=== PATIENT | female | born 1955 | race Caucasian/White ===

== ENCOUNTER 2024-03-07 19:23 | Inpatient (IN) | payer MEDICARE, MEDICAID, SELFPAY ==
[2024-03-07] VITALS (7 sets, daily range): BP systolic 155–200; BP diastolic 87–102; PULSE 74–85; RESP 15–18; TEMP 36.4–36.8; O2SAT 95–98; BMI 22.8
--- NOTE | 2024-03-07 19:53 | EDS_ITS ---
HPI History of Present Illness Chief Complaint: Fall Detail of Chief Complaint: Fall with left leg injury Informant: patient Narrative Narrative: Patient presents to the emergency department via EMS from home after falling off of about a 3 foot ladder while she was trying to hang up some curtain anders holders. Patient states that she pushed off a dresser so she would not hit her head and fell with her weight on her left leg injuring it. Denies striking her head or loss of consciousness. Denies neck pain. Nuys chest pain or shortness of breath. Denies any other complaints. Patient had surgery on her left hip after a fracture in [place] 4 years ago. She does not have a primary care physician. [facility] Medical History (Updated 03/07/24 @ 21:[address] Isela Isaac, ) Hip fracture, left Varicose vein of leg Carotid arterial disease Hypertension Home Medications ?Medication ?Instructions ?Recorded ?Last Taken ?Type amlodipine 10 mg tablet 10 mg PO DAILY 03/07/24 Unknown History aspirin 81 mg capsule 81 mg PO DAILY 03/07/24 Unknown History atorvastatin 80 mg tablet 80 mg PO DAILY 03/07/24 Unknown History levothyroxine 100 mcg tablet 100 mcg PO DAILY 03/07/24 Unknown History Allergy/AdvReac Type Severity Reaction Status Date / Time No Known Allergies Allergy Verified 03/07/24 19:25 Social History Smoking Status: Current every day smoker tobacco type: cigarettes ROS ROS ED Review of Systems ROS Unobtainable: other Constitutional Constitutional ED: Reports lethargy; Denies chills, fever(s), sweats or weight loss Eyes Eyes: Denies blurry vision, change in vision or diplopia ENT ENT ED: Denies rhinorrhea or sore throat Cardiovascular Cardiovascular: Denies chest pain, orthopnea or racing heartbeat Respiratory/Chest Respiratory/Chest: Denies cough, dyspnea, dyspnea on exertion, orthopnea or sputum Gastrointestinal Gastrointestinal: Denies abdominal pain, diarrhea, nausea or vomiting Genitourinary Genitourinary ED: Denies dysuria, hematuria or urinary frequency Musculoskeletal Musculoskeletal: Reports other Details: Left leg pain/injury ; Denies arthralgias, back pain, myalgias or neck pain Integumentary Denies abscess, Abrasions or rash Neurologic Neurologic: Denies headache(s) or weakness Psychiatric Psychiatric: Denies anxiety, depression or suicidal thoughts Endocrine Endocrinology: Denies polydipsia, polyphagia or polyuria Hematologic/Lymphatic Hematologic/Lymphatic: Denies easy bleeding, easy bruising or lymphadenopathy Allergic/Immunologic Allergic/Immunologic ED: Denies mouth swelling, tongue swelling or urticaria EXAM Physical Exam Const Vital Signs: 03/07/24 19:24 03/07/24 19:24 03/07/24 20:24 Temperature 98.3 F Temperature Source Temporal Pulse Rate 81 75 Respiratory Rate 16 18 Respiratory Effort Normal Non-Labored Respiratory Depth Normal Respiratory Pattern Normal Blood Pressure 172/100 H 200/102 H Blood Pressure Mean 124 134 Pulse Ox 98 98 Oxygen Delivery Method Room Air Room Air Room Air 03/07/24 21:00 03/07/24 21:07 Temperature 97.8 F Temperature Source Pulse Rate 85 85 Respiratory Rate 16 16 Respiratory Effort Respiratory Depth Respiratory Pattern Blood Pressure 176/97 H 176/97 H Blood Pressure Mean 123 123 Pulse Ox 97 95 Oxygen Delivery Method Room Air Positive well nourished and well developed General Appearance ED: well developed and NAD HEENT Reports TM's clear and moist mucous membranes normocephalic and atraumatic; Negative for trauma or tenderness Tympanic Membrane ED: Yes TM's clear Eyes PERRL and EOMs intact bilaterally General Eye ED: Negative for pale conjunctiva or scleral icterus Neck no lymphadenopathy, supple and no JVD General: Negative for tenderness Chest Wall inspection of chest normal and palpation of chest normal Chest: Negative for tenderness Resp normal respiratory effort and clear to auscultation bilaterally Effort and Inspection: Negative for respiratory distress or pain with movement Auscultation: Negative for rhonchi, wheezes or diminished lung sounds Cardio regular rate, regular rhythm, S1 normal heart sound, S2 normal heart sound and no murmurs Peripheral Pulses: pulses 2+ throughout GI normal to inspection, nondistended, normoactive bowel sounds, soft to palpation, non-tender, non-distended and no masses Back/Spine no CVA tenderness and no thoracic nor lumbar tenderness Extremity Extremity Narrative: Left lower extremity-patient presents with a air splint on the left lower extremity. I removed the splint. She describes the pain is below the left knee. I do not appreciate any obvious deformity. There is no broken skin. She is able to flex and extend the knee. She has some mild tenderness over the proximal tibia. Neurovascularly intact distally. No pain at the hip. General Extremety ED: Negative for edema General Extremity: Negative for edema Neuro oriented x3, CN's II-XII intact bilaterally, no sensory deficits noted and gait normal Sensorium / Orientation: awake, alert, oriented to person, oriented to place and oriented to time Motor Exam: strength 5/5 throughout and strength abnormal Psych mental status grossly normal Skin no rashes or lesions noted and no wounds MDM MDM MDM Narrative Medical decision making narrative: Patient with a low level fall about 3 feet from a ladder with injury to left leg. No head injury. No loss of consciousness. Not anticoagulated. Patient had x-rays initially of the left knee and left tib-fib which showed a tibial plateau fracture and proximal fibula fracture. Discussed results with patient. Discussed with orthopedics Dr. Lin. Discussed with hospitalist will evaluate patient for admission as patient does not feel she can manage at home with crutches. Dr. Lin will consult. Will place patient in knee immobilizer and manage pain. Will obtain basic labs and EKG. Lab Data Attestation: I reviewed the patient's lab results. Labs: Laboratory Results - last 24 hr 03/07/24 21:35 WBC 9.2 RBC 5.46 H Hgb 17.1 H Hct 51.2 H MCV 93.8 MCH 31.3 MCHC 33.4 RDW Std Deviation 45.8 H RDW Coeff of Luis 13.3 Plt Count 311 MPV 8.9 Immature Gran % (Auto) 0.300 Neut % (Auto) 73.5 H Lymph % (Auto) 15.7 L Glascock % (Auto) 8.1 Eos % (Auto) 1.3 Baso % (Auto) 1.1 H Absolute Neuts (auto) 6.8 Absolute Lymphs (auto) 1.44 Nucleated RBC % 0 Radiography Diagnostic Testing: Clinical Impression(s) from Imaging Studies Knee X-Ray 03/07/24 20:09 IMPRESSION: 1. Comminuted intra-articular fracture of the lateral tibial plateau with moderate articular surface incongruity. Fracture appears view extending to the median aspect of the medial tibial plateau as well. 2. Lateral hemarthrosis. 3. Apparently comminuted fracture of the proximal fibula. Electronically Signed: Oral Dennison DO at 20:33 EDT , Tibia/Fibula X-Ray 03/07/24 20:09 IMPRESSION: 1. Comminuted intra-articular fracture of the lateral tibial plateau with moderate articular surface incongruity. Fracture appears view extending to the median aspect of the medial tibial plateau as well. 2. Lateral hemarthrosis. 3. Apparently comminuted fracture of the proximal fibula. Electronically Signed: Oral Dennison DO at 20:32 EDT , 4 view x-rays of the left knee obtained shows lateral tibial plateau fracture and proximal fibula fracture on my interpretation. Radiology in agreement. 2 view x-rays of the left tib-fib obtained interpreted by myself as tibial plateau fracture and proximal fibula fracture. EKG Initial EKG: Attestation: I personally reviewed and interpreted this EKG as follows: Comments: Sinus rhythm with rate of [address] changes Discharge Plan Dx/Rx/DC Orders Clinical Impression: Fall, Fracture of left tibial plateau, Fracture of fibula, proximal Disposition Disposition: Acute Care Hospital [facility]
--- NOTE | 2024-03-07 20:09 | RAD_ITS ---
EXAM: XR LEFT TIBIA AND FIBULA, 2 VIEWS CLINICAL INDICATION: injury pain. TECHNIQUE: Frontal and lateral views of the left tibia and fibula. COMPARISON: Knee radiograph on the same date. FINDINGS: BONES/JOINTS: Comminuted intra-articular fracture of the lateral tibial plateau with moderate articular surface incongruity. Fracture appears view extending to the median aspect of the medial tibial plateau as well. Lateral hemarthrosis. Apparently comminuted fracture of the proximal fibula. No sclerotic or destructive changes observed. SOFT TISSUES: Diffuse periarticular soft tissue swelling. No radiopaque foreign body. RAD/Tibia & Fibula 2 Views IMPRESSION: 1. Comminuted intra-articular fracture of the lateral tibial plateau with moderate articular surface incongruity. Fracture appears view extending to the median aspect of the medial tibial plateau as well. 2. Lateral hemarthrosis. 3. Apparently comminuted fracture of the proximal fibula. Electronically Signed: Oral Dennison DO at 20:32 EDT ,
--- NOTE | 2024-03-07 20:09 | RAD_ITS ---
EXAM: XR LEFT KNEE, 1 OR 2 VIEWS CLINICAL INDICATION: injury pain. TECHNIQUE: Frontal and/or lateral views of the left knee. COMPARISON: Leg on the same date. FINDINGS: BONES/JOINTS: Comminuted intra-articular fracture of the lateral tibial plateau with moderate articular surface incongruity. Fracture appears view extending to the median aspect of the medial tibial plateau as well. Lateral hemarthrosis. Apparently comminuted fracture of the proximal fibula. No sclerotic or destructive changes observed. SOFT TISSUES: Diffuse periarticular soft tissue swelling. No radiopaque foreign body. RAD/Knee 1 or 2 Views IMPRESSION: 1. Comminuted intra-articular fracture of the lateral tibial plateau with moderate articular surface incongruity. Fracture appears view extending to the median aspect of the medial tibial plateau as well. 2. Lateral hemarthrosis. 3. Apparently comminuted fracture of the proximal fibula. Electronically Signed: Oral Dennison DO at 20:33 EDT ,
--- NOTE | 2024-03-07 21:22 | HP.PCM.HOS_ITS ---
HPI - General General Date of Admission: 03/07/24 Date of Service: 03/07/24 Chief Complaint: Fall, left leg pain. HPI Narrative The patient is a 68 y/o F w/ PMHx: Tobacco use, HTN, HLD, Hypothyroidism, Carotid disease status post right CEA who presents to the [facility] ED on 03/07/24 with history of unfortunately falling off approximately 3 foot ladder while trying to hang a curtain rods reportedly pushing off of the dresser so that she would not hit her head with her weight unfortunately landing primarily on her left leg with no head trauma or loss of consciousness however given ongoing persistent pain prompted ED evaluation. She does report previous history of surgery on her left hip after a fracture remotely 4 years ago in [place]. She denies having any primary care physician and does not take any medications. Patient reports discomfort currently at rest following morphine 4-5 out of 10 in severity of a previous 10 out of 10 especially with any movement, aching throbbing and sharp at the same time. Workup in the ED included T97.8, heart rate 85, BP 176/97, respiratory rate 16, 95% room air, plain film of the left knee with a comminuted intra-articular fracture of the lateral tibial plateau with moderate articular surface incongruity with the fracture extending to the medial aspect of the medial tibial plateau as well, lateral hemarthroses, apparently comminuted fracture of the proximal fibula, plain film of the left tibia and fibula confirming this as well. ED discussed case with Dr. Lin. Discussed presentation with ED physician and EKG as well as baseline labs were obtained with noted potassium 3.0, BUN/creatinine 21/1.61, GFR 34 with no clear comparisons unfortunately. [facility] Medical History CKD (chronic kidney disease) Cannabis use disorder HLD (hyperlipidemia) Tobacco use Carotid arterial disease Hypertension Home Medications ?Medication ?Instructions ?Recorded ?Last Taken ?Type amlodipine 10 mg tablet 10 mg PO DAILY htn 03/07/24 Unknown History aspirin 81 mg capsule 81 mg PO DAILY blood thinner 03/07/24 Unknown History atorvastatin 80 mg tablet 80 mg PO DAILY hld 03/07/24 Unknown History levothyroxine 100 mcg tablet 100 mcg PO DAILY thyroid 03/07/24 Unknown History Allergy/AdvReac Type Severity Reaction Status Date / Time No Known Allergies Allergy Verified 03/07/24 19:25 Family History (Updated 03/08/24 @ 00:[address] Tere Brown MD) Mother Hypertension Pulmonary fibrosis Father Hypertension Heart disease Diabetes Surgical History (Updated 03/08/24 @ 00:[address] Tere Brown MD) History of CEA (carotid endarterectomy) History of hip surgery Social History (Updated 03/08/24 @ 00:[address] Tere Brown MD) household members: family Smoking Status: Current every day smoker tobacco type: cigarettes alcohol intake: never substance use type: marijuana ROS ROS Narrative Admission Review of Systems: CONSTITUTIONAL: No weight loss, fever, chills, + weakness or fatigue. HEENT: Eyes: No visual loss, blurred vision, double vision or yellow sclerae. Ears, Nose, Throat: No hearing loss, sneezing, congestion, runny nose or sore throat. SKIN: No rash or itching, lesions, wounds except + occasional abrasion, ecchymoses. CARDIOVASCULAR: No chest pain, chest pressure or chest discomfort, palpitations, edema, orthopnea, syncopal events. RESPIRATORY: No shortness of breath, cough or sputum, wheezing, hemoptysis. GASTROINTESTINAL: + anorexia, nausea. No vomiting or diarrhea, abdominal pain, melena, BRBPR. GENITOURINARY: No dysuria, frequency, urgency or retention. NEUROLOGICAL: No headache, dizziness, syncope, paralysis, ataxia, numbness or tingling in the extremities, focal weakness, change in bowel or bladder control, seizure. MUSCULOSKELETAL: + muscle, back pain, joint pain or stiffness. HEMATOLOGIC: No anemia, bleeding or bruising. LYMPHATICS: No enlarged nodes. No history of splenectomy. PSYCHIATRIC: No history of depression or anxiety. ENDOCRINOLOGIC: No reports of sweating, cold or heat intolerance. No polyuria or polydipsia. ALLERGIES: No history of asthma, hives, eczema or rhinitis. Vital Signs Vital Signs Vital Signs: 03/07/24 19:24 03/07/24 19:24 03/07/24 20:24 Temperature 98.3 F Temperature Source Temporal Pulse Rate 81 75 Respiratory Rate 16 18 Respiratory Effort Normal Non-Labored Respiratory Depth Normal Respiratory Pattern Normal Blood Pressure 172/100 H 200/102 H Blood Pressure Mean 124 134 Pulse Ox 98 98 Oxygen Delivery Method Room Air Room Air Room Air 03/07/24 21:00 03/07/24 21:07 Temperature 97.8 F Temperature Source Pulse Rate 85 85 Respiratory Rate 16 16 Respiratory Effort Respiratory Depth Respiratory Pattern Blood Pressure 176/97 H 176/97 H Blood Pressure Mean 123 123 Pulse Ox 97 95 Oxygen Delivery Method Room Air Weight Weight: 117 lb 4.575 oz Body Mass Index (BMI) 22.8 Physical Exam Narrative Physical Examination: General: Awake, alert, oriented x 3 and cooperative, seated upright in the ED bed, fatigued, ongoing pain to the left knee, worse with any movement attempts. Skin: Normal color, normal turgor, no icterus, no cyanosis except occasional staged ecchymoses, abrasion. HEENT: AT/NC, EOMI, PERRLA, dry MM, no carotid bruits or JVD noted. Lungs: Diminished, greater bases, appropriate effort, no rales, ronchi or wheezing. Heart: Regular rate and rhythm; no gallop, rub audible. Abdomen: Soft, NTTP, ND, mildly hyperactive BS, no HSM. Extremities: No cyanosis, no clubbing, no marked peripheral edema, status post fall with left tibial plateau fracture with mild swelling to the left knee, peripheral pulses intact Neurological: Patient awake, alert, oriented as noted, cognitive function intact; pupils equally reactive to light and accommodation, cranial nerves gross normal, moving all 4 extremities except extremely limited movement left lower extremity given fall with fractures as noted, strength accordingly moderately to severely global decreased Psychiatric: Affect appears fatigued, uncomfortable, no acute evidence of depressive or anxiety feelings. Results Lab / Micro Data 03/07/24 21:35 03/07/24 21:35 Imaging Radiology Impression Knee X-Ray 03/07/24 20:09 IMPRESSION: 1. Comminuted intra-articular fracture of the lateral tibial plateau with moderate articular surface incongruity. Fracture appears view extending to the median aspect of the medial tibial plateau as well. 2. Lateral hemarthrosis. 3. Apparently comminuted fracture of the proximal fibula. Electronically Signed: Oral Dennison DO at 20:33 EDT , Tibia/Fibula X-Ray 03/07/24 20:09 IMPRESSION: 1. Comminuted intra-articular fracture of the lateral tibial plateau with moderate articular surface incongruity. Fracture appears view extending to the median aspect of the medial tibial plateau as well. 2. Lateral hemarthrosis. 3. Apparently comminuted fracture of the proximal fibula. Electronically Signed: Oral Dennison, DO at 20:32 EDT , Assessment & Plan Assessment/Plan (1) Fall: (2) Fracture of left tibial plateau: (3) Fracture of fibula, proximal: PLAN: Plan The patient is a 68 y/o F w/ PMHx: Tobacco use, HTN, HLD, Hypothyroidism, Carotid disease status post right CEA who presents to the [facility] ED on 03/07/24 with history of unfortunately falling off approximately 3 foot ladder while trying to hang a curtain rods reportedly pushing off of the dresser so that she would not hit her head with her weight unfortunately landing primarily on her left leg with no head trauma or loss of consciousness however given ongoing persistent pain prompted ED evaluation. #1. Mechanical fall with an acute comminuted intra-articular fracture of the lateral tibial plateau with extension to the medial aspect of the medial tibial plateau with lateral hemarthroses as well as a commuted fracture of the proximal fibula: Will admit to medical surgical floor, maintain on fall precautions, maintain nonweightbearing to the left lower extremity, continue immobilizer initiated in the ED, initiate crutch training with crutches to be administered, n.p.o. status after midnight pending surgery evaluation although suspect that likely this may be followed outpatient but to be cautious will maintain in case operative intervention is necessary, judiciously hydrate, as needed pain regimen, antiemetic regimen. EKG pending. #2. Hypokalemia: Admission K+ 3.0, magnesium level requested, supplementation given, repeat level in AM. #3. Suspected underlying CKD stage III but no comparison labs thus uncertain, potentially acute kidney injury versus renal insufficiency: Admission BUN/creatinine 21/1.61, GFR of 34, no comparison, given no recent reason for REJI or renal insufficiency higher assumption that this is chronic but will trend CMP to further elucidate. #4. Hypertension: Continue home regimen including amlodipine, PRN hydralazine. #5. Hyperlipidemia: We will continue patient on statin therapy #6. Hypothyroidism: Will 20 patient on levothyroxine regimen. #7. Carotid disease: Status post right CEA, will continue aspirin, statin, hypertensive regimen as noted. #8. DVT prophylaxis: SCDs, defer chemoprophylaxis pending surgery evaluation to be cautious. #9. CODE status: Patient does not have healthcare power of prenatal nurse or living will in place but notes her sister who is present would be her decision-maker if necessary. Discussed CODE status at length including difference between FULL code, DNR-CCA and DNR-CC status. Following discussions about the differences in these status, requested Full Code status. Advanced Care Planning Face to Face Time: 16 minutes. Charges/Coding Visit Charges Inpatient E&M: 55019 Init Hosp L3 Procedures Hospitalists Procedures: 27680 Advncd Care Plan 30 Min
--- NOTE | 2024-03-07 21:26 | EKG12_ITS ---
Test Reason : Blood Pressure : / mmHG Vent. Rate : 072 BPM Atrial Rate : 072 BPM P-R Int : 118 ms QRS Dur : 094 ms QT Int : 444 ms P-R-T Axes : 063 -40 031 degrees QTc Int : 486 ms Normal sinus rhythm Left axis deviation Minimal voltage criteria for LVH, may be normal variant ( Jagjit product ) ST & T wave abnormality, consider anterolateral ischemia Abnormal ECG Confirmed by NICK BRICENO, JOSLYN ([id number]), copy editor MARIBEL DE SANTIAGO ([id number]) on 03/08/2024 1:51:51 PM Referred By: Confirmed By:JOSLYN ROMERO MD
[2024-03-07 21:41] LABS: Absolute Lymphocyte Count 1.44 X10^3/uL (0.83-4.51); Absolute Neutrophil Count 6.8 X10^3/uL (2.0-7.7); Basophil% 1.1 % (0-1); Eosinophil# 0.12 X10^3/uL; Eosinophils% 1.3 % (0-5); Hematocrit 51.2 % (37-47); Hemoglobin 17.1 g/dL (12.0-15.0); Lymphocyte # 1.44 X10^3/ul (0.83-4.51); Lymphocyte % 15.7 % (19-41); Mean Corp Hgb Conc 33.4 g/dL (32-36); Mean Corpuscular Hgb 31.3 pg (27.0-32.0); Mean Corpuscular Volume 93.8 fL (81-99); Mean Platelet Vol. 8.9 fl (6.2-12.0); Monocyte# 0.74 X10^3/uL; Monocyte% 8.1 % (0-10); NRBC Flagged by Analyzer 0 % (0-5); Neutrophil # 6.75 X10^3/uL (2.7-7.7); Neutrophil % 73.5 % (47-70); Platelet Count 311 K/mm3 (150-450); RBC Distribution Width CV 13.3 % (11.6-14.6); RBC Distribution Width SD 45.8 fl (35.1-43.9); Red Blood Count 5.46 M/mm3 (4.2-5.4); White Blood Count 9.2 K/mm3 (4.4-11.0)
[2024-03-07] MEDS: Ondansetron 4 MG/2 ML Vial IV (21:46)
[2024-03-07] MEDS: Morphine 4 MG/ML Syringe IV ×2 (21:46→23:18)
[2024-03-07 22:06] LABS: Anion Gap 7 (5-15); BUN 21 mg/dL (7-18); Calcium,Total 9.2 mg/dL (8.5-10.1); Chloride 104 mmol/L (98-107); Creatinine, Serum 1.61 mg/dL (0.55-1.02); EST Glomerular Filtration Rate 34 mL/min (>60); Est Glom Filt Rate - Afr Amer 41 mL/min (>60); Estimated Creatinine Clearance 24.36 ml/min; Glucose 110 mg/dL (74-106); Sodium Level 138 mmol/L (136-145)
[2024-03-07] MEDS: 0.9% Normal Saline (1000mL) 1,000 ML 100 ML IV (23:19)
[2024-03-08] MEDS: MELATONIN 3 MG TABLET PO (00:10)
[2024-03-08] MEDS: Senna/Docusate Sodium 1 Tablet 2 TABLET PO ×3 (00:11→20:12)
[2024-03-08 01:05] LABS: Magnesium 2.1 mg/dL (1.6-2.6)
[2024-03-08 02:26] VITALS: BP 150/92; PULSE 75; RESP 15; TEMP 36.8; O2SAT 95
[2024-03-08] MEDS: Potassium Chloride Oral Tablet 20 MEQ 40 MEQ PO (02:28)
[2024-03-08] MEDS: Morphine 4 MG/ML Syringe IV ×6 (02:31→23:22)
[2024-03-08 06:00] VITALS: BMI 25.7
[2024-03-08] MEDS: Levothyroxine 100 MCG Tablet PO (06:41)
[2024-03-08 06:56] VITALS: BMI 25.7
[2024-03-08 07:09] LABS: Absolute Lymphocyte Count 1.69 X10^3/uL (0.83-4.51); Absolute Neutrophil Count 8.1 X10^3/uL (2.0-7.7); Basophil# 0.07 X10^3/uL; Basophil% 0.6 % (0-1); Eosinophil# 0.12 X10^3/uL; Eosinophils% 1.1 % (0-5); Hematocrit 49.2 % (37-47); Hemoglobin 16.5 g/dL (12.0-15.0); Lymphocyte # 1.69 X10^3/ul (0.83-4.51); Lymphocyte % 15.3 % (19-41); Mean Corp Hgb Conc 33.5 g/dL (32-36); Mean Corpuscular Hgb 31.7 pg (27.0-32.0); Mean Corpuscular Volume 94.4 fL (81-99); Mean Platelet Vol. 9.4 fl (6.2-12.0); Monocyte# 1.03 X10^3/uL; Monocyte% 9.3 % (0-10); NRBC Flagged by Analyzer 0 % (0-5); Neutrophil # 8.08 X10^3/uL (2.7-7.7); Neutrophil % 73.2 % (47-70); Platelet Count 292 K/mm3 (150-450); RBC Distribution Width CV 13.3 % (11.6-14.6); RBC Distribution Width SD 46.5 fl (35.1-43.9); Red Blood Count 5.21 M/mm3 (4.2-5.4)
--- NOTE | 2024-03-08 07:38 | PN.HOSP_ITS ---
Reason for Visit Reason for Visit: Diagnoses Displaced bicondylar fracture of left tibia, initial encounter for closed fracture (03/07/24) Other fracture of upper and lower end of unspecified fibula, initial encounter for closed fracture (03/07/24) Unspecified fall, initial encounter (03/07/24) Objective Data Objective Data Vital Signs: Vital Signs Temp Pulse Resp BP Pulse Ox O2 Del Method 98.3 F 75 15 150/92 H 95 Room Air 03/08/24 02:03/08/24 02:03/08/24 02:03/08/24 02:03/08/24 02:03/08/24 05:03 Oxygen Delivery Method Room Air Weight: 130 lb 15.273 oz Body Mass Index (BMI) 25.7 Intake & Output: Intake and Output for Last 24 Hours 03/06/24 03/07/24 03/08/24 23:59 23:59 23:59 Intake Total 0 / 100 100 / 100 Output Total 300 / 300 Balance 0 / 100 -200 / -200 Lab / Micro Data 03/08/24 06:32 03/08/24 06:32 Labs: Laboratory Results - last 24 hr 03/07/24 21:35: WBC 9.2, RBC 5.46 H, Hgb 17.1 H, Hct 51.2 H, MCV 93.8, MCH 31.3, MCHC 33.4, RDW Std Deviation 45.8 H, RDW Coeff of Luis 13.3, Plt Count 311, MPV 8.9, Immature Gran % (Auto) 0.300, Neut % (Auto) 73.5 H, Lymph % (Auto) 15.7 L, [place] % (Auto) 8.1, Eos % (Auto) 1.3, Baso % (Auto) 1.1 H, Absolute Neuts (auto) 6.8, Absolute Lymphs (auto) 1.44, Nucleated RBC % 0, Sodium 138, Potassium 3.0 L , Chloride 104, Carbon Dioxide 27.0, Anion Gap 7, BUN 21 H, Creatinine 1.61 H, Estim Creat Clear Calc 24.36, Est GFR (MDRD) Af Amer 41 L, Est GFR (MDRD) Non-Af 34 L, BUN/Creatinine Ratio 13.0, Glucose 110 H, Calcium 9.2, Magnesium 2.1 03/08/24 06:32: WBC 11.0, RBC 5.21, Hgb 16.5 H, Hct 49.2 H, MCV 94.4, MCH 31.7, MCHC 33.5, RDW Std Deviation 46.5 H, RDW Coeff of Luis 13.3, Plt Count 292, MPV 9.4, Immature Gran % (Auto) 0.500, Neut % (Auto) 73.2 H, Lymph % (Auto) 15.3 L, [place] % (Auto) 9.3, Eos % (Auto) 1.1, Baso % (Auto) 0.6, Absolute Neuts (auto) 8.1 H, Absolute Lymphs (auto) 1.69, Nucleated RBC % 0 Radiography Diagnostic Testing: Radiology Impression Knee X-Ray 03/07/24 20:09 IMPRESSION: 1. Comminuted intra-articular fracture of the lateral tibial plateau with moderate articular surface incongruity. Fracture appears view extending to the median aspect of the medial tibial plateau as well. 2. Lateral hemarthrosis. 3. Apparently comminuted fracture of the proximal fibula. Electronically Signed: Oral AlanizDrew Dennison DO at 20:33 EDT , Tibia/Fibula X-Ray 03/07/24 20:09 IMPRESSION: 1. Comminuted intra-articular fracture of the lateral tibial plateau with moderate articular surface incongruity. Fracture appears view extending to the median aspect of the medial tibial plateau as well. 2. Lateral hemarthrosis. 3. Apparently comminuted fracture of the proximal fibula. Electronically Signed: Oral Villalbadiane at 20:32 EDT , Physical Exam Narrative Seen and examined. Patient fell off the step and has fracture of left tibial plateau, fracture line extending to intra-articular region. On knee immobilizer. No LOC Physical exam General: Alert, Oriented x3, Cooperative HEENT: Atraumatic, PERRLA, EOMI, Normocephalic Oral: No Gingival or Mucosal Lesions/ Ulcerations Neck: Supple, No JVD, Negative Carotid Bruits Chest wall/Lungs: Air entry diminished in bilateral lung bases. No crepitation/rhonchi Cardiovascular: Regular rate, Regular Rhythm, Normal S1, Normal S2, No M/G/R Abdomen: Bowel Sounds Present, Soft, Non Tender, Non-Distended : No dysuria. No renal angle tenderness. No suprapubic tenderness. Extremities: No edema, Capillary Refill Less than 3 Seconds Skin: No rashes, No breakdown Musculoskeletal: Left knee is swollen and very tender. On the immobilizer. No Tenderness to Palpation of other joints or Extremities Neurological: Cranial nerves II-XII grossly intact, DTR 2+/4. No acute focal neurological deficit. Psych/Mental Status: Flat affect. Assessment & Plan Assessment/Plan (1) Fall: (2) Fracture of left tibial plateau: (3) Fracture of fibula, proximal: PLAN: Plan The patient is a 68 y/o F admitted with fall off a 3 foot ladder on left leg injuring it. She denies hitting her head or LOC denies neck pain. No chest pain or shortness of breath. She had surgery on her left hip after fracture in [place] 4 years ago. #1. Mechanical fall with an acute comminuted intra-articular fracture of the lateral tibial plateau with extension to the medial aspect of the medial tibial plateau with lateral hemarthroses as well as a commuted fracture of the proximal fibula: Patient admitted to [facility] floor. On the immobilizer. Pain control. Orthopedic surgeon Dr. Jaziel collado consulted. Recommended fracture alignment appears at this point amenable to nonsurgical treatment. Nonweightbearing recommended for 6 weeks with maintenance of knee immobilizer. Should follow-up 1 week for repeat x-ray to ensure maintained alignment. Risk of malunion including posttraumatic arthritis. #2. Hypokalemia: Admission K+ 3.0 potassium replaced. Serum magnesium 2.1. #3. Suspected underlying CKD stage III B: Admission BUN/creatinine 21/1.61, GFR of 34, repeat BUN/creatinine today better 19/1.44. #4. Hypertension: Continue home regimen including amlodipine, PRN hydralazine. #5. Hyperlipidemia: continue patient on statin therapy #6. Hypothyroidism: patient on levothyroxine regimen. TSH high 41.4 but free T4 normal 1.05. #7. Carotid disease: Status post right CEA, will continue aspirin, statin, hypertensive regimen as noted. #8. DVT prophylaxis: SCDs, defer chemoprophylaxis pending surgery evaluation to be cautious. #9. CODE status: Patient does not have healthcare power of obstetric assistant or living will in place but notes her sister who is present would be her decision-maker if necessary. Discussed CODE status at length including difference between FULL code, DNR-CCA and DNR-CC status. Following discussions about the differences in these status, requested Full Code status. Laboratory Results 03/07/24 21:35: WBC 9.2, RBC 5.46 H, Hgb 17.1 H, Hct 51.2 H, MCV 93.8, MCH 31.3, MCHC 33.4, RDW Std Deviation 45.8 H, RDW Coeff of Luis 13.3, Plt Count 311, MPV 8.9, Immature Gran % (Auto) 0.300, Neut % (Auto) 73.5 H, Lymph % (Auto) 15.7 L, [place] % (Auto) 8.1, Eos % (Auto) 1.3, Baso % (Auto) 1.1 H, Absolute Neuts (auto) 6.8, Absolute Lymphs (auto) 1.44, Nucleated RBC % 0, Sodium 138, Potassium 3.0 L , Chloride 104, Carbon Dioxide 27.0, Anion Gap 7, BUN 21 H, Creatinine 1.61 H, Estim Creat Clear Calc 24.36, Est GFR (MDRD) Af Amer 41 L, Est GFR (MDRD) Non-Af 34 L, BUN/Creatinine Ratio 13.0, Glucose 110 H, Calcium 9.2, Magnesium 2.1 03/08/24 06:32: WBC 11.0, RBC 5.21, Hgb 16.5 H, Hct 49.2 H, MCV 94.4, MCH 31.7, MCHC 33.5, RDW Std Deviation 46.5 H, RDW Coeff of Luis 13.3, Plt Count 292, MPV 9.4, Immature Gran % (Auto) 0.500, Neut % (Auto) 73.2 H, Lymph % (Auto) 15.3 L, [place] % (Auto) 9.3, Eos % (Auto) 1.1, Baso % (Auto) 0.6, Absolute Neuts (auto) 8.1 H, Absolute Lymphs (auto) 1.69, Nucleated RBC % 0, Sodium 137, Potassium 3.7, Chloride 106, Carbon Dioxide 24.0, Anion Gap 7, BUN 19 H, Creatinine 1.44 H , Estim Creat Clear Calc 30.56, Est GFR (MDRD) Af Amer 47 L, Est GFR (MDRD) Non- Af 39 L, BUN/Creatinine Ratio 13.2, Glucose 134 H, Calcium 8.5, Phosphorus 2.8, Total Bilirubin 0.60, AST 26, ALT 22, Alkaline Phosphatase 73, Total Protein 7.2, Albumin 3.3, Globulin 3.9, Albumin/Globulin Ratio 0.8 L, TSH 41.400 H, Free T4 1.05 Charges/Coding Visit Charges Inpatient E&M: 43026 Subs Hosp L2
[2024-03-08 08:27] LABS: ALB/GLOB Ratio 0.8 RATIO (0.9-2.4); AST(SGOT) 26 U/L (15-37); Alanine Aminotransfer ALT/SGPT 22 U/L (13-56); Albumin, Serum 3.3 g/dL (3.2-5.0); Alkaline Phosphatase 73 U/L (45-117); Anion Gap 7 (5-15); BUN 19 mg/dL (7-18); BUN/Creat Ratio 13.2 RATIO (10-20); Calcium,Total 8.5 mg/dL (8.5-10.1); Chloride 106 mmol/L (98-107); Creatinine, Serum 1.44 mg/dL (0.55-1.02); EST Glomerular Filtration Rate 39 mL/min (>60); Est Glom Filt Rate - Afr Amer 47 mL/min (>60); Estimated Creatinine Clearance 30.56 ml/min; Globulin 3.9 g/dL (2.2-4.2); Glucose 134 mg/dL (74-106); Potassium 3.7 mmol/L (3.5-5.1); Protein, Total 7.2 g/dL (6.4-8.2); Sodium Level 137 mmol/L (136-145)
[2024-03-08 08:33] LABS: Phosphorus 2.8 mg/dL (2.5-4.9)
[2024-03-08 09:22] VITALS: BP 168/77; PULSE 77; RESP 18; TEMP 36.5; O2SAT 93
[2024-03-08] MEDS: 0.9% Saline Lock 10 ML Syringe IV ×3 (09:25→18:39)
[2024-03-08] MEDS: KCL 20MEQ in 0.45%NS 20 MEQ/1,000 ML IV.SOLN. 100 MEQ IV (09:31)
[2024-03-08] MEDS: Aspirin 81 MG TAB.CHEW PO (09:32)
[2024-03-08] MEDS: amLODIPine 10 MG Tablet PO (09:32)
--- NOTE | 2024-03-08 11:59 | CON.PCM.OR_ITS ---
HPI Consult Data Date of Consult: 03/08/24 HPI Narrative Reason for Consultation: Right tibial plateau fx HPI Narrative: GUILLERMINA BARRON, is a 68-year-old female smoker who sustained a fall from approximately 3 feet on a stepladder when she was trying to hang a curtain anders yesterday 03/07/24. She states the brunt of the fall force was sustained through her left leg and noted immediate severe left knee pain. She was unable to bear weight following injury. She denied any head injury or loss consciousness. Denies any other pain. She does have a history of left hip fracture 4 years ago in [place]. She denies any numbness or tingling. Patient's past medical history is significant for tobacco use, hypertension, hyperlipidemia, hypothyroidism, carotid artery disease status post CEA. I was contacted by the emergency department and I recommended a knee immobilizer nonweightbearing of the left knee with planned outpatient follow-up after x-rays revealed a split depression lateral tibial plateau fracture. Patient was unable to mobilize well in the emergency department and was placed on observation by the hospitalist for physical and Occupational Therapy possible placement. [facility] Medical History CKD (chronic kidney disease) Cannabis use disorder HLD (hyperlipidemia) Tobacco use Carotid arterial disease Hypertension Home Medications ?Medication ?Instructions ?Recorded ?Last Taken ?Type amlodipine 10 mg tablet 10 mg PO DAILY htn 03/07/24 Unknown History aspirin 81 mg capsule 81 mg PO DAILY blood thinner 03/07/24 Unknown History atorvastatin 80 mg tablet 80 mg PO DAILY hld 03/07/24 Unknown History levothyroxine 100 mcg tablet 100 mcg PO DAILY thyroid 03/07/24 Unknown History Allergy/AdvReac Type Severity Reaction Status Date / Time No Known Allergies Allergy Verified 03/07/24 19:25 Family History (Updated 03/08/24 @ 00:[address] Tere Brown MD) Mother Hypertension Pulmonary fibrosis Father Hypertension Heart disease Diabetes Surgical History (Updated 03/08/24 @ 00:[address] Tere Brown MD) History of CEA (carotid endarterectomy) History of hip surgery Social History (Updated 03/08/24 @ 00:[address] Tere Brown MD) household members: family Smoking Status: Current every day smoker tobacco type: cigarettes alcohol intake: never substance use type: marijuana Vital Signs Vital Signs Vital Signs: 03/07/24 19:24 03/07/24 19:24 03/07/24 20:24 Temperature 98.3 F Temperature Source Temporal Pulse Rate 81 75 Respiratory Rate 16 18 Respiratory Effort Normal Non-Labored Respiratory Depth Normal Respiratory Pattern Normal Blood Pressure 172/100 H 200/102 H Blood Pressure Mean 124 134 Blood Pressure Source Blood Pressure Position Blood Pressure Location Pulse Ox 98 98 Oxygen Delivery Method Room Air Room Air Room Air 03/07/24 21:00 03/07/24 21:07 03/07/24 22:00 Temperature 97.8 F Temperature Source Pulse Rate 85 85 81 Respiratory Rate 16 16 18 Respiratory Effort Respiratory Depth Respiratory Pattern Blood Pressure 176/97 H 176/97 H 155/96 H Blood Pressure Mean 123 123 115 Blood Pressure Source Blood Pressure Position Blood Pressure Location Pulse Ox 97 95 97 Oxygen Delivery Method Room Air Room Air 03/07/24 23:03 03/07/24 23:21 03/08/24 02:26 Temperature 97.6 F L 98.3 F Temperature Source Oral Oral Pulse Rate 74 75 Respiratory Rate 15 17 15 Respiratory Effort Normal Non-Labored Respiratory Depth Normal Respiratory Pattern Normal Blood Pressure 173/87 H 150/92 H Blood Pressure Mean 115 111 Blood Pressure Source Monitor Monitor Blood Pressure Position Semi-Fowlers Semi-Fowlers Blood Pressure Location Right Arm Right Arm Pulse Ox 96 95 Oxygen Delivery Method Room Air Room Air Room Air 03/08/24 05:03 03/08/24 07:48 03/08/24 09:22 Temperature 97.7 F L Temperature Source Oral Pulse Rate 77 Respiratory Rate 18 Respiratory Effort Normal Non-Labored Respiratory Depth Normal Respiratory Pattern Normal Blood Pressure 168/77 H Blood Pressure Mean 107 Blood Pressure Source Monitor Blood Pressure Position Semi-Fowlers Blood Pressure Location Right Arm Pulse Ox 93 Oxygen Delivery Method Room Air Room Air Room Air 03/08/24 09:35 Temperature Temperature Source Pulse Rate Respiratory Rate Respiratory Effort Normal Non-Labored Respiratory Depth Normal Respiratory Pattern Normal Blood Pressure Blood Pressure Mean Blood Pressure Source Blood Pressure Position Blood Pressure Location Pulse Ox Oxygen Delivery Method Room Air Weight Weight: 130 lb 15.273 oz Body Mass Index (BMI) 25.7 Physical Exam Narrative General -A&Ox3, NAD, appears stated age. Vital signs stable, afebrile. Respiratory -normal work of breathing, no intercostal retractions. CV -pulses regular, brisk capillary refill ?4 limbs. Abdomen-soft, nontender, nondistended. No guarding, rigidity, rebound tenderness. Musculoskeletal/neurologic -full range of motion nontender throughout bilateral upper extremities, right lower extremity with full sensation and strength in all dermatomes and myotomes. No midline cervical tenderness. Left lower extremity: Knee immobilizer in place. Immobilizer removed for inspection. Focal tenderness over the proximal tibia, laterally. No gross deformity. Sensation intact light touch L3-S1 dermatomes. DF, PF, EHL motor intact. DP 2+, brisk capillary fill in the toes. Compartments are soft and compressible. No obvious ecchymosis. Effusion is noted left knee. Lab / Micro Data 03/08/24 06:32 03/08/24 06:32 Labs: Laboratory Results - last 24 hr 03/07/24 21:35: WBC 9.2, RBC 5.46 H, Hgb 17.1 H, Hct 51.2 H, MCV 93.8, MCH 31.3, MCHC 33.4, RDW Std Deviation 45.8 H, RDW Coeff of Luis 13.3, Plt Count 311, MPV 8.9, Immature Gran % (Auto) 0.300, Neut % (Auto) 73.5 H, Lymph % (Auto) 15.7 L, [place] % (Auto) 8.1, Eos % (Auto) 1.3, Baso % (Auto) 1.1 H, Absolute Neuts (auto) 6.8, Absolute Lymphs (auto) 1.44, Nucleated RBC % 0, Sodium 138, Potassium 3.0 L , Chloride 104, Carbon Dioxide 27.0, Anion Gap 7, BUN 21 H, Creatinine 1.61 H, Estim Creat Clear Calc 24.36, Est GFR (MDRD) Af Amer 41 L, Est GFR (MDRD) Non-Af 34 L, BUN/Creatinine Ratio 13.0, Glucose 110 H, Calcium 9.2, Magnesium 2.1 03/08/24 06:32: WBC 11.0, RBC 5.21, Hgb 16.5 H, Hct 49.2 H, MCV 94.4, MCH 31.7, MCHC 33.5, RDW Std Deviation 46.5 H, RDW Coeff of Luis 13.3, Plt Count 292, MPV 9.4, Immature Gran % (Auto) 0.500, Neut % (Auto) 73.2 H, Lymph % (Auto) 15.3 L, [place] % (Auto) 9.3, Eos % (Auto) 1.1, Baso % (Auto) 0.6, Absolute Neuts (auto) 8.1 H, Absolute Lymphs (auto) 1.69, Nucleated RBC % 0, Sodium 137, Potassium 3.7, Chloride 106, Carbon Dioxide 24.0, Anion Gap 7, BUN 19 H, Creatinine 1.44 H , Estim Creat Clear Calc 30.56, Est GFR (MDRD) Af Amer 47 L, Est GFR (MDRD) Non- Af 39 L, BUN/Creatinine Ratio 13.2, Glucose 134 H, Calcium 8.5, Phosphorus 2.8, Total Bilirubin 0.60, AST 26, ALT 22, Alkaline Phosphatase 73, Total Protein 7.2, Albumin 3.3, Globulin 3.9, Albumin/Globulin Ratio 0.8 L, TSH 41.400 H Imaging Radiology Impression Knee X-Ray 03/07/24 20:09 IMPRESSION: 1. Comminuted intra-articular fracture of the lateral tibial plateau with moderate articular surface incongruity. Fracture appears view extending to the median aspect of the medial tibial plateau as well. 2. Lateral hemarthrosis. 3. Apparently comminuted fracture of the proximal fibula. Electronically Signed: Oral Dennison DO at 20:33 EDT , Tibia/Fibula X-Ray 03/07/24 20:09 IMPRESSION: 1. Comminuted intra-articular fracture of the lateral tibial plateau with moderate articular surface incongruity. Fracture appears view extending to the median aspect of the medial tibial plateau as well. 2. Lateral hemarthrosis. 3. Apparently comminuted fracture of the proximal fibula. Electronically Signed: Oral Dennison DO at 20:32 EDT , Assessment & Plan Assessment/Plan (1) Fracture of left tibial plateau: QUALIFIERS: Encounter type: initial encounter Fracture type: ender losetejas Qualified Code(s): S82.142A - Displaced bicondylar fracture of left tibia, initial encounter for closed fracture PLAN: Patient seen and examined. X-rays were reviewed. Fracture alignment appears at this point amenable to nonsurgical treatment. I recommended nonweightbearing x 6 weeks and maintenance of knee immobilizer. Will attempt to mobilize patient with physical occupational therapy. I will defer to PT/OT regarding walker versus crutches. Patient should follow-up within 1 week for repeat x-rays to ensure maintained alignment. We discussed the risks of malunion including posttraumatic arthritis. She is amenable to the above plan. We will plan to see the patient in the office at some point next week. Knee immobilizer should be left in place at all times, okay to open and cleansed the skin with a sponge bath, otherwise no bending of the knee and no weightbearing of the left leg. If any questions or concerns arise please do not hesitate to contact me. At this point, I will plan to sign off.
[2024-03-08 12:00] LABS: T4 Free Direct 1.05 ng/dL (0.76-1.46)
--- NOTE | 2024-03-08 13:15 | CASEMGMT ---
TESHA SUBRAMANIAN Assessment: Face to Face with pt for initial transition planning/care coordination assessment. TESHA SUBRAMANIAN introduced self and role at [facility], pt voices understanding and consents to assessment. Pt is A&O x4 and answers all questions appropriately at this time. Pt sister present and pt asks for the questions to be asked to sister so pt can rest. Pt did chime in on some questions. Care providers, pharmacy, and demographics verified/updated. Admitting Dx: fall, L tibial plateau fx Strata Score: 1 PCP:Pt does not have PCP as she moved from [place] in January. Pt is trying to get in to her sister's PCP- Dr. Goodson. Provided pt with a local healthcare directory pamphlet. Specialists:denies Preferred Pharmacy:[facility] Insurance: [employer] GRICELDA Rivero Prescription Benefit: yes LNOK: Leena Piers, sister Living Arrangements: Pt lives with sister in a mobile home with 5+1 steps to enter. The 5 steps have a rail. Prior to this hospitalization pt was completely I in ADL/IADLs. Transportation: Pt drives self and denies concerns with transportation. Pt sister is able to transport pt. DME:Pt sister has a w/c that someone is borrowing and she plans to get this back. HHC/SNF: Denies hx of Pt states no concerns with going home at time of dc. Sister is able to assist pt. Pt is nonweight bearing. Pt has not been eval'd by therapy yet. Discussed a verbal list of local DME companies should DME be needed, pt chose [employer]. Pt and sister state no further concerns/needs. CM to follow. Advised pt to ask CM if any further question/concerns/needs arise, voices understanding. Pt Goal: Home Plan: Home pending therapy recommendations, follow for needed DME Margaux PARKINSON CM
[2024-03-08 14:15] VITALS: BP 163/91; PULSE 77; RESP 16; TEMP 36.7; O2SAT 94
--- NOTE | 2024-03-08 15:43 | CHAPLAIN ---
Type of Pastoral Visit _x__ Initial Visit ___ Follow-up Visit ___ On-call Visit ___ General Patient Visit ___ Spiritual Assessment ___ Family Conference ___ Bereavement ___ Rapid Response ___ Code Blue ___ Other (describe below) Pastoral Care Referral From _x__ Patient ___ Family ___ Nurse ___ Physician ___ Chrome Plater Helper ___ Gear Hobber Operator ___ Other (describe below) Sacrament/Intervention ___ Active listening ___ Anointing ___ Congregation ___ Bereavement ___ Communion ___ Jacqui exploration ___ ___ Life review _x__ Prayer ___ Reconciliation ___ Sacrament of Sick _x__ Supportive presence ___ Wedding ___ Other (describe below) Pastoral Comments patient and sister are in the room; pt acknowledges the pain she is having, and sister admits that grief is on their hearts as their mother recently ; pt is from [place] and was here to be with her mother; pt states there is so much going on right now and this is not a good day ; pt states that I can't talk too much right now but I do need a prayer ; prayer and ongoing support offered; asked sister how she was coping and managing with all the family needs and oferred support
[2024-03-08] MEDS: Acetaminophen 325 MG Tablet 650 MG PO ×2 (16:02→20:12)
[2024-03-08] MEDS: oxyCODONE 5 MG Tablet PO ×2 (16:02→20:12)
[2024-03-08 20:10] VITALS: BP 149/98; PULSE 82; RESP 15; TEMP 36.6; O2SAT 94
[2024-03-08] MEDS: Atorvastatin Calcium 80 MG Tablet PO (20:12)
[2024-03-09] MEDS: oxyCODONE 5 MG Tablet PO ×4 (02:23→20:53)
[2024-03-09] MEDS: Acetaminophen 325 MG Tablet 650 MG PO ×2 (02:24→20:53)
[2024-03-09 02:32] VITALS: BMI 25.3
[2024-03-09 02:34] VITALS: BP 147/86; PULSE 79; RESP 16; TEMP 36.7; O2SAT 94
[2024-03-09] MEDS: Levothyroxine 100 MCG Tablet PO (06:08)
[2024-03-09 08:24] LABS: Absolute Lymphocyte Count 1.75 X10^3/uL (0.83-4.51); Absolute Neutrophil Count 10.8 X10^3/uL (2.0-7.7); Basophil# 0.08 X10^3/uL; Basophil% 0.6 % (0-1); Eosinophil# 0.08 X10^3/uL; Eosinophils% 0.6 % (0-5); Hematocrit 52.6 % (37-47); Hemoglobin 17.4 g/dL (12.0-15.0); Lymphocyte # 1.75 X10^3/ul (0.83-4.51); Lymphocyte % 12.3 % (19-41); Mean Corp Hgb Conc 33.1 g/dL (32-36); Mean Corpuscular Hgb 31.3 pg (27.0-32.0); Mean Corpuscular Volume 94.6 fL (81-99); Mean Platelet Vol. 9.8 fl (6.2-12.0); Monocyte% 9.9 % (0-10); NRBC Flagged by Analyzer 0 % (0-5); Neutrophil # 10.83 X10^3/uL (2.7-7.7); Neutrophil % 76.2 % (47-70); Platelet Count 246 K/mm3 (150-450); RBC Distribution Width CV 13.2 % (11.6-14.6); RBC Distribution Width SD 46.2 fl (35.1-43.9); Red Blood Count 5.56 M/mm3 (4.2-5.4); White Blood Count 14.2 K/mm3 (4.4-11.0)
[2024-03-09 08:34] VITALS: BP 135/73; PULSE 70; RESP 16; TEMP 36.8; O2SAT 94
[2024-03-09 09:13] LABS: Anion Gap 8 (5-15); BUN 11 mg/dL (7-18); BUN/Creat Ratio 10.4 RATIO (10-20); Calcium,Total 9.2 mg/dL (8.5-10.1); Chloride 101 mmol/L (98-107); Creatinine, Serum 1.06 mg/dL (0.55-1.02); EST Glomerular Filtration Rate 55 mL/min (>60); Est Glom Filt Rate - Afr Amer 66 mL/min (>60); Estimated Creatinine Clearance 41.22 ml/min; Glucose 126 mg/dL (74-106); Phosphorus 2.4 mg/dL (2.5-4.9); Potassium 3.7 mmol/L (3.5-5.1); Sodium Level 133 mmol/L (136-145)
[2024-03-09] MEDS: amLODIPine 10 MG Tablet PO (09:51)
[2024-03-09] MEDS: Aspirin 81 MG TAB.CHEW PO (09:51)
[2024-03-09] MEDS: Senna/Docusate Sodium 1 Tablet 2 TABLET PO ×2 (09:52→20:53)
--- NOTE | 2024-03-09 11:07 | CASEMGMT ---
Discharge Planning A list of?SNF providers including quality and resource use data and consistent with the patient's preferred geographic region, medical needs, and insurance network was created in [facility] Guide.? This list was provided to the SW. Deandra Saldana Discharge Planning Asst.
[2024-03-09] MEDS: KCL 40mEq in 0.9% NS 40 MEQ/1,000 ML IV.SOLN 125 MEQ IV (11:30)
--- NOTE | 2024-03-09 12:09 | CASEMGMT ---
Addendum entered by Deandra Saldana 03/12/24 09:01: [facility] declined. Deandra Saldana DC Planning Asst. Original Note: Discharge Planning Referral sent to [facility] via [facility]. Deandra Saldana DC Planning Asst.
--- NOTE | 2024-03-09 12:17 | CASEMGMT ---
Social Work- SW met with pt and sister to discuss preferences at d/c. A list of SNF providers including quality and resource use data and consistent with the patient?s preferred geographic region, medical needs, and insurance network were provided from the [facility] Guide. Pt selected [facility] as F[facility]. Pt will look at list for additional choices. DCA advised to complete referral. SW will remain available to follow. ALTON Warner
--- NOTE | 2024-03-09 14:49 | PCM.PN.HOSP ---
Reason for Visit Reason for Visit: Diagnoses Displaced bicondylar fracture of left tibia, initial encounter for closed fracture (03/07/24) Other fracture of upper and lower end of unspecified fibula, initial encounter for closed fracture (03/07/24) Unspecified fall, initial encounter (03/07/24) Objective Data Objective Data Vital Signs: Vital Signs Temp Pulse Resp BP Pulse Ox O2 Del Method 98.3 F 70 16 135/73 H 94 Room Air 03/09/24 08:34 03/09/24 08:34 03/09/24 08:34 03/09/24 08:34 03/09/24 08:34 03/09/24 08:34 Oxygen Delivery Method Room Air Weight: 128 lb 15.527 oz Body Mass Index (BMI) 25.3 Intake & Output: Intake and Output for Last 24 Hours 03/07/24 03/08/24 03/09/24 23:59 23:59 23:59 Intake Total 0 / 100 3195 / 3195 1100 / 1100 Output Total 1300 / 1300 1550 / 1550 Balance 0 / 100 1895 / 1895 -450 / -450 Lab / Micro Data 03/09/24 07:33 03/09/24 07:33 Labs: Laboratory Results - last 24 hr 03/09/24 07:33: WBC 14.2 H, RBC 5.56 H, Hgb 17.4 H, Hct 52.6 H, MCV 94.6, MCH 31.3, MCHC 33.1, RDW Std Deviation 46.2 H, RDW Coeff of Luis 13.2, Plt Count 246, MPV 9.8, Immature Gran % (Auto) 0.400, Neut % (Auto) 76.2 H, Lymph % (Auto) 12.3 L, [place] % (Auto) 9.9, Eos % (Auto) 0.6, Baso % (Auto) 0.6, Absolute Neuts (auto) 10.8 H, Absolute Lymphs (auto) 1.75, Nucleated RBC % 0, Sodium 133 L, Potassium 3.7, Chloride 101, Carbon Dioxide 24.0, Anion Gap 8, BUN 11, Creatinine 1.06 H, Estim Creat Clear Calc 41.22, Est GFR (MDRD) Af Amer 66, Est GFR (MDRD) Non-Af 55 L, BUN/Creatinine Ratio 10.4, Glucose 126 H, Calcium 9.2, Phosphorus 2.4 L, Cortisol 14.80 Physical Exam Narrative Seen and examined. No fever. Pain is better. Patient fell off the step and has fracture of left tibial plateau, fracture line extending to intra-articular region. On knee immobilizer. No LOC Physical exam General: Alert, Oriented x3, Cooperative HEENT: Atraumatic, PERRLA, EOMI, Normocephalic Oral: No Gingival or Mucosal Lesions/ Ulcerations Neck: Supple, No JVD, Negative Carotid Bruits Chest wall/Lungs: Air entry diminished in bilateral lung bases. No crepitation/rhonchi Cardiovascular: Regular rate, Regular Rhythm, Normal S1, Normal S2, No M/G/R Abdomen: Bowel Sounds Present, Soft, Non Tender, Non-Distended : No dysuria. No renal angle tenderness. No suprapubic tenderness. Extremities: No edema, Capillary Refill Less than 3 Seconds Skin: No rashes, No breakdown Musculoskeletal: Left knee is swollen and very tender. On the immobilizer. No Tenderness to Palpation of other joints or Extremities Neurological: Cranial nerves II-XII grossly intact, DTR 2+/4. No acute focal neurological deficit. Psych/Mental Status: Flat affect. Assessment & Plan Assessment/Plan (1) Fall: (2) Fracture of left tibial plateau: (3) Fracture of fibula, proximal: PLAN: Plan The patient is a 68 y/o F admitted with fall off a 3 foot ladder on left leg injuring it. She denies hitting her head or LOC denies neck pain. No chest pain or shortness of breath. She had surgery on her left hip after fracture in [place] 4 years ago. #1. Mechanical fall with an acute comminuted intra-articular fracture of the lateral tibial plateau with extension to the medial aspect of the medial tibial plateau with lateral hemarthroses as well as a commuted fracture of the proximal fibula: [facility] On the immobilizer. Pain control. Orthopedic surgeon Dr. Jaziel collado consulted. Recommended fracture alignment appears at this point amenable to nonsurgical treatment. Nonweightbearing recommended for 6 weeks with maintenance of knee immobilizer. Should follow-up 1 week for repeat x-ray to ensure maintained alignment. Risk of malunion including posttraumatic arthritis. 03/09:Pain and swelling better. Requiring less pain meds. Pt decided for SNF. #2. Hypokalemia: Admission K+ 3.0 potassium replaced. Serum magnesium 2.1. 03/09: Repeat K is normal, Hypokalemia is resolved. #3. Suspected underlying CKD stage III B: Admission BUN/creatinine 21/1.61, GFR of 34, repeat BUN/creatinine today better 19/1.44. 03/09: Cr 1.06, follow kidney function desire #4. Hypertension: Continue home regimen including amlodipine, PRN hydralazine. #5. Hyperlipidemia: continue patient on statin therapy #6. Hypothyroidism: patient on levothyroxine regimen. TSH high 41.4 but free T4 normal 1.05. 03/09: cortisol level normal. P 2.4, REPLACED. #7. Carotid disease: Status post right CEA, will continue aspirin, statin, hypertensive regimen as noted. #8. DVT prophylaxis: SCDs, defer chemoprophylaxis pending surgery evaluation to be cautious. #9. CODE status: Patient does not have healthcare power of sports attorney or living will in place but notes her sister who is present would be her decision-maker if necessary. Discussed CODE status at length including difference between FULL code, DNR-CCA and DNR-CC status. Following discussions about the differences in these status, requested Full Code status. Laboratory Results 03/09/24 07:33: WBC 14.2 H, RBC 5.56 H, Hgb 17.4 H, Hct 52.6 H, MCV 94.6, MCH 31.3, MCHC 33.1, RDW Std Deviation 46.2 H, RDW Coeff of Luis 13.2, Plt Count 246, MPV 9.8, Immature Gran % (Auto) 0.400, Neut % (Auto) 76.2 H, Lymph % (Auto) 12.3 L, Custer % (Auto) 9.9, Eos % (Auto) 0.6, Baso % (Auto) 0.6, Absolute Neuts (auto) 10.8 H, Absolute Lymphs (auto) 1.75, Nucleated RBC % 0, Sodium 133 L, Potassium 3.7, Chloride 101, Carbon Dioxide 24.0, Anion Gap 8, BUN 11, Creatinine 1.06 H, Estim Creat Clear Calc 41.22, Est GFR (MDRD) Af Amer 66, Est GFR (MDRD) Non-Af 55 L, BUN/Creatinine Ratio 10.4, Glucose 126 H, Calcium 9.2, Phosphorus 2.4 L, Cortisol 14.80 TSH 41.400 H, Free T4 1.05 Charges/Coding Visit Charges Inpatient E&M: 11823 Subs Hosp L2
[2024-03-09 14:54] VITALS: BP 142/61; PULSE 84; RESP 16; TEMP 37.1; O2SAT 93
[2024-03-09] MEDS: Na Biphos/Potassium Phosphate PACKET 1 PACKET PO ×2 (15:53→20:53)
[2024-03-09] MEDS: Nicotine Polacrilex 2 MG GUM PO (16:28)
[2024-03-09] MEDS: Atorvastatin Calcium 80 MG Tablet PO (20:53)
[2024-03-09 21:02] VITALS: BP 150/93; PULSE 73; RESP 16; TEMP 37.2; O2SAT 99
[2024-03-10] MEDS: oxyCODONE 5 MG Tablet PO ×3 (05:16→17:51)
[2024-03-10] MEDS: Acetaminophen 325 MG Tablet 650 MG PO ×2 (05:17→17:51)
[2024-03-10 05:34] VITALS: BP 124/61; PULSE 87; RESP 16; TEMP 36.8; O2SAT 96
[2024-03-10 05:35] VITALS: BMI 25.2
[2024-03-10] MEDS: Levothyroxine 100 MCG Tablet PO (05:41)
[2024-03-10] MEDS: Na Biphos/Potassium Phosphate PACKET 1 PACKET PO ×3 (05:41→22:12)
[2024-03-10 06:58] LABS: Absolute Lymphocyte Count 0.96 X10^3/uL (0.83-4.51); Absolute Neutrophil Count 9.8 X10^3/uL (2.0-7.7); Basophil# 0.05 X10^3/uL; Basophil% 0.4 % (0-1); Eosinophil# 0.17 X10^3/uL; Eosinophils% 1.4 % (0-5); Hematocrit 49.3 % (37-47); Hemoglobin 16.2 g/dL (12.0-15.0); Lymphocyte # 0.96 X10^3/ul (0.83-4.51); Lymphocyte % 7.9 % (19-41); Mean Corp Hgb Conc 32.9 g/dL (32-36); Mean Corpuscular Hgb 31.1 pg (27.0-32.0); Mean Corpuscular Volume 94.6 fL (81-99); Mean Platelet Vol. 9.5 fl (6.2-12.0); Monocyte# 1.08 X10^3/uL; Monocyte% 8.9 % (0-10); NRBC Flagged by Analyzer 0 % (0-5); Neutrophil # 9.79 X10^3/uL (2.7-7.7); Platelet Count 203 K/mm3 (150-450); RBC Distribution Width CV 13.2 % (11.6-14.6); RBC Distribution Width SD 46.5 fl (35.1-43.9); Red Blood Count 5.21 M/mm3 (4.2-5.4); White Blood Count 12.1 K/mm3 (4.4-11.0)
[2024-03-10 07:13] LABS: Anion Gap 6 (5-15); BUN 18 mg/dL (7-18); Calcium,Total 8.9 mg/dL (8.5-10.1); Chloride 104 mmol/L (98-107); Creatinine, Serum 1.06 mg/dL (0.55-1.02); EST Glomerular Filtration Rate 55 mL/min (>60); Est Glom Filt Rate - Afr Amer 66 mL/min (>60); Estimated Creatinine Clearance 41.12 ml/min; Glucose 132 mg/dL (74-106); Potassium 3.9 mmol/L (3.5-5.1); Sodium Level 133 mmol/L (136-145)
[2024-03-10 08:48] VITALS: O2SAT 93
--- NOTE | 2024-03-10 08:58 | CASEMGMT ---
Addendum entered by Tori Jones 03/10/24 15:49: Social Work Pt's sister Leena Pires([phone]) called SW back, would like referrals sent to all of the facilities in [place]--[facility], [place], [facility] and [facility]. SW sent all referrals via [facility], will follow up on Tuesday and keep pt's sister informed. Leena states the next choice after this would be [facility]. ALYSSA Martin Original Note: Social Work [facility] responded in [facility] that they have no beds. SW spoke w/pt in room, let her know that [facility] not [facility], inquired about additional choices. Pt states she has not made any additional choices, will need to speak w/her sister. SW gave pt this SW's number as well as the SW on Tuesday. SW asked pt to call this SW today should she come up with additional choices, or if not to call the SW first thing Tuesday w/additional choices. Pt states understanding. SW will follow up w/additional choices to additional facilities once pt makes her preferences known. ALYSSA Martin
[2024-03-10 09:00] VITALS: BP 153/55; PULSE 79; RESP 18; TEMP 37.1; O2SAT 96
[2024-03-10] MEDS: Ondansetron 4 MG/2 ML Vial IV ×2 (10:14→18:13)
[2024-03-10] MEDS: amLODIPine 10 MG Tablet PO (10:15)
[2024-03-10] MEDS: Aspirin 81 MG TAB.CHEW PO (10:15)
[2024-03-10] MEDS: 0.9% Saline Lock 10 ML Syringe IV ×2 (10:15→18:13)
[2024-03-10] MEDS: Senna/Docusate Sodium 1 Tablet 2 TABLET PO ×2 (10:15→22:13)
--- NOTE | 2024-03-10 12:22 | PN.HOSP_ITS ---
Reason for Visit Reason for Visit: Diagnoses Displaced bicondylar fracture of left tibia, initial encounter for closed fracture (03/07/24) Other fracture of upper and lower end of unspecified fibula, initial encounter for closed fracture (03/07/24) Unspecified fall, initial encounter (03/07/24) Objective Data Objective Data Vital Signs: Vital Signs Temp Pulse Resp BP Pulse Ox O2 Del Method 98.7 F 79 18 153/55 H 96 Room Air 03/10/24 09:00 03/10/24 09:00 03/10/24 09:00 03/10/24 09:00 03/10/24 09:00 03/10/24 09:00 Oxygen Delivery Method Room Air Weight: 128 lb 4.944 oz Body Mass Index (BMI) 25.2 Intake & Output: Intake and Output for Last 24 Hours 03/08/24 03/09/24 03/10/24 23:59 23:59 23:59 Intake Total 3195 / 3195 2350 / 2350 400 / 400 Output Total 1300 / 1300 1550 / 1550 550 / 550 Balance 1895 / 1895 800 / 800 -150 / -150 Lab / Micro Data 03/10/24 06:28 03/10/24 06:28 Labs: Laboratory Results - last 24 hr 03/10/24 06:28: WBC 12.1 H, RBC 5.21, Hgb 16.2 H, Hct 49.3 H, MCV 94.6, MCH 31.1, MCHC 32.9, RDW Std Deviation 46.5 H, RDW Coeff of Luis 13.2, Plt Count 203, MPV 9.5, Immature Gran % (Auto) 0.400, Neut % (Auto) 81.0 H, Lymph % (Auto) 7.9 L, [place] % (Auto) 8.9, Eos % (Auto) 1.4, Baso % (Auto) 0.4, Absolute Neuts (auto) 9.8 H, Absolute Lymphs (auto) 0.96, Nucleated RBC % 0, Sodium 133 L, Potassium 3.9, Chloride 104, Carbon Dioxide 23.0, Anion Gap 6, BUN 18, Creatinine 1.06 H, Estim Creat Clear Calc 41.12, Est GFR (MDRD) Af Amer 66, Est GFR (MDRD) Non-Af 55 L, BUN/Creatinine Ratio 17.0, Glucose 132 H, Calcium 8.9 Physical Exam Narrative Seen and examined. She complained of severe pain last night and pain medication was given. She is little groggy in the morning pain is controlled. Has not moved bowel for 3 days. Patient fell off the step and has fracture of left tibial plateau, fracture line extending to intra-articular region. On knee immobilizer. No LOC Physical exam General: Alert, Oriented x3, Cooperative HEENT: Atraumatic, PERRLA, EOMI, Normocephalic Oral: No Gingival or Mucosal Lesions/ Ulcerations Neck: Supple, No JVD, Negative Carotid Bruits Chest wall/Lungs: Air entry diminished in bilateral lung bases. No crepitation/rhonchi Cardiovascular: Regular rate, Regular Rhythm, Normal S1, Normal S2, No M/G/R Abdomen: Bowel Sounds Present, Soft, Non Tender, Non-Distended : No dysuria. No renal angle tenderness. No suprapubic tenderness. Extremities: No edema, Capillary Refill Less than 3 Seconds Skin: No rashes, No breakdown Musculoskeletal: Left knee is swollen and very tender. On the immobilizer. No Tenderness to Palpation of other joints or Extremities Neurological: Cranial nerves II-XII grossly intact, DTR 2+/4. No acute focal neurological deficit. Psych/Mental Status: Flat affect. Assessment & Plan Assessment/Plan (1) Fall: (2) Fracture of left tibial plateau: QUALIFIERS: Encounter type: initial encounter Fracture type: c losed Qualified Code(s): S82.142A - Displaced bicondylar fracture of left tibia, initial encounter for closed fracture (3) Fracture of fibula, proximal: PLAN: Plan The patient is a 68 y/o F admitted with fall off a 3 foot ladder on left leg injuring it. She denies hitting her head or LOC denies neck pain. No chest pain or shortness of breath. She had surgery on her left hip after fracture in [place] 4 years ago. #1. Mechanical fall with an acute comminuted intra-articular fracture of the lateral tibial plateau with extension to the medial aspect of the medial tibial plateau with lateral hemarthroses as well as a commuted fracture of the proximal fibula: Patient admitted to [facility] floor. On the immobilizer. Pain control. Orthopedic surgeon Dr. Jaziel collado consulted. Recommended fracture alignment appears at this point amenable to nonsurgical treatment. Nonweightbearing recommended for 6 weeks with maintenance of knee immobilizer. Should follow-up 1 week for repeat x-ray to ensure maintained alignment. Risk of malunion including posttraumatic arthritis. 03/09:Pain and swelling better. Requiring less pain meds. Pt decided for SNF. 03/10: Constipation because of [place] opioids: MiraLAX and senna S Dulcolax 10 mg 1 dose. Monitor bowel movement. Tizanidine added. continue oxycodone 2.5 mg for moderate pain and 5 mg for severe pain respectively. #2. Hypokalemia: Admission K+ 3.0 potassium replaced. Serum magnesium 2.1. 03/09: Repeat K is normal, Hypokalemia is resolved. #3. Suspected underlying CKD stage III B: Admission BUN/creatinine 21/1.61, GFR of 34, repeat BUN/creatinine today better 19/1.44. 03/09: Cr 1.06, follow kidney function desire #4. Hypertension: Continue home regimen including amlodipine, PRN hydralazine. #5. Hyperlipidemia: continue patient on statin therapy #6. Hypothyroidism: patient on levothyroxine regimen. TSH high 41.4 but free T4 normal 1.05. 03/09: cortisol level normal. P 2.4, REPLACED. #7. Carotid disease: Status post right CEA, will continue aspirin, statin, hypertensive regimen as noted. #8. DVT prophylaxis: SCDs, defer chemoprophylaxis pending surgery evaluation to be cautious. #9. CODE status: Patient does not have healthcare power of vertical punch operator or living will in place but notes her sister who is present would be her decision-maker if necessary. Discussed CODE status at length including difference between FULL code, DNR-CCA and DNR-CC status. Following discussions about the differences in these status, requested Full Code status. Charges/Coding Visit Charges Inpatient E&M: 40968 Subs Hosp L2
[2024-03-10] MEDS: Bisacodyl 5 MG Tablet 10 MG PO (12:47)
[2024-03-10] MEDS: Polyethylene Glycol 3350 17 GM PACKET PO ×2 (12:48→22:12)
[2024-03-10] MEDS: Enoxaparin 40 MG/0.4 ML Syringe SC (12:48)
[2024-03-10] MEDS: tiZANidine HCl 2 MG Tablet 4 MG PO (12:52)
[2024-03-10 16:21] VITALS: BP 120/56; PULSE 56; RESP 16; TEMP 37.1; O2SAT 97
[2024-03-10 20:31] VITALS: BP 114/56; PULSE 82; RESP 16; TEMP 36.8; O2SAT 92
[2024-03-10] MEDS: Atorvastatin Calcium 80 MG Tablet PO (22:13)
[2024-03-11 01:57] VITALS: BP 139/54; PULSE 70; RESP 16; TEMP 37.1; O2SAT 93
[2024-03-11] MEDS: Levothyroxine 100 MCG Tablet PO (05:29)
[2024-03-11] MEDS: oxyCODONE 5 MG Tablet PO ×4 (05:30→20:56)
[2024-03-11] MEDS: Na Biphos/Potassium Phosphate PACKET 1 PACKET PO ×2 (05:31→14:55)
[2024-03-11 10:20] VITALS: BP 113/55; PULSE 79; RESP 17; TEMP 36.8; O2SAT 93
[2024-03-11] MEDS: amLODIPine 10 MG Tablet PO (10:39)
[2024-03-11] MEDS: Senna/Docusate Sodium 1 Tablet 2 TABLET PO ×2 (10:39→20:59)
[2024-03-11] MEDS: Aspirin 81 MG TAB.CHEW PO (10:41)
[2024-03-11] MEDS: Polyethylene Glycol 3350 17 GM PACKET PO ×2 (10:53→21:09)
[2024-03-11] MEDS: Enoxaparin 40 MG/0.4 ML Syringe SC (10:53)
[2024-03-11] MEDS: tiZANidine HCl 2 MG Tablet 4 MG PO (10:53)
--- NOTE | 2024-03-11 13:36 | PCM.PN.HOSP ---
Reason for Visit Reason for Visit: Diagnoses Displaced bicondylar fracture of left tibia, initial encounter for closed fracture (03/07/24) Other fracture of upper and lower end of unspecified fibula, initial encounter for closed fracture (03/07/24) Unspecified fall, initial encounter (03/07/24) Objective Data Objective Data Vital Signs: Vital Signs Temp Pulse Resp BP Pulse Ox O2 Del Method 98.3 F 79 17 113/55 L 93 Room Air 03/11/24 10:20 03/11/24 10:20 03/11/24 10:20 03/11/24 10:20 03/11/24 10:20 03/11/24 10:20 Oxygen Delivery Method Room Air Weight: 128 lb 4.944 oz Body Mass Index (BMI) 25.2 Intake & Output: Intake and Output for Last 24 Hours 03/09/24 03/10/24 03/11/24 23:59 23:59 23:59 Intake Total 2350 / 2350 1630 / 1930 700 / 700 Output Total 1550 / 1550 1050 / 1050 350 / 350 Balance 800 / 800 580 / 880 350 / 350 Lab / Micro Data 03/10/24 06:28 03/10/24 06:28 Physical Exam Narrative Seen and examined. Her pain is controlled. She still did not had bowel movement. Did not had bowel movement for last 4 days Patient fell off the step and has fracture of left tibial plateau, fracture line extending to intra-articular region. On knee immobilizer. No LOC Physical exam General: Alert, Oriented x3, Cooperative HEENT: Atraumatic, PERRLA, EOMI, Normocephalic Oral: No Gingival or Mucosal Lesions/ Ulcerations Neck: Supple, No JVD, Negative Carotid Bruits Chest wall/Lungs: Air entry diminished in bilateral lung bases. No crepitation/rhonchi Cardiovascular: Regular rate, Regular Rhythm, Normal S1, Normal S2, No M/G/R Abdomen: Bowel Sounds Present, Soft, Non Tender, Non-Distended : No dysuria. No renal angle tenderness. No suprapubic tenderness. Extremities: No edema, Capillary Refill Less than 3 Seconds Skin: No rashes, No breakdown Musculoskeletal: Left knee is swollen and very tender. On the immobilizer. No Tenderness to Palpation of other joints or Extremities Neurological: Cranial nerves II-XII grossly intact, DTR 2+/4. No acute focal neurological deficit. Psych/Mental Status: Flat affect. Assessment & Plan Assessment/Plan (1) Fall: (2) Fracture of left tibial plateau: QUALIFIERS: Encounter type: initial encounter Fracture type: closed Qualified Code(s): S82.142A - Displaced bicondylar fracture of left tibia, initial encounter for closed fracture (3) Fracture of fibula, proximal: PLAN: Plan The patient is a 68 y/o F admitted with fall off a 3 foot ladder on left leg injuring it. She denies hitting her head or LOC denies neck pain. No chest pain or shortness of breath. She had surgery on her left hip after fracture in [place] 4 years ago. #1. Mechanical fall with an acute comminuted intra-articular fracture of the lateral tibial plateau with extension to the medial aspect of the medial tibial plateau with lateral hemarthroses as well as a commuted fracture of the proximal fibula: Patient admitted to [facility] floor. On the immobilizer. Pain control. Orthopedic surgeon Dr. Jaziel collado consulted. Recommended fracture alignment appears at this point amenable to nonsurgical treatment. Nonweightbearing recommended for 6 weeks with maintenance of knee immobilizer. Should follow-up 1 week for repeat x-ray to ensure maintained alignment. Risk of malunion including posttraumatic arthritis. 03/09:Pain and swelling better. Requiring less pain meds. Pt decided for SNF. 03/10: Constipation because of [place] opioids: MiraLAX and senna S Dulcolax 10 mg 1 dose. Monitor bowel movement. Tizanidine added. continue oxycodone 2.5 mg for moderate pain and 5 mg for severe pain respectively. 03/11: Patient still did not had a bowel movement. Dulcolax 10 mg oral 1 dose and suppository ordered. #2. Hypokalemia: Admission K+ 3.0 potassium replaced. Serum magnesium 2.1. 03/09: Repeat K is normal, Hypokalemia is resolved. #3. Suspected underlying CKD stage III B: Admission BUN/creatinine 21/1.61, GFR of 34, repeat BUN/creatinine today better 19/1.44. 03/09: Cr 1.06, follow kidney function desire #4. Hypertension: Continue home regimen including amlodipine, PRN hydralazine. #5. Hyperlipidemia: continue patient on statin therapy #6. Hypothyroidism: patient on levothyroxine regimen. TSH high 41.4 but free T4 normal 1.05. 03/09: cortisol level normal. P 2.4, REPLACED. #7. Carotid disease: Status post right CEA, will continue aspirin, statin, hypertensive regimen as noted. #8. DVT prophylaxis: SCDs, defer chemoprophylaxis pending surgery evaluation to be cautious. #9. CODE status: Patient does not have healthcare power of commercial real estate attorney or living will in place but notes her sister who is present would be her decision-maker if necessary. Discussed CODE status at length including difference between FULL code, DNR-CCA and DNR-CC status. Following discussions about the differences in these status, requested Full Code status. Charges/Coding Visit Charges Inpatient E&M: 38084 Subs Hosp L2
[2024-03-11] MEDS: Bisacodyl 5 MG Tablet 10 MG PO (14:55)
[2024-03-11] MEDS: Bisacodyl 10 MG Suppository RC (14:55)
[2024-03-11] MEDS: Acetaminophen 325 MG Tablet 650 MG PO ×2 (15:03→20:56)
[2024-03-11 15:14] VITALS: BP 145/67; PULSE 78; RESP 16; TEMP 36.8; O2SAT 94
[2024-03-11 20:51] VITALS: BP 118/70; PULSE 70; RESP 15; TEMP 36.9; O2SAT 95
[2024-03-11] MEDS: Atorvastatin Calcium 80 MG Tablet PO (21:00)
[2024-03-11 22:49] VITALS: RESP 15
[2024-03-12 03:33] VITALS: RESP 15
[2024-03-12 04:00] VITALS: BP 169/79; PULSE 63; RESP 15; TEMP 36.6; O2SAT 95
[2024-03-12] MEDS: oxyCODONE 5 MG Tablet PO ×3 (04:36→19:26)
[2024-03-12] MEDS: Acetaminophen 325 MG Tablet 650 MG PO ×3 (04:36→19:26)
[2024-03-12 06:00] VITALS: BMI 26.6
[2024-03-12 06:06] LABS: Absolute Lymphocyte Count 1.09 X10^3/uL (0.83-4.51); Absolute Neutrophil Count 5.3 X10^3/uL (2.0-7.7); Basophil# 0.03 X10^3/uL; Basophil% 0.4 % (0-1); Eosinophil# 0.29 X10^3/uL; Eosinophils% 3.7 % (0-5); Hematocrit 45.2 % (37-47); Hemoglobin 15.2 g/dL (12.0-15.0); Lymphocyte # 1.09 X10^3/ul (0.83-4.51); Lymphocyte % 14.1 % (19-41); Mean Corp Hgb Conc 33.6 g/dL (32-36); Mean Corpuscular Volume 95.2 fL (81-99); Mean Platelet Vol. 9.2 fl (6.2-12.0); Monocyte# 0.98 X10^3/uL; Monocyte% 12.7 % (0-10); NRBC Flagged by Analyzer 0 % (0-5); Neutrophil # 5.31 X10^3/uL (2.7-7.7); Neutrophil % 68.6 % (47-70); Platelet Count 272 K/mm3 (150-450); RBC Distribution Width CV 13.2 % (11.6-14.6); RBC Distribution Width SD 46.5 fl (35.1-43.9); Red Blood Count 4.75 M/mm3 (4.2-5.4); White Blood Count 7.7 K/mm3 (4.4-11.0)
[2024-03-12] MEDS: Levothyroxine 100 MCG Tablet PO (06:48)
[2024-03-12 06:51] VITALS: BP 139/72; PULSE 74; RESP 15; O2SAT 99
[2024-03-12 06:56] LABS: Anion Gap 5 (5-15); BUN 14 mg/dL (7-18); Calcium,Total 8.9 mg/dL (8.5-10.1); Chloride 104 mmol/L (98-107); Creatinine, Serum 0.94 mg/dL (0.55-1.02); EST Glomerular Filtration Rate 63 mL/min (>60); Est Glom Filt Rate - Afr Amer 77 mL/min (>60); Estimated Creatinine Clearance 47.55 ml/min; Glucose 115 mg/dL (74-106); Potassium 3.6 mmol/L (3.5-5.1); Sodium Level 136 mmol/L (136-145)
[2024-03-12] MEDS: tiZANidine HCl 2 MG Tablet 4 MG PO (08:18)
[2024-03-12] MEDS: Enoxaparin 40 MG/0.4 ML Syringe SC (08:31)
[2024-03-12] MEDS: Polyethylene Glycol 3350 17 GM PACKET PO (08:31)
[2024-03-12] MEDS: Senna/Docusate Sodium 1 Tablet 2 TABLET PO (08:32)
[2024-03-12] MEDS: amLODIPine 10 MG Tablet PO (08:32)
[2024-03-12] MEDS: Aspirin 81 MG TAB.CHEW PO (08:32)
--- NOTE | 2024-03-12 08:50 | PN.HOSP_ITS ---
Reason for Visit Reason for Visit: Diagnoses Displaced bicondylar fracture of left tibia, initial encounter for closed fracture (03/07/24) Other fracture of upper and lower end of unspecified fibula, initial encounter for closed fracture (03/07/24) Unspecified fall, initial encounter (03/07/24) Subjective Subjective Leg is feeling better. Occasionally will get some spasms in her left leg. Objective Data Objective Data Vital Signs: Vital Signs Temp Pulse Resp BP Pulse Ox O2 Del Method 36.6 C 74 15 139/72 H 99 Room Air 03/12/24 04:00 03/12/24 06:51 03/12/24 06:51 03/12/24 06:51 03/12/24 06:51 03/12/24 08:23 Oxygen Delivery Method Room Air Weight: 61.4 kg Body Mass Index (BMI) 26.6 Intake & Output: Intake and Output for Last 24 Hours 03/10/24 03/11/24 03/12/24 23:59 23:59 23:59 Intake Total 1630 / 1930 1510 / 1510 Output Total 1050 / 1050 350 / 350 Balance 580 / 880 1160 / 1160 Lab / Micro Data 03/12/24 05:40 03/12/24 05:40 Labs: Laboratory Results - last 24 hr 03/12/24 05:40: WBC 7.7, RBC 4.75, Hgb 15.2 H, Hct 45.2, MCV 95.2, MCH 32.0, MCHC 33.6, RDW Std Deviation 46.5 H, RDW Coeff of Luis 13.2, Plt Count 272, MPV 9.2, Immature Gran % (Auto) 0.500, Neut % (Auto) 68.6, Lymph % (Auto) 14.1 L, M darling % (Auto) 12.7 H, Eos % (Auto) 3.7, Baso % (Auto) 0.4, Absolute Neuts (auto) 5.3, Absolute Lymphs (auto) 1.09, Nucleated RBC % 0, Sodium 136, Potassium 3.6, Chloride 104, Carbon Dioxide 27.0, Anion Gap 5, BUN 14, Creatinine 0.94, Estim Creat Clear Calc 47.55, Est GFR (MDRD) Af Amer 77, Est GFR (MDRD) Non-Af 63, BUN/Creatinine Ratio 15.0, Glucose 115 H, Calcium 8.9 Physical Exam Const alert and no apparent distress HEENT head/scalp atraumatic and moist oral mucous membranes Resp normal respiratory effort and no retractions Extremity Extremity Narrative: Left lower extremity in an immobilizer. Neuro no focal motor deficits Sensorium / Orientation: awake and alert Speech: speech normal Psych affect normal Assessment & Plan Assessment/Plan (1) Fall: (2) Fracture of left tibial plateau: QUALIFIERS: Encounter type: initial encounter Fracture type: c losed Qualified Code(s): S82.142A - Displaced bicondylar fracture of left tibia, initial encounter for closed fracture (3) Fracture of fibula, proximal: PLAN: Plan acute comminuted intra-articular fracture of the lateral tibial plateau * with extension to the medial aspect of the medial tibial plateau with lateral hemarthroses as well as a commuted fracture of the proximal fibula: * Seen by orthopedics, who feels that these are nonsurgical at this time. Recommending nonweightbearing for 6 weeks and maintenance of a knee immobilizer. Patient to follow-up with orthopedics in about 1 week's time. Constipation * On MiraLAX, scheduled. Received as needed Dulcolax. Did have bowel movement yesterday. Chronic conditions * Hypertension: Continue home regimen including amlodipine, PRN hydralazine. * Hyperlipidemia: continue patient on statin therapy * Hypothyroidism: patient on levothyroxine regimen. TSH high 41.4 but free T4 normal 1.05. * PAD: Status post right CEA, will continue aspirin, statin, hypertensive regimen DVT prophylaxis: SCDs Disposition: To [facility] facility pending insurance authorization. Charges/Coding Visit Charges Inpatient E&M: 01911 Subs Hosp L2
--- NOTE | 2024-03-12 09:01 | CASEMGMT ---
Addendum entered by Deandra Saldana 03/12/24 12:50: [facility] chosen [facility]. They were updated and asked to submit precert. All other snfs asked to cancel referral. Deandra Saldana DC Planning Asst. Addendum entered by Deandra Saldana 03/12/24 10:24: [facility] declined. SW updated. Deandra Saldana DC Planning Asst. Original Note: Discharge Planning SW sent referrals to [facility], [facility], [facility], [facility], and [facility]. Updates sent to all. [facility] and [facility] have accepted. Deandra Saldana DC Planning Asst.
[2024-03-12 10:00] VITALS: BP 116/88; PULSE 71; RESP 18; TEMP 36.4; O2SAT 95
--- NOTE | 2024-03-12 11:31 | TREXTCAR_ITS ---
Diet Diet Order/Speech Therapy: 03/08/24 09:17 Diet: Regular - General Routine Orders/Code Status Code Status: Full Code Therapies Weight Bearing: Non weight bearing Extremity Affected:: Left Lower (immobilizer. ) Physical Therapy: Eval and Treat Occupational Therapy: Eval and Treat Problem/Diagnosis (1) Fall: Status: Acute Code(s): W19.XXXA - Unspecified fall, initial encounter (2) Fracture of left tibial plateau: Status: Acute Code(s): S82.142A - Displaced bicondylar fracture of left tibia, initial encounter for closed fracture (3) Fracture of fibula, proximal: Status: Acute Code(s): S82.839A - Other fracture of upper and lower end of unspecified fibula, initial encounter for closed fracture Plan acute comminuted intra-articular fracture of the lateral tibial plateau * with extension to the medial aspect of the medial tibial plateau with lateral hemarthroses as well as a commuted fracture of the proximal fibula: * Seen by orthopedics, who feels that these are nonsurgical at this time. Recommending nonweightbearing for 6 weeks and maintenance of a knee immobilizer. Patient to follow-up with orthopedics in about 1 week's time. Constipation * On MiraLAX, scheduled. Received as needed Dulcolax. Did have bowel movement yesterday. Chronic conditions * Hypertension: Continue home regimen including amlodipine, PRN hydralazine. * Hyperlipidemia: continue patient on statin therapy * Hypothyroidism: patient on levothyroxine regimen. TSH high 41.4 but free T4 normal 1.05. * PAD: Status post right CEA, will continue aspirin, statin, hypertensive regimen DVT prophylaxis: SCDs Disposition: To retirement facility pending insurance authorization. Allergies/Procedures Done in Hospital Allergies No Known Allergies Allergy (Verified 03/07/24 19:25) Procedures: None Type of Care/Length of Stay Estimated LOS: Convalescent Care Less Than 30 days Type of Care Needed: Skilled Rehab Potential: Good Prognosis: Good Additional Orders/Day of Discharge Day of Discharge: 03/12/24 Discharge Plan Admission Admit Date/Time: 03/07/24 21:23 Primary Reason for Your Visit: tib/fib fracture. Attending Provider: Cristopher Forbes Primary Care Provider: Care Physician,No Primary Consulting Providers: Jaziel Lin; Tere Brown; Isaias Rincon Discharge Orders/Prescriptions Prescriptions: New acetaminophen 325 mg Tablet 650 mg PO Q4H PRN PRN (Reason: Fever, pain 1-04/12) Qty: 0 0RF nicotine (polacrilex) 2 mg Gum 2 mg PO Q2H PRN PRN (Reason: SMOKING CESSATION) Qty: 0 0RF melatonin 3 mg Tablet 3 mg PO QHS PRN PRN (Reason: Insomnia) Qty: 0 0RF oxycodone 5 mg Tablet 5 mg PO Q4H PRN PRN (Reason: Pain Score 4-10) 3 Days Qty: 12 0RF Continued atorvastatin 80 mg tablet 80 mg PO DAILY aspirin 81 mg capsule 81 mg PO DAILY levothyroxine 100 mcg tablet 100 mcg PO DAILY amlodipine 10 mg tablet 10 mg PO DAILY Referrals / Follow Up: Care Physician,No Primary [Primary Care Provider] - Disposition Disposition (needs filled in before D/C Order can be placed): Penitentiary Facility (2) Fracture of left tibial plateau Qualifiers: Encounter type: initial encounter Fracture type: closed Qualified Code(s): S82.142A - Displaced bicondylar fracture of left tibia, initial encounter for closed fracture
--- NOTE | 2024-03-12 13:46 | CASEMGMT ---
Social Work- SW updated pt and sister on acceptances. [facility]. DCA advised. DELL completed 7000 for precert. ALTON Warner
[2024-03-12 15:00] VITALS: BP 148/78; PULSE 78; RESP 18; TEMP 36.8; O2SAT 98
--- NOTE | 2024-03-12 16:05 | CASEMGMT ---
Social Work- SW received word that pt was still showing under [place]. Pt does have [place] card and was able to produce a card to be scanned. SW called [employer] insurance service representative, who reports [place] benefits are showing when looking up pt by social and . [employer] insurance service representative reports that [place] is showing up under [place] not [place] [place]. Pt reports that she has the paperwork from when she cancelled [place] and took proof of cancelled GRICELDA in when she applied for [place]. DELL updated DCA. DELL remains available to follow. ALTON Warner
[2024-03-12 21:53] VITALS: BP 159/66; PULSE 73; RESP 16; TEMP 37.1; O2SAT 95
[2024-03-12] MEDS: Atorvastatin Calcium 80 MG Tablet PO (21:59)
[2024-03-12] MEDS: 0.9% Saline Lock 10 ML Syringe IV (22:00)
[2024-03-13] MEDS: oxyCODONE 5 MG Tablet PO ×4 (02:49→22:03)
[2024-03-13] MEDS: Acetaminophen 325 MG Tablet 650 MG PO ×4 (02:49→22:04)
[2024-03-13 05:41] VITALS: BP 176/82; PULSE 72; RESP 16; TEMP 36.8; O2SAT 100
[2024-03-13] MEDS: Levothyroxine 100 MCG Tablet PO (05:47)
[2024-03-13 05:49] VITALS: BP 176/82; PULSE 72
[2024-03-13] MEDS: hydrALAZINE 20 MG/ML Vial 10 MG IV (05:49)
[2024-03-13 06:00] VITALS: BMI 32.6
--- NOTE | 2024-03-13 08:03 | PN.HOSP_ITS ---
Reason for Visit Reason for Visit: Diagnoses Displaced bicondylar fracture of left tibia, initial encounter for closed fracture (03/07/24) Other fracture of upper and lower end of unspecified fibula, initial encounter for closed fracture (03/07/24) Unspecified fall, initial encounter (03/07/24) Subjective Subjective Having pain in her leg. Upset that the fucking retards can't find her paperwork. Objective Data Objective Data Vital Signs: Vital Signs Temp Pulse Resp BP Pulse Ox O2 Del Method 36.8 C 72 16 176/82 H 100 Room Air 03/13/24 05:41 03/13/24 05:49 03/13/24 05:41 03/13/24 05:49 03/13/24 05:41 03/13/24 05:41 Oxygen Delivery Method Room Air Weight: 75.5 kg Body Mass Index (BMI) 32.6 Intake & Output: Intake and Output for Last 24 Hours 03/11/24 03/12/24 03/13/24 23:59 23:59 23:59 Intake Total 1510 / 1510 300 / 300 200 / 200 Output Total 350 / 350 Balance 1160 / 1160 300 / 300 200 / 200 Lab / Micro Data 03/12/24 05:40 03/12/24 05:40 Physical Exam Const Constitutional Narrative: lying in bed with immobilizer on her leg. anxious. does not establish eye contact with me. Cursing. Assessment & Plan Assessment/Plan (1) Fall: (2) Fracture of left tibial plateau: QUALIFIERS: Encounter type: initial encounter Fracture type: c losed Qualified Code(s): S82.142A - Displaced bicondylar fracture of left tibia, initial encounter for closed fracture (3) Fracture of fibula, proximal: PLAN: Plan acute comminuted intra-articular fracture of the lateral tibial plateau * with extension to the medial aspect of the medial tibial plateau with lateral hemarthroses as well as a commuted fracture of the proximal fibula: * Seen by orthopedics, who feels that these are nonsurgical at this time. Recommending nonweightbearing for 6 weeks and maintenance of a knee immobilizer. Patient to follow-up with orthopedics in about 1 week's time. Constipation * On MiraLAX, scheduled. Received as needed Dulcolax. Did have bowel movement yesterday. Chronic conditions * Hypertension: Amlodipine 10. Add lisinopril 10mg/d. * Hyperlipidemia: continue patient on statin therapy * Hypothyroidism: patient on levothyroxine regimen. TSH high 41.4 but free T4 normal 1.05. * PAD: Status post right CEA, will continue aspirin, statin, hypertensive regimen DVT prophylaxis: SCDs Disposition: To custodial facility pending insurance authorization. Per CM, it may 48-72 hours more. Charges/Coding Visit Charges Inpatient E&M: 79020 Subs Hosp L1
--- NOTE | 2024-03-13 09:00 | CASEMGMT ---
Addendum entered by Geno Jeffers 03/13/24 09:54: SW called [facility] to confirm pt is not in system. Pt is not in the system, run by social security number. Pt produced a straight medicare card. SW provided education on medicare/dual plans. SW to call RAKEL Velasquez when they open with pt. ALTNO Warner Original Note: Social Work- SW called [facility] to receive direction on how to assist pt with switching [employer] coverage. Maryam spoke with [facility] and Enrollment departments who advise that pt needs to speak directly with Ron ELLINGTON to switch. SW to advise pt. ALTON Warner
[2024-03-13 10:18] VITALS: BP 129/63; PULSE 88; RESP 18; TEMP 36.7; O2SAT 98
[2024-03-13] MEDS: Lisinopril 10 MG Tablet PO (10:20)
[2024-03-13] MEDS: Enoxaparin 40 MG/0.4 ML Syringe SC (10:20)
[2024-03-13] MEDS: Aspirin 81 MG TAB.CHEW PO (10:20)
[2024-03-13] MEDS: Senna/Docusate Sodium 1 Tablet 2 TABLET PO ×2 (10:20→22:03)
[2024-03-13] MEDS: amLODIPine 10 MG Tablet PO (10:20)
--- NOTE | 2024-03-13 11:10 | CASEMGMT ---
Discharge Planning Note sent to [facility] asking if they would reconsider once pts financial are settled. Awaiting response. Deandra Saldana DC Planning Asst.
--- NOTE | 2024-03-13 12:07 | CASEMGMT ---
Addendum entered by Geno Jeffers 03/13/24 15:55: PT shared that pt was teary and reported that pt did not want to discuss reason/source at the time. SW attempted to meet with pt to f/u; pt sleeping. ALTON Warner Original Note: Social Work- SW met with pt and pt sister in pt room & called [place] [facility] ([phone]); ticket #:[id number] to de-enroll pt from plan d/t permanent move to [place]. Pt was emotionally labile, tearing up and covering her face at one point, as SW navigated call. Pt and sister both reported that they would not have been able to complete the call/process. Pt was shaky, fumbling through belongings, often sighing, teary, and emotionally reactive throughout the phone call. Pt was dis-enrolled, SW asked to escalate the process; pt will be dis-enrolled within 48-72 hours. At that time, pt will convert to straight [facility] and have the option to enroll in [place] [facility] if desired. SW notified DCA and physician. [facility] will accept when pt becomes [facility] and [place] is removed. Pt sister reports that she will transport pt at d/c. SW remains available to follow. Plan: [facility] [place]; pending transition to [facility] ALTON Warner
--- NOTE | 2024-03-13 12:08 | CASEMGMT ---
Discharge Planning [facility] can accept once patients IJEOMA is showing active and Mat has a posted end date. Deandra Saldana DC Planning Asst.
[2024-03-13 14:30] VITALS: BP 112/42; PULSE 72; RESP 18; TEMP 36.8; O2SAT 98
[2024-03-13] MEDS: Polyethylene Glycol 3350 17 GM PACKET PO (20:28)
[2024-03-13 22:01] VITALS: BP 135/50; PULSE 74; RESP 17; TEMP 36.6; O2SAT 96
[2024-03-13] MEDS: Atorvastatin Calcium 80 MG Tablet PO (22:04)
[2024-03-14 03:03] VITALS: BP 140/65; PULSE 67; RESP 17; TEMP 36.5; O2SAT 99
[2024-03-14] MEDS: oxyCODONE 5 MG Tablet PO ×4 (03:04→21:37)
[2024-03-14] MEDS: Levothyroxine 100 MCG Tablet PO (05:46)
[2024-03-14] MEDS: Acetaminophen 325 MG Tablet 650 MG PO ×3 (05:46→20:00)
--- NOTE | 2024-03-14 08:38 | PCM.PN.HOSP ---
Reason for Visit Reason for Visit: Diagnoses Displaced bicondylar fracture of left tibia, initial encounter for closed fracture (03/07/24) Other fracture of upper and lower end of unspecified fibula, initial encounter for closed fracture (03/07/24) Unspecified fall, initial encounter (03/07/24) Subjective Subjective apologetic for her behavior yesterday. Objective Data Objective Data Vital Signs: Vital Signs Temp Pulse Resp BP Pulse Ox O2 Del Method 36.5 C L 67 17 140/65 H 99 Room Air 03/14/24 03:03 03/14/24 03:03 03/14/24 03:03 03/14/24 03:03 03/14/24 03:03 03/14/24 03:03 Oxygen Delivery Method Room Air Weight: 75.5 kg Body Mass Index (BMI) 32.6 Intake & Output: Intake and Output for Last 24 Hours 03/12/24 03/13/24 03/14/24 23:59 23:59 23:59 Intake Total 300 / 300 560 / 560 Balance 300 / 300 560 / 560 Lab / Micro Data 03/12/24 05:40 03/12/24 05:40 Physical Exam Const alert and no apparent distress HEENT head/scalp atraumatic and moist oral mucous membranes Resp normal respiratory effort and no retractions Assessment & Plan Assessment/Plan (1) Fall: (2) Fracture of left tibial plateau: QUALIFIERS: Encounter type: initial encounter Fracture type: closed Qualified Code(s): S82.142A - Displaced bicondylar fracture of left tibia, initial encounter for closed fracture (3) Fracture of fibula, proximal: PLAN: Plan acute comminuted intra-articular fracture of the lateral tibial plateau with extension to the medial aspect of the medial tibial plateau with lateral hemarthroses as well as a commuted fracture of the proximal fibula: Seen by orthopedics, who feels that these are nonsurgical at this time. Recommending nonweightbearing for 6 weeks and maintenance of a knee immobilizer. Patient to follow-up with orthopedics in about 1 week's time. Constipation On MiraLAX, scheduled. Received as needed Dulcolax. Chronic conditions Hypertension: Amlodipine 10. Add lisinopril 10mg/d. Hyperlipidemia: continue patient on statin therapy Hypothyroidism: patient on levothyroxine regimen. TSH high 41.4 but free T4 normal 1.05. PAD: Status post right CEA, will continue aspirin, statin, hypertensive regimen DVT prophylaxis: SCDs Disposition: To [facility]ci facility pending insurance authorization. Charges/Coding Visit Charges Inpatient E&M: 36370 Subs Hosp L1
[2024-03-14 09:00] VITALS: BP 131/104; PULSE 70; RESP 18; TEMP 36.6; O2SAT 98
[2024-03-14] MEDS: Aspirin 81 MG TAB.CHEW PO (09:38)
[2024-03-14] MEDS: Lisinopril 10 MG Tablet PO (09:39)
[2024-03-14] MEDS: amLODIPine 10 MG Tablet PO (09:39)
[2024-03-14] MEDS: Nicotine Polacrilex 2 MG GUM PO (09:39)
[2024-03-14] MEDS: Enoxaparin 40 MG/0.4 ML Syringe SC (09:39)
--- NOTE | 2024-03-14 10:02 | CASEMGMT ---
Social Work- SW called registration to run pt coverage to determine if [facility] has dropped; coverage remains the same with [facility] showing. SW to continue to follow. ALTON Warner
[2024-03-14 20:04] VITALS: BP 151/66; PULSE 65; RESP 15; TEMP 36.7; O2SAT 96
[2024-03-14 21:02] VITALS: RESP 15; O2SAT 97
[2024-03-14] MEDS: Atorvastatin Calcium 80 MG Tablet PO (21:37)
[2024-03-15] MEDS: Acetaminophen 325 MG Tablet 650 MG PO ×4 (01:36→23:03)
[2024-03-15] MEDS: MELATONIN 3 MG TABLET PO (01:37)
[2024-03-15 03:00] VITALS: O2SAT 97
[2024-03-15 06:00] VITALS: BP 137/70; PULSE 64; RESP 15; TEMP 36.8; O2SAT 95
[2024-03-15] MEDS: oxyCODONE 5 MG Tablet PO ×4 (06:25→23:03)
[2024-03-15] MEDS: Levothyroxine 100 MCG Tablet PO (06:25)
--- NOTE | 2024-03-15 07:49 | PCM.PN.HOSP ---
Reason for Visit Reason for Visit: Diagnoses Displaced bicondylar fracture of left tibia, initial encounter for closed fracture (03/07/24) Other fracture of upper and lower end of unspecified fibula, initial encounter for closed fracture (03/07/24) Unspecified fall, initial encounter (03/07/24) Subjective Subjective Still with leg pain, overall improved. Objective Data Objective Data Vital Signs: Vital Signs Temp Pulse Resp BP Pulse Ox O2 Del Method 36.8 C 64 15 137/70 H 95 Room Air 03/15/24 06:00 03/15/24 06:00 03/15/24 06:00 03/15/24 06:00 03/15/24 06:00 03/15/24 06:00 Oxygen Delivery Method Room Air Weight: 61.4 kg Body Mass Index (BMI) 32.6 Intake & Output: Intake and Output for Last 24 Hours 03/13/24 03/14/24 03/15/24 23:59 23:59 23:59 Intake Total 560 / 560 Balance 560 / 560 Lab / Micro Data 03/12/24 05:40 03/12/24 05:40 Physical Exam Const alert and no apparent distress HEENT head/scalp atraumatic and moist oral mucous membranes Resp normal respiratory effort, no retractions, no use of accessory muscles and clear to auscultation bilaterally Cardio regular rate, regular rhythm, S1 normal heart sound and S2 normal heart sound GI normal to inspection, nondistended, normoactive bowel sounds, soft to palpation, non-tender and non-distended Extremity normal to inspection and full ROM Neuro Sensorium / Orientation: awake and alert Assessment & Plan Assessment/Plan (1) Fall: (2) Fracture of left tibial plateau: QUALIFIERS: Encounter type: initial encounter Fracture type: closed Qualified Code(s): S82.142A - Displaced bicondylar fracture of left tibia, initial encounter for closed fracture (3) Fracture of fibula, proximal: PLAN: Plan acute comminuted intra-articular fracture of the lateral tibial plateau with extension to the medial aspect of the medial tibial plateau with lateral hemarthroses as well as a commuted fracture of the proximal fibula: Seen by orthopedics, who feels that these are nonsurgical at this time. Recommending nonweightbearing for 6 weeks and maintenance of a knee immobilizer. Patient to follow-up with orthopedics in about 1 week's time. Constipation On MiraLAX, scheduled. Received as needed Dulcolax. Chronic conditions Hypertension: Amlodipine 10. Add lisinopril 10mg/d. Hyperlipidemia: continue patient on statin therapy Hypothyroidism: patient on levothyroxine regimen. TSH high 41.4 but free T4 normal 1.05. PAD: Status post right CEA, will continue aspirin, statin, hypertensive regimen DVT prophylaxis: SCDs Disposition: To retirement facility pending insurance authorization. Charges/Coding Visit Charges Inpatient E&M: 15560 [facility] Hosp L1
[2024-03-15 10:03] VITALS: BP 137/57; PULSE 66; RESP 18; TEMP 37.1; O2SAT 97
[2024-03-15] MEDS: Aspirin 81 MG TAB.CHEW PO (10:08)
[2024-03-15] MEDS: Lisinopril 10 MG Tablet PO (10:09)
[2024-03-15] MEDS: Enoxaparin 40 MG/0.4 ML Syringe SC (10:09)
[2024-03-15] MEDS: amLODIPine 10 MG Tablet PO (10:09)
--- NOTE | 2024-03-15 10:47 | CASEMGMT ---
Social Work SW spoke with Chantelle in registration. Pt continues to have [place] [facility]. SW met with pt and updated that although [facility] was cancelled on Tuesday, they stated it would take 48-72 hours to be cancelled and that it was not yet cancelled. Pt expresses understanding and appreciation for information. SW continues to follow for insurance changes and SNF placement. Plan: [facility], when [facility] insurance is offically cancelled and [facility] is in place ALTON Rutledge
[2024-03-15 15:02] VITALS: BP 114/65; PULSE 78; RESP 18; TEMP 37.1; O2SAT 100
[2024-03-15] MEDS: 0.9% Saline Lock 10 ML Syringe IV (18:27)
[2024-03-15 21:22] VITALS: BP 130/78; PULSE 72; RESP 18; TEMP 37; O2SAT 100
[2024-03-15] MEDS: Atorvastatin Calcium 80 MG Tablet PO (21:25)
[2024-03-16 04:11] VITALS: BP 158/68; PULSE 70; RESP 18; TEMP 36.7; O2SAT 99
[2024-03-16] MEDS: Acetaminophen 325 MG Tablet 650 MG PO ×2 (04:13→17:42)
[2024-03-16] MEDS: oxyCODONE 5 MG Tablet PO ×4 (04:13→17:42)
[2024-03-16 06:00] VITALS: BMI 33.7
[2024-03-16] MEDS: Levothyroxine 100 MCG Tablet PO (06:20)
--- NOTE | 2024-03-16 07:20 | PN.HOSP_ITS ---
Reason for Visit Reason for Visit: Diagnoses Displaced bicondylar fracture of left tibia, initial encounter for closed fracture (03/07/24) Other fracture of upper and lower end of unspecified fibula, initial encounter for closed fracture (03/07/24) Unspecified fall, initial encounter (03/07/24) Subjective Subjective Feels well. Objective Data Objective Data Vital Signs: Vital Signs Temp Pulse Resp BP Pulse Ox O2 Del Method 36.7 C 70 18 158/68 H 99 Room Air 03/16/24 04:11 03/16/24 04:11 03/16/24 04:11 03/16/24 04:11 03/16/24 04:11 03/16/24 04:11 Oxygen Delivery Method Room Air Weight: 78.1 kg Body Mass Index (BMI) 33.7 Intake & Output: Intake and Output for Last 24 Hours 03/14/24 03/15/24 03/16/24 23:59 23:59 23:59 Intake Total 300 / 300 200 / 200 Balance 300 / 300 200 / 200 Lab / Micro Data 03/12/24 05:40 03/12/24 05:40 Physical Exam Const alert and no apparent distress HEENT head/scalp atraumatic and moist oral mucous membranes Resp normal respiratory effort and no retractions Neuro Sensorium / Orientation: awake and alert Assessment & Plan Assessment/Plan (1) Fall: (2) Fracture of left tibial plateau: QUALIFIERS: Encounter type: initial encounter Fracture type: c losed Qualified Code(s): S82.142A - Displaced bicondylar fracture of left tibia, initial encounter for closed fracture (3) Fracture of fibula, proximal: PLAN: Plan acute comminuted intra-articular fracture of the lateral tibial plateau * with extension to the medial aspect of the medial tibial plateau with lateral hemarthroses as well as a commuted fracture of the proximal fibula: * Seen by orthopedics, who feels that these are nonsurgical at this time. Recommending nonweightbearing for 6 weeks and maintenance of a knee immobilizer. Patient to follow-up with orthopedics in about 1 week's time. Constipation * On MiraLAX, scheduled. Received as needed Dulcolax. Chronic conditions * Hypertension: Amlodipine 10. Add lisinopril 10mg/d. * Hyperlipidemia: continue patient on statin therapy * Hypothyroidism: patient on levothyroxine regimen. TSH high 41.4 but free T4 normal 1.05. * PAD: Status post right CEA, will continue aspirin, statin, hypertensive regimen DVT prophylaxis: Enoxaparin Disposition: To shelter facility pending insurance authorization. Charges/Coding Visit Charges Inpatient E&M: 95039 Subs Hosp L1
[2024-03-16 08:05] VITALS: BP 102/58; PULSE 68; RESP 18; TEMP 36.3; O2SAT 98
[2024-03-16] MEDS: Enoxaparin 40 MG/0.4 ML Syringe SC (08:06)
[2024-03-16] MEDS: Aspirin 81 MG TAB.CHEW PO (08:06)
--- NOTE | 2024-03-16 09:51 | CASEMGMT ---
Social Work Call to [place] in registration and [place] [facility] is still listed as pt's primary insurance. Pt cannot dc to SNF until [place] [facility] insurance is cancelled in the system and Medicare is in place. ALTON Rutledge
[2024-03-16 10:30] VITALS: BP 124/65; PULSE 74; RESP 18; TEMP 36.4; O2SAT 97
[2024-03-16] MEDS: amLODIPine 10 MG Tablet PO (10:32)
[2024-03-16] MEDS: Lisinopril 10 MG Tablet PO (10:32)
[2024-03-16 14:15] VITALS: BP 128/73; PULSE 68; RESP 18; TEMP 36.7; O2SAT 94
--- NOTE | 2024-03-16 16:30 | CASEMGMT ---
Social Work Multiple conversations with registration and pt is still current with [facility]. SW met with pt and pt sister and called [facility] ([phone]) and spoke with Sheree at 1456. Pt's case number from phone call and cancellation of insurance on Tuesday provided ([id number]). Sheree stating she cannot answer question at this time but will look into it and call this SW back within the hour. At this time (1630) SW has received no return call from insurance. Pt made aware. Pt cannot go to SNF until insurance issue is resolved. ALTON Rutledge
[2024-03-16 17:40] VITALS: BP 139/65; PULSE 70; RESP 18; TEMP 36.7; O2SAT 93
[2024-03-16 20:22] VITALS: BP 136/76; PULSE 72; RESP 18; TEMP 37; O2SAT 96
[2024-03-16] MEDS: Atorvastatin Calcium 80 MG Tablet PO (22:05)
[2024-03-17 02:31] VITALS: BP 142/70; PULSE 72; RESP 18; TEMP 36.8; O2SAT 99
[2024-03-17] MEDS: Acetaminophen 325 MG Tablet 650 MG PO ×2 (02:33→10:32)
[2024-03-17] MEDS: Levothyroxine 100 MCG Tablet PO (06:44)
[2024-03-17 06:46] VITALS: BMI 33.9
--- NOTE | 2024-03-17 07:33 | PN.HOSP_ITS ---
Reason for Visit Reason for Visit: Diagnoses Displaced bicondylar fracture of left tibia, initial encounter for closed fracture (03/07/24) Other fracture of upper and lower end of unspecified fibula, initial encounter for closed fracture (03/07/24) Unspecified fall, initial encounter (03/07/24) Subjective Subjective Feeling well. States that she has supplies now including a rollator that was her mother's previously. Feels that she can go home with outpatient therapy Objective Data Objective Data Vital Signs: Vital Signs Temp Pulse Resp BP Pulse Ox O2 Del Method 36.8 C 72 18 142/70 H 99 Room Air 03/17/24 02:31 03/17/24 02:31 03/17/24 02:31 03/17/24 02:31 03/17/24 02:03/17/24 02:31 Oxygen Delivery Method Room Air Weight: 78.3 kg Body Mass Index (BMI) 33.9 Intake & Output: Intake and Output for Last 24 Hours 03/15/24 03/16/24 03/17/24 23:59 23:59 23:59 Intake Total 300 / 300 200 / 200 600 / 600 Balance 300 / 300 200 / 200 600 / 600 Lab / Micro Data 03/12/24 05:40 03/12/24 05:40 Physical Exam Const alert and no apparent distress HEENT head/scalp atraumatic and moist oral mucous membranes Resp normal respiratory effort and no retractions Assessment & Plan Assessment/Plan (1) Fall: (2) Fracture of left tibial plateau: QUALIFIERS: Encounter type: initial encounter Fracture type: c losed Qualified Code(s): S82.142A - Displaced bicondylar fracture of left tibia, initial encounter for closed fracture (3) Fracture of fibula, proximal: PLAN: Plan acute comminuted intra-articular fracture of the lateral tibial plateau * with extension to the medial aspect of the medial tibial plateau with lateral hemarthroses as well as a commuted fracture of the proximal fibula: * Seen by orthopedics, who feels that these are nonsurgical at this time. Recommending nonweightbearing for 6 weeks and maintenance of a knee immobilizer. Patient to follow-up with orthopedics in about 1 week's time. Constipation * On MiraLAX, scheduled. Received as needed Dulcolax. Chronic conditions * Hypertension: Amlodipine 10. Add lisinopril 10mg/d. * Hyperlipidemia: continue patient on statin therapy * Hypothyroidism: patient on levothyroxine regimen. TSH high 41.4 but free T4 normal 1.05. * PAD: Status post right CEA, will continue aspirin, statin, hypertensive regimen DVT prophylaxis: Recommend twice daily dosing of aspirin until she can have the immobilizer taken off. Disposition: Now to home with outpatient therapy
[2024-03-17 07:45] VITALS: BP 123/51; PULSE 69; RESP 16; TEMP 36.6; O2SAT 98
[2024-03-17] MEDS: Aspirin 81 MG TAB.CHEW PO (07:58)
--- NOTE | 2024-03-17 08:12 | CASEMGMT ---
Social Work SW called registration this morning, pt's [facility] still coming up as active. SW did receive messages back from [facility] on Tuesday after SW had left for the day, as it is now Tuesday SW will not be able to follow up w/Mat until Tuesday. Pt will be here through the weekend and SW will follow up on Tuesday. ALYSSA Martin
[2024-03-17] MEDS: Enoxaparin 40 MG/0.4 ML Syringe SC (09:27)
[2024-03-17] MEDS: amLODIPine 10 MG Tablet PO (09:28)
[2024-03-17] MEDS: Lisinopril 10 MG Tablet PO (09:28)
--- NOTE | 2024-03-17 09:57 | CM.UR ---
Social Work SW spoke w/therapy, SW informed pt moving well enough to go home now, and would like to go home rather than to SNF. SW spoke w/pt, confirmed w/her she would like to return home rather than going to SNF, states is moving well enough that she can go home w/her sister. SW inquired if pt would want HHC, and explained if she does want HHC will need to ask her PCP once she gets the insurance issue resolved. Pt states plans to go to Dr. Guardado once the insurance issue is resolved, and understands can ask the physician for a referral to home health if needed. She would also like a script for outpt PT if needed. Pt asked about medications, SW explained we can assist w/cost one time per year, but cannot help w/pain meds. Pt states understanding. SW let physician know, he will send the scripts to [facility] so we can check on cost. CM also aware, will give pt script for outpt PT and follow up regarding a walker. ALYSSA Martin
--- NOTE | 2024-03-17 10:09 | CASEMGMT ---
Addendum entered by Gabbie Collins 03/17/24 12:03: TC to pharmacy [facility], spoke with Philomena. She states pt lisinopril is $11.57 and oxycodone is $13.81. The rest of meds are otc. TESHA SUBRAMANIAN into pt room, pt states she can afford the meds. She states she has her routine meds at home as well. She denies further needs and states her sister is coming soon to pick her up. Original Note: TESHA SUBRAMANIAN notified that pt wants to go home. TESHA SUBRAMANIAN into pt room. Provided pt with a rx for outpt therapy. Pt aware of what facilities she can go to. Pt also aware that once she gets her PCP she could request HH if outpt is too difficult for her. Pt states she has a rollator at home and does not want a FWW. TESHA SUBRAMANIAN to check cost of meds when ordered. Pt denies further needs at this time.
--- NOTE | 2024-03-17 10:49 | DS.PCM_ITS ---
Providers Date of Admission: 03/07/24 Primary Care Physician: No Primary Care Phys Consultations 03/07/24 23:02 Consult: Orthopedics Routine Consulting Provider: Jaziel Lin Reason for Consult: Fall, LLE tibial plateau fx EMERGENT Consult: No MD Notified: Yes Date Notified: 03/07/24 Time Notified: 21:23 Method of Notification: ED Physician Initiated Reason For Visit: FALL, L TIBIAL PLATEAU FX Diagnosis Discharge Diagnosis (1) Fall: Status: Acute Code(s): W19.XXXA - Unspecified fall, initial encounter (2) Fracture of left tibial plateau: Status: Acute Code(s): S82.142A - Displaced bicondylar fracture of left tibia, initial encounter for closed fracture Qualifiers: Encounter type: initial encounter Fracture type: closed Qualified Code(s): S82.142A - Displaced bicondylar fracture of left tibia, initial encounter for closed fracture (3) Fracture of fibula, proximal: Status: Acute Code(s): S82.839A - Other fracture of upper and lower end of unspecified fibula, initial encounter for closed fracture Plan acute comminuted intra-articular fracture of the lateral tibial plateau * with extension to the medial aspect of the medial tibial plateau with lateral hemarthroses as well as a commuted fracture of the proximal fibula: * Seen by orthopedics, who feels that these are nonsurgical at this time. Recommending nonweightbearing for 6 weeks and maintenance of a knee immobilizer. Patient to follow-up with orthopedics in about 1 week's time. Constipation * On MiraLAX, scheduled. Received as needed Dulcolax. Chronic conditions * Hypertension: Amlodipine 10. Add lisinopril 10mg/d. * Hyperlipidemia: continue patient on statin therapy * Hypothyroidism: patient on levothyroxine regimen. TSH high 41.4 but free T4 normal 1.05. * PAD: Status post right CEA, will continue aspirin, statin, hypertensive regimen DVT prophylaxis: Recommend twice daily dosing of aspirin until she can have the immobilizer taken off. Disposition: Now to home with outpatient therapy Medications at Discharge Home Medications amlodipine 10 mg tablet 10 mg PO DAILY htn 03/07/24 atorvastatin 80 mg tablet 80 mg PO DAILY hld 03/07/24 levothyroxine 100 mcg tablet 100 mcg PO DAILY thyroid 03/07/24 melatonin 3 mg tablet 3 mg PO QHS PRN PRN Insomnia #0 tabs 03/12/24 acetaminophen 500 mg capsule 1,000 mg (2 x 500 mg) PO Q8H PRN PRN fever or pain #30 caps 03/17/24 aspirin 81 mg capsule 81 mg PO BIDCM blood thinner #30 caps 03/17/24 lisinopril 10 mg tablet 10 mg PO DAILY #30 tabs 03/17/24 oxycodone 5 mg capsule 5 mg PO Q4H PRN pain 3 days #18 caps 03/17/24 Hospital Course Operations None Procedures None Summary of Care Provided Minutes Spent on Discharge: 33 Hospital Course: Patient sustained a left tibial and fibula fracture. Seen by orthopedics and just recommended immobilizer and nonweightbearing for the time being. Plans were to get her into a fdc facility though he had issues regards to the patient having [employer] insurance. Patient is now residing here permanently living with her sister. Plan is for her to go to fdc facility but patient is feeling much better at this time and will be going home with outpatient therapy. Patient advised to take aspirin 381 mg twice daily until the immobilizer has been taken off. Weight / BMI Weight Weight: 78.3 kg Body Mass Index (BMI) 33.9 ABG / Lab / Microbiology Data 03/12/24 05:40 03/12/24 05:40 D/C Instructions Discharge Diet: No restrictions Discharge Activity: Use Walker Weight Bearing Status: No weight bearing (left leg. immobilizer when up. ) Meaningful Use Info Meaningful Use Meaningful Use Diagnoses (Choose all that apply): None applicable Ischemic Stroke Statin Dosing Therapy Reference: STATIN DOSE THERAPY REFERENCE: * Patients > 75 years receive moderate or high dose statin therapy. * Patients 75 years or YOUNGER should receive HIGH intensity statin dose unless contraindicated. You will be required to document reason for non-treatment if statin daily dose does not meet guidelines. HIGH DOSE STATIN THERAPY DAILY Atorvastatin > than or = to 40 mg Rosuvastatin > than or = to 20 mg Amlodipine + Atorvastatin > than or = to 2.5/40 mg Ezetimibe + Simvastatin 10/80 mg Simvastatin 80mg Discharge Plan Admission Admit Date/Time: 03/07/24 21:23 Primary Reason for Your Visit: tib/fib fracture. Attending Provider: Cristopher Forbes Primary Care Provider: Care Physician,No Primary Consulting Providers: Jaziel Lin; Tere Brown; Isaias Rincon Discharge Orders/Prescriptions Prescriptions: New melatonin 3 mg Tablet 3 mg PO QHS PRN PRN (Reason: Insomnia) Qty: 0 0RF oxycodone 5 mg capsule 5 mg PO Q4H PRN (Reason: pain) 3 Days Qty: 18 0RF lisinopril 10 mg Tablet 10 mg PO DAILY Qty: 30 0RF acetaminophen 500 mg capsule 1,000 mg PO Q8H PRN PRN (Reason: fever or pain) Qty: 30 0RF Continued atorvastatin 80 mg tablet 80 mg PO DAILY levothyroxine 100 mcg tablet 100 mcg PO DAILY amlodipine 10 mg tablet 10 mg PO DAILY Changed aspirin 81 mg capsule 81 mg PO BIDCM Qty: 30 0RF Rx Instructions: Continue twice daily until your immobilizer can be removed and then resume daily dosing. Referrals / Follow Up: Jaziel Lin DO [Med Staff - Active Staff] - Within 1 Week Care Physician,No Primary [Primary Care Provider] - Disposition Disposition (needs filled in before D/C Order can be placed): [facility] Charges/Coding Visit Charges Inpatient E&M: 19161 Disch Hosp >30min
== END 2024-03-17 12:30 | disposition home or self-care (01) | DRG 563 ==
LOC: ED 21:28 → MS3 03-08 00:37
PROVIDERS: Internal Medicine; Admitting Provider Family Medicine; Emergency Provider Emergency Medicine
DX: S82.142A Displaced bicondylar fracture of left tibia, initial encounter for closed fracture (principal); E03.9 Hypothyroidism, unspecified; N18.32 Chronic kidney disease, stage 3b; I12.9 Hypertensive chronic kidney disease with stage 1 through stage 4 chronic kidney disease, or unspecified chronic kidney disease; F17.210 Nicotine dependence, cigarettes, uncomplicated; S82.832A Other fracture of upper and lower end of left fibula, initial encounter for closed fracture; E78.5 Hyperlipidemia, unspecified; E87.6 Hypokalemia; K59.03 Drug induced constipation; T40.2X5A Adverse effect of other opioids, initial encounter; W11.XXXA Fall on and from ladder, initial encounter; Z79.82 Long term (current) use of aspirin; Z79.890 Hormone replacement therapy; Z79.899 Other long term (current) drug therapy
CPT/HCPCS: 36415; 73560; 73590; 80048; 80053; 82533; 83735; 84100; 84439; 84443; 85025; 93005; 94668; 97110; 97116; 97162; 97166; 97530; 97535; 99285; 99406; J7030; A4216; J2405

== ENCOUNTER → 2024-06-13 | Outpatient (CLI) | payer MEDICARE, MEDICAID, SELFPAY ==
--- NOTE | 2024-06-13 13:09 | NEURO ---
NCS and/or EMG Patient Report Ordering Doctor: Arnold Schaefer DATE OF SERVICE: 06/13/24 Maureen presents with complaints of numbness and tingling in the right hand. Electrodiagnostic findings: Right median motor nerve demonstrates prolonged latency with normal amplitude and reduced conduction velocity. Right ulnar motor responses within normal limits. Normal right median and ulnar F?waves. Prolonged right median sensory latency at the wrist. Needle EMG testing was performed in the right upper limb. All muscles tested showed no evidence of denervation with normal motor unit action potentials. Electrodiagnostic impression: This is an abnormal study in the right upper limb. 1. Electrodiagnostic findings suggestive of right-sided median mononeuropathy. This consistent with a mild to moderate right carpal tunnel syndrome. 2. No electrodiagnostic evidence is noted for cervical radiculopathy Multi Select Codes Neurology Neurology Interp Codes: 25050-34 Musc test done w/n test comp (interp) and 57013-38 Nrv cndj test 7-8 studies (interp)
== END | disposition home or self-care (01) ==
LOC: PSN 10:05
PROVIDERS: Referring Provider Student in an Organized Health Care Education/Training Program; Visit Provider Student in an Organized Health Care Education/Training Program
DX: R20.2 Paresthesia of skin (principal)
CPT/HCPCS: 95886; 95909

== ENCOUNTER → 2024-11-19 | Outpatient (CLI) | payer MEDICARE, MEDICAID, SELFPAY ==
--- NOTE | 2024-11-19 12:40 | MRI_ITS ---
PROCEDURE: SPINE CERVICAL (ROUTINE) 11/19/2024 REASON FOR EXAM: NECK RADICULAR PAIN TECHNIQUE: T1, T2, stir, multiplanar and multisequence images were obtained without IV contrast administration. COMPARISON: None FINDINGS: There is loss of the lordosis. Vertebral body height is maintained. There is grade 1 spondylolisthesis at C4-5, 0.25 cm. There is Modic edema type endplate change at C6-7. The intervertebral disc signal shows desiccation. C2-C3: There is mild central disc protrusion. There is no lateral recess or foraminal stenosis. There is no central canal stenosis. C3-C4: There is moderate central disc protrusion. There is no lateral recess or foraminal stenosis. There is no central canal stenosis. C4-C5: There is moderate central disc protrusion. There is no lateral recess or foraminal stenosis. There is no central canal stenosis. C5-C6: There is moderate central, moderate right and mild left paracentral disc and osteophyte protrusion. There is moderate right lateral recess stenosis. There is moderate right foraminal narrowing secondary to disc and osteophyte protrusion. There is mild central canal stenosis. C6-C7: There is moderate central and right and left paracentral disc protrusion. There is mild right and moderate left lateral recess stenosis. There is moderate right and severe left foraminal narrowing secondary to disc and osteophyte protrusion. There is moderate central canal stenosis, partly secondary to ligamentous hypertrophy. C7-T1: There is minimal central disc protrusion. There is no lateral recess or foraminal stenosis. There is no central canal stenosis. The visualized cord shows normal signal characteristics. Adjacent soft tissues are grossly unremarkable. MRI/Spine Cervical (Routine) IMPRESSION: There is grade 1 spondylolisthesis at C4-5, 0.25 cm. There is Modic edema type endplate change at C6-7, which can indicate recent in jury or active inflammation. There is mild central canal stenosis at C5-6, moderate central canal stenosis a t C6-7, with lateral recess and foraminal narrowing. [facility]
== END | disposition home or self-care (01) ==
PROVIDERS: Referring Provider Psychiatry & Neurology Neurology; Visit Provider Psychiatry & Neurology Neurology
DX: M54.2 Cervicalgia (principal); M25.519 Pain in unspecified shoulder; R25.1 Tremor, unspecified
CPT/HCPCS: 72141

== ENCOUNTER 2024-12-10 23:22 | Inpatient (IN) | payer MEDICARE, MEDICAID, SELFPAY ==
[2024-12-10 23:24] VITALS: BP 117/65; PULSE 97; RESP 16; TEMP 36.8; O2SAT 92
[2024-12-10 23:26] VITALS: BP 117/65; PULSE 88; RESP 16; TEMP 36.8; O2SAT 95
[2024-12-10 23:34] VITALS: O2SAT 96
[2024-12-10 23:36] VITALS: BMI 24.3
--- NOTE | 2024-12-10 23:52 | EKG12_ITS ---
Test Reason : DYSRHYTHMIA Blood Pressure : */* mmHG Vent. Rate : 92 BPM Atrial Rate : 92 BPM P-R Int : 112 ms QRS Dur : 88 ms QT Int : 392 ms P-R-T Axes : 76 29 35 degrees QTcB Int : 484 ms Normal sinus rhythm Possible Left atrial enlargement Possible Inferior infarct , age undetermined Abnormal ECG Confirmed by Chucho Holt ([id number]), general expeditor PARISA ENAMORADO ([id number]) on 12/11/2024 11:17:54 AM Referred By: TB Confirmed By: Chucho Holt
--- NOTE | 2024-12-10 23:52 | RAD_ITS ---
PROCEDURE: CHEST PA AND LATERAL 12/11/2024 REASON FOR EXAM: SOB TECHNIQUE: Frontal and lateral views of the chest. COMPARISON: None FINDINGS: Mild cardiomegaly. Aortic calcifications are noted. Bilateral perihilar and lower lung zones infiltrates versus volume overload changes. Minimal bilateral pleural effusion. Tiny left upper lung zone nodule likely a granuloma measuring 5 mm. No acute rib abnormalities. RAD/Chest PA and Lateral IMPRESSION: Cardiomegaly and CHF changes. Follow-up is advised Reading Location: [facility]
--- NOTE | 2024-12-10 23:54 | EX.ED.DYSGE1 ---
HPI History of Present Illness Chief Complaint: Shortness of Breath Narrative Narrative: Patient is a 69-year-old female with past medical history of peripheral vascular disease, hypertension, chronic kidney disease, carotid artery disease who presented to the emergency department chief complaint of cough, chest pain and shortness of breath. According to the patient for the last few days she has had worsening cough and shortness of breath states that her symptoms started about a week ago. Patient denies any recent sick contacts. Patient states that she does smoke and does not have inhalers at home. Patient denies any history of recent travel, surgeries, DVT or PE [facility] Medical History (Updated 12/11/24 @ 03:[address] Isaac Araujo DO) Carpal tunnel syndrome on right Closed displaced bicondylar fracture of left tibia with routine healing CKD (chronic kidney disease) Cannabis use disorder HLD (hyperlipidemia) Tobacco use Carotid arterial disease Hypertension Home Medications ?Medication ?Instructions ?Recorded ?Last Taken ?Type amlodipine 10 mg tablet 10 mg PO DAILY htn 03/07/24 12/10/24 History cilostazol 50 mg tablet 50 mg PO BID 10/18/24 12/10/24 History levothyroxine 112 mcg tablet 112 mcg PO DAILY 12/10/24 12/10/24 History Allergy/AdvReac Type Severity Reaction Status Date / Time No Known Allergies Allergy Verified 12/10/24 23:26 Family History Mother , 89 Hypertension Pulmonary fibrosis Heart disease Glaucoma Father , 80 Hypertension Heart disease Diabetes Surgical History History of CEA (carotid endarterectomy) History of hip surgery Social History household members: family current occupational status: retired pets and animals: No Smoking Status: Current every day smoker tobacco type: cigarettes alcohol intake: never substance use type: marijuana caffeine: Yes Type: coffee Number of servings: 1 do you feel safe at home: Yes ROS ROS ED ROS Narrative Constitutional: Denies fevers, chills, headaches Eyes: Denies change in vision vision blurry vision Cardiovascular: Complains of chest discomfort states that mainly when she coughs denies palpitations Respiratory: Complains of cough denies sputum production Abdomen: Denies abdominal pain nausea vomiting diarrhea : Denies urinary symptoms Neurological: Denies numbness, wheeze, tingling Musculoskeletal: Denies back pain Skin: Denies rashes or lesions EXAM Physical Exam Narrative Exam Narrative: General: Patient lying in bed rest comfortably do not appear to be in acute distress Head: Atraumatic, normocephalic Eyes: PERRL bilaterally, EOMI bilaterally, no conjunctival injection noted Neck: Soft, supple, trachea midline Cardiovascular: Regular in rhythm no murmurs gallops rubs noted Respiratory: Clear to auscultation bilaterally no rales rhonchi or wheezes noted Abdomen: Soft, nondistended, no tenderness to palpation Extremities: +4/5 strength noted in the bilateral upper and lower extremities, radial pulses +2/4 in the bilateral extremities Neurological: Patient following commands knew that she was at [facility] the year is 2024 Skin: Warm, dry, intact no rashes or lesions noted Const Vital Signs: 12/10/24 23:24 12/10/24 23:26 12/10/24 23:34 Temperature 98.2 F 98.2 F Temperature Source Oral Oral Pulse Rate 97 88 Respiratory Rate 16 16 Respiratory Effort Short of Breath Respiratory Pattern Blood Pressure 117/65 117/65 Blood Pressure Mean 82 82 Pulse Ox 92 95 Oxygen Delivery Method Room Air Room Air Room Air Oxygen Flow Rate (L/min) Fraction of Inspired Oxygen (FIO2) 12/10/24 23:55 12/11/24 00:26 12/11/24 00:30 Temperature 98.2 F Temperature Source Oral Pulse Rate 91 Respiratory Rate 14 Respiratory Effort Respiratory Pattern Blood Pressure 122/70 H Blood Pressure Mean 87 Pulse Ox 92 92 Oxygen Delivery Method Room Air Room Air Nasal Cannula Oxygen Flow Rate (L/min) 2 Fraction of Inspired Oxygen (FIO2) 12/11/24 01:00 12/11/24 01:00 12/11/24 01:05 Temperature 98.2 F Temperature Source Oral Pulse Rate 100 Respiratory Rate 26 H Respiratory Effort Respiratory Pattern Blood Pressure 126/62 H Blood Pressure Mean 83 Pulse Ox 84 90 86 Oxygen Delivery Method Room Air Nasal Cannula Nasal Cannula Oxygen Flow Rate (L/min) 3 2 Fraction of Inspired Oxygen (FIO2) 12/11/24 01:32 12/11/24 01:32 12/11/24 01:32 Temperature Temperature Source Pulse Rate Respiratory Rate 26 H Respiratory Effort Respiratory Pattern Blood Pressure Blood Pressure Mean Pulse Ox 95 85 96 Oxygen Delivery Method Bi-pap Nasal Cannula Bi-pap Oxygen Flow Rate (L/min) 6 Fraction of Inspired Oxygen (FIO2) 60 12/11/24 01:32 12/11/24 01:32 12/11/24 02:19 Temperature 98.2 F Temperature Source Temporal Pulse Rate 99 84 Respiratory Rate 33 H 24 H Respiratory Effort Respiratory Pattern Tachypnea Blood Pressure 127/75 H Blood Pressure Mean 92 Pulse Ox 98 97 96 Oxygen Delivery Method Bi-pap Bi-pap Oxygen Flow Rate (L/min) Fraction of Inspired Oxygen (FIO2) 60 60 60 12/11/24 02:27 12/11/24 02:59 Temperature 98.2 F Temperature Source Pulse Rate 86 80 Respiratory Rate 25 H 21 H Respiratory Effort Respiratory Pattern Blood Pressure 127/75 H 125/70 H Blood Pressure Mean 92 88 Pulse Ox 87 97 Oxygen Delivery Method Bi-pap Oxygen Flow Rate (L/min) Fraction of Inspired Oxygen (FIO2) 60 MDM MDM MDM Narrative Medical decision making narrative: Patient is a 69-year-old female who presented to the emergency department with a chief complaint of cough, shortness of breath, chest pain. On the differential diagnose includes but not limited to ACS, pneumonia, pneumothorax, COPD exacerbation, upper respiratory infection secondary to viral etiology. Once workup is obtained reviewed she will be reevaluated. Patient's CBC showed a mild leukocytosis of 11,000, hemoglobin of 13.7, platelet count at 377. Patient sodium is 137, potassium normal 3.9, creatinine was normal at 1.08. Patient's troponin was 1980, delta troponin of 1735, proBNP elevated to 7545. Patient chest x-ray reviewed by myself and by radiology which showed cardiomegaly and CHF changes follow-up is advised. Patient's EKG showed sinus rhythm with a rate of 92 bpm which also showed nonspecific ST changes noted in the lateral leads this was compared to previous EKG from 03/07/2024 which actually looks improved when compared to this EKG. I added on a CTA of her chest with regards to her elevated troponin and proBNP. Patient did have increased shortness of breath and tachypnea here in the emergency department and became further hypoxic on her nasal cannula therefore we placed her on BiPAP. Patient significantly improved on BiPAP. Patient CTA of the chest reviewed which showed no evidence of pulmonary embolism there is a moderate bilateral pleural effusions noted. Moderate interstitial pulmonary edema. Mild alveolar pulmonary edema. Mildly prominent mediastinal lymph nodes are noted with the largest measuring 1.4 cm. Small sliding hiatal hernia. Dilated suprahepatic IVC suggestive of dysfunction of the right cardiac cavities. Benign chronic hypertrophy of the adrenal glands bilaterally. Bedside echocardiogram performed no large pericardial effusion noted. Called and discussed case with on-call table machine operator Dr. Holt who states that he would recommend giving Lovenox 1 mg/kg which was ordered for NSTEMI. Patient was given 40 mg IV Lasix as well. Discussed case with admitting physician Dr. Bojorquez who accept patient for admission. Patient was notified is agreeable this plan as well as family at bedside all question concerns answered. Lab Data Labs: Laboratory Results - last 24 hr 12/10/24 12/11/24 23:45 01:49 WBC 11.3 H RBC 4.45 Hgb 13.7 Hct 40.4 MCV 90.8 MCH 30.8 MCHC 33.9 RDW Std Deviation 43.1 RDW Coeff of Luis 13.2 Plt Count 377 MPV 10.1 Immature Gran % (Auto) 1.700 H Neut % (Auto) 66.3 Lymph % (Auto) 16.5 L Hayes % (Auto) 11.4 H Eos % (Auto) 3.1 Baso % (Auto) 1.0 Absolute Neuts (auto) 7.5 Absolute Lymphs (auto) 1.87 Nucleated RBC % 0 Sodium 137 Potassium 3.9 Chloride 106 Carbon Dioxide 18.3 L Anion Gap 12 BUN 13 Creatinine 1.08 Estim Creat Clear Calc 39.30 L Est GFR (MDRD) Non-Af 56 L BUN/Creatinine Ratio 11.8 Glucose 126 H Calcium 8.9 Troponin T High Sens 1980 H* Troponin T Hi Sens 2 Hr 1735 H* NT pro BNP II 7545 H Radiography Diagnostic Testing: Clinical Impression(s) from Imaging Studies Chest X-Ray 12/10/24 23:52 IMPRESSION: Cardiomegaly and CHF changes. Follow-up is advised Reading Location: [place] [address] Chest CTA 12/11/24 00:48 IMPRESSION: No CT evidence of pulmonary embolus or aortic dissection. Moderate bilateral pleural effusions. Passive atelectatic airspace disease/consolidations of the lower lobes. Moderate interstitial pulmonary edema. Mild alveolar pulmonary edema. Mildly prominent mediastinal lymph nodes are noted with the largest measuring 1.4 cm. Small sliding hiatal hernia. Dilated supra hepatic IVC suggestive of dysfunction of the right cardiac cavities. Bilateral benign chronic hypertrophy of the adrenal glands. Reading Location: [place] [address] Discharge Plan Triage Chief Complaint: Shortness of Breath ED Provider: Isaac Araujo Dx/Rx/DC Orders Clinical Impression: Acute hypoxic respiratory failure, Pleural effusion due to CHF (congestive heart failure), Myocardial infarction type 2 Prescriptions: No Action cilostazol 50 mg tablet 50 mg PO BID amlodipine 10 mg tablet 10 mg PO DAILY levothyroxine 112 mcg tablet 112 mcg PO DAILY Primary Care Provider: Marianela Goodson Referrals: Care Physician,No Primary [Non-Staff] - Print Language: Guyanese Disposition Disposition: Acute Care Hospital [facility]
[2024-12-11] VITALS (35 sets, daily range): BP systolic 94–127; BP diastolic 51–100; PULSE 74–167; RESP 12–33; TEMP 36.4–36.8; O2SAT 84–100; BMI 22.6; BMI 22.8
[2024-12-11 00:10] LABS: Absolute Lymphocyte Count 1.87 X10^3/uL (0.83-4.51); Absolute Neutrophil Count 7.5 X10^3/uL (2.0-7.7); Basophil# 0.11 X10^3/uL; Eosinophil# 0.35 X10^3/uL; Eosinophils% 3.1 % (0-5); Hematocrit 40.4 % (37-47); Hemoglobin 13.7 g/dL (12.0-15.0); Lymphocyte # 1.87 X10^3/ul (0.83-4.51); Lymphocyte % 16.5 % (19-41); Mean Corp Hgb Conc 33.9 g/dL (32-36); Mean Corpuscular Hgb 30.8 pg (27.0-32.0); Mean Corpuscular Volume 90.8 fL (81-99); Mean Platelet Vol. 10.1 fl (6.2-12.0); Monocyte# 1.29 X10^3/uL; Monocyte% 11.4 % (0-10); NRBC Flagged by Analyzer 0 % (0-5); Neutrophil % 66.3 % (47-70); Platelet Count 377 K/mm3 (150-450); RBC Distribution Width CV 13.2 % (11.6-14.6); RBC Distribution Width SD 43.1 fl (35.1-43.9); Red Blood Count 4.45 M/mm3 (4.2-5.4); White Blood Count 11.3 K/mm3 (4.4-11.0)
[2024-12-11 00:34] LABS: Anion Gap 12 (5-15); BUN 13 mg/dL (4-19); BUN/Creat Ratio 11.8 RATIO (10-20); Calcium,Total 8.9 mg/dL (7.6-11.0); Carbon Dioxide 18.3 mmol/L (21.0-32.0); Chloride 106 mmol/L (98-108); Creatinine, Serum 1.08 mg/dL (0.70-1.20); EST Glomerular Filtration Rate 56 (>60); Glucose 126 mg/dL (70-99); Potassium 3.9 mmol/L (3.3-5.1); Pro- Brain NATRIURETIC PEPTIDE 7545 pg/mL (<=900); Sodium Level 137 mmol/L (133-145); Troponin T High Sensitivity 1980 ng/L (<=14)
--- NOTE | 2024-12-11 00:36 | ED.RN ---
Critical troponin of 1,[address] Araujo notified.
--- NOTE | 2024-12-11 00:48 | CT_ITS ---
PROCEDURE: CTA CHEST W/WO CONTRAST 12/11/2024 REASON FOR EXAM: SOB, ELEVATED TROP TECHNIQUE: CTA imaging of the chest with intravenous contrast. Multiplanar and multisequence images were obtained. CONTRAST: Isovue-300 70 VOLUME: 100 mL Gauge IV One or more dose reduction techniques were used (e.g., Automated exposure control, adjustment of the mA and/or kV according to patient size, use of iterative reconstruction technique). RADIATION DOSE SUMMARY: CTDlvol: 4.62 mGy DLP: 169 mGycm COMPARISON: Radiograph on 12/11/2024. FINDINGS: Moderate bilateral pleural effusions. Passive atelectatic airspace disease/consolidations of the lower lobes. Moderate interstitial pulmonary edema. Mild alveolar pulmonary edema. Mildly prominent mediastinal lymph nodes are noted with the largest measuring 1.4 cm. Small sliding hiatal hernia. Dilated supra hepatic IVC suggestive of dysfunction of the right cardiac cavities. Bilateral hypertrophy of the adrenal glands. Normal enhancement of the main pulmonary artery and right and left pulmonary arteries. Normal enhancement of the bilateral peripheral pulmonary arteries. There is no demonstrated pulmonary embolism. Normal thoracic aorta and visualized great vessels. There is no demonstrated aortic dissection. Normal pericardium. Normal visualized trachea and bronchi. Normal chest wall structures. Mild diffuse spondylosis. CT/CTA Chest W/WO Contrast IMPRESSION: No CT evidence of pulmonary embolus or aortic dissection. Moderate bilateral pleural effusions. Passive atelectatic airspace disease/consolidations of the lower lobes. Moderate interstitial pulmonary edema. Mild alveolar pulmonary edema. Mildly prominent mediastinal lymph nodes are noted with the largest measuring 1 .4 cm. Small sliding hiatal hernia. Dilated supra hepatic IVC suggestive of dysfunction of the right cardiac caviti es. Bilateral benign chronic hypertrophy of the adrenal glands. Reading Location: [place] [id number]
--- OUTSIDE RECORDS SUMMARY | 2024-12-11 01:27 | XMS RPT_ITS | CCD ---
Author Organization [facility] Care Team Providers Care Manager Power Name Role Phone GRACE, MARIANELA Perez Attending Unavailable SHEETS, MARIANELA C Primary Care Unavailable SELF Referring Unavailable Sheets DO, Marianela C Primary Care Provider [phone] Sheets DO, Marianela C Primary Care Provider Sheets DO, Marianela C Unavailable Ana Guerra RN Unavailable PIETER LEA Admitting Unavailable ALYSIA ELAM Referring Unavailable GRACE, MARIANELA Perez Primary Care Unavailable DARBY PETERSON Attending Unavailable FIDENCIO ADORNO Referring Unavailable SHEETS, MARIANELA Perez Primary Care Unavailable PROVIDER, UNKNOWN Referring Unavailable GRACE, MARIANELA C Primary Care Unavailable ALYSIA ELAM Attending Unavailable MARIANELA EDWARDS C Primary Care Unavailable Brayden Underwood Referring Unavailable Care Physician, No Primary Primary Care Unava ilable Brayden Underwood Attending Unavailable Jaziel Lin Referring Unavailable Jaziel Lin Attending Unavailable Care Physician, No Primary Primary Care Unava ilable Star Linolas Consulting Unavailable Care Physician, No Primary Primary Care Unava ilable Sukhi Forbes Attending Unavailable White, Tere L Admitting Unavailable White, Tere L Consulting Unavailable Sergey, Isaias Consulting Unavailable Spittle, Jaziel Consulting Unavailable Care Physician, No Primary Primary Care Unava ilable White, Tere L Admitting Unavailable White, Tere L Attending Unavailable White, Tere L Consulting Unavailable Sergey, Isaias Attending Unavailable Sergey, Isaias Consulting Unavailable Art Forbesic Attending Unavailable Leidy Sukhi Consulting Unavailable Hardeep Patrick Attending Unavailable Riley Jaziel Referring Unavailable Barrerattdiane Jaziel Consulting Unavailable Care Physician, No Primary Primary Care Unava ilable Wapenski, Brayden Attending Unavailable Jaziel Lni Referring Unavailable Care Physician, No Primary Primary Care Unava ilable ARGENIS NAGY Referring Unavailable SHEETS, MARIANELA Perez Primary Care Unavailable ARGENIS NAGY Referring Unavailable SHEETS, MARIANELA C Primary Care Unavailable SHEETS, MARIANELA C Referring Unavailable SHEETS, MARIANELA C Primary Care Unavailable SHEETS, MARIANELA C Referring Unavailable SHEETS, MARIANELA C Primary Care Unavailable ARGENIS NAGY Attending Unavailable ARGENIS NAGY Referring Unavailable SHEETS, MARIANELA C Primary Care Unavailable SHEETS, MARIANELA C Referring Unavailable SHEETS, MARIANELA C Primary Care Unavailable ARGENIS NAGY Attending Unavailable ARGENIS NAGY Referring Unavailable SHEETS, MARIANELA C Primary Care Unavailable SHEETS, MARIANELA C Referring Unavailable SHEETS, MARIANELA C Primary Care Unavailable SHEETS, MARIANELA C Referring Unavailable SHEETS, MARIANELA C Primary Care Unavailable SHEETS, MARIANELA C Referring Unavailable SHEETS, MARIANELA C Primary Care Unavailable ARGENIS NAGY Attending Unavailable SHEETS, MARIANELA C Referring Unavailable SHEETS, MARIANELA C Primary Care Unavailable Medications Current Medications Medication Drug Class(es) Dates Sig (Normalized) Sig (Original) amLODIPine 10 mg oral tablet (3 sources) Dihydropyridine Calcium Channel Shawn Start: 11-23-2024 take 1 tablet by mouth once daily amLODIPine (NORVASC) 10 mg tablet Indications: Hypertension, essential TAKE 1 TABLET BY MOUTH EVERY DAY 90 tablet 11/23/2024 Active Start: 11-08-2024 take 1 tablet by fidelia th once daily amLODIPine (NORVASC) 10 mg tablet Indications: Hypertension, essential Take 1 tablet by mouth once daily. 90 tablet 11/08/2024 Active aspirin 81 mg delayed release oral tablet (20 sources) Platelet Aggregation Inhibitor, Nonsteroidal Anti-inflammatory Drug aspirin, enteric coated (ASPIRIN, ENTERIC COATED) 81 mg EC tablet Take 162 mg by mouth once daily. Active garlic preparation 1500 mg oral capsule (8 sources) Non-Standardized Food Allergenic Extract Garlic 1,500 mg cap Take 1,500 mg by mouth. Active ibandronic acid 150 mg oral tablet (5 sources) Bisphosphonate Start: 2024 take 1 tablet by mouth every month in the morning Ibandronate (BONIVA) 150 mg tablet Indications: Age-related osteoporosis without current pathological fracture Take 1 tablet by mouth once every month. In AM with cup of water on empty stomach. Nothing else by mouth and stay upright for 60 min. 3 tablet 3 11/07/2024 Active iv contrast (will be provided with radiology test) (1 source) Start: 2024 End: 2024 inject 1 dose intravenously once iv contrast (will be provided with radiology test) CTA ABD/PEL LE - No IV access, insert saline lock prior to the sedation, infusion, injection for imaging exam. Discontinue saline lock post exam. If Pt. has a central line or IVAD, may access for administration according to line specific nursing protocol. Once exam is complete flush line and de-access according to line specific nursing protocol in the CT contrast administration guidelines link. 1 Each 09/25/2024 2024 Active levothyroxine sodium 0.112 mg oral tablet (20 sources) l-Thyroxine Start: 2024 take 1 tablet by mouth once daily levothyroxine (SYNTHROID) 112 mcg tablet Take 1 tablet by mouth once daily. 30 tablet 1 10/03/2024 Active Start: 07-28-2024 End: 10-03-2024 take 1 tablet by mouth once daily levothyroxine (SYNTHROID) 125 mcg tablet TAKE 1 TABLET BY MOUTH EVERY DAY 30 tablet 1 09/24/2024 10/03/2024 Discontinued Start: 07-24-2024 take 1 tablet by fidelia th once daily before breakfast levothyroxine (SYNTHROID) 112 mcg tablet Indications: Hypothyroidism, acquired Take 1 tablet by mouth daily before breakfast. 30 tablet 1 07/24/2024 Active End: 07-24-2024 take 1 tablet by mouth once daily before breakfast levothyroxine (SYNTHROID) 100 mcg tablet Indications: Hypothyroidism, acquired Take 100 mcg by mouth daily before breakfast. 07/24/2024 Discontinued End: 07-24-2024 take 1 capsule by mouth once daily before breakfast levothyroxine 100 mcg cap Take 100 mcg by mouth daily before breakfast. 07/24/2024 Discontinued Completed/Discontinued Medications Medication Drug Class(es) Dates Sig (Normalized) Sig (Original) cilostazol 50 mg oral tablet (9 sources) Phosphodiesterase 3 Inhibitor Start: 09-25-2024 End: 11-27-2024 take 1 tablet by mouth twice daily cilostazol (PLETAL) 50 mg tablet Take 1 tablet by mouth two times a day. 180 tablet 09/25/2024 11/27/2024 Discontinued Problems Active Problems Problem Classification Problem Date Documented Da te Episodic/Chronic Diseases of white blood cells (18 sources) Leukocytosis; Translations: [Elevated white blood cell count, unspecified] Onset: 07-08-2024 07-08-2024 Chronic Disorders of lipid metabolism (16 sources) Mixed hyperlipidemia; Translations: [Mixed hyperlipidemia] Onset: 07-28-2024 07-28-2024 Chronic Essential hypertension (20 sources) Hypertensive disorder; Translations: [Essential (primary) hypertension] Onset: 07-08-2024 07-08-2024 Chronic Fracture of lower limb (3 sources) Displaced bicondylar fracture of left tibia, initial encounter for closed fracture; Translations: [Other fracture of upper and lower end of unspecified fibula, initial encounter for closed fracture] Onset: 03-21-2024 Episodic Hypertension with complications and secondary hypertension (19 sources) Hypertensive emergency; Translations: [Hypertensive emergency] Onset: 07-08-2024 07-08-2024 Chronic Occlusion or stenosis of precerebral arteries (18 sources) Right carotid artery occlusion; Translations: [Occlusion and stenosis of right carotid artery] Onset: 07-08-2024 07-08-2024 Chronic Osteoporosis (1 source) Senile osteoporosis; Translations: [Age-related osteoporosis without current pathological fracture] 11-07-2024 Chronic Other nervous system disorders (2 sources) Carpal tunnel syndrome, right upper limb; Translations: [Carpal tunnel syndrome, right upper limb] Onset: 07-18-2024 Chronic Other nervous system disorders (1 source) Tremor, unspecified; Translations: [Tremor, unspecified] Onset: 11-21-2024 Episodic Other non-traumatic joint disorders (1 source) Pain in unspecified shoulder; Translations: [Pain in unspecified shoulder] Onset: 11-21-2024 Episodic Other screening for suspected conditions (not mental disorders or infectious disease) (20 sources) Encounter for screening for other suspected endocrine disorder; Translations: [Encounter for screening for other metabolic disorders] Onset: 06-25-2024 06-25-2024 Episodic Peripheral and visceral atherosclerosis (11 sources) Peripheral vascular disease, unspecified; Translations: [Intermittent claudication] Onset: 06-25-2024 06-25-2024 Chronic Residual codes; unclassified (2 sources) Menopause present; Translations: [Asymptomatic menopausal state] 06-25-2024 Episodic Spondylosis; intervertebral disc disorders; other back problems (1 source) Cervicalgia; Translations: [Cervicalgia] Onset: 11-22-2024 Episodic Substance-related disorders (18 sources) Nicotine dependence; Translations: [Nicotine dependence, unspecified, uncomplicated] Onset: 07-10-2024 07-10-2024 Chronic Thyroid disorders (20 sources) Hypothyroidism, unspecified; Translations: [Acquired hypothyroidism] Onset: 06-25-2024 07-08-2024 Chronic Past or Other Problems Problem Classification Problem Date Documented Da te Episodic/Chronic Diabetes mellitus without complication (18 sources) Hyperglycemia; Translations: [Hyperglycemia, unspecified] Onset: 07-08-2024 07-08-2024 Episodic E Codes: Fall (1 source) Unspecified fall, initial encounter; Translations: [Unspecified fall, initial encounter] Onset: 03-21-2024 Episodic Headache; including migraine (1 source) Headache Onset: 07-08-2024 Episodic Immunizations and screening for infectious disease (3 sources) Encounter for immunization; Translations: [Patient encounter status] Onset: 06-25-2024 06-25-2024 Episodic Other circulatory disease (18 sources) History of cerebral aneurysm; Translations: [Personal history of other diseases of the circulatory system] Onset: 07-08-2024 07-08-2024 Episodic Other nervous system disorders (1 source) Paresthesia of skin; Translations: [Paresthesia of skin] Onset: 07-18-2024 Episodic Residual codes; unclassified (3 sources) Asymptomatic menopausal state; Translations: [Asymptomatic menopause] Onset: 06-25-2024 Episodic Varicose veins of lower extremity (2 sources) Varicose veins of lower extremity; Translations: [Varicose veins of bilateral lower extremities with other complications] Onset: 08-29-2024 07-31-2024 Episodic Results Test Name Value Interpretation Reference Range Facility TSH SerPl-aCncon 12-03-2024 TSH Qn 0.116 m[IU]/L Low 0.270-4.200 [facility] Comment on above: Order Comment: Speci men Type: BLOOD SPECIMEN Ordering Facility: [facility] Address: [address] [place] [address] Performed By: #### 2 4331-1 #### [facility] CLIA [id number] [address] [place] [address] [place] [facility] CLIA [id number] [address] [place] [address] [place] #### 3016-3 #### [facility] CLIA [id number] [address] [place] [address] [place] Spine Cervical (Routine)on 0 11-19-2024 Spine Cervical (Routine) [facility] Imaging Services [facility] [place] [address] Spine Cervical (Routine) MR#: [id number] Acct: [id number] Name: MINO BARRONMAUREEN ALYSHA Rep #: [id number] : 1955 F 69 From: Ravin Weinstein MD PCP: Care Physician,No Primary Status: REG CLI Study: Spine Cervical (Routine) Date of Exam: Exam# [id number] Ordering Dr: Brayden Underwood MD PROCEDURE: SPINE CERVICAL (ROUTINE) 11/19/2024 REASON FOR EXAM: NECK RADICULAR PAIN TECHNIQUE: T1, T2, stir, multiplanar and multisequence images were obtained without IV contrast administration. COMPARISON: None FINDINGS: There is loss of the lordosis. Vertebral body height is maintained. There is grade 1 spondylolisthesis at C4-5, 0.25 cm. There is Modic edema type endplate change at C6-7. The intervertebral disc signal shows desiccation. C2-C3: There is mild central disc protrusion. There is no lateral recess or foraminal stenosis. There is no central canal stenosis. C3-C4: There is moderate central disc protrusion. There is no lateral recess or foraminal stenosis. There is no central canal stenosis. C4-C5: There is moderate central disc protrusion. There is no lateral recess or foraminal stenosis. There is no central canal stenosis. C5-C6: There is moderate central, moderate right and mild left paracentral disc and osteophyte protrusion. There is moderate right lateral recess stenosis. There is moderate right foraminal narrowing secondary to disc and osteophyte protrusion. There is mild central canal stenosis. C6-C7: There is moderate central and right and left paracentral disc protrusion. There is mild right and moderate left lateral recess stenosis. There is moderate right and severe left foraminal narrowing secondary to disc and osteophyte protrusion. There is moderate central canal stenosis, partly secondary to ligamentous hypertrophy. C7-T1: There is minimal central disc protrusion. There is no lateral recess or foraminal stenosis. There is no central canal stenosis. The visualized cord shows normal signal characteristics. Adjacent soft tissues are grossly unremarkable. MRI/Spine Cervical (Routine) IMPRESSION: There is grade 1 spondylolisthesis at C4-5, 0.25 cm. There is Modic edema type endplate change at C6-7, which can indicate recent injury or active inflammation. There is mild central canal stenosis at C5-6, moderate central canal stenosis at C6-7, with lateral recess and foraminal narrowing. Reading Location: [facility] CC: Dr. 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 Time to recheck TSH. MIGUEL Dawson Kimberly C, 11/16/2024 9:35 AM Signed Order attached DO Grace Levy Kimberly C, 11/16/2024 9:35 AM Signed Addended by: MARIANELA EDWARDS on: 11/16/2024 09:35 AM Modules accepted: Orders Desire Moss MA 11/16/2024 4:12 PM Signed Left message informing patient, phone number to reach the office was left for any questions or concerns. Desire Moss MA Allergies As of Date: 11/16/2024 (No Known Allergies) Date Reviewed: 11/06/2024 Reviewed by: Selene Haile OCCA - Fully Assessed Reason for Visit: Lab Orders [1688] Primary Visit Diagnosis:Hypothyroidi sm, acquired [E03.9] Order(s):THYROID STIMULATING HORMONE [SQTSH] Order #: [id number] FUTURE Prescriptions as of 11/16/2024 - amLODIPine (NORVASC) 10 mg tablet Take 1 tablet by mouth once daily. - Ibandronate (BONIVA) 150 mg tablet Take 1 tablet by mouth once every month. In AM with cup of water on empty stomach. Nothing else by mouth and stay upright for 60 min. - levothyroxine (SYNTHROID) 112 mcg tablet Take 1 tablet by mouth once daily. - Garlic 1,500 mg cap Take 1,500 mg by mouth. - cilostazol (PLETAL) 50 mg tablet Take 1 tablet by mouth two times a day. - aspirin, enteric coated (ASPIRIN, ENTERIC COATED) 81 mg EC tablet Take 162 mg by mouth once daily. Problem List As Of Date 11/16/2024 Noted Resolved Hypertensive emergency [I16.1] 07/08/2024 Hypertension [I10] 07/08/2024 Right internal carotid occlusion [I65.21] 07/08/2024 History of left-sided carotid endarterectomy [Z*07/08/2024 History of cerebral aneurysm [Z86.79] 07/08/2024 Elevated serum creatinine [R79.89] 07/08/2024 Hyperglycemia [R73.9] 07/08/2024 Leukocytosis [D72.829] 07/08/2024 Nicotine use disorder, F17.2 [F17.200] 07/10/2024 Hyperlipidemia, mixed [E78.2] 07/28/2024 Hypothyroidism, acquired [E03.9] 07/28/2024 Encounter Status:Closed by DESIRE MOSS on 11/16/24 Normal [facility] Lipid 1996 panelon Cholesterol [Mass/Vol] 142 mg/dL Normal <200 [facility] Comment on above: Order Comment: Speci men Type: BLOOD SPECIMEN Ordering Facility: [facility] Address: [address] [place] [address] Result Comment: <200 mg/dL, Desirable 200-239 mg/dL, Borderline high >239 mg/dL, High Performed By: #### 2 4331-1 #### [facility] CLIA [id number] [address] [place] [address] [place] [facility] CLIA [id number] [address] [place] [address] Cholesterol in HDL [Mass/Vol] 53 mg/dL Normal >39 [facility] Comment on above: Order Comment: Cobyi men Type: BLOOD SPECIMEN Ordering Facility: [facility] Address: [address] [place] [address] Result Comment: 40-5 9 mg/dL, Acceptable >59 mg/dL, High: Negative risk factor for coronary heart disease <40 mg/dL, Low: Positive risk factor for coronary heart disease Performed By: #### 2 4331-1 #### [facility] CLIA [id number] [address] [place] [address] STATES OF [facility] CLIA [id number] [address] [place] [address] Cholesterol in LDL [Mass/Vol] 78 mg/dL Normal <100 [facility] Comment on above: Order Comment: Speci men Type: BLOOD SPECIMEN Ordering Facility: [facility] Address: [address] [place] [address] Result Comment: <100 mg/dL, Optimal 100-129 mg/dL, Near optimal/above optimal 130-159 mg/dL, Borderline high 160-189 mg/dL, High >189 mg/dL, Very high Secondary prevention optimal LDL Cholesterol levels are recommended to be <70 mg/dL LDL cholesterol is calculated using the Gill-NIH equation. Performed By: #### 2 4331-1 #### [facility] CLIA [id number] [address] [place] [address] [place] [facility] CLIA [id number] [address] [place] [address] [place] Cholesterol in LDL/Cholesterol in HDL [Mass ratio] 1.47 {ratio} Normal <2.54 [facility] Comment on above: Order Comment: Speci men Type: BLOOD SPECIMEN Ordering Facility: [facility] Address: [address] [place] [address] Result Comment: Refe cooper: 1. National Cholesterol Education Program ATP III Guideline At-A-Glance Quick Desk Reference: National Heart, Lung, and Blood [place]. National Institutes of Health. 2001: NIH Publication No. 01-3305. 2. An International Atherosclerosis Society position paper: global recommendations for the management of dyslipidemia: executive summary, Atherosclerosis. 2014: 232(2):410-413. Performed By: #### 2 4331-1 #### [facility] CLIA [id number] [address] [place] [address] [place] [facility] CLIA [id number] [address] [place] [address] [place] Cholesterol in VLDL [Mass/Vol] 8 mg/dL Normal <30 [facility] Comment on above: Order Comment: Speci men Type: BLOOD SPECIMEN Ordering Facility: [facility] Address: [address] [place] [address] Performed By: #### 2 4331-1 #### [facility] CLIA [id number] [address] [place] [address] [place] [id number] [address] [place] [address] [place] Cholesterol non HDL [Mass/Vol] 89 mg/dL Normal <130 [facility] Comment on above: Order Comment: Speci men Type: BLOOD SPECIMEN Ordering Facility: [facility] Address: [address] [place] [address] Result Comment: <130 mg/dL, Optimal 130-159 mg/dL, Near optimal/above optimal 160-189 mg/dL, Borderline high 190-219 mg/dL, High >219 mg/dL, Very high Secondary prevention optimal non HDL Cholesterol levels are recommended to be <100 mg/dL Performed By: #### 2 4331-1 #### [facility] CLIA [id number] [address] [place] [address] [place] [facility] CLIA [id number] [address] [place] [address] [place] Cholesterol.total/Cho lesterol in HDL [Mass ratio] 2.68 {ratio} Normal <5.10 [facility] Comment on above: Order Comment: Speci men Type: BLOOD SPECIMEN Ordering Facility: [facility] Address: [address] [place] [address] Performed By: #### 2 4331-1 #### [facility] CLIA [id number] [address] [place] [address] [place] [facility] CLIA [id number] [address] [place] [address] [place] FASTING TIME 12 hrs Normal [facility] Comment on above: Order Comment: Speci men Type: BLOOD SPECIMEN Ordering Facility: [facility] Address: [address] [place] [address] Performed By: #### 2 4331-1 #### [facility] CLIA [id number] [address] [place] [address] [place] [facility] CLIA [id number] [address] [place] [address] [place] Triglyceride [Mass/Vol] 53 mg/dL Normal <150 [facility] Comment on above: Order Comment: Speci men Type: BLOOD SPECIMEN Ordering Facility: [facility] Address: [address] [place] [address] Result Comment: <150 mg/dL, Normal 150-199 mg/dL, Borderline high 200-499 mg/dL, High >499 mg/dL, Very high Performed By: #### 2 4331-1 #### [facility] CLIA [id number] [address] [place] [address] [place] [facility] CLIA [id number] [address] [place] [address] CNPNon 11-07-2024 CNPN Telephone (AGFAMPLE) MAUREEN BARRON ([id number]) 1955 F T Date Time Provider Department 11/07/24 MARIANELA EDWARDS During your visit today, we recorded the following information about you: Gloria Srinivasan MA 11/07/2024 4:21 PM Signed Cecy Amaral [facility] [employer] who was out doing a home assessment on patient left message stating patient's BP today was elevated, left arm 180/88 and right arm 176/84. Patient's sister Leena also left message stating patient is willing to start on a BP medication now as her BP has been elevated for awhile. Requesting script be sent to [facility]. Please advise. MIGUEL Valladares Kimberly C, DO 11/08/2024 12:50 PM Addendum Spoke to pt - she would like to restart norvasc 10 mg daily and will f/u in 2 weeks for [place] BP Recheck DO Christopher Levy Brenda, LPN 11/08/2024 2:39 PM Signed Sent to [facility]. Sharee White LPN Allergies As of Date: 11/07/2024 (No Known Allergies) Date Reviewed: 11/06/2024 Reviewed by: Selene Haile OCCA - Fully Assessed Reason for Visit: Patient Update [1234] Prescriptions as of 11/08/2024 - amLODIPine (NORVASC) 10 mg tablet Take 1 tablet by mouth once daily. - Ibandronate (BONIVA) 150 mg tablet Take 1 tablet by mouth once every month. In AM with cup of water on empty stomach. Nothing else by mouth and stay upright for 60 min. - levothyroxine (SYNTHROID) 112 mcg tablet Take 1 tablet by mouth once daily. - Garlic 1,500 mg cap Take 1,500 mg by mouth. - cilostazol (PLETAL) 50 mg tablet Take 1 tablet by mouth two times a day. - aspirin, enteric coated (ASPIRIN, ENTERIC COATED) 81 mg EC tablet Take 162 mg by mouth once daily. Problem List As Of Date 11/07/2024 Noted Resolved Hypertensive emergency [I16.1] 07/08/2024 Hypertension [I10] 07/08/2024 Right internal carotid occlusion [I65.21] 07/08/2024 History of left-sided carotid endarterectomy [Z*07/08/2024 History of cerebral aneurysm [Z86.79] 07/08/2024 Elevated serum creatinine [R79.89] 07/08/2024 Hyperglycemia [R73.9] 07/08/2024 Leukocytosis [D72.829] 07/08/2024 Nicotine use disorder, F17.2 [F17.200] 07/10/2024 Hyperlipidemia, mixed [E78.2] 07/28/2024 Hypothyroidism, acquired [E03.9] 07/28/2024 Encounter Status:Closed by MARIANELA EDWARDS on 11/08/24 [facility] 11-06-2024 CNOV Office Visit (VASSWS ) MAUREEN BARRON ([id number]) 1955 F CHT Date Time Provider Department 11/06/24 9:30 AM ARGENIS NAGY During your visit today, we recorded the following information about you: Pulse Blood pressure 93/minute 190/108 Argenis Nagy DO 12/04/2024 2:41 PM Signed [facility]ASCULAR SURGERY OUTPATIENT VISIT DATE November 06, 2024 OUTPATIENT VISIT TYPE ESTABLISHED SERVICE DATE: 11/06/2024 SERVICE TIME: 10:51 AM PRIMARY CARE PHYSICIAN: Marianela Edwards DO HISTORY OF PRESENT ILLNESS: Ms. Barron is a 69 year old female who presents today for a vascular surgery follow-up visit after CTA. She has peripheral arterial disease. Describes pain with walking, pressure and aching. She has been taking pletal however notices no significant change in claudication. PAST MEDICAL HISTORY Diagnosis Date Aneurysm 2019 Cardiovascular disease 2010 Hypertension Leg fracture, left 01/2024 Thyroid disease PAST SURGICAL HISTORY Procedure Laterality Date BRAIN SURGERY HX aneurysm CAROTID - INTERNAL Bilateral HIP SURGERY HX anders placed SHX VASCULAR SURGERY 2019 SOCIAL HISTORY Social History Tobacco Use Smoking status: Every Day Current packs/day: 0.50 Types: Cigarettes Smokeless tobacco: Never Vaping Use Vaping status: Former Substance Use Topics Alcohol use: Not Currently Comment: rarely Drug use: Yes Types: Marijuana Comment: Smokes about 4 to 5 times daily MEDICATIONS: levothyroxine (SYNTHROID) 112 mcg tablet Take 1 tablet by mouth once daily. Garlic 1,500 mg cap Take 1,500 mg by mouth. cilostazol (PLETAL) 50 mg tablet Take 1 tablet by mouth two times a day. aspirin, enteric coated (ASPIRIN, ENTERIC COATED) 81 mg EC tablet Take 162 mg by mouth once daily. ALLERGIES: ALLERGIES No Known Allergies PHYSICAL EXAM: Pulse 93 SpO2 96% General: Alert and oriented Integumentary: Normal color, no rash, no lesions. Extremities: No deformity, no edema or tenderness, no joint swelling or clubbing. Neurological: Normal cognition and motor skills. Vascular: Non-palpable distal pulses Diagnostic tests reviewed for today's visit: Most recent labs Most recent imaging CTA- bilateral external iliac and common femoral disease, diffuse bilateral stenosis of SFA, popliteal and tibial vessels IMPRESSION: Ms. Barron is a 69 year old female with peripheral arterial disease . PLAN and RECOMMENDATIONS: Will get stress test She needs to follow up with Dr. Edwards regarding hypertension. She is agreeable to resume taking her medications She may benefit from revascularization (femoral endarterectomies with iliac intervention) as symptoms have persisted and are impacting day to day activities Will have her follow up in [place] with Dr. Padgett SIGNATURE: Argenis Nagy DO PATIENT NAME: Maureen Barron DATE: November 06, 2024 TIME: 10:51 AM Referring Provider: ARGENIS NAGY [[id number]] Allergies As of Date: 11/06/2024 (No Known Allergies) Date Reviewed: 11/06/2024 Reviewed by: Selene Haile OCCA - Fully Assessed Primary Visit Diagnosis:Encounter for screening for cardiovascular disorders [Z13.6] Other Visit Diagnoses:Claudication [I73.9] Primary hypertension [I10] Order(s):CONSULT TO VASCULAR SURGERY [9042] Order #: [id number]: 1 CONSULT TO CARDIOLOGY [9004] Order #: [id number]: 1 NM CARDIAC PERF STRESS/PHARM [3606422] Order #: [id number] FUTURE Prescriptions as of 12/04/2024 - cilostazol (PLETAL) 50 mg tablet TAKE 1 TABLET BY MOUTH TWICE A DAY - amLODIPine (NORVASC) 10 mg tablet TAKE 1 TABLET BY MOUTH EVERY DAY - Ibandronate (BONIVA) 150 mg tablet Take 1 tablet by mouth once every month. In AM with cup of water on empty stomach. Nothing else by mouth and stay upright for 60 min. - levothyroxine (SYNTHROID) 112 mcg tablet Take 1 tablet by mouth once daily. - Garlic 1,500 mg cap Take 1,500 mg by mouth. - aspirin, enteric coated (ASPIRIN, ENTERIC COATED) 81 mg EC tablet Take 162 mg by mouth once daily. Problem List As Of Date 11/06/2024 Noted Resolved Hypertensive emergency [I16.1] 07/08/2024 Hypertension [I10] 07/08/2024 Right internal carotid occlusion [I65.21] 07/08/2024 History of left-sided carotid endarterectomy [Z*07/08/2024 History of cerebral aneurysm [Z86.79] 07/08/2024 Elevated serum creatinine [R79.89] 07/08/2024 Hyperglycemia [R73.9] 07/08/2024 Leukocytosis [D72.829] 07/08/2024 Nicotine use disorder, F17.2 [F17.200] 07/10/2024 Hyperlipidemia, mixed [E78.2] 07/28/2024 Hypothyroidism, acquired [E03.9] 07/28/2024 Disposition: Return for stress test, follow up with Dr Padgett. Follow-up and Disposition History for Encounter Date Provider Department Center 11/06/2024 [id number] NAGY Encounte (more content not included)... Normal [facility] CNPNon 10-29-2024 CNPN Telephone (RALEIGHFAMPLE) MAUREEN BARRON ([id number]) 1955 F T Date Time Provider Department 10/29/24 MARIANELA EDWARDS During your visit today, we recorded the following information about you: Desire Moss MA 10/29/2024 7:40 AM Signed ----- Message from Shari Erickson MA sent at 07/31/2024 8:22 AM EST ----- FLP/CMP in 3 months DO Grace Levy Kimberly C, 10/29/2024 11:47 AM Signed Order DO Grace Alvarez Kimberly C, 10/29/2024 11:47 AM Signed Addended by: MARIANELA EDWARDS on: 10/29/2024 11:47 AM Modules accepted: Orders Shari López MA 10/29/2024 12:03 PM Signed Patient notified. Shari López MA Allergies As of Date: 10/29/2024 (No Known Allergies) Date Reviewed: 09/25/2024 Reviewed by: Selene Haile OCCA - Fully Assessed Reason for Visit: Lab Orders [1688] Primary Visit Diagnosis:Hyperlipidem ia, mixed [E78.2] Order(s):LIPID PANEL, FASTING [SQLIPB] Order #: [id number] FUTURE Prescriptions as of 10/29/2024 - levothyroxine (SYNTHROID) 112 mcg tablet Take 1 tablet by mouth once daily. - Garlic 1,500 mg cap Take 1,500 mg by mouth. - cilostazol (PLETAL) 50 mg tablet Take 1 tablet by mouth two times a day. - aspirin, enteric coated (ASPIRIN, ENTERIC COATED) 81 mg EC tablet Take 162 mg by mouth once daily. Problem List As Of Date 10/29/2024 Noted Resolved Hypertensive emergency [I16.1] 07/08/2024 Hypertension [I10] 07/08/2024 Right internal carotid occlusion [I65.21] 07/08/2024 History of left-sided carotid endarterectomy [Z*07/08/2024 History of cerebral aneurysm [Z86.79] 07/08/2024 Elevated serum creatinine [R79.89] 07/08/2024 Hyperglycemia [R73.9] 07/08/2024 Leukocytosis [D72.829] 07/08/2024 Nicotine use disorder, F17.2 [F17.200] 07/10/2024 Hyperlipidemia, mixed [E78.2] 07/28/2024 Hypothyroidism, acquired [E03.9] 07/28/2024 Encounter Status:Closed by DESIRE MOSS on 10/29/24 Normal [facility] CTA ABD/PEL/LOWER EXT W IVCO Non 10-19-2024 CTA ABD/PEL/LOWER EXT W IVCON * * *Final Report* * * DATE OF EXAM: Oct 19 2024 2:18PM [facility] [place] 0122 - CTA ABD/PEL/LOWER EXT W IVCON / PROCEDURE REASON: I73.9-Peripheral vascular disease (HCC) * * * * Physician Interpretation * * * * CTA abdomen and pelvis with lower extremity runoff HISTORY: Peripheral vascular disease TECHNIQUE: High-resolution contrast-enhanced helical CT of the abdomen, pelvis and both lower extremities was performed, timed to the arterial phase. 3-D processing was performed by the physician on an independent work station, with MIP and volume-rendering techniques. Total of 120 ml of Omnipaque 350 was injected IV during the examination. The study was performed without oral contrast. The patient tolerated the injection without complications. Dose-Length Product (DLP): 428 mGy*cm. CT Dose Reduction Employed: Automated exposure control(AEC) and iterative recon COMPARISON: No prior studies are available for comparison. LIMITATIONS: None FINDINGS: Visualized thoracic aorta: Mild atherosclerotic disease. Nonaneurysmal and without significant focal stenosis Abdominal aorta: Moderate atherosclerotic disease. Mural thrombus, ALEXANDRA. Nonaneurysmal. Mild concentric narrowing distal abdominal aorta from mixed plaque Branches of the Aorta: Celiac trunk patent origin, proximal mild narrowing, no poststenotic dilatation. Distal branches are patent. SMA and its branches are patent. Single right renal artery with moderate calcific narrowing of the proximal segment, distal branches are patent. Single left renal artery with short segment to severe mixed plaque stenosis in the proximal segment, distal branches are patent. SMA origin near occlusion with with heavy calcification, distal branches are reconstituted. RIGHT LEG: Right common iliac artery demonstrates atherosclerotic change without significant focal stenosis. Right external iliac artery demonstrates focal high grade (> 70 %) stenosis. Right internal iliac artery demonstrates multiple foci of moderate to high grade stenoses. Right common femoral artery demonstrates multiple foci of moderate to high grade stenoses, focal near occlusion Right profunda femoris artery is patent with no significant stenosis. Right superficial femoral artery demonstrates multiple foci of moderate to high grade stenoses. Right popliteal artery demonstrates multiple foci of moderate to high grade stenoses. Right anterior tibial artery is patent with no significant stenosis. Dorsalis pedis is seen and normal in appearance. Right tibioperoneal trunk demonstrates atherosclerotic change without significant focal stenosis. Right posterior tibial artery is diminutive. Pedal posterior tibial branches reconstituted partially. Right peroneal artery multifocal calcification with intermittent patency. LEFT LEG: Left common iliac artery demonstrates multiple foci of moderate stenoses. Left external iliac artery demonstrates atherosclerotic change without significant focal stenosis. Left internal iliac artery demonstrates multiple foci of moderate to high grade stenoses. Left common femoral artery demonstrates multiple foci of moderate to high grade stenoses. Left profunda femoris artery is patent with no significant stenosis. Left superficial femoral artery demonstrates multiple foci of moderate to high grade stenoses. Left popliteal artery demonstrates multiple foci of moderate to high grade stenoses. Left anterior tibial artery is patent with no significant stenosis. Dorsalis pedis is seen and normal in appearance. Left tibioperoneal trunk demonstrates atherosclerotic change without significant focal stenosis. Left posterior tibial artery is diminutive. Pedal posterior tibial branches reconstitutes at the ankle by peroneal collaterals. Left peroneal artery multifocal calcification with intermittent patency. Nonvascular findings: Bibasilar atelectasis. No focal or lobar consolidation. No pleural effusion. Liver morphology within normal limits. No intrahepatic biliary dilatation. No arterially enhancing hepatic lesions. Gallbladder nondistended. The spleen, pancreas, and adrenal glands are unremarkable. Multifocal cortical thinning and scarring which can be seen with prior ischemic insults. No obstructing renal stones. No hydronephrosis or hydroureters. No asymmetric wall thickening of the urinary bladder. No dilated loops of small bowel or bowel wall thickening. Sigmoid diverticulosis. No acute osseous process. Left lateral tibial plateau deformity likely from prior fracture. Left intercondylar nail fixation screw in the proximal femur IMPRESSION: Multifocal moderate to high grade atherosclerotic disease as detailed above. Diminutive posterior tibial arteries likely variant for patient. Both legs mainly perfused by the anterior tibial artery. The peroneal artery is intermittently patent with multifocal calcifica (more content not included)... Normal [facility] CTA Abdominal, Pelvis and Lo wer extremity vessels W contrast Anayeli 10-19-2024 IMPRESSION: Multifocal moderate to high grade atherosclerotic disease as detailed above. Diminutive posterior tibial arteries likely variant for patient. Both legs mainly perfused by the anterior tibial artery. The peroneal artery is intermittently patent with multifocal calcifications. Airway Traffic Controller: PSCB Transcribe Date/Time: Oct 19 2024 4:04P Dictated by : GERRY SMITH MD This examination was interpreted and the report reviewed and electronically signed by: GERRY SMITH MD on Oct 19 2024 4:16PM [facility] RAD[facility]OLOG[facility] * * *Final Report* * * DATE OF EXAM: Oct 19 2024 2:18PM [facility] [place] 0122 - CTA ABD/PEL/LOWER EXT W IVCON / PROCEDURE REASON: I73.9-Peripheral vascular disease (HCC) * * * * Physician Interpretation * * * * CTA abdomen and pelvis with lower extremity runoff HISTORY: Peripheral vascular disease TECHNIQUE: High-resolution contrast-enhanced helical CT of the abdomen, pelvis and both lower extremities was performed, timed to the arterial phase. 3-D processing was performed by the physician on an independent work station, with MIP and volume-rendering techniques. Total of 120 ml of Omnipaque 350 was injected IV during the examination. The study was performed without oral contrast. The patient tolerated the injection without complications. Dose-Length Product (DLP): 428 mGy*cm. CT Dose Reduction Employed: Automated exposure control(AEC) and iterative recon COMPARISON: No prior studies are available for comparison. LIMITATIONS: None FINDINGS: Visualized thoracic aorta: Mild atherosclerotic disease. Nonaneurysmal and without significant focal stenosis Abdominal aorta: Moderate atherosclerotic disease. Mural thrombus, ALEXADNRA. Nonaneurysmal. Mild concentric narrowing distal abdominal aorta from mixed plaque Branches of the Aorta: Celiac trunk patent origin, proximal mild narrowing, no poststenotic dilatation. Distal branches are patent. SMA and its branches are patent. Single right renal artery with moderate calcific narrowing of the proximal segment, distal branches are patent. Single left renal artery with short segment to severe mixed plaque stenosis in the proximal segment, distal branches are patent. SMA origin near occlusion with with heavy calcification, distal branches are reconstituted. RIGHT LEG: Right common iliac artery demonstrates atherosclerotic change without significant focal stenosis. Right external iliac artery demonstrates focal high grade (> 70 %) stenosis. Right internal iliac artery demonstrates multiple foci of moderate to high grade stenoses. Right common femoral artery demonstrates multiple foci of moderate to high grade stenoses, focal near occlusion Right profunda femoris artery is patent with no significant stenosis. Right superficial femoral artery demonstrates multiple foci of moderate to high grade stenoses. Right popliteal artery demonstrates multiple foci of moderate to high grade stenoses. Right anterior tibial artery is patent with no significant stenosis. Dorsalis pedis is seen and normal in appearance. Right tibioperoneal trunk demonstrates atherosclerotic change without significant focal stenosis. Right posterior tibial artery is diminutive. Pedal posterior tibial branches reconstituted partially. Right peroneal artery multifocal calcification with intermittent patency. LEFT LEG: Left common iliac artery demonstrates multiple foci of moderate stenoses. Left external iliac artery demonstrates atherosclerotic change without significant focal stenosis. Left internal iliac artery demonstrates multiple foci of moderate to high grade stenoses. Left common femoral artery demonstrates multiple foci of moderate to high grade stenoses. Left profunda femoris artery is patent with no significant stenosis. Left superficial femoral artery demonstrates multiple foci of moderate to high grade stenoses. Left popliteal artery demonstrates multiple foci of moderate to high grade stenoses. Left anterior tibial artery is patent with no significant stenosis. Dorsalis pedis is seen and normal in appearance. Left tibioperoneal trunk demonstrates atherosclerotic change without significant focal stenosis. Left posterior tibial artery is diminutive. Pedal posterior tibial branches reconstitutes at the ankle by peroneal collaterals. Left peroneal artery multifocal calcification with intermittent patency. Nonvascular findings: Bibasilar atelectasis. No focal or lobar consolidation. No pleural effusion. Liver morphology within normal limits. No intrahepatic biliary dilatation. No arterially enhancing hepatic lesions. Gallbladder nondistended. The spleen, pancreas, and adrenal glands are unremarkable. Multifocal cortical thinning and scarring which can be seen with prior ischemic insults. No obstructing renal stones. No hydronephrosis or hydroureters. No asymmetric wall thickening of the urinary bladder. No dilated loops of small bowel or bowel wall thickening. Sigmoid diverticulosis. No acute osseous process. Left lateral tibial plateau deformity likely from prior fracture. Left intercondylar nail fixation screw in the proximal femur [facility] Provider, [facility] - 10/19/2024 * * *Final Report* * * DATE OF EXAM: Oct 19 2024 2:18PM [facility] [place] 0122 - CTA ABD/PEL/LOWER EXT W IVCON / PROCEDURE REASON: I73.9-Peripheral vascular disease (HCC) * * * * Physician Interpretation * * * * CTA abdomen and pelvis with lower extremity runoff HISTORY: Peripheral vascular disease TECHNIQUE: High-resolution contrast-enhanced helical CT of the abdomen, pelvis and both lower extremities was performed, timed to the arterial phase. 3-D processing was performed by the physician on an independent work station, with MIP and volume-rendering techniques. Total of 120 ml of Omnipaque 350 was injected IV during the examination. The study was performed without oral contrast. The patient tolerated the injection without complications. Dose-Length Product (DLP): 428 mGy*cm. CT Dose Reduction Employed: Automated exposure control(AEC) and iterative recon COMPARISON: No prior studies are available for comparison. LIMITATIONS: None FINDINGS: Visualized thoracic aorta: Mild atherosclerotic disease. Nonaneurysmal and without significant focal stenosis Abdominal aorta: Moderate atherosclerotic disease. Mural thrombus, ALEXANDRA. Nonaneurysmal. Mild concentric narrowing distal abdominal aorta from mixed plaque Branches of the Aorta: Celiac trunk patent origin, proximal mild narrowing, no poststenotic dilatation. Distal branches are patent. SMA and its branches are patent. Single right renal artery with moderate calcific narrowing of the proximal segment, distal branches are patent. Single left renal artery with short segment to severe mixed plaque stenosis in the proximal segment, distal branches are patent. SMA origin near occlusion with with heavy calcification, distal branches are reconstituted. RIGHT LEG: Right common iliac artery demonstrates atherosclerotic change without significant focal stenosis. Right external iliac artery demonstrates focal high grade (> 70 %) stenosis. Right internal iliac artery demonstrates multiple foci of moderate to high grade stenoses. Right common femoral artery demonstrates multiple foci of moderate to high grade stenoses, focal near occlusion Right profunda femoris artery is patent with no significant stenosis. Right superficial femoral artery demonstrates multiple foci of moderate to high grade stenoses. Right popliteal artery demonstrates multiple foci of moderate to high grade stenoses. Right anterior tibial artery is patent with no significant stenosis. Dorsalis pedis is seen and normal in appearance. Right tibioperoneal trunk demonstrates atherosclerotic change without significant focal stenosis. Right posterior tibial artery is diminutive. Pedal posterior tibial branches reconstituted partially. Right peroneal artery multifocal calcification with intermittent patency. LEFT LEG: Left common iliac artery demonstrates multiple foci of moderate stenoses. Left external iliac artery demonstrates atherosclerotic change without significant focal stenosis. Left internal iliac artery demonstrates multiple foci of moderate to high grade stenoses. Left common femoral artery demonstrates multiple foci of moderate to high grade stenoses. Left profunda femoris artery is patent with no significant stenosis. Left superficial femoral artery demonstrates multiple foci of moderate to high grade stenoses. Left popliteal artery demonstrates multiple foci of moderate to high grade stenoses. Left anterior tibial artery is patent with no significant stenosis. Dorsalis pedis is seen and normal in appearance. Left tibioperoneal trunk demonstrates atherosclerotic change without significant focal stenosis. Left posterior tibial artery is diminutive. Pedal posterior tibial branches reconstitutes at the ankle by peroneal collaterals. Left peroneal artery multifocal calcification with intermittent patency. Nonvascular findings: Bibasilar atelectasis. No focal or lobar consolidation. No pleural effusion. Liver morphology within normal limits. No intrahepatic biliary dilatation. No arterially enhancing hepatic lesions. Gallbladder nondistended. The spleen, pancreas, and adrenal glands are unremarkable. Multifocal cortical thinning and scarring which can be seen with prior ischemic insults. No obstructing renal stones. No hydronephrosis or hydroureters. No asymmetric wall thickening of the urinary bladder. No dilated loops of small bowel or bowel wall thickening. Sigmoid diverticulosis. No acute osseous process. Left lateral tibial plateau deformity likely from prior fracture. Left intercondylar nail fixation screw in the proximal femur IMPRESSION IMPRESSION: Multifocal moderate to high grade atherosclerotic disease as detailed above. Diminutive posterior tibial arteries likely haydee (more content not included)... [facility] Radiology Study observation (narrative) [facility] CTA Abdominal, Pelvis and Lo wer extremity vessels W contrast IVOrdered By: [facility] Provider on 10-19-2024 [facility] NURSING PROGon 10-19-2024 NURSING PROG HNO ID: [id number] Author: MARBELLA MARIE RN Service: Radiology Author Type: Registered Nurse Type: Nursing Progress Note Filed: 10/19/2024 13:57 Note Text: Radiology Service Progress Note DATE OF SERVICE: October 19, 2024 TIME: 1:56 PM PATIENT WEIGHT: 119LBS PATIENT IDENTITY VERIFICATION COMPLETED USING TWO (2) STANDARD IDENTIFIERS: Name and Date of confirmed by patient verbally and Name and Date of confirmed by identification band. FALL SCREENING: Has the patient had 2 falls in the last year or 1 fall with injury or currently using an Ambulatory Assistive Device (Walker, Cane, Wheelchair, Crutches, etc.)? No PATIENT GENDER DATA: Assigned female at . status: : No status: NO. ALLERGIES: Reviewed and unchanged CONTRAST ALLERGY: No EXAM: CT -CONTRAST INDUCED NEPHROPATHY RISK FACTORS: Not applicable CREATININE: Creatinine Date Value Ref Range Status 09/25/2024 1.19 (H) 0.58 - 0.96 mg/dL Final 07/26/2024 1.48 (H) 0.58 - 0.96 mg/dL Final 07/09/2024 1.20 (H) 0.51 - 0.95 mg/dL Final Comment: Patients receiving either N-Acetylcysteine (NAC) or Metamizole prior to venipuncture, may have falsely depressed results. Estimated Glomerular Filtration Rate Date Value Ref Range Status 09/25/2024 50 (L) >=60 mL/min/1.73m? Final Comment: Estimated Glomerular Filtration Rate (eGFR) is calculated using the 2020 CKD-EPI creatinine equation. This equation utilizes serum creatinine, sex, and age as parameters. The creatinine assay has traceable calibration to isotope dilution-mass spectrometry. Refer to KDIGO guidelines for clinical interpretation. In patients with unstable renal function, e.g. those with acute kidney injury, the eGFR may not accurately reflect actual GFR. P.O.C.T. RESULTS: N/A October 19, 2024 TREATMENT: N/A IV SITE: Ambulatory: A peripheral IV was started in the Right with a Angio cath: 20 gauge. IV SITE APPEARANCE: Clean,Dry and Intact SIGNATURE: Marbella Marie RN PATIENT NAME: Maureen Barron DATE: October 19, 2024 TIME: 1:56 PM [facility] Neurology Visit Reporton Neurology Visit Report Page Neurology [address], [address] [place] [address] OFFICE VISIT Date of Service: 10/18/24 MR#: [id number] Acct: [id number] Name: MAUREEN BARRON Rep #: [id number] : 1955 Provider: Dr. Brayden garcia MD Age/Sex: 69/F Location: [facility] Status: Signed HPI HPI Chief Complaint: Establish Care Details: The patient is a 69-year-old right handed female who presents to [facility] [place] She was referred 08/03/[address] Jaziel Lin with [facility] for right carpal tunnel syndrome. This patient presents with her sister for evaluation. Patient is able to provide information on her own behalf. Sister also provided information. Outside records were reviewed. Patient indicates that she has had a rough life. She was homeless in [place] for a number of years. Patient had a prior history of polysubstance abuse and alcohol use disorder. She is now 5 and half years clean. She may have very limited alcohol intake. She does smoke cigarettes that she rolls on her own approximately 3/day. She also smokes marijuana. Patient had been without health care for an extended period of time. Within the past year she moved to [facility] and has reestablished health care. Patient does have multiple medical issues. Please see past medical history for details. At this point there are a number of medical considerations. 1 is a right internal carotid artery occlusion which has been present for years. The second is a high-grade stenosis left internal carotid artery that had been treated with endarterectomy. 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 Patient is somewhat vague in these details. Reports of these findings by CT scan and CTA are available. I have reviewed the reports. These findings were noted during a hospitalization in 2019 at [facility] in [place]. Patient had extensive workup for a variety of medical issues while at [facility] in [place]. She had presented with a concern for stroke based on a right facial droop. 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 Patient had been evaluated at [facility] for tingling and numbness of the right hand. Because of a tremor in the right hand she was referred to neurology for further assessment. In discussing this case further patient indicated that she had a tremor in the right hand and to a lesser degree the left hand. The tremor in the right hand is variable and can be very pronounced at times. In association with that she does scribes variable neck pain and pain radiating into the right shoulder along the trapezius. Patient did have a CT scan of the neck which demonstrated advanced cervical spondylosis and arthritic change. No MRI had been performed. Whether or not she is a candidate for MRI of the cervical spine is not clear. 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 That is a detail that would be evaluated by radiology department. I did discuss this specifically with radiology so that they could determine her eligibility for MRI of the neck. 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 It is interesting note that CT scans at the time did not demonstrate presence of a cerebellar infarct. Other concerns for this patient include the fact that she had been a polysubstance use disorder and alcohol use disorder individual. Even though she is clean now these may have some bearing on delayed symptoms which may occur later in age with accelerated a proptosis. No family history for tremor noted. Patient does have a history of osteoporosis. A bone density test had been performed. I am uncertain as to whether or not the patient is receiving specific treatment for that. She did indicate that she was taking calcium but therapy may also include vitamin D and perhaps other medications as well. This would be deferred to primary care but has a bearing with regard to progressive cervical spondylosis and likely lumbar spondylosis in this case. Her additional neurologic issues include lumbar pain and right foot and right leg sciatica. She denies having had seizures and denies having had prior strokes. Patient denies having any cardiac history but may have vascular compromise to both legs and is currently seeing vascular surgery. ROS: General: No recent respiratory illnesses. States she has COPD. HEENT: No headache. Possible prior head traumas patient does not particularly elaborate on. Eyes clear. Nose no epistaxis Respiratory: No hemoptysis. No respiratory difficulty. Cardiac: No marci (more content not included)... [facility] Office Visit (ZAYSWS ) MAUREEN ANSARI ([id number]) 1955 F T Date Time Provider Department 09/25/24 9:00 AM ARGENIS NAGY During your visit today, we recorded the following information about you: Pulse Blood pressure 83/minute 157/78 Argenis Nagy DO 09/25/2024 1:14 PM Signed [facility] [place] DEPARTMENT OF VASCULAR SURGERY OUTPATIENT VISIT DATE September 25, 2024 OUTPATIENT VISIT TYPE ESTABLISHED SERVICE DATE: 09/25/2024 SERVICE TIME: 9:48 AM PRIMARY CARE PHYSICIAN: Marianela Edwards DO HISTORY OF PRESENT ILLNESS: Ms. Mino Barron is a 68 year old female who presents today for a vascular surgery follow-up visit after venous reflux testing and PVRs. She continues to have bilateral lower extremity lifestyle limiting claudication. She does smoke however trying to cut back on amount. Denies rest pain or ulceration PAST MEDICAL HISTORY Diagnosis Date Aneurysm (HCC) 2019 Cardiovascular disease 2010 Hypertension Leg fracture, left 01/2024 Thyroid disease PAST SURGICAL HISTORY Procedure Laterality Date BRAIN SURGERY HX aneurysm CAROTID - INTERNAL Bilateral HIP SURGERY HX anders placed SHX VASCULAR SURGERY 2019 SOCIAL HISTORY Social History Tobacco Use Smoking status: Every Day Current packs/day: 0.50 Types: Cigarettes Smokeless tobacco: Never Vaping Use Vaping status: Former Substance Use Topics Alcohol use: Not Currently Comment: rarely Drug use: Yes Types: Marijuana Comment: Smokes about 4 to 5 times daily MEDICATIONS: Garlic 1,500 mg cap Take 1,500 mg by mouth. levothyroxine (SYNTHROID) 125 mcg tablet TAKE 1 TABLET BY MOUTH EVERY DAY aspirin, enteric coated (ASPIRIN, ENTERIC COATED) 81 mg EC tablet Take 162 mg by mouth once daily. ALLERGIES: ALLERGIES No Known Allergies PHYSICAL EXAM: BP 157/78 (BP Site: Right Arm, BP Position: Sitting, BP Cuff Size: Regular Adult) Pulse 83 SpO2 96% Gen- no distress Ext- nonpalpable distal pulse, no ulceration or tissue loss, bilateral prominent superficial veins, spider veins Diagnostic tests reviewed for today's visit: Most recent labs Most recent imaging PVRs The patient has an VINCE consistent with a diagnosis of peripheral artery disease. Consider referral to a vascular specialist for evaluation unless already implemented. RIGHT SIDE Resting right ankle brachial index: 0.64 Post exercise right ankle brachial index: 0.43 Right toe brachial index: 0.40 Abnormal ankle brachial index at rest diagnostic of peripheral artery disease. Right ankle: Moderate disease at rest. Aortic or bilateral iliofemoral disease. Right distal superficial femoral and/or popliteal disease. Note drop in pressure and/or ankle-brachial index after exercise. LEFT SIDE Resting left ankle brachial index: 0.69 Post exercise left ankle brachial index: 0.66 Left toe brachial index: 0.44 Abnormal ankle brachial index at rest diagnostic of peripheral artery disease. Left ankle: Moderate disease at rest. Aortic or bilateral iliofemoral disease. Left distal superficial femoral and/or popliteal disease. No significant change in pressure and/or ankle-brachial index with exercise. Venous Reflux RIGHT SIDE - DEEP VEINS Negative for acute deep vein thrombosis in vessels visualized. RIGHT SIDE - SUPERFICIAL VEINS Negative for valvular incompetency in the great saphenous vein. Discontinuous vein proximal thigh. Small branches/spider veins proximal to mid calf/heaton. Negative for valvular incompetency in the small saphenous vein. Branches mid calf. LEFT SIDE - DEEP VEINS Negative for acute deep vein thrombosis in vessels visualized. LEFT SIDE - SUPERFICIAL VEINS Negative for valvular incompetency in the great saphenous vein. Discontinuous vein proximal to mid thigh. Negative for valvular incompetency in the anterior accessory great saphenous vein. Negative for valvular incompetency i IMPRESSION: Ms. Mino Barron is a 68 year old female with peripheral arterial disease with short-distance claudication . PLAN and RECOMMENDATIONS: Reviewed PVRs and venous duplex Will get CTA with run-off as symptoms are impacting day to day activities Continue current non-interventional therapy with a trial of pletal Follow up after CT scan SIGNATURE: Argenis Nagy DO PATIENT NAME: Maureen Barron DATE: September 25, 2024 TIME: 9:48 AM Referring Provider: ARGENIS NAGY [[id number]] Allergies As of Date: 09/25/2024 (No Known Allergies) Date Reviewed: 09/25/2024 Reviewed by: Selene Haile OCCA - Fully Assessed Reason for Visit: Established Patient [175] Primary Visit Diagnosis:Peripheral vascular disease (HCC) [I73.9] Other Visit Diagnosis:Screening for nephropathy [Z13.89] Order(s):CTA ABD/PEL LOWER EXTREM W IVCON [[id number]] Order #: [id number] (more content not included)... Normal [facility] CREATININE BLDOrdered By: Jan Connor on 09-25-2024 Creatinine [Mass/Vol] 1.19 mg/dL High 0.58 - 0.96 mg/dL [facility] GFR/1.73 sq M.predicted among non-blacks MDRD (S/P/Bld) [Vol rate/Area] 50 mL/min/{1.73_m2} Low - PINF [facility] Comment on above: Estimated Glomerular Filtration Rate (eGFR) is calculated using the 2020 CKD-EPI creatinine equation. This equation utilizes serum creatinine, sex, and age as parameters. The creatinine assay has traceable calibration to isotope dilution-mass spectrometry. Refer to KDIGO guidelines for clinical interpretation. In patients with unstable renal function, e.g. those with acute kidney injury, the eGFR may not accurately reflect actual GFR. Interpretation and review of laboratory results Abnormal [facility] CREATININE BLDon 09-25-2024 Creatinine [Mass/Vol] 1.19 mg/dL High 0.58-0.96 [facility] Comment on above: Order Comment: Marika hammonds Type: BLOOD SPECIMEN Ordering Facility: [facility] Address: [address] [place] [address] Performed By: #### 2 4331-1 #### [facility] CLIA [id number] [address] [place] [address] [place] [facility] [id number] [place] [address] [place] #### 3016-3 #### [facility] CLIA [id number] [address] [place] [address] [place] Creatinine and Glomerular filtration rate.predicted panel (S/P/Bld) 50 mL/min/1.73m??? Low >=60 [facility] Comment on above: Order Comment: Marika hammonds Type: BLOOD SPECIMEN Ordering Facility: [facility] Address: [address] [place] [address] Result Comment: Maru mated Glomerular Filtration Rate (eGFR) is calculated using the 2020 CKD-EPI creatinine equation. This equation utilizes serum creatinine, sex, and age as parameters. The creatinine assay has traceable calibration to isotope dilution-mass spectrometry. Refer to KDIGO guidelines for clinical interpretation. In patients with unstable renal function, e.g. those with acute kidney injury, the eGFR may not accurately reflect actual GFR. Performed By: #### 2 4331-1 #### [facility] CLIA [id number] [address] [place] [address] [place] [facility] CLIA [id number] [address] [place] [address] [place] #### 3016-3 #### [facility] CLIA [id number] [address] [place] [address] [place] TSH SerPl-aCncon 09-25-2024 TSH Qn 0.063 m[IU]/L Low 0.270-4.200 [facility] Comment on above: Order Comment: Speci men Type: BLOOD SPECIMEN Ordering Facility: [facility] Address: [address] [place] [address] Performed By: #### 2 4331-1 #### [facility] CLIA [id number] [address] [place] [address] [place] [facility] CLIA [id number] [address] [place] [address] [place] #### 3016-3 #### [facility] CLIA [id number] [address] [place] [address] [place] CNPNon 09-11-2024 CNPN Telephone (AGFAMPLE) MAUREEN ANSARI ([id number]) 1955 F CHT Date Time Provider Department 09/11/24 MARIANELA EDWARDS During your visit today, we recorded the following information about you: Gloria Srinivasan MA 09/11/2024 7:49 AM Signed ----- Message from Shari Erickson MA sent at 07/31/2024 8:22 AM EST ----- Please put in reminder for pt to have TSH in 6 weeks, Marianela Edwards DO 09/18/2024 10:46 AM Signed Order attached DO Keo Levy Mary, MA 09/18/2024 11:07 AM Signed Patient notified. Shari López MA Allergies As of Date: 09/11/2024 (No Known Allergies) Date Reviewed: 07/31/2024 Reviewed by: Selene Haile OCCA - Fully Assessed Reason for Visit: Lab Orders [1688] Primary Visit Diagnosis:Hypothyroidi sm, acquired [E03.9] Order(s):THYROID STIMULATING HORMONE [SQTSH] Order #: [id number] FUTURE Prescriptions as of 09/18/2024 - levothyroxine (SYNTHROID) 125 mcg tablet Take 1 tablet by mouth once daily. - aspirin, enteric coated (ASPIRIN, ENTERIC COATED) 81 mg EC tablet Take 162 mg by mouth once daily. Problem List As Of Date 09/11/2024 Noted Resolved Hypertensive emergency [I16.1] 07/08/2024 Hypertension [I10] 07/08/2024 Right internal carotid occlusion [I65.21] 07/08/2024 History of left-sided carotid endarterectomy [Z*07/08/2024 History of cerebral aneurysm [Z86.79] 07/08/2024 Elevated serum creatinine [R79.89] 07/08/2024 Hyperglycemia [R73.9] 07/08/2024 Leukocytosis [D72.829] 07/08/2024 Nicotine use disorder, F17.2 [F17.200] 07/10/2024 Hyperlipidemia, mixed [E78.2] 07/28/2024 Hypothyroidism, acquired [E03.9] 07/28/2024 Encounter Status:Closed by SHARI LÓPEZ on 09/18/24 [facility] BD DXA - AXIAL SKELETONon BD DXA - AXIAL SKELETON * * *Final Report* * * DATE OF EXAM: Aug 30 2024 1:57PM [facility] 0804 - BD DXA - AXIAL SKELETON / PROCEDURE REASON: Asymptomatic menopause * * * * Physician Interpretation * * * * EXAMINATION: DXA BONE DENSITOMETRY BD DXA - AXIAL SKELETON PATIENT DEMOGRAPHICS: Age: 68 years, Gender: Female SCANNER INFORMATION: DXA Model: [employer] - shipbeat C 80202 Date Scanned: 08/30/2024 1:57 PM CLINICAL HISTORY: DIAGNOSTIC Asymptomatic menopause . RISK FACTORS FOR OSTEOPOROSIS AND ASSOCIATED FRACTURES REPORTED BY THIS PATIENT: Please refer to Bone Health Questionnaire in the EMR CURRENT THERAPY: Please refer to Bone Health Questionnaire in the EMR TECHNICAL LIMITATIONS: No left hip RESULTS: Lumbar spine (L1, L2, L3, L4): 0.717 g/cm2, T-score -3.0, Z-score -1.0 Right Femoral Neck: 0.447 g/cm2, T-score -3.6, Z-score -1.9 Right Total Hip: 0.594 g/cm2, T-score -2.9, Z-score -1.5 No comparison data - the patient has not had a previous bone density in the [facility] or the previous bone density was performed on a different DXA machine (new, updated model or different location) within the [facility]. VERTEBRAL FRACTURE ASSESSMENT Not performed. IMPRESSION: THE LOWEST T-SCORE IS -3.6 IN THE RIGHT HIP 1) DIAGNOSIS (based on BMD alone): OSTEOPOROSIS Caution: Medical conditions other than osteoporosis may cause low bone density, such as osteomalacia or renal osteodystrophy. Clinical correlation is necessary. 2) FRACTURE RISK (based on FRAX): 10-year absolute fracture risk: - major osteoporotic fracture = 36 % - hip fracture = 20 % - A diagnosis of Osteoporosis, a 10 year probability of hip fracture greater than or equal to 3% or a 10 year probability of any major osteoporosis-related fracture greater than or equal to 20% should be considered for treatment. - DXA scanner generated FRAX calculations may slightly differ from online FRAX calculations due to differences in software versions. - All recommendations and calculations are to be considered as guidelines and should not replace sound clinical judgement - Caution: Fracture risk may be increased independent of BMD in patients with corticosteroid use, age greater than 65 years, or a history of prior fragility fracture. RECOMMENDATIONS: Follow-up in 2 years or as clinically indicated. Patients that are taking corticosteroids, are transplant recipients or have hyperparathyroidism should have annual follow-up. Follow-up scans should always be done on the same machine for accurate comparison. FOR MORE INFORMATION ABOUT DIAGNOSIS AND TREATMENT: [facility] for Osteoporosis and Metabolic Bone Disease:? www.ccf.org/arthritis/ osteo National Osteoporosis Foundation:? www.nof.org International Society of Clinical Densitometry www.iscd.org Airway Traffic Controller: GARY Transcribe Date/Time: Sep 03 2024 9:28A Dictated by : MAYELA ZAVALA MD This examination was interpreted and the report reviewed and electronically signed by: MAYELA ZAVALA MD on Sep 03 2024 9:29AM EST [id number] Normal [facility] BRAD SCREENING W TOMOon 08-30 BRAD SCREENING W RONALD * * *Final Report* * * DATE OF EXAM: Aug 30 2024 1:32PM [facility] [id number] - BRAD SCREENING W RONALD / PROCEDURE REASON: Encounter for screening mammogram for breast cancer * * * * Physician Interpretation * * * * RESULT: [facility] [address] [place] [address] #[id number] - BRAD SCREENING W RONALD HISTORY: 68 year-old patient seen for screening and is asymptomatic in both breasts. Patient states no personal history of breast cancer. COMPARISON STUDIES: This is a baseline study. MAMMOGRAM TECHNIQUE: The study was acquired using full field digital technology and interpreted from soft copy. Digital Breast Tomosynthesis (DBT) images were obtained and used to assist in the interpretation of this examination. Computer-aided detection was utilized by the radiologist in the interpretation of this examination. MAMMOGRAM FINDINGS: There are scattered areas of fibroglandular density. No suspicious masses, calcifications or other abnormalities are seen in either breast. IMPRESSION: There is no mammographic evidence of malignancy in either breast. Routine screening mammogram is recommended. Annual mammogram will be due in 1 year. BI-RADS Category 1: Negative RISK: Based on the Tyrer-Cuzick (TC) risk assessment model, this patient has a 2.2% lifetime risk of developing breast cancer, meaning they are at average risk for developing breast cancer. However, this is only an estimate based on available history provided on the patient's questionnaire. We encourage all patients to talk with their providers about these results, further recommendations for managing breast health, and appropriate supplemental screening options if the patient has dense breast tissue. Interpreting Radiologist: Nikunj Andrews M.D. Electronically signed on: 08/31/2024 Airway Traffic Controller: ANITRA Transcribe Date/Time: Aug 30 2024 12:53P Dictated by: NIKUNJ ANDREWS MD This examination was interpreted and the report reviewed and electronically signed by: NIKUNJ ANDREWS MD on Aug 31 2024 8:06AM EST [id number] Normal [facility] PVR LEG [facility]on 2024 PVR [facility] Non-Invasive Vascula r Laboratory [facility] Lower Extremity Arterial Physiology Study Bilateral/Complete Date of service/time: 08/29/2024 12:27:55 PM Name: MS. MAUREEN BARRON Date of : 1955 Age: 68 years Gender: F Clinical Indication Claudication. TECHNIQUE -------- An arterial physiological examination was performed, including measurement of blood pressures using continuous wave Doppler and recording of plethysmographic with or without Doppler waveforms at the below-mentioned limb segments. FINDINGS -------- RIGHT SIDE AT REST Right Doppler Waveforms Dorsalis pedis: Monophasic. Post tibial: Monophasic. Right Pressures Brachial: 183 mmHg High thigh: 150 mmHg Low thigh: 143 mmHg Calf: 120 mmHg Ankle dorsalis pedis: 117 mmHg VINCE: 0.64 Ankle posterior tibial: 113 mmHg VINCE: 0.62 Digit: 74 mmHg Right PVR Waveforms High thigh: Moderately dampened. Low thigh: Moderately dampened. Calf: Moderately dampened. Ankle: Moderately dampened. Transmetatarsal: Moderately dampened. Digit: Moderately dampened. LEFT SIDE AT REST Left Doppler Waveforms Dorsalis pedis: Monophasic. Post tibial: Monophasic. Left Pressures Brachial: 182 mmHg High thigh: 166 mmHg Low thigh: 159 mmHg Calf: 134 mmHg Ankle dorsalis pedis: 124 mmHg VINCE: 0.68 Ankle posterior tibial: 126 mmHg VINCE: 0.69 Digit: 80 mmHg Left PVR Waveforms High thigh: Mildly dampened. Low thigh: Moderately dampened. Calf: Moderately dampened. Ankle: Moderately dampened. Transmetatarsal: Moderately dampened. Digit: Moderately dampened. POST EXERCISE Toe raises. Onset of claudication: 1 min 5 sec Maximal walking time: 1 min 45 sec Exercise symptoms 1 min 5 sec: right calf pain 1 min 20 sec: left calf pain Reason test was terminated: worsening claudication and generalized tiredness or weakness. Time to symptom recovery: 0 min 35 sec Post Exercise: Immediate Right Pressures and Waveform Brachial: 192 mmHg Ankle: 82 mmHg VINCE: 0.43 Ankle waveform: Moderately dampened. Left Pressures and Waveform Ankle: 127 mmHg VINCE: 0.66 Ankle waveform: Moderately dampened. IMPRESSION The patient has an VINCE consistent with a diagnosis of peripheral artery disease. Consider referral to a vascular specialist for evaluation unless already implemented. RIGHT SIDE Resting right ankle brachial index: 0.64 Post exercise right ankle brachial index: 0.43 Right toe brachial index: 0.40 Abnormal ankle brachial index at rest diagnostic of peripheral artery disease. Right ankle: Moderate disease at rest. Aortic or bilateral iliofemoral disease. Right distal superficial femoral and/or popliteal disease. Note drop in pressure and/or ankle-brachial index after exercise. LEFT SIDE Resting left ankle brachial index: 0.69 Post exercise left ankle brachial index: 0.66 Left toe brachial index: 0.44 Abnormal ankle brachial index at rest diagnostic of peripheral artery disease. Left ankle: Moderate disease at rest. Aortic or bilateral iliofemoral disease. Left distal superficial femoral and/or popliteal disease. No significant change in pressure and/or ankle-brachial index with exercise. Technologist: Kiana Sullivan RVT [facility] Ordering physician: ARGENIS NAGY Interpreting physician: TAHMINA Bianchi DO Final CC [employer] Image : [id number] See Link below for Image Normal [facility] VENOUS INCOMPETENCY RAMAN V LABon 08-29-2024 VENOUS INCOMPETENCY [facility]AN VAS LAB Non-Invasive Vascular Laboratory [facility] Venous Valvular Incompetency Bilateral/Complete Date of service/time: 08/29/2024 12:28:24 PM Name: MS. MAUREEN BARRON Date of : 1955 Age: 68 years Gender: F Clinical Indication Lower extremity pain, symptoms of postural discomfort and spider veins, telangiectasia or reticular veins. TECHNIQUE -------- A venous duplex ultrasound examination was performed, including grayscale imaging with compression maneuvers and color Doppler and spectral Doppler examination with augmentation maneuvers and response to respiration of the below mentioned veins. FINDINGS -------- Patient position reverse Trendelenburg 45 degrees. RIGHT SIDE Method of augmentation: manual. Common femoral vein Doppler: normal flow. Compression: normal. Femoral vein Doppler: normal flow. Compression: normal. Popliteal vein Doppler: normal flow. Compression: normal. Great saphenous vein Compression: normal. Small saphenous vein Compression: normal. RIGHT GREAT SAPHENOUS VEIN Saphenofemoral junction Augmentation reflux none. Valsalva reflux none. Size 0.83 cm. Mid thigh Augmentation reflux none. Valsalva reflux none. Size 0.22 cm. Distal thigh Augmentation reflux none. Valsalva reflux none. Size 0.24 cm. At Knee Augmentation reflux none. Size 0.23 cm. Proximal calf Augmentation reflux none. Size 0.18 cm. Mid calf Augmentation reflux none. Size 0.22 cm. Distal calf Augmentation reflux less than 0.5 second. Size 0.19 cm. RIGHT SMALL SAPHENOUS VEIN Proximal calf Augmentation reflux none. Size 0.17 cm. Mid calf Augmentation reflux none. Size 0.17 cm. Distal calf Augmentation reflux none. Size 0.23 cm. RIGHT BRANCHES AND PERFORATORS Branch vein mid heaton Size 0.16 cm. Branch vein mid calf posterior Size 0.22 cm. LEFT SIDE Method of augmentation: manual. Common femoral vein Doppler: normal flow. Compression: normal. Femoral vein Doppler: normal flow. Compression: normal. Popliteal vein Doppler: normal flow. Compression: normal. Great saphenous vein Compression: normal. Small saphenous vein Compression: normal. LEFT GREAT SAPHENOUS VEIN Saphenofemoral junction Augmentation reflux none. Valsalva reflux none. Size 0.54 cm. Distal thigh Augmentation reflux none. Valsalva reflux none. Size 0.20 cm. At Knee Augmentation reflux none. Size 0.18 cm. Proximal calf Augmentation reflux none. Size 0.11 cm. Mid calf Augmentation reflux not performed. Size 0.22 cm. Distal calf Augmentation reflux none. Size 0.22 cm. LEFT SMALL SAPHENOUS VEIN Proximal calf Augmentation reflux none. Size 0.11 cm. Mid calf Augmentation reflux none. Size 0.13 cm. Distal calf Augmentation reflux none. Size 0.22 cm. LEFT ANTERIOR ACCESSORY GREAT SAPHENOUS VEIN Saphenous junction Augmentation reflux none. Valsalva reflux none. Size 0.21 cm. Proximal thigh Size 0.20 cm. LEFT BRANCHES AND PERFORATORS Branch vein mid calf posterior Size 0.19 cm. IMPRESSION RIGHT SIDE - DEEP VEINS Negative for acute deep vein thrombosis in vessels visualized. RIGHT SIDE - SUPERFICIAL VEINS Negative for valvular incompetency in the great saphenous vein. Discontinuous vein proximal thigh. Small branches/spider veins proximal to mid calf/heaton. Negative for valvular incompetency in the small saphenous vein. Branches mid calf. LEFT SIDE - DEEP VEINS Negative for acute deep vein thrombosis in vessels visualized. LEFT SIDE - SUPERFICIAL VEINS Negative for valvular incompetency in the great saphenous vein. Discontinuous vein proximal to mid thigh. Negative for valvular incompetency in the anterior accessory great saphenous vein. Negative for valvular incompetency in the small saphenous vein. Branches mid calf. Technologist: Kiana Sullivan RVT, RDMD Ordering physician: ARGENIS NAGY Interpreting physician: TAHMINA Bianchi DO Final CC [facility] [facility] Image : [id number] See Link below for Image Normal [facility] CNOVon 07-31-2024 CNOV Office Visit (VASSWS ) MAUREEN ANSARI ([id number]) 1955 F [facility] Date Time Provider Department 07/31/24 8:30 AM ARGENIS NAGYS During your visit today, we recorded the following information about you: Pulse Blood pressure 80/minute 156/84 Argenis Nagy DO 07/31/2024 10:00 AM Signed [facility] [place] DEPARTMENT OF VASCULAR SURGERY OUTPATIENT VISIT DATE July 31, 2024 OUTPATIENT VISIT TYPE CONSULTATION SERVICE DATE: 07/31/2024 SERVICE TIME: 8:38 AM PRIMARY CARE PHYSICIAN: Marianela Edwards DO REFERRING PROVIDER: Marianela Edwards [address] [place] [id number] Consult requested for an opinion regarding the evaluation and treatment of the above. My final impression and recommendations will be communicated back to the requesting physician by way of the shared medical record or letter via [place] mail. CHIEF COMPLAINT: Carotid Disease HISTORY OF PRESENT ILLNESS: Vascular consultation at the request of Dr. Marianela Edwards. A copy of this consultation note will be provided to the requesting physician by way of shared Medical record or letter to requesting physician via US mail. Ms. Mino Barron is a 68 year old female who is seen today for carotid artery occlusions. She has a history of left carotid endarterectomy and known carotid occlusion. She has a history of intracranial aneurysm treatment in [place]. She has had vein treatment in [place] where veins were dissolved. She admits to claudication and leg pain with ambulation at short distances. She admits to smoking and marijuana. States her legs are stopping her from day to day activities. She did fall and break her leg last year- she was unable to bear weight for a long period of time. PAST MEDICAL HISTORY Diagnosis Date Aneurysm (HCC) 2019 Cardiovascular disease 2010 Hypertension Leg fracture, left 01/2024 Thyroid disease PAST SURGICAL HISTORY Procedure Laterality Date BRAIN SURGERY HX aneurysm CAROTID - INTERNAL Bilateral HIP SURGERY HX anders placed SHX VASCULAR SURGERY 2019 SOCIAL HISTORY: Social History Tobacco Use Smoking status: Every Day Current packs/day: 0.50 Types: Cigarettes Smokeless tobacco: Never Vaping Use Vaping status: Former Substance Use Topics Alcohol use: Not Currently Comment: rarely Drug use: Yes Types: Marijuana Comment: Smokes about 4 to 5 times daily FAMILY HISTORY Problem Relation Age of Onset Hypertension Mother Hyperlipidemia Mother Heart Mother Intersitial Lung Disease Mother Thyroid Mother Hyperlipidemia Father Hypertension Father Diabetes Father Heart Attack Father Stroke Father Systemic Lupus Erythematosus Sister Cancer Paternal Grandfather stomach Leukemia Maternal Uncle MEDICATIONS: levothyroxine (SYNTHROID) 125 mcg tablet Take 1 tablet by mouth once daily. aspirin, enteric coated (ASPIRIN, ENTERIC COATED) 81 mg EC tablet Take 162 mg by mouth once daily. ALLERGIES: ALLERGIES No Known Allergies REVIEW of SYSTEM: Constitutional: No weight loss, malaise or fevers. HEENT: Negative for frequent or significant headaches, Negative for significant ear problems or hearing loss and nasal discharge or nose bleeds, Eyes Positive for recent change in vision Respiratory: Positive for chronic cough Cardiovascular: Negative for chest pain, leg swelling or palpitations Gatrointestinal: Negative for abdominal discomfort, blood in stools or black stools or change in bowel habits Genitourinary: No history of dysuria, frequency, or incontinence Musculoskeletal: Negative for muscle pain and Positive for joint pain and neck pain Endocrine: Positive for cold intolerance Hematology/Lymphatic: Positive for bruises easily Neurologic: Positive for syncope and tremor Integumentary: Negative for lesions, rash, and itching. PHYSICAL EXAM: VITALS: 07/31/24 0850 07/31/24 0858 BP: 185/84 156/84 BP Site: Right Arm Left Arm BP Position: Sitting Sitting BP Cuff Size: Regular Adult Regular Adult Pulse: 80 SpO2: 95% General: Alert and oriented Integumentary: Normal color, no rash, no lesions. HEENT: EOM, pupils equal, round and reactive., No carotid bruits Cardiovascular: Pulse regular. Lungs: No chest deformities or chest wall tenderness. Abdomen: Not examined Extremities: Edema -trace, Varicose veins, left leg dependent rubor Neurological: Normal cognition and motor skills. Vascular: doppler dp bilaterallly Diagnostic tests reviewed for today's visit: Most recent labs Most recent imaging CTA- CTA NECK: 1. Complete occlusion of the right internal carotid artery at its origin is noted, chronic by history 2. Status post carotid endarterectomy on the left with no evidence of stenosis 3. Patent vertebral arteries bilaterally, with moderate to severe calcified plaque at the origin (more content not included)... Normal [facility] MINO GAVINMAUREEN Gustafson ([id number]) 1955 F [facility] Date Time Provider Department 07/30/24 MARIANELA EDWARDS During your visit today, we recorded the following information about you: Desire Moss MA 07/30/2024 7:13 AM Signed ----- Message from Marianela Edwards DO sent at 07/28/2024 11:39 AM EST ----- Please put in reminder for pt to have TSH in 6 weeks, FLP/CMP in 3 months DO Grace Levy Kimberly C, DO 07/30/2024 7:29 PM Signed 6 weeks and 3 months from now - thanks DO Keo Levy Mary, MA 07/31/2024 8:22 AM Signed Reminders placed. Shari López MA Allergies As of Date: 07/30/2024 (No Known Allergies) Date Reviewed: 07/10/2024 Reviewed by: Brigida Persaud LPN - Fully Assessed Reason for Visit: Lab Orders [3088] Prescriptions as of 07/31/2024 - levothyroxine (SYNTHROID) 125 mcg tablet Take 1 tablet by mouth once daily. - aspirin, enteric coated (ASPIRIN, ENTERIC COATED) 81 mg EC tablet Take 162 mg by mouth once daily. Problem List As Of Date 07/30/2024 Noted Resolved Hypertensive emergency [I16.1] 07/08/2024 Hypertension [I10] 07/08/2024 Right internal carotid occlusion [I65.21] 07/08/2024 History of left-sided carotid endarterectomy [Z*07/08/2024 History of cerebral aneurysm [Z86.79] 07/08/2024 Elevated serum creatinine [R79.89] 07/08/2024 Hyperglycemia [R73.9] 07/08/2024 Leukocytosis [D72.829] 07/08/2024 Nicotine use disorder, F17.2 [F17.200] 07/10/2024 Hyperlipidemia, mixed [E78.2] 07/28/2024 Hypothyroidism, acquired [E03.9] 07/28/2024 Encounter Status:Closed by DESIRE MOSS on 07/30/24 Normal [facility] CNPNon 07-28-2024 CNPN Telephone (AG[place]ORIS[facility]) MAUREEN ANSARI ([id number]) 1955 F [facility] Date Time Provider Department 07/28/24 MARIANELA EDWARDS During your visit today, we recorded the following information about you: Marianela Edwards DO 07/28/2024 11:39 AM Signed Called and spoke with patient about her blood work. Her TSH is elevated, FLP is elevated, and BUN is elevated. She does not want to take meds at this time, other than synthroid. Accidentally sent in Rx for synthroid 112 mcg, which she has not yet started. She has been taking synthroid 100 mcg. Advised pt to not waste picker the 112 mcg, will send in synthroid 125 mcg, and recheck TSH in 6 weeks. Also, advised pt to follow low fat high fiber diet exercise 30 minutes per day, and take omega 3 fatty acids for cholesterol, and to drink 8 ounces of clear fluids daily for kidneys. Will recheck CMP, FLP in 3 months. She was in the hospital for hypertensive urgency. She reports this occurred after having EMG causing severe pain She was advised to f/u for elevated BP. She will make appt to return in a few weeks. Advised pt to monitor BP at home in the mean time and bring record to office karla. Marianela Edwards DO Allergies As of Date: 07/28/2024 (No Known Allergies) Date Reviewed: 07/10/2024 Reviewed by: Brigida Persaud LPN - Fully Assessed Primary Visit Diagnosis:Hyperlipidem ia, mixed [E78.2] Other Visit Diagnosis:Hypothyroidi sm, acquired [E03.9] Order(s):levothyroxine (SYNTHROID) 125 mcg tabletTake 1 tablet by mouth once daily.Disp: 30 tabletRfl: 1 Prescriptions as of 07/28/2024 - levothyroxine (SYNTHROID) 125 mcg tablet Take 1 tablet by mouth once daily. - aspirin, enteric coated (ASPIRIN, ENTERIC COATED) 81 mg EC tablet Take 162 mg by mouth once daily. Problem List As Of Date 07/28/2024 Noted Resolved Hypertensive emergency [I16.1] 07/08/2024 Hypertension [I10] 07/08/2024 Right internal carotid occlusion [I65.21] 07/08/2024 History of left-sided carotid endarterectomy [Z*07/08/2024 History of cerebral aneurysm [Z86.79] 07/08/2024 Elevated serum creatinine [R79.89] 07/08/2024 Hyperglycemia [R73.9] 07/08/2024 Leukocytosis [D72.829] 07/08/2024 Nicotine use disorder, F17.2 [F17.200] 07/10/2024 Hyperlipidemia, mixed [E78.2] 07/28/2024 Hypothyroidism, acquired [E03.9] 07/28/2024 Prescriptions ordered this encounter Disp Refills Start End LEVOTHYROXINE 125 MCG TABLET 30 t* 1 07/28/2024 Route: ORAL Sig: Take 1 tablet by mouth once daily. Medications Discontinued During This Encounter Prescriptions - aspirin, enteric coated (ASPIRIN, ENTERIC COATED) 81 mg EC tablet (Discontinued) Reported on 07/11/2024 - levothyroxine (SYNTHROID) 112 mcg tablet (Discontinued) Take 1 tablet by mouth daily before breakfast. Encounter Status:Closed by MARIANELA EDWARDS on 07/28/24 Normal [facility] CBC panel Auto (Bld)on 07-26 Erythrocyte distribution width (RBC) [Ratio] 13.1 % Normal 11.5-15.0 [facility] Comment on above: Order Comment: Speci men Type: BLOOD SPECIMEN Ordering Facility: [facility]: [address] [place] [address] Performed By: #### 5 8410-2 #### [facility] CLIA [id number] [address] [place] [address] [place] Hematocrit (Bld) [Volume fraction] 56.7 % High 36.0-46.0 [facility] Comment on above: Order Comment: Speci men Type: BLOOD SPECIMEN Ordering Facility: [facility] Address: [address] [place], [place] [address] Performed By: #### 5 8410-2 #### [facility] CLIA [id number] [address] [place] [address] [place] Hemoglobin (Bld) [Mass/Vol] 18.8 g/dL High 11.5-15.5 [facility] Comment on above: Order Comment: Speci men Type: BLOOD SPECIMEN Ordering Facility: [facility] Address: [address] [place] [address] Performed By: #### 5 8410-2 #### [facility] CLIA [id number] [address] [place] [address] [place] MCH (RBC) [Entitic mass] 30.7 pg Normal 26.0-34.0 [facility] Comment on above: Order Comment: Speci men Type: BLOOD SPECIMEN Ordering Facility: [facility] Address: [address] [place] [address] Performed By: #### 5 8410-2 #### [id number] [address] [place] [address] [place] MCHC (RBC) [Mass/Vol] 33.2 g/dL Normal 30.5-36.0 [facility] Comment on above: Order Comment: Speci men Type: BLOOD SPECIMEN Ordering Facility: [facility] Address: [address] [place] [address] Performed By: #### 5 8410-2 #### [facility] [id number] [address] [place] [address] [place] MCV (RBC) [Entitic vol] 92.6 fL Normal 80.0-100.0 [facility] Comment on above: Order Comment: Speci men Type: BLOOD SPECIMEN Ordering Facility: [facility] Address: [address] [place] [address] Performed By: #### 5 8410-2 #### [facility] CLIA [id number] [address] [place] [address] [place] Nucleated RBC (Bld) [#/Vol] 10*3/uL Normal <0.01 [facility] Comment on above: Order Comment: Speci men Type: BLOOD SPECIMEN Ordering Facility: [facility] Address: [address] [place] [address] Performed By: #### 5 8410-2 #### [facility] CLIA [id number] [address] [place] [address] [place] Platelet mean volume (Bld) [Entitic vol] 9.1 fL Normal 9.0-12.7 [facility] Comment on above: Order Comment: Speci men Type: BLOOD SPECIMEN Ordering Facility: [facility] Address: [address] [place] [address] Performed By: #### 5 8410-2 #### [facility] CLIA [id number] [address] [place] [address] [place] Platelets (Bld) [#/Vol] 391 10*3/uL Normal 150-400 [facility] Comment on above: Order Comment: Speci men Type: BLOOD SPECIMEN Ordering Facility: [facility] Address: [address] [place] [address] Performed By: #### 5 8410-2 #### [facility] CLIA [id number] [address] [place] [address] [place] RBC (Bld) [#/Vol] 6.12 10*6/uL High 3.90-5.20 [facility] Comment on above: Order Comment: Speci men Type: BLOOD SPECIMEN Ordering Facility: [facility] Address: [address] [place] [address] Performed By: #### 5 8410-2 #### [facility] CLIA [id number] [address] [place] [address] [place] WBC (Bld) [#/Vol] 10.52 10*3/uL Normal 3.70-11.00 [facility] Comment on above: Order Comment: Speci men Type: BLOOD SPECIMEN Ordering Facility: [facility] Address: [address] [place] [address] Performed By: #### 5 8410-2 #### [facility] CLIA [id number] [address] [place] [address] [place] Comprehensive metabolic 2000 panelon 07-26-2024 Albumin [Mass/Vol] 4.4 g/dL Normal 3.9-4.9 [facility] Comment on above: Order Comment: Speci men Type: BLOOD SPECIMEN Ordering Facility: [facility] Address: [address] [place] [address] Performed By: #### 2 4323-8 #### [facility] CLIA [id number] [address] [place] [address] [place] ALP [Catalytic activity/Vol] 96 U/L Normal 34-123 [facility] Comment on above: Order Comment: Speci men Type: BLOOD SPECIMEN Ordering Facility: [facility] Address: [address] [place] [address] Performed By: #### 2 4323-8 #### [facility] CLIA [id number] [address] [place] [address] [place] ALT [Catalytic activity/Vol] 15 U/L Normal 7-38 [facility] Comment on above: Order Comment: Speci men Type: BLOOD SPECIMEN Ordering Facility: [facility] Address: [address] [place] [address] Performed By: #### 2 4323-8 #### [facility] CLIA [id number] [address] [place] [address] [place] Anion gap [Moles/Vol] 9 mmol/L Normal 8-15 [facility] Comment on above: Order Comment: Speci men Type: BLOOD SPECIMEN Ordering Facility: [facility] Address: [address] [place] [address] Performed By: #### 2 4323-8 #### [facility] CLIA [id number] [address] [place] [address] [place] AST [Catalytic activity/Vol] Normal [facility] Comment on above: Order Comment: Speci men Type: BLOOD SPECIMEN Ordering Facility: [facility] Address: [address] [place] [address] Result Comment: Unab le to assay. Specimen significantly hemolyzed. Performed By: #### 2 4323-8 #### [facility] CLIA [id number] [address] [place] [address] [place] Bilirubin [Mass/Vol] 0.3 mg/dL Normal 0.2-1.3 [facility] Comment on above: Order Comment: Speci men Type: BLOOD SPECIMEN Ordering Facility: [facility] Address: [address] [place] [address] Performed By: #### 2 4323-8 #### [facility] CLIA [id number] [address] [place] [address] [place] Calcium [Mass/Vol] 10.4 mg/dL High 8.5-10.2 [facility] Comment on above: Order Comment: Speci men Type: BLOOD SPECIMEN Ordering Facility: [facility] Address: [address] [place] [address] Performed By: #### 2 4323-8 #### [facility] [id number] [address] [place] [address] [place] Chloride [Moles/Vol] 99 mmol/L Normal 98-107 [facility] Comment on above: Order Comment: Speci men Type: BLOOD SPECIMEN Ordering Facility: [facility] Address: [address] [place] [address] Performed By: #### 2 4323-8 #### [facility] CLIA [id number] [address] [place] [address] [place] CO2 [Moles/Vol] 30 mmol/L Normal 22-30 [facility] Comment on above: Order Comment: Speci men Type: BLOOD SPECIMEN Ordering Facility: [facility] Address: [address] [place] [address] Performed By: #### 2 4323-8 #### [facility] CLIA [id number] [address] [place] [address] [place] Creatinine [Mass/Vol] 1.48 mg/dL High 0.58-0.96 [facility] Comment on above: Order Comment: Speci men Type: BLOOD SPECIMEN Ordering Facility: [facility] Address: [address] [place] [address] Performed By: #### 2 4323-8 #### [facility] CLIA [id number] [address] [place] [address] [place] Creatinine and Glomerular filtration rate.predicted panel (S/P/Bld) 39 mL/min/1.73m??? Low >=60 [facility] Comment on above: Order Comment: Speci men Type: BLOOD SPECIMEN Ordering Facility: [facility] Address: [address] [place] [address] Result Comment: Maru mated Glomerular Filtration Rate (eGFR) is calculated using the 2020 CKD-EPI creatinine equation. This equation utilizes serum creatinine, sex, and age as parameters. The creatinine assay has traceable calibration to isotope dilution-mass spectrometry. Refer to KDIGO guidelines for clinical interpretation. In patients with unstable renal function, e.g. those with acute kidney injury, the eGFR may not accurately reflect actual GFR. Performed By: #### 2 4323-8 #### [facility] CLIA [id number] [address] [place] [address] [place] Glucose [Mass/Vol] 118 mg/dL High 74-99 [facility] Comment on above: Order Comment: Marika hammonds Type: BLOOD SPECIMEN Ordering Facility: [facility] Address: [address] [place] [address] Result Comment: The [place] [employer] (ADA) provides guidance for cutoff values for fasting glucose and random glucose. The ADA defines fasting as no caloric intake for at least 8 hours. Fasting plasma glucose results between 100 to 125 mg/dL indicate increased risk for diabetes (prediabetes). Fasting plasma glucose results greater than or equal to 126 mg/dL meet the criteria for diagnosis of diabetes. In the absence of unequivocal hyperglycemia, results should be confirmed by repeat testing. In a patient with classic symptoms of hyperglycemia or hyperglycemic crisis, random plasma glucose results greater than or equal to 200 mg/dL meet the criteria for diagnosis of diabetes. Reference: Standards of Medical Care in Diabetes 2016, [place] [employer]. Diabetes Care. 2016.39(Suppl 1). Performed By: #### 2 4323-8 #### [facility] CLIA [id number] [address] [place] [address] [place] Potassium [Moles/Vol] 4.3 mmol/L Normal 3.7-5.1 [facility] Comment on above: Order Comment: Marika hammonds Type: BLOOD SPECIMEN Ordering Facility: [facility] Address: [address] [place] [address] Performed By: #### 2 4323-8 #### [facility] CLIA [id number] [address] [place] [address] [place] Protein [Mass/Vol] 8.0 g/dL Normal 6.3-8.0 [facility] Comment on above: Order Comment: Marika hammonds Type: BLOOD SPECIMEN Ordering Facility: [facility] Address: [address] [place], [place] [address] Performed By: #### 2 4323-8 #### [facility] CLIA [id number] [address] [place] [address] [place] Sodium [Moles/Vol] 138 mmol/L Normal 136-144 [facility] Comment on above: Order Comment: Speci men Type: BLOOD SPECIMEN Ordering Facility: [facility] Address: [address] [place] [address] Performed By: #### 2 4323-8 #### [facility] CLIA [id number] [address] [place] [address] [place] Urea nitrogen [Mass/Vol] 26 mg/dL High 7- [facility] Comment on above: Order Comment: Speci men Type: BLOOD SPECIMEN Ordering Facility: [facility] Address: [address] [place] [address] Performed By: #### 2 4323-8 #### [facility] CLIA [id number] [address] [place] [address] [place] Lipid 1996 panelon 5 Cholesterol [Mass/Vol] 261 mg/dL High <200 [facility] Comment on above: Order Comment: Speci men Type: BLOOD SPECIMEN Ordering Facility: [facility] Address: [address] [place] [address] Result Comment: <200 mg/dL, Desirable 200-239 mg/dL, Borderline high >239 mg/dL, High Performed By: #### 2 4331-1 #### [facility] CLIA [id number] [address] [place] [address] [place] [facility] CLIA [id number] [address] [place] [address] [place] #### 3016-3 #### [facility] CLIA [id number] [address] [place] [address] [place] Cholesterol in HDL [Mass/Vol] 52 mg/dL Normal >39 [facility] Comment on above: Order Comment: Speci men Type: BLOOD SPECIMEN Ordering Facility: [facility] Address: [address] [place] [address] Result Comment: 40-5 9 mg/dL, Acceptable >59 mg/dL, High: Negative risk factor for coronary heart disease <40 mg/dL, Low: Positive risk factor for coronary heart disease Performed By: #### 2 4331-1 #### [facility] CLIA [id number] [address] [place] [address] [place] [facility] CLIA [id number] [address] [place] [address] [place] #### 3016-3 #### [facility] CLIA [id number] [address] [place] [address] [place] Cholesterol in LDL [Mass/Vol] 189 mg/dL High <100 [facility] Comment on above: Order Comment: Speci men Type: BLOOD SPECIMEN Ordering Facility: [facility] Address: [address] [place] [address] Result Comment: <100 mg/dL, Optimal 100-129 mg/dL, Near optimal/above optimal 130-159 mg/dL, Borderline high 160-189 mg/dL, High >189 mg/dL, Very high Secondary prevention optimal LDL Cholesterol levels are recommended to be < 70 mg/dL Performed By: #### 2 4331-1 #### [facility] CLIA [id number] [address] [place] [address] [place] [facility] CLIA [id number] [address] [place] [address] [place] #### 3016-3 #### [facility] CLIA [id number] [address] [place] [address] [place] Cholesterol in LDL/Cholesterol in HDL [Mass ratio] 3.63 {ratio} High <2.54 [facility] Comment on above: Order Comment: Speci men Type: BLOOD SPECIMEN Ordering Facility: [facility] Address: [address] [place] [address] Result Comment: Refe rence: 1. National Cholesterol Education Program ATP III Guideline At-A-Glance Quick Desk Reference: National Heart, Lung, and Blood [place]. National Institutes of Health. 2001: NIH Publication No. 01-3305. 2. An International Atherosclerosis Society position paper: global recommendations for the management of dyslipidemia: executive summary, Atherosclerosis. 2014: 232(2):410-413. Performed By: #### 2 4331-1 #### [facility] CLIA [id number] [facility] [address] [place] [facility] CLIA [id number] [place] [address] [place] #### 3016-3 #### [facility] CLIA [id number] [address] [place] [address] [place] Cholesterol in VLDL [Mass/Vol] 20 mg/dL Normal <30 [facility] Comment on above: Order Comment: Speci men Type: BLOOD SPECIMEN Ordering Facility: [facility] Address: [address] [place] [address] Performed By: #### 2 4331-1 #### [facility] CLIA [id number] [address] [place] [address] [place] [facility] CLIA [id number] [place] [address] [place] #### 3016-3 #### [facility] CLIA [id number] [address] [place] [address] [place] Cholesterol non HDL [Mass/Vol] 209 mg/dL High <130 [facility] Comment on above: Order Comment: Speci men Type: BLOOD SPECIMEN Ordering Facility: [facility] Address: [address] [place] [address] Result Comment: <130 mg/dL, Optimal 130-159 mg/dL, Near optimal/above optimal 160-189 mg/dL, Borderline high 190-219 mg/dL, High >219 mg/dL, Very high Secondary prevention optimal non HDL Cholesterol levels are recommended to be <100 mg/dL Performed By: #### 2 4331-1 #### [facility] CLIA [id number] [address] [place] [address] [place] [facility] CLIA [id number] [address] [place] [address] [place] #### 3016-3 #### [facility] CLIA [id number] [address] [place] [address] [place] Cholesterol.total/Cho lesterol in HDL [Mass ratio] 5.02 {ratio} Normal <5.10 [facility] Comment on above: Order Comment: Speci men Type: BLOOD SPECIMEN Ordering Facility: [facility] Address: [address] [place] [address] Performed By: #### 2 4331-1 #### [facility] CLIA [id number] [address] [place] [address] [place] [id number] [address] [place] [address] [place] #### 3016-3 #### [facility] CLIA [id number] [address] [place] [address] [place] FASTING TIME 12 hrs Normal [facility] Comment on above: Order Comment: Speci men Type: BLOOD SPECIMEN Ordering Facility: [facility] Address: [address] [place] [address] Performed By: #### 2 4331-1 #### [facility] CLIA [id number] [address] [place] [address] [place] [facility] [id number] [address] [place] [address] [place] #### 3016-3 #### [facility] CLIA [id number] [address] [place] [address] [place] Triglyceride [Mass/Vol] 99 mg/dL Normal <150 [facility] Comment on above: Order Comment: Speci men Type: BLOOD SPECIMEN Ordering Facility: [facility] Address: [address] [place] [address] Result Comment: <150 mg/dL, Normal 150-199 mg/dL, Borderline high 200-499 mg/dL, High >499 mg/dL, Very high Performed By: #### 2 4331-1 #### [facility] CLIA [id number] [address] [place] [address] [place] [facility] CLIA [id number] [address] [place] [address] [place] #### 3016-3 #### [facility] CLIA [id number] [address] [place] [address] [place] TSH SerPl-aCncon 07-26-2024 TSH Qn 20.000 m[IU]/L High 0.270-4.200 [facility] Comment on above: Order Comment: Speci men Type: BLOOD SPECIMEN Ordering Facility: [facility] Address: [address] [place] [address] Performed By: #### 2 4331-1 #### [facility] CLIA [id number] [address] [place] [address] [place] [facility] [id number] [address] [place] [address] [place] #### 3016-3 #### [facility] CLIA [id number] [address] [place] [address] [place] CNDSon 07-10-2024 CNDS HNO ID: [id number] Author: DARBY PETERSON MD Service: Hospital Medicine Author Type: Physician Type: Discharge Summary Filed: 07/10/2024 12:44 Note Text: DISCHARGE SUMMARY PATIENT NAME: Maureen Barron ADMISSION DATE: 07/09/2024 DISCHARGE DATE: 07/10/2024 ATTENDING PHYSICIAN: Darby Peterson MD Code Status: Full Code Highest Readmission Risk Score: 15 The 30 day readmissions risk score is derived from an internally validated risk model which evaluates patient level characteristics, utilization history, medication orders and lab results up until the day of discharge. Patients with a score of 40 or above are considered highest risk for readmission. Specific patient level drivers will be listed at the bottom of the summary. CONSULTING TEAMS DURING HOSPITALIZATION: None Treatment Team: Attending Provider: Darby Peterson MD Attending: ESME NADER REASON FOR HOSPITALIZATION: Headache DIAGNOSIS: Principal Problem: Hypertensive emergency (POA: Yes) Active Problems: Hypertension (POA: Yes) Right internal carotid occlusion (POA: Yes) History of left-sided carotid endarterectomy (POA: Yes) History of cerebral aneurysm (POA: Yes) Elevated serum creatinine (POA: Yes) Hyperglycemia (POA: Yes) Leukocytosis (POA: Yes) Nicotine use disorder, F17.2 (POA: Unknown) Resolved Problems: * No resolved hospital problems. * ACTIVE PROBLEM LIST Hypertensive Emergency Hypertension Right Internal Carotid Occlusion History of Left-Sided Carotid Endarterectomy History of Cerebral Aneurysm Elevated Serum Creatinine Hyperglycemia Leukocytosis Nicotine use disorder, F17.2 OPERATIONS DURING HOSPITALIZATION: None PROCEDURES DURING HOSPITALIZATION: No procedures performed HOSPITAL COURSE: 68-year-old female with a past medical history significant for HTN, carotid endarterectomy, chronic internal carotid occlusion, previous cerebral aneurysm with repair who presents initially on 07/08 with complaints of 2 days of progressively worsening headache and left-sided neck pain. Patient was found to be severely hypertensive with initial BP of 240/113. Of note, patient reports to the ED physician that she has stopped any home antihypertensives 6 months ago. CTA head and neck showed chronically occluded right ICA and moderate cervical spondylosis. She was started on Cardene drip for hypertensive emergency and admitted to ICU. Her blood pressure improved and Cardene drip was discontinued. She was transferred to the floors. Unfortunately while on the floors she insisted on leaving and subsequently left AMA. I did not get a chance to discuss safe discharge planning with the patient. Transitions of Care Critical Issues: SPECIALIST FOLLOW-UP: PCP LABS AND PROCEDURES PENDING AT DISCHARGE: No pending results. PATIENT CONDITION AT DISCHARGE: Stable DISCHARGE DISPOSITION: Against Medical Advice INFORMATION PROVIDED TO PATIENT: Please follow-up with your PCP. Please return to the hospital with any new or worsening symptoms. Please take all medications as prescribed. WOUND/SURGICAL SITE CARE: No orders of the defined types were placed in this encounter. DIET: Resume pre-hospital diet ACTIVITY: Resume pre-hospital activity ALLERGIES No Known Allergies DISCHARGE MEDICATION: Medication List ASK your doctor about these medications aspirin, enteric coated 81 mg EC tablet Commonly known as: ASPIRIN, ENTERIC COATED levothyroxine 100 mcg Cap FUTURE APPOINTMENTS: Follow Up with PCP: Marianela Edwadrs, DO No future appointments. The patient's risk for 30-day readmission is determined using the following contributing factors: Pt variables contributing to increased readmission risk: 13 Most Recent BUN Result 13 Active Medication Orders 10 First Resulted Calcium During Admission 1 Previous ED Visit (6 mos.)? 1 Number of Previous ED Visits (6 mos.) 1 Insurance - Medicare 1 Active Anticoagulant Plan of care discussed with Provider, RN, Patient Patient left AMA. SIGNATURE: DARBY PETERSON MD DATE: July 10, 2024 TIME: 12:41 PM Normal [facility] CBC panel Auto (Bld)on 07-09 Erythrocyte distribution width (RBC) [Ratio] 13.2 % Normal 11.5-15.0 [facility] Comment on above: Order Comment: Marika hammonds Type: BLOOD SPECIMEN Ordering Facility: [facility] Address: [address] [place] [address] Performed By: #### 5 8410-2 #### [facility] CLIA [id number] [address] [place] [address] [place] Hematocrit (Bld) [Volume fraction] 53.5 % High 36.0-46.0 [facility] Comment on above: Order Comment: Marika hammonds Type: BLOOD SPECIMEN Ordering Facility: [facility] Address: [address] [place] [address] Performed By: #### 5 8410-2 #### [facility] CLIA [id number] [address] [place], [place] [address] [place] Hemoglobin (Bld) [Mass/Vol] 18.1 g/dL High 11.5-15.5 [facility] Comment on above: Order Comment: Mraika hammonds Type: BLOOD SPECIMEN Ordering Facility: [facility] Address: [address] [place] [address] Performed By: #### 5 8410-2 #### [facility] CLIA [id number] [address] [place] [address] MCH (RBC) [Entitic mass] 31.4 pg Normal 26.0-34.0 [facility] Comment on above: Order Comment: Speci men Type: BLOOD SPECIMEN Ordering Facility: [facility] Address: [address] [place] [address] Performed By: #### 5 8410-2 #### [facility] CLIA [id number] [address] [place] [address] MCHC (RBC) [Mass/Vol] 33.8 g/dL Normal 30.5-36.0 [facility] Comment on above: Order Comment: Speci men Type: BLOOD SPECIMEN Ordering Facility: [facility] Address: [address] [place] [address] Performed By: #### 5 8410-2 #### [facility] CLIA [id number] [address] [place] [address] [place] MCV (RBC) [Entitic vol] 92.7 fL Normal 80.0-100.0 [facility] Comment on above: Order Comment: Speci men Type: BLOOD SPECIMEN Ordering Facility: [facility] Address: [address] [place] [address] Performed By: #### 5 8410-2 #### [facility] CLIA [id number] [address] [place] [address] Nucleated RBC (Bld) [#/Vol] 10*3/uL Normal <0.01 [facility] Comment on above: Order Comment: Speci men Type: BLOOD SPECIMEN Ordering Facility: [facility] Address: [address] [place] [address] Performed By: #### 5 8410-2 #### [facility] CLIA [id number] [address] [place] [address] [place] Platelet mean volume (Bld) [Entitic vol] 9.1 fL Normal 9.0-12.7 [facility] Comment on above: Order Comment: Speci men Type: BLOOD SPECIMEN Ordering Facility: [facility] Address: [address] [place] [address] Performed By: #### 5 8410-2 #### [facility] CLIA [id number] [address] [place] [address] [place] Platelets (Bld) [#/Vol] 307 10*3/uL Normal 150-400 [facility] Comment on above: Order Comment: Speci men Type: BLOOD SPECIMEN Ordering Facility: [facility] Address: [address] [place] [address] Performed By: #### 5 8410-2 #### [facility] CLIA [id number] [address] [place] [address] [place] RBC (Bld) [#/Vol] 5.77 10*6/uL High 3.90-5.20 [facility] Comment on above: Order Comment: Speci men Type: BLOOD SPECIMEN Ordering Facility: [facility] Address: [address] [place] [address] Performed By: #### 5 8410-2 #### [facility] CLIA [id number] [address] [place] [address] [place] WBC (Bld) [#/Vol] 11.43 10*3/uL High 3.70-11.00 [facility] Comment on above: Order Comment: Speci men Type: BLOOD SPECIMEN Ordering Facility: [facility] Address: [address] [place] [address] Performed By: #### 5 8410-2 #### [facility] CLIA [id number] [address] [place] [address] [facility] [place] Calcium.ionized [Moles/Vol]o n 07-09-2024 Calcium.ionized (Bld) [Mass/Vol] 1.17 mmol/L Normal 1.08-1.30 [facility] Comment on above: Order Comment: Speci men Type: BLOOD SPECIMEN Ordering Facility: [facility] Address: [address] [place], [place] [address] Performed By: #### 1 995-0 #### [facility] CLIA [id number] [address] [place], [place] [address] [place] Calcium.ionized adjusted to pH 7.4 (Bld) [Moles/Vol] 1.11 mmol/L Normal 1.08-1.30 [facility] Comment on above: Order Comment: Speci men Type: BLOOD SPECIMEN Ordering Facility: [facility] Address: [address] [place], [place] [address] Performed By: #### 1 995-0 #### [facility] CLIA [id number] [address] [place], [place] [address] [facility] Comprehensive metabolic 2000 panelon 07-09-2024 Albumin [Mass/Vol] 3.3 g/dL Normal 3.2-5.0 [facility] Comment on above: Order Comment: Speci men Type: BLOOD SPECIMEN Ordering Facility: [facility] Address: [address] [place], [place] [address] Performed By: #### 3 3762-6, 93888-1, 3024-7, 3016-3, 2777-1, 74572-3 #### [facility] CLIA [id number] [address] [place] [address] [place] ALP [Catalytic activity/Vol] 88 U/L Normal 45-117 [facility] Comment on above: Order Comment: Speci men Type: BLOOD SPECIMEN Ordering Facility: [facility] Address: [address] [place], [place] [address] Performed By: #### 3 3762-6, 37517-3, 3024-7, 3016-3, 2777-1, 73111-0 #### [facility] CLIA [id number] [address] [place] [address] ALT [Catalytic activity/Vol] 10 U/L Low 13-61 [facility] Comment on above: Order Comment: Speci men Type: BLOOD SPECIMEN Ordering Facility: [facility] Address: [address] [place] [address] Result Comment: Resu lts may be falsely depressed after the administration of Sulfasalazine and/or Sulfapyridine. Performed By: #### 3 3762-6, 64300-6, 3024-7, 3016-3, 2777-1, 51672-7 #### [facility] CLIA [id number] [address] [place] [address] [place] Anion gap [Moles/Vol] 4 mmol/L Low 5-16 [facility] Comment on above: Order Comment: Speci men Type: BLOOD SPECIMEN Ordering Facility: [facility] Address: [address] [place] [address] Performed By: #### 3 3762-6, 43663-9, 302-7, 3016-3, 2777-1, 91031-6 #### [facility] CLIA [id number] [address] [place] [address] [place] AST [Catalytic activity/Vol] 15 U/L Normal 8-34 [facility] Comment on above: Order Comment: Speci cassius Type: BLOOD SPECIMEN Ordering Facility: [facility] Address: [address] [place] [address] Result Comment: Resu lts may be falsely depressed after the administration of Sulfasalazine and/or Sulfapyridine. Performed By: #### 3 3762-6, 79614-7, 4-7, 3016-3, 2777-1, 85177-9 #### [facility] CLIA [id number] [address] [place] [address] [place] Bilirubin [Mass/Vol] 0.6 mg/dL Normal 0.2-1.0 [facility] Comment on above: Order Comment: Speci men Type: BLOOD SPECIMEN Ordering Facility: [facility] Address: [address] [place] [address] Performed By: #### 3 3762-6, 75649-6, 3024-7, 3016-3, 2777-1, 07817-8 #### [facility] CLIA [id number] [address] [place] [address] [place] Calcium [Mass/Vol] 10.0 mg/dL Normal 8.5-10.5 [facility] Comment on above: Order Comment: Speci men Type: BLOOD SPECIMEN Ordering Facility: [facility] Address: [address] [place] [address] Performed By: #### 3 3762-6, 85690-5, 3024-7, 3016-3, 2777-1, 68145-8 #### [facility] CLIA [id number] [address] [place], [place] [address] [place] Chloride [Moles/Vol] 102 mmol/L Normal 98-107 [facility] Comment on above: Order Comment: Speci men Type: BLOOD SPECIMEN Ordering Facility: [facility] Address: [address] [place] [address] Performed By: #### 3 3762-6, 06459-2, 3024-7, 3016-3, 2777-1, 93994-7 #### [facility] CLIA [id number] [address] [place], [place] [address] [place] CO2 [Moles/Vol] 30 mmol/L Normal 21-32 [facility] Comment on above: Order Comment: Speci men Type: BLOOD SPECIMEN Ordering Facility: [facility] Address: [address] [place] [address] Performed By: #### 3 3762-6, 11811-8, 3024-7, 3016-3, 2777-1, 49614-8 #### [facility] CLIA [id number] [address] [place], [place] [address] [place] Creatinine [Mass/Vol] 1.20 mg/dL High 0.51-0.95 [facility] Comment on above: Order Comment: Speci men Type: BLOOD SPECIMEN Ordering Facility: [facility] Address: [address] [place] [address] Result Comment: Misa ents receiving either N-Acetylcysteine (NAC) or Metamizole prior to venipuncture, may have falsely depressed results. Performed By: #### 3 3762-6, 92159-4, 3024-7, 3016-3, 2777-1, 05382-7 #### [facility] CLIA [id number] [address] [place], [place] [address] [place] Creatinine and Glomerular filtration rate.predicted panel (S/P/Bld) 50 mL/min/1.73m??? Low >=60 [facility] Comment on above: Order Comment: Marika hammonds Type: BLOOD SPECIMEN Ordering Facility: [facility] Address: [address] [place] [address] Result Comment: Maru mated Glomerular Filtration Rate (eGFR) is calculated using the 2020 CKD-EPI creatinine equation. This equation utilizes serum creatinine, sex, and age as parameters. The creatinine assay has traceable calibration to isotope dilution-mass spectrometry. Refer to KDIGO guidelines for clinical interpretation. In patients with unstable renal function, e.g. those with acute kidney injury, the eGFR may not accurately reflect actual GFR. Performed By: #### 3 3762-6, 19070-8, 3024-7, 3016-3, 2777-1, 09166-0 #### [facility] CLIA [id number] [address] [place], [place] [address] [place] Glucose [Mass/Vol] 121 mg/dL High 70-100 [facility] Comment on above: Order Comment: Marika hammonds Type: BLOOD SPECIMEN Ordering Facility: [facility] Address: [address] [place] [address] Result Comment: The [place] [employer] (ADA) provides guidance for cutoff values for fasting glucose and random glucose. The ADA defines fasting as no caloric intake for at least 8 hours. Fasting plasma glucose results between 100 to 125 mg/dL indicate increased risk for diabetes (prediabetes). Fasting plasma glucose results greater than or equal to 126 mg/dL meet the criteria for diagnosis of diabetes. In the absence of unequivocal hyperglycemia, results should be confirmed by repeat testing. In a patient with classic symptoms of hyperglycemia or hyperglycemic crisis, random plasma glucose results greater than or equal to 200 mg/dL meet the criteria for diagnosis of diabetes. Reference: Standards of Medical Care in Diabetes 2016, [place] [employer]. Diabetes Care. 2016.39(Suppl 1). Results may be falsely elevated after the administration of Sulfapyridine. Results may be falsely depressed after the administration of Sulfasalazine. Performed By: #### 3 3762-6, 02204-7, 3024-7, 3016-3, 2777-1, 01749-4 #### [facility] CLIA [id number] [address] [place], [place] [address] [place] Potassium [Moles/Vol] 3.9 mmol/L Normal 3.5-5.1 [facility] Comment on above: Order Comment: Speci men Type: BLOOD SPECIMEN Ordering Facility: [facility] Address: [address] [place] [address] Performed By: #### 3 3762-6, 74827-5, 3023-7, 3016-3, 2777-1, 43313-1 #### [facility] CLIA [id number] [address] [place], [place] [address] [place] Protein [Mass/Vol] 7.1 g/dL Normal 6.0-8.5 [facility] Comment on above: Order Comment: Marika hammonds Type: BLOOD SPECIMEN Ordering Facility: [facility] Address: [address] [place] [address] Performed By: #### 3 3762-6, 40513-1, 4-7, 3016-3, 7-1, 46223-1 #### [facility] CLIA [id number] [address] [place], [place] [address] [place] Sodium [Moles/Vol] 136 mmol/L Normal 136-145 [facility] Comment on above: Order Comment: Speci cassius Type: BLOOD SPECIMEN Ordering Facility: [facility] Address: [address] [place] [address] Performed By: #### 3 3762-6, 01876-9, 3023-7, 3016-3, 2777-1, 63436-2 #### [facility] CLIA [id number] [address] [place], [place] [address] [place] Urea nitrogen [Mass/Vol] 13 mg/dL Normal 01-26 [facility] Comment on above: Order Comment: Speci men Type: BLOOD SPECIMEN Ordering Facility: [facility] Address: [facility] [place] [address] Performed By: #### 3 3762-6, 63014-2, 3024-7, 3016-3, 2777-1, 72476-8 #### [facility] CLIA [id number] [address] STATES OF [facility] ECHOon 07-09-2024 Echocardiography Echocardiography Report: Transthoracic Echo [facility] Date of service: 07/09/2024 10:17:39 AM Ordering physician: FIDENCIO ADORNO Indication: Initial evaluation of Heart Failure Technologist: Conrad Serrano RDCS Interpreting physician: Kain Davis MD PATIENT: Name: MAUREEN BARRON : 1955 Age: 68 years Gender: F History of hypertension. Primary rhythm: sinus. Height: 152.40 cm BSA: 1.51 m Weight: 54.00 kg BMI: 23.3 kg/m Heart rate 72 bpm Blood pressure 151/70 mmHg Color Doppler was utilized to interrogate the cardiac valves assessed and spectral Doppler was utilized to determine the flow velocities and pressure gradients reported in this exam. MEASUREMENTS: Value Indexed Normal Max aortic dimension 2.9 cm Ao < 3.8 Left atrium diameter 3.1 cm (2D) LAd < 4 LV ID (diastole) 3.5 cm (2D) 2.31 cm/m LV ID (systole) 2.5 cm (2D) 1.65 cm/m IVS, leaflet tips 1.8 cm (2D) Posterior wall thickness 1.3 cm (2D) Left ventricular mass 204 g (2D) 135 g/m LV stroke volume 43 ml (2D biplane) LVOT stroke volume 66 ml 44 ml/m LV end diastolic volume 72 ml (2D biplane) 47.3 ml/m 29<=EDVi<62 LV end systolic volume 29 ml (2D biplane) 18.9 ml/m Ejection Fraction 60 % (2D biplane) EF > 54 FINDINGS: LEFT VENTRICLE The left ventricle is normal in size. There is moderate asymmetric left ventricular hypertrophy. Left ventricular systolic function is normal. Grade I left ventricular diastolic dysfunction. Mitral annular lateral E/e': 5.7. Mitral annular septal E/e': 12.0. Wall Motion: All scored segments are normal. RIGHT VENTRICLE The right ventricle is normal in size. Right ventricular systolic function is normal. RV systolic tissue Doppler velocity is 13.9 cm/s. Tricuspid annular displacement is 1.5 cm. Estimated right ventricular systolic pressure is 29 mmHg consistent with normal pulmonary artery pressures. Estimated right atrial pressure is 3 mmHg based on IVC assessment. LEFT ATRIUM The left atrial cavity is normal in size. RIGHT ATRIUM The right atrial cavity is normal in size. Inferior Vena Cava: The inferior vena cava appears normal measuring 1.4 cm. The vessel decreases greater than 50 percent with inspiration. MITRAL VALVE There is mild mitral annular calcification. There is trace mitral valve regurgitation. There is mild thickening. The peak mitral valve gradient is 5 mmHg. The mean mitral valve gradient is 1 mmHg. The pressure half time is 76 msec. The peak mitral E/A ratio is 0.44. The mitral flow deceleration time is 263 msec. TRICUSPID VALVE Ewiiaapaayp tricuspid valve. There is no tricuspid stenosis. There is mild (1+) tricuspid valve regurgitation. There is no calcification. AORTIC VALVE There is no aortic valve stenosis. There is trace aortic valve regurgitation. Tricuspid aortic valve. The peak gradient is 9 mmHg (peak velocity = 149.0 cm/s). The mean gradient is 4 mmHg. The LVOT mean velocity is 78.1 cm/s. The LVOT diameter is 2.0 cm. The aortic VTI is 24.4 cm. The mean velocity in the aortic valve is 91.5 cm/s. The dimensionless valve index is 0.87. AV area is 2.72 cm (1.80 cm /m ) by continuity, VTI. The LVOT stroke volume index is 44 ml/m . PULMONIC VALVE There is no pulmonic stenosis. There is trace pulmonic valve regurgitation. There is no calcification. The peak gradient is 3 mmHg. AORTA The visualized aorta is normal in size. Measurements - Sinus: 2.9 cm. Sinotubular junction 2.8 cm. Mid ascending aorta 2.9 cm. INTERATRIAL SEPTUM There is no evidence of intracardiac shunting as detected by Doppler. INTERVENTRICULAR SEPTUM There is no flow through the interventricular septum as detected by Doppler. PERICARDIUM There is an epicardial fat pad. CONCLUSIONS: - Exam indication: Initial evaluation of Heart Failure - The left ventricle is normal in size. There is moderate asymmetric left ventricular hypertrophy. Left ventricular systolic function is normal. EF = 60 5% (2D biplane) - The right ventricle is normal in size. Right ventricular systolic function is normal. - The patient has not had a prior CC echocardiographic exam for comparison. * * * Final * * * CC [employer] Image : [id number] Normal [facility] HbA1c (Bld)on 07-09-2024 Average glucose Estimated from glycated hemoglobin (Bld) [Mass/Vol] 128 mg/dL Normal [facility] Comment on above: Order Comment: Marika hammonds Type: BLOOD SPECIMEN Ordering Facility: [facility] Address: [address] [place] [address] Result Comment: eAG: (Estimated average glucose) is a calculated value from HgbA1c and is human resources hr representative of the average blood glucose level in the last 2-3 month period. Performed By: #### 5 8410-2 #### [facility] CLIA [id number] [address] [place] [address] [place] HbA1c (Bld) [Mass fraction] 6.1 % High 4.3-5.6 [facility] Comment on above: Order Comment: Marika hammonds Type: BLOOD SPECIMEN Ordering Facility: [facility] Address: [address] [place] [address] Result Comment: Amer [place] Diabetes Association guidelines indicate that patients with HgbA1c in the range 5.7-6.4% are at increased risk for development of diabetes, and intervention by lifestyle modification may be beneficial. HgbA1c greater or equal to 6.5% is considered diagnostic of diabetes. Performed By: #### 5 8410-2 #### [facility] CLIA [id number] [address] [place] [address] [place] Lactate (Bld) [Moles/Vol]on 07-09-2024 Lactate [Moles/Vol] 2.1 mmol/L High 0.4-2.0 [facility] Comment on above: Order Comment: Marika hammonds Type: BLOOD SPECIMENOrdering Facility: [facility] Address: [address] [place] [address] Performed By: #### 9 5941-1 #### [facility] CLIA [id number] [address] [place], [place] [address] [facility] Magnesium [Mass/Vol] 1.8 mg/dL Normal 1.6-2.6 [facility] Comment on above: Order Comment: Marika hammonds Type: BLOOD SPECIMEN Ordering Facility: [facility] Address: [address] [place] [address] Performed By: #### 3 3762-6, 42498-2, 3024-7, 3016-3, 2777-1, 56142-7 #### [facility] CLIA [id number] [address] [place] [address] [facility]NP [facility] Natriuretic peptide.B prohormone N-Terminal [Mass/Vol] 3229 pg/mL High <125 [facility] Comment on above: Order Comment: Marika hammonds Type: BLOOD SPECIMEN Ordering Facility: [facility] Address: [address] [place] [address] Result Comment: NT-p roBNP results of less than 300 pg/mL likely rules out acute congestive heart failure with 99% predictive value. NOTE: These cutoff points are suggested for ACUTE CHF DIAGNOSIS only Less than 50 years\X09\ Greater than 450 pg/mL 50 - 75 years\X09\\X09\ Greater than 900 pg/mL Greater than 75 years\X09\ Greater than 1800 pg/mL Performed By: #### 3 3762-6, 46699-2, 3024-7, 3016-3, 2777-1, 92788-0 #### [facility] CLIA [id number] [address] [place], [place] [address] [place] PT panel Coag (PPP)on 2024 INR Coag (PPP) [Relative time] 1.0 {INR} Normal 0.9-1.3 [facility] Comment on above: Order Comment: Marika hammonds Type: BLOOD SPECIMEN Ordering Facility: [facility] Address: [address] [place] [address] Result Comment: Tisha min K Antagonist (VKA) Therapeutic Range: INR 2 to 3 (Target INR of 2.5) Note: For patients treated with VKA drugs, such as warfarin, the [place] [employer] 2012 Guideline recommends a therapeutic INR range of 2 to 3 (target INR of 2.5). This recommendation includes high-risk patients with antiphospholipid syndrome with previous arterial or venous thromboembolism, current-generation mechanical or bioprosthetic aortic heart valve replacement. Note: Patients with mechanical aortic valve replacement and additional risk factors for thromboembolic events (atrial fibrillation, previous thromboembolism, LV dysfunction, hypercoagulable conditions) or an older generation mechanical AVR (i.e., ball in-Cage) or any mechanical MVR should have a INR therapeutic range of 2.5 to 3.5 (target INR of 3). Barbara GRECO, et al. Chest 2012, 141:7S-47S Conrad RA, et al. [facility] 2017, 70: 252-289 Performed By: #### 3 4528-0, 28147-5 #### [facility] CLIA [id number] [address] [place] [address] [place] PT Coag (PPP) [Time] 10.9 s Normal 9.7-13.0 [facility] Comment on above: Order Comment: Marika hammonds Type: BLOOD SPECIMEN Ordering Facility: [facility] Address: [address] [place] [address] Performed By: #### 3 4528-0, 15756-0 #### [facility] CLIA [id number] [address] [place] [address] [place] Phosphate SerPl-mCncon 07-09 Phosphate [Mass/Vol] 3.6 mg/dL Normal 2.5-4.9 [facility] Comment on above: Order Comment: Marika hammonds Type: BLOOD SPECIMENOrdering Facility: [facility] Address: [address] [place] [address] Result Comment: Elev ated m-protein (paraprotein) levels in the serum may be exhibited in patients with monoclonal gammopathies, causing falsely elevated inorganic phosphorus results. Performed By: #### 9 5941-1 #### [facility] CLIA [id number] [address] [place] [address] [place] Procalcitonin SerPl-mCncon 0 07-09-2024 Procalcitonin [Mass/Vol] 0.07 ng/mL Normal 0.00-0.50 [facility] Comment on above: Order Comment: Speci men Type: BLOOD SPECIMENOrdering Facility: [facility] Address: [address] [place] [address] Result Comment: PCT Concentration Interpretation PCT <=0.1 ng/mL: Normal range for healthy adults PCT >0.1 ng/mL and <0.5 ng/mL: Systemic infection (sepsis) is possible and may require antibiotic treatment, but other conditions are known to elevate PCT as well. PCT >0.5 ng/mL: Should be considered at risk for developing severe sepsis or septic shock. PCT >2.0 ng/mL: Important systemic inflammatory response. Almost exclusively indicates episode of severe bacterial sepsis or septic shock. Performed By: #### 9 5941-1 #### [facility] CLIA [id number] [address] [place] [address] [place] STAPHYLOCOCCUS AUREUS AND MR SA SCREEN, PCR, NASALon 07-09-2024 S. aureus and MRSA panel CELIA+probe (Nose) Not detected Normal Not Detected [facility] Comment on above: Order Comment: Speci men Type: SWABOrdering Facility: [facility] Address: [address] [place] [address] Performed By: #### 9 5941-1 #### [facility] CLIA [id number] [address] [place] [address] [place] T4 Free SerPl-mCncon 025 Free T4 [Mass/Vol] 1.0 ng/dL Normal 0.8-1.5 [facility] Comment on above: Order Comment: Speci men Type: BLOOD SPECIMEN Ordering Facility: [facility] Address: [address] [place] [address] Performed By: #### 3 3762-6, 52857-1, 3024-7, 3016-3, 2777-1, 63825-3 #### [facility] CLIA [id number] [address] [place] [address] [place] TOXICOLOGY SCREEN, ROUTINE U RINEon 07-09-2024 Amphetamines Confirm (U) [Mass/Vol] Positive Abnormal Negative [facility] Comment on above: Order Comment: Speci men Type: URINE SPECIMENOrdering Facility: [facility] Address: [address] [place] [address] Result Comment: Cuto ff threshold at 1000 ng/mL. Performed By: #### 9 5941-1 #### [facility] CLIA [id number] [address] [place] [address] [place] BARBITURATES, URINE Negative Normal Negative [facility] Comment on above: Order Comment: Speci men Type: URINE SPECIMENOrdering Facility: [facility] Address: [address] [place] [address] Result Comment: Cuto ff threshold at 200 ng/mL. Performed By: #### 9 5941-1 #### [facility] CLIA [id number] [address] [place] [address] [place] BENZODIAZEPINES, UR Negative Normal Negative [facility] Comment on above: Order Comment: Speci men Type: URINE SPECIMENOrdering Facility: [facility] Address: [address] [place] [address] Result Comment: Cuto ff threshold at 200 ng/mL. Performed By: #### 9 5941-1 #### [facility] CLIA [id number] [address] [place] [address] [place] Cannabinoids Screen Ql (U) Positive Abnormal Negative [facility] Comment on above: Order Comment: Speci men Type: URINE SPECIMENOrdering Facility: [facility] Address: [address] [place] [address] Result Comment: Cuto ff threshold at 50 ng/mL. Performed By: #### 9 5941-1 #### [facility] CLIA [id number] [address] [place] [address] [place] Cocaine Ql (U) Negative Normal Negative [facility] Comment on above: Order Comment: Speci men Type: URINE SPECIMENOrdering Facility: [facility] Address: [address] [place] [address] Result Comment: Cuto ff threshold at 300 ng/mL. Performed By: #### 9 5941-1 #### [facility] CLIA [id number] [address] [place] [address] [place] Opiates Screen Ql (U) Positive Abnormal Negative [facility] Comment on above: Order Comment: Speci men Type: URINE SPECIMENOrdering Facility: [facility] Address: [address] [place] [address] Result Comment: Cuto ff threshold at 300 ng/mL. Performed By: #### 9 5941-1 #### [facility] CLIA [id number] [address] [place] [address] [place] Phencyclidine Ql (U) Negative Normal Negative [facility] Comment on above: Order Comment: Speci men Type: URINE SPECIMENOrdering Facility: [facility] Address: [address] [place] [address] Result Comment: Cuto ff threshold at 25 ng/mL. Performed By: #### 9 5941-1 #### [facility] CLIA [id number] [address] [place] [address] [place] TSH SerPl-aCncon 07-09-2024 TSH Qn 17.613 m[IU]/L High 0.358-3.740 [facility] Comment on above: Order Comment: Speci men Type: BLOOD SPECIMENOrdering Facility: [facility] Address: [address] [place] [address] Result Comment: 3rd generation ultra sensitive TSH. Performed By: #### 9 5941-1 #### [facility] CLIA [id number] [address] [place] [address] OF [place] Urinalysis complete panel (U )on 07-09-2024 Bacteria LM.HPF (Urine sed) [#/Area] None Seen Normal None Seen [facility] Comment on above: Order Comment: Speci men Type: URINE SPECIMENOrdering Facility: [facility] Address: [address] [place] [address] Performed By: #### 9 5941-1 #### [facility] CLIA [id number] [address] [place] [address] [place] Bilirubin Ql (U) Negative Normal Negative [facility] Comment on above: Order Comment: Speci men Type: URINE SPECIMENOrdering Facility: [facility] Address: [address] [place] [address] Performed By: #### 9 5941-1 #### [facility] CLIA [id number] [address] [place] [address] [place] Clarity (Unsp spec) Clear Normal Clear [facility] Comment on above: Order Comment: Speci men Type: URINE SPECIMENOrdering Facility: [facility] Address: [address] [place] [address] Performed By: #### 9 5941-1 #### [facility] CLIA [id number] [address] [place] [address] [place] Color (U) Yellow Normal Yellow [facility] Comment on above: Order Comment: Speci men Type: URINE SPECIMENOrdering Facility: [facility] Address: [address] [place] [address] Performed By: #### 9 5941-1 #### [facility] CLIA [id number] [address] [place] [address] OF [place] Epithelial cells LM.HPF (Urine sed) [#/Area] Few Normal [facility] Comment on above: Order Comment: Speci men Type: URINE SPECIMENOrdering Facility: [facility] Address: [address] [place] [address] Performed By: #### 9 5941-1 #### [facility] CLIA [id number] [address] [place] [address] OF [place] Glucose Test strip (U) [Mass/Vol] 1+ Abnormal Negative [facility] Comment on above: Order Comment: Speci men Type: URINE SPECIMENOrdering Facility: [facility] Address: [address] [place] [address] Performed By: #### 9 5941-1 #### [facility] CLIA [id number] [address] [place] [address] [place] Hemoglobin Ql (U) 1+ Abnormal Negative [facility] Comment on above: Order Comment: Speci men Type: URINE SPECIMENOrdering Facility: [facility] Address: [address] [place] [address] Performed By: #### 9 5941-1 #### [facility] CLIA [id number] [address] [place] [address] [place] Ketones Ql (U) Negative Normal Negative [facility] Comment on above: Order Comment: Speci men Type: URINE SPECIMENOrdering Facility: [facility] Address: [address] [place] [address] Performed By: #### 9 5941-1 #### [facility] CLIA [id number] [address] [place] [address] OF [place] Leukocyte esterase Test strip Ql (U) Negative Normal Negative [facility] Comment on above: Order Comment: Speci men Type: URINE SPECIMENOrdering Facility: [facility] Address: [address] [place] [address] Performed By: #### 9 5941-1 #### [facility] CLIA [id number] [address] [place] [address] [place] Nitrite Ql (U) Negative Normal Negative [facility] Comment on above: Order Comment: Speci men Type: URINE SPECIMENOrdering Facility: [facility] Address: [address] [place] [address] Performed By: #### 9 5941-1 #### [facility] CLIA [id number] [address] [place] [address] [place] pH (U) 6.0 [pH] Normal 5.0-8.0 [facility] Comment on above: Order Comment: Speci men Type: URINE SPECIMENOrdering Facility: [facility] Address: [address] [place] [address] Performed By: #### 9 5941-1 #### [facility] CLIA [id number] [address] [place] [address] [place] Protein (U) [Mass/Vol] 2+ Abnormal Negative [facility] Comment on above: Order Comment: Speci men Type: URINE SPECIMENOrdering Facility: [facility] Address: [address] [place] [address] Performed By: #### 9 5941-1 #### [facility] CLIA [id number] [address] [place] [address] [place] RBC LM.HPF (Urine sed) [#/Area] 3-5 /HPF Abnormal 0-3 /HPF [facility] Comment on above: Order Comment: Speci men Type: URINE SPECIMENOrdering Facility: [facility] Address: [address] [place] [address] Performed By: #### 9 5941-1 #### [facility] [place] [id number] [address] [place] [address] [place] Specific gravity (U) [Rel density] >1.030 High 1.005-1.030 [facility] Comment on above: Order Comment: Speci men Type: URINE SPECIMENOrdering Facility: [facility] Address: [address] [place] [address] Performed By: #### 9 5941-1 #### [facility] CLIA [id number] [address] [place] [address] [place] Urobilinogen Ql (U) Negative Normal Negative [facility] Comment on above: Order Comment: Speci men Type: URINE SPECIMENOrdering Facility: [facility] Address: [address] [place] [address] Performed By: #### 9 5941-1 #### [facility] CLIA [id number] [address] [place] [address] STATES [facility] WBC LM.HPF (Urine sed) [#/Area] 0-5 /HPF Normal 0-5 /HPF [facility] Comment on above: Order Comment: Speci men Type: URINE SPECIMENOrdering Facility: [facility] Address: [address] [place] [address] Performed By: #### 9 5941-1 #### [facility] CLIA [id number] [address] [place] [address] OF [place] XR CHEST 1V FRONTALon 2024 XR CHEST 1V FRONTAL * * *Final Report* * * DATE OF EXAM: Jul 09 2024 5:57AM RHX 5290 - XR CHEST 1V FRONTAL / PROCEDURE REASON: Shortness of breath * * * * Physician Interpretation * * * * EXAMINATION: CHEST RADIOGRAPH (SINGLE VIEW AP OR PA) CLINICAL HISTORY: Shortness of breath MQ: XC1_5 Comparison: None RESULT: Lines, tubes, and devices: None. Lungs and pleura: No consolidation. No lung mass. No pleural effusion. Cardiomediastinal silhouette: Normal cardiomediastinal silhouette. Other: No acute osseous findings. IMPRESSION: No acute radiographic abnormality. Airway Traffic Controller: GARY Transcribe Date/Time: Jul 09 2024 7:35A Dictated by : AMY PAIGE MD This examination was interpreted and the report reviewed and electronically signed by: AMY PAIGE MD on Jul 09 2024 7:35AM EST [id number] Normal [facility] aPTT PPPon 07-09-2024 aPTT Coag (PPP) [Time] 29.8 s Normal 23.0-32.4 [facility] Comment on above: Order Comment: Speci men Type: BLOOD SPECIMEN [facility] Address: [address] [place] [address] Performed By: #### 3 4528-0, 52795-2 #### [facility] CLIA [id number] [address] [place] [address] ALLIED HEALTHon 07-08-2024 ALLIED HEALTH HNO ID: [id number] Author: JELANI HUTTON RT(R) Service: Radiology Author Type: Technologist Type: Allied Health Filed: 07/08/2024 18:11 Note Text: Radiology Service Progress Note DATE OF SERVICE: July 08, 2024 TIME: 6:10 PM PATIENT IDENTITY VERIFICATION COMPLETED USING TWO (2) STANDARD IDENTIFIERS: Name and Date of confirmed by patient verbally. FALL SCREENING: Has the patient had 2 falls in the last year or 1 fall with injury or currently using an Ambulatory Assistive Device (Walker, Cane, Wheelchair, Crutches, etc.)? Emergency Room Patient: Screened in ED PATIENT GENDER DATA: Female. status: : No status: NO. PATIENT RELEVANT IMPLANT DATA REVIEWED: Not Applicable PATIENT PRESENTS WITH AN IMPLANTABLE OR ATTACHED TELEVISION PARTS TESTER: No ALLERGIES: Reviewed and unchanged CONTRAST ALLERGY: NO. EXAM: CT -CONTRAST INDUCED NEPHROPATHY RISK FACTORS: Patient age > 60 years CREATININE: Creatinine Date Value Ref Range Status 07/08/2024 1.26 (H) 0.58 - 0.96 mg/dL Final Estimated Glomerular Filtration Rate Date Value Ref Range Status 07/08/2024 47 (L) >=60 mL/min/1.73m? Final Comment: Estimated Glomerular Filtration Rate (eGFR) is calculated using the 2020 CKD-EPI creatinine equation. This equation utilizes serum creatinine, sex, and age as parameters. The creatinine assay has traceable calibration to isotope dilution-mass spectrometry. Refer to KDIGO guidelines for clinical interpretation. In patients with unstable renal function, e.g. those with acute kidney injury, the eGFR may not accurately reflect actual GFR. P.O.C.T. RESULTS: POC done: Yes, See Lab Tab July 08, 2024 TREATMENT: N/A PERIPHERAL IV DATA: Inpatient - refer to LDA documentation RADIOLOGY DEPARTMENT: CT; Exam(s) Completed: Brain , CTA Brain , and CTA Neck SIGNATURE: RT Maikel(R) PATIENT NAME: Maureen Barron DATE: July 08, 2024 TIME: 6:10 PM Normal [facility] Basic metabolic 2000 panelon 07-08-2024 Anion gap [Moles/Vol] 12 mmol/L Normal 8-15 Akr [facility] Comment on above: Order Comment: Speci men Type: BLOOD SPECIMENOrdering Facility: [facility] Address: [address] [place] [address] Performed By: #### 2 4321-2 ####[facility] [place] LABCLIA [id number] [place] [address] [place] Calcium [Mass/Vol] 10.4 mg/dL High 8.5-10.2 [facility] Comment on above: Order Comment: Speci men Type: BLOOD SPECIMENOrdering Facility: [facility] Address: [address] [place] [address] Performed By: #### 2 4321-2 ####[facility] [place] LABCLIA [id number] [facility] [place] [address] [place] Chloride [Moles/Vol] 96 mmol/L Low 98-107 [facility] Comment on above: Order Comment: Speci men Type: BLOOD SPECIMENOrdering Facility: [facility] Address: [address] [place] [address] Performed By: #### 2 4321-2 ####[facility] [place] LABCLIA [id number] [place] [facility] [place] [address] [place] CO2 [Moles/Vol] 27 mmol/L Normal 22-30 [facility] Comment on above: Order Comment: Speci men Type: BLOOD SPECIMENOrdering Facility: [facility] Address: [address] [place] [address] Performed By: #### 2 4321-2 ####[facility] [place] LABCLIA [id number] [facility] [place] [address] [place] Creatinine [Mass/Vol] 1.26 mg/dL High 0.58-0.96 [facility] Comment on above: Order Comment: Speci men Type: BLOOD SPECIMENOrdering Facility: [facility] Address: [address] [place] [address] Performed By: #### 2 4321-2 ####[facility] [place] LABCLIA [id number] [place] [address] [place] Creatinine and Glomerular filtration rate.predicted panel (S/P/Bld) 47 mL/min/1.73m??? Low >=60 [facility] Comment on above: Order Comment: Marika hammonds Type: BLOOD SPECIMENOrdering Facility: [facility] Address: [address] [place] [address] Result Comment: Maru mated Glomerular Filtration Rate (eGFR) is calculated using the 2020 CKD-EPI creatinine equation. This equation utilizes serum creatinine, sex, and age as parameters. The creatinine assay has traceable calibration to isotope dilution-mass spectrometry. Refer to KDIGO guidelines for clinical interpretation. In patients with unstable renal function, e.g. those with acute kidney injury, the eGFR may not accurately reflect actual GFR. Performed By: #### 2 4321-2 ####[facility] LABCLIA [id number] [place] [address] [place] Glucose [Mass/Vol] 162 mg/dL High 74-99 [facility] Comment on above: Order Comment: Marika hammonds Type: BLOOD SPECIMENOrdering Facility: [facility] Address: [address] [place] [address] Result Comment: The [place] [employer] (ADA) provides guidance for cutoff values for fasting glucose and random glucose. The ADA defines fasting as no caloric intake for at least 8 hours. Fasting plasma glucose results between 100 to 125 mg/dL indicate increased risk for diabetes (prediabetes). Fasting plasma glucose results greater than or equal to 126 mg/dL meet the criteria for diagnosis of diabetes. In the absence of unequivocal hyperglycemia, results should be confirmed by repeat testing. In a patient with classic symptoms of hyperglycemia or hyperglycemic crisis, random plasma glucose results greater than or equal to 200 mg/dL meet the criteria for diagnosis of diabetes. Reference: Standards of Medical Care in Diabetes 2016, [place] [employer]. Diabetes Care. 2016.39(Suppl 1). Performed By: #### 2 4321-2 ####[facility] LABCLIA [id number] [place] [address] [place] Potassium [Moles/Vol] 4.6 mmol/L Normal 3.7-5.1 [facility] Comment on above: Order Comment: Speci men Type: BLOOD SPECIMENOrdering Facility: [facility] Address: [address] [place] [address] Performed By: #### 2 4321-2 ####[facility] [place] LABCLIA [id number] [place] [address] [place] Sodium [Moles/Vol] 135 mmol/L Low 136-144 [facility] Comment on above: Order Comment: Speci men Type: BLOOD SPECIMENOrdering Facility: [facility] Address: [address] [place] [address] Performed By: #### 2 4321-2 ####[facility] LABCLIA [id number] [place] [address] [place] Urea nitrogen [Mass/Vol] 16 mg/dL Normal 7-21 [facility] Comment on above: Order Comment: Speci men Type: BLOOD SPECIMENOrdering Facility: [facility] Address: [address] [place] [address] Performed By: #### 2 4321-2 ####[facility] LABCLIA [id number] [place] [address] [place] CBC panel Auto (Bld)on 07-08 Erythrocyte distribution width (RBC) [Ratio] 13.1 % Normal 11.5-15.0 [facility] Comment on above: Order Comment: Speci men Type: BLOOD SPECIMENOrdering Facility: [facility] Address: [address] [place] [address] Performed By: #### 5 8410-2 ####[facility] [place] LABCLIA [id number] [place] [address] [facility] Hematocrit (Bld) [Volume fraction] 59.2 % High 36.0-46.0 [facility] Comment on above: Order Comment: Speci men Type: BLOOD SPECIMENOrdering Facility: [facility] Address: [address] [place] [address] Performed By: #### 5 8410-2 ####[facility] [place] LABCLIA [id number] [place] [address] [place] Hemoglobin (Bld) [Mass/Vol] 19.3 g/dL High 11.5-15.5 [facility] Comment on above: Order Comment: Speci men Type: BLOOD SPECIMENOrdering Facility: [facility] Address: [address] [place] [address] Performed By: #### 5 8410-2 ####[facility] LABCLIA [id number] [place] [address] [place] MCH (RBC) [Entitic mass] 30.8 pg Normal 26.0-34.0 [facility] Comment on above: Order Comment: Speci men Type: BLOOD SPECIMENOrdering Facility: [facility] Address: [address] [place] [address] Performed By: #### 5 8410-2 ####[facility] LABCLIA [id number] [place] [address] [place] [facility] MCHC (RBC) [Mass/Vol] 32.6 g/dL Normal 30.5-36.0 [facility] Comment on above: Order Comment: Speci men Type: BLOOD SPECIMENOrdering Facility: [facility] Address: [address] [place] [address] Performed By: #### 5 8410-2 ####[facility] LABCLIA [id number] [place] [address] [place] MCV (RBC) [Entitic vol] 94.4 fL Normal 80.0-100.0 [facility] Comment on above: Order Comment: Speci men Type: BLOOD SPECIMENOrdering Facility: [facility] Address: [address] [place] [address] Performed By: #### 5 8410-2 ####[facility] LABCLIA [id number] [place] [address] [place] Platelet mean volume (Bld) [Entitic vol] 9.4 fL Normal 9.0-12.7 [facility] Comment on above: Order Comment: Speci men Type: BLOOD SPECIMENOrdering Facility: [facility] Address: [address] [place] [address] Performed By: #### 5 8410-2 ####[facility] LABCLIA [id number] [place] [address] [facility] Platelets (Bld) [#/Vol] 291 10*3/uL Normal 150-400 [facility] Comment on above: Order Comment: Speci men Type: BLOOD SPECIMENOrdering Facility: [facility] Address: [address] [place] [address] Performed By: #### 5 8410-2 ####[facility] LABCLIA [id number] [place] [address] [facility] RBC (Bld) [#/Vol] 6.27 10*6/uL High 3.90-5.20 [facility] Comment on above: Order Comment: Speci men Type: BLOOD SPECIMENOrdering Facility: [facility] Address: [address] [place] [address] Performed By: #### 5 8410-2 ####[facility] LABCLIA [id number] [place] [address] [facility] WBC (Bld) [#/Vol] 13.94 10*3/uL High 3.70-11.00 [facility] Comment on above: Order Comment: Speci men Type: BLOOD SPECIMENOrdering Facility: [facility] Address: [address] [place] [address] Performed By: #### 5 8410-2 ####[facility] [place] LABCLIA [id number] [place] [address] [facility] [address] BRAIN WO IVCONon 07-08-19 CT BRAIN WO IVCON * * *Final Report* * * DATE OF EXAM: Jul 08 2024 6:11PM [facility] [place] 0504 - CT BRAIN WO IVCON / PROCEDURE REASON: Headache, sudden, severe * * * * Physician Interpretation * * * * EXAMINATION: CTA NECK W IVCON, CTA HEAD W IVCON, CT BRAIN WO IVCON HISTORY: Headache, sudden. 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 TECHNIQUE: Routine CT of the brain without IV contrast. Next, high resolution axial images were obtained through the head, neck and superior mediastinum following bolus administration of intravenous contrast for CT angiography. 3D maximum intensity projection images were created, reviewed and archived . MQ: CTABNPlus_4 Contrast: 100 mL Omnipaque [address] Radiation dose: Integrated Dose-Length Product (DLP) for this visit = 1608.43 (accession [id number]), 1608.43 (accession [id number]), 706.22 (accession [id number]) mGy*cm. CT Dose Reduction Employed: No dose reduction techniques were required COMPARISON: None. RESULT: BRAIN: Acute change: No evidence of an acute infarct or other acute parenchymal process. ASPECT Score = 10 Hemorrhage: No evidence of acute intracranial hemorrhage. ECASS hemorrhagic transformation score: Not Applicable Mass Lesion / Mass Effect: Prior endovascular treatment of basilar tip aneurysm noted. No significant mass effect. Chronic change: Patchy foci of low attenuation coefficient are present within white matter which is a nonspecific finding but likely represents moderate microvascular ischemia. Hypoattenuation deep white matter of both frontal lobes, extending into the anterior limb of the internal capsule bilaterally. 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 Parenchyma: There is no significant volume loss. The brain parenchyma is otherwise within normal limits for age. Ventricles: The ventricles are within normal limits of size and configuration for age. Other: The visualized paranasal sinuses are grossly clear. The skull and visualized extracranial soft tissues are grossly normal. NECK: Soft tissues: The soft tissue planes are maintained throughout. No evidence of a soft tissue mass in the neck or superior mediastinum. No significant lymphadenopathy is seen. There is a small portion of the left thyroid gland visible, with the remainder of the thyroid absent or atrophic. Changes from prior left carotid endarterectomy. Spine: There is slight anterolisthesis of C4 on C5.. Moderate degenerative changes are present. Severe facet arthropathy on the left at C4-5 and C5-6. Mild chronic-appearing superior endplate deformity of C7 noted to the left of midline Lung apices: The visualized lung apices are clear. CT ARTERIOGRAM: Extracranial Circulation: Aortic Arch: There is a normal branching pattern from the aortic arch. There is mild plaque at the origin of the great vessels but not hemodynamically significant. 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 Right Internal Carotid Stenosis (% by NASCET Criteria): 100% Left Common: There is mild plaque within the left common carotid artery with mild narrowing. Left Internal Carotid Plaque: Changes from prior endarterectomy with no evidence of significant stenosis Left Internal Carotid Stenosis (% by NASCET Criteria): 0 Cervical Vertebral Arteries: Patency: Bilateral Dominance: Left There is calcified plaque at the origin of the right vertebral artery with moderate to severe narrowing. Intracranial Circulation: Anterior Circulation: The cervical right internal carotid artery as well as the petrous and cavernous portions are occluded. There is a large right posterior communicating artery which is the predominant supply to the right MCA. The right A1 segment is hypoplastic. On the left, the A1 segment is dominant. There is mild to moderate plaque in the cavernous and supraclinoid ICA which does not appear hemodynamically significant. Both anterior cerebral arteries are patent, with the right filling predominantly be of the anterior communicating complex which is fenestrated. Both middle cerebral arteries are widely patent Vertebrobasilar Circulation: Both vertebral arteries are patent with the left being dominant. There is mild calcified plaque in the left V4 segment. There is no significant stenosis. The basilar artery is widely patent. There is been prior endovascular treatment of a basilar apex aneurysm no evidence of a significant recurrent aneurysm at the basilar tip. Both P1 segments are patent. Both superior cerebellar arteries are patent. There continues to be a slight bulbous appearance to the distal basilar, without a discrete saccular aneurysm. Both posterior cerebral arteries appear t (more content not included)... Normal [facility] CTA HEAD W IVCONon 5 CTA HEAD W IVCON * * *Final Report* * * DATE OF EXAM: Jul 08 2024 6:11PM [facility] [place] 0022 - CTA HEAD W IVCON / PROCEDURE REASON: Headache, sudden, severe * * * * Physician Interpretation * * * * EXAMINATION: CTA NECK W IVCON, CTA HEAD W IVCON, CT BRAIN WO IVCON HISTORY: Headache, sudden. 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 TECHNIQUE: Routine CT of the brain without IV contrast. Next, high resolution axial images were obtained through the head, neck and superior mediastinum following bolus administration of intravenous contrast for CT angiography. 3D maximum intensity projection images were created, reviewed and archived . MQ: CTABNPlus_4 Contrast: 100 mL Omnipaque [address] Radiation dose: Integrated Dose-Length Product (DLP) for this visit = 1608.43 (accession [id number]), 1608.43 (accession [id number]), 706.22 (accession [id number]) mGy*cm. CT Dose Reduction Employed: No dose reduction techniques were required COMPARISON: None. RESULT: BRAIN: Acute change: No evidence of an acute infarct or other acute parenchymal process. ASPECT Score = 10 Hemorrhage: No evidence of acute intracranial hemorrhage. ECASS hemorrhagic transformation score: Not Applicable Mass Lesion / Mass Effect: Prior endovascular treatment of basilar tip aneurysm noted. No significant mass effect. Chronic change: Patchy foci of low attenuation coefficient are present within white matter which is a nonspecific finding but likely represents moderate microvascular ischemia. Hypoattenuation deep white matter of both frontal lobes, extending into the anterior limb of the internal capsule bilaterally. 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 Parenchyma: There is no significant volume loss. The brain parenchyma is otherwise within normal limits for age. Ventricles: The ventricles are within normal limits of size and configuration for age. Other: The visualized paranasal sinuses are grossly clear. The skull and visualized extracranial soft tissues are grossly normal. NECK: Soft tissues: The soft tissue planes are maintained throughout. No evidence of a soft tissue mass in the neck or superior mediastinum. No significant lymphadenopathy is seen. There is a small portion of the left thyroid gland visible, with the remainder of the thyroid absent or atrophic. Changes from prior left carotid endarterectomy. Spine: There is slight anterolisthesis of C4 on C5.. Moderate degenerative changes are present. Severe facet arthropathy on the left at C4-5 and C5-6. Mild chronic-appearing superior endplate deformity of C7 noted to the left of midline Lung apices: The visualized lung apices are clear. CT ARTERIOGRAM: Extracranial Circulation: Aortic Arch: There is a normal branching pattern from the aortic arch. There is mild plaque at the origin of the great vessels but not hemodynamically significant. 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 Right Internal Carotid Stenosis (% by NASCET Criteria): 100% Left Common: There is mild plaque within the left common carotid artery with mild narrowing. Left Internal Carotid Plaque: Changes from prior endarterectomy with no evidence of significant stenosis Left Internal Carotid Stenosis (% by NASCET Criteria): 0 Cervical Vertebral Arteries: Patency: Bilateral Dominance: Left There is calcified plaque at the origin of the right vertebral artery with moderate to severe narrowing. Intracranial Circulation: Anterior Circulation: The cervical right internal carotid artery as well as the petrous and cavernous portions are occluded. There is a large right posterior communicating artery which is the predominant supply to the right MCA. The right A1 segment is hypoplastic. On the left, the A1 segment is dominant. There is mild to moderate plaque in the cavernous and supraclinoid ICA which does not appear hemodynamically significant. Both anterior cerebral arteries are patent, with the right filling predominantly be of the anterior communicating complex which is fenestrated. Both middle cerebral arteries are widely patent Vertebrobasilar Circulation: Both vertebral arteries are patent with the left being dominant. There is mild calcified plaque in the left V4 segment. There is no significant stenosis. The basilar artery is widely patent. There is been prior endovascular treatment of a basilar apex aneurysm no evidence of a significant recurrent aneurysm at the basilar tip. Both P1 segments are patent. Both superior cerebellar arteries are patent. There continues to be a slight bulbous appearance to the distal basilar, without a discrete saccular aneurysm. Both posterior cerebral arteries appear th (more content not included)... Normal [facility] CTA NECK W IVCONon CTA NECK W IVCON * * *Final Report* * * DATE OF EXAM: Jul 08 2024 6:11PM [facility] [place] 0024 - CTA NECK W IVCON / PROCEDURE REASON: Headache, sudden, severe * * * * Physician Interpretation * * * * EXAMINATION: CTA NECK W IVCON, CTA HEAD W IVCON, CT BRAIN WO IVCON HISTORY: Headache, sudden. 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 TECHNIQUE: Routine CT of the brain without IV contrast. Next, high resolution axial images were obtained through the head, neck and superior mediastinum following bolus administration of intravenous contrast for CT angiography. 3D maximum intensity projection images were created, reviewed and archived . MQ: CTABNPlus_4 Contrast: 100 mL Omnipaque [address] Radiation dose: Integrated Dose-Length Product (DLP) for this visit = 1608.43 (accession [id number]), 1608.43 (accession [id number]), 706.22 (accession [id number]) mGy*cm. CT Dose Reduction Employed: No dose reduction techniques were required COMPARISON: None. RESULT: BRAIN: Acute change: No evidence of an acute infarct or other acute parenchymal process. ASPECT Score = 10 Hemorrhage: No evidence of acute intracranial hemorrhage. ECASS hemorrhagic transformation score: Not Applicable Mass Lesion / Mass Effect: Prior endovascular treatment of basilar tip aneurysm noted. No significant mass effect. Chronic change: Patchy foci of low attenuation coefficient are present within white matter which is a nonspecific finding but likely represents moderate microvascular ischemia. Hypoattenuation deep white matter of both frontal lobes, extending into the anterior limb of the internal capsule bilaterally. 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 Parenchyma: There is no significant volume loss. The brain parenchyma is otherwise within normal limits for age. Ventricles: The ventricles are within normal limits of size and configuration for age. Other: The visualized paranasal sinuses are grossly clear. The skull and visualized extracranial soft tissues are grossly normal. NECK: Soft tissues: The soft tissue planes are maintained throughout. No evidence of a soft tissue mass in the neck or superior mediastinum. No significant lymphadenopathy is seen. There is a small portion of the left thyroid gland visible, with the remainder of the thyroid absent or atrophic. Changes from prior left carotid endarterectomy. Spine: There is slight anterolisthesis of C4 on C5.. Moderate degenerative changes are present. Severe facet arthropathy on the left at C4-5 and C5-6. Mild chronic-appearing superior endplate deformity of C7 noted to the left of midline Lung apices: The visualized lung apices are clear. CT ARTERIOGRAM: Extracranial Circulation: Aortic Arch: There is a normal branching pattern from the aortic arch. There is mild plaque at the origin of the great vessels but not hemodynamically significant. 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 Right Internal Carotid Stenosis (% by NASCET Criteria): 100% Left Common: There is mild plaque within the left common carotid artery with mild narrowing. Left Internal Carotid Plaque: Changes from prior endarterectomy with no evidence of significant stenosis Left Internal Carotid Stenosis (% by NASCET Criteria): 0 Cervical Vertebral Arteries: Patency: Bilateral Dominance: Left There is calcified plaque at the origin of the right vertebral artery with moderate to severe narrowing. Intracranial Circulation: Anterior Circulation: The cervical right internal carotid artery as well as the petrous and cavernous portions are occluded. There is a large right posterior communicating artery which is the predominant supply to the right MCA. The right A1 segment is hypoplastic. On the left, the A1 segment is dominant. There is mild to moderate plaque in the cavernous and supraclinoid ICA which does not appear hemodynamically significant. Both anterior cerebral arteries are patent, with the right filling predominantly be of the anterior communicating complex which is fenestrated. Both middle cerebral arteries are widely patent Vertebrobasilar Circulation: Both vertebral arteries are patent with the left being dominant. There is mild calcified plaque in the left V4 segment. There is no significant stenosis. The basilar artery is widely patent. There is been prior endovascular treatment of a basilar apex aneurysm no evidence of a significant recurrent aneurysm at the basilar tip. Both P1 segments are patent. Both superior cerebellar arteries are patent. There continues to be a slight bulbous appearance to the distal basilar, without a discrete saccular aneurysm. Both posterior cerebral arteries appear th (more content not included)... Normal [facility] ECG COMPLETEon 07-08-2024 ECG COMPLETE Ventricular Rate : 7 8 BPM Atrial Rate : 78 BPM P-R Interval : 306 ms QRS Duration : 104 ms Q-T Interval : 410 ms QTC Calculation(Bazett) : 467 ms Calculated P [place] : -48 degrees Calculated R [place] : -19 degrees Calculated T [place] : 17 degrees UNUSUAL P AXIS, POSSIBLE ECTOPIC ATRIAL RHYTHM MINIMAL VOLTAGE CRITERIA FOR LVH, MAY BE NORMAL VARIANT ( Hooper product ) BORDERLINE J POINT ELEVATIONS IN ANETROSEPTAL LEADS, WITH T WAVE INVERSIONS ABNORMAL ECG NO PREVIOUS ECGS AVAILABLE CONSIDER SERIAL EKGS, AND CORRELATE WITH TROPONINS, CLINICAL HISTORY Confirmed by MD DELBERT, BERE ([id number]) on 07/10/2024 9:15:17 AM NAME : MAUREEN HERZOG PID : [id number] : 1955 Gender : Female Race : Unknown ORD : [id number] Procedure Date : Jul 08 2024 16:55:42 Edit Date : Jul 10 2024 09:15:21 Diagnosis: UNUSUAL P AXIS, POSSIBLE ECTOPIC ATRIAL RHYTHM MINIMAL VOLTAGE CRITERIA FOR LVH, MAY BE NORMAL VARIANT ( Hooper product ) BORDERLINE J POINT ELEVATIONS IN ANETROSEPTAL LEADS, WITH T WAVE INVERSIONS ABNORMAL ECG NO PREVIOUS ECGS AVAILABLE CONSIDER SERIAL EKGS, AND CORRELATE WITH TROPONINS, CLINICAL HISTORY Confirmed by MD MANDUJANO VINAYAK ([id number]) on 07/10/2024 9:15:17 AM Test Reason : Chest Pain Location : 191 : [facility] ED Overread By : MD MANDUJANO VINAYAK Edited By : MD MANDUJANO VINAYAK Referred By : , Acquired by : SUKHI COLE [facility] ED NOTEon 07-08-2024 ED NOTE HNO ID: [id number] Author: LUCERO RAMSEY RN Service: Emergency Medicine Author Type: Registered Nurse Type: ED Notes Filed: 07/08/2024 22:31 Note Text: Patient requesting meds for pain to neck. Physician updated. [facility] ED NOTE HNO ID: [id number] Author: LUCERO RAMSEY RN Service: Emergency Medicine Author Type: Registered Nurse Type: ED Notes Filed: 07/08/2024 21:40 Note Text: Bed assignment [facility] icu-[address] [facility] [place] [phone] [facility] 60-90mins [facility] ED NOTE HNO ID: [id number] Author: LUCERO RAMSEY RN Service: Emergency Medicine Author Type: Registered Nurse Type: ED Notes Filed: 07/08/2024 21:18 Note Text: Assumed care of patient. Patient awake and alert in bed. Continues to report pain to bilateral neck, unchanged from initial presentation. Updated with current POC. 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 Normal [facility] ED NOTE HNO ID: [id number] Author: MERLE PENA, TESHA Service: Emergency Medicine Author Type: Registered Nurse Type: ED Notes Filed: 07/08/2024 21:03 Note Text: O2 sats dipping to 88-90% on r/a when sleeping. O2 2lpm via NC for support [facility] ED NOTE HNO ID: [id number] Author: LES KNOX, TESHA Service: ? Author Type: Registered Nurse Type: ED Notes Filed: 07/08/2024 19:58 Note Text: ICU doctor on line for to speak with Doctor Katie. Normal [facility] ED NOTE HNO ID: [id number] Author: KRISS COLLINS RN Service: Nursing Author Type: Registered Nurse Type: ED Notes Filed: 07/08/2024 16:53 Note Text: EKG at bedside Normal [facility] ED NOTE HNO ID: [id number] Author: KRISS COLLINS RN Service: Nursing Author Type: Registered Nurse Type: ED Notes Filed: 07/08/2024 16:15 Note Text: Has had neck pain radiating into her occiput x 2 days. She is unable to rotate her neck or extend or flex. She denies history of recent illness. She has had aneurysms in the past (2018) [facility] ED PROV NOTEon 07-08-2024 ED PROV NOTE HNO ID: [id number] Author: ALYSIA ELAM MD Service: Emergency Medicine Author Type: Physician Type: ED Provider Notes Filed: 07/09/2024 00:04 Note Text: ED Provider Note Patient Name: Maureen Herzog : 1955 SERVICE DATE: 07/08/24 History Patient presents with: Headache Nausea Maureen Herzog is a 68 year old female with history of cerebral aneurysms who presents with a occipital headache. Patient has not had similar episodes of headache in the past. - . Patient was exposed to no known exposures. - Symptoms began 2 days prior to arrival. Onset was gradual. - Severity: moderate - Timing: constant - Quality: Pain in left neck and occipital head - Pain is exacerbated by movement. - Pain is not exacerbated by bright lights. - Symptoms are associated with nothing. - Symptoms are not associated with this tingling or weakness. - Improved by nothing. - Not improved by rest or a muscle relaxer she borrowed from her sister Patient states that she woke up 2 days ago with pain in the left side of her neck and trapezius area radiating to the occipital head she says it feels like muscle pain but she cannot get it to go away and is worsening. She also has a history of aneurysm repairs done in [place] in 2019 it sounds like these are in the posterior circulation by her description at that time she was on blood pressure medication but she is stopped all her blood pressure medicines at least about 6 or 7 months ago. She says she is treating her blood pressure with homeopathic agents and she says normally her blood pressure when checked at home runs about 110 systolic. PAST MEDICAL HISTORY Diagnosis Date Aneurysm (HCC) 2019 Cardiovascular disease 2010 Hypertension Leg fracture, left 01/2024 Thyroid disease PAST SURGICAL HISTORY Procedure Laterality Date SHX VASCULAR SURGERY 2019 No family history on file. Social History Tobacco Use Smoking status: Every Day Current packs/day: 0.50 Types: Cigarettes Smokeless tobacco: Not on file Vaping Use Vaping status: Former Substance and Sexual Activity Alcohol use: Not Currently Drug use: Yes Types: Marijuana Comment: Smokes about 4 to 5 times daily Sexual activity: Not on file ALLERGIES No Known Allergies Review of Systems Constitutional: Negative for chills and fever. Eyes: Negative for photophobia, pain and visual disturbance. Respiratory: Negative for cough and shortness of breath. Cardiovascular: Negative for chest pain and palpitations. Gastrointestinal: Negative for nausea and vomiting. Musculoskeletal: Positive for neck pain. Negative for back pain. Allergic/Immunologic: Negative for environmental allergies, food allergies and immunocompromised state. Neurological: Positive for headaches. Negative for syncope, weakness, light-headedness and numbness. Psychiatric/Behavioral : Negative for confusion. The patient is nervous/anxious. She is recently moved to [place] moved in with her sister states that she has been under a lot of stress with the break-up of her marriage that occurred in [place]. Physical Exam Vitals [07/08/24 1557] BP Pulse Temp Temp src Resp SpO2 Weight Height (!) 240/113 82 36.1 ?C (97 ?F) Temporal Art 16 99 % 53.1 kg (117 lb) -- Physical Exam Constitutional: General: She is not in acute distress. Appearance: Normal appearance. She is not ill-appearing, toxic-appearing or diaphoretic. HENT: Head: Normocephalic and atraumatic. Mouth/Throat: Mouth: Mucous membranes are moist. Eyes: Extraocular Movements: Extraocular movements intact. Conjunctiva/sclera: Conjunctivae normal. Neck: Comments: Tender left paraspinal musculature and pain with rotation flexion extension seems very muscular on examination. Cardiovascular: Rate and Rhythm: Normal rate and regular rhythm. Pulses: Normal pulses. Pulmonary: Effort: Pulmonary effort is normal. No respiratory distress. Breath sounds: Normal breath sounds. Musculoskeletal: General: No swelling or tenderness. Normal range of motion. Cervical back: Neck supple. Skin: General: Skin is warm and dry. Findings: No rash. Neurological: General: No focal deficit present. Mental Status: She is alert and oriented to person, place, and time. Comments: Fine tremor which is not new this is bilateral patient also has no numbness tingling or weakness she has no facial droop or asymmetry. Psychiatric: Mood and Affect: Mood normal. Behavior: Behavior normal. Thought Content: Thought content normal. Judgment: Judgment normal. Diagnostic Testing ED Labs Ordered and Reviewed - No data to display Procedures ED Course / Clinical Impression Clinical Impressions as of 07/09/24 0003 Hypertensive emergency MDM / Disposition / Plan Blood pressure is markedly elevated in both arms. Patient states that this is abnormal for her she indicates that she has been able to maintain blood (more content not included)... Normal [facility] HIGH SENSITIVITY TROPONIN T (INITIAL)on 07-08-2024 Troponin T.cardiac High sensitivity method [Mass/Vol] 11 ng/L Normal <12 [facility] Comment on above: Order Comment: Speci men Type: BLOOD SPECIMENOrdering Facility: [facility] Address: [address] [place] [address] Performed By: #### L [id number] ####[facility] LABCLIA [id number] [address] HIGH SENSITIVITY TROPONIN T (SECOND)on 07-08-2024 Troponin T.cardiac High sensitivity method [Mass/Vol] 11 ng/L Normal <12 [facility] Comment on above: Order Comment: Speci men Type: BLOOD SPECIMENOrdering Facility: [facility] Address: [address] [place] [address] Performed By: #### L [id number] ####[facility] LABCLIA [id number] [place] [address] [place] HISTORY PHYSICALon HISTORY PHYSICAL HNO ID: [id number] Author: FIDENCIO ADORNO APRN.CORPORATE INTERN Service: Critical Care Author Type: Nurse Practitioner Type: H&P Filed: 07/09/2024 00:46 Note Text: [facility] PULMONARY [facility]ICAL [facility]ARE SERVICE DATE: July 08, 2024 SERVICE TIME: 12:30 AM HPI: This is a 68-year-old female with a past medical history significant for HTN, carotid endarterectomy, chronic internal carotid occlusion, previous cerebral aneurysm with repair who presents to [place] ED today with complaints of 2 days of progressively worsening headache and left-sided neck pain. Patient was found to be severely hypertensive with initial BP of 240/113. Of note, patient reports to the ED physician that she has stopped any home antihypertensives 6 months ago and states that she is treating her blood pressure homeopathically. Heart rate, temp, respirations, pulse ox all stable. Initial workup included chemistry, CBC. BMP significant for creatinine 1.26 with no baseline to refer to and glucose 162. CBC with leukocytosis of 14K, HANDH 19.3/59.2. CT/CTA head and neck were completed and showed no evidence of acute intracranial hemorrhage or acute ischemic changes however, the CTA neck reveals complete occlusion of the right internal carotid artery which appears to be chronic as well as evidence of a previous left-sided carotid endarterectomy as well as moderate cervical spondylosis. No acute LVO noted on CTA head. Patient is headache was treated with morphine. Nausea was treated with ondansetron. Patient received labetalol 10 mg IV x 3 with minimal improvement in BP. Patient started on Cardene drip and ICU was consulted for transfer. On discussion with the ED provider it was recommended that systolic blood pressure reduction be limited to a systolic of 180 to prevent the risk of cerebral ischemia. Transport initiated to [facility] ICU. On arrival to ICU patient is systolic blood pressure in the 120s. Per transport, despite my recommendation of lowering systolic blood pressure low to no less than 190 she was found to have a systolic blood pressure of 110 prompting them to discontinue Cardene. Fortunately, she is awake/alert and oriented x 3. Neuroexam is benign. Continues to have complaints of left-sided neck pain but occipital headache is resolved. Reports that she has been sleeping on the floor since December which she attributes as the inciting factor for her neck pain. Other than neck pain and headache, she has no additional complaints and denies vision changes, paresthesias, chest pain, SOB, cough, abdominal pain, N/V/D, urinary frequency/dysuria. Physical exam is benign. Socially, patient lives with sister. She is just moved from [place]. Prior to that she was homeless after her divorce. She now reports that she has no issues with housing and has access to healthcare/health insurance however she reports that she has been attempting to treat her hypertension and hypothyroidism with homeopathic methods. She is a current every day smoker and reports smoking 4 cigarettes/day for the last 40 years as well as smoking marijuana. She denies EtOH. Denies illicit drug use however she has concern for passive exposure to methamphetamines as she reports her neighbor makes and sells methamphetamines. We discussed the current clinical course and expected outcomes. Discussed planned diagnostics. PAST MEDICAL HISTORY: SEE CHRONIC ISSSUES: PAST MEDICAL HISTORY Diagnosis Date Aneurysm (HCC) 2019 Cardiovascular disease 2009 Hypertension Leg fracture, left 01/2024 Thyroid disease PAST SURGICAL HISTORY Procedure Laterality Date SHX VASCULAR SURGERY 2019 No family history on file. Social History Tobacco Use Smoking status: Every Day Current packs/day: 0.50 Types: Cigarettes Vaping Use Vaping status: Former Substance Use Topics Alcohol use: Not Currently Drug use: Yes Types: Marijuana Comment: Smokes about 4 to 5 times daily HOME MEDICATIONS: levothyroxine 100 mcg capTake 100 mcg by mouth daily before breakfast.Disp: Rfl: aspirin, enteric coated (ASPIRIN, ENTERIC COATED) 81 mg EC tabletTake 162 mg by mouth once daily.Disp: Rfl: INPATIENT MEDICATIONS: No current facility-administered medications for this encounter. Facility-Administered Medications Ordered in Other Encounters Medication Dose Route Frequency iv contrast (radiology procedure) INTRAVENOUS DIRECTED PRN NaCl 0.9% iv infusion 125 mL/hr INTRAVENOUS CONTINUOUS niCARdipine iv infusion 40 mg in NaCl (iso-osmotic) 200 mL (CARDENE) 2.5-15 mg/hr INTRAVENOUS CONTINUOUS ALLERGIES: Patient has no known allergies. COMPLETE REVIEW OF SYSTEMS: General: Denies fever/chills, fatigue, malaise or weight loss HEENT: Reports headaches.denies nosebleeds, congestion Neck: Reports stiffness and neck pain left > right. Respiratory: Denies dyspnea, wheezing, cough, productive sputum, hemoptysis Cardiovascular: Denies chest pain, sync (more content not included)... [facility] CNOVon 06-25-2024 CNOV Office Visit (AGFAMPLE) MAUREEN BARRON ([id number]) 1955 F Date Time Provider Department 06/25/24 1:00 PM MARIANELA EDWARDS During your visit today, we recorded the following information about you: Temperature Pulse Respiration Blood pressure 97.7 degrees 58/minute 16/minute 118/72 Weight Height 54 kg 1.524 m Gloria Srinivasan MA 06/25/2024 1:25 PM Signed BONE MINERAL DENSITY PATIENT INSTRUCTIONS Bone mineral density testing measures the amount of calcium in certain parts of your bones. This information determines how strong your bones are. The test is used to detect osteoporosis, a disease in which the bone's mineral content and density are low, increasing a person's risk of fractures. The lumbar spine (lower back) and the hip are the skeletal sites usually examined. For the test, remember that: 1. You cannot take this test if you are . 2. Eat a normal diet on the day of the test. 3. Take your medications as you normally would. 4. DO NOT take calcium supplements (such as Tums) for 24 hours before the test. 5. On the day of the test, leave valuables (jewelry or credit cards) at home. 6. The test should be performed prior to oral, rectal or IV contrast studies, or at least 7 days after any of these studies. For the test, you may be asked to wear a hospital gown. You will lie on your back, on a padded table, in a comfortable position. Generally, you can resume your usual activities immediately. Marianela Edwards DO 07/08/2024 8:52 AM Signed SUBJECTIVE: 68 year old female here with her sister to establish. I have fully reviewed the past medical, surgical, social and family history and updated the Histories section of [facility]. She has a history of carotid endarterectomy, hep c, hypothyroidism She has shaking of the right arm She has numbness in her right arm and in her right leg She has a history of a brain aneurysm She has been to a vascular surgeon in the past and would like a referral to establish with a new one She stopped all her meds other than thyroid and baby aspirin She smokes 1/2 PPD No LMP recorded. ALLERGIES No Known Allergies Current Outpatient Medications Medication Sig Dispense Refill levothyroxine (SYNTHROID) 100 mcg tablet Take 100 mcg by mouth daily before breakfast. aspirin, enteric coated (ASPIRIN, ENTERIC COATED) 81 mg EC tablet Take 162 mg by mouth once daily. No current facility-administered medications for this visit. There is no problem list on file for this patient. Social History Tobacco Use Smoking status: Every Day Current packs/day: 0.50 Types: Cigarettes Smokeless tobacco: Never Vaping Use Vaping status: Former Substance Use Topics Alcohol use: Yes Comment: rarely Drug use: Yes Types: Marijuana Family History Problem Relation Age of Onset Hypertension Mother Hyperlipidemia Mother Heart Mother Intersitial Lung Disease Mother Thyroid Mother Hyperlipidemia Father Hypertension Father Diabetes Father Heart Attack Father Stroke Father Systemic Lupus Erythematosus Sister Cancer Paternal Grandfather stomach Leukemia Maternal Uncle Reviewed past medical history, family history and surgeries. All medications and supplements were reviewed with the patient. REVIEW OF SYSTEMS GENERAL: No weight loss, malaise or fevers HEENT: Negative for frequent or significant headaches, No changes in hearing or vision, no nose bleeds or other nasal problems NECK: Negative for lumps, goiter, pain and significant neck swelling RESPIRATORY: Negative for cough, hemoptysis, wheezing, COPD, dyspnea or shortness of breath CARDIOVASCULAR: Negative for chest pain, leg swelling, hypertension, CHF or palpitations GI: No nausea, vomiting, or diarrhea : No history of dysuria, frequency or incontinence MUSCULOSKELETAL: Negative for joint pain or swelling, back pain or muscle pain SKIN: Negative for lesions, rash, and itching PSYCH: Negative for sleep disturbance, mood disorder and recent psychosocial stressors HEMATOLOGY/LYMPHOLOGY: Negative for prolonged bleeding, bruising easily or swollen nodes ENDOCRINE: Negative for cold or heat intolerance, polyuria, polydipsia and goiter NEURO: tremors, numbess PHYSICAL EXAMINATION: BP 118/72 Pulse (!) 58 Temp 36.5 ?C (97.7 ?F) Resp 16 Ht 152.4 cm (5') Wt 54 kg (119 lb) SpO2 98% BMI 23.24 kg/m? General appearance: Well appearing, alert, in no acute distress, well-hydrated, well nourished. Skin: Skin color, texture, turgor normal, no suspicious rashes or lesions Head: Normocephalic, no masses, lesions, tenderness or abnormalities Eyes: Anicteric sclera. Pupils are equally round and reactive to light. Extraocular movements are intact. Ears: External ears normal, canals clear Nose/Sinuses: Nares normal, sep (more content not included)... Normal [facility] NCS and/or EMG Patienton NCS and/or EMG Patient [facility] Pulmonary Services/Neurology [address] [place] [address] MR#: [id number] Acct: [id number] Name: MAUREEN BARRON ALYSHA Rep #: [id number] : 1955 68 From: Hardeep Patrick MD Referring Dr: Jaziel Lin DO Status: REG C LI Location: [facility] Date: 06/13/24 Sex: F C NCS and/or EMG Patient Report Ordering Doctor: Arnold Schaefer DATE OF SERVICE: 06/13/24 Maureen presents with complaints of numbness and tingling in the right hand. Electrodiagnostic findings: Right median motor nerve demonstrates prolonged latency with normal amplitude and reduced conduction velocity. Right ulnar motor responses within normal limits. Normal right median and ulnar F???waves. Prolonged right median sensory latency at the wrist. Needle EMG testing was performed in the right upper limb. All muscles tested showed no evidence of denervation with normal motor unit action potentials. Electrodiagnostic impression: This is an abnormal study in the right upper limb. 1. Electrodiagnostic findings suggestive of right-sided median mononeuropathy. This consistent with a mild to moderate right carpal tunnel syndrome. 2. No electrodiagnostic evidence is noted for cervical radiculopathy Multi Select Codes Neurology Neurology Interp Codes: 49948-43 Musc test done w/n test comp (interp) and 05710-93 Nrv cndj test 7- 8 studies (interp) 06/13/24 1311 Date Hardeep Patrick MD CC: Dr. Hardeep Patrick MD; Dr. Jaziel Lin DO; No Primary Care Physician Date Dictated: 06/13/241308 Date Transcribed: 06/13/241308 Airway Traffic Controller: AA Signed Normal [facility] Basic Metabolic Profile (BMP )on 03-12-2024 BUN/CRE 15.0 RATIO Normal 10-20 [facility] Comment on above: Performed By: #### L 100.0100, L500.2500 ####[facility] [address] [place], [address] CA,Total 8.9 mg/dL Normal 8.5-10.1 [facility] Comment on above: Performed By: #### L 100.0100, L500.2500 ####[facility] [address] [place], [address] Chloride [Moles/Vol] 104 mmol/L Normal 98-107 [facility] Comment on above: Performed By: #### L 100.0100, L500.2500 ####[facility] [address] [place], [address] CO2 [Moles/Vol] 27.0 mmol/L Normal 21.0-32.0 [facility] Comment on above: Performed By: #### L 100.0100, L500.2500 ####[facility] [address] [place], [address] Creatinine [Mass/Vol] 0.94 mg/dL Normal 0.55-1.02 [facility] Comment on above: Result Comment: The validity of the calculated GFR GFRAA in patients over 70 years has not been determined. Clinical correlation is essential. Performed By: #### L 100.0100, L500.2500 ####[facility] [address] [place], [address] ECRCL 47.55 ml/min Normal [facility] Comment on above: Performed By: #### L 100.0100, L500.2500 ####[facility] [address] [place], [address] EST GFR - AA 77 mL/min Normal >60 [facility] Comment on above: Result Comment: Afri can Nepalese GFR Calc Performed By: #### L 100.0100, L500.2500 ####[facility] [address] [place], [address] GAP 5 Normal 5-15 [facility] Comment on above: Performed By: #### L 100.0100, L500.2500 ####[facility] [address] [place], [address] GFR/1.73 sq M.predicted among non-blacks MDRD (S/P/Bld) [Vol rate/Area] 63 mL/min/{1.73_m2} Normal >60 [facility] Comment on above: Result Comment: Non- GFR Calc Performed By: #### L 100.0100, L500.2500 ####[facility] [address] [place], [address] Glucose [Mass/Vol] 115 mg/dL High 74-106 [facility] Comment on above: Result Comment: Fast ing Glucose result from 100 to 125 mg/dL suggests IMPAIRED HOMEOSTASIS per A.D.A. criteria. Performed By: #### L 100.0100, L500.2500 ####[facility] [address] [place], [address] Potassium [Moles/Vol] 3.6 mmol/L Normal 3.5-5.1 [facility] Comment on above: Performed By: #### L 100.0100, L500.2500 ####[facility] [address] [place], [address] Sodium [Moles/Vol] 136 mmol/L Normal 136-145 [facility] Comment on above: Performed By: #### L 100.0100, L500.2500 ####[facility] [address] [place], [address] Urea nitrogen [Mass/Vol] 14 mg/dL Normal 7-18 [facility] Comment on above: Performed By: #### L 100.0100, L500.2500 ####[facility] [address] [place], [address] CBC W/Diff, Automatedon 09-0 9-2023 Absolute Lymph 1.09 X10 3/uL Normal 0.83-4.51 [facility] Comment on above: Performed By: #### L 100.0100, L500.2500 ####[facility] [address] [place], [address] Absolute Neut 5.3 X10 3/uL Normal 2.0-7.7 [facility] Comment on above: Performed By: #### L 100.0100, L500.2500 ####[facility] [address] [place], [address] Basophils/100 WBC (Bld) 0.4 % Normal 0-1 [facility] Comment on above: Performed By: #### L 100.0100, L500.2500 ####[facility] [address] [place], [address] Eosinophils/100 WBC (Bld) 3.7 % Normal 0-5 [facility] Comment on above: Performed By: #### L 100.0100, L500.2500 ####[facility] [address] [place], [address] Erythrocyte distribution width (RBC) [Ratio] 13.2 % Normal 11.6-14.6 [facility] Comment on above: Performed By: #### L 100.0100, L500.2500 ####[facility] [address] [place], [address] Hematocrit (Bld) [Volume fraction] 45.2 % Normal 37-47 [facility] Comment on above: Performed By: #### L 100.0100, L500.2500 ####[facility] [address] [place], [address] Hemoglobin (Bld) [Mass/Vol] 15.2 g/dL High 12.0-15.0 [facility] Comment on above: Performed By: #### L 100.0100, L500.2500 ####[facility] [address] [place], [address] IG% 0.500 Normal 0.0-0.9 [facility] Comment on above: Result Comment: IG% - Immature Granulocytes (promyelocytes, myelocytes and metamyelocytes) > 1% indicates that a LEFT SHIFT is Present. Performed By: #### L 100.0100, L500.2500 ####[facility] [address] [place], [address] Lymphocytes/100 WBC (Bld) 14.1 % Low 19-41 [facility] Comment on above: Performed By: #### L 100.0100, L500.2500 ####[facility] [address] [place], [address] MCH (RBC) [Entitic mass] 32.0 pg Normal 27.0-32.0 [facility] Comment on above: Performed By: #### L 100.0100, L500.2500 ####[facility] [address] [place], [address] MCHC (RBC) [Mass/Vol] 33.6 g/dL Normal 32-36 [facility] Comment on above: Performed By: #### L 100.0100, L500.2500 ####[facility] [address] [place], [address] MCV (RBC) [Entitic vol] 95.2 fL Normal 81-99 [facility] Comment on above: Performed By: #### L 100.0100, L500.2500 ####[facility] [address] [place], [address] Monocytes/100 WBC (Bld) 12.7 % High 0-10 [facility] Comment on above: Performed By: #### L 100.0100, L500.2500 ####[facility] [address] [place], [address] Neutrophils/100 WBC (Bld) 68.6 % Normal 47-70 [facility] Comment on above: Performed By: #### L 100.0100, L500.2500 ####[facility] [address] [place], [address] Nucleated RBC (Bld) [#/Vol] 0 10*3/uL Normal 0-5 [facility] Comment on above: Performed By: #### L 100.0100, L500.2500 ####[facility] [address] [place], [address] Platelet mean volume (Bld) [Entitic vol] 9.2 fL Normal 6.2-12.0 [facility] Comment on above: Performed By: #### L 100.0100, L500.2500 ####[facility] [address] [place], [address] Platelets (Bld) [#/Vol] 272 10*3/uL Normal 150-450 [facility] Comment on above: Performed By: #### L 100.0100, L500.2500 ####[facility] [address] [place], [address] RBC (Bld) [#/Vol] 4.75 10*6/uL Normal 4.2-5.4 [facility] Comment on above: Performed By: #### L 100.0100, L500.2500 ####[facility] [address] [place], [address] RDW SD 46.5 fl High 35.1-43.9 [facility] Comment on above: Performed By: #### L 100.0100, L500.2500 ####[facility] [address] [place], [address] WBC (Bld) [#/Vol] 7.7 10*3/uL Normal 4.4-11.0 [facility] Comment on above: Performed By: #### L 100.0100, L500.2500 ####[facility] [address] [place], [address] Basic Metabolic Profile (BMP )on 03-10-2024 BUN/CRE 17.0 RATIO Normal 10-20 [facility] Comment on above: Performed By: #### L 500.2500, L100.0100 ####[facility] [address] [place], [address] CA,Total 8.9 mg/dL Normal 8.5-10.1 [facility] Comment on above: Performed By: #### L 500.2500, L100.0100 ####[facility] [address] [place], [address] Chloride [Moles/Vol] 104 mmol/L Normal 98-107 [facility] Comment on above: Performed By: #### L 500.2500, L100.0100 ####[facility] [address] [place], [address] CO2 [Moles/Vol] 23.0 mmol/L Normal 21.0-32.0 [facility] Comment on above: Performed By: #### L 500.2500, L100.0100 ####[facility] [address] [place], [address] Creatinine [Mass/Vol] 1.06 mg/dL High 0.55-1.02 [facility] Comment on above: Result Comment: The validity of the calculated GFR GFRAA in patients over 70 years has not been determined. Clinical correlation is essential. Performed By: #### L 500.2500, L100.0100 ####[facility] [address] [place], [address] ECRCL 41.12 ml/min Normal [facility] Comment on above: Performed By: #### L 500.2500, L100.0100 ####[facility] [address] [place], [address] EST GFR - AA 66 mL/min Normal >60 [facility] Comment on above: Result Comment: Afri can Nepalese GFR Calc Performed By: #### L 500.2500, L100.0100 ####[facility] [address] [place], [address] GAP 6 Normal 5-15 [facility] Comment on above: Performed By: #### L 500.2500, L100.0100 ####[facility] [address] [place], [address] GFR/1.73 sq M.predicted among non-blacks MDRD (S/P/Bld) [Vol rate/Area] 55 mL/min/{1.73_m2} Low >60 [facility] Comment on above: Result Comment: Non- GFR Calc Performed By: #### L 500.2500, L100.0100 ####[facility] [address] [place], [address] Glucose [Mass/Vol] 132 mg/dL High 74-106 [facility] Comment on above: Result Comment: Fast ing Glucose result greater than or equal to 126 mg/dL suggests DIABETES MELLITUS per A.D.A. criteria. Performed By: #### L 500.2500, L100.0100 ####[facility] [address] [place], [address] Potassium [Moles/Vol] 3.9 mmol/L Normal 3.5-5.1 [facility] Comment on above: Performed By: #### L 500.2500, L100.0100 ####[facility] [address] [place], [address] Sodium [Moles/Vol] 133 mmol/L Low 136-145 [facility] Comment on above: Performed By: #### L 500.2500, L100.0100 ####[facility] [address] [place], [address] Urea nitrogen [Mass/Vol] 18 mg/dL Normal 7-18 [facility] Comment on above: Performed By: #### L 500.2500, L100.0100 ####[facility] [address] [place], [address] CBC W/Diff, Automatedon 09-0 7-2023 Absolute Lymph 0.96 X10 3/uL Normal 0.83-4.51 [facility] Comment on above: Performed By: #### L 500.2500, L100.0100 ####[facility] [address] [place], [address] Absolute Neut 9.8 X10 3/uL High 2.0-7.7 [facility] Comment on above: Performed By: #### L 500.2500, L100.0100 ####[facility] [address] [place], [address] Basophils/100 WBC (Bld) 0.4 % Normal 0-1 [facility] Comment on above: Performed By: #### L 500.2500, L100.0100 ####[facility] [address] [place], [address] Eosinophils/100 WBC (Bld) 1.4 % Normal 0-5 [facility] Comment on above: Performed By: #### L 500.2500, L100.0100 ####[facility] [address] [place], [address] Erythrocyte distribution width (RBC) [Ratio] 13.2 % Normal 11.6-14.6 [facility] Comment on above: Performed By: #### L 500.2500, L100.0100 ####[facility] [address] [place], [address] Hematocrit (Bld) [Volume fraction] 49.3 % High 37-47 [facility] Comment on above: Performed By: #### L 500.2500, L100.0100 ####[facility] [address] [place], [address] Hemoglobin (Bld) [Mass/Vol] 16.2 g/dL High 12.0-15.0 [facility] Comment on above: Performed By: #### L 500.2500, L100.0100 ####[facility] [address] [place], [address] IG% 0.400 Normal 0.0-0.9 [facility] Comment on above: Result Comment: IG% - Immature Granulocytes (promyelocytes, myelocytes and metamyelocytes) > 1% indicates that a LEFT SHIFT is Present. Performed By: #### L 500.2500, L100.0100 ####[facility] [address] [place], [address] Lymphocytes/100 WBC (Bld) 7.9 % Low 19-41 [facility] Comment on above: Performed By: #### L 500.2500, L100.0100 ####[facility] [address] [place], [address] MCH (RBC) [Entitic mass] 31.1 pg Normal 27.0-32.0 [facility] Comment on above: Performed By: #### L 500.2500, L100.0100 ####[facility] [address] [place], [address] MCHC (RBC) [Mass/Vol] 32.9 g/dL Normal 32-36 [facility] Comment on above: Performed By: #### L 500.2500, L100.0100 ####[facility] [address] [place], [address] MCV (RBC) [Entitic vol] 94.6 fL Normal 81-99 [facility] Comment on above: Performed By: #### L 500.2500, L100.0100 ####[facility] [address] [place], [address] Monocytes/100 WBC (Bld) 8.9 % Normal 0-10 [facility] Comment on above: Performed By: #### L 500.2500, L100.0100 ####[facility] [address] [place], [address] Neutrophils/100 WBC (Bld) 81.0 % High 47-70 [facility] Comment on above: Performed By: #### L 500.2500, L100.0100 ####[facility] [address] [place], [address] Nucleated RBC (Bld) [#/Vol] 0 10*3/uL Normal 0-5 [facility] Comment on above: Performed By: #### L 500.2500, L100.0100 ####[facility] [address] [place], [address] Platelet mean volume (Bld) [Entitic vol] 9.5 fL Normal 6.2-12.0 [facility] Comment on above: Performed By: #### L 500.2500, L100.0100 ####[facility] [address] [place], [address] Platelets (Bld) [#/Vol] 203 10*3/uL Normal 150-450 [facility] Comment on above: Performed By: #### L 500.2500, L100.0100 ####[facility] [address] [place], [address] RBC (Bld) [#/Vol] 5.21 10*6/uL Normal 4.2-5.4 [facility] Comment on above: Performed By: #### L 500.2500, L100.0100 ####[facility] [address] [place], [address] RDW SD 46.5 fl High 35.1-43.9 [facility] Comment on above: Performed By: #### L 500.2500, L100.0100 ####[facility] [address] [place], [address] WBC (Bld) [#/Vol] 12.1 10*3/uL High 4.4-11.0 [facility] Comment on above: Performed By: #### L 500.2500, L100.0100 ####[facility] [address] [place], [address] Basic Metabolic Profile (BMP )on 03-09-2024 BUN/CRE 10.4 RATIO Normal 10-20 [facility] Comment on above: Performed By: #### L 501.2300, L100.0100, L500.2500 #### [facility] [address] [place], [address] CA,Total 9.2 mg/dL Normal 8.5-10.1 [facility] Comment on above: Performed By: #### L 501.2300, L100.0100, L500.2500 #### [facility] [address] [place], [address] Chloride [Moles/Vol] 101 mmol/L Normal 98-107 [facility] Comment on above: Performed By: #### L 501.2300, L100.0100, L500.2500 #### [facility] [address] [place], [address] CO2 [Moles/Vol] 24.0 mmol/L Normal 21.0-32.0 [facility] Comment on above: Performed By: #### L 501.2300, L100.0100, L500.2500 #### [facility] [address] [place], [address] Creatinine [Mass/Vol] 1.06 mg/dL High 0.55-1.02 [facility] Comment on above: Result Comment: The validity of the calculated GFR GFRAA in patients over 70 years has not been determined. Clinical correlation is essential. Performed By: #### L 501.2300, L100.0100, L500.2500 #### [facility] [address] [place], [address] ECRCL 41.22 ml/min Normal [facility] Comment on above: Performed By: #### L 501.2300, L100.0100, L500.2500 #### [facility] [address] [place], [address] EST GFR - AA 66 mL/min Normal >60 [facility] Comment on above: Result Comment: Afri can Nepalese GFR Calc Performed By: #### L 501.2300, L100.0100, L500.2500 #### [facility] [address] [place], [address] GAP 8 Normal 5-15 [facility] Comment on above: Performed By: #### L 501.2300, L100.0100, L500.2500 #### [facility] [address] [place], [address] GFR/1.73 sq M.predicted among non-blacks MDRD (S/P/Bld) [Vol rate/Area] 55 mL/min/{1.73_m2} Low >60 [facility] Comment on above: Result Comment: Non- GFR Calc Performed By: #### L 501.2300, L100.0100, L500.2500 #### [facility] [address] [place], [address] Glucose [Mass/Vol] 126 mg/dL High 74-106 [facility] Comment on above: Result Comment: Fast ing Glucose result greater than or equal to 126 mg/dL suggests DIABETES MELLITUS per A.D.A. criteria. Performed By: #### L 501.2300, L100.0100, L500.2500 #### [facility] [address] [place], [address] Potassium [Moles/Vol] 3.7 mmol/L Normal 3.5-5.1 [facility] Comment on above: Performed By: #### L 501.2300, L100.0100, L500.2500 #### [facility] [address] [place], [address] Sodium [Moles/Vol] 133 mmol/L Low 136-145 [facility] Comment on above: Performed By: #### L 501.2300, L100.0100, L500.2500 #### [facility] [address] [place], [address] Urea nitrogen [Mass/Vol] 11 mg/dL Normal 7-18 [facility] Comment on above: Performed By: #### L 501.2300, L100.0100, L500.2500 #### [facility] [address] [place], [address] CBC W/Diff, Automatedon 09-0 -2023 Absolute Lymph 1.75 X10 3/uL Normal 0.83-4.51 [facility] Comment on above: Performed By: #### L 501.2300, L100.0100, L500.2500 #### [facility] [address] [place], [address] Absolute Neut 10.8 X10 3/uL High 2.0-7.7 [facility] Comment on above: Performed By: #### L 501.2300, L100.0100, L500.2500 #### [facility] [address] [place], [address] Basophils/100 WBC (Bld) 0.6 % Normal 0-1 [facility] Comment on above: Performed By: #### L 501.2300, L100.0100, L500.2500 #### [facility] [address] [place], [address] Eosinophils/100 WBC (Bld) 0.6 % Normal 0-5 [facility] Comment on above: Performed By: #### L 501.2300, L100.0100, L500.2500 #### [facility] [address] [place], [address] Erythrocyte distribution width (RBC) [Ratio] 13.2 % Normal 11.6-14.6 [facility] Comment on above: Performed By: #### L 501.2300, L100.0100, L500.2500 #### [facility] [address] [place], [address] Hematocrit (Bld) [Volume fraction] 52.6 % High 37-47 [facility] Comment on above: Performed By: #### L 501.2300, L100.0100, L500.2500 #### [facility] [address] [place], [address] Hemoglobin (Bld) [Mass/Vol] 17.4 g/dL High 12.0-15.0 [facility] Comment on above: Performed By: #### L 501.2300, L100.0100, L500.2500 #### [facility] [address] [place], [address] IG% 0.400 Normal 0.0-0.9 [facility] Comment on above: Result Comment: IG% - Immature Granulocytes (promyelocytes, myelocytes and metamyelocytes) > 1% indicates that a LEFT SHIFT is Present. Performed By: #### L 501.2300, L100.0100, L500.2500 #### [facility] [address] [place], [address] Lymphocytes/100 WBC (Bld) 12.3 % Low 19-41 [facility] Comment on above: Performed By: #### L 501.2300, L100.0100, L500.2500 #### [facility] [address] [place], [address] MCH (RBC) [Entitic mass] 31.3 pg Normal 27.0-32.0 [facility] Comment on above: Performed By: #### L 501.2300, L100.0100, L500.2500 #### [facility] [address] [place], [address] MCHC (RBC) [Mass/Vol] 33.1 g/dL Normal 32-36 [facility] Comment on above: Performed By: #### L 501.2300, L100.0100, L500.2500 #### [facility] [address] [place], [address] MCV (RBC) [Entitic vol] 94.6 fL Normal 81-99 [facility] Comment on above: Performed By: #### L 501.2300, L100.0100, L500.2500 #### [facility] [address] [place], [address] Monocytes/100 WBC (Bld) 9.9 % Normal 0-10 [facility] Comment on above: Performed By: #### L 501.2300, L100.0100, L500.2500 #### [facility] [address] [place], [address] Neutrophils/100 WBC (Bld) 76.2 % High 47-70 [facility] Comment on above: Performed By: #### L 501.2300, L100.0100, L500.2500 #### [facility] [address] [place], [address] Nucleated RBC (Bld) [#/Vol] 0 10*3/uL Normal 0-5 [facility] Comment on above: Performed By: #### L 501.2300, L100.0100, L500.2500 #### [facility] [address] [place], [address] Platelet mean volume (Bld) [Entitic vol] 9.8 fL Normal 6.2-12.0 [facility] Comment on above: Performed By: #### L 501.2300, L100.0100, L500.2500 #### [facility] [address] [place], [address] Platelets (Bld) [#/Vol] 246 10*3/uL Normal 150-450 [facility] Comment on above: Performed By: #### L 501.2300, L100.0100, L500.2500 #### [facility] [address] [place], [address] RBC (Bld) [#/Vol] 5.56 10*6/uL High 4.2-5.4 [facility] Comment on above: Performed By: #### L 501.2300, L100.0100, L500.2500 #### [facility] [address] [place], [address] RDW SD 46.2 fl High 35.1-43.9 [facility] Comment on above: Performed By: #### L 501.2300, L100.0100, L500.2500 #### [facility] [address] [place], [address] WBC (Bld) [#/Vol] 14.2 10*3/uL High 4.4-11.0 [facility] Comment on above: Performed By: #### L 501.2300, L100.0100, L500.2500 #### [facility] [address] [place], [address] CORTISOL SERUMon 03-09-2024 CORTISOL 14.80 ug/dL Normal 3.44-22.45 [facility] Comment on above: Result Comment: Adul t (AM) 5.27 - 22.45 ug/dL Adult (PM) 3.44 - 16.76 ug/dL Performed By: #### L 509.6000 ####[facility] [address] [place], [address] Phosphoruson 03-09-2024 Phosphate [Mass/Vol] 2.4 mg/dL Low 2.5-4.9 [facility] Comment on above: Performed By: #### L 501.2300, L100.0100, L500.2500 #### [facility] [address] [place], [address] CBC W/Diff, Automatedon Absolute Lymph 1.69 X10 3/uL Normal 0.83-4.51 [facility] Comment on above: Performed By: #### L 501.9520, L100.0100, L500.4050 #### [facility] [address] [place], [address] Absolute Neut 8.1 X10 3/uL High 2.0-7.7 [facility] Comment on above: Performed By: #### L 501.9520, L100.0100, L500.4050 #### [facility] [address] [place], [address] Basophils/100 WBC (Bld) 0.6 % Normal 0-1 [facility] Comment on above: Performed By: #### L 501.9520, L100.0100, L500.4050 #### [facility] [address] [place], [address] Eosinophils/100 WBC (Bld) 1.1 % Normal 0-5 [facility] Comment on above: Performed By: #### L 501.9520, L100.0100, L500.4050 #### [facility] [address] [place], [address] Erythrocyte distribution width (RBC) [Ratio] 13.3 % Normal 11.6-14.6 [facility] Comment on above: Performed By: #### L 501.9520, L100.0100, L500.4050 #### [facility] [address] [place], [address] Hematocrit (Bld) [Volume fraction] 49.2 % High 37-47 [facility] Comment on above: Performed By: #### L 501.9520, L100.0100, L500.4050 #### [facility] [address] [place], [address] Hemoglobin (Bld) [Mass/Vol] 16.5 g/dL High 12.0-15.0 [facility] Comment on above: Performed By: #### L 501.9520, L100.0100, L500.4050 #### [facility] [address] [place], [address] IG% 0.500 Normal 0.0-0.9 [facility] Comment on above: Result Comment: IG% - Immature Granulocytes (promyelocytes, myelocytes and metamyelocytes) > 1% indicates that a LEFT SHIFT is Present. Performed By: #### L 501.9520, L100.0100, L500.4050 #### [facility] [address] [place], [address] Lymphocytes/100 WBC (Bld) 15.3 % Low 19-41 [facility] Comment on above: Performed By: #### L 501.9520, L100.0100, L500.4050 #### [facility] [address] [place], [address] MCH (RBC) [Entitic mass] 31.7 pg Normal 27.0-32.0 [facility] Comment on above: Performed By: #### L 501.9520, L100.0100, L500.4050 #### [facility] [address] [place], [address] MCHC (RBC) [Mass/Vol] 33.5 g/dL Normal 32-36 [facility] Comment on above: Performed By: #### L 501.9520, L100.0100, L500.4050 #### [facility] [address] [place], [address] MCV (RBC) [Entitic vol] 94.4 fL Normal 81-99 [facility] Comment on above: Performed By: #### L 501.9520, L100.0100, L500.4050 #### [facility] [address] [place], [address] Monocytes/100 WBC (Bld) 9.3 % Normal 0-10 [facility] Comment on above: Performed By: #### L 501.9520, L100.0100, L500.4050 #### [facility] [address] [place], [address] Neutrophils/100 WBC (Bld) 73.2 % High 47-70 [facility] Comment on above: Performed By: #### L 501.9520, L100.0100, L500.4050 #### [facility] [address] [place], [address] Nucleated RBC (Bld) [#/Vol] 0 10*3/uL Normal 0-5 [facility] Comment on above: Performed By: #### L 501.9520, L100.0100, L500.4050 #### [facility] [address] [place], [address] Platelet mean volume (Bld) [Entitic vol] 9.4 fL Normal 6.2-12.0 [facility] Comment on above: Performed By: #### L 501.9520, L100.0100, L500.4050 #### [facility] [address] [place], [address] Platelets (Bld) [#/Vol] 292 10*3/uL Normal 150-450 [facility] Comment on above: Performed By: #### L 501.9520, L100.0100, L500.4050 #### [facility] [address] [place], [address] RBC (Bld) [#/Vol] 5.21 10*6/uL Normal 4.2-5.4 [facility] Comment on above: Performed By: #### L 501.9520, L100.0100, L500.4050 #### [facility] [facility] [address] [place], [address] RDW SD 46.5 fl High 35.1-43.9 [facility] Comment on above: Performed By: #### L 501.9520, L100.0100, L500.4050 #### [facility] [address] [place], [address] WBC (Bld) [#/Vol] 11.0 10*3/uL Normal 4.4-11.0 [facility] Comment on above: Performed By: #### L 501.9520, L100.0100, L500.4050 #### [facility] [address] [place], [address] Comprehensive Metabolic Prof ilon 03-08-2024 Albumin [Mass/Vol] 3.3 g/dL Normal 3.2-5.0 [facility] Comment on above: Performed By: #### L 501.9520, L100.0100, L500.4050 #### [facility] [address] [place], [address] Albumin/Globulin [Mass ratio] 0.8 {ratio} Low 0.9-2.4 [facility] Comment on above: Performed By: #### L 501.9520, L100.0100, L500.4050 #### [facility] [address] [place], [address] ALK P 73 U/L Normal 45-117 [facility] Comment on above: Performed By: #### L 501.9520, L100.0100, L500.4050 #### [facility] [address] [place], [address] ALT [Catalytic activity/Vol] 22 U/L Normal 13-56 [facility] Comment on above: Performed By: #### L 501.9520, L100.0100, L500.4050 #### [facility] [address] [place], [address] AST [Catalytic activity/Vol] 26 U/L Normal 15-37 [facility] Comment on above: Performed By: #### L 501.9520, L100.0100, L500.4050 #### [facility] [address] [place], [address] Bilirubin [Mass/Vol] 0.60 mg/dL Normal 0.20-1.00 [facility] Comment on above: Result Comment: For patients on eltrombopag therapy, use of Dimension [place] TBIL is not recommended. Performed By: #### L 501.9520, L100.0100, L500.4050 #### [facility] [address] [place], [address] BUN/CRE 13.2 RATIO Normal 10-20 [facility] Comment on above: Performed By: #### L 501.9520, L100.0100, L500.4050 #### [facility] [address] [place], [address] CA,Total 8.5 mg/dL Normal 8.5-10.1 [facility] Comment on above: Performed By: #### L 501.9520, L100.0100, L500.4050 #### [facility] [address] [place], [address] Chloride [Moles/Vol] 106 mmol/L Normal 98-107 [facility] Comment on above: Performed By: #### L 501.9520, L100.0100, L500.4050 #### [facility] [address] [place], [address] CO2 [Moles/Vol] 24.0 mmol/L Normal 21.0-32.0 [facility] Comment on above: Performed By: #### L 501.9520, L100.0100, L500.4050 #### [facility] [address] [place], [address] Creatinine [Mass/Vol] 1.44 mg/dL High 0.55-1.02 [facility] Comment on above: Result Comment: The validity of the calculated GFR GFRAA in patients over 70 years has not been determined. Clinical correlation is essential. Performed By: #### L 501.9520, L100.0100, L500.4050 #### [facility] [address] [place], [address] ECRCL 30.56 ml/min Normal [facility] Comment on above: Performed By: #### L 501.9520, L100.0100, L500.4050 #### [facility] [address] [place], [address] EST GFR - AA 47 mL/min Low >60 [facility] Comment on above: Result Comment: Afri can Nepalese GFR Calc Performed By: #### L 501.9520, L100.0100, L500.4050 #### [facility] [address] [place], [address] GAP 7 Normal 5-15 [facility] Comment on above: Performed By: #### L 501.9520, L100.0100, L500.4050 #### [facility] [address] [place], [address] GFR/1.73 sq M.predicted among non-blacks MDRD (S/P/Bld) [Vol rate/Area] 39 mL/min/{1.73_m2} Low >60 [facility] Comment on above: Result Comment: Non- GFR Calc Performed By: #### L 501.9520, L100.0100, L500.4050 #### [facility] [address] [place], [address] Globulin (S) [Mass/Vol] 3.9 g/dL Normal 2.2-4.2 [facility] Comment on above: Performed By: #### L 501.9520, L100.0100, L500.4050 #### [facility] [address] [place], [address] Glucose [Mass/Vol] 134 mg/dL High 74-106 [facility] Comment on above: Result Comment: Fast ing Glucose result greater than or equal to 126 mg/dL suggests DIABETES MELLITUS per A.D.A. criteria. Performed By: #### L 501.9520, L100.0100, L500.4050 #### [facility] [address] [place], [address] Potassium [Moles/Vol] 3.7 mmol/L Normal 3.5-5.1 [facility] Comment on above: Performed By: #### L 501.9520, L100.0100, L500.4050 #### [facility] [address] [place], [address] Sodium [Moles/Vol] 137 mmol/L Normal 136-145 [facility] Comment on above: Performed By: #### L 501.9520, L100.0100, L500.4050 #### [facility] [address] [place], [address] T PROT 7.2 g/dL Normal 6.4-8.2 [facility] Comment on above: Performed By: #### L 501.9520, L100.0100, L500.4050 #### [facility] [address] [place], [address] Urea nitrogen [Mass/Vol] 19 mg/dL High 7-18 [facility] Comment on above: Performed By: #### L 501.9520, L100.0100, L500.4050 #### [facility] [address] [place], [address] Consultation - Orthopedicson 03-08-2024 Consultation - Orthopedics [facility] System Medical Records Department [address] [place] [address] Consultation - Orthopedics 03/08/24 1159 MR#: [id number] Acct: [id number] Name: MAUREEN ANSARI ALYSHA Rep #: [id number] : [id number] 68 From: Jaziel Lin DO PCP: Care Physician,No Primary Status:ADM IN Location: [facility] [place] [id number] HPI Consult Data Date of Consult: 03/08/24 HPI Narrative Reason for Consultation: Right tibial plateau fx HPI Narrative: MAUREEN BARRON, is a 68-year-old female smoker who sustained a fall from approximately 3 feet on a stepladder when she was trying to hang a curtain anders yesterday 03/07/24. She states the brunt of the fall force was sustained through her left leg and noted immediate severe left knee pain. She was unable to bear weight following injury. She denied any head injury or loss consciousness. Denies any other pain. She does have a history of left hip fracture 4 years ago in [place]. She denies any numbness or tingling. Patient's past medical history is significant for tobacco use, hypertension, hyperlipidemia, hypothyroidism, carotid artery disease status post CEA. I was contacted by the emergency department and I recommended a knee immobilizer nonweightbearing of the left knee with planned outpatient follow-up after x-rays revealed a split depression lateral tibial plateau fracture. Patient was unable to mobilize well in the emergency department and was placed on observation by the hospitalist for physical and Occupational Therapy possible placement. [facility] Medical History CKD (chronic kidney disease) Cannabis use disorder HLD (hyperlipidemia) Tobacco use Carotid arterial disease Hypertension Home Medications ???Medication ???Instructions ???Recorded ???Last Taken ???Type amlodipine 10 mg tablet 10 mg PO DAILY htn 03/07/24 Unknown History aspirin 81 mg capsule 81 mg PO DAILY blood thinner 03/07/24 Unknown History atorvastatin 80 mg tablet 80 mg PO DAILY hld 03/07/24 Unknown History levothyroxine 100 mcg tablet 100 mcg PO DAILY thyroid 03/07/24 Unknown History Allergy/AdvReac Type Severity Reaction Status Date / Time No Known Allergies Allergy Verified 03/07/24 19:25 Family History (Updated 03/08/24 @ 00:[address] Tere Brown MD) Mother Hypertension Pulmonary fibrosis Father Hypertension Heart disease Diabetes Surgical History (Updated 03/08/24 @ 00:[address] Tere Brown MD) History of CEA (carotid endarterectomy) History of hip surgery Social History (Updated 03/08/24 @ 00:[address] Tere Brown MD) household members: family Smoking Status: Current every day smoker tobacco type: cigarettes alcohol intake: never substance use type: marijuana Vital Signs Vital Signs Vital Signs: 03/07/24 19:24 03/07/24 19:24 03/07/24 20:24 Temperature 98.3 F Temperature Source Temporal Pulse Rate 81 75 Respiratory Rate 16 18 Respiratory Effort Normal Non-Labored Respiratory Depth Normal Respiratory Pattern Normal Blood Pressure 172/100 H 200/102 H Blood Pressure Mean 124 134 Blood Pressure Source Blood Pressure Position Blood Pressure Location Pulse Ox 98 98 Oxygen Delivery Method Room Air Room Air Room Air 03/07/24 21:00 03/07/24 21:07 03/07/24 22:00 Temperature 97.8 F Temperature Source Pulse Rate 85 85 81 Respiratory Rate 16 16 18 Respiratory Effort Respiratory Depth Respiratory Pattern Blood Pressure 176/97 H 176/97 H 155/96 H Blood Pressure Mean 123 123 115 Blood Pressure Source Blood Pressure Position Blood Pressure Location Pulse Ox 97 95 97 Oxygen Delivery Method Room Air Room Air 03/07/24 23:03 03/07/24 23:21 03/08/24 02:26 Temperature 97.6 F L 98.3 F Temperature Source Oral Oral Pulse Rate 74 75 Respiratory Rate 15 17 15 Respiratory Effort Normal Non-Labored Respiratory Depth Normal Respiratory Pattern Normal Blood Pressure 173/87 H 150/92 H Blood Pressure Mean 115 111 Blood Pressure Source Monitor Monitor Blood Pressure Position Semi-Fowlers Semi-Fowlers Blood Pressure Location Right Arm Right Arm Pulse Ox 96 95 Oxygen Delivery Method Room Air Room Air Room Air 03/08/24 05:03 03/08/24 07:48 03/08/24 09:22 Temperature 97.7 F L Temperature Source Oral Pulse Rate 77 Respiratory Rate 18 Respiratory Effort Normal Non-Labored Respiratory Depth Normal Respiratory Pattern Normal Blood Pressure 168/77 H Blood Pressure Mean 107 Blood Pressure Source Monitor Blood Pressure Position Semi-Fowlers Blood Pressure Location Right Arm Pulse Ox 93 Oxygen Delivery Method Room Air Room Air Room Air 03/08/24 09:35 Temperature (more content not included)... Normal [facility] Magnesiumon 03-08-2024 Magnesium [Mass/Vol] 2.1 mg/dL Normal 1.6-2.6 [facility] Comment on above: Order Comment: Comme nts: may add to ED labs Performed By: #### L 501.5200 #### [facility] [address] [place], [address] Phosphoruson 03-08-2024 Phosphate [Mass/Vol] 2.8 mg/dL Normal 2.5-4.9 [facility] Comment on above: Performed By: #### L 501.2300 ####[facility] [address] [place], [address] T4 Free Directon 03-08-2024 T4 FREE DIRECT 1.05 ng/dL Normal 0.76-1.46 [facility] Comment on above: Performed By: #### L 506.0400 ####[facility] [address] [place], [address] Thyroid Stim Hormone (TSH)on 03-08-2024 TSH 41.400 uIU/mL High 0.358-3.740 [facility] Comment on above: Performed By: #### L 501.9520, L100.0100, L500.4050 #### [facility] [address] [place], [address] 12 Lead EKGon 03-07-2024 12 Lead EKG [facility] Cardiovascular Services [address] [place] [address] 12 Lead EKG 03/07/24 2152 MR#: [id number] Acct: [id number] Name: MAUREEN ANSARI ALYSHA Rep #: [id number] : 1955 68 From: Sedrick Alcaraz MD Attending Dr: Dr. Isaias Rincon MD Status: ADM IN Ordering Dr: Isela Isaac DO Date: 03/07/24 Location: [facility] [place] Sex: F C Admitted: 03/07/24 Test Reason : Blood Pressure : / mmHG Vent. Rate : 072 BPM Atrial Rate : 072 BPM P-R Int : 118 ms QRS Dur : 094 ms QT Int : 444 ms P-R-T Axes : 063 -40 031 degrees QTc Int : 486 ms Normal sinus rhythm Left axis deviation Minimal voltage criteria for LVH, may be normal variant ( Jagjit product ) ST T wave abnormality, consider anterolateral ischemia Abnormal ECG Confirmed by SEDRICK ALCARAZ MD ([id number]), fan mail editor MARIBEL DE SANTIAGO ([id number]) on 03/08/2024 1:51:51 PM Referred By: Confirmed By:SEDRICK ALCARAZ MD 03/08/24 1351 Date Sedrick Alcaraz MD CC: Dr. Isaias Rincon MD; Dr. Isela Isaac DO; No Primary Care Physician Signed Normal [facility] Basic Metabolic Profile (BMP )on 03-07-2024 BUN/CRE 13.0 RATIO Normal 10-20 [facility] Comment on above: Performed By: #### L 500.2500, L100.0100 ####[facility] [address] [place], [address] CA,Total 9.2 mg/dL Normal 8.5-10.1 [facility] Comment on above: Performed By: #### L 500.2500, L100.0100 ####[facility] [address] [place], [address] Chloride [Moles/Vol] 104 mmol/L Normal 98-107 [facility] Comment on above: Performed By: #### L 500.2500, L100.0100 ####[facility] [address] [place], [address] CO2 [Moles/Vol] 27.0 mmol/L Normal 21.0-32.0 [facility] Comment on above: Performed By: #### L 500.2500, L100.0100 ####[facility] [address] [place], [address] Creatinine [Mass/Vol] 1.61 mg/dL High 0.55-1.02 [facility] Comment on above: Result Comment: The validity of the calculated GFR GFRAA in patients over 70 years has not been determined. Clinical correlation is essential. Performed By: #### L 500.2500, L100.0100 ####[facility] [address] [place], [address] ECRCL 24.36 ml/min Normal [facility] Comment on above: Performed By: #### L 500.2500, L100.0100 ####[facility] [address] [place], [address] EST GFR - AA 41 mL/min Low >60 [facility] Comment on above: Result Comment: Afri can Nepalese GFR Calc Performed By: #### L 500.2500, L100.0100 ####[facility] [address] [place], [address] GAP 7 Normal 5-15 [facility] Comment on above: Performed By: #### L 500.2500, L100.0100 ####[facility] [address] [place], [address] GFR/1.73 sq M.predicted among non-blacks MDRD (S/P/Bld) [Vol rate/Area] 34 mL/min/{1.73_m2} Low >60 [facility] Comment on above: Result Comment: Non- GFR Calc Performed By: #### L 500.2500, L100.0100 ####[facility] [address] [place], [address] Glucose [Mass/Vol] 110 mg/dL High 74-106 [facility] Comment on above: Result Comment: Fast ing Glucose result from 100 to 125 mg/dL suggests IMPAIRED HOMEOSTASIS per A.D.A. criteria. Performed By: #### L 500.2500, L100.0100 ####[facility] [address] [place], [address] Potassium [Moles/Vol] 3.0 mmol/L Low 3.5-5.1 [facility] Comment on above: Performed By: #### L 500.2500, L100.0100 ####[facility] [address] [place], [address] Sodium [Moles/Vol] 138 mmol/L Normal 136-145 [facility] Comment on above: Performed By: #### L 500.2500, L100.0100 ####[facility] [address] [place], [address] Urea nitrogen [Mass/Vol] 21 mg/dL High 7-18 [facility] Comment on above: Performed By: #### L 500.2500, L100.0100 ####[facility] [address] [place], [address] CBC W/Diff, Automatedon 09-0 4-2023 Absolute Lymph 1.44 X10 3/uL Normal 0.83-4.51 [facility] Comment on above: Performed By: #### L 500.2500, L100.0100 ####[facility] [address] [place], [address] Absolute Neut 6.8 X10 3/uL Normal 2.0-7.7 [facility] Comment on above: Performed By: #### L 500.2500, L100.0100 ####[facility] [address] [place], [address] Basophils/100 WBC (Bld) 1.1 % High 0-1 [facility] Comment on above: Performed By: #### L 500.2500, L100.0100 ####[facility] [address] [place], [address] Eosinophils/100 WBC (Bld) 1.3 % Normal 0-5 [facility] Comment on above: Performed By: #### L 500.2500, L100.0100 ####[facility] [address] [place], [address] Erythrocyte distribution width (RBC) [Ratio] 13.3 % Normal 11.6-14.6 [facility] Comment on above: Performed By: #### L 500.2500, L100.0100 ####[facility] [address] [place], [address] Hematocrit (Bld) [Volume fraction] 51.2 % High 37-47 [facility] Comment on above: Performed By: #### L 500.2500, L100.0100 ####[facility] [address] [place], [address] Hemoglobin (Bld) [Mass/Vol] 17.1 g/dL High 12.0-15.0 [facility] Comment on above: Performed By: #### L 500.2500, L100.0100 ####[facility] [address] [place], [address] IG% 0.300 Normal 0.0-0.9 [facility] Comment on above: Result Comment: IG% - Immature Granulocytes (promyelocytes, myelocytes and metamyelocytes) > 1% indicates that a LEFT SHIFT is Present. Performed By: #### L 500.2500, L100.0100 ####[facility] [address] [place], [address] Lymphocytes/100 WBC (Bld) 15.7 % Low 19-41 [facility] Comment on above: Performed By: #### L 500.2500, L100.0100 ####[facility] [address] [place], [address] MCH (RBC) [Entitic mass] 31.3 pg Normal 27.0-32.0 [facility] Comment on above: Performed By: #### L 500.2500, L100.0100 ####[facility] [address] [place], [address] MCHC (RBC) [Mass/Vol] 33.4 g/dL Normal 32-36 [facility] Comment on above: Performed By: #### L 500.2500, L100.0100 ####[facility] [address] [place], [address] MCV (RBC) [Entitic vol] 93.8 fL Normal 81-99 [facility] Comment on above: Performed By: #### L 500.2500, L100.0100 ####[facility] [address] [place], [address] Monocytes/100 WBC (Bld) 8.1 % Normal 0-10 [facility] Comment on above: Performed By: #### L 500.2500, L100.0100 ####[facility] [address] [place], [address] Neutrophils/100 WBC (Bld) 73.5 % High 47-70 [facility] Comment on above: Performed By: #### L 500.2500, L100.0100 ####[facility] [address] [place], [address] Nucleated RBC (Bld) [#/Vol] 0 10*3/uL Normal 0-5 [facility] Comment on above: Performed By: #### L 500.2500, L100.0100 ####[facility] [address] [place], [address] Platelet mean volume (Bld) [Entitic vol] 8.9 fL Normal 6.2-12.0 [facility] Comment on above: Performed By: #### L 500.2500, L100.0100 ####[facility] [address] [place], [address] Platelets (Bld) [#/Vol] 311 10*3/uL Normal 150-450 [facility] Comment on above: Performed By: #### L 500.2500, L100.0100 ####[facility] [address] [place], [address] RBC (Bld) [#/Vol] 5.46 10*6/uL High 4.2-5.4 [facility] Comment on above: Performed By: #### L 500.2500, L100.0100 ####[facility] [address] [place], [address] RDW SD 45.8 fl High 35.1-43.9 [facility] Comment on above: Performed By: #### L 500.2500, L100.0100 ####[facility] [address] [place], [address] WBC (Bld) [#/Vol] 9.2 10*3/uL Normal 4.4-11.0 [facility] Comment on above: Performed By: #### L 500.2500, L100.0100 ####[facility] [address] [place], [address] Emergency Department Summary on 03-07-2024 Emergency Department Summary [facility] System Medical Records Department [address] [place] [address] Emergency Department Summary 03/07/24 MR#: [id number] Acct: [id number] Name: MAUREEN ANSARI ALYSHA Rep #: [id number] : 1955 68 From: Isela Isaac DO PCP: Care Physician,No Primary Status:ADM IN Location: [address] History of Present Illness Chief Complaint: Fall Detail of Chief Complaint: Fall with left leg injury Informant: patient Narrative Narrative: Patient presents to the emergency department via EMS from home after falling off of about a 3 foot ladder while she was trying to hang up some curtain anders holders. Patient states that she pushed off a dresser so she would not hit her head and fell with her weight on her left leg injuring it. Denies striking her head or loss of consciousness. Denies neck pain. Nuys chest pain or shortness of breath. Denies any other complaints. Patient had surgery on her left hip after a fracture in [place] 4 years ago. She does not have a primary care physician. [facility] Medical History (Updated 03/07/24 @ 21:[address] Isela Isaac, ) Hip fracture, left Varicose vein of leg Carotid arterial disease Hypertension Home Medications ???Medication ???Instructions ???Recorded ???Last Taken ???Type amlodipine 10 mg tablet 10 mg PO DAILY 03/07/24 Unknown History aspirin 81 mg capsule 81 mg PO DAILY 03/07/24 Unknown History atorvastatin 80 mg tablet 80 mg PO DAILY 03/07/24 Unknown History levothyroxine 100 mcg tablet 100 mcg PO DAILY 03/07/24 Unknown History Allergy/AdvReac Type Severity Reaction Status Date / Time No Known Allergies Allergy Verified 03/07/24 19:25 Social History Smoking Status: Current every day smoker tobacco type: cigarettes ROS ROS ED Review of Systems ROS Unobtainable: other Constitutional Constitutional ED: Reports lethargy; Denies chills, fever(s), sweats or weight loss Eyes Eyes: Denies blurry vision, change in vision or diplopia ENT ENT ED: Denies rhinorrhea or sore throat Cardiovascular Cardiovascular: Denies chest pain, orthopnea or racing heartbeat Respiratory/Chest Respiratory/Chest: Denies cough, dyspnea, dyspnea on exertion, orthopnea or sputum Gastrointestinal Gastrointestinal: Denies abdominal pain, diarrhea, nausea or vomiting Genitourinary Genitourinary ED: Denies dysuria, hematuria or urinary frequency Musculoskeletal Musculoskeletal: Reports other Details: Left leg pain/injury ; Denies arthralgias, back pain, myalgias or neck pain Integumentary Denies abscess, Abrasions or rash Neurologic Neurologic: Denies headache(s) or weakness Psychiatric Psychiatric: Denies anxiety, depression or suicidal thoughts Endocrine Endocrinology: Denies polydipsia, polyphagia or polyuria Hematologic/Lymphatic Hematologic/Lymphatic: Denies easy bleeding, easy bruising or lymphadenopathy Allergic/Immunologic Allergic/Immunologic ED: Denies mouth swelling, tongue swelling or urticaria EXAM Physical Exam Const Vital Signs: 03/07/24 19:24 03/07/24 19:24 03/07/24 20:24 Temperature 98.3 F Temperature Source Temporal Pulse Rate 81 75 Respiratory Rate 16 18 Respiratory Effort Normal Non-Labored Respiratory Depth Normal Respiratory Pattern Normal Blood Pressure 172/100 H 200/102 H Blood Pressure Mean 124 134 Pulse Ox 98 98 Oxygen Delivery Method Room Air Room Air Room Air 03/07/24 21:00 03/07/24 21:07 Temperature 97.8 F Temperature Source Pulse Rate 85 85 Respiratory Rate 16 16 Respiratory Effort Respiratory Depth Respiratory Pattern Blood Pressure 176/97 H 176/97 H Blood Pressure Mean 123 123 Pulse Ox 97 95 Oxygen Delivery Method Room Air Positive well nourished and well developed General Appearance ED: well developed and NAD HEENT Reports TM's clear and moist mucous membranes normocephalic and atraumatic; Negative for trauma or tenderness Tympanic Membrane ED: Yes TM's clear Eyes PERRL and EOMs intact bilaterally General Eye ED: Negative for pale conjunctiva or scleral icterus Neck no lymphadenopathy, supple and no JVD General: Negative for tenderness Chest Wall inspection of chest normal and palpation of chest normal Chest: Negative for tenderness Resp normal respiratory effort and clear to auscultation bilaterally Effort and Inspection: Negative for respiratory distress or pain with movement Auscultation: Negative for rhonchi, wheezes or diminished lung sounds Cardio regular rate, regular rhythm, S1 normal heart sound, S2 normal heart sound and no murmurs Peripheral Pulses: pulses 2+ throughout GI normal to inspection, nondistended, normoactive bowel sounds, soft to palpation, non-tender, non- distended and no masses Back/Spine no CVA tenderness and no t (more content not included)... Normal [facility] H AND P Exam - Hospitaliston 03-07-2024 H&P Exam - Hospitalist [facility] Medical Records Department [address] [place] [address] H P Exam - Hospitalist 03/07/242121 MR#: [id number] Acct: [id number] Name: MAUREEN ANSARI ALYSHA Rep #: [id number] : 1955 68 From: Tere Brown MD PCP: Care Physician,No Primary Status:ADM IN [id number] HPI - General General Date of Admission: 03/07/24 Date of Service: 03/07/24 Chief Complaint: Fall, left leg pain. HPI Narrative The patient is a 68 y/o F w/ PMHx: Tobacco use, HTN, HLD, Hypothyroidism, Carotid disease status post right CEA who presents to the [facility] ED on 03/07/24 with history of unfortunately falling off approximately 3 foot ladder while trying to hang a curtain rods reportedly pushing off of the dresser so that she would not hit her head with her weight unfortunately landing primarily on her left leg with no head trauma or loss of consciousness however given ongoing persistent pain prompted ED evaluation. She does report previous history of surgery on her left hip after a fracture remotely 4 years ago in [place]. She denies having any primary care physician and does not take any medications. Patient reports discomfort currently at rest following morphine 4-5 out of 10 in severity of a previous 10 out of 10 especially with any movement, aching throbbing and sharp at the same time. Workup in the ED included T97.8, heart rate 85, BP 176/97, respiratory rate 16, 95% room air, plain film of the left knee with a comminuted intra-articular fracture of the lateral tibial plateau with moderate articular surface incongruity with the fracture extending to the medial aspect of the medial tibial plateau as well, lateral hemarthroses, apparently comminuted fracture of the proximal fibula, plain film of the left tibia and fibula confirming this as well. ED discussed case with Dr. Lin. Discussed presentation with ED physician and EKG as well as baseline labs were obtained with noted potassium 3.0, BUN/creatinine 21/1.61, GFR 34 with no clear comparisons unfortunately. [facility] Medical History CKD (chronic kidney disease) Cannabis use disorder HLD (hyperlipidemia) Tobacco use Carotid arterial disease Hypertension Home Medications ???Medication ???Instructions ???Recorded ???Last Taken ???Type amlodipine 10 mg tablet 10 mg PO DAILY htn 03/07/24 Unknown History aspirin 81 mg capsule 81 mg PO DAILY blood thinner 03/07/24 Unknown History atorvastatin 80 mg tablet 80 mg PO DAILY hld 03/07/24 Unknown History levothyroxine 100 mcg tablet 100 mcg PO DAILY thyroid 03/07/24 Unknown History Allergy/AdvReac Type Severity Reaction Status Date / Time No Known Allergies Allergy Verified 03/07/24 19:25 Family History (Updated 03/08/24 @ 00:[address] Tere Brown MD) Mother Hypertension Pulmonary fibrosis Father Hypertension Heart disease Diabetes Surgical History (Updated 03/08/24 @ 00:[address] Tere Brown MD) History of CEA (carotid endarterectomy) History of hip surgery Social History (Updated 03/08/24 @ 00:[address] Tere Brown MD) household members: family Smoking Status: Current every day smoker tobacco type: cigarettes alcohol intake: never substance use type: marijuana ROS ROS Narrative Admission Review of Systems: CONSTITUTIONAL: No weight loss, fever, chills, + weakness or fatigue. HEENT: Eyes: No visual loss, blurred vision, double vision or yellow sclerae. Ears, Nose, Throat: No hearing loss, sneezing, congestion, runny nose or sore throat. SKIN: No rash or itching, lesions, wounds except + occasional abrasion, ecchymoses. CARDIOVASCULAR: No chest pain, chest pressure or chest discomfort, palpitations, edema, orthopnea, syncopal events. RESPIRATORY: No shortness of breath, cough or sputum, wheezing, hemoptysis. GASTROINTESTINAL: + anorexia, nausea. No vomiting or diarrhea, abdominal pain, melena, BRBPR. GENITOURINARY: No dysuria, frequency, urgency or retention. NEUROLOGICAL: No headache, dizziness, syncope, paralysis, ataxia, numbness or tingling in the extremities, focal weakness, change in bowel or bladder control, seizure. MUSCULOSKELETAL: + muscle, back pain, joint pain or stiffness. HEMATOLOGIC: No anemia, bleeding or bruising. LYMPHATICS: No enlarged nodes. No history of splenectomy. PSYCHIATRIC: No history of depression or anxiety. ENDOCRINOLOGIC: No reports of sweating, cold or heat intolerance. No polyuria or polydipsia. ALLERGIES: No history of asthma, hives, eczema or rhinitis. Vital Signs Vital Signs Vital Signs: 03/07/24 19:24 03/07/24 19:24 03/07/24 20:24 Temperature 98.3 F Temperature Source Temporal Pulse Rate 81 75 Respiratory Rate 16 18 Respiratory Effort Normal Non-Labored Respiratory Depth Normal Respiratory (more content not included)... Normal [facility] Knee 1 or 2 Viewson 03-07-20 Knee 1 or 2 Views [facility] Imaging Services [address] [place] [address] Knee 1 or 2 Views MR#: [id number] Acct: [id number] Name: MAUREEN BARRON Rep #: [id number] : 1955 F 68 From: Oral grimaldo DO PCP: Care Physician,No Primary Status: PRE ER Study: Knee 1 or 2 Views Date of Exam: 03/07/24 Exam# [id number] Ordering Dr: Isela Isaac DO [id number] EXAM: XR LEFT KNEE, 1 OR 2 VIEWS CLINICAL INDICATION: injury pain. TECHNIQUE: Frontal and/or lateral views of the left knee. COMPARISON: Leg on the same date. FINDINGS: BONES/JOINTS: Comminuted intra-articular fracture of the lateral tibial plateau with moderate articular surface incongruity. Fracture appears view extending to the median aspect of the medial tibial plateau as well. Lateral hemarthrosis. Apparently comminuted fracture of the proximal fibula. No sclerotic or destructive changes observed. SOFT TISSUES: Diffuse periarticular soft tissue swelling. No radiopaque foreign body. RAD/Knee 1 or 2 Views IMPRESSION: 1. Comminuted intra-articular fracture of the lateral tibial plateau with moderate articular surface incongruity. Fracture appears view extending to the median aspect of the medial tibial plateau as well. 2. Lateral hemarthrosis. 3. Apparently comminuted fracture of the proximal fibula. Electronically Signed: Oral Dennison DO at 20:33 EDT , CC: Dr. Isela Isaac DO; No Primary Care Physician Airway Traffic Controller: Signed Normal [facility] Tibia Fibula 2 Viewson 03-07 Tibia Fibula 2 Views [facility] Imaging Services [address], [place] [id number] Tibia Fibula 2 Views MR#: [id number] Acct: [id number] Name: MAUREEN BARRON Rep #: [id number] : 1955 F 68 From: Oral grimaldo DO PCP: Care Physician,No Primary Status: PRE ER Study: Tibia Fibula 2 Views Date of Exam: 03/07/24 Exam# [id number] Ordering Dr: Isela Isaac DO [id number] EXAM: XR LEFT TIBIA AND FIBULA, 2 VIEWS CLINICAL INDICATION: injury pain. TECHNIQUE: Frontal and lateral views of the left tibia and fibula. COMPARISON: Knee radiograph on the same date. FINDINGS: BONES/JOINTS: Comminuted intra-articular fracture of the lateral tibial plateau with moderate articular surface incongruity. Fracture appears view extending to the median aspect of the medial tibial plateau as well. Lateral hemarthrosis. Apparently comminuted fracture of the proximal fibula. No sclerotic or destructive changes observed. SOFT TISSUES: Diffuse periarticular soft tissue swelling. No radiopaque foreign body. RAD/Tibia Fibula 2 Views IMPRESSION: 1. Comminuted intra-articular fracture of the lateral tibial plateau with moderate articular surface incongruity. Fracture appears view extending to the median aspect of the medial tibial plateau as well. 2. Lateral hemarthrosis. 3. Apparently comminuted fracture of the proximal fibula. Electronically Signed: Oral Dennison DO at 20:32 EDT , CC: Dr. Isela Isaac, ; No Primary Care Physician Airway Traffic Controller: Signed Normal [facility] Vital Signs Date Time Vital Sign Value Performing Clinician Faci lity 09-25-2024 09:28-0400 Diastolic blood pressure 78 mm[Hg] Argenis Nagy DO Work Phone: [facility] 09-25-2024 09:28-0400 Heart rate 83 /min Argenis Nagy DO Work Phone: [facility] 09-25-2024 09:28-0400 SaO2% (BldA) [Mass fraction] 96 % Argenis Nagy DO Work Phone: [facility] 09-25-2024 09:28-0400 Systolic blood pressure 157 mm[Hg] Argenis Nagy DO Work Phone: [facility] 07-31-2024 08:58-0500 Diastolic blood pressure 84 mm[Hg] Argenis Nagy DO Work Phone: [facility] 07-31-2024 08:58-0500 Systolic blood pressure 156 mm[Hg] Argenis Nagy DO Work Phone: [facility] 07-31-2024 08:50-0500 Heart rate 80 /min Argenis Nagy DO Work Phone: [facility] 07-31-2024 08:50-0500 SaO2% (BldA) [Mass fraction] 95 % Argenis Nagy DO Work Phone: [facility] 06-25-2024 13:23-0500 Body height 152.4 cm Marianela Sheets DO Work Phone: [facility] 06-25-2024 13:23-0500 Body mass index (BMI) [Ratio] 23.24 kg/m2 Marianela Sheets DO Work Phone: [facility] 06-25-2024 13:23-0500 Body temperature 97.7 [degF] Marianela Sheets DO Work Phone: [facility] 06-25-2024 13:23-0500 Body weight 53.98 kg Marianela Sheets DO Work Phone: [facility] 06-25-2024 13:23-0500 Diastolic blood pressure 72 mm[Hg] Marianela Sheets DO Work Phone: [facility] 06-25-2024 13:23-0500 Heart rate 58 /min Marianela Sheets DO Work Phone: [facility] 06-25-2024 13:23-0500 Respiratory rate 16 /min Marianela Sheets DO Work Phone: [facility] 06-25-2024 13:23-0500 SaO2% (BldA) [Mass fraction] 98 % Marianela Sheets DO Work Phone: [facility] 06-25-2024 13:23-0500 Systolic blood pressure 118 mm[Hg] Marianela Sheets DO Work Phone: [facility] Encounters Encounter Date Encounter Type Care Provider Facility Start: 12-03-2024 End: 12-03-2024 ambulatory MARIANELA EDWARDS Facility:[facility] Start: 11-23-2024 End: 11-27-2024 Refill Argenis Nagy DO Work Phone: Vascular Surgery Comment on above: Refill Request Start: 11-19-2024 End: 11-19-2024 ambulatory Brayden Underwood Facility:[facility] Start: 11-16-2024 End: 11-16-2024 Telephone encounter Marianela C Sheets DO Work Phone: [facility] Comment on above: Lab Orders Start: 11-08-2024 End: 11-08-2024 ambulatory Marianela C Sheets DO Work Phone: [facility] Comment on above: High blood pressure Start: 11-07-2024 End: 11-08-2024 Telephone encounter Marianela C Sheets DO Work Phone: [facility] Comment on above: Patient Update Start: 11-06-2024 End: 11-06-2024 ambulatory ARGENIS NAGY Facility:[facility] Start: 10-30-2024 End: 11-07-2024 Follow-up encounter Marianela C Sheets DO Work Phone: [facility] Start: 10-19-2024 ambulatory UNKNOWN PROVIDER Facili ty:[facility] Start: 10-19-2024 End: 10-19-2024 Subsequent hospital visit by physician [facility] Radiology Comment on above: Peripheral vascular disease [I73.9] Start: 10-18-2024 End: 10-18-2024 ambulatory [facility] Facility[facility] Start: 10-03-2024 End: 12-03-2024 Follow-up encounter Marianela C Sheets DO Work Phone: [facility] Comment on above: Results Start: 09-25-2024 End: 09-25-2024 ambulatory MARIANELA C SHEETS Facility:[facility] Start: 09-25-2024 End: 09-25-2024 Patient encounter procedure Argenis Nagy DO Work Phone: Vascular Surgery Comment on above: Peripheral vascular disease (HCC) (Primary Dx); Screening for nephropathy Start: 09-23-2024 End: 09-24-2024 Refill Marianela C Sheets DO Work Phone: [facility] Comment on above: Refill Request Start: 09-11-2024 End: 09-18-2024 Telephone encounter Marianela C Sheets DO Work Phone: [facility] Comment on above: Lab Orders Start: 08-31-2024 End: 10-31-2024 Follow-up encounter Marianela Chris Grace DO Work Phone: [facility] Start: 08-30-2024 End: 08-30-2024 ambulatory MARIANELA C SHEETS Facility:[facility] Start: 08-30-2024 End: 08-30-2024 Subsequent hospital visit by physician [facility] D[facility] Work Phone: Radiology Comment on above: Asymptomatic menopau se [Z78.0] Encounter for screen ing mammogram for breast cancer [Z12.31] Start: 08-29-2024 End: 08-29-2024 ambulatory ARGENIS NAGY Facility:[facility] Start: 08-29-2024 End: 08-29-2024 ambulatory ARGENIS NAGY Facility:[facility] Start: 07-31-2024 End: 07-31-2024 ambulatory ARGENIS NAGY Facility:[facility] Start: 07-31-2024 End: 07-31-2024 Patient encounter procedure Argenis Nagy DO Work Phone: Vascular Surgery Comment on above: Symptomatic varicose veins of both lower extremities (Primary Dx); Claudication in peripheral vascular disease (HCC); Primary hypertension Start: 07-30-2024 End: 07-30-2024 Telephone encounter Marianela Edwards DO Work Phone: [facility] Comment on above: Lab Orders Start: 07-26-2024 End: 07-26-2024 ambulatory MARIANELABERNADETTE EDWARDS Facility:[facility] Start: 07-25-2024 End: 07-25-2024 ambulatory Ana Guerra RN Work Phone: [facility] [employer] [employer] Start: 07-25-2024 End: 07-25-2024 Home visit Ana Guerra RN Work Phone: [facility] Comment on above: Transition Of Care ( TCM f/u - Appointment) Bi-weekly phone contact (Recurring) for Transitional Care Management Start: 07-24-2024 End: 07-25-2024 Refill Marianela C Sheets DO Work Phone: [facility] Comment on above: Refill Request Start: 07-11-2024 End: 07-12-2024 ambulatory Ana Guerra RN Work Phone: [facility] [employer] Start: 07-11-2024 End: 07-12-2024 Home visit Ana Guerra RN Work Phone: [facility] Supervisor Comment on above: Transition Of Care ( Left CC Bety AMA 07/10/24) Initial phone contact for Transitional Care Management Start: 07-09-2024 End: 07-09-2024 Evaluation and management of inpatient FIDENCIO ADORNO Facility:[id number] Start: 07-09-2024 End: 07-10-2024 Evaluation and management of inpatient PIETER LEA Facility:[id number] Start: 07-08-2024 End: 07-08-2024 Emergency department patient visit ALYSIA ELAM Facility:[facility] Start: 06-25-2024 End: 06-25-2024 ambulatory MARIANELA C SHEETS Facility:[facility] Start: 06-25-2024 End: 06-25-2024 Patient encounter procedure Marianela C Sheets DO Work Phone: [facility] Comment on above: Hypothyroidism, acqu ired (Primary Dx); Claudication (HCC); Asymptomatic menopause; Encounter for screening mammogram for breast cancer; Screening for lipid disorders; Encounter for immunization; Screening for endocrine, metabolic and immunity disorder; Screening for blood disease; Well adult exam Start: 06-25-2024 End: 06-25-2024 Patient encounter status Marianela C Sheets DO Work Phone: [facility] Start: 06-13-2024 ambulatory Hardeep Patrick Facility:[facility] Start: 06-13-2024 End: 06-13-2024 ambulatory Jaziel Lin Facility:[facility] Start: 03-07-2024 ambulatory Jaziel Lin Facili ty:[facility] Start: 03-07-2024 End: 03-17-2024 Evaluation and management of inpatient [place] [facility] Facility:[facility] Procedures Date Procedure Procedure Detail Performing Clinician Start: 11-08-2024 Lipid 1996 panel - Serum or Plasma Marianela Sheets DO Work Phone: Start: 10-19-2024 Cta abdl aorta&bi iliofem w/contrast&postp Argenis D Caty DO Work Phone: Start: 07-26-2024 Lipid 1996 panel - Serum or Plasma Marianela Sheets DO Work Phone: Start: 07-08-2024 History of carotid endarterectomy History of left-sided carotid endarterectomy Ana Guerra RN Work Phone: Plan of Treatment Date Care Activity Detail Author Start: 09-27-2031 RSV Vaccine (1 - 1-d ose 75+ series) RSV Vaccine (1 - 1-dose 75+ series) [facility] Start: 11-08-2029 Lipid panel Lipid Screening [facility] Start: 07-26-2029 Lipid panel Lipid Screening [facility] Start: 07-26-2027 Diabetes Screening Diabetes Screenin g [facility] Start: 07-09-2027 Diabetes Screening Diabetes Screenin g [facility] Start: 08-30-2025 Screening for malign ant neoplasm of breast Mammogram Screening [facility] Start: 06-25-2025 Annual PCP Team Facility Attendant donya Disease Visit Annual PCP Team Chronic Disease Visit [facility] Start: 06-25-2025 BP Controlled (<130/80) BP Controlle d (<130/80) [facility] Start: 06-25-2025 Covid-19 Vaccine ( season) Covid-19 Vaccine ( season) [facility] Comment on above: Postponed from 03/04 (Declined at this time) Start: 06-25-2025 Shingrix Vaccine (1 of 2) Shingrix Vaccine (1 of 2) [facility] Comment on above: Postponed from 09/26 (Declined at this time) Start: 06-25-2025 Urine microalbumin profile DTaP,Tdap,Td Vaccine (1 - Tdap) [facility] Comment on above: Postponed from 09/26 (Declined at this time) Start: 04-01-2025 End: 04-01-2025 Patient encounter procedure 04/01/2025 9:40 AM EDT Office Visit Cardiology [address] [place] [address] Miguel Aguayo MD [address] [facility], [address] [place] [address] Hypertension Cardiology Comment on above: Hypertension Start: 12-31-2024 End: 12-31-2024 Nursing evaluation of patient and report 12/31/2024 8:45 AM EDT Nurse Visit Cardiology [address] [place] [id number] [place], Nurse Card [address] [place] [address] Dx: Encounter for screening for cardiovascular disorders [Z13.6] Cardiology Comment on above: Dx: Encounter for sc reening for cardiovascular disorders [Z13.6] Start: 12-31-2024 End: 12-31-2024 Patient encounter procedure Nuclear Medicine Comment on above: Dx: Encounter for sc reening for cardiovascular disorders [Z13.6] Start: 12-20-2024 End: 12-20-2024 ambulatory 12/20/2024 4:20 PM EDT [address] [id number] Marianela Edwards DO [address] [place], [place] [id number] thyroid med check [facility] Comment on above: thyroid med check Start: 11-16-2024 End: 02-15-2025 Thyrotropin [Units/volume] in Serum or Plasma THYROID STIMULATING HORMONE Lab Routine Hypothyroidism, acquired Expected: 11/16/2024, Expires: 02/15/2025 [facility] Work Phone: Comment on above: Expected: 11/16/2024 , Expires: 02/15/2025 Start: 11-06-2024 End: 11-06-2024 Patient encounter procedure 11/06/2024 9:30 AM EDT Office Visit Vascular Surgery [address] [place], [place] [address] Argenis Nagy DO [address] [place], [place] [id number] follow up after testing Vascular Surgery Comment on above: follow up after test ing Start: 10-19-2024 End: 10-19-2024 Patient encounter procedure 10/19/2024 1:30 PM EDT Appointment Radiology [address] [place] [address] Peripheral vascular disease (HCC) [I73.9] Radiology Comment on above: Peripheral vascular disease (HCC) [I73.9] Start: 09-25-2024 End: 09-25-2024 Patient encounter procedure 09/25/2024 9:00 AM EDT Office Visit Vascular Surgery [address] [place], [place] [id number] Argenis Nagy DO [address] [place] [address] follow up after testing Vascular Surgery Comment on above: follow up after test ing Start: 09-18-2024 End: 12-18-2024 Thyrotropin [Units/volume] in Serum or Plasma THYROID STIMULATING HORMONE Lab Routine Hypothyroidism, acquired Expected: 09/18/2024, Expires: 12/18/2024 [facility] Work Phone: Comment on above: Expected: 09/18/2024 , Expires: 12/18/2024 Start: 08-30-2024 End: 08-30-2024 Patient encounter procedure Mammogram Comment on above: Encounter for screen ing mammogram for breast cancer [Z12.31] Asymptomatic menopau se [Z78.0] Start: 08-29-2024 End: 08-29-2024 Patient encounter procedure 08/29/2024 2:30 PM EST Office Visit Vasculary Surgery [address] [place], [place] [id number] Claudication in peripheral vascular disease (HCC) [I73.9] Vasculary Surgery Comment on above: Claudication in renee pheral vascular disease (HCC) [I73.9] Start: 08-29-2024 End: 08-29-2024 Patient encounter procedure 08/29/2024 12:30 PM EST Office Visit Vasculary Surgery [address] [place] [address] Symptomatic varicose veins of both lower extremities [I83.893] Vasculary Surgery Comment on above: Symptomatic varicose veins of both lower extremities [I83.893] Start: 07-31-2024 End: 07-31-2024 Patient encounter procedure 07/31/2024 8:30 AM EST Office Visit Vascular Surgery [address] [place], [place] [address] Argenis Nagy, [address] [place] [address] Anurizms, blockage in arteries in neck. Vascular Surgery Comment on above: Anurizms, blockage i n arteries in neck. Start: 07-26-2024 End: 07-26-2024 Patient encounter procedure 07/26/2024 2:20 PM EST Office Visit [facility] [address] [place], [place] [id number] Marianela Edwards DO [address] [place] [address] [facility] 07/10/24 - Stiff neck, Headache, HTN [facility] Comment on above: TCM [facility] 07/10/24 - Stiff neck, Headache, HTN Start: 07-09-2024 End: 07-09-2024 Patient encounter procedure 07/09/2024 1:05 PM EST Appointment Radiology [address] [place] [id number] Asymptomatic menopause [Z78.0] Radiology Comment on above: Asymptomatic menopau se [Z78.0] Start: 07-04-2024 Advance Directive Discussion Advance Directive Discussion [facility] Start: 06-25-2024 End: 09-24-2024 CBC panel - Blood by Automated count COMPLETE BLOOD COUNT Lab Routine Screening for blood disease Expected: 06/25/2024, Expires: 09/24/2024 [facility] Comment on above: Expected: 06/25/2024 , Expires: 09/24/2024 Start: 06-25-2024 End: 09-24-2024 Comprehensive metabolic 2000 panel - Serum or Plasma COMPREHENSIVE METABOLIC PANEL Lab Routine Screening for endocrine, metabolic and immunity disorder Expected: 06/25/2024, Expires: 09/24/2024 [facility] Comment on above: Expected: 06/25/2024 , Expires: 09/24/2024 Start: 06-25-2024 End: 09-24-2024 Lipid 1996 panel - Serum or Plasma LIPID PANEL BASIC Lab Routine Screening for lipid disorders Expected: 06/25/2024, Expires: 09/24/2024 [facility] Comment on above: Expected: 06/25/2024 , Expires: 09/24/2024 Start: 06-25-2024 End: 09-24-2024 Thyrotropin [Units/volume] in Serum or Plasma THYROID STIMULATING HORMONE Lab Routine Hypothyroidism, acquired Expected: 06/25/2024, Expires: 09/24/2024 [facility] Comment on above: Expected: 06/25/2024 , Expires: 09/24/2024 Start: 2021 Screening for osteoporosis Bone Density Screening [facility] Start: 2016 RSV Vaccine (1 - Ris k 60-74 years 1-dose series) RSV Vaccine (1 - Risk 60-74 years 1-dose series) [facility] Start: 2001 Diabetes Screening Diabetes Screenin g [facility] Start: 2001 Lipid panel Lipid Screening [facility] Start: 2001 Screening for malign ant neoplasm of colon [facility] Start: 1996 Screening for malign ant neoplasm of breast Mammogram Screening [facility] Start: 1974 Anxiety Screening Anxiety Screening [facility] Start: 1974 BP Controlled (<130/80) BP Controlle d (<130/80) [facility] Start: 1974 Depression Screening Depression Scre ening [facility] End: 10-25-2025 CTA Abdominal, Pelvis and Lower extremity vessels W contrast IV CTA ABD/PEL LOWER EXTREM W IVCON Radiology Routine Peripheral vascular disease (HCC) 1 Occurrences starting 09/25/2024 until 10/25/2025 [facility] [facility] Work Phone: Comment on above: 1 Occurrences starti ng 09/25/2024 until 10/25/2025 End: 07-25-2025 DBT Breast - bilateral screening BRAD SCREENING [facility] Radiology Routine Encounter for screening mammogram for breast cancer 1 Occurrences starting 06/25/2024 until 07/25/2025 [facility] Work Phone: Comment on above: 1 Occurrences starti ng 06/25/2024 until 07/25/2025 DBT Breast - bilater al screening BRAD SCREENING [facility] Radiology Routine Encounter for screening mammogram for breast cancer 08/30/2024 1:33 PM EST [facility] Work Phone: End: 07-25-2025 DXA Skeletal system.axial Views for bone density DXA-AXIAL [facility] Radiology Routine Asymptomatic menopause 1 Occurrences starting 06/25/2024 until 07/25/2025 [facility] Comment on above: 1 Occurrences starti ng 06/25/2024 until 07/25/2025 DXA Skeletal system.axial Views for bone density DXA-AXIAL [facility]LE[facility] Radiology Routine Asymptomatic menopause 08/30/2024 1:57 PM EST [facility] Work Phone: Im adm prq id subq/i m njxs 1 vaccine IMADM PRQ ID SUBQ/IM NJXS 1 VACC Immunization/Injection Routine Encounter for immunization Ordered: 06/25/2024 [facility] Comment on above: Ordered: 06/25/2024 End: 07-31-2025 US Vein - bilateral US VENOUS INCOMPETENCY [facility] Lab Routine Symptomatic varicose veins of both lower extremities 1 Occurrences starting 07/31/2024 until 07/31/2025 [facility] Work Phone: Comment on above: 1 Occurrences starti ng 07/31/2024 until 07/31/2025 End: 07-31-2025 US.doppler Extremity arteries - bilateral for physiologic artery study at rest and with exercise PVR LEG W/EXC [facility] V[facility] Lab Routine Claudication in peripheral vascular disease (HCC) 1 Occurrences starting 07/31/2024 until 07/31/2025 [facility] Comment on above: 1 Occurrences starti ng 07/31/2024 until 07/31/2025 Immunizations Immunization Date Immunization Notes Care Provider Deloris martinez 06-25-2024 influenza, high dose seasonal, preservative-free Marianela Sheets DO Work Phone: [facility] 06-25-2024 pneumococcal conjuga te (PCV20) vaccine, 20 valent (PREVNAR 20) Marianela Sheets DO Work Phone: [facility] 06-25-2024 pneumococcal Conjuga te, unspecified formulation Marianela Sheets DO Work Phone: [facility] Payers Date Payer Category Payer Medicare (Managed Care) 1.2. [id number] 2024 Medicaid [id number] 2024 Unknown [facility] MEDICARE ADVANTAGE HMO [id number] 2024-Present [phone] [address] [place] [address] [facility] [id number] 2024 Medicare [id number] 2024 Medicare [id number] 2024 Self-pay 2024 Medicaid [id number] 2024 Medicaid [id number] 2021 Medicare MEDICARE MEDICAR E A AND B [id number] 2021-2024 [address] [address] [place] [address] Medicare [id number] 2021 Medicare [id number] Unknown [id number] 62 Unknown [id number] 62 Unknown [id number] 62 Unknown [id number] 62 Unknown [id number] 62 Unknown [id number] 62 Unknown [id number] [id number] 62 Unknown [id number] 62 Unknown [id number] [id number] 62 Unknown [id number] [id number] 62 Unknown [id number] [id number] 62 Unknown [id number] [id number] 62 Unknown [id number] [id number] 62 Unknown [id number] 62 Unknown [id number] 62 Unknown [id number] 62 Social History Date Type Detail Facility Start: 06-25-2024 End: 07-08-2024 Tobacco smoking status NHIS Smokes tobacco daily [facility] History of tobacco use Cigarette Smoker [facility] Start: 06-25-2024 End: 07-08-2024 Tobacco use and exposure Smokeless tobacco non-user [facility] Start: 06-25-2024 Alcoholic beverage intake Curr ent drinker of alcohol (finding) [facility] Start: 06-25-2024 End: 07-09-2024 History of Social function [facility] Start: 06-25-2024 End: 07-09-2024 Tobacco use panel [facility] National Score (1-10 0), lower number is lower risk 99 [facility] Start: 06-25-2024 Alcohol Comment [facility] Start: 1955 Sex assigned at Female [facility] Start: 04-30-2024 Gender identity Identifies as female gender (finding) [facility] Start: 04-30-2024 Sexual orientation Heterosexual (heidi ybarra) [facility] Start: 07-11-2024 End: 09-25-2024 Alcoholic beverage intake [facility] the [address], or water [employer] threatened to shut off services in your home in past 12Mo No [facility] (I/We) worried wheth er (my/our) food would run out before (I/we) got money to buy more. Sometimes true [facility] In the past 12 month s, was there a time when you were not able to pay the mortgage or rent on time? Yes [facility] Goals Date Patient Goal Desired Activity /State Personal health goal Clinical Notes 03-17-2024 to 11-27-2024 Telephone Encounter - Kimberlee Lofton RN - 11/27/2024 1:14 PM EDTTelephone Encounter - Kimberlee Lofton RN - 11/27/2024 1:14 PM EDTRPhilip grissom, TECHNOLOGIST - 10/19/2024 1:30 PM EDT Note Date & Type Note Facility 11-27-2024 Telephone encounter Note Patient phones requesting refills as follows: Requested Prescriptions Pending Prescriptions Disp Refills cilostazol (PLETAL) 50 mg tablet [Pharmacy Med Name: CILOSTAZOL 50 MG TABLET] 180 tablet 0 Sig: TAKE 1 TABLET BY MOUTH TWICE A DAY Please review and advise. Kimberlee Lofton RN [facility] 11-27-2024 Miscellaneous Notes Patient phones requesting refills as follows: Requested Prescriptions Pending Prescriptions Disp Refills cilostazol (PLETAL) 50 mg tablet [Pharmacy Med Name: CILOSTAZOL 50 MG TABLET] 180 tablet 0 Sig: TAKE 1 TABLET BY MOUTH TWICE A DAY Please review and advise. Kimberlee Lofton RN documented in this encounter [facility] 11-16-2024 Note Addended by: MARIANELA EDWARDS on: 11/16/2024 09:35 AM Modules accepted: Orders [facility] 11-16-2024 Telephone encounter Note Order attached Marianela Edwards DO [facility] 11-16-2024 Miscellaneous Notes Addended by: MARIANELA EDWARDS on: 11/16/2024 09:35 AM Modules accepted: Orders Order attached Marianela Edwards DO ----- Message from Shari Erickson MA sent at 10/05/2024 7:26 AM EDT ----- Remind pt. Time to recheck TSH. Shari López MA documented in this encounter [facility] 11-16-2024 Telephone encounter Note ----- Message from Shari Erickson MA sent at 10/05/2024 7:26 AM EDT ----- Remind pt. Time to recheck TSH. Shari López MA [facility] 11-08-2024 Telephone encounter Note Sent to [place]. Sharee White LPN [facility] 11-08-2024 Miscellaneous Notes Sent to [place] [facility]. Sharee White LPN Spoke to pt - she would like to restart norvasc 10 mg daily and will f/u in 2 weeks for NV BP Recheck Marianela Edwards DO Cecy Amaral NP who was out doing a home assessment on patient left message stating patient's BP today was elevated, left arm 180/88 and right arm 176/84. Patient's sister Leena also left message stating patient is willing to start on a BP medication now as her BP has been elevated for awhile. Requesting script be sent to [facility]. Please advise. Gloria Srinivasan MA documented in this encounter [facility] 11-08-2024 Telephone encounter Note I called and spoke to pt. Her BP has been going up. She would like to restart norvasc 10 mg daily. I advised her to make an appt in 2 weeks for NV BP recheck after starting norvasc 10 mg Marianela Edwards DO [facility] 11-08-2024 Miscellaneous Notes I called and spoke to pt. Her BP has been going up. She would like to restart norvasc 10 mg daily. I advised her to make an appt in 2 weeks for NV BP recheck after starting norvasc 10 mg Marianela Edwards DO documented in this encounter [facility] 11-07-2024 Telephone encounter Note Spoke to pt - she would like to restart norvasc 10 mg daily and will f/u in 2 weeks for NV BP Recheck Mairanela Edwards DO [facility] 11-07-2024 Telephone encounter Note Cecy Amaral NP who was out doing a home assessment on patient left message stating patient's BP today was elevated, left arm 180/88 and right arm 176/84. Patient's sister Leena also left message stating patient is willing to start on a BP medication now as her BP has been elevated for awhile. Requesting script be sent to [facility]. Please advise. Gloria Srinivasan MA [facility] 11-06-2024 Note HNO ID: [id number] Author: ARGENIS NAGY DO Service: ? Author Type: Physician Type: Progress Notes Filed: 12/04/2024 14:41 Note Text: Heart , V[facility] [place] DEPARTMENT OF VASCULAR SURGERY OUTPATIENT VISIT DATE November 06, 2024 OUTPATIENT VISIT TYPE ESTABLISHED SERVICE DATE: 11/06/2024 SERVICE TIME: 10:51 AM PRIMARY CARE PHYSICIAN: Marianela Edwards DO HISTORY OF PRESENT ILLNESS: Ms. Barron is a 69 year old female who presents today for a vascular surgery follow-up visit after CTA. She has peripheral arterial disease. Describes pain with walking, pressure and aching. She has been taking pletal however notices no significant change in claudication. PAST MEDICAL HISTORY Diagnosis Date Aneurysm 2019 Cardiovascular disease 2010 Hypertension Leg fracture, left 01/2024 Thyroid disease PAST SURGICAL HISTORY Procedure Laterality Date BRAIN SURGERY HX aneurysm CAROTID - INTERNAL Bilateral HIP SURGERY HX anders placed SHX VASCULAR SURGERY 2019 SOCIAL HISTORY Social History Tobacco Use Smoking status: Every Day Current packs/day: 0.50 Types: Cigarettes Smokeless tobacco: Never Vaping Use Vaping status: Former Substance Use Topics Alcohol use: Not Currently Comment: rarely Drug use: Yes Types: Marijuana Comment: Smokes about 4 to 5 times daily MEDICATIONS: levothyroxine (SYNTHROID) 112 mcg tablet Take 1 tablet by mouth once daily. Garlic 1,500 mg cap Take 1,500 mg by mouth. cilostazol (PLETAL) 50 mg tablet Take 1 tablet by mouth two times a day. aspirin, enteric coated (ASPIRIN, ENTERIC COATED) 81 mg EC tablet Take 162 mg by mouth once daily. ALLERGIES: ALLERGIES No Known Allergies PHYSICAL EXAM: Pulse 93 SpO2 96% General: Alert and oriented Integumentary: Normal color, no rash, no lesions. Extremities: No deformity, no edema or tenderness, no joint swelling or clubbing. Neurological: Normal cognition and motor skills. Vascular: Non-palpable distal pulses Diagnostic tests reviewed for today's visit: Most recent labs Most recent imaging CTA- bilateral external iliac and common femoral disease, diffuse bilateral stenosis of SFA, popliteal and tibial vessels IMPRESSION: Ms. Barron is a 69 year old female with peripheral arterial disease . PLAN and RECOMMENDATIONS: Will get stress test She needs to follow up with Dr. Edwards regarding hypertension. She is agreeable to resume taking her medications She may benefit from revascularization (femoral endarterectomies with iliac intervention) as symptoms have persisted and are impacting day to day activities Will have her follow up in [place] with Dr. Padgett SIGNATURE: Argenis Nagy DO PATIENT NAME: Maureen Barron DATE: November 06, 2024 TIME: 10:51 AM [facility] 10-19-2024 History of Presen t illness Narrative Radiology Service Progress Note DATE OF SERVICE: October 19, 2024 TIME: 2:14 PM PATIENT IDENTITY VERIFICATION COMPLETED USING TWO (2) STANDARD IDENTIFIERS: Name and Date of confirmed by patient verbally and Name and Date of confirmed by identification band. FALL SCREENING: Has the patient had 2 falls in the last year or 1 fall with injury or currently using an Ambulatory Assistive Device (Walker, Cane, Wheelchair, Crutches, etc.)? No PATIENT GENDER DATA: Assigned female at . status: : No status: NO. PATIENT RELEVANT IMPLANT DATA REVIEWED: Yes PATIENT PRESENTS WITH AN IMPLANTABLE OR ATTACHED TELEVISION PARTS TESTER: No ALLERGIES: Reviewed and unchanged CONTRAST ALLERGY: NO. EXAM: CT -CONTRAST INDUCED NEPHROPATHY RISK FACTORS: Patient age > 60 years CREATININE: Creatinine Date Value Ref Range Status 09/25/2024 1.19 (H) 0.58 - 0.96 mg/dL Final 07/26/2024 1.48 (H) 0.58 - 0.96 mg/dL Final 07/09/2024 1.20 (H) 0.51 - 0.95 mg/dL Final Comment: Patients receiving either N-Acetylcysteine (NAC) or Metamizole prior to venipuncture, may have falsely depressed results. Estimated Glomerular Filtration Rate Date Value Ref Range Status 09/25/2024 50 (L) >=60 mL/min/1.73m Final Comment: Estimated Glomerular Filtration Rate (eGFR) is calculated using the 2020 CKD-EPI creatinine equation. This equation utilizes serum creatinine, sex, and age as parameters. The creatinine assay has traceable calibration to isotope dilution-mass spectrometry. Refer to KDIGO guidelines for clinical interpretation. In patients with unstable renal function, e.g. those with acute kidney injury, the eGFR may not accurately reflect actual GFR. P.O.C.T. RESULTS: POC done: Yes, See Lab Tab October 19, 2024 TREATMENT: N/A PERIPHERAL IV DATA: Inpatient - refer to LDA documentation RADIOLOGY DEPARTMENT: CT; Exam(s) Completed: CTA Aorta/leg runoff SIGNATURE: TECHNOLOGIST Hugh PATIENT NAME: Maureen Barron DATE: October 19, 2024 TIME: 2:14 PM documented in this encounter [facility] 10-19-2024 Note HNO ID: [id number] Author: PHILIP LUZ TECHNOLOGIST Service: Radiology Author Type: Technologist Type: Progress Notes Filed: 10/19/2024 14:14 Note Text: Radiology Service Progress Note DATE OF SERVICE: October 19, 2024 TIME: 2:14 PM PATIENT IDENTITY VERIFICATION COMPLETED USING TWO (2) STANDARD IDENTIFIERS: Name and Date of confirmed by patient verbally and Name and Date of confirmed by identification band. FALL SCREENING: Has the patient had 2 falls in the last year or 1 fall with injury or currently using an Ambulatory Assistive Device (Walker, Cane, Wheelchair, Crutches, etc.)? No PATIENT GENDER DATA: Assigned female at . status: : No status: NO. PATIENT RELEVANT IMPLANT DATA REVIEWED: Yes PATIENT PRESENTS WITH AN IMPLANTABLE OR ATTACHED TELEVISION PARTS TESTER: No ALLERGIES: Reviewed and unchanged CONTRAST ALLERGY: NO. EXAM: CT -CONTRAST INDUCED NEPHROPATHY RISK FACTORS: Patient age > 60 years CREATININE: Creatinine Date Value Ref Range Status 09/25/2024 1.19 (H) 0.58 - 0.96 mg/dL Final 07/26/2024 1.48 (H) 0.58 - 0.96 mg/dL Final 07/09/2024 1.20 (H) 0.51 - 0.95 mg/dL Final Comment: Patients receiving either N-Acetylcysteine (NAC) or Metamizole prior to venipuncture, may have falsely depressed results. Estimated Glomerular Filtration Rate Date Value Ref Range Status 09/25/2024 50 (L) >=60 mL/min/1.73m? Final Comment: Estimated Glomerular Filtration Rate (eGFR) is calculated using the 2020 CKD-EPI creatinine equation. This equation utilizes serum creatinine, sex, and age as parameters. The creatinine assay has traceable calibration to isotope dilution-mass spectrometry. Refer to KDIGO guidelines for clinical interpretation. In patients with unstable renal function, e.g. those with acute kidney injury, the eGFR may not accurately reflect actual GFR. P.O.C.T. RESULTS: POC done: Yes, See Lab Tab October 19, 2024 TREATMENT: N/A PERIPHERAL IV DATA: Inpatient - refer to LDA documentation RADIOLOGY DEPARTMENT: CT; Exam(s) Completed: CTA Aorta/leg runoff SIGNATURE: Philip Luz TECHNOLOGIST PATIENT NAME: Maureen Barron DATE: October 19, 2024 TIME: 2:14 PM [facility] 10-19-2024 Nurse Note Radiology Service Progress Note DATE OF SERVICE: October 19, 2024 TIME: 1:56 PM PATIENT WEIGHT: 119LBS PATIENT IDENTITY VERIFICATION COMPLETED USING TWO (2) STANDARD IDENTIFIERS: Name and Date of confirmed by patient verbally and Name and Date of confirmed by identification band. FALL SCREENING: Has the patient had 2 falls in the last year or 1 fall with injury or currently using an Ambulatory Assistive Device (Walker, Cane, Wheelchair, Crutches, etc.)? No PATIENT GENDER DATA: Assigned female at . status: : No status: NO. ALLERGIES: Reviewed and unchanged CONTRAST ALLERGY: No EXAM: CT -CONTRAST INDUCED NEPHROPATHY RISK FACTORS: Not applicable CREATININE: Creatinine Date Value Ref Range Status 09/25/2024 1.19 (H) 0.58 - 0.96 mg/dL Final 07/26/2024 1.48 (H) 0.58 - 0.96 mg/dL Final 07/09/2024 1.20 (H) 0.51 - 0.95 mg/dL Final Comment: Patients receiving either N-Acetylcysteine (NAC) or Metamizole prior to venipuncture, may have falsely depressed results. Estimated Glomerular Filtration Rate Date Value Ref Range Status 09/25/2024 50 (L) >=60 mL/min/1.73m Final Comment: Estimated Glomerular Filtration Rate (eGFR) is calculated using the 2020 CKD-EPI creatinine equation. This equation utilizes serum creatinine, sex, and age as parameters. The creatinine assay has traceable calibration to isotope dilution-mass spectrometry. Refer to KDIGO guidelines for clinical interpretation. In patients with unstable renal function, e.g. those with acute kidney injury, the eGFR may not accurately reflect actual GFR. P.O.C.T. RESULTS: N/A October 19, 2024 TREATMENT: N/A IV SITE: Ambulatory: A peripheral IV was started in the Right with a Angio cath: 20 gauge. IV SITE APPEARANCE: Clean,Dry and Intact SIGNATURE: Marbella Marie RN PATIENT NAME: Maureen Barron DATE: October 19, 2024 TIME: 1:56 PM [facility] 10-19-2024 Nurse Note Radiology Service Progress Note DATE OF SERVICE: October 19, 2024 TIME: 1:56 PM PATIENT WEIGHT: 119LBS PATIENT IDENTITY VERIFICATION COMPLETED USING TWO (2) STANDARD IDENTIFIERS: Name and Date of confirmed by patient verbally and Name and Date of confirmed by identification band. FALL SCREENING: Has the patient had 2 falls in the last year or 1 fall with injury or currently using an Ambulatory Assistive Device (Walker, Cane, Wheelchair, Crutches, etc.)? No PATIENT GENDER DATA: Assigned female at . status: : No status: NO. ALLERGIES: Reviewed and unchanged CONTRAST ALLERGY: No EXAM: CT -CONTRAST INDUCED NEPHROPATHY RISK FACTORS: Not applicable CREATININE: Creatinine Date Value Ref Range Status 09/25/2024 1.19 (H) 0.58 - 0.96 mg/dL Final 07/26/2024 1.48 (H) 0.58 - 0.96 mg/dL Final 07/09/2024 1.20 (H) 0.51 - 0.95 mg/dL Final Comment: Patients receiving either N-Acetylcysteine (NAC) or Metamizole prior to venipuncture, may have falsely depressed results. Estimated Glomerular Filtration Rate Date Value Ref Range Status 09/25/2024 50 (L) >=60 mL/min/1.73m Final Comment: Estimated Glomerular Filtration Rate (eGFR) is calculated using the 2020 CKD-EPI creatinine equation. This equation utilizes serum creatinine, sex, and age as parameters. The creatinine assay has traceable calibration to isotope dilution-mass spectrometry. Refer to KDIGO guidelines for clinical interpretation. In patients with unstable renal function, e.g. those with acute kidney injury, the eGFR may not accurately reflect actual GFR. P.O.C.T. RESULTS: N/A October 19, 2024 TREATMENT: N/A IV SITE: Ambulatory: A peripheral IV was started in the Right with a Angio cath: 20 gauge. IV SITE APPEARANCE: Clean,Dry and Intact SIGNATURE: Marbella Marie RN PATIENT NAME: Maureen Barron DATE: October 19, 2024 TIME: 1:56 PM documented in this encounter [facility] 10-05-2024 Telephone encounter Note Steve on pt. Vm with all information. Shari López MA [facility] 10-05-2024 Miscellaneous Notes Lm on pt. Vm with all information. Shari López MA Please call pt- her thyroid levels are now a little high. I will adjust her medication and we should recheck TSH in 6 weeks Marianela Edwards DO documented in this encounter [facility] 10-03-2024 Telephone encounter Note Please call pt- her thyroid levels are now a little high. I will adjust her medication and we should recheck TSH in 6 weeks Marianela Edwards DO [facility] 09-25-2024 Note HNO ID: [id number] Author: AREGNIS NAGY DO Service: ? Author Type: Physician Type: Progress Notes Filed: 09/25/2024 13:14 Note Text: Heart , Vascular [facility] [place] DEPARTMENT OF VASCULAR SURGERY OUTPATIENT VISIT DATE September 25, 2024 OUTPATIENT VISIT TYPE ESTABLISHED SERVICE DATE: 09/25/2024 SERVICE TIME: 9:48 AM PRIMARY CARE PHYSICIAN: Marianela Edwards DO HISTORY OF PRESENT ILLNESS: Ms. Mino Barron is a 68 year old female who presents today for a vascular surgery follow-up visit after venous reflux testing and PVRs. She continues to have bilateral lower extremity lifestyle limiting claudication. She does smoke however trying to cut back on amount. Denies rest pain or ulceration PAST MEDICAL HISTORY Diagnosis Date Aneurysm (HCC) 2019 Cardiovascular disease 2010 Hypertension Leg fracture, left 01/2024 Thyroid disease PAST SURGICAL HISTORY Procedure Laterality Date BRAIN SURGERY HX aneurysm CAROTID - INTERNAL Bilateral HIP SURGERY HX anders placed SHX VASCULAR SURGERY 2019 SOCIAL HISTORY Social History Tobacco Use Smoking status: Every Day Current packs/day: 0.50 Types: Cigarettes Smokeless tobacco: Never Vaping Use Vaping status: Former Substance Use Topics Alcohol use: Not Currently Comment: rarely Drug use: Yes Types: Marijuana Comment: Smokes about 4 to 5 times daily MEDICATIONS: Garlic 1,500 mg cap Take 1,500 mg by mouth. levothyroxine (SYNTHROID) 125 mcg tablet TAKE 1 TABLET BY MOUTH EVERY DAY aspirin, enteric coated (ASPIRIN, ENTERIC COATED) 81 mg EC tablet Take 162 mg by mouth once daily. ALLERGIES: ALLERGIES No Known Allergies PHYSICAL EXAM: BP 157/78 (BP Site: Right Arm, BP Position: Sitting, BP Cuff Size: Regular Adult) Pulse 83 SpO2 96% Gen- no distress Ext- nonpalpable distal pulse, no ulceration or tissue loss, bilateral prominent superficial veins, spider veins Diagnostic tests reviewed for today's visit: Most recent labs Most recent imaging PVRs The patient has an VINCE consistent with a diagnosis of peripheral artery disease. Consider referral to a vascular specialist for evaluation unless already implemented. RIGHT SIDE Resting right ankle brachial index: 0.64 Post exercise right ankle brachial index: 0.43 Right toe brachial index: 0.40 Abnormal ankle brachial index at rest diagnostic of peripheral artery disease. Right ankle: Moderate disease at rest. Aortic or bilateral iliofemoral disease. Right distal superficial femoral and/or popliteal disease. Note drop in pressure and/or ankle-brachial index after exercise. LEFT SIDE Resting left ankle brachial index: 0.69 Post exercise left ankle brachial index: 0.66 Left toe brachial index: 0.44 Abnormal ankle brachial index at rest diagnostic of peripheral artery disease. Left ankle: Moderate disease at rest. Aortic or bilateral iliofemoral disease. Left distal superficial femoral and/or popliteal disease. No significant change in pressure and/or ankle-brachial index with exercise. Venous Reflux RIGHT SIDE - DEEP VEINS Negative for acute deep vein thrombosis in vessels visualized. RIGHT SIDE - SUPERFICIAL VEINS Negative for valvular incompetency in the great saphenous vein. Discontinuous vein proximal thigh. Small branches/spider veins proximal to mid calf/heaton. Negative for valvular incompetency in the small saphenous vein. Branches mid calf. LEFT SIDE - DEEP VEINS Negative for acute deep vein thrombosis in vessels visualized. LEFT SIDE - SUPERFICIAL VEINS Negative for valvular incompetency in the great saphenous vein. Discontinuous vein proximal to mid thigh. Negative for valvular incompetency in the anterior accessory great saphenous vein. Negative for valvular incompetency i IMPRESSION: Ms. Mino Barron is a 68 year old female with peripheral arterial disease with short-distance claudication . PLAN and RECOMMENDATIONS: Reviewed PVRs and venous duplex Will get CTA with run-off as symptoms are impacting day to day activities Continue current non-interventional therapy with a trial of pletal Follow up after CT scan SIGNATURE: Argenis Nagy DO PATIENT NAME: Maureen Barron DATE: September 25, 2024 TIME: 9:48 AM [facility] 09-25-2024 History of Presen t illness Narrative Images from the original note were not included. [facility] [place] DEPARTMENT OF VASCULAR SURGERY OUTPATIENT VISIT DATE September 25, 2024 OUTPATIENT VISIT TYPE ESTABLISHED SERVICE DATE: 09/25/2024 SERVICE TIME: 9:48 AM PRIMARY CARE PHYSICIAN: Marianela Edwards DO HISTORY OF PRESENT ILLNESS: Ms. Mino Barron is a 68 year old female who presents today for a vascular surgery follow-up visit after venous reflux testing and PVRs. She continues to have bilateral lower extremity lifestyle limiting claudication. She does smoke however trying to cut back on amount. Denies rest pain or ulceration PAST MEDICAL HISTORY Diagnosis Date Aneurysm (HCC) 2019 Cardiovascular disease 2010 Hypertension Leg fracture, left 01/2024 Thyroid disease PAST SURGICAL HISTORY Procedure Laterality Date BRAIN SURGERY HX aneurysm CAROTID - INTERNAL Bilateral HIP SURGERY HX anders placed SHX VASCULAR SURGERY 2019 SOCIAL HISTORY Social History Tobacco Use Smoking status: Every Day Current packs/day: 0.50 Types: Cigarettes Smokeless tobacco: Never Vaping Use Vaping status: Former Substance Use Topics Alcohol use: Not Currently Comment: rarely Drug use: Yes Types: Marijuana Comment: Smokes about 4 to 5 times daily MEDICATIONS: Garlic 1,500 mg cap Take 1,500 mg by mouth. levothyroxine (SYNTHROID) 125 mcg tablet TAKE 1 TABLET BY MOUTH EVERY DAY aspirin, enteric coated (ASPIRIN, ENTERIC COATED) 81 mg EC tablet Take 162 mg by mouth once daily. ALLERGIES: ALLERGIES No Known Allergies PHYSICAL EXAM: BP 157/78 (BP Site: Right Arm, BP Position: Sitting, BP Cuff Size: Regular Adult) Pulse 83 SpO2 96% Gen- no distress Ext- nonpalpable distal pulse, no ulceration or tissue loss, bilateral prominent superficial veins, spider veins Diagnostic tests reviewed for today's visit: Most recent labs Most recent imaging PVRs The patient has an VINCE consistent with a diagnosis of peripheral artery disease. Consider referral to a vascular specialist for evaluation unless already implemented. RIGHT SIDE Resting right ankle brachial index: 0.64 Post exercise right ankle brachial index: 0.43 Right toe brachial index: 0.40 Abnormal ankle brachial index at rest diagnostic of peripheral artery disease. Right ankle: Moderate disease at rest. Aortic or bilateral iliofemoral disease. Right distal superficial femoral and/or popliteal disease. Note drop in pressure and/or ankle-brachial index after exercise. LEFT SIDE Resting left ankle brachial index: 0.69 Post exercise left ankle brachial index: 0.66 Left toe brachial index: 0.44 Abnormal ankle brachial index at rest diagnostic of peripheral artery disease. Left ankle: Moderate disease at rest. Aortic or bilateral iliofemoral disease. Left distal superficial femoral and/or popliteal disease. No significant change in pressure and/or ankle-brachial index with exercise. Venous Reflux RIGHT SIDE - DEEP VEINS Negative for acute deep vein thrombosis in vessels visualized. RIGHT SIDE - SUPERFICIAL VEINS Negative for valvular incompetency in the great saphenous vein. Discontinuous vein proximal thigh. Small branches/spider veins proximal to mid calf/heaton. Negative for valvular incompetency in the small saphenous vein. Branches mid calf. LEFT SIDE - DEEP VEINS Negative for acute deep vein thrombosis in vessels visualized. LEFT SIDE - SUPERFICIAL VEINS Negative for valvular incompetency in the great saphenous vein. Discontinuous vein proximal to mid thigh. Negative for valvular incompetency in the anterior accessory great saphenous vein. Negative for valvular incompetency i IMPRESSION: Ms. Mino Barron is a 68 year old female with peripheral arterial disease with short-distance claudication . PLAN and RECOMMENDATIONS: Reviewed PVRs and venous duplex Will get CTA with run-off as symptoms are impacting day to day activities Continue current non-interventional therapy with a trial of pletal Follow up after CT scan SIGNATURE: Argenis Nagy DO PATIENT NAME: Maureen Barron DATE: September 25, 2024 TIME: 9:48 AM documented in this encounter [facility] 09-24-2024 Telephone encounter Note pharmacy electronically requesting refills as follows: Last seen 06/25/24 . Last refill 1/25/25 . Requested Prescriptions Pending Prescriptions Disp Refills levothyroxine (SYNTHROID) 125 mcg tablet [Pharmacy Med Name: LEVOTHYROXINE 125 MCG TABLET] 30 tablet 1 Sig: TAKE 1 TABLET BY MOUTH EVERY DAY Please review and advise. Gloria Srinivasan MA [facility] 09-24-2024 Miscellaneous Notes pharmacy electronically requesting refills as follows: Last seen 06/25/24 . Last refill 07/28/24 . Requested Prescriptions Pending Prescriptions Disp Refills levothyroxine (SYNTHROID) 125 mcg tablet [Pharmacy Med Name: LEVOTHYROXINE 125 MCG TABLET] 30 tablet 1 Sig: TAKE 1 TABLET BY MOUTH EVERY DAY Please review and advise. Gloria Srinivasan MA documented in this encounter [facility] 09-18-2024 Telephone encounter Note Patient notified. Shari López MA [facility] 09-18-2024 Miscellaneous Notes Patient notified. Shari López MA Order attached Marianela Edwards DO ----- Message from Shari Erickson MA sent at 07/31/2024 8:22 AM EST ----- Please put in reminder for pt to have TSH in 6 weeks, documented in this encounter [facility] 09-18-2024 Telephone encounter Note Order attached Marianela Edwards DO [facility] 09-11-2024 Telephone encounter Note ----- Message from Shari Erickson MA sent at 07/31/2024 8:22 AM EST ----- Please put in reminder for pt to have TSH in 6 weeks, [facility] 08-30-2024 History of Presen t illness Narrative Radiology Service Progress Note PATIENT NAME: Maureen Barron DATE OF SERVICE: August 30, 2024 TIME: 1:20 PM PATIENT IDENTITY VERIFICATION COMPLETED USING TWO (2) IDENTIFIERS: Name and Date of confirmed by patient verbally. FALL SCREENING: Has the patient had 2 falls in the last year or 1 fall with injury or currently using an Ambulatory Assistive Device (Walker, Cane, Wheelchair, Crutches, etc.)? No PATIENT GENDER DATA: Assigned female at . status: : No status: NO. PATIENT RELEVANT IMPLANT DATA REVIEWED: Not Applicable PATIENT PRESENTS WITH AN IMPLANTABLE OR ATTACHED TELEVISION PARTS TESTER: No RADIOLOGY DEPARTMENT: Bone Density PERIPHERAL IV DATA: Not applicable SIGNED BY: RT Carmen(Carmelina) August 30, 2024 1:20 PM documented in this encounter [facility] 08-30-2024 Note HNO ID: [id number] Author: ELIDIA GRAFF RT(Carmelina) Service: ? Author Type: Technologist Type: Progress Notes Filed: 08/30/2024 13:30 Note Text: Radiology Service Progress Note PATIENT NAME: Maureen Barron DATE OF SERVICE: August 30, 2024 TIME: 1:20 PM PATIENT IDENTITY VERIFICATION COMPLETED USING TWO (2) IDENTIFIERS: Name and Date of confirmed by patient verbally. FALL SCREENING: Has the patient had 2 falls in the last year or 1 fall with injury or currently using an Ambulatory Assistive Device (Walker, Cane, Wheelchair, Crutches, etc.)? No PATIENT GENDER DATA: Assigned female at . status: : No status: NO. PATIENT RELEVANT IMPLANT DATA REVIEWED: Not Applicable PATIENT PRESENTS WITH AN IMPLANTABLE OR ATTACHED TELEVISION PARTS TESTER: No RADIOLOGY DEPARTMENT: Bone Density PERIPHERAL IV DATA: Not applicable SIGNED BY: Elidia Graff RT(R) August 30, 2024 1:20 PM [facility] 08-30-2024 History of Presen t illness Narrative Radiology Service Progress Note PATIENT NAME: Maureen Barron DATE OF SERVICE: August 30, 2024 TIME: 12:51 PM PATIENT IDENTITY VERIFICATION COMPLETED USING TWO (2) IDENTIFIERS: Name and Date of confirmed by patient verbally. FALL SCREENING: Has the patient had 2 falls in the last year or 1 fall with injury or currently using an Ambulatory Assistive Device (Walker, Cane, Wheelchair, Crutches, etc.)? No PATIENT GENDER DATA: Assigned female at . status: : No status: NO. PATIENT RELEVANT IMPLANT DATA REVIEWED: Not Applicable PATIENT PRESENTS WITH AN IMPLANTABLE OR ATTACHED TELEVISION PARTS TESTER: No RADIOLOGY DEPARTMENT: Mammography PERIPHERAL IV DATA: Not applicable SIGNED BY: Tyler Henry August 30, 2024 12:51 PM documented in this encounter [facility] 08-30-2024 Note HNO ID: [id number] Author: MARIAM MOJICA Mammo Tech Service: ? Author Type: Instructor Bridge Type: Progress Notes Filed: 08/30/2024 12:52 Note Text: Radiology Service Progress Note PATIENT NAME: Maureen Barron DATE OF SERVICE: August 30, 2024 TIME: 12:51 PM PATIENT IDENTITY VERIFICATION COMPLETED USING TWO (2) IDENTIFIERS: Name and Date of confirmed by patient verbally. FALL SCREENING: Has the patient had 2 falls in the last year or 1 fall with injury or currently using an Ambulatory Assistive Device (Walker, Cane, Wheelchair, Crutches, etc.)? No PATIENT GENDER DATA: Assigned female at . status: : No status: NO. PATIENT RELEVANT IMPLANT DATA REVIEWED: Not Applicable PATIENT PRESENTS WITH AN IMPLANTABLE OR ATTACHED TELEVISION PARTS TESTER: No RADIOLOGY DEPARTMENT: Mammography PERIPHERAL IV DATA: Not applicable SIGNED BY: Mariam Mojica Cloudadmin August 30, 2024 12:51 PM [facility] 07-31-2024 Note HNO ID: [id number] Author: ARGENIS NAGY DO Service: ? Author Type: Physician Type: Progress Notes Filed: 07/31/2024 10:00 Note Text: Heart, V[facility] Thor[facility] [place] DEPARTMENT OF VASCULAR SURGERY OUTPATIENT VISIT DATE July 31, 2024 OUTPATIENT VISIT TYPE CONSULTATION SERVICE DATE: 07/31/2024 SERVICE TIME: 8:38 AM PRIMARY CARE PHYSICIAN: Marianela Edwards DO REFERRING PROVIDER: Marianela Edwards [address] [place] [id number] Consult requested for an opinion regarding the evaluation and treatment of the above. My final impression and recommendations will be communicated back to the requesting physician by way of the shared medical record or letter via [place] mail. CHIEF COMPLAINT: Carotid Disease HISTORY OF PRESENT ILLNESS: Vascular consultation at the request of Dr. Marianela Edwards. A copy of this consultation note will be provided to the requesting physician by way of shared Medical record or letter to requesting physician via [place] mail. Ms. Mino Barron is a 68 year old female who is seen today for carotid artery occlusions. She has a history of left carotid endarterectomy and known carotid occlusion. She has a history of intracranial aneurysm treatment in [place]. She has had vein treatment in [place] where veins were dissolved. She admits to claudication and leg pain with ambulation at short distances. She admits to smoking and marijuana. States her legs are stopping her from day to day activities. She did fall and break her leg last year- she was unable to bear weight for a long period of time. PAST MEDICAL HISTORY Diagnosis Date Aneurysm (HCC) 2019 Cardiovascular disease 2010 Hypertension Leg fracture, left 01/2024 Thyroid disease PAST SURGICAL HISTORY Procedure Laterality Date BRAIN SURGERY HX aneurysm CAROTID - INTERNAL Bilateral HIP SURGERY HX anders placed SHX VASCULAR SURGERY 2019 SOCIAL HISTORY: Social History Tobacco Use Smoking status: Every Day Current packs/day: 0.50 Types: Cigarettes Smokeless tobacco: Never Vaping Use Vaping status: Former Substance Use Topics Alcohol use: Not Currently Comment: rarely Drug use: Yes Types: Marijuana Comment: Smokes about 4 to 5 times daily FAMILY HISTORY Problem Relation Age of Onset Hypertension Mother Hyperlipidemia Mother Heart Mother Intersitial Lung Disease Mother Thyroid Mother Hyperlipidemia Father Hypertension Father Diabetes Father Heart Attack Father Stroke Father Systemic Lupus Erythematosus Sister Cancer Paternal Grandfather stomach Leukemia Maternal Uncle MEDICATIONS: levothyroxine (SYNTHROID) 125 mcg tablet Take 1 tablet by mouth once daily. aspirin, enteric coated (ASPIRIN, ENTERIC COATED) 81 mg EC tablet Take 162 mg by mouth once daily. ALLERGIES: ALLERGIES No Known Allergies REVIEW of SYSTEM: Constitutional: No weight loss, malaise or fevers. HEENT: Negative for frequent or significant headaches, Negative for significant ear problems or hearing loss and nasal discharge or nose bleeds, Eyes Positive for recent change in vision Respiratory: Positive for chronic cough Cardiovascular: Negative for chest pain, leg swelling or palpitations Gatrointestinal: Negative for abdominal discomfort, blood in stools or black stools or change in bowel habits Genitourinary: No history of dysuria, frequency, or incontinence Musculoskeletal: Negative for muscle pain and Positive for joint pain and neck pain Endocrine: Positive for cold intolerance Hematology/Lymphatic: Positive for bruises easily Neurologic: Positive for syncope and tremor Integumentary: Negative for lesions, rash, and itching. PHYSICAL EXAM: VITALS: 07/31/24 0850 07/31/24 0858 BP: 185/84 156/84 BP Site: Right Arm Left Arm BP Position: Sitting Sitting BP Cuff Size: Regular Adult Regular Adult Pulse: 80 SpO2: 95% General: Alert and oriented Integumentary: Normal color, no rash, no lesions. HEENT: EOM, pupils equal, round and reactive., No carotid bruits Cardiovascular: Pulse regular. Lungs: No chest deformities or chest wall tenderness. Abdomen: Not examined Extremities: Edema -trace, Varicose veins, left leg dependent rubor Neurological: Normal cognition and motor skills. Vascular: doppler dp bilaterallly Diagnostic tests reviewed for today's visit: Most recent labs Most recent imaging CTA- CTA NECK: 1. Complete occlusion of the right internal carotid artery at its origin is noted, chronic by history 2. Status post carotid endarterectomy on the left with no evidence of stenosis 3. Patent vertebral arteries bilaterally, with moderate to severe calcified plaque at the origin of the nondominant right vertebral artery 4. Only small portion of the left lobe of the thyroid is visible, which may be related to atrophy or prior surgical resection of the remainder of the gland 3. Moderate cervical spondylosis. Consider d (more content not included)... [facility] 07-31-2024 History of Presen t illness Narrative Images from the original note were not included. Heart, Vascular [facility] Thor[facility] [place] DEPARTMENT OF VASCULAR SURGERY OUTPATIENT VISIT DATE July 31, 2024 OUTPATIENT VISIT TYPE CONSULTATION SERVICE DATE: 07/31/2024 SERVICE TIME: 8:38 AM PRIMARY CARE PHYSICIAN: Marianela Edwards DO REFERRING PROVIDER: Marianela Edwards [address] [facility] [id number] Consult requested for an opinion regarding the evaluation and treatment of the above. My final impression and recommendations will be communicated back to the requesting physician by way of the shared medical record or letter via [place] mail. CHIEF COMPLAINT: Carotid Disease HISTORY OF PRESENT ILLNESS: Vascular consultation at the request of Dr. Marianela Edwards. A copy of this consultation note will be provided to the requesting physician by way of shared Medical record or letter to requesting physician via [place] mail. Ms. Mino Barron is a 68 year old female who is seen today for carotid artery occlusions. She has a history of left carotid endarterectomy and known carotid occlusion. She has a history of intracranial aneurysm treatment in [place]. She has had vein treatment in [place] where veins were dissolved. She admits to claudication and leg pain with ambulation at short distances. She admits to smoking and marijuana. States her legs are stopping her from day to day activities. She did fall and break her leg last year- she was unable to bear weight for a long period of time. PAST MEDICAL HISTORY Diagnosis Date Aneurysm (HCC) 2019 Cardiovascular disease 2010 Hypertension Leg fracture, left 01/2024 Thyroid disease PAST SURGICAL HISTORY Procedure Laterality Date BRAIN SURGERY HX aneurysm CAROTID - INTERNAL Bilateral HIP SURGERY HX anders placed SHX VASCULAR SURGERY 2019 SOCIAL HISTORY: Social History Tobacco Use Smoking status: Every Day Current packs/day: 0.50 Types: Cigarettes Smokeless tobacco: Never Vaping Use Vaping status: Former Substance Use Topics Alcohol use: Not Currently Comment: rarely Drug use: Yes Types: Marijuana Comment: Smokes about 4 to 5 times daily FAMILY HISTORY Problem Relation Age of Onset Hypertension Mother Hyperlipidemia Mother Heart Mother Intersitial Lung Disease Mother Thyroid Mother Hyperlipidemia Father Hypertension Father Diabetes Father Heart Attack Father Stroke Father Systemic Lupus Erythematosus Sister Cancer Paternal Grandfather stomach Leukemia Maternal Uncle MEDICATIONS: levothyroxine (SYNTHROID) 125 mcg tablet Take 1 tablet by mouth once daily. aspirin, enteric coated (ASPIRIN, ENTERIC COATED) 81 mg EC tablet Take 162 mg by mouth once daily. ALLERGIES: ALLERGIES No Known Allergies REVIEW of SYSTEM: Constitutional: No weight loss, malaise or fevers. HEENT: Negative for frequent or significant headaches, Negative for significant ear problems or hearing loss and nasal discharge or nose bleeds, Eyes Positive for recent change in vision Respiratory: Positive for chronic cough Cardiovascular: Negative for chest pain, leg swelling or palpitations Gatrointestinal: Negative for abdominal discomfort, blood in stools or black stools or change in bowel habits Genitourinary: No history of dysuria, frequency, or incontinence Musculoskeletal: Negative for muscle pain and Positive for joint pain and neck pain Endocrine: Positive for cold intolerance Hematology/Lymphatic: Positive for bruises easily Neurologic: Positive for syncope and tremor Integumentary: Negative for lesions, rash, and itching. PHYSICAL EXAM: VITALS: 07/31/24 0850 07/31/24 0858 BP: 185/84 156/84 BP Site: Right Arm Left Arm BP Position: Sitting Sitting BP Cuff Size: Regular Adult Regular Adult Pulse: 80 SpO2: 95% General: Alert and oriented Integumentary: Normal color, no rash, no lesions. HEENT: EOM, pupils equal, round and reactive., No carotid bruits Cardiovascular: Pulse regular. Lungs: No chest deformities or chest wall tenderness. Abdomen: Not examined Extremities: Edema -trace, Varicose veins, left leg dependent rubor Neurological: Normal cognition and motor skills. Vascular: doppler dp bilaterallly Diagnostic tests reviewed for today's visit: Most recent labs Most recent imaging CTA- CTA NECK: 1. Complete occlusion of the right internal carotid artery at its origin is noted, chronic by history 2. Status post carotid endarterectomy on the left with no evidence of stenosis 3. Patent vertebral arteries bilaterally, with moderate to severe calcified plaque at the origin of the nondominant right vertebral artery 4. Only small portion of the left lobe of the thyroid is visible, which may be related to atrophy or prior surgical resection of the remainder of the gland 3. Moderate cervical spondylosis. Consider dedicated cervical MRI. CTA HEAD: 1. No evidence of acute large vessel occlusion 2. Prior endovascular treatment of basilar apex aneurysm with no evidence of significant size recurrent aneurysm or any additional aneurysms 3. Vascular supply to the right MCA territory is via the posterior communicating artery which is widely patent 4. Moderate narrowing of the right P2 segment noted IMPRESSION: Ms. Mino Barron is a 68 year old female with claudication, symptomatic varicose veins, carotid artery occlusion, tobacco use . PLAN and RECOMMENDATIONS: Discussed arterial and venous disease with patient Recommend PVRs and Venous Reflux testing Discussed smoking cessation- patient not ready to stop smoking at this time Recommend continued walking and exercise Discussed importance of blood pressure control and that she may need to resume taking her antihypertensives. Follow up after testing SIGNATURE: Argenis Nagy DO PATIENT NAME: Maureen Barron DATE: July 31, 2024 TIME: 8:38 AM documented in this encounter [facility] 07-30-2024 Telephone encounter Note ----- Message from Marianelahazel Edwards DO sent at 07/28/2024 11:39 AM EST ----- Please put in reminder for pt to have TSH in 6 weeks, FLP/CMP in 3 months Marianela Edwards DO [facility] 07-30-2024 Miscellaneous Notes ----- Message from Marianelahazel Edwards DO sent at 07/28/2024 11:39 AM EST ----- Please put in reminder for pt to have TSH in 6 weeks, FLP/CMP in 3 months Marianelahazel Edwards DO documented in this encounter [facility] 07-25-2024 Note HNO ID: [id number] Author: ANA GUERRA RN Service: ? Author Type: Registered Nurse Type: Progress Notes Filed: 07/25/2024 16:07 Note Text: [facility] TRANSITIONAL CARE MANAGEMENT (TCM) FOLLOW-UP NOTE Patient identified by name and date of : NO Diagnosis: N/A Summary: TCM RN received a notification that pt's TCM appointment for 1/23/25 was canceled. TCM RN called pt to reschedule appointment - left msg. Health leads screening tool questions performed? Addressed 07/11/24 N/A Concerns: N/A Electronic Publications Specialist plan for next outreach: Will follow-up in about 2wks. Signature: Ana Guerra RN July 25, 2024 [facility] 07-25-2024 History of Presen t illness Narrative [facility] TRANSITIONAL CARE MANAGEMENT (TCM) FOLLOW-UP NOTE Patient identified by name and date of : NO Diagnosis: N/A Summary: TCM RN received a notification that pt's TCM appointment for 07/26/24 was canceled. TCM RN called pt to reschedule appointment - left msg. Health leads screening tool questions performed? Addressed 07/11/24 N/A Concerns: N/A Electronic Publications Specialist plan for next outreach: Will follow-up in about 2wks. Signature: Ana Guerra RN July 25, 2024 documented in this encounter [facility] 07-25-2024 Telephone encounter Note Left message on patients voicemail with all information. Reminder placed. Shari López MA [facility] 07-25-2024 Miscellaneous Notes Left message on patients voicemail with all information. Reminder placed. Shari López MA Please call pt- her thyroid levels are low. I have increased synthroid to 112 mcg daily and we will recheck TSH in 2 months Marianela Edwards DO patient phones requesting refills as follows: Last seen 06/25/24 . Last refill previous pcp . Requested Prescriptions Pending Prescriptions Disp Refills levothyroxine (SYNTHROID) 100 mcg tablet 90 tablet 1 Sig: Take 1 tablet by mouth daily before breakfast. Please review and advise. Gloria Srinivasan MA documented in this encounter [facility] 07-25-2024 Note Patient Outreach ([facility] ACM) MAUREEN ANSARI ([id number]) 1955 F T Date Time Provider Department 07/25/24 ANA GUERRA During your visit today, we recorded the following information about you: Ana Guerra RN 07/25/2024 4:07 PM Signed [facility] TRANSITIONAL CARE MANAGEMENT (TCM) FOLLOW-UP NOTE Patient identified by name and date of : NO Diagnosis: N/A Summary: TCM RN received a notification that pt's TCM appointment for 07/26/24 was canceled. TCM RN called pt to reschedule appointment - left msg. Health leads screening tool questions performed? Addressed 07/11/24 N/A Concerns: N/A Electronic Publications Specialist plan for next outreach: Will follow-up in about 2wks. Signature: Ana Guerra RN July 25, 2024 Allergies As of Date: 07/25/2024 (No Known Allergies) Date Reviewed: 07/10/2024 Reviewed by: Brigida Persaud LPN - Fully Assessed Reason for Visit: Transition Of Care [4074] Cmt: TCM f/u - Appointment Prescriptions as of 07/25/2024 - levothyroxine (SYNTHROID) 112 mcg tablet Take 1 tablet by mouth daily before breakfast. - aspirin, enteric coated (ASPIRIN, ENTERIC COATED) 81 mg EC tablet Take 162 mg by mouth once daily. - aspirin, enteric coated (ASPIRIN, ENTERIC COATED) 81 mg EC tablet Take 162 mg by mouth once daily. Problem List As Of Date 07/25/2024 Noted Resolved Hypertensive emergency [I16.1] 07/08/2024 Hypertension [I10] 07/08/2024 Right internal carotid occlusion [I65.21] 07/08/2024 History of left-sided carotid endarterectomy [Z*07/08/2024 History of cerebral aneurysm [Z86.79] 07/08/2024 Elevated serum creatinine [R79.89] 07/08/2024 Hyperglycemia [R73.9] 07/08/2024 Leukocytosis [D72.829] 07/08/2024 Nicotine use disorder, F17.2 [F17.200] 07/10/2024 Encounter Status:Closed by ANA GUERRA on 07/25/24 [facility] 07-24-2024 Telephone encounter Note Please call pt- her thyroid levels are low. I have increased synthroid to 112 mcg daily and we will recheck TSH in 2 months Marianela Edwards DO [facility] 07-24-2024 Telephone encounter Note patient phones requesting refills as follows: Last seen 06/25/24 . Last refill previous pcp . Requested Prescriptions Pending Prescriptions Disp Refills levothyroxine (SYNTHROID) 100 mcg tablet 90 tablet 1 Sig: Take 1 tablet by mouth daily before breakfast. Please review and advise. Gloria Srinivasan MA [facility] 07-11-2024 Note HNO ID: [id number] Author: ANA GUERRA RN Service: ? Author Type: Registered Nurse Type: Progress Notes Filed: 07/12/2024 16:06 Note Text: TRANSITIONAL CARE MANAGEMENT (TCM) COMMUNITY MONITORING PROGRAM - [place] Provider Action/FYI: Still has neck stiffness and pain No headaches Pt hasn't checked her BP yet today TCM appointment with PCP - 07/26/24 (1st available) SUMMARY: Pt discharged from [facility] on 07/10/24. RISK 15 Admitted for: ART HTN Left-sided neck pain Patient seen Inpatient JOAQUIM Visit? N/A. Patient seen ICARE Program? N/A. Contact made with patient: Yes Hi my name is Ana Guerra RN and I am calling from the [facility] on behalf of your PCP, Marianela Edwards, DO I understand you were recently in the hospital so I am calling to check in with you to ensure you are feeling well now that you?re home. Do you mind if I ask you a few questions related to your hospital stay and well-being Yes Contact with patient post discharge, spoke to patient (w/ her sister in the background). Patient identified by name and . Do you feel your health is BETTER, WORSE, or the SAME since leaving the hospital? Same Pt admits that she Left [facility]. States she isn't normally like that, but she was upset w/ the care and the food. Pt still has a stiff neck, up to her throat. She can't turn her head right or left. This is still causing pain. States that it has gotten better. She is using a hot pad, which helps a lot. No HAs. Per pt, the hospital r/o'd her heart. States that everything was good there. Pt states that she was concerned because she has a history of a brain aneurysm and blood clots. She states that everything looks good. Pain makes her BP violette-rocket. She feels that this is why her BP was 240/113 in the ED. By the time she left the hospital, states that her SBP was 140s. Pt took herself off of her BP meds last November. States that her PCP is aware. She hasn't checked her BP today. Admits that prior to moving to [place], she had poor eating habits; and had put her health on the back burner. She is smoking cigarettes and pot. In January, shortly after she moved here, pt broke her L leg below the knee. States that her leg has healed perfectly. ACTION TAKEN: Patient indicated symptoms are better or same, no action required. Continue outreach. N/A MEDICATIONS: Many patients have questions or concerns about their medications once they are home. Do you have any questions about taking your medications or which medication you should be on? No Do you need any medication refills at this time, including any of the medications you might take only when needed? No ACTION TAKEN: No action required For RNs or Pharmacy completing outreach ONLY, was a medication review completed? Yes Current/Discharged Medications reviewed: Yes Medication List Medication Directions Comments aspirin, enteric coated (ASPIRIN, ENTERIC COATED) 81 mg EC tablet Take 162 mg by mouth once daily. Verified aspirin, enteric coated (ASPIRIN, ENTERIC COATED) 81 mg EC tablet Take 162 mg by mouth once daily. Duplicate levothyroxine (SYNTHROID) 100 mcg tablet Take 100 mcg by mouth daily before breakfast. Verified levothyroxine 100 mcg cap Take 100 mcg by mouth daily before breakfast. Duplicate SOCIAL: We would like to make sure you have what you need so that your basics needs are met - including your personal safety. HEALTH LEADS SCREENING TOOL QUESTIONS: Do you often feel you lack companionship? No [place] shortly before January 2024. She is living w/ her sister in [place]. States that they are the only 2 left in their family, besides some cousins. Her sister is helping her get her Social Security from [place] to [place] figured out. Do you ever need help reading or understanding hospital materials? No In the last 12 months, have you changed how you take medications to save money? No In the past 12 months, has lack of transportation kept you from medical appointments, work or getting things you need like food, or supplies? No Pt doesn't drive. Her sister can transport. They also use a ride share. In the last 12 months, did you ever eat less than you felt you should because there wasn't enough money for food? No During the winter, do you anticipate having a problem paying your heating bill? No In the next 2 months, are you worried you might not have stable housing? No Would you like to speak with a social work tractor driver teamster to help give you support for any of these needs? No It can be normal to feel anxious or down during a time like this. Would you like to talk to a mental health professional about how you have been feeling? No Pt admits that she has been really' depressed. Prior to moving to [place], pt was homeless, after going through a stressful divorce. States that she lost her 3 bedroom home. Declined to speak w/ a SW at this time. ACT (more content not included)... [facility] 07-11-2024 History of Presen t illness Narrative TRANSITIONAL CARE MANAGEMENT (TCM) COMMUNITY MONITORING PROGRAM - [place] Provider Action/FYI: Still has neck stiffness and pain No headaches Pt hasn't checked her BP yet today TCM appointment with PCP - 07/26/24 (1st available) SUMMARY: Pt discharged from [facility] on 07/10/24. RISK 15 Admitted for: ART HTN Left-sided neck pain Patient seen Inpatient JOAQUIM Visit? N/A. Patient seen ICARE Program? N/A. Contact made with patient: Yes Hi my name is Ana Guerra RN and I am calling from the [facility] on behalf of your PCP, Marianela Edwards, DO I understand you were recently in the hospital so I am calling to check in with you to ensure you are feeling well now that you re home. Do you mind if I ask you a few questions related to your hospital stay and well-being Yes Contact with patient post discharge, spoke to patient (w/ her sister in the background). Patient identified by name and . Do you feel your health is BETTER, WORSE, or the SAME since leaving the hospital? Same Pt admits that she Left [place]. States she isn't normally like that, but she was upset w/ the care and the food. Pt still has a stiff neck, up to her throat. She can't turn her head right or left. This is still causing pain. States that it has gotten better. She is using a hot pad, which helps a lot. No HAs. Per pt, the hospital r/o'd her heart. States that everything was good there. Pt states that she was concerned because she has a history of a brain aneurysm and blood clots. She states that everything looks good. Pain makes her BP violette-rocket. She feels that this is why her BP was 240/113 in the ED. By the time she left the hospital, states that her SBP was 140s. Pt took herself off of her BP meds last November. States that her PCP is aware. She hasn't checked her BP today. Admits that prior to moving to [place], she had poor eating habits; and had put her health on the back burner. She is smoking cigarettes and pot. In January, shortly after she moved here, pt broke her L leg below the knee. States that her leg has healed perfectly. ACTION TAKEN: Patient indicated symptoms are better or same, no action required. Continue outreach. N/A MEDICATIONS: Many patients have questions or concerns about their medications once they are home. Do you have any questions about taking your medications or which medication you should be on? No Do you need any medication refills at this time, including any of the medications you might take only when needed? No ACTION TAKEN: No action required For RNs or Pharmacy completing outreach ONLY, was a medication review completed? Yes Current/Discharged Medications reviewed: Yes Medication List Medication Directions Comments aspirin, enteric coated (ASPIRIN, ENTERIC COATED) 81 mg EC tablet Take 162 mg by mouth once daily. Verified aspirin, enteric coated (ASPIRIN, ENTERIC COATED) 81 mg EC tablet Take 162 mg by mouth once daily. Duplicate levothyroxine (SYNTHROID) 100 mcg tablet Take 100 mcg by mouth daily before breakfast. Verified levothyroxine 100 mcg cap Take 100 mcg by mouth daily before breakfast. Duplicate SOCIAL: We would like to make sure you have what you need so that your basics needs are met - including your personal safety. HEALTH LEADS SCREENING TOOL QUESTIONS: Do you often feel you lack companionship? No [place] shortly before [place] 2024. She is living w/ her sister in [place]. States that they are the only 2 left in their family, besides some cousins. Her sister is helping her get her Social Security from [place] to [place] figured out. Do you ever need help reading or understanding hospital materials? No In the last 12 months, have you changed how you take medications to save money? No In the past 12 months, has lack of transportation kept you from medical appointments, work or getting things you need like food, or supplies? No Pt doesn't drive. Her sister can transport. They also use a ride share. In the last 12 months, did you ever eat less than you felt you should because there wasn't enough money for food? No During the winter, do you anticipate having a problem paying your heating bill? No In the next 2 months, are you worried you might not have stable housing? No Would you like to speak with a social work tractor driver teamster to help give you support for any of these needs? No It can be normal to feel anxious or down during a time like this. Would you like to talk to a mental health professional about how you have been feeling? No Pt admits that she has been really' depressed. Prior to moving to [place], pt was homeless, after going through a stressful divorce. States that she lost her 3 bedroom home. Declined to speak w/ a BHSW at this time. ACTION TAKEN: No action taken DISCHARGE INTRUCTIONS: Your discharge instructions / After Visit Summary (AVS) are important in guiding you through the recovery process. Do you have any questions related to your discharge instructions? No Do you have all the necessary equipment and supplies at home? Yes ACTION TAKEN: No action required WRAP AROUND SERVICES: Behavioral Health Referral - Declined Patient educated on importance of primary care provider follow up visit as well as specialty provider follow up visits as indicated. Inform the patient that if they have any questions or concerns prior to that appointment, to call their Primary Care Provider 's office right away. Primary care provider first education provided. I would like to help you schedule a hospital follow-up virtual or telephone visit with your PCP. ACTION TAKEN: TCM Primary Care Provider Visit Scheduled: Yes - Appt date: 07/26/24 at 2:20p with Dr. Edwards (PCP). This was PCP's 1st available hospital f/u appointment. Pt missed her Bone Density test because she was admitted. States that she will reschedule it. Ana Guerra, TESHA documented in this encounter [facility] 07-11-2024 Note Patient Outreach (AG ACM) MAUREEN ANSARI ([id number]) 1955 F CHT Date Time Provider Department 07/11/24 ANA GUERRA [facility] During your visit today, we recorded the following information about you: Ana Guerra, RN 07/12/2024 4:06 PM Signed TRANSITIONAL CARE MANAGEMENT (TCM) COMMUNITY MONITORING PROGRAM - [place] Provider Action/FYI: Still has neck stiffness and pain No headaches Pt hasn't checked her BP yet today TCM appointment with PCP - 07/26/24 (1st available) SUMMARY: Pt discharged from [facility] on 07/10/24. RISK 15 Admitted for: ART HTN Left-sided neck pain Patient seen Inpatient JOAQUIM Visit? N/A. Patient seen ICARE Program? N/A. Contact made with patient: Yes Hi my name is Ana Guerra RN and I am calling from the [facility] on behalf of your PCP, Marianela Edwards, DO I understand you were recently in the hospital so I am calling to check in with you to ensure you are feeling well now that you?re home. Do you mind if I ask you a few questions related to your hospital stay and well-being Yes Contact with patient post discharge, spoke to patient (w/ her sister in the background). Patient identified by name and . Do you feel your health is BETTER, WORSE, or the SAME since leaving the hospital? Same Pt admits that she Left [place]. States she isn't normally like that, but she was upset w/ the care and the food. Pt still has a stiff neck, up to her throat. She can't turn her head right or left. This is still causing pain. States that it has gotten better. She is using a hot pad, which helps a lot. No HAs. Per pt, the hospital r/o'd her heart. States that everything was good there. Pt states that she was concerned because she has a history of a brain aneurysm and blood clots. She states that everything looks good. Pain makes her BP violette-rocket. She feels that this is why her BP was 240/113 in the ED. By the time she left the hospital, states that her SBP was 140s. Pt took herself off of her BP meds last November. States that her PCP is aware. She hasn't checked her BP today. Admits that prior to moving to [place], she had poor eating habits; and had put her health on the back burner. She is smoking cigarettes and pot. In January, shortly after she moved here, pt broke her L leg below the knee. States that her leg has healed perfectly. ACTION TAKEN: Patient indicated symptoms are better or same, no action required. Continue outreach. N/A MEDICATIONS: Many patients have questions or concerns about their medications once they are home. Do you have any questions about taking your medications or which medication you should be on? No Do you need any medication refills at this time, including any of the medications you might take only when needed? No ACTION TAKEN: No action required For RNs or Pharmacy completing outreach ONLY, was a medication review completed? Yes Current/Discharged Medications reviewed: Yes Medication List Medication Directions Comments aspirin, enteric coated (ASPIRIN, ENTERIC COATED) 81 mg EC tablet Take 162 mg by mouth once daily. Verified aspirin, enteric coated (ASPIRIN, ENTERIC COATED) 81 mg EC tablet Take 162 mg by mouth once daily. Duplicate levothyroxine (SYNTHROID) 100 mcg tablet Take 100 mcg by mouth daily before breakfast. Verified levothyroxine 100 mcg cap Take 100 mcg by mouth daily before breakfast. Duplicate SOCIAL: We would like to make sure you have what you need so that your basics needs are met - including your personal safety. HEALTH LEADS SCREENING TOOL QUESTIONS: Do you often feel you lack companionship? No [place]. She is living w/ her sister in [place]. States that they are the only 2 left in their family, besides some cousins. Her sister is helping her get her Social Security from [place] to [place] figured out. Do you ever need help reading or understanding hospital materials? No In the last 12 months, have you changed how you take medications to save money? No In the past 12 months, has lack of transportation kept you from medical appointments, work or getting things you need like food, or supplies? No Pt doesn't drive. Her sister can transport. They also use a ride share. In the last 12 months, did you ever eat less than you felt you should because there wasn't enough money for food? No During the winter, do you anticipate having a problem paying your heating bill? No In the next 2 months, are you worried you might not have stable housing? No Would you like to speak with a social work tractor driver teamster to help give you support for any of these needs? No It can be normal to feel anxious or down during a time like this. Would you like to talk to a mental health professional about how you have been feeling? No Pt admits that she has been adrian (more content not included)... [facility] 07-10-2024 Note HNO ID: [id number] Author: PERI GRESHAM RN Service: Care Management Author Type: Registered Nurse Type: Care Mgt Progress Note Filed: 07/10/2024 10:58 Note Text: CARE MANAGEMENT PROGRESS NOTE SERVICE DATE: 07/10/2024 SERVICE TIME: 1039 LOS: 1 day IMM Follow Up Copy Given: Yes Copy given to:: Patient Method: In Person SIGNATURE: Peri Gresham RN PATIENT NAME: Maureen Barron DATE: July 10, 2024 TIME: 10:58 AM [facility] 07-09-2024 Note HNO ID: [id number] Author: TERE PATEL LSW Service: Care Management Author Type: Nuclear Medicine Officer Type: Care Mgt Initial Assessment Filed: 07/09/2024 15:07 Note Text: CARE MANAGEMENT: ASSESSMENT AND DISCHARGE PLAN SERVICE DATE: July 09, 2024 SERVICE TIME: 2:43 PM PCP: Marianela Edwards DO Primary Contact: Extended Emergency Contact Information Primary Emergency Contact: Leena Pires Mobile Relation: Sister Admission Status: Inpatient Insurance Provider: [employer] HMO Discharge Planning requested by: Per Department Practice Potential Transition Plans Home Advance Directives Current Advance Directive: None Tongue And Quarter Stitcher Attempted to Assist with AD Completion: Yes Action: Education Provided;Patient Unwilling Current Living Arrangements and Support Lives with: Family members Type of Residence: Mobile Home Does the patient have to climb stairs at home?: No Support: Family members How do you manage to accomplish the following: Independent: Ambulation;Bathe/Shower;Dress;Me als/Meal Prep;Going to the bathroom;Medication Management Dependent: Transportation to appointments/community Current Services/Equipment Current Post-Acute Service(s): None Discharge Planning Patient Goal(s): Be able to go home, General wellness Chandler of Choice Explained: Chandler of Choice Given: No Reason Not Given: No placements necessary Are you interested in bedside delivery of your medications? No Discharge Planning Participant(s): Patient Patient/Family Comments: No specific comment made Caregiver Assessment: Caregiver is ready, willing and able to meet the patient's needs as recommended by the inter-professional team: No Caregiver needed Intimate Partner Violence We have begun to talk to patients about safe and healthy relationships because it can have a large impact on your health. Do you feel safe around your partner or ex-partner?: Yes Food Insecurity Within the past 12 months, you worried that your food would run out before you got the money to buy more.: Sometimes true Within the past 12 months, the food you bought just didn't last and you didn't have money to get more.: Sometimes true Transportation Needs In the past 12 months, has lack of transportation kept you from medical appointments or from getting medications?: Yes In the past 12 months, has lack of transportation kept you from meetings, work, or from getting things needed for daily living?: No Housing Stability In the last 12 months, was there a time when you were not able to pay the mortgage or rent on time?: Yes In the past 12 months, how many times have you moved where you were living?: 2 At any time in the past 12 months, were you homeless or living in a detention (including now)?: Yes Utilities In the past 12 months has the [employer], [employer], oil, or water [employer] threatened to shut off services in your home?: No Social Information Financial Resources: Unemployed Transport at Discharge: Transportation Arrangements: To Be Determined Needs Prior to Discharge: Needs Prior to Discharge: To Be Determined;Discharge Transportation Post-Acute Discharge Plan: Patient admitted to ICU for HTN emergency, leukocytosis, hyperglycemia, hx cerebral aneurysm. Patient on RA, cardene gtt, IVF, heart healthy diet, ECHO pend, tox screen +THC/amphet/opiates. Met with patient at bedside to complete IA. Patient from home with sister, independent with ADLs and IADLs prior to admission, uses no DME at baseline, can drive but does not own a car, +PCP - sees once a year, +insurance - no issues with coverage or obtaining prescriptions, does report insurance is a dual plan (has Medicaid), was homeless in [place] for a short time prior to moving [place] after getting a divorce and losing her home, informed SW she is still trying to establish herself with providers in [facility]. SW discussed drug use with patient as patient tested positive for amphetamines on admission. Patient reports she is not an active user but there are people at the [place] where her sister lives cooking meth underneath the [place] and it is getting everywhere. It's coming in through the vents, it's all over our clothes, it's just everywhere. Patient adamant that she is not an active user, does admit to smoking marijuana (could potentially have been laced with meth as patient reports rolling her own joints). Patient denies need for resources. Plan to dc home once medically stable, sister able to provide transport at [place]. Anticipate no needs. SIGNATURE: ALTON Casiano PATIENT NAME: Maureen Barron DATE: July 09, 2024 TIME: 2:41 PM [facility] 07-09-2024 Note HNO ID: [id number] Author: JESI MATSON MD Service: Critical Care Author Type: Physician Type: Progress Notes Filed: 07/09/2024 13:05 Note Text: PULMONARY/CRITICAL CARE INTENSIVE MEDICAL/SURGICAL CARE UNIT PROGRESS NOTE Patient Name: Maureen Barron Account #: Data Unavailable Admission Date: 07/09/2024 Date of Evaluation: 07/09/2024 Time of Evaluation: 12:59 PM SUBJECTIVE Neck pain, otherwise feels OK VITALS 07/09/24 1145 07/09/24 1200 07/09/24 1215 07/09/24 1230 BP: 157/71 175/77 169/74 148/60 Pulse: 71 74 76 73 Resp: 13 9 14 15 Temp: TempSrc: SpO2: 92% 93% 93% 92% Weight: Height: PHYSICAL EXAM Gen: Alert AND Oriented x 3, No acute distress Lungs: Clear to Auscultation bilaterally , No wheezing, rhonchi or rales Heart: Regular Rate and Rhythm, Normal S1 and S2, no murmurs Abd: Soft, Nontender and nondistended, Positive Bowel Sounds x all four quadrants Ext: No edema, +2 pulses Neuro: CN II - XII grossly intact, no sensory/motor deficits noted 24 hour Intake AND Output: Intake/Output Summary (Last 24 hours) at 07/09/2024 1259 Last data filed at 07/09/2024 0423 Gross per 24 hour Intake -- Output 100 ml Net -100 ml INPATIENT MEDICATIONS : Current Facility-Administered Medications Medication Dose Route Frequency aspirin, enteric coated 162 mg tab(s) 162 mg ORAL DAILY levothyroxine 100 mcg tab(s) (SYNTHROID) 100 mcg ORAL DAILY (6 AM) NaCl 0.9% iv flush bag 20 mL INTRAVENOUS PRN lactated ringers iv infusion 75 mL/hr INTRAVENOUS CONTINUOUS niCARdipine iv infusion 40 mg in NaCl (iso-osmotic) 200 mL (CARDENE) 2.5-15 mg/hr INTRAVENOUS CONTINUOUS ondansetron 4 mg tab(s) (ZOFRAN) 4 mg ORAL q 6 H PRN Or ondansetron (PF) 4 mg injection (ZOFRAN) 4 mg INTRAVENOUS q 6 H PRN acetaminophen 650 mg tab(s) (TYLENOL) 650 mg ORAL q 6 H PRN traMADol 25 mg tab(s) (ULTRAM) 25 mg ORAL q 6 H PRN lidocaine 4 % 1 Patch (SALONPAS) 1 Patch TRANSDERMAL DAILY AT 9 PM And [START ON 07/10/2024] lidocaine patch - REMOVE OTHER DAILY And lidocaine - VERIFY PATCH OTHER q 8 H sodium chloride 0.9 % (flush) 2-10 mL (BD POSIFLUSH) 2-10 mL INTRAVENOUS DIRECTED PRN And perflutren lipid microspheres 1.1 mg/mL 1.3 mL injection (DEFINITY) 1.3 mL INTRAVENOUS DIRECTED PRN amLODIPine 10 mg tab(s) (NORVASC) 10 mg ORAL DAILY HOME MEDICATIONS: aspirin, enteric coated (ASPIRIN, ENTERIC COATED) 81 mg EC tabletTake 162 mg by mouth once daily.Disp: Rfl: levothyroxine 100 mcg capTake 100 mcg by mouth daily before breakfast.Disp: Rfl: LABORATORY TESTS: CBC: Recent Labs 07/09/2432307/08/24 1642 WBC 11.43* 13.94* HB 18.1* 19.3* HCT 53.5* 59.2* PLT 307 291 MCV 92.7 94.4 RDWCV 13.2 13.1 COAG: Recent Labs 07/09/24323 APTT 29.8 INR 1.0 BMP: Recent Labs 07/09/2432307/08/24 1642 GLUC 121* 162* NA 136 135* K 3.9 4.6 CHLOR 102 96* CO2 30 27 ANION 4* 12 BUN 13 16 CREAT 1.20* 1.26* CHEM: Recent Labs 07/09/2432307/08/24 1642 ALB 3.3 -- TPROT 7.1 -- CA 10.0 10.4* MG 1.8 -- HEPATIC: Recent Labs 01/06/25 0324 ALKPHOS 88 ALT 10* AST 15 TBILI 0.6 URINALYSIS: Recent Labs 07/09/24 0338 SPGR >1.030* UGLUC 1+* UBILI Negative UKET Negative UHB 1+* UPROT 2+* UWBC 0-5 /HPF CARDIAC: Recent Labs 07/09/24 0324 PBNP 3,229* ASSESSMENT Active Hospital Problems Diagnosis Hypertensive emergency Hypertension Right internal carotid occlusion Chronic History of left-sided carotid endarterectomy History of cerebral aneurysm Elevated serum creatinine Hyperglycemia Leukocytosis ASSESSMENT: -Hypertensive emergency -Leukocytosis -Elevated serum creatinine -Hyperglycemia -Hx chronic right ICA occlusion -Hx left-sided carotid endarterectomy -Hx cerebral aneurysm s/p repair PLAN: -Continue/wean Cardene infusion - start amlodipine 10 mg daily and lisinopril 20 mg daily -WBC 14K. Pro-Deric, RVP, CXR. Low suspicion for infection. Hold antibiotics at this time. -Cr slightly improved 1.2. ? Element of CKD -BG 162 on CMP in ED. Denies DM history. Obtain A1c. Continue to trend -Vascular occlusions managed previously by vascular surgeon in [place]. Patient reports that she has appointment with vascular surgeon to establish care in [place]. No LOC, syncope, neurologic deficits. 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 No concern at this time for evolution of aneurysm or bleed. - GI/DVT Prophylaxis: Not indicated/SCDs - F/E/N: LR 75/replace as needed/heart healthy diet - Code Status: Full code; discussed with patient 07/09/2024 with Fidencio Nelson APRN.CORPORATE INTERN. ICU Checklist Last Documented/Reviewed time: 07/09/2024 10:26 AM ICU Code Status History assess/Full code by default: No, active code status present ------- (more content not included)... [facility] 07-09-2024 Note SARS-COV-2 (AGENT OF COVID-19) RNA: Not detected INFLUENZA A RNA: Not detected INFLUENZA B RNA: Not detected RESPIRATORY SYNCYTIAL VIRUS (RSV) RNA: Not detected [facility] Comment on above: Performed By: #### 9 [id number] #### [facility] CLIA [id number] [id number] [place] 06-25-2024 Note HNO ID: [id number] Author: MARIANELA EDWARDS, DO Service: ? Author Type: Physician Type: Progress Notes Filed: 07/08/2024 08:52 Note Text: SUBJECTIVE: 68 year old female here with her sister to establish. I have fully reviewed the past medical, surgical, social and family history and updated the Histories section of [facility]. She has a history of carotid endarterectomy, hep c, hypothyroidism She has shaking of the right arm She has numbness in her right arm and in her right leg She has a history of a brain aneurysm She has been to a vascular surgeon in the past and would like a referral to establish with a new one She stopped all her meds other than thyroid and baby aspirin She smokes 1/2 PPD No LMP recorded. ALLERGIES No Known Allergies Current Outpatient Medications Medication Sig Dispense Refill levothyroxine (SYNTHROID) 100 mcg tablet Take 100 mcg by mouth daily before breakfast. aspirin, enteric coated (ASPIRIN, ENTERIC COATED) 81 mg EC tablet Take 162 mg by mouth once daily. No current facility-administered medications for this visit. There is no problem list on file for this patient. Social History Tobacco Use Smoking status: Every Day Current packs/day: 0.50 Types: Cigarettes Smokeless tobacco: Never Vaping Use Vaping status: Former Substance Use Topics Alcohol use: Yes Comment: rarely Drug use: Yes Types: Marijuana Family History Problem Relation Age of Onset Hypertension Mother Hyperlipidemia Mother Heart Mother Intersitial Lung Disease Mother Thyroid Mother Hyperlipidemia Father Hypertension Father Diabetes Father Heart Attack Father Stroke Father Systemic Lupus Erythematosus Sister Cancer Paternal Grandfather stomach Leukemia Maternal Uncle Reviewed past medical history, family history and surgeries. All medications and supplements were reviewed with the patient. REVIEW OF SYSTEMS GENERAL: No weight loss, malaise or fevers HEENT: Negative for frequent or significant headaches, No changes in hearing or vision, no nose bleeds or other nasal problems NECK: Negative for lumps, goiter, pain and significant neck swelling RESPIRATORY: Negative for cough, hemoptysis, wheezing, COPD, dyspnea or shortness of breath CARDIOVASCULAR: Negative for chest pain, leg swelling, hypertension, CHF or palpitations GI: No nausea, vomiting, or diarrhea : No history of dysuria, frequency or incontinence MUSCULOSKELETAL: Negative for joint pain or swelling, back pain or muscle pain SKIN: Negative for lesions, rash, and itching PSYCH: Negative for sleep disturbance, mood disorder and recent psychosocial stressors HEMATOLOGY/LYMPHOLOGY: Negative for prolonged bleeding, bruising easily or swollen nodes ENDOCRINE: Negative for cold or heat intolerance, polyuria, polydipsia and goiter NEURO: tremors, numbess PHYSICAL EXAMINATION: BP 118/72 Pulse (!) 58 Temp 36.5 ?C (97.7 ?F) Resp 16 Ht 152.4 cm (5') Wt 54 kg (119 lb) SpO2 98% BMI 23.24 kg/m? General appearance: Well appearing, alert, in no acute distress, well-hydrated, well nourished. Skin: Skin color, texture, turgor normal, no suspicious rashes or lesions Head: Normocephalic, no masses, lesions, tenderness or abnormalities Eyes: Anicteric sclera. Pupils are equally round and reactive to light. Extraocular movements are intact. Ears: External ears normal, canals clear Nose/Sinuses: Nares normal, septum midline, mucosa normal, no drainage or sinus tenderness Oropharynx: Lips, mucosa, and tongue normal, teeth and gums normal, oropharynx normal Neck: Supple, no adenopathy; thyroid symmetric, normal size, no bruits Back: Normal exam Lungs: Lungs clear to auscultation. No wheezing, rhonchi, rales. Heart: RRR without murmur, gallop, or rubs. No ectopy Abdomen: Normal abdominal exam, Abdomen soft, non-tender. Bowel sounds normal. No masses, organomegaly Extremities: No deformities, edema, skin discoloration, clubbing or cyanosis. Good capillary refill. Musculoskeletal: No joint swelling, deformity, or tenderness Peripheral pulses: Normal Neuro: Gait normal. Reflexes normal and symmetric. Sensation grossly intact. ASSESSMENT/PLAN: 1. Hypothyroidism, acquired - ICD9: 244.9, ICD10: E03.9 (primary diagnosis) - Instructed patient on importance of taking on an empty stomach either first thing in the morning or at bedtime. - LEVOTHYROXINE 100 MCG TABLET - THYROID STIMULATING HORMONE 2. Claudication (HCC) - ICD9: 443.9, ICD10: I73.9 - CONSULT TO VASCULAR SURGERY 3. Asymptomatic menopause - ICD9: V49.81, ICD10: Z78.0 - DXA-AXIAL SKELETON 4. Encounter for screening mammogram for breast cancer - ICD9: V76.12, ICD10: Z12.31 - BRAD SCREENING W RONALD 5. Screening for lipid disorders - ICD9: V77.91, ICD10: Z13.220 - LIPID PANEL BASIC 6. Encounter for immunization - ICD9: V03.89, ICD10: Z23 - INFLUENZA VACCINE, PRSV FREE, AGE 65+ YR, HIGH DOSE, (more content not included)... [facility] 06-25-2024 History of Presen t illness Narrative SUBJECTIVE: 68 year old female here with her sister to establish. I have fully reviewed the past medical, surgical, social and family history and updated the Histories section of [facility]. She has a history of carotid endarterectomy, hep c, hypothyroidism She has shaking of the right arm She has numbness in her right arm and in her right leg She has a history of a brain aneurysm She has been to a vascular surgeon in the past and would like a referral to establish with a new one She stopped all her meds other than thyroid and baby aspirin She smokes 1/2 PPD No LMP recorded. ALLERGIES No Known Allergies Current Outpatient Medications Medication Sig Dispense Refill levothyroxine (SYNTHROID) 100 mcg tablet Take 100 mcg by mouth daily before breakfast. aspirin, enteric coated (ASPIRIN, ENTERIC COATED) 81 mg EC tablet Take 162 mg by mouth once daily. No current facility-administered medications for this visit. There is no problem list on file for this patient. Social History Tobacco Use Smoking status: Every Day Current packs/day: 0.50 Types: Cigarettes Smokeless tobacco: Never Vaping Use Vaping status: Former Substance Use Topics Alcohol use: Yes Comment: rarely Drug use: Yes Types: Marijuana Family History Problem Relation Age of Onset Hypertension Mother Hyperlipidemia Mother Heart Mother Intersitial Lung Disease Mother Thyroid Mother Hyperlipidemia Father Hypertension Father Diabetes Father Heart Attack Father Stroke Father Systemic Lupus Erythematosus Sister Cancer Paternal Grandfather stomach Leukemia Maternal Uncle Reviewed past medical history, family history and surgeries. All medications and supplements were reviewed with the patient. REVIEW OF SYSTEMS GENERAL: No weight loss, malaise or fevers HEENT: Negative for frequent or significant headaches, No changes in hearing or vision, no nose bleeds or other nasal problems NECK: Negative for lumps, goiter, pain and significant neck swelling RESPIRATORY: Negative for cough, hemoptysis, wheezing, COPD, dyspnea or shortness of breath CARDIOVASCULAR: Negative for chest pain, leg swelling, hypertension, CHF or palpitations GI: No nausea, vomiting, or diarrhea : No history of dysuria, frequency or incontinence MUSCULOSKELETAL: Negative for joint pain or swelling, back pain or muscle pain SKIN: Negative for lesions, rash, and itching PSYCH: Negative for sleep disturbance, mood disorder and recent psychosocial stressors HEMATOLOGY/LYMPHOLOGY: Negative for prolonged bleeding, bruising easily or swollen nodes ENDOCRINE: Negative for cold or heat intolerance, polyuria, polydipsia and goiter NEURO: tremors, numbess PHYSICAL EXAMINATION: BP 118/72 Pulse (!) 58 Temp 36.5 C (97.7 F) Resp 16 Ht 152.4 cm (5') Wt 54 kg (119 lb) SpO2 98% BMI 23.24 kg/m General appearance: Well appearing, alert, in no acute distress, well-hydrated, well nourished. Skin: Skin color, texture, turgor normal, no suspicious rashes or lesions Head: Normocephalic, no masses, lesions, tenderness or abnormalities Eyes: Anicteric sclera. Pupils are equally round and reactive to light. Extraocular movements are intact. Ears: External ears normal, canals clear Nose/Sinuses: Nares normal, septum midline, mucosa normal, no drainage or sinus tenderness Oropharynx: Lips, mucosa, and tongue normal, teeth and gums normal, oropharynx normal Neck: Supple, no adenopathy; thyroid symmetric, normal size, no bruits Back: Normal exam Lungs: Lungs clear to auscultation. No wheezing, rhonchi, rales. Heart: RRR without murmur, gallop, or rubs. No ectopy Abdomen: Normal abdominal exam, Abdomen soft, non-tender. Bowel sounds normal. No masses, organomegaly Extremities: No deformities, edema, skin discoloration, clubbing or cyanosis. Good capillary refill. Musculoskeletal: No joint swelling, deformity, or tenderness Peripheral pulses: Normal Neuro: Gait normal. Reflexes normal and symmetric. Sensation grossly intact. ASSESSMENT/PLAN: 1. Hypothyroidism, acquired - ICD9: 244.9, ICD10: E03.9 (primary diagnosis) - Instructed patient on importance of taking on an empty stomach either first thing in the morning or at bedtime. - LEVOTHYROXINE 100 MCG TABLET - THYROID STIMULATING HORMONE 2. Claudication (HCC) - ICD9: 443.9, ICD10: I73.9 - CONSULT TO VASCULAR SURGERY 3. Asymptomatic menopause - ICD9: V49.81, ICD10: Z78.0 - DXA-AXIAL SKELETON 4. Encounter for screening mammogram for breast cancer - ICD9: V76.12, ICD10: Z12.31 - BRAD SCREENING W RONALD 5. Screening for lipid disorders - ICD9: V77.91, ICD10: Z13.220 - LIPID PANEL BASIC 6. Encounter for immunization - ICD9: V03.89, ICD10: Z23 - INFLUENZA VACCINE, PRSV FREE, AGE 65+ YR, HIGH DOSE, TRIVALENT (FLUZONE HIGH-DOSE) - IMADM PRQ ID SUBQ/IM NJXS 1 VACC - PNEUMOCOCCAL VACCINE, 20 VALENT (PREVNAR 20) 7. Screening for endocrine, metabolic and immunity disorder - ICD9: V77.99, ICD10: Z13.29, Z13.228, Z13.0 - COMPREHENSIVE METABOLIC PANEL 8. Screening for blood disease - ICD9: V78.9, ICD10: Z13.0 - COMPLETE BLOOD COUNT Marianela Edwards DO documented in this encounter [facility] 06-25-2024 Instructions Gloria Srinivasan MA - 06/25/2024 1:25 PM EST BONE MINERAL DENSITY PATIENT INSTRUCTIONS ========= Bone mineral density testing measures the amount of calcium in certain parts of your bones. This information determines how strong your bones are. The test is used to detect osteoporosis, a disease in which the bone's mineral content and density are low, increasing a person's risk of fractures. The lumbar spine (lower back) and the hip are the skeletal sites usually examined. For the test, remember that: 1. You cannot take this test if you are . 2. Eat a normal diet on the day of the test. 3. Take your medications as you normally would. 4. DO NOT take calcium supplements (such as Tums) for 24 hours before the test. 5. On the day of the test, leave valuables (jewelry or credit cards) at home. 6. The test should be performed prior to oral, rectal or IV contrast studies, or at least 7 days after any of these studies. For the test, you may be asked to wear a hospital gown. You will lie on your back, on a padded table, in a comfortable position. Generally, you can resume your usual activities immediately. documented in this encounter [facility] 03-17-2024 Note [facility] Medical Records Department [address] [place] [id number] Discharge Summary 03/17/24 1049 MR#: [id number] Acct: [id number] Name: MAUREEN ANSARI ALYSHA Rep #: [id number] : [id number] 68 From: Sukhi Forbes DO PCP: Care Physician,No Primary Status:ADM IN Location: [facility] [place] [id number] Providers Date of Admission: 03/07/24 Primary Care Physician: No Primary Care Phys Consultations 03/07/24 23:02 Consult: Orthopedics Routine Consulting Provider: Jaziel Lin Reason for Consult: Fall, LLE tibial plateau fx EMERGENT Consult: No MD Notified: Yes Date Notified: 03/07/24 Time Notified: 21:23 Method of Notification: ED Physician Initiated Reason For Visit: FALL, L TIBIAL PLATEAU FX Diagnosis Discharge Diagnosis (1) Fall: Status: Acute Code(s): W19.XXXA - Unspecified fall, initial encounter (2) Fracture of left tibial plateau: Status: Acute Code(s): S82.142A - Displaced bicondylar fracture of left tibia, initial encounter for closed fracture Qualifiers: Encounter type: initial encounter Fracture type: closed Qualified Code(s): S82.142A - Displaced bicondylar fracture of left tibia, initial encounter for closed fracture (3) Fracture of fibula, proximal: Status: Acute Code(s): S82.839A - Other fracture of upper and lower end of unspecified fibula, initial encounter for closed fracture Plan acute comminuted intra-articular fracture of the lateral tibial plateau * with extension to the medial aspect of the medial tibial plateau with lateral hemarthroses as well as a commuted fracture of the proximal fibula: * Seen by orthopedics, who feels that these are nonsurgical at this time. Recommending nonweightbearing for 6 weeks and maintenance of a knee immobilizer. Patient to follow-up with orthopedics in about 1 week's time. Constipation * On MiraLAX, scheduled. Received as needed Dulcolax. Chronic conditions * Hypertension: Amlodipine 10. Add lisinopril 10mg/d. * Hyperlipidemia: continue patient on statin therapy * Hypothyroidism: patient on levothyroxine regimen. TSH high 41.4 but free T4 normal 1.05. * PAD: Status post right CEA, will continue aspirin, statin, hypertensive regimen DVT prophylaxis: Recommend twice daily dosing of aspirin until she can have the immobilizer taken off. Disposition: Now to home with outpatient therapy Medications at Discharge Home Medications amlodipine 10 mg tablet 10 mg PO DAILY htn 03/07/24 atorvastatin 80 mg tablet 80 mg PO DAILY hld 03/07/24 levothyroxine 100 mcg tablet 100 mcg PO DAILY thyroid 03/07/24 melatonin 3 mg tablet 3 mg PO QHS PRN PRN Insomnia #0 tabs 03/12/24 acetaminophen 500 mg capsule 1,000 mg (2 x 500 mg) PO Q8H PRN PRN fever or pain #30 caps 03/17/24 aspirin 81 mg capsule 81 mg PO BIDCM blood thinner #30 caps 03/17/24 lisinopril 10 mg tablet 10 mg PO DAILY #30 tabs 03/17/24 oxycodone 5 mg capsule 5 mg PO Q4H PRN pain 3 days #18 caps 03/17/24 Hospital Course Operations None Procedures None Summary of Care Provided Minutes Spent on Discharge: 33 Hospital Course: Patient sustained a left tibial and fibula fracture. Seen by orthopedics and just recommended immobilizer and nonweightbearing for the time being. Plans were to get her into a fdc facility though he had issues regards to the patient having [employer] insurance. Patient is now residing here permanently living with her sister. Plan is for her to go to fdc facility but patient is feeling much better at this time and will be going home with outpatient therapy. Patient advised to take aspirin 381 mg twice daily until the immobilizer has been taken off. Weight / BMI Weight Weight: 78.3 kg Body Mass Index (BMI) 33.9 ABG / Lab / Microbiology Data 03/12/24 05:40 03/12/24 05:40 D/C Instructions Discharge Diet: No restrictions Discharge Activity: Use Walker Weight Bearing Status: No weight bearing (left leg. immobilizer when up. ) Meaningful Use Info Meaningful Use Meaningful Use Diagnoses (Choose all that apply): None applicable Ischemic Stroke Statin Dosing Therapy Reference: STATIN DOSE THERAPY REFERENCE: * Patients > 75 years receive moderate or high dose statin therapy. * Patients 75 years or YOUNGER should receive HIGH intensity statin dose unless contraindicated. You will be required to document reason for non-treatment if statin daily dose does not meet guidelines. HIGH DOSE STATIN THERAPY DAILY Atorvastatin > than or = to 40 mg Rosuvastatin > than or = to 20 mg Amlodipine + Atorvastatin > than or = to 2.5/40 mg Ezetimibe + Simvastatin 10/80 mg Simvastatin 80mg Discharge Plan Admission Admit Date/Time: 03/07/24 21:23 Primary Reason for Your Visit: tib/fib fracture. Attending Provider: Sukhi Forbes (more content not included)... [facility] Evaluation note Diagnosis Hypothyroidism, acquired- Primary Unspecified hypothyroidism Claudication (HCC) Peripheral vascular disease, unspecified Asymptomatic menopause Encounter for screening mammogram for breast cancer Screening for lipid disorders Encounter for immunization Need for other specified prophylactic vaccination against single bacterial disease Screening for endocrine, metabolic and immunity disorder Screening for blood disease Screening for unspecified disorder of blood and blood-forming organs Well adult exam Routine general medical examination at a health care facility [facility] Diagnosis Hypothyroidism, acquired Unspecified hypothyroidism [facility] Diagnosis Symptomatic varicose veins of both lower extremities- Primary Varicose veins of lower extremities with other complications Claudication in peripheral vascular disease (HCC) Peripheral vascular disease, unspecified Primary hypertension Unspecified essential hypertension [facility] Diagnosis Asymptomatic menopause [facility] Diagnosis Encounter for screening mammogram for breast cancer [facility]* Diagnosis Hypothyroidism, acquired- Primary Unspecified hypothyroidism documented in this encounter [facility] note* Diagnosis Peripheral vascular disease (HCC)- Primary Peripheral vascular disease, unspecified Screening for nephropathy documented in this encounter [facility] note* Diagnosis Peripheral vascular disease Peripheral vascular disease, unspecified documented in this encounter [facility] note* Diagnosis Age-related osteoporosis without current pathological fracture- Primary Senile osteoporosis documented in this encounter [facility] note* Diagnosis Hypertension, essential- Primary Unspecified essential hypertension documented in this encounter [facility] note* Diagnosis Hypothyroidism, acquired- Primary Unspecified hypothyroidism documented in this encounter [facility] for visit Narrative* Diagnostic Procedure Only (Routine) - Closed Specialty Diagnoses / Procedures Referred By Mayda green Referred To Contact XR IMAGING Diagnoses Asymptomatic menopause Procedures DXA-AXIAL SKELETON DXA BONE DENSITY STUDY / SITES AXIAL SKEL Marianela Edwards, DO [address] [place] [address] Phone: tel: fax: [place] [address] Referral ID Status Reason Start Date Expiration Date V isits Requested Visits Authorized [id number] Closed Auto-Generate d Referral 07/06/2024 07/03/2025 1 1 [facility] for visit Narrative* Diagnostic Procedure Only (Routine) - Closed Specialty Diagnoses / Procedures Referred By Mayda green Referred To Contact [facility] Diagnoses Encounter for screening mammogram for breast cancer Procedures BRAD SCREENING W RONALD SCREENING DIGITAL BREAST TOMOSYNTHESIS BI SCREENING MAMMOGRAPHY BI 2-VIEW BREAST INC CAD Marianela Edwards, DO [address] [place] [address] Phone: tel: fax: [facility] [address] [place] [address] Referral ID Status Reason Start Date Expiration Date V isits Requested Visits Authorized [id number] Closed Auto-Generate d Referral 06/25/2024 07/25/2025 1 1 [facility] for visit Narrative* MRI/CT (Routine) - New Request Specialty Diagnoses / Procedures Referred By Mayda green Referred To Contact CT IMAGING Diagnoses Peripheral vascular disease Procedures CTA ABD/PEL LOWER EXTREM W IVCON CTA ABDL AORTA&BI ILIOFEM W/CONTRAST&POSTP Argenis Nagy, DO [address] [place] [address] Phone: tel: fax: [facility] [place] [address] Referral ID Status Reason Start Date Expiration Date Visits Requested Visits Authorized [id number] New Request Auto-Genera isabel Referral Patient Cleared - Admin/Chair man/Directo r advise to proceed or did not respond 09/25/2024 10/25/2025 1 0 [facility] Summary Purpose Family History No Family History Records FoundNo Family History Records FoundNo Family History Records FoundNo Family History Records FoundNo Family History Records FoundNo Family History Records Found Advance Directives No Advanced Directives Records Found Date Activated Date Inactivated Comments 07/09/2024 12:08 AM 07/10/2024 2:43 PM Question Answer Comments Full Code Order Discussed With: Patient Date Activated Date Inactivated Comments 07/09/2024 12:08 AM 07/10/2024 2:43 PM Question Answer Comments Full Code Order Discussed With: Patient Reason for Referral Specialty Diagnoses / Procedures Referred By Contac t Referred To Contact Vascular Surgery Diagnoses Claudication (HCC) Procedures CONSULT TO VASCULAR SURGERY OFFICE/OUTPATIENT NEW HIGH MDM 60 MINUTES Marianela Edwadrs, DO [address] [place] [address] Argenis Nagy, DO [address] [address] Referral ID Status Reason Start Date Expiration Date Visits Requested Visits Authorized [id number] Pending Review PCP Requested Referral 06/25/2025 1 1 Specialty Diagnoses / Procedures Referred By Contac t Referred To Contact XR IMAGING Diagnoses Asymptomatic menopause Procedures DXA-AXIAL SKELETON DXA BONE DENSITY STUDY 1/> SITES AXIAL SKEL Marianela Edwards DO [address] [place] [address] [place] [address] Referral ID Status Reason Start Date Expiration Date Visits Requested Visits Authorized [id number] Authorized Auto-Generat ed Referral 07/06/2024 07/03/2025 1 1 Specialty Diagnoses / Procedures Referred By Contac t Referred To Contact [facility] Diagnoses Encounter for screening mammogram for breast cancer Procedures BRAD SCREENING W RONALD SCREENING DIGITAL BREAST TOMOSYNTHESIS BI SCREENING MAMMOGRAPHY BI 2-VIEW BREAST INC CAD Grace, Marianela Perez, DO [address] [place] [address] [facility] [address] [place] [address] Referral ID Status Reason Start Date Expiration Date Visits Requested Visits Authorized [id number] Pending Review Auto-Generat ed Referral 07/25/2025 1 1 Specialty Diagnoses / Procedures Referred By Contac t Referred To Contact Cardiology Diagnoses Primary hypertension Procedures CONSULT TO CARDIOLOGY OFFICE/OUTPATIENT [facility] 60 MINUTES Argenis Nagy, DO [address] [place] [address] Referral ID Status Reason Start Date Expiration Date Visits Requested Visits Authorized [id number] Authorized PCP Requested Referral 07/31/2024 07/31/2025 1 1 Specialty Diagnoses / Procedures Referred By Contac t Referred To Contact [facility] [place] Diagnoses Claudication in peripheral vascular disease (HCC) Procedures PVR LEG W/EXC RAMAN VAS LAB N-INVAS PHYSIOLOGIC STD LXTR ART COMPL BI Argenis Nagy, DO [address] [place] [address] [facility] [address] [address] Referral ID Status Reason Start Date Expiration Date Visits Requested Visits Authorized [id number] Authorized Auto-Generat ed Referral 07/31/2024 07/31/2025 1 1 Specialty Diagnoses / Procedures Referred By Contac t Referred To Contact [facility] Diagnoses Symptomatic varicose veins of both lower extremities Procedures US VENOUS INCOMPETENCY RAMAN VAS LAB DUP-SCAN XTR VEINS COMPLETE BILATERAL STUDY Argenis Nagy DO [address] [place] [address] [facility] [address] [address] Referral ID Status Reason Start Date Expiration Date Visits Requested Visits Authorized [id number] Authorized Auto-Generat ed Referral 07/31/2024 07/31/2025 1 1 Additional Source Comments INFORMATION SOURCE (unrecogn ized section and content) DATE CREATED AUTHOR 06/27/2024 [facility] DATE CREATED AUTHOR AUTHOR'S ORGANIZ ATION 07/15/2024 [facility] DATE CREATED AUTHOR AUTHOR'S ORGANIZ ATION 10/21/2024 [facility] DATE CREATED AUTHOR AUTHOR'S ORGANIZ ATION 11/17/2024 [facility] DATE CREATED AUTHOR AUTHOR'S ORGANIZ ATION 12/04/2024 [facility] DATE CREATED AUTHOR AUTHOR'S ORGANIZ ATION 12/04/2024 [facility] Source Comments (unrecognize d section and content) In the event this informatio n is protected by the Federal Confidentiality of Alcohol and Drug Abuse Patient Records regulations: The Federal rules restrict any use of the information to criminally investigate or prosecute any alcohol or drug abuse patient.[facility] the event this information is protected by the Federal Confidentiality of Alcohol and Drug Abuse Patient Records regulations: The Federal rules restrict any use of the information to criminally investigate or prosecute any alcohol or drug abuse patient.[facility] the event this information is protected by the Federal Confidentiality of Alcohol and Drug Abuse Patient Records regulations: The Federal rules restrict any use of the information to criminally investigate or prosecute any alcohol or drug abuse patient.[facility] System[facility] the event this information is protected by the Federal Confidentiality of Alcohol and Drug Abuse Patient Records regulations: The Federal rules restrict any use of the information to criminally investigate or prosecute any alcohol or drug abuse patient.[facility] the event this information is protected by the Federal Confidentiality of Alcohol and Drug Abuse Patient Records regulations: The Federal rules restrict any use of the information to criminally investigate or prosecute any alcohol or drug abuse patient.[facility] System[facility] the event this information is protected by the Federal Confidentiality of Alcohol and Drug Abuse Patient Records regulations: The Federal rules restrict any use of the information to criminally investigate or prosecute any alcohol or drug abuse patient.[facility] System[facility] the event this information is protected by the Federal Confidentiality of Alcohol and Drug Abuse Patient Records regulations: The Federal rules restrict any use of the information to criminally investigate or prosecute any alcohol or drug abuse patient.[facility] the event this information is protected by the Federal Confidentiality of Alcohol and Drug Abuse Patient Records regulations: The Federal rules restrict any use of the information to criminally investigate or prosecute any alcohol or drug abuse patient.[facility] System[facility] the event this information is protected by the Federal Confidentiality of Alcohol and Drug Abuse Patient Records regulations: The Federal rules restrict any use of the information to criminally investigate or prosecute any alcohol or drug abuse patient.[facility] System[facility] the event this information is protected by the Federal Confidentiality of Alcohol and Drug Abuse Patient Records regulations: The Federal rules restrict any use of the information to criminally investigate or prosecute any alcohol or drug abuse patient.[facility] System[facility] the event this information is protected by the Federal Confidentiality of Alcohol and Drug Abuse Patient Records regulations: The Federal rules restrict any use of the information to criminally investigate or prosecute any alcohol or drug abuse patient.[facility] System[facility] the event this information is protected by the Federal Confidentiality of Alcohol and Drug Abuse Patient Records regulations: The Federal rules restrict any use of the information to criminally investigate or prosecute any alcohol or drug abuse patient.[facility] System[facility] the event this information is protected by the Federal Confidentiality of Alcohol and Drug Abuse Patient Records regulations: The Federal rules restrict any use of the information to criminally investigate or prosecute any alcohol or drug abuse patient.[facility] System[facility] the event this information is protected by the Federal Confidentiality of Alcohol and Drug Abuse Patient Records regulations: The Federal rules restrict any use of the information to criminally investigate or prosecute any alcohol or drug abuse patient.[facility] SystemIn the event this information is protected by the Federal Confidentiality of Alcohol and Drug Abuse Patient Records regulations: The Federal rules restrict any use of the information to criminally investigate or prosecute any alcohol or drug abuse patient.[facility] SystemIn the event this information is protected by the Federal Confidentiality of Alcohol and Drug Abuse Patient Records regulations: The Federal rules restrict any use of the information to criminally investigate or prosecute any alcohol or drug abuse patient.[facility] SystemIn the event this information is protected by the Federal Confidentiality of Alcohol and Drug Abuse Patient Records regulations: The Federal rules restrict any use of the information to criminally investigate or prosecute any alcohol or drug abuse patient.[facility] SystemIn the event this information is protected by the Federal Confidentiality of Alcohol and Drug Abuse Patient Records regulations: The Federal rules restrict any use of the information to criminally investigate or prosecute any alcohol or drug abuse patient.[facility] SystemIn the event this information is protected by the Federal Confidentiality of Alcohol and Drug Abuse Patient Records regulations: The Federal rules restrict any use of the information to criminally investigate or prosecute any alcohol or drug abuse patient.[facility] Reason for Visit (unrecogniz ed section and content) Reason Comments New Patient Establish care previ ous pcp was in [place], but did not really have a primary out there. Would like to discuss medications, needs thyroid medication refill. Would like a referral to cardiology for the back of her legs due to the veins, has had blockages in the past. Would like to go to [facility]. Hands shake and she is numb all the time. Had a nerve conduction test in [place]. Feels like she is losing oxygen in her legs, are tired all the time Reason Onset Date Comments Transition Of Care 07/11/2024 [facility] 07/10/24 Reason Onset Date Comments Refill Request 07/24/2024 Reason Onset Date Comments Transition Of Care 07/25/2024 TCM f/u - Karla ointment Reason Comments Lab Orders Reason Comments New Patient Reason Comments Refill Request Reason Comments Established Patient Reason Comments Patient Update Reason Onset Date Comments Results 10/03/2024 Care Teams (unrecognized sec tion and content) Manager Power Relationship Specialty Start Date End Date Marianela Edwards DO [address] [place] [address] PCP - General Family Medicine 06/25/24 Manager Power Relationship Specialty Start Date End Date Marianela Edwards DO [address] [place] [address] PCP - General Family Medicine 07/08/24 Marianela Edwards DO [address] [place] [address] Family Medicine 07/08/24 Ana Guerra, TESHA Primary Care Promotional Advertising Assistant 07/11/24 Manager Power Relationship Specialty Start Date End Date Marianela Edwards DO [address] [place] [address] PCP - General Family Medicine 07/08/24 Marianela Edwards DO [address] [place] [address] Family Medicine 07/08/24 Ana Guerra RN Primary Care Promotional Advertising Assistant 07/11/24 Manager Power Relationship Specialty Start Date End Date Marianela Edwards DO [address] [place] [address] PCP - General Family Medicine 07/08/24 Marianela Edwards DO [address] [place] [address] Family Medicine 07/08/24 Ana Guerra, TESHA Primary Care Promotional Advertising Assistant 07/11/24 Manager Power Relationship Specialty Start Date End Date Marianela Edwards DO [address] [place] [address] PCP - General Family Medicine 07/08/24 Marianela Edwards DO [address] [place] [address] Family Medicine 07/08/24 Ana Guerra, RN Primary Care Promotional Advertising Assistant 07/11/24 Manager Power Relationship Specialty Start Date End Date Marianela Edwards DO [address] [place] [address] PCP - General Family Medicine 07/08/24 Marianela Edwards DO [address] [place] [address] Family Medicine 07/08/24 Manager Power Relationship Specialty Start Date End Date Marianela Edwards DO [address] [place] [address] PCP - General Family Medicine 07/08/24 Marianela Edwards DO [address] [place] [address] Family Medicine 07/08/24 Manager Power Relationship Specialty Start Date End Date Marianela Edwards DO [address] [place] [address] PCP - General Family Medicine 07/08/24 Marianela Edwards DO [address] [place] [address] Family Medicine 07/08/24 Manager Power Relationship Specialty Start Date End Date Marianela Edwards DO [address] [place] [address] PCP - General Family Medicine 07/08/24 Marianela Edwards DO [address] [place] [address] Family Medicine 07/08/24 Manager Power Relationship Specialty Start Date End Date Marianela Edwards DO [address] [place] [address] PCP - General Family Medicine 07/08/24 Marianela Edwards DO [address] [place] [address] Family Medicine 07/08/24 Manager Power Relationship Specialty Start Date End Date Marianela Edwards DO [address] [place] [address] PCP - General Family Medicine 07/08/24 Marianela Edwards DO [address] [place] [address] Family Medicine 07/08/24 Manager Power Relationship Specialty Start Date End Date Marianela Edwards DO [address] [place] [address] PCP - General Family Medicine 07/08/24 Marianela Edawrds DO [address] [place] [address] Family Medicine 07/08/24 Manager Power Relationship Specialty Start Date End Date Marianela Edwards DO [address] [place] [address] PCP - General Family Medicine 07/08/24 Marinaela Edwards DO [address] [place] [address] Family Medicine 07/08/24 Manager Power Relationship Specialty Start Date End Date Marianela Edwards DO [address] [facility] [place] [address] PCP - General [facility] Medicine 07/08/24 Marianela Edwards DO [address] [place] [address] Family Medicine 07/08/24 Manager Power Relationship Specialty Start Date End Date Marianela Edwards DO [address] [facility] [place] [address] PCP - General [facility] Medicine 07/08/24 Marianela Edwards DO [address] [facility] [place] [address] Family Medicine 07/08/24 FOR RECORDS PERTAINING TO PATIENTS WHO ARE OR HAVE BEEN ENROLLED IN A CHEMICAL DEPENDENCY/SUBSTANCEABUSE PROGRAM, SOME INFORMATION MAY BE OMITTED. This clinical summary was aggregated from multiple sources. Caution should be exercised in using it in the provision of clinical care. This summary normalizes information from multiple sources, and as a consequence, information in this document may materially change the coding, format and clinical context of patient data. In addition, data may be omitted in some cases. CLINICAL DECISIONS SHOULD BE BASED ON THE PRIMARY CLINICAL RECORDS. [employer] [facility]. provides no warranty or guarantee of the accuracy or completeness of information in this document.
[2024-12-11] MEDS: Ondansetron 4 MG/2 ML Vial IV (01:33)
[2024-12-11] MEDS: Furosemide 40 MG/4 ML Vial IV ×3 (02:18→18:09)
--- NOTE | 2024-12-11 02:33 | PCM.HP.STD ---
HPI - General General Date of Admission: 12/11/24 Date of Service: 12/11/24 Chief Complaint: Shortness of breath HPI Narrative GUILLERMINA BARRON, is a 69 F who presents to the emergency room with chief complaint of shortness of breath. Patient has become progressively short of breath over the past several days. Patient has significant past medical history of peripheral vascular disease and severe carotid disease with 100% occlusion of the left and surgical intervention done to her right carotid artery. She is a smoker. She had been living in [place] and moved here to be near her sister and previously had a leg fracture and was struggling to regain ambulation with rehab for prolonged period of time and reportedly had lower extremity peripheral vascular disease as well. In the emergency room patient was tachypneic showing signs of impending respiratory failure. Laboratory studies reveal white blood cell count 11.3, hemoglobin 13.7, hematocrit 40.4, platelets 377, sodium 137, potassium 3.9, chloride 106, bicarb 18.3, BUN 13, creatinine 1.08, glucose 126, troponin 1980, [place] [address]. CT angiogram of the chest was negative for pulmonary embolism but did show moderate bilateral pleural effusions. Chest x-ray revealed cardiomegaly. In the emergency room her respiratory rate was as high as 40 and BiPAP therapy was supplemental oxygen was initiated and patient responded along with furosemide IV in the emergency room. A bedside ultrasound was performed in the emergency room which was negative for pericardial effusion. Despite her known peripheral vascular disease and carotid artery disease patient seems surprised to have cardiac issues at this time. Due to impending respiratory failure need for BiPAP therapy along with markedly elevated troponin and natruretic peptide patient will be admitted to the intensive care unit for further management of congestive heart failure. [facility] Medical History (Updated 12/11/24 @ 02:[address] Francis Bojorquez MD) Carpal tunnel syndrome on right Closed displaced bicondylar fracture of left tibia with routine healing CKD (chronic kidney disease) Cannabis use disorder HLD (hyperlipidemia) Tobacco use Carotid arterial disease Hypertension Home Medications ?Medication ?Instructions ?Recorded ?Last Taken ?Type amlodipine 10 mg tablet 10 mg PO DAILY htn 03/07/24 12/10/24 History cilostazol 50 mg tablet 50 mg PO BID 10/18/24 12/10/24 History levothyroxine 112 mcg tablet 112 mcg PO DAILY 12/10/24 12/10/24 History Allergy/AdvReac Type Severity Reaction Status Date / Time No Known Allergies Allergy Verified 12/10/24 23:26 Family History Mother , 89 Hypertension Pulmonary fibrosis Heart disease Glaucoma Father , 80 Hypertension Heart disease Diabetes Surgical History History of CEA (carotid endarterectomy) History of hip surgery Social History household members: family current occupational status: retired pets and animals: No Smoking Status: Current every day smoker tobacco type: cigarettes alcohol intake: never substance use type: marijuana caffeine: Yes Type: coffee Number of servings: 1 do you feel safe at home: Yes ROS Constitutional Constitutional: Reports chills and weakness; Denies fever(s) Eyes Eyes: Denies blurry vision ENT HEENT: Denies abnormal hearing Cardiovascular Cardiovascular: Denies chest pain Respiratory/Chest Respiratory/Chest: Reports shortness of breath at rest Gastrointestinal Gastrointestinal: Denies abdominal pain Genitourinary Genitourinary: Denies dysuria Musculoskeletal Musculoskeletal: Denies back pain Integumentary Integumentary: Denies dry skin or wounds Neurologic Neurologic: Denies abnormal speech Psychiatric Psychiatric: Denies anxiety Vital Signs Vital Signs Vital Signs: 12/10/24 23:24 12/10/24 23:26 12/10/24 23:34 Temperature 98.2 F 98.2 F Temperature Source Oral Oral Pulse Rate 97 88 Respiratory Rate 16 16 Respiratory Effort Short of Breath Respiratory Pattern Blood Pressure 117/65 117/65 Blood Pressure Mean 82 82 Pulse Ox 92 95 Oxygen Delivery Method Room Air Room Air Room Air Oxygen Flow Rate (L/min) Fraction of Inspired Oxygen (FIO2) 12/10/24 23:55 12/11/24 00:26 12/11/24 00:30 Temperature 98.2 F Temperature Source Oral Pulse Rate 91 Respiratory Rate 14 Respiratory Effort Respiratory Pattern Blood Pressure 122/70 H Blood Pressure Mean 87 Pulse Ox 92 92 Oxygen Delivery Method Room Air Room Air Nasal Cannula Oxygen Flow Rate (L/min) 2 Fraction of Inspired Oxygen (FIO2) 12/11/24 01:00 12/11/24 01:00 12/11/24 01:05 Temperature 98.2 F Temperature Source Oral Pulse Rate 100 Respiratory Rate 26 H Respiratory Effort Respiratory Pattern Blood Pressure 126/62 H Blood Pressure Mean 83 Pulse Ox 84 90 86 Oxygen Delivery Method Room Air Nasal Cannula Nasal Cannula Oxygen Flow Rate (L/min) 3 2 Fraction of Inspired Oxygen (FIO2) 12/11/24 01:32 12/11/24 01:32 12/11/24 01:32 Temperature Temperature Source Pulse Rate Respiratory Rate 26 H Respiratory Effort Respiratory Pattern Blood Pressure Blood Pressure Mean Pulse Ox 95 85 96 Oxygen Delivery Method Bi-pap Nasal Cannula Bi-pap Oxygen Flow Rate (L/min) 6 Fraction of Inspired Oxygen (FIO2) 60 12/11/24 01:32 12/11/24 01:32 12/11/24 02:19 Temperature 98.2 F Temperature Source Temporal Pulse Rate 99 84 Respiratory Rate 33 H 24 H Respiratory Effort Respiratory Pattern Tachypnea Blood Pressure 127/75 H Blood Pressure Mean 92 Pulse Ox 98 97 96 Oxygen Delivery Method Bi-pap Bi-pap Oxygen Flow Rate (L/min) Fraction of Inspired Oxygen (FIO2) 60 60 60 12/11/24 02:27 Temperature 98.2 F Temperature Source Pulse Rate 86 Respiratory Rate 25 H Respiratory Effort Respiratory Pattern Blood Pressure 127/75 H Blood Pressure Mean 92 Pulse Ox 87 Oxygen Delivery Method Oxygen Flow Rate (L/min) Fraction of Inspired Oxygen (FIO2) Weight Weight: 124 lb 12.506 oz Body Mass Index (BMI) 24.3 Physical Exam Const oriented x3 General Appearance: cooperative HEENT normocephalic and head/scalp atraumatic Eyes PERRL Neck no lymphadenopathy Lymph Lymphatic: no lymphadenopathy noted Resp Effort and Inspection: tachypneic and respiratory distress Auscultation: diminished lung sounds bilateral; Negative for rales, rhonchi or wheezes Cardio regular rate, regular rhythm, S1 normal heart sound and S2 normal heart sound GI normal to inspection, nondistended, normoactive bowel sounds Extremity no calf tenderness Skin General Skin Exam: no breakdown Neuro no focal motor deficits and no sensory deficits noted Speech: speech normal Psych thought process normal, cooperative and affect normal Results Lab / Micro Data 12/10/24 23:45 12/10/24 23:45 Labs: Laboratory Results - last 24 hr 12/10/24 23:45: WBC 11.3 H, RBC 4.45, Hgb 13.7, Hct 40.4, MCV 90.8, MCH 30.8, MCHC 33.9, RDW Std Deviation 43.1, RDW Coeff of Luis 13.2, Plt Count 377, MPV 10.1, Immature Gran % (Auto) 1.700 H, Neut % (Auto) 66.3, Lymph % (Auto) 16.5 L, [place] % (Auto) 11.4 H, Eos % (Auto) 3.1, Baso % (Auto) 1.0, Absolute Neuts (auto) 7.5, Absolute Lymphs (auto) 1.87, Nucleated RBC % 0, Sodium 137, Potassium 3.9, Chloride 106, Carbon Dioxide 18.3 L, Anion Gap 12, BUN 13, Creatinine 1.08, Estim Creat Clear Calc 39.30 L, Est GFR (MDRD) Non-Af 56 L, BUN/Creatinine Ratio 11.8, Glucose 126 H, Calcium 8.9, Troponin T High Sens 1980 H*, NT pro BNP II 7545 H Imaging Radiology Impression Chest X-Ray 12/10/24 23:52 IMPRESSION: Cardiomegaly and CHF changes. Follow-up is advised [facility] 12/11/24 00:48 IMPRESSION: No CT evidence of pulmonary embolus or aortic dissection. Moderate bilateral pleural effusions. Passive atelectatic airspace disease/consolidations of the lower lobes. Moderate interstitial pulmonary edema. Mild alveolar pulmonary edema. Mildly prominent mediastinal lymph nodes are noted with the largest measuring 1.4 cm. Small sliding hiatal hernia. Dilated supra hepatic IVC suggestive of dysfunction of the right cardiac cavities. Bilateral benign chronic hypertrophy of the adrenal glands. Reading [facility] Assessment & Plan Assessment/Plan (1) Congestive heart failure: (2) Elevated troponin: (3) Respiratory distress, acute: (4) Peripheral vascular disease: (5) Smoking 1/2 pack a day or less: PLAN: Plan 1 acute respiratory distress?admit patient to intensive care unit, continue BiPAP therapy initiated in the emergency room will add furosemide 40 mg twice daily, repeat CBC BMp in a.m. 2. Congestive heart failure?consult cardiology, obtain echocardiogram, due to elevated troponins will continue to cycle cardiac markers. 3. Known peripheral vascular disease with hyperlipidemia?continue statin medication we will add Lovenox 1 mg/kg IV every 12 hours as this would be indicated in the setting of elevated troponin 4. DVT prophylaxis?low molecular weight heparin as above 5. Smoking?cessation encouraged Charges/Coding Visit Charges Inpatient E&M: 29392 Init Hosp L3
[2024-12-11 02:52] LABS: Troponin T High Sens 2 HR 1735 ng/L (<=14)
[2024-12-11] MEDS: Enoxaparin 60 MG/0.6 ML Syringe SC (02:57)
--- OUTSIDE RECORDS SUMMARY | 2024-12-11 03:11 | XMS RPT_ITS | CCD ---
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 Name Role Phone GRACE, MARIANELA Perez Attending Unavailable SHEETS, MARIANELA C Primary Care Unavailable SELF Referring Unavailable Sheets DO, Marianela C Primary Care Provider [phone] Sheets DO, Marianela C Primary Care Provider Sheets DO, Marianela C Unavailable [phone] Ana Guerra RN Unavailable [phone] PIETER LEA Admitting Unavailable ALYSIA ELAM Referring [...] Unava ilable Wapenski, Brayden Attending Unavailable Jaziel Lin Referring Unavailable Care Physician, No Primary Primary [...] 12-03-2024 TSH Qn 0.116 m[IU]/L Low 0.270-4.200 [facility] Comment on above: Order Comment: Speci men Type: BLOOD SPECIMEN Ordering Facility: [facility] Address: [address] [place] [address] Performed By: #### 2 4331-1 #### [facility] CLIA [id number] [address] [place] [address] [place] [facility] CLIA [id number] [address] [place] [address] [place] #### 3016-3 #### [facility] CLIA [id number] [address] [place] [address] [place] Spine Cervical (Routine)on 0 11-19-2024 Spine Cervical (Routine) [facility] Imaging Services [facility] [place] [address] Spine Cervical (Routine) MR#: [id number] Acct: [id number] Name: MINO BARRONMAUREEN ALYSHA Rep #: [id number] : 1955 F 69 From: Ravin Weinstein MD PCP: Care Physician,No Primary Status: REG CLI Study: Spine Cervical (Routine) Date of Exam: Exam# [id number] Ordering Dr: Brayden Underwood MD PROCEDURE: SPINE [...] Brayden Underwood MD; No Primary Care Physician Water/Wastewater Project Engineer: Signed Normal [facility] 11-16-2024 [facility] Telephone (RALEIGHWhimseyboxLE) MAUREEN BARRON ([id number]) 1955 F T Date Time Provider Department [...] [E03.9] Order(s):THYROID STIMULATING HORMONE [SQTSH] Order #: [id number] FUTURE Prescriptions as of 11/16/2024 - amLODIPine [...] Status:Closed by DESIRE MOSS on 11/16/[address] [facility] Lipid 1996 panelon Cholesterol [Mass/Vol] 142 mg/dL Normal <200 [facility] Comment on above: Order Comment: Speci men Type: BLOOD SPECIMEN Ordering Facility: [facility] Address: [address] [place] [address] Result Comment: <200 mg/dL, Desirable 200-239 mg/dL, Borderline high >239 mg/dL, High Performed By: #### 2 4331-1 #### [facility] CLIA [id number] [address] [place] [address] STATES [facility] CLIA [id number] [address] [place] [address] Cholesterol in HDL [Mass/Vol] 53 mg/dL Normal >39 [facility] Comment on above: Order Comment: Cobyi men Type: BLOOD SPECIMEN Ordering Facility: [facility] Address: [address] [place] [address] Result Comment: 40-5 9 mg/dL, Acceptable >59 mg/dL, High: Negative risk factor for coronary heart disease <40 mg/dL, Low: Positive risk factor for coronary heart disease Performed By: #### 2 4331-1 #### [facility] CLIA [id number] [address] [place] [address] STATES OF [facility] CLIA [id number] [address] [place] [address] Cholesterol in LDL [Mass/Vol] 78 mg/dL Normal <100 [facility] Comment on above: Order Comment: Speci men Type: BLOOD SPECIMEN Ordering Facility: [facility] Address: [address] [place] [address] Result Comment: <100 mg/dL, Optimal 100-129 mg/dL, Near optimal/above optimal 130-159 mg/dL, Borderline high 160-189 mg/dL, High >189 mg/dL, Very high Secondary prevention optimal LDL Cholesterol levels are recommended to be <70 mg/dL LDL cholesterol is calculated using the Gill-NIH equation. Performed By: #### 2 4331-1 #### [facility] CLIA [id number] [address] [place] [address] [place] [facility] CLIA [id number] [address] [place] [address] [place] Cholesterol in LDL/Cholesterol in HDL [Mass ratio] 1.47 {ratio} Normal <2.54 [facility] Comment on above: Order Comment: Speci men Type: BLOOD SPECIMEN Ordering Facility: [facility] Address: [address] [place] [address] Result Comment: Refe cooper: 1. National Cholesterol Education Program ATP III Guideline At-A-Glance Quick Desk Reference: National Heart, Lung, and Blood [place]. National Institutes of Health. 2001: NIH Publication No. 01-3305. 2. An International Atherosclerosis Society position paper: global recommendations for the management of dyslipidemia: executive summary, Atherosclerosis. 2014: 232(2):410-413. Performed By: #### 2 4331-1 #### [facility] CLIA [id number] [address] [place] [address] [place] [facility] CLIA [id number] [address] [place] [address] [place] Cholesterol in VLDL [Mass/Vol] 8 mg/dL Normal <30 [facility] Comment on above: Order Comment: Speci men Type: BLOOD SPECIMEN Ordering Facility: [facility] Address: [address] [place] [address] Performed By: #### 2 4331-1 #### [facility] CLIA [id number] [address] [place] [address] [place] [facility] [id number] [address] [place] [address] [place] Cholesterol non HDL [Mass/Vol] 89 mg/dL Normal <130 [facility] Comment on above: Order Comment: Speci men Type: BLOOD SPECIMEN Ordering Facility: [facility] Address: [address] [place] [address] Result Comment: <130 mg/dL, Optimal 130-159 mg/dL, Near optimal/above optimal 160-189 mg/dL, Borderline high 190-219 mg/dL, High >219 mg/dL, Very high Secondary prevention optimal non HDL Cholesterol levels are recommended to be <100 mg/dL Performed By: #### 2 4331-1 #### [facility] CLIA [id number] [address] [place] [address] [place] [facility] CLIA [id number] [address] [place] [address] [place] Cholesterol.total/Cho lesterol in HDL [Mass ratio] 2.68 {ratio} Normal <5.10 [facility] Comment on above: Order Comment: Speci men Type: BLOOD SPECIMEN Ordering Facility: [facility] Address: [address] [place] [address] Performed By: #### 2 4331-1 #### [facility] CLIA [id number] [address] [place] [address] [place] [facility] CLIA [id number] [address] [place] [address] [place] FASTING TIME 12 hrs Normal [facility] Comment on above: Order Comment: Speci men Type: BLOOD SPECIMEN Ordering Facility: [facility] Address: [address] [place] [address] Performed By: #### 2 4331-1 #### [facility] CLIA [id number] [address] [place] [address] [place] [facility] CLIA [id number] [address] [place] [address] [place] Triglyceride [Mass/Vol] 53 mg/dL Normal <150 [facility] Comment on above: Order Comment: Speci men Type: BLOOD SPECIMEN Ordering Facility: [facility] Address: [address] [place] [address] Result Comment: <150 mg/dL, Normal 150-199 mg/dL, Borderline high 200-499 mg/dL, High >499 mg/dL, Very high Performed By: #### 2 4331-1 #### [facility] CLIA [id number] [address] [place] [address] STATES OF [place] [facility] CLIA [id number] [address] [place] [address] CNPNon 11-07-2024 CNPN Telephone (AGFAMPLE) MAUREEN BARRON ([id number]) 1955 F T Date Time Provider Department 11/07/24 MARIANELA EDWARDS During your visit today, we recorded the following information about you: Gloria Srinivasan MA 11/07/2024 4:21 PM Signed Cecy Amaral MICROBIOLOGY LABORATORY MANAGER who was out doing a home assessment on patient left message stating patient's BP today was elevated, left arm 180/88 and right arm 176/84. Patient's sister Leena also left message stating patient is willing to start on a BP medication now as her BP has been elevated for awhile. Requesting script be sent to [facility]. Please advise. MIGUEL Valladares Kimberly C, DO 11/08/2024 12:50 PM Addendum Spoke to pt - she would like to restart norvasc 10 mg daily and will f/u in 2 weeks for [place] BP Recheck DO Christopher Levy Brenda, LPN 11/08/2024 2:39 PM Signed Sent to [facility]. Sharee White LPN Allergies As [...] Encounter Status:Closed by MARIANELA EDWARDS on 11/08/24 [facility] Verito 11-06-2024 CNOV Office Visit (VASSWS ) MAUREEN BARRON ([id number]) 1955 F CHT Date Time Provider Department 11/06/24 9:30 AM ARGENIS NAGY During your visit today, we recorded the following information about you: Pulse Blood pressure 93/minute 190/108 Argenis Nagy DO 12/04/2024 2:41 PM Signed [facility] [place] DEPARTMENT OF VASCULAR SURGERY OUTPATIENT VISIT DATE [...] activities Will have her follow up in [place] with Dr. Padgett SIGNATURE: Argenis Nagy DO PATIENT NAME: Maureen Barron DATE: November 06, 2024 TIME: 10:51 AM Referring Provider: ARGENIS NAGY [[id number]] Allergies As of Date: 11/06/2024 (No Known Allergies) Date Reviewed: 11/06/2024 Reviewed by: Selene Haile OCCA - Fully Assessed Primary Visit Diagnosis:Encounter for screening for cardiovascular disorders [Z13.6] Other Visit Diagnoses:Claudication [I73.9] Primary hypertension [I10] Order(s):CONSULT TO VASCULAR SURGERY [9042] Order #: [id number]: 1 CONSULT TO CARDIOLOGY [9004] Order #: [id number]: 1 NM CARDIAC PERF STRESS/PHARM [3567348] Order #: [id number] FUTURE Prescriptions as of 12/04/2024 - cilostazol [...] for Encounter Date Provider Department Center 11/06/2024 [id number] NAGY Encounte (more content not included)... Normal [facility] CNPNon 10-29-2024 CNPN Telephone (RALEIGHFAMPLE) MAUREEN BARRON ([id number]) 1955 F T Date Time Provider Department [...] [E78.2] Order(s):LIPID PANEL, FASTING [SQLIPB] Order #: [id number] FUTURE Prescriptions as of 10/29/2024 - levothyroxine [...] Status:Closed by DESIRE MOSS on 10/29/[address] [facility] CTA ABD/PEL/LOWER EXT W IVCO Non 10-19-2024 CTA ABD/PEL/LOWER EXT W IVCON * * *Final Report* * * DATE OF EXAM: Oct 19 2024 2:18PM [facility] 0122 - CTA ABD/PEL/LOWER EXT W IVCON [...] multifocal calcifica (more content not included)... Normal [facility] CTA Abdominal, Pelvis and Lo wer extremity vessels W contrast Anayeli 10-19-2024 IMPRESSION: Multifocal moderate to high grade atherosclerotic disease as detailed above. Diminutive posterior tibial arteries likely variant for patient. Both legs mainly perfused by the anterior tibial artery. The peroneal artery is intermittently patent with multifocal calcifications. Water/Wastewater Project Engineer: PSCB Transcribe Date/Time: Oct 19 2024 4:04P Dictated by : GERRY SMITH MD This examination was interpreted and the report reviewed and electronically signed by: GERRY SMITH MD on Oct 19 2024 4:16PM [facility] * * *Final Report* * * DATE OF EXAM: Oct 19 2024 2:18PM [facility] 0122 - CTA ABD/PEL/LOWER EXT W IVCON [...] nail fixation screw in the proximal femur [facility] Provider, [facility] - 10/19/2024 * * *Final Report* * * DATE OF EXAM: Oct 19 2024 2:18PM [facility] 0122 - CTA ABD/PEL/LOWER EXT W IVCON [...] arteries likely haydee (more content not included)... [facility] Radiology Study observation (narrative) [facility] CTA Abdominal, Pelvis and Lo wer extremity vessels W contrast IVOrdered By: Ccf Provider on 10-19-2024 [facility] NURSING PROGon 10-19-2024 NURSING PROG HNO ID: [id number] Author: MARBELLA MARIE RN Service: Radiology Author [...] DATE: October 19, 2024 TIME: 1:56 PM [facility] Neurology Visit Reporton Neurology Visit Report [facility] [address], [address] [place] [address] OFFICE VISIT Date of Service: 10/18/24 MR#: [id number] Acct: [id number] Name: MAUREEN BARRON Rep #: [id number] : 1955 Provider: Dr. Brayden garcia MD Age/Sex: 69/F Location: [facility] Status: Signed HPI HPI Chief Complaint: Establish Care Details: The patient is a 69-year-old right handed female who presents to [facility]. She was referred 08/03/[address] Jaziel Lin with [facility] for right carpal tunnel syndrome. This patient presents with her sister for evaluation. Patient is able to provide information on her own behalf. Sister also provided information. Outside records were reviewed. Patient indicates that she has had a rough life. She was homeless in [place] for a number of years. Patient had [...] Within the past year she moved to [facility] and has reestablished health care. Patient [...] noted during a hospitalization in [address] [facility] in [place]. Patient had extensive workup for a variety of medical issues while at [facility] in [place]. She had presented with a concern for stroke based on a right facial droop. 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 Patient had been evaluated at [facility] for tingling [...] No marci (more content not included)... [facility] Office Visit (ZAYSWS ) MAUREEN ANSARI ([id number]) 1955 F T Date Time Provider Department 09/25/24 9:00 AM ARGENIS NAGY During your visit today, we recorded the following information about you: Pulse Blood pressure 83/minute 157/78 Argenis Nagy DO 09/25/2024 1:14 PM Signed [facility] [place] DEPARTMENT OF VASCULAR SURGERY OUTPATIENT VISIT DATE [...] TIME: 9:48 AM Referring Provider: ARGENIS NAGY [[id number]] Allergies As of Date: 09/25/2024 (No Known Allergies) Date Reviewed: 09/25/2024 Reviewed by: Selene Hiale OCCA - Fully Assessed Reason for Visit: Established Patient [175] Primary Visit Diagnosis:Peripheral vascular disease (HCC) [I73.9] Other Visit Diagnosis:Screening for nephropathy [Z13.89] Order(s):CTA ABD/PEL LOWER EXTREM W IVCON [3278782] Order #: [id number] (more content not included)... Normal [facility] CREATININE BLDOrdered By: Jan Connor on 09-25-2024 Creatinine [Mass/Vol] 1.19 mg/dL High 0.58 - 0.96 mg/dL [facility] GFR/1.73 sq M.predicted among non-blacks MDRD (S/P/Bld) [Vol rate/Area] 50 mL/min/{1.73_m2} Low - PINF [facility] Comment on above: Estimated Glomerular Filtration Rate [...] Interpretation and review of laboratory results Abnormal [facility] CREATININE BLDon 09-25-2024 Creatinine [Mass/Vol] 1.19 mg/dL High 0.58-0.96 [facility] Comment on above: Order Comment: Marika hammonds Type: BLOOD SPECIMEN Ordering Facility: [facility] Address: [address] [place] [address] Performed By: #### 2 4331-1 #### [facility] CLIA [id number] [address] [place] [address] [place] [facility] [id number] [place] [address] [place] #### 3016-3 #### [facility] CLIA [id number] [address] [place] [address] [place] Creatinine and Glomerular filtration rate.predicted panel (S/P/Bld) 50 mL/min/1.73m??? Low >=60 [facility] Comment on above: Order Comment: Marika hammonds Type: BLOOD SPECIMEN Ordering Facility: [facility] Address: [address] [place] [address] Result Comment: Maru mated Glomerular Filtration Rate [...] GFR. Performed By: #### 2 4331-1 #### [facility] CLIA [id number] [address] [place] [address] [place] [facility] CLIA [id number] [address] [place] [address] [place] #### 3016-3 #### [facility] CLIA [id number] [address] [place] [address] [place] TSH SerPl-aCncon 09-25-2024 TSH Qn 0.063 m[IU]/L Low 0.270-4.200 [facility] Comment on above: Order Comment: Speci men Type: BLOOD SPECIMEN Ordering Facility: [facility] Address: [address] [place] [address] Performed By: #### 2 4331-1 #### [facility] CLIA [id number] [address] [place] [address] [place] [facility] CLIA [id number] [address] [place] [address] [place] #### 3016-3 #### [facility] CLIA [id number] [address] [place] [address] STATES [place] P[place] CNPNon 09-11-2024 CNPN Telephone (AGFAMPLE) MAUREEN ANSARI ([id number]) 1955 F CHT Date Time Provider Department [...] [E03.9] Order(s):THYROID STIMULATING HORMONE [SQTSH] Order #: [id number] FUTURE Prescriptions as of 09/18/2024 - levothyroxine [...] Encounter Status:Closed by SHARI LÓPEZ on 09/18/24 [facility] BD DXA - AXIAL SKELETONon BD DXA - AXIAL SKELETON * * *Final Report* * * DATE OF EXAM: Aug 30 2024 1:57PM [facility] 0804 - BD DXA - AXIAL SKELETON / PROCEDURE REASON: Asymptomatic menopause * * * * Physician Interpretation * * * * EXAMINATION: DXA BONE DENSITOMETRY BD DXA - AXIAL SKELETON PATIENT DEMOGRAPHICS: Age: 68 years, Gender: Female SCANNER INFORMATION: DXA Model: [employer] - ncyclo C 38907 Date Scanned: 08/30/2024 1:57 PM CLINICAL HISTORY: [...] had a previous bone density in the [facility] or the previous bone density was performed on a different DXA machine (new, updated model or different location) within the [facility]. VERTEBRAL FRACTURE ASSESSMENT Not performed. IMPRESSION: [...] FOR MORE INFORMATION ABOUT DIAGNOSIS AND TREATMENT: [facility] Center for Osteoporosis and Metabolic Bone Disease:? www.ccf.org/arthritis/ osteo National Osteoporosis Foundation:? www.nof.org International Society of Clinical Densitometry www.iscd.org Water/Wastewater Project Engineer: GARY Transcribe Date/Time: Sep 03 2024 9:28A Dictated by : MAYELA ZAVALA MD This examination was interpreted and the report reviewed and electronically signed by: MAYELA ZAVALA MD on Sep 03 2024 9:29AM EST [id number] -3.6 Normal [facility] BRAD SCREENING W TOMOon 08-30 BRAD SCREENING W RONALD * * *Final Report* * * DATE OF EXAM: Aug 30 2024 1:32PM [facility] 0582 - BRAD SCREENING W RONALD / PROCEDURE REASON: Encounter for screening mammogram for breast cancer * * * * Physician Interpretation * * * * RESULT: [facility] [address] [place] [address] #[id number] - BRAD SCREENING W RONALD HISTORY: 68 [...] Nikunj Andrews M.D. Electronically signed on: 08/31/2024 Water/Wastewater Project Engineer: ANITRA Transcribe Date/Time: Aug 30 2024 12:53P Dictated by: NIKUNJ ANDREWS MD This examination was interpreted and the report reviewed and electronically signed by: NIKUNJ ANDREWS MD on Aug 31 2024 8:06AM EST [id number] Normal [facility] PVR LEG RAMAN VAS LABon 2024 [facility] Non-Invasive Vascula r Laboratory [facility] Lower Extremity Arterial Physiology Study Bilateral/Complete Date [...] index with exercise. Technologist: Kiana Sullivan RVT [facility] Ordering physician: ARGENIS NAGY Interpreting physician: TAHMINA Bianchi DO Final CC [facility] Image : [id number] See Link below for Image Normal [facility] VENOUS INCOMPETENCY RAMAN V LABon 08-29-2024 VENOUS INCOMPETENCY RAMAN V[facility] LAB Non-Invasive Vascular Laboratory [facility] Venous Valvular Incompetency Bilateral/Complete Date of service/time: [...] Branches mid calf. Technologist: Kiana Sullivan RVT, RDTN Ordering physician: ARGENIS NAGY Interpreting physician: TAHMINA Bianchi DO Final CC [facility] : [id number] See Link below for Image Normal [facility] CNOVon 07-31-2024 CNOV Office Visit (VASSWS ) MAUREEN ANSARI ([id number]) 1955 F [facility] Date Time Provider Department 07/31/24 8:30 AM ARGENIS NAGYS During your visit today, we recorded the following information about you: Pulse Blood pressure 80/minute 156/84 Argenis Nagy DO 07/31/2024 10:00 AM Signed [facility] [place] DEPARTMENT OF VASCULAR SURGERY OUTPATIENT VISIT DATE July 31, 2024 OUTPATIENT VISIT TYPE CONSULTATION SERVICE DATE: 07/31/2024 SERVICE TIME: 8:38 AM PRIMARY CARE PHYSICIAN: Marianela Edwards DO REFERRING PROVIDER: Marianela Edwards [address] [place] [address] Consult requested for an opinion regarding the [...] a history of intracranial aneurysm treatment in [place]. She has had vein treatment in [place] where veins were dissolved. She admits to [...] the origin (more content not included)... Normal [facility] Buzz 07-30-20[facility] MINO GAVINMAUREEN Gustafson ([id number]) 1955 F CHT Date Time Provider Department [...] Fully Assessed Reason for Visit: Lab Orders [1018] Prescriptions as of 07/31/2024 - levothyroxine (SYNTHROID) [...] Status:Closed by DESIRE MOSS on 07/30/[address] [facility] CNPNon 07-28-2024 CNPN Telephone (AGDELORISMPLE) MAUREEN ANSARI ([id number]) 1955 F CHT Date Time Provider Department [...] synthroid 100 mcg. Advised pt to not pepper picker the 112 mcg, will send in [...] Status:Closed by MARIANELA EDWARDS on 07/28/[address] [facility] CBC panel Auto (Bld)on 07-26 Erythrocyte distribution width (RBC) [Ratio] 13.1 % Normal 11.5-15.0 [facility] Comment on above: Order Comment: Speci men Type: BLOOD SPECIMEN Ordering Facility: [facility] Address: [address] [address] Performed By: #### 5 8410-2 #### [facility] CLIA [id number] [address] [place] [address] [place] Hematocrit (Bld) [Volume fraction] 56.7 % High 36.0-46.0 [facility] Comment on above: Order Comment: Speci men Type: BLOOD SPECIMEN Ordering Facility: [facility] Address: [address] [place], [place] [address] Performed By: #### 5 8410-2 #### [facility] CLIA [id number] [address] [place] [address] [place] Hemoglobin (Bld) [Mass/Vol] 18.8 g/dL High 11.5-15.5 [facility] Comment on above: Order Comment: Speci men Type: BLOOD SPECIMEN Ordering Facility: [facility] Address: [address] [place] [address] Performed By: #### 5 8410-2 #### [facility] CLIA [id number] [address] [place] [address] [place] MCH (RBC) [Entitic mass] 30.7 pg Normal 26.0-34.0 [facility] Comment on above: Order Comment: Speci men Type: BLOOD SPECIMEN Ordering Facility: [facility] Address: [address] [place] [address] Performed By: #### 5 8410-2 #### [facility] [id number] [address] [place] [address] [place] MCHC (RBC) [Mass/Vol] 33.2 g/dL Normal 30.5-36.0 [facility] Comment on above: Order Comment: Speci men Type: BLOOD SPECIMEN Ordering Facility: [facility] Address: [address] [place] [address] Performed By: #### 5 8410-2 #### [id number] [address] [place] [address] [place] MCV (RBC) [Entitic vol] 92.6 fL Normal 80.0-100.0 [facility] Comment on above: Order Comment: Speci men Type: BLOOD SPECIMEN Ordering Facility: [facility] Address: [address] [place] [address] Performed By: #### 5 8410-2 #### [facility] CLIA [id number] [address] [place] [address] [place] Nucleated RBC (Bld) [#/Vol] 10*3/uL Normal <0.01 [facility] Comment on above: Order Comment: Speci men Type: BLOOD SPECIMEN Ordering Facility: [facility] Address: [address] [place] [address] Performed By: #### 5 8410-2 #### [facility] CLIA [id number] [address] [place] [address] [place] Platelet mean volume (Bld) [Entitic vol] 9.1 fL Normal 9.0-12.7 [facility] Comment on above: Order Comment: Speci men Type: BLOOD SPECIMEN Ordering Facility: [facility] Address: [address] [place] [address] Performed By: #### 5 8410-2 #### [facility] CLIA [id number] [address] [place] [address] [place] Platelets (Bld) [#/Vol] 391 10*3/uL Normal 150-400 [facility] Comment on above: Order Comment: Speci men Type: BLOOD SPECIMEN Ordering Facility: [facility] Address: [address] [place] [address] Performed By: #### 5 8410-2 #### [facility] CLIA [id number] [address] [place] [address] [place] RBC (Bld) [#/Vol] 6.12 10*6/uL High 3.90-5.20 [facility] Comment on above: Order Comment: Speci men Type: BLOOD SPECIMEN Ordering Facility: [facility] Address: [address] [place] [address] Performed By: #### 5 8410-2 #### [facility] CLIA [id number] [address] [place] [address] [place] WBC (Bld) [#/Vol] 10.52 10*3/uL Normal 3.70-11.00 [facility] Comment on above: Order Comment: Speci men Type: BLOOD SPECIMEN Ordering Facility: [facility] Address: [address] [place] [address] Performed By: #### 5 8410-2 #### [facility] CLIA [id number] [address] [place] [address] [place] Comprehensive metabolic 2000 panelon 07-26-2024 Albumin [Mass/Vol] 4.4 g/dL Normal 3.9-4.9 [facility] Comment on above: Order Comment: Speci men Type: BLOOD SPECIMEN Ordering Facility: [facility] Address: [address] [place] [address] Performed By: #### 2 4323-8 #### [facility] CLIA [id number] [address] [place] [address] [place] ALP [Catalytic activity/Vol] 96 U/L Normal 34-123 [facility] Comment on above: Order Comment: Speci men Type: BLOOD SPECIMEN Ordering Facility: [facility] Address: [address] [place] [address] Performed By: #### 2 4323-8 #### [facility] CLIA [id number] [address] [place] [address] [place] ALT [Catalytic activity/Vol] 15 U/L Normal 7-38 [facility] Comment on above: Order Comment: Speci men Type: BLOOD SPECIMEN Ordering Facility: [facility] Address: [address] [place] [address] Performed By: #### 2 4323-8 #### [facility] CLIA [id number] [address] [place] [address] [place] Anion gap [Moles/Vol] 9 mmol/L Normal 8-15 [facility] Comment on above: Order Comment: Speci men Type: BLOOD SPECIMEN Ordering Facility: [facility] Address: [address] [place] [address] Performed By: #### 2 4323-8 #### [facility] CLIA [id number] [address] [place] [address] [place] AST [Catalytic activity/Vol] Normal [facility] Comment on above: Order Comment: Speci men Type: BLOOD SPECIMEN Ordering Facility: [facility] Address: [address] [place] [address] Result Comment: Unab le to assay. Specimen significantly hemolyzed. Performed By: #### 2 4323-8 #### [facility] CLIA [id number] [address] [place] [address] [place] Bilirubin [Mass/Vol] 0.3 mg/dL Normal 0.2-1.3 [facility] Comment on above: Order Comment: Speci men Type: BLOOD SPECIMEN Ordering Facility: [facility] Address: [address] [place] [address] Performed By: #### 2 4323-8 #### [facility] CLIA [id number] [address] [place] [address] [place] Calcium [Mass/Vol] 10.4 mg/dL High 8.5-10.2 [facility] Comment on above: Order Comment: Speci men Type: BLOOD SPECIMEN Ordering Facility: [facility] Address: [address] [place] [address] Performed By: #### 2 4323-8 #### [facility] [id number] [address] [place] [address] [place] Chloride [Moles/Vol] 99 mmol/L Normal 98-107 [facility] Comment on above: Order Comment: Speci men Type: BLOOD SPECIMEN Ordering Facility: [facility] Address: [address] [place] [address] Performed By: #### 2 4323-8 #### [facility] CLIA [id number] [address] [place] [address] [place] CO2 [Moles/Vol] 30 mmol/L Normal 22-30 [facility] Comment on above: Order Comment: Speci men Type: BLOOD SPECIMEN Ordering Facility: [facility] Address: [address] [place] [address] Performed By: #### 2 4323-8 #### [facility] CLIA [id number] [address] [place] [address] [place] Creatinine [Mass/Vol] 1.48 mg/dL High 0.58-0.96 [facility] Comment on above: Order Comment: Speci men Type: BLOOD SPECIMEN Ordering Facility: [facility] Address: [address] [place] [address] Performed By: #### 2 4323-8 #### [facility] CLIA [id number] [address] [place] [address] [place] Creatinine and Glomerular filtration rate.predicted panel (S/P/Bld) 39 mL/min/1.73m??? Low >=60 [facility] Comment on above: Order Comment: Speci men Type: BLOOD SPECIMEN Ordering Facility: [facility] Address: [address] [place] [address] Result Comment: Maru mated Glomerular Filtration Rate [...] GFR. Performed By: #### 2 4323-8 #### [facility] CLIA [id number] [address] [place] [address] [place] Glucose [Mass/Vol] 118 mg/dL High 74-99 [facility] Comment on above: Order Comment: Marika hammonds Type: BLOOD SPECIMEN Ordering Facility: [facility] Address: [address] [place] [address] Result Comment: The [place] Diabetes Association (ADA) provides guidance for cutoff [...] Standards of Medical Care in Diabetes 2016, [place] [employer] Association. Diabetes Care. 2016.39(Suppl 1). Performed By: #### 2 4323-8 #### [facility] CLIA [id number] [address] [place] [address] [place] Potassium [Moles/Vol] 4.3 mmol/L Normal 3.7-5.1 [facility] Comment on above: Order Comment: Marika hammonds Type: BLOOD SPECIMEN Ordering Facility: [facility] Address: [address] [place] [address] Performed By: #### 2 4323-8 #### [facility] CLIA [id number] [address] [place] [address] [place] Protein [Mass/Vol] 8.0 g/dL Normal 6.3-8.0 [facility] Comment on above: Order Comment: Marika hammonds Type: BLOOD SPECIMEN Ordering Facility: [facility] Address: [address] [place], [place] [address] Performed By: #### 2 4323-8 #### [facility] CLIA [id number] [address] [place] [address] [place] Sodium [Moles/Vol] 138 mmol/L Normal 136-144 [facility] Comment on above: Order Comment: Speci men Type: BLOOD SPECIMEN Ordering Facility: [facility] Address: [address] [place] [address] Performed By: #### 2 4323-8 #### [facility] CLIA [id number] [address] [place] [address] [place] Urea nitrogen [Mass/Vol] 26 mg/dL High 7- [facility] Comment on above: Order Comment: Speci men Type: BLOOD SPECIMEN Ordering Facility: [facility] Address: [address] [place] [address] Performed By: #### 2 4323-8 #### [facility] CLIA [id number] [address] [place] [address] [place] Lipid 1996 panelon 5 Cholesterol [Mass/Vol] 261 mg/dL High <200 [facility] Comment on above: Order Comment: Speci men Type: BLOOD SPECIMEN Ordering Facility: [facility] Address: [address] [place] [address] Result Comment: <200 mg/dL, Desirable 200-239 mg/dL, Borderline high >239 mg/dL, High Performed By: #### 2 4331-1 #### [facility] CLIA [id number] [address] [place] [address] [place] [facility] CLIA [id number] [address] [place] [address] [place] #### 3016-3 #### [facility] CLIA [id number] [address] [place] [address] [place] Cholesterol in HDL [Mass/Vol] 52 mg/dL Normal >39 [facility] Comment on above: Order Comment: Speci men Type: BLOOD SPECIMEN Ordering Facility: [facility] Address: [address] [place] [address] Result Comment: 40-5 9 mg/dL, Acceptable >59 mg/dL, High: Negative risk factor for coronary heart disease <40 mg/dL, Low: Positive risk factor for coronary heart disease Performed By: #### 2 4331-1 #### [facility] CLIA [id number] [address] [place] [address] [place] [facility] CLIA [id number] [address] [place] [address] [place] #### 3016-3 #### [facility] CLIA [id number] [address] [place] [address] [place] Cholesterol in LDL [Mass/Vol] 189 mg/dL High <100 [facility] Comment on above: Order Comment: Speci men Type: BLOOD SPECIMEN Ordering Facility: [facility] Address: [address] [place] [address] Result Comment: <100 mg/dL, Optimal 100-129 mg/dL, Near optimal/above optimal 130-159 mg/dL, Borderline high 160-189 mg/dL, High >189 mg/dL, Very high Secondary prevention optimal LDL Cholesterol levels are recommended to be < 70 mg/dL Performed By: #### 2 4331-1 #### [facility] CLIA [id number] [address] [place] [address] [place] [facility] CLIA [id number] [address] [place] [address] [place] #### 3016-3 #### [facility] CLIA [id number] [address] [place] [address] [place] Cholesterol in LDL/Cholesterol in HDL [Mass ratio] 3.63 {ratio} High <2.54 [facility] Comment on above: Order Comment: Speci men Type: BLOOD SPECIMEN Ordering Facility: [facility] Address: [address] [place] [address] Result Comment: Refe rence: 1. National Cholesterol Education Program ATP III Guideline At-A-Glance Quick Desk Reference: National Heart, Lung, and Blood [place]. National Institutes of Health. 2001: NIH Publication No. 01-3305. 2. An International Atherosclerosis Society position paper: global recommendations for the management of dyslipidemia: executive summary, Atherosclerosis. 2014: 232(2):410-413. Performed By: #### 2 4331-1 #### [facility] CLIA [id number] [facility] [address] [place] [facility] CLIA [id number] [place] [address] [place] #### 3016-3 #### [facility] CLIA [id number] [address] [place] [address] [place] Cholesterol in VLDL [Mass/Vol] 20 mg/dL Normal <30 [facility] Comment on above: Order Comment: Speci men Type: BLOOD SPECIMEN Ordering Facility: [facility] Address: [address] [place] [address] Performed By: #### 2 4331-1 #### [facility] CLIA [id number] [address] [place] [address] [place] [facility] CLIA [id number] [place] [address] [place] #### 3016-3 #### [facility] CLIA [id number] [address] [place] [address] [place] Cholesterol non HDL [Mass/Vol] 209 mg/dL High <130 [facility] Comment on above: Order Comment: Speci men Type: BLOOD SPECIMEN Ordering Facility: [facility] Address: [address] [place] [address] Result Comment: <130 mg/dL, Optimal 130-159 mg/dL, Near optimal/above optimal 160-189 mg/dL, Borderline high 190-219 mg/dL, High >219 mg/dL, Very high Secondary prevention optimal non HDL Cholesterol levels are recommended to be <100 mg/dL Performed By: #### 2 4331-1 #### [facility] CLIA [id number] [address] [place] [address] [place] [facility] CLIA [id number] [address] [place] [address] [place] #### 3016-3 #### [facility] CLIA [id number] [address] [place] [address] [place] Cholesterol.total/Cho lesterol in HDL [Mass ratio] 5.02 {ratio} Normal <5.10 [facility] Comment on above: Order Comment: Speci men Type: BLOOD SPECIMEN Ordering Facility: [facility] Address: [address] [place] [address] Performed By: #### 2 4331-1 #### [facility] CLIA [id number] [address] [place] [address] [place] [facility] [id number] [address] [place] [address] [place] #### 3016-3 #### [facility] CLIA [id number] [address] [place] [address] [place] FASTING TIME 12 hrs Normal [facility] Comment on above: Order Comment: Speci men Type: BLOOD SPECIMEN Ordering Facility: [facility] Address: [address] [place] [address] Performed By: #### 2 4331-1 #### [facility] CLIA [id number] [address] [place] [address] [place] [facility] [id number] [address] [place] [address] [place] #### 3016-3 #### [facility] CLIA [id number] [address] [place] [address] [place] Triglyceride [Mass/Vol] 99 mg/dL Normal <150 [facility] Comment on above: Order Comment: Speci men Type: BLOOD SPECIMEN Ordering Facility: [facility] Address: [address] [place] [address] Result Comment: <150 mg/dL, Normal 150-199 mg/dL, Borderline high 200-499 mg/dL, High >499 mg/dL, Very high Performed By: #### 2 4331-1 #### [facility] CLIA [id number] [address] [place] [address] [place] [facility] CLIA [id number] [address] [place] [address] [place] #### 3016-3 #### [facility] CLIA [id number] [address] [place] [address] [place] TSH SerPl-aCncon 07-26-2024 TSH Qn 20.000 m[IU]/L High 0.270-4.200 [facility] Comment on above: Order Comment: Speci men Type: BLOOD SPECIMEN Ordering Facility: [facility] Address: [address] [place] [address] Performed By: #### 2 4331-1 #### [facility] CLIA [id number] [address] [place] [address] [place] [facility] [id number] [address] [place] [address] [place] #### 3016-3 #### [facility] CLIA [id number] [address] [place] [address] [place] CNDSon 07-10-2024 CNDS HNO ID: [id number] Author: DARBY PETERSON MD Service: Hospital Medicine [...] FUTURE APPOINTMENTS: Follow Up with PCP: Marianela Edwards, DO No future appointments. The patient's risk [...] July 10, 2024 TIME: 12:[address] [facility] CBC panel Auto (Bld)on 07-09 Erythrocyte distribution width (RBC) [Ratio] 13.2 % Normal 11.5-15.0 [facility] Comment on above: Order Comment: Marika hammonds Type: BLOOD SPECIMEN Ordering Facility: [facility] Address: [address] [place] [address] Performed By: #### 5 8410-2 #### [facility] CLIA [id number] [address] [place] [address] [place] Hematocrit (Bld) [Volume fraction] 53.5 % High 36.0-46.0 [facility] Comment on above: Order Comment: Marika hammonds Type: BLOOD SPECIMEN Ordering Facility: [facility] Address: [address] [place] [address] Performed By: #### 5 8410-2 #### [facility] CLIA [id number] [address] [place], [place] [address] [place] Hemoglobin (Bld) [Mass/Vol] 18.1 g/dL High 11.5-15.5 [facility] Comment on above: Order Comment: Marika hammonds Type: BLOOD SPECIMEN Ordering Facility: [facility] Address: [address] [place] [address] Performed By: #### 5 8410-2 #### [facility] CLIA [id number] [address] [place] [address] MCH (RBC) [Entitic mass] 31.4 pg Normal 26.0-34.0 [facility] Comment on above: Order Comment: Speci men Type: BLOOD SPECIMEN Ordering Facility: [facility] Address: [address] [place] [address] Performed By: #### 5 8410-2 #### [facility] CLIA [id number] [address] [place] [address] MCHC (RBC) [Mass/Vol] 33.8 g/dL Normal 30.5-36.0 [facility] Comment on above: Order Comment: Speci men Type: BLOOD SPECIMEN Ordering Facility: [facility] Address: [address] [place] [address] Performed By: #### 5 8410-2 #### [facility] CLIA [id number] [address] [place] [address] [place] MCV (RBC) [Entitic vol] 92.7 fL Normal 80.0-100.0 [facility] Comment on above: Order Comment: Speci men Type: BLOOD SPECIMEN Ordering Facility: [facility] Address: [address] [place] [address] Performed By: #### 5 8410-2 #### [facility] CLIA [id number] [address] [place] [address] Nucleated RBC (Bld) [#/Vol] 10*3/uL Normal <0.01 [facility] Comment on above: Order Comment: Speci men Type: BLOOD SPECIMEN Ordering Facility: [facility] Address: [address] [place] [address] Performed By: #### 5 8410-2 #### [facility] CLIA [id number] [address] [place] [address] [place] Platelet mean volume (Bld) [Entitic vol] 9.1 fL Normal 9.0-12.7 [facility] Comment on above: Order Comment: Speci men Type: BLOOD SPECIMEN Ordering Facility: [facility] Address: [address] [place] [address] Performed By: #### 5 8410-2 #### [facility] CLIA [id number] [address] [place] [address] [place] Platelets (Bld) [#/Vol] 307 10*3/uL Normal 150-400 [facility] Comment on above: Order Comment: Speci men Type: BLOOD SPECIMEN Ordering Facility: [facility] Address: [address] [place] [address] Performed By: #### 5 8410-2 #### [facility] CLIA [id number] [address] [place] [address] [place] RBC (Bld) [#/Vol] 5.77 10*6/uL High 3.90-5.20 [facility] Comment on above: Order Comment: Speci men Type: BLOOD SPECIMEN Ordering Facility: [facility] Address: [address] [place] [address] Performed By: #### 5 8410-2 #### [facility] CLIA [id number] [address] [place] [address] [place] WBC (Bld) [#/Vol] 11.43 10*3/uL High 3.70-11.[address] [facility] Comment on above: Order Comment: Speci men Type: BLOOD SPECIMEN Ordering Facility: [facility] Address: [address] [place] [address] Performed By: #### 5 8410-2 #### [facility] CLIA [id number] [address] [place] [address] [facility] [place] Calcium.ionized [Moles/Vol]o n 07-09-2024 Calcium.ionized (Bld) [Mass/Vol] 1.17 mmol/L Normal 1.08-1.30 [facility] Comment on above: Order Comment: Speci men Type: BLOOD SPECIMEN Ordering Facility: [facility] Address: [address] [place], [place] [address] Performed By: #### 1 995-0 #### [facility] CLIA [id number] [address] [place], [place] [address] [place] Calcium.ionized adjusted to pH 7.4 (Bld) [Moles/Vol] 1.11 mmol/L Normal 1.08-1.30 [facility] Comment on above: Order Comment: Speci men Type: BLOOD SPECIMEN Ordering Facility: [facility] Address: [address] [place], [place] [address] Performed By: #### 1 995-0 #### [facility] CLIA [id number] [address] [place], [place] [address] [facility] Comprehensive metabolic 2000 panelon 07-09-2024 Albumin [Mass/Vol] 3.3 g/dL Normal 3.2-5.0 [facility] Comment on above: Order Comment: Speci men Type: BLOOD SPECIMEN Ordering Facility: [facility] Address: [address] [place], [place] [address] Performed By: #### 3 3762-6, 03489-3, 3024-7, 3016-3, 2777-1, 06864-9 #### [facility] CLIA [id number] [address] [place] [address] [place] ALP [Catalytic activity/Vol] 88 U/L Normal 45-117 [facility] Comment on above: Order Comment: Speci men Type: BLOOD SPECIMEN Ordering Facility: [facility] Address: [address] [place], [place] [address] Performed By: #### 3 3762-6, 41346-5, 3024-7, 3016-3, 2777-1, 58639-8 #### [facility] CLIA [id number] [address] [place] [address] ALT [Catalytic activity/Vol] 10 U/L Low 13-61 [facility] Comment on above: Order Comment: Speci men Type: BLOOD SPECIMEN Ordering Facility: [facility] Address: [address] [place] [address] Result Comment: Resu lts may be falsely depressed after the administration of Sulfasalazine and/or Sulfapyridine. Performed By: #### 3 3762-6, 17792-5, 3024-7, 3016-3, 2777-1, 27700-0 #### [facility] CLIA [id number] [address] [place] [address] [place] Anion gap [Moles/Vol] 4 mmol/L Low 5-16 [facility] Comment on above: Order Comment: Speci men Type: BLOOD SPECIMEN Ordering Facility: [facility] Address: [address] [place] [address] Performed By: #### 3 3762-6, 08394-7, 302-7, 3016-3, 2777-1, 41331-4 #### [facility] CLIA [id number] [address] [place] [address] [place] AST [Catalytic activity/Vol] 15 U/L Normal 8-34 [facility] Comment on above: Order Comment: Speci cassius Type: BLOOD SPECIMEN Ordering Facility: [facility] Address: [address] [place] [address] Result Comment: Resu lts may be falsely depressed after the administration of Sulfasalazine and/or Sulfapyridine. Performed By: #### 3 3762-6, 99352-0, 4-7, 3016-3, 2777-1, 47424-8 #### [facility] CLIA [id number] [address] [place] [address] [place] Bilirubin [Mass/Vol] 0.6 mg/dL Normal 0.2-1.[address] [facility] Comment on above: Order Comment: Speci men Type: BLOOD SPECIMEN Ordering Facility: [facility] Address: [address] [place] [address] Performed By: #### 3 3762-6, 13113-2, 3024-7, 3016-3, 2777-1, 28844-1 #### [facility] CLIA [id number] [address] [place] [address] [place] Calcium [Mass/Vol] 10.0 mg/dL Normal 8.5-10.5 [facility] Comment on above: Order Comment: Speci men Type: BLOOD SPECIMEN Ordering Facility: [facility] Address: [address] [place] [address] Performed By: #### 3 3762-6, 52005-8, 3024-7, 3016-3, 2777-1, 18975-2 #### [facility] CLIA [id number] [address] [place], [place] [address] [place] Chloride [Moles/Vol] 102 mmol/L Normal 98-[address] [facility] Comment on above: Order Comment: Speci men Type: BLOOD SPECIMEN Ordering Facility: [facility] Address: [address] [place] [address] Performed By: #### 3 3762-6, 97655-2, 3024-7, 3016-3, 2777-1, 50103-6 #### [facility] CLIA [id number] [address] [place], [place] [address] [place] CO2 [Moles/Vol] 30 mmol/L Normal 21-32 [facility] Comment on above: Order Comment: Speci men Type: BLOOD SPECIMEN Ordering Facility: [facility] Address: [address] [place] [address] Performed By: #### 3 3762-6, 27184-2, 3024-7, 3016-3, 2777-1, 88735-0 #### [facility] CLIA [id number] [address] [place], [place] [address] [place] Creatinine [Mass/Vol] 1.20 mg/dL High 0.51-0.95 [facility] Comment on above: Order Comment: Speci men Type: BLOOD SPECIMEN Ordering Facility: [facility] Address: [address] [place] [address] Result Comment: Misa ents receiving either N-Acetylcysteine (NAC) or Metamizole prior to venipuncture, may have falsely depressed results. Performed By: #### 3 3762-6, 81597-1, 3024-7, 3016-3, 2777-1, 63389-6 #### [facility] CLIA [id number] [address] [place], [place] [address] [place] Creatinine and Glomerular filtration rate.predicted panel (S/P/Bld) 50 mL/min/1.73m??? Low >=60 [facility] Comment on above: Order Comment: Marika hammonds Type: BLOOD SPECIMEN Ordering Facility: [facility] Address: [address] [place] [address] Result Comment: Maru mated Glomerular Filtration Rate [...] actual GFR. Performed By: #### 3 3762-6, 38770-9, 3024-7, 3016-3, 2777-1, 79901-0 #### [facility] CLIA [id number] [address] [place], [place] [address] [place] Glucose [Mass/Vol] 121 mg/dL High 70-100 [facility] Comment on above: Order Comment: Marika hammonds Type: BLOOD SPECIMEN Ordering Facility: [facility] Address: [address] [place] [address] Result Comment: The [place] Diabetes Association (ADA) provides guidance for cutoff [...] Standards of Medical Care in Diabetes 2016, [place] Diabetes Association. Diabetes Care. 2016.39(Suppl 1). Results may be falsely elevated after the administration of Sulfapyridine. Results may be falsely depressed after the administration of Sulfasalazine. Performed By: #### 3 3762-6, 79275-0, 3024-7, 3016-3, 2777-1, 98051-5 #### [facility] CLIA [id number] [address] [place], [place] [address] [place] Potassium [Moles/Vol] 3.9 mmol/L Normal 3.5-5.1 [facility] Comment on above: Order Comment: Speci men Type: BLOOD SPECIMEN Ordering Facility: [facility] Address: [address] [place] [address] Performed By: #### 3 3762-6, 53857-1, 3023-7, 3016-3, 2777-1, 14595-2 #### [facility] CLIA [id number] [address] [place], [place] [address] [place] Protein [Mass/Vol] 7.1 g/dL Normal 6.0-8.5 [facility] Comment on above: Order Comment: Marika hammonds Type: BLOOD SPECIMEN Ordering Facility: [facility] Address: [address] [place] [address] Performed By: #### 3 3762-6, 64687-1, 4-7, 3016-3, 7-1, 28012-7 #### [facility] CLIA [id number] [address] [place], [place] [address] [place] Sodium [Moles/Vol] 136 mmol/L Normal 136-145 [facility] Comment on above: Order Comment: Speci cassius Type: BLOOD SPECIMEN Ordering Facility: [facility] Address: [address] [place] [address] Performed By: #### 3 3762-6, 80041-1, 3023-7, 3016-3, 2777-1, 51049-6 #### [facility] CLIA [id number] [address] [place], [place] [address] [place] Urea nitrogen [Mass/Vol] 13 mg/dL Normal 01-26 [facility] Comment on above: Order Comment: Speci men Type: BLOOD SPECIMEN Ordering Facility: [facility] Address: [facility] [place] [address] Performed By: #### 3 3762-6, 94382-5, 3024-7, 3016-3, 2777-1, 34008-6 #### [facility] CLIA [id number] [address] STATES OF [facility] ECHOon 07-09-2024 Echocardiography Echocardiography Report: Transthoracic Echo [facility] Date of service: 07/09/2024 10:17:39 AM Ordering [...] deceleration time is 263 msec. TRICUSPID VALVE [place] tricuspid valve. There is no tricuspid stenosis. [...] * * Final * * * CC [facility] : [id number] csSISUID Normal [facility] HbA1c (Bld)on 07-09-2024 Average glucose Estimated from glycated hemoglobin (Bld) [Mass/Vol] 128 mg/dL Normal [facility] Comment on above: Order Comment: Marika hammonds Type: BLOOD SPECIMEN Ordering Facility: [facility] Address: [address] [place] [address] Result Comment: eAG: (Estimated average glucose) is a calculated value from HgbA1c and is truck sales representative of the average blood glucose level in the last 2-3 month period. Performed By: #### 5 8410-2 #### [facility] CLIA [id number] [address] [place] [address] [place] HbA1c (Bld) [Mass fraction] 6.1 % High 4.3-5.6 [facility] Comment on above: Order Comment: Marika hammonds Type: BLOOD SPECIMEN Ordering Facility: [facility] Address: [address] [place] [address] Result Comment: [place] Diabetes Association guidelines indicate that patients with HgbA1c in the range 5.7-6.4% are at increased risk for development of diabetes, and intervention by lifestyle modification may be beneficial. HgbA1c greater or equal to 6.5% is considered diagnostic of diabetes. Performed By: #### 5 8410-2 #### [facility] CLIA [id number] [address] [place] [address] [place] Lactate (Bld) [Moles/Vol]on 07-09-2024 Lactate [Moles/Vol] 2.1 mmol/L High 0.4-2.0 [facility] Comment on above: Order Comment: Marika hammonds Type: BLOOD SPECIMENOrdering Facility: [facility] Address: [address] [place] [address] Performed By: #### 9 5941-1 #### [facility] CLIA [id number] [address] [place], [place] [address] [facility] Magnesium [facility] Magnesium [Mass/Vol] 1.8 mg/dL Normal 1.6-2.[address] [facility] Comment on above: Order Comment: Marika hammonds Type: BLOOD SPECIMEN Ordering Facility: [facility] Address: [address] [place] [address] Performed By: #### 3 3762-6, 13228-1, 3024-7, 3016-3, 2777-1, 21417-9 #### [facility] CLIA [id number] [address] [place] [address] NT-proBNP [facility] Natriuretic peptide.B prohormone N-Terminal [Mass/Vol] 3229 pg/mL High <125 [facility] Comment on above: Order Comment: Marika hammonds Type: BLOOD SPECIMEN Ordering Facility: [facility] Address: [address] [place] [address] Result Comment: NT-p roBNP results of less than 300 pg/mL likely rules out acute congestive heart failure with 99% predictive value. NOTE: These cutoff points are suggested for ACUTE CHF DIAGNOSIS only Less than 50 years\X09\ Greater than 450 pg/mL 50 - 75 years\X09\\X09\ Greater than 900 pg/mL Greater than 75 years\X09\ Greater than 1800 pg/mL Performed By: #### 3 3762-6, 84861-9, 3024-7, 3016-3, 2777-1, 43853-2 #### [facility] CLIA [id number] [address] [place], [place] [address] [place] PT panel Coag (PPP)on 2024 INR Coag (PPP) [Relative time] 1.0 {INR} Normal 0.9-1.3 [facility] Comment on above: Order Comment: Marika hammonds Type: BLOOD SPECIMEN Ordering Facility: [facility] Address: [address] [place] [address] Result Comment: Tisha min K Antagonist (VKA) Therapeutic Range: INR 2 to 3 (Target INR of 2.5) Note: For patients treated with VKA drugs, such as warfarin, the [place] [employer] Chest [employer]icians 2012 Guideline recommends [...] Chest 2012, 141:7S-47S Conrad RA, et al. [facility] 2017, 70: 252-289 Performed By: #### 3 4528-0, 02482-6 #### [facility] CLIA [id number] [address] [place] [address] [place] PT Coag (PPP) [Time] 10.9 s Normal 9.7-13.[address] [facility] Comment on above: Order Comment: Marika hammonds Type: BLOOD SPECIMEN Ordering Facility: [facility] Address: [address] [place] [address] Performed By: #### 3 4528-0, 31482-3 #### [facility] CLIA [id number] [address] [place] [address] [place] Phosphate SerPl-mCncon 07-09 Phosphate [Mass/Vol] 3.6 mg/dL Normal 2.5-4.[address] [facility] Comment on above: Order Comment: Marika hammonds Type: BLOOD SPECIMENOrdering Facility: [facility] Address: [address] [place] [address] Result Comment: Elev ated m-protein (paraprotein) levels in the serum may be exhibited in patients with monoclonal gammopathies, causing falsely elevated inorganic phosphorus results. Performed By: #### 9 5941-1 #### [facility] CLIA [id number] [address] [place] [address] [place] Procalcitonin SerPl-mCncon 0 07-09-2024 Procalcitonin [Mass/Vol] 0.07 ng/mL Normal 0.00-0.50 [facility] Comment on above: Order Comment: Speci men Type: BLOOD SPECIMENOrdering Facility: [facility] Address: [address] [place] [address] Result Comment: PCT Concentration Interpretation PCT <=0.1 [...] shock. Performed By: #### 9 5941-1 #### [facility] CLIA [id number] [address] [place] [address] [place] STAPHYLOCOCCUS AUREUS AND MR SA SCREEN, PCR, NASALon 07-09-2024 S. aureus and MRSA panel CELIA+probe (Nose) Not detected Normal Not Detected [facility] Comment on above: Order Comment: Speci men Type: SWABOrdering Facility: [facility] Address: [address] [place] [address] Performed By: #### 9 5941-1 #### [facility] CLIA [id number] [address] [place] [address] [place] T4 Free SerPl-mCncon 025 Free T4 [Mass/Vol] 1.0 ng/dL Normal 0.8-1.5 [facility] Comment on above: Order Comment: Speci men Type: BLOOD SPECIMEN Ordering Facility: [facility] Address: [address] [place] [address] Performed By: #### 3 3762-6, 56804-2, 3024-7, 3016-3, 2777-1, 73365-6 #### [facility] CLIA [id number] [address] [place] [address] [place] TOXICOLOGY SCREEN, ROUTINE U RINEon 07-09-2024 Amphetamines Confirm (U) [Mass/Vol] Positive Abnormal Negative [facility] Comment on above: Order Comment: Speci men Type: URINE SPECIMENOrdering Facility: [facility] Address: [address] [place] [address] Result Comment: Cuto ff threshold at 1000 ng/mL. Performed By: #### 9 5941-1 #### [facility] CLIA [id number] [address] [place] [address] [place] BARBITURATES, URINE Negative Normal Negative [facility] Comment on above: Order Comment: Speci men Type: URINE SPECIMENOrdering Facility: [facility] Address: [address] [place] [address] Result Comment: Cuto ff threshold at 200 ng/mL. Performed By: #### 9 5941-1 #### [facility] CLIA [id number] [address] [place] [address] [place] BENZODIAZEPINES, UR Negative Normal Negative [facility] Comment on above: Order Comment: Speci men Type: URINE SPECIMENOrdering Facility: [facility] Address: [address] [place] [address] Result Comment: Cuto ff threshold at 200 ng/mL. Performed By: #### 9 5941-1 #### [facility] CLIA [id number] [address] [place] [address] [place] Cannabinoids Screen Ql (U) Positive Abnormal Negative [facility] Comment on above: Order Comment: Speci men Type: URINE SPECIMENOrdering Facility: [facility] Address: [address] [place] [address] Result Comment: Cuto ff threshold at 50 ng/mL. Performed By: #### 9 5941-1 #### [facility] CLIA [id number] [address] [place] [address] [place] Cocaine Ql (U) Negative Normal Negative [facility] Comment on above: Order Comment: Speci men Type: URINE SPECIMENOrdering Facility: [facility] Address: [address] [place] [address] Result Comment: Cuto ff threshold at 300 ng/mL. Performed By: #### 9 5941-1 #### [facility] CLIA [id number] [address] [place] [address] [place] Opiates Screen Ql (U) Positive Abnormal Negative [facility] Comment on above: Order Comment: Speci men Type: URINE SPECIMENOrdering Facility: [facility] Address: [address] [place] [address] Result Comment: Cuto ff threshold at 300 ng/mL. Performed By: #### 9 5941-1 #### [facility] CLIA [id number] [address] [place] [address] [place] Phencyclidine Ql (U) Negative Normal Negative [facility] Comment on above: Order Comment: Speci men Type: URINE SPECIMENOrdering Facility: [facility] Address: [address] [place] [address] Result Comment: Cuto ff threshold at 25 ng/mL. Performed By: #### 9 5941-1 #### [facility] CLIA [id number] [address] [place] [address] [place] TSH SerPl-aCncon 07-09-2024 TSH Qn 17.613 m[IU]/L High 0.358-3.740 [facility] Comment on above: Order Comment: Speci men Type: BLOOD SPECIMENOrdering Facility: [facility] Address: [address] [place] [address] Result Comment: 3rd generation ultra sensitive TSH. Performed By: #### 9 5941-1 #### [facility] CLIA [id number] [address] [place] [address] OF [place] Urinalysis complete panel (U )on 07-09-2024 Bacteria LM.HPF (Urine sed) [#/Area] None Seen Normal None Seen [facility] Comment on above: Order Comment: Speci men Type: URINE SPECIMENOrdering Facility: [facility] Address: [address] [place] [address] Performed By: #### 9 5941-1 #### [facility] CLIA [id number] [address] [place] [address] [place] Bilirubin Ql (U) Negative Normal Negative [facility] Comment on above: Order Comment: Speci men Type: URINE SPECIMENOrdering Facility: [facility] Address: [address] [place] [address] Performed By: #### 9 5941-1 #### [facility] CLIA [id number] [address] [place] [address] [place] Clarity (Unsp spec) Clear Normal Clear [facility] Comment on above: Order Comment: Speci men Type: URINE SPECIMENOrdering Facility: [facility] Address: [address] [place] [address] Performed By: #### 9 5941-1 #### [facility] CLIA [id number] [address] [place] [address] [place] Color (U) Yellow Normal Yellow [facility] Comment on above: Order Comment: Speci men Type: URINE SPECIMENOrdering Facility: [facility] Address: [address] [place] [address] Performed By: #### 9 5941-1 #### [facility] CLIA [id number] [address] [place] [address] OF [place] Epithelial cells LM.HPF (Urine sed) [#/Area] Few Normal [facility] Comment on above: Order Comment: Speci men Type: URINE SPECIMENOrdering Facility: [facility] Address: [address] [place] [address] Performed By: #### 9 5941-1 #### [facility] CLIA [id number] [address] [place] [address] OF [place] Glucose Test strip (U) [Mass/Vol] 1+ Abnormal Negative [facility] Comment on above: Order Comment: Speci men Type: URINE SPECIMENOrdering Facility: [facility] Address: [address] [place] [address] Performed By: #### 9 5941-1 #### [facility] CLIA [id number] [address] [place] [address] [place] Hemoglobin Ql (U) 1+ Abnormal Negative [facility] Comment on above: Order Comment: Speci men Type: URINE SPECIMENOrdering Facility: [facility] Address: [address] [place] [address] Performed By: #### 9 5941-1 #### [facility] CLIA [id number] [address] [place] [address] [place] Ketones Ql (U) Negative Normal Negative [facility] Comment on above: Order Comment: Speci men Type: URINE SPECIMENOrdering Facility: [facility] Address: [address] [place] [address] Performed By: #### 9 5941-1 #### [facility] CLIA [id number] [address] [place] [address] OF [place] Leukocyte esterase Test strip Ql (U) Negative Normal Negative [facility] Comment on above: Order Comment: Speci men Type: URINE SPECIMENOrdering Facility: [facility] Address: [address] [place] [address] Performed By: #### 9 5941-1 #### [facility] CLIA [id number] [address] [place] [address] [place] Nitrite Ql (U) Negative Normal Negative [facility] Comment on above: Order Comment: Speci men Type: URINE SPECIMENOrdering Facility: [facility] Address: [address] [place] [address] Performed By: #### 9 5941-1 #### [facility] CLIA [id number] [address] [place] [address] [place] pH (U) 6.0 [pH] Normal 5.0-8.0 [facility] Comment on above: Order Comment: Speci men Type: URINE SPECIMENOrdering Facility: [facility] Address: [address] [place] [address] Performed By: #### 9 5941-1 #### [facility] CLIA [id number] [address] [place] [address] [place] Protein (U) [Mass/Vol] 2+ Abnormal Negative [facility] Comment on above: Order Comment: Speci men Type: URINE SPECIMENOrdering Facility: [facility] Address: [address] [place] [address] Performed By: #### 9 5941-1 #### [facility] CLIA [id number] [address] [place] [address] [place] RBC LM.HPF (Urine sed) [#/Area] 3-5 /HPF Abnormal 0-3 /HPF [facility] Comment on above: Order Comment: Speci men Type: URINE SPECIMENOrdering Facility: [facility] Address: [address] [place] [address] Performed By: #### 9 5941-1 #### [facility] [place] [id number] [address] [place] [address] [place] Specific gravity (U) [Rel density] >1.030 High 1.005-1.030 [facility] Comment on above: Order Comment: Speci men Type: URINE SPECIMENOrdering Facility: [facility] Address: [address] [place] [address] Performed By: #### 9 5941-1 #### [facility] CLIA [id number] [address] [place] [address] [place] Urobilinogen Ql (U) Negative Normal Negative [facility] Comment on above: Order Comment: Speci men Type: URINE SPECIMENOrdering Facility: [facility] Address: [address] [place] [address] Performed By: #### 9 5941-1 #### [facility] CLIA [id number] [address] [place] [address] STATES [facility] WBC LM.HPF (Urine sed) [#/Area] 0-5 /HPF Normal 0-5 /HPF [facility] Comment on above: Order Comment: Speci men Type: URINE SPECIMENOrdering Facility: [facility] Address: [address] [place] [address] Performed By: #### 9 5941-1 #### [facility] CLIA [id number] [address] [place] [address] OF [place] XR CHEST 1V FRONTALon 2024 [...] osseous findings. IMPRESSION: No acute radiographic abnormality. Water/Wastewater Project Engineer: GARY Transcribe Date/Time: Jul 09 2024 7:35A Dictated by : AMY PAIGE MD This examination was interpreted and the report reviewed and electronically signed by: AMY PAIGE MD on Jul 09 2024 7:35AM EST [id number] Normal [facility] aPTT PPPon 07-09-2024 aPTT Coag (PPP) [Time] 29.8 s Normal 23.0-32.4 [facility] Comment on above: Order Comment: Speci men Type: BLOOD SPECIMEN Ordering Facility: [facility] Address: [address] [place] [address] Performed By: #### 3 4528-0, 80607-7 #### [facility] CLIA [id number] [address] [place] [address] ALLIED HEALTHon 07-08-2024 ALLIED HEALTH HNO ID: [id number] Author: JELANI HUTTON RT(R) Service: Radiology Author [...] PATIENT PRESENTS WITH AN IMPLANTABLE OR ATTACHED APPLICATION PERFORMANCE ENGINEER: No ALLERGIES: Reviewed and unchanged CONTRAST ALLERGY: [...] July 08, 2024 TIME: 6:[address] [facility] Basic metabolic 2000 panelon 07-08-2024 Anion gap [Moles/Vol] 12 mmol/L Normal 8-15 [facility] Comment on above: Order Comment: Speci men Type: BLOOD SPECIMENOrdering Facility: [facility] Address: [address] [place] [address] Performed By: #### 2 4321-2 ####[facility] [place] LABCLIA [id number] [place] [address] [place] Calcium [Mass/Vol] 10.4 mg/dL High 8.5-10.2 [facility] Comment on above: Order Comment: Speci men Type: BLOOD SPECIMENOrdering Facility: [facility] Address: [address] [place] [address] Performed By: #### 2 4321-2 ####[facility] [place] LABCLIA [id number] [facility] [place] [address] [place] Chloride [Moles/Vol] 96 mmol/L Low 98-107 [facility] Comment on above: Order Comment: Speci men Type: BLOOD SPECIMENOrdering Facility: [facility] Address: [address] [place] [address] Performed By: #### 2 4321-2 ####[facility] [place] LABCLIA [id number] YRIA [facility] [place] [address] [place] CO2 [Moles/Vol] 27 mmol/L Normal 22-30 [facility] Comment on above: Order Comment: Speci men Type: BLOOD SPECIMENOrdering Facility: [facility] Address: [address] [place] [address] Performed By: #### 2 4321-2 ####[facility] [place] LABCLIA [id number] [facility] [place] [address] [place] Creatinine [Mass/Vol] 1.26 mg/dL High 0.58-0.96 [facility] Comment on above: Order Comment: Speci men Type: BLOOD SPECIMENOrdering Facility: [facility] Address: [address] [place] [address] Performed By: #### 2 4321-2 ####[facility] [place] LABCLIA [id number] [place] [address] [place] Creatinine and Glomerular filtration rate.predicted panel (S/P/Bld) 47 mL/min/1.73m??? Low >=60 [facility] Comment on above: Order Comment: Marika hammonds Type: BLOOD SPECIMENOrdering Facility: [facility] Address: [address] [place] [address] Result Comment: Maru mated Glomerular Filtration Rate [...] actual GFR. Performed By: #### 2 4321-2 ####[facility] LABCLIA [id number] [place] [address] [place] Glucose [Mass/Vol] 162 mg/dL High 74-99 [facility] Comment on above: Order Comment: Marika hammonds Type: BLOOD SPECIMENOrdering Facility: [facility] Address: [address] [place] [address] Result Comment: The [place] Diabetes Association (ADA) provides guidance for cutoff [...] Standards of Medical Care in Diabetes 2016, [place] Diabetes Association. Diabetes Care. 2016.39(Suppl 1). Performed By: #### 2 4321-2 ####[facility] LABCLIA [id number] [place] [address] [place] Potassium [Moles/Vol] 4.6 mmol/L Normal 3.7-5.1 [facility] Comment on above: Order Comment: Speci men Type: BLOOD SPECIMENOrdering Facility: [facility] Address: [address] [place] [address] Performed By: #### 2 4321-2 ####[facility] [place] LABCLIA [id number] [place] [address] [place] Sodium [Moles/Vol] 135 mmol/L Low 136-144 [facility] Comment on above: Order Comment: Speci men Type: BLOOD SPECIMENOrdering Facility: [facility] Address: [address] [place] [address] Performed By: #### 2 4321-2 ####[facility] LABCLIA [id number] [place] [address] [place] Urea nitrogen [Mass/Vol] 16 mg/dL Normal 7-21 [facility] Comment on above: Order Comment: Speci men Type: BLOOD SPECIMENOrdering Facility: [facility] Address: [address] [place] [address] Performed By: #### 2 4321-2 ####[facility] LABCLIA [id number] [place] [address] [place] CBC panel Auto (Bld)on 07-08 Erythrocyte distribution width (RBC) [Ratio] 13.1 % Normal 11.5-15.0 [facility] Comment on above: Order Comment: Speci men Type: BLOOD SPECIMENOrdering Facility: [facility] Address: [address] [place] [address] Performed By: #### 5 8410-2 ####[facility] [place] LABCLIA [id number] [place] [address] [facility] Hematocrit (Bld) [Volume fraction] 59.2 % High 36.0-46.0 [facility] Comment on above: Order Comment: Speci men Type: BLOOD SPECIMENOrdering Facility: [facility] Address: [address] [place] [address] Performed By: #### 5 8410-2 ####[facility] [place] LABCLIA [id number] [place] [address] [place] Hemoglobin (Bld) [Mass/Vol] 19.3 g/dL High 11.5-15.5 [facility] Comment on above: Order Comment: Speci men Type: BLOOD SPECIMENOrdering Facility: [facility] Address: [address] [place] [address] Performed By: #### 5 8410-2 ####[facility] LABCLIA [id number] [place] [address] [place] MCH (RBC) [Entitic mass] 30.8 pg Normal 26.0-34.0 [facility] Comment on above: Order Comment: Speci men Type: BLOOD SPECIMENOrdering Facility: [facility] Address: [address] [place] [address] Performed By: #### 5 8410-2 ####[facility] LABCLIA [id number] [place] [address] [place] [facility] MCHC (RBC) [Mass/Vol] 32.6 g/dL Normal 30.5-36.0 [facility] Comment on above: Order Comment: Speci men Type: BLOOD SPECIMENOrdering Facility: [facility] Address: [address] [place] [address] Performed By: #### 5 8410-2 ####[facility] LABCLIA [id number] [place] [address] [place] MCV (RBC) [Entitic vol] 94.4 fL Normal 80.0-100.0 [facility] Comment on above: Order Comment: Speci men Type: BLOOD SPECIMENOrdering Facility: [facility] Address: [address] [place] [address] Performed By: #### 5 8410-2 ####[facility] LABCLIA [id number] [place] [address] [place] Platelet mean volume (Bld) [Entitic vol] 9.4 fL Normal 9.0-12.7 [facility] Comment on above: Order Comment: Speci men Type: BLOOD SPECIMENOrdering Facility: [facility] Address: [address] [place] [address] Performed By: #### 5 8410-2 ####[facility] LABCLIA [id number] [place] [address] [facility] Platelets (Bld) [#/Vol] 291 10*3/uL Normal 150-400 [facility] Comment on above: Order Comment: Speci men Type: BLOOD SPECIMENOrdering Facility: [facility] Address: [address] [place] [address] Performed By: #### 5 8410-2 ####[facility] LABCLIA [id number] [place] [address] [facility] RBC (Bld) [#/Vol] 6.27 10*6/uL High 3.90-5.20 [facility] Comment on above: Order Comment: Speci men Type: BLOOD SPECIMENOrdering Facility: [facility] Address: [address] [place] [address] Performed By: #### 5 8410-2 ####[facility] LABCLIA [id number] [place] [address] [facility] WBC (Bld) [#/Vol] 13.94 10*3/uL High 3.70-11.00 [facility] Comment on above: Order Comment: Speci men Type: BLOOD SPECIMENOrdering Facility: [facility] Address: [address] [place] [address] Performed By: #### 5 8410-2 ####[facility] [place] LABCLIA [id number] [place] [address] [facility] [address] BRAIN WO IVCONon 07-08-19 CT BRAIN WO IVCON * * *Final Report* * * DATE OF EXAM: Jul 08 2024 6:11PM [facility] [place] 2[place] 0504 - CT BRAIN WO IVCON / [...] (DLP) for this visit = 1608.43 (accession [id number]), 1608.43 (accession [id number]), 706.22 (accession [id number]) mGy*cm. CT Dose Reduction Employed: No dose [...] appear t (more content not included)... Normal [facility] CTA HEAD W IVCONon 5 CTA HEAD W IVCON * * *Final Report* * * DATE OF EXAM: Jul 08 2024 6:11PM [facility] [place]NOTE 2] 0022 - CTA HEAD W IVCON / [...] (DLP) for this visit = 1608.43 (accession [id number]), 1608.43 (accession [id number]), 706.22 (accession [id number]) mGy*cm. CT Dose Reduction Employed: No dose [...] appear th (more content not included)... Normal [facility] CTA NECK W IVCONon CTA NECK W IVCON * * *Final Report* * * DATE OF EXAM: Jul 08 2024 6:11PM [facility] [place]NOTE 2] 0024 - CTA NECK W IVCON / [...] (DLP) for this visit = 1608.43 (accession [id number]), 1608.43 (accession [id number]), 706.22 (accession [id number]) mGy*cm. CT Dose Reduction Employed: No dose [...] appear th (more content not included)... Normal [facility] ECG COMPLETEon 07-08-2024 ECG COMPLETE Ventricular Rate : 7 8 BPM Atrial Rate : 78 BPM P-R Interval : 306 ms QRS Duration : 104 ms Q-T Interval : 410 ms QTC Calculation(Bazett) : 467 ms Calculated P Trumbull : -48 degrees Calculated R [place] : -19 degrees Calculated T [place] : 17 degrees UNUSUAL P AXIS, POSSIBLE ECTOPIC ATRIAL RHYTHM MINIMAL VOLTAGE CRITERIA FOR LVH, MAY BE NORMAL VARIANT ( [place] product ) BORDERLINE J POINT ELEVATIONS IN ANETROSEPTAL LEADS, WITH T WAVE INVERSIONS ABNORMAL ECG NO PREVIOUS ECGS AVAILABLE CONSIDER SERIAL EKGS, AND CORRELATE WITH TROPONINS, CLINICAL HISTORY Confirmed by MD DELBERT, BERE ([id number]) on 07/10/2024 9:15:17 AM NAME : MAUREEN HERZOG PID : [id number] : 1955 Gender : Female Race : Unknown ORD : [id number] Procedure Date : Jul 08 2024 16:55:42 Edit Date : Jul 10 2024 09:15:21 Diagnosis: UNUSUAL P AXIS, POSSIBLE ECTOPIC ATRIAL RHYTHM MINIMAL VOLTAGE CRITERIA FOR LVH, MAY BE NORMAL VARIANT ( [place] product ) BORDERLINE J POINT ELEVATIONS IN ANETROSEPTAL LEADS, WITH T WAVE INVERSIONS ABNORMAL ECG NO PREVIOUS ECGS AVAILABLE CONSIDER SERIAL EKGS, AND CORRELATE WITH TROPONINS, CLINICAL HISTORY Confirmed by MD MANDUJANO VINAYAK ([id number]) on 07/10/2024 9:15:17 AM Test Reason : Chest Pain Location : 191 : [facility] ED Overread By : MD MANDUJANO VINAYAK Edited By : MD MANDUJANO VINAYAK Referred By : , Acquired by : SUKHI COLE [facility] ED NOTEon 07-08-2024 ED NOTE HNO ID: [id number] Author: LUCERO RAMSEY RN Service: Emergency Medicine Author Type: Registered Nurse Type: ED Notes Filed: 07/08/2024 22:31 Note Text: Patient requesting meds for pain to neck. Physician updated. [facility] ED NOTE HNO ID: [id number] Author: LUCERO RAMSEY RN Service: Emergency Medicine Author Type: Registered Nurse Type: ED Notes Filed: 07/08/2024 21:40 Note Text: Bed assignment [facility] icu-2 Dr conway [phone] [facility] 60-90mins [facility] ED NOTE HNO ID: [id number] Author: LUCERO RAMSEY RN Service: Emergency Medicine Author Type: Registered Nurse Type: ED Notes Filed: 07/08/2024 21:18 Note Text: Assumed care of patient. Patient awake and alert in bed. Continues to report pain to bilateral neck, unchanged from initial presentation. Updated with current POC. 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 Normal [facility] ED NOTE HNO ID: [id number] Author: MERLE PENA, TESHA Service: Emergency Medicine Author Type: Registered Nurse Type: ED Notes Filed: 07/08/2024 21:03 Note Text: O2 sats dipping to 88-90% on r/a when sleeping. O2 2lpm via NC for support [facility] ED NOTE HNO ID: [id number] Author: LES KNOX, TESHA Service: ? Author Type: Registered Nurse Type: ED Notes Filed: 07/08/2024 19:58 Note Text: ICU doctor on line for to speak with Doctor Katie. Normal [facility] ED NOTE HNO ID: [id number] Author: KRISS COLLINS RN Service: Nursing Author Type: Registered Nurse Type: ED Notes Filed: 07/08/2024 16:53 Note Text: EKG at bedside Normal [facility] ED NOTE HNO ID: [id number] Author: KRISS COLLINS RN Service: Nursing Author Type: Registered Nurse Type: ED Notes Filed: 07/08/2024 16:15 Note Text: Has had neck pain radiating into her occiput x 2 days. She is unable to rotate her neck or extend or flex. She denies history of recent illness. She has had aneurysms in the past (2018) [facility] ED PROV NOTEon 07-08-2024 ED PROV NOTE HNO ID: [id number] Author: ALYSIA ELAM MD Service: Emergency Medicine [...] a history of aneurysm repairs done in [place] in 2019 it sounds like these are [...] is nervous/anxious. She is recently moved to [place] moved in with her sister states that she has been under a lot of stress with the break-up of her marriage that occurred in [place]. Physical Exam Vitals [07/08/24 1557] BP Pulse [...] maintain blood (more content not included)... Normal [facility] HIGH SENSITIVITY TROPONIN T (INITIAL)on 07-08-2024 Troponin T.cardiac High sensitivity method [Mass/Vol] 11 ng/L Normal <12 [facility] Comment on above: Order Comment: Speci men Type: BLOOD SPECIMENOrdering Facility: [facility] Address: [address] [place] [address] Performed By: #### L [id number] ####[facility] LABCLIA [id number] [address] HIGH SENSITIVITY TROPONIN T (SECOND)on 07-08-2024 Troponin T.cardiac High sensitivity method [Mass/Vol] 11 ng/L Normal <12 [facility] Comment on above: Order Comment: Speci men Type: BLOOD SPECIMENOrdering Facility: [facility] Address: [address] [place] [address] Performed By: #### L [id number] ####[facility] LABCLIA [id number] [place] [address] [place] HISTORY PHYSICALon HISTORY PHYSICAL HNO ID: [id number] Author: FIDENCIO ADORNO APRN.MAIL SORTER Service: Critical Care Author Type: Nurse Practitioner Type: H&P Filed: 07/09/2024 00:46 Note Text: [facility] SERVICE DATE: July 08, 2024 SERVICE TIME: 12:30 AM HPI: This is a 68-year-old female with a past medical history significant for HTN, carotid endarterectomy, chronic internal carotid occlusion, previous cerebral aneurysm with repair who presents to [facility] ED today with complaints of 2 days [...] risk of cerebral ischemia. Transport initiated to [facility] ICU. On arrival to ICU patient is [...] with sister. She is just moved from [place]. Prior to that she was homeless after [...] chest pain, sync (more content not included)... [facility] CNOVon 06-25-2024 CNOV Office Visit (AGFAMPLE) MAUREEN BARRON ([id number]) 1955 F Date Time Provider Department 06/25/24 [...] history and updated the Histories section of [facility]. She has a history of carotid endarterectomy, [...] normal, sep (more content not included)... Normal [facility] NCS and/or EMG Patienton NCS and/or EMG Patient [facility] Pulmonary Services/Neurology [address] [place] [address] MR#: [id number] Acct: [id number] Name: MAUREEN BARRON ALYSHA Rep #: [id number] : 1955 68 From: Hardeep Patrick MD Referring Dr: Jaziel Lin DO Status: REG C LI Location: [facility] Date: 06/13/24 Sex: F C NCS and/or [...] Multi Select Codes Neurology Neurology Interp Codes: 73374-66 Musc test done w/n test comp (interp) and 36065-40 Nrv cndj test 7- 8 studies (interp) 06/13/24 1311 Date Hardeep Patrick MD CC: Dr. Hardeep Patrick MD; Dr. Jaziel Lin DO; No Primary Care Physician Date Dictated: 06/13/241308 Date Transcribed: 06/13/241308 Water/Wastewater Project Engineer: AA Signed Normal [facility] Basic Metabolic Profile (BMP )on 03-12-2024 BUN/CRE 15.0 RATIO Normal 10-20 [facility] Comment on above: Performed By: #### L 100.0100, L500.2500 ####[facility] [address] [place], [address] CA,Total 8.9 mg/dL Normal 8.5-10.1 [facility] Comment on above: Performed By: #### L 100.0100, L500.2500 ####[facility] [address] [place], [address] Chloride [Moles/Vol] 104 mmol/L Normal 98-107 [facility] Comment on above: Performed By: #### L 100.0100, L500.2500 ####[facility] [address] [place], [address] CO2 [Moles/Vol] 27.0 mmol/L Normal 21.0-32.0 [facility] Comment on above: Performed By: #### L 100.0100, L500.2500 ####[facility] [address] [place], [address] Creatinine [Mass/Vol] 0.94 mg/dL Normal 0.55-1.02 [facility] Comment on above: Result Comment: The validity of the calculated GFR GFRAA in patients over 70 years has not been determined. Clinical correlation is essential. Performed By: #### L 100.0100, L500.2500 ####[facility] [address] [place], [address] ECRCL 47.55 ml/min Normal [facility] Comment on above: Performed By: #### L 100.0100, L500.2500 ####[facility] [address] [place], [address] EST GFR - AA 77 mL/min Normal >60 [facility] Comment on above: Result Comment: Afri can [place] Citizen GFR Calc Performed By: #### L 100.0100, L500.2500 ####[facility] [address] [place], [address] GAP 5 Normal 5-15 [facility] Comment on above: Performed By: #### L 100.0100, L500.2500 ####[facility] [address] [place], [address] GFR/1.73 sq M.predicted among non-blacks MDRD (S/P/Bld) [Vol rate/Area] 63 mL/min/{1.73_m2} Normal >60 [facility] Comment on above: Result Comment: Non- GFR Calc Performed By: #### L 100.0100, L500.2500 ####[facility] [address] [place], [address] Glucose [Mass/Vol] 115 mg/dL High 74-106 [facility] Comment on above: Result Comment: Fast ing Glucose result from 100 to 125 mg/dL suggests IMPAIRED HOMEOSTASIS per A.D.A. criteria. Performed By: #### L 100.0100, L500.2500 ####[facility] [address] [place], [address] Potassium [Moles/Vol] 3.6 mmol/L Normal 3.5-5.1 [facility] Comment on above: Performed By: #### L 100.0100, L500.2500 ####[facility] [address] [place], [address] Sodium [Moles/Vol] 136 mmol/L Normal 136-145 [facility] Comment on above: Performed By: #### L 100.0100, L500.2500 ####[facility] [address] [place], [address] Urea nitrogen [Mass/Vol] 14 mg/dL Normal 7-18 [facility] Comment on above: Performed By: #### L 100.0100, L500.2500 ####[facility] [address] [place], [address] CBC W/Diff, Automatedon 09-0 9-2023 Absolute Lymph 1.09 X10 3/uL Normal 0.83-4.51 [facility] Comment on above: Performed By: #### L 100.0100, L500.2500 ####[facility] [address] [place], [address] Absolute Neut 5.3 X10 3/uL Normal 2.0-7.7 [facility] Comment on above: Performed By: #### L 100.0100, L500.2500 ####[facility] [address] [place], [address] Basophils/100 WBC (Bld) 0.4 % Normal 0-1 [facility] Comment on above: Performed By: #### L 100.0100, L500.2500 ####[facility] [address] [place], [address] Eosinophils/100 WBC (Bld) 3.7 % Normal 0-5 [facility] Comment on above: Performed By: #### L 100.0100, L500.2500 ####[facility] [address] [place], [address] Erythrocyte distribution width (RBC) [Ratio] 13.2 % Normal 11.6-14.6 [facility] Comment on above: Performed By: #### L 100.0100, L500.2500 ####[facility] [address] [place], [address] Hematocrit (Bld) [Volume fraction] 45.2 % Normal 37-47 [facility] Comment on above: Performed By: #### L 100.0100, L500.2500 ####[facility] [address] [place], [address] Hemoglobin (Bld) [Mass/Vol] 15.2 g/dL High 12.0-15.0 [facility] Comment on above: Performed By: #### L 100.0100, L500.2500 ####[facility] [address] [place], [address] IG% 0.500 Normal 0.0-0.9 [facility] Comment on above: Result Comment: IG% - Immature Granulocytes (promyelocytes, myelocytes and metamyelocytes) > 1% indicates that a LEFT SHIFT is Present. Performed By: #### L 100.0100, L500.2500 ####[facility] [address] [place], [address] Lymphocytes/100 WBC (Bld) 14.1 % Low 19-41 [facility] Comment on above: Performed By: #### L 100.0100, L500.2500 ####[facility] [address] [place], [address] MCH (RBC) [Entitic mass] 32.0 pg Normal 27.0-32.0 [facility] Comment on above: Performed By: #### L 100.0100, L500.2500 ####[facility] [address] [place], [address] MCHC (RBC) [Mass/Vol] 33.6 g/dL Normal 32-36 [facility] Comment on above: Performed By: #### L 100.0100, L500.2500 ####[facility] [address] [place], [address] MCV (RBC) [Entitic vol] 95.2 fL Normal 81-99 [facility] Comment on above: Performed By: #### L 100.0100, L500.2500 ####[facility] [address] [place], [address] Monocytes/100 WBC (Bld) 12.7 % High 0-10 [facility] Comment on above: Performed By: #### L 100.0100, L500.2500 ####[facility] [address] [place], [address] Neutrophils/100 WBC (Bld) 68.6 % Normal 47-70 [facility] Comment on above: Performed By: #### L 100.0100, L500.2500 ####[facility] [address] [place], [address] Nucleated RBC (Bld) [#/Vol] 0 10*3/uL Normal 0-5 [facility] Comment on above: Performed By: #### L 100.0100, L500.2500 ####[facility] [address] [place], [address] Platelet mean volume (Bld) [Entitic vol] 9.2 fL Normal 6.2-12.0 [facility] Comment on above: Performed By: #### L 100.0100, L500.2500 ####[facility] [address] [place], [address] Platelets (Bld) [#/Vol] 272 10*3/uL Normal 150-450 [facility] Comment on above: Performed By: #### L 100.0100, L500.2500 ####[facility] [facility] [address] [place], [address] RBC (Bld) [#/Vol] 4.75 10*6/uL Normal 4.2-5.4 [facility] Comment on above: Performed By: #### L 100.0100, L500.2500 ####[facility] [address] [place], [address] RDW SD 46.5 fl High 35.1-43.9 [facility] Comment on above: Performed By: #### L 100.0100, L500.2500 ####[facility] [address] [place], [address] WBC (Bld) [#/Vol] 7.7 10*3/uL Normal 4.4-11.0 [facility] Comment on above: Performed By: #### L 100.0100, L500.2500 ####[facility] [address] [place], [address] Basic Metabolic Profile (BMP )on 03-10-2024 BUN/CRE 17.0 RATIO Normal 10-20 [facility] Comment on above: Performed By: #### L 500.2500, L100.0100 ####[facility] [address] [place], [address] CA,Total 8.9 mg/dL Normal 8.5-10.1 [facility] Comment on above: Performed By: #### L 500.2500, L100.0100 ####[facility] [address] [place], [address] Chloride [Moles/Vol] 104 mmol/L Normal 98-107 [facility] Comment on above: Performed By: #### L 500.2500, L100.0100 ####[facility] [address] [place], [address] CO2 [Moles/Vol] 23.0 mmol/L Normal 21.0-32.0 [facility] Comment on above: Performed By: #### L 500.2500, L100.0100 ####[facility] [address] [place], [address] Creatinine [Mass/Vol] 1.06 mg/dL High 0.55-1.02 [facility] Comment on above: Result Comment: The validity of the calculated GFR GFRAA in patients over 70 years has not been determined. Clinical correlation is essential. Performed By: #### L 500.2500, L100.0100 ####[facility] [address] [place], [address] ECRCL 41.12 ml/min Normal [facility] Comment on above: Performed By: #### L 500.2500, L100.0100 ####[facility] [address] [place], [address] EST GFR - AA 66 mL/min Normal >60 [facility] Comment on above: Result Comment: Afri can [place] Citizen GFR Calc Performed By: #### L 500.2500, L100.0100 ####[facility] [address] [place], [address] GAP 6 Normal 5-15 [facility] Comment on above: Performed By: #### L 500.2500, L100.0100 ####[facility] [address] [place], [address] GFR/1.73 sq M.predicted among non-blacks MDRD (S/P/Bld) [Vol rate/Area] 55 mL/min/{1.73_m2} Low >60 [facility] Comment on above: Result Comment: Non- GFR Calc Performed By: #### L 500.2500, L100.0100 ####[facility] [address] [place], [address] Glucose [Mass/Vol] 132 mg/dL High 74-106 [facility] Comment on above: Result Comment: Fast ing Glucose result greater than or equal to 126 mg/dL suggests DIABETES MELLITUS per A.D.A. criteria. Performed By: #### L 500.2500, L100.0100 ####[facility] [address] [place], [address] Potassium [Moles/Vol] 3.9 mmol/L Normal 3.5-5.1 [facility] Comment on above: Performed By: #### L 500.2500, L100.0100 ####[facility] [address] [place], [address] Sodium [Moles/Vol] 133 mmol/L Low 136-145 [facility] Comment on above: Performed By: #### L 500.2500, L100.0100 ####[facility] [address] [place], [address] Urea nitrogen [Mass/Vol] 18 mg/dL Normal 7-18 [facility] Comment on above: Performed By: #### L 500.2500, L100.0100 ####[facility] [address] [place], [address] CBC W/Diff, Automatedon 09-0 7-2023 Absolute Lymph 0.96 X10 3/uL Normal 0.83-4.51 [facility] Comment on above: Performed By: #### L 500.2500, L100.0100 ####[facility] [address] [place], [address] Absolute Neut 9.8 X10 3/uL High 2.0-7.7 [facility] Comment on above: Performed By: #### L 500.2500, L100.0100 ####[facility] [address] [place], [address] Basophils/100 WBC (Bld) 0.4 % Normal 0-1 [facility] Comment on above: Performed By: #### L 500.2500, L100.0100 ####[facility] [address] [place], [address] Eosinophils/100 WBC (Bld) 1.4 % Normal 0-5 [facility] Comment on above: Performed By: #### L 500.2500, L100.0100 ####[facility] [address] [place], [address] Erythrocyte distribution width (RBC) [Ratio] 13.2 % Normal 11.6-14.6 [facility] Comment on above: Performed By: #### L 500.2500, L100.0100 ####[facility] [address] [place], [address] Hematocrit (Bld) [Volume fraction] 49.3 % High 37-47 [facility] Comment on above: Performed By: #### L 500.2500, L100.0100 ####[facility] [address] [place], [address] Hemoglobin (Bld) [Mass/Vol] 16.2 g/dL High 12.0-15.0 [facility] Comment on above: Performed By: #### L 500.2500, L100.0100 ####[facility] [address] [place], [address] IG% 0.400 Normal 0.0-0.9 [facility] Comment on above: Result Comment: IG% - Immature Granulocytes (promyelocytes, myelocytes and metamyelocytes) > 1% indicates that a LEFT SHIFT is Present. Performed By: #### L 500.2500, L100.0100 ####[facility] [address] [place], [address] Lymphocytes/100 WBC (Bld) 7.9 % Low 19-41 [facility] Comment on above: Performed By: #### L 500.2500, L100.0100 ####[facility] [address] [place], [address] MCH (RBC) [Entitic mass] 31.1 pg Normal 27.0-32.0 [facility] Comment on above: Performed By: #### L 500.2500, L100.0100 ####[facility] [address] [place], [address] MCHC (RBC) [Mass/Vol] 32.9 g/dL Normal 32-36 [facility] Comment on above: Performed By: #### L 500.2500, L100.0100 ####[facility] [address] [place], [address] MCV (RBC) [Entitic vol] 94.6 fL Normal 81-99 [facility] Comment on above: Performed By: #### L 500.2500, L100.0100 ####[facility] [address] [place], [address] Monocytes/100 WBC (Bld) 8.9 % Normal 0-10 [facility] Comment on above: Performed By: #### L 500.2500, L100.0100 ####[facility] [address] [place], [address] Neutrophils/100 WBC (Bld) 81.0 % High 47-70 [facility] Comment on above: Performed By: #### L 500.2500, L100.0100 ####[facility] [address] [place], [address] Nucleated RBC (Bld) [#/Vol] 0 10*3/uL Normal 0-5 [facility] Comment on above: Performed By: #### L 500.2500, L100.0100 ####[facility] [address] [place], [address] Platelet mean volume (Bld) [Entitic vol] 9.5 fL Normal 6.2-12.0 [facility] Comment on above: Performed By: #### L 500.2500, L100.0100 ####[facility] [address] [place], [address] Platelets (Bld) [#/Vol] 203 10*3/uL Normal 150-450 [facility] Comment on above: Performed By: #### L 500.2500, L100.0100 ####[facility] [address] [place], [address] RBC (Bld) [#/Vol] 5.21 10*6/uL Normal 4.2-5.4 [facility] Comment on above: Performed By: #### L 500.2500, L100.0100 ####[facility] [address] [place], [address] RDW SD 46.5 fl High 35.1-43.9 [facility] Comment on above: Performed By: #### L 500.2500, L100.0100 ####[facility] [address] [place], [address] WBC (Bld) [#/Vol] 12.1 10*3/uL High 4.4-11.0 [facility] Comment on above: Performed By: #### L 500.2500, L100.0100 ####[facility] [address] [place], [address] Basic Metabolic Profile (BMP )on 03-09-2024 BUN/CRE 10.4 RATIO Normal 10-20 [facility] Comment on above: Performed By: #### L 501.2300, L100.0100, L500.2500 #### [facility] [address] [place], [address] CA,Total 9.2 mg/dL Normal 8.5-10.1 [facility] Comment on above: Performed By: #### L 501.2300, L100.0100, L500.2500 #### [facility] [address] [place], [address] Chloride [Moles/Vol] 101 mmol/L Normal 98-107 [facility] Comment on above: Performed By: #### L 501.2300, L100.0100, L500.2500 #### [facility] [address] [place], [address] CO2 [Moles/Vol] 24.0 mmol/L Normal 21.0-32.0 [facility] Comment on above: Performed By: #### L 501.2300, L100.0100, L500.2500 #### [facility] [address] [place], [address] Creatinine [Mass/Vol] 1.06 mg/dL High 0.55-1.02 [facility] Comment on above: Result Comment: The validity of the calculated GFR GFRAA in patients over 70 years has not been determined. Clinical correlation is essential. Performed By: #### L 501.2300, L100.0100, L500.2500 #### [facility] [address] [place], [address] ECRCL 41.22 ml/min Normal [facility] Comment on above: Performed By: #### L 501.2300, L100.0100, L500.2500 #### [facility] [address] [place], [address] EST GFR - AA 66 mL/min Normal >60 [facility] Comment on above: Result Comment: Afri can [place] Citizen GFR Calc Performed By: #### L 501.2300, L100.0100, L500.2500 #### [facility] [address] [place], [address] GAP 8 Normal 5-15 [facility] Comment on above: Performed By: #### L 501.2300, L100.0100, L500.2500 #### [facility] [address] [place], [address] GFR/1.73 sq M.predicted among non-blacks MDRD (S/P/Bld) [Vol rate/Area] 55 mL/min/{1.73_m2} Low >60 [facility] Comment on above: Result Comment: Non- GFR Calc Performed By: #### L 501.2300, L100.0100, L500.2500 #### [facility] [address] [place], [address] Glucose [Mass/Vol] 126 mg/dL High 74-106 [facility] Comment on above: Result Comment: Fast ing Glucose result greater than or equal to 126 mg/dL suggests DIABETES MELLITUS per A.D.A. criteria. Performed By: #### L 501.2300, L100.0100, L500.2500 #### [facility] [address] [place], [address] Potassium [Moles/Vol] 3.7 mmol/L Normal 3.5-5.1 [facility] Comment on above: Performed By: #### L 501.2300, L100.0100, L500.2500 #### [facility] [address] [place], [address] Sodium [Moles/Vol] 133 mmol/L Low 136-145 [facility] Comment on above: Performed By: #### L 501.2300, L100.0100, L500.2500 #### [facility] [address] [place], [address] Urea nitrogen [Mass/Vol] 11 mg/dL Normal 7-18 [facility] Comment on above: Performed By: #### L 501.2300, L100.0100, L500.2500 #### [facility] [address] [place], [address] CBC W/Diff, Automatedon 09-0 -2023 Absolute Lymph 1.75 X10 3/uL Normal 0.83-4.51 [facility] Comment on above: Performed By: #### L 501.2300, L100.0100, L500.2500 #### [facility] [address] [place], [address] Absolute Neut 10.8 X10 3/uL High 2.0-7.7 [facility] Comment on above: Performed By: #### L 501.2300, L100.0100, L500.2500 #### [facility] [address] [place], [address] Basophils/100 WBC (Bld) 0.6 % Normal 0-1 [facility] Comment on above: Performed By: #### L 501.2300, L100.0100, L500.2500 #### [facility] [address] [place], [address] Eosinophils/100 WBC (Bld) 0.6 % Normal 0-5 [facility] Comment on above: Performed By: #### L 501.2300, L100.0100, L500.2500 #### [facility] [address] [place], [address] Erythrocyte distribution width (RBC) [Ratio] 13.2 % Normal 11.6-14.6 [facility] Comment on above: Performed By: #### L 501.2300, L100.0100, L500.2500 #### [facility] [address] [place], [address] Hematocrit (Bld) [Volume fraction] 52.6 % High 37-47 [facility] Comment on above: Performed By: #### L 501.2300, L100.0100, L500.2500 #### [facility] [address] [place], [address] Hemoglobin (Bld) [Mass/Vol] 17.4 g/dL High 12.0-15.0 [facility] Comment on above: Performed By: #### L 501.2300, L100.0100, L500.2500 #### [facility] [address] [place], [address] IG% 0.400 Normal 0.0-0.9 [facility] Comment on above: Result Comment: IG% - Immature Granulocytes (promyelocytes, myelocytes and metamyelocytes) > 1% indicates that a LEFT SHIFT is Present. Performed By: #### L 501.2300, L100.0100, L500.2500 #### [facility] [address] [place], [address] Lymphocytes/100 WBC (Bld) 12.3 % Low 19-41 [facility] Comment on above: Performed By: #### L 501.2300, L100.0100, L500.2500 #### [facility] [address] [place], [address] MCH (RBC) [Entitic mass] 31.3 pg Normal 27.0-32.0 [facility] Comment on above: Performed By: #### L 501.2300, L100.0100, L500.2500 #### [facility] [address] [place], [address] MCHC (RBC) [Mass/Vol] 33.1 g/dL Normal 32-36 [facility] Comment on above: Performed By: #### L 501.2300, L100.0100, L500.2500 #### [facility] [address] [place], [address] MCV (RBC) [Entitic vol] 94.6 fL Normal 81-99 [facility] Comment on above: Performed By: #### L 501.2300, L100.0100, L500.2500 #### [facility] [address] [place], [address] Monocytes/100 WBC (Bld) 9.9 % Normal 0-10 [facility] Comment on above: Performed By: #### L 501.2300, L100.0100, L500.2500 #### [facility] [address] [place], [address] Neutrophils/100 WBC (Bld) 76.2 % High 47-70 [facility] Comment on above: Performed By: #### L 501.2300, L100.0100, L500.2500 #### [facility] [address] [place], [address] Nucleated RBC (Bld) [#/Vol] 0 10*3/uL Normal 0-5 [facility] Comment on above: Performed By: #### L 501.2300, L100.0100, L500.2500 #### [facility] [address] [place], [address] Platelet mean volume (Bld) [Entitic vol] 9.8 fL Normal 6.2-12.0 [facility] Comment on above: Performed By: #### L 501.2300, L100.0100, L500.2500 #### [facility] [address] [place], [address] Platelets (Bld) [#/Vol] 246 10*3/uL Normal 150-450 [facility] Comment on above: Performed By: #### L 501.2300, L100.0100, L500.2500 #### [facility] [address] [place], [address] RBC (Bld) [#/Vol] 5.56 10*6/uL High 4.2-5.4 [facility] Comment on above: Performed By: #### L 501.2300, L100.0100, L500.2500 #### [facility] [address] [place], [address] RDW SD 46.2 fl High 35.1-43.9 [facility] Comment on above: Performed By: #### L 501.2300, L100.0100, L500.2500 #### [facility] [address] [place], [address] WBC (Bld) [#/Vol] 14.2 10*3/uL High 4.4-11.0 [facility] Comment on above: Performed By: #### L 501.2300, L100.0100, L500.2500 #### [facility] [address] [place], [address] CORTISOL SERUMon 03-09-2024 CORTISOL 14.80 ug/dL Normal 3.44-22.45 [facility] Comment on above: Result Comment: Adul t (AM) 5.27 - 22.45 ug/dL Adult (PM) 3.44 - 16.76 ug/dL Performed By: #### L 509.6000 ####[facility] [address] [place], [address] Phosphoruson 03-09-2024 Phosphate [Mass/Vol] 2.4 mg/dL Low 2.5-4.9 [facility] Comment on above: Performed By: #### L 501.2300, L100.0100, L500.2500 #### [facility] [address] [place], [address] CBC W/Diff, Automatedon Absolute Lymph 1.69 X10 3/uL Normal 0.83-4.51 [facility] Comment on above: Performed By: #### L 501.9520, L100.0100, L500.4050 #### [facility] [address] [place], [address] Absolute Neut 8.1 X10 3/uL High 2.0-7.7 [facility] Comment on above: Performed By: #### L 501.9520, L100.0100, L500.4050 #### [facility] [address] [place], [address] Basophils/100 WBC (Bld) 0.6 % Normal 0-1 [facility] Comment on above: Performed By: #### L 501.9520, L100.0100, L500.4050 #### [facility] [address] [place], [address] Eosinophils/100 WBC (Bld) 1.1 % Normal 0-5 [facility] Comment on above: Performed By: #### L 501.9520, L100.0100, L500.4050 #### [facility] [address] [place], [address] Erythrocyte distribution width (RBC) [Ratio] 13.3 % Normal 11.6-14.6 [facility] Comment on above: Performed By: #### L 501.9520, L100.0100, L500.4050 #### [facility] [address] [place], [address] Hematocrit (Bld) [Volume fraction] 49.2 % High 37-47 [facility] Comment on above: Performed By: #### L 501.9520, L100.0100, L500.4050 #### [facility] [address] [place], [address] Hemoglobin (Bld) [Mass/Vol] 16.5 g/dL High 12.0-15.0 [facility] Comment on above: Performed By: #### L 501.9520, L100.0100, L500.4050 #### [facility] [address] [place], [address] IG% 0.500 Normal 0.0-0.9 [facility] Comment on above: Result Comment: IG% - Immature Granulocytes (promyelocytes, myelocytes and metamyelocytes) > 1% indicates that a LEFT SHIFT is Present. Performed By: #### L 501.9520, L100.0100, L500.4050 #### [facility] [address] [place], [address] Lymphocytes/100 WBC (Bld) 15.3 % Low 19-41 [facility] Comment on above: Performed By: #### L 501.9520, L100.0100, L500.4050 #### [facility] [address] [place], [address] MCH (RBC) [Entitic mass] 31.7 pg Normal 27.0-32.0 [facility] Comment on above: Performed By: #### L 501.9520, L100.0100, L500.4050 #### [facility] [address] [place], [address] MCHC (RBC) [Mass/Vol] 33.5 g/dL Normal 32-36 [facility] Comment on above: Performed By: #### L 501.9520, L100.0100, L500.4050 #### [facility] [address] [place], [address] MCV (RBC) [Entitic vol] 94.4 fL Normal 81-99 [facility] Comment on above: Performed By: #### L 501.9520, L100.0100, L500.4050 #### [facility] [address] [place], [address] Monocytes/100 WBC (Bld) 9.3 % Normal 0-10 [facility] Comment on above: Performed By: #### L 501.9520, L100.0100, L500.4050 #### [facility] [address] [place], [address] Neutrophils/100 WBC (Bld) 73.2 % High 47-70 [facility] Comment on above: Performed By: #### L 501.9520, L100.0100, L500.4050 #### [facility] [address] [place], [address] Nucleated RBC (Bld) [#/Vol] 0 10*3/uL Normal 0-5 [facility] Comment on above: Performed By: #### L 501.9520, L100.0100, L500.4050 #### [facility] [address] [place], [address] Platelet mean volume (Bld) [Entitic vol] 9.4 fL Normal 6.2-12.0 [facility] Comment on above: Performed By: #### L 501.9520, L100.0100, L500.4050 #### [facility] [address] [place], [address] Platelets (Bld) [#/Vol] 292 10*3/uL Normal 150-450 [facility] Comment on above: Performed By: #### L 501.9520, L100.0100, L500.4050 #### [facility] [address] [place], [address] RBC (Bld) [#/Vol] 5.21 10*6/uL Normal 4.2-5.4 [facility] Comment on above: Performed By: #### L 501.9520, L100.0100, L500.4050 #### [facility] [address] [place], [address] RDW SD 46.5 fl High 35.1-43.9 [facility] Comment on above: Performed By: #### L 501.9520, L100.0100, L500.4050 #### [facility] [address] [place], [address] WBC (Bld) [#/Vol] 11.0 10*3/uL Normal 4.4-11.0 [facility] Comment on above: Performed By: #### L 501.9520, L100.0100, L500.4050 #### [facility] [address] [place], [address] Comprehensive Metabolic Prof ilon 03-08-2024 Albumin [Mass/Vol] 3.3 g/dL Normal 3.2-5.0 [facility] Comment on above: Performed By: #### L 501.9520, L100.0100, L500.4050 #### [facility] [address] [place], [address] Albumin/Globulin [Mass ratio] 0.8 {ratio} Low 0.9-2.4 [facility] Comment on above: Performed By: #### L 501.9520, L100.0100, L500.4050 #### [facility] [facility] [address] [place], [address] ALK P 73 U/L Normal 45-117 [facility] Comment on above: Performed By: #### L 501.9520, L100.0100, L500.4050 #### [facility] [address] [place], [address] ALT [Catalytic activity/Vol] 22 U/L Normal 13-56 [facility] Comment on above: Performed By: #### L 501.9520, L100.0100, L500.4050 #### [facility] [address] [place], [address] AST [Catalytic activity/Vol] 26 U/L Normal 15-37 [facility] Comment on above: Performed By: #### L 501.9520, L100.0100, L500.4050 #### [facility] [address] [place], [address] Bilirubin [Mass/Vol] 0.60 mg/dL Normal 0.20-1.00 [facility] Comment on above: Result Comment: For patients on eltrombopag therapy, use of Dimension [place] TBIL is not recommended. Performed By: #### L 501.9520, L100.0100, L500.4050 #### [facility] [address] [place], [address] BUN/CRE 13.2 RATIO Normal 10-20 [facility] Comment on above: Performed By: #### L 501.9520, L100.0100, L500.4050 #### [facility] [address] [place], [address] CA,Total 8.5 mg/dL Normal 8.5-10.1 [facility] Comment on above: Performed By: #### L 501.9520, L100.0100, L500.4050 #### [facility] [address] [place], [address] Chloride [Moles/Vol] 106 mmol/L Normal 98-107 [facility] Comment on above: Performed By: #### L 501.9520, L100.0100, L500.4050 #### [facility] [address] [place], [address] CO2 [Moles/Vol] 24.0 mmol/L Normal 21.0-32.0 [facility] Comment on above: Performed By: #### L 501.9520, L100.0100, L500.4050 #### [facility] [address] [place], [address] Creatinine [Mass/Vol] 1.44 mg/dL High 0.55-1.02 [facility] Comment on above: Result Comment: The validity of the calculated GFR GFRAA in patients over 70 years has not been determined. Clinical correlation is essential. Performed By: #### L 501.9520, L100.0100, L500.4050 #### [facility] [address] [place], [address] ECRCL 30.56 ml/min Normal [facility] Comment on above: Performed By: #### L 501.9520, L100.0100, L500.4050 #### [facility] [address] [place], [address] EST GFR - AA 47 mL/min Low >60 [facility] Comment on above: Result Comment: Afri can [place] Citizen GFR Calc Performed By: #### L 501.9520, L100.0100, L500.4050 #### [facility] [address] [place], [address] GAP 7 Normal 5-15 [facility] Comment on above: Performed By: #### L 501.9520, L100.0100, L500.4050 #### [facility] [address] [place], [address] GFR/1.73 sq M.predicted among non-blacks MDRD (S/P/Bld) [Vol rate/Area] 39 mL/min/{1.73_m2} Low >60 [facility] Comment on above: Result Comment: Non- GFR Calc Performed By: #### L 501.9520, L100.0100, L500.4050 #### [facility] [address] [place], [address] Globulin (S) [Mass/Vol] 3.9 g/dL Normal 2.2-4.2 [facility] Comment on above: Performed By: #### L 501.9520, L100.0100, L500.4050 #### [facility] [address] [place], [address] Glucose [Mass/Vol] 134 mg/dL High 74-106 [facility] Comment on above: Result Comment: Fast ing Glucose result greater than or equal to 126 mg/dL suggests DIABETES MELLITUS per A.D.A. criteria. Performed By: #### L 501.9520, L100.0100, L500.4050 #### [facility] [address] [place], [address] Potassium [Moles/Vol] 3.7 mmol/L Normal 3.5-5.1 [facility] Comment on above: Performed By: #### L 501.9520, L100.0100, L500.4050 #### [facility] [address] [place], [address] Sodium [Moles/Vol] 137 mmol/L Normal 136-145 [facility] Comment on above: Performed By: #### L 501.9520, L100.0100, L500.4050 #### [facility] [address] [place], [address] T PROT 7.2 g/dL Normal 6.4-8.2 [facility] Comment on above: Performed By: #### L 501.9520, L100.0100, L500.4050 #### [facility] [address] [place], [address] Urea nitrogen [Mass/Vol] 19 mg/dL High 7-18 [facility] Comment on above: Performed By: #### L 501.9520, L100.0100, L500.4050 #### [facility] [address] [place], [address] Consultation - Orthopedicson 03-08-2024 Consultation - Orthopedics [facility] Medical Records Department [address] [place] [address] Consultation - Orthopedics 03/08/24 1159 MR#: [id number] Acct: [id number] Name: MAUREEN ANSARI ALYSHA Rep #: [id number] : 1955 68 From: Jaziel Lin DO PCP: Care Physician,No Primary Status:ADM IN Location: [facility] LI026-7 HPI Consult Data Date of Consult: 03/08/24 [...] left hip fracture 4 years ago in [place]. She denies any numbness or tingling. Patient's [...] for physical and Occupational Therapy possible placement. [facility] Medical History CKD (chronic kidney disease) Cannabis [...] 09:35 Temperature (more content not included)... Normal [facility] Magnesiumon 03-08-2024 Magnesium [Mass/Vol] 2.1 mg/dL Normal 1.6-2.6 [facility] Comment on above: Order Comment: Comme nts: may add to ED labs Performed By: #### L 501.5200 #### [facility] [address] [place], [address] Phosphoruson 03-08-2024 Phosphate [Mass/Vol] 2.8 mg/dL Normal 2.5-4.9 [facility] Comment on above: Performed By: #### L 501.2300 ####[facility] [address] [place], [address] T4 Free Directon 03-08-2024 T4 FREE DIRECT 1.05 ng/dL Normal 0.76-1.46 [facility] Comment on above: Performed By: #### L 506.0400 ####[facility] [address] [place], [address] Thyroid Stim Hormone (TSH)on 03-08-2024 TSH 41.400 uIU/mL High 0.358-3.740 [facility] Comment on above: Performed By: #### L 501.9520, L100.0100, L500.4050 #### [facility] [address] [place], [address] 12 Lead EKGon 03-07-2024 12 Lead EKG [facility] Cardiovascular Services [address] [place] [address] 12 Lead EKG 03/07/24 2152 MR#: [id number] Acct: [id number] Name: MAUREEN ANSARI ALYSHA Rep #: [id number] : 1955 68 From: Sedrick Alcaraz MD Attending Dr: Dr. Isaias Rincon MD Status: ADM IN Ordering Dr: Isela Isaac DO Date: 03/07/24 Location: [facility] Sex: F C Admitted: 03/07/24 Test Reason [...] Abnormal ECG Confirmed by SEDRICK ALCARAZ MD ([id number]), magazine editor MARIBEL DE SANTIAGO ([id number]) on 03/08/2024 1:51:51 PM Referred By: Confirmed By:SEDRICK ALCARAZ MD 03/08/24 1351 Date Sedrick Alcaraz MD CC: Dr. Isaias Rincon MD; Dr. Isela Isaac DO; No Primary Care Physician Signed Normal [facility] Basic Metabolic Profile (BMP )on 03-07-2024 BUN/CRE 13.0 RATIO Normal 10-20 [facility] Comment on above: Performed By: #### L 500.2500, L100.0100 ####[facility] [address] [place], [address] CA,Total 9.2 mg/dL Normal 8.5-10.1 [facility] Comment on above: Performed By: #### L 500.2500, L100.0100 ####[facility] [address] [place], [address] Chloride [Moles/Vol] 104 mmol/L Normal 98-107 [facility] Comment on above: Performed By: #### L 500.2500, L100.0100 ####[facility] [address] [place], [address] CO2 [Moles/Vol] 27.0 mmol/L Normal 21.0-32.0 [facility] Comment on above: Performed By: #### L 500.2500, L100.0100 ####[facility] [address] [place], [address] Creatinine [Mass/Vol] 1.61 mg/dL High 0.55-1.02 [facility] Comment on above: Result Comment: The validity of the calculated GFR GFRAA in patients over 70 years has not been determined. Clinical correlation is essential. Performed By: #### L 500.2500, L100.0100 ####[facility] [address] [place], [address] ECRCL 24.36 ml/min Normal [facility] Comment on above: Performed By: #### L 500.2500, L100.0100 ####[facility] [address] [place], [address] EST GFR - AA 41 mL/min Low >60 [facility] Comment on above: Result Comment: Afri can [place] Citizen GFR Calc Performed By: #### L 500.2500, L100.0100 ####[facility] [address] [place], [address] GAP 7 Normal 5-15 [facility] Comment on above: Performed By: #### L 500.2500, L100.0100 ####[facility] [address] [place], [address] GFR/1.73 sq M.predicted among non-blacks MDRD (S/P/Bld) [Vol rate/Area] 34 mL/min/{1.73_m2} Low >60 [facility] Comment on above: Result Comment: Non- GFR Calc Performed By: #### L 500.2500, L100.0100 ####[facility] [address] [place], [address] Glucose [Mass/Vol] 110 mg/dL High 74-106 [facility] Comment on above: Result Comment: Fast ing Glucose result from 100 to 125 mg/dL suggests IMPAIRED HOMEOSTASIS per A.D.A. criteria. Performed By: #### L 500.2500, L100.0100 ####[facility] [address] [place], [address] Potassium [Moles/Vol] 3.0 mmol/L Low 3.5-5.1 [facility] Comment on above: Performed By: #### L 500.2500, L100.0100 ####[facility] [address] [place], [address] Sodium [Moles/Vol] 138 mmol/L Normal 136-145 [facility] Comment on above: Performed By: #### L 500.2500, L100.0100 ####[facility] [address] [place], [address] Urea nitrogen [Mass/Vol] 21 mg/dL High 7-18 [facility] Comment on above: Performed By: #### L 500.2500, L100.0100 ####[facility] [address] [place], [address] CBC W/Diff, Automatedon 09-0 4-2023 Absolute Lymph 1.44 X10 3/uL Normal 0.83-4.51 [facility] Comment on above: Performed By: #### L 500.2500, L100.0100 ####[facility] [address] [place], [address] Absolute Neut 6.8 X10 3/uL Normal 2.0-7.7 [facility] Comment on above: Performed By: #### L 500.2500, L100.0100 ####[facility] [address] [place], [address] Basophils/100 WBC (Bld) 1.1 % High 0-1 [facility] Comment on above: Performed By: #### L 500.2500, L100.0100 ####[facility] [address] [place], [address] Eosinophils/100 WBC (Bld) 1.3 % Normal 0-5 [facility] Comment on above: Performed By: #### L 500.2500, L100.0100 ####[facility] [address] [place], [address] Erythrocyte distribution width (RBC) [Ratio] 13.3 % Normal 11.6-14.6 [facility] Comment on above: Performed By: #### L 500.2500, L100.0100 ####[facility] [address] [place], [address] Hematocrit (Bld) [Volume fraction] 51.2 % High 37-47 [facility] Comment on above: Performed By: #### L 500.2500, L100.0100 ####[facility] [address] [place], [address] Hemoglobin (Bld) [Mass/Vol] 17.1 g/dL High 12.0-15.0 [facility] Comment on above: Performed By: #### L 500.2500, L100.0100 ####[facility] [address] [place], [address] IG% 0.300 Normal 0.0-0.9 [facility] Comment on above: Result Comment: IG% - Immature Granulocytes (promyelocytes, myelocytes and metamyelocytes) > 1% indicates that a LEFT SHIFT is Present. Performed By: #### L 500.2500, L100.0100 ####[facility] [address] [place], [address] Lymphocytes/100 WBC (Bld) 15.7 % Low 19-41 [facility] Comment on above: Performed By: #### L 500.2500, L100.0100 ####[facility] [address] [place], [address] MCH (RBC) [Entitic mass] 31.3 pg Normal 27.0-32.0 [facility] Comment on above: Performed By: #### L 500.2500, L100.0100 ####[facility] [address] [place], [address] MCHC (RBC) [Mass/Vol] 33.4 g/dL Normal 32-36 [facility] Comment on above: Performed By: #### L 500.2500, L100.0100 ####[facility] [address] [place], [address] MCV (RBC) [Entitic vol] 93.8 fL Normal 81-99 [facility] Comment on above: Performed By: #### L 500.2500, L100.0100 ####[facility] [address] [place], [address] Monocytes/100 WBC (Bld) 8.1 % Normal 0-10 [facility] Comment on above: Performed By: #### L 500.2500, L100.0100 ####[facility] [address] [place], [address] Neutrophils/100 WBC (Bld) 73.5 % High 47-70 [facility] Comment on above: Performed By: #### L 500.2500, L100.0100 ####[facility] [address] [place], [address] Nucleated RBC (Bld) [#/Vol] 0 10*3/uL Normal 0-5 [facility] Comment on above: Performed By: #### L 500.2500, L100.0100 ####[facility] [address] [place], [address] Platelet mean volume (Bld) [Entitic vol] 8.9 fL Normal 6.2-12.0 [facility] Comment on above: Performed By: #### L 500.2500, L100.0100 ####[facility] [address] [place], [address] Platelets (Bld) [#/Vol] 311 10*3/uL Normal 150-450 [facility] Comment on above: Performed By: #### L 500.2500, L100.0100 ####[facility] [address] [place], [address] RBC (Bld) [#/Vol] 5.46 10*6/uL High 4.2-5.4 [facility] Comment on above: Performed By: #### L 500.2500, L100.0100 ####[facility] [address] [place], [address] RDW SD 45.8 fl High 35.1-43.9 [facility] Comment on above: Performed By: #### L 500.2500, L100.0100 ####[facility] [address] [place], [address] WBC (Bld) [#/Vol] 9.2 10*3/uL Normal 4.4-11.0 [facility] Comment on above: Performed By: #### L 500.2500, L100.0100 ####[facility] [address] [place], [address] Emergency Department Summary on 03-07-2024 Emergency Department Summary [facility] Medical Records Department [address] [place] [address] Emergency Department Summary 03/07/24 MR#: [id number] Acct: [id number] Name: MAUREEN ANSARI ALYSHA Rep #: [id number] : 1955 68 From: Isela Isaac DO PCP: Care Physician,No Primary Status:ADM IN Location: [address] History of Present Illness Chief [...] her left hip after a fracture in [place] 4 years ago. She does not have a primary care physician. [facility] Medical History (Updated 03/07/24 @ 21:28 by [...] no t (more content not included)... Normal [facility] H AND P Exam - Hospitaliston 03-07-2024 H&P Exam - Hospitalist [facility] Medical Records Department [address] [place] [address] H P Exam - Hospitalist 03/07/242121 MR#: [id number] Acct: [id number] Name: MAUREEN ANSARI ALYSHA Rep #: [id number] : 1955 68 From: Tere Brown MD PCP: Care Physician,No Primary Status:ADM [facility] - General General Date of Admission: 03/07/24 Date of Service: 03/07/24 Chief Complaint: Fall, left leg pain. HPI Narrative The patient is a 68 y/o F w/ PMHx: Tobacco use, HTN, HLD, Hypothyroidism, Carotid disease status post right CEA who presents to the [facility] ED on 03/07/24 with history of [...] a fracture remotely 4 years ago in [place]. She denies having any primary care physician [...] GFR 34 with no clear comparisons unfortunately. [facility] Medical History CKD (chronic kidney disease) Cannabis [...] Normal Respiratory (more content not included)... 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: Signed Normal [facility] Tibia Fibula 2 Viewson 03-07 Tibia Fibula 2 Views [facility] Imaging Services [address] [place], [place] [address] Tibia Fibula 2 Views MR#: [id number] Acct: [id number] Name: MAUREEN BARRON Rep #: [id number] : 1955 F 68 From: Oral grimaldo DO PCP: Care Physician,No Primary Status: PRE ER Study: Tibia Fibula 2 Views Date of Exam: 03/07/24 Exam# [id number] Ordering Dr: Isela Isaac [place] [id number] EXAM: XR LEFT TIBIA AND FIBULA, 2 [...] Isela Isaac, ; No Primary Care Physician 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 09-25-2024 09:28-0400 Heart rate 83 /min Argenis Nagy DO Work Phone: [facility] 09-25-2024 09:28-0400 SaO2% (BldA) [Mass fraction] 96 % Argenis Nagy DO Work Phone: [facility] 09-25-2024 09:28-0400 Systolic blood pressure 157 mm[Hg] Argenis Nagy DO Work Phone: [facility] 07-31-2024 08:58-0500 Diastolic blood pressure 84 mm[Hg] Argenis Nagy DO Work Phone: [facility] 07-31-2024 08:58-0500 Systolic blood pressure 156 mm[Hg] Argenis Nagy DO Work Phone: [facility] 07-31-2024 08:50-0500 Heart rate 80 /min Argenis Nagy DO Work Phone: [facility] 07-31-2024 08:50-0500 SaO2% (BldA) [Mass fraction] 95 % Argenis Nagy DO Work Phone: [facility] 06-25-2024 13:23-0500 Body height 152.4 cm Marianela Sheets DO Work Phone: [facility] 06-25-2024 13:23-0500 Body mass index (BMI) [Ratio] 23.24 kg/m2 Marianela Sheets DO Work Phone: [facility] 06-25-2024 13:23-0500 Body temperature 97.7 [degF] Marianela Sheets DO Work Phone: [facility] 06-25-2024 13:23-0500 Body weight 53.98 kg Marianela Sheets DO Work Phone: [facility] 06-25-2024 13:23-0500 Diastolic blood pressure 72 mm[Hg] Marianela Sheets DO Work Phone: [facility] 06-25-2024 13:23-0500 Heart rate 58 /min Marianela Sheets DO Work Phone: [facility] 06-25-2024 13:23-0500 Respiratory rate 16 /min Marianela Sheets DO Work Phone: [facility] 06-25-2024 13:23-0500 SaO2% (BldA) [Mass fraction] 98 % Marianela Sheets DO Work Phone: [facility] 06-25-2024 13:23-0500 Systolic blood pressure 118 mm[Hg] Marianela Sheets DO Work Phone: [facility] Encounters Encounter Date Encounter Type Care Provider Facility Start: 12-03-2024 End: 12-03-2024 ambulatory MARIANELA EDWARDS Facility:[facility] Start: 11-23-2024 End: 11-27-2024 Refill Argenis Nagy DO Work Phone: Vascular Surgery Comment on above: Refill Request Start: 11-19-2024 End: 11-19-2024 ambulatory Brayden Underwood Facility:[facility] Start: 11-16-2024 End: 11-16-2024 Telephone encounter Marianela C Sheets DO Work Phone: [facility] Comment on above: Lab Orders Start: 11-08-2024 End: 11-08-2024 ambulatory Marianela C Sheets DO Work Phone: [facility] Comment on above: High blood pressure Start: 11-07-2024 End: 11-08-2024 Telephone encounter Marianela C Sheets DO Work Phone: [facility] Comment on above: Patient Update Start: 11-06-2024 End: 11-06-2024 ambulatory ARGENIS NAGY Facility:[facility] Start: 10-30-2024 End: 11-07-2024 Follow-up encounter Marianela C Sheets DO Work Phone: [facility] Start: 10-19-2024 ambulatory UNKNOWN PROVIDER Facili ty:[facility] Start: 10-19-2024 End: 10-19-2024 Subsequent hospital visit by physician [facility] Radiology Comment on above: Peripheral vascular disease [I73.9] Start: 10-18-2024 End: 10-18-2024 ambulatory [facility] Facility:[facility] Start: 10-03-2024 End: 12-03-2024 Follow-up encounter Marianela C Sheets DO Work Phone: [facility] Comment on above: Results Start: 09-25-2024 End: 09-25-2024 ambulatory MARIANELA C SHEETS Facility:[facility] Start: 09-25-2024 End: 09-25-2024 Patient encounter procedure Argenis Nagy DO Work Phone: Vascular Surgery Comment on above: Peripheral vascular disease (HCC) (Primary Dx); Screening for nephropathy Start: 09-23-2024 End: 09-24-2024 Refill Marianela C Sheets DO Work Phone: [facility] Comment on above: Refill Request Start: 09-11-2024 End: 09-18-2024 Telephone encounter Marianela C Sheets DO Work Phone: [facility] Comment on above: Lab Orders Start: 08-31-2024 End: 10-31-2024 Follow-up encounter Marianela Chris Grace DO Work Phone: [facility] Start: 08-30-2024 End: 08-30-2024 ambulatory MARIANELA C SHEETS Facility:[facility] Start: 08-30-2024 End: 08-30-2024 Subsequent hospital visit by physician [facility] D[facility] Work Phone: Radiology Comment on above: Asymptomatic menopau se [Z78.0] Encounter for screen ing mammogram for breast cancer [Z12.31] Start: 08-29-2024 End: 08-29-2024 ambulatory ARGENIS NAGY Facility:[facility] Start: 08-29-2024 End: 08-29-2024 ambulatory ARGENIS NAGY Facility:[facility] Start: 07-31-2024 End: 07-31-2024 ambulatory ARGENIS NAGY Facility:[facility] Start: 07-31-2024 End: 07-31-2024 Patient encounter procedure Argenis Nagy DO Work Phone: Vascular Surgery Comment on above: Symptomatic varicose veins of both lower extremities (Primary Dx); Claudication in peripheral vascular disease (HCC); Primary hypertension Start: 07-30-2024 End: 07-30-2024 Telephone encounter Marianela Edwards DO Work Phone: [facility] Comment on above: Lab Orders Start: 07-26-2024 End: 07-26-2024 ambulatory MARIANELABERNADETTE EDWARDS Facility:[facility] Start: 07-25-2024 End: 07-25-2024 ambulatory Aan Guerra RN Work Phone: [facility] Start: 07-25-2024 End: 07-25-2024 Home visit Ana Guerra RN Work Phone: [facility] Comment on above: Transition Of Care ( TCM f/u - Appointment) Bi-weekly phone contact (Recurring) for Transitional Care Management Start: 07-24-2024 End: 07-25-2024 Refill Marianela C Sheets DO Work Phone: [facility] Comment on above: Refill Request Start: 07-11-2024 End: 07-12-2024 ambulatory Ana Guerra RN Work Phone: [facility] Start: 07-11-2024 End: 07-12-2024 Home visit Ana Guerra RN Work Phone: [facility] Comment on above: Transition Of Care ( Left CC Bety AMA 07/10/24) Initial phone contact for Transitional Care Management Start: 07-09-2024 End: 07-09-2024 Evaluation and management of inpatient FIDENCIO ADORNO Facility:[id number] Start: 07-09-2024 End: 07-10-2024 Evaluation and management of inpatient PIETER LEA Facility:[id number] Start: 07-08-2024 End: 07-08-2024 Emergency department patient visit ALYSIA ELAM Facility:[facility] Start: 06-25-2024 End: 06-25-2024 ambulatory MARIANELA C SHEETS Facility:[facility] Start: 06-25-2024 End: 06-25-2024 Patient encounter procedure Marianela C Sheets DO Work Phone: [facility] Comment on above: Hypothyroidism, acqu ired (Primary Dx); Claudication (HCC); Asymptomatic menopause; Encounter for screening mammogram for breast cancer; Screening for lipid disorders; Encounter for immunization; Screening for endocrine, metabolic and immunity disorder; Screening for blood disease; Well adult exam Start: 06-25-2024 End: 06-25-2024 Patient encounter status Marianela C Sheets DO Work Phone: [facility] Start: 06-13-2024 ambulatory Hardeep Patrick Facility:[facility] Start: 06-13-2024 End: 06-13-2024 ambulatory Jaziel Lin Facility:[facility] Start: 03-07-2024 ambulatory Jaziel Lin Facili ty:[facility] Start: 03-07-2024 End: 03-17-2024 Evaluation and management of inpatient [facility] Facility:[facility] Procedures Date Procedure Procedure Detail Performing Clinician [...] RSV Vaccine (1 - 1-dose 75+ series) [facility] Start: 11-08-2029 Lipid panel Lipid Screening [facility] Start: 07-26-2029 Lipid panel Lipid Screening [facility] Start: 07-26-2027 Diabetes Screening Diabetes Screenin g [facility] Start: 07-09-2027 Diabetes Screening Diabetes Screenin g [facility] Start: 08-30-2025 Screening for malign ant neoplasm of breast Mammogram Screening [facility] Start: 06-25-2025 Annual PCP Team Director [employer] donya Disease Visit Annual PCP Team Chronic Disease Visit [facility] Start: 06-25-2025 BP Controlled (<130/80) BP Controlle d (<130/80) [facility] Start: 06-25-2025 Covid-19 Vaccine ( season) Covid-19 Vaccine ( season) [facility] Comment on above: Postponed from 03/04 (Declined at this time) Start: 06-25-2025 Shingrix Vaccine (1 of 2) Shingrix Vaccine (1 of 2) [facility] Comment on above: Postponed from 09/26 (Declined at this time) Start: 06-25-2025 Urine microalbumin profile DTaP,Tdap,Td Vaccine (1 - Tdap) [facility] Comment on above: Postponed from 09/26 (Declined at this time) Start: 04-01-2025 End: 04-01-2025 Patient encounter procedure 04/01/2025 9:40 AM EDT Office Visit Cardiology [address] [place] [address] Miguel Aguayo MD [address] [facility], [address] [place] [address] Hypertension Cardiology Comment on above: Hypertension Start: 12-31-2024 End: 12-31-2024 Nursing evaluation of patient and report 12/31/2024 8:45 AM EDT Nurse Visit Cardiology [address] [place] [id number] [facility], Nurse Card [address] [place] [address] Dx: Encounter for screening for cardiovascular disorders [Z13.6] Cardiology Comment on above: Dx: Encounter for sc reening for cardiovascular disorders [Z13.6] Start: 12-31-2024 End: 12-31-2024 Patient encounter procedure Nuclear Medicine Comment on above: Dx: Encounter for sc reening for cardiovascular disorders [Z13.6] Start: 12-20-2024 End: 12-20-2024 ambulatory 12/20/2024 4:20 PM EDT [address] [id number] Marianela Edwards DO [address] [place], [place] [id number] thyroid med check [facility] Comment on above: thyroid med check Start: 11-16-2024 End: 02-15-2025 Thyrotropin [Units/volume] in Serum or Plasma THYROID STIMULATING HORMONE Lab Routine Hypothyroidism, acquired Expected: 11/16/2024, Expires: 02/15/2025 [facility] Work Phone: Comment on above: Expected: 11/16/2024 , Expires: 02/15/2025 Start: 11-06-2024 End: 11-06-2024 Patient encounter procedure 11/06/2024 9:30 AM EDT Office Visit Vascular Surgery [address] [place], [place] [address] Argenis Nagy DO [address] [place], [place] [id number] follow up after testing Vascular Surgery Comment on above: follow up after test ing Start: 10-19-2024 End: 10-19-2024 Patient encounter procedure 10/19/2024 1:30 PM EDT Appointment Radiology [address] [place] [address] Peripheral vascular disease (HCC) [I73.9] Radiology Comment on above: Peripheral vascular disease (HCC) [I73.9] Start: 09-25-2024 End: 09-25-2024 Patient encounter procedure 09/25/2024 9:00 AM EDT Office Visit Vascular Surgery [address] [place], [place] [id number] Argenis Nagy DO [address] [place] [address] follow up after testing Vascular Surgery Comment on above: follow up after test ing Start: 09-18-2024 End: 12-18-2024 Thyrotropin [Units/volume] in Serum or Plasma THYROID STIMULATING HORMONE Lab Routine Hypothyroidism, acquired Expected: 09/18/2024, Expires: 12/18/2024 [facility] Work Phone: Comment on above: Expected: 09/18/2024 , Expires: 12/18/2024 Start: 08-30-2024 End: 08-30-2024 Patient encounter procedure Mammogram Comment on above: Encounter for screen ing mammogram for breast cancer [Z12.31] Asymptomatic menopau se [Z78.0] Start: 08-29-2024 End: 08-29-2024 Patient encounter procedure 08/29/2024 2:30 PM EST Office Visit Vasculary Surgery [address] [place], [place] [phone] Claudication in peripheral vascular disease (HCC) [I73.9] Vasculary Surgery Comment on above: Claudication in renee pheral vascular disease (HCC) [I73.9] Start: 08-29-2024 End: 08-29-2024 Patient encounter procedure 08/29/2024 12:30 PM EST Office Visit Vasculary Surgery [address] [place] [address] Symptomatic varicose veins of both lower extremities [I83.893] Vasculary Surgery Comment on above: Symptomatic varicose veins of both lower extremities [I83.893] Start: 07-31-2024 End: 07-31-2024 Patient encounter procedure 07/31/2024 8:30 AM EST Office Visit Vascular Surgery [address] [place], [place] [id number] Argenis Nagy, [address] [place] [address] Anurizms, blockage in arteries in neck. Vascular Surgery Comment on above: Anurizms, blockage i n arteries in neck. Start: 07-26-2024 End: 07-26-2024 Patient encounter procedure 07/26/2024 2:20 PM EST Office Visit [facility] [address] [place], [place] [phone] Marianela Edwards DO [address] [place] [address] [facility] 07/10/24 - Stiff neck, Headache, HTN [facility] Comment on above: TCM [facility] 07/10/24 - Stiff neck, Headache, HTN Start: 07-09-2024 End: 07-09-2024 Patient encounter procedure 07/09/2024 1:05 PM EST Appointment Radiology [address] [place] [phone] Asymptomatic menopause [Z78.0] Radiology Comment on above: Asymptomatic menopau se [Z78.0] Start: 07-04-2024 Advance Directive Discussion Advance Directive Discussion [facility] Start: 06-25-2024 End: 09-24-2024 CBC panel - Blood by Automated count COMPLETE BLOOD COUNT Lab Routine Screening for blood disease Expected: 06/25/2024, Expires: 09/24/2024 [facility] Comment on above: Expected: 06/25/2024 , Expires: 09/24/2024 Start: 06-25-2024 End: 09-24-2024 Comprehensive metabolic 2000 panel - Serum or Plasma COMPREHENSIVE METABOLIC PANEL Lab Routine Screening for endocrine, metabolic and immunity disorder Expected: 06/25/2024, Expires: 09/24/2024 [facility] Comment on above: Expected: 06/25/2024 , Expires: 09/24/2024 Start: 06-25-2024 End: 09-24-2024 Lipid 1996 panel - Serum or Plasma LIPID PANEL BASIC Lab Routine Screening for lipid disorders Expected: 06/25/2024, Expires: 09/24/2024 [facility] Comment on above: Expected: 06/25/2024 , Expires: 09/24/2024 Start: 06-25-2024 End: 09-24-2024 Thyrotropin [Units/volume] in Serum or Plasma THYROID STIMULATING HORMONE Lab Routine Hypothyroidism, acquired Expected: 06/25/2024, Expires: 09/24/2024 [facility] Comment on above: Expected: 06/25/2024 , Expires: 09/24/2024 Start: 2021 Screening for osteoporosis Bone Density Screening [facility] Start: 2016 RSV Vaccine (1 - Ris k 60-74 years 1-dose series) RSV Vaccine (1 - Risk 60-74 years 1-dose series) [facility] Start: 2001 Diabetes Screening Diabetes Screenin g [facility] Start: 2001 Lipid panel Lipid Screening [facility] Start: 2001 Screening for malign ant neoplasm of colon [facility] Start: 1996 Screening for malign ant neoplasm of breast Mammogram Screening [facility] Start: 1974 Anxiety Screening Anxiety Screening [facility] Start: 1974 BP Controlled (<130/80) BP Controlle d (<130/80) [facility] Start: 1974 Depression Screening Depression Scre ening [facility] End: 10-25-2025 CTA Abdominal, Pelvis and Lower extremity vessels W contrast IV CTA ABD/PEL LOWER EXTREM W IVCON Radiology Routine Peripheral vascular disease (HCC) 1 Occurrences starting 09/25/2024 until 10/25/2025 [facility] Work Phone: Comment on above: 1 Occurrences starti ng 09/25/2024 until 10/25/2025 End: 07-25-2025 DBT Breast - bilateral screening BRAD SCREENING [facility] Radiology Routine Encounter for screening mammogram for breast cancer 1 Occurrences starting 06/25/2024 until 07/25/2025 [facility] Work Phone: Comment on above: 1 Occurrences starti ng 06/25/2024 until 07/25/2025 DBT Breast - bilater al screening BRAD SCREENING [facility] Radiology Routine Encounter for screening mammogram for breast cancer 08/30/2024 1:33 PM EST [facility] Work Phone: End: 07-25-2025 DXA Skeletal system.axial Views for bone density DXA-AXIAL [facility] Radiology Routine Asymptomatic menopause 1 Occurrences starting 06/25/2024 until 07/25/2025 [facility] Comment on above: 1 Occurrences starti ng 06/25/2024 until 07/25/2025 DXA Skeletal system.axial Views for bone density DXA-AXIAL SKELETON Radiology Routine Asymptomatic menopause 08/30/2024 1:57 PM EST [facility] Work Phone: Im adm prq id subq/i m njxs 1 vaccine IMADM PRQ ID SUBQ/IM NJXS 1 VACC Immunization/Injection Routine Encounter for immunization Ordered: 06/25/2024 [facility] Comment on above: Ordered: 06/25/2024 End: 07-31-2025 US Vein - bilateral US VENOUS INCOMPETENCY [facility] Lab Routine Symptomatic varicose veins of both lower extremities 1 Occurrences starting 07/31/2024 until 07/31/2025 [facility] Work Phone: Comment on above: 1 Occurrences starti ng 07/31/2024 until 07/31/2025 End: 07-31-2025 US.doppler Extremity arteries - bilateral for physiologic artery study at rest and with exercise PVR LEG W/EXC [facility] Vascular Lab Routine Claudication in peripheral vascular disease (HCC) 1 Occurrences starting 07/31/2024 until 07/31/2025 [facility] Comment on above: 1 Occurrences starti ng 07/31/2024 until 07/31/2025 Immunizations Immunization Date Immunization Notes Care Provider Deloris martinez 06-25-2024 influenza, high dose seasonal, preservative-free Marianela Sheets DO Work Phone: [facility] 06-25-2024 pneumococcal conjuga te (PCV20) vaccine, 20 valent (PREVNAR 20) Marianela Sheets DO Work Phone: [facility] 06-25-2024 pneumococcal Conjuga te, unspecified formulation Marianela Sheets DO Work Phone: [facility] Payers Date Payer Category Payer Medicare (Managed Care) [id number]. [id number] 2024 Medicaid [id number] 2024 Unknown [facility] MEDICARE ADVANTAGE HMO [id number] 2024-Present [phone] [address] [place] [address] [facility] [id number] 2024 Medicare [id number] 2024 Medicare [id number] 2024 Self-pay 2024 Medicaid [id number] 2024 Medicaid [id number] 2021 Medicare MEDICARE MEDICAR E A AND B [id number] 2021-2024 [address] [address] [place] [address] Medicare [id number] 2021 Medicare [id number] Unknown [id number] 62 Unknown [id number] [id number] 62 Unknown [id number] 2.16.840.1.974519.3.579.2.4 62 Unknown [id number] 2.16.840.1.368984.3.579.2.4 62 Unknown [id number] [id number] 62 Unknown [id number] 2.16.840.1.011370.3.579.2.4 62 Unknown [id number] 2.16.840.1.032801.3.579.2.4 62 Unknown [id number] 2.16.840.1.914551.3.579.2.4 62 Unknown [id number] 2.16.840.1.243049.3.579.2.4 62 Unknown [id number] 2.16.840.1.360303.3.579.2.4 62 Unknown [id number] 2.16.840.1.531385.3.579.2.4 62 Unknown [id number] 2.16.840.1.033677.3.579.2.4 62 Unknown [id number] 2.16.840.1.746585.3.579.2.4 62 Unknown [id number] 2.16.840.1.785483.3.579.2.4 62 Unknown [id number] 2.16.840.1.470609.3.579.2.4 62 Unknown [id number] 62 Social History Date Type Detail Facility Start: 06-25-2024 End: 07-08-2024 Tobacco smoking status NHIS Smokes tobacco daily [facility] History of tobacco use Cigarette Smoker [facility] Start: 06-25-2024 End: 07-08-2024 Tobacco use and exposure Smokeless tobacco non-user [facility] Start: 06-25-2024 Alcoholic beverage intake Curr ent drinker of alcohol (finding) [facility] Start: 06-25-2024 End: 07-09-2024 History of Social function [facility] Start: 06-25-2024 End: 07-09-2024 Tobacco use panel [facility] National Score (1-10 0), lower number is lower risk 99 [facility] Start: 06-25-2024 Alcohol Comment rarely [facility] Start: 1955 Sex assigned at Female C [facility] Start: 04-30-2024 Gender identity Identifies as female gender (finding) [facility] Start: 04-30-2024 Sexual orientation Heterosexual (heidi ybarra) [facility] Start: 07-11-2024 End: 09-25-2024 Alcoholic beverage intake [facility] the [place], or water [employer] threatened to shut off services in your home in past 12Mo No [facility] (I/We) worried wheth er (my/our) food would run out before (I/we) got money to buy more. Sometimes true [facility] In the past 12 month s, was there a time when you were not able to pay the mortgage or rent on time? Yes [facility] Goals Date Patient Goal Desired Activity /State [...] Please review and advise. Kimberlee Lofton RN [facility] 11-27-2024 Miscellaneous Notes Patient phones requesting refills as follows: Requested Prescriptions Pending Prescriptions Disp Refills cilostazol (PLETAL) 50 mg tablet [Pharmacy Med Name: CILOSTAZOL 50 MG TABLET] 180 tablet 0 Sig: TAKE 1 TABLET BY MOUTH TWICE A DAY Please review and advise. Kimberlee Lofton RN documented in this encounter [facility] 11-16-2024 Note Addended by: MARIANELA EDWARDS on: 11/16/2024 09:35 AM Modules accepted: Orders [facility] 11-16-2024 Telephone encounter Note Order attached Marianela Edwards DO [facility] 11-16-2024 Miscellaneous Notes Addended by: MARIANELA EDWARDS on: 11/16/2024 09:35 AM Modules accepted: Orders Order attached Marianela Edwards DO ----- Message from Shari Erickson MA sent at 10/05/2024 7:26 AM EDT ----- Remind pt. Time to recheck TSH. Shari López MA documented in this encounter [facility] 11-16-2024 Telephone encounter Note ----- Message from Shari Erickson MA sent at 10/05/2024 7:26 AM EDT ----- Remind pt. Time to recheck TSH. Shari López MA [facility] 11-08-2024 Telephone encounter Note Sent to [facility]. Sharee White LPN [facility] 11-08-2024 Miscellaneous Notes Sent to [facility]. Sharee White LPN Spoke to [...] for awhile. Requesting script be sent to [facility]. Please advise. Gloria Srinivasan MA documented in this encounter [facility] 11-08-2024 Telephone encounter Note I called and spoke to pt. Her BP has been going up. She would like to restart norvasc 10 mg daily. I advised her to make an appt in 2 weeks for NV BP recheck after starting norvasc 10 mg Marianela Edwards DO [facility] 11-08-2024 Miscellaneous Notes I called and spoke to pt. Her BP has been going up. She would like to restart norvasc 10 mg daily. I advised her to make an appt in 2 weeks for NV BP recheck after starting norvasc 10 mg Marianela Edwards DO documented in this encounter [facility] 11-07-2024 Telephone encounter Note Spoke to pt - she would like to restart norvasc 10 mg daily and will f/u in 2 weeks for NV BP Recheck Marianela Edwards DO [facility] 11-07-2024 Telephone encounter Note Cecy Amaral NP who was out doing a home assessment on patient left message stating patient's BP today was elevated, left arm 180/88 and right arm 176/84. Patient's sister Leena also left message stating patient is willing to start on a BP medication now as her BP has been elevated for awhile. Requesting script be sent to [facility]. Please advise. Gloria Srinivasan MA [facility] 11-06-2024 Note HNO ID: [id number] Author: ARGENIS NAGY DO Service: ? Author Type: Physician Type: Progress Notes Filed: 12/04/2024 14:41 Note Text: [facility] [place] DEPARTMENT OF VASCULAR SURGERY OUTPATIENT VISIT DATE [...] activities Will have her follow up in [place] with Dr. Padgett SIGNATURE: Argenis Nagy DO PATIENT NAME: Maureen Barron DATE: November 06, 2024 TIME: 10:51 AM [facility] 10-19-2024 History of Presen t illness Narrative [...] PATIENT PRESENTS WITH AN IMPLANTABLE OR ATTACHED APPLICATION PERFORMANCE ENGINEER: No ALLERGIES: Reviewed and unchanged CONTRAST ALLERGY: [...] TIME: 2:14 PM documented in this encounter [facility] 10-19-2024 Note HNO ID: [id number] Author: PHILIP LUZ TECHNOLOGIST Service: Radiology Author [...] PATIENT PRESENTS WITH AN IMPLANTABLE OR ATTACHED APPLICATION PERFORMANCE ENGINEER: No ALLERGIES: Reviewed and unchanged CONTRAST ALLERGY: [...] DATE: October 19, 2024 TIME: 2:14 PM [facility] 10-19-2024 Nurse Note Radiology Service Progress [...] DATE: October 19, 2024 TIME: 1:56 PM [facility] 10-19-2024 Nurse Note Radiology Service Progress [...] TIME: 1:56 PM documented in this encounter [facility] 10-05-2024 Telephone encounter Note Steve on pt. Vm with all information. Shari López MA [facility] 10-05-2024 Miscellaneous Notes Lm on pt. Vm with all information. Shari López MA Please call pt- her thyroid levels are now a little high. I will adjust her medication and we should recheck TSH in 6 weeks Marianela Edwards DO documented in this encounter [facility] 10-03-2024 Telephone encounter Note Please call pt- her thyroid levels are now a little high. I will adjust her medication and we should recheck TSH in 6 weeks Marianela Edwards DO [facility] 09-25-2024 Note HNO ID: [id number] Author: ARGENIS NAGY DO Service: ? Author Type: Physician Type: Progress Notes Filed: 09/25/2024 13:14 Note Text: [facility] [place] DEPARTMENT OF VASCULAR SURGERY OUTPATIENT VISIT DATE [...] DATE: September 25, 2024 TIME: 9:48 AM [facility] 09-25-2024 History of Presen t illness Narrative Images from the original note were not included. [facility] [place] DEPARTMENT OF VASCULAR SURGERY OUTPATIENT VISIT DATE [...] TIME: 9:48 AM documented in this encounter [facility] 09-24-2024 Telephone encounter Note pharmacy electronically requesting refills as follows: Last seen 06/25/24 . Last refill 1/25/25 . Requested Prescriptions Pending Prescriptions Disp Refills levothyroxine (SYNTHROID) 125 mcg tablet [Pharmacy Med Name: LEVOTHYROXINE 125 MCG TABLET] 30 tablet 1 Sig: TAKE 1 TABLET BY MOUTH EVERY DAY Please review and advise. Gloria Srinivasan MA [facility] 09-24-2024 Miscellaneous Notes pharmacy electronically requesting refills as follows: Last seen 06/25/24 . Last refill 07/28/24 . Requested Prescriptions Pending Prescriptions Disp Refills levothyroxine (SYNTHROID) 125 mcg tablet [Pharmacy Med Name: LEVOTHYROXINE 125 MCG TABLET] 30 tablet 1 Sig: TAKE 1 TABLET BY MOUTH EVERY DAY Please review and advise. Gloria Srinivasan MA documented in this encounter [facility] 09-18-2024 Telephone encounter Note Patient notified. Shari López MA [facility] 09-18-2024 Miscellaneous Notes Patient notified. Shari López MA Order attached Marianela Edwards DO ----- Message from Shari Erickson MA sent at 07/31/2024 8:22 AM EST ----- Please put in reminder for pt to have TSH in 6 weeks, documented in this encounter [facility] 09-18-2024 Telephone encounter Note Order attached Marianela Edwards DO [facility] 09-11-2024 Telephone encounter Note ----- Message from Shari Erickson MA sent at 07/31/2024 8:22 AM EST ----- Please put in reminder for pt to have TSH in 6 weeks, [facility] 08-30-2024 History of Presen t illness Narrative [...] PATIENT PRESENTS WITH AN IMPLANTABLE OR ATTACHED APPLICATION PERFORMANCE ENGINEER: No RADIOLOGY DEPARTMENT: Bone Density PERIPHERAL IV DATA: Not applicable SIGNED BY: RT Carmen(Carmelina) August 30, 2024 1:20 PM documented in this encounter [facility] 08-30-2024 Note HNO ID: [id number] Author: ELIDIA GRAFF RT(Carmelina) Service: ? Author [...] PATIENT PRESENTS WITH AN IMPLANTABLE OR ATTACHED APPLICATION PERFORMANCE ENGINEER: No RADIOLOGY DEPARTMENT: Bone Density PERIPHERAL IV DATA: Not applicable SIGNED BY: Elidia Graff RT(R) August 30, 2024 1:20 PM [facility] 08-30-2024 History of Presen t illness Narrative [...] PATIENT PRESENTS WITH AN IMPLANTABLE OR ATTACHED APPLICATION PERFORMANCE ENGINEER: No RADIOLOGY DEPARTMENT: Mammography PERIPHERAL IV DATA: Not applicable SIGNED BY: Tyler Henry August 30, 2024 12:51 PM documented in this encounter [facility] 08-30-2024 Note HNO ID: [id number] Author: MARIAM MOJICA Mammo Tech Service: ? Author Type: Stripper Shovel Operator Type: Progress Notes Filed: 08/30/2024 12:52 Note [...] PATIENT PRESENTS WITH AN IMPLANTABLE OR ATTACHED APPLICATION PERFORMANCE ENGINEER: No RADIOLOGY DEPARTMENT: Mammography PERIPHERAL IV DATA: Not applicable SIGNED BY: Mariam Mojica [employer] August 30, 2024 12:51 PM [facility] 07-31-2024 Note HNO ID: [id number] Author: ARGENIS NAGY DO Service: ? Author Type: Physician Type: Progress Notes Filed: 07/31/2024 10:00 Note Text: [facility] [place] DEPARTMENT OF VASCULAR SURGERY OUTPATIENT VISIT DATE July 31, 2024 OUTPATIENT VISIT TYPE CONSULTATION SERVICE DATE: 07/31/2024 SERVICE TIME: 8:38 AM PRIMARY CARE PHYSICIAN: Marianela Edwards DO REFERRING PROVIDER: Marianela Edwards [address] [place] [id number] Consult requested for an opinion regarding the [...] a history of intracranial aneurysm treatment in [place]. She has had vein treatment in [place] where veins were dissolved. She admits to [...] spondylosis. Consider d (more content not included)... [facility] 07-31-2024 History of Presen t illness Narrative Images from the original note were not included. [facility] [place] DEPARTMENT OF VASCULAR SURGERY OUTPATIENT VISIT DATE July 31, 2024 OUTPATIENT VISIT TYPE CONSULTATION SERVICE DATE: 07/31/2024 SERVICE TIME: 8:38 AM PRIMARY CARE PHYSICIAN: Marianela Edwards DO REFERRING PROVIDER: Marianela Edwards [address] [facility] [address] Consult requested for an opinion regarding the [...] a history of intracranial aneurysm treatment in [place]. She has had vein treatment in [place] where veins were dissolved. She admits to [...] TIME: 8:38 AM documented in this encounter [facility] 07-30-2024 Telephone encounter Note ----- Message from Marianelahazel Edwards DO sent at 07/28/2024 11:39 AM EST ----- Please put in reminder for pt to have TSH in 6 weeks, FLP/CMP in 3 months Marianela Edwards DO [facility] 07-30-2024 Miscellaneous Notes ----- Message from Marianelahazel Edwards DO sent at 07/28/2024 11:39 AM EST ----- Please put in reminder for pt to have TSH in 6 weeks, FLP/CMP in 3 months Marianelahazel Edwards DO documented in this encounter [facility] 07-25-2024 Note HNO ID: [id number] Author: ANA GUERRA RN Service: ? Author [...] questions performed? Addressed 07/11/24 N/A Concerns: N/A Tab Cutter plan for next outreach: Will follow-up in about 2wks. Signature: Ana Guerra RN July 25, 2024 [facility] 07-25-2024 History of Presen t illness Narrative AG TRANSITIONAL CARE MANAGEMENT (TCM) FOLLOW-UP NOTE Patient identified by name and date of : NO Diagnosis: N/A Summary: TCM RN received a notification that pt's TCM appointment for 07/26/24 was canceled. TCM RN called pt to reschedule appointment - left msg. Health leads screening tool questions performed? Addressed 07/11/24 N/A Concerns: N/A Tab Cutter plan for next outreach: Will follow-up in about 2wks. Signature: Ana Guerra RN July 25, 2024 documented in this encounter [facility] 07-25-2024 Telephone encounter Note Left message on patients voicemail with all information. Reminder placed. Shari López MA [facility] 07-25-2024 Miscellaneous Notes Left message on patients [...] Gloria Srinivasan MA documented in this encounter [facility] 07-25-2024 Note Patient Outreach (AG ACM) MAUREEN ANSARI ([id number]) 1955 F T Date Time Provider Department [...] questions performed? Addressed 07/11/24 N/A Concerns: N/A Tab Cutter plan for next outreach: Will follow-up in [...] Encounter Status:Closed by ANA GUERRA on 07/25/24 [facility] 07-24-2024 Telephone encounter Note Please call pt- her thyroid levels are low. I have increased synthroid to 112 mcg daily and we will recheck TSH in 2 months Marianela Edwards DO [facility] 07-24-2024 Telephone encounter Note patient phones requesting refills as follows: Last seen 06/25/24 . Last refill previous pcp . Requested Prescriptions Pending Prescriptions Disp Refills levothyroxine (SYNTHROID) 100 mcg tablet 90 tablet 1 Sig: Take 1 tablet by mouth daily before breakfast. Please review and advise. Gloria Srinivasan MA [facility] 07-11-2024 Note HNO ID: [id number] Author: ANA GUERRA RN Service: ? Author Type: Registered Nurse Type: Progress Notes Filed: 07/12/2024 16:06 Note Text: TRANSITIONAL CARE MANAGEMENT (TCM) COMMUNITY MONITORING PROGRAM - [facility] Provider Action/FYI: Still has neck stiffness and pain No headaches Pt hasn't checked her BP yet today TCM appointment with PCP - 07/26/24 (1st available) SUMMARY: Pt discharged from [facility] on 07/10/24. RISK 15 Admitted for: ART HTN Left-sided neck pain Patient seen Inpatient JOAQUIM Visit? N/A. Patient seen ICARE Program? N/A. Contact made with patient: Yes Hi my name is Ana Guerra RN and I am calling from the [facility] on behalf of your PCP, Marianela Edwards, [...] today. Admits that prior to moving to [place], she had poor eating habits; and had [...] lack companionship? No Pt moved here from [place], shortly before January 2024. She is living w/ her sister in [place]. States that they are the only 2 left in their family, besides some cousins. Her sister is helping her get her Social Security from [place] to [place] figured out. Do you ever need help [...] like to speak with a social work steam meter reader to help give you support for any of these needs? No It can be normal to feel anxious or down during a time like this. Would you like to talk to a mental health professional about how you have been feeling? No Pt admits that she has been really' depressed. Prior to moving to [place], pt was homeless, after going through a stressful divorce. States that she lost her 3 bedroom home. Declined to speak w/ a SW at this time. ACT (more content not included)... [facility] 07-11-2024 History of Presen t illness Narrative TRANSITIONAL CARE MANAGEMENT (TCM) COMMUNITY MONITORING PROGRAM - GILEAD Provider Action/FYI: Still has neck stiffness and pain No headaches Pt hasn't checked her BP yet today TCM appointment with PCP - 07/26/24 (1st available) SUMMARY: Pt discharged from [facility] on 07/10/24. RISK 15 Admitted for: ART HTN Left-sided neck pain Patient seen Inpatient JOAQUIM Visit? N/A. Patient seen ICARE Program? N/A. Contact made with patient: Yes Hi my name is Ana Guerra RN and I am calling from the [facility] on behalf of your PCP, Marianela [...] hospital? Same Pt admits that she Left [facility]. States she isn't normally like that, but [...] today. Admits that prior to moving to [place], she had poor eating habits; and had [...] lack companionship? No [place], shortly before January 2024. She is living w/ her sister in [place]. States that they are the only 2 left in their family, besides some cousins. Her sister is helping her get her Social Security from [place] figured out. Do you ever need help [...] like to speak with a social work steam meter reader to help give you support for any of these needs? No It can be normal to feel anxious or down during a time like this. Would you like to talk to a mental health professional about how you have been feeling? No Pt admits that she has been really' depressed. Prior to moving to [place], pt was homeless, after going through a [...] Ana Guerra, TESHA documented in this encounter [facility] 07-11-2024 Note Patient Outreach (AG ACM) MAUREEN ANSARI ([id number]) 1955 F CHT Date Time Provider Department 07/11/24 ANA GUERRA [facility] During your visit today, we recorded the following information about you: Ana Guerra, RN 07/12/2024 4:06 PM Signed TRANSITIONAL CARE MANAGEMENT (TCM) COMMUNITY MONITORING PROGRAM - ARLIN Provider Action/FYI: Still has neck stiffness and pain No headaches Pt hasn't checked her BP yet today TCM appointment with PCP - 07/26/24 (1st available) SUMMARY: Pt discharged from [facility] on 07/10/24. RISK 15 Admitted for: ART HTN Left-sided neck pain Patient seen Inpatient JOAQUIM Visit? N/A. Patient seen ICARE Program? N/A. Contact made with patient: Yes Hi my name is Ana Guerra RN and I am calling from the [facility] on behalf of your PCP, Marianela Edwards, [...] hospital? Same Pt admits that she Left [facility]. States she isn't normally like that, but [...] today. Admits that prior to moving to [place], she had poor eating habits; and had [...] lack companionship? No [place] shortly before January 2024. She is living w/ her sister in [place]. States that they are the only 2 left in their family, besides some cousins. Her sister is helping her get her Social [place] from [place] figured out. Do you ever need help [...] like to speak with a social work steam meter reader to help give you support for any of these needs? No It can be normal to feel anxious or down during a time like this. Would you like to talk to a mental health professional about how you have been feeling? No Pt admits that she has been adrian (more content not included)... [facility] 07-10-2024 Note HNO ID: [id number] Author: PERI GRESHAM RN Service: Care Management Author Type: Registered Nurse Type: Care Mgt Progress Note Filed: 07/10/2024 10:58 Note Text: CARE MANAGEMENT PROGRESS NOTE SERVICE DATE: 07/10/2024 SERVICE TIME: 1039 LOS: 1 day IMM Follow Up Copy Given: Yes Copy given to:: Patient Method: In Person SIGNATURE: Peri Gresham RN PATIENT NAME: Maureen Barron DATE: July 10, 2024 TIME: 10:[address] [facility] 07-09-2024 Note HNO ID: [id number] Author: TERE PATEL LSW Service: Care Management Author Type: 2Nd Grade Teacher Type: Care Mgt Initial Assessment Filed: 07/09/2024 [...] Home Advance Directives Current Advance Directive: None Delicatessen Manager Attempted to Assist with AD Completion: Yes [...] Be able to go home, General wellness Furman of Choice Explained: Furman of Choice Given: No Reason Not Given: [...] were you homeless or living in a retirement (including now)?: Yes Utilities In the past 12 months has the [employer], [employer], oil, or water [employer] threatened to shut off services in your [...] dual plan (has Medicaid), was homeless in [place] for a short time prior to moving to [place] after getting a divorce and losing her home, informed SW she is still trying to establish herself with providers in [facility]. SW discussed drug use with patient as patient tested positive for amphetamines on admission. Patient reports she is not an active user but there are people at the [employer] complex where her sister lives cooking meth underneath the [employer] and it is getting everywhere. It's coming [...] stable, sister able to provide transport at id. Anticipate no needs. SIGNATURE: ALTON Casiano PATIENT NAME: Maureen Barron DATE: July 09, 2024 TIME: 2:[address] [facility] 07-09-2024 Note HNO ID: [id number] Author: JESI MATSON MD Service: Critical Care [...] occlusions managed previously by vascular surgeon in [place]. Patient reports that she has appointment with vascular surgeon to establish care in [place]. No LOC, syncope, neurologic deficits. 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 No concern at this time for evolution of aneurysm or bleed. - GI/DVT Prophylaxis: Not indicated/SCDs - F/E/N: LR 75/replace as needed/heart healthy diet - Code Status: Full code; discussed with patient 07/09/2024 with Fidencio Nelson APRN.MAIL SORTER. ICU Checklist Last Documented/Reviewed time: 07/09/2024 10:26 AM ICU Code Status History assess/Full code by default: No, active code status present ------- (more content not included)... [facility] 07-09-2024 Note SARS-COV-2 (AGENT OF COVID-19) RNA: Not detected INFLUENZA A RNA: Not detected INFLUENZA B RNA: Not detected RESPIRATORY SYNCYTIAL VIRUS (RSV) RNA: Not detected [facility] Comment on above: Performed By: #### 9 [id number] #### [facility] CLIA [id number] [address] [id number] [place] 06-25-2024 Note HNO ID: [id number] Author: MARIANELA EDWARDS, DO Service: ? Author Type: Physician Type: Progress Notes Filed: 07/08/2024 08:52 Note Text: SUBJECTIVE: 68 year old female here with her sister to establish. I have fully reviewed the past medical, surgical, social and family history and updated the Histories section of [facility]. She has a history of carotid endarterectomy, [...] YR, HIGH DOSE, (more content not included)... [facility] 06-25-2024 History of Presen t illness Narrative SUBJECTIVE: 68 year old female here with her sister to establish. I have fully reviewed the past medical, surgical, social and family history and updated the Histories section of [employer]. She has a history of carotid endarterectomy, [...] Marianela Edwards DO documented in this encounter [facility] 06-25-2024 Instructions Gloria Srinivasan MA - 06/25/2024 [...] usual activities immediately. documented in this encounter [facility] 03-17-2024 Note [facility] Medical Records Department [address] [place] [id number] Discharge Summary 03/17/24 1049 MR#: [id number] Acct: [id number] Name: MAUREEN ANSARI ALYSHA Rep #: [id number] : 1955 68 From: Sukhi Forbes DO PCP: Care Physician,No Primary Status:ADM IN Location: [id number] Providers Date of Admission: 03/07/24 Primary Care [...] Plans were to get her into a [facility] facility though he had issues regards to the patient having [employer] insurance. Patient is now residing here permanently living with her sister. Plan is for her to go to [facility] facility but patient is feeling much better [...] Provider: Sukhi Forbes (more content not included)... [facility] Evaluation note Diagnosis Hypothyroidism, acquired- Primary Unspecified [...] health care facility [facility] Diagnosis Hypothyroidism, acquired Unspecified hypothyroidism [facility] Diagnosis Symptomatic varicose veins of both lower extremities- Primary Varicose veins of lower extremities with other complications Claudication in peripheral vascular disease (HCC) Peripheral vascular disease, unspecified Primary hypertension Unspecified essential hypertension [facility] Diagnosis Asymptomatic menopause [facility] Diagnosis Encounter for screening mammogram for breast cancer [facility] Diagnosis Hypothyroidism, acquired- Primary Unspecified hypothyroidism documented in this encounter [facility] note* Diagnosis Peripheral vascular disease (HCC)- Primary Peripheral vascular disease, unspecified Screening for nephropathy documented in this encounter [facility] note* Diagnosis Peripheral vascular disease Peripheral vascular disease, unspecified documented in this encounter [facility] note* Diagnosis Age-related osteoporosis without current pathological fracture- Primary Senile osteoporosis documented in this encounter [facility] note* Diagnosis Hypertension, essential- Primary Unspecified essential hypertension documented in this encounter [facility] note* Diagnosis Hypothyroidism, acquired- Primary Unspecified hypothyroidism documented in this encounter [facility] for visit Narrative* Diagnostic Procedure Only (Routine) - Closed Specialty Diagnoses / Procedures Referred By Mayda green Referred To Contact XR IMAGING Diagnoses Asymptomatic menopause Procedures DXA-AXIAL SKELETON DXA BONE DENSITY STUDY / SITES AXIAL SKEL Marianela Edwards, DO [address] [place] [address] Phone: tel: fax: [place] [address] Referral ID Status Reason Start Date Expiration Date V isits Requested Visits Authorized [id number] Closed Auto-Generate d Referral 07/06/2024 07/03/2025 [address] [facility] for visit Narrative* Diagnostic Procedure Only (Routine) - Closed Specialty Diagnoses / Procedures Referred By Mayda green Referred To Contact BR IMAGING Diagnoses Encounter for screening mammogram for breast cancer Procedures BRAD SCREENING W RONALD SCREENING DIGITAL BREAST TOMOSYNTHESIS BI SCREENING MAMMOGRAPHY BI 2-VIEW BREAST INC CAD Marianela Edwards, DO [address] [place] [address] Phone: tel: fax: [facility] [address] [place] [address] Referral ID Status Reason Start Date Expiration Date V isits Requested Visits Authorized [id number] Closed Auto-Generate d Referral 06/25/2024 07/25/2025 [address] [facility] for visit Narrative* MRI/CT (Routine) - New Request Specialty Diagnoses / Procedures Referred By Mayda green Referred To Contact CT IMAGING Diagnoses Peripheral vascular disease Procedures CTA ABD/PEL LOWER EXTREM W IVCON CTA ABDL AORTA&BI ILIOFEM W/CONTRAST&POSTP Argenis Nagy, DO [address] [place] [address] Phone: tel: fax: [facility] [place] [address] Referral ID Status Reason Start Date Expiration Date Visits Requested Visits Authorized [id number] New Request Auto-Genera isabel Referral Patient Cleared - Admin/Chair man/Directo r advise to proceed or did not respond 09/25/2024 10/25/2025 1 0 [facility] Summary Purpose Family History No Family History [...] OFFICE/OUTPATIENT NEW HIGH MDM 60 MINUTES Marianela Edwards, DO [address] [place] [address] Argenis Nagy, DO [address] [address] Referral ID Status Reason Start Date Expiration Date Visits Requested Visits Authorized [id number] Pending Review PCP Requested Referral 06/25/2025 1 1 Specialty Diagnoses / Procedures Referred By Contac t Referred To Contact XR IMAGING Diagnoses Asymptomatic menopause Procedures DXA-AXIAL SKELETON DXA BONE DENSITY STUDY 1/> SITES AXIAL SKEL Marianela Edwards DO [address] [place] [address] [place] [address] Referral ID Status Reason Start Date Expiration Date Visits Requested Visits Authorized [id number] Authorized Auto-Generat ed Referral 07/06/2024 07/03/2025 1 1 Specialty Diagnoses / Procedures Referred By Contac t Referred To Contact BR IMAGING Diagnoses Encounter for screening mammogram for breast cancer Procedures BRAD SCREENING W RONALD SCREENING DIGITAL BREAST TOMOSYNTHESIS BI SCREENING MAMMOGRAPHY BI 2-VIEW BREAST INC CAD Grace, Marianela Perez, DO [address] [place] [address] [facility] [address] [place] [address] Referral ID Status Reason Start Date Expiration Date Visits Requested Visits Authorized [id number] Pending Review Auto-Generat ed Referral 07/25/2025 1 1 Specialty Diagnoses / Procedures Referred By Contac t Referred To Contact Cardiology Diagnoses Primary hypertension Procedures CONSULT TO CARDIOLOGY OFFICE/OUTPATIENT [facility] 60 MINUTES Argenis Nagy, DO [address] [place] [address] Referral ID Status Reason Start Date Expiration Date Visits Requested Visits Authorized [id number] Authorized PCP Requested Referral 07/31/2024 07/31/2025 1 1 Specialty Diagnoses / Procedures Referred By Contac t Referred To Contact [facility] Diagnoses Claudication in peripheral vascular disease (HCC) Procedures PVR LEG W/EXC RAMAN VAS LAB N-INVAS PHYSIOLOGIC STD LXTR ART COMPL BI Argenis Nagy, DO [address] [place] [address] [facility] [address] [address] Referral ID Status Reason Start Date Expiration Date Visits Requested Visits Authorized [id number] Authorized Auto-Generat ed Referral 07/31/2024 07/31/2025 1 1 Specialty Diagnoses / Procedures Referred By Contac t Referred To Contact [facility] Diagnoses Symptomatic varicose veins of both lower extremities Procedures US VENOUS INCOMPETENCY RAMAN VAS LAB DUP-SCAN XTR VEINS COMPLETE BILATERAL STUDY Argenis Nagy DO [address] [place] [address] [facility] [address] [address] Referral ID Status Reason Start Date Expiration Date Visits Requested Visits Authorized [id number] Authorized Auto-Generat ed Referral 07/31/2024 07/31/2025 1 1 Additional Source Comments INFORMATION SOURCE (unrecogn ized section and content) DATE CREATED AUTHOR 06/27/2024 [facility] DATE CREATED AUTHOR AUTHOR'S ORGANIZ ATION 07/15/2024 [facility] DATE CREATED AUTHOR AUTHOR'S ORGANIZ ATION 10/21/2024 [facility] DATE CREATED AUTHOR AUTHOR'S ORGANIZ ATION 11/17/2024 [facility] DATE CREATED AUTHOR AUTHOR'S ORGANIZ ATION 12/04/2024 [facility] DATE CREATED AUTHOR AUTHOR'S ORGANIZ ATION 12/04/2024 [facility] Source Comments (unrecognize d section and content) In the event this informatio n is protected by the Federal Confidentiality of Alcohol and Drug Abuse Patient Records regulations: The Federal rules restrict any use of the information to criminally investigate or prosecute any alcohol or drug abuse patient.[facility] the event this information is protected by the Federal Confidentiality of Alcohol and Drug Abuse Patient Records regulations: The Federal rules restrict any use of the information to criminally investigate or prosecute any alcohol or drug abuse patient.[facility] the event this information is protected by the Federal Confidentiality of Alcohol and Drug Abuse Patient Records regulations: The Federal rules restrict any use of the information to criminally investigate or prosecute any alcohol or drug abuse patient.[facility] the event this information is protected by the Federal Confidentiality of Alcohol and Drug Abuse Patient Records regulations: The Federal rules restrict any use of the information to criminally investigate or prosecute any alcohol or drug abuse patient.[facility] the event this information is protected by the Federal Confidentiality of Alcohol and Drug Abuse Patient Records regulations: The Federal rules restrict any use of the information to criminally investigate or prosecute any alcohol or drug abuse patient.[facility] the event this information is protected by the Federal Confidentiality of Alcohol and Drug Abuse Patient Records regulations: The Federal rules restrict any use of the information to criminally investigate or prosecute any alcohol or drug abuse patient.[facility] the event this information is protected by the Federal Confidentiality of Alcohol and Drug Abuse Patient Records regulations: The Federal rules restrict any use of the information to criminally investigate or prosecute any alcohol or drug abuse patient.[facility] the event this information is protected by the Federal Confidentiality of Alcohol and Drug Abuse Patient Records regulations: The Federal rules restrict any use of the information to criminally investigate or prosecute any alcohol or drug abuse patient.[facility] the event this information is protected by the Federal Confidentiality of Alcohol and Drug Abuse Patient Records regulations: The Federal rules restrict any use of the information to criminally investigate or prosecute any alcohol or drug abuse patient.[facility] the event this information is protected by the Federal Confidentiality of Alcohol and Drug Abuse Patient Records regulations: The Federal rules restrict any use of the information to criminally investigate or prosecute any alcohol or drug abuse patient.[facility] the event this information is protected by the Federal Confidentiality of Alcohol and Drug Abuse Patient Records regulations: The Federal rules restrict any use of the information to criminally investigate or prosecute any alcohol or drug abuse patient.[facility] HospitalIn the event this information is protected by the Federal Confidentiality of Alcohol and Drug Abuse Patient Records regulations: The Federal rules restrict any use of the information to criminally investigate or prosecute any alcohol or drug abuse patient.[facility] HospitalIn the event this information is protected by the Federal Confidentiality of Alcohol and Drug Abuse Patient Records regulations: The Federal rules restrict any use of the information to criminally investigate or prosecute any alcohol or drug abuse patient.[facility] HospitalIn the event this information is protected by the Federal Confidentiality of Alcohol and Drug Abuse Patient Records regulations: The Federal rules restrict any use of the information to criminally investigate or prosecute any alcohol or drug abuse patient.[facility] HospitalIn the event this information is protected by the Federal Confidentiality of Alcohol and Drug Abuse Patient Records regulations: The Federal rules restrict any use of the information to criminally investigate or prosecute any alcohol or drug abuse patient.[facility] HospitalIn the event this information is protected by the Federal Confidentiality of Alcohol and Drug Abuse Patient Records regulations: The Federal rules restrict any use of the information to criminally investigate or prosecute any alcohol or drug abuse patient.[facility] HospitalIn the event this information is protected by the Federal Confidentiality of Alcohol and Drug Abuse Patient Records regulations: The Federal rules restrict any use of the information to criminally investigate or prosecute any alcohol or drug abuse patient.[facility] HospitalIn the event this information is protected by the Federal Confidentiality of Alcohol and Drug Abuse Patient Records regulations: The Federal rules restrict any use of the information to criminally investigate or prosecute any alcohol or drug abuse patient.[facility] HospitalIn the event this information is protected by the Federal Confidentiality of Alcohol and Drug Abuse Patient Records regulations: The Federal rules restrict any use of the information to criminally investigate or prosecute any alcohol or drug abuse patient.[facility] Reason for Visit (unrecogniz ed section and content) Reason Comments New Patient Establish care previ ous pcp was in [place], but did not really have a primary out there. Would like to discuss medications, needs thyroid medication refill. Would like a referral to cardiology for the back of her legs due to the veins, has had blockages in the past. Would like to go to [facility]. Hands shake and she is numb all the time. Had a nerve conduction test in [place]. Feels like she is losing oxygen in her legs, are tired all the time Reason Onset Date Comments Transition Of Care 07/11/2024 Left [facility] 07/10/24 Reason Onset Date Comments Refill Request 07/24/2024 Reason Onset Date Comments Transition Of Care 07/25/2024 TCM f/u - Karla ointment Reason Comments Lab Orders Reason Comments New Patient Reason Comments Refill Request Reason Comments Established Patient Reason Comments Patient Update Reason Onset Date Comments Results 10/03/2024 Care Teams (unrecognized sec tion and content) Steam Shovel Oiler Relationship Specialty Start Date End Date Marianela Edwards DO [address] [place] [address] PCP - General Family Medicine 06/25/24 Steam Shovel Oiler Relationship Specialty Start Date End Date Marianela Edwards DO [address] [place] [address] PCP - General Family Medicine 07/08/24 Marianela Edwards DO [address] [place] [address] Family Medicine 07/08/24 Ana Guerra, TESHA Primary Care Overhead Worker 07/11/24 Steam Shovel Oiler Relationship Specialty Start Date End Date Marianela Edwards DO [address] [place] [address] PCP - General Family Medicine 07/08/24 Marianela Edwards DO [address] [place] [address] Family Medicine 07/08/24 Ana Guerra RN Primary Care Overhead Worker 07/11/24 Steam Shovel Oiler Relationship Specialty Start Date End Date Marianela Edwards DO [address] [place] [address] PCP - General Family Medicine 07/08/24 Marianela Edwards DO [address] [place] [address] Family Medicine 07/08/24 Ana Guerra, TESHA Primary Care Overhead Worker 07/11/24 Steam Shovel Oiler Relationship Specialty Start Date End Date Marianela Edwards DO [address] [place] [address] PCP - General Family Medicine 07/08/24 Marianela Edwards DO [address] [place] [address] Family Medicine 07/08/24 Ana Guerra, RN Primary Care Overhead Worker 07/11/24 Steam Shovel Oiler Relationship Specialty Start Date End Date Marianela Edwards DO [address] [place] [address] PCP - General Family Medicine 07/08/24 Marianela Edwards DO [address] [place] [address] Family Medicine 07/08/24 Steam Shovel Oiler Relationship Specialty Start Date End Date Marianela Edwards DO [address] [place] [address] PCP - General Family Medicine 07/08/24 Marianela Edwards DO [address] [place] [address] Family Medicine 07/08/24 Steam Shovel Oiler Relationship Specialty Start Date End Date Marianela Edwards DO [address] [place] [address] PCP - General Family Medicine 07/08/24 Marianela Edwards DO [address] [place] [address] Family Medicine 07/08/24 Steam Shovel Oiler Relationship Specialty Start Date End Date Marianela Edwards DO [address] [place] [address] PCP - General Family Medicine 07/08/24 Marianela Edwards DO [address] [place] [address] Family Medicine 07/08/24 Steam Shovel Oiler Relationship Specialty Start Date End Date Marianela Edwards DO [address] [place] [address] PCP - General Family Medicine 07/08/24 Marianela Edwards DO [address] [place] [address] Family Medicine 07/08/24 Steam Shovel Oiler Relationship Specialty Start Date End Date Marianela Edwards DO [address] [place] [address] PCP - General Family Medicine 07/08/24 Marianela Edwards DO [address] [place] [address] Family Medicine 07/08/24 Steam Shovel Oiler Relationship Specialty Start Date End Date Marianela Edwards DO [address] [place] [address] PCP - General Family Medicine 07/08/24 Marianela Edwards DO [address] [place] [address] Family Medicine 07/08/24 Steam Shovel Oiler Relationship Specialty Start Date End Date Marianela Edwarsd DO [address] [place] [address] PCP - General Family Medicine 07/08/24 Marianela Edwards DO [address] [place] [address] Family Medicine 07/08/24 Steam Shovel Oiler Relationship Specialty Start Date End Date Marianela Edwards DO [address] [facility] [place] [place] [address] PCP - General [facility] Medicine 07/08/24 Marianela Edwards DO [address] [place] [address] Family Medicine 07/08/24 Steam Shovel Oiler Relationship Specialty Start Date End Date Marianela Edwards DO [address] [facility] [place] [address] PCP - General [facility] Medicine 07/08/24 Marianela Edwards DO [address] [facility] [place] [address] Family Medicine 07/08/24 FOR RECORDS PERTAINING TO [...] BE BASED ON THE PRIMARY CLINICAL RECORDS. [email or web address] [facility]. provides no warranty or guarantee of the accuracy or completeness of information in this document.
--- NOTE | 2024-12-11 03:19 | EKG12_ITS ---
Test Reason : tachycardia Blood Pressure : */* mmHG Vent. Rate : 144 BPM Atrial Rate : * BPM P-R Int : * ms QRS Dur : 90 ms QT Int : 298 ms P-R-T Axes : * 8 80 degrees QTcB Int : 461 ms Critical Test Result: High HR NSR WITH PAT PAROXYSMAL ATRIAL TACHYCARDIA Inferior infarct , age undetermined Abnormal ECG When compared with ECG of 11-Dec-2024 00:21, MANUAL COMPARISON REQUIRED DATA IS UNCONFIRMED Confirmed by Chucho Holt ([id number]), map editor PARISA ENAMORADO ([id number]) on 12/11/2024 11:10:42 AM Referred By: Confirmed By: Chucho Holt
--- NOTE | 2024-12-11 03:26 | ED.RN ---
upon preparing pt to be transferred to ICU, hr increased to 140-170 afib. bp 136/75. asymptomatic. dr gutiérrez notified. pt converted back into nsr hr 80's and maintained. transferred to icu.
[2024-12-11 03:56] LABS: Absolute Lymphocyte Count 1.93 X10^3/uL (0.83-4.51); Absolute Neutrophil Count 8.1 X10^3/uL (2.0-7.7); Basophil# 0.08 X10^3/uL; Basophil% 0.7 % (0-1); Eosinophil# 0.34 X10^3/uL; Eosinophils% 2.9 % (0-5); Hematocrit 41.5 % (37-47); Lymphocyte # 1.93 X10^3/ul (0.83-4.51); Lymphocyte % 16.7 % (19-41); Mean Corp Hgb Conc 33.7 g/dL (32-36); Mean Corpuscular Hgb 30.8 pg (27.0-32.0); Mean Corpuscular Volume 91.2 fL (81-99); Mean Platelet Vol. 9.8 fl (6.2-12.0); Monocyte# 1.11 X10^3/uL; Monocyte% 9.6 % (0-10); NRBC Flagged by Analyzer 0 % (0-5); Neutrophil # 8.06 X10^3/uL (2.7-7.7); Neutrophil % 69.7 % (47-70); Platelet Count 379 K/mm3 (150-450); RBC Distribution Width SD 43.5 fl (35.1-43.9); Red Blood Count 4.55 M/mm3 (4.2-5.4); White Blood Count 11.6 K/mm3 (4.4-11.0)
[2024-12-11] MEDS: 0.9% Saline Lock 10 ML Syringe IV ×2 (04:26→18:10)
[2024-12-11] MEDS: Levothyroxine 112 MCG Tablet PO (04:26)
[2024-12-11 04:53] LABS: Anion Gap 12 (5-15); BUN 12 mg/dL (4-19); BUN/Creat Ratio 10.7 RATIO (10-20); Carbon Dioxide 21.2 mmol/L (21.0-32.0); Chloride 104 mmol/L (98-108); Creatinine, Serum 1.08 mg/dL (0.70-1.20); EST Glomerular Filtration Rate 56 (>60); Estimated Creatinine Clearance 35.81 ml/min (50-250); Glucose 137 mg/dL (70-99); Magnesium 1.9 mg/dL (1.5-2.2); Sodium Level 137 mmol/L (133-145); Thyroid Stim Hormone (TSH) 0.046 uIU/mL (0.300-4.200)
[2024-12-11 05:05] LABS: Troponin T High Sens 4 HR 2120 ng/L (<=14)
--- NOTE | 2024-12-11 05:55 | ECHOD_ITS ---
Reason For Study : CHF Procedure This was a 2D Doppler, Color Flow transthoracic echocardiogram. Exam performed portable in ICU/CCU. Left Ventricle Normal LV size. Mild concentric left ventricular hypertrophy. Severe inferior, basal to mid posterior and basal to mid lateral hypokinesis. Estimated LVEF 45%. Stage II diastolic dysfunction. Right Ventricle Normal right ventricle. Atria The left atrium is moderately enlarged. Normal right atrium. Mitral Valve Severe mitral valve regurgitation. Tricuspid Valve Trivial tricuspid valve insufficiency. Unable to estimate RV systolic pressure due to insufficient tricuspid regurgitant envelope. Aortic Valve Trisinus/trileaflet aortic valve. Pulmonic Valve The pulmonic valve is not well visualized. Great Vessels Normal sized aortic root. Pericardium/Pleural No pericardial effusion. MMode/2D Measurements & Calculations LVIDd: 4.7 cm IVSd: 1.2 cm Ao root diam: 3.1 cm LVIDs: 4.2 cm LVPWd: 0.94 cm RVDd: 2.8 cm FS: 9.6 % LAV(MOD-bp): 62.5 ml LVAd ap4: 26.6 cm2 SV(MOD-sp4): 32.8 ml LAV(MOD-bp) Indexed: 42.2 ml/m2 LVLd ap4: 7.2 cm SI(MOD-sp4): 22.2 ml/m2 LAV(MOD-sp2): 85.7 ml EDV(MOD-sp4): 82.2 ml LAV(MOD-sp4): 43.5 ml EDV(sp4-el): 83.5 ml LVAs ap4: 18.2 cm2 LVLs ap4: 6.0 cm ESV(MOD-sp4): 49.4 ml ESV(sp4-el): 47.0 ml EF(MOD-sp4): 39.9 % EF(sp4-el): 43.7 % SV(sp4-el): 36.5 ml LA A4 area: 17.5 cm2 LA dimension(2D): 4.4 cm RA A4 area: 7.8 cm2 TAPSE: 2.0 cm Time Measurements MV dec time: 0.10 sec Doppler Measurements & Calculations MV E max camden: 106.9 cm/sec Lat Peak E' [place]: 5.0 cm/sec Med Peak E' [place]: 5.5 cm/sec MV A max cam[place]: 86.0 cm/sec E/E' lat: 21.4 E/E' med: 19.3 MV E/A: 1.2 Ao V2 max: 128.6 cm/sec LV V1 max: 92.7 cm/sec MV dec slope: 1043 cm/sec2 Ao max P.6 mmHg LV V1 max P.4 mmHg Ao V2 mean: 85.7 cm/sec Ao mean P.4 mmHg Ao V2 VTI: 19.2 cm PA V2 max: 80.6 cm/sec TR max camden: 280.9 cm/sec TR max P.1 mmHg ECHO/Echo Complete Interpretation Summary Mild concentric left ventricular hypertrophy. Severe inferior, basal to mid pos terior and basal to mid lateral hypokinesis. Estimated LVEF 45%. Stage II diastolic dysfunction. The left atrium is moderately enlarged. Severe mitral valve regurgitation. Ordering Physician: Francis Bojorquez Referring Physician: Marianela Goodson Performed By: Bibiana Anton, LE, RVT
--- NOTE | 2024-12-11 07:24 | PN.HOSP_ITS ---
Reason for Visit Reason for Visit: Diagnoses Nicotine dependence, cigarettes, uncomplicated (12/11/24) Heart failure, unspecified (12/11/24) Peripheral vascular disease, unspecified (12/11/24) Acute respiratory distress (12/11/24) Other specified abnormal findings of blood chemistry (12/11/24) Objective Data Objective Data Vital Signs: Vital Signs Temp Pulse Resp BP Pulse Ox O2 Del Method O2 Flow Rate 36.4 C L 80 19 H 105/59 L 96 Nasal Cannula 4 12/11/24 04:15 12/11/24 07:00 12/11/24 07:00 12/11/24 07:00 12/11/24 07:00 12/11/24 07:00 12/11/24 07:00 FiO2 60 12/11/24 02:59 Oxygen Flow Rate (L/min) 4 Oxygen Delivery Method Nasal Cannula Weight: 52.7 kg Body Mass Index (BMI) 22.8 Intake & Output: Intake and Output for Last 24 Hours 12/09/24 12/10/24 12/11/24 23:59 23:59 23:59 Output Total 350 / 350 Balance -350 / -350 Lab / Micro Data 12/11/24 03:49 12/11/24 03:49 Labs: Laboratory Results - last 24 hr 12/10/24 23:45: WBC 11.3 H, RBC 4.45, Hgb 13.7, Hct 40.4, MCV 90.8, MCH 30.8, MCHC 33.9, RDW Std Deviation 43.1, RDW Coeff of Luis 13.2, Plt Count 377, MPV 10.1, Immature Gran % (Auto) 1.700 H, Neut % (Auto) 66.3, Lymph % (Auto) 16.5 L, [place] % (Auto) 11.4 H, Eos % (Auto) 3.1, Baso % (Auto) 1.0, Absolute Neuts (auto) 7.5, Absolute Lymphs (auto) 1.87, Nucleated RBC % 0, Sodium 137, Potassium 3.9, Chloride 106, Carbon Dioxide 18.3 L, Anion Gap 12, BUN 13, Creatinine 1.08, E stim Creat Clear Calc 39.30 L, Est GFR (MDRD) Non-Af 56 L, BUN/Creatinine Ratio 11.8, Glucose 126 H, Calcium 8.9, Troponin T High Sens 1980 H*, NT pro BNP II 7545 H 12/11/24 01:49: Troponin T Hi Sens 2 Hr 1735 H* 12/11/24 03:49: WBC 11.6 H, RBC 4.55, Hgb 14.0, Hct 41.5, MCV 91.2, MCH 30.8, MCHC 33.7, RDW Std Deviation 43.5, RDW Coeff of Luis 13.0, Plt Count 379, MPV 9.8, Immature Gran % (Auto) 0.400, Neut % (Auto) 69.7, Lymph % (Auto) 16.7 L, [place] % (Auto) 9.6, Eos % (Auto) 2.9, Baso % (Auto) 0.7, Absolute Neuts (auto) 8.1 H, Absolute Lymphs (auto) 1.93, Nucleated RBC % 0, Sodium 137, Potassium 4.0, Chloride 104, Carbon Dioxide 21.2, Anion Gap 12, BUN 12, Creatinine 1.08, E stim Creat Clear Calc 35.81 L, Est GFR (MDRD) Non-Af 56 L, BUN/Creatinine Ratio 10.7, Glucose 137 H, Calcium 9.0, Magnesium 1.9, Troponin T Hi Sens 4Hr 2120 H*, TSH 0.046 L Radiography Diagnostic Testing: Radiology Impression Chest X-Ray 12/10/24 23:52 IMPRESSION: Cardiomegaly and CHF changes. Follow-up is advised Reading Location: [place] [address] Chest CTA 12/11/24 00:48 IMPRESSION: No CT evidence of pulmonary embolus or aortic dissection. Moderate bilateral pleural effusions. Passive atelectatic airspace disease/consolidations of the lower lobes. Moderate interstitial pulmonary edema. Mild alveolar pulmonary edema. Mildly prominent mediastinal lymph nodes are noted with the largest measuring 1.4 cm. Small sliding hiatal hernia. Dilated supra hepatic IVC suggestive of dysfunction of the right cardiac cavities. Bilateral benign chronic hypertrophy of the adrenal glands. Reading Location: [place] [address] Assessment & Plan Assessment/Plan (1) Acute hypoxic respiratory failure: PLAN: 2/2 to CHF exacerbation and pleural effusions. Was 85% in the ED, placed on BiPAP Wean oxygen as tolerated (2) CHF exacerbation: PLAN: unclear type BNP 7545. received IV furosemide in the ED-->resume IV furosemide check echo (3) NSTEMI, initial episode of care: PLAN: troponins 1979 to 1735 to 2120 on therapuetic enoxaparin add ASA. Check FLP, echo Cards consult (4) Low TSH level: PLAN: unclear if hyper- or euthyroid check Ft4 does take levothyroxine chronically. (5) Protein calorie malnutrition: PLAN: consult nutrition for further input PLAN: Plan VTE prophylaxis: not indicated as already anticoagulated.
[2024-12-11] MEDS: Aspirin 325 MG Tablet PO (08:43)
[2024-12-11] MEDS: Cilostazol 50 MG Tablet PO ×2 (08:43→21:17)
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
[2024-12-11 10:18] LABS: Cholesterol 175 mg/dL (<=200); High Density Lipoprotein 26 mg/dL; Low Density Lipoprotein Calc. 131 mg/dL; Triglycerides 87 mg/dL; Very Low Density Lipoprotein 17 mg/dL (5-40); cholesterol:hdl ratio screen 6.65
[2024-12-11] MEDS: amLODIPine 10 MG Tablet PO (11:21)
--- NOTE | 2024-12-11 12:38 | CASEMGMT ---
RN CM Assessment Face to Face with patient for initial transition planning/care coordination assessment. RN CM introduced self and role at [facility], pt voices understanding. Pt is A&Ox4 and is resting comfortably in bed and is calm. Pt's sister at bedside. Care providers, pharmacy, and demographics verified. Admitting dx: Acute Respiratory Distress, CHF LACE Strata: 2 PCP: Marianela Goodson Specialists: Caty ([facility]). Neurologist but unsure of the name. Preferred Pharmacy: [facility] Insurance: Marialuisa RAPHAEL [employer], [employer]. Pt states that she believes that she has a CM through her insurance but does not know the name or number. Pt states that she does not have any active services that she is aware of Prescription Benefit: Yes LNOK: Leena Pires (Sister) Living Arrangements: Pt lives with her sister in a mobile home with 6 total steps to enter with a handrail ADLs/IADLs: Pt states that she is independent. There is currently no 6-Click score entered or therapy ordered. Transportation: Pt does not drive. Pt states that her sister drives her and denies concerns DME: Pt states that she has access to a WC, FWW, Cane, BP Machine, and pulse ox. Pt requesting information on medical alert system. Resources provided and also encouraged to reach out to the pt's CM to get established. Pt is currently requiring additional oxygen and may qualify for home oxygen use. A verbal list of local in-network DME companies were provided to the pt at this time. Pt prefers [facility] HHC/SNF: Denies hx or needs. Pt states that she has been to OP PT before through [facility] Tobacco/ETOH/ Illicit Drug use: Pt states that she smokes 40 cigarettes per week. Pt states that she smokes marijuana daily. Pt states that she knows she needs to quit and denies wanting cessation resources. Pt educated that if she were to qualify for home oxygen that this would be a hazard. Pt states that she does not smoke inside. CM to follow for oxygen qualification. Pt?s goal: home Plan: Home, follow for new oxygen needs and new anticoagulant Rx. At this time, the pt denies the need for HH or OP therapy. Pt states that she feels safe returning home with her sister once she is medically ready. Pt denies further questions or concerns at this time. CM to follow. Pedro Menendez RN CM
--- NOTE | 2024-12-11 13:53 | PN.HOSP_ITS ---
Reason for Visit Reason for Visit: Diagnoses Nicotine dependence, cigarettes, uncomplicated (12/11/24) Other supraventricular tachycardia (12/11/24) Heart failure, unspecified (12/11/24) Occlusion and stenosis of bilateral carotid arteries (12/11/24) Peripheral vascular disease, unspecified (12/11/24) Acute respiratory failure with hypoxia (12/11/24) Acute respiratory distress (12/11/24) Other specified abnormal findings of blood chemistry (12/11/24) Subjective Subjective Breathing much better. Has never had heart problems in the past, but has had PAD with prior CEA, the other carotid was completed occluded and well as LE. Objective Data Objective Data Vital Signs: Vital Signs Temp Pulse Resp BP Pulse Ox O2 Del Method O2 Flow Rate 36.4 C L 150 H 14 109/51 L 94 Nasal Cannula 5 12/11/24 04:15 12/11/24 12:00 12/11/24 12:00 12/11/24 12:00 12/11/24 12:00 12/11/24 12:00 12/11/24 12:00 FiO2 60 12/11/24 02:59 Oxygen Flow Rate (L/min) 5 Oxygen Delivery Method Nasal Cannula Weight: 52.7 kg Body Mass Index (BMI) 22.8 Intake & Output: Intake and Output for Last 24 Hours 12/09/24 12/10/24 12/11/24 23:59 23:59 23:59 Intake Total 240 / 240 Output Total 350 / 350 Balance -110 / -110 Lab / Micro Data 12/11/24 03:49 12/11/24 03:49 Labs: Laboratory Results - last 24 hr 12/10/24 23:45: WBC 11.3 H, RBC 4.45, Hgb 13.7, Hct 40.4, MCV 90.8, MCH 30.8, MCHC 33.9, RDW Std Deviation 43.1, RDW Coeff of Luis 13.2, Plt Count 377, MPV 10.1, Immature Gran % (Auto) 1.700 H, Neut % (Auto) 66.3, Lymph % (Auto) 16.5 L, [place] % (Auto) 11.4 H, Eos % (Auto) 3.1, Baso % (Auto) 1.0, Absolute Neuts (auto) 7.5, Absolute Lymphs (auto) 1.87, Nucleated RBC % 0, Sodium 137, Potassium 3.9, Chloride 106, Carbon Dioxide 18.3 L, Anion Gap 12, BUN 13, Creatinine 1.08, E stim Creat Clear Calc 39.30 L, Est GFR (MDRD) Non-Af 56 L, BUN/Creatinine Ratio 11.8, Glucose 126 H, Calcium 8.9, Troponin T High Sens 1980 H*, NT pro BNP II 7545 H 12/11/24 01:49: Troponin T Hi Sens 2 Hr 1735 H* 12/11/24 03:49: WBC 11.6 H, RBC 4.55, Hgb 14.0, Hct 41.5, MCV 91.2, MCH 30.8, MCHC 33.7, RDW Std Deviation 43.5, RDW Coeff of Luis 13.0, Plt Count 379, MPV 9.8, Immature Gran % (Auto) 0.400, Neut % (Auto) 69.7, Lymph % (Auto) 16.7 L, [place] % (Auto) 9.6, Eos % (Auto) 2.9, Baso % (Auto) 0.7, Absolute Neuts (auto) 8.1 H, Absolute Lymphs (auto) 1.93, Nucleated RBC % 0, Sodium 137, Potassium 4.0, Chloride 104, Carbon Dioxide 21.2, Anion Gap 12, BUN 12, Creatinine 1.08, E stim Creat Clear Calc 35.81 L, Est GFR (MDRD) Non-Af 56 L, BUN/Creatinine Ratio 10.7, Glucose 137 H, Calcium 9.0, Magnesium 1.9, Troponin T Hi Sens 4Hr 2120 H*, TSH 0.046 L 12/11/24 08:47: Triglycerides 87, Cholesterol 175, LDL Cholesterol, Calc 131, VLDL Cholesterol 17, HDL Cholesterol 26 L, Cholesterol/HDL Ratio 6.65, Free T4 1.90 H Radiography Diagnostic Testing: Radiology Impression Chest X-Ray 12/10/24 23:52 IMPRESSION: Cardiomegaly and CHF changes. Follow-up is advised Reading Location: [place] [id number] Chest CTA 12/11/24 00:48 IMPRESSION: No CT evidence of pulmonary embolus or aortic dissection. Moderate bilateral pleural effusions. Passive atelectatic airspace disease/consolidations of the lower lobes. Moderate interstitial pulmonary edema. Mild alveolar pulmonary edema. Mildly prominent mediastinal lymph nodes are noted with the largest measuring 1.4 cm. Small sliding hiatal hernia. Dilated supra hepatic IVC suggestive of dysfunction of the right cardiac cavities. Bilateral benign chronic hypertrophy of the adrenal glands. Reading Location[facility] Echocardiogram 12/11/24 05:55 Interpretation Summary Mild concentric left ventricular hypertrophy. Severe inferior, basal to mid posterior and basal to mid lateral hypokinesis. Estimated LVEF 45%. Stage II diastolic dysfunction. The left atrium is moderately enlarged. Severe mitral valve regurgitation. Ordering Physician: Francis Bojorquez Referring Physician: Marianela Goodson Performed By: Bibiana Anton, RDCS, RVT Rhythm Strip Rhythm Strip: Sinus Rhythm Rate: 86 Physical Exam Const alert and no apparent distress Constitutional Narrative: up in bed. in no respiratory distress. No conversational dyspnea. HEENT head/scalp atraumatic Resp normal respiratory effort and no retractions Resp Narrative: bibasilar crackles Cardio regular rate, regular rhythm, S1 normal heart sound and S2 normal heart sound GI normal to inspection, nondistended, normoactive bowel sounds, soft to palpation, non-tender and non-distended Extremity normal to inspection and full ROM Neuro Sensorium / Orientation: awake and alert Psych affect normal Assessment & Plan Assessment/Plan (1) Acute hypoxic respiratory failure: PLAN: Was down to 86% on 2l. Eventually being placed on BiPAP, but since weaned down to 5liters 2/2 CHF exacerbation (2) CHF exacerbation: PLAN: Acute HFrEF Echo: EF 45%, severe inferior, basal to mid posterior and basal to mid lateral hypokinesisis. Stage II DD. Severe MR. Continue furosemide (3) NSTEMI, initial episode of care: PLAN: On ASA and therapeutic enoxaparin. Cards to determine next steps. (4) Protein calorie malnutrition: PLAN: Nutrition consult (5) Low TSH level: PLAN: FT4 elevated. Will decrease levothyroxine from 112 to 75. Start on 12/13 Outpt follow up. PLAN: Plan Chronic conditions: * PAD: s/p CEA. on cilostazol. * tobacco abuse: complicates care and recovery * anxiety: add PRN lorazepam. VTE prophylaxis: anticoagulated. DW patient's family at bedside with her permission. Charges/Coding Visit Charges Inpatient E&M: 38354 Subs Hosp L2
[2024-12-11] MEDS: Metoprolol Tartrate 25 MG Tablet PO ×2 (14:24→21:16)
--- NOTE | 2024-12-11 16:18 | EKG12_ITS ---
Test Reason : Blood Pressure : */* mmHG Vent. Rate : 78 BPM Atrial Rate : 78 BPM P-R Int : 112 ms QRS Dur : 92 ms QT Int : 428 ms P-R-T Axes : 80 13 16 degrees QTcB Int : 487 ms Normal sinus rhythm Possible Inferior infarct , age undetermined Abnormal ECG Confirmed by Chucho Holt ([id number]), avid editor PARISA ENAMORADO ([id number]) on 12/12/2024 10:42:14 AM Referred By: Confirmed By: Chucho Holt
--- NOTE | 2024-12-11 16:30 | PN.CARD_ITS ---
Subjective Subjective Patient's echocardiogram today was consistent with segmental wall motion abnormalities. The patient spontaneously converted into normal sinus rhythm this afternoon. Her ECG shows an old inferior wall infarct pattern with normal sinus rhythm and no acute ST-T wave changes. The patient's troponin peaked at 2100. And given her known peripheral vascular disease I would recommend that she undergo left heart catheterization. The procedure risk/benefit and alternatives were explained to the patient in detail she voiced understanding and agrees to proceed. The patient does have only 1+ right radial pulse 2+ left radial pulse 1-2+ right femoral with a right femoral bruit was noted. Objective Data Vital Signs: Vital Signs Temp Pulse Resp BP Pulse Ox O2 Del Method O2 Flow Rate 97.6 F L 86 22 H 107/64 93 Nasal Cannula 5 12/11/24 04:15 12/11/24 15:00 12/11/24 15:00 12/11/24 15:00 12/11/24 15:00 12/11/24 15:50 12/11/24 15:50 FiO2 60 12/11/24 02:59 Oxygen Flow Rate (L/min) 5 Oxygen Delivery Method Nasal Cannula Weight: 116 lb 2.938 oz Body Mass Index (BMI) 22.8 Intake & Output: Intake and Output for Last 24 Hours 12/09/24 12/10/24 12/11/24 23:59 23:59 23:59 Intake Total 1040 / 1040 Output Total 650 / 650 Balance 390 / 390 Lab / Micro Data Attestation: I reviewed the patient's lab results. 12/11/24 03:49 12/11/24 03:49 Labs: Laboratory Results - last 24 hr 12/10/24 23:45: WBC 11.3 H, RBC 4.45, Hgb 13.7, Hct 40.4, MCV 90.8, MCH 30.8, MCHC 33.9, RDW Std Deviation 43.1, RDW Coeff of Luis 13.2, Plt Count 377, MPV 10.1, Immature Gran % (Auto) 1.700 H, Neut % (Auto) 66.3, Lymph % (Auto) 16.5 L, [place] % (Auto) 11.4 H, Eos % (Auto) 3.1, Baso % (Auto) 1.0, Absolute Neuts (auto) 7.5, Absolute Lymphs (auto) 1.87, Nucleated RBC % 0, Sodium 137, Potassium 3.9, Chloride 106, Carbon Dioxide 18.3 L, Anion Gap 12, BUN 13, Creatinine 1.08, E stim Creat Clear Calc 39.30 L, Est GFR (MDRD) Non-Af 56 L, BUN/Creatinine Ratio 11.8, Glucose 126 H, Calcium 8.9, Troponin T High Sens 1980 H*, NT pro BNP II 7545 H 12/11/24 01:49: Troponin T Hi Sens 2 Hr 1735 H* 12/11/24 03:49: WBC 11.6 H, RBC 4.55, Hgb 14.0, Hct 41.5, MCV 91.2, MCH 30.8, MCHC 33.7, RDW Std Deviation 43.5, RDW Coeff of Luis 13.0, Plt Count 379, MPV 9.8, Immature Gran % (Auto) 0.400, Neut % (Auto) 69.7, Lymph % (Auto) 16.7 L, [place] % (Auto) 9.6, Eos % (Auto) 2.9, Baso % (Auto) 0.7, Absolute Neuts (auto) 8.1 H, Absolute Lymphs (auto) 1.93, Nucleated RBC % 0, Sodium 137, Potassium 4.0, Chloride 104, Carbon Dioxide 21.2, Anion Gap 12, BUN 12, Creatinine 1.08, E stim Creat Clear Calc 35.81 L, Est GFR (MDRD) Non-Af 56 L, BUN/Creatinine Ratio 10.7, Glucose 137 H, Calcium 9.0, Magnesium 1.9, Troponin T Hi Sens 4Hr 2120 H*, TSH 0.046 L 12/11/24 08:47: Triglycerides 87, Cholesterol 175, LDL Cholesterol, Calc 131, VLDL Cholesterol 17, HDL Cholesterol 26 L, Cholesterol/HDL Ratio 6.65, Free T4 1.90 H Rhythm Strip Rhythm Strip: Sinus Rhythm Rate: 86 Cardiology Labs/Tests 12/10/24 23:45: WBC 11.3 H, RBC 4.45, Hgb 13.7, Hct 40.4, MCV 90.8, MCH 30.8, MCHC 33.9, Plt Count 377, MPV 10.1, Immature Gran % (Auto) 1.700 H, Neut % (Auto) 66.3, Lymph % (Auto) 16.5 L, [place] % (Auto) 11.4 H, Eos % (Auto) 3.1, Baso % (Auto) 1.0, Absolute Neuts (auto) 7.5, Nucleated RBC % 0, Sodium 137, Potassium 3.9, Chloride 106, Carbon Dioxide 18.3 L, Anion Gap 12, BUN 13, Creatinine 1.08, Est GFR (MDRD) Non-Af 56 L, BUN/Creatinine Ratio 11.8, Glucose 126 H, Calcium 8.9 12/11/24 03:49: WBC 11.6 H, RBC 4.55, Hgb 14.0, Hct 41.5, MCV 91.2, MCH 30.8, MCHC 33.7, Plt Count 379, MPV 9.8, Immature Gran % (Auto) 0.400, Neut % (Auto) 69.7, Lymph % (Auto) 16.7 L, [place] % (Auto) 9.6, Eos % (Auto) 2.9, Baso % (Auto) 0.7, Absolute Neuts (auto) 8.1 H, Nucleated RBC % 0, Sodium 137, Potassium 4.0, Chloride 104, Carbon Dioxide 21.2, Anion Gap 12, BUN 12, Creatinine 1.08, Est GFR (MDRD) Non-Af 56 L, BUN/Creatinine Ratio 10.7, Glucose 137 H, Calcium 9.0, Magnesium 1.9 12/11/24 08:47: Triglycerides 87, Cholesterol 175, VLDL Cholesterol 17, HDL Cholesterol 26 L, Cholesterol/HDL Ratio 6.65 Rhythm: EKG: ECHO: Stress Test: Cardiac Cath: PCI: CT Surgery: Holter monitor: EPS: PPM: CXR: Chest CT Scan: Radiography Diagnostic Testing: Radiology Impression Chest X-Ray 12/10/24 23:52 IMPRESSION: Cardiomegaly and CHF changes. Follow-up is advised Reading [facility] Chest CTA 12/11/24 00:48 IMPRESSION: No CT evidence of pulmonary embolus or aortic dissection. Moderate bilateral pleural effusions. Passive atelectatic airspace disease/consolidations of the lower lobes. Moderate interstitial pulmonary edema. Mild alveolar pulmonary edema. Mildly prominent mediastinal lymph nodes are noted with the largest measuring 1.4 cm. Small sliding hiatal hernia. Dilated supra hepatic IVC suggestive of dysfunction of the right cardiac cavities. Bilateral benign chronic hypertrophy of the adrenal glands. Reading Location: [facility] Echocardiogram 12/11/24 05:55 Interpretation Summary Mild concentric left ventricular hypertrophy. Severe inferior, basal to mid posterior and basal to mid lateral hypokinesis. Estimated LVEF 45%. Stage II diastolic dysfunction. The left atrium is moderately enlarged. Severe mitral valve regurgitation. Ordering Physician: Francis Bojorquez Referring Physician: Marianela Goodson Performed By: Bibiana Anton, LE, RVT Physical Exam Const alert and oriented x3 HEENT normocephalic Eyes EOMs intact bilaterally Cardio Peripheral Pulses: radial pulses present right 1+ and left 2+ and femoral pulses present right (Bruit noted.) 2+ Assessment & Plan Assessment/Plan (1) NSTEMI, initial episode of care: PLAN: Patient's enzyme elevation, her past medical history with significant peripheral vascular disease, and her ECG showing inferior wall and part with segmental wall motion abnormality on the echocardiogram warrants further invasive evaluation of the patient's coronary anatomy. A left heart catheterization is recommended. I discussed this in detail with the patient including risk benefit and alternatives. The patient voiced understanding and agrees to proceed with a left heart catheterization tomorrow morning. PLAN: Plan Left heart cath in a.m. with Dr. Galarza
[2024-12-11] MEDS: Enoxaparin 60 MG/0.6 ML Syringe 50 MG SC (18:09)
[2024-12-12] VITALS (36 sets, daily range): BP systolic 85–133; BP diastolic 53–80; PULSE 67–87; RESP 12–23; TEMP 36.2–36.7; O2SAT 16–98; BMI 22.6
[2024-12-12] MEDS: 0.9% Saline Lock 10 ML Syringe IV (05:08)
[2024-12-12 06:06] LABS: Anion Gap 13 (5-15); BUN 21 mg/dL (4-19); BUN/Creat Ratio 15.9 RATIO (10-20); Calcium,Total 8.9 mg/dL (7.6-11.0); Carbon Dioxide 22.6 mmol/L (21.0-32.0); Chloride 102 mmol/L (98-108); Creatinine, Serum 1.33 mg/dL (0.70-1.20); EST Glomerular Filtration Rate 44 (>60); Estimated Creatinine Clearance 29.08 ml/min (50-250); Glucose 130 mg/dL (70-99); Sodium Level 138 mmol/L (133-145)
--- NOTE | 2024-12-12 07:50 | PN.HOSP_ITS ---
Reason for Visit Reason for Visit: Diagnoses Unspecified protein-calorie malnutrition (12/11/24) Nicotine dependence, cigarettes, uncomplicated (12/11/24) Non-ST elevation (NSTEMI) myocardial infarction (12/11/24) Other supraventricular tachycardia (12/11/24) Heart failure, unspecified (12/11/24) Occlusion and stenosis of bilateral carotid arteries (12/11/24) Peripheral vascular disease, unspecified (12/11/24) Acute respiratory failure with hypoxia (12/11/24) Acute respiratory distress (12/11/24) Other specified abnormal findings of blood chemistry (12/11/24) Subjective Subjective Concerned that she is being poisoned. I asked specifically she feels that someone is poisoning her but she clarified that she is concerned that below her house is a meth lab and tunnels and those fumes are going directly into their ventilation. She states that her sisters try to submit a police report but wound up being pink slipped to a psychiatric unit. Objective Data Objective Data Vital Signs: Vital Signs Temp Pulse Resp BP Pulse Ox O2 Del Method O2 Flow Rate 36.4 C L 83 21 H 117/63 92 Nasal Cannula 6 12/12/24 01:00 12/12/24 07:00 12/12/24 07:00 12/12/24 07:00 12/12/24 07:00 12/12/24 07:00 12/12/24 07:00 FiO2 40 12/12/24 04:00 Oxygen Flow Rate (L/min) 6 Oxygen Delivery Method Nasal Cannula Weight: 52.2 kg Body Mass Index (BMI) 22.6 Intake & Output: Intake and Output for Last 24 Hours 12/10/24 12/11/24 12/12/24 23:59 23:59 23:59 Intake Total 1240 / 1240 Output Total 1200 / 1200 250 / 250 Balance 40 / 40 -250 / -250 Lab / Micro Data 12/11/24 03:49 12/12/24 05:05 Labs: Laboratory Results - last 24 hr 12/11/24 08:47: Triglycerides 87, Cholesterol 175, LDL Cholesterol, Calc 131, VLDL Cholesterol 17, HDL Cholesterol 26 L, Cholesterol/HDL Ratio 6.65, Free T4 1.90 H 12/12/24 05:05: Sodium 138, Potassium 4.0, Chloride 102, Carbon Dioxide 22.6, Anion Gap 13, BUN 21 H, Creatinine 1.33 H, Estim Creat Clear Calc 29.08 L, Est GFR (MDRD) Non-Af 44 L, BUN/Creatinine Ratio 15.9, Glucose 130 H, Calcium 8.9 Radiography Diagnostic Testing: Radiology Impression Echocardiogram 12/11/24 05:55 Interpretation Summary Mild concentric left ventricular hypertrophy. Severe inferior, basal to mid posterior and basal to mid lateral hypokinesis. Estimated LVEF 45%. Stage II diastolic dysfunction. The left atrium is moderately enlarged. Severe mitral valve regurgitation. Ordering Physician: Francis Bojorquez Referring Physician: Marianela Goodson Performed By: Bibiana Anton RDCS, RVT Rhythm Strip Rhythm Strip: Sinus Rhythm Rate: 86 Physical Exam Const alert and no apparent distress HEENT head/scalp atraumatic and moist oral mucous membranes Resp normal respiratory effort, no retractions, no use of accessory muscles and clear to auscultation bilaterally Cardio regular rate, regular rhythm, S1 normal heart sound and S2 normal heart sound GI normal to inspection, nondistended, normoactive bowel sounds and soft to palpation Neuro Sensorium / Orientation: awake and alert Assessment & Plan Assessment/Plan (1) Acute hypoxic respiratory failure: PLAN: Was down to 86% on 2l. Eventually being placed on BiPAP, but since weaned down to 5liters 2/2 CHF exacerbation (2) CHF exacerbation: PLAN: Acute HFrEF Echo: EF 45%, severe inferior, basal to mid posterior and basal to mid lateral hypokinesisis. Stage II DD. Severe MR. Continue furosemide (3) NSTEMI, initial episode of care: PLAN: On ASA and therapeutic enoxaparin. Cards following DW Dr. Holt he is recommending transfer to tertiary facility for valve replacement and coronary revascularization. (4) Protein calorie malnutrition: PLAN: Nutrition consult (5) Low TSH level: PLAN: FT4 elevated. Will decrease levothyroxine from 112 to 75. Start on 12/13 Outpt follow up. (6) Poisoning: PLAN: Self-reported. But from her description was that she was not being intentionally poisoned, but fumes from a meth lab in tunnels under her house are in her ventilation. I am unclear about the accuracy of her claims. I did discuss with social work to further field her concerns. PLAN: Plan Chronic conditions: * PAD: s/p CEA. on cilostazol. * tobacco abuse: complicates care and recovery * anxiety: add PRN lorazepam. VTE prophylaxis: anticoagulated. Greater than 50 minutes of which great than 50% of the time was listening to the patient talk about her poisoning and meth lab concerns. Charges/Coding Visit Charges Inpatient E&M: 16938 Subs Hosp L3
[2024-12-12] MEDS: Aspirin 81 MG TAB.CHEW PO (08:11)
[2024-12-12] MEDS: Metoprolol Tartrate 25 MG Tablet PO ×2 (08:11→21:04)
[2024-12-12] MEDS: Cilostazol 50 MG Tablet PO ×2 (08:11→21:04)
--- NOTE | 2024-12-12 09:24 | PCM.PN.CARD ---
Subjective Subjective Patient was up in room being attended to by the nurse. She denies any anginal type symptoms at this time. The patient is scheduled for left heart catheterization later this morning. Objective Data Vital Signs: Vital Signs Temp Pulse Resp BP Pulse Ox O2 Del Method O2 Flow Rate 97.5 F L 73 21 H 101/67 94 Nasal Cannula 6 12/12/24 01:00 12/12/24 08:11 12/12/24 07:00 12/12/24 08:11 12/12/24 08:30 12/12/24 08:30 12/12/24 08:30 FiO2 40 12/12/24 04:00 Oxygen Flow Rate (L/min) 6 Oxygen Delivery Method Nasal Cannula Weight: 115 lb 1.301 oz Body Mass Index (BMI) 22.6 Intake & Output: Intake and Output for Last 24 Hours 12/10/24 12/11/24 12/12/24 23:59 23:59 23:59 Intake Total 1240 / 1240 Output Total 1200 / 1200 250 / 250 Balance 40 / 40 -250 / -250 Lab / Micro Data 12/11/24 03:49 12/12/24 05:05 Labs: Laboratory Results - last 24 hr 12/11/24 08:47: Triglycerides 87, Cholesterol 175, LDL Cholesterol, Calc 131, VLDL Cholesterol 17, HDL Cholesterol 26 L, Cholesterol/HDL Ratio 6.65, Free T4 1.90 H 12/12/24 05:05: Sodium 138, Potassium 4.0, Chloride 102, Carbon Dioxide 22.6, Anion Gap 13, BUN 21 H, Creatinine 1.33 H, Estim Creat Clear Calc 29.08 L, Est GFR (MDRD) Non-Af 44 L, BUN/Creatinine Ratio 15.9, Glucose 130 H, Calcium 8.9 Rhythm Strip Rhythm Strip: Sinus Rhythm Rate: 80 Cardiology Labs/Tests 12/11/24 08:47: Triglycerides 87, Cholesterol 175, VLDL Cholesterol 17, HDL Cholesterol 26 L, Cholesterol/HDL Ratio 6.65 12/12/24 05:05: Sodium 138, Potassium 4.0, Chloride 102, Carbon Dioxide 22.6, Anion Gap 13, BUN 21 H, Creatinine 1.33 H, Est GFR (MDRD) Non-Af 44 L, BUN/Creatinine Ratio 15.9, Glucose 130 H, Calcium 8.9 Rhythm: EKG: ECHO: Stress Test: Cardiac Cath: PCI: CT Surgery: Holter monitor: EPS: PPM: CXR: Chest CT Scan: Radiography Diagnostic Testing: Radiology Impression Echocardiogram 12/11/24 05:55 Interpretation Summary Mild concentric left ventricular hypertrophy. Severe inferior, basal to mid posterior and basal to mid lateral hypokinesis. Estimated LVEF 45%. Stage II diastolic dysfunction. The left atrium is moderately enlarged. Severe mitral valve regurgitation. Ordering Physician: Francis Bojorquez Referring Physician: Marianela Goodson Performed By: Bibiana Anton, LE, RVT Physical Exam Const alert and oriented x3 HEENT normocephalic Eyes EOMs intact bilaterally Chest inspection of chest normal Resp normal respiratory effort and clear to auscultation bilaterally Cardio Rate: regular rate Rhythm: regular rhythm Heart Sounds: S1 normal and S2 normal; Negative for click, gallop or murmur Extremity no pedal edema Psych mental status grossly normal Assessment & Plan Assessment/Plan (1) PAT (paroxysmal atrial tachycardia): PLAN: The patient's paroxysmal atrial tachycardia is resolved. She remains in sinus rhythm over the last 24 hours. She is tolerating the verapamil 120 mg 3 times daily at this time. She had been on 360 mg daily in her home environment. (2) Elevated troponin: PLAN: Patient's troponins were elevated and her echocardiogram shows segmental wall motion abnormalities. She will undergo left heart catheterization later this morning. Further recommendations pending the outcome of that catheterization. Left heart catheter reveals heavily calcified proximal LAD with no significant stenotic disease. There is 40 to 50% stenosis in the proximal one third. The left main trunk is free of any significant disease. The circumflex is a nondominant vessel and totally obstructed in the proximal one third compromising flow into an OM1 branch which appears to be small to moderate in size and fills via left to left collaterals. The right coronary artery is a dominant vessel it is subtotally obstructing the distal one third with what appears to be a ruptured plaque. There is competitive flow and collateral flow from the left system. The PDA appears to be a moderate size vessel in the AV continuation appears relatively small. The mitral valve shows 4+ mitral regurgitation with pulmonary veins filling from the LV gram. There is inferior severe hypokinesis and what appears to be lateral hypokinesis on the LOMAS ventriculogram. The ejection fraction is estimated at 30-35%. The patient will be referred for surgical heart team approach as the best option of treatment. The patient has what appears to be pulmonary insufficiency I do not have PFTs that she has recently moved here from [place] she is not aware that she has had any previous pulmonary function testing she does have an [id number]-year smoking history. The patient also has a history of carotid endarterectomy on the right side and a totally occluded left carotid artery. This has been followed by the [facility] vascular team. I am reaching out to Dr. Freedman at [facility]. (3) CHF exacerbation: QUALIFIERS: Heart failure type: systolic Qualified Code(s): I50.23 - Acute on chronic systolic (congestive) heart failure PLAN: Patient has segmental wall motion normality with an ejection fraction estimated at 45% there is moderate left atrial enlargement. Further recommendations concerning medical therapy and/or any indicated interventions will be forthcoming once results of the left heart catheterization are available. PLAN: Plan 1. Left heart cath this morning. 2. Further recommendations to follow?see above under #2. Charges/Coding Visit Charges Inpatient E&M: 40438 Subs Hosp L3
--- NOTE | 2024-12-12 09:47 | CASEMGMT ---
Tertiary Insurance review for hospitals In-network with?[facility] Dual insurance if transfer is recommended is as follows: [facility], [facility], [place], [facility], [facility], [facility], , [place], [facility], [facility], and [place]. Deandra Saldana, Discharge Planning Asst.
--- NOTE | 2024-12-12 16:32 | CASEMGMT ---
Social Work SW met with pt to follow up on physician referral. Pt has two visitors in the room and requested SW follow up tomorrow. ALTON Rutledge
[2024-12-12 17:52] LABS: International Normalized Ratio 1.1; Partial Thromboplast Time 28.6 Seconds (24.1-36.2); Prothrombin Time (Protime)PT. 14.1 SECONDS (11.7-14.9)
[2024-12-12] MEDS: Nitroglycerin Oint 1 INCH PACKET 0.5 INCH TD (18:06)
[2024-12-12] MEDS: Spironolactone 25 MG Tablet 12.5 MG PO (18:07)
[2024-12-12] MEDS: Heparin Injection (Vial) 5,000 UNIT/ML VIAL 3500 UNIT IV (18:07)
[2024-12-12] MEDS: Furosemide 40 MG/4 ML Vial IV (18:08)
[2024-12-12] MEDS: HEPARIN/D5w 25,000 UNITS 25,000 UNITS/250 ML IV.SOLN. 7 UNITS CONT INF (18:09)
--- NOTE | 2024-12-12 20:48 | CPS ---
Patient refused PAP therapy for night time use. Stated that she feels as though she is breathing better, stated she only wants to wear it unless absolutely necessary.
[2024-12-12] MEDS: Lisinopril 5 MG Tablet PO (21:04)
[2024-12-12] MEDS: Atorvastatin Calcium 80 MG Tablet PO (21:04)
[2024-12-13] VITALS (19 sets, daily range): BP systolic 77–125; BP diastolic 46–87; PULSE 71–79; RESP 12–19; TEMP 36.6–36.8; O2SAT 92–99; BMI 22.9
[2024-12-13 03:40] LABS: Absolute Lymphocyte Count 1.39 X10^3/uL (0.83-4.51); Absolute Neutrophil Count 6.8 X10^3/uL (2.0-7.7); Basophil# 0.08 X10^3/uL; Basophil% 0.9 % (0-1); Eosinophil# 0.27 X10^3/uL; Eosinophils% 2.9 % (0-5); Hematocrit 39.6 % (37-47); Hemoglobin 13.1 g/dL (12.0-15.0); Lymphocyte # 1.39 X10^3/ul (0.83-4.51); Mean Corp Hgb Conc 33.1 g/dL (32-36); Mean Corpuscular Hgb 30.3 pg (27.0-32.0); Mean Corpuscular Volume 91.7 fL (81-99); Mean Platelet Vol. 9.8 fl (6.2-12.0); Monocyte% 7.6 % (0-10); NRBC Flagged by Analyzer 0 % (0-5); Neutrophil # 6.76 X10^3/uL (2.7-7.7); Neutrophil % 73.1 % (47-70); Platelet Count 393 K/mm3 (150-450); RBC Distribution Width CV 12.6 % (11.6-14.6); RBC Distribution Width SD 42.6 fl (35.1-43.9); Red Blood Count 4.32 M/mm3 (4.2-5.4); White Blood Count 9.3 K/mm3 (4.4-11.0)
[2024-12-13 04:15] LABS: Anion Gap 13 (5-15); BUN 18 mg/dL (4-19); Carbon Dioxide 21.8 mmol/L (21.0-32.0); Chloride 100 mmol/L (98-108); EST Glomerular Filtration Rate 45 (>60); Estimated Creatinine Clearance 29.75 ml/min (50-250); Glucose 279 mg/dL (70-99); Sodium Level 135 mmol/L (133-145)
[2024-12-13] MEDS: 0.9% Saline Lock 10 ML Syringe IV (05:37)
[2024-12-13] MEDS: Levothyroxine 75 MCG Tablet PO (05:37)
[2024-12-13] MEDS: Potassium Chloride Oral Tablet 20 MEQ 60 MEQ PO (06:10)
--- NOTE | 2024-12-13 07:05 | PN.HOSP_ITS ---
Reason for Visit Reason for Visit: Diagnoses Unspecified protein-calorie malnutrition (12/11/24) Nicotine dependence, cigarettes, uncomplicated (12/11/24) Non-ST elevation (NSTEMI) myocardial infarction (12/11/24) Other supraventricular tachycardia (12/11/24) Acute on chronic systolic (congestive) heart failure (12/11/24) Heart failure, unspecified (12/11/24) Occlusion and stenosis of bilateral carotid arteries (12/11/24) Peripheral vascular disease, unspecified (12/11/24) Acute respiratory failure with hypoxia (12/11/24) Acute respiratory distress (12/11/24) Other specified abnormal findings of blood chemistry (12/11/24) Subjective Subjective Still worried about the meth lab in the tunnels. Talks about how they are constant watched and that there are lasers from [email or web address] that burn her sister's legs. Objective Data Objective Data Vital Signs: Vital Signs Temp Pulse Resp BP Pulse Ox O2 Del Method O2 Flow Rate 36.6 C 71 18 111/74 93 Nasal Cannula 6 12/13/24 06:00 12/13/24 06:00 12/13/24 06:00 12/13/24 06:00 12/13/24 06:00 12/13/24 06:00 12/13/24 06:00 FiO2 40 12/12/24 04:00 Oxygen Flow Rate (L/min) 6 Oxygen Delivery Method Nasal Cannula Weight: 53.1 kg Body Mass Index (BMI) 22.9 Intake & Output: Intake and Output for Last 24 Hours 12/11/24 12/12/24 12/13/24 23:59 23:59 23:59 Intake Total 1240 / 1240 1100 / 1500 810.98 / 810.98 Output Total 1200 / 1200 400 / 1200 1250 / 1250 Balance 40 / 40 700 / 300 -439.02 / -439.02 Lab / Micro Data 12/13/24 03:35 12/13/24 03:35 Labs: Laboratory Results - last 24 hr 12/12/24 16:47: PT 14.1, INR 1.1, APTT 28.6 12/13/24 00:42: APTT 49.0 H 12/13/24 03:35: WBC 9.3, RBC 4.32, Hgb 13.1, Hct 39.6, MCV 91.7, MCH 30.3, MCHC 33.1, RDW Std Deviation 42.6, RDW Coeff of Luis 12.6, Plt Count 393, MPV 9.8, Immature Gran % (Auto) 0.500, Neut % (Auto) 73.1 H, Lymph % (Auto) 15.0 L, [place] % (Auto) 7.6, Eos % (Auto) 2.9, Baso % (Auto) 0.9, Absolute Neuts (auto) 6.8, Absolute Lymphs (auto) 1.39, Nucleated RBC % 0, Sodium 135, Potassium 3.0 L, Chloride 100, Carbon Dioxide 21.8, Anion Gap 13, BUN 18, Creatinine 1.30 H, E stim Creat Clear Calc 29.75 L, Est GFR (MDRD) Non-Af 45 L, BUN/Creatinine Ratio 14.0, Glucose 279 H, Calcium 8.0 Rhythm Strip Rhythm Strip: Sinus Rhythm Rate: 80 Physical Exam Const alert Constitutional Narrative: anxious. Resp normal respiratory effort and no retractions GI normal to inspection, nondistended, normoactive bowel sounds, soft to palpation, non-tender and non-distended Neuro Sensorium / Orientation: awake and alert Assessment & Plan Assessment/Plan (1) Acute hypoxic respiratory failure: PLAN: Was down to 86% on 2l. Eventually being placed on BiPAP, but since weaned down to 5liters 2/2 CHF exacerbation (2) CHF exacerbation: QUALIFIERS: Heart failure type: systolic Qualified Code(s): I 50.23 - Acute on chronic systolic (congestive) heart failure PLAN: Acute HFrEF Echo: EF 45%, severe inferior, basal to mid posterior and basal to mid lateral hypokinesisis. Stage II DD. Severe MR. Continue furosemide (3) NSTEMI, initial episode of care: PLAN: On ASA and therapeutic enoxaparin. Cards following Left heart cath on 12/13 showed 80% proximal RCA, 95% distal RCA lesion w thrombus. 4+MR DW Dr. Holt he is recommending transfer to tertiary facility for valve replacement and coronary revascularization. (4) Protein calorie malnutrition: PLAN: Nutrition consult (5) Low TSH level: PLAN: FT4 elevated. Will decrease levothyroxine from 112 to 75. Start on 12/13 Outpt follow up. (6) Psychosis: PLAN: Self-reported. But from her description was that she was not being intentionally poisoned, but fumes from a meth lab in tunnels under her house are in her ventilation. I am unclear about the accuracy of her claims. I did discuss with social work to further field her concerns. Patient with marked paranoia about literal space lasers. I am concerned pt has schizophrenia. I would strongly recommend psychiatric consult at [facility]. She does not require pink slip at this time, but her paranoia is profound and could potentially impact her long-term medical care. PLAN: Plan Chronic conditions: * PAD: s/p CEA. on cilostazol. * tobacco abuse: complicates care and recovery * anxiety: add PRN lorazepam. VTE prophylaxis: anticoagulated. Disposition: awaiting on bed availability at [facility]. Charges/Coding Visit Charges Inpatient E&M: 78461 Subs Hosp L2
[2024-12-13 08:36] LABS: Partial Thromboplast Time 116.2 Seconds (24.1-36.2)
--- NOTE | 2024-12-13 08:44 | PCM.PN.CARD ---
Subjective Subjective Patient resting comfortably in the bed. She has yet to be transferred to [facility] for further evaluation of her mitral regurgitation and coronary disease. I did speak in detail with a antenna machine operator there they accepted her to be at transferred to the CVICU. Objective Data Vital Signs: Vital Signs Temp Pulse Resp BP Pulse Ox O2 Del Method O2 Flow Rate 97.8 F 76 18 77/55 L 96 Nasal Cannula 4 12/13/24 07:00 12/13/24 07:00 12/13/24 07:00 12/13/24 07:00 12/13/24 07:39 12/13/24 07:39 12/13/24 07:39 FiO2 40 12/12/24 04:00 Oxygen Flow Rate (L/min) 4 Oxygen Delivery Method Nasal Cannula Weight: 117 lb 1.047 oz Body Mass Index (BMI) 22.9 Intake & Output: Intake and Output for Last 24 Hours 12/11/24 12/12/24 12/13/24 23:59 23:59 23:59 Intake Total 1240 / 1240 1100 / 1500 810.98 / 810.98 Output Total 1200 / 1200 400 / 1200 1250 / 1250 Balance 40 / 40 700 / 300 -439.02 / -439.02 Lab / Micro Data 12/13/24 03:35 12/13/24 03:35 Labs: Laboratory Results - last 24 hr 12/12/24 16:47: PT 14.1, INR 1.1, APTT 28.6 12/13/24 00:42: APTT 49.0 H 12/13/24 03:35: WBC 9.3, RBC 4.32, Hgb 13.1, Hct 39.6, MCV 91.7, MCH 30.3, MCHC 33.1, RDW Std Deviation 42.6, RDW Coeff of Luis 12.6, Plt Count 393, MPV 9.8, Immature Gran % (Auto) 0.500, Neut % (Auto) 73.1 H, Lymph % (Auto) 15.0 L, Tate % (Auto) 7.6, Eos % (Auto) 2.9, Baso % (Auto) 0.9, Absolute Neuts (auto) 6.8, Absolute Lymphs (auto) 1.39, Nucleated RBC % 0, Sodium 135, Potassium 3.0 L, Chloride 100, Carbon Dioxide 21.8, Anion Gap 13, BUN 18, Creatinine 1.30 H, Estim Creat Clear Calc 29.75 L, Est GFR (MDRD) Non-Af 45 L, BUN/Creatinine Ratio 14.0, Glucose 279 H, Calcium 8.0 12/13/24 08:00: APTT 116.2 H* Rhythm Strip Rhythm Strip: Sinus Rhythm Rate: 78 Cardiology Labs/Tests 12/12/24 16:47: PT 14.1, INR 1.1, APTT 28.6 12/13/24 00:42: APTT 49.0 H 12/13/24 03:35: WBC 9.3, RBC 4.32, Hgb 13.1, Hct 39.6, MCV 91.7, MCH 30.3, MCHC 33.1, Plt Count 393, MPV 9.8, Immature Gran % (Auto) 0.500, Neut % (Auto) 73.1 H, Lymph % (Auto) 15.0 L, Tate % (Auto) 7.6, Eos % (Auto) 2.9, Baso % (Auto) 0.9, Absolute Neuts (auto) 6.8, Nucleated RBC % 0, Sodium 135, Potassium 3.0 L, Chloride 100, Carbon Dioxide 21.8, Anion Gap 13, BUN 18, Creatinine 1.30 H, Est GFR (MDRD) Non-Af 45 L, BUN/Creatinine Ratio 14.0, Glucose 279 H, Calcium 8.0 12/13/24 08:00: APTT 116.2 H* Rhythm: EKG: ECHO: Stress Test: Cardiac Cath: PCI: CT Surgery: Holter monitor: EPS: PPM: CXR: Chest CT Scan: Physical Exam Const alert and oriented x3 HEENT normocephalic Eyes EOMs intact bilaterally Neck no JVD Resp normal respiratory effort and clear to auscultation bilaterally Cardio Rate: regular rate Rhythm: regular rhythm Heart Sounds: S1 normal, S2 normal and murmur systolic II/ blowing holo left sternal border; Negative for click or gallop Extremity no pedal edema Neuro Neuro Narrative: Alert and oriented X3 Psych mental status grossly normal Assessment & Plan Assessment/Plan (1) PAT (paroxysmal atrial tachycardia): PLAN: Since patient's acute respiratory distress resolved she has remained in sinus rhythm telemetry today shows normal sinus rhythm at 78 bpm. The patient does have a history of severe mitral regurgitation and is at risk of developing atrial fibrillation. She has had no atrial fibrillation documented on telemetry since admission. (2) NSTEMI, initial episode of care: PLAN: Patient has a subtotal ruptured plaque lesion in the distal right coronary prior to a moderate to large size PDA and AV continuation. She has a chronically occluded proximal circumflex and mild to moderate disease throughout the left anterior descending. Patient's LV ejection fraction is estimated in the 35 to 40% range. (3) Acute hypoxic respiratory failure: PLAN: Patient's respiratory situation has markedly improved with diuresis. She is now down to 4 L nasal cannula. Patient has not had PFTs and she does have an extensive tobacco exposure. (4) Carotid arterial disease: QUALIFIERS: Carotid artery disease type: stenosis Laterality: bilateral Qualified Code(s): I65.23 - Occlusion and stenosis of bilateral carotid arteries PLAN: Patient has a history of 100% occluded left internal carotid artery and is status post right internal carotid endarterectomy. She has also had basilar artery aneurysm treated percutaneously in [place]. She has had subsequent MRIs since then. The patient is followed by the vascular team at the [facility]. (5) Congestive heart failure: QUALIFIERS: Heart failure type: unspecified Heart failure chronicity: unspecified Qualified Code(s): I50.9 - Heart failure, unspecified PLAN: Patient's heart failure is improved significantly. O2 requirements are decreasing. The patient has no lower extremity edema her lungs sound clear to auscultation on today's exam. The patient has a combination of ischemic cardiomyopathy and valvular heart disease. Her catheterization revealed 4+ mitral regurgitation and severe disease in the right coronary artery and chronically occluded circumflex. The patient has been accepted for transfer to [facility] for further evaluation and treatment. I discussed the details of her case with the antenna machine operator on-call last night they agreed to accept her to their CVICU unit. PLAN: Plan 1. Continue IV heparin. 2. Continue with current diuretic therapy. 3. Continue other medical therapy as indicated by the hospitalist team. 4. Await transfer to [facility] when a bed is available. Charges/Coding Visit Charges Inpatient E&M: 34505 Subs Hosp L3
[2024-12-13] MEDS: Empagliflozin 10 MG Tablet PO (09:48)
[2024-12-13] MEDS: Metoprolol Tartrate 25 MG Tablet PO (09:48)
[2024-12-13] MEDS: Cilostazol 50 MG Tablet PO (09:48)
[2024-12-13] MEDS: Spironolactone 25 MG Tablet 12.5 MG PO (09:49)
[2024-12-13] MEDS: Aspirin 81 MG TAB.CHEW PO (09:49)
[2024-12-13] MEDS: Furosemide 40 MG/4 ML Vial IV (09:56)
[2024-12-13] MEDS: Lisinopril 5 MG Tablet PO (09:56)
--- NOTE | 2024-12-13 12:17 | CASEMGMT ---
Addendum entered by Sheeba Santos 12/13/24 12:58: This is likely psych related. However, patient is not homicidal or suicidal. Patient's medical care takes precedence at this time. Sheeba Brandon Danielle MERI EDOUARD Addendum entered by Sheeba Santos 12/13/24 12:40: During conversation patient mentioned that there are satellites and spies. Patient said her sister has been reading up on it. Patient does not want to read up on it as it scares her. Sheeba Santos MERI EDOUARD Original Note: SW received a consult for patient's concern for meth lab and fumes getting into her trailer. SW met with patient. Introduced self and role at [facility]. SW asked patient about situation regarding meth. Patient appeared to get worked up as her breathing increased and her pulse ox alarmed. SW encouraged patient to relax everything is okay. Patient then calmed down. Patient told SW not to say meth too loud. SW assured patient there was no one in the hallway at the time. Patient said she spoke to her sister and they decided not to say anymore about it. However, patient did go on to tell SW. Patient told SW she has never had issues with her lungs in the past and now all of the sudden she is having issues and it is because of these people cooking meth. Apparently patient lives with her sister in a trailer. Patient said there are people that are cooking meth under their trailer via tunnels. These people are using her sister's utilities. The fumes come up through their trailer. Her sister has tried to tell the nurse extern, but she then got pink slipped and went to a psych unit. Patient said, We are not crazy. Patient said she went to the police, but they refused to take a report. Patient said the police are part of the situation. There is a lot of money in the meth business. Patient said the government is involved. Patient said there is nothing anyone can do. SW asked if they are able to move. Patient said it would be too much for her sister. Patient said that regardless these people would follow them wherever they went. There are people following them and watching them no matter what they do. Patient said they are on her phone. Patient adamantly told SW not to say anything to anyone for their safety. Patient is being transferred to a tertiary care center for further medical care. At this time SW can call Adult Protective Services to see if they can check on situation. Sheeba Santos MSW SILKE
--- NOTE | 2024-12-13 14:18 | DS.PCM_ITS ---
Providers Date of Admission: 12/11/24 Primary Care Physician: Dr. Marianela Goodson, DO Consultations 12/11/24 03:40 Consult: Cardiology Routine Consulting Provider: Chucho Holt Reason for Consult: Congestive heart failure elevated troponin EMERGENT Consult: Yes MD Notified: Yes Date Notified: 12/11/24 Time Notified: 03:02 Method of Notification: ED Physician Initiated Reason For Visit: ACUTE RESPIRATORY DISTRESS, CONGESTIVE HEART Diagnosis Discharge Diagnosis (1) Acute hypoxic respiratory failure: Status: Acute Code(s): J96.01 - Acute respiratory failure with hypoxia Plan: Was down to 86% on 2l. Eventually being placed on BiPAP, but since weaned down to 5liters 2/2 CHF exacerbation (2) CHF exacerbation: Status: Chronic Code(s): I50.9 - Heart failure, unspecified Qualifiers: Heart failure type: systolic Qualified Code(s): I50.23 - Acute on chronic systolic (congestive) heart failure Plan: Acute HFrEF Echo: EF 45%, severe inferior, basal to mid posterior and basal to mid lateral hypokinesisis. Stage II DD. Severe MR. Continue furosemide (3) NSTEMI, initial episode of care: Status: Acute Code(s): I21.4 - Non-ST elevation (NSTEMI) myocardial infarction Plan: On ASA and therapeutic enoxaparin. Cards following Left heart cath on 12/13 showed 80% proximal RCA, 95% distal RCA lesion w thrombus. 4+MR DW Dr. Holt he is recommending transfer to tertiary facility for valve replacement and coronary revascularization. (4) Protein calorie malnutrition: Status: Acute Code(s): E46 - Unspecified protein-calorie malnutrition Plan: Nutrition consult (5) Low TSH level: Status: Acute Code(s): R79.89 - Other specified abnormal findings of blood chemistry Plan: FT4 elevated. Will decrease levothyroxine from 112 to 75. Start on 12/13 Outpt follow up. (6) Psychosis: Status: Acute Code(s): F29 - Unspecified psychosis not due to a substance or known physiological condition Plan: Self-reported. But from her description was that she was not being intentionally poisoned, but fumes from a meth lab in tunnels under her house are in her ventilation. I am unclear about the accuracy of her claims. I did discuss with social work to further field her concerns. Patient with marked paranoia about literal space lasers. I am concerned pt has schizophrenia. I would strongly recommend psychiatric consult at [facility]. She does not require pink slip at this time, but her paranoia is profound and could potentially impact her long-term medical care. Plan Chronic conditions: * PAD: s/p CEA. on cilostazol. * tobacco abuse: complicates care and recovery * anxiety: add PRN lorazepam. VTE prophylaxis: anticoagulated. Disposition: awaiting on bed availability at [facility]. Medications at Discharge Home Medications amlodipine 10 mg tablet 10 mg PO DAILY htn 03/07/24 cilostazol 50 mg tablet 50 mg PO BID 10/18/24 levothyroxine 112 mcg tablet 112 mcg PO DAILY 12/10/24 Hospital Course Operations None Procedures 2-D Echocardiogram and Cardiac catheterization Summary of Care Provided Minutes Spent on Discharge: 35 Hospital Course: This is a 69-year-old female presents with shortness of breath. Patient was found to be in acute CHF exacerbation. She Lasix which did help. Additionally she also had non-STEMI with troponins that peaked at 2120. Patient started anticoagulation. Patient had echocardiogram that showed an EF 45% with stage II diastolic dysfunction with moderately enlarged left atrium and severe mitral valve regurgitation. Left heart catheterization showed 80% stenosis of the proximal RCA and no 5% of the distal RCA and 95% stenosis of mid D1 and subtotal occlusion of the proximal left circumflex. And 4+ mitral vegetation. Cardiology recommended transfer. Patient was accepted [facility] at [facility] and will be discharged there today. Patient's course was rather uncomplicated other than patient with severe paranoia. Patient thinking that there is a meth lab popping fumes into her home as well as space lasers burning her sisters and her thighs amongst many other concerns. It may be beneficial to have psychiatry see her to see if she needs to be on any kind of treatments. Is unclear if patient does have schizophrenia but that is certainly a concern given her profound paranoia. Some this paranoia may prohibit her from having adequate follow-up and medical treatment on long- term. Weight / BMI Weight Weight: 53.1 kg Body Mass Index (BMI) 22.9 ABG / Lab / Microbiology Data 12/13/24 03:35 12/13/24 03:35 Laboratory: Laboratory Results - last 24 hr 12/12/24 16:47: PT 14.1, INR 1.1, APTT 28.6 12/13/24 00:42: APTT 49.0 H 12/13/24 03:35: WBC 9.3, RBC 4.32, Hgb 13.1, Hct 39.6, MCV 91.7, MCH 30.3, MCHC 33.1, RDW Std Deviation 42.6, RDW Coeff of Luis 12.6, Plt Count 393, MPV 9.8, Immature Gran % (Auto) 0.500, Neut % (Auto) 73.1 H, Lymph % (Auto) 15.0 L, [place] % (Auto) 7.6, Eos % (Auto) 2.9, Baso % (Auto) 0.9, Absolute Neuts (auto) 6.8, Absolute Lymphs (auto) 1.39, Nucleated RBC % 0, Sodium 135, Potassium 3.0 L, Chloride 100, Carbon Dioxide 21.8, Anion Gap 13, BUN 18, Creatinine 1.30 H, E stim Creat Clear Calc 29.75 L, Est GFR (MDRD) Non-Af 45 L, BUN/Creatinine Ratio 14.0, Glucose 279 H, Calcium 8.0 12/13/24 08:00: APTT 116.2 H* D/C Instructions Discharge Diet: Low fat / Low cholesterol DC O2, CPAP, BIPAP Needs Home O2 Discharge instructions: Yes Type of respiratory needs?: Oxygen Oxygen frequency: Continuous Continuous oxygen liters per minute: 2 DC home with Oxygen: Yes Home O2 MD Review: I have reviewed the oxygen testing, and the patient qualifies for home oxygen equipment and portability. The patient is mobile in the home and the community. Meaningful Use Info Meaningful Use Meaningful Use Diagnoses (Choose all that apply): AMI AMI/Post PCI/Angioplasty Aspirin given w/in 24hrs of arrival?: Yes ASA at discharge?: Yes Antiplatelet Therapy at Discharge:: No Statins at discharge?: Yes Evaristo/ARB at discharge?: Yes Beta Shawn at discharge?: No Reason Beta Shawn not ordered:: Hypotension Done w/ Acute MA measure.: Yes Documented LVEF (%): 45 Ischemic Stroke Statin Dosing Therapy Reference: STATIN DOSE THERAPY REFERENCE: * Patients > 75 years receive moderate or high dose statin therapy. * Patients 75 years or YOUNGER should receive HIGH intensity statin dose unless contraindicated. You will be required to document reason for non-treatment if statin daily dose does not meet guidelines. HIGH DOSE STATIN THERAPY DAILY Atorvastatin > than or = to 40 mg Rosuvastatin > than or = to 20 mg Amlodipine + Atorvastatin > than or = to 2.5/40 mg Ezetimibe + Simvastatin 10/80 mg Simvastatin 80mg Discharge Plan Admission Admit Date/Time: 12/11/24 02:59 Primary Reason for Your Visit: MA.CHF. Attending Provider: Cristopher Forbes Primary Care Provider: Marianela Goodson Consulting Providers: Chucho Holt; Francis Bojorquez Discharge Orders/Prescriptions Prescriptions: No Action cilostazol 50 mg tablet 50 mg PO BID amlodipine 10 mg tablet 10 mg PO DAILY levothyroxine 112 mcg tablet 112 mcg PO DAILY Referrals / Follow Up: Marianela Goodson DO [Primary Care Provider] - Care Physician,No Primary [Non-Staff] - Disposition Disposition (needs filled in before D/C Order can be placed): Acute Care Hospital Charges/Coding Visit Charges Inpatient E&M: 78033 Disch Hosp >30min
--- NOTE | 2025-02-11 09:45 | CL.D_ITS ---
Patient Name: GUILLERMINA ANSARI Study Date: 12/12/2024 Performing: Virginie Galarza MD Ht: 60 inches 152.4 cm : 1955 Wt: 115.08 lbs 52.2 kg Age: 69 Gender: female BSA: 1.48 PROCEDURE(S) PERFORMED DC01-([id number])LHC/COR/LV CLINICAL PROFILE AND INDICATIONS Indications: ACS > 24 hrs Heart Failure: NYHA Class: 4 Stress/Imaging Stress/Image Study Performed: No CAD Presentations: Non-STEMI. Symptom onset Date/Time: 12/10/2024 Time Not Available CONCLUSIONS 50% Mid LAD; 95% Mid D1 (small 1.5 mm vessel) Prox LCX sub-total 80% Prox RCA, 95% distal RCA complex lesion with thrombus Collaterals to RPDA from left system LVEF 35%, LVEDP 47 mm HG 4+ MR RECOMMENDATIONS DESCRIPTION OF PROCEDURE The patient arrived to the procedure lab. The risks and benefits of the procedure as well as a full description of our services here and current unavailability of surgical backup were fully explained to the patient and/or their significant other prior to the catheterization. The Timeout was completed, verifying the correct patient and procedure. The patient's procedural site was prepped and draped in the usual fashion. Local anesthetic was given subcutaneously to right radial region with Lidocaine 2%. Using a modified Seldinger technique, arterial access was obtained via the right radial artery, a 6Fr sheath was inserted. Left Coronary Artery selective angiography was performed in multiple views using a 5 Fr. 4.0 Loretto catheter. Right Coronary Artery selective angiography was then performed in multiple views using a 5 Fr. 4.0 Loretto catheter. Left Ventriculography was performed in LOMAS projection using a 5 Fr. Pigtail catheter. LV to AO pullback pressures were then recorded. CORONARY ANGIOGRAPHY DOMINANCE: Right Dominant LEFT HEART ASSESSMENT Left Ventricular Ejection Fraction: by LV Gram 35 % LVEDP: 47 mmHg LEFT MAIN: Angiographically normal LEFT ANTERIOR DESCENDING ARTERY: LAD: Calcified 20% Proximal lesion in LAD Calcified 15% Proximal lesion in LAD Tubular 50% Proximal lesion in LAD DIAGONAL 1: Tubular 95% Mid lesion in DIAG1 RIGHT CORONARY ARTERY: RCA: Tubular 80% Proximal lesion in RCA Complex 95% Distal lesion in RCA COLLATERAL FLOW: Collateral flow from SEP to RT PDA VALVE FINDINGS: Mitral Valve Insufficiency - Grade 4 COMPLICATIONS No Complications PROCEDURE MEDICATIONS Fentanyl 50 mcg IV Versed 1 mg IV Oxygen: 4 L/min via nasal cannula Heparin given IA 12/12/2024 12:46:50 Lasix 40 mg IV 12/12/2024 13:09:12 Verapamil 2.5mg, Ntg 200mcgs, 2000 units of Heparin given IA 12/12/2024 12:46:50 SUMMARY OF HEMODYNAMIC DATA Time AIR REST ECG 12:25:40 LV 120/16, 46 12:58:15 LV 120/16, 47 12:58:23 LV 100/13, 36 12:59:33 LVp 118/30, 43 13:02:39 AOp 121/26 (54) 13:02:46 13:23:55 Signed By Virginie Galarza MD On 12/12/2024 13:31:04 Virginie Galarza MD
== END 2024-12-13 15:45 | disposition short-term general hospital (02) | DRG 280 ==
LOC: ED 12-11 03:06 → ICU 12-11 03:09
PROVIDERS: Internal Medicine Cardiovascular Disease; Admitting Provider Family Medicine; Emergency Provider Emergency Medicine; PCP Family Medicine
DX: I21.4 Non-ST elevation (NSTEMI) myocardial infarction (principal); J96.01 Acute respiratory failure with hypoxia; J18.9 Pneumonia, unspecified organism; I50.43 Acute on chronic combined systolic (congestive) and diastolic (congestive) heart failure; E46 Unspecified protein-calorie malnutrition; E44.0 Moderate protein-calorie malnutrition; J44.1 Chronic obstructive pulmonary disease with (acute) exacerbation; I13.0 Hypertensive heart and chronic kidney disease with heart failure and stage 1 through stage 4 chronic kidney disease, or unspecified chronic kidney disease; I47.19 Other supraventricular tachycardia; F20.9 Schizophrenia, unspecified; N18.9 Chronic kidney disease, unspecified; I73.9 Peripheral vascular disease, unspecified; I34.0 Nonrheumatic mitral (valve) insufficiency; I65.22 Occlusion and stenosis of left carotid artery; F17.210 Nicotine dependence, cigarettes, uncomplicated; E78.5 Hyperlipidemia, unspecified; K44.9 Diaphragmatic hernia without obstruction or gangrene; I25.10 Atherosclerotic heart disease of native coronary artery without angina pectoris; I25.5 Ischemic cardiomyopathy; F22 Delusional disorders; I95.9 Hypotension, unspecified; I24.89 Other forms of acute ischemic heart disease; R79.89 Other specified abnormal findings of blood chemistry; Z79.02 Long term (current) use of antithrombotics/antiplatelets; Z79.890 Hormone replacement therapy; Z68.22 Body mass index [BMI] 22.0-22.9, adult
CPT/HCPCS: 71046; 71275; 80048; 80061; 83735; 83880; 84439; 84443; 84484; 85025; 85610; 85730; 93005; 93306; 93458; 94002; 94003; 94762; 97802; 99152; 99153; 99285; 99406; Q9967; A4216; C1769; C1894; J1938; J2405

== ENCOUNTER 2025-01-07 14:43 | Inpatient (IN) | payer MEDICARE, MEDICAID, SELFPAY ==
[2025-01-07] VITALS (38 sets, daily range): BP systolic 78–158; BP diastolic 42–130; PULSE 51–61; RESP 13–27; TEMP 36.7–37; O2SAT 86–98; BMI 23.8; BMI 23.0
--- NOTE | 2025-01-07 14:56 | ED.RN ---
pt o2 sats decrease to 87% on room air. pt placed on 2L NC
--- NOTE | 2025-01-07 15:05 | RAD_ITS ---
PROCEDURE: CHEST 1 VIEW (PORTABLE) 01/07/2025 REASON FOR EXAM: CHEST PAIN TECHNIQUE: Frontal view of the chest. COMPARISON: Prior study dated December 11, 2024. FINDINGS: Hardware: EKG electrodes are seen. A left-sided ICD is present. Heart: Mild cardiomegaly. Lungs: Vascular congestion mild CHF. There is blunting of the left costophrenic angle. Bones: Other: RAD/Chest 1 View (Portable) IMPRESSION: Cardiomegaly and mild CHF. Blunting of the left costophrenic angle. Reading Location: [facility]
--- NOTE | 2025-01-07 15:05 | EKG12_ITS ---
Test Reason : SOB Blood Pressure : */* mmHG Vent. Rate : 55 BPM Atrial Rate : 55 BPM P-R Int : 134 ms QRS Dur : 106 ms QT Int : 526 ms P-R-T Axes : 69 -5 71 degrees QTcB Int : 503 ms Sinus bradycardia Inferior infarct (cited on or before 11-Dec-2024) Prolonged QT Abnormal ECG Confirmed by NICK BRICENO, JOSLYN ([id number]), book editor PARISA ENAMORADO ([id number]) on 01/08/2025 8:13:35 AM Referred By: ERENDIRA/LINDA Confirmed By: JOSLYN ROMERO MD
--- NOTE | 2025-01-07 15:17 | CT_ITS ---
PROCEDURE: CTA CHEST W/WO CONTRAST 01/07/2025 REASON FOR EXAM: HYPOXIA TECHNIQUE: CTA CHEST W/WO CONTRAST Multiplanar Sagittal and Coronal images were obtained. CONTRAST: 100 mL of Isovue 370 One or more dose reduction techniques were used (e.g., Automated exposure control, adjustment of the mA and/or kV according to patient size, use of iterative reconstruction technique). RADIATION DOSE SUMMARY: DLP: 372 mGycm COMPARISON: 12/11/2024 FINDINGS: PULMONARY ARTERIES: No evidence of pulmonary embolism. LUNGS AND PLEURA: Mild pulmonary edema. Moderate pulmonary emphysema. Mild bibasilar pleural effusions. Loculated right pleural fissural effusion. No definite focal consolidations. No mass or nodule. No pneumothorax. MEDIASTINUM: Prominent mediastinal lymph nodes. [id number] cardiomegaly. Trace pericardial effusion. Extensive coronary atherosclerosis/stents. The aorta shows no acute findings. The pulmonary trunk, and branches of the vessels in the mediastinum are within normal limits. SUPRACLAVICULAR AND AXILLARY: No abnormalities seen in these regions. No mass or significant lymphadenopathy. UPPER ABDOMEN: The visualized upper abdomen is unremarkable. BONES AND SOFT TISSUES: The ribs are unremarkable. The visualized spine shows no significant acute findings. No focal bony mass lesions noted. The subcutaneous soft tissues are unremarkable. Left chest pacer. CT/CTA Chest W/WO Contrast IMPRESSION: No acute pulmonary emboli. No focal consolidations. Mild pulmonary edema. Moderate pulmonary emphysema. Mild bibasilar pleural ef fusions. [id number] cardiomegaly and trace pericardial effusion. Reading Location: [id number]
--- NOTE | 2025-01-07 15:20 | ED.VIS.CHEST ---
HPI History of Present Illness Chief Complaint: Chest Pain Informant: patient and family Onset/Context/Timing Onset: Today Narrative Narrative: 61-year-old female extensive past medical history including chronic kidney disease, progression of disease, hypertension, history of pulmonary emboli, CHF, mitral regurg. Recently was hospitalized here then [facility] Been the [facility] recently had a pacemaker defibrillator placed. Presents today with his chronic nagging right shoulder discomfort and shortness of breath. Prior Similar Symptoms: Yes Recent Illness/Hospitalization: Yes CVD Risk Factors: Positive for Hypertension PE Risk Factors: Positive for Recent Immobilization, Prior DVT or PE and - (Recent hospitalization); Negative for Recent Travel/Surgery TAD Risk Factors: Negative for Marfan's Syndrome [facility] Medical History Smoking 1/2 pack a day or less Peripheral vascular disease Congestive heart failure Carpal tunnel syndrome on right Closed displaced bicondylar fracture of left tibia with routine healing CKD (chronic kidney disease) Cannabis use disorder HLD (hyperlipidemia) Tobacco use Carotid arterial disease Hypertension Home Medications ?Medication ?Instructions ?Recorded ?Last Taken ?Type amiodarone 200 mg tablet 200 mg PO DAILY 01/07/25 01/07/25 History aspirin 81 mg tablet,delayed 81 mg PO DAILY 01/07/25 01/07/25 History release (Adult Aspirin Regimen) atorvastatin 80 mg tablet 80 mg PO DAILY 01/07/25 01/06/25 History clopidogrel 75 mg tablet 75 mg PO DAILY 01/07/25 01/07/25 History empagliflozin 10 mg tablet 10 mg PO DAILY 01/07/25 01/07/25 History (Jardiance) hydralazine 10 mg tablet 20 mg PO Q8H 01/07/25 01/07/25 History hydroxyzine HCl 10 mg tablet 10 mg PO Q6H PRN 01/07/25 Unknown History ibandronate 150 mg tablet 150 mg PO QMONTH 01/07/25 Unknown History levothyroxine 100 mcg tablet 100 mcg PO DAILY 01/07/25 01/07/25 History (Synthroid) metoprolol succinate 25 mg 12.5 mg PO DAILY 01/07/25 01/07/25 History tablet,extended release 24 hr torsemide 20 mg tablet 20 mg PO DAILY 01/07/25 01/07/25 History Allergy/AdvReac Type Severity Reaction Status Date / Time No Known Allergies Allergy Verified 12/10/24 23:26 Family History Mother , 89 Hypertension Pulmonary fibrosis Heart disease Glaucoma Father , 80 Hypertension Heart disease Diabetes Surgical History History of CEA (carotid endarterectomy) History of hip surgery Social History household members: family current occupational status: retired pets and animals: No Smoking Status: Former smoker alcohol intake: never substance use type: marijuana caffeine: Yes Type: coffee Number of servings: 1 do you feel safe at home: Yes ROS ROS ED ROS Narrative Shortness of breath. Acute on chronic right shoulder pain that is not new. Constitutional Constitutional ED: Denies chills or fever(s) Eyes Eyes: Reports none ENT ENT ED: Denies ear pain Cardiovascular Cardiovascular: Reports as per HPI Respiratory/Chest Respiratory/Chest: Reports dyspnea; Denies cough Gastrointestinal Gastrointestinal: Denies abdominal pain Genitourinary Genitourinary ED: Denies dysuria or hematuria Musculoskeletal Musculoskeletal: Denies arthralgias or back pain Integumentary Denies abscess or Abrasions Neurologic Neurologic: Denies headache(s) Psychiatric Psychiatric: Denies anxiety or depression Endocrine Endocrinology: Denies cold intolerance Hematologic/Lymphatic Hematologic/Lymphatic: Denies easy bleeding, easy bruising or lymphadenopathy Allergic/Immunologic Allergic/Immunologic ED: Denies mouth swelling, tongue swelling or urticaria EXAM Physical Exam Narrative Exam Narrative: 69-year-old female sitting upright in bed. She is hypotensive 94-67 and her pulse ox was 87% on room air on 2 L she is 95%. She is in no distress lying in bed. Sister is at bedside. H EENT exam pupils round react light. moist mucous membranes. Neck nontender no JVD. Lungs clear to auscultation bilaterally. Heart bradycardic rate about 55 no murmur. Chest wall ribs nontender. Abdomen soft nontender. Moving all 4 extremities. Nontender no edema. Back there is no reproducible shoulder or back pain. Neurologically she is awake alert. Answer questions following commands. Const Vital Signs: 01/07/25 14:43 01/07/25 14:47 01/07/25 14:56 Temperature 98.1 F Temperature Source Oral Pulse Rate 56 L Respiratory Rate 16 Respiratory Effort Short of Breath Blood Pressure 94/67 Blood Pressure Mean 76 Pulse Ox 93 87 Oxygen Delivery Method Room Air Room Air Oxygen Flow Rate (L/min) 01/07/25 15:05 01/07/25 15:43 01/07/25 15:47 Temperature Temperature Source Pulse Rate 51 L 51 L Respiratory Rate 17 17 Respiratory Effort Blood Pressure 96/49 L Blood Pressure Mean 64 Pulse Ox 95 93 93 Oxygen Delivery Method Nasal Cannula Room Air Oxygen Flow Rate (L/min) 2 01/07/25 16:00 01/07/25 16:00 01/07/25 16:15 Temperature Temperature Source Pulse Rate 56 L 51 L Respiratory Rate 16 19 H Respiratory Effort Blood Pressure 90/43 L 90/43 L 110/76 Blood Pressure Mean 58 57 87 Pulse Ox 95 92 Oxygen Delivery Method Nasal Cannula Oxygen Flow Rate (L/min) 01/07/25 16:15 01/07/25 16:30 01/07/25 16:45 Temperature Temperature Source Pulse Rate 54 L 58 L Respiratory Rate 14 26 H Respiratory Effort Blood Pressure 110/76 142/66 H 151/130 H Blood Pressure Mean 87 86 139 Pulse Ox 93 88 Oxygen Delivery Method Oxygen Flow Rate (L/min) 01/07/25 17:00 01/07/25 17:00 01/07/25 17:11 Temperature Temperature Source Pulse Rate 58 L 55 L 54 L Respiratory Rate 17 13 21 H Respiratory Effort Blood Pressure 94/64 94/54 L Blood Pressure Mean 74 66 Pulse Ox 94 98 96 Oxygen Delivery Method Nasal Cannula Oxygen Flow Rate (L/min) 3 01/07/25 17:15 01/07/25 17:30 01/07/25 17:45 Temperature Temperature Source Pulse Rate 53 L 51 L 53 L Respiratory Rate 19 H 26 H 24 H Respiratory Effort Blood Pressure 92/53 L 92/54 L 98/61 Blood Pressure Mean 66 65 73 Pulse Ox 94 96 96 Oxygen Delivery Method Oxygen Flow Rate (L/min) 01/07/25 18:00 01/07/25 18:15 01/07/25 18:30 Temperature Temperature Source Pulse Rate 54 L Respiratory Rate 16 Respiratory Effort Blood Pressure 99/65 95/55 L 96/56 L Blood Pressure Mean 77 68 69 Pulse Ox 97 97 Oxygen Delivery Method Oxygen Flow Rate (L/min) 01/07/25 18:45 01/07/25 19:00 01/07/25 19:15 Temperature Temperature Source Pulse Rate Respiratory Rate Respiratory Effort Blood Pressure 89/58 L 97/60 88/58 L Blood Pressure Mean 69 71 69 Pulse Ox 96 Oxygen Delivery Method Oxygen Flow Rate (L/min) 01/07/25 19:36 01/07/25 19:45 01/07/25 20:00 Temperature Temperature Source Pulse Rate 61 55 L Respiratory Rate 22 H 27 H Respiratory Effort Blood Pressure Blood Pressure Mean Pulse Ox 93 91 Oxygen Delivery Method Oxygen Flow Rate (L/min) Positive well nourished and well developed; Negative for cachectic, contractures or unkempt General Appearance ED: well developed and NAD; Negative for unkempt, cachectic, contractures or pallor Nutritional Appearance: Negative for cachectic HEENT Reports moist mucous membranes normocephalic and atraumatic Eyes PERRL and EOMs intact bilaterally Neck no lymphadenopathy, supple and no JVD Chest Wall inspection of chest normal and palpation of chest normal Resp normal respiratory effort and clear to auscultation bilaterally Auscultation: Negative for rales, rhonchi or wheezes Cardio regular rhythm, S1 normal heart sound and no murmurs; Negative for regular rate Rate: bradycardia Peripheral Pulses: pulses 2+ throughout GI normal to inspection, nondistended, normoactive bowel sounds, soft to palpation, non-tender, non-distended and no masses Back/Spine no CVA tenderness and no thoracic nor lumbar tenderness Extremity normal to inspection General Extremety ED: Negative for edema, pulses abnormal or tenderness General Extremity: Negative for edema or pulses abnormal Neuro oriented x3 and CN's II-XII intact bilaterally Sensorium / Orientation: awake, alert, oriented to person, oriented to place and oriented to time; Negative for confused or lethargic Motor Exam: strength 5/5 throughout Psych mental status grossly normal Appearance: Negative for unkempt Attitude: No agitated Mood & Affect: anxious; Negative for depressed or tearful Skin no rashes or lesions noted and no wounds General Skin Exam: Negative for jaundice or pallor Rashes: No rashes noted Trauma: Negative for abrasion or laceration MDM MDM MDM Narrative Medical decision making narrative: 69-year-old female shortness of breath recent hospitalization in PE versus cardiac etiology versus pneumonia versus CHF. Cardiac workup with CTA OB obtained. Repeat exam patient is resting comfortably at 10 PM. She will be given [place] for pain she was initially given morphine. Most of this her labs are consistent with chronic changes cardiomyopathy. She has had much higher troponins in the past. She has had elevated BNP's around 8000 before. However she continues to be hypoxic. She is not on oxygen at home. I am speak to our hospitalist about admitting her to determine if she needs home oxygen. But I think most of this is chronic. She does have a history of smoking for 47 years. History & Record Review Discussion w/independent historian: Patient and Family Additional record(s) reviewed:: Prior inpatient record, Prior outpatient record, Prior ED visit and Prior labs Lab Data Attestation: I reviewed the patient's lab results. Lab results narrative: CBC shows a white count 8.7. H&H 12 and 37. Platelets 254. Chemistries show gap 15. BUN and creatinine 26 2.51. Glucose 119. Initial troponin 350. 2-hour troponin 274. 4-hour troponin 313. BNP 10,829. Labs: Laboratory Results - last 24 hr 01/07/25 01/07/25 01/07/25 14:32 16:32 19:25 WBC 8.7 RBC 3.99 L Hgb 12.5 Hct 37.9 MCV 95.0 MCH 31.3 MCHC 33.0 RDW Std Deviation 52.1 H RDW Coeff of Luis 14.9 H Plt Count 254 MPV 11.0 Immature Gran % (Auto) 0.500 Neut % (Auto) 59.3 Lymph % (Auto) 25.7 [place] % (Auto) 7.7 Eos % (Auto) 5.9 H Baso % (Auto) 0.9 Absolute Neuts (auto) 5.2 Absolute Lymphs (auto) 2.25 Nucleated RBC % 0 Sodium 139 Potassium 4.5 Chloride 104 Carbon Dioxide 20.2 L Anion Gap 15 BUN 26 H Creatinine 2.51 H Estim Creat Clear Calc 16.74 L Est GFR (MDRD) Non-Af 20 L BUN/Creatinine Ratio 10.4 Glucose 119 H Calcium 8.6 Troponin T High Sens 350 H* D Troponin T Hi Sens 2 Hr 274 H* Troponin T Hi Sens 4Hr 313 [place]* [place] [address] H Radiography Chest X-Ray - ED: 1 View, Lungs, Bony Structures, Chronic Changes, Cardiomegaly and CHF Diagnostic Testing: Clinical Impression(s) from Imaging Studies Chest X-Ray 01/07/25 15:05 IMPRESSION: Cardiomegaly and mild CHF. Blunting of the left costophrenic angle. Reading Location: [facility] Chest CTA 01/07/25 15:17 IMPRESSION: No acute pulmonary emboli. No focal consolidations. Mild pulmonary edema. Moderate pulmonary emphysema. Mild bibasilar pleural effusions. Agby-mg-demaccyy cardiomegaly and trace pericardial effusion. Reading Location: [facility] Chest x-ray, portable, single view interpreted both by myself and the radiologist. Shows cardiomegaly. Mild pulmonary edema/CHF. Left-sided pacemaker defibrillator. No pneumonia. No large effusions. Rhythm Strip Rhythm Strip: Sinus bradycardia Rate: 55 Ectopy: None EKG Initial EKG: Attestation: I personally reviewed and interpreted this EKG as follows: Interpretation: No Acute Injury Pattern and Sinus Bradycardia Comments: Sinus bradycardia rate of 55 no acute signs of AR or ischemia. Prior EKG tracings: available for review Prior: Unchanged Discharge Plan Dx/Rx/DC Orders Clinical Impression: Hypoxia, Chronic kidney disease, COPD (chronic obstructive pulmonary disease), History of CAD (coronary artery disease), Hx of heart artery stent, Cardiomyopathy Disposition Disposition: Acute Care [facility]
[2025-01-07 15:25] LABS: Hematocrit 37.9 % (37-47); Hemoglobin 12.5 g/dL (12.0-15.0); Immature Granulocytes Count 0.040 X10^3/uL (0.0-0.0); Mean Corp Hgb Conc 33.0 g/dL (32-36); Mean Corpuscular Volume 95.0 fL (81-99); Mean Platelet Vol. 11.0 fl (6.2-12.0); NRBC Flagged by Analyzer 0 % (0-5); Platelet Count 254 K/mm3 (150-450); RBC Distribution Width CV 14.9 % (11.6-14.6); RBC Distribution Width SD 52.1 fl (35.1-43.9); Red Blood Count 3.99 M/mm3 (4.2-5.4); White Blood Count 8.7 K/mm3 (4.4-11.0)
[2025-01-07] MEDS: fentaNYL 100 MCG/2 ML Ampul 50 MCG IV (15:29)
[2025-01-07 16:03] LABS: Anion Gap 15 (5-15); BUN 26 mg/dL (4-19); BUN/Creat Ratio 10.4 RATIO (10-20); Calcium,Total 8.6 mg/dL (7.6-11.0); Carbon Dioxide 20.2 mmol/L (21.0-32.0); Chloride 104 mmol/L (98-108); Estimated Creatinine Clearance 16.74 ml/min (50-250); Glucose 119 mg/dL (70-99); Potassium 4.5 mmol/L (3.3-5.1)
[2025-01-07 16:09] LABS: Troponin T High Sensitivity 350 ng/L (<=14)
[2025-01-07 16:31] LABS: Pro- Brain NATRIURETIC PEPTIDE 10829 pg/mL (<=900)
[2025-01-07 17:35] LABS: Troponin T High Sens 2 HR 274 ng/L (<=14)
[2025-01-07 20:42] LABS: Troponin T High Sens 4 HR 313 ng/L (<=14)
--- NOTE | 2025-01-07 21:52 | ED.RN ---
when this rn goes in to round on pt, pt sits straight up in bed and states this is fucking bullshit. i have been here for six fucking hours. i haven't eaten or drank anything. fuck this. this rn reiterates the fact that with cardiac issues we draw an initial blood draw, another one 2 hours later and then 4 hours later. pt was also informed that there was multiple critical patients that required both of our ED physicians so we are running behind. pt ignores this rn and lays back down. this rn updates dr newsome.
[2025-01-07] MEDS: HYDROcodone Bitartrate/Apap 5/325 Tablet PO (22:31)
--- NOTE | 2025-01-07 23:03 | PCM.HP.STD ---
HPI - General General Date of Admission: 01/07/25 Date of Service: 01/07/25 Chief Complaint: Shortness of breath and right shoulder discomfort HPI Narrative MAUREEN ROCK, is a 69 F who presented to [facility] ED on 01/07/2025 with shortness of breath and right shoulder discomfort. Patient has recent complex medical history; [facility] She was hospitalized here from 12/11-12/13 for acute hypoxic respiratory failure secondary to new onset acute HFrEF and NSTEMI. Echo showed EF 45%, severe inferior, basal to mid posterior and basal to mid lateral hypokinesis, severe MR and stage II diastolic dysfunction. Left heart cath on 12/13 showed 80% proximal RCA and 95% distal RCA lesion with thrombosis. Given this finding, patient was transferred to [facility] for surgical evaluation versus high risk PCI and MitraClip. Patient was hospitalized there from 12/13-01/04. Cardiovascular surgery evaluated there and noted patient was a high surgical risk and recommended PCI. Patient had successful PCI with placement of 3 drug-eluting stents to the RCA on 01/02. Importantly, her hospitalization was complicated by a V. tach arrest on 12/19 requiring transfer to the CICU for antiarrhythmic therapy with amiodarone and lidocaine. She stabilized but then had another episode of VT and was treated with amiodarone drip with transition to p.o. amiodarone. ICD was placed on 01/03. Hospitalization was also complicated by REJI on CKD, and creatinine was 2.22 on the day of discharge with baseline around 1.5. Patient was eventually discharged home on 01/04 with new medications of amiodarone, Plavix, Jardiance, Toprol, hydralazine, torsemide and hydroxyzine. Patient states over the past 2 days now she has had worsening shortness of breath and worsening right shoulder pain, so she came in for further evaluation. In the ED vitals notable for BP in the 90s over 50s, sinus bradycardia around 55 to 60 bpm and oxygen saturation 86 to 88% on room air at rest. Labs notable for creatinine 2.51, NT proBNP 88205. CTA chest showed no PE, did show mild pulmonary edema with mild bibasilar pleural effusions and moderate pulmonary emphysema. Given her hypoxia and mild volume overload, hospitalist was contacted for admission. I saw the patient at bedside in the ED, sister was present. Patient was sitting back in bed fairly comfortably and in no acute distress. She was reporting ongoing right shoulder pain but this was improved earlier this evening after she was given a dose of IV pain medication. She reported some orthopnea over the past few days but currently denies any shortness of breath while sitting up. She denied any other acute concerns currently. Will be admitted for further management. HOSPITAL COURSE: Maureen Rock is a 69 year old female with PMH of hypertension, L ICA occlusion s/p CEA, known R ICA occlusion, cerebral aneurysm s/p repair 2018, PAD (R VINCE 0.64, L VINCE 0.69), HLD, hypothyroidism, polysubstance abuse who presented to OSH with dyspnea, found to have NSTEMI and new onset heart failure with reduced ejection fraction. She was transferred to [facility] for surgical evaluation vs high-risk PCI and MitraClip. #HFrEF #Ischemic cardiomyopathy #NSTEMI #Severe mitral regurgitation Upon arrival, the patient was diagnosed with acute decompensated heart failure with a BNP of 4,000 and elevated hST >1900. An echo demonstrated reduced LVEF to 37% and newly diagnosed severe MR. edical therapy for HFrEF was also initiated and she is discharged on metoprolol succinate, Jardiance, and torsemide. Hydralazine is used for afterload reduction and ARNI/ACEi/ARB were held due to a cardiorenal REJI but would consider Entresto outpatient. Cardiothoracic surgery was consulted. Given the patient's high surgical risk (STS score 20.7), absence of viable revascularization targets, and complex anatomy, surgery was deferred in favor of a percutaneous mitral valve strategy. . She successfully underwent PCI with placement of 3 drug-eluting stents to the RCA on 01/02. Patient to remain on Aspirin and Plavix for 12 months. Her hospitalization was further complicated by flash pulmonary edema, requiring escalation of diuretics. #Sustained VT Her stay was complicated by a ventricular tachycardia arrest on 12/19, requiring transfer to the CICU for antiarrhythmic therapy with amiodarone and lidocaine. She stabilized in sinus rhythm. She had another episode of VT for which she was started on an amiodarone drip and now remains on amiodarone orally. She had an ICD placed on 01/03 and should follow with electrophysiology #PAD Patient with significant bilateral disease with claudication. Vascular surgery recommended continued medical management and to follow up outpatient (Dr. Byrne). #REJI on CKD Patient with a cardiorenal REJI with subsequent improvement following diuresis. Patient is discharged on Torsemide 20 mg daily. Her creatinine at time of discharge is 2.22 and she should have renal function checked in 1-2 weeks. #Paranoid delusions #Hx of polysubstance abuse Psychiatry saw patient and recommended Remeron 15mg at bedtime and Atarax 10mg every 6 hours as needed.Patient provided recommendations for outpatient therapy. START TAKING: Amiodarone 200 mg daily Plavix 75 mg daily for 12 months Jardiance 10 mg daily Metoprolol succinate 12.5 mg daily Hydralazine 10 mg three times daily Torsemide 20 mg daily Hydroxyzine 10 mg as needed for anxiety [facility] Medical History Smoking 1/2 pack a day or less Peripheral vascular disease Congestive heart failure Carpal tunnel syndrome on right Closed displaced bicondylar fracture of left tibia with routine healing CKD (chronic kidney disease) Cannabis use disorder HLD (hyperlipidemia) Tobacco use Carotid arterial disease Hypertension Home Medications ?Medication ?Instructions ?Recorded ?Last Taken ?Type amiodarone 200 mg tablet 200 mg PO DAILY 01/07/25 01/07/25 History aspirin 81 mg tablet,delayed 81 mg PO DAILY 01/07/25 01/07/25 History release (Adult Aspirin Regimen) atorvastatin 80 mg tablet 80 mg PO DAILY 01/07/25 01/06/25 History clopidogrel 75 mg tablet 75 mg PO DAILY 01/07/25 01/07/25 History empagliflozin 10 mg tablet 10 mg PO DAILY 01/07/25 01/07/25 History (Jardiance) hydralazine 10 mg tablet 20 mg PO Q8H 01/07/25 01/07/25 History hydroxyzine HCl 10 mg tablet 10 mg PO Q6H PRN 01/07/25 Unknown History ibandronate 150 mg tablet 150 mg PO QMONTH 01/07/25 Unknown History levothyroxine 100 mcg tablet 100 mcg PO DAILY 01/07/25 01/07/25 History (Synthroid) metoprolol succinate 25 mg 12.5 mg PO DAILY 01/07/25 01/07/25 History tablet,extended release 24 hr torsemide 20 mg tablet 20 mg PO DAILY 01/07/25 01/07/25 History Allergy/AdvReac Type Severity Reaction Status Date / Time No Known Allergies Allergy Verified 12/10/24 23:26 Family History Mother , 89 Hypertension Pulmonary fibrosis Heart disease Glaucoma Father , 80 Hypertension Heart disease Diabetes Surgical History History of CEA (carotid endarterectomy) History of hip surgery Social History household members: family current occupational status: retired pets and animals: No Smoking Status: Former smoker alcohol intake: never substance use type: marijuana caffeine: Yes Type: coffee Number of servings: 1 do you feel safe at home: Yes ROS Constitutional Constitutional: Reports fatigue; Denies chills, fever(s) or weakness Eyes Eyes: Denies change in vision Cardiovascular Cardiovascular: Reports dyspnea on exertion and orthopnea; Denies chest pain, edema, lightheadedness or palpitations Respiratory/Chest Respiratory/Chest: Reports shortness of breath with exertion; Denies cough, shortness of breath at rest or wheezing Gastrointestinal Gastrointestinal: Denies abdominal pain Genitourinary Genitourinary: Denies dysuria Musculoskeletal Musculoskeletal: Denies arthralgias or myalgias Neurologic Neurologic: Denies dizziness, focal weakness or headache(s) Vital Signs Vital Signs Vital Signs: 01/07/25 14:43 01/07/25 14:47 01/07/25 14:56 Temperature 98.1 F Temperature Source Oral Pulse Rate 56 L Respiratory Rate 16 Respiratory Effort Short of Breath Blood Pressure 94/67 Blood Pressure Mean 76 Pulse Ox 93 87 Oxygen Delivery Method Room Air Room Air Oxygen Flow Rate (L/min) 01/07/25 15:05 01/07/25 15:43 01/07/25 15:47 Temperature Temperature Source Pulse Rate 51 L 51 L Respiratory Rate 17 17 Respiratory Effort Blood Pressure 96/49 L Blood Pressure Mean 64 Pulse Ox 95 93 93 Oxygen Delivery Method Nasal Cannula Room Air Oxygen Flow Rate (L/min) 2 01/07/25 16:00 01/07/25 16:00 01/07/25 16:15 Temperature Temperature Source Pulse Rate 56 L 51 L Respiratory Rate 16 19 H Respiratory Effort Blood Pressure 90/43 L 90/43 L 110/76 Blood Pressure Mean 58 57 87 Pulse Ox 95 92 Oxygen Delivery Method Nasal Cannula Oxygen Flow Rate (L/min) 01/07/25 16:15 01/07/25 16:30 01/07/25 16:45 Temperature Temperature Source Pulse Rate 54 L 58 L Respiratory Rate 14 26 H Respiratory Effort Blood Pressure 110/76 142/66 H 151/130 H Blood Pressure Mean 87 86 139 Pulse Ox 93 88 Oxygen Delivery Method Oxygen Flow Rate (L/min) 01/07/25 17:00 01/07/25 17:00 01/07/25 17:11 Temperature Temperature Source Pulse Rate 58 L 55 L 54 L Respiratory Rate 17 13 21 H Respiratory Effort Blood Pressure 94/64 94/54 L Blood Pressure Mean 74 66 Pulse Ox 94 98 96 Oxygen Delivery Method Nasal Cannula Oxygen Flow Rate (L/min) 3 01/07/25 17:15 01/07/25 17:30 01/07/25 17:45 Temperature Temperature Source Pulse Rate 53 L 51 L 53 L Respiratory Rate 19 H 26 H 24 H Respiratory Effort Blood Pressure 92/53 L 92/54 L 98/61 Blood Pressure Mean 66 65 73 Pulse Ox 94 96 96 Oxygen Delivery Method Oxygen Flow Rate (L/min) 01/07/25 18:00 01/07/25 18:15 01/07/25 18:30 Temperature Temperature Source Pulse Rate 54 L Respiratory Rate 16 Respiratory Effort Blood Pressure 99/65 95/55 L 96/56 L Blood Pressure Mean 77 68 69 Pulse Ox 97 97 Oxygen Delivery Method Oxygen Flow Rate (L/min) 01/07/25 18:45 01/07/25 19:00 01/07/25 19:15 Temperature Temperature Source Pulse Rate Respiratory Rate Respiratory Effort Blood Pressure 89/58 L 97/60 88/58 L Blood Pressure Mean 69 71 69 Pulse Ox 96 Oxygen Delivery Method Oxygen Flow Rate (L/min) 01/07/25 19:36 01/07/25 19:45 01/07/25 20:00 Temperature Temperature Source Pulse Rate 61 55 L Respiratory Rate 22 H 27 H Respiratory Effort Blood Pressure Blood Pressure Mean Pulse Ox 93 91 Oxygen Delivery Method Oxygen Flow Rate (L/min) 01/07/25 20:15 01/07/25 20:30 01/07/25 20:45 Temperature Temperature Source Pulse Rate 52 L 51 L 51 L Respiratory Rate 23 H 20 H 20 H Respiratory Effort Blood Pressure Blood Pressure Mean Pulse Ox 92 93 94 Oxygen Delivery Method Oxygen Flow Rate (L/min) 01/07/25 21:00 01/07/25 21:15 01/07/25 21:30 Temperature Temperature Source Pulse Rate 53 L 54 L 54 L Respiratory Rate 19 H 16 20 H Respiratory Effort Blood Pressure Blood Pressure Mean Pulse Ox 95 96 86 Oxygen Delivery Method Oxygen Flow Rate (L/min) 01/07/25 22:09 01/07/25 22:10 01/07/25 22:15 Temperature Temperature Source Pulse Rate 61 Respiratory Rate 13 22 H Respiratory Effort Blood Pressure 158/130 H Blood Pressure Mean 141 Pulse Ox 89 Oxygen Delivery Method Oxygen Flow Rate (L/min) 01/07/25 22:16 01/07/25 22:42 Temperature 98.6 F Temperature Source Pulse Rate 61 61 Respiratory Rate 19 H 19 H Respiratory Effort Blood Pressure 96/84 H 96/84 H Blood Pressure Mean 89 88 Pulse Ox 89 89 Oxygen Delivery Method Oxygen Flow Rate (L/min) Weight Weight: 55.3 kg Body Mass Index (BMI) 23.8 Physical Exam Const alert, oriented x3, no apparent distress and average body habitus Constitutional Narrative: Elderly female, fatigued appearing, otherwise sitting back fairly comfortably in bed, answering questions appropriately, in no acute distress. General Appearance: cooperative and comfortable HEENT normocephalic, head/scalp atraumatic, hearing grossly normal bilaterally, nasal mucous membranes and turbinates normal and moist oral mucous membranes Eyes PERRL, EOMs intact bilaterally and conjunctivae normal Neck full ROM Chest inspection of chest normal Resp normal respiratory effort and no use of accessory muscles Resp Narrative: Breathing comfortably on 2 L nasal cannula at rest. Mildly diminished breath sounds noted bilaterally with basilar crackles noted, no wheezing noted. Cardio regular rate, regular rhythm and peripheral pulses 2+ throughout Cardio Narrative: Systolic murmur noted at apex. GI normal to inspection, nondistended, normoactive bowel sounds, soft to palpation, non-tender and non-distended Back/Spine normal ROM Extremity normal to inspection, full ROM and no pedal edema Extremity Narrative: Reproducible pain on palpation noted in right shoulder. Skin no rashes or lesions noted Psych mental status grossly normal Mood & Affect: anxious Results Lab / Micro Data 01/07/25 14:32 01/07/25 14:32 Labs: Laboratory Results - last 24 hr 01/07/25 14:32: WBC 8.7, RBC 3.99 L, Hgb 12.5, Hct 37.9, MCV 95.0, MCH 31.3, MCHC 33.0, RDW Std Deviation 52.1 H, RDW Coeff of Luis 14.9 H, Plt Count 254, MPV 11.0, Immature Gran % (Auto) 0.500, Neut % (Auto) 59.3, Lymph % (Auto) 25.7, [place] % (Auto) 7.7, Eos % (Auto) 5.9 H, Baso % (Auto) 0.9, Absolute Neuts (auto) 5.2, Absolute Lymphs (auto) 2.25, Nucleated RBC % 0, Sodium 139, Potassium 4.5, Chloride 104, Carbon Dioxide 20.2 L, Anion Gap 15, BUN 26 H, Creatinine 2.51 H, Estim Creat Clear Calc 16.74 L, Est GFR (MDRD) Non-Af 20 L, BUN/Creatinine Ratio 10.4, Glucose 119 H, Calcium 8.6, Troponin T High Sens 350 H* D, [place] [id number] H 01/07/25 16:32: Troponin T Hi Sens 2 Hr 274 H* 01/07/25 19:25: Troponin T Hi Sens 4Hr 313 H* Rhythm Strip Rhythm Strip: Sinus bradycardia Rate: 55 Ectopy: None Imaging Radiology Impression Chest X-Ray 01/07/25 15:05 IMPRESSION: Cardiomegaly and mild CHF. Blunting of the left costophrenic angle. Reading Location: [facility]-IR-1 Chest CTA 01/07/25 15:17 IMPRESSION: No acute pulmonary emboli. No focal consolidations. Mild pulmonary edema. Moderate pulmonary emphysema. Mild bibasilar pleural effusions. [id number] cardiomegaly and trace pericardial effusion. Reading Location: [facility] Assessment & Plan Assessment/Plan (1) Hypoxia: (2) CHF exacerbation: QUALIFIERS: Heart failure type: systolic Qualified Code(s): I50.23 - Acute on chronic systolic (congestive) heart failure PLAN: Plan Patient is a 69-year-old female who presented to [facility] ED on 01/07/2025 with shortness of breath and right shoulder discomfort. 1. Acute hypoxia ? Admit under inpatient status to PCU. Hypoxic to the mid 80s on room air at rest on admit. Suspect multifactorial from fluid overload from acute on chronic HFrEF and underlying COPD with emphysema. Treatment as below. Wean supplemental oxygen as able. 2. Acute on chronic HFrEF with severe mitral regurgitation, recent NSTEMI and CAD s/p stenting, recent V. tach arrest s/p ICD placement, hypertension, hyperlipidemia ? Patient with recent complex hospitalization primarily at [facility], see HPI for further details. In short, recent echo showed EF 45%, severe inferior, basal to mid posterior and basal to mid lateral hypokinesis, severe MR and stage II diastolic dysfunction. Left heart cath on 12/13 showed 80% proximal RCA and 95% distal RCA lesion with thrombosis. S/p MYRNA x 3 to RCA on 01/02. Had V. tach arrest on 12/19 and subsequent V. tach episode after that. ICD placed on 01/03. Plan per [facility] cardiology is for optimal medical management for 2 months followed by reevaluation for need for MitraClip procedure for severe mitral regurgitation. Presentation here consistent with mild CHF exacerbation given elevated BNP greater than 10,000 and mild pulmonary edema with small pleural effusions. Suspect this is primarily due to under diuresis in setting of severe MR. Will treat with IV Lasix 40 mg twice daily. Monitor daily BMP and urine output. Suspect patient will need increased dosing of diuretic on discharge. Continue home aspirin, Plavix, amiodarone, Jardiance, hydralazine, Toprol and statin. 3. REJI on CKD stage IIIb ? Creatinine 2.51 on admit. Baseline appears to be around 1.5. Notably creatinine 2.22 on discharge from [facility] on 01/04. Suspect secondary to cardiorenal syndrome. Treating with IV Lasix as above. Monitor daily BMP and urine output. 4. COPD with emphysema ? Patient with longstanding smoking history and is a current smoker as below. CTA chest on admit showed moderate emphysematous changes. Good air movement bilaterally with no wheezing noted, low concern for COPD exacerbation. Continue home inhalers. 5. Mood disorder with paranoid delusions ? Documented during recent hospitalization at [facility]. Started on hydroxyzine every 6 hours as needed there with good response, will continue that while here. 6. Right shoulder pain ? Unclear etiology but suspect this may be referred pain in the setting of CHF exacerbation as above. Pain control with lidocaine patch for now. Avoid sedating medications as able. 7. Hypothyroidism ? Continue home Synthroid. 8. Tobacco use disorder ? Smokes about 1 pack per day of cigarettes. Nicotine patch ordered per patient request. Discussed cessation on discharge. DVT prophylaxis: Heparin subcu CODE STATUS: Full code, verified Expected disposition: TBD Total clinical time spent by myself addressing the patient's medical issues, reviewing all the data, and collaborating with patient's care team: 75 minutes. Charges/Coding Visit Charges Inpatient E&M: 92609 Init Hosp L3
[2025-01-08] VITALS (12 sets, daily range): BP systolic 96–115; BP diastolic 42–66; PULSE 51–58; RESP 18–20; TEMP 36.3–36.5; O2SAT 88–98
[2025-01-08] MEDS: Lidocaine 5% Patch 1 PATCH TOPICAL ×2 (00:44→13:14)
[2025-01-08] MEDS: 0.9% Saline Lock 10 ML Syringe IV ×2 (03:06→10:27)
[2025-01-08] MEDS: Heparin Injection (Vial) 5,000 UNIT/ML VIAL 5000 UNIT SC ×3 (05:53→21:08)
[2025-01-08 06:09] LABS: Hematocrit 36.3 % (37-47); Hemoglobin 11.7 g/dL (12.0-15.0); Mean Corp Hgb Conc 32.2 g/dL (32-36); Mean Corpuscular Volume 96.8 fL (81-99); Mean Platelet Vol. 11.1 fl (6.2-12.0); Platelet Count 243 K/mm3 (150-450); RBC Distribution Width CV 15.1 % (11.6-14.6); RBC Distribution Width SD 53.7 fl (35.1-43.9); Red Blood Count 3.75 M/mm3 (4.2-5.4); White Blood Count 8.7 K/mm3 (4.4-11.0)
[2025-01-08 06:33] LABS: Anion Gap 12 (5-15); BUN 27 mg/dL (4-19); BUN/Creat Ratio 10.8 RATIO (10-20); Calcium,Total 8.6 mg/dL (7.6-11.0); Carbon Dioxide 23.6 mmol/L (21.0-32.0); Chloride 102 mmol/L (98-108); Estimated Creatinine Clearance 15.72 ml/min (50-250); Glucose 120 mg/dL (70-99); Potassium 3.8 mmol/L (3.3-5.1)
--- NOTE | 2025-01-08 08:18 | PN.HOSP_ITS ---
Reason for Visit Reason for Visit: Diagnoses Acute on chronic systolic (congestive) heart failure (01/07/25) Hypoxemia (01/07/25) Subjective Subjective Complaining of pain in right upper back. Objective Data Objective Data Vital Signs: Vital Signs Temp Pulse Resp BP Pulse Ox O2 Del Method O2 Flow Rate 36.3 C L 51 L 18 108/63 93 Nasal Cannula 3 01/08/25 05:48 01/08/25 05:50 01/08/25 05:48 01/08/25 05:50 01/08/25 05:48 01/08/25 05:51 01/08/25 05:51 Oxygen Flow Rate (L/min) 3 Oxygen Delivery Method Nasal Cannula Weight: 53.5 kg Body Mass Index (BMI) 23.0 Intake & Output: Intake and Output for Last 24 Hours 01/06/25 01/07/25 01/08/25 23:59 23:59 23:59 Intake Total 0 / 0 220 / 220 Balance 0 / 0 220 / 220 Lab / Micro Data 01/08/25 05:24 01/08/25 05:24 Labs: Laboratory Results - last 24 hr 01/07/25 14:32: WBC 8.7, RBC 3.99 L, Hgb 12.5, Hct 37.9, MCV 95.0, MCH 31.3, MCHC 33.0, RDW Std Deviation 52.1 H, RDW Coeff of Luis 14.9 H, Plt Count 254, MPV 11.0, Immature Gran % (Auto) 0.500, Neut % (Auto) 59.3, Lymph % (Auto) 25.7, [place] % (Auto) 7.7, Eos % (Auto) 5.9 H, Baso % (Auto) 0.9, Absolute Neuts (auto) 5.2, Absolute Lymphs (auto) 2.25, Nucleated RBC % 0, Sodium 139, Potassium 4.5, Chloride 104, Carbon Dioxide 20.2 L, Anion Gap 15, BUN 26 H, Creatinine 2.51 H, Estim Creat Clear Calc 16.74 L, Est GFR (MDRD) Non-Af 20 L, BUN/Creatinine Ratio 10.4, Glucose 119 H, Calcium 8.6, Troponin T High Sens 350 H* D, [place] [id number] H 01/07/25 16:32: Troponin T Hi Sens 2 Hr 274 H* 01/07/25 19:25: Troponin T Hi Sens 4Hr 313 H* 01/08/25 05:24: WBC 8.7, RBC 3.75 L, Hgb 11.7 L, Hct 36.3 L, MCV 96.8, MCH 31.2, MCHC 32.2, RDW Std Deviation 53.7 H, RDW Coeff of Luis 15.1 H, Plt Count 243, MPV 11.1, Sodium 138, Potassium 3.8, Chloride 102, Carbon Dioxide 23.6, Anion Gap 12, BUN 27 H, Creatinine 2.46 H, Estim Creat Clear Calc 15.72 L, Est GFR (MDRD) Non-Af 21 L, BUN/Creatinine Ratio 10.8, Glucose 120 H, Calcium 8.6 Radiography Diagnostic Testing: Radiology Impression Chest X-Ray 01/07/25 15:05 IMPRESSION: Cardiomegaly and mild CHF. Blunting of the left costophrenic angle. [facility] Chest CTA 01/07/25 15:17 IMPRESSION: No acute pulmonary emboli. No focal consolidations. Mild pulmonary edema. Moderate pulmonary emphysema. Mild bibasilar pleural effusions. [id number] cardiomegaly and trace pericardial effusion. Reading Location: [facility] Rhythm Strip Rhythm Strip: Sinus bradycardia Rate: 55 Ectopy: None Physical Exam Const alert and no apparent distress Constitutional Narrative: anxious. afebrile. no respiratory distress. no conversational dyspnea. HEENT head/scalp atraumatic and moist oral mucous membranes Resp normal respiratory effort, no retractions, no use of accessory muscles and clear to auscultation bilaterally Cardio regular rate, regular rhythm, S1 normal heart sound and S2 normal heart sound GI normal to inspection, nondistended, normoactive bowel sounds, soft to palpation, non-tender, non-distended and hepatosplenomegaly Extremity normal to inspection, full ROM and no clubbing, cyanosis or edema Extremity Narrative: reproducible upper right back pain. Neuro Sensorium / Orientation: awake, alert, oriented to person, oriented to place and oriented to time Assessment & Plan Assessment/Plan (1) HFrEF (heart failure with reduced ejection fraction): PLAN: EF 45% from echo on 12/11. Complicated by severe MR. CTA chest with mild pulmonary vascular congestion and pleural effusion Continue IV furosemide Continue metoprolol succinate 12.5/d, hydralazine 10/TID, empagliflozin 10/d No ACEi/ARB given REJI. (2) REJI (acute kidney injury): PLAN: Up from 1.51 from last month, discharged with Cr of 2.22. Admitted with creatinine 2.51, down slightly to 2.46. [place] to be cardiorenal syndrome. (3) Elevated troponin: PLAN: Likely type 2, demand ischemia from CHF exacerbation; but also skewed given REJI. (4) Back pain: PLAN: reviewed EMG/NCT test with the patient. She had right carpal tunnel. MRI cspine showed spondylolisthesis. No cord impingement. Therefore, I do not feel it is neurologic. On exam it is more consistent with muscloskeletal, either costochondritis v muscle strain. Plan: schedule acetaminophen, cyclobenzaprine, lidoderm patch. Reassurance provided. PLAN: Plan CAD: recent PCI to RCA x3 on 01/02. Continue clopidogrel, HIS, ASA. VT arrest: s/p AICD. continue amiodarone hypothyoidism: levothyroxine Paranoia: seen by psych at [facility]. follow up with psych as oupt. COPD: noted on CT. Recommend outpt follow up with pulmonary for formal testing. PAD: significant bilateral disease with claudication. Seen by Vascular surgery at [facility] and recommended med mgmt with outpt follow up with Dr. Byrne. VTE prophylaxis: SQ heparin. Greater than 55 minutes of which most the time was direct patient care, discussing with her about her heart failure, reviewing her records including EMG/nerve conduction test as well as MRI. Charges/Coding Visit Charges Inpatient E&M: 82605 Subs Hosp L3
[2025-01-08] MEDS: Aspirin E.C. 81 MG Tablet PO (10:20)
[2025-01-08] MEDS: Ensure Plus High Protein 120 ML LIQUID PO ×2 (13:25→17:10)
[2025-01-09] VITALS (11 sets, daily range): BP systolic 93–143; BP diastolic 51–73; PULSE 53–67; RESP 18; TEMP 36.4–36.6; O2SAT 90–96
[2025-01-09] MEDS: Heparin Injection (Vial) 5,000 UNIT/ML VIAL 5000 UNIT SC ×3 (05:05→22:44)
--- NOTE | 2025-01-09 08:29 | PCM.PN.HOSP ---
Reason for Visit Reason for Visit: Diagnoses Unspecified systolic (congestive) heart failure (01/07/25) Acute on chronic systolic (congestive) heart failure (01/07/25) Dorsalgia, unspecified (01/07/25) Acute kidney failure, unspecified (01/07/25) Hypoxemia (01/07/25) Other specified abnormal findings of blood chemistry (01/07/25) Subjective Subjective Anxious about going home. Requesting to speak with someone about where she could stay after discharge. Objective Data Objective Data Vital Signs: Vital Signs Temp Pulse Resp BP Pulse Ox O2 Del Method O2 Flow Rate 36.4 C L 67 18 143/73 H 90 Nasal Cannula 4 01/09/25 04:58 01/09/25 06:34 01/09/25 04:58 01/09/25 06:34 01/09/25 08:23 01/09/25 08:23 01/09/25 08:23 Oxygen Flow Rate (L/min) 4 Oxygen Delivery Method Nasal Cannula Weight: 53.5 kg Body Mass Index (BMI) 23.0 Intake & Output: Intake and Output for Last 24 Hours 01/07/25 01/08/25 01/09/25 23:59 23:59 23:59 Intake Total 0 / 0 700 / 700 Output Total 875 / 875 600 / 600 Balance 0 / 0 -175 / -175 -600 / -600 Lab / Micro Data 01/08/25 05:24 01/09/25 09:16 Rhythm Strip Rhythm Strip: Sinus bradycardia Rate: 55 Ectopy: None Physical Exam Const no apparent distress HEENT head/scalp atraumatic and moist oral mucous membranes Resp normal respiratory effort, no retractions, no use of accessory muscles and clear to auscultation bilaterally Cardio regular rate, regular rhythm, S1 normal heart sound and S2 normal heart sound GI normal to inspection, nondistended, normoactive bowel sounds, soft to palpation, non-tender and non-distended Assessment & Plan Assessment/Plan (1) HFrEF (heart failure with reduced ejection fraction): PLAN: EF 45% from echo on 12/11. Complicated by severe MR. CTA chest with mild pulmonary vascular congestion and pleural effusion Continue IV furosemide Continue metoprolol succinate 12.5/d, hydralazine 10/TID, empagliflozin 10/d No ACEi/ARB given REJI. (2) REJI (acute kidney injury): PLAN: Up from 1.51 from last month, discharged with Cr of 2.22. Admitted with creatinine 2.51, down to 2.19. Cubero to be cardiorenal syndrome. (3) Elevated troponin: PLAN: Likely type 2, demand ischemia from CHF exacerbation; but also skewed given REJI. (4) Back pain: PLAN: reviewed EMG/NCT test with the patient. She had right carpal tunnel. MRI cspine showed spondylolisthesis. No cord impingement. Therefore, I do not feel it is neurologic. On exam it is more consistent with muscloskeletal, either costochondritis v muscle strain. Plan: schedule acetaminophen, cyclobenzaprine, lidoderm patch. Reassurance provided. PLAN: Plan CAD: recent PCI to RCA x3 on 01/02. Continue clopidogrel, HIS, ASA. VT arrest: s/p AICD. continue amiodarone hypothyoidism: levothyroxine Paranoia: seen by psych at [facility]. follow up with psych as oupt. COPD: noted on CT. Recommend outpt follow up with pulmonary for formal testing. PAD: significant bilateral disease with claudication. Seen by Vascular surgery at [facility] and recommended med mgmt with outpt follow up with Dr. Byrne. VTE prophylaxis: SQ heparin. Charges/Coding Visit Charges Inpatient E&M: 13184 Subs Hosp L2
[2025-01-09] MEDS: Ensure Plus High Protein 120 ML LIQUID PO ×2 (10:01→17:36)
[2025-01-09] MEDS: Lidocaine 5% Patch 1 PATCH TOPICAL (10:02)
[2025-01-09] MEDS: Aspirin E.C. 81 MG Tablet PO (10:02)
[2025-01-09 10:34] LABS: Anion Gap 12 (5-15); BUN 31 mg/dL (4-19); BUN/Creat Ratio 14.2 RATIO (10-20); Calcium,Total 8.7 mg/dL (7.6-11.0); Carbon Dioxide 22.6 mmol/L (21.0-32.0); Chloride 102 mmol/L (98-108); Estimated Creatinine Clearance 17.66 ml/min (50-250); Glucose 140 mg/dL (70-99); Potassium 3.9 mmol/L (3.3-5.1)
--- NOTE | 2025-01-09 14:45 | CASEMGMT ---
TESHA SUBRAMANIAN Chart review: Patient was admitted 12/11-12/13/24 for Acute respiratory distress and CHF. See assessment from 12/11/24. Patient was transferred to [facility] and then to [facility]. Patient returned to [facility] ED on 01/07/25 for chest pain and was admitted for mild CHF exacerbation and hypoxia. TESHA SUBRAMANIAN in to discuss readmisison and discharge planning. Patient states that she was only home for one day but was taking her medications as prescribed. Patient states she has no scheduled appt with PCP. Patient is currently on oxygen, none at home, patient prefers [employer] for oxygen if needed. Patient states she is not home bound for [facility] but would be interested in [facility]. TESHA SUBRAMANIAN made referral. Patient states he would like resources for counseling and housing, SW aware and patient updated that SW will be coming to speak with patient. Patient denied further needs and had no further question. CM will continue to follow this patient and plan for a safe discharge.
--- NOTE | 2025-01-09 16:45 | CASEMGMT ---
Social Work SW met with pt and introduced self and role of SW. Pt remembers this worker from previous visits. Pt lives with her sister Leena and has been living with her since pt moved to [place] from [place] over a year ago. Pt is stating that she would like to find alternate housing at this time. SW spoke with pt regarding assisted living, but pt is not interested in this. SW inquired with pt about caring for herself and pt feels she will be able to care for herself and does not need assistance. SW provided pt with a list of apartment rentals and information on [place] housing. Pt is understanding that she will go home with her sister at time of discharge and will work on finding alternate housing. SW spoke with pt regarding mental health. Pt is not connected with a mental health provided. SW spoke with pt regarding Behavioral Health. Pt is agreeable to a referral to Behavioral Health but states she does not have transportation. SW educated to [facility]. SW will make referral. ALTON Madrigal
[2025-01-10] VITALS (17 sets, daily range): BP systolic 95–133; BP diastolic 50–63; PULSE 54–69; RESP 16–18; TEMP 36.2–36.9; O2SAT 93–100
--- OUTSIDE RECORDS SUMMARY | 2025-01-10 02:24 | XMS RPT_ITS | CCD ---
Author Organization [facility] Care Team Providers Care Rn Imcu Name Role Phone MARIANELA EDWARDS Attending Unavailable SHEETS, MARIANELA Perez Primary Care Unavailable SELF Referring Unavailable Sheets DOMarianela Primary Care Provider Sheets DO, Marianela Perez Primary Care Provider [phone] Sheets DO, Marianela Perez Unavailable [phone] Chapito PARKINSON, Ana Unavailable PIETER LEA Admitting Unavailable ALYSIA ELAM Referring Unavailable SHEETS, MARIANELA Perez Primary Care Unavailable DARBY PETERSON Attending Unavailable FIDENCIO ADORNO Referring Unavailable SHEETS, MARIANELA Perez Primary Care Unavailable PROVIDER, UNKNOWN Referring Unavailable SHEETS, MARIANELA Perez Primary Care Unavailable Care Physician, No Primary Primary Care Provider Unavailable Dr. Brayden Underwood MD Attending Provider Dr. Jaziel Lin DO Referring Provider Dr. Brayden Underwood MD Referring Provider Dr. Isaac Araujo DO Emergency Provider Grace CLAY, Dr. Bear Primary Care Provider [phone] Dr. Francis Bojorquez MD Attending Provider Maryellen BRICENO, Dr. Blanco Admit Provider Dr. Francis Bojorquez MD Other Provider Dr. Jean Paul Holt MD Other Provider [phone] Sukhi Forbes DO Attending Provider Geovanni BRICENO, Dr. Rachel Attending Provider Dr. Jean Paul Holt MD Attending Provider Dr. Sukhi Forbes DO Other Provider [phone] JEAN PAUL HOLT Referring Unavail able SHEETS, MARIANELA C Primary Care Unavailable LOGAN ALVARADO Admitting Unavailable GRIFFIN VAUGHAN Attending Unavailable FRANCES VASQUEZ Consulting Unavailab ALYSIA Becerril Attending Unavailable SHEETS, MARIANELA C Primary Care Unavailable BojorquezFrancis viera Admitting Unavailable Jean Paul Holt Consulting Unavailable Sheets, Marianela Primary Care Unavailable Jean Paul Holt Attending Unavailable BojorquezFrancis viera Consulting Unavailable Sukhi Forbes Consulting Unavailable Sukhi Forbes Attending Unavailable Care Physician, No Primary Primary Care Unava ilable Tere Brown Admitting Unavailable Spittle, Jaziel Consulting Unavailable Sergey, Isaias Attending Unavailable Tere Brown Consulting Unavailable Sergey, Isaias Consulting Unavailable Virginie Galarza Attending Unavailable Grace, Marianela Primary Care Unavailable Brayden Underwood Referring Unavailable Brayden Underwood Attending Unavailable Care Physician, No Primary Primary Care Unava ilable Spittle, Jaziel Referring Unavailable Riley, Jaziel Attending Unavailable Care Physician, No Primary Primary Care Unava ilable Sukhi Forbes Attending Unavailable Jean Paul Holt Consulting Unavailable Francis Bojorquez Admitting Unavailable Sheets, Marianela Primary Care Unavailable Maryellen, Francis Consulting Unavailable Care Physician, No Primary Primary Care Unava ilable Sukhi Forbes Attending Unavailable Tere Brown Admitting Unavailable Spittle, Jaziel Consulting Unavailable Tere Brown Consulting Unavailable Sergey, Isaias Consulting Unavailable Spittle, Jaziel Referring Unavailable Brayden Underwood Attending Unavailable Care Physician, No Primary Primary Care Unava ilable Sukhi Forbes Attending Unavailable Sukhi Forbes Consulting Unavailable BojorquezFrancis viera Attending Unavailable Sheets, Marianela Primary Care Unavailable Tere Brown Attending Unavailable Spittle, Jaziel Referring Unavailable Spittle, Jaziel Consulting Unavailable Hardeep Patrick Attending Unavailable Care Physician, No Primary Primary Care Unava ilable Mj PARKINSON, Sheba Casper Unavailable [phone] Melba [facility], Lanie Unavailable Unavail able SHEETS, MARIANELA C Referring Unavailable SHEETS, MARIANELA [...] C Primary Care Unavailable SHEETS, MARIANELA C Primary Care Unavailable ALYSIA FERRER Admitting Unavailable JAZIEL CASTRO Attending Unavailable ARGENIS NAGY Attending Unavailable SHEETS, MARIANELA C Referring Unavailable SHEETS, MARIANELA C Primary Care Unavailable NAGY, ARGENIS D Referring Unavailable SHEETS, MARIANELA C Primary Care Unavailable ARGENIS NAGY D Referring Unavailable SHEETS, MARIANELA C Primary Care Unavailable Herminio BRICENO, Dr. Nunn Emergency Provider Dr. Hamilton Mehta DO Admit Provider [phone] Dr. Hamilton Mehta DO Attending Provider Medications Current Medications Medication Drug Class(es) Dates Sig (Normalized) Sig (Original) amiodarone hydrochloride 200 mg oral tablet (6 sources) Antiarrhythmic Start: 01-05-2025 take 1 tablet by mouth once daily amiodarone (PACERONE) 200 mg tablet Take 1 tablet by mouth once daily. 90 tablet 01/05/2025 Active aspirin 81 mg delayed release oral tablet (20 sources) Platelet Aggregation Inhibitor, Nonsteroidal Anti-inflammatory Drug Start: 12-15-2024 take 1 tablet by mouth once daily aspirin, enteric coated (ASPIRIN, ENTERIC COATED) 81 mg EC tablet Take 1 tablet by mouth once daily. 12/15/2024 Active Start: 03-17-2024 End: 10-18-2024 Aspirin 81 mg capsule Discon tinued 81 mg PO TWICE DAILY WITH MEALS 30 0 March 17, 2024 10:56am October 18, 2024 10:05am blood thinner Continue twice daily until your immobilizer can be removed and then resume daily dosing. Start: 03-07-2024 End: 03-17-2024 take 1 capsule by mouth once daily Aspirin 81 mg capsule Discontinued 81 mg PO DAILY March 07, 2024 12:00am March 17, 2024 10:56am blood thinner aspirin, enteric coated (ASPIRIN, ENTERIC COATED) 81 mg EC tablet Take 162 mg by mouth once daily. Active atorvastatin 80 mg oral tablet (13 sources) HMG-CoA Reductase Inhibitor Start: 12-15-2024 End: 01-07-2025 take 1 tablet by mouth once daily at bedtime atorvastatin (LIPITOR) 80 mg tablet Take 1 tablet by mouth daily at bedtime. 90 tablet 01/07/2025 Active Start: 03-07-2024 End: 10-18-2024 take 1 tablet by mouth once daily Atorvastatin 80 mg tablet Discontinued 80 mg PO DAILY March 07, 2024 12:00am October 18, 2024 10:05am hld clopidogrel 75 mg oral tablet (6 sources) [id number] Platelet Inhibitor Start: 01-05-2025 take 1 tablet by mouth once daily clopidogrel (PLAVIX) 75 mg tablet Take 1 tablet by mouth once daily. 90 tablet 01/05/2025 Active empagliflozin 10 mg oral tablet (6 sources) Sodium-Glucose Cotransporter 2 Inhibitor Start: 01-05-2025 take 1 tablet by mouth once daily empagliflozin (JARDIANCE) 10 mg tablet Take 1 tablet by mouth once daily. 90 tablet 01/05/2025 Active hydrALAZINE hydrochloride 10 mg oral tablet (6 sources) Arteriolar Vasodilator Start: 01-04-2025 take 2 tablets by mouth every eight hours hydrALAZINE (APRESOLINE) 10 mg tablet Take 2 tablets by mouth every 8 hours. 270 tablet 01/04/2025 Active hydrOXYzine hydrochloride 10 mg oral tablet (6 sources) Antihistamine Start: 01-04-2025 take 1 tablet by mouth every six hours as needed hydrOXYzine HCl (ATARAX) 10 mg tablet Take 1 tablet by mouth every 6 hours as needed. 30 tablet 01/04/2025 Active ibandronic acid 150 mg oral tablet (15 sources) Bisphosphonate Start: 11-07-2024 take 1 tablet by mouth every month [...] provided with radiology test) (1 source) Start: 09-25-2024 End: 2024 inject 1 dose intravenously once [...] 1 Each 09/25/2024 2024 Active levothyroxine sodium 0.1 mg oral tablet (20 sources) l-Thyroxine Start: 12-16-2024 take 1 tablet by mouth once daily levothyroxine (SYNTHROID) 100 mcg tablet Take 1 tablet by mouth once daily. Patient should start on December 16, 2024. 90 tablet 12/16/2024 Active Start: 12-10-2024 End: 01-07-2025 take 1 tablet by mouth once daily Levothyroxine 112 mcg tablet Discontinued 112 ug PO DAILY December 10, 2024 12:00am January 07, 2025 2:49pm Start: 10-18-2024 End: 12-10-2024 take 1 tablet by mouth once daily Levothyroxine 125 mcg tablet Discontinued 125 ug PO daily October 18, 2024 12:00am December 10, 2024 11:39pm Start: 10-03-2024 take 1 tablet by fidelia th once daily levothyroxine (SYNTHROID) 112 mcg tablet [...] before breakfast. 30 tablet 1 07/24/2024 Active Start: 03-07-2024 End: 10-18-2024 take 1 tablet by mouth once daily Levothyroxine 100 mcg tablet Discontinued 100 ug PO DAILY March 07, 2024 12:00am October 18, 2024 9:54am thyroid End: 07-24-2024 take 1 capsule by mouth once daily before breakfast levothyroxine 100 mcg cap Take 100 mcg by mouth daily before breakfast. 07/24/2024 Discontinued 24 hr metoprolol succinate 25 mg extended release oral tablet (10 sources) beta-Adrenergic Shawn Start: 01-05-2025 take 0.5 tablet by mouth once daily metoprolol succinate ER (TOPROL XL) 25 mg 24 hr tablet Take 0.5 tablets by mouth once daily. 45 tablet 01/05/2025 Active Start: 12-15-2024 take 0.5 tablet by m outh every twelve hours metoprolol tartrate, short acting, (LOPRESSOR) 25 mg tablet Take 0.5 tablets by mouth every 12 hours. 90 tablet 12/15/2024 Suspended torsemide 20 mg oral tablet (6 sources) Loop Diuretic Start: 01-05-2025 take 1 tablet by mouth once daily torsemide (DEMADEX) 20 mg tablet Take 1 tablet by mouth once daily. 90 tablet 3 01/05/2025 Active Completed/Discontinued Medications Medication Drug Class(es) Dates Sig (Normalized) Sig (Original) acetaminophen 500 mg oral capsule (3 sources) Start: 03-17-2024 End: 12-10-2024 take 2 capsules by mouth every eight hours as needed for pain Acetaminophen 500 mg capsule Discontinued 1000 mg PO EVERY 8 HOURS NEEDED as needed for fever or pain 30 0 March 17, 2024 10:54am December 10, 2024 11:38pm amLODIPine 10 mg oral tablet (6 sources) Dihydropyridine Calcium Channel Shawn Start: 03-07-2024 End: 01-07-2025 take 1 tablet by mouth once daily Amlodipine 10 mg tablet Discontinued 10 mg PO DAILY March 07, 2024 12:00am January 07, 2025 2:59pm htn calcium citrate 950 mg oral tablet (3 sources) Start: 10-18-2024 End: 12-10-2024 take 1 tablet by mouth once daily Calcium Citrate 200 mg (950 mg) tablet Discontinued 200 mg PO daily October 18, 2024 12:00am December 10, 2024 11:37pm cilostazol 50 mg oral tablet (13 sources) Phosphodiesterase 3 Inhibitor Start: 09-25-2024 End: 01-07-2025 take 1 tablet by mouth twice daily Cilostazol 50 mg tablet Discontinued 50 mg PO TWICE A DAY October 18, 2024 12:00am January 07, 2025 2:50pm furosemide 40 mg oral tablet (4 sources) Loop Diuretic Start: 12-15-2024 take 1 tablet by mouth once daily furosemide (LASIX) 40 mg tablet Take 1 tablet by mouth once daily. 90 tablet 12/15/2024 Suspended Garlic (12 sources) Non-Standardized Food Allergenic Extract Start: 10-18-2024 End: 12-10-2024 take 1 tablet by mouth once daily Garlic 1250 mg tablet Discontinued 1250 mg PO daily October 18, 2024 12:00am December 10, 2024 11:38pm Garlic 1,500 mg cap Take 1,500 mg by mouth. Active lisinopril 10 mg oral tablet (3 sources) Angiotensin Converting Enzyme Inhibitor Start: 03-17-2024 End: 10-18-2024 take 1 tablet by mouth once daily Lisinopril 10 mg Tablet Discontinued 10 mg PO DAILY 30 0 March 17, 2024 12:00am October 18, 2024 10:07am melatonin 3 mg oral tablet (3 sources) Start: 03-12-2024 End: 10-18-2024 take 1 tablet by mouth at bedtime as needed Melatonin 3 mg Tablet Discontinued 3 mg PO AT BEDTIME NEEDED as needed for Insomnia 0 0 March 12, 2024 12:00am October 18, 2024 10:10am oxyCODONE hydrochloride 5 mg oral capsule (3 sources) Opioid Agonist Start: 03-17-2024 End: 10-18-2024 take 1 capsule by mouth every four hours as needed for pain Oxycodone 5 mg capsule Discontinued 5 mg PO Q4H as needed for pain 18 3 0 March 17, 2024 October 18, 2024 10:07am Fracture of proximal end of fibula Fracture of left tibial plateau Problems Active Problems Problem Classification Problem Date Documented Date Episodic/Chronic Acute myocardial infarction (20 sources) Myocardial infarction; Translations: [Myocardial infarction type 2] Onset: 12-13-2024 Resolved: 01-04-2025 12-11-2024 Chronic Cardiac dysrhythmias (4 sources) Atrial paroxysmal tachycardia; Translations: [Atrial paroxysmal tachycardia] 12-11-2024 Chronic Chronic kidney disease (1 source) Chronic kidney disease; Translations: [Chronic kidney disease, unspecified] 01-07-2025 Chronic Chronic obstructive pulmonary disease and bronchiectasis (1 source) Chronic obstructive lung disease; Translations: [Chronic obstructive pulmonary disease, unspecified] 01-07-2025 Chronic Coronary atherosclerosis and other heart disease (9 sources) Ischemic myocardial dysfunction; Translations: [Ischemic cardiomyopathy] Onset: 12-14-2024 12-15-2024 Chronic Diseases of white blood cells (20 sources) Leukocytosis; Translations: [Elevated white blood cell count, unspecified] Onset: 07-08-2024 07-08-2024 Chronic Disorders of lipid metabolism (20 sources) Mixed hyperlipidemia; Translations: [Mixed hyperlipidemia] Onset: 07-28-2024 07-28-2024 Chronic E Codes: Fall (4 sources) Fall; Translations: [Unspecified fall, initial encounter] Onset: 03-21-2024 03-25-2024 Episodic Essential hypertension (20 sources) Hypertensive disorder; Translations: [Essential (primary) hypertension] Onset: 07-08-2024 07-08-2024 Chronic Fracture of lower limb (9 sources) Displaced bicondylar fracture of left tibia, initial encounter for closed fracture; Translations: [Fracture of left tibial plateau] Onset: 03-21-2024 03-08-2024 Episodic Heart valve disorders (10 sources) Non-rheumatic mitral regurgitation ; Translations: [Nonrheumatic mitral (valve) insufficiency] Onset: 12-14-2024 12-18-2024 Chronic Hypertension with complications and secondary hypertension (20 sources) Hypertensive emergency; Translations: [Hypertensive emergency] Onset: 07-08-2024 07-08-2024 Chronic Nutritional deficiencies (5 sources) Deficiency of macronutrients; Translations: [Unspecified protein-calorie malnutrition] Onset: 12-30-2024 12-11-2024 Chronic Occlusion or stenosis of precerebral arteries (20 sources) Right carotid artery occlusion; Translations: [Occlusion and stenosis of right carotid artery] Onset: 07-08-2024 07-08-2024 Chronic Osteoporosis (1 source) Senile osteoporosis; Translations: [Age-related osteoporosis without current pathological fracture] 11-07-2024 Chronic Other circulatory disease (5 sources) Disorder of carotid artery; Translations: [Disorder of arteries and arterioles, unspecified] 12-11-2024 Chronic Other circulatory disease (1 source) H/O: heart disorder; Translations: [Personal history of other diseases of the circulatory system] 01-07-2025 Episodic Other lower respiratory disease (6 sources) Acute respiratory distress; Translations: [Acute respiratory distress] 12-11-2024 Episodic Other lower respiratory disease (2 sources) Dyspnea; Translations: [Shortness of breath] 12-19-2024 Episodic Other lower respiratory disease (1 source) Acute respiratory distress; Translations: [Acute respiratory distress] Onset: 12-30-2024 Episodic Other lower respiratory disease (1 source) Shortness of breath; Translations: [Shortness of breath] Onset: 12-30-2024 Episodic Other lower respiratory disease (1 source) Hypoxia; Translations: [Hypoxemia] 01-07-2025 Episodic Other nervous system disorders (6 sources) Carpal tunnel syndrome of right wrist; Translations: [Carpal tunnel syndrome, right upper limb] 10-18-2024 Chronic Comment on above: Presence of carpal t unnel noted. Patient had a positive EMG nerve conduction study with regard to carpal tunnel. Patient did have a positive Tinel's sign right hand only. Interesting to note that other nerves of right upper extremity were within normal limits. Patient does complain of pain in forearm which may be referred from carpal tunnel. Other nervous system disorders (2 sources) Carpal tunnel syndrome, right upper limb; Translations: [Carpal tunnel syndrome, right upper limb] Onset: 07-18-2024 Chronic Other nervous system disorders (6 sources) Tremor; Translations: [Tremor, unspecified] 10-18-2024 Episodic Comment on above: 2 years of tremor no isabel. 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 Other nervous system disorders (1 source) Tremor, [...] other metabolic disorders] Onset: 06-25-2024 06-25-2024 Episodic [place]-; endo-; and myocarditis; cardiomyopathy (except that caused by tuberculosis or sexually transmitted disease) (1 source) Cardiomyopathy; Translations: [Cardiomyopathy, unspecified] 01-07-2025 Chronic Peripheral and visceral atherosclerosis (20 sources) Peripheral vascular disease, unspecified; Translations: [Intermittent claudication] Onset: 06-25-2024 06-25-2024 Chronic Poisoning by other medications and drugs (4 sources) Poisoning 12-12-2024 Episodic Residual codes; unclassified (2 sources) Menopause present; Translations: [Asymptomatic menopausal state] 06-25-2024 Episodic Respiratory failure; insufficiency; arrest (adult) (6 sources) Acute respiratory failure; Translations: [Acute respiratory failure with hypoxia] Onset: 12-30-2024 12-11-2024 Episodic Schizophrenia and other psychotic disorders (17 sources) Psychotic disorder; Translations: [Unspecified psychosis not due to a substance or known physiological condition] Onset: 12-13-2024 12-13-2024 Chronic Spondylosis; intervertebral disc disorders; other back problems (7 sources) Neck pain; Translations: [Cervicalgia] Onset: 11-22-2024 10-18-2024 Episodic Comment on above: Patient does have ce rvical spondylosis. Exact degree of neurologic compromise is not clear. Further evaluation by MRI may be helpful but because of prior aneurysm treatment she would need to be cleared by radiology for the procedure. Substance-related disorders (20 sources) Nicotine dependence; Translations: [Nicotine dependence, unspecified, uncomplicated] Onset: 07-10-2024 07-10-2024 Chronic Thyroid disorders (20 sources) Hypothyroidism, unspecified; Translations: [Acquired hypothyroidism] Onset: 06-25-2024 07-08-2024 Chronic Unclassified (1 source) Patient encounter status 12-04-2024 Unclassified (1 source) Other supraventricular tachycardia; Translations: [Other supraventricular tachycardia] Onset: 12-30-2024 Past or Other Problems Problem Classification Problem Date Documented Da te Episodic/Chronic Cardiac arrest and ventricular fibrillation (6 sources) Cardiac arrest; Translations: [Cardiac arrest, cause unspecified] Onset: 12-20-2024 Resolved: 01-04-2025 12-20-2024 Chronic Congestive heart failure; nonhypertensive (20 sources) Pleural effusion due to congestive heart failure; Translations: [Heart failure, unspecified] Onset: 12-14-2024 Resolved: 12-15-2024 12-11-2024 Chronic Diabetes mellitus without complication (20 sources) Hyperglycemia; Translations: [Hyperglycemia, unspecified] Onset: 07-08-2024 07-08-2024 Episodic Headache; including migraine (1 source) Headache Onset: 07-08-2024 Episodic Immunizations and screening for infectious disease (3 sources) Encounter for immunization; Translations: [Patient encounter status] Onset: 06-25-2024 06-25-2024 Episodic Other circulatory disease (20 sources) History of cerebral aneurysm; Translations: [Personal [...] Test Name Value Interpretation Reference Range Facility Absolute lymphocyte countOrd ered By: Edouard Durham on 01-07-2025 Lymphocytes Auto (Unsp spec) [#/Vol] 2.25 10*3/uL 0.83-4.51 [facility] Absolute neutrophil countOrd ered By: Edouard Durham on 01-07-2025 Neutrophils (Bld) [#/Vol] 5.2 10*3/uL 2.0-7.7 [facility] Anion gap in Serum or Plasma Ordered By: Edouard Durham on 01-07-2025 Anion gap [Moles/Vol] 15 mmol/L - [facility] Automated lymphocyte count a s percentage of total leukocytesOrdered By: Edouard Durham on 01-07-2025 Lymphocytes/100 WBC Auto (Unsp spec) 25.7 % - [facility] BUN/creatinine ratioOrdered By: Edouard Durham on 01-07-2025 Urea nitrogen/Creatinine [Mass ratio] 10.4 mg/mg 10- [facility] Basophil percentageOrdered B y: Edouard Durham on 01-07-2025 Basophils/100 WBC (Bld) 0.9 % 0-1 [facility] CNPTOUTREACHon 01-07-2025 CNPTOUTREACH Normal [facility] Carbon dioxide, total [Moles /volume] in Central venous bloodOrdered By: Edouard Durham on 01-07-2025 CO2 [Moles/Vol] 20.2 mmol/L Low 21.0-32.0 [facility] Chloride assayOrdered By: Shabbir Durham on 01-07-2025 Chloride [Moles/Vol] 104 mmol/L 98-108 [facility] Eosinophil percentageOrdered By: Edouard Durham on 01-07-2025 Eosinophils/100 WBC (Bld) 5.9 % High 0-5 [facility] Erythrocyte distribution wid th ratioOrdered By: Edouard Durham on 01-07-2025 Erythrocyte distribution width (RBC) [Ratio] 14.9 % High 11.6-14.6 [facility] Erythrocyte distribution wid th standard deviationOrdered By: Edouard Durham on 01-07-2025 Erythrocyte distribution width (RBC) [Ratio] 52.1 fl High 35.1-43.9 [facility] Glomerular filtration rate ( GFR) estimation/1.73 sq m using serum, plasma, or whole bOrdered By: Edouard Durham on 01-07-2025 GFR/1.73 sq M.predicted among non-blacks MDRD (S/P/Bld) [Vol rate/Area] 20 mL/min/{1.73_m2} Low >60 [facility] Comment on above: mL/min/1.73m2 CKD-EP I Creatinine Equation (2020) Hematocrit Auto (Bld) [Volum e fraction]Ordered By: Edouard Durham on 01-07-2025 Hematocrit (Bld) [Volume fraction] 37.9 % 37-47 [facility] Hemoglobin measurementOrdere d By: Edouard Durham on 01-07-2025 Hemoglobin (Bld) [Mass/Vol] 12.5 g/dL 12.0-15.0 [facility] Immature granulocytes/100 WB C Auto (Bld)Ordered By: Edouard Durham on 01-07-2025 Immature granulocytes/100 WBC (Bld) 0.500 % 0.0-0.9 [facility] Comment on above: IG% - Immature Granu locytes (promyelocytes, myelocytes and metamyelocytes) > 1% indicates that a LEFT SHIFT is Present. MCV (mean corpuscular volume ) determinationOrdered By: Edouard Durham on 01-07-2025 MCV (RBC) [Entitic vol] 95.0 fL 81-99 [facility] Mean corpuscular hemoglobin (MCH) determinationOrdered By: Edouard Durham on 01-07-2025 MCH (RBC) [Entitic mass] 31.3 pg 27.0-32.0 [facility] Mean corpuscular hemoglobin concentration (MCHC) determinationOrdered By: Edouard Durham on 01-07-2025 MCHC (RBC) [Mass/Vol] 33.0 g/dL 32-36 [facility] Mean platelet volume determi nationOrdered By: Edouard Durham on 01-07-2025 Platelet mean volume (Bld) [Entitic vol] 11.0 fL 6.2-12.0 [facility] Monocyte percentageOrdered B y: Edouard Durham on 01-07-2025 Monocytes/100 WBC (Bld) 7.7 % 0-10 [facility] Natriuretic peptide.B prohor fernando N-Terminal [Mass/volume] in Serum or PlasmaOrdered By: Edouard Durham on 01-07-2025 Natriuretic peptide.B prohormone N-Terminal [Mass/Vol] 09246 pg/mL High <900 [facility] Comment on above: Heart Failure Unlike ly: < 300 pg/mLHeart Failure Likely< 50 Years: > 450 pg/mL50-75 Years: > 900 pg/mL>75 Years: > 1800 pg/mL Neutrophil percentageOrdered By: Edouard Durham on 01-07-2025 Neutrophils/100 WBC (Bld) 59.3 % 47-70 [facility] Nucleated red blood cell per centageOrdered By: Edouard Durham on 01-07-2025 Nucleated RBC/100 WBC (Bld) [Ratio] 0 % 0-5 [facility] Platelet countOrdered By: Shabbir Durham on 01-07-2025 Platelets (Bld) [#/Vol] 254 10*3/uL 150-450 [facility] Potassium measurement (mass/ volume)Ordered By: Edouard Durham on 01-07-2025 Potassium (Unsp spec) [Mass/Vol] 4.5 mmol/L 3.3-5.1 [facility] RBC Auto (Bld) [#/Vol]Ordere d By: Edouard Durham on 01-07-2025 RBC (Bld) [#/Vol] 3.99 10*6/uL Low 4.2-5.4 [facility] Serum creatinine measurement (mass/volume)Ordered By: Eoduard Durham on 01-07-2025 Creatinine [Mass/Vol] 2.51 mg/dL High 0.70-1.20 [facility] Serum glucose measurement (m ass/volume)Ordered By: Edouard Durham on 01-07-2025 Glucose [Mass/Vol] 119 mg/dL High 70-99 [facility] Serum or plasma calcium katerin urement (mass/volume)Ordered By: Edouard Durham on 01-07-2025 Calcium [Mass/Vol] 8.6 mg/dL 7.6-11.0 [facility] Serum or plasma urea nitroge n measurement (mass/volume)Ordered By: Edouard Durham on 01-07-2025 Urea nitrogen [Mass/Vol] 26 mg/dL High 4-19 [facility] Sodium levelOrdered By: Edouard Durham on 01-07-2025 Sodium [Moles/Vol] 139 mmol/L 133-145 [facility] Troponin T.cardiac [Mass/vol ume] in Serum or Plasma by High sensitivity methodOrdered By: Edouard Durham on 01-07-2025 Troponin T.cardiac High sensitivity method [Mass/Vol] 313 ng/L High <14 [facility] Comment on above: Critical Result(s) Chris SILVA at: 2041 by: SHANTHI Results read back by same. Troponin T.cardiac High sensitivity method [Mass/Vol] 274 ng/L High <14 [facility] Comment on above: Critical Result(s) Chris CHOWDHURY at: 1735 by: SHANTHI Results read back by same. Troponin T.cardiac High sensitivity method [Mass/Vol] 350 ng/L High <14 [facility] Comment on above: Delta: 1979 on 12/10-2345Critical Result(s) Called FEMI at: 1609 by: SHANTHI Results read back by same. White blood cell (WBC) count Ordered By: Edouard Durham on 01-07-2025 WBC (Bld) [#/Vol] 8.7 10*3/uL 4.4-11.0 [facility] CNPNon 01-06-2025 CNPN Normal [facility] CBC panel Auto (Bld)on 01-04 Erythrocyte distribution width (RBC) [Ratio] 14.5 % Normal 11.5-15.0 [facility] Comment on above: Order Comment: Speci men Type: BLOOD SPECIMENOrdering Facility: [facility] Address: [address] [place] [address] Performed By: #### 5 8410-2 ####[facility] LABIA [id number] [place] [address] [place] Hematocrit (Bld) [Volume fraction] 42.7 % Normal 36.0-46.0 [facility] Comment on above: Order Comment: Speci men Type: BLOOD SPECIMENOrdering Facility: [facility] Address: [address] [place] [address] Performed By: #### 5 8410-2 ####[facility] LAB[facility] [id number] [place] [address] [place] Hemoglobin (Bld) [Mass/Vol] 14.0 g/dL Normal 11.5-15.5 [facility] Comment on above: Order Comment: Speci men Type: BLOOD SPECIMENOrdering Facility: [facility] Address: [address] [place] [address] Performed By: #### 5 8410-2 ####[facility] LAB[facility] [id number] [place] [address] [place] MCH (RBC) [Entitic mass] 31.0 pg Normal 26.0-34.0 [facility] Comment on above: Order Comment: Speci men Type: BLOOD SPECIMENOrdering Facility: [facility] Address: [address] [place] [address] Performed By: #### 5 8410-2 ####[facility] LABCLIA [id number] [place] [address] [place] MCHC (RBC) [Mass/Vol] 32.8 g/dL Normal 30.5-36.0 [facility] Comment on above: Order Comment: Speci men Type: BLOOD SPECIMENOrdering Facility: [facility] Address: [address] [place] [address] Performed By: #### 5 8410-2 ####[facility] LABIA [id number] [place] [address] [place] MCV (RBC) [Entitic vol] 94.5 fL Normal 80.0-100.0 [facility] Comment on above: Order Comment: Speci men Type: BLOOD SPECIMENOrdering Facility: [facility] Address: [address] [place] [address] Performed By: #### 5 8410-2 ####[facility] LABIA [id number] [place] [address] [place] Nucleated RBC (Bld) [#/Vol] 10*3/uL Normal <0.01 [facility] Comment on above: Order Comment: Speci men Type: BLOOD SPECIMENOrdering Facility: [facility] Address: [address] [place] [address] Performed By: #### 5 8410-2 ####[facility] LABIA [id number] [place] [address] [place] Platelet mean volume (Bld) [Entitic vol] 10.6 fL Normal 9.0-12.7 [facility] Comment on above: Order Comment: Speci men Type: BLOOD SPECIMENOrdering Facility: [facility] Address: [address] [place] [address] Performed By: #### 5 8410-2 ####[facility] LABIA [id number] [place] [address] [place] Platelets (Bld) [#/Vol] 279 10*3/uL Normal 150-400 [facility] Comment on above: Order Comment: Speci men Type: BLOOD SPECIMENOrdering Facility: [facility] Address: [address] [place] [address] Performed By: #### 5 8410-2 ####[facility] LABCLIA [id number] [place] [address] [place] RBC (Bld) [#/Vol] 4.52 10*6/uL Normal 3.90-5.20 [facility] Comment on above: Order Comment: Speci men Type: BLOOD SPECIMENOrdering Facility: [facility] Address: [address] [place] [address] Performed By: #### 5 8410-2 ####[facility] LABCLIA [id number] [place] [address] [place] WBC (Bld) [#/Vol] 9.88 10*3/uL Normal 3.70-11.00 [facility] Comment on above: Order Comment: Speci men Type: BLOOD SPECIMENOrdering Facility: [facility] Address: [address] [place] [address] Performed By: #### 5 8410-2 ####[facility] LABCLIA [id number] [place] [address] [place] CNDSon 01-04-2025 CNDS Normal [facility] CONSULT PROGon 01-04-2025 CONSULT PROG Normal [facility] Comprehensive metabolic 2000 panelon 01-04-2025 Albumin [Mass/Vol] 3.6 g/dL Low 3.9-4.9 [facility] Comment on above: Order Comment: Speci men Type: BLOOD SPECIMENOrdering Facility: [facility] Address: [address] [place] [address] Performed By: #### 1 9123-9, 53225-5 ####[facility] LABCLIA [id number] [address] [place] [address] [place] ALP [Catalytic activity/Vol] 91 U/L Normal 34-123 [facility] Comment on above: Order Comment: Speci men Type: BLOOD SPECIMENOrdering Facility: [facility] Address: [address] [place] [address] Performed By: #### 1 9123-9, 11913-6 ####[facility] LABCLIA [id number] [address] [place] [address] [place] ALT [Catalytic activity/Vol] 17 U/L Normal 7-38 [facility] Comment on above: Order Comment: Speci men Type: BLOOD SPECIMENOrdering Facility: [facility] Address: [address] [place] [address] Performed By: #### 1 9123-9, ####[facility] LABCLIA [id number] [address], [facility]95 [place] Anion gap [Moles/Vol] 12 mmol/L Normal 8-15 [facility] Comment on above: Order Comment: Speci men Type: BLOOD SPECIMENOrdering Facility: [facility] Address: [address] [place] [address] Performed By: #### 1 9123-9, 53231-5 ####[facility] LABCLIA [id number] [address], [facility]95 [place] AST [Catalytic activity/Vol] 20 U/L Normal 13-35 [facility] Comment on above: Order Comment: Speci men Type: BLOOD SPECIMENOrdering Facility: [facility] Address: [address] [place] [address] Performed By: #### 1 9123-9, 80954-1 ####[facility] LABCLIA [id number] [address] [place] [address] [place] Bilirubin [Mass/Vol] 0.2 mg/dL Normal 0.2-1.3 [facility] Comment on above: Order Comment: Speci men Type: BLOOD SPECIMENOrdering Facility: [facility] Address: [address] [place] [address] Performed By: #### 1 23-9, ####[facility] LABCLIA [id number] [address] [address] [place] Calcium [Mass/Vol] 9.6 mg/dL Normal 8.5-10.2 [facility] Comment on above: Order Comment: Speci men Type: BLOOD SPECIMENOrdering Facility: [facility] Address: [address] [place], [place] [address] Performed By: #### 1 9122-9, ####[facility] LABCLIA [id number] [address] [address] [place] Chloride [Moles/Vol] 104 mmol/L Normal 98-107 [facility] Comment on above: Order Comment: Speci men Type: BLOOD SPECIMENOrdering Facility: [facility] Address: [address] [place], [place] [address] Performed By: #### 1 239, ####[facility] LABCLIA [id number] [address] [address] [place] CO2 [Moles/Vol] 23 mmol/L Normal 22-30 [facility] Comment on above: Order Comment: Speci men Type: BLOOD SPECIMENOrdering Facility: [facility] Address: [address] [place] [address] Performed By: #### 1 23-9, 68716-8 ####[facility] LABCLIA [id number] [address] [address] [place] Creatinine [Mass/Vol] 2.22 mg/dL High 0.58-0.96 [facility] Comment on above: Order Comment: Speci men Type: BLOOD SPECIMENOrdering Facility: [facility] Address: [address] [place] [address] Performed By: #### 1 23-9, 52253-6 ####[facility] LABCLIA [id number] [place] [address] [place] Creatinine and Glomerular filtration rate.predicted panel (S/P/Bld) 24 mL/min/1.73m??? Low >=60 [facility] Comment on above: Order Comment: Marika hammonds Type: BLOOD SPECIMENOrdering Facility: [facility] Address: [address] [place] [address] Result Comment: Maru mated Glomerular Filtration Rate [...] accurately reflect actual GFR. Performed By: #### 1 9123-9, 71458-4 ####[facility] LABIA [id number] [place] [address] [place] Glucose [Mass/Vol] 117 mg/dL High 74-99 [facility] Comment on above: Order Comment: Marika hammonds Type: BLOOD SPECIMENOrdering Facility: [facility] Address: [address] [place] [address] Result Comment: The [place] [employer] (ADA) provides guidance for cutoff values for fasting glucose and random glucose. The ADA defines fasting as no caloric intake for at least 8 hours. Fasting plasma glucose results between 100 to 125 mg/dL indicate increased risk for diabetes (prediabetes).Fasting plasma glucose results greater than or equal to 126 mg/dL meet the criteria for diagnosis of diabetes. In the absence of unequivocal hyperglycemia, results should be confirmed by repeat testing. In a patient with classic symptoms of hyperglycemia or hyperglycemic crisis, random plasma glucose results greater than or equal to 200 mg/dL meet the criteria for diagnosis of diabetes.Reference: Standards of Medical Care in Diabetes 2016, [place] [employer]. Diabetes Care. 2016.39(Suppl 1). Performed By: #### 1 9123-9, 41600-5 ####[facility] LAB[facility] [id number] [address] [address] [place] Potassium [Moles/Vol] 5.1 mmol/L Normal 3.7-5.1 [facility] Comment on above: Order Comment: Speci men Type: BLOOD SPECIMENOrdering Facility: [facility] Address: [address] [place], [place] [address] Performed By: #### 1 9123-9, 70381-7 ####[facility] [id number] [address] [address] [place] Protein [Mass/Vol] 6.6 g/dL Normal 6.3-8.0 [facility] Comment on above: Order Comment: Speci men Type: BLOOD SPECIMENOrdering Facility: [facility] Address: [address] [place], [place] [address] Performed By: #### 1 9123-9, 02088-5 ####[facility] [id number] [address] [address] [place] Sodium [Moles/Vol] 139 mmol/L Normal 136-144 [facility] Comment on above: Order Comment: Speci men Type: BLOOD SPECIMENOrdering Facility: [facility] Address: [address] [place], [place] [address] Performed By: #### 1 9123-9, 91573-2 ####[facility] [id number] [address] [address] [place] Urea nitrogen [Mass/Vol] 33 mg/dL High 7-21 [facility] Comment on above: Order Comment: Speci men Type: BLOOD SPECIMENOrdering Facility: [facility] Address: [address] [place], [place] [address] Performed By: #### 1 9123-9, 19125-2 ####[facility] [id number] [address] [address] [place] Magnesium SerPl-mCncon 01-04 Magnesium [Mass/Vol] 2.6 mg/dL High 1.7-2.3 [facility] Comment on above: Order Comment: Speci men Type: BLOOD SPECIMENOrdering Facility: [facility] Address: [address] [place] [address] Performed By: #### 1 9123-9, 04087-4 ####[facility] LABIA [id number] [place] [address] [place] ANES POSTPROC EVALon 025 ANES POSTPROC EVAL Normal [facility] ANES PRE-OPon 01-03-2025 ANES PRE-OP Normal [facility] CASE MANAGEMon 01-03-2025 CASE MANAGEM Normal [facility] CBC panel Auto (Bld)on 01-03 Erythrocyte distribution width (RBC) [Ratio] 14.7 % Normal 11.5-15.0 [facility] Comment on above: Order Comment: Speci men Type: BLOOD SPECIMENOrdering Facility: [facility] Address: [address] [place] [address] Performed By: #### 5 8410-2 ####[facility] LAB[facility] [id number] [place] [id number] [place] Hematocrit (Bld) [Volume fraction] 46.8 % High 36.0-46.0 [facility] Comment on above: Order Comment: Speci men Type: BLOOD SPECIMENOrdering Facility: [facility] Address: [address] [place] [address] Performed By: #### 5 8410-2 ####[facility] [id number] [place] [address] [place] Hemoglobin (Bld) [Mass/Vol] 14.5 g/dL Normal 11.5-15.5 [facility] Comment on above: Order Comment: Speci men Type: BLOOD SPECIMENOrdering Facility: [facility] Address: [address] [place] [address] Performed By: #### 5 8410-2 ####[facility] LABIA [id number] [place] [address] [place] MCH (RBC) [Entitic mass] 30.7 pg Normal 26.0-34.0 [facility] Comment on above: Order Comment: Speci men Type: BLOOD SPECIMENOrdering Facility: [facility] Address: [address] [place] [address] Performed By: #### 5 8410-2 ####[facility] [id number] [place] [address] [place] MCHC (RBC) [Mass/Vol] 31.0 g/dL Normal 30.5-36.0 [facility] Comment on above: Order Comment: Speci men Type: BLOOD SPECIMENOrdering Facility: [facility] Address: [address] [place] [address] Performed By: #### 5 8410-2 ####[facility] [id number] [address] [place] MCV (RBC) [Entitic vol] 99.2 fL Normal 80.0-100.0 C [facility] Comment on above: Order Comment: Speci men Type: BLOOD SPECIMENOrdering Facility: [facility] Address: [address] [place] [address] Performed By: #### 5 8410-2 ####[facility] [id number] [address] [place] Nucleated RBC (Bld) [#/Vol] 10*3/uL Normal <0.01 [facility] Comment on above: Order Comment: Speci men Type: BLOOD SPECIMENOrdering Facility: [facility] Address: [address] [place] [address] Performed By: #### 5 8410-2 ####[facility] [id number] [address] [address] [place] [address] [place] Platelet mean volume (Bld) [Entitic vol] 10.4 fL Normal 9.0-12.7 [facility] Comment on above: Order Comment: Speci men Type: BLOOD SPECIMENOrdering Facility: [facility] Address: [address] [place] [address] Performed By: #### 5 8410-2 ####[facility] LABCLIA [id number] [place] [address] [place] Platelets (Bld) [#/Vol] 287 10*3/uL Normal 150-400 [facility] Comment on above: Order Comment: Speci men Type: BLOOD SPECIMENOrdering Facility: [facility] Address: [address] [place] [address] Performed By: #### 5 8410-2 ####[facility] LABCLIA [id number] [place] [address] [place] RBC (Bld) [#/Vol] 4.72 10*6/uL Normal 3.90-5.20 [facility] Comment on above: Order Comment: Speci men Type: BLOOD SPECIMENOrdering Facility: [facility] Address: [address] [place] [address] Performed By: #### 5 8410-2 ####[facility] LABCLIA [id number] [address] [address] [place] WBC (Bld) [#/Vol] 7.65 10*3/uL Normal 3.70-11.00 [facility] Comment on above: Order Comment: Speci men Type: BLOOD SPECIMENOrdering Facility: [facility] Address: [address] [place] [address] Performed By: #### 5 8410-2 ####[facility] LABCLIA [id number] [address] [address] [place] Comprehensive metabolic 2000 panelon 01-03-2025 Albumin [Mass/Vol] 3.8 g/dL Low 3.9-4.9 [facility] Comment on above: Order Comment: Speci men Type: BLOOD SPECIMENOrdering Facility: [facility] Address: [address] [place] [address] Performed By: #### 2 4323-8, ####[facility] LABCLIA [id number] [address] [place] [address] [place] ALP [Catalytic activity/Vol] 79 U/L Normal 34-123 [facility] Comment on above: Order Comment: Speci men Type: BLOOD SPECIMENOrdering Facility: [facility] Address: [address] [place], [place] [address] Performed By: #### 2 3-8, ####[facility] LABCLIA [id number] [address] [place] [address] [place] ALT [Catalytic activity/Vol] 19 U/L Normal 7-38 [facility] Comment on above: Order Comment: Speci men Type: BLOOD SPECIMENOrdering Facility: [facility] Address: [address] [place], [place] [address] Performed By: #### 2 4323-8, ####[facility] LABCLIA [id number] [address] [address] [place] Anion gap [Moles/Vol] 13 mmol/L Normal 8-15 [facility] Comment on above: Order Comment: Speci men Type: BLOOD SPECIMENOrdering Facility: [facility] Address: [address] [place] [id number] Performed By: #### 2 4323-8, ####[facility] LABCLIA [id number] [address] [address] [place] AST [Catalytic activity/Vol] 20 U/L Normal 13-35 [facility] Comment on above: Order Comment: Speci men Type: BLOOD SPECIMENOrdering Facility: [facility] Address: [address] [place], [place] [address] Performed By: #### 2 432-8, ####[facility] LABCLIA [id number] [facility] [address] [place] [address] [place] Bilirubin [Mass/Vol] 0.3 mg/dL Normal 0.2-1.3 [facility] Comment on above: Order Comment: Speci men Type: BLOOD SPECIMENOrdering Facility: [facility] Address: [address] [place] [address] Performed By: #### 2 4328, ####[facility] LABCLIA [id number] [address] [place] [address] [place] Calcium [Mass/Vol] 9.9 mg/dL Normal 8.5-10.2 [facility] Comment on above: Order Comment: Speci men Type: BLOOD SPECIMENOrdering Facility: [facility] Address: [address] [place] [address] Performed By: #### 2 4328, ####[facility] LABCLIA [id number] [address] [place] [address] [place] Chloride [Moles/Vol] 99 mmol/L Normal 98-107 [facility] Comment on above: Order Comment: Speci men Type: BLOOD SPECIMENOrdering Facility: [facility] Address: [address] [place] [address] Performed By: #### 2 8, ####[facility] LABCLIA [id number] [facility] [address] [place] [address] [place] CO2 [Moles/Vol] 25 mmol/L Normal 22-30 [facility] Comment on above: Order Comment: Speci men Type: BLOOD SPECIMENOrdering Facility: [facility] Address: [address] [place], [place] [address] Performed By: #### 2 4323-8, ####[facility] LABCLIA [id number] [address] [place] [address] [place] Creatinine [Mass/Vol] 2.32 mg/dL High 0.58-0.96 [facility] Comment on above: Order Comment: Marika hammonds Type: BLOOD SPECIMENOrdering Facility: [facility] Address: [address] [place] [address] Performed By: #### 2 4323-8, ####[facility] LABCLIA [id number] [place] [address] [place] Creatinine and Glomerular filtration rate.predicted panel (S/P/Bld) 22 mL/min/1.73m??? Low >=60 [facility] Comment on above: Order Comment: Marika hammonds Type: BLOOD SPECIMENOrdering Facility: [facility] Address: [address] [place] [address] Result Comment: Maru mated Glomerular Filtration Rate [...] reflect actual GFR. Performed By: #### 2 4323-8, ####[facility] LABCLIA [id number] [place] [id number] [place] Glucose [Mass/Vol] 98 mg/dL Normal 74-99 [facility] Comment on above: Order Comment: Marika hammonds Type: BLOOD SPECIMENOrdering Facility: [facility] Address: [address] [place] [address] Result Comment: The [place] [employer] (ADA) provides guidance for cutoff values for fasting glucose and random glucose. The ADA defines fasting as no caloric intake for at least 8 hours. Fasting plasma glucose results between 100 to 125 mg/dL indicate increased risk for diabetes (prediabetes).Fasting plasma glucose results greater than or equal to 126 mg/dL meet the criteria for diagnosis of diabetes. In the absence of unequivocal hyperglycemia, results should be confirmed by repeat testing. In a patient with classic symptoms of hyperglycemia or hyperglycemic crisis, random plasma glucose results greater than or equal to 200 mg/dL meet the criteria for diagnosis of diabetes.Reference: Standards of Medical Care in Diabetes 2016, [place] [employer]. Diabetes Care. 2016.39(Suppl 1). Performed By: #### 2 4323-02, ####[facility] LABCLIA [id number] [address] [address] [place] Potassium [Moles/Vol] 4.7 mmol/L Normal 3.7-5.1 [facility] Comment on above: Order Comment: Speci men Type: BLOOD SPECIMENOrdering Facility: [facility] Address: [address] [place] [address] Performed By: #### 2 4323-02, ####[facility] LABCLIA [id number] [address] [address] [place] Protein [Mass/Vol] 7.1 g/dL Normal 6.3-8.0 [facility] Comment on above: Order Comment: Speci men Type: BLOOD SPECIMENOrdering Facility: [facility] Address: [address] [place] [address] Performed By: #### 2 4323-02, ####[facility] LABIA [id number] [address] [address] [place] Sodium [Moles/Vol] 137 mmol/L Normal 136-144 [facility] Comment on above: Order Comment: Speci men Type: BLOOD SPECIMENOrdering Facility: [facility] Address: [address] [place] [address] Performed By: #### 2 4323-02, ####[facility] LABCLIA [id number] [address] [address] [place] Urea nitrogen [Mass/Vol] 28 mg/dL High 7-21 [facility] Comment on above: Order Comment: Speci men Type: BLOOD SPECIMENOrdering Facility: [facility] Address: [address] [place] [address] Performed By: #### 2 4323-8, 33166-4 ####[facility] LABCL[facility] [id number] [place] [address] [place] Magnesium SerPl-mCncon 01-03 Magnesium [Mass/Vol] 2.4 mg/dL High 1.7-2.3 [facility] Comment on above: Order Comment: Speci men Type: BLOOD SPECIMENOrdering Facility: [facility] Address: [address] [place] [address] Performed By: #### 2 4323-8, 54218-7 ####[facility] LABCL[facility] [id number] [place] [address] [place] NUTRITIONon 01-03-2025 NUTRITION Normal [facility] PT EDon 01-03-2025 PT ED Normal [facility] TYPE + SCREENon 01-03-2025 ABO O Normal [facility] Comment on above: Order Comment: Speci men Type: BLOOD SPECIMENOrdering Facility: [facility] Address: [address] [place] [address] Performed By: #### T SCR ####[facility] [id number] [place] [address] [place] Rh Nom (Bld) Positive Normal [facility] Comment on above: Order Comment: Speci men Type: BLOOD SPECIMENOrdering Facility: [facility] Address: [address] [place] [address] Performed By: #### T SCR ####CC [facility] BLOOD BANKCLIA [id number] [place] [address] [place] TYPE AND SCREEN EXPIRATION 01/06/2025 23:59 Normal [facility] Comment on above: Order Comment: Speci men Type: BLOOD SPECIMENOrdering Facility: [facility] Address: [address] [place] [address] Performed By: #### T SCR ####CC [facility]IA [id number] [address] [address] [place] XR CHEST 2V FRONTAL/LATon XR CHEST 2V FRONTAL/LAT Normal C [facility] CARD CATH INTERVENTon 2024 CARD CATH INTERVENT Normal [facility] CBC panel Auto (Bld)on 01-02 Erythrocyte distribution width (RBC) [Ratio] 14.5 % Normal 11.5-15.0 [facility] Comment on above: Order Comment: Speci men Type: BLOOD SPECIMENOrdering Facility: [facility] Address: [address] [place] [address] Performed By: #### 5 8410-2 ####[facility] [id number] [place] [address] [place] Hematocrit (Bld) [Volume fraction] 41.9 % Normal 36.0-46.0 [facility] Comment on above: Order Comment: Speci men Type: BLOOD SPECIMENOrdering Facility: [facility] Address: [address] [place] [address] Performed By: #### 5 8410-2 ####[facility] [id number] [place] [address] [place] Hemoglobin (Bld) [Mass/Vol] 14.1 g/dL Normal 11.5-15.5 [facility] Comment on above: Order Comment: Speci men Type: BLOOD SPECIMENOrdering Facility: [facility] Address: [address] [place] [address] Performed By: #### 5 8410-2 ####[facility] [id number] [place] [id number] [place] MCH (RBC) [Entitic mass] 31.3 pg Normal 26.0-34.0 [facility] Comment on above: Order Comment: Speci men Type: BLOOD SPECIMENOrdering Facility: [facility] Address: [address] [place] [address] Performed By: #### 5 8410-2 ####[facility] LABCLIA [id number] [address] [place] MCHC (RBC) [Mass/Vol] 33.7 g/dL Normal 30.5-36.0 [facility] Comment on above: Order Comment: Speci men Type: BLOOD SPECIMENOrdering Facility: [facility] Address: [address] [place] [address] Performed By: #### 5 8410-2 ####[facility] LABIA [id number] [place] [address] [place] MCV (RBC) [Entitic vol] 92.9 fL Normal 80.0-100.0 C [facility] Comment on above: Order Comment: Speci men Type: BLOOD SPECIMENOrdering Facility: [facility] Address: [address] [place] [address] Performed By: #### 5 8410-2 ####[facility] LABIA [id number] [place] [address] [place] Nucleated RBC (Bld) [#/Vol] 10*3/uL Normal <0.01 [facility] Comment on above: Order Comment: Speci men Type: BLOOD SPECIMENOrdering Facility: [facility] Address: [address] [place] [address] Performed By: #### 5 8410-2 ####[facility] LABIA [id number] [place] [address] [place] Platelet mean volume (Bld) [Entitic vol] 11.6 fL Normal 9.0-12.7 [facility] Comment on above: Order Comment: Speci men Type: BLOOD SPECIMENOrdering Facility: [facility] Address: [address] [place] [address] Performed By: #### 5 8410-2 ####[facility] LABIA [id number] [place] [id number] [place] Platelets (Bld) [#/Vol] 308 10*3/uL Normal 150-400 [facility] Comment on above: Order Comment: Speci men Type: BLOOD SPECIMENOrdering Facility: [facility] Address: [address] [place] [address] Performed By: #### 5 8410-2 ####[facility] LABCLIA [id number] [place] [address] [place] RBC (Bld) [#/Vol] 4.51 10*6/uL Normal 3.90-5.20 [facility] Comment on above: Order Comment: Speci men Type: BLOOD SPECIMENOrdering Facility: [facility] Address: [address] [place] [address] Performed By: #### 5 8410-2 ####[facility] LABCLIA [id number] [place] [address] [place] WBC (Bld) [#/Vol] 8.50 10*3/uL Normal 3.70-11.00 [facility] Comment on above: Order Comment: Speci men Type: BLOOD SPECIMENOrdering Facility: [facility] Address: [address] [place] [address] Performed By: #### 5 8410-2 ####[facility] LABCLIA [id number] [place] [address] [place] CONSULT PROGon 01-02-2025 CONSULT PROG Normal [facility] CONSULT PROG Normal [facility] Comprehensive metabolic 2000 panelon 01-02-2025 Albumin [Mass/Vol] 3.7 g/dL Low 3.9-4.9 [facility] Comment on above: Order Comment: Speci men Type: BLOOD SPECIMENOrdering Facility: [facility] Address: [address] [place] [address] Performed By: #### 1 9123-9, 3016-3, 96376-5 ####[facility] LABCLIA [id number] [place] [id number] [place] ALP [Catalytic activity/Vol] 80 U/L Normal 34-123 [facility] Comment on above: Order Comment: Speci men Type: BLOOD SPECIMENOrdering Facility: [facility] Address: [address] [place] [address] Performed By: #### 1 9123-9, 6-3, 07752-4 ####[facility] LABCLIA [id number] [place] [id number] [place] ALT [Catalytic activity/Vol] 17 U/L Normal 7-38 [facility] Comment on above: Order Comment: Speci men Type: BLOOD SPECIMENOrdering Facility: [facility] Address: [address] [place] [address] Performed By: #### 1 9123-9, 3015-3, 94285-2 ####[facility] LABIA [id number] [place] [address] [place] Anion gap [Moles/Vol] 15 mmol/L Normal 8-15 [facility] Comment on above: Order Comment: Speci men Type: BLOOD SPECIMENOrdering Facility: [facility] Address: [address] [place] [address] Performed By: #### 1 9123-9, 3015-3, 47003-6 ####[facility] LABIA [id number] [place] [address] [place] AST [Catalytic activity/Vol] 17 U/L Normal 13-35 [facility] Comment on above: Order Comment: Speci men Type: BLOOD SPECIMENOrdering Facility: [facility] Address: [address] [place] [address] Performed By: #### 1 9123-9, 6-3, 73713-9 ####[facility] LABCLIA [id number] [address] [address] [place] Bilirubin [Mass/Vol] 0.3 mg/dL Normal 0.2-1.3 [facility] Comment on above: Order Comment: Speci men Type: BLOOD SPECIMENOrdering Facility: [facility] Address: [address] [place], [place] [address] Performed By: #### 1 9123-9, 3, 26255-6 ####[facility] LABCLIA [id number] [facility] [address] [address] [place] Calcium [Mass/Vol] 9.4 mg/dL Normal 8.5-10.2 [facility] Comment on above: Order Comment: Speci men Type: BLOOD SPECIMENOrdering Facility: [facility] Address: [address] [place], [place] [address] Performed By: #### 1 9123-9, 3, ####[facility] LABCLIA [id number] [facility] [address] [address] [place] Chloride [Moles/Vol] 104 mmol/L Normal 98-107 [facility] Comment on above: Order Comment: Speci men Type: BLOOD SPECIMENOrdering Facility: [facility] Address: [address] [place], [place] [address] Performed By: #### 1 9123-9, 3, ####[facility] LABCLIA [id number] [facility] [address] [address] [place] CO2 [Moles/Vol] 19 mmol/L Low 22-30 [facility] Comment on above: Order Comment: Speci men Type: BLOOD SPECIMENOrdering Facility: [facility] Address: [address] [place] [address] Performed By: #### 1 9123-9, 3, 26409-7 ####[facility] LABCLIA [id number] [facility] [address] [address] [place] Creatinine [Mass/Vol] 2.26 mg/dL High 0.58-0.96 [facility] Comment on above: Order Comment: Marika hammonds Type: BLOOD SPECIMENOrdering Facility: [facility] Address: [address] [place] [address] Performed By: #### 1 9123-9, 3016-3, 96075-3 ####[facility] LABCLIA [id number] [place] [id number] [place] Creatinine and Glomerular filtration rate.predicted panel (S/P/Bld) 23 mL/min/1.73m??? Low >=60 [facility] Comment on above: Order Comment: Marika hammonds Type: BLOOD SPECIMENOrdering Facility: [facility] Address: [address] [place] [address] Result Comment: Maru mated Glomerular Filtration Rate [...] accurately reflect actual GFR. Performed By: #### 1 9123-9, 6-3, 02808-2 ####[facility] LABIA [id number] [place] [id number] [place] Glucose [Mass/Vol] 115 mg/dL High 74-99 [facility] Comment on above: Order Comment: Marika hammonds Type: BLOOD SPECIMENOrdering Facility: [facility] Address: [address] [place] [address] Result Comment: The [place] [employer] (ADA) provides guidance for cutoff values for fasting glucose and random glucose. The ADA defines fasting as no caloric intake for at least 8 hours. Fasting plasma glucose results between 100 to 125 mg/dL indicate increased risk for diabetes (prediabetes).Fasting plasma glucose results greater than or equal to 126 mg/dL meet the criteria for diagnosis of diabetes. In the absence of unequivocal hyperglycemia, results should be confirmed by repeat testing. In a patient with classic symptoms of hyperglycemia or hyperglycemic crisis, random plasma glucose results greater than or equal to 200 mg/dL meet the criteria for diagnosis of diabetes.Reference: Standards of Medical Care in Diabetes 2016, [place] [employer]. Diabetes Care. 2016.39(Suppl 1). Performed By: #### 1 9123-9, 3015-3, 71491-1 ####[facility] LABCLIA [id number] [address] [address] [place] Potassium [Moles/Vol] 4.1 mmol/L Normal 3.7-5.1 [facility] Comment on above: Order Comment: Speci men Type: BLOOD SPECIMENOrdering Facility: [facility] Address: [address] [place], [place] [address] Performed By: #### 1 9123-9, 3, ####[facility] LABCLIA [id number] [address] [address] [place] Protein [Mass/Vol] 6.8 g/dL Normal 6.3-8.0 [facility] Comment on above: Order Comment: Speci men Type: BLOOD SPECIMENOrdering Facility: [facility] Address: [address] [place], [place] [address] Performed By: #### 1 9123-9, 3, ####[facility] LABCLIA [id number] [address] [address] [place] Sodium [Moles/Vol] 138 mmol/L Normal 136-144 [facility] Comment on above: Order Comment: Speci men Type: BLOOD SPECIMENOrdering Facility: [facility] Address: [address] [place], [place] [address] Performed By: #### 1 9123-9, 3, 16936-2 ####[facility] LABCLIA [id number] [address] [address] [place] Urea nitrogen [Mass/Vol] 30 mg/dL High 7-21 [facility] Comment on above: Order Comment: Speci men Type: BLOOD SPECIMENOrdering Facility: [facility] Address: [address] [place] [address] Performed By: #### 1 9123-9, 3016-3, 02025-5 ####[facility] LABCLIA [id number] [place] [id number] [place] Magnesium SerPl-mCncon 01-02 Magnesium [Mass/Vol] 2.2 mg/dL Normal 1.7-2.3 [facility] Comment on above: Order Comment: Speci men Type: BLOOD SPECIMENOrdering Facility: [facility] Address: [address] [place] [address] Performed By: #### 1 9123-9, 3015-3, 42622-1 ####[facility] LABCLIA [id number] [address] [place] PT EDon 01-02-2025 PT ED Normal [facility] TSH SerPl-aCncon 01-02-2025 TSH Qn 1.990 m[IU]/L Normal 0.270-4.200 [facility] Comment on above: Order Comment: Speci men Type: BLOOD SPECIMENOrdering Facility: [facility] Address: [address] [place] [address] Performed By: #### 1 9123-9, 3015-3, 83797-8 ####[facility] LABCLIA [id number] [place] [address] [place] CBC panel Auto (Bld)on 01-01 Erythrocyte distribution width (RBC) [Ratio] 14.6 % Normal 11.5-15.0 [facility] Comment on above: Order Comment: Speci men Type: BLOOD SPECIMENOrdering Facility: [facility] Address: [address] [place] [address] [place] [address] Performed By: #### 5 8410-2 ####[facility] LABCLIA [id number] [place] [address] [place] Hematocrit (Bld) [Volume fraction] 41.4 % Normal 36.0-46.0 [facility] Comment on above: Order Comment: Speci men Type: BLOOD SPECIMENOrdering Facility: [facility] Address: [address] [place] [address] Performed By: #### 5 8410-2 ####[facility] LABIA [id number] [place] [address] [place] Hemoglobin (Bld) [Mass/Vol] 13.3 g/dL Normal 11.5-15.5 [facility] Comment on above: Order Comment: Speci men Type: BLOOD SPECIMENOrdering Facility: [facility] Address: [address] [place] [address] Performed By: #### 5 8410-2 ####[facility] LABIA [id number] [place] [address] [place] MCH (RBC) [Entitic mass] 30.5 pg Normal 26.0-34.0 [facility] Comment on above: Order Comment: Speci men Type: BLOOD SPECIMENOrdering Facility: [facility] Address: [address] [place] [address] Performed By: #### 5 8410-2 ####[facility] LABIA [id number] [place] [address] [place] MCHC (RBC) [Mass/Vol] 32.1 g/dL Normal 30.5-36.0 [facility] Comment on above: Order Comment: Speci men Type: BLOOD SPECIMENOrdering Facility: [facility] Address: [address] [place] [address] Performed By: #### 5 8410-2 ####[facility] LABIA [id number] [place] [address] [place] MCV (RBC) [Entitic vol] 95.0 fL Normal 80.0-100.0 C [facility] Comment on above: Order Comment: Speci men Type: BLOOD SPECIMENOrdering Facility: [facility] Address: [address] [place] [address] Performed By: #### 5 8410-2 ####[facility] LABCLIA [id number] [place] [address] [place] Nucleated RBC (Bld) [#/Vol] 10*3/uL Normal <0.01 [facility] Comment on above: Order Comment: Speci men Type: BLOOD SPECIMENOrdering Facility: [facility] Address: [address] [place] [address] Performed By: #### 5 8410-2 ####[facility] LABIA [id number] [place] [address] [place] Platelet mean volume (Bld) [Entitic vol] 11.0 fL Normal 9.0-12.7 [facility] Comment on above: Order Comment: Speci men Type: BLOOD SPECIMENOrdering Facility: [facility] Address: [address] [place] [address] Performed By: #### 5 8410-2 ####[facility] LABIA [id number] [place] [address] [place] Platelets (Bld) [#/Vol] 298 10*3/uL Normal 150-400 [facility] Comment on above: Order Comment: Speci men Type: BLOOD SPECIMENOrdering Facility: [facility] Address: [address] [place] [address] Performed By: #### 5 8410-2 ####[facility] LABCLIA [id number] [place] [id number] [place] RBC (Bld) [#/Vol] 4.36 10*6/uL Normal 3.90-5.20 [facility] Comment on above: Order Comment: Speci men Type: BLOOD SPECIMENOrdering Facility: [facility] Address: [address] [place] [address] Performed By: #### 5 8410-2 ####[facility] LABCLIA [id number] [address] [place] [address] [place] WBC (Bld) [#/Vol] 9.60 10*3/uL Normal 3.70-11.00 [facility] Comment on above: Order Comment: Speci men Type: BLOOD SPECIMENOrdering Facility: [facility] Address: [address] [place], [place] [address] Performed By: #### 5 8410-2 ####[facility] LABIA [id number] [address] [place] [address] [place] CONSULT PROGon 01-01-2025 CONSULT PROG Normal [facility] CONSULT PROG Normal [facility] CONSULT PROG Normal [facility] Comprehensive metabolic 2000 panelon 01-01-2025 Albumin [Mass/Vol] 3.5 g/dL Low 3.9-4.9 [facility] Comment on above: Order Comment: Speci men Type: BLOOD SPECIMENOrdering Facility: [facility] Address: [address] [place] [address] Performed By: #### 2 4323-8, 42608-0, 3016-3 ####[facility] LABIA [id number] [place] [id number] [place] ALP [Catalytic activity/Vol] 83 U/L Normal 34-123 [facility] Comment on above: Order Comment: Speci men Type: BLOOD SPECIMENOrdering Facility: [facility] Address: [address] [place], [place] [address] Performed By: #### 2 4323-8, 18936-9, 3016-3 ####[facility] LABIA [id number] [address] [address] [place] ALT [Catalytic activity/Vol] 18 U/L Normal 7-38 [facility] Comment on above: Order Comment: Speci men Type: BLOOD SPECIMENOrdering Facility: [facility] Address: [address] [place], [place] [address] Performed By: #### 2 4323-8, 03326-7, 6-3 ####[facility] LABCLIA [id number] [address] [address] [place] Anion gap [Moles/Vol] 14 mmol/L Normal 8-15 [facility] Comment on above: Order Comment: Speci men Type: BLOOD SPECIMENOrdering Facility: [facility] Address: [address] [place], [place] [address] Performed By: #### 2 4323-8, , 6-3 ####[facility] LABCLIA [id number] [address] [address] [place] AST [Catalytic activity/Vol] 22 U/L Normal 13-35 [facility] Comment on above: Order Comment: Speci men Type: BLOOD SPECIMENOrdering Facility: [facility] Address: [address] [place] [address] Result Comment: Resu lts may be falsely increased due to interference from hemolysis. Suggest reorder as clinically indicated. Performed By: #### 2 4323-8, , 6-3 ####[facility] LABIA [id number] [address] [address] [place] Bilirubin [Mass/Vol] 0.2 mg/dL Normal 0.2-1.3 [facility] Comment on above: Order Comment: Speci men Type: BLOOD SPECIMENOrdering Facility: [facility] Address: [address] [place] [address] Performed By: #### 2 4323-8, 11147-3, 6-3 ####[facility] LABIA [id number] [address] [address] [place] Calcium [Mass/Vol] 9.3 mg/dL Normal 8.5-10.2 [facility] Comment on above: Order Comment: Speci men Type: BLOOD SPECIMENOrdering Facility: [facility] Address: [address] [place], [place] [address] Performed By: #### 2 4323-8, 24843-9, 6-3 ####[facility] LABCLIA [id number] [address] [address] [place] Chloride [Moles/Vol] 105 mmol/L Normal 98-107 [facility] Comment on above: Order Comment: Speci men Type: BLOOD SPECIMENOrdering Facility: [facility] Address: [address] [place] [address] Performed By: #### 2 4323-8, 71512-2, 6-3 ####[facility] LABIA [id number] [place] [id number] [place] CO2 [Moles/Vol] 19 mmol/L Low 22-30 [facility] Comment on above: Order Comment: Speci men Type: BLOOD SPECIMENOrdering Facility: [facility] Address: [address] [place] [address] Performed By: #### 2 4323-8, 49071-8, 6-3 ####[facility] LABIA [id number] [place] [id number] [place] Creatinine [Mass/Vol] 2.06 mg/dL High 0.58-0.96 [facility] Comment on above: Order Comment: Speci men Type: BLOOD SPECIMENOrdering Facility: [facility] Address: [address] [place] [address] Performed By: #### 2 4323-8, 07163-6, 6-3 ####[facility] LABIA [id number] [address] [address] [place] Creatinine and Glomerular filtration rate.predicted panel (S/P/Bld) 26 mL/min/1.73m??? Low >=60 [facility] Comment on above: Order Comment: Speci men Type: BLOOD SPECIMENOrdering Facility: [facility] Address: [address] [place] [address] Result Comment: Maru mated Glomerular Filtration Rate [...] reflect actual GFR. Performed By: #### 2 4323-8, , 3015-3 ####[facility] LABCLIA [id number] [address] [address] [place] Glucose [Mass/Vol] 112 mg/dL High 74-99 [facility] Comment on above: Order Comment: Marika hammonds Type: BLOOD SPECIMENOrdering Facility: [facility] Address: [address] [place] [address] Result Comment: The [place] [employer] (ADA) provides guidance for cutoff values for fasting glucose and random glucose. The ADA defines fasting as no caloric intake for at least 8 hours. Fasting plasma glucose results between 100 to 125 mg/dL indicate increased risk for diabetes (prediabetes).Fasting plasma glucose results greater than or equal to 126 mg/dL meet the criteria for diagnosis of diabetes. In the absence of unequivocal hyperglycemia, results should be confirmed by repeat testing. In a patient with classic symptoms of hyperglycemia or hyperglycemic crisis, random plasma glucose results greater than or equal to 200 mg/dL meet the criteria for diagnosis of diabetes.Reference: Standards of Medical Care in Diabetes 2016, [place] [employer]. Diabetes Care. 2016.39(Suppl 1). Performed By: #### 2 4323-8, , 3015-09 ####[facility] LABIA [id number] [address] [address] [place] Potassium [Moles/Vol] 4.6 mmol/L Normal 3.7-5.1 [facility] Comment on above: Order Comment: Marika hammonds Type: BLOOD SPECIMENOrdering Facility: [facility] Address: [address] [place] [address] Performed By: #### 2 4323-8, , 3015-3 ####[facility] LABCLIA [id number] [address] [address] [place] Protein [Mass/Vol] 6.5 g/dL Normal 6.3-8.0 [facility] Comment on above: Order Comment: Speci men Type: BLOOD SPECIMENOrdering Facility: [facility] Address: [address] [place] [address] Performed By: #### 2 4323-8, 71501-5, 6-3 ####[facility] LABCLIA [id number] [address] [address] [place] Sodium [Moles/Vol] 138 mmol/L Normal 136-144 [facility] Comment on above: Order Comment: Speci men Type: BLOOD SPECIMENOrdering Facility: [facility] Address: [address] [place] [address] Performed By: #### 2 4323-8, , 6-3 ####[facility] LABIA [id number] [place] [id number] [place] Urea nitrogen [Mass/Vol] 27 mg/dL High 7-21 [facility] Comment on above: Order Comment: Speci men Type: BLOOD SPECIMENOrdering Facility: [facility] Address: [address] [place] [address] Performed By: #### 2 4323-8, 99765-3, 6-3 ####[facility] LABCLIA [id number] [address] [address] [place] Magnesium SerPl-mCncon 01-01 Magnesium [Mass/Vol] 2.2 mg/dL Normal 1.7-2.3 [facility] Comment on above: Order Comment: Speci men Type: BLOOD SPECIMENOrdering Facility: [facility] Address: [address] [place], [place] [address] Performed By: #### 2 4323-8, 47555-4, 6-3 ####[facility] LABCLIA [id number] [address] [address] [place] SOCIAL WORKon 01-01-2025 SOCIAL WORK Normal [facility] TSH SerPl-aCncon 01-01-2025 TSH Qn 1.280 m[IU]/L Normal 0.270-4.200 [facility] Comment on above: Order Comment: Speci men Type: BLOOD SPECIMENOrdering Facility: [facility] Address: [address] [place] [address] Performed By: #### 2 4323-8, 46720-0, 3016-3 ####[facility] LABIA [id number] [place] [id number] [place] XR CHEST 1V FRONTAL PORTon 0 01-01-2025 XR CHEST 1V FRONTAL PORT Normal [facility] CASE MANAGEMon 12-31-2024 CASE MANAGEM Normal [facility] CBC panel Auto (Bld)on 12-31 Erythrocyte distribution width (RBC) [Ratio] 14.3 % Normal 11.5-15.0 [facility] Comment on above: Order Comment: Speci men Type: BLOOD SPECIMENOrdering Facility: [facility] Address: [address] [place] [address] Performed By: #### 5 8410-2 ####[facility] [id number] [place] [id number] [place] Hematocrit (Bld) [Volume fraction] 38.9 % Normal 36.0-46.0 [facility] Comment on above: Order Comment: Speci men Type: BLOOD SPECIMENOrdering Facility: [facility] Address: [address] [place] [address] Performed By: #### 5 8410-2 ####[facility] LABIA [id number] [place] [id number] [place] Hemoglobin (Bld) [Mass/Vol] 12.7 g/dL Normal 11.5-15.5 [facility] Comment on above: Order Comment: Speci men Type: BLOOD SPECIMENOrdering Facility: [facility] Address: [address] [place] [address] Performed By: #### 5 8410-2 ####[facility] LABCLIA [id number] [place] [address] [place] MCH (RBC) [Entitic mass] 30.4 pg Normal 26.0-34.0 [facility] Comment on above: Order Comment: Speci men Type: BLOOD SPECIMENOrdering Facility: [facility] Address: [address] [place] [address] Performed By: #### 5 8410-2 ####[facility] LABIA [id number] [place] [address] [place] MCHC (RBC) [Mass/Vol] 32.6 g/dL Normal 30.5-36.0 [facility] Comment on above: Order Comment: Speci men Type: BLOOD SPECIMENOrdering Facility: [facility] Address: [address] [place] [address] Performed By: #### 5 8410-2 ####[facility]IA [id number] [place] [address] [place] MCV (RBC) [Entitic vol] 93.1 fL Normal 80.0-100.0 [facility] Comment on above: Order Comment: Speci men Type: BLOOD SPECIMENOrdering Facility: [facility] Address: [address] [place] [address] Performed By: #### 5 8410-2 ####[facility] LABCLIA [id number] [place] [id number] [place] Nucleated RBC (Bld) [#/Vol] 10*3/uL Normal <0.01 [facility] Comment on above: Order Comment: Speci men Type: BLOOD SPECIMENOrdering Facility: [facility] Address: [address] [place] [address] Performed By: #### 5 8410-2 ####[facility] LABCLIA [id number] [address] [address] [place] Platelet mean volume (Bld) [Entitic vol] 11.1 fL Normal 9.0-12.7 [facility] Comment on above: Order Comment: Speci men Type: BLOOD SPECIMENOrdering Facility: [facility] Address: [address] [place] [address] Performed By: #### 5 8410-2 ####[facility] [id number] [place] [id number] [place] Platelets (Bld) [#/Vol] 292 10*3/uL Normal 150-400 [facility] Comment on above: Order Comment: Speci men Type: BLOOD SPECIMENOrdering Facility: [facility] Address: [address] [place] [address] Performed By: #### 5 8410-2 ####[facility] [id number] [place] [address] [place] RBC (Bld) [#/Vol] 4.18 10*6/uL Normal 3.90-5.20 [facility] Comment on above: Order Comment: Speci men Type: BLOOD SPECIMENOrdering Facility: [facility] Address: [address] [place] [address] Performed By: #### 5 8410-2 ####[facility] [id number] [place] [id number] [place] WBC (Bld) [#/Vol] 8.78 10*3/uL Normal 3.70-11.00 [facility] Comment on above: Order Comment: Speci men Type: BLOOD SPECIMENOrdering Facility: [facility] Address: [address] [place] [address] Performed By: #### 5 8410-2 ####[facility] [id number] [place] [id number] [place] CONSULT PROGon 12-31-2024 CONSULT PROG Normal [facility] Comprehensive metabolic 2000 panelon 12-31-2024 Albumin [Mass/Vol] 3.4 g/dL Low 3.9-4.9 [facility] Comment on above: Order Comment: Speci men Type: BLOOD SPECIMENOrdering Facility: [facility] Address: [address] [place] [address] Performed By: #### 2 4323-8, ####[facility] LABCLIA [id number] [address] [address] [place] ALP [Catalytic activity/Vol] 72 U/L Normal 34-123 [facility] Comment on above: Order Comment: Speci men Type: BLOOD SPECIMENOrdering Facility: [facility] Address: [address] [place] [address] Performed By: #### 2 432-8, ####[facility] LABCLIA [id number] [place] [id number] [place] ALT [Catalytic activity/Vol] 19 U/L Normal 7-38 [facility] Comment on above: Order Comment: Speci men Type: BLOOD SPECIMENOrdering Facility: [facility] Address: [address] [place] [address] Performed By: #### 2 4323-8, ####[facility] LABCLIA [id number] [place] [id number] [place] Anion gap [Moles/Vol] 12 mmol/L Normal 8-15 [facility] Comment on above: Order Comment: Speci men Type: BLOOD SPECIMENOrdering Facility: [facility] Address: [address] [place], [place] [id number] Performed By: #### 2 4323-8, ####[facility] LABCLIA [id number] [address] [place] [address] [place] AST [Catalytic activity/Vol] 16 U/L Normal 13-35 [facility] Comment on above: Order Comment: Speci men Type: BLOOD SPECIMENOrdering Facility: [facility] Address: [address] [place] [id number] Performed By: #### 2 4323-8, ####[facility] LABCLIA [id number] [address] [address] [place] Bilirubin [Mass/Vol] 0.2 mg/dL Normal 0.2-1.3 [facility] Comment on above: Order Comment: Speci men Type: BLOOD SPECIMENOrdering Facility: [facility] Address: [address] [place], [place] [address] Performed By: #### 2 432-8, ####[facility] LABCLIA [id number] [place] [id number] [place] Calcium [Mass/Vol] 9.3 mg/dL Normal 8.5-10.2 [facility] Comment on above: Order Comment: Speci men Type: BLOOD SPECIMENOrdering Facility: [facility] Address: [address] [place], [place] [address] Performed By: #### 2 4323-8, ####[facility] LABCLIA [id number] [place] [id number] [place] Chloride [Moles/Vol] 105 mmol/L Normal 98-107 [facility] Comment on above: Order Comment: Speci men Type: BLOOD SPECIMENOrdering Facility: [facility] Address: [address] [place] [address] Performed By: #### 2 4323-8, ####[facility] LABCLIA [id number] [place] [id number] [place] CO2 [Moles/Vol] 20 mmol/L Low 22-30 [facility] Comment on above: Order Comment: Speci men Type: BLOOD SPECIMENOrdering Facility: [facility] Address: [address] [place], [place] [address] Performed By: #### 2 4323-8, ####[facility] [id number] [address] [address] [place] Creatinine [Mass/Vol] 1.68 mg/dL High 0.58-0.96 [facility] Comment on above: Order Comment: Marika hammonds Type: BLOOD SPECIMENOrdering Facility: [facility] Address: [address] [place] [address] Performed By: #### 2 43238, ####[facility] [id number] [place] [address] [place] Creatinine and Glomerular filtration rate.predicted panel (S/P/Bld) 33 mL/min/1.73m??? Low >=60 [facility] Comment on above: Order Comment: Marika hammonds Type: BLOOD SPECIMENOrdering Facility: [facility] Address: [address] [place] [address] Result Comment: Maru mated Glomerular Filtration Rate [...] reflect actual GFR. Performed By: #### 2 4323-8, ####[facility] [id number] [address] [address] [place] Glucose [Mass/Vol] 107 mg/dL High 74-99 [facility] Comment on above: Order Comment: Marika hammonds Type: BLOOD SPECIMENOrdering Facility: [facility] Address: [address] [place] [address] Result Comment: The [place] [employer] (ADA) provides guidance for cutoff values for fasting glucose and random glucose. The ADA defines fasting as no caloric intake for at least 8 hours. Fasting plasma glucose results between 100 to 125 mg/dL indicate increased risk for diabetes (prediabetes).Fasting plasma glucose results greater than or equal to 126 mg/dL meet the criteria for diagnosis of diabetes. In the absence of unequivocal hyperglycemia, results should be confirmed by repeat testing. In a patient with classic symptoms of hyperglycemia or hyperglycemic crisis, random plasma glucose results greater than or equal to 200 mg/dL meet the criteria for diagnosis of diabetes.Reference: Standards of Medical Care in Diabetes 2016, [place] [employer]. Diabetes Care. 2016.39(Suppl 1). Performed By: #### 2 4323-02, ####[facility] LABCLIA [id number] [address] [address] [place] Potassium [Moles/Vol] 4.3 mmol/L Normal 3.7-5.1 [facility] Comment on above: Order Comment: Speci men Type: BLOOD SPECIMENOrdering Facility: [facility] Address: [address] [place] [address] Performed By: #### 2 4323-02, ####[facility] [id number] [address] [address] [place] Protein [Mass/Vol] 6.2 g/dL Low 6.3-8.0 [facility] Comment on above: Order Comment: Speci men Type: BLOOD SPECIMENOrdering Facility: [facility] Address: [address] [place] [address] Performed By: #### 2 4323-02, ####[facility] LABCLIA [id number] [address] [address] [place] Sodium [Moles/Vol] 137 mmol/L Normal 136-144 [facility] Comment on above: Order Comment: Speci men Type: BLOOD SPECIMENOrdering Facility: [facility] Address: [address] [place] [address] Performed By: #### 2 43209-08, ####[facility] LABCLIA [id number] [address] [address] [place] Urea nitrogen [Mass/Vol] 28 mg/dL High 7-21 [facility] Comment on above: Order Comment: Speci men Type: BLOOD SPECIMENOrdering Facility: [facility] Address: [address] [place] [address] Performed By: #### 2 4323-8, 59690-8 ####[facility] LABCLIA [id number] [place] [address] [place] Magnesium SerPl-mCncon 12-31 Magnesium [Mass/Vol] 2.2 mg/dL Normal 1.7-2.3 [facility] Comment on above: Order Comment: Speci men Type: BLOOD SPECIMENOrdering Facility: [facility] Address: [address] [place] [address] Performed By: #### 2 4323-8, 22943-9 ####[facility] LABCLIA [id number] [address] [place] CBC panel Auto (Bld)on 12-30 Erythrocyte distribution width (RBC) [Ratio] 14.4 % Normal 11.5-15.0 [facility] Comment on above: Order Comment: Speci men Type: BLOOD SPECIMENOrdering Facility: [facility] Address: [address] [place] [address] Performed By: #### 5 8410-2 ####[facility] LABCLIA [id number] [place] [address] [place] Hematocrit (Bld) [Volume fraction] 40.8 % Normal 36.0-46.0 [facility] Comment on above: Order Comment: Speci men Type: BLOOD SPECIMENOrdering Facility: [facility] Address: [address] [place] [address] Performed By: #### 5 8410-2 ####[facility] LABCLIA [id number] [place] [address] [place] Hemoglobin (Bld) [Mass/Vol] 12.9 g/dL Normal 11.5-15.5 [facility] Comment on above: Order Comment: Speci men Type: BLOOD SPECIMENOrdering Facility: [facility] Address: [address] [place] [address] Performed By: #### 5 8410-2 ####[facility] LAB[facility] [id number] [place] [address] [place] MCH (RBC) [Entitic mass] 30.4 pg Normal 26.0-34.0 [facility] Comment on above: Order Comment: Speci men Type: BLOOD SPECIMENOrdering Facility: [facility] Address: [address] [place] [address] Performed By: #### 5 8410-2 ####[facility] [id number] [place] [address] [place] MCHC (RBC) [Mass/Vol] 31.6 g/dL Normal 30.5-36.0 [facility] Comment on above: Order Comment: Speci men Type: BLOOD SPECIMENOrdering Facility: [facility] Address: [address] [place] [address] Performed By: #### 5 8410-2 ####[facility] [id number] [place] [address] [place] MCV (RBC) [Entitic vol] 96.0 fL Normal 80.0-100.0 [facility] Comment on above: Order Comment: Speci men Type: BLOOD SPECIMENOrdering Facility: [facility] Address: [address] [place] [address] Performed By: #### 5 8410-2 ####[facility] LABIA [id number] [place] [address] [place] Nucleated RBC (Bld) [#/Vol] 10*3/uL Normal <0.01 [facility] Comment on above: Order Comment: Speci men Type: BLOOD SPECIMENOrdering Facility: [facility] Address: [address] [place] [address] Performed By: #### 5 8410-2 ####[facility] LABCLIA [id number] [place] [address] [place] Platelet mean volume (Bld) [Entitic vol] 11.3 fL Normal 9.0-12.7 [facility] Comment on above: Order Comment: Speci men Type: BLOOD SPECIMENOrdering Facility: [facility] Address: [address] [place] [address] Performed By: #### 5 8410-2 ####[facility] LABCLIA [id number] [place] [address] [place] Platelets (Bld) [#/Vol] 299 10*3/uL Normal 150-400 [facility] Comment on above: Order Comment: Speci men Type: BLOOD SPECIMENOrdering Facility: [facility] Address: [address] [place] [address] Performed By: #### 5 8410-2 ####[facility] LABCLIA [id number] [place] [address] [place] RBC (Bld) [#/Vol] 4.25 10*6/uL Normal 3.90-5.20 [facility] Comment on above: Order Comment: Speci men Type: BLOOD SPECIMENOrdering Facility: [facility] Address: [address] [place] [address] Performed By: #### 5 8410-2 ####[facility] LABCLIA [id number] [place] [id number] [place] WBC (Bld) [#/Vol] 8.87 10*3/uL Normal 3.70-11.00 [facility] Comment on above: Order Comment: Speci men Type: BLOOD SPECIMENOrdering Facility: [facility] Address: [address] [place] [address] Performed By: #### 5 8410-2 ####[facility] LABCLIA [id number] [address] [address] [place] Comprehensive metabolic 2000 panelon 12-30-2024 Albumin [Mass/Vol] 3.4 g/dL Low 3.9-4.9 [facility] Comment on above: Order Comment: Speci men Type: BLOOD SPECIMENOrdering Facility: [facility] Address: [address] [place] [address] Performed By: #### 1 9123-9, 86195-4 ####[facility] LABCLIA [id number] [place] [id number] [place] ALP [Catalytic activity/Vol] 75 U/L Normal 34-123 [facility] Comment on above: Order Comment: Speci men Type: BLOOD SPECIMENOrdering Facility: [facility] Address: [address] [place] [address] Performed By: #### 1 9123-9, 19789-5 ####[facility] [id number] [place] [id number] [place] ALT [Catalytic activity/Vol] 17 U/L Normal 7-38 [facility] Comment on above: Order Comment: Speci men Type: BLOOD SPECIMENOrdering Facility: [facility] Address: [address] [place] [address] Performed By: #### 1 9123-9, 18381-3 ####[facility] [id number] [place] [id number] [place] Anion gap [Moles/Vol] 13 mmol/L Normal 8-15 [facility] Comment on above: Order Comment: Speci men Type: BLOOD SPECIMENOrdering Facility: [facility] Address: [address] [place] [address] Performed By: #### 1 9123-9, 56736-8 ####[facility] [id number] [place] [id number] [place] AST [Catalytic activity/Vol] 16 U/L Normal 13-35 [facility] Comment on above: Order Comment: Speci men Type: BLOOD SPECIMENOrdering Facility: [facility] Address: [address] [place] [address] Performed By: #### 1 23-9, ####[facility] LABCL[facility] [id number] [place] [address] [place] Bilirubin [Mass/Vol] 0.3 mg/dL Normal 0.2-1.3 [facility] Comment on above: Order Comment: Speci men Type: BLOOD SPECIMENOrdering Facility: [facility] Address: [address] [place] [address] Performed By: #### 1 9123-9, ####[facility] LABCLIA [id number] [place] [address] [place] Calcium [Mass/Vol] 9.4 mg/dL Normal 8.5-10.2 [facility] Comment on above: Order Comment: Speci men Type: BLOOD SPECIMENOrdering Facility: [facility] Address: [address] [place] [address] Performed By: #### 1 9123-9, ####[facility] [id number] [place] [address] [place] Chloride [Moles/Vol] 106 mmol/L Normal 98-107 [facility] Comment on above: Order Comment: Speci men Type: BLOOD SPECIMENOrdering Facility: [facility] Address: [address] [place] [address] Performed By: #### 1 23-9, 31934-2 ####[facility] LABCLIA [id number] [place] [id number] [place] CO2 [Moles/Vol] 20 mmol/L Low 22-30 [facility] Comment on above: Order Comment: Speci men Type: BLOOD SPECIMENOrdering Facility: [facility] Address: [address] [place] [address] Performed By: #### 1 9123-9, 74909-4 ####[facility] [id number] [place] [id number] [place] Creatinine [Mass/Vol] 1.64 mg/dL High 0.58-0.96 [facility] Comment on above: Order Comment: Speci men Type: BLOOD SPECIMENOrdering Facility: [facility] Address: [address] [place] [address] Performed By: #### 1 9123-9, ####[facility] [id number] [place] [address] [place] Creatinine and Glomerular filtration rate.predicted panel (S/P/Bld) 34 mL/min/1.73m??? Low >=60 [facility] Comment on above: Order Comment: Marika men Type: BLOOD SPECIMENOrdering Facility: [facility] Address: [address] [place] [address] Result Comment: Maru mated Glomerular Filtration Rate [...] accurately reflect actual GFR. Performed By: #### 1 9123-9, ####[facility] [id number] [place] [id number] [place] Glucose [Mass/Vol] 114 mg/dL High 74-99 [facility] Comment on above: Order Comment: Speci men Type: BLOOD SPECIMENOrdering Facility: [facility] Address: [address] [place] [address] Result Comment: The [place] [employer] (ADA) provides guidance for cutoff values for fasting glucose and random glucose. The ADA defines fasting as no caloric intake for at least 8 hours. Fasting plasma glucose results between 100 to 125 mg/dL indicate increased risk for diabetes (prediabetes).Fasting plasma glucose results greater than or equal to 126 mg/dL meet the criteria for diagnosis of diabetes. In the absence of unequivocal hyperglycemia, results should be confirmed by repeat testing. In a patient with classic symptoms of hyperglycemia or hyperglycemic crisis, random plasma glucose results greater than or equal to 200 mg/dL meet the criteria for diagnosis of diabetes.Reference: Standards of Medical Care in Diabetes 2016, [place] [employer]. Diabetes Care. 2016.39(Suppl 1). Performed By: #### 1 9, ####[facility] LABCL[facility] [id number] [place] [address] [place] Potassium [Moles/Vol] 4.5 mmol/L Normal 3.7-5.1 [facility] Comment on above: Order Comment: Speci men Type: BLOOD SPECIMENOrdering Facility: [facility] Address: [address] [place] [address] Performed By: #### 1 9123-03, ####[facility] LABCL[facility] [id number] [place] [address] [place] Protein [Mass/Vol] 6.3 g/dL Normal 6.3-8.0 [facility] Comment on above: Order Comment: Speci men Type: BLOOD SPECIMENOrdering Facility: [facility] Address: [address] [place] [address] Performed By: #### 1 9123-03, ####[facility] LABCL[facility] [id number] [address] [address] [place] Sodium [Moles/Vol] 139 mmol/L Normal 136-144 [facility] Comment on above: Order Comment: Speci men Type: BLOOD SPECIMENOrdering Facility: [facility] Address: [address] [place] [address] Performed By: #### 1 23, ####[facility] LABCL[facility] [id number] [address] [address] [place] Urea nitrogen [Mass/Vol] 32 mg/dL High 7- [facility] Comment on above: Order Comment: Speci men Type: BLOOD SPECIMENOrdering Facility: [facility] Address: [address] [place] [address] Performed By: #### 1 9123-9, 68648-8 ####[facility] [id number] [place] [id number] [place] Magnesium SerPl-mCncon 12-30 Magnesium [Mass/Vol] 2.2 mg/dL Normal 1.7-2.3 [facility] Comment on above: Order Comment: Speci men Type: BLOOD SPECIMENOrdering Facility: [facility] Address: [address] [place] [address] Performed By: #### 1 9123-9, 79410-9 ####[facility] [id number] [place] [address] [place] NURSING PROGon 12-30-2024 NURSING PROG Normal [facility] THERAPY NTon 12-30-2024 THERAPY NT Normal [facility] CBC panel Auto (Bld)on 12-29 Erythrocyte distribution width (RBC) [Ratio] 13.9 % Normal 11.5-15.0 [facility] Comment on above: Order Comment: Speci men Type: BLOOD SPECIMENOrdering Facility: [facility] Address: [address] [place] [address] Performed By: #### 5 8410-2 ####[facility] LABCL[facility] [id number] [place] [id number] [place] Hematocrit (Bld) [Volume fraction] 40.9 % Normal 36.0-46.0 [facility] Comment on above: Order Comment: Speci men Type: BLOOD SPECIMENOrdering Facility: [facility] Address: [address] [place] [address] Performed By: #### 5 8410-2 ####[facility] [id number] [place] [address] [place] Hemoglobin (Bld) [Mass/Vol] 13.4 g/dL Normal 11.5-15.5 [facility] Comment on above: Order Comment: Speci men Type: BLOOD SPECIMENOrdering Facility: [facility] Address: [address] [place] [address] Performed By: #### 5 8410-2 ####[facility] [id number] [place] [address] [place] MCH (RBC) [Entitic mass] 30.6 pg Normal 26.0-34.0 [facility] Comment on above: Order Comment: Speci men Type: BLOOD SPECIMENOrdering Facility: [facility] Address: [address] [place] [address] Performed By: #### 5 8410-2 ####[facility] [id number] [place] [address] [place] MCHC (RBC) [Mass/Vol] 32.8 g/dL Normal 30.5-36.0 [facility] Comment on above: Order Comment: Speci men Type: BLOOD SPECIMENOrdering Facility: [facility] [facility] Address: [address] [place] [address] Performed By: #### 5 8410-2 ####[facility] LABIA [id number] [place] [address] [place] MCV (RBC) [Entitic vol] 93.4 fL Normal 80.0-100.0 C [facility] Comment on above: Order Comment: Speci men Type: BLOOD SPECIMENOrdering Facility: [facility] Address: [address] [place] [address] Performed By: #### 5 8410-2 ####[facility] LABIA [id number] [place] [address] [place] Nucleated RBC (Bld) [#/Vol] 10*3/uL Normal <0.01 [facility] Comment on above: Order Comment: Speci men Type: BLOOD SPECIMENOrdering Facility: [facility] Address: [address] [place] [address] Performed By: #### 5 8410-2 ####[facility] LABCLIA [id number] [facility] [place] [address] [place] Platelet mean volume (Bld) [Entitic vol] 10.5 fL Normal 9.0-12.7 [facility] Comment on above: Order Comment: Speci men Type: BLOOD SPECIMENOrdering Facility: [facility] Address: [address] [place] [address] Performed By: #### 5 8410-2 ####[facility] LABCLIA [id number] [place] [address] [place] Platelets (Bld) [#/Vol] 333 10*3/uL Normal 150-400 [facility] Comment on above: Order Comment: Speci men Type: BLOOD SPECIMENOrdering Facility: [facility] Address: [address] [place] [address] Performed By: #### 5 8410-2 ####[facility] LABCLIA [id number] [place] [address] [place] RBC (Bld) [#/Vol] 4.38 10*6/uL Normal 3.90-5.20 [facility] Comment on above: Order Comment: Speci men Type: BLOOD SPECIMENOrdering Facility: [facility] Address: [address] [place] [address] Performed By: #### 5 8410-2 ####[facility] LABCLIA [id number] [place] [address] [place] WBC (Bld) [#/Vol] 9.50 10*3/uL Normal 3.70-11.00 [facility] Comment on above: Order Comment: Speci men Type: BLOOD SPECIMENOrdering Facility: [facility] Address: [address] [place], [place] [address] Performed By: #### 5 8410-2 ####[facility] LABCLIA [id number] [address] [place] [address] [place] Comprehensive metabolic 2000 panelon 12-29-2024 Albumin [Mass/Vol] 3.3 g/dL Low 3.9-4.9 [facility] Comment on above: Order Comment: Speci men Type: BLOOD SPECIMENOrdering Facility: [facility] Address: [address] [place], [place] [address] Performed By: #### 2 4323-8, ####[facility] LABCLIA [id number] [address] [place] [address] [place] ALP [Catalytic activity/Vol] 61 U/L Normal 34-123 [facility] Comment on above: Order Comment: Speci men Type: BLOOD SPECIMENOrdering Facility: [facility] Address: [address] [place], [place] [address] Performed By: #### 2 4323-8, ####[facility] LABCLIA [id number] [address], [facility] [place] ALT [Catalytic activity/Vol] 18 U/L Normal 7-38 [facility] Comment on above: Order Comment: Speci men Type: BLOOD SPECIMENOrdering Facility: [facility] Address: [address] [place], [place] [address] Performed By: #### 2 4323-8, ####[facility] LABCLIA [id number] [address] [place] [address] [place] Anion gap [Moles/Vol] 11 mmol/L Normal 8-15 [facility] Comment on above: Order Comment: Speci men Type: BLOOD SPECIMENOrdering Facility: [facility] Address: [address] [place], [place] [address] Performed By: #### 2 4323-8, ####[facility] LABCLIA [id number] [address] [address] [place] AST [Catalytic activity/Vol] 15 U/L Normal 13-35 [facility] Comment on above: Order Comment: Speci men Type: BLOOD SPECIMENOrdering Facility: [facility] Address: [address] [place] [address] Performed By: #### 2 432-8, ####[facility] LABCLIA [id number] [address] [address] [place] Bilirubin [Mass/Vol] 0.3 mg/dL Normal 0.2-1.3 [facility] Comment on above: Order Comment: Speci men Type: BLOOD SPECIMENOrdering Facility: [facility] Address: [address] [place] [address] Performed By: #### 2 43209-08, ####[facility] LABCLIA [id number] [place] [id number] [place] Calcium [Mass/Vol] 9.4 mg/dL Normal 8.5-10.2 [facility] Comment on above: Order Comment: Speci men Type: BLOOD SPECIMENOrdering Facility: [facility] Address: [address] [place] [address] Performed By: #### 2 4328, ####[facility] LABCLIA [id number] [address] [address] [place] Chloride [Moles/Vol] 107 mmol/L Normal 98-107 [facility] Comment on above: Order Comment: Speci men Type: BLOOD SPECIMENOrdering Facility: [facility] Address: [address] [place], [place] [address] Performed By: #### 2 4323-8, ####[facility] LABCLIA [id number] [address] [address] [place] CO2 [Moles/Vol] 21 mmol/L Low 22-30 [facility] Comment on above: Order Comment: Speci men Type: BLOOD SPECIMENOrdering Facility: [facility] Address: [address] [place] [address] Performed By: #### 2 4323-8, ####[facility] LABCLIA [id number] [place] [id number] [place] Creatinine [Mass/Vol] 1.74 mg/dL High 0.58-0.96 [facility] Comment on above: Order Comment: Speci men Type: BLOOD SPECIMENOrdering Facility: [facility] Address: [address] [place] [address] Performed By: #### 2 43238, ####[facility] LABCLIA [id number] [place] [address] [place] Creatinine and Glomerular filtration rate.predicted panel (S/P/Bld) 32 mL/min/1.73m??? Low >=60 [facility] Comment on above: Order Comment: Speci men Type: BLOOD SPECIMENOrdering Facility: [facility] Address: [address] [place] [address] Result Comment: Maru mated Glomerular Filtration Rate [...] reflect actual GFR. Performed By: #### 2 4323-8, ####[facility] LABCLIA [id number] [place] [id number] [place] Glucose [Mass/Vol] 98 mg/dL Normal 74-99 [facility] Comment on above: Order Comment: Speci men Type: BLOOD SPECIMENOrdering Facility: [facility] Address: [address] [place] [id number] Result Comment: The [place] [employer] (ADA) provides guidance for cutoff values for fasting glucose and random glucose. The ADA defines fasting as no caloric intake for at least 8 hours. Fasting plasma glucose results between 100 to 125 mg/dL indicate increased risk for diabetes (prediabetes).Fasting plasma glucose results greater than or equal to 126 mg/dL meet the criteria for diagnosis of diabetes. In the absence of unequivocal hyperglycemia, results should be confirmed by repeat testing. In a patient with classic symptoms of hyperglycemia or hyperglycemic crisis, random plasma glucose results greater than or equal to 200 mg/dL meet the criteria for diagnosis of diabetes.Reference: Standards of Medical Care in Diabetes 2016, [place] [employer]. Diabetes Care. 2016.39(Suppl 1). Performed By: #### 2 4323-8, ####[facility] LABIA [id number] [place] [address] [place] Potassium [Moles/Vol] 4.7 mmol/L Normal 3.7-5.1 [facility] Comment on above: Order Comment: Speci men Type: BLOOD SPECIMENOrdering Facility: [facility] Address: [address] [place] [id number] Performed By: #### 2 4323-, ####[facility] LABIA [id number] [place] [address] [place] Protein [Mass/Vol] 6.3 g/dL Normal 6.3-8.0 [facility] Comment on above: Order Comment: Speci men Type: BLOOD SPECIMENOrdering Facility: [facility] Address: [address] [place] [id number] Performed By: #### 2 3, ####[facility] LABIA [id number] [place] [id number] [place] Sodium [Moles/Vol] 139 mmol/L Normal 136-144 [facility] Comment on above: Order Comment: Speci men Type: BLOOD SPECIMENOrdering Facility: [facility] Address: [address] [place] [address] Performed By: #### 2 4323-8, 87014-4 ####[facility] LABCLIA [id number] [place] [id number] [place] Urea nitrogen [Mass/Vol] 37 mg/dL High 7-21 [facility] Comment on above: Order Comment: Speci men Type: BLOOD SPECIMENOrdering Facility: [facility] Address: [address] [place] [address] Performed By: #### 2 4323-8, 56343-0 ####[facility] LABIA [id number] [place] [id number] [place] Magnesium SerPl-mCncon 12-29 Magnesium [Mass/Vol] 2.2 mg/dL Normal 1.7-2.3 [facility] Comment on above: Order Comment: Speci men Type: BLOOD SPECIMENOrdering Facility: [facility] Address: [address] [place] [address] Performed By: #### 2 4323-8, 64461-2 ####[facility] LABIA [id number] [place] [address] [place] CASE MANAGEMon 12-28-2024 CASE MANAGEM Normal [facility] CBC panel Auto (Bld)on 12-28 Erythrocyte distribution width (RBC) [Ratio] 13.9 % Normal 11.5-15.0 [facility] Comment on above: Order Comment: Speci men Type: BLOOD SPECIMENOrdering Facility: [facility] Address: [address] [place] [address] Performed By: #### 5 8410-2 ####[facility] LABIA [id number] [place] [id number] [place] Hematocrit (Bld) [Volume fraction] 41.0 % Normal 36.0-46.0 [facility] Comment on above: Order Comment: Speci men Type: BLOOD SPECIMENOrdering Facility: [facility] Address: [address] [place] [address] Performed By: #### 5 8410-2 ####[facility] LABCLIA [id number] [place] [address] [place] Hemoglobin (Bld) [Mass/Vol] 13.2 g/dL Normal 11.5-15.5 [facility] Comment on above: Order Comment: Speci men Type: BLOOD SPECIMENOrdering Facility: [facility] Address: [address] [place] [address] Performed By: #### 5 8410-2 ####[facility] LABCLIA [id number] [place] [address] [place] MCH (RBC) [Entitic mass] 30.5 pg Normal 26.0-34.0 [facility] Comment on above: Order Comment: Speci men Type: BLOOD SPECIMENOrdering Facility: [facility] Address: [address] [place] [address] Performed By: #### 5 8410-2 ####[facility] LABCLIA [id number] [place] [address] [place] MCHC (RBC) [Mass/Vol] 32.2 g/dL Normal 30.5-36.0 [facility] Comment on above: Order Comment: Speci men Type: BLOOD SPECIMENOrdering Facility: [facility] Address: [address] [place] [address] Performed By: #### 5 8410-2 ####[facility] LABCLIA [id number] [place] [address] [place] MCV (RBC) [Entitic vol] 94.7 fL Normal 80.0-100.0 C [facility] Comment on above: Order Comment: Speci men Type: BLOOD SPECIMENOrdering Facility: [facility] Address: [address] [place] [address] Performed By: #### 5 8410-2 ####[facility] LABCLIA [id number] [address] [address] [place] Nucleated RBC (Bld) [#/Vol] 10*3/uL Normal <0.01 [facility] Comment on above: Order Comment: Speci men Type: BLOOD SPECIMENOrdering Facility: [facility] Address: [address] [place] [address] Performed By: #### 5 8410-2 ####[facility] LABIA [id number] [place] [address] [place] Platelet mean volume (Bld) [Entitic vol] 11.6 fL Normal 9.0-12.7 [facility] Comment on above: Order Comment: Speci men Type: BLOOD SPECIMENOrdering Facility: [facility] Address: [address] [place] [address] Performed By: #### 5 8410-2 ####[facility] LABIA [id number] [place] [address] [place] Platelets (Bld) [#/Vol] 309 10*3/uL Normal 150-400 [facility] Comment on above: Order Comment: Speci men Type: BLOOD SPECIMENOrdering Facility: [facility] Address: [address] [place] [address] Performed By: #### 5 8410-2 ####[facility] LABIA [id number] [place] [address] [place] RBC (Bld) [#/Vol] 4.33 10*6/uL Normal 3.90-5.20 [facility] Comment on above: Order Comment: Speci men Type: BLOOD SPECIMENOrdering Facility: [facility] Address: [address] [place] [address] Performed By: #### 5 8410-2 ####[facility] LABIA [id number] [place] [id number] [place] WBC (Bld) [#/Vol] 8.53 10*3/uL Normal 3.70-11.00 [facility] Comment on above: Order Comment: Speci men Type: BLOOD SPECIMENOrdering Facility: [facility] Address: [address] [place] [address] Performed By: #### 5 8410-2 ####[facility] LABCLIA [id number] [place] [address] [place] CONSULT PROGon 12-28-2024 CONSULT PROG Normal [facility] CONSULT PROG Normal [facility] Comprehensive metabolic 2000 panelon 12-28-2024 Albumin [Mass/Vol] 3.3 g/dL Low 3.9-4.9 [facility] Comment on above: Order Comment: Speci men Type: BLOOD SPECIMENOrdering Facility: [facility] Address: [address] [place] [address] Performed By: #### 1 9123-9, 73046-1 ####[facility] LABCLIA [id number] [address], [facility]95 [place] ALP [Catalytic activity/Vol] 62 U/L Normal 34-123 [facility] Comment on above: Order Comment: Speci men Type: BLOOD SPECIMENOrdering Facility: [facility] Address: [address] [place] [address] Performed By: #### 1 9123-9, 31015-3 ####[facility] LABCLIA [id number] [address], [facility]95 [place] ALT [Catalytic activity/Vol] 16 U/L Normal 7-38 [facility] Comment on above: Order Comment: Speci men Type: BLOOD SPECIMENOrdering Facility: [facility] Address: [address] [place] [address] Performed By: #### 1 9123-9, 17353-3 ####[facility] LABCLIA [id number] [address], [facility]95 [place] Anion gap [Moles/Vol] 13 mmol/L Normal 8-15 [facility] Comment on above: Order Comment: Speci men Type: BLOOD SPECIMENOrdering Facility: [facility] Address: [address] [place], [place] [address] Performed By: #### 1 9123-9, ####[facility]CLIA [id number] [facility] [address] [address] [place] AST [Catalytic activity/Vol] 14 U/L Normal 13-35 [facility] Comment on above: Order Comment: Speci men Type: BLOOD SPECIMENOrdering Facility: [facility] Address: [address] [place] [address] Performed By: #### 1 9123-9, ####[facility] LABCLIA [id number] [place] [id number] [place] Bilirubin [Mass/Vol] 0.4 mg/dL Normal 0.2-1.3 [facility] Comment on above: Order Comment: Speci men Type: BLOOD SPECIMENOrdering Facility: [facility] Address: [address] [place], [place] [address] Performed By: #### 1 9123-9, ####[facility] LABCLIA [id number] [facility] [place] [id number] [place] Calcium [Mass/Vol] 9.5 mg/dL Normal 8.5-10.2 [facility] Comment on above: Order Comment: Speci men Type: BLOOD SPECIMENOrdering Facility: [facility] Address: [address] [place], [place] [address] Performed By: #### 1 9123-9, ####[facility] LABCLIA [id number] [place] [id number] [place] Chloride [Moles/Vol] 104 mmol/L Normal 98-107 [facility] Comment on above: Order Comment: Speci men Type: BLOOD SPECIMENOrdering Facility: [facility] Address: [address] [place], [place] [address] Performed By: #### 1 9123-9, 75557-1 ####[facility] LABIA [id number] [place] [id number] [place] CO2 [Moles/Vol] 20 mmol/L Low 22-30 [facility] Comment on above: Order Comment: Speci men Type: BLOOD SPECIMENOrdering Facility: [facility] Address: [address] [place] [address] Performed By: #### 1 9123-9, 56875-6 ####[facility] LABIA [id number] [place] [id number] [place] Creatinine [Mass/Vol] 1.77 mg/dL High 0.58-0.96 [facility] Comment on above: Order Comment: Speci men Type: BLOOD SPECIMENOrdering Facility: [facility] Address: [address] [place] [address] Performed By: #### 1 9123-9, 52501-9 ####[facility] LABIA [id number] [place] [address] [place] Creatinine and Glomerular filtration rate.predicted panel (S/P/Bld) 31 mL/min/1.73m??? Low >=60 [facility] Comment on above: Order Comment: Speci men Type: BLOOD SPECIMENOrdering Facility: [facility] Address: [address] [place] [address] Result Comment: Maru mated Glomerular Filtration Rate [...] accurately reflect actual GFR. Performed By: #### 1 9123-9, 45701-2 ####[facility] LABIA [id number] [place] [address] [place] Glucose [Mass/Vol] 90 mg/dL Normal 74-99 [facility] Comment on above: Order Comment: Speci men Type: BLOOD SPECIMENOrdering Facility: [facility] Address: [address] [place] [address] Result Comment: The [place] [employer] (ADA) provides guidance for cutoff values for fasting glucose and random glucose. The ADA defines fasting as no caloric intake for at least 8 hours. Fasting plasma glucose results between 100 to 125 mg/dL indicate increased risk for diabetes (prediabetes).Fasting plasma glucose results greater than or equal to 126 mg/dL meet the criteria for diagnosis of diabetes. In the absence of unequivocal hyperglycemia, results should be confirmed by repeat testing. In a patient with classic symptoms of hyperglycemia or hyperglycemic crisis, random plasma glucose results greater than or equal to 200 mg/dL meet the criteria for diagnosis of diabetes.Reference: Standards of Medical Care in Diabetes 2016, [place] [employer]. Diabetes Care. 2016.39(Suppl 1). Performed By: #### 1 9123-9, 97969-5 ####[facility] LABIA [id number] [place] [address] [place] Potassium [Moles/Vol] 4.2 mmol/L Normal 3.7-5.1 [facility] Comment on above: Order Comment: Speci men Type: BLOOD SPECIMENOrdering Facility: [facility] Address: [address] [place] [address] Performed By: #### 1 9123-9, ####[facility] LABIA [id number] [place] [id number] [place] Protein [Mass/Vol] 6.4 g/dL Normal 6.3-8.0 [facility] Comment on above: Order Comment: Speci men Type: BLOOD SPECIMENOrdering Facility: [facility] Address: [address] [place] [address] Performed By: #### 1 9123-9, ####[facility] LABCLIA [id number] [place] [id number] [place] Sodium [Moles/Vol] 137 mmol/L Normal 136-144 [facility] Comment on above: Order Comment: Speci men Type: BLOOD SPECIMENOrdering Facility: [facility] Address: [address] [place] [address] Performed By: #### 1 9123-9, 16919-0 ####[facility] LABCLIA [id number] [place] [id number] [place] Urea nitrogen [Mass/Vol] 37 mg/dL High 7-21 [facility] Comment on above: Order Comment: Speci men Type: BLOOD SPECIMENOrdering Facility: [facility] Address: [address] [place] [address] Performed By: #### 1 9123-9, 94977-9 ####[facility] [id number] [place] [id number] [place] Magnesium SerPl-mCncon 12-28 Magnesium [Mass/Vol] 2.2 mg/dL Normal 1.7-2.3 [facility] Comment on above: Order Comment: Speci men Type: BLOOD SPECIMENOrdering Facility: [facility] Address: [address] [place] [address] Performed By: #### 1 9123-9, 72902-4 ####[facility] [id number] [place] [id number] [place] NUTRITIONon 12-28-2024 NUTRITION Normal [facility] XR CHEST 1V FRONTALon 2024 XR CHEST 1V FRONTAL Normal [facility] CBC panel Auto (Bld)on 12-27 Erythrocyte distribution width (RBC) [Ratio] 13.9 % Normal 11.5-15.0 [facility] Comment on above: Order Comment: Speci men Type: BLOOD SPECIMENOrdering Facility: [facility] Address: [address] [place] [address] Performed By: #### 5 8410-2 ####[facility] LABCLIA [id number] [place] [address] [place] Hematocrit (Bld) [Volume fraction] 42.4 % Normal 36.0-46.0 [facility] Comment on above: Order Comment: Speci men Type: BLOOD SPECIMENOrdering Facility: [facility] Address: [address] [place] [address] Performed By: #### 5 8410-2 ####[facility] [id number] [place] [address] [place] Hemoglobin (Bld) [Mass/Vol] 13.2 g/dL Normal 11.5-15.5 [facility] Comment on above: Order Comment: Speci men Type: BLOOD SPECIMENOrdering Facility: [facility] Address: [address] [place] [address] Performed By: #### 5 8410-2 ####[facility] [id number] [place] [address] [place] MCH (RBC) [Entitic mass] 29.9 pg Normal 26.0-34.0 [facility] Comment on above: Order Comment: Speci men Type: BLOOD SPECIMENOrdering Facility: [facility] Address: [address] [place] [address] Performed By: #### 5 8410-2 ####[facility] [id number] [place] [address] [place] MCHC (RBC) [Mass/Vol] 31.1 g/dL Normal 30.5-36.0 [facility] Comment on above: Order Comment: Speci men Type: BLOOD SPECIMENOrdering Facility: [facility] Address: [address] [place] [address] Performed By: #### 5 8410-2 ####[facility] [id number] [place] [address] [place] MCV (RBC) [Entitic vol] 96.1 fL Normal 80.0-100.0 C [facility] Comment on above: Order Comment: Speci men Type: BLOOD SPECIMENOrdering Facility: [facility] Address: [address] [place] [address] Performed By: #### 5 8410-2 ####[facility] LABCLIA [id number] [place] [address] [place] Nucleated RBC (Bld) [#/Vol] 10*3/uL Normal <0.01 [facility] Comment on above: Order Comment: Speci men Type: BLOOD SPECIMENOrdering Facility: [facility] Address: [address] [place] [address] Performed By: #### 5 8410-2 ####[facility] [id number] [place] [address] [place] Platelet mean volume (Bld) [Entitic vol] 12.0 fL Normal 9.0-12.7 [facility] Comment on above: Order Comment: Speci men Type: BLOOD SPECIMENOrdering Facility: [facility] Address: [address] [place] [address] Performed By: #### 5 8410-2 ####[facility] [id number] [place] [address] [place] Platelets (Bld) [#/Vol] 319 10*3/uL Normal 150-400 [facility] Comment on above: Order Comment: Speci men Type: BLOOD SPECIMENOrdering Facility: [facility] Address: [address] [place] [address] Performed By: #### 5 8410-2 ####[facility] [id number] [place] [address] [place] RBC (Bld) [#/Vol] 4.41 10*6/uL Normal 3.90-5.20 [facility] [facility] Comment on above: Order Comment: Speci men Type: BLOOD SPECIMENOrdering Facility: [facility] Address: [address] [place] [address] Performed By: #### 5 8410-2 ####[facility] LABCLIA [id number] [place] [address] [place] WBC (Bld) [#/Vol] 9.66 10*3/uL Normal 3.70-11.00 [facility] Comment on above: Order Comment: Speci men Type: BLOOD SPECIMENOrdering Facility: [facility] Address: [address] [place] [address] Performed By: #### 5 8410-2 ####[facility] LABCLIA [id number] [place] [address] [place] CONSULTon 12-27-2024 CONSULT Normal [facility] CONSULT Normal [facility] metabolic 2000 panelon 12-27-2024 Albumin [Mass/Vol] 3.3 g/dL Low 3.9-4.9 [facility] Comment on above: Order Comment: Speci men Type: BLOOD SPECIMENOrdering Facility: [facility] Address: [address] [place] [address] Performed By: #### 2 4323-8, ####[facility] LABCLIA [id number] [place] [address] [place] ALP [Catalytic activity/Vol] 67 U/L Normal 34-123 [facility] Comment on above: Order Comment: Speci men Type: BLOOD SPECIMENOrdering Facility: [facility] Address: [address] [place] [address] Performed By: #### 2 4323-8, ####[facility] LABCLIA [id number] [place] [address] [place] ALT [Catalytic activity/Vol] 15 U/L Normal 7-38 [facility] Comment on above: Order Comment: Speci men Type: BLOOD SPECIMENOrdering Facility: [facility] Address: [address] [id number] Performed By: #### 2 432-8, ####[facility] LABCLIA [id number] [address] [address] [place] Anion gap [Moles/Vol] 13 mmol/L Normal 8-15 [facility] Comment on above: Order Comment: Speci men Type: BLOOD SPECIMENOrdering Facility: [facility] Address: [address] [place], [place] [address] Performed By: #### 2 4323-02, ####[facility] LABCLIA [id number] [address] [address] [place] AST [Catalytic activity/Vol] 14 U/L Normal 13-35 [facility] Comment on above: Order Comment: Speci men Type: BLOOD SPECIMENOrdering Facility: [facility] Address: [address] [place], [place] [address] Performed By: #### 2 4323-02, ####[facility] LABCLIA [id number] [address] [address] [place] Bilirubin [Mass/Vol] 0.3 mg/dL Normal 0.2-1.3 [facility] Comment on above: Order Comment: Speci men Type: BLOOD SPECIMENOrdering Facility: [facility] Address: [address] [place], [place] [address] Performed By: #### 2 4323-02, ####[facility] LABCLIA [id number] [address] [address] [place] Calcium [Mass/Vol] 9.3 mg/dL Normal 8.5-10.2 [facility] Comment on above: Order Comment: Speci men Type: BLOOD SPECIMENOrdering Facility: [facility] Address: [address] [place], [place] [address] Performed By: #### 2 4323-02, ####[facility] LABCLIA [id number] [place] [id number] [place] Chloride [Moles/Vol] 108 mmol/L High 98-107 [facility] Comment on above: Order Comment: Speci men Type: BLOOD SPECIMENOrdering Facility: [facility] Address: [address] [place] [address] Performed By: #### 2 4323-8, 82688-8 ####[facility] LABIA [id number] [place] [address] [place] CO2 [Moles/Vol] 17 mmol/L Low 22-30 [facility] Comment on above: Order Comment: Speci men Type: BLOOD SPECIMENOrdering Facility: [facility] Address: [address] [place] [address] Performed By: #### 2 4323-8, 27935-5 ####[facility] LABIA [id number] [place] [address] [place] Creatinine [Mass/Vol] 1.81 mg/dL High 0.58-0.96 [facility] Comment on above: Order Comment: Speci men Type: BLOOD SPECIMENOrdering Facility: [facility] Address: [address] [place] [address] Performed By: #### 2 4323-8, 14607-2 ####[facility] [id number] [place] [address] [place] Creatinine and Glomerular filtration rate.predicted panel (S/P/Bld) 30 mL/min/1.73m??? Low >=60 [facility] Comment on above: Order Comment: Speci men Type: BLOOD SPECIMENOrdering Facility: [facility] Address: [address] [place] [address] Result Comment: Maru mated Glomerular Filtration Rate [...] reflect actual GFR. Performed By: #### 2 4328, ####[facility] LABCLIA [id number] [facility]ENTERshopandsaveCENTINELA FRE[facility], CENT[facility]ELA CAMPUSK [id number] [place] [address] [place] Glucose [Mass/Vol] 116 mg/dL High 74-99 [facility] Comment on above: Order Comment: Marika hammonds Type: BLOOD SPECIMENOrdering Facility: [facility] Address: [address] [id number] Result Comment: The [place] [employer] (ADA) provides guidance for cutoff values for fasting glucose and random glucose. The ADA defines fasting as no caloric intake for at least 8 hours. Fasting plasma glucose results between 100 to 125 mg/dL indicate increased risk for diabetes (prediabetes).Fasting plasma glucose results greater than or equal to 126 mg/dL meet the criteria for diagnosis of diabetes. In the absence of unequivocal hyperglycemia, results should be confirmed by repeat testing. In a patient with classic symptoms of hyperglycemia or hyperglycemic crisis, random plasma glucose results greater than or equal to 200 mg/dL meet the criteria for diagnosis of diabetes.Reference: Standards of Medical Care in Diabetes 2016, [place] [employer]. Diabetes Care. 2016.39(Suppl 1). Performed By: #### 2 4323-02, ####[facility] LABCLIA [id number] [facility]ENTERshopandsaveCENTINELA [facility]REEM[facility] CENTINELA CAMPUSK [address] [address] [place] Potassium [Moles/Vol] 4.4 mmol/L Normal 3.7-5.1 [facility] Comment on above: Order Comment: Marika hammonds Type: BLOOD SPECIMENOrdering Facility: [facility] Address: [address] [place] [address] Performed By: #### 2 43209-08, ####[facility] LABCLIA [id number] [facility]D [facility] [address] [place] Protein [Mass/Vol] 6.3 g/dL Normal 6.3-8.0 [facility] Comment on above: Order Comment: Speci men Type: BLOOD SPECIMENOrdering Facility: [facility] Address: [address] [place] [address] Performed By: #### 2 4323-8, ####[facility] LABCLIA [id number] [address] [address] [place] Sodium [Moles/Vol] 138 mmol/L Normal 136-144 [facility] Comment on above: Order Comment: Speci men Type: BLOOD SPECIMENOrdering Facility: [facility] Address: [address] [place], [place] [address] Performed By: #### 2 4323-8, ####[facility] LABIA [id number] [place] [id number] [place] Urea nitrogen [Mass/Vol] 35 mg/dL High 7-21 [facility] Comment on above: Order Comment: Speci men Type: BLOOD SPECIMENOrdering Facility: [facility] Address: [address] [place], [place] [address] Performed By: #### 2 4323-8, ####[facility] LABIA [id number] [place] [id number] [place] Magnesium SerPl-mCncon 12-27 Magnesium [Mass/Vol] 2.2 mg/dL Normal 1.7-2.3 [facility] Comment on above: Order Comment: Speci men Type: BLOOD SPECIMENOrdering Facility: [facility] Address: [address] [place], [place] [address] Performed By: #### 2 4323-8, 19293-0 ####[facility] LABIA [id number] [address] [address] [place] NUTRITIONon 12-27-2024 NUTRITION Normal [facility] XR CHEST 1V FRONTAL PORTon 0 12-27-2024 XR CHEST 1V FRONTAL PORT Normal [facility] CBC panel Auto (Bld)on 12-26 Erythrocyte distribution width (RBC) [Ratio] 13.7 % Normal 11.5-15.0 [facility] Comment on above: Order Comment: Speci men Type: BLOOD SPECIMENOrdering Facility: [facility] Address: [address] [place] [address] Performed By: #### 5 8410-2 ####[facility] LABIA [id number] [place] [address] [place] Hematocrit (Bld) [Volume fraction] 41.6 % Normal 36.0-46.0 [facility] Comment on above: Order Comment: Speci men Type: BLOOD SPECIMENOrdering Facility: [facility] Address: [address] [place] [address] Performed By: #### 5 8410-2 ####[facility] LABIA [id number] [place] [address] [place] Hemoglobin (Bld) [Mass/Vol] 13.7 g/dL Normal 11.5-15.5 [facility] Comment on above: Order Comment: Speci men Type: BLOOD SPECIMENOrdering Facility: [facility] Address: [address] [place] [address] Performed By: #### 5 8410-2 ####[facility] LABIA [id number] [place] [address] [place] MCH (RBC) [Entitic mass] 30.6 pg Normal 26.0-34.0 [facility] Comment on above: Order Comment: Speci men Type: BLOOD SPECIMENOrdering Facility: [facility] Address: [address] [place] [address] Performed By: #### 5 8410-2 ####[facility] LABIA [id number] [place] [address] [place] MCHC (RBC) [Mass/Vol] 32.9 g/dL Normal 30.5-36.0 [facility] Comment on above: Order Comment: Speci men Type: BLOOD SPECIMENOrdering Facility: [facility] Address: [address] [place] [address] Performed By: #### 5 8410-2 ####[facility] LABCLIA [id number] [place] [address] [place] MCV (RBC) [Entitic vol] 93.1 fL Normal 80.0-100.0 C [facility] Comment on above: Order Comment: Speci men Type: BLOOD SPECIMENOrdering Facility: [facility] Address: [address] [place] [address] Performed By: #### 5 8410-2 ####[facility] LABCLIA [id number] [place] [address] [place] Nucleated RBC (Bld) [#/Vol] 10*3/uL Normal <0.01 [facility] Comment on above: Order Comment: Speci men Type: BLOOD SPECIMENOrdering Facility: [facility] Address: [address] [place] [address] Performed By: #### 5 8410-2 ####[facility] LABIA [id number] [place] [address] [place] Platelet mean volume (Bld) [Entitic vol] 11.4 fL Normal 9.0-12.7 [facility] Comment on above: Order Comment: Speci men Type: BLOOD SPECIMENOrdering Facility: [facility] Address: [address] [place] [address] Performed By: #### 5 8410-2 ####[facility] LABCLIA [id number] [place] [address] [place] Platelets (Bld) [#/Vol] 349 10*3/uL Normal 150-400 [facility] Comment on above: Order Comment: Speci men Type: BLOOD SPECIMENOrdering Facility: [facility] Address: [address] [place] [address] Performed By: #### 5 8410-2 ####[facility] LABCLIA [id number] [address] [place] [address] [place] RBC (Bld) [#/Vol] 4.47 10*6/uL Normal 3.90-5.20 [facility] Comment on above: Order Comment: Speci men Type: BLOOD SPECIMENOrdering Facility: [facility] Address: [address] [place] [address] Performed By: #### 5 8410-2 ####[facility] LABIA [id number] [address] [address] [place] WBC (Bld) [#/Vol] 10.15 10*3/uL Normal 3.70-11.00 [facility] Comment on above: Order Comment: Speci men Type: BLOOD SPECIMENOrdering Facility: [facility] Address: [address] [place] [address] Performed By: #### 5 8410-2 ####[facility] LABIA [id number] [address] [address] [place] [facility] Comprehensive metabolic 2000 panelon 12-26-2024 Albumin [Mass/Vol] 3.5 g/dL Low 3.9-4.9 [facility] Comment on above: Order Comment: Speci men Type: BLOOD SPECIMENOrdering Facility: [facility] Address: [address] [place], [place] [address] Performed By: #### 2 4323-8, 44740-6 ####[facility] LABIA [id number] [address] [place] [address] [place] ALP [Catalytic activity/Vol] 80 U/L Normal 34-123 [facility] Comment on above: Order Comment: Speci men Type: BLOOD SPECIMENOrdering Facility: [facility] Address: [address] [place], [place] [address] Performed By: #### 2 4323-8, 13200-6 ####[facility] LABIA [id number] [place] [address] [id number] [address] [place] ALT [Catalytic activity/Vol] 22 U/L Normal 7-38 [facility] Comment on above: Order Comment: Speci men Type: BLOOD SPECIMENOrdering Facility: [facility] Address: [address] [place], [place] [address] Performed By: #### 2 4323-8, ####[facility] LABCLIA [id number] [facility] [address] [place] [address] [place] Anion gap [Moles/Vol] 14 mmol/L Normal 8-15 [facility] Comment on above: Order Comment: Speci men Type: BLOOD SPECIMENOrdering Facility: [facility] Address: [address] [place] [address] Performed By: #### 2 432-8, ####[facility] LABCLIA [id number] [place] [id number] [place] AST [Catalytic activity/Vol] 17 U/L Normal 13-35 [facility] Comment on above: Order Comment: Speci men Type: BLOOD SPECIMENOrdering Facility: [facility] Address: [address] [place] [address] Performed By: #### 2 4328, ####[facility] LABCLIA [id number] [address] [place] [address] [place] Bilirubin [Mass/Vol] 0.2 mg/dL Normal 0.2-1.3 [facility] Comment on above: Order Comment: Speci men Type: BLOOD SPECIMENOrdering Facility: [facility] Address: [address] [place] [address] Performed By: #### 2 4323-8, ####[facility] LABCLIA [id number] [facility] [address] [place] [address] [place] Calcium [Mass/Vol] 9.4 mg/dL Normal 8.5-10.2 [facility] Comment on above: Order Comment: Speci men Type: BLOOD SPECIMENOrdering Facility: [facility] Address: [address] [place], [place] [address] Performed By: #### 2 4323-8, ####[facility] LABCLIA [id number] [address] [address] [place] Chloride [Moles/Vol] 107 mmol/L Normal 98-107 [facility] Comment on above: Order Comment: Speci men Type: BLOOD SPECIMENOrdering Facility: [facility] Address: [address] [place] [address] Performed By: #### 2 4323-8, ####[facility] LABCLIA [id number] [place] [address] [place] CO2 [Moles/Vol] 18 mmol/L Low 22-30 [facility] Comment on above: Order Comment: Speci men Type: BLOOD SPECIMENOrdering Facility: [facility] Address: [address] [place] [address] Performed By: #### 2 4323-8, ####[facility] LABCLIA [id number] [place] [address] [place] Creatinine [Mass/Vol] 1.96 mg/dL High 0.58-0.96 [facility] Comment on above: Order Comment: Speci men Type: BLOOD SPECIMENOrdering Facility: [facility] Address: [address] [place], [place] [address] Performed By: #### 2 4323-8, ####[facility] LABCLIA [id number] [place] [id number] [place] Creatinine and Glomerular filtration rate.predicted panel (S/P/Bld) 27 mL/min/1.73m??? Low >=60 [facility] Comment on above: Order Comment: Speci men Type: BLOOD SPECIMENOrdering Facility: [facility] Address: [address] [place], [place] [address] Result Comment: Maru mated Glomerular Filtration Rate [...] reflect actual GFR. Performed By: #### 2 4323-8, ####[facility] LABCLIA [id number] [place] [address] [place] Glucose [Mass/Vol] 114 mg/dL High 74-99 [facility] Comment on above: Order Comment: Marika hammonds Type: BLOOD SPECIMENOrdering Facility: [facility] Address: [address] [place] [address] Result Comment: The [place] [employer] (ADA) provides guidance for cutoff values for fasting glucose and random glucose. The ADA defines fasting as no caloric intake for at least 8 hours. Fasting plasma glucose results between 100 to 125 mg/dL indicate increased risk for diabetes (prediabetes).Fasting plasma glucose results greater than or equal to 126 mg/dL meet the criteria for diagnosis of diabetes. In the absence of unequivocal hyperglycemia, results should be confirmed by repeat testing. In a patient with classic symptoms of hyperglycemia or hyperglycemic crisis, random plasma glucose results greater than or equal to 200 mg/dL meet the criteria for diagnosis of diabetes.Reference: Standards of Medical Care in Diabetes 2016, [place] [employer]. Diabetes Care. 2016.39(Suppl 1). Performed By: #### 2 4323-8, ####[facility] LABIA [id number] [address] [address] [place] Potassium [Moles/Vol] 4.6 mmol/L Normal 3.7-5.1 [facility] Comment on above: Order Comment: Marika hammonds Type: BLOOD SPECIMENOrdering Facility: [facility] Address: [address] [place] [address] Performed By: #### 2 4323-8, ####[facility] LABCLIA [id number] [address] [place] [address] [place] Protein [Mass/Vol] 6.6 g/dL Normal 6.3-8.0 [facility] Comment on above: Order Comment: Speci men Type: BLOOD SPECIMENOrdering Facility: [facility] Address: [address] [place] [address] Performed By: #### 2 4323-8, 99102-4 ####[facility] LABCLIA [id number] [address] [place] [address] [place] Sodium [Moles/Vol] 139 mmol/L Normal 136-144 [facility] Comment on above: Order Comment: Speci men Type: BLOOD SPECIMENOrdering Facility: [facility] Address: [address] [place] [address] Performed By: #### 2 4323-8, 49872-9 ####[facility] LABCLIA [id number] [address], [facility]95 [place] Urea nitrogen [Mass/Vol] 36 mg/dL High 7-21 [facility] Comment on above: Order Comment: Speci men Type: BLOOD SPECIMENOrdering Facility: [facility] Address: [address] [place] [address] Performed By: #### 2 4323-8, 88987-6 ####[facility] LABCLIA [id number] [address] [place] [address] [place] Magnesium SerPl-mCncon 12-26 Magnesium [Mass/Vol] 2.3 mg/dL Normal 1.7-2.3 [facility] Comment on above: Order Comment: Speci men Type: BLOOD SPECIMENOrdering Facility: [facility] Address: [address] [place] [address] Performed By: #### 2 4323-8, 47983-2 ####[facility] LABCLIA [id number] [address] [place] [address] [place] THERAPY NTon 12-26-2024 THERAPY NT Normal [facility] THERAPY NT Normal [facility] XR CHEST 1V FRONTALon 2024 XR CHEST 1V FRONTAL Normal [facility] CBC panel Auto (Bld)on 12-25 Erythrocyte distribution width (RBC) [Ratio] 13.4 % Normal 11.5-15.0 [facility] Comment on above: Order Comment: Speci men Type: BLOOD SPECIMENOrdering Facility: [facility] Address: [address] [place] [address] Performed By: #### 5 8410-2 ####[facility] LABIA [id number] [place] [address] [place] Hematocrit (Bld) [Volume fraction] 44.3 % Normal 36.0-46.0 [facility] Comment on above: Order Comment: Speci men Type: BLOOD SPECIMENOrdering Facility: [facility] Address: [address] [place] [address] Performed By: #### 5 8410-2 ####[facility] LABIA [id number] [place] [address] [place] Hemoglobin (Bld) [Mass/Vol] 14.3 g/dL Normal 11.5-15.5 [facility] Comment on above: Order Comment: Speci men Type: BLOOD SPECIMENOrdering Facility: [facility] Address: [address] [place] [address] Performed By: #### 5 8410-2 ####[facility] LABCLIA [id number] [place] [address] [place] MCH (RBC) [Entitic mass] 30.1 pg Normal 26.0-34.0 [facility] Comment on above: Order Comment: Speci men Type: BLOOD SPECIMENOrdering Facility: [facility] Address: [address] [place] [address] Performed By: #### 5 8410-2 ####[facility] LABCLIA [id number] [place] [address] [place] MCHC (RBC) [Mass/Vol] 32.3 g/dL Normal 30.5-36.0 [facility] Comment on above: Order Comment: Speci men Type: BLOOD SPECIMENOrdering Facility: [facility] Address: [address] [place] [address] Performed By: #### 5 8410-2 ####[facility] LABIA [id number] [place] [address] [place] MCV (RBC) [Entitic vol] 93.3 fL Normal 80.0-100.0 C [facility] Comment on above: Order Comment: Speci men Type: BLOOD SPECIMENOrdering Facility: [facility] Address: [address] [place] [address] Performed By: #### 5 8410-2 ####[facility] LABCLIA [id number] [place] [address] [place] Nucleated RBC (Bld) [#/Vol] 10*3/uL Normal <0.01 [facility] Comment on above: Order Comment: Speci men Type: BLOOD SPECIMENOrdering Facility: [facility] Address: [address] [place] [address] Performed By: #### 5 8410-2 ####[facility] LABIA [id number] [place] [address] [place] Platelet mean volume (Bld) [Entitic vol] 10.8 fL Normal 9.0-12.7 [facility] Comment on above: Order Comment: Speci men Type: BLOOD SPECIMENOrdering Facility: [facility] Address: [address] [place] [address] Performed By: #### 5 8410-2 ####[facility] LABCLIA [id number] [place] [address] [place] Platelets (Bld) [#/Vol] 378 10*3/uL Normal 150-400 [facility] Comment on above: Order Comment: Speci men Type: BLOOD SPECIMENOrdering Facility: [facility] Address: [address] [place] [address] Performed By: #### 5 8410-2 ####[facility] LABCLIA [id number] [address] [address] [place] RBC (Bld) [#/Vol] 4.75 10*6/uL Normal 3.90-5.20 [facility] Comment on above: Order Comment: Speci men Type: BLOOD SPECIMENOrdering Facility: [facility] Address: [address] [place] [address] Performed By: #### 5 8410-2 ####[facility] LABCLIA [id number] [place] [address] [place] WBC (Bld) [#/Vol] 9.06 10*3/uL Normal 3.70-11.00 [facility] Comment on above: Order Comment: Speci men Type: BLOOD SPECIMENOrdering Facility: [facility] Address: [address] [place] [address] Performed By: #### 5 8410-2 ####[facility] LABCLIA [id number] [place] [id number] [place] CONSULTon 12-25-2024 CONSULT Normal [facility] Comprehensive metabolic 2000 panelon 12-25-2024 Albumin [Mass/Vol] 3.5 g/dL Low 3.9-4.9 [facility] Comment on above: Order Comment: Speci men Type: BLOOD SPECIMENOrdering Facility: [facility] Address: [address] [place] [address] Performed By: #### 2 4323-8, 08441-3 ####[facility] LABCLIA [id number] [place] [id number] [place] ALP [Catalytic activity/Vol] 67 U/L Normal 34-123 [facility] Comment on above: Order Comment: Speci men Type: BLOOD SPECIMENOrdering Facility: [facility] Address: [address] [place] [address] Performed By: #### 2 4322-8, ####[facility] LABCLIA [id number] [address] [address] [place] ALT [Catalytic activity/Vol] 22 U/L Normal 7-38 [facility] Comment on above: Order Comment: Speci men Type: BLOOD SPECIMENOrdering Facility: [facility] Address: [address] [place], [place] [address] Performed By: #### 2 4322-8, ####[facility] LABCLIA [id number] [place] [id number] [place] Anion gap [Moles/Vol] 13 mmol/L Normal 8-15 [facility] Comment on above: Order Comment: Speci men Type: BLOOD SPECIMENOrdering Facility: [facility] Address: [address] [place], [place] [address] Performed By: #### 2 8, ####[facility] LABCLIA [id number] [place] [id number] [place] AST [Catalytic activity/Vol] 17 U/L Normal 13-35 [facility] Comment on above: Order Comment: Speci men Type: BLOOD SPECIMENOrdering Facility: [facility] Address: [address] [place], [place] [address] Performed By: #### 2 4322-8, ####[facility] LABCLIA [id number] [address] [address] [place] Bilirubin [Mass/Vol] 0.3 mg/dL Normal 0.2-1.3 [facility] Comment on above: Order Comment: Speci men Type: BLOOD SPECIMENOrdering Facility: [facility] Address: [address] [place], [place] [address] Performed By: #### 2 4322-8, ####[facility] LABCLIA [id number] [facility] [place] [address] [place] Calcium [Mass/Vol] 9.5 mg/dL Normal 8.5-10.2 [facility] Comment on above: Order Comment: Speci men Type: BLOOD SPECIMENOrdering Facility: [facility] Address: [address] [place] [address] Performed By: #### 2 4323-02, ####[facility] LABCLIA [id number] [facility] [address] [place] [address] [place] Chloride [Moles/Vol] 103 mmol/L Normal 98-107 [facility] Comment on above: Order Comment: Speci men Type: BLOOD SPECIMENOrdering Facility: [facility] Address: [address] [place] [address] Performed By: #### 2 4323-02, ####[facility] LABCLIA [id number] [facility] [address] [place] [address] [place] CO2 [Moles/Vol] 22 mmol/L Normal 22-30 [facility] Comment on above: Order Comment: Speci men Type: BLOOD SPECIMENOrdering Facility: [facility] Address: [address] [place], [place] [address] Performed By: #### 2 4323-02, ####[facility] LABCLIA [id number] [facility] [address] [place] [address] [place] Creatinine [Mass/Vol] 1.71 mg/dL High 0.58-0.96 [facility] Comment on above: Order Comment: Speci men Type: BLOOD SPECIMENOrdering Facility: [facility] Address: [address] [place], [place] [address] Performed By: #### 2 43209-08, ####[facility] LABCLIA [id number] [facility] [address] [place] [address] [place] Creatinine and Glomerular filtration rate.predicted panel (S/P/Bld) 32 mL/min/1.73m??? Low >=60 [facility] Comment on above: Order Comment: Marika hammonds Type: BLOOD SPECIMENOrdering Facility: [facility] Address: [address] [place] [address] Result Comment: Maru mated Glomerular Filtration Rate [...] reflect actual GFR. Performed By: #### 2 4323-8, ####[facility] LABCLIA [id number] [place] [id number] [place] Glucose [Mass/Vol] 97 mg/dL Normal 74-99 [facility] Comment on above: Order Comment: Marika hammonds Type: BLOOD SPECIMENOrdering Facility: [facility] Address: [address] [place] [address] Result Comment: The [place] [employer] (ADA) provides guidance for cutoff values for fasting glucose and random glucose. The ADA defines fasting as no caloric intake for at least 8 hours. Fasting plasma glucose results between 100 to 125 mg/dL indicate increased risk for diabetes (prediabetes).Fasting plasma glucose results greater than or equal to 126 mg/dL meet the criteria for diagnosis of diabetes. In the absence of unequivocal hyperglycemia, results should be confirmed by repeat testing. In a patient with classic symptoms of hyperglycemia or hyperglycemic crisis, random plasma glucose results greater than or equal to 200 mg/dL meet the criteria for diagnosis of diabetes.Reference: Standards of Medical Care in Diabetes 2016, [place] [employer]. Diabetes Care. 2016.39(Suppl 1). Performed By: #### 2 4323-8, ####[facility] LABCLIA [id number] [address] [address] [place] Potassium [Moles/Vol] 4.1 mmol/L Normal 3.7-5.1 [facility] Comment on above: Order Comment: Speci men Type: BLOOD SPECIMENOrdering Facility: [facility] Address: [address] [place] [address] Performed By: #### 2 4323-8, ####[facility] LABCLIA [id number] [address] [address] [place] Protein [Mass/Vol] 6.7 g/dL Normal 6.3-8.0 [facility] Comment on above: Order Comment: Speci men Type: BLOOD SPECIMENOrdering Facility: [facility] Address: [address] [place] [address] Performed By: #### 2 432-8, ####[facility] LABCLIA [id number] [place] [id number] [place] Sodium [Moles/Vol] 138 mmol/L Normal 136-144 [facility] Comment on above: Order Comment: Speci men Type: BLOOD SPECIMENOrdering Facility: [facility] Address: [address] [place] [address] Performed By: #### 2 4322-8, ####[facility] LABCLIA [id number] [place] [address] [place] Urea nitrogen [Mass/Vol] 33 mg/dL High 7-21 [facility] Comment on above: Order Comment: Speci men Type: BLOOD SPECIMENOrdering Facility: [facility] Address: [address] [place] [address] Performed By: #### 2 4323-8, ####[facility] LABCLIA [id number] [place] [id number] [place] Magnesium SerPl-mCncon 12-25 Magnesium [Mass/Vol] 2.3 mg/dL Normal 1.7-2.3 [facility] Comment on above: Order Comment: Speci men Type: BLOOD SPECIMENOrdering Facility: [facility] Address: [address] [place] [address] Performed By: #### 2 4323-8, 51077-1 ####[facility] LABCLIA [id number] [place] [address] [place] XR CHEST 1V FRONTALon 2024 XR CHEST 1V FRONTAL Normal [facility] CASE MANAGEMon 12-24-2024 CASE MANAGEM Normal [facility] CBC panel Auto (Bld)on 12-24 Erythrocyte distribution width (RBC) [Ratio] 13.2 % Normal 11.5-15.0 [facility] Comment on above: Order Comment: Speci men Type: BLOOD SPECIMENOrdering Facility: [facility] Address: [address] [place] [address] Performed By: #### 5 8410-2 ####[facility] LABCLIA [id number] [place] [address] [place] Hematocrit (Bld) [Volume fraction] 42.1 % Normal 36.0-46.0 [facility] Comment on above: Order Comment: Speci men Type: BLOOD SPECIMENOrdering Facility: [facility] Address: [address] [place] [address] Performed By: #### 5 8410-2 ####[facility] LABCLIA [id number] [place] [address] [place] Hemoglobin (Bld) [Mass/Vol] 14.2 g/dL Normal 11.5-15.5 [facility] Comment on above: Order Comment: Speci men Type: BLOOD SPECIMENOrdering Facility: [facility] Address: [address] [place] [address] Performed By: #### 5 8410-2 ####[facility] LABCLIA [id number] [place] [id number] [place] MCH (RBC) [Entitic mass] 30.7 pg Normal 26.0-34.0 [facility] Comment on above: Order Comment: Speci men Type: BLOOD SPECIMENOrdering Facility: [facility] Address: [address] [place] [address] Performed By: #### 5 8410-2 ####[facility] LABIA [id number] [place] [address] [place] MCHC (RBC) [Mass/Vol] 33.7 g/dL Normal 30.5-36.0 [facility] Comment on above: Order Comment: Speci men Type: BLOOD SPECIMENOrdering Facility: [facility] Address: [address] [place] [address] Performed By: #### 5 8410-2 ####[facility] LABIA [id number] [place] [address] [place] MCV (RBC) [Entitic vol] 90.9 fL Normal 80.0-100.0 [facility] Comment on above: Order Comment: Speci men Type: BLOOD SPECIMENOrdering Facility: [facility] Address: [address] [place] [address] Performed By: #### 5 8410-2 ####[facility] LABIA [id number] [place] [address] [place] Nucleated RBC (Bld) [#/Vol] 10*3/uL Normal <0.01 [facility] Comment on above: Order Comment: Speci men Type: BLOOD SPECIMENOrdering Facility: [facility] Address: [address] [place] [address] Performed By: #### 5 8410-2 ####[facility] LABIA [id number] [place] [address] [place] Platelet mean volume (Bld) [Entitic vol] 10.9 fL Normal 9.0-12.7 [facility] Comment on above: Order Comment: Speci men Type: BLOOD SPECIMENOrdering Facility: [facility] Address: [address] [place] [address] Performed By: #### 5 8410-2 ####[facility] LABIA [id number] [address] [place] [address] [place] Platelets (Bld) [#/Vol] 347 10*3/uL Normal 150-400 [facility] Comment on above: Order Comment: Speci men Type: BLOOD SPECIMENOrdering Facility: [facility] Address: [address] [place] [address] Performed By: #### 5 8410-2 ####[facility] LABIA [id number] [address] [address] [place] RBC (Bld) [#/Vol] 4.63 10*6/uL Normal 3.90-5.20 [facility] Comment on above: Order Comment: Speci men Type: BLOOD SPECIMENOrdering Facility: [facility] Address: [address] [place] [address] Performed By: #### 5 8410-2 ####[facility] [id number] [address] [address] [place] WBC (Bld) [#/Vol] 10.86 10*3/uL Normal 3.70-11.00 [facility] Comment on above: Order Comment: Speci men Type: BLOOD SPECIMENOrdering Facility: [facility] Address: [address] [place] [address] Performed By: #### 5 8410-2 ####[facility] [id number] [address] [address] [place] CONSULT PROGon 12-24-2024 CONSULT PROG Normal [facility] Comprehensive metabolic 2000 panelon 12-24-2024 Albumin [Mass/Vol] 3.4 g/dL Low 3.9-4.9 [facility] Comment on above: Order Comment: Speci men Type: BLOOD SPECIMENOrdering Facility: [facility] Address: [address] [place] [address] Performed By: #### 2 4323-8, 98228-9, 15181-8, 2777-1 ####[facility] LABCLIA [id number] [place] [address] [place] ALP [Catalytic activity/Vol] 69 U/L Normal 34-123 [facility] Comment on above: Order Comment: Speci men Type: BLOOD SPECIMENOrdering Facility: [facility] Address: [address] [place] [address] Performed By: #### 2 4323-8, 00175-6, 14553-2, 2777-1 ####[facility] LABCLIA [id number] [place] [address] [place] ALT [Catalytic activity/Vol] 25 U/L Normal 7-38 [facility] Comment on above: Order Comment: Speci men Type: BLOOD SPECIMENOrdering Facility: [facility] Address: [address] [place] [address] Performed By: #### 2 4323-8, 54340-7, 06448-6, 2777-1 ####[facility] LABCLIA [id number] [place] [address] [place] Anion gap [Moles/Vol] 13 mmol/L Normal 8-15 [facility] Comment on above: Order Comment: Speci men Type: BLOOD SPECIMENOrdering Facility: [facility] Address: [address] [place] [address] Performed By: #### 2 4323-8, 71570-4, 55562-9, 2777-1 ####[facility] LABCLIA [id number] [place] [id number] [place] AST [Catalytic activity/Vol] 18 U/L Normal 13-35 [facility] Comment on above: Order Comment: Speci men Type: BLOOD SPECIMENOrdering Facility: [facility] Address: [address] [place] [address] Performed By: #### 2 4323-8, 78583-4, 48113-4, 2777-1 ####[facility] LABCLIA [id number] [address] [address] [place] Bilirubin [Mass/Vol] 0.4 mg/dL Normal 0.2-1.3 [facility] Comment on above: Order Comment: Speci men Type: BLOOD SPECIMENOrdering Facility: [facility] Address: [address] [place] [address] Performed By: #### 2 4323-8, 29316-7, 80086-1, 2777-1 ####[facility] LABCLIA [id number] [place] [id number] [place] Calcium [Mass/Vol] 9.7 mg/dL Normal 8.5-10.2 [facility] Comment on above: Order Comment: Speci men Type: BLOOD SPECIMENOrdering Facility: [facility] Address: [address] [place] [address] Performed By: #### 2 4323-8, 73066-3, 94468-2, 2777-1 ####[facility] LABCLIA [id number] [place] [id number] [place] Chloride [Moles/Vol] 102 mmol/L Normal 98-107 [facility] Comment on above: Order Comment: Speci men Type: BLOOD SPECIMENOrdering Facility: [facility] Address: [address] [place], [place] [address] Performed By: #### 2 4323-8, 13760-6, 83373-6, 2777-1 ####[facility] LABCLIA [id number] [place] [id number] [place] CO2 [Moles/Vol] 23 mmol/L Normal 22-30 [facility] Comment on above: Order Comment: Speci men Type: BLOOD SPECIMENOrdering Facility: [facility] Address: [address] [place] [address] Performed By: #### 2 4323-8, , 37856-8, 2777-1 ####[facility] LABIA [id number] [place] [id number] [place] Creatinine [Mass/Vol] 1.66 mg/dL High 0.58-0.96 [facility] Comment on above: Order Comment: Speci men Type: BLOOD SPECIMENOrdering Facility: [facility] Address: [address] [place] [address] Performed By: #### 2 4323-8, , 39884-4, 2777- ####[facility] [id number] [place] [address] [place] Creatinine and Glomerular filtration rate.predicted panel (S/P/Bld) 33 mL/min/1.73m??? Low >=60 [facility] Comment on above: Order Comment: Marika hammonds Type: BLOOD SPECIMENOrdering Facility: [facility] Address: [address] [place] [address] Result Comment: Maru mated Glomerular Filtration Rate [...] reflect actual GFR. Performed By: #### 2 4323-8, , 79355-8, 2777- ####[facility] [id number] [address] [address] [place] Glucose [Mass/Vol] 111 mg/dL High 74-99 [facility] Comment on above: Order Comment: Marika hammonds Type: BLOOD SPECIMENOrdering Facility: [facility] Address: [address] [place] [address] Result Comment: The [place] [employer] (ADA) provides guidance for cutoff values for fasting glucose and random glucose. The ADA defines fasting as no caloric intake for at least 8 hours. Fasting plasma glucose results between 100 to 125 mg/dL indicate increased risk for diabetes (prediabetes).Fasting plasma glucose results greater than or equal to 126 mg/dL meet the criteria for diagnosis of diabetes. In the absence of unequivocal hyperglycemia, results should be confirmed by repeat testing. In a patient with classic symptoms of hyperglycemia or hyperglycemic crisis, random plasma glucose results greater than or equal to 200 mg/dL meet the criteria for diagnosis of diabetes.Reference: Standards of Medical Care in Diabetes 2016, [place] [employer]. Diabetes Care. 2016.39(Suppl 1). Performed By: #### 2 4323-8, 49316-7, 61262-4, 2777-1 ####[facility] LABIA [id number] [place] [id number] [place] Potassium [Moles/Vol] 4.1 mmol/L Normal 3.7-5.1 [facility] Comment on above: Order Comment: Speci men Type: BLOOD SPECIMENOrdering Facility: [facility] Address: [address] [place] [address] Performed By: #### 2 4323-8, 60025-3, 14511-3, 2777-1 ####[facility] [id number] [place] [id number] [place] Protein [Mass/Vol] 6.3 g/dL Normal 6.3-8.0 [facility] Comment on above: Order Comment: Cobyi cassius Type: BLOOD SPECIMENOrdering Facility: [facility] Address: [address] [place] [address] Performed By: #### 2 4323-8, 25973-0, 01075-7, 2777-1 ####[facility] LABIA [id number] [place] [id number] [place] Sodium [Moles/Vol] 138 mmol/L Normal 136-144 [facility] Comment on above: Order Comment: Speci men Type: BLOOD SPECIMENOrdering Facility: [facility] Address: [address] [place] [address] Performed By: #### 2 4323-8, 07414-9, 32289-4, 2777-1 ####[facility] LABCLIA [id number] [place] [address] [place] Urea nitrogen [Mass/Vol] 41 mg/dL High 7-21 [facility] Comment on above: Order Comment: Speci men Type: BLOOD SPECIMENOrdering Facility: [facility] Address: [address] [place] [address] Performed By: #### 2 4323-8, 26962-1, 35666-7, 2777-1 ####[facility] LABCLIA [id number] [place] [address] [place] HISTORY PHYSICALon HISTORY PHYSICAL Normal [facility] Magnesium [facility] Magnesium [Mass/Vol] 2.3 mg/dL Normal 1.7-2.3 [facility] Comment on above: Order Comment: Speci men Type: BLOOD SPECIMENOrdering Facility: [facility] Address: [address] [place] [address] Performed By: #### 2 4323-8, 04146-3, 84763-2, 2777-1 ####[facility] LABCLIA [id number] [place] [address] [place] NM PET/CT CARD PERF REST/STR ESSon 12-24-2024 NM PET/CT CARD PERF REST/STRESS Normal [facility] NT-proBNP [facility]24 Natriuretic peptide.B prohormone N-Terminal [Mass/Vol] 4009 pg/mL High <125 [facility] Comment on above: Order Comment: Speci men Type: BLOOD SPECIMENOrdering Facility: [facility] Address: [address] [place] [address] Performed By: #### 2 4323-8, 59510-4, 80715-3, 2777-1 ####[facility] LABCLIA [id number] [place] [address] [place] NURSING PROGon 12-24-2024 NURSING PROG Normal [facility] NURSING PROG Normal [facility] Phosphate SerPl-mCncon 12-24 Phosphate [Mass/Vol] 5.0 mg/dL High 2.7-4.8 [facility] Comment on above: Order Comment: Speci men Type: BLOOD SPECIMENOrdering Facility: [facility] Address: [address] [place] [address] Performed By: #### 2 4323-8, 45699-9, 77525-5, 2777-1 ####[facility] LABCLIA [id number] [place] [address] [place] [facility] TYPE + SCREENon 12-24-2024 ABO O Normal [facility] Comment on above: Order Comment: Speci men Type: BLOOD SPECIMENOrdering Facility: [facility] Address: [address] [place] [address] Performed By: #### T SCR ####[facility] BLOOD BANKCLIA [id number] [place] [address] [place] Rh Nom (Bld) Positive Normal [facility] Comment on above: Order Comment: Speci men Type: BLOOD SPECIMENOrdering Facility: [facility] Address: [address] [place] [address] Performed By: #### T SCR ####[facility] MA[facility] BLOOD BANKCLIA [id number] [place] [address] [place] TYPE AND SCREEN EXPIRATION 12/27/2024 23:59 Normal [facility] Comment on above: Order Comment: Speci men Type: BLOOD SPECIMENOrdering Facility: [facility] Address: [address] [place] [address] Performed By: #### T SCR ####[facility] MAIN BLOOD BANKCLIA [id number] [place] [address] [place] Urinalysis complete panel (U )on 12-24-2024 Bacteria LM.HPF (Urine sed) [#/Area] Negative Normal Negative [facility] Comment on above: Order Comment: Speci men Type: URINE SPECIMENOrdering Facility: [facility] Address: [address] [place] [address] Performed By: #### 2 4356-8 ####[facility] LABCLIA [id number] [place] [address] [place] Bilirubin Ql (U) Negative Normal Negative [facility] Comment on above: Order Comment: Speci men Type: URINE SPECIMENOrdering Facility: [facility] Address: [address] [place] [address] Performed By: #### 2 4356-8 ####[facility] LABCLIA [id number] [place] [address] [place] Clarity (Unsp spec) Clear Normal Clear [facility] Comment on above: Order Comment: Speci men Type: URINE SPECIMENOrdering Facility: [facility] Address: [address] [place] [address] Performed By: #### 2 4356-8 ####[facility] LABCLIA [id number] [place] [address] [place] Color (U) Yellow Normal Yellow [facility] Comment on above: Order Comment: Speci men Type: URINE SPECIMENOrdering Facility: [facility] Address: [address] [place] [address] Performed By: #### 2 4356-8 ####[facility] LABCLIA [id number] [place] [id number] [place] Epithelial cells LM.HPF (Urine sed) [#/Area] None Seen Normal [facility] Comment on above: Order Comment: Speci men Type: URINE SPECIMENOrdering Facility: [facility] Address: [address] [place] [address] Performed By: #### 2 4356-8 ####[facility] LABCLIA [id number] [address] [place] [address] [place] Glucose Test strip (U) [Mass/Vol] 1+ Abnormal Negative [facility] Comment on above: Order Comment: Speci men Type: URINE SPECIMENOrdering Facility: [facility] Address: [address] [place] [address] Performed By: #### 2 4356-8 ####[facility] LABCLIA [id number] [place] [address] [place] Hemoglobin Ql (U) Negative Normal Negative [facility] Comment on above: Order Comment: Speci men Type: URINE SPECIMENOrdering Facility: [facility] Address: [address] [place] [address] Performed By: #### 2 4356-8 ####[facility] LABCLIA [id number] [place] [address] [place] Hyaline casts (Urine sed) [#/Area] 4-10 /LPF Abnormal 0 /LPF [facility] Comment on above: Order Comment: Speci men Type: URINE SPECIMENOrdering Facility: [facility] Address: [address] [place] [address] Performed By: #### 2 4356-8 ####[facility] LABCLIA [id number] [place] [address] [place] Ketones Ql (U) Negative Normal Negative [facility] Comment on above: Order Comment: Speci men Type: URINE SPECIMENOrdering Facility: [facility] Address: [address] [place] [address] Performed By: #### 2 4356-8 ####[facility] LABCLIA [id number] [place] [address] [place] Leukocyte esterase Test strip Ql (U) Trace Abnormal Negative [facility] Comment on above: Order Comment: Speci men Type: URINE SPECIMENOrdering Facility: [facility] Address: [address] [place] [address] Performed By: #### 2 4356-8 ####[facility] LABCLIA [id number] [place] [address] [place] Nitrite Ql (U) Negative Normal Negative [facility] Comment on above: Order Comment: Speci men Type: URINE SPECIMENOrdering Facility: [facility] Address: [address] [place] [address] Performed By: #### 2 4356-8 ####[facility] LABCLIA [id number] [address], [place] [address] [place] pH (U) 5.5 [pH] Normal <8.5 [facility] Comment on above: Order Comment: Speci men Type: URINE SPECIMENOrdering Facility: [facility] Address: [address] [place] [address] Performed By: #### 2 4356-8 ####[facility] LABCLIA [id number] [place] [address] [place] Protein (U) [Mass/Vol] Negative Normal [facility] Comment on above: Order Comment: Speci men Type: URINE SPECIMENOrdering Facility: [facility] Address: [address] [place] [address] Performed By: #### 2 4356-8 ####[facility] LABIA [id number] [place] [address] [place] RBC LM.HPF (Urine sed) [#/Area] 0-2 /HPF Normal 0-2 /HPF [facility] Comment on above: Order Comment: Speci men Type: URINE SPECIMENOrdering Facility: [facility] Address: [address] [place] [address] Performed By: #### 2 4356-8 ####[facility] LABCLIA [id number] [place] [id number] [place] Specific gravity (U) [Rel density] 1.017 Normal 1.005-1.030 [facility] Comment on above: Order Comment: Speci men Type: URINE SPECIMENOrdering Facility: [facility] Address: [address] [place] [address] Performed By: #### 2 4356-8 ####[facility] LABIA [id number] [address] [address] [place] Urobilinogen Ql (U) 0.2 EU/dL Normal 0.2-1.0 EU/dL [facility] Comment on above: Order Comment: Speci men Type: URINE SPECIMENOrdering Facility: [facility] Address: [address] [place] [address] Performed By: #### 2 4356-8 ####[facility] LABIA [id number] [place] [address] [place] WBC LM.HPF (Urine sed) [#/Area] 0-5 /HPF Normal 0-5 /HPF [facility] Comment on above: Order Comment: Speci men Type: URINE SPECIMENOrdering Facility: [facility] Address: [address] [place] [address] Performed By: #### 2 4356-8 ####[facility] LABIA [id number] [place] [address] [place] XR CHEST 1V FRONTAL PORTon 0 12-24-2024 XR CHEST 1V FRONTAL PORT Normal [facility] CBC panel Auto (Bld)on 12-23 Erythrocyte distribution width (RBC) [Ratio] 13.2 % Normal 11.5-15.0 [facility] Comment on above: Order Comment: Speci men Type: BLOOD SPECIMENOrdering Facility: [facility] Address: [address] [place] [address] Performed By: #### 5 8410-2 ####[facility] LABIA [id number] [place] [address] [place] Hematocrit (Bld) [Volume fraction] 39.2 % Normal 36.0-46.0 [facility] Comment on above: Order Comment: Speci men Type: BLOOD SPECIMENOrdering Facility: [facility] Address: [address] [place] [address] Performed By: #### 5 8410-2 ####[facility] LABIA [id number] [place] [id number] [place] Hemoglobin (Bld) [Mass/Vol] 13.2 g/dL Normal 11.5-15.5 [facility] Comment on above: Order Comment: Speci men Type: BLOOD SPECIMENOrdering Facility: [facility] Address: [address] [place] [address] Performed By: #### 5 8410-2 ####[facility] LABIA [id number] [place] [address] [place] MCH (RBC) [Entitic mass] 30.8 pg Normal 26.0-34.0 [facility] Comment on above: Order Comment: Speci men Type: BLOOD SPECIMENOrdering Facility: [facility] Address: [address] [place] [address] Performed By: #### 5 8410-2 ####[facility] [id number] [place] [address] [place] MCHC (RBC) [Mass/Vol] 33.7 g/dL Normal 30.5-36.0 [facility] Comment on above: Order Comment: Speci men Type: BLOOD SPECIMENOrdering Facility: [facility] Address: [address] [place] [address] Performed By: #### 5 8410-2 ####[facility] [id number] [place] [address] [place] MCV (RBC) [Entitic vol] 91.4 fL Normal 80.0-100.0 C [facility] Comment on above: Order Comment: Speci men Type: BLOOD SPECIMENOrdering Facility: [facility] Address: [address] [place] [address] Performed By: #### 5 8410-2 ####[facility] LABCLIA [id number] [address] [place] [address] [place] Nucleated RBC (Bld) [#/Vol] 10*3/uL Normal <0.01 [facility] Comment on above: Order Comment: Speci men Type: BLOOD SPECIMENOrdering Facility: [facility] Address: [address] [place] [address] Performed By: #### 5 8410-2 ####[facility] LABCLIA [id number] [address] [place] [address] [place] Platelet mean volume (Bld) [Entitic vol] 11.2 fL Normal 9.0-12.7 [facility] Comment on above: Order Comment: Speci men Type: BLOOD SPECIMENOrdering Facility: [facility] Address: [address] [place] [address] Performed By: #### 5 8410-2 ####[facility] LABCLIA [id number] [address] [place] [address] [place] Platelets (Bld) [#/Vol] 332 10*3/uL Normal 150-400 [facility] Comment on above: Order Comment: Speci men Type: BLOOD SPECIMENOrdering Facility: [facility] Address: [address] [place] [address] Performed By: #### 5 8410-2 ####[facility] LABCLIA [id number] [facility] [address] [place] [address] [place] RBC (Bld) [#/Vol] 4.29 10*6/uL Normal 3.90-5.20 [facility] Comment on above: Order Comment: Speci men Type: BLOOD SPECIMENOrdering Facility: [facility] Address: [address] [place] [address] Performed By: #### 5 8410-2 ####[facility] LABCLIA [id number] [address] [place] [address] [place] WBC (Bld) [#/Vol] 10.37 10*3/uL Normal 3.70-11.00 [facility] Comment on above: Order Comment: Speci men Type: BLOOD SPECIMENOrdering Facility: [facility] Address: [address] [place] [address] Performed By: #### 5 8410-2 ####[facility] LABCLIA [id number] [address], [facility] [place] CONSULT PROGon 12-23-2024 CONSULT PROG Normal [facility] Comprehensive metabolic 2000 panelon 12-23-2024 Albumin [Mass/Vol] 3.2 g/dL Low 3.9-4.9 [facility] Comment on above: Order Comment: Speci men Type: BLOOD SPECIMENOrdering Facility: [facility] Address: [address] [place] [address] Performed By: #### 2 4323-8, ####[facility] LABCLIA [id number] [address] [place] [address] [place] ALP [Catalytic activity/Vol] 80 U/L Normal 34-123 [facility] Comment on above: Order Comment: Speci men Type: BLOOD SPECIMENOrdering Facility: [facility] Address: [address] [place] [address] Performed By: #### 2 4323-8, ####[facility] LABCLIA [id number] [address] [place] [address] [place] ALT [Catalytic activity/Vol] 34 U/L Normal 7-38 [facility] Comment on above: Order Comment: Speci men Type: BLOOD SPECIMENOrdering Facility: [facility] Address: [address] [place] [address] Performed By: #### 2 4323-8, ####[facility] LABCLIA [id number] [address] [place] [address] [place] Anion gap [Moles/Vol] 13 mmol/L Normal 8-15 [facility] Comment on above: Order Comment: Speci men Type: BLOOD SPECIMENOrdering Facility: [facility] Address: [address] [place] [address] Performed By: #### 2 4323-8, ####[facility] LABCLIA [id number] [facility] [place] [address] [place] AST [Catalytic activity/Vol] 26 U/L Normal 13-35 [facility] Comment on above: Order Comment: Speci men Type: BLOOD SPECIMENOrdering Facility: [facility] Address: [address] [place] [address] Result Comment: Resu lts may be falsely increased due to interference from hemolysis. Suggest reorder as clinically indicated. Performed By: #### 2 4328, ####[facility] LABCLIA [id number] [place] [address] [place] Bilirubin [Mass/Vol] 0.2 mg/dL Normal 0.2-1.3 [facility] Comment on above: Order Comment: Speci men Type: BLOOD SPECIMENOrdering Facility: [facility] Address: [address] [place] [address] Performed By: #### 2 4323-8, ####[facility] LABCLIA [id number] [facility] [place] [address] [place] Calcium [Mass/Vol] 9.5 mg/dL Normal 8.5-10.2 [facility] Comment on above: Order Comment: Speci men Type: BLOOD SPECIMENOrdering Facility: [facility] Address: [address] [place] [address] Performed By: #### 2 4323-8, ####[facility] LABCLIA [id number] [facility] [place] [id number] [place] Chloride [Moles/Vol] 104 mmol/L Normal 98-107 [facility] Comment on above: Order Comment: Speci men Type: BLOOD SPECIMENOrdering Facility: [facility] Address: [address] [place] [address] Performed By: #### 2 4323-8, ####[facility] LABCLIA [id number] [place] [id number] [place] CO2 [Moles/Vol] 21 mmol/L Low 22-30 [facility] Comment on above: Order Comment: Speci men Type: BLOOD SPECIMENOrdering Facility: [facility] Address: [address] [place] [address] Performed By: #### 2 4323-8, ####[facility] LABIA [id number] [place] [address] [place] Creatinine [Mass/Vol] 1.81 mg/dL High 0.58-0.96 [facility] Comment on above: Order Comment: Speci men Type: BLOOD SPECIMENOrdering Facility: [facility] Address: [address] [place] [address] Performed By: #### 2 4323-8, ####[facility] LABIA [id number] [place] [address] [place] Creatinine and Glomerular filtration rate.predicted panel (S/P/Bld) 30 mL/min/1.73m??? Low >=60 [facility] Comment on above: Order Comment: Speci men Type: BLOOD SPECIMENOrdering Facility: [facility] Address: [address] [place] [address] Result Comment: Maru mated Glomerular Filtration Rate [...] reflect actual GFR. Performed By: #### 2 4328, ####[facility] LABCLIA [id number] [address] [address] [place] Glucose [Mass/Vol] 111 mg/dL High 74-99 [facility] Comment on above: Order Comment: Speci men Type: BLOOD SPECIMENOrdering Facility: [facility] Address: [address] [place] [address] Result Comment: The [place] [employer] (ADA) provides guidance for cutoff values for fasting glucose and random glucose. The ADA defines fasting as no caloric intake for at least 8 hours. Fasting plasma glucose results between 100 to 125 mg/dL indicate increased risk for diabetes (prediabetes).Fasting plasma glucose results greater than or equal to 126 mg/dL meet the criteria for diagnosis of diabetes. In the absence of unequivocal hyperglycemia, results should be confirmed by repeat testing. In a patient with classic symptoms of hyperglycemia or hyperglycemic crisis, random plasma glucose results greater than or equal to 200 mg/dL meet the criteria for diagnosis of diabetes.Reference: Standards of Medical Care in Diabetes 2016, [place] [employer]. Diabetes Care. 2016.39(Suppl 1). Performed By: #### 2 432-8, ####[facility] LABIA [id number] [place] [address] [place] Potassium [Moles/Vol] 4.8 mmol/L Normal 3.7-5.1 [facility] Comment on above: Order Comment: Speci men Type: BLOOD SPECIMENOrdering Facility: [facility] Address: [address] [place] [address] Performed By: #### 2 4323-8, ####[facility] LABIA [id number] [address] [address] [place] Protein [Mass/Vol] 6.1 g/dL Low 6.3-8.0 [facility] Comment on above: Order Comment: Speci men Type: BLOOD SPECIMENOrdering Facility: [facility] Address: [address] [place] [address] Performed By: #### 2 4323-8, ####[facility] LABCLIA [id number] [place] [id number] [place] Sodium [Moles/Vol] 138 mmol/L Normal 136-144 [facility] Comment on above: Order Comment: Speci men Type: BLOOD SPECIMENOrdering Facility: [facility] Address: [address] [place] [address] Performed By: #### 2 4323-8, ####[facility] LABCLIA [id number] [place] [id number] [place] Urea nitrogen [Mass/Vol] 42 mg/dL High 01-21 [facility] Comment on above: Order Comment: Speci men Type: BLOOD SPECIMENOrdering Facility: [facility] Address: [address] [place] [address] Performed By: #### 2 4323-8, ####[facility] LABIA [id number] [place] [id number] [place] Magnesium SerPl-mCncon 12-23 Magnesium [Mass/Vol] 2.3 mg/dL Normal 1.7-2.3 [facility] Comment on above: Order Comment: Speci men Type: BLOOD SPECIMENOrdering Facility: [facility] Address: [address] [place], [place] [address] Performed By: #### 2 4323-8, ####[facility] LABCLIA [id number] [address] [address] [place] PT EDon 12-23-2024 PT ED Normal [facility] XR CHEST 1V FRONTAL PORTon 0 12-23-2024 XR CHEST 1V FRONTAL PORT Normal [facility] CBC panel Auto (Bld)on 12-22 Erythrocyte distribution width (RBC) [Ratio] 13.3 % Normal 11.5-15.0 [facility] Comment on above: Order Comment: Speci men Type: BLOOD SPECIMENOrdering Facility: [facility] Address: [address] [place] [address] Performed By: #### 5 8410-2 ####[facility] LABIA [id number] [place] [address] [place] Hematocrit (Bld) [Volume fraction] 41.6 % Normal 36.0-46.0 [facility] Comment on above: Order Comment: Speci men Type: BLOOD SPECIMENOrdering Facility: [facility] Address: [address] [place] [address] Performed By: #### 5 8410-2 ####[facility] LABIA [id number] [place] [address] [place] Hemoglobin (Bld) [Mass/Vol] 13.7 g/dL Normal 11.5-15.5 [facility] Comment on above: Order Comment: Speci men Type: BLOOD SPECIMENOrdering Facility: [facility] Address: [address] [place] [address] Performed By: #### 5 8410-2 ####[facility] [id number] [place] [address] [place] MCH (RBC) [Entitic mass] 30.2 pg Normal 26.0-34.0 [facility] Comment on above: Order Comment: Speci men Type: BLOOD SPECIMENOrdering Facility: [facility] Address: [address] [place] [address] Performed By: #### 5 8410-2 ####[facility] LABIA [id number] [place] [address] [place] MCHC (RBC) [Mass/Vol] 32.9 g/dL Normal 30.5-36.0 [facility] Comment on above: Order Comment: Speci men Type: BLOOD SPECIMENOrdering Facility: [facility] Address: [address] [place] [address] Performed By: #### 5 8410-2 ####[facility] LABCLIA [id number] [address] [address] [place] MCV (RBC) [Entitic vol] 91.6 fL Normal 80.0-100.0 [facility] Comment on above: Order Comment: Speci men Type: BLOOD SPECIMENOrdering Facility: [facility] Address: [address] [place] [address] Performed By: #### 5 8410-2 ####[facility] LABIA [id number] [place] [address] [place] Nucleated RBC (Bld) [#/Vol] 10*3/uL Normal <0.01 [facility] Comment on above: Order Comment: Speci men Type: BLOOD SPECIMENOrdering Facility: [facility] Address: [address] [place] [address] Performed By: #### 5 8410-2 ####[facility] LABIA [id number] [place] [address] [place] Platelet mean volume (Bld) [Entitic vol] 10.9 fL Normal 9.0-12.7 [facility] Comment on above: Order Comment: Speci men Type: BLOOD SPECIMENOrdering Facility: [facility] Address: [address] [place] [address] Performed By: #### 5 8410-2 ####[facility] LABIA [id number] [place] [address] [place] Platelets (Bld) [#/Vol] 348 10*3/uL Normal 150-400 [facility] Comment on above: Order Comment: Speci men Type: BLOOD SPECIMENOrdering Facility: [facility] Address: [address] [place] [address] Performed By: #### 5 8410-2 ####[facility] LABIA [id number] [place] [address] [place] RBC (Bld) [#/Vol] 4.54 10*6/uL Normal 3.90-5.20 [facility] Comment on above: Order Comment: Speci men Type: BLOOD SPECIMENOrdering Facility: [facility] Address: [address] [place] [address] Performed By: #### 5 8410-2 ####[facility] LABCLIA [id number] [place] [address] [place] WBC (Bld) [#/Vol] 10.40 10*3/uL Normal 3.70-11.00 [facility] Comment on above: Order Comment: Speci men Type: BLOOD SPECIMENOrdering Facility: [facility] Address: [address] [place] [address] Performed By: #### 5 8410-2 ####[facility] LABCLIA [id number] [place] [address] [place] Comprehensive metabolic 2000 panelon 12-22-2024 Albumin [Mass/Vol] 3.3 g/dL Low 3.9-4.9 [facility] Comment on above: Order Comment: Speci men Type: BLOOD SPECIMENOrdering Facility: [facility] Address: [address] [place] [address] Performed By: #### 2 777-1, , ####[facility] LABCLIA [id number] [place] [id number] [place] ALP [Catalytic activity/Vol] 81 U/L Normal 34-123 [facility] Comment on above: Order Comment: Speci men Type: BLOOD SPECIMENOrdering Facility: [facility] Address: [address] [place] [address] Performed By: #### 2 777-1, , ####[facility] LABCLIA [id number] [address] [place] [address] [place] ALT [Catalytic activity/Vol] 38 U/L Normal 7-38 [facility] Comment on above: Order Comment: Speci men Type: BLOOD SPECIMENOrdering Facility: [facility] Address: [address] [place], [place] [address] Performed By: #### 2 777-1, , ####[facility] LABCLIA [id number] [facility] [address] [place] [address] [place] Anion gap [Moles/Vol] 13 mmol/L Normal 8-15 [facility] Comment on above: Order Comment: Speci men Type: BLOOD SPECIMENOrdering Facility: [facility] Address: [address] [place], [place] [address] Performed By: #### 2 777-1, , ####[facility] LABCLIA [id number] [address] [address] [place] AST [Catalytic activity/Vol] 30 U/L Normal 13-35 [facility] Comment on above: Order Comment: Speci men Type: BLOOD SPECIMENOrdering Facility: [facility] Address: [address] [place] [address] Performed By: #### 2 777-1, , ####[facility] LABCLIA [id number] [address] [address] [place] Bilirubin [Mass/Vol] 0.2 mg/dL Normal 0.2-1.3 [facility] Comment on above: Order Comment: Speci men Type: BLOOD SPECIMENOrdering Facility: [facility] Address: [address] [place] [address] Performed By: #### 2 777-1, , ####[facility] LABCLIA [id number] [facility] [address] [place] [address] [place] Calcium [Mass/Vol] 9.4 mg/dL Normal 8.5-10.2 [facility] Comment on above: Order Comment: Speci men Type: BLOOD SPECIMENOrdering Facility: [facility] Address: [address] [place], [place] [address] Performed By: #### 2 777-1, , ####[facility] LABCLIA [id number] [address] [address] [place] Chloride [Moles/Vol] 101 mmol/L Normal 98-107 [facility] Comment on above: Order Comment: Speci men Type: BLOOD SPECIMENOrdering Facility: [facility] Address: [address] [place], [place] [address] Performed By: #### 2 777-1, , ####[facility] LABCLIA [id number] [place] [id number] [place] CO2 [Moles/Vol] 22 mmol/L Normal 22-30 [facility] Comment on above: Order Comment: Speci men Type: BLOOD SPECIMENOrdering Facility: [facility] Address: [address] [place], [place] [address] Performed By: #### 2 777-1, , ####[facility] LABIA [id number] [place] [address] [place] Creatinine [Mass/Vol] 1.68 mg/dL High 0.58-0.96 [facility] Comment on above: Order Comment: Speci men Type: BLOOD SPECIMENOrdering Facility: [facility] Address: [address] [place], [place] [address] Performed By: #### 2 777-1, , ####[facility] LABIA [id number] [address] [address] [place] Creatinine and Glomerular filtration rate.predicted panel (S/P/Bld) 33 mL/min/1.73m??? Low >=60 [facility] Comment on above: Order Comment: Speci men Type: BLOOD SPECIMENOrdering Facility: [facility] Address: [address] [place] [address] Result Comment: Maru mated Glomerular Filtration Rate [...] reflect actual GFR. Performed By: #### 2 777-1, , ####[facility] LABCLIA [id number] [address] [address] [place] Glucose [Mass/Vol] 115 mg/dL High 74-99 [facility] Comment on above: Order Comment: Speci men Type: BLOOD SPECIMENOrdering Facility: [facility] Address: [address] [place] [address] Result Comment: The [place] [employer] (ADA) provides guidance for cutoff values for fasting glucose and random glucose. The ADA defines fasting as no caloric intake for at least 8 hours. Fasting plasma glucose results between 100 to 125 mg/dL indicate increased risk for diabetes (prediabetes).Fasting plasma glucose results greater than or equal to 126 mg/dL meet the criteria for diagnosis of diabetes. In the absence of unequivocal hyperglycemia, results should be confirmed by repeat testing. In a patient with classic symptoms of hyperglycemia or hyperglycemic crisis, random plasma glucose results greater than or equal to 200 mg/dL meet the criteria for diagnosis of diabetes.Reference: Standards of Medical Care in Diabetes 2016, [place] [employer]. Diabetes Care. 2016.39(Suppl 1). Performed By: #### 2 777-1, , ####[facility] LABCLIA [id number] [address] [address] [place] Potassium [Moles/Vol] 4.1 mmol/L Normal 3.7-5.1 [facility] Comment on above: Order Comment: Speci men Type: BLOOD SPECIMENOrdering Facility: [facility] Address: [address] [place] [id number] Performed By: #### 2 777-1, , ####[facility] LABCLIA [id number] [address] [address] [place] Protein [Mass/Vol] 6.3 g/dL Normal 6.3-8.0 [facility] Comment on above: Order Comment: Speci men Type: BLOOD SPECIMENOrdering Facility: [facility] Address: [address] [place] [address] Performed By: #### 2 777-1, , ####[facility] [id number] [address] [address] [place] Sodium [Moles/Vol] 136 mmol/L Normal 136-144 [facility] Comment on above: Order Comment: Speci men Type: BLOOD SPECIMENOrdering Facility: [facility] Address: [address] [place] [address] Performed By: #### 2 777-1, , ####[facility] [id number] [address] [address] [place] Urea nitrogen [Mass/Vol] 38 mg/dL High - [facility] Comment on above: Order Comment: Speci men Type: BLOOD SPECIMENOrdering Facility: [facility] Address: [address] [place] [address] Performed By: #### 2 777-1, , ####[facility] [id number] [address] [place] [address] [place] Magnesium SerPl-mCncon 12-22 Magnesium [Mass/Vol] 2.2 mg/dL Normal 1.7-2.3 [facility] Comment on above: Order Comment: Speci men Type: BLOOD SPECIMENOrdering Facility: [facility] Address: [address] [place] [address] Performed By: #### 2 777-1, , 17967-2 ####[facility] LABCLIA [id number] [address] [place] [address] [place] NUTRITIONon 12-22-2024 NUTRITION Normal [facility] Phosphate SerPl-mCncon 12-22 Phosphate [Mass/Vol] 4.3 mg/dL Normal 2.7-4.8 [facility] Comment on above: Order Comment: Speci men Type: BLOOD SPECIMENOrdering Facility: [facility] Address: [address] [place] [address] Performed By: #### 2 777-1, , ####[facility]CLIA [id number] [address] [place] [address] [place] US KIDNEY/BLADDERon 12-23-19 US KIDNEY/BLADDER Normal [facility] XR CHEST 1V FRONTAL PORTon 0 12-22-2024 XR CHEST 1V FRONTAL PORT Normal [facility] CASE MANAGEMon 12-21-2024 CASE MANAGEM Normal [facility] CBC panel Auto (Bld)on 12-21 Erythrocyte distribution width (RBC) [Ratio] 13.2 % Normal 11.5-15.0 [facility] Comment on above: Order Comment: Speci men Type: BLOOD SPECIMENOrdering Facility: [facility] Address: [address] [place] [address] Performed By: #### 5 8410-2 ####[facility] [id number] [address] [place] [address] [place] Hematocrit (Bld) [Volume fraction] 40.8 % Normal 36.0-46.0 [facility] Comment on above: Order Comment: Speci men Type: BLOOD SPECIMENOrdering Facility: [facility] Address: [address] [place] [address] Performed By: #### 5 8410-2 ####[facility]CLIA [id number] [place] [address] [place] Hemoglobin (Bld) [Mass/Vol] 13.6 g/dL Normal 11.5-15.5 [facility] Comment on above: Order Comment: Speci men Type: BLOOD SPECIMENOrdering Facility: [facility] Address: [address] [place] [address] Performed By: #### 5 8410-2 ####[facility] [id number] [place] [address] [place] MCH (RBC) [Entitic mass] 30.6 pg Normal 26.0-34.0 [facility] Comment on above: Order Comment: Speci men Type: BLOOD SPECIMENOrdering Facility: [facility] Address: [address] [place] [address] Performed By: #### 5 8410-2 ####[facility] [id number] [address] [place] MCHC (RBC) [Mass/Vol] 33.3 g/dL Normal 30.5-36.0 [facility] Comment on above: Order Comment: Speci men Type: BLOOD SPECIMENOrdering Facility: [facility] Address: [address] [place] [address] Performed By: #### 5 8410-2 ####[facility] [id number] [place] [address] [place] MCV (RBC) [Entitic vol] 91.9 fL Normal 80.0-100.0 C [facility] Comment on above: Order Comment: Speci men Type: BLOOD SPECIMENOrdering Facility: [facility] Address: [address] [place] [address] Performed By: #### 5 8410-2 ####[facility] [id number] [place] [address] [place] Nucleated RBC (Bld) [#/Vol] 10*3/uL Normal <0.01 [facility] Comment on above: Order Comment: Speci men Type: BLOOD SPECIMENOrdering Facility: [facility] Address: [address] [place] [address] Performed By: #### 5 8410-2 ####[facility]CL[facility] [id number] [address] [address] [place] Platelet mean volume (Bld) [Entitic vol] 11.0 fL Normal 9.0-12.7 [facility] Comment on above: Order Comment: Speci men Type: BLOOD SPECIMENOrdering Facility: [facility] Address: [address] [place] [address] Performed By: #### 5 8410-2 ####[facility] [id number] [place] [address] [place] Platelets (Bld) [#/Vol] 392 10*3/uL Normal 150-400 [facility] Comment on above: Order Comment: Speci men Type: BLOOD SPECIMENOrdering Facility: [facility] Address: [address] [place] [address] Performed By: #### 5 8410-2 ####[facility] [id number] [place] [address] [place] RBC (Bld) [#/Vol] 4.44 10*6/uL Normal 3.90-5.20 [facility] Comment on above: Order Comment: Speci men Type: BLOOD SPECIMENOrdering Facility: [facility] Address: [address] [place] [address] Performed By: #### 5 8410-2 ####[facility] [id number] [place] [id number] [place] WBC (Bld) [#/Vol] 10.57 10*3/uL Normal 3.70-11.00 [facility] Comment on above: Order Comment: Speci men Type: BLOOD SPECIMENOrdering Facility: [facility] Address: [address] [place] [address] Performed By: #### 5 8410-2 ####[facility]CL[facility] [id number] [place] [address] [place] CONSULT PROGon 12-21-2024 CONSULT PROG Normal [facility] CONSULT PROG Normal [facility] Comprehensive metabolic 2000 panelon 12-21-2024 Albumin [Mass/Vol] 3.3 g/dL Low 3.9-4.9 [facility] Comment on above: Order Comment: Speci men Type: BLOOD SPECIMENOrdering Facility: [facility] Address: [address] [place] [address] Performed By: #### 2 4323-8, , 2776-07 ####[facility]CL[facility] [id number] [place] [address] [place] ALP [Catalytic activity/Vol] 80 U/L Normal 34-123 [facility] Comment on above: Order Comment: Speci men Type: BLOOD SPECIMENOrdering Facility: [facility] Address: [address] [place] [address] Performed By: #### 2 4323-8, , 2776-07 ####[facility] [id number] [place] [address] [place] ALT [Catalytic activity/Vol] 38 U/L Normal 7-38 [facility] Comment on above: Order Comment: Speci men Type: BLOOD SPECIMENOrdering Facility: [facility] Address: [address] [place] [address] Result Comment: Resu lts may be falsely increased due to interference from hemolysis. Suggest reorder as clinically indicated. Performed By: #### 2 4323-8, , 2776-07 ####[facility]CL[facility] [id number] [place] [id number] [place] Anion gap [Moles/Vol] 15 mmol/L Normal 8-15 [facility] Comment on above: Order Comment: Speci men Type: BLOOD SPECIMENOrdering Facility: [facility] Address: [address] [place], [place] [address] Performed By: #### 2 4323-8, , 2776-07 ####[facility]CLIA [id number] [facility] [address] [address] [place] AST [Catalytic activity/Vol] 34 U/L Normal 13-35 [facility] Comment on above: Order Comment: Speci men Type: BLOOD SPECIMENOrdering Facility: [facility] Address: [address] [place] [address] Result Comment: Resu lts may be falsely increased due to interference from hemolysis. Suggest reorder as clinically indicated. Performed By: #### 2 4323-8, , 2776-07 ####[facility]CL[facility] [id number] [facility] [place] [id number] [place] Bilirubin [Mass/Vol] mg/dL Low 0.2-1.3 [facility] Comment on above: Order Comment: Speci men Type: BLOOD SPECIMENOrdering Facility: [facility] Address: [address] [place] [address] Performed By: #### 2 4323-8, , 2776-07 ####[facility]CL[facility] [id number] [facility] [place] [id number] [place] Calcium [Mass/Vol] 9.4 mg/dL Normal 8.5-10.2 [facility] Comment on above: Order Comment: Speci men Type: BLOOD SPECIMENOrdering Facility: [facility] Address: [address] [place], [place] [address] Performed By: #### 2 4323-8, , 2776-07 ####[facility]CL[facility] [id number] [facility] [address] [address] [place] Chloride [Moles/Vol] 99 mmol/L Normal 98-107 [facility] Comment on above: Order Comment: Speci men Type: BLOOD SPECIMENOrdering Facility: [facility] Address: [address] [place] [address] Performed By: #### 2 4323-8, , 2776-07 ####[facility]CL[facility] [id number] [place] [id number] [place] CO2 [Moles/Vol] 21 mmol/L Low 22-30 [facility] Comment on above: Order Comment: Speci men Type: BLOOD SPECIMENOrdering Facility: [facility] Address: [address] [place] [address] Performed By: #### 2 4323-8, , 2776-07 ####[facility]CL[facility] [id number] [place] [address] [place] Creatinine [Mass/Vol] 1.58 mg/dL High 0.58-0.96 [facility] Comment on above: Order Comment: Speci men Type: BLOOD SPECIMENOrdering Facility: [facility] Address: [address] [place] [address] Performed By: #### 2 4323-8, , 2776-07 ####[facility]CLIA [id number] [place] [address] [place] Creatinine and Glomerular filtration rate.predicted panel (S/P/Bld) 36 mL/min/1.73m??? Low >=60 [facility] Comment on above: Order Comment: Speci men Type: BLOOD SPECIMENOrdering Facility: [facility] Address: [address] [place] [address] Result Comment: Maru mated Glomerular Filtration Rate [...] reflect actual GFR. Performed By: #### 2 4323-8, , 2776-07 ####[facility]CL[facility] [id number] [address] [address] [place] Glucose [Mass/Vol] 203 mg/dL High 74-99 [facility] Comment on above: Order Comment: Speci men Type: BLOOD SPECIMENOrdering Facility: [facility] Address: [address] [place] [address] Result Comment: The [place] [employer] (ADA) provides guidance for cutoff values for fasting glucose and random glucose. The ADA defines fasting as no caloric intake for at least 8 hours. Fasting plasma glucose results between 100 to 125 mg/dL indicate increased risk for diabetes (prediabetes).Fasting plasma glucose results greater than or equal to 126 mg/dL meet the criteria for diagnosis of diabetes. In the absence of unequivocal hyperglycemia, results should be confirmed by repeat testing. In a patient with classic symptoms of hyperglycemia or hyperglycemic crisis, random plasma glucose results greater than or equal to 200 mg/dL meet the criteria for diagnosis of diabetes.Reference: Standards of Medical Care in Diabetes 2016, [place] [employer]. Diabetes Care. 2016.39(Suppl 1). Performed By: #### 2 4323-8, , 2776-07 ####[facility] [id number] [address] [address] [place] Potassium [Moles/Vol] 4.6 mmol/L Normal 3.7-5.1 [facility] Comment on above: Order Comment: Speci men Type: BLOOD SPECIMENOrdering Facility: [facility] Address: [address] [place] [address] Performed By: #### 2 4323-8, , 2776-07 ####[facility] [id number] [address] [address] [place] Protein [Mass/Vol] 6.3 g/dL Normal 6.3-8.0 [facility] Comment on above: Order Comment: Speci men Type: BLOOD SPECIMENOrdering Facility: [facility] Address: [address] [place], [place] [address] Performed By: #### 2 4323-8, 14287-9, 2776-07 ####[facility]CL[facility] [id number] [place] [id number] [place] Sodium [Moles/Vol] 135 mmol/L Low 136-144 [facility] Comment on above: Order Comment: Speci men Type: BLOOD SPECIMENOrdering Facility: [facility] Address: [address] [place], [place] [address] Performed By: #### 2 4323-8, 95312-1, 2776-07 ####[facility]CL[facility] [id number] [place] [address] [place] Urea nitrogen [Mass/Vol] 36 mg/dL High 7-21 [facility] Comment on above: Order Comment: Speci men Type: BLOOD SPECIMENOrdering Facility: [facility] Address: [address] [place] [address] Performed By: #### 2 4323-8, , 2776-07 ####[facility]CL[facility] [id number] [place] [id number] [place] ECHO TRANSESOPHAGEALon 12-21 ECHO TRANSESOPHAGEAL Normal [facility] Magnesium SerPl-mCncon 12-21 Magnesium [Mass/Vol] 2.2 mg/dL Normal 1.7-2.3 [facility] Comment on above: Order Comment: Speci men Type: BLOOD SPECIMENOrdering Facility: [facility] Address: [address] [place] [address] Performed By: #### 2 4323-8, 10100-7, 2776-07 ####[facility]CL[facility] [id number] [place] [id number] [place] Phosphate SerPl-mCncon 12-21 Phosphate [Mass/Vol] 4.6 mg/dL Normal 2.7-4.8 [facility] Comment on above: Order Comment: Speci men Type: BLOOD SPECIMENOrdering Facility: [facility] Address: [address] [place] [address] Performed By: #### 2 4323-8, 17695-5, 2777-1 ####[facility]CL[facility] [id number] [address], [place] [address] [place] XR CHEST 1V FRONTALon 2024 XR CHEST 1V FRONTAL Normal [facility] CBC W Auto Differential pane l (Bld)on 12-20-2024 Basophils (Bld) [#/Vol] 0.08 10*3/uL Normal <0.11 [facility] Comment on above: Order Comment: Speci men Type: BLOOD SPECIMENOrdering Facility: [facility] Address: [address] [place] [address] Performed By: #### 5 7021-8 ####[facility]CL[facility] [id number] [place] [address] [place] Basophils/100 WBC (Bld) 0.8 % Normal [facility] Comment on above: Order Comment: Speci men Type: BLOOD SPECIMENOrdering Facility: [facility] Address: [address] [place] [address] Performed By: #### 5 7021-8 ####[facility] [id number] [address], [facility]95 [place] Differential cell count method Nom (Bld) Auto Normal [facility] Comment on above: Order Comment: Speci men Type: BLOOD SPECIMENOrdering Facility: [facility] Address: [address] [place] [address] Performed By: #### 5 7021-8 ####[facility]CL[facility] [id number] [address] [place] [address] [place] Eosinophils (Bld) [#/Vol] 0.19 10*3/uL Normal <0.46 [facility] Comment on above: Order Comment: Speci men Type: BLOOD SPECIMENOrdering Facility: [facility] Address: [address] [place], [place] [address] Performed By: #### 5 7021-8 ####[facility]CLIA [id number] [address] [address] [place] Eosinophils/100 WBC (Bld) 1.9 % Normal [facility] Comment on above: Order Comment: Speci men Type: BLOOD SPECIMENOrdering Facility: [facility] Address: [address] [place] [address] Performed By: #### 5 7021-8 ####[facility] [id number] [address], [place] [address] [place] Erythrocyte distribution width (RBC) [Ratio] 13.2 % Normal 11.5-15.0 [facility] Comment on above: Order Comment: Speci men Type: BLOOD SPECIMENOrdering Facility: [facility] Address: [address] [place] [address] Performed By: #### 5 7021-8 ####[facility]CL[facility] [id number] [place] [id number] [place] Hematocrit (Bld) [Volume fraction] 41.6 % Normal 36.0-46.0 [facility] Comment on above: Order Comment: Speci men Type: BLOOD SPECIMENOrdering Facility: [facility] Address: [address] [place], [place] [address] Performed By: #### 5 7021-8 ####[facility] [id number] [address] [address] [place] Hemoglobin (Bld) [Mass/Vol] 13.8 g/dL Normal 11.5-15.5 [facility] Comment on above: Order Comment: Speci men Type: BLOOD SPECIMENOrdering Facility: [facility] Address: [address] [place], [place] [address] Performed By: #### 5 7021-8 ####[facility]CL[facility] [id number] [place] [address] [place] Immature granulocytes (Bld) [#/Vol] 0.06 10*3/uL Normal <0.10 [facility] Comment on above: Order Comment: Speci men Type: BLOOD SPECIMENOrdering Facility: [facility] Address: [address] [place] [address] Performed By: #### 5 7021-8 ####[facility] [id number] [place] [address] [place] Immature granulocytes/100 WBC (Bld) 0.6 % Normal [facility] Comment on above: Order Comment: Speci men Type: BLOOD SPECIMENOrdering Facility: [facility] Address: [address] [place] [address] Performed By: #### 5 7021-8 ####[facility]CL[facility] [id number] [place] [address] [place] Lymphocytes (Bld) [#/Vol] 2.94 10*3/uL Normal 1.00-4.00 [facility] Comment on above: Order Comment: Speci men Type: BLOOD SPECIMENOrdering Facility: [facility] Address: [address] [place] [address] Performed By: #### 5 7021-8 ####[facility]CL[facility] [id number] [place] [address] [place] Lymphocytes/100 WBC (Bld) 28.7 % Normal [facility] Comment on above: Order Comment: Speci men Type: BLOOD SPECIMENOrdering Facility: [facility] Address: [address] [place] [address] Performed By: #### 5 7021-8 ####[facility]CL[facility] [id number] [place] [address] [place] MCH (RBC) [Entitic mass] 30.7 pg Normal 26.0-34.0 [facility] Comment on above: Order Comment: Speci men Type: BLOOD SPECIMENOrdering Facility: [facility] Address: [address] [place] [address] Performed By: #### 5 7021-8 ####[facility]CL[facility] [id number] [place] [id number] [place] MCHC (RBC) [Mass/Vol] 33.2 g/dL Normal 30.5-36.0 [facility] Comment on above: Order Comment: Speci men Type: BLOOD SPECIMENOrdering Facility: [facility] Address: [address] [place] [address] Performed By: #### 5 7021-8 ####[facility] [id number] [place] [address] [place] MCV (RBC) [Entitic vol] 92.4 fL Normal 80.0-100.0 C [facility] Comment on above: Order Comment: Speci men Type: BLOOD SPECIMENOrdering Facility: [facility] Address: [address] [place] [address] Performed By: #### 5 7021-8 ####[facility] [id number] [place] [address] [place] Monocytes (Bld) [#/Vol] 0.86 10*3/uL Normal <0.87 [facility] Comment on above: Order Comment: Speci men Type: BLOOD SPECIMENOrdering Facility: [facility] Address: [address] [place] [address] Performed By: #### 5 7021-8 ####[facility] [id number] [place] [address] [place] Monocytes/100 WBC (Bld) 8.4 % Normal C [facility] Comment on above: Order Comment: Speci men Type: BLOOD SPECIMENOrdering Facility: [facility] Address: [address] [place] [address] Performed By: #### 5 7021-8 ####[facility]CLIA [id number] [address] [place] [address] [place] Neutrophils (Bld) [#/Vol] 6.13 10*3/uL Normal 1.45-7.50 [facility] Comment on above: Order Comment: Speci men Type: BLOOD SPECIMENOrdering Facility: [facility] Address: [address] [place] [address] Performed By: #### 5 7021-8 ####[facility] [id number] [address], [place] [address] [place] Neutrophils/100 WBC (Bld) 59.6 % Normal [facility] Comment on above: Order Comment: Speci men Type: BLOOD SPECIMENOrdering Facility: [facility] Address: [address] [place] [address] Performed By: #### 5 7021-8 ####[facility]CL[facility] [id number] [place] [address] [place] Nucleated RBC (Bld) [#/Vol] 10*3/uL Normal <0.01 [facility] Comment on above: Order Comment: Speci men Type: BLOOD SPECIMENOrdering Facility: [facility] Address: [address] [place] [address] Performed By: #### 5 7021-8 ####[facility] [id number] [place] [id number] [place] Nucleated RBC/100 WBC (Bld) [Ratio] 0.0 /100 WBC Normal [facility] Comment on above: Order Comment: Speci men Type: BLOOD SPECIMENOrdering Facility: [facility] Address: [address] [place] [address] Performed By: #### 5 7021-8 ####[facility]CL[facility] [id number] [address], [facility]95 [place] Platelet mean volume (Bld) [Entitic vol] 10.9 fL Normal 9.0-12.7 [facility] Comment on above: Order Comment: Speci men Type: BLOOD SPECIMENOrdering Facility: [facility] Address: [address] [place] [address] Performed By: #### 5 7021-8 ####[facility]CLIA [id number] [place] [address] [place] Platelets (Bld) [#/Vol] 416 10*3/uL High 150-400 [facility] Comment on above: Order Comment: Speci men Type: BLOOD SPECIMENOrdering Facility: [facility] Address: [address] [place] [address] Performed By: #### 5 7021-8 ####[facility] [id number] [place] [address] [place] RBC (Bld) [#/Vol] 4.50 10*6/uL Normal 3.90-5.20 [facility] Comment on above: Order Comment: Speci men Type: BLOOD SPECIMENOrdering Facility: [facility] Address: [address] [place] [address] Performed By: #### 5 7021-8 ####[facility] [id number] [place] [address] [place] WBC (Bld) [#/Vol] 10.26 10*3/uL Normal 3.70-11.00 [facility] Comment on above: Order Comment: Speci men Type: BLOOD SPECIMENOrdering Facility: [facility] Address: [address] [place] [address] Performed By: #### 5 7021-8 ####[facility] [id number] [place] [id number] [place] CONSULTon 12-20-2024 CONSULT Normal [facility] CONSULT Normal [facility] CONSULT PROGon 12-20-2024 CONSULT PROG Normal [facility] Comprehensive metabolic 2000 panelon 12-20-2024 Albumin [Mass/Vol] 3.2 g/dL Low 3.9-4.9 [facility] Comment on above: Order Comment: Speci men Type: BLOOD SPECIMENOrdering Facility: [facility] Address: [address] [place] [address] Performed By: #### 1 9123-9, 2777-1, 06125-2 ####[facility] LABCLIA [id number] [place] [address] [place] ALP [Catalytic activity/Vol] 84 U/L Normal 34-123 [facility] Comment on above: Order Comment: Speci men Type: BLOOD SPECIMENOrdering Facility: [facility] Address: [address] [place] [address] Performed By: #### 1 9123-9, 27771, 72670-3 ####[facility] LABCLIA [id number] [place] [address] [place] ALT [Catalytic activity/Vol] 42 U/L High 7-38 [facility] Comment on above: Order Comment: Speci men Type: BLOOD SPECIMENOrdering Facility: [facility] Address: [address] [place] [address] Performed By: #### 1 9123-9, 2771, 34987-4 ####[facility] LABCLIA [id number] [place] [id number] [place] Anion gap [Moles/Vol] 12 mmol/L Normal 8-15 [facility] Comment on above: Order Comment: Speci men Type: BLOOD SPECIMENOrdering Facility: [facility] Address: [address] [place] [address] Performed By: #### 1 9123-9, 2771, 27495-9 ####[facility] LABCLIA [id number] [address] [address] [place] AST [Catalytic activity/Vol] 33 U/L Normal 13-35 [facility] Comment on above: Order Comment: Speci men Type: BLOOD SPECIMENOrdering Facility: [facility] Address: [address] [place] [address] Performed By: #### 1 9123-9, 2776-07, ####[facility] LABCLIA [id number] [address] [address] [place] Bilirubin [Mass/Vol] mg/dL Low 0.2-1.3 [facility] Comment on above: Order Comment: Speci men Type: BLOOD SPECIMENOrdering Facility: [facility] Address: [address] [place] [address] Performed By: #### 1 9123-9, 27701-01, ####[facility] LABCLIA [id number] [address] [address] [place] Calcium [Mass/Vol] 9.5 mg/dL Normal 8.5-10.2 [facility] Comment on above: Order Comment: Speci men Type: BLOOD SPECIMENOrdering Facility: [facility] Address: [address] [place] [address] Performed By: #### 1 9123-9, 2776-07, ####[facility] LABCLIA [id number] [address] [address] [place] Chloride [Moles/Vol] 106 mmol/L Normal 98-107 [facility] Comment on above: Order Comment: Speci men Type: BLOOD SPECIMENOrdering Facility: [facility] Address: [address] [place] [address] Performed By: #### 1 9123-9, 2776-07, ####[facility]CLIA [id number] [facility] [address] [address] [place] CO2 [Moles/Vol] 21 mmol/L Low 22-30 [facility] Comment on above: Order Comment: Speci men Type: BLOOD SPECIMENOrdering Facility: [facility] Address: [address] [place] [id number] Performed By: #### 1 9123-9, 2776-07, ####[facility] LABIA [id number] [address] [address] [place] Creatinine [Mass/Vol] 1.50 mg/dL High 0.58-0.96 [facility] Comment on above: Order Comment: Speci men Type: BLOOD SPECIMENOrdering Facility: [facility] Address: [address] [place] [address] Performed By: #### 1 9123-9, 2776-07, ####[facility] LABIA [id number] [address] [address] [place] Creatinine and Glomerular filtration rate.predicted panel (S/P/Bld) 38 mL/min/1.73m??? Low >=60 [facility] Comment on above: Order Comment: Speci men Type: BLOOD SPECIMENOrdering Facility: [facility] Address: [address] [place] [address] Result Comment: Maru mated Glomerular Filtration Rate [...] accurately reflect actual GFR. Performed By: #### 1 9123-9, 2776-07, ####[facility] LABIA [id number] [address] [address] [place] Glucose [Mass/Vol] 111 mg/dL High 74-99 [facility] Comment on above: Order Comment: Speci men Type: BLOOD SPECIMENOrdering Facility: [facility] Address: [address] [place], [place] [address] Result Comment: The [place] [employer] (ADA) provides guidance for cutoff values for fasting glucose and random glucose. The ADA defines fasting as no caloric intake for at least 8 hours. Fasting plasma glucose results between 100 to 125 mg/dL indicate increased risk for diabetes (prediabetes).Fasting plasma glucose results greater than or equal to 126 mg/dL meet the criteria for diagnosis of diabetes. In the absence of unequivocal hyperglycemia, results should be confirmed by repeat testing. In a patient with classic symptoms of hyperglycemia or hyperglycemic crisis, random plasma glucose results greater than or equal to 200 mg/dL meet the criteria for diagnosis of diabetes.Reference: Standards of Medical Care in Diabetes 2016, [place] [employer]. Diabetes Care. 2016.39(Suppl 1). Performed By: #### 1 9123-9, 2777-, 10389-4 ####[facility] LABIA [id number] [place] [address] [place] Potassium [Moles/Vol] 4.6 mmol/L Normal 3.7-5.1 [facility] Comment on above: Order Comment: Speci men Type: BLOOD SPECIMENOrdering Facility: [facility] Address: [address] [place] [address] Performed By: #### 1 9123-9, 27701-01, 44899-6 ####[facility] LABIA [id number] [place] [address] [place] Protein [Mass/Vol] 6.0 g/dL Low 6.3-8.0 [facility] Comment on above: Order Comment: Speci men Type: BLOOD SPECIMENOrdering Facility: [facility] Address: [address] [place] [address] Performed By: #### 1 9123-9, 2777, 24678-6 ####[facility] LABIA [id number] [place] [address] [place] Sodium [Moles/Vol] 139 mmol/L Normal 136-144 [facility] Comment on above: Order Comment: Speci men Type: BLOOD SPECIMENOrdering Facility: [facility] Address: [address] [place] [address] Performed By: #### 1 9123-9, 2777-1, 88298-3 ####[facility] LABCLIA [id number] [address] [address] [place] Urea nitrogen [Mass/Vol] 32 mg/dL High 7-21 [facility] Comment on above: Order Comment: Speci men Type: BLOOD SPECIMENOrdering Facility: [facility] Address: [address] [place] [address] Performed By: #### 1 9123-9, 2777-1, 28963-1 ####[facility] LABCLIA [id number] [place] [address] [place] Gas and Carbon monoxide pane l (BldV)on 12-20-2024 BASE DEFICIT, VENOUS -1 mmol/L Normal -2-0 [facility] Comment on above: Order Comment: Speci men Type: VENOUS BLOOD SPECIMENOrdering Facility: [facility] Address: [address] [place] [address] Performed By: #### 2 4344-4 ####[facility] LABCLIA [id number] [place] [address] [place] Body temperature 98.6 [degF] Normal [facility] Comment on above: Order Comment: Speci men Type: VENOUS BLOOD SPECIMENOrdering Facility: [facility] Address: [address] [place] [address] Performed By: #### 2 4344-4 ####[facility] LABCLIA [id number] [address] [address] [place] Calcium.ionized (Bld) [Mass/Vol] 1.26 mmol/L Normal 1.08-1.30 [facility] Comment on above: Order Comment: Speci men Type: VENOUS BLOOD SPECIMENOrdering Facility: [facility] Address: [address] [place] [address] Performed By: #### 2 4344-4 ####[facility] LABCLIA [id number] [place] [address] [place] Calcium.ionized adjusted to pH 7.4 (BldA) [Moles/Vol] 1.24 mmol/L Normal 1.08-1.30 [facility] Comment on above: Order Comment: Speci men Type: VENOUS BLOOD SPECIMENOrdering Facility: [facility] Address: [address] [place] [address] Performed By: #### 2 4344-4 ####[facility] LABIA [id number] [place] [address] [place] Carboxyhemoglobin (BldV) [Mass fraction] 0.9 % Normal 0.0-2.0 [facility] Comment on above: Order Comment: Speci men Type: VENOUS BLOOD SPECIMENOrdering Facility: [facility] Address: [address] [place] [address] Result Comment: Carb oxyhemoglobin Reference Range for Smokers: 2.0-8.0% Performed By: #### 2 4344-4 ####[facility] [id number] [place] [address] [place] CO2 (BldV) [Partial pressure] 43 mm[Hg] Normal 42-55 [facility] Comment on above: Order Comment: Speci men Type: VENOUS BLOOD SPECIMENOrdering Facility: [facility] Address: [address] [place] [address] Performed By: #### 2 4344-4 ####[facility] LABIA [id number] [place] [address] [place] Glucose [Mass/Vol] 120 mg/dL High 60-105 [facility] Comment on above: Order Comment: Speci men Type: VENOUS BLOOD SPECIMENOrdering Facility: [facility] Address: [address] [place] [address] Performed By: #### 2 4344-4 ####[facility] LABIA [id number] [place] [address] [place] HCO3 (Bld) [Moles/Vol] 24 mmol/L Normal 24-28 [facility] Comment on above: Order Comment: Speci men Type: VENOUS BLOOD SPECIMENOrdering Facility: [facility] Address: [address] [place] [address] Performed By: #### 2 4344-4 ####[facility] LABIA [id number] [place] [address] [place] Hematocrit (Bld) [Volume fraction] 42.1 % Normal 36.0-46.0 [facility] Comment on above: Order Comment: Speci men Type: VENOUS BLOOD SPECIMENOrdering Facility: [facility] Address: [address] [place] [address] Performed By: #### 2 4344-4 ####[facility] LABIA [id number] [place] [address] [place] Hemoglobin (Bld) [Mass/Vol] 13.7 g/dL Normal 11.5-15.5 [facility] Comment on above: Order Comment: Speci men Type: VENOUS BLOOD SPECIMENOrdering Facility: [facility] Address: [address] [place] [address] Performed By: #### 2 4344-4 ####[facility] LABIA [id number] [place] [address] [place] Lactate [Moles/Vol] 0.8 mmol/L Normal 0.5-2.2 [facility] Comment on above: Order Comment: Speci men Type: VENOUS BLOOD SPECIMENOrdering Facility: [facility] Address: [address] [place] [address] Performed By: #### 2 4344-4 ####[facility] LABCLIA [id number] [place] [id number] [place] Methemoglobin (Bld) [Mass fraction] 0.4 % Normal 0.0-1.5 [facility] Comment on above: Order Comment: Speci men Type: VENOUS BLOOD SPECIMENOrdering Facility: [facility] Address: [address] [place], [place] [address] Performed By: #### 2 4344-4 ####[facility] LABCLIA [id number] [address] [address] [place] O2 THERAPY NC Humid = Nasal Cannula-Humidified (7-15 LPM) Normal [facility] Comment on above: Order Comment: Speci men Type: VENOUS BLOOD SPECIMENOrdering Facility: [facility] Address: [address] [place], [place] [address] Performed By: #### 2 4344-4 ####[facility] LABCLIA [id number] [address] [address] [place] Oxygen (BldV) [Partial pressure] 50 mm[Hg] High 35-45 [facility] Comment on above: Order Comment: Speci men Type: VENOUS BLOOD SPECIMENOrdering Facility: [facility] Address: [address] [place], [place] [address] Performed By: #### 2 4344-4 ####[facility] LABCLIA [id number] [address] [address] [place] Oxygen saturation in Venous blood 82 % Normal 60-85 [facility] Comment on above: Order Comment: Speci men Type: VENOUS BLOOD SPECIMENOrdering Facility: [facility] Address: [address] [place], [place] [address] Performed By: #### 2 4344-4 ####[facility] LABCLIA [id number] [address] [address] [place] Oxyhemoglobin (BldV) [Mass fraction] 80 % Normal 60-85 [facility] Comment on above: Order Comment: Speci men Type: VENOUS BLOOD SPECIMENOrdering Facility: [facility] Address: [address] [place] [address] Performed By: #### 2 4344-4 ####[facility] LABCLIA [id number] [place] [id number] [place] pH (BldV) 7.37 [pH] Normal 7.32-7.42 [facility] Comment on above: Order Comment: Speci men Type: VENOUS BLOOD SPECIMENOrdering Facility: [facility] Address: [address] [place] [address] Performed By: #### 2 4344-4 ####[facility] LABCLIA [id number] [place] [address] [place] Potassium [Moles/Vol] 4.4 mmol/L Normal 3.5-5.0 [facility] Comment on above: Order Comment: Speci men Type: VENOUS BLOOD SPECIMENOrdering Facility: [facility] Address: [address] [place] [address] Performed By: #### 2 4344-4 ####[facility] LABCLIA [id number] [place] [address] [place] Sodium [Moles/Vol] 135 mmol/L Low 136-144 [facility] Comment on above: Order Comment: Speci men Type: VENOUS BLOOD SPECIMENOrdering Facility: [facility] Address: [address] [place] [address] Performed By: #### 2 4344-4 ####[facility] LABCLIA [id number] [place] [address] [place] Magnesium SerPl-mCncon 12-20 Magnesium [Mass/Vol] 2.2 mg/dL Normal 1.7-2.3 [facility] Comment on above: Order Comment: Speci men Type: BLOOD SPECIMENOrdering Facility: [facility] Address: [address] [place] [address] Performed By: #### 1 9123-9, 2777-1, 74477-5 ####[facility] LABCLIA [id number] [place] [id number] [place] PTT, ANTICOAGULANT THERAPYon 12-20-2024 aPTT Coag (PPP) [Time] 68.0 s High 23.0-32.4 [facility] Comment on above: Order Comment: Speci men Type: BLOOD SPECIMENOrdering Facility: [facility] Address: [address] [place] [address] Performed By: #### P TTAC ####[facility] LABCLIA [id number] [place] [address] [place] aPTT Coag (PPP) [Time] 79.1 s High 23.0-32.4 [facility] Comment on above: Order Comment: Speci men Type: BLOOD SPECIMENOrdering Facility: [facility] Address: [address] [place] [address] Performed By: #### P TTAC ####[facility] LABCLIA [id number] [place] [address] [place] aPTT Coag (PPP) [Time] 67.7 s High 23.0-32.4 [facility] Comment on above: Order Comment: Speci men Type: BLOOD SPECIMENOrdering Facility: [facility] Address: [address] [place] [address] Performed By: #### P TTAC ####[facility] LABCLIA [id number] [place] [id number] [place] Phosphate SerPl-mCncon 12-20 Phosphate [Mass/Vol] 4.4 mg/dL Normal 2.7-4.8 [facility] Comment on above: Order Comment: Speci men Type: BLOOD SPECIMENOrdering Facility: [facility] Address: [address] [place] [address] Performed By: #### 1 9123-9, 2777-1, 68127-6 ####[facility] LABCLIA [id number] [place] [id number] [place] TYPE + SCREENon 12-20-2024 ABO O Normal [facility] Comment on above: Order Comment: Speci men Type: BLOOD SPECIMENOrdering Facility: [facility] Address: [address] [place] [address] Performed By: #### T SCR ####[facility]ANKCLIA [id number] [address] [address] [place] Rh Nom (Bld) Positive Normal [facility] Comment on above: Order Comment: Speci men Type: BLOOD SPECIMENOrdering Facility: [facility] Address: [address] [place] [address] Performed By: #### T SCR ####[facility] BANKCLIA [id number] [place] [address] [place] TYPE AND SCREEN EXPIRATION 12/23/2024 23:59 Normal [facility] Comment on above: Order Comment: Speci men Type: BLOOD SPECIMENOrdering Facility: [facility] Address: [address] [place] [address] Performed By: #### T SCR ####[facility] BLOOD BANKCLIA [id number] [place] [address] [place] XR CHEST 1V FRONTALon 2024 XR CHEST 1V FRONTAL Normal [facility] CASE MANAGEMon 12-19-2024 CASE MANAGEM Normal [facility] CBC panel Auto (Bld)on 12-19 Erythrocyte distribution width (RBC) [Ratio] 13.1 % Normal 11.5-15.0 [facility] Comment on above: Order Comment: Speci men Type: BLOOD SPECIMENOrdering Facility: [facility] Address: [address] [place] [address] Performed By: #### 5 8410-2 ####[facility] LABCLIA [id number] [address] [place] Hematocrit (Bld) [Volume fraction] 42.4 % Normal 36.0-46.0 [facility] Comment on above: Order Comment: Speci men Type: BLOOD SPECIMENOrdering Facility: [facility] Address: [address] [place] [address] Performed By: #### 5 8410-2 ####[facility] LABCLIA [id number] [place] [address] [place] Hemoglobin (Bld) [Mass/Vol] 13.9 g/dL Normal 11.5-15.5 [facility] Comment on above: Order Comment: Speci men Type: BLOOD SPECIMENOrdering Facility: [facility] Address: [address] [place] [address] Performed By: #### 5 8410-2 ####[facility] LABIA [id number] [place] [address] [place] MCH (RBC) [Entitic mass] 30.5 pg Normal 26.0-34.0 [facility] Comment on above: Order Comment: Speci men Type: BLOOD SPECIMENOrdering Facility: [facility] Address: [address] [place] [address] Performed By: #### 5 8410-2 ####[facility] LABIA [id number] [place] [address] [place] MCHC (RBC) [Mass/Vol] 32.8 g/dL Normal 30.5-36.0 [facility] Comment on above: Order Comment: Speci men Type: BLOOD SPECIMENOrdering Facility: [facility] Address: [address] [place] [address] Performed By: #### 5 8410-2 ####[facility] LABIA [id number] [place] [address] [place] MCV (RBC) [Entitic vol] 93.0 fL Normal 80.0-100.0 C [facility] Comment on above: Order Comment: Speci men Type: BLOOD SPECIMENOrdering Facility: [facility] Address: [address] [place] [address] Performed By: #### 5 8410-2 ####[facility] LABCLIA [id number] [place] [address] [place] Nucleated RBC (Bld) [#/Vol] 0.02 10*3/uL High <0.01 [facility] Comment on above: Order Comment: Speci men Type: BLOOD SPECIMENOrdering Facility: [facility] Address: [address] [place] [address] Performed By: #### 5 8410-2 ####[facility] LABCLIA [id number] [place] [address] [place] Platelet mean volume (Bld) [Entitic vol] 10.3 fL Normal 9.0-12.7 [facility] Comment on above: Order Comment: Speci men Type: BLOOD SPECIMENOrdering Facility: [facility] Address: [address] [place] [address] Performed By: #### 5 8410-2 ####[facility] LABCLIA [id number] [place] [address] [place] Platelets (Bld) [#/Vol] 425 10*3/uL High 150-400 [facility] Comment on above: Order Comment: Speci men Type: BLOOD SPECIMENOrdering Facility: [facility] Address: [address] [place] [address] Performed By: #### 5 8410-2 ####[facility] LABCLIA [id number] [place] [address] [place] RBC (Bld) [#/Vol] 4.56 10*6/uL Normal 3.90-5.20 [facility] Comment on above: Order Comment: Speci men Type: BLOOD SPECIMENOrdering Facility: [facility] Address: [address] [place] [address] Performed By: #### 5 8410-2 ####[facility] LABCLIA [id number] [place] [address] [place] WBC (Bld) [#/Vol] 10.85 10*3/uL Normal 3.70-11.00 [facility] Comment on above: Order Comment: Speci men Type: BLOOD SPECIMENOrdering Facility: [facility] Address: [address] [place] [address] Performed By: #### 5 8410-2 ####[facility] LABIA [id number] [place] [address] [place] Erythrocyte distribution width (RBC) [Ratio] 13.1 % Normal 11.5-15.0 [facility] Comment on above: Order Comment: Speci men Type: BLOOD SPECIMENOrdering Facility: [facility] Address: [address] [place] [address] Performed By: #### 5 8410-2 ####[facility] LABIA [id number] [place] [address] [place] Hematocrit (Bld) [Volume fraction] 42.6 % Normal 36.0-46.0 [facility] Comment on above: Order Comment: Speci men Type: BLOOD SPECIMENOrdering Facility: [facility] Address: [address] [place] [address] Performed By: #### 5 8410-2 ####[facility] LABIA [id number] [place] [address] [place] Hemoglobin (Bld) [Mass/Vol] 13.6 g/dL Normal 11.5-15.5 [facility] Comment on above: Order Comment: Speci men Type: BLOOD SPECIMENOrdering Facility: [facility] Address: [address] [place] [address] Performed By: #### 5 8410-2 ####[facility] LABIA [id number] [place] [address] [place] MCH (RBC) [Entitic mass] 30.3 pg Normal 26.0-34.0 [facility] Comment on above: Order Comment: Speci men Type: BLOOD SPECIMENOrdering Facility: [facility] Address: [address] [place] [address] Performed By: #### 5 8410-2 ####[facility] LABCLIA [id number] [place] [address] [place] MCHC (RBC) [Mass/Vol] 31.9 g/dL Normal 30.5-36.0 [facility] Comment on above: Order Comment: Speci men Type: BLOOD SPECIMENOrdering Facility: [facility] Address: [address] [place] [address] Performed By: #### 5 8410-2 ####[facility] LABCLIA [id number] [place] [address] [place] MCV (RBC) [Entitic vol] 94.9 fL Normal 80.0-100.0 C [facility] Comment on above: Order Comment: Speci men Type: BLOOD SPECIMENOrdering Facility: [facility] Address: [address] [place] [address] Performed By: #### 5 8410-2 ####[facility] LABIA [id number] [place] [address] [place] Nucleated RBC (Bld) [#/Vol] 10*3/uL Normal <0.01 [facility] Comment on above: Order Comment: Speci men Type: BLOOD SPECIMENOrdering Facility: [facility] Address: [address] [place] [address] Performed By: #### 5 8410-2 ####[facility] LABCLIA [id number] [place] [address] [place] Platelet mean volume (Bld) [Entitic vol] 11.4 fL Normal 9.0-12.7 [facility] Comment on above: Order Comment: Speci men Type: BLOOD SPECIMENOrdering Facility: [facility] Address: [address] [place] [address] Performed By: #### 5 8410-2 ####[facility] LABCLIA [id number] [address] [address] [place] Platelets (Bld) [#/Vol] 430 10*3/uL High 150-400 [facility] Comment on above: Order Comment: Speci men Type: BLOOD SPECIMENOrdering Facility: [facility] Address: [address] [place] [address] Performed By: #### 5 8410-2 ####[facility] [id number] [place] [address] [place] RBC (Bld) [#/Vol] 4.49 10*6/uL Normal 3.90-5.20 [facility] Comment on above: Order Comment: Speci men Type: BLOOD SPECIMENOrdering Facility: [facility] Address: [address] [place] [address] Performed By: #### 5 8410-2 ####[facility] [id number] [place] [address] [place] WBC (Bld) [#/Vol] 9.18 10*3/uL Normal 3.70-11.00 [facility] Comment on above: Order Comment: Speci men Type: BLOOD SPECIMENOrdering Facility: [facility] Address: [address] [place] [address] Performed By: #### 5 8410-2 ####[facility] [id number] [place] [id number] [place] CNOVon 12-19-2024 CNOV Normal [facility] CNOV Normal [facility] CONSULT PROGon 12-19-2024 CONSULT PROG Normal [facility] [facility] 2000 panelon 12-19-2024 Albumin [Mass/Vol] 3.3 g/dL Low 3.9-4.9 [facility] Comment on above: Order Comment: Speci men Type: BLOOD SPECIMENOrdering Facility: [facility] Address: [address] [place] [address] Performed By: #### 2 4323-8 ####[facility] LABCLIA [id number] [facility] [id number], [place] [address] [place] ALP [Catalytic activity/Vol] 91 U/L Normal 34-123 [facility] Comment on above: Order Comment: Speci men Type: BLOOD SPECIMENOrdering Facility: [facility] Address: [address] [place] [address] Performed By: #### 2 4323-8 ####[facility] LABCLIA [id number] [facility] [address] [place] [address] [place] ALT [Catalytic activity/Vol] 45 U/L High 7-38 [facility] Comment on above: Order Comment: Speci men Type: BLOOD SPECIMENOrdering Facility: [facility] Address: [address] [place] [address] Performed By: #### 2 4323-8 ####[facility] LABCLIA [id number] [facility] [address], [facility]95 [place] Anion gap [Moles/Vol] 12 mmol/L Normal 8-15 [facility] Comment on above: Order Comment: Speci men Type: BLOOD SPECIMENOrdering Facility: [facility] Address: [address] [place] [address] Performed By: #### 2 4323-8 ####[facility] LABCLIA [id number] [facility] [place] [id number] [place] AST [Catalytic activity/Vol] 42 U/L High 13-35 [facility] Comment on above: Order Comment: Speci men Type: BLOOD SPECIMENOrdering Facility: [facility] Address: [address] [place], [place] [address] Performed By: #### 2 4323-8 ####[facility] LABCLIA [id number] [facility] [address] [address] [place] Bilirubin [Mass/Vol] 0.2 mg/dL Normal 0.2-1.3 [facility] Comment on above: Order Comment: Speci men Type: BLOOD SPECIMENOrdering Facility: [facility] Address: [address] [place] [address] Performed By: #### 2 4323-8 ####[facility] LABCLIA [id number] [address] [address] [place] Calcium [Mass/Vol] 8.9 mg/dL Normal 8.5-10.2 [facility] Comment on above: Order Comment: Speci men Type: BLOOD SPECIMENOrdering Facility: [facility] Address: [address] [place], [place] [address] Performed By: #### 2 4323-8 ####[facility] LABCLIA [id number] [address] [place] [address] [place] Chloride [Moles/Vol] 106 mmol/L Normal 98-107 [facility] Comment on above: Order Comment: Speci men Type: BLOOD SPECIMENOrdering Facility: [facility] Address: [address] [place], [place] [address] Performed By: #### 2 4323-8 ####[facility] LABCLIA [id number] [address] [address] [place] CO2 [Moles/Vol] 19 mmol/L Low 22-30 [facility] Comment on above: Order Comment: Speci men Type: BLOOD SPECIMENOrdering Facility: [facility] Address: [address] [place], [place] [address] Performed By: #### 2 4323-8 ####[facility] LABCLIA [id number] [address] [place] [address] [place] Creatinine [Mass/Vol] 1.42 mg/dL High 0.58-0.96 [facility] Comment on above: Order Comment: Speci men Type: BLOOD SPECIMENOrdering Facility: [facility] Address: [address] [place] [address] Performed By: #### 2 4323-8 ####[facility] LABCLIA [id number] [place] [address] [place] Creatinine and Glomerular filtration rate.predicted panel (S/P/Bld) 40 mL/min/1.73m??? Low >=60 [facility] Comment on above: Order Comment: Marika hammonds Type: BLOOD SPECIMENOrdering Facility: [facility] Address: [address] [place] [address] Result Comment: Maru mated Glomerular Filtration Rate [...] actual GFR. Performed By: #### 2 4323-8 ####[facility] LABIA [id number] [place] [address] [place] Glucose [Mass/Vol] 116 mg/dL High 74-99 [facility] Comment on above: Order Comment: Marika hammonds Type: BLOOD SPECIMENOrdering Facility: [facility] Address: [address] [place] [address] Result Comment: The [place] [employer] (ADA) provides guidance for cutoff values for fasting glucose and random glucose. The ADA defines fasting as no caloric intake for at least 8 hours. Fasting plasma glucose results between 100 to 125 mg/dL indicate increased risk for diabetes (prediabetes).Fasting plasma glucose results greater than or equal to 126 mg/dL meet the criteria for diagnosis of diabetes. In the absence of unequivocal hyperglycemia, results should be confirmed by repeat testing. In a patient with classic symptoms of hyperglycemia or hyperglycemic crisis, random plasma glucose results greater than or equal to 200 mg/dL meet the criteria for diagnosis of diabetes.Reference: Standards of Medical Care in Diabetes 2016, [place] [employer]. Diabetes Care. 2016.39(Suppl 1). Performed By: #### 2 4323-8 ####[facility] LABIA [id number] [place] [id number] [place] Potassium [Moles/Vol] 5.2 mmol/L High 3.7-5.1 [facility] Comment on above: Order Comment: Speci men Type: BLOOD SPECIMENOrdering Facility: [facility] Address: [address] [place] [address] Performed By: #### 2 4323-8 ####[facility] LABCLIA [id number] [facility] [address] [id number], [place] [address] [place] Protein [Mass/Vol] 6.0 g/dL Low 6.3-8.0 [facility] Comment on above: Order Comment: Speci men Type: BLOOD SPECIMENOrdering Facility: [facility] Address: [address] [place], [place] [address] Performed By: #### 2 4323-8 ####[facility] LABCLIA [id number] [facility]ENTIN[facility] [address] [place] [address] [place] Sodium [Moles/Vol] 137 mmol/L Normal 136-144 [facility] Comment on above: Order Comment: Speci men Type: BLOOD SPECIMENOrdering Facility: [facility] Address: [address] [place], [place] [address] Performed By: #### 2 4323-8 ####[facility] LABCLIA [id number] [facility] [address] [place] [address] [place] Urea nitrogen [Mass/Vol] 35 mg/dL High 7-21 [facility] Comment on above: Order Comment: Speci men Type: BLOOD SPECIMENOrdering Facility: [facility] Address: [address] [place] [address] Performed By: #### 2 4323-8 ####[facility] LABCLIA [id number] [facility] [id number] [place] [address] [place] Albumin [Mass/Vol] 3.4 g/dL Low 3.9-4.9 [facility] Comment on above: Order Comment: Speci men Type: BLOOD SPECIMENOrdering Facility: [facility] Address: [address] [place] [address] Performed By: #### 1 9123-9, 2776-07, 14114-7 ####[facility] LABCLIA [id number] [place] [id number] [place] ALP [Catalytic activity/Vol] 101 U/L Normal 34-123 [facility] Comment on above: Order Comment: Speci men Type: BLOOD SPECIMENOrdering Facility: [facility] Address: [address] [place] [address] Performed By: #### 1 9123-9, 2776-07, 08829-8 ####[facility] LABCLIA [id number] [place] [address] [place] ALT [Catalytic activity/Vol] 42 U/L High 7-38 [facility] Comment on above: Order Comment: Speci men Type: BLOOD SPECIMENOrdering Facility: [facility] Address: [address] [place] [address] Performed By: #### 1 9123-9, 2776-07, 91674-1 ####[facility] LABCLIA [id number] [place] [address] [place] Anion gap [Moles/Vol] 13 mmol/L Normal 8-15 [facility] Comment on above: Order Comment: Speci men Type: BLOOD SPECIMENOrdering Facility: [facility] Address: [address] [place] [address] Performed By: #### 1 9123-9, 2776-07, 70767-7 ####[facility] LABCLIA [id number] [address] [address] [place] AST [Catalytic activity/Vol] 37 U/L High 13-35 [facility] Comment on above: Order Comment: Speci men Type: BLOOD SPECIMENOrdering Facility: [facility] Address: [address] [place] [address] Performed By: #### 1 9123-9, 27701-01, 17531-7 ####[facility] LABCLIA [id number] [address] [address] [place] Bilirubin [Mass/Vol] 0.2 mg/dL Normal 0.2-1.3 [facility] Comment on above: Order Comment: Speci men Type: BLOOD SPECIMENOrdering Facility: [facility] Address: [address] [place] [address] Performed By: #### 1 9123-9, 2776-07, ####[facility] LABCLIA [id number] [address] [address] [place] Calcium [Mass/Vol] 9.7 mg/dL Normal 8.5-10.2 [facility] Comment on above: Order Comment: Speci men Type: BLOOD SPECIMENOrdering Facility: [facility] Address: [address] [place] [address] Performed By: #### 1 9123-9, 2776-07, ####[facility] LABCLIA [id number] [place] [id number] [place] Chloride [Moles/Vol] 105 mmol/L Normal 98-107 [facility] Comment on above: Order Comment: Speci men Type: BLOOD SPECIMENOrdering Facility: [facility] Address: [address] [place], [place] [address] Performed By: #### 1 9123-9, 2776-07, ####[facility] LABCLIA [id number] [address] [address] [place] CO2 [Moles/Vol] 20 mmol/L Low 22-30 [facility] Comment on above: Order Comment: Speci men Type: BLOOD SPECIMENOrdering Facility: [facility] Address: [address] [place], [place] [address] Performed By: #### 1 9123-9, 27701-01, 49551-5 ####[facility] LABCLIA [id number] [place] [id number] [place] Creatinine [Mass/Vol] 1.49 mg/dL High 0.58-0.96 [facility] Comment on above: Order Comment: Marika hammonds Type: BLOOD SPECIMENOrdering Facility: [facility] Address: [address] [place] [address] Performed By: #### 1 9123-9, 2777-, 92844-9 ####[facility] [id number] [address] [place] Creatinine and Glomerular filtration rate.predicted panel (S/P/Bld) 38 mL/min/1.73m??? Low >=60 [facility] Comment on above: Order Comment: Marika hammonds Type: BLOOD SPECIMENOrdering Facility: [facility] Address: [address] [place] [address] Result Comment: Maru mated Glomerular Filtration Rate [...] accurately reflect actual GFR. Performed By: #### 1 9123-9, 2777-, ####[facility] LABIA [id number] [place] [id number] [place] Glucose [Mass/Vol] 93 mg/dL Normal 74-99 [facility] Comment on above: Order Comment: Marika hammonds Type: BLOOD SPECIMENOrdering Facility: [facility] Address: [address] [place] [address] Result Comment: The [place] Diabetes [employer] (ADA) provides guidance for cutoff values for fasting glucose and random glucose. The ADA defines fasting as no caloric intake for at least 8 hours. Fasting plasma glucose results between 100 to 125 mg/dL indicate increased risk for diabetes (prediabetes).Fasting plasma glucose results greater than or equal to 126 mg/dL meet the criteria for diagnosis of diabetes. In the absence of unequivocal hyperglycemia, results should be confirmed by repeat testing. In a patient with classic symptoms of hyperglycemia or hyperglycemic crisis, random plasma glucose results greater than or equal to 200 mg/dL meet the criteria for diagnosis of diabetes.Reference: Standards of Medical Care in Diabetes 2016, [place] [employer]. Diabetes Care. 2016.39(Suppl 1). Performed By: #### 1 9123-9, 2776-07, ####[facility] LABCLIA [id number] [address] [address] [place] Potassium [Moles/Vol] 4.6 mmol/L Normal 3.7-5.1 [facility] Comment on above: Order Comment: Speci men Type: BLOOD SPECIMENOrdering Facility: [facility] Address: [address] [place] [address] Performed By: #### 1 9123-9, 2776-07, ####[facility] LABCLIA [id number] [place] [id number] [place] Protein [Mass/Vol] 6.4 g/dL Normal 6.3-8.0 [facility] Comment on above: Order Comment: Marika hammonds Type: BLOOD SPECIMENOrdering Facility: [facility] Address: [address] [place] [address] Performed By: #### 1 9123-9, 2776-07, ####[facility] LABCLIA [id number] [place] [id number] [place] Sodium [Moles/Vol] 138 mmol/L Normal 136-144 [facility] Comment on above: Order Comment: Speci men Type: BLOOD SPECIMENOrdering Facility: [facility] Address: [address] [place], [place] [address] Performed By: #### 1 9123-9, 2776-07, ####[facility] LABCLIA [id number] [facility] [address] [place] [address] [place] Urea nitrogen [Mass/Vol] 37 mg/dL High 7-21 [facility] Comment on above: Order Comment: Speci men Type: BLOOD SPECIMENOrdering Facility: [facility] Address: [address] [place] [address] Performed By: #### 1 9123-9, 2777-1, 78831-9 ####[facility] LABCLIA [id number] [place] [address] [place] ECHO LIMITEDon 12-19-2024 ECHO LIMITED Normal [facility] Gas and Carbon monoxide pane l (BldV)on 12-19-2024 BASE DEFICIT, VENOUS -2 mmol/L Normal -2-0 [facility] Comment on above: Order Comment: Speci men Type: VENOUS BLOOD SPECIMENOrdering Facility: [facility] Address: [address] [place] [address] Performed By: #### 2 4344-4 ####[facility] LABCLIA [id number] [place] [address] [place] Body temperature 97.88 [degF] Normal [facility] Comment on above: Order Comment: Speci men Type: VENOUS BLOOD SPECIMENOrdering Facility: [facility] Address: [address] [place] [address] Performed By: #### 2 4344-4 ####[facility] LABCLIA [id number] [place] [address] [place] Calcium.ionized (Bld) [Mass/Vol] 1.20 mmol/L Normal 1.08-1.30 [facility] Comment on above: Order Comment: Speci men Type: VENOUS BLOOD SPECIMENOrdering Facility: [facility] Address: [address] [place] [address] Performed By: #### 2 4344-4 ####[facility] LABCLIA [id number] [place] [address] [place] Calcium.ionized adjusted to pH 7.4 (BldA) [Moles/Vol] 1.13 mmol/L Normal 1.08-1.30 [facility] Comment on above: Order Comment: Speci men Type: VENOUS BLOOD SPECIMENOrdering Facility: [facility] Address: [address] [place] [address] Performed By: #### 2 4344-4 ####[facility] LABCLIA [id number] [address] [address] [place] Carboxyhemoglobin (BldV) [Mass fraction] 0.8 % Normal 0.0-2.0 [facility] Comment on above: Order Comment: Speci men Type: VENOUS BLOOD SPECIMENOrdering Facility: [facility] Address: [address] [place] [address] Result Comment: Carb oxyhemoglobin Reference Range for Smokers: 2.0-8.0% Performed By: #### 2 4344-4 ####[facility] LABCLIA [id number] [place] [id number] [place] CO2 (BldV) [Partial pressure] 52 mm[Hg] Normal 42-55 [facility] Comment on above: Order Comment: Speci men Type: VENOUS BLOOD SPECIMENOrdering Facility: [facility] Address: [address] [place] [address] Performed By: #### 2 4344-4 ####[facility] LABCLIA [id number] [address] [address] [place] CO2 adjusted to patient's actual temperature (BldV) [Partial pressure] 51 mmHg Normal 42-55 [facility] Comment on above: Order Comment: Speci men Type: VENOUS BLOOD SPECIMENOrdering Facility: [facility] Address: [address] [place] [address] Performed By: #### 2 4344-4 ####[facility] LABCLIA [id number] [address] [address] [place] Glucose [Mass/Vol] 120 mg/dL High 60-105 [facility] Comment on above: Order Comment: Speci men Type: VENOUS BLOOD SPECIMENOrdering Facility: [facility] Address: [address] [place] [address] Performed By: #### 2 4344-4 ####[facility] LABCLIA [id number] [place] [address] [place] HCO3 (Bld) [Moles/Vol] 24 mmol/L Normal 24-28 [facility] Comment on above: Order Comment: Speci men Type: VENOUS BLOOD SPECIMENOrdering Facility: [facility] Address: [address] [place] [address] Performed By: #### 2 4344-4 ####[facility] LABCLIA [id number] [place] [address] [place] Hematocrit (Bld) [Volume fraction] 42.7 % Normal 36.0-46.0 [facility] Comment on above: Order Comment: Speci men Type: VENOUS BLOOD SPECIMENOrdering Facility: [facility] Address: [address] [place] [address] Performed By: #### 2 4344-4 ####[facility] LABCLIA [id number] [place] [address] [place] Hemoglobin (Bld) [Mass/Vol] 13.9 g/dL Normal 11.5-15.5 [facility] Comment on above: Order Comment: Speci men Type: VENOUS BLOOD SPECIMENOrdering Facility: [facility] Address: [address] [place], [place] [address] Performed By: #### 2 4344-4 ####[facility] LABCLIA [id number] [place] [id number] [place] Lactate [Moles/Vol] 0.9 mmol/L Normal 0.5-2.2 [facility] Comment on above: Order Comment: Speci men Type: VENOUS BLOOD SPECIMENOrdering Facility: [facility] Address: [address] [place], [place] [address] Performed By: #### 2 4344-4 ####[facility] LABCLIA [id number] [place] [id number] [place] LITERS 15 Liters/min Normal [facility] Comment on above: Order Comment: Speci men Type: VENOUS BLOOD SPECIMENOrdering Facility: [facility] Address: [address] [place] [address] Performed By: #### 2 4344-4 ####[facility] LABCLIA [id number] [place] [address] [place] Methemoglobin (Bld) [Mass fraction] 0.6 % Normal 0.0-1.5 [facility] Comment on above: Order Comment: Speci men Type: VENOUS BLOOD SPECIMENOrdering Facility: [facility] Address: [address] [place] [address] Performed By: #### 2 4344-4 ####[facility] LABCLIA [id number] [place] [address] [place] O2 THERAPY NC Humid = Nasal Cannula-Humidified (7-15 LPM) Normal [facility] Comment on above: Order Comment: Speci men Type: VENOUS BLOOD SPECIMENOrdering Facility: [facility] Address: [address] [place] [address] Performed By: #### 2 4344-4 ####[facility] LABCLIA [id number] [place] [id number] [place] Oxygen (BldV) [Partial pressure] 36 mm[Hg] Normal 35-45 [facility] Comment on above: Order Comment: Speci men Type: VENOUS BLOOD SPECIMENOrdering Facility: [facility] Address: [address] [place], [place] [address] Performed By: #### 2 4344-4 ####[facility] LABCLIA [id number] [place] [id number] [place] Oxygen adjusted to patient's actual temperature (BldV) [Partial pressure] 35 mmHg Normal 35-45 [facility] Comment on above: Order Comment: Speci men Type: VENOUS BLOOD SPECIMENOrdering Facility: [facility] Address: [address] [place] [address] Performed By: #### 2 4344-4 ####[facility] LABCLIA [id number] [address] [address] [place] Oxygen saturation in Venous blood 57 % Low 60-85 [facility] Comment on above: Order Comment: Speci men Type: VENOUS BLOOD SPECIMENOrdering Facility: [facility] Address: [address] [place], [place] [address] Performed By: #### 2 4344-4 ####[facility] LABCLIA [id number] [address] [address] [place] Oxyhemoglobin (BldV) [Mass fraction] 56 % Low 60-85 [facility] Comment on above: Order Comment: Speci men Type: VENOUS BLOOD SPECIMENOrdering Facility: [facility] Address: [address] [place], [place] [address] Performed By: #### 2 4344-4 ####[facility] LABCLIA [id number] [address] [address] [place] pH (BldV) 7.30 [pH] Low 7.32-7.42 [facility] Comment on above: Order Comment: Speci men Type: VENOUS BLOOD SPECIMENOrdering Facility: [facility] Address: [address] [place], [place] [address] Performed By: #### 2 4344-4 ####[facility] LABCLIA [id number] [address] [address] [place] pH adjusted to patient's actual temperature (BldV) 7.30 Low 7.32-7.42 [facility] Comment on above: Order Comment: Speci men Type: VENOUS BLOOD SPECIMENOrdering Facility: [facility] Address: [address] [place] [address] Performed By: #### 2 4344-4 ####[facility] LABCLIA [id number] [place] [id number] [place] Potassium [Moles/Vol] 4.9 mmol/L Normal 3.5-5.0 [facility] Comment on above: Order Comment: Speci men Type: VENOUS BLOOD SPECIMENOrdering Facility: [facility] Address: [address] [place] [address] Performed By: #### 2 4344-4 ####[facility] LABCLIA [id number] [place] [address] [place] Sodium [Moles/Vol] 134 mmol/L Low 136-144 [facility] Comment on above: Order Comment: Speci men Type: VENOUS BLOOD SPECIMENOrdering Facility: [facility] Address: [address] [place] [address] Performed By: #### 2 4344-4 ####[facility] LABIA [id number] [place] [address] [place] BASE DEFICIT, VENOUS -5 mmol/L Low -2-0 [facility] Comment on above: Order Comment: Speci men Type: VENOUS BLOOD SPECIMENOrdering Facility: [facility] Address: [address] [place] [address] Performed By: #### 2 4344-4 ####[facility] LABIA [id number] [place] [address] [place] Body temperature 96.26 [degF] Normal [facility] Comment on above: Order Comment: Speci men Type: VENOUS BLOOD SPECIMENOrdering Facility: [facility] Address: [address] [place], [place] [address] Performed By: #### 2 4344-4 ####[facility] LABIA [id number] [place] [id number] [place] Calcium.ionized (Bld) [Mass/Vol] 1.23 mmol/L Normal 1.08-1.30 [facility] Comment on above: Order Comment: Speci men Type: VENOUS BLOOD SPECIMENOrdering Facility: [facility] Address: [address] [place] [address] Performed By: #### 2 4344-4 ####[facility] LABIA [id number] [place] [address] [place] Calcium.ionized adjusted to pH 7.4 (BldA) [Moles/Vol] 1.18 mmol/L Normal 1.08-1.30 [facility] Comment on above: Order Comment: Speci men Type: VENOUS BLOOD SPECIMENOrdering Facility: [facility] Address: [address] [place] [address] Performed By: #### 2 4344-4 ####[facility] LABIA [id number] [place] [address] [place] Carboxyhemoglobin (BldV) [Mass fraction] 1.5 % Normal 0.0-2.0 [facility] Comment on above: Order Comment: Speci men Type: VENOUS BLOOD SPECIMENOrdering Facility: [facility] Address: [address] [place] [address] Result Comment: Carb oxyhemoglobin Reference Range for Smokers: 2.0-8.0% Performed By: #### 2 4344-4 ####[facility] [id number] [place] [address] [place] CO2 (BldV) [Partial pressure] 41 mm[Hg] Low 42-55 [facility] Comment on above: Order Comment: Speci men Type: VENOUS BLOOD SPECIMENOrdering Facility: [facility] Address: [address] [place], [place] [address] Performed By: #### 2 4344-4 ####[facility] LABCLIA [id number] [place] [id number] [place] CO2 adjusted to patient's actual temperature (BldV) [Partial pressure] 39 mmHg Low 42-55 [facility] Comment on above: Order Comment: Speci men Type: VENOUS BLOOD SPECIMENOrdering Facility: [facility] Address: [address] [place] [address] Performed By: #### 2 4344-4 ####[facility] LABCLIA [id number] [place] [id number] [place] Glucose [Mass/Vol] 174 mg/dL High 60-105 [facility] Comment on above: Order Comment: Speci men Type: VENOUS BLOOD SPECIMENOrdering Facility: [facility] Address: [address] [place] [address] Performed By: #### 2 4344-4 ####[facility] LABCL[facility] [id number] [place] [address] [place] HCO3 (Bld) [Moles/Vol] 21 mmol/L Low 24-28 [facility] Comment on above: Order Comment: Speci men Type: VENOUS BLOOD SPECIMENOrdering Facility: [facility] Address: [address] [place] [address] Performed By: #### 2 4344-4 ####[facility] LABCL[facility] [id number] [place] [address] [place] Hematocrit (Bld) [Volume fraction] 45.3 % Normal 36.0-46.0 [facility] Comment on above: Order Comment: Speci men Type: VENOUS BLOOD SPECIMENOrdering Facility: [facility] Address: [address] [place] [address] Performed By: #### 2 4344-4 ####[facility] LABCLIA [id number] [address] [address] [place] Hemoglobin (Bld) [Mass/Vol] 14.8 g/dL Normal 11.5-15.5 [facility] Comment on above: Order Comment: Speci men Type: VENOUS BLOOD SPECIMENOrdering Facility: [facility] Address: [address] [place], [place] [address] Performed By: #### 2 4344-4 ####[facility] LABCL[facility] [id number] [address] [address] [place] Lactate [Moles/Vol] 2.2 mmol/L Normal 0.5-2.2 [facility] Comment on above: Order Comment: Speci men Type: VENOUS BLOOD SPECIMENOrdering Facility: [facility] Address: [address] [place] [address] Performed By: #### 2 4344-4 ####[facility] LABCLIA [id number] [place] [id number] [place] LITERS 6 Liters/min Normal [facility] Comment on above: Order Comment: Speci men Type: VENOUS BLOOD SPECIMENOrdering Facility: [facility] Address: [address] [place] [address] Performed By: #### 2 4344-4 ####[facility]CL[facility] [id number] [place] [address] [place] Methemoglobin (Bld) [Mass fraction] 0.5 % Normal 0.0-1.5 [facility] Comment on above: Order Comment: Speci men Type: VENOUS BLOOD SPECIMENOrdering Facility: [facility] Address: [address] [place] [address] Performed By: #### 2 4344-4 ####[facility] LABCLIA [id number] [place] [id number] [place] O2 THERAPY NC = Nasal Cannula Normal [facility] Comment on above: Order Comment: Speci men Type: VENOUS BLOOD SPECIMENOrdering Facility: [facility] Address: [address] [place], [place] [address] Performed By: #### 2 4344-4 ####[facility] LABCL[facility] [id number] [place] [id number] [place] Oxygen (BldV) [Partial pressure] 48 mm[Hg] High 35-45 [facility] Comment on above: Order Comment: Speci men Type: VENOUS BLOOD SPECIMENOrdering Facility: [facility] Address: [address] [place] [address] Performed By: #### 2 4344-4 ####[facility] LABCLIA [id number] [address] [address] [place] Oxygen adjusted to patient's actual temperature (BldV) [Partial pressure] 44 mmHg Normal 35-45 [facility] Comment on above: Order Comment: Speci men Type: VENOUS BLOOD SPECIMENOrdering Facility: [facility] Address: [address] [place], [place] [address] Performed By: #### 2 4344-4 ####[facility]CLIA [id number] [address] [address] [place] Oxygen saturation in Venous blood 78 % Normal 60-85 [facility] Comment on above: Order Comment: Speci men Type: VENOUS BLOOD SPECIMENOrdering Facility: [facility] Address: [address] [place], [place] [address] Performed By: #### 2 4344-4 ####[facility]CL[facility] [id number] [address] [place] [address] [place] Oxyhemoglobin (BldV) [Mass fraction] 76 % Normal 60-85 [facility] Comment on above: Order Comment: Speci men Type: VENOUS BLOOD SPECIMENOrdering Facility: [facility] Address: [address] [place] [address] Performed By: #### 2 4344-4 ####[facility] LABCLIA [id number] [address] [place] [address] [place] pH (BldV) 7.32 [pH] Normal 7.32-7.42 [facility] Comment on above: Order Comment: Speci men Type: VENOUS BLOOD SPECIMENOrdering Facility: [facility] Address: [address] [place] [address] Performed By: #### 2 4344-4 ####[facility]CL[facility] [id number] [address] [address] [place] pH adjusted to patient's actual temperature (BldV) 7.34 Normal 7.32-7.42 [facility] Comment on above: Order Comment: Speci men Type: VENOUS BLOOD SPECIMENOrdering Facility: [facility] Address: [address] [place] [address] Performed By: #### 2 4344-4 ####[facility]CL[facility] [id number] [place] [address] [place] Potassium [Moles/Vol] 5.1 mmol/L High 3.5-5.0 [facility] Comment on above: Order Comment: Speci men Type: VENOUS BLOOD SPECIMENOrdering Facility: [facility] Address: [address] [place] [address] Performed By: #### 2 4344-4 ####[facility]IA [id number] [place] [address] [place] Sodium [Moles/Vol] 133 mmol/L Low 136-144 [facility] Comment on above: Order Comment: Speci men Type: VENOUS BLOOD SPECIMENOrdering Facility: [facility] Address: [address] [place] [address] Performed By: #### 2 4344-4 ####[facility] [id number] [place] [id number] [place] HISTORY PHYSICALon HISTORY PHYSICAL Normal [facility] LUNG DIFFUSION CAPACITY (TOMY O)on 12-19-2024 LUNG DIFFUSION CAPACITY (DLCO) Normal [facility] Lidocain SerPl-mCncon 2024 Lidocaine [Mass/Vol] 1.0 ug/mL Low 1.5-5.0 [facility] Comment on above: Order Comment: Speci men Type: BLOOD SPECIMENOrdering Facility: [facility] Address: [address] [place] [address] Result Comment: Refe rence ranges and high/low indicator flags are provided as general guidelines only. The treating physician must determine appropriate target levels/dosing based on the specific clinical situation.This test was developed, and its performance characteristics determined by the [facility] Department of Pathology and Laboratory Medicine. It has not been cleared or approved by the FDA. The [facility] Department of Pathology and Laboratory Medicine is regulated under CLIA as qualified to perform high-complexity testing. This test is used for clinical purposes. It should not be regarded as investigational or for research. Performed By: #### 3 714-3 ####[facility] [id number] [place] [address] [place] Magnesium SerPl-mCncon 12-19 Magnesium [Mass/Vol] 2.3 mg/dL Normal 1.7-2.3 [facility] Comment on above: Order Comment: Speci men Type: BLOOD SPECIMENOrdering Facility: [facility] Address: [address] [place] [address] Performed By: #### 1 9123-9, 2777-1, 02979-2 ####[facility] [id number] [place] [address] [place] NURSING PROGon 12-19-2024 NURSING PROG Normal [facility] PTT, ANTICOAGULANT THERAPYon 12-19-2024 aPTT Coag (PPP) [Time] 63.0 s High 23.0-32.4 [facility] Comment on above: Order Comment: Speci men Type: BLOOD SPECIMENOrdering Facility: [facility] Address: [address] [place] [address] Performed By: #### P TTAC ####[facility] [id number] [place] [id number] [place] Phosphate SerPl-mCncon 12-19 Phosphate [Mass/Vol] 4.2 mg/dL Normal 2.7-4.8 [facility] Comment on above: Order Comment: Speci men Type: BLOOD SPECIMENOrdering Facility: [facility] Address: [address] [place] [address] Performed By: #### 1 9123-9, 2777-1, 16183-5 ####[facility] LABCLIA [id number] [place] [address] [place] SPIROMETRY - BASELINE AND PO ST DILATORon 12-19-2024 SPIROMETRY - BASELINE AND POST DILATOR Normal [facility] STAPHYLOCOCCUS AUREUS AND MR SA SCREEN, PCR, NASALon 12-19-2024 S. aureus and MRSA panel CELIA+probe (Nose) Not detected Normal Not Detected [facility] Comment on above: Order Comment: Speci men Type: SWABOrdering Facility: [facility] Address: [address] [place] [address] Performed By: #### S APCR ####[facility]CLIA [id number] [place] [address] [place] THERAPY NTon 12-19-2024 THERAPY NT Normal [facility] XR CHEST 1V FRONTAL PORTon 0 12-19-2024 XR CHEST 1V FRONTAL PORT Normal [facility] XR CHEST 1V FRONTAL PORT Normal [facility] ALLIED HEALTHon 12-18-2024 ALLIED HEALTH Normal [facility] CBC panel Auto (Bld)on 12-18 Erythrocyte distribution width (RBC) [Ratio] 13.0 % Normal 11.5-15.0 [facility] Comment on above: Order Comment: Speci men Type: BLOOD SPECIMENOrdering Facility: [facility] Address: [address] [place] [address] Performed By: #### 5 8410-2 ####[facility] LABCLIA [id number] [place] [id number] [place] Hematocrit (Bld) [Volume fraction] 44.0 % Normal 36.0-46.0 [facility] Comment on above: Order Comment: Speci men Type: BLOOD SPECIMENOrdering Facility: [facility] Address: [address] [place] [address] Performed By: #### 5 8410-2 ####[facility] LABCLIA [id number] [place] [address] [place] Hemoglobin (Bld) [Mass/Vol] 14.1 g/dL Normal 11.5-15.5 [facility] Comment on above: Order Comment: Speci men Type: BLOOD SPECIMENOrdering Facility: [facility] Address: [address] [place] [address] Performed By: #### 5 8410-2 ####[facility] [id number] [place] [address] [place] MCH (RBC) [Entitic mass] 30.6 pg Normal 26.0-34.0 [facility] Comment on above: Order Comment: Speci men Type: BLOOD SPECIMENOrdering Facility: [facility] Address: [address] [place] [address] Performed By: #### 5 8410-2 ####[facility] [id number] [address] [place] MCHC (RBC) [Mass/Vol] 32.0 g/dL Normal 30.5-36.0 [facility] Comment on above: Order Comment: Speci men Type: BLOOD SPECIMENOrdering Facility: [facility] Address: [address] [place] [address] Performed By: #### 5 8410-2 ####[facility] [id number] [place] [address] [place] MCV (RBC) [Entitic vol] 95.4 fL Normal 80.0-100.0 C [facility] Comment on above: Order Comment: Speci men Type: BLOOD SPECIMENOrdering Facility: [facility] Address: [address] [place] [address] Performed By: #### 5 8410-2 ####[facility] LABCL[facility] [id number] [place] [address] [place] Nucleated RBC (Bld) [#/Vol] 10*3/uL Normal <0.01 [facility] Comment on above: Order Comment: Speci men Type: BLOOD SPECIMENOrdering Facility: [facility] Address: [address] [place] [address] Performed By: #### 5 8410-2 ####[facility] [id number] [place] [address] [place] Platelet mean volume (Bld) [Entitic vol] 11.0 fL Normal 9.0-12.7 [facility] Comment on above: Order Comment: Speci men Type: BLOOD SPECIMENOrdering Facility: [facility] Address: [address] [place] [address] Performed By: #### 5 8410-2 ####[facility] [id number] [place] [address] [place] Platelets (Bld) [#/Vol] 458 10*3/uL High 150-400 [facility] Comment on above: Order Comment: Speci men Type: BLOOD SPECIMENOrdering Facility: [facility] Address: [address] [place] [address] Performed By: #### 5 8410-2 ####[facility] [id number] [place] [address] [place] RBC (Bld) [#/Vol] 4.61 10*6/uL Normal 3.90-5.20 [facility] Comment on above: Order Comment: Speci men Type: BLOOD SPECIMENOrdering Facility: [facility] Address: [address] [place] [address] Performed By: #### 5 8410-2 ####[facility] [id number] [place] [address] [place] WBC (Bld) [#/Vol] 8.76 10*3/uL Normal 3.70-11.00 [facility] Comment on above: Order Comment: Speci men Type: BLOOD SPECIMENOrdering Facility: [facility] Address: [address] [place] [address] Performed By: #### 5 8410-2 ####[facility]CL[facility] [id number] [address] [address] [place] CNOVon 12-18-2024 CNOV Normal [facility] CONSULTon 12-18-2024 CONSULT Normal [facility] CONSULT PROGon 12-18-2024 CONSULT PROG Normal [facility] CONSULT PROG Normal [facility] Comprehensive metabolic 2000 panelon 12-18-2024 Albumin [Mass/Vol] 3.5 g/dL Low 3.9-4.9 [facility] Comment on above: Order Comment: Speci men Type: BLOOD SPECIMENOrdering Facility: [facility] Address: [address] [place] [address] Performed By: #### 2 4323-8, ####[facility]CL[facility] [id number] [place] [id number] [place] ALP [Catalytic activity/Vol] 94 U/L Normal 34-123 [facility] Comment on above: Order Comment: Speci men Type: BLOOD SPECIMENOrdering Facility: [facility] Address: [address] [place] [address] Performed By: #### 2 4323-8, ####[facility]CL[facility] [id number] [place] [id number] [place] ALT [Catalytic activity/Vol] 48 U/L High 7-38 [facility] Comment on above: Order Comment: Speci men Type: BLOOD SPECIMENOrdering Facility: [facility] Address: [address] [place] [address] Performed By: #### 2 4323-8, ####[facility]CL[facility] [id number] [address] [address] [place] Anion gap [Moles/Vol] 14 mmol/L Normal 8-15 [facility] Comment on above: Order Comment: Speci men Type: BLOOD SPECIMENOrdering Facility: [facility] Address: [address] [place], [place] [address] Performed By: #### 2 432-8, ####[facility]CL[facility] [id number] [address] [address] [place] AST [Catalytic activity/Vol] 43 U/L High 13-35 [facility] Comment on above: Order Comment: Speci men Type: BLOOD SPECIMENOrdering Facility: [facility] Address: [address] [place], [place] [address] Performed By: #### 2 432-8, ####[facility]CL[facility] [id number] [place] [id number] [place] Bilirubin [Mass/Vol] mg/dL Low 0.2-1.3 [facility] Comment on above: Order Comment: Speci men Type: BLOOD SPECIMENOrdering Facility: [facility] Address: [address] [place], [place] [address] Performed By: #### 2 432-8, ####[facility] [id number] [place] [id number] [place] Calcium [Mass/Vol] 9.7 mg/dL Normal 8.5-10.2 [facility] Comment on above: Order Comment: Speci men Type: BLOOD SPECIMENOrdering Facility: [facility] Address: [address] [place], [place] [address] Performed By: #### 2 4323-8, ####[facility] [id number] [place] [id number] [place] Chloride [Moles/Vol] 103 mmol/L Normal 98-107 [facility] Comment on above: Order Comment: Speci men Type: BLOOD SPECIMENOrdering Facility: [facility] Address: [address] [place], [place] [address] Performed By: #### 2 4323-8, ####[facility] [id number] [place] [id number] [place] CO2 [Moles/Vol] 21 mmol/L Low 22-30 [facility] Comment on above: Order Comment: Speci men Type: BLOOD SPECIMENOrdering Facility: [facility] Address: [address] [place] [address] Performed By: #### 2 4328, ####[facility] [id number] [place] [id number] [place] Creatinine [Mass/Vol] 1.28 mg/dL High 0.58-0.96 [facility] Comment on above: Order Comment: Speci men Type: BLOOD SPECIMENOrdering Facility: [facility] Address: [address] [place] [address] Performed By: #### 2 4328, ####[facility] [id number] [place] [address] [place] Creatinine and Glomerular filtration rate.predicted panel (S/P/Bld) 46 mL/min/1.73m??? Low >=60 [facility] Comment on above: Order Comment: Speci men Type: BLOOD SPECIMENOrdering Facility: [facility] Address: [address] [place] [address] Result Comment: Maru mated Glomerular Filtration Rate [...] reflect actual GFR. Performed By: #### 2 4323-8, ####[facility] [id number] [address] [address] [place] Glucose [Mass/Vol] 128 mg/dL High 74-99 [facility] Comment on above: Order Comment: Speci men Type: BLOOD SPECIMENOrdering Facility: [facility] Address: [address] [place] [address] Result Comment: The [place] [employer] (ADA) provides guidance for cutoff values for fasting glucose and random glucose. The ADA defines fasting as no caloric intake for at least 8 hours. Fasting plasma glucose results between 100 to 125 mg/dL indicate increased risk for diabetes (prediabetes).Fasting plasma glucose results greater than or equal to 126 mg/dL meet the criteria for diagnosis of diabetes. In the absence of unequivocal hyperglycemia, results should be confirmed by repeat testing. In a patient with classic symptoms of hyperglycemia or hyperglycemic crisis, random plasma glucose results greater than or equal to 200 mg/dL meet the criteria for diagnosis of diabetes.Reference: Standards of Medical Care in Diabetes 2016, [place] [employer]. Diabetes Care. 2016.39(Suppl 1). Performed By: #### 2 4323-8, ####[facility]CL[facility] [id number] [place] [address] [place] Potassium [Moles/Vol] 4.2 mmol/L Normal 3.7-5.1 [facility] Comment on above: Order Comment: Marika hammonds Type: BLOOD SPECIMENOrdering Facility: [facility] Address: [address] [place] [address] Performed By: #### 2 4323-8, ####[facility] [id number] [place] [id number] [place] Protein [Mass/Vol] 6.6 g/dL Normal 6.3-8.0 [facility] Comment on above: Order Comment: Cobyi men Type: BLOOD SPECIMENOrdering Facility: [facility] Address: [address] [place] [id number] Performed By: #### 2 4323-8, ####[facility] [id number] [place] [id number] [place] Sodium [Moles/Vol] 138 mmol/L Normal 136-144 [facility] Comment on above: Order Comment: Speci men Type: BLOOD SPECIMENOrdering Facility: [facility] Address: [address] [place] [address] Performed By: #### 2 4323-8, ####[facility] [id number] [place] [id number] [place] Urea nitrogen [Mass/Vol] 29 mg/dL High 7-21 [facility] Comment on above: Order Comment: Speci men Type: BLOOD SPECIMENOrdering Facility: [facility] Address: [address] [place] [address] Performed By: #### 2 4323-8, ####[facility] [id number] [place] [id number] [place] Magnesium SerPl-mCncon 12-18 Magnesium [Mass/Vol] 2.3 mg/dL Normal 1.7-2.3 [facility] Comment on above: Order Comment: Speci men Type: BLOOD SPECIMENOrdering Facility: [facility] Address: [address] [place] [address] Performed By: #### 2 432-8, ####[facility] [id number] [place] [id number] [place] PTT, ANTICOAGULANT THERAPYon 12-18-2024 aPTT Coag (PPP) [Time] 64.9 s High 23.0-32.4 [facility] Comment on above: Order Comment: Speci men Type: BLOOD SPECIMENOrdering Facility: [facility] Address: [address] [place] [address] Performed By: #### P TTAC ####[facility] [id number] [address] [address] [place] US LEG VEIN MAP [facility] LABo n 12-18-2024 US LEG VEIN MAP [facility] LAB Normal [facility] US MAMMARY ARTERY [facility] [place] Bon 12-18-2024 US MAMMARY ARTERY [facility] LAB Normal [facility] US RADIAL ARTERY MAP [facility] LABon 12-18-2024 US RADIAL ARTERY MAP [facility] LAB Normal [facility] CASE MANAGEMon 12-17-2024 CASE MANAGEM Normal [facility] CASE MGT INIT ASSESon 2024 CASE MGT INIT ASSES Normal [facility] CBC panel Auto (Bld)on 12-17 Erythrocyte distribution width (RBC) [Ratio] 13.0 % Normal 11.5-15.0 [facility] Comment on above: Order Comment: Speci men Type: BLOOD SPECIMENOrdering Facility: [facility] Address: [address] [place] [address] Performed By: #### 5 8410-2 ####[facility] [id number] [place] [address] [place] Hematocrit (Bld) [Volume fraction] 44.8 % Normal 36.0-46.0 [facility] Comment on above: Order Comment: Speci men Type: BLOOD SPECIMENOrdering Facility: [facility] Address: [address] [place] [address] Performed By: #### 5 8410-2 ####[facility] [id number] [place] [address] [place] Hemoglobin (Bld) [Mass/Vol] 14.4 g/dL Normal 11.5-15.5 [facility] Comment on above: Order Comment: Speci men Type: BLOOD SPECIMENOrdering Facility: [facility] Address: [address] [place] [address] Performed By: #### 5 8410-2 ####[facility] [id number] [place] [address] [place] MCH (RBC) [Entitic mass] 29.6 pg Normal 26.0-34.0 [facility] Comment on above: Order Comment: Speci men Type: BLOOD SPECIMENOrdering Facility: [facility] Address: [address] [place] [address] Performed By: #### 5 8410-2 ####[facility] [id number] [place] [address] [place] MCHC (RBC) [Mass/Vol] 32.1 g/dL Normal 30.5-36.0 [facility] Comment on above: Order Comment: Speci men Type: BLOOD SPECIMENOrdering Facility: [facility] Address: [address] [place] [address] Performed By: #### 5 8410-2 ####[facility] [id number] [place] [address] [place] MCV (RBC) [Entitic vol] 92.2 fL Normal 80.0-100.0 [facility] Comment on above: Order Comment: Speci men Type: BLOOD SPECIMENOrdering Facility: [facility] Address: [address] [place] [address] Performed By: #### 5 8410-2 ####[facility] LABIA [id number] [place] [address] [place] Nucleated RBC (Bld) [#/Vol] 10*3/uL Normal <0.01 [facility] Comment on above: Order Comment: Speci men Type: BLOOD SPECIMENOrdering Facility: [facility] Address: [address] [place] [address] Performed By: #### 5 8410-2 ####[facility] LABCLIA [id number] [place] [address] [place] Platelet mean volume (Bld) [Entitic vol] 10.2 fL Normal 9.0-12.7 [facility] Comment on above: Order Comment: Speci men Type: BLOOD SPECIMENOrdering Facility: [facility] Address: [address] [place] [address] Performed By: #### 5 8410-2 ####[facility] LABCLIA [id number] [place] [id number] [place] Platelets (Bld) [#/Vol] 443 10*3/uL High 150-400 [facility] Comment on above: Order Comment: Speci men Type: BLOOD SPECIMENOrdering Facility: [facility] Address: [address] [place] [address] Performed By: #### 5 8410-2 ####[facility] [id number] [place] [address] [place] RBC (Bld) [#/Vol] 4.86 10*6/uL Normal 3.90-5.20 [facility] Comment on above: Order Comment: Speci men Type: BLOOD SPECIMENOrdering Facility: [facility] Address: [address] [place] [address] Performed By: #### 5 8410-2 ####[facility] [id number] [place] [address] [place] WBC (Bld) [#/Vol] 9.65 10*3/uL Normal 3.70-11.00 [facility] Comment on above: Order Comment: Speci men Type: BLOOD SPECIMENOrdering Facility: [facility] Address: [address] [place] [address] Performed By: #### 5 8410-2 ####[facility] [id number] [place] [id number] [place] CONSULTon 12-17-2024 CONSULT Normal [facility] CONSULT Normal [facility] CONSULT Normal [facility] Comprehensive metabolic 2000 panelon 12-17-2024 Albumin [Mass/Vol] 3.3 g/dL Low 3.9-4.9 [facility] Comment on above: Order Comment: Speci men Type: BLOOD SPECIMENOrdering Facility: [facility] Address: [address] [place] [address] Performed By: #### H STNT, 3051-0, 90961-7, 79658-2, 23068-4, 3024-7 ####[facility] LABCLIA [id number] [address] [address] [place] ALP [Catalytic activity/Vol] 85 U/L Normal 34-123 [facility] Comment on above: Order Comment: Speci men Type: BLOOD SPECIMENOrdering Facility: [facility] Address: [address] [place] [address] Performed By: #### H STNT, 3051-0, 89095-4, 74050-4, 54027-5, 3024-7 ####[facility] [id number] [place] [id number] [place] ALT [Catalytic activity/Vol] 45 U/L High 7-38 [facility] Comment on above: Order Comment: Speci men Type: BLOOD SPECIMENOrdering Facility: [facility] Address: [address] [place] [address] Performed By: #### H STNT, 3051-0, 85088-7, 83480-8, 03701-8, 3024-7 ####[facility] [id number] [place] [id number] [place] Anion gap [Moles/Vol] 14 mmol/L Normal 8-15 [facility] Comment on above: Order Comment: Speci men Type: BLOOD SPECIMENOrdering Facility: [facility] Address: [address] [place] [address] Performed By: #### H STNT, 3051-0, 66236-6, 24560-3, 36479-0, 3024-7 ####[facility] [id number] [place] [id number] [place] AST [Catalytic activity/Vol] 51 U/L High 13-35 [facility] Comment on above: Order Comment: Speci men Type: BLOOD SPECIMENOrdering Facility: [facility] Address: [address], [place] [address] Performed By: #### H STNT, 3051-0, 17181-8, 79980-8, 20493-7, 3023-7 ####[facility] LABCLIA [id number] [address] [address] [place] Bilirubin [Mass/Vol] mg/dL Low 0.2-1.3 [facility] Comment on above: Order Comment: Speci men Type: BLOOD SPECIMENOrdering Facility: [facility] Address: [address] [place] [address] Performed By: #### H STNT, 3051-0, 04881-8, 87594-8, 73097-3, 3023-7 ####[facility] LABCLIA [id number] [address] [address] [place] Calcium [Mass/Vol] 9.5 mg/dL Normal 8.5-10.2 [facility] Comment on above: Order Comment: Speci men Type: BLOOD SPECIMENOrdering Facility: [facility] Address: [address] [place], [place] [address] Performed By: #### H STNT, 3051-0, 29781-1, 90704-7, 15245-7, 3023-7 ####[facility] LABCLIA [id number] [address] [address] [place] Chloride [Moles/Vol] 105 mmol/L Normal 98-107 [facility] Comment on above: Order Comment: Speci men Type: BLOOD SPECIMENOrdering Facility: [facility] Address: [address] [place], [place] [address] Performed By: #### H STNT, 3051-0, 42681-2, 14620-4, 58357-3, 3023-7 ####[facility] LABCLIA [id number] [address] [address] [place] CO2 [Moles/Vol] 17 mmol/L Low 22-30 [facility] Comment on above: Order Comment: Speci men Type: BLOOD SPECIMENOrdering Facility: [facility] Address: [address] [place] [address] Performed By: #### H STNT, 3051-0, 22558-9, 01505-3, 10296-1, 3024-7 ####[facility] LABCLIA [id number] [facility] [address] [address] [place] Creatinine [Mass/Vol] 1.29 mg/dL High 0.58-0.96 [facility] Comment on above: Order Comment: Cobyi men Type: BLOOD SPECIMENOrdering Facility: [facility] Address: [address] [place] [address] Performed By: #### H STNT, 3051-0, 15926-1, 26082-5, 52735-5, 4-7 ####[facility] LABCLIA [id number] [facility] [address] [address] [place] Creatinine and Glomerular filtration rate.predicted panel (S/P/Bld) 45 mL/min/1.73m??? Low >=60 [facility] Comment on above: Order Comment: Marika hammonds Type: BLOOD SPECIMENOrdering Facility: [facility] Address: [address] [place] [address] Result Comment: Maru mated Glomerular Filtration Rate [...] accurately reflect actual GFR. Performed By: #### H STNT, 3051-0, 09912-5, 80779-2, 39871-6, 3024-7 ####[facility] LABCL[facility] [id number] [facility] [id number] [place] [address] [place] Glucose [Mass/Vol] 113 mg/dL High 74-99 [facility] Comment on above: Order Comment: Speci men Type: BLOOD SPECIMENOrdering Facility: [facility] Address: [address] [place] [address] Result Comment: The [place] Diabetes [employer] (ADA) provides guidance for cutoff values for fasting glucose and random glucose. The ADA defines fasting as no caloric intake for at least 8 hours. Fasting plasma glucose results between 100 to 125 mg/dL indicate increased risk for diabetes (prediabetes).Fasting plasma glucose results greater than or equal to 126 mg/dL meet the criteria for diagnosis of diabetes. In the absence of unequivocal hyperglycemia, results should be confirmed by repeat testing. In a patient with classic symptoms of hyperglycemia or hyperglycemic crisis, random plasma glucose results greater than or equal to 200 mg/dL meet the criteria for diagnosis of diabetes.Reference: Standards of Medical Care in Diabetes 2016, [place] [employer]. Diabetes Care. 2016.39(Suppl 1). Performed By: #### H STNT, 3051-0, 07221-7, 36342-3, 45829-3, 3024-7 ####[facility] LABCLIA [id number] [place] [id number] [place] Potassium [Moles/Vol] 4.4 mmol/L Normal 3.7-5.1 [facility] Comment on above: Order Comment: Cobyi men Type: BLOOD SPECIMENOrdering Facility: [facility] Address: [address] [place] [address] Performed By: #### H STNT, 3051-0, 49652-8, 73866-9, 91185-8, 3024-7 ####[facility] [id number] [place] [id number] [place] Protein [Mass/Vol] 6.7 g/dL Normal 6.3-8.0 [facility] Comment on above: Order Comment: Cobyi men Type: BLOOD SPECIMENOrdering Facility: [facility] Address: [address] [place] [id number] Performed By: #### H STNT, 3051-0, 27421-1, 71801-0, 97819-7, 3024-7 ####[facility] LABCLIA [id number] [address] [address] [place] Sodium [Moles/Vol] 136 mmol/L Normal 136-144 [facility] Comment on above: Order Comment: Speci men Type: BLOOD SPECIMENOrdering Facility: [facility] Address: [address] [place] [address] Performed By: #### H STNT, 3051-0, 05176-8, 84889-2, 80915-5, 3024-7 ####[facility] LABCLIA [id number] [address] [address] [place] Urea nitrogen [Mass/Vol] 34 mg/dL High 7-21 [facility] Comment on above: Order Comment: Speci men Type: BLOOD SPECIMENOrdering Facility: [facility] Address: [address] [place] [address] Performed By: #### H STNT, 3051-0, 71048-9, 34745-1, 50104-1, 3024-7 ####[facility] [id number] [place] [id number] [place] HIGH SENSITIVITY TROPONIN To n 12-17-2024 Troponin T.cardiac High sensitivity method [Mass/Vol] 525 ng/L High <12 [facility] Comment on above: Order Comment: Speci men Type: BLOOD SPECIMENOrdering Facility: [facility] Address: [address] [place] [address] Performed By: #### H STNT, 3051-0, 90588-3, 36106-5, 36110-6, 3024-7 ####[facility] [id number] [address] [address] [place] Iron and Iron binding capaci ty panelon 12-17-2024 Iron [Mass/Vol] 221 ug/dL High 41-186 [facility] Comment on above: Order Comment: Speci men Type: BLOOD SPECIMENOrdering Facility: [facility] Address: [address] [place] [address] Performed By: #### H STNT, 3051-0, 62718-9, 44169-9, 81967-0, 3024-7 ####[facility] LABCLIA [id number] [address] [address] [place] Iron binding capacity [Mass/Vol] <238 Normal 232-386 [facility] Comment on above: Order Comment: Speci men Type: BLOOD SPECIMENOrdering Facility: [facility] Address: [address] [place] [address] Performed By: #### H STNT, 3051-0, 43812-3, 16738-7, 29135-5, 3024-7 ####[facility] LABCLIA [id number] [place] [id number] [place] Iron/TIBC [Molar ratio] >92.9 High 15.0-57.0 C [facility] Comment on above: Order Comment: Speci men Type: BLOOD SPECIMENOrdering Facility: [facility] Address: [address] [place] [address] Performed By: #### H STNT, 3051-0, 68169-0, 52780-7, 84959-5, 3023-7 ####[facility] LABCLIA [id number] [address] [address] [place] Magnesium SerPl-mCncon 12-17 Magnesium [Mass/Vol] 2.3 mg/dL Normal 1.7-2.3 [facility] Comment on above: Order Comment: Speci men Type: BLOOD SPECIMENOrdering Facility: [facility] Address: [address] [place] [address] Performed By: #### H STNT, 3051-0, 14350-6, 06020-5, 98321-6, 3024-7 ####[facility] LABCLIA [id number] [address] [address] [place] PTT, ANTICOAGULANT THERAPYon 12-17-2024 aPTT Coag (PPP) [Time] 51.9 s High 23.0-32.4 Cl [facility] Comment on above: Order Comment: Speci men Type: BLOOD SPECIMENOrdering Facility: [facility] Address: [address] [place] [address] Performed By: #### P TTAC ####[facility] [id number] [place] [address] [place] STAPHYLOCOCCUS AUREUS AND MR SA SCREEN, PCR, NASALon 12-17-2024 S. aureus and MRSA panel CELIA+probe (Nose) Not detected Normal Not Detected [facility] Comment on above: Order Comment: Speci men Type: SWABOrdering Facility: [facility] Address: [address] [place] [address] Performed By: #### S APCR ####[facility] [id number] [place] [address] [place] T3Free SerPl-mCncon 12-18-19 25 Free T3 [Mass/Vol] 2.4 pg/mL Normal 2.3-4.1 [facility] Comment on above: Order Comment: Speci men Type: BLOOD SPECIMENOrdering Facility: [facility] Address: [address] [place] [address] Performed By: #### H STNT, 3051-0, 53597-7, 08022-1, 70231-9, 3024-7 ####[facility] [id number] [place] [address] [place] T4 Free SerPl-mCncon 025 Free T4 [Mass/Vol] 1.7 ng/dL Normal 0.9-1.7 [facility] Comment on above: Order Comment: Speci men Type: BLOOD SPECIMENOrdering Facility: [facility] Address: [address] [place] [address] Performed By: #### H STNT, 3051-0, 23630-8, 46368-8, 06655-4, 3024-7 ####[facility] [id number] [place] [id number] [place] CBC panel Auto (Bld)on 12-16 Erythrocyte distribution width (RBC) [Ratio] 12.9 % Normal 11.5-15.0 [facility] Comment on above: Order Comment: Speci men Type: BLOOD SPECIMENOrdering Facility: [facility] Address: [address] [place] [address] Performed By: #### 5 8410-2, 50046-6, 52777-7 ####[facility] [id number] [place] [address] [place] Hematocrit (Bld) [Volume fraction] 46.7 % High 36.0-46.0 [facility] Comment on above: Order Comment: Speci men Type: BLOOD SPECIMENOrdering Facility: [facility] Address: [address] [place] [address] Performed By: #### 5 8410-2, 36079-2, 50787-1 ####[facility] [id number] [place] [id number] [place] Hemoglobin (Bld) [Mass/Vol] 15.2 g/dL Normal 11.5-15.5 [facility] Comment on above: Order Comment: Speci men Type: BLOOD SPECIMENOrdering Facility: [facility] Address: [address] [place] [address] Performed By: #### 5 8410-2, 86169-0, 25148-7 ####[facility] [id number] [place] [id number] [place] MCH (RBC) [Entitic mass] 29.8 pg Normal 26.0-34.0 [facility] Comment on above: Order Comment: Speci men Type: BLOOD SPECIMENOrdering Facility: [facility] Address: [address] [place] [address] Performed By: #### 5 8410-2, 34171-9, 36034-8 ####[facility] [id number] [place] [id number] [place] MCHC (RBC) [Mass/Vol] 32.5 g/dL Normal 30.5-36.0 [facility] Comment on above: Order Comment: Speci men Type: BLOOD SPECIMENOrdering Facility: [facility] Address: [address] [place] [address] Performed By: #### 5 8410-2, 71629-8, 18075-5 ####[facility] [id number] [place] [id number] [place] MCV (RBC) [Entitic vol] 91.6 fL Normal 80.0-100.0 [facility] Comment on above: Order Comment: Speci men Type: BLOOD SPECIMENOrdering Facility: [facility] Address: [address] [place] [address] Performed By: #### 5 8410-2, 71359-4, 77401-1 ####[facility] [id number] [place] [id number] [place] Nucleated RBC (Bld) [#/Vol] 10*3/uL Normal <0.01 [facility] Comment on above: Order Comment: Speci men Type: BLOOD SPECIMENOrdering Facility: [facility] Address: [address] [place] [address] Performed By: #### 5 8410-2, 80616-8, 86771-8 ####[facility] [id number] [place] [id number] [place] Platelet mean volume (Bld) [Entitic vol] 11.1 fL Normal 9.0-12.7 [facility] Comment on above: Order Comment: Speci men Type: BLOOD SPECIMENOrdering Facility: [facility] Address: [address] [place] [address] Performed By: #### 5 8410-2, 53565-8, 94367-2 ####[facility]CL[facility] [id number] [place] [id number] [place] Platelets (Bld) [#/Vol] 466 10*3/uL High 150-400 [facility] Comment on above: Order Comment: Speci men Type: BLOOD SPECIMENOrdering Facility: [facility] Address: [address] [place] [address] Performed By: #### 5 8410-2, 39451-4, 61256-8 ####[facility] LABCLIA [id number] [place] [address] [place] RBC (Bld) [#/Vol] 5.10 10*6/uL Normal 3.90-5.20 [facility] Comment on above: Order Comment: Speci men Type: BLOOD SPECIMENOrdering Facility: [facility] Address: [address] [place] [address] Performed By: #### 5 8410-2, 28024-7, 95114-6 ####[facility] [id number] [place] [address] [place] WBC (Bld) [#/Vol] 9.00 10*3/uL Normal 3.70-11.00 [facility] Comment on above: Order Comment: Speci men Type: BLOOD SPECIMENOrdering Facility: [facility] Address: [address] [place] [address] Result Comment: No c lot detected.Results checked and verified. Performed By: #### 5 8410-2, 68989-5, 73859-7 ####[facility] LABCL[facility] [id number] [place] [id number] [place] Comprehensive metabolic 2000 panelon 12-16-2024 Albumin [Mass/Vol] 3.1 g/dL Low 3.9-4.9 [facility] Comment on above: Order Comment: Speci men Type: BLOOD SPECIMENOrdering Facility: [facility] Address: [address] [place] [address] Performed By: #### 2 4322-8, ####[facility]CL[facility] [id number] [address] [address] [place] ALP [Catalytic activity/Vol] 77 U/L Normal 34-123 [facility] Comment on above: Order Comment: Speci men Type: BLOOD SPECIMENOrdering Facility: [facility] Address: [address] [place], [place] [address] Performed By: #### 2 8, ####[facility]CL[facility] [id number] [place] [id number] [place] ALT [Catalytic activity/Vol] 29 U/L Normal 7-38 [facility] Comment on above: Order Comment: Speci men Type: BLOOD SPECIMENOrdering Facility: [facility] Address: [address] [place], [place] [address] Performed By: #### 2 8, ####[facility]CL[facility] [id number] [place] [id number] [place] Anion gap [Moles/Vol] 14 mmol/L Normal 8-15 [facility] Comment on above: Order Comment: Speci men Type: BLOOD SPECIMENOrdering Facility: [facility] Address: [address] [place], [place] [address] Performed By: #### 2 8, ####[facility]CL[facility] [id number] [address] [address] [place] AST [Catalytic activity/Vol] 33 U/L Normal 13-35 [facility] Comment on above: Order Comment: Speci men Type: BLOOD SPECIMENOrdering Facility: [facility] Address: [address] [place] [address] Performed By: #### 2 8, ####[facility]CL[facility] [id number] [address] [place] [address] [place] Bilirubin [Mass/Vol] mg/dL Low 0.2-1.3 [facility] Comment on above: Order Comment: Speci men Type: BLOOD SPECIMENOrdering Facility: [facility] Address: [address] [place], [place] [address] Performed By: #### 2 4323-8, ####[facility] [id number] [address] [address] [place] Calcium [Mass/Vol] 9.8 mg/dL Normal 8.5-10.2 [facility] Comment on above: Order Comment: Speci men Type: BLOOD SPECIMENOrdering Facility: [facility] Address: [address] [place], [place] [address] Performed By: #### 2 432-8, ####[facility] [id number] [place] [id number] [place] Chloride [Moles/Vol] 105 mmol/L Normal 98-107 [facility] Comment on above: Order Comment: Speci men Type: BLOOD SPECIMENOrdering Facility: [facility] Address: [address] [place], [place] [address] Performed By: #### 2 4323-8, ####[facility] [id number] [place] [id number] [place] CO2 [Moles/Vol] 18 mmol/L Low 22-30 [facility] Comment on above: Order Comment: Speci men Type: BLOOD SPECIMENOrdering Facility: [facility] Address: [address] [place], [place] [address] Performed By: #### 2 4323-8, ####[facility] [id number] [address] [address] [place] Creatinine [Mass/Vol] 1.19 mg/dL High 0.58-0.96 [facility] Comment on above: Order Comment: Marika hammonds Type: BLOOD SPECIMENOrdering Facility: [facility] Address: [address] [place] [address] Performed By: #### 2 4323-8, ####[facility] [id number] [place] [address] [place] Creatinine and Glomerular filtration rate.predicted panel (S/P/Bld) 50 mL/min/1.73m??? Low >=60 [facility] Comment on above: Order Comment: Marika hammonds Type: BLOOD SPECIMENOrdering Facility: [facility] Address: [address] [place] [address] Result Comment: Maru mated Glomerular Filtration Rate [...] reflect actual GFR. Performed By: #### 2 4323-8, ####[facility] [id number] [place] [address] [place] Glucose [Mass/Vol] 105 mg/dL High 74-99 [facility] Comment on above: Order Comment: Marika hammonds Type: BLOOD SPECIMENOrdering Facility: [facility] Address: [address] [place] [address] Result Comment: The [place] [employer] (ADA) provides guidance for cutoff values for fasting glucose and random glucose. The ADA defines fasting as no caloric intake for at least 8 hours. Fasting plasma glucose results between 100 to 125 mg/dL indicate increased risk for diabetes (prediabetes).Fasting plasma glucose results greater than or equal to 126 mg/dL meet the criteria for diagnosis of diabetes. In the absence of unequivocal hyperglycemia, results should be confirmed by repeat testing. In a patient with classic symptoms of hyperglycemia or hyperglycemic crisis, random plasma glucose results greater than or equal to 200 mg/dL meet the criteria for diagnosis of diabetes.Reference: Standards of Medical Care in Diabetes 2016, [place] [employer]. Diabetes Care. 2016.39(Suppl 1). Performed By: #### 2 4323-8, ####[facility] [id number] [address] [place] [address] [place] Potassium [Moles/Vol] 5.0 mmol/L Normal 3.7-5.1 [facility] Comment on above: Order Comment: Speci men Type: BLOOD SPECIMENOrdering Facility: [facility] Address: [address] [place] [id number] Performed By: #### 2 4322-8, ####[facility] [id number] [address] [address] [place] Protein [Mass/Vol] 6.9 g/dL Normal 6.3-8.0 [facility] Comment on above: Order Comment: Speci men Type: BLOOD SPECIMENOrdering Facility: [facility] Address: [address] [id number] Performed By: #### 2 432-8, ####[facility] [id number] [address] [address] [place] Sodium [Moles/Vol] 137 mmol/L Normal 136-144 [facility] Comment on above: Order Comment: Speci men Type: BLOOD SPECIMENOrdering Facility: [facility] Address: [address] [place] [address] Performed By: #### 2 432-8, ####[facility] LABCLIA [id number] [address] [address] [place] Urea nitrogen [Mass/Vol] 29 mg/dL High 7-21 [facility] Comment on above: Order Comment: Speci men Type: BLOOD SPECIMENOrdering Facility: [facility] Address: [address] [place] [address] Performed By: #### 2 4323-8, 99776-8 ####[facility] LABIA [id number] [place] [address] [place] HCV Ab Ser Qlon 12-16-2024 HCV Ab Ql (S) Positive Abnormal Negative [facility] Comment on above: Order Comment: Speci men Type: BLOOD SPECIMENOrdering Facility: [facility] Address: [address] [place] [address] Performed By: #### 5 8410-2, 65632-2, 08873-5 ####[facility] LABIA [id number] [place] [address] [place] HCV RNA CELIA+probe Qnon 12-16 HCV RNA CELIA+probe Ql Not detected Normal Not detected [facility] Comment on above: Order Comment: Speci men Type: BLOOD SPECIMENOrdering Facility: [facility] Address: [address] [place] [address] Performed By: #### 5 8410-2, 86427-5, 98918-2 ####[facility] LABIA [id number] [place] [address] [place] Magnesium SerPl-mCncon 12-16 Magnesium [Mass/Vol] 2.4 mg/dL High 1.7-2.3 [facility] Comment on above: Order Comment: Speci men Type: BLOOD SPECIMENOrdering Facility: [facility] Address: [address] [place] [address] Performed By: #### 2 4323-8, 44481-1 ####[facility] LABIA [id number] [place] [address] [place] PTT, ANTICOAGULANT THERAPYon 12-16-2024 aPTT Coag (PPP) [Time] 55.1 s High 23.0-32.4 [facility] Comment on above: Order Comment: Speci men Type: BLOOD SPECIMENOrdering Facility: [facility] Address: [address] [place] [address] Performed By: #### P TTAC ####[facility] LABCLIA [id number] [address] [place] aPTT Coag (PPP) [Time] 58.7 s High 23.0-32.4 [facility] Comment on above: Order Comment: Speci men Type: BLOOD SPECIMENOrdering Facility: [facility] Address: [address] [place] [address] Performed By: #### P TTAC ####[facility] LABCLIA [id number] [place] [address] [place] aPTT Coag (PPP) [Time] 74.5 s High 23.0-32.4 [facility] Comment on above: Order Comment: Speci men Type: BLOOD SPECIMENOrdering Facility: [facility] Address: [address] [place] [address] Performed By: #### P TTAC ####[facility] LABCLIA [id number] [place] [address] [place] aPTT Coag (PPP) [Time] 49.8 s High 23.0-32.4 [facility] Comment on above: Order Comment: Speci men Type: BLOOD SPECIMENOrdering Facility: [facility] Address: [address] [place] [address] Performed By: #### P TTAC ####[facility] LABCLIA [id number] [place] [id number] [place] CBC panel Auto (Bld)on 12-15 Erythrocyte distribution width (RBC) [Ratio] 12.7 % Normal 11.5-15.0 [facility] Comment on above: Order Comment: Speci men Type: BLOOD SPECIMENOrdering Facility: [facility] Address: [address] [place] [address] Performed By: #### 5 8410-2 ####[facility] LABORATORYCLIA [id number] [address] OF [facility] Hematocrit (Bld) [Volume fraction] 44.0 % Normal 36.0-46.0 [facility] Comment on above: Order Comment: Speci men Type: BLOOD SPECIMENOrdering Facility: [facility] Address: [address] [place] [address] Performed By: #### 5 8410-2 ####[facility] LABORATORYCLIA [id number] [address] [place] Hemoglobin (Bld) [Mass/Vol] 14.4 g/dL Normal 11.5-15.5 [facility] Comment on above: Order Comment: Speci men Type: BLOOD SPECIMENOrdering Facility: [facility] Address: [address] [place] [address] Performed By: #### 5 8410-2 ####[facility] LABORATORYCLIA [id number] [address] [place] MCH (RBC) [Entitic mass] 31.0 pg Normal 26.0-34.0 [facility] Comment on above: Order Comment: Speci men Type: BLOOD SPECIMENOrdering Facility: [facility] Address: [address] [place] [address] Performed By: #### 5 8410-2 ####[facility] LABORATORYCLIA [id number] [address] [place] MCHC (RBC) [Mass/Vol] 32.7 g/dL Normal 30.5-36.0 [facility] Comment on above: Order Comment: Speci men Type: BLOOD SPECIMENOrdering Facility: [facility] Address: [address] [place] [address] Performed By: #### 5 8410-2 ####[facility] LABORATORYCLIA [id number] [address] [place] MCV (RBC) [Entitic vol] 94.6 fL Normal 80.0-100.0 [facility] Comment on above: Order Comment: Speci men Type: BLOOD SPECIMENOrdering Facility: [facility] Address: [address] [place] [address] Performed By: #### 5 8410-2 ####[facility] LABORATORYCLIA [id number] [address] [place] Nucleated RBC (Bld) [#/Vol] 10*3/uL Normal <0.01 [facility] Comment on above: Order Comment: Speci men Type: BLOOD SPECIMENOrdering Facility: [facility] Address: [address] [place] [address] Performed By: #### 5 8410-2 ####[facility] LABORATORYCLIA [id number] [address] [place] Platelet mean volume (Bld) [Entitic vol] 10.0 fL Normal 9.0-12.7 [facility] Comment on above: Order Comment: Speci men Type: BLOOD SPECIMENOrdering Facility: [facility] Address: [address] [place] [address] Performed By: #### 5 8410-2 ####[facility] LABORATORYCLIA [id number] [address] [place] Platelets (Bld) [#/Vol] 453 10*3/uL High 150-400 [facility] Comment on above: Order Comment: Speci men Type: BLOOD SPECIMENOrdering Facility: [facility] Address: [address] [place] [address] Performed By: #### 5 8410-2 ####[facility] LABORATORYCLIA [id number] [place] [address] [place] RBC (Bld) [#/Vol] 4.65 10*6/uL Normal 3.90-5.20 [facility] Comment on above: Order Comment: Speci men Type: BLOOD SPECIMENOrdering Facility: [facility] Address: [address] [place] [address] Performed By: #### 5 8410-2 ####[facility] LABORATORYCLIA [id number] [place] [address] [place] WBC (Bld) [#/Vol] 9.18 10*3/uL Normal 3.70-11.00 [facility] Comment on above: Order Comment: Marika hammonds Type: BLOOD SPECIMENOrdering Facility: [facility] Address: [address] [place] [id number] Performed By: #### 5 8410-2 ####[facility] LABORATORYCLIA [id number] [address] OF [facility] CNDSon 12-15-2024 CNDS HNO ID: [id number] Author: GRIFFIN VAUGHAN MD Service: Hospital Medicine Author Type: Resident Type: Discharge Summary Filed: 12/18/2024 07:18 Note Text: Attestation signed by Griffin Vaughan MD at 12/18/2024 7:18 AM Agree with below. DISCHARGE SUMMARY PATIENT NAME: Maureen Barron ADMISSION DATE: 12/13/2024 DISCHARGE DATE: 12/15/2024 Attending Physician: Griffin Vaughan MD Code Status: Full Code Highest Readmission Risk Score: 12 The 30 day readmissions risk score is derived from an internally validated risk model which evaluates patient level characteristics, utilization history, medication orders and lab results up until the day of discharge. Patients with a score of 39 or above are considered highest risk for readmission. Specific patient level drivers will be listed at the bottom of the summary. The 30 day readmissions risk score is derived from an internally validated risk model which evaluates patient level characteristics, utilization history, medication orders and lab results up until the day of discharge. Patients with a score of 40 or above are considered highest risk for readmission. Specific patient level drivers will be listed at the bottom of the summary. PRINCIPAL PROBLEM: NSTEMI (non-ST elevated myocardial infarction) (HCC) Operations During Hospitalization: None Procedures During Hospitalization: Echocardiogram, EKG, and Heart Catheterization: NO Intervention Hospital Course: Maureen Barron is a 69 year old female with PMHx HTN, ICA occlusion (s/p endarterectomy), cerebral aneurysm (s/p repair 2018), PAD, HLD, polysubstance use disorder who presented with c/o SOB to [place], treated for NSTEMI and AE HFrEF in setting of new, now severe MR, transferred to [facility] CV-ICU for CTS evaluation. She was diuresed and medically managed for NSTEMI in CV-ICU, weaned off BiPAP and deemed stable for RNF on 12/14. She was transferred to [facility] where CTS recommended transfer to [facility] for high risk surgery vs MitraClip +/- PCI vs medical therapy in this medically complex patient. Principal Problem (Resolved): NSTEMI (non-ST elevated myocardial infarction) (HCC) (POA: Yes) Active Problems: Essential hypertension (POA: Yes) Elevated troponin (POA: Yes) Mixed hyperlipidemia (POA: Yes) Peripheral arterial disease (POA: Yes) Polysubstance abuse (HCC) (POA: Yes) Ischemic cardiomyopathy (POA: Yes) Nonrheumatic mitral valve regurgitation (POA: Yes) Resolved Problems: Acute HFrEF (heart failure with reduced ejection fraction) (HCC) (POA: Yes) Consulting Teams During Hospitalization: Cardiology: General and Interventional Psychiatry and Addiction medicine Patient Condition @ Discharge: Guarded Discharge Disposition: Acute Care Hospital Transfer to Acute Care Documentation -Reason for transfer: Higher level of care -Treatment/intervent ions attempted since last progress note: None -Clinical condition at transfer: Stable/Guarded -Name of accepting physician, receiving hospital, and unit: [facility] ALLERGIES No Known Allergies Discharge Medications: Medication List START taking these medications atorvastatin 80 mg tablet Commonly known as: LIPITOR Take 1 tablet by mouth daily at bedtime. furosemide 40 mg tablet Commonly known as: LASIX Take 1 tablet by mouth once daily. metoprolol tartrate (short acting) 25 mg tablet Commonly known as: LOPRESSOR Take 0.5 tablets by mouth every 12 hours. CHANGE how you take these medications aspirin, enteric coated 81 mg EC tablet Commonly known as: ASPIRIN, ENTERIC COATED Take 1 tablet by mouth once daily. What changed: how much to take levothyroxine 100 mcg tablet Commonly known as: SYNTHROID Take 1 tablet by mouth once daily. Patient should start on December 16, 2024. Start taking on: December 16, 2024 What changed: medication strength how much to take CONTINUE taking these medications Ibandronate 150 mg tablet Commonly known as: BONIVA Take 1 tablet by mouth once every month. In AM with cup of water on empty stomach. Nothing else by mouth and stay upright for 60 min. STOP taking these medications amLODIPine 10 mg tablet Commonly known as: NORVASC Plan of Care: Plan of care discussed with Provider, RN, Patient The patient's risk for 30-day readmission is determined using the following contributing factors: The patient's risk for 30-day readmission is determined using the following contributing factors: Predictive Model Details 11% (Low) Factor Value Calculated 12/15/2024 17:17 -13% Admission Provider Speciality CARDIOLOGY [facility] READMISSION RISK Model 9% [place] [address] CARD/HF/PD -8% Admissions (90d) 1 -7% Length of Stay (d) 2 -7% RDW (Max) 12.9 -7% Yue Garcia 5 -7% Observations (36 (more content not included)... Normal [facility] Comprehensive metabolic 2000 panelon 12-15-2024 Albumin [Mass/Vol] 3.0 g/dL Low 3.9-4.9 [facility] Comment on above: Order Comment: Marika hammonds Type: BLOOD SPECIMENOrdering Facility: [facility] Address: [address] [place] [address] Performed By: #### 2 276-4, 87356-4 ####[facility] LABORATORYCLIA [id number] [place] [address] [place] ALP [Catalytic activity/Vol] 77 U/L Normal 34-123 [facility] Comment on above: Order Comment: Marika hammonds Type: BLOOD SPECIMENOrdering Facility: [facility] Address: [address] [place] [address] Performed By: #### 2 276-4, 30661-8 ####[facility]ORATORYCLIA [id number] [place] [address] [place] ALT With P-5'-P [Catalytic activity/Vol] 22 U/L Normal 7-38 [facility] Comment on above: Order Comment: Speci men Type: BLOOD SPECIMENOrdering Facility: [facility] Address: [address] [place] [address] Performed By: #### 2 276-4, 23973-2 ####[facility] LABORATORYCLIA [id number] [address] STATES OF [facility] Anion gap [Moles/Vol] 10 mmol/L Normal 8-15 [facility] Comment on above: Order Comment: Speci men Type: BLOOD SPECIMENOrdering Facility: [facility] Address: [address] [place] [address] Performed By: #### 2 276-4, 81592-3 ####[facility] LABORATORYCLIA [id number] [address] STATES OF [facility] AST With P-5'-P [Catalytic activity/Vol] 21 U/L Normal 13-35 [facility] Comment on above: Order Comment: Speci men Type: BLOOD SPECIMENOrdering Facility: [facility] Address: [address] [place] [address] Performed By: #### 2 276-4, 83730-2 ####[facility] LABORATORYCLIA [id number] [address] [place] Bilirubin [Mass/Vol] mg/dL Low 0.2-1.3 [facility] Comment on above: Order Comment: Speci men Type: BLOOD SPECIMENOrdering Facility: [facility] Address: [address] [place] [address] Performed By: #### 2 276-4, 17091-4 ####[facility] LABORATORYCLIA [id number] [address] [place] Calcium [Mass/Vol] 8.8 mg/dL Normal 8.5-10.2 [facility] Comment on above: Order Comment: Speci men Type: BLOOD SPECIMENOrdering Facility: [facility] Address: [address] [place] [address] Performed By: #### 2 276-4, 68576-5 ####[facility] LABORATORYCLIA [id number] [place] [address] [place] Chloride [Moles/Vol] 107 mmol/L Normal 98-107 [facility] Comment on above: Order Comment: Speci men Type: BLOOD SPECIMENOrdering Facility: [facility] Address: [address] [place] [address] Performed By: #### 2 276-4, 25545-8 ####[facility] LABORATORYCLIA [id number] [address] [place] CO2 [Moles/Vol] 21 mmol/L Low 22-30 [facility] Comment on above: Order Comment: Speci men Type: BLOOD SPECIMENOrdering Facility: [facility] Address: [address] [place] [address] Performed By: #### 2 276-4, 00833-0 ####[facility] LABORATORYCLIA [id number] [address] [place] Creatinine [Mass/Vol] 1.56 mg/dL High 0.58-0.96 [facility] Comment on above: Order Comment: Speci men Type: BLOOD SPECIMENOrdering Facility: [facility] Address: [address] [place] [address] Performed By: #### 2 276-4, 00072-0 ####[facility] LABORATORYCLIA [id number] [address] Creatinine and Glomerular filtration rate.predicted panel (S/P/Bld) 36 mL/min/1.73m??? Low >=60 [facility] Comment on above: Order Comment: Speci men Type: BLOOD SPECIMENOrdering Facility: [facility] Address: [address] [place] [address] Result Comment: Maru mated Glomerular Filtration Rate [...] reflect actual GFR. Performed By: #### 2 276-4, 78009-5 ####[facility] LABORATORYCLIA [id number] [place] [address] [place] Glucose [Mass/Vol] 116 mg/dL High 74-99 [facility] Comment on above: Order Comment: Marika hammonds Type: BLOOD SPECIMENOrdering Facility: [facility] Address: [address] [place] [address] Result Comment: The [place] [employer] (ADA) provides guidance for cutoff [...] Standards of Medical Care in Diabetes 2016, [place] [employer]. Diabetes Care. 2016.39(Suppl 1). Performed By: #### 2 276-4, 22356-8 ####[facility] LABORATORYCLIA [id number] [place] [address] [place] Potassium [Moles/Vol] 4.4 mmol/L Normal 3.7-5.1 [facility] Comment on above: Order Comment: Marika hammonds Type: BLOOD SPECIMENOrdering Facility: [facility] Address: [address] [place] [id number] Performed By: #### 2 276-4, 64343-4 ####[facility] LABORATORYCLIA [id number] [place] [address] [place] Protein [Mass/Vol] 6.2 g/dL Low 6.3-8.0 [facility] Comment on above: Order Comment: Marika hammonds Type: BLOOD SPECIMENOrdering Facility: [facility] Address: [address] [place] [address] Performed By: #### 2 276-4, 93881-5 ####[facility] LABORATORYCLIA [id number] [place] [address] [place] [facility] Sodium [Moles/Vol] 138 mmol/L Normal 136-144 [facility] Comment on above: Order Comment: Speci men Type: BLOOD SPECIMENOrdering Facility: [facility] Address: [address] [place] [address] Performed By: #### 2 276-4, 30334-1 ####[facility] LABORATORYCLIA [id number] [place] [address] [place] Urea nitrogen [Mass/Vol] 27 mg/dL High 7-21 [facility] Comment on above: Order Comment: Speci men Type: BLOOD SPECIMENOrdering Facility: [facility] Address: [address] [place] [address] Performed By: #### 2 276-4, 47962-5 ####[facility] LABORATORYCLIA [id number] [place] [address] [place] Ferritin SerPl-mCncon 2024 Ferritin [Mass/Vol] 342.0 ng/mL High 14.7-205.1 [facility] Comment on above: Order Comment: Speci men Type: BLOOD SPECIMENOrdering Facility: [facility] Address: [address] [place] [address] Performed By: #### 2 276-4, 95468-8 ####[facility] LABORATORYCLIA [id number] [place] [address] [place] HIGH SENSITIVITY TROPONIN To n 12-15-2024 Troponin T.cardiac High sensitivity method [Mass/Vol] 624 ng/L High <12 [facility] Comment on above: Order Comment: Speci men Type: BLOOD SPECIMENOrdering Facility: [facility] Address: [address] [place] [address] Performed By: #### 1 0835-7, HSTNT ####[facility] LABCLIA [id number] [place] [id number] [place] HISTORY PHYSICALon HISTORY PHYSICAL Normal [facility] SerPl-mCncon 12-15-2024 Lipoprotein a [Mass/Vol] 44 mg/dL High <30 [facility] Comment on above: Order Comment: Speci men Type: BLOOD SPECIMENOrdering Facility: [facility] Address: [address] [place] [address] Performed By: #### 1 0835-7, HSTNT ####[facility] LABCLIA [id number] [address] PT panel Coag (PPP)on 2024 INR Coag (PPP) [Relative time] 1.1 {INR} Normal 0.9-1.3 [facility] Comment on above: Order Comment: Speci men Type: BLOOD SPECIMENOrdering Facility: [facility] Address: [address] [place] [address] Result Comment: Tisha min K Antagonist (VKA) Therapeutic Range: INR 2 to 3 (Target INR of 2.5)Note: For patients treated with VKA drugs, such as warfarin, the [place] [employer] 2012 Guideline recommends a therapeutic INR range of 2 to 3 (target INR of 2.5). This recommendation includes high-risk patients with antiphospholipid syndrome with previous arterial or venous thromboembolism, current-generation mechanical or bioprosthetic aortic heart valve replacement.Note: Patients with mechanical aortic valve replacement and additional risk factors for thromboembolic events (atrial fibrillation, previous thromboembolism, LV dysfunction, hypercoagulable conditions) or an older generation mechanical AVR (i.e., ball in-Cage) or any mechanical MVR should have a INR therapeutic range of 2.5 to 3.5 (target INR of 3).Barbara GH, et al. Chest 2012, 141:7S-47SNishtyra RA, et al. [facility] 2017, 70: 252-289 Performed By: #### 3 4528-0, 64798-8 ####[facility] LABCLIA [id number] [place] [id number] [place] PT Coag (PPP) [Time] 11.4 s Normal 9.7-13.0 [facility] Comment on above: Order Comment: Speci men Type: BLOOD SPECIMENOrdering Facility: [facility] Address: [address] [place] [address] Performed By: #### 3 4528-0, 76904-4 ####[facility] LABCLIA [id number] [place] [address] [place] XR CHEST 1V FRONTAL PORTon 0 12-15-2024 XR CHEST 1V FRONTAL PORT Normal [facility] aPTT PPPon 12-15-2024 aPTT Coag (PPP) [Time] 39.2 s High 23.0-32.4 [facility] Comment on above: Order Comment: Speci men Type: BLOOD SPECIMENOrdering Facility: [facility] Address: [address] [place] [address] Performed By: #### 3 4528-0, 14685-8 ####[facility] LABCLIA [id number] [address] [place] aPTT Coag (PPP) [Time] 57.7 s High 23.0-32.4 [facility] Comment on above: Order Comment: Speci men Type: BLOOD SPECIMENOrdering Facility: [facility] Address: [address] [place] [address] Performed By: #### 1 4979-9 ####[facility] LABORATORYCLIA [id number] [place] [address] [place] aPTT Coag (PPP) [Time] 55.4 s High 23.0-32.4 [facility] Comment on above: Order Comment: Speci men Type: BLOOD SPECIMENOrdering Facility: [facility] Address: [address] [place] [address] Performed By: #### 1 4979-9 ####[facility] LABORATORYCLIA [id number] [place] [address] [place] ALLIED HEALTHon 12-14-2024 ALLIED HEALTH HNO ID: [id number] Author: CLAUDETTE QUIROS RN Service: Cardiac Rehab Author Type: Registered Nurse Type: Allied Health Filed: 12/14/2024 09:01 Note Text: CARDIAC REHAB 5 METER WALK TEST SERVICE DATE: 12/14/2024 SERVICE TIME: 0835 ASSESSMENT: 5 Meter Walk Test 5 Meter Walk Test Completed: Yes Trial 1 # of Seconds: 6.93 Trial 1 Assistive Device: IV Pole, Oxygen Trial 2 # of Seconds: 6.43 Trial 2 Assistive Device: IV Pole, Oxygen Trial 3 # of Seconds: 7.08 Trial 3 Assistive Device: IV Pole, Oxygen SIGNATURE: Claudette Quiros RN PATIENT NAME: Maureen Barron DATE: December 14, 2024 TIME: 9:00 AM PAGER/CONTACT #: [phone] Normal [facility] Basic Metabolic Profile (BMP )on 12-14-2024 BUN Normal 4-19 [facility] Comment on above: Result Comment: Canc elled via OM: Order cancelled - Patient discharged Performed By: #### L 100.0100, L500.2500 #### [facility] [address] [facility] [address] BUN/CRE Normal 10-20 [facility] Comment on above: Result Comment: Canc elled via OM: Order cancelled - Patient discharged Performed By: #### L 100.0100, L500.2500 #### [facility] [address] [facility] [address] Calcium Normal 7.6-11.0 [facility] Comment on above: Result Comment: Canc elled via OM: Order cancelled - Patient discharged Performed By: #### L 100.0100, L500.2500 #### [facility] [address] [place], [address] CL Normal 98-108 [facility] Comment on above: Result Comment: Canc elled via OM: Order cancelled - Patient discharged Performed By: #### L 100.0100, L500.2500 #### [facility] [address] [place], [address] CO2 Normal 21.0-32.0 [facility] Comment on above: Result Comment: Canc elled via OM: Order cancelled - Patient discharged Performed By: #### L 100.0100, L500.2500 #### [facility] [address] [place], [address] CREAT,SERUM Normal 0.70-1.20 [facility] Comment on above: Result Comment: Canc elled via OM: Order cancelled - Patient discharged Performed By: #### L 100.0100, L500.2500 #### [facility] [address] [place], [address] eGFR Normal >60 [facility] Comment on above: Result Comment: Canc elled via OM: Order cancelled - Patient discharged Performed By: #### L 100.0100, L500.2500 #### [facility] [address] [place], [address] GAP Normal 5-15 [facility] Comment on above: Result Comment: Canc elled via OM: Order cancelled - Patient discharged Performed By: #### L 100.0100, L500.2500 #### [facility] [address] [place], [address] GLU Normal 70-99 [facility] Comment on above: Result Comment: Canc elled via OM: Order cancelled - Patient discharged Performed By: #### L 100.0100, L500.2500 #### [facility] [address] [place], [address] Potassium Normal 3.3-5.1 [facility] Comment on above: Result Comment: Canc elled via OM: Order cancelled - Patient discharged Performed By: #### L 100.0100, L500.2500 #### [facility] [address] [place], [address] Basic Metabolic Profile (BMP) Normal 133-145 [facility] Comment on above: Result Comment: Canc elled via OM: Order cancelled - Patient discharged Performed By: #### L 100.0100, L500.2500 #### [facility] [address] [place], [address] CBC W/Diff, Automatedon 06- Absolute Neut Normal 2.0-7.7 [facility] Comment on above: Result Comment: Canc elled via OM: Order cancelled - Patient discharged Performed By: #### L 100.0100, L500.2500 #### [facility] [address] [place], [address] HCT Normal 37-47 [facility] Comment on above: Result Comment: Canc elled via OM: Order cancelled - Patient discharged Performed By: #### L 100.0100, L500.2500 #### [facility] [address] [place], [address] HGB Normal 12.0-15.0 [facility] Comment on above: Result Comment: Canc elled via OM: Order cancelled - Patient discharged Performed By: #### L 100.0100, L500.2500 #### [facility] [address] [place], [address] MCH Normal 27.0-32.0 [facility] Comment on above: Result Comment: Canc elled via OM: Order cancelled - Patient discharged Performed By: #### L 100.0100, L500.2500 #### [facility] [address] [place], [address] MCHC Normal 32-36 [facility] Comment on above: Result Comment: Canc elled via OM: Order cancelled - Patient discharged Performed By: #### L 100.0100, L500.2500 #### [facility] [address] [place], [address] MCV Normal 81-99 [facility] Comment on above: Result Comment: Canc elled via OM: Order cancelled - Patient discharged Performed By: #### L 100.0100, L500.2500 #### [facility] [address] [place], [address] NEUT% Normal 47-70 [facility] Comment on above: Result Comment: Canc elled via OM: Order cancelled - Patient discharged Performed By: #### L 100.0100, L500.2500 #### [facility] [address] [place], [address] PLT Normal 150-450 [facility] Comment on above: Result Comment: Canc elled via OM: Order cancelled - Patient discharged Performed By: #### L 100.0100, L500.2500 #### [facility] [address] [place], [address] RBC Normal 4.2-5.4 [facility] Comment on above: Result Comment: Canc elled via OM: Order cancelled - Patient discharged Performed By: #### L 100.0100, L500.2500 #### [facility] [address] [place], [address] RDW CV Normal 11.6-14.6 [facility] Comment on above: Result Comment: Canc elled via OM: Order cancelled - Patient discharged Performed By: #### L 100.0100, L500.2500 #### [facility] [address] [place], [address] RDW SD Normal 35.1-43.9 [facility] Comment on above: Result Comment: Canc elled via OM: Order cancelled - Patient discharged Performed By: #### L 100.0100, L500.2500 #### [facility] [address] [place], [address] WBC Normal 4.4-11.0 [facility] Comment on above: Result Comment: Canc elled via OM: Order cancelled - Patient discharged Performed By: #### L 100.0100, L500.2500 #### [facility] [address] [place], [address] CBC panel Auto (Bld)on 12-14 Erythrocyte distribution width (RBC) [Ratio] 12.9 % Normal 11.5-15.0 [facility] Comment on above: Order Comment: Speci men Type: BLOOD SPECIMENOrdering Facility: [facility] Address: [address] [place] [address] Performed By: #### 5 8410-2 ####[facility] LABORATORYCLIA [id number] [address] STATES OF [facility] Hematocrit (Bld) [Volume fraction] 43.1 % Normal 36.0-46.0 [facility] Comment on above: Order Comment: Speci men Type: BLOOD SPECIMENOrdering Facility: [facility] Address: [address] [place] [address] Performed By: #### 5 8410-2 ####[facility] LABORATORYCLIA [id number] [address] [place] Hemoglobin (Bld) [Mass/Vol] 14.2 g/dL Normal 11.5-15.5 [facility] Comment on above: Order Comment: Speci men Type: BLOOD SPECIMENOrdering Facility: [facility] Address: [address] [place] [address] Performed By: #### 5 8410-2 ####[facility] LABORATORYCLIA [id number] [address] [place] MCH (RBC) [Entitic mass] 30.7 pg Normal 26.0-34.0 [facility] Comment on above: Order Comment: Speci men Type: BLOOD SPECIMENOrdering Facility: [facility] Address: [address] [place] [address] Performed By: #### 5 8410-2 ####[facility] LABORATORYCLIA [id number] [place] [address] [place] MCHC (RBC) [Mass/Vol] 32.9 g/dL Normal 30.5-36.0 [facility] Comment on above: Order Comment: Speci men Type: BLOOD SPECIMENOrdering Facility: [facility] Address: [address] [place] [address] Performed By: #### 5 8410-2 ####[facility] LABORATORYCLIA [id number] [address] [place] MCV (RBC) [Entitic vol] 93.3 fL Normal 80.0-100.0 [facility] Comment on above: Order Comment: Speci men Type: BLOOD SPECIMENOrdering Facility: [facility] Address: [address] [place] [address] Performed By: #### 5 8410-2 ####[facility] LABORATORYCLIA [id number] [address] Nucleated RBC (Bld) [#/Vol] 10*3/uL Normal <0.01 [facility] Comment on above: Order Comment: Speci men Type: BLOOD SPECIMENOrdering Facility: [facility] Address: [address] [place] [address] Performed By: #### 5 8410-2 ####[facility] LABORATORYCLIA [id number] [address] [place] Platelet mean volume (Bld) [Entitic vol] 9.9 fL Normal 9.0-12.7 [facility] Comment on above: Order Comment: Speci men Type: BLOOD SPECIMENOrdering Facility: [facility] Address: [address] [place] [address] Performed By: #### 5 8410-2 ####[facility] LABORATORYCLIA [id number] [address] [place] Platelets (Bld) [#/Vol] 440 10*3/uL High 150-400 [facility] Comment on above: Order Comment: Speci men Type: BLOOD SPECIMENOrdering Facility: [facility] Address: [address] [place] [address] Performed By: #### 5 8410-2 ####[facility] LABORATORYCLIA [id number] [place] [address] [place] RBC (Bld) [#/Vol] 4.62 10*6/uL Normal 3.90-5.20 [facility] Comment on above: Order Comment: Speci men Type: BLOOD SPECIMENOrdering Facility: [facility] Address: [address] [place] [address] Performed By: #### 5 8410-2 ####[facility] LABORATORYCLIA [id number] [address] OF [facility] WBC (Bld) [#/Vol] 9.39 10*3/uL Normal 3.70-11.00 [facility] Comment on above: Order Comment: Speci men Type: BLOOD SPECIMENOrdering Facility: [facility] Address: [address] [place] [address] Performed By: #### 5 8410-2 ####[facility] LABORATORYCLIA [id number] [address] CONSULTon 12-14-2024 CONSULT HNO ID: [id number] Author: KARISSA DEL VALLE MD Service: Family Practice Author Type: Physician Type: Consults Filed: 12/14/2024 13:45 Note Text: ADDICTION PSYCHIATRY SERVICE INITIAL CONSULT NOTE SIGNATURE: Sukhi Abbott MD PATIENT NAME: Maureen Barron DATE: December 14, 2024 TIME: 1:12 PM Referring Provider: Logan Alvarado MD Reason for consult: Methamphetamine AND cocaine abuse Subjective SUBJECTIVE CHIEF COMPLAINT: Dyspnea HISTORY OF PRESENT ILLNESS: Maureen Barron is a 69 year old retired female who lives with a family member (sister) and has pertinent PMH HTN, ICA occlusion (s/p endarterectomy), cerebral aneurysm (s/p repair 2019), PAD, nicotine use, HLD, and hypothyroidism who was admitted for severe mitral regurg and NSTEMI. Addiction consulted for history of recent and ongoing methamphetamine and cocaine abuse Last drink: N/A UDS: Benzodiazepine AND cannabinoids BAL: N/A CIWA/COWS: N/A Labs: GFR 41, LFT WNL, CBC unremarkable Qtc: 494 Imaging: N/A PDMP Report: Reviewed, no red flags -Last opioid dispensed to patient 03/29/2024 On assessment: *Patient not amenable to addiction discussion or interventions, initially refusing to engage with the team. History thus limited *Patient endorsing lifetime of methamphetamine and cocaine abuse. She gets her supply from a friend and believes it is not laced with anything *She lives with her sister at home, although her sister is away at the moment *She does not feel safe because she believes her neighbors are cooking meth and that the police are helping to cover it up *Patient endorsing beliefs of microphones attached to her devices, lasers being fired into her ears, and both the police and neighbors hacking into her devices. SUBSTANCE USE HISTORY: ETOH: No history of use or dependence NICOTINE: No history of use or dependence MARIJUANA: No history of use or dependence OPIOIDS: No history of use or dependence BENZODIAZEPINE: No history of use or dependence STIMULANTS: Cocaine; Current usage is difficult to assess given patient agitation and poor historian status Methamphetamine; Current usage is difficult to assess given patient agitation and poor historian status VOLATILE INHALANTS: No history of use or dependence OTHER SUBSTANCE USE: None BEHAVIORAL ADDICTION: None FAMILY HX: None OVERDOSE HX:None INFECTIONS: None IVDU: None SUBSTANCE USE TREATMENT HISTORY: Inpatient [facility] Rehab: No Outpatient [facility] treatment: None MAT/MOUD Hx: None PSYCHIATRIC HISTORY: Diagnosis: Denies IP Hospitalizations:Non e OP Treatment history: None Medication trials: None Suicide attempts: None Trauma: None PSYCHIATRIC ROS: Depression: Denies any current symptoms of depression with no suicidal thoughts, intent or plan. Malaika: Denies any history of hypomanic or manic episodes. Psychosis: Delusions and Disorganization VARUN: Excessive worry more than not Panic: Denies any symptoms of panic OCD: Denies any symptoms of OCD. PTSD: Denies any PTSD symptoms. SOCIAL HISTORY: *Retired and lives with sister at apartment STRESSORS: *Delusions, neighbor conflicts MEDICAL ROS: Positive for anxiety. PAST MEDICAL HISTORY Diagnosis Date Aneurysm 2019 Cardiovascular disease 2010 Hypertension Leg fracture, left 01/2024 Thyroid disease PAST SURGICAL HISTORY Procedure Laterality Date BRAIN SURGERY HX 02/11/2022 endovascular embolization basilar tip aneurysm CAROTID ENDARTERECTOMY Left 2018 HIP SURGERY HX anders placed SHX VASCULAR SURGERY 2019 FAMILY HISTORY Problem Relation Age of Onset Hypertension Mother Hyperlipidemia Mother Heart Mother Intersitial Lung Disease Mother Thyroid Mother Hyperlipidemia Father Hypertension Father Diabetes Father Heart Attack Father Stroke Father Systemic Lupus Erythematosus Sister Cancer Paternal Grandfather stomach Leukemia Maternal Uncle Social History Tobacco Use Smoking status: Every Day Current packs/day: 0.50 Types: Cigarettes Smokeless tobacco: Never Vaping Use Vaping status: Former Substance Use Topics Alcohol use: Not Currently Comment: rarely Drug use: Yes Types: Marijuana Comment: Smokes about 4 to 5 times daily MEDICATIONS: Current Facility-Administere d Medications Medication Dose Route Frequency levothyroxine 112 mcg tab(s) (SYNTHROID) 112 mcg ORAL DAILY NaCl 0.9% iv flush bag 20 mL INTRAVENOUS PRN metoprolol tartrate (short acting) 12.5 mg tab(s) (LOPRESSOR) 12.5 mg ORAL q 12 H heparin iv infusion 25,000 units in NaCl 0.45% 250 mL LOW DOSE/ACS NOMOGRAM 0-3,000 Units/hr INTRAVENOUS CONTINUOUS And heparin RATE CHANGE bolus 1,000-4,000 Units for subtherapeutic PTTAC results 1,000-4,000 Units INTRAVENOUS PRN atorvastatin 80 mg tab(s) (LIPITOR) 80 mg ORAL AT BEDTIME aspirin, enteric coated 81 mg tab(s) 81 mg ORAL DAILY mupirocin 2 % 0.5 g nasal ointment (BACTROBAN) 0.5 g NASAL BI (more content not included)... Normal [facility] Comprehensive metabolic 2000 panelon 12-14-2024 Albumin [Mass/Vol] 3.0 g/dL Low 3.9-4.9 [facility] Comment on above: Order Comment: Marika hammonds Type: BLOOD SPECIMENOrdering Facility: [facility] Address: [address] [place] [address] Performed By: #### 2 4323-8, [facility], 3024-7 ####[facility] LABORATORYCLIA [id number] [place] [address] [place] ALP [Catalytic activity/Vol] 74 U/L Normal 34-123 [facility] Comment on above: Order Comment: Marika hammonds Type: BLOOD SPECIMENOrdering Facility: [facility] Address: [address] [place] [address] Performed By: #### 2 4323-8, [facility], 3024-01 ####[facility] LABORATORYCLIA [id number] [place] [address] [place] ALT With P-5'-P [Catalytic activity/Vol] 27 U/L Normal 7-38 [facility] Comment on above: Order Comment: Speci men Type: BLOOD SPECIMENOrdering Facility: [facility] Address: [address] [place] [address] Performed By: #### 2 4323-8, TSH, 3024-01 ####[facility] LABORATORYCLIA [id number] [place] [address] [place] Anion gap [Moles/Vol] 9 mmol/L Normal 8-15 [facility] Comment on above: Order Comment: Speci men Type: BLOOD SPECIMENOrdering Facility: [facility] Address: [address] [place] [address] Performed By: #### 2 432-8, [facility], 3024-01 ####[facility] LABORATORYCLIA [id number] [place] [address] [place] [facility] AST With P-5'-P [Catalytic activity/Vol] 27 U/L Normal 13-35 [facility] Comment on above: Order Comment: Speci men Type: BLOOD SPECIMENOrdering Facility: [facility] Address: [address] [place] [address] Performed By: #### 2 4323-8, [facility], 3024-01 ####[facility] LABORATORYCLIA [id number] [address] [place] Bilirubin [Mass/Vol] mg/dL Low 0.2-1.3 [facility] Comment on above: Order Comment: Speci men Type: BLOOD SPECIMENOrdering Facility: [facility] Address: [address] [place] [address] Performed By: #### 2 4323-8, TSHRF, 3024-01 ####[facility] LABORATORYCLIA [id number] [address] [place] Calcium [Mass/Vol] 8.9 mg/dL Normal 8.5-10.2 [facility] Comment on above: Order Comment: Speci men Type: BLOOD SPECIMENOrdering Facility: [facility] Address: [address] [place] [address] Performed By: #### 2 4323-8, TSH, 3024-01 ####[facility] LABORATORYCLIA [id number] [place] [address] [place] Chloride [Moles/Vol] 105 mmol/L Normal 98-107 [facility] Comment on above: Order Comment: Speci men Type: BLOOD SPECIMENOrdering Facility: [facility] Address: [address] [place] [address] Performed By: #### 2 4323-8, [facility], 3024-01 ####[facility] LABORATORYCLIA [id number] [place] [address] [place] CO2 [Moles/Vol] 24 mmol/L Normal 22-30 [facility] Comment on above: Order Comment: Speci men Type: BLOOD SPECIMENOrdering Facility: [facility] Address: [address] [place] [address] Performed By: #### 2 4323-8, [facility], 3024-01 ####[facility] LABORATORYCLIA [id number] [address] [place] Creatinine [Mass/Vol] 1.40 mg/dL High 0.58-0.96 [facility] Comment on above: Order Comment: Speci men Type: BLOOD SPECIMENOrdering Facility: [facility] Address: [address] [place] [address] Performed By: #### 2 4323-8, [facility], 7 ####[facility] LABORATORYCLIA [id number] [address] Creatinine and Glomerular filtration rate.predicted panel (S/P/Bld) 41 mL/min/1.73m??? Low >=60 [facility] Comment on above: Order Comment: Speci men Type: BLOOD SPECIMENOrdering Facility: [facility] Address: [address] [place] [address] Result Comment: Maru mated Glomerular Filtration Rate [...] reflect actual GFR. Performed By: #### 2 4323-8, [facility], 3024-01 ####[facility] LABORATORYCLIA [id number] [place] [address] [place] Glucose [Mass/Vol] 120 mg/dL High 74-99 [facility] Comment on above: Order Comment: Marika hammonds Type: BLOOD SPECIMENOrdering Facility: [facility] Address: [address] [place] [address] Result Comment: The [place] [employer] (ADA) provides guidance for cutoff [...] Standards of Medical Care in Diabetes 2016, [place] [employer]. Diabetes Care. 2016.39(Suppl 1). Performed By: #### 2 4323-8, [facility], 3024-01 ####[facility] LABORATORYCLIA [id number] [place] [address] [place] Potassium [Moles/Vol] 4.3 mmol/L Normal 3.7-5.1 [facility] Comment on above: Order Comment: Marika hammonds Type: BLOOD SPECIMENOrdering Facility: [facility] Address: [address] [place] [address] Performed By: #### 2 4323-8, [facility], 3024-01 ####[facility] LABORATORYCLIA [id number] [place] [address] [place] Protein [Mass/Vol] 6.4 g/dL Normal 6.3-8.0 [facility] Comment on above: Order Comment: Speci men Type: BLOOD SPECIMENOrdering Facility: [facility] Address: [address] [place] [address] Performed By: #### 2 4323-8, TSH, 3024-7 ####[facility] LABORATORYCLIA [id number] [place] [id number] [place] Sodium [Moles/Vol] 138 mmol/L Normal 136-144 [facility] Comment on above: Order Comment: Speci men Type: BLOOD SPECIMENOrdering Facility: [facility] Address: [address] [place] [address] Performed By: #### 2 4323-8, [facility], 3024-7 ####[facility] LABORATORYCLIA [id number] [address] [place] Urea nitrogen [Mass/Vol] 18 mg/dL Normal 7-21 [facility] Comment on above: Order Comment: Speci men Type: BLOOD SPECIMENOrdering Facility: [facility] Address: [address] [place] [address] Performed By: #### 2 4323-8, [facility], 3024-7 ####[facility] LABORATORYCLIA [id number] [place] [address] [place] ECHOon 12-14-2024 Echocardiography Echocardiography Report: Transthoracic Echo [facility] Date of service: 12/14/2024 8:53:31 AM [facility] Ordering physician: VICTOR M BRAND Indication: Evaluation of ventricular function following ACS Technologist: Natalia Del Valle [facility] Interpreting physician: Darrell Weber MD PATIENT: Name: MAUREEN BARRON : 1955 Age: 69 years Gender: F History of myocardial infarction, hypertension, valvular heart disease and coronary artery disease. Primary rhythm: sinus. Height: 152.40 cm BSA: 1.49 m Weight: 52.20 kg BMI: 22.5 kg/m Heart rate 74 bpm Blood pressure 102/70 mmHg Color Doppler was utilized to interrogate the cardiac valves assessed and spectral Doppler was utilized to determine the flow velocities and pressure gradients reported in this exam. Myocardial strain analysis was performed in this exam to aid in the assessment of cardiac function. MEASUREMENTS: Value Indexed Normal Max aortic dimension 3.1 cm Ao < 3.8 Left atrial volume 74 ml (biplane A-L) 49 ml/m Adrian <= 34 LV ID (diastole) 5.1 cm (2D) 3.44 cm/m LV ID (systole) 3.8 cm (2D) 2.53 cm/m IVS, leaflet tips 1.0 cm (2D) Posterior wall thickness 0.9 cm (2D) Left ventricular mass 176 g (2D) 119 g/m Global peak long strain -12.0 % LV stroke volume 41 ml (2D biplane) LV end diastolic volume 109 ml (2D biplane) 73.4 ml/m 29<=EDVi<62 LV end systolic volume 68 ml (2D biplane) 46.1 ml/m Ejection Fraction 37 % (2D biplane) EF > 54 FINDINGS: LEFT VENTRICLE The left ventricle is mildly dilated. There is no left ventricular hypertrophy. Left ventricular systolic function is moderately decreased regionally. Global LV myocardial strain is abnormal. Indeterminate left ventricular diastolic function due to >2+ MR. Mitral annular lateral E/e': 18.3. Mitral annular septal E/e': 15.7. Definity contrast used for endocardial border detection. Wall Motion: The basal inferolateral segment, basal anterolateral segment, basal anterior segment, basal inferior segment, and basal inferoseptal segment are akinetic. The mid inferolateral segment is severely hypokinetic. The mid anterolateral segment, mid inferoseptal segment, mid anterior segment, and mid inferior segment are mildly hypokinetic. All remaining scored segments are normal. RIGHT VENTRICLE The right ventricle is normal in size. Right ventricular systolic function is normal. RV systolic tissue Doppler velocity is 12.0 cm/s. Tricuspid annular displacement is 1.9 cm. Estimated right atrial pressure is 3 mmHg based on IVC assessment. LEFT ATRIUM The left atrial cavity is severely dilated. RIGHT ATRIUM The right atrial cavity is normal in size. Inferior Vena Cava: The inferior vena cava appears normal measuring 1.2 cm. The vessel decreases greater than 50 percent with inspiration. MITRAL VALVE There is moderately severe (3+) mitral valve regurgitation. There is mild thickening. There is mild calcification. Regurgitant orifice area (PISA) is 0.22 cm . The pressure half time is 39 msec. The peak mitral E/A ratio is 1.10. The mitral flow deceleration time is 134 msec. TRICUSPID VALVE The tricuspid valve leaflets are structurally normal. There is no tricuspid valve regurgitation. AORTIC VALVE The aortic valve cusps are structurally normal. There is no aortic valve regurgitation. Tricuspid aortic valve. PULMONIC VALVE There is no pulmonic valve regurgitation. There is no thickening. AORTA The visualized aorta is normal in size. Measurements - Sinus: 3.1 cm. Mid ascending aorta 2.8 cm. PULMONARY ARTERIES The pulmonary arteries are unseen or not interrogated. INTERATRIAL SEPTUM There is no evidence of intracardiac shunting as detected by Doppler. INTERVENTRICULAR SEPTUM The interventricular septum is normal. PERICARDIUM There is no pericardial effusion. CONCLUSIONS: - Exam indication: Evaluation of ventricular function following ACS - The left ventricle is mildly dilated. There is no left ventricular hypertrophy. Left ventricular systolic function is moderately decreased. EF = 37 5% (2D biplane) Definity contrast used for endocardial border detection. Indeterminate left ventricular diastolic function due to >2+ MR. - The right ventricle is normal in size. Right ventricular systolic function is normal. Tricuspid annular displacement is 1.9 cm. - The left atrial cavity is severely dilated. Adrian 49 ml/m . - There is moderately severe (3+) mitral valve regurgitation. Regurgitant orifice area (PISA) is 0.22 cm . The jet is posteriorly directed due to posterior leaflet restriction. Vena contracta the jet measures 5 mm. - Exam was compared with the prior OUTSIDE echocardiographic exam performed on 07/09/2024. (Merc) Lv systolic function has decreased since prior echo. MR has significantly increased since prior echo. Electronically signed by Darrell Weber MD on 12/14 (more content not included)... Normal [facility] HISTORY PHYSICALon HISTORY PHYSICAL HNO ID: [id number] Author: GRIFFIN VAUGHAN MD Service: Hospital Medicine Author Type: Resident Type: H&P Filed: 12/18/2024 07:17 Note Text: Attestation signed by Griffin Vaughan MD at 12/18/2024 7:17 AM [facility] SERVICE ATTENDING ATTESTATION: I saw and evaluated the patient on rounds on 12/15/24. Discussed case with the medicine team and agree with resident's findings and plan as documented in the resident's note. Griffin Vaughan MD [facility] ([facility]) History AND Physical Patient Name: Maureen Barron Admitted for: NSTEMI (non-ST elevated myocardial infarction) ([facility]) [I21.4] LOS: 1 days Subjective HPI Maureen Barron is a 69 year old female with PMHx HTN, ICA occlusion (s/p endarterectomy), cerebral aneurysm (s/p repair 2019), PAD, HLD, polysubstance use disorder who presented to [facility] on 12/13/2024 with c/o SOB after being evaluated at [facility]. She was transferred to [facility] from [place], where she presented with shortness of breath and chest pain, initially on BiPAP. Patient was found to have NSTEMI (HS Trop >1900 per documents sent from [place]). She was started on a Hep gtt. LHC done which showed MV CAD (outside cath available for review in chart). Patient also found to be in heart failure, ECHO obtained showed LVEF ~45% and severe MR (4+). Pt in CV-ICU for severe, symptomatic MR likely 2/2 ischemia with AE HFrEF with CTS consult for surgical intervention. She was treated for NSTEMI and AE CHF with clinical improvement and so deemed stable to be moved from ICU on 12/14/2024. Pt admitted to [facility] for further evaluation / management. ROS quite limited as pt perseverates on her neighbors cooking meth below her. She is intermittently redirectable. Patient moved in with her sister from [place] ~ 1 year ago. She states for the past 8 months she has not been very active. Her mother and she has had a broken leg, multiple reasons why she has not been up and moving. Her father also had heart disease requiring open heart surgery. She states chest pain /SOB much improved since admission. Denies fever, sweats, chills, cough. She is interested in seeing addiction med OP. Patient notes meth and cocaine use ~ weekly. She also endorses tobacco use with home-made products since 16 years of age. She denies alcohol use. She has a history of Hepatitis C got treated for this. Prior IVDU but > 1 year ago, no opioid use. Code status is Full Code. ROS as in HPI, otherwise 12-point review of systems negative. PAST MEDICAL HISTORY Diagnosis Date Aneurysm 2019 Cardiovascular disease 2010 Hypertension Leg fracture, left 01/2024 Thyroid disease PAST SURGICAL HISTORY Procedure Laterality Date BRAIN SURGERY HX 02/11/2022 endovascular embolization basilar tip aneurysm CAROTID ENDARTERECTOMY Left 2018 HIP SURGERY HX anders placed SHX VASCULAR SURGERY 2019 FAMILY HISTORY Problem Relation Age of Onset Hypertension Mother Hyperlipidemia Mother Heart Mother Intersitial Lung Disease Mother Thyroid Mother Hyperlipidemia Father Hypertension Father Diabetes Father Heart Attack Father Stroke Father Systemic Lupus Erythematosus Sister Cancer Paternal Grandfather stomach Leukemia Maternal Uncle Social History Tobacco Use Smoking status: Every Day Current packs/day: 0.50 Types: Cigarettes Smokeless tobacco: Never Vaping Use Vaping status: Former Substance Use Topics Alcohol use: Not Currently Comment: rarely Drug use: Yes Types: Marijuana Comment: Smokes about 4 to 5 times daily No current facility-administere d medications on file prior to encounter. Current Outpatient Medications on File Prior to Encounter Medication Sig cilostazol (PLETAL) 50 mg tablet TAKE 1 TABLET BY MOUTH TWICE A DAY amLODIPine (NORVASC) 10 mg tablet TAKE 1 TABLET BY MOUTH EVERY DAY Ibandronate (BONIVA) 150 mg tablet Take 1 tablet by mouth once every month. In AM with cup of water on empty stomach. Nothing else by mouth and stay upright for 60 min. levothyroxine (SYNTHROID) 112 mcg tablet Take 1 tablet by mouth once daily. Garlic 1,500 mg cap Take 1,500 mg by mouth. aspirin, enteric coated (ASPIRIN, ENTERIC COATED) 81 mg EC tablet Take 162 mg by mouth once daily. Objective OBJECTIVE Patient Vitals for the past 8 hrs: BP Temp Temp src Pulse Resp SpO2 12/14/24 1147 -- 36.7 ?C (98 ?F) Oral -- -- -- 12/14/24 1100 122/59 -- -- 61 12 96 % 12/14/24 1000 96/58 -- -- (!) 56 18 95 % 12/14/24 0900 130/71 -- -- 70 17 95 % 12/14/24 0815 -- -- -- 77 11 95 % 12/14/24 0800 109/73 -- -- 80 18 97 % 12/14/24 0700 102/70 -- -- 80 17 93 % Body mass index is 22.48 kg/m?., Hemoglobin A1C (%) Date Value 12/13/2024 6.2 Intake/Output Summary (Last 24 hours) at 12/14/2024 1448 Last data (more content not included)... Normal [facility] NURSING PROGon 12-14-2024 NURSING PROG HNO ID: [id number] Author: KAUSHAL CRUM RN Service: ? Author Type: Registered Nurse Type: Nursing Progress Note Filed: 12/14/2024 22:17 Note Text: Transfer Note: PATIENT NAME: Maureen Barron Patient Location: [place] [address] [address] Room: [place] [address] Patient transferred into room [facility] in stable condition. Actions taken: Report given/called to nurse. Normal [facility] T4 Free SerPl-mCncon 025 Free T4 [Mass/Vol] 1.4 ng/dL Normal 0.9-1.7 [facility] Comment on above: Order Comment: Speci men Type: BLOOD SPECIMENOrdering Facility: [facility] Address: [address] [place] [address] Performed By: #### 2 4323-8, [facility], 3024-7 ####[facility] LABORATORYCLIA [id number] [place] [address] [place] TSH W/REFLEX FT4on 5 TSH Qn 0.056 m[IU]/L Low 0.270-4.200 [facility] Comment on above: Order Comment: Speci men Type: BLOOD SPECIMENOrdering Facility: [facility] Address: [address] [place] [address] Performed By: #### 2 4323-8, [facility], 3024-7 ####[facility] LABORATORYCLIA [id number] [place] [address] [place] US CAROTID BILon 12-14-2024 US CAROTID RAMAN * * *Final Report* * * DATE OF EXAM: Dec 14 2024 10:41AM A2U 1077 - CAROTID RAMAN / PROCEDURE REASON: pre-op * * * * Physician Interpretation * * * * Non-Invasive Vascular Laboratory [facility] Carotid Duplex Bilateral/Complete Date of service/time: 12/14/2024 9:50:44 AM [facility] Name: MAUREEN BARRON Date of : 1955 Age: 69 years Gender: F Medical History Tobacco: Current Carotid artery disease: Yes History of abdominal aortic aneurysm: Yes Hypertension: Yes Clinical Indication Pre op for cardiac surgery. Status post left internal carotid endarterectomy in 2018. TECHNIQUE -------- A carotid duplex ultrasound examination was performed, including grayscale imaging and color Doppler and spectral Doppler examination of the below mentioned arteries. FINDINGS -------- RIGHT SIDE Common carotid artery: Origin: PSV: 93 cm/s. EDV: 13 cm/s. Proximal: PSV: 69 cm/s. EDV: 11 cm/s. Mid: PSV: 75 cm/s. EDV: 15 cm/s. Distal: PSV: 73 cm/s. EDV: 10 cm/s. Mild heterogeneous laminated, calcified and irregular plaque throughout. Internal carotid artery: Origin: PSV: 0 cm/s. EDV: 0 cm/s. Proximal: PSV: 0 cm/s. EDV: 0 cm/s. Mid: PSV: 0 cm/s. EDV: 0 cm/s. Distal: PSV: 64 cm/s. EDV: 0 cm/s. known occlusion homogeneous age indeterminite plaque from origin to mid. ICA/CCA Ratio: 0.0 External carotid artery: Origin: PSV: 78 cm/s. EDV: 5 cm/s. Proximal: PSV: 128 cm/s. EDV: 17 cm/s. Mid: PSV: 78 cm/s. EDV: 8 cm/s. Mild heterogeneous irregular and laminated plaque from origin to proximal. Subclavian artery: Proximal: PSV: 102 cm/s. EDV: 15 cm/s. Mild heterogeneous irregular and calcified plaque from origin to proximal. Innominate artery: PSV: 51 cm/s. EDV: 6 cm/s. Vertebral artery: Proximal: PSV: 40 cm/s. EDV: 14 cm/s. LEFT SIDE Common carotid artery: Proximal: PSV: 65 cm/s. EDV: 22 cm/s. Mid: PSV: 76 cm/s. EDV: 29 cm/s. Distal: PSV: 75 cm/s. EDV: 25 cm/s. Mild heterogeneous irregular, calcified and laminated plaque throughout. Internal carotid artery: Origin: PSV: 125 cm/s. EDV: 40 cm/s. Proximal: PSV: 83 cm/s. EDV: 35 cm/s. Mid: PSV: 88 cm/s. EDV: 29 cm/s. Distal: PSV: 128 cm/s. EDV: 56 cm/s. Mild heterogeneous irregular and calcified plaque from origin to proximal. ICA/CCA Ratio: 1.7 External carotid artery: Proximal: PSV: 99 cm/s. EDV: 12 cm/s. Mild homogeneous age indeterminate, laminated and irregular plaque from origin to mid. Subclavian artery: Proximal: PSV: 114 cm/s. EDV: 5 cm/s. Vertebral artery: Proximal: PSV: 35 cm/s. EDV: 13 cm/s. IMPRESSION Please note: the new carotid interpretation criteria are used as recommended by [employer]. Compared to prior study, No prior carotid ultrasounds. CTA Neck on 07/08/2024 reports: 1. Complete occlusion of the right internal [...] Moderate cervical spondylosis. Consider dedicated cervical MRI. RIGHT SIDE Common carotid artery: Plaque visualized without evidence of hemodynamically significant stenosis. Internal carotid artery: Total occlusion. Distal right ICA reconstiutes via a branch off the right external ICA. External carotid artery: Patent. ECA waveforms demonstrate internalization of the Doppler signal possibly due to a known right ICA occlusion. Vertebral artery: Patent and antegrade flow noted. Innominate artery: Patent. Subclavian artery: Plaque visualized without evidence of hemodynamically significant stenosis. LEFT SIDE Common carotid artery: Plaque visualized without evidence of hemodynamically significant stenosis. Internal carotid artery: <50% stenosis consistent with mild carotid artery disease. External carotid artery: Patent. Vertebral artery: Patent and antegrade flow noted. Subclavian artery: Patent. Technologist: Taya Khoury T Ordering physician: LOGAN ALVARADO Interpreting physician: Rolly Jackson MD * * * Final * * * RP Dental Specialist: WAQAS Transcribe Date/Time: Dec 14 2024 9:50A Dictated by : ROLLY JACKSON MD This examination was interpreted and the report reviewed and electronically signed by: ROLLY JACKSON MD on Dec 14 2024 1:33PM EST [id number] CN Normal [facility] US KIDNEY/BLADDERon 12-15-19 25 US KIDNEY/BLADDER * * *Final Report* * * DATE OF EXAM: Dec 14 2024 3:43PM [facility] 1055 US KIDNEY/BLADDER / PROCEDURE REASON: Kidney failure, acute * * * * Physician Interpretation * * * * EXAMINATION: RENAL ULTRASOUND CLINICAL HISTORY: Acute kidney injury TECHNIQUE: Sonography of the kidneys and urinary bladder was performed. Images were obtained and stored in a permanent archive. MQ: UR_1 COMPARISON: CT 10/19/2024 RESULT: Right Kidney: -Renal length: 8.0 cm -Parenchyma: Parenchyma echogenicity is increased. Normal parenchymal thickness. -Collecting system: No hydronephrosis. -Calculus: No echogenic, shadowing calculus. -Lesion: None. Left Kidney: -Renal length: 7.4 cm -Parenchyma: Parenchyma echogenicity is increased. Normal parenchymal thickness. -Collecting system: No hydronephrosis. -Calculus: No echogenic, shadowing calculus. -Lesion: 1.1 cm upper pole cyst Bladder: Decompressed. IMPRESSION: 1. No hydronephrosis. 2. Increased renal parenchymal echogenicity, compatible with medical renal disease. Dental Specialist: GARY Transcribe Date/Time: Dec 15 2024 9:45A Dictated by : JENNY EGAN MD This examination was interpreted and the report reviewed and electronically signed by: JENNY EGAN MD on Dec 15 2024 9:46AM EST [id number] CN Normal [facility] aPTT PPPon 12-14-2024 aPTT Coag (PPP) [Time] 45.1 s High 23.0-32.4 [facility] Comment on above: Order Comment: Speci men Type: BLOOD SPECIMENOrdering Facility: [facility] Address: [address] [place] [address] Performed By: #### 1 4979-9 ####[facility] LABORATORYCLIA [id number] [address] STATES OF [facility] aPTT Coag (PPP) [Time] 50.1 s High 23.0-32.4 [facility] Comment on above: Order Comment: Speci men Type: BLOOD SPECIMENOrdering Facility: [facility] Address: [address] [place] [address] Performed By: #### 1 4979-9 ####[facility] LABORATORYCLIA [id number] [address] STATES OF [facility] aPTT Coag (PPP) [Time] 44.4 s High 23.0-32.4 [facility] Comment on above: Order Comment: Speci men Type: BLOOD SPECIMENOrdering Facility: [facility] Address: [address] [place] [address] Performed By: #### 1 4979-9 ####[facility] LABORATORYCLIA [id number] [place] [address] [place] aPTT Coag (PPP) [Time] 41.9 s High 23.0-32.4 [facility] Comment on above: Order Comment: Speci men Type: BLOOD SPECIMENOrdering Facility: [facility] Address: [address] [place] [id number] Performed By: #### 1 4979-9 ####[facility] LABORATORYCLIA [id number] [place] [id number] [facility] Absolute lymphocyte countOrd ered By: Sukhi Forbes on 12-13-2024 Lymphocytes Auto (Unsp spec) [#/Vol] 1.39 10*3/uL 0.83-4.51 [facility] Absolute neutrophil countOrd ered By: Sukhi Forbes on 12-13-2024 Neutrophils (Bld) [#/Vol] 6.8 10*3/uL 2.0-7.7 [facility] Activated partial thrombopla stin time (aPTT) in platelet poor plasma by coagulation aOrdered By: Sukhi Forbes on 12-13-2024 aPTT Coag (PPP) [Time] 116.2 s High 24.1-36.2 [facility] Comment on above: CRITICAL VALUE SANTILLAN Kale DELGADILLO RN (ICU)12/13/24 0835 Romaine BeyRESULTS READ BACK BY SAME. Anion gap in Serum or Plasma Ordered By: Sukhi Forbes on 12-13-2024 Anion gap [Moles/Vol] 13 mmol/L 5-15 [facility] Automated lymphocyte count a s percentage of total leukocytesOrdered By: Sukhi Forbes on 12-13-2024 Lymphocytes/100 WBC Auto (Unsp spec) 15.0 % Low 19-41 [facility] BUN/creatinine ratioOrdered By: Sukhi Forbes on 12-13-2024 Urea nitrogen/Creatinine [Mass ratio] 14.0 mg/mg 10-20 [facility] Basic Metabolic Profile (BMP )on 12-13-2024 BUN/CRE 14.0 RATIO Normal - [facility] Comment on above: Performed By: #### L 100.0100, L500.2500 #### [facility] [address] [place], [address] Calcium [Mass/Vol] 8.0 mg/dL Normal 7.6-11.0 [facility] Comment on above: Performed By: #### L 100.0100, L500.2500 #### [facility] [address] [place], [address] Chloride [Moles/Vol] 100 mmol/L Normal 98-108 [facility] Comment on above: Performed By: #### L 100.0100, L500.2500 #### [facility] [address] [place], [address] CO2 [Moles/Vol] 21.8 mmol/L Normal 21.0-32.0 [facility] Comment on above: Performed By: #### L 100.0100, L500.2500 #### [facility] [address] [place], [address] Creatinine [Mass/Vol] 1.30 mg/dL High 0.70-1.20 [facility] Comment on above: Performed By: #### L 100.0100, L500.2500 #### [facility] [address] [place], [address] ECRCL 29.75 ml/min Low 50-250 [facility] Comment on above: Performed By: #### L 100.0100, L500.2500 #### [facility] [address] [place], [address] GAP 13 Normal 5-15 [facility] Comment on above: Performed By: #### L 100.0100, L500.2500 #### [facility] [address] [place], [address] GFR/1.73 sq M.predicted among non-blacks MDRD (S/P/Bld) [Vol rate/Area] 45 mL/min/{1.73_m2} Low >60 [facility] Comment on above: Result Comment: mL/m in/1.73m2 CKD-EPI Creatinine Equation (2020) Performed By: #### L 100.0100, L500.2500 #### [facility] [address] [place], [address] Glucose [Mass/Vol] 279 mg/dL High 70-99 [facility] Comment on above: Performed By: #### L 100.0100, L500.2500 #### [facility] [address] [place], [address] Potassium [Moles/Vol] 3.0 mmol/L Low 3.3-5.1 [facility] Comment on above: Result Comment: Hemo lysis present, Results??could be affected. ?? Performed By: #### L 100.0100, L500.2500 #### [facility] [address] [place], [address] Sodium [Moles/Vol] 135 mmol/L Normal 133-145 [facility] Comment on above: Performed By: #### L 100.0100, L500.2500 #### [facility] [address] [place], [address] Urea nitrogen [Mass/Vol] 18 mg/dL Normal 4-19 [facility] Comment on above: Performed By: #### L 100.0100, L500.2500 #### [facility] [address] [place], [address] Basic metabolic 2000 panelon 12-13-2024 Anion gap [Moles/Vol] 12 mmol/L Normal 8-15 [facility] Comment on above: Order Comment: Speci men Type: BLOOD SPECIMENOrdering Facility: [facility] Address: [address] [place] [address] Performed By: #### 2 4320-2, 33390-0 ####[facility]ORATORYCLIA [id number] [place] [address] [place] Calcium [Mass/Vol] 9.0 mg/dL Normal 8.5-10.2 [facility] Comment on above: Order Comment: Speci men Type: BLOOD SPECIMENOrdering Facility: [facility] Address: [address] [place] [address] Performed By: #### 2 2, 39291-5 ####[facility]ORATORYCLIA [id number] [place] [address] [place] Chloride [Moles/Vol] 101 mmol/L Normal 98-107 [facility] Comment on above: Order Comment: Speci men Type: BLOOD SPECIMENOrdering Facility: [facility] Address: [address] [place] [address] Performed By: #### 2 4320-08, 08755-5 ####[facility] LABORATORYCLIA [id number] [place] [address] [place] CO2 [Moles/Vol] 24 mmol/L Normal 22-30 [facility] Comment on above: Order Comment: Speci men Type: BLOOD SPECIMENOrdering Facility: [facility] Address: [address] [place] [address] Performed By: #### 2 4320-08, 58341-9 ####[facility]ORATORYCLIA [id number] [place] [address] [place] Creatinine [Mass/Vol] 1.48 mg/dL High 0.58-0.96 [facility] Comment on above: Order Comment: Speci men Type: BLOOD SPECIMENOrdering Facility: [facility] Address: [address] [place] [address] Performed By: #### 2 2, 18333-8 ####[facility] LABORATORYCLIA [id number] [place] [address] [place] Creatinine and Glomerular filtration rate.predicted panel (S/P/Bld) 38 mL/min/1.73m??? Low >=60 [facility] Comment on above: Order Comment: Marika hammonds Type: BLOOD SPECIMENOrdering Facility: [facility] Address: [address] [place] [address] Result Comment: Maru mated Glomerular Filtration Rate [...] reflect actual GFR. Performed By: #### 2 4321-2, 35786-5 ####[facility] LABORATORYCLIA [id number] [place] [address] [place] Glucose [Mass/Vol] 112 mg/dL High 74-99 [facility] Comment on above: Order Comment: Marika hammonds Type: BLOOD SPECIMENOrdering Facility: [facility] Address: [address] [place] [address] Result Comment: The [place] [employer] (ADA) provides guidance for cutoff [...] Standards of Medical Care in Diabetes 2016, [place] [employer]. Diabetes Care. 2016.39(Suppl 1). Performed By: #### 2 4321-2, 63529-6 ####[facility] LABORATORYCLIA [id number] [place] [address] [place] Potassium [Moles/Vol] 4.1 mmol/L Normal 3.7-5.1 [facility] Comment on above: Order Comment: Speci men Type: BLOOD SPECIMENOrdering Facility: [facility] Address: [address] [place] [address] Performed By: #### 2 4321-2, 81325-4 ####[facility] LABORATORYCLIA [id number] [place] [address] [place] Sodium [Moles/Vol] 137 mmol/L Normal 136-144 [facility] Comment on above: Order Comment: Speci men Type: BLOOD SPECIMENOrdering Facility: [facility] Address: [address] [place] [address] Performed By: #### 2 4321-2, 08811-9 ####[facility] LABORATORYCLIA [id number] [place] [id number] [place] Urea nitrogen [Mass/Vol] 21 mg/dL Normal 7-21 [facility] Comment on above: Order Comment: Speci men Type: BLOOD SPECIMENOrdering Facility: [facility] Address: [address] [place] [address] Performed By: #### 2 4321-2, 55798-9 ####[facility] LABORATORYCLIA [id number] [address] [place] Basophil percentageOrdered B y: Sukhi Forbes on 12-13-2024 Basophils/100 WBC (Bld) 0.9 % 0-1 [facility] CBC W/Diff, Automatedon 12-02 Absolute Lymph 1.39 X10 3/uL Normal 0.83-4.51 [facility] Comment on above: Performed By: #### L 100.0100, L500.2500 #### [facility] [address] [place], [address] Absolute Neut 6.8 X10 3/uL Normal 2.0-7.7 [facility] Comment on above: Performed By: #### L 100.0100, L500.2500 #### [facility] [address] [place], [address] Basophils/100 WBC (Bld) 0.9 % Normal 0-1 [facility] Comment on above: Performed By: #### L 100.0100, L500.2500 #### [facility] [address] [place], [address] Eosinophils/100 WBC (Bld) 2.9 % Normal 0-5 [facility] Comment on above: Performed By: #### L 100.0100, L500.2500 #### [facility] [address] [place], [address] Erythrocyte distribution width (RBC) [Ratio] 12.6 % Normal 11.6-14.6 [facility] Comment on above: Performed By: #### L 100.0100, L500.2500 #### [facility] [address] [place], [address] Hematocrit (Bld) [Volume fraction] 39.6 % Normal 37-47 [facility] Comment on above: Performed By: #### L 100.0100, L500.2500 #### [facility] [address] [place], [address] Hemoglobin (Bld) [Mass/Vol] 13.1 g/dL Normal 12.0-15.0 [facility] Comment on above: Performed By: #### L 100.0100, L500.2500 #### [facility] [address] [place], [address] IG% 0.500 Normal 0.0-0.9 [facility] Comment on above: Result Comment: IG% - Immature Granulocytes (promyelocytes, myelocytes and metamyelocytes) > 1% indicates that a LEFT SHIFT is Present. Performed By: #### L 100.0100, L500.2500 #### [facility] [address] [place], [address] Lymphocytes/100 WBC (Bld) 15.0 % Low 19-41 [facility] Comment on above: Performed By: #### L 100.0100, L500.2500 #### [facility] [facility] [address] [place], [address] MCH (RBC) [Entitic mass] 30.3 pg Normal 27.0-32.0 [facility] Comment on above: Performed By: #### L 100.0100, L500.2500 #### [facility] [address] [place], [address] MCHC (RBC) [Mass/Vol] 33.1 g/dL Normal 32-36 [facility] Comment on above: Performed By: #### L 100.0100, L500.2500 #### [facility] [address] [place], [address] MCV (RBC) [Entitic vol] 91.7 fL Normal 81-99 [facility] Comment on above: Performed By: #### L 100.0100, L500.2500 #### [facility] [address] [place], [address] Monocytes/100 WBC (Bld) 7.6 % Normal 0-10 [facility] Comment on above: Performed By: #### L 100.0100, L500.2500 #### [facility] [address] [place], [address] Neutrophils/100 WBC (Bld) 73.1 % High 47-70 [facility] Comment on above: Performed By: #### L 100.0100, L500.2500 #### [facility] [address] [place], [address] Nucleated RBC (Bld) [#/Vol] 0 10*3/uL Normal 0-5 [facility] Comment on above: Performed By: #### L 100.0100, L500.2500 #### [facility] [address] [place], [address] Platelet mean volume (Bld) [Entitic vol] 9.8 fL Normal 6.2-12.0 [facility] Comment on above: Performed By: #### L 100.0100, L500.2500 #### [facility] [address] [place], [address] Platelets (Bld) [#/Vol] 393 10*3/uL Normal 150-450 [facility] Comment on above: Performed By: #### L 100.0100, L500.2500 #### [facility] [address] [place], [address] RBC (Bld) [#/Vol] 4.32 10*6/uL Normal 4.2-5.4 [facility] Comment on above: Performed By: #### L 100.0100, L500.2500 #### [facility] [address] [place], [address] RDW SD 42.6 fl Normal 35.1-43.9 [facility] Comment on above: Performed By: #### L 100.0100, L500.2500 #### [facility] [address] [place], [address] WBC (Bld) [#/Vol] 9.3 10*3/uL Normal 4.4-11.0 [facility] Comment on above: Performed By: #### L 100.0100, L500.2500 #### [facility] [address] [place], [address] CBC panel Auto (Bld)on 12-13 Erythrocyte distribution width (RBC) [Ratio] 12.7 % Normal 11.5-15.0 [facility] Comment on above: Order Comment: Speci men Type: BLOOD SPECIMENOrdering Facility: [facility] Address: [address] [place] [address] Performed By: #### 5 8410-2 ####[facility] LABORATORYCLIA [id number] [place] [address] [place] Hematocrit (Bld) [Volume fraction] 41.8 % Normal 36.0-46.0 [facility] Comment on above: Order Comment: Speci men Type: BLOOD SPECIMENOrdering Facility: [facility] Address: [address] [place] [address] Performed By: #### 5 8410-2 ####[facility] LABORATORYCLIA [id number] [address] STATES OF [facility] Hemoglobin (Bld) [Mass/Vol] 13.8 g/dL Normal 11.5-15.5 [facility] Comment on above: Order Comment: Speci men Type: BLOOD SPECIMENOrdering Facility: [facility] Address: [address] [place] [address] Performed By: #### 5 8410-2 ####[facility] LABORATORYCLIA [id number] [address] [place] MCH (RBC) [Entitic mass] 30.5 pg Normal 26.0-34.0 [facility] Comment on above: Order Comment: Speci men Type: BLOOD SPECIMENOrdering Facility: [facility] Address: [address] [place] [address] Performed By: #### 5 8410-2 ####[facility] LABORATORYCLIA [id number] [address] [place] MCHC (RBC) [Mass/Vol] 33.0 g/dL Normal 30.5-36.0 [facility] Comment on above: Order Comment: Speci men Type: BLOOD SPECIMENOrdering Facility: [facility] Address: [address] [place] [address] Performed By: #### 5 8410-2 ####[facility] LABORATORYCLIA [id number] [address] OF [place] MCV (RBC) [Entitic vol] 92.5 fL Normal 80.0-100.0 [facility] Comment on above: Order Comment: Speci men Type: BLOOD SPECIMENOrdering Facility: [facility] Address: [address] [place] [address] Performed By: #### 5 8410-2 ####[facility] LABORATORYCLIA [id number] [address] [place] Nucleated RBC (Bld) [#/Vol] 10*3/uL Normal <0.01 [facility] Comment on above: Order Comment: Speci men Type: BLOOD SPECIMENOrdering Facility: [facility] Address: [address] [place] [address] Performed By: #### 5 8410-2 ####[facility] LABORATORYCLIA [id number] [address] [place] Platelet mean volume (Bld) [Entitic vol] 9.8 fL Normal 9.0-12.7 [facility] Comment on above: Order Comment: Speci men Type: BLOOD SPECIMENOrdering Facility: [facility] Address: [address] [place] [address] Performed By: #### 5 8410-2 ####[facility] LABORATORYCLIA [id number] [address] [place] Platelets (Bld) [#/Vol] 435 10*3/uL High 150-400 [facility] Comment on above: Order Comment: Speci men Type: BLOOD SPECIMENOrdering Facility: [facility] Address: [address] [place] [address] Performed By: #### 5 8410-2 ####[facility] LABORATORYCLIA [id number] [address] [place] RBC (Bld) [#/Vol] 4.52 10*6/uL Normal 3.90-5.20 [facility] Comment on above: Order Comment: Speci men Type: BLOOD SPECIMENOrdering Facility: [facility] Address: [address] [place] [address] Performed By: #### 5 8410-2 ####[facility] LABORATORYCLIA [id number] [address] [place] WBC (Bld) [#/Vol] 10.29 10*3/uL Normal 3.70-11.00 [facility] Comment on above: Order Comment: Speci men Type: BLOOD SPECIMENOrdering Facility: [facility] Address: [address] [place] [address] Performed By: #### 5 8410-2 ####[facility] LABORATORYCLIA [id number] [address] [facility] Erythrocyte distribution width (RBC) [Ratio] 12.6 % Normal 11.5-15.0 [facility] Comment on above: Order Comment: Speci men Type: BLOOD SPECIMENOrdering Facility: [facility] Address: [address] [place] [address] Performed By: #### 5 8410-2 ####[facility] LABORATORYCLIA [id number] [address] Hematocrit (Bld) [Volume fraction] 44.8 % Normal 36.0-46.0 [facility] Comment on above: Order Comment: Speci men Type: BLOOD SPECIMENOrdering Facility: [facility] Address: [address] [place] [address] Performed By: #### 5 8410-2 ####[facility] LABORATORYCLIA [id number] [address] Hemoglobin (Bld) [Mass/Vol] 14.6 g/dL Normal 11.5-15.5 [facility] Comment on above: Order Comment: Speci men Type: BLOOD SPECIMENOrdering Facility: [facility] Address: [address] [place] [address] Performed By: #### 5 8410-2 ####[facility] LABORATORYCLIA [id number] [address] [place] MCH (RBC) [Entitic mass] 30.3 pg Normal 26.0-34.0 [facility] Comment on above: Order Comment: Speci men Type: BLOOD SPECIMENOrdering Facility: [facility] Address: [address] [place] [address] Performed By: #### 5 8410-2 ####[facility] LABORATORYCLIA [id number] [address] OF [facility] MCHC (RBC) [Mass/Vol] 32.6 g/dL Normal 30.5-36.0 [facility] Comment on above: Order Comment: Speci men Type: BLOOD SPECIMENOrdering Facility: [facility] Address: [address] [place] [address] Performed By: #### 5 8410-2 ####[facility] LABORATORYCLIA [id number] [address] [place] MCV (RBC) [Entitic vol] 92.9 fL Normal 80.0-100.0 [facility] Comment on above: Order Comment: Speci men Type: BLOOD SPECIMENOrdering Facility: [facility] Address: [address] [place] [address] Performed By: #### 5 8410-2 ####[facility] LABORATORYCLIA [id number] [address] OF [facility] Nucleated RBC (Bld) [#/Vol] 10*3/uL Normal <0.01 [facility] Comment on above: Order Comment: Speci men Type: BLOOD SPECIMENOrdering Facility: [facility] Address: [address] [place] [address] Performed By: #### 5 8410-2 ####[facility] LABORATORYCLIA [id number] [address] [place] Platelet mean volume (Bld) [Entitic vol] 10.3 fL Normal 9.0-12.7 [facility] Comment on above: Order Comment: Speci men Type: BLOOD SPECIMENOrdering Facility: [facility] Address: [address] [place] [address] Performed By: #### 5 8410-2 ####[facility] LABORATORYCLIA [id number] [address] [place] Platelets (Bld) [#/Vol] 442 10*3/uL High 150-400 [facility] Comment on above: Order Comment: Speci men Type: BLOOD SPECIMENOrdering Facility: [facility] Address: [address] [place] [address] Performed By: #### 5 8410-2 ####[facility] LABORATORYCLIA [id number] [address] OF [facility] RBC (Bld) [#/Vol] 4.82 10*6/uL Normal 3.90-5.20 [facility] Comment on above: Order Comment: Speci men Type: BLOOD SPECIMENOrdering Facility: [facility] Address: [address] [place] [address] Performed By: #### 5 8410-2 ####[facility] LABORATORYCLIA [id number] [address] [place] WBC (Bld) [#/Vol] 10.19 10*3/uL Normal 3.70-11.00 [facility] Comment on above: Order Comment: Speci men Type: BLOOD SPECIMENOrdering Facility: [facility] Address: [address] [place] [address] Performed By: #### 5 8410-2 ####[facility] LABORATORYCLIA [id number] [address] CONFIRM BLOOD TYPEon 025 ABO O Normal [facility] Comment on above: Order Comment: Speci men Type: BLOOD SPECIMENOrdering Facility: [facility] Address: [address] [place] [address] Performed By: #### C ONABO ####[facility] BLOOD BANKCLIA [id number] [address] Rh Nom (Bld) Positive Normal [facility] Comment on above: Order Comment: Speci men Type: BLOOD SPECIMENOrdering Facility: [facility] Address: [address] [place] [address] Performed By: #### C ONABO ####[facility] BLOOD BANKCLIA [id number] [address] CONSULTon 12-13-2024 CONSULT HNO ID: [id number] Author: BELINDA AVALOS PA-C Service: Cardiovascular Surgery Author Type: Physician Underground Mine Superintendent Type: Consults Filed: 12/13/2024 17:39 Note Text: Attestation signed by Karen Bradshaw MD at 12/14/2024 4:40 PM [facility] STAFF PHYSICIAN NOTE OF PERSONAL INVOLVEMENT IN CARE IMPRESSION: Patient is a 69 year old female with recent NSTEMI, severe MR, severe aortoiliac disease, and current meth and cocaine use. STS PROM for MVR/CABG is 20%. Procedure Type: CABG + MVR Perioperative Outcome Estimate % Operative Mortality 19.9% Morbidity AND Mortality 40.5% Stroke 13% Renal Failure 15.7% Reoperation 6.99% Prolonged Ventilation 28.9% Deep Sternal Wound Infection 0.329% Long Hospital Stay (>14 days) 21.5% Short Hospital Stay (<6 days)* 7.28% Clinical Summary Planned Surgery: CABG + MVR, First cardiovascular surgery Demographics: 69 year old, female, 52.2kg, 152.4cm, BMI: 22.5 kg/m? Lab Values: Creatinine: 1.4 mg/dL, Hematocrit: 43.1%, WBC Count: 9.39 10?/?L, Platelet Count: 471835 cells/?L Substance Abuse: Current smoker, Illicit Drug Use Risk Factors / Comorbidities: Hypertension Pulmonary RF: Mild CLD Vascular RF: Cerebrovascular Disease: Other CVD, Peripheral Artery Disease, Prior Carotid Surgery, RT Carotid Sten. >= 80% Cardiac Status: Acute and chronic heart failure, Ejection Fraction = 45% Coronary Artery Disease: 2 vessels diseased, Non-ST Elevation IL, IL: 8 to 21 Days Valve Disease: Severe MR PLAN: Recommend transfer to [facility] for evaluation for high risk surgery vs MitraClip +/- PCI vs medical therapy in this medically complex patient. I have reviewed the documentation obtained and documented by the Physician Underground Mine Superintendent and I have personally performed the substantive portion of the visit which includes the medical decision making. I have discussed the case and management of the patient's care. (Inpatient): I personally spent 75 total minutes total time in the management and care of this patient. STAFF PHYSICIAN: Karen Bradshaw MD DATE OF SERVICE: December 14, 2024 TIME OF SERVICE: 4:38 PM CARDIOTHORACIC SURGERY POSTOP PROGRESS NOTE CARDIOTHORACIC SURGERY CONSULT / HANDP SERVICE DATE: 12/13/2024 SERVICE TIME: 1646 Subjective PRIMARY SERVICE: Cardiothoracic Surgery CHIEF COMPLAINT: NSTEMI, MR HPI: This is a 69 year old female who presents with severe mitral regurgitation and NSTEMI. Past medical history includes HTN, ICA occlusion (s/p endarterectomy), cerebral aneurysm (s/p repair in 2019), PAD, nicotine use disorder, HLD, and hypothyroidism. She was transferred to [facility] from [place], where she presented with shortness of breath. She notes this was accompanied by chest pain, which felt like an elephant sitting on [my] chest. Initially on BiPAP, which she has been weaned off of. She is now saturating well on 2L O2 via NC. Patient was found to have NSTEMI (HS Trop >1900 per documents sent from [place]). She was started on a Hep gtt. LHC done which showed MV CAD (outside cath available for review in chart). Patient also found to be in heart failure, ECHO obtained showed LVEF ~45% and severe MR (4+). She was transferred to CVICU, CTS consulted for evaluation. Of note, ECHO available for review from July 2024 showed EF 60% and only trace MR. Patient moved in with her sister from [place] ~ 1 year ago. She states for the past 8 months she has not been very active. Her mother and she has had a broken leg, multiple reasons why she has not been up and moving. She is able to get out of bed and go to the restroom/ do small tasks independently per patient. She said this onset of shortness of breath started two days ago, but she states it has likely been going on much longer. Her father also had heart disease. Patient notes meth and cocaine use ~ weekly. She also endorses tobacco use with home-made products. She denies alcohol use. She has a history of Hepatitis C. She denies any prior chest surgery/ radiation, no history of IL or PCI, denies known kidney or lung disease, no history of vein stripping, and denies cancer history. No known TIA/CVA history, but known carotid disease bilaterally s/p CEA of the left. She has claudication and was set to follow up with vascular surgery at some time. PAST MEDICAL HISTORY Diagnosis Date Aneurysm 2019 Cardiovascular disease 2009 Hypertension Leg fracture, left 01/2024 Thyroid disease PAST SURGICAL HISTORY Procedure Laterality Date BRAIN SURGERY HX aneurysm CAROTID - INTERNAL Bilateral HIP SURGERY HX anders placed SHX VASCULAR SURGERY 2019 FAMILY HISTORY Problem Relation Age of Onset Hypertension Mother Hyperlipidemia Mother Heart Mother Intersitial Lung Disease Mother Thyroid Mother Hyperlipidemia (more content not included)... Normal [facility] Carbon dioxide, total [Moles /volume] in Central venous bloodOrdered By: Sukhi Forbes on 12-13-2024 CO2 [Moles/Vol] 21.8 mmol/L 21.0-32.0 [facility] Chloride assayOrdered By: Art Forbes on 12-13-2024 Chloride [Moles/Vol] 100 mmol/L 98-108 [facility] Comprehensive metabolic 2000 panelon 12-13-2024 Albumin [Mass/Vol] 3.1 g/dL Low 3.9-4.9 [facility] Comment on above: Order Comment: Marika hammonds Type: BLOOD SPECIMENOrdering Facility: [facility] Address: [address] [place] [address] Performed By: #### 3 3762-6, 26081-9, , ####[facility] LABORATORYCLIA [id number] [place] [address] [place] ALP [Catalytic activity/Vol] 81 U/L Normal 34-123 [facility] Comment on above: Order Comment: Marika hammonds Type: BLOOD SPECIMENOrdering Facility: [facility] Address: [address] [place] [address] Performed By: #### 3 3762-6, 83815-1, , ####[facility] LABORATORYCLIA [id number] [place] [address] [place] ALT With P-5'-P [Catalytic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 above: Hemolysis present, R esults could be affected. RBC Auto (Bld) [#/Vol]Ordere d By: Sukhi Forbes on 12-13-2024 RBC (Bld) [#/Vol] 4.32 10*6/uL 4.2-5.4 [facility] STAPHYLOCOCCUS AUREUS AND MR SA SCREEN, PCR, NASALon 12-13-2024 S. aureus and MRSA panel CELIA+probe (Nose) Not detected Normal Not Detected [facility] Comment on above: Order Comment: Speci men Type: SWAB [facility] Address: [address] [place] [address] Performed By: #### S APCR #### [facility] CLIA [id number] [address] [place] [address] [place] Serum creatinine measurement (mass/volume)Ordered By: Sukhi Forbes on 12-13-2024 Creatinine [Mass/Vol] 1.30 mg/dL High 0.70-1.20 [facility] Serum glucose measurement (m ass/volume)Ordered By: Sukhi Forbes on 12-13-2024 Glucose [Mass/Vol] 279 mg/dL High 70-99 [facility] Serum or plasma calcium katerin urement (mass/volume)Ordered By: Sukhi Forbes on 12-13-2024 Calcium [Mass/Vol] 8.0 mg/dL 7.6-11.0 [facility] Serum or plasma urea nitroge n measurement (mass/volume)Ordered By: Sukhi Forbes on 12-13-2024 Urea nitrogen [Mass/Vol] 18 mg/dL 4-19 [facility] Sodium ?Tm Ur-sCncon 025 Sodium Unsp time (U) [Moles/Vol] 38 mmol/L Normal 14-216 [facility] Comment on above: Order Comment: Speci men Type: URINE SPECIMENOrdering Facility: [facility] Address: [address] [place] [address] Performed By: #### U TOX2, 55301-9, 10337-7, UUNR ####[facility] LABORATORYCLIA [id number] [place] [address] [place] Sodium levelOrdered By: Sukhi Forbes on 12-13-2024 Sodium [Moles/Vol] 135 mmol/L 133-145 [facility] TOXICOLOGY SCREEN, ROUTINE U RINEon 12-13-2024 Amphetamines Confirm (U) [Mass/Vol] Negative Normal Negative [facility] Comment on above: Order Comment: Speci men Type: URINE SPECIMENOrdering Facility: [facility] Address: [address] [place] [address] Result Comment: Cuto ff threshold at 1000 ng/mL. Performed By: #### U TOX2, 22314-5, 70997-2, UUNR ####[facility] LABORATORYCLIA [id number] [place] [address] [place] BARBITURATES, URINE Negative Normal Negative [facility] Comment on above: Order Comment: Speci men Type: URINE SPECIMENOrdering Facility: [facility] Address: [address] [place] [address] Result Comment: Cuto ff threshold at 200 ng/mL. Performed By: #### U TOX2, 01029-8, 88101-3, UUNR ####[facility] LABORATORYCLIA [id number] [place] [id number] [place] BENZODIAZEPINES, UR Positive Abnormal Negative [facility] Comment on above: Order Comment: Speci men Type: URINE SPECIMENOrdering Facility: [facility] Address: [address] [place] [address] Result Comment: Cuto ff threshold at 200 ng/mL. Performed By: #### U TOX2, 04215-2, 37507-2, UUNR ####[facility]ORATORYCLIA [id number] [place] [address] [place] Cannabinoids Screen Ql (U) Positive Abnormal Negative [facility] Comment on above: Order Comment: Speci men Type: URINE SPECIMENOrdering Facility: [facility] Address: [address] [place] [address] Result Comment: Cuto ff threshold at 50 ng/mL. Performed By: #### U TOX2, 81169-0, 79061-9, UUNR ####[facility] LABORATORYCLIA [id number] [place] [address] [place] Cocaine Ql (U) Negative Normal Negative [facility] Comment on above: Order Comment: Speci men Type: URINE SPECIMENOrdering Facility: [facility] Address: [address] [place] [address] Result Comment: Cuto ff threshold at 300 ng/mL. Performed By: #### U TOX2, 37203-7, 40238-7, UUNR ####[facility]ORATORYCLIA [id number] [place] [id number] [place] Ethanol (U) [Mass/Vol] <11 Normal <11 [facility] Comment on above: Order Comment: Speci men Type: URINE SPECIMENOrdering Facility: [facility] Address: [address] [place] [address] Performed By: #### U TOX2, 38021-2, 69511-5, UUNR ####[facility]ORATORYCLIA [id number] [address] Opiates Screen Ql (U) Negative Normal Negative [facility] Comment on above: Order Comment: Speci men Type: URINE SPECIMENOrdering Facility: [facility] Address: [address] [place] [address] Result Comment: Cuto ff threshold at 300 ng/mL. Performed By: #### U TOX2, 20642-7, 34218-5, UUNR ####[facility] LABORATORYCLIA [id number] [address] oxyCODONE cutoff Screen (U) [Mass/Vol] Negative Normal Negative [facility] Comment on above: Order Comment: Speci men Type: URINE SPECIMENOrdering Facility: [facility] Address: [address] [place] [address] Result Comment: Cuto ff threshold at 100 ng/mL. Performed By: #### U TOX2, 88555-0, 93150-9, UUNR ####[facility] LABORATORYCLIA [id number] [address] Phencyclidine Ql (U) Negative Normal Negative [facility] Comment on above: Order Comment: Speci men Type: URINE SPECIMENOrdering Facility: [facility] Address: [address] [place] [address] Result Comment: Cuto ff threshold at 25 ng/mL. Performed By: #### U TOX2, 38135-8, 62310-2, UUNR ####[facility] LABORATORYCLIA [id number] [address] [place] TYPE + SCREENon 12-13-2024 ABO O Normal [facility] Comment on above: Order Comment: Speci men Type: BLOOD SPECIMENOrdering Facility: [facility] Address: [address] [place] [address] Performed By: #### T SCR ####[facility] BLOOD BANKCLIA [id number] [address] [place] Rh Nom (Bld) Positive Normal [facility] Comment on above: Order Comment: Speci men Type: BLOOD SPECIMENOrdering Facility: [facility] Address: [address] [place] [address] Performed By: #### T SCR ####[facility] BLOOD BANKCLIA [id number] [place] [id number] [facility] TYPE AND SCREEN EXPIRATION 12/16/2024 23:59 Normal [facility] Comment on above: Order Comment: Speci men Type: BLOOD SPECIMENOrdering Facility: [facility] Address: [address] [place] [address] Performed By: #### T SCR ####[facility] BLOOD BANKCLIA [id number] [address] UREA NITROGEN, RANDOM URINEo n 12-13-2024 UREA NITROGEN,UR,RAN 510 mg/dL Normal 140-1500 [facility] Comment on above: Order Comment: Speci men Type: URINE SPECIMENOrdering Facility: [facility] Address: [address] [place] [address] Performed By: #### U TOX2, 46101-6, 42985-7, UUNR ####[facility] LABORATORYCLIA [id number] [address] Urinalysis complete panel (U )on 12-13-2024 Bilirubin Ql (U) Negative Normal Negative [facility] Comment on above: Order Comment: Speci men Type: URINE SPECIMENOrdering Facility: [facility] Address: [address] [place] [address] Performed By: #### 2 4356-8 ####[facility] LABORATORYCLIA [id number] [address] Clarity (Unsp spec) Clear Normal Clear [facility] Comment on above: Order Comment: Speci men Type: URINE SPECIMENOrdering Facility: [facility] Address: [address] [place] [address] Performed By: #### 2 4356-8 ####[facility] LABORATORYCLIA [id number] [address] Color (U) Light Yellow Normal yellow [facility] Comment on above: Order Comment: Speci men Type: URINE SPECIMENOrdering Facility: [facility] Address: [address] [place] [address] Performed By: #### 2 4356-8 ####[facility] LABORATORYCLIA [id number] [address] [place] Glucose Test strip (U) [Mass/Vol] 4+ Abnormal Trace, Negative [facility] Comment on above: Order Comment: Speci men Type: URINE SPECIMENOrdering Facility: [facility] Address: [address] [place] [address] Performed By: #### 2 4356-8 ####[facility] LABORATORYCLIA [id number] [address] Hemoglobin Ql (U) Negative Normal Negative, Trace [facility] Comment on above: Order Comment: Speci men Type: URINE SPECIMENOrdering Facility: [facility] Address: [address] [place] [address] Performed By: #### 2 4356-8 ####[facility] LABORATORYCLIA [id number] [address] [facility] Ketones Ql (U) Negative Normal Negative, Trace [facility] Comment on above: Order Comment: Speci men Type: URINE SPECIMENOrdering Facility: [facility] Address: [address] [place] [address] Performed By: #### 2 4356-8 ####[facility] LABORATORYCLIA [id number] [address] [place] Leukocyte esterase Test strip Ql (U) Negative Normal Negative, 25 Farrah/uL [facility] Comment on above: Order Comment: Speci men Type: URINE SPECIMENOrdering Facility: [facility] Address: [address] [place] [address] Performed By: #### 2 4356-8 ####[facility] LABORATORYCLIA [id number] [place] [address] [place] Nitrite Ql (U) Negative Normal Negative [facility] Comment on above: Order Comment: Speci men Type: URINE SPECIMENOrdering Facility: [facility] Address: [address] [place] [address] Performed By: #### 2 4356-8 ####[facility] LABORATORYCLIA [id number] [address] [place] pH (U) 7.0 [pH] Normal 5.0-8.0 [facility] Comment on above: Order Comment: Speci men Type: URINE SPECIMENOrdering Facility: [facility] Address: [address] [place] [address] Performed By: #### 2 4356-8 ####[facility] LABORATORYCLIA [id number] [place] [address] [place] Protein (U) [Mass/Vol] Negative Normal Trace , Negative [facility] Comment on above: Order Comment: Speci men Type: URINE SPECIMENOrdering Facility: [facility] Address: [address] [place] [address] Performed By: #### 2 4356-8 ####[facility] LABORATORYCLIA [id number] [place] [address] [facility] RBC LM.HPF (Urine sed) [#/Area] 0-3 /HPF Normal 0-3 /HPF [facility] Comment on above: Order Comment: Speci men Type: URINE SPECIMENOrdering Facility: [facility] Address: [address] [place] [address] Performed By: #### 2 4356-8 ####[facility] LABORATORYCLIA [id number] [address] [place] Specific gravity (U) [Rel density] 1.021 Normal 1.005-1.030 [facility] Comment on above: Order Comment: Speci men Type: URINE SPECIMENOrdering Facility: [facility] Address: [address] [place] [address] Performed By: #### 2 4356-8 ####[facility] LABORATORYCLIA [id number] [address] [place] Urobilinogen Ql (U) Normal Normal Normal [facility] Comment on above: Order Comment: Speci men Type: URINE SPECIMENOrdering Facility: [facility] Address: [address] [place] [address] Performed By: #### 2 4356-8 ####[facility] LABORATORYCLIA [id number] [place] [address] [place] WBC LM.HPF (Urine sed) [#/Area] 0-5 /HPF Normal 0-5 /HPF [facility] Comment on above: Order Comment: Speci men Type: URINE SPECIMENOrdering Facility: [facility] Address: [address] [place] [address] Performed By: #### 2 4356-8 ####[facility] LABORATORYCLIA [id number] [address] [facility] White blood cell (WBC) count Ordered By: Sukhi Forbes on 12-13-2024 WBC (Bld) [#/Vol] 9.3 10*3/uL 4.4-11.0 [facility] aPTT PPPon 12-13-2024 aPTT Coag (PPP) [Time] 29.3 s Normal 23.0-32.4 [facility] Comment on above: Order Comment: Speci men Type: BLOOD SPECIMENOrdering Facility: [facility] Address: [address] [place] [address] Performed By: #### 3 4528-0, 52219-3 ####[facility] LABORATORYCLIA [id number] [place] [address] [place] aPTT Coag (PPP) [Time] 28.8 s Normal 23.0-32.4 [facility] Comment on above: Order Comment: Speci men Type: BLOOD SPECIMENOrdering Facility: [facility] Address: [address] [place] [address] Performed By: #### 1 4979-9, 94663-5 ####[facility] LABORATORYCLIA [id number] [address] [place] Basic Metabolic Profile (BMP )on 12-12-2024 BUN/CRE 15.9 RATIO Normal 10-20 [facility] Comment on above: Performed By: #### L 100.0100, L500.2500 #### [facility] [address] [place], [address] Calcium [Mass/Vol] 8.9 mg/dL Normal 7.6-11.0 [facility] Comment on above: Performed By: #### L 100.0100, L500.2500 #### [facility] [address] [place], [address] Chloride [Moles/Vol] 102 mmol/L Normal 98-108 [facility] Comment on above: Performed By: #### L 100.0100, L500.2500 #### [facility] [address] [place], [address] CO2 [Moles/Vol] 22.6 mmol/L Normal 21.0-32.0 [facility] Comment on above: Performed By: #### L 100.0100, L500.2500 #### [facility] [address] [place], [address] Creatinine [Mass/Vol] 1.33 mg/dL High 0.70-1.20 [facility] Comment on above: Performed By: #### L 100.0100, L500.2500 #### [facility] [address] [place], [address] ECRCL 29.08 ml/min Low 50-250 [facility] Comment on above: Performed By: #### L 100.0100, L500.2500 #### [facility] [address] [place], [address] GAP 13 Normal 5-15 [facility] Comment on above: Performed By: #### L 100.0100, L500.2500 #### [facility] [address] [place], [address] GFR/1.73 sq M.predicted among non-blacks MDRD (S/P/Bld) [Vol rate/Area] 44 mL/min/{1.73_m2} Low >60 [facility] Comment on above: Result Comment: mL/m in/1.73m2 CKD-EPI Creatinine Equation (2020) Performed By: #### L 100.0100, L500.2500 #### [facility] [address] [place], [address] Glucose [Mass/Vol] 130 mg/dL High 70-99 [facility] Comment on above: Performed By: #### L 100.0100, L500.2500 #### [facility] [address] [place], [address] Potassium [Moles/Vol] 4.0 mmol/L Normal 3.3-5.1 [facility] Comment on above: Result Comment: Hemo lysis present, Results??could be affected. ?? Performed By: #### L 100.0100, L500.2500 #### [facility] [address] [place], [address] Sodium [Moles/Vol] 138 mmol/L Normal 133-145 [facility] Comment on above: Performed By: #### L 100.0100, L500.2500 #### [facility] [address] [place], [address] Urea nitrogen [Mass/Vol] 21 mg/dL High 4-19 [facility] Comment on above: Performed By: #### L 100.0100, L500.2500 #### [facility] [address] [place], [address] Electrocardiogram reportOrde red By: Jean Paul Holt on 12-12-2024 EKG study [facility] [address] [place] [address] 12 Lead EKG 12/11/24 1614 MR#: [id number] Acct: [id number] Name: MAUREEN ANSARI Rep #:[id number] : 1955 69 From: Jean Paul gee MD Attending Dr: Dr. Sukhi Forbes DO Status: ADM IN Ordering Dr: Jean Paul Holt MD Date: 12/11/24 Location: ICU Sex: F C Admitted: 12/11/24 Test Reason : Blood Pressure : */* mmHG Vent. Rate : 78 BPM Atrial Rate : 78 BPM P-R Int : 112 ms QRS Dur : 92 ms QT Int : 428 ms P-R-T Axes : 80 13 16 degrees QTcB Int : 487 ms Normal sinus rhythm Possible Inferior infarct , age undetermined Abnormal ECG Confirmed by Jean Paul Holt ([id number]), film editor supervisor PARISA ENAMORADO ([id number]) on 12/12/2024 10:42:14 AM Referred By: Confirmed By: Jean Paul Holt 12/12/24 1042 Date _ Jean Paul Holt MD CC: Dr. Sukhi Forbes DO; Dr. Marianela Edwards DO; Dr. Jean Paul Holt MD ~ Signed [facility] Work Phone: International normalized rat io (INR) calculationOrdered By: Virginie Galarza on 12-12-2024 INR Coag (Bld) [Relative time] 1.1 {INR} [facility] Partial Thromboplast Timeon 12-12-2024 aPTT Coag (Bld) [Time] 28.6 s Normal 24.1-36.2 [facility] Comment on above: Performed By: #### L 100.0100, L500.2500 #### [facility] [address] [place], [place], [id number] Prothrombin Time w/INRon INR Coag (PPP) [Relative time] 1.1 {INR} Normal [facility] Comment on above: Performed By: #### L 100.0100, L500.2500 #### [facility] [address] [place], [address] PT Coag (PPP) [Time] 14.1 s Normal 11.7-14.9 [facility] Comment on above: Performed By: #### L 100.0100, L500.2500 #### [facility] [address] [place], [id number] Prothrombin timeOrdered By: Virginie Galarza on 12-12-2024 PT Coag (PPP) [Time] 14.1 s 11.7-14.9 [facility] 12 Lead EKGon 12-11-2024 12 Lead EKG [facility] [address] [place] [address] 12 Lead EKG 12/11/24 1614 MR#: [id number] Acct: [id number] Name: MAUREEN ANSARI Rep #: [id number] : 1955 69 From: Jean Paul Holt MD Attending Dr: Dr. Sukhi Forbes DO Status: ADM IN Ordering Dr: Jean Paul Holt MD Date: 12/11/24 Location: ICU Sex: F C Admitted: 12/11/24 Test Reason : Blood Pressure : */* mmHG Vent. Rate : 78 BPM Atrial Rate : 78 BPM P-R Int : 112 ms QRS Dur : 92 ms QT Int : 428 ms P-R-T Axes : 80 13 16 degrees QTcB Int : 487 ms Normal sinus rhythm Possible Inferior infarct , age undetermined Abnormal ECG Confirmed by Jean Paul Holt ([id number]), film editor supervisor PARISA ENAMORADO ([id number]) on 12/12/2024 10:42:14 AM Referred By: Confirmed By: eJan Paul Holt 12/12/24 1042 Date Jean Paul Holt MD CC: Dr. Sukhi Forbes DO; Dr. Marianela Edwards DO; Dr. Jean Paul Holt MD Signed Normal [facility] 12 Lead EKG [facility] [address] [place] [address] 12 Lead EKG 12/11/24 0550 MR#: [id number] Acct: [id number] Name: MAUREEN ANSARI Rep #: [id number] : 1955 69 From: Jean Paul Holt MD Attending Dr: Dr. Sukhi Forbes DO Status: ADM IN Ordering Dr: Isaac Araujo DO Date: 12/11/24 Location: ICU Sex: F C Admitted: 12/11/24 Test Reason : tachycardia Blood Pressure : */* mmHG Vent. Rate : 144 BPM Atrial Rate : * BPM P-R Int : * ms QRS Dur : 90 ms QT Int : 298 ms P-R-T Axes : * 8 80 degrees QTcB Int : 461 ms Critical Test Result: High HR NSR WITH PAT PAROXYSMAL ATRIAL TACHYCARDIA Inferior infarct , age undetermined Abnormal ECG When compared with ECG of 11-Dec-2024 00:21, MANUAL COMPARISON REQUIRED DATA IS UNCONFIRMED Confirmed by Jean Paul Holt ([id number]), film editor supervisor PARISA ENAMORADO ([id number]) on 12/11/2024 11:10:42 AM Referred By: Confirmed By: Jean Paul Holt 12/11/24 1110 Date Jean Paul Holt MD CC: Dr. Sukhi Forbes DO; Dr. Marianela Edwards DO; Dr. Isaac Araujo DO Signed Normal [facility] Basic Metabolic Profile (BMP )on 12-11-2024 BUN/CRE 10.7 RATIO Normal 04-22 [facility] Comment on above: Performed By: #### L 501.9520, L100.0100, L501.5200, L500.2500 #### [facility] [address] [place], [place], [id number] Calcium [Mass/Vol] 9.0 mg/dL Normal 7.6-11.0 [facility] Comment on above: Performed By: #### L 501.9520, L100.0100, L501.5200, L500.2500 #### [facility] [address] [place], [address] Chloride [Moles/Vol] 104 mmol/L Normal 98-108 [facility] Comment on above: Performed By: #### L 501.9520, L100.0100, L501.5200, L500.2500 #### [facility] [address] [place], [address] CO2 [Moles/Vol] 21.2 mmol/L Normal 21.0-32.0 [facility] Comment on above: Performed By: #### L 501.9520, L100.0100, L501.5200, L500.2500 #### [facility] [address] [place], [address] Creatinine [Mass/Vol] 1.08 mg/dL Normal 0.70-1.20 [facility] Comment on above: Performed By: #### L 501.9520, L100.0100, L501.5200, L500.2500 #### [facility] [address] [place], [address] ECRCL 35.81 ml/min Low 50-250 [facility] Comment on above: Performed By: #### L 501.9520, L100.0100, L501.5200, L500.2500 #### [facility] [address] [place], [address] GAP 12 Normal 5-15 [facility] Comment on above: Performed By: #### L 501.9520, L100.0100, L501.5200, L500.2500 #### [facility] [address] [place], [address] GFR/1.73 sq M.predicted among non-blacks MDRD (S/P/Bld) [Vol rate/Area] 56 mL/min/{1.73_m2} Low >60 [facility] Comment on above: Result Comment: mL/m in/1.73m2 CKD-EPI Creatinine Equation (2020) Performed By: #### L 501.9520, L100.0100, L501.5200, L500.2500 #### [facility] [address] [place], [address] Glucose [Mass/Vol] 137 mg/dL High 70-99 [facility] Comment on above: Performed By: #### L 501.9520, L100.0100, L501.5200, L500.2500 #### [facility] [address] [place], [address] Potassium [Moles/Vol] 4.0 mmol/L Normal 3.3-5.1 [facility] Comment on above: Performed By: #### L 501.9520, L100.0100, L501.5200, L500.2500 #### [facility] [address] [place], [address] Sodium [Moles/Vol] 137 mmol/L Normal 133-145 [facility] Comment on above: Performed By: #### L 501.9520, L100.0100, L501.5200, L500.2500 #### [facility] [address] [place], [address] Urea nitrogen [Mass/Vol] 12 mg/dL Normal 4-19 [facility] Comment on above: Performed By: #### L 501.9520, L100.0100, L501.5200, L500.2500 #### [facility] [address] [place], [address] BUN/CRE 11.8 RATIO Normal 10-20 [facility] Comment on above: Performed By: #### L 503.7505, L100.0100, L500.2500, L501.4021 ####[facility] [address] [place], [address] Calcium [Mass/Vol] 8.9 mg/dL Normal 7.6-11.0 [facility] Comment on above: Performed By: #### L 503.7505, L100.0100, L500.2500, L501.4021 ####[facility] [address] [place], [address] Chloride [Moles/Vol] 106 mmol/L Normal 98-108 [facility] Comment on above: Performed By: #### L 503.7505, L100.0100, L500.2500, L501.4021 ####[facility] [address] [place], [address] CO2 [Moles/Vol] 18.3 mmol/L Low 21.0-32.0 [facility] Comment on above: Performed By: #### L 503.7505, L100.0100, L500.2500, L501.4021 ####[facility] [address] [place], [address] Creatinine [Mass/Vol] 1.08 mg/dL Normal 0.70-1.20 [facility] Comment on above: Performed By: #### L 503.7505, L100.0100, L500.2500, L501.4021 ####[facility] [address] [place], [address] ECRCL 39.30 ml/min Low 50-250 [facility] Comment on above: Performed By: #### L 503.7505, L100.0100, L500.2500, L501.4021 ####[facility] [address] [place], [address] GAP 12 Normal 5-15 [facility] Comment on above: Performed By: #### L 503.7505, L100.0100, L500.2500, L501.4021 ####[facility] [address] [place], [address] GFR/1.73 sq M.predicted among non-blacks MDRD (S/P/Bld) [Vol rate/Area] 56 mL/min/{1.73_m2} Low >60 [facility] Comment on above: Result Comment: mL/m in/1.73m2 CKD-EPI Creatinine Equation (2020) Performed By: #### L 503.7505, L100.0100, L500.2500, L501.4021 ####[facility] [address] [place], [address] Glucose [Mass/Vol] 126 mg/dL High 70-99 [facility] Comment on above: Performed By: #### L 503.7505, L100.0100, L500.2500, L501.4021 ####[facility] [address] [place], [address] Potassium [Moles/Vol] 3.9 mmol/L Normal 3.3-5.1 [facility] Comment on above: Performed By: #### L 503.7505, L100.0100, L500.2500, L501.4021 ####[facility] [address] [place], [address] Sodium [Moles/Vol] 137 mmol/L Normal 133-145 [facility] Comment on above: Performed By: #### L 503.7505, L100.0100, L500.2500, L501.4021 ####[facility] [address] [place], [address] Urea nitrogen [Mass/Vol] 13 mg/dL Normal 4-19 [facility] Comment on above: Performed By: #### L 503.7505, L100.0100, L500.2500, L501.4021 ####[facility] [address] [place], [address] CBC W/Diff, Automatedon 06- 0-2024 Absolute Lymph 1.93 X10 3/uL Normal 0.83-4.51 [facility] Comment on above: Performed By: #### L 501.9520, L100.0100, L501.5200, L500.2500 #### [facility] [address] [place], [address] Absolute Neut 8.1 X10 3/uL High 2.0-7.7 [facility] Comment on above: Performed By: #### L 501.9520, L100.0100, L501.5200, L500.2500 #### [facility] [address] [place], [address] Basophils/100 WBC (Bld) 0.7 % Normal 0-1 [facility] Comment on above: Performed By: #### L 501.9520, L100.0100, L501.5200, L500.2500 #### [facility] [address] [place], [address] Eosinophils/100 WBC (Bld) 2.9 % Normal 0-5 [facility] Comment on above: Performed By: #### L 501.9520, L100.0100, L501.5200, L500.2500 #### [facility] [address] [place], [address] Erythrocyte distribution width (RBC) [Ratio] 13.0 % Normal 11.6-14.6 [facility] Comment on above: Performed By: #### L 501.9520, L100.0100, L501.5200, L500.2500 #### [facility] [address] [place], [address] Hematocrit (Bld) [Volume fraction] 41.5 % Normal 37-47 [facility] Comment on above: Performed By: #### L 501.9520, L100.0100, L501.5200, L500.2500 #### [facility] [address] [place], [address] Hemoglobin (Bld) [Mass/Vol] 14.0 g/dL Normal 12.0-15.0 [facility] Comment on above: Performed By: #### L 501.9520, L100.0100, L501.5200, L500.2500 #### [facility] [address] [place], [address] IG% 0.400 Normal 0.0-0.9 [facility] Comment on above: Result Comment: IG% - Immature Granulocytes (promyelocytes, myelocytes and metamyelocytes) > 1% indicates that a LEFT SHIFT is Present. Performed By: #### L 501.9520, L100.0100, L501.5200, L500.2500 #### [facility] [address] [place], [address] Lymphocytes/100 WBC (Bld) 16.7 % Low 19-41 [facility] Comment on above: Performed By: #### L 501.9520, L100.0100, L501.5200, L500.2500 #### [facility] [address] [place], [address] MCH (RBC) [Entitic mass] 30.8 pg Normal 27.0-32.0 [facility] Comment on above: Performed By: #### L 501.9520, L100.0100, L501.5200, L500.2500 #### [facility] [address] [place], [address] MCHC (RBC) [Mass/Vol] 33.7 g/dL Normal 32-36 [facility] Comment on above: Performed By: #### L 501.9520, L100.0100, L501.5200, L500.2500 #### [facility] [address] [place], [address] MCV (RBC) [Entitic vol] 91.2 fL Normal 81-99 [facility] Comment on above: Performed By: #### L 501.9520, L100.0100, L501.5200, L500.2500 #### [facility] [address] [place], [address] Monocytes/100 WBC (Bld) 9.6 % Normal 0-10 [facility] Comment on above: Performed By: #### L 501.9520, L100.0100, L501.5200, L500.2500 #### [facility] [address] [place], [address] Neutrophils/100 WBC (Bld) 69.7 % Normal 47-70 [facility] Comment on above: Performed By: #### L 501.9520, L100.0100, L501.5200, L500.2500 #### [facility] [address] [place], [address] Nucleated RBC (Bld) [#/Vol] 0 10*3/uL Normal 0-5 [facility] Comment on above: Performed By: #### L 501.9520, L100.0100, L501.5200, L500.2500 #### [facility] [address] [place], [address] Platelet mean volume (Bld) [Entitic vol] 9.8 fL Normal 6.2-12.0 [facility] Comment on above: Performed By: #### L 501.9520, L100.0100, L501.5200, L500.2500 #### [facility] [address] [place], [address] Platelets (Bld) [#/Vol] 379 10*3/uL Normal 150-450 [facility] Comment on above: Performed By: #### L 501.9520, L100.0100, L501.5200, L500.2500 #### [facility] [address] [place], [address] RBC (Bld) [#/Vol] 4.55 10*6/uL Normal 4.2-5.4 [facility] Comment on above: Performed By: #### L 501.9520, L100.0100, L501.5200, L500.2500 #### [facility] [address] [place], [address] RDW SD 43.5 fl Normal 35.1-43.9 [facility] Comment on above: Performed By: #### L 501.9520, L100.0100, L501.5200, L500.2500 #### [facility] [address] [place], [address] WBC (Bld) [#/Vol] 11.6 10*3/uL High 4.4-11.0 [facility] Comment on above: Performed By: #### L 501.9520, L100.0100, L501.5200, L500.2500 #### [facility] [address] [place], [address] Absolute Lymph 1.87 X10 3/uL Normal 0.83-4.51 [facility] Comment on above: Performed By: #### L 503.7505, L100.0100, L500.2500, L501.4021 ####[facility] [address] [place], [address] Absolute Neut 7.5 X10 3/uL Normal 2.0-7.7 [facility] Comment on above: Performed By: #### L 503.7505, L100.0100, L500.2500, L501.4021 ####[facility] [address] [place], [address] Basophils/100 WBC (Bld) 1.0 % Normal 0-1 [facility] Comment on above: Performed By: #### L 503.7505, L100.0100, L500.2500, L501.4021 ####[facility] [address] [place], [address] Eosinophils/100 WBC (Bld) 3.1 % Normal 0-5 [facility] Comment on above: Performed By: #### L 503.7505, L100.0100, L500.2500, L501.4021 ####[facility] [address] [place], [address] Erythrocyte distribution width (RBC) [Ratio] 13.2 % Normal 11.6-14.6 [facility] Comment on above: Performed By: #### L 503.7505, L100.0100, L500.2500, L501.4021 ####[facility] [address] [place], [address] Hematocrit (Bld) [Volume fraction] 40.4 % Normal 37-47 [facility] Comment on above: Performed By: #### L 503.7505, L100.0100, L500.2500, L501.4021 ####[facility] [address] [place], [address] Hemoglobin (Bld) [Mass/Vol] 13.7 g/dL Normal 12.0-15.0 [facility] Comment on above: Performed By: #### L 503.7505, L100.0100, L500.2500, L501.4021 ####[facility] [address] [place], [address] IG% 1.700 High 0.0-0.9 [facility] Comment on above: Result Comment: IG% - Immature Granulocytes (promyelocytes, myelocytes and metamyelocytes) > 1% indicates that a LEFT SHIFT is Present. Performed By: #### L 503.7505, L100.0100, L500.2500, L501.4021 ####[facility] [address] [place], [address] Lymphocytes/100 WBC (Bld) 16.5 % Low 19-41 [facility] Comment on above: Performed By: #### L 503.7505, L100.0100, L500.2500, L501.4021 ####[facility] [address] [place], [address] MCH (RBC) [Entitic mass] 30.8 pg Normal 27.0-32.0 [facility] Comment on above: Performed By: #### L 503.7505, L100.0100, L500.2500, L501.4021 ####[facility] [address] [place], [address] MCHC (RBC) [Mass/Vol] 33.9 g/dL Normal 32-36 [facility] Comment on above: Performed By: #### L 503.7505, L100.0100, L500.2500, L501.4021 ####[facility] [address] [place], [address] MCV (RBC) [Entitic vol] 90.8 fL Normal 81-99 [facility] Comment on above: Performed By: #### L 503.7505, L100.0100, L500.2500, L501.4021 ####[facility] [address] [place], [address] Monocytes/100 WBC (Bld) 11.4 % High 0-10 [facility] Comment on above: Performed By: #### L 503.7505, L100.0100, L500.2500, L501.4021 ####[facility] [address] [place], [address] Neutrophils/100 WBC (Bld) 66.3 % Normal 47-70 [facility] Comment on above: Performed By: #### L 503.7505, L100.0100, L500.2500, L501.4021 ####[facility] [address] [place], [address] Nucleated RBC (Bld) [#/Vol] 0 10*3/uL Normal 0-5 [facility] Comment on above: Performed By: #### L 503.7505, L100.0100, L500.2500, L501.4021 ####[facility] [address] [place], [address] Platelet mean volume (Bld) [Entitic vol] 10.1 fL Normal 6.2-12.0 [facility] Comment on above: Performed By: #### L 503.7505, L100.0100, L500.2500, L501.4021 ####[facility] [address] [place], [address] Platelets (Bld) [#/Vol] 377 10*3/uL Normal 150-450 [facility] Comment on above: Performed By: #### L 503.7505, L100.0100, L500.2500, L501.4021 ####[facility] [address] [place], [address] RBC (Bld) [#/Vol] 4.45 10*6/uL Normal 4.2-5.4 [facility] Comment on above: Performed By: #### L 503.7505, L100.0100, L500.2500, L501.4021 ####[facility] [address] [place], [address] RDW SD 43.1 fl Normal 35.1-43.9 [facility] Comment on above: Performed By: #### L 503.7505, L100.0100, L500.2500, L501.4021 ####[facility] [address] [place], [address] WBC (Bld) [#/Vol] 11.3 10*3/uL High 4.4-11.0 [facility] Comment on above: Performed By: #### L 503.7505, L100.0100, L500.2500, L501.4021 ####[facility] [address] [place], [address] CTA Chest W/WO Contraston CTA Chest W/WO Contrast [facility] Imaging Services [address] [place] [address] CTA Chest W/WO Contrast MR#: [id number] Acct: [id number] Name: MAUREEN ANSARI Rep #: [id number] : 1955 F 69 From: Sam casper MD PCP: Care Physician,No Primary Status: REG ER Study: CTA Chest W/WO Contrast Date of Exam: 12/11/24 Exam# [id number] Ordering Dr: Isaac Araujo DO PROCEDURE: CTA CHEST W/WO CONTRAST 12/11/2024 REASON FOR EXAM: SOB, ELEVATED TROP TECHNIQUE: CTA imaging of the chest with intravenous contrast. Multiplanar and multisequence images were obtained. CONTRAST: Isovue-300 70 VOLUME: 100 mL Gauge IV One or more dose reduction techniques were used (e.g., Automated exposure control, adjustment of the mA and/or kV according to patient size, use of iterative reconstruction technique). RADIATION DOSE SUMMARY: CTDlvol: 4.62 mGy DLP: 169 mGycm COMPARISON: Radiograph on 12/11/2024. FINDINGS: Moderate bilateral pleural effusions. Passive atelectatic airspace disease/consolidatio ns of the lower lobes. Moderate interstitial pulmonary edema. Mild alveolar pulmonary edema. Mildly prominent mediastinal lymph nodes are noted with the largest measuring 1.4 cm. Small sliding hiatal hernia. Dilated supra hepatic IVC suggestive of dysfunction of the right cardiac cavities. Bilateral hypertrophy of the adrenal glands. Normal enhancement of the main pulmonary artery and right and left pulmonary arteries. Normal enhancement of the bilateral peripheral pulmonary arteries. There is no demonstrated pulmonary embolism. Normal thoracic aorta and visualized great vessels. There is no demonstrated aortic dissection. Normal pericardium. Normal visualized trachea and bronchi. Normal chest wall structures. Mild diffuse spondylosis. CT/CTA Chest W/WO Contrast IMPRESSION: No CT evidence of pulmonary embolus or aortic dissection. Moderate bilateral pleural effusions. Passive atelectatic airspace disease/consolidatio ns of the lower lobes. Moderate interstitial pulmonary edema. Mild alveolar pulmonary edema. Mildly prominent mediastinal lymph nodes are noted with the largest measuring 1.4 cm. Small sliding hiatal hernia. Dilated supra hepatic IVC suggestive of dysfunction of the right cardiac cavities. Bilateral benign chronic hypertrophy of the adrenal glands. Reading Location: [place] [address] CC: Dr. Isaac Araujo, DO; No Primary Care Physician Dental Specialist: Signed Normal [facility] Calculated very low density lipoprotein (VLDL) cholesterol measurementOrdered By: Sukhi Forbes on 12-11-2024 Calculated very low density lipoprotein (VLDL) cholesterol measurement 17 mg/dL 5-40 [facility] Consultation - Cardiologyon 12-11-2024 Consultation - Cardiology [facility] Medical Records Department [address] [place] [address] Consultation - Cardiology 12/11/24 0957 MR#: [id number] Acct: [id number] Name: MAUREEN ANSARI ALYSHA Rep #: [id number] : 1955 69 From: Jean Paul Holt MD PCP: Dr. Marianela Edwards DO Status:ADM IN Location: ICU ICU09- Assessment Plan Assessment/Plan (1) Acute hypoxic respiratory failure: PLAN: Patient presented with acute respiratory failure requiring BiPAP initially for recovery. She is currently on 5 L nasal cannula. Patient has no prior history of emphysema or COPD. She has no prior history of cardiovascular issues or heart failure. Her CT was negative for pulmonary emboli but it was consistent with pulmonary vascular congestion and bilateral pleural effusions. She also had significant right ventricular enlargement. The patient denies any prior history of PEs or recurrent DVTs. She is improving on today's exam. A 2D echocardiogram is pending at this time. (2) Carotid arterial disease: QUALIFIERS: Carotid artery disease type: stenosis Laterality: bilateral Qualified Code(s): I65.23 - Occlusion and stenosis of bilateral carotid arteries PLAN: Patient's carotid on the left was totally obstructed. She underwent right internal carotid endarterectomy in [place]. She denies any history of CVA or TIA. 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 The patient did undergo MRI recently by [facility] since moving to [place]. (3) Elevated troponin: PLAN: Patient's troponins have been elevated 1979, 1735, and 2120. The EKG does not show any definitive changes the patient was hypoxic upon admission and is highly likely she has some coronary disease. She also has history of this right ventricular enlargement which could be related to an old RVI. There is no history of recurrent PEs but she does have a longstanding tobacco exposure. She has never been diagnosed with COPD to her knowledge. Will further evaluate her LV and RV function with 2D echocardiogram which is pending. (4) Congestive heart failure: QUALIFIERS: Heart failure type: unspecified Heart failure chronicity: unspecified Q ualified Code(s): I50.9 - Heart failure, unspecified PLAN: The patient's heart failure appears to be new onset by her report. She does have pulmonary signs of both left and right failure. A 2D echocardiogram is pending to better help define the etiology of her cardiovascular situation. (5) PAT (paroxysmal atrial tachycardia): PLAN: Patient remains in sinus rhythm at this point in time. She is on no rate modulating drugs and remains in a controlled rhythm. PLAN: Plan 1. Obtain 2D echocardiogram to evaluate LV and RV function as well as rule out occult valvular heart disease. 2. Continue current medical therapy per the primary service. Further recommendations on cardiovascular treatment pending the echocardiogram. 3. It is likely the elevated troponins are related to demand ischemia. HPI Consult Data Date of Consult: 12/11/24 HPI Narrative Reason for Consultation: Shortness of breath and right sided heart failure. HPI Narrative: MAUREEN BARRON, is a 69 F who presents with a 2-week history of progressive shortness of breath. The patient carries a long history of peripheral vascular issues as well as intracranial clipping of the aneurysm. She did undergo an MRI recently in [place] and was cleared by her previous surgeon in [place] to have this done. The patient came to the emergency department because of this progressive shortness of breath. A PE was ruled out with CT angiogram. However it was noted she had not markedly enlarged RV no pericardial effusion was documented by CT or bedside echo. The patient had a dilated IVC consistent with right-sided failure. She also had bilateral pleural effusions and changes consistent with pulmonary edema. The patient denies any prior history of cardiac issues. She denies any chest pain at this point in time but she did have chest tightness with her shortness of breath. Her troponins initially were 1980, 1735, and 2120. The ECG showed what appeared to be paroxysmal atrial tachycardia with breaking to normal sinus rhythm and then back into PAT. There was a question of an old inferior wall infarct pattern. The patient has a history of bilateral carotid stenosis 1 side is totally obstructed the other has been treated with endarterectomy. Currently the patient is in normal sinus rhythm at 86 bpm on telemetry. She denies any chest symptoms at this point in time. Her breathing is easier. The patient has been a long-term smoker her entire life she is now 69 years old and she reports smoking for 55 years. She denies any history of pulmonary insufficiency or issues with her lungs in the past. The patient has lived in (more content not included)... Normal [facility] Echo Completeon 12-11-2024 Echo Complete [facility] [address] [place] [address] Echo Complete 12/11/24 0945 MR#: [id number] Acct: [id number] Name: MAUREEN ANSARI Rep #: [id number] : 1955 69 From: Virginie Galarza MD Attending Dr: Dr. Sukhi Forbes, Status: ADM IN Ordering Dr: Francis Bojorquez MD Date: 12/11/24 Location: ICU Sex: F C Admitted: 12/11/24 Reason For Study : CHF Procedure This was a 2D Doppler, Color Flow transthoracic echocardiogram. Exam performed portable in ICU/CCU. Left Ventricle Normal LV size. Mild concentric left ventricular hypertrophy. Severe inferior, basal to mid posterior and basal to mid lateral hypokinesis. Estimated LVEF 45%. Stage II diastolic dysfunction. Right Ventricle Normal right ventricle. Atria The left atrium is moderately enlarged. Normal right atrium. Mitral Valve Severe mitral valve regurgitation. Tricuspid Valve Trivial tricuspid valve insufficiency. Unable to estimate RV systolic pressure due to insufficient tricuspid regurgitant envelope. Aortic Valve Trisinus/trileaflet aortic valve. Pulmonic Valve The pulmonic valve is not well visualized. Great Vessels Normal sized aortic root. Pericardium/Pleural No pericardial effusion. MMode/2D Measurements Calculations LVIDd: 4.7 cm IVSd: 1.2 cm Ao root diam: 3.1 cm LVIDs: 4.2 cm LVPWd: 0.94 cm RVDd: 2.8 cm FS: 9.6 % LAV(MOD-bp): 62.5 ml LVAd ap4: 26.6 cm2 SV(MOD-sp4): 32.8 ml LAV(MOD-bp) Indexed: 42.2 ml/m2 LVLd ap4: 7.2 cm SI(MOD-sp4): 22.2 ml/m2 LAV(MOD-sp2): 85.7 ml EDV(MOD-sp4): 82.2 ml LAV(MOD-sp4): 43.5 ml EDV(sp4-el): 83.5 ml LVAs ap4: 18.2 cm2 LVLs ap4: 6.0 cm ESV(MOD-sp4): 49.4 ml ESV(sp4-el): 47.0 ml EF(MOD-sp4): 39.9 % EF(sp4-el): 43.7 % SV(sp4-el): 36.5 ml LA A4 area: 17.5 cm2 LA dimension(2D): 4.4 cm RA A4 area: 7.8 cm2 TAPSE: 2.0 cm Time Measurements MV dec time: 0.10 sec Doppler Measurements Calculations MV E max viviana: 106.9 cm/sec Lat Peak E' Viviana: 5.0 cm/sec Med Peak E' Viviana: 5.5 cm/sec MV A max viviana: 86.0 cm/sec E/E' lat: 21.4 E/E' med: 19.3 MV E/A: 1.2 Ao V2 max: 128.6 cm/sec LV V1 max: 92.7 cm/sec MV dec slope: 1043 cm/sec2 Ao max P.6 mmHg LV V1 max P.4 mmHg Ao V2 mean: 85.7 cm/sec Ao mean P.4 mmHg Ao V2 VTI: 19.2 cm PA V2 max: 80.6 cm/sec TR max viviana: 280.9 cm/sec TR max P.1 mmHg ECHO/Echo Complete Interpretation Summary Mild concentric left ventricular hypertrophy. Severe inferior, basal to mid posterior and basal to mid lateral hypokinesis. Estimated LVEF 45%. Stage II diastolic dysfunction. The left atrium is moderately enlarged. Severe mitral valve regurgitation. Ordering Physician: Francis Bojorquez Referring Physician: Marianela Edwards Performed By: Bibiana Anton, LE, RVT 12/11/24 1159 Date Virginie Galarza MD CC: Dr. Sukhi Forbes DO; Dr. Marianela Edwards DO; Dr. Francis Bojorquez MD Date Dictated: 12/11/24944 Date Transcribed: 12/11/24 1116 Dental Specialist: Signed Normal [facility] Echocardiogram study reportO rdered By: Virginie Galarza on 12-11-2024 Study report [facility] Services [address] [place] [address] Echo Complete 12/11/24944 MR#: [id number] Acct: [id number] Name: MAUREEN ANSARI Rep #:[id number] : 1955 69 From: Virginie Galarza MD Attending Dr: Dr. Sukhi Forbes DO Status: ADM IN Ordering Dr: Francis Bojorquez MD Date: Location: ICU Sex: F C Admitted: 12/11/24 Reason For Study : CHF Procedure This was a 2D Doppler, Color Flow transthoracic echocardiogram. Exam performed portable in ICU/CCU. Left Ventricle Normal LV size. Mild concentric left ventricular hypertrophy. Severe inferior, basal to mid posterior and basal to mid lateral hypokinesis. Estimated LVEF 45%. Stage II diastolic dysfunction. Right Ventricle Normal right ventricle. Atria The left atrium is moderately enlarged. Normal right atrium. Mitral Valve Severe mitral valve regurgitation. Tricuspid Valve Trivial tricuspid valve insufficiency. Unable to estimate RV systolic pressure due to insufficient tricuspid regurgitant envelope. Aortic Valve Trisinus/trileaflet aortic valve. Pulmonic Valve The pulmonic valve is not well visualized. Great Vessels Normal sized aortic root. Pericardium/Pleural No pericardial effusion. MMode/2D Measurements & Calculations LVIDd: 4.7 cm IVSd: 1.2 cm Ao root diam: 3.1 cm LVIDs: 4.2 cm LVPWd: 0.94 cm RVDd: 2.8 cm FS: 9.6 % LAV(MOD-bp): 62.5 ml LVAd ap4: 26.6 cm2 SV(MOD-sp4): 32.8 ml LAV(MOD-bp) Indexed: 42.2 ml/m2 LVLd ap4: 7.2 cm SI(MOD-sp4): 22.2 ml/m2 LAV(MOD-sp2): 85.7 ml EDV(MOD-sp4): 82.2 ml LAV(MOD-sp4): 43.5 ml EDV(sp4-el): 83.5 ml LVAs ap4: 18.2 cm2 LVLs ap4: 6.0 cm ESV(MOD-sp4): 49.4 ml ESV(sp4-el): 47.0 ml EF(MOD-sp4): 39.9 % EF(sp4-el): 43.7 % SV(sp4-el): 36.5 ml LA A4 area: 17.5 cm2 LA dimension(2D): 4.4 cm RA A4 area: 7.8 cm2 TAPSE: 2.0 cm Time Measurements MV dec time: 0.10 sec Doppler Measurements & Calculations MV E max viviana: 106.9 cm/sec Lat Peak E' Viviana: 5.0 cm/sec Med Peak E' Viviana: 5.5 cm/sec MV A max viviana: 86.0 cm/sec E/E' lat: 21.4 E/E' med: 19.3 MV E/A: 1.2 Ao V2 max: 128.6 cm/sec LV V1 max: 92.7 cm/sec MV dec slope: 1043 cm/sec2 Ao max P.6 mmHg LV V1 max P.4 mmHg Ao V2 mean: 85.7 cm/sec Ao mean P.4 mmHg Ao V2 VTI: 19.2 cm PA V2 max: 80.6 cm/sec TR max viviana: 280.9 cm/sec TR max P.1 mmHg ECHO/Echo Complete Interpretation Summary Mild concentric left ventricular hypertrophy. Severe inferior, basal to mid posterior and basal to mid lateral hypokinesis. Estimated LVEF 45%. Stage II diastolic dysfunction. The left atrium is moderately enlarged. Severe mitral valve regurgitation. Ordering Physician: Francis Bojorquez Referring Physician: Marianela Edwards Performed By: Bibiana Anton RDCS, RVT 12/11/24 1159 Date _ Virginie Galarza MD CC: Dr. Sukhi Forbes DO; Dr. Marianela Edwards DO; Dr. Francis Bojorquez MD ~ Date Dictated: 12/11/24 0945 Date Transcribed: 12/11/24 1116 Dental Specialist: Signed [facility] Work Phone: Electrocardiogram reportOrde red By: Jean Paul Holt on 12-11-2024 EKG study [facility] Cardiovascular Services [address] [place] [id number] 12 Lead EKG 12/11/24 0021 MR#: [id number] Acct: [id number] Name: MAUREEN ANSARI ALYSHA Rep #:[id number] : 1955 69 From: Jean Paul gee MD Attending Dr: Dr. Sukhi Forbes DO Status: ADM IN Ordering Dr: Isaac Araujo DO Date: Location: ICU Sex: F C Admitted: 12/11/24 Test Reason : DYSRHYTHMIA Blood Pressure : */* mmHG Vent. Rate : 92 BPM Atrial Rate : 92 BPM P-R Int : 112 ms QRS Dur : 88 ms QT Int : 392 ms P-R-T Axes : 76 29 35 degrees QTcB Int : 484 ms Normal sinus rhythm Possible Left atrial enlargement Possible Inferior infarct , age undetermined Abnormal ECG Confirmed by Jean Paul Holt ([id number]), film editor supervisor PARISA ENAMORADO ([id number]) on 12/11/2024 11:17:54 AM Referred By: TB Confirmed By: Jean Paul Holt 12/11/241116 Date _ Jean Paul Holt MD CC: Dr. Sukhi Forbes DO; Dr. Marianela Edwards DO; Dr. Isaac Arauoj DO ~ Signed [facility] Work Phone: EKG study [facility] Cardiovascular Services [address] [place] [address] 12 Lead EKG 12/11/24 0550 MR#: [id number] Acct: [id number] Name: MAUREEN ANSARI ALYSHA Rep #:[id number] : 1955 69 From: Jean Paul gee MD Attending Dr: Dr. Sukhi Forbes DO Status: ADM IN Ordering Dr: Isaac Araujo DO Date: Location: ICU Sex: F C Admitted: 12/11/24 Test Reason : tachycardia Blood Pressure : */* mmHG Vent. Rate : 144 BPM Atrial Rate : * BPM P-R Int : * ms QRS Dur : 90 ms QT Int : 298 ms P-R-T Axes : * 8 80 degrees QTcB Int : 461 ms Critical Test Result: High HR NSR WITH PAT PAROXYSMAL ATRIAL TACHYCARDIA Inferior infarct , age undetermined Abnormal ECG When compared with ECG of 11-Dec-2024 00:21, MANUAL COMPARISON REQUIRED DATA IS UNCONFIRMED Confirmed by Jean Paul Holt ([id number]), film editor supervisor PARISA ENAMORADO ([id number]) on 12/11/2024 11:10:42 AM Referred By: Confirmed By: Jean Paul Holt 12/11/24 111 Date _ Jean Paul Holt MD CC: Dr. Sukhi Forbes, DO; Dr. Marianela Edwards, DO; Dr. Isaac Araujo, DO ~ Signed [facility] Work Phone: [phone] 12-11-2024 Trop T High Sen 1735 ng/L Invalid Interpretation Code <=14 [facility] Comment on above: Result Comment: Crit ical Result(s) Called at: 0251 by:??WALDO WOODARD TO TESHA HAAS. Results read back by same. Performed By: #### L 499.0042 ####[facility] [address] [place], [address] L499.0043on 12-11-2024 Trop T High Sen 2120 ng/L Invalid Interpretation Code <=14 [facility] Comment on above: Result Comment: Crit ical Result(s) Called at: 12/11/2024-05:04 by: Nelson Henriquez.??Results read back by same. Performed By: #### L 100.0100, L500.2500 #### [facility] [address] [place], [address] L501.4021on 12-11-2024 Trop T High Sen 1980 ng/L Invalid Interpretation Code <=14 [facility] Comment on above: Result Comment: Crit ical Result(s) Called at: 0032 by:??WALDO WOODARD TO TESHA RUSS. Results read back by same. Performed By: #### L 503.7505, L100.0100, L500.2500, L501.4021 ####[facility] [id number] [facility] [place], [address] L503.7505on 12-11-2024 Natriuretic peptide B (Bld) [Mass/Vol] 7545 pg/mL High <=900 [facility] Comment on above: Result Comment: Hear t Failure Unlikely: < 300 pg/mL Heart Failure Likely < 50 Years: > 450 pg/mL 50-75 Years: > 900 pg/mL >75 Years: > 1800 pg/mL Performed By: #### L 503.7505, L100.0100, L500.2500, L501.4021 ####[facility] [address] [place], [address] LDL calc ser/plasOrdered By: Sukhi Forbes on 12-11-2024 Cholesterol in LDL [Mass/Vol] 131 mg/dL [facility] Comment on above: Xcpwvwwyoc=886-507 m g/dL & Higher Bpea=716 mg/dL or greater Lipid Profileon 12-11-2024 CHOL:HDL 6.65 Normal [facility] Comment on above: Performed By: #### L 100.0100, L500.2500 #### [facility] [address] [place], [address] Cholesterol [Mass/Vol] 175 mg/dL Normal <=200 [facility] Comment on above: Result Comment: Chol esterol level, Desirable <200 mg/dL Borderline high cholesterol 200-239 mg/dL High cholesterol >=240 mg/dL Recommendations of the NCEP Adult Treatment Panel for the following risk-cutoff thresholds for the [place] population. Performed By: #### L 100.0100, L500.2500 #### [facility] [address] [place], [address] Cholesterol in HDL [Mass/Vol] 26 mg/dL Low [facility] Comment on above: Result Comment: Jennifer onal Cholesterol Education Program (NCEP) guidelines: <40 mg/dL: Low HDL-cholesterol (major risk factor for CHD) >= 60 mg/dL: High HDL-cholesterol (negative risk factor for CHD) HDL-cholesterol is affected by a number of factors, e.g. smoking, exercise, hormones, sex and age. Performed By: #### L 100.0100, L500.2500 #### [facility] [address] [place], [address] Cholesterol in LDL [Mass/Vol] 131 mg/dL Normal [facility] Comment on above: Result Comment: Bord ddtfww=118-083 mg/dL Higher Mfhl=980 mg/dL or greater Performed By: #### L 100.0100, L500.2500 #### [facility] [address] [place], [address] Cholesterol in VLDL [Mass/Vol] 17 mg/dL Normal 5-40 [facility] Comment on above: Performed By: #### L 100.0100, L500.2500 #### [facility] [address] [place], [address] Triglyceride [Mass/Vol] 87 mg/dL Normal [facility] Comment on above: Result Comment: The drugs N-Acetylcysteine and Metamizole may falsely depress this assay. Normal range: <150 mg/dL Borderline High: 150-199 mg/dL High: 200-499 mg/dL Very High: >500 mg/dL Performed By: #### L 100.0100, L500.2500 #### [facility] [address] [place], [address] Magnesiumon 12-11-2024 Magnesium [Mass/Vol] 1.9 mg/dL Normal 1.5-2.2 [facility] Comment on above: Performed By: #### L 501.9520, L100.0100, L501.5200, L500.2500 #### [facility] [address] [place], [address] Magnesium measurement (mass/ volume)Ordered By: Francis Bojorquez on 12-11-2024 Magnesium (Unsp spec) [Mass/Vol] 1.9 mg/dL 1.5-2.2 [facility] Screening total cholesterol/ high density lipoprotein (HDL) cholesterol ratioOrdered By: Sukhi Forbes on 12-11-2024 Cholesterol.total/Choles terol in HDL [Mass ratio] 6.65 {ratio} [facility] Serum or plasma cholesterol in HDL measurement (mass/volume)Ordered By: Sukhi Forbes on 12-11-2024 Cholesterol in HDL [Mass/Vol] 26 mg/dL Low >40 [facility] Comment on above: National Cholesterol Education Program (NCEP) guidelines:<40 mg/dL: Low HDL-cholesterol (major risk factor for CHD)>= 60 mg/dL: High HDL-cholesterol (negative risk factor for CHD)HDL-cholesterol is affected by a number of factors, e.g. smoking, exercise, hormones, sex and age. Serum or plasma cholesterol measurement (mass/volume)Ordered By: Sukhi Forbes on 12-11-2024 Cholesterol [Mass/Vol] 175 mg/dL <201 [facility] Comment on above: Cholesterol level, D esirable <200 mg/dLBorderline high cholesterol 200-239 mg/dLHigh cholesterol >=240 mg/dLRecommendations of the NCEP Adult Treatment Panel for the following risk-cutoff thresholds for the [place] population. T4 Free Directon 12-11-2024 T4 FREE DIRECT 1.90 ng/dL High 0.76-1.46 [facility] Comment on above: Performed By: #### L 100.0100, L500.2500 #### [facility] [address] [place], [address] T4 freeOrdered By: Sukhi pacheco on 12-11-2024 Free T4 [Mass/Vol] 1.90 ng/dL High 0.76-1.46 [facility] TSH DL <= 0.005 mIU/L QnOrde red By: Francis Bojorquez on 12-11-2024 TSH Qn 0.046 uIU/mL Low 0.300-4.200 [facility] Thyroid Stim Hormone (TSH)on 12-11-2024 TSH 0.046 uIU/mL Low 0.300-4.200 [facility] Comment on above: Performed By: #### L 501.9520, L100.0100, L501.5200, L500.2500 #### [facility] [address] [place], [place], [address] Triglycerides measurementOrd ered By: Sukhi Forbes on 12-11-2024 Triglyceride [Mass/Vol] 87 mg/dL <199 [facility] Comment on above: The drugs N-Acetylcy steine and Metamizole may falsely depress this assay. Normal range: <150 mg/dLBorderline High: 150-199 mg/dLHigh: 200-499 mg/dLVery High: >500 mg/dL Troponin T.cardiac [Mass/vol ume] in Serum or Plasma by High sensitivity methodOrdered By: Isaac Araujo on 12-11-2024 Troponin T.cardiac High sensitivity method [Mass/Vol] 2120 ng/L High <14 [facility] Comment on above: Critical Result(s) C alled at: 12/11/2024-05:04 by: Nelson Henriquez. Results read back by same. Troponin T.cardiac High sensitivity method [Mass/Vol] 1735 ng/L High <14 [facility] Comment on above: Critical Result(s) C alled at: 0251 by: WALDO WOODARD TO TESHA HAAS. Results read back by same. 12 Lead EKGon 12-10-2024 12 Lead EKG [facility] Cardiovascular Services [address] [place] [address] 12 Lead EKG 12/11/24 0021 MR#: [id number] Acct: [id number] Name: MAUREEN ANSARI ALYSHA Rep #: [id number] : 1955 69 From: Jean Paul Holt MD Attending Dr: Dr. Sukhi Forbes DO Status: ADM IN Ordering Dr: Isaac Araujo DO Date: 12/10/24 Location: ICU Sex: F C Admitted: 12/11/24 Test Reason : DYSRHYTHMIA Blood Pressure : */* mmHG Vent. Rate : 92 BPM Atrial Rate : 92 BPM P-R Int : 112 ms QRS Dur : 88 ms QT Int : 392 ms P-R-T Axes : 76 29 35 degrees QTcB Int : 484 ms Normal sinus rhythm Possible Left atrial enlargement Possible Inferior infarct , age undetermined Abnormal ECG Confirmed by Jean Paul Holt ([id number]), film editor supervisor PARISA ENAMORADO ([id number]) on 12/11/2024 11:17:54 AM Referred By: TB Confirmed By: Jean Paul Holt 12/11/24 1117 Date Jean Paul Holt MD CC: Dr. Sukhi Forbes, DO; Dr. Marianela Edwards, DO; Dr. Isaac Araujo, DO Signed Normal [facility] Absolute lymphocyte countOrd ered By: Isaac Araujo on 12-10-2024 Lymphocytes Auto (Unsp spec) [#/Vol] 1.87 10*3/uL 0.83-4.51 [facility] Absolute neutrophil countOrd ered By: Isaac Araujo on 12-10-2024 Neutrophils (Bld) [#/Vol] 7.5 10*3/uL 2.0-7.7 [facility] Anion gap in Serum or Plasma Ordered By: Isaac Araujo on 12-10-2024 Anion gap [Moles/Vol] 12 mmol/L 5-15 [facility] Automated lymphocyte count a s percentage of total leukocytesOrdered By: Isaac Araujo on 12-10-2024 Lymphocytes/100 WBC Auto (Unsp spec) 16.5 % Low 19-41 [facility] BUN/creatinine ratioOrdered By: Isaac Araujo on 12-10-2024 Urea nitrogen/Creatinine [Mass ratio] 11.8 mg/mg 10-20 [facility] Basophil percentageOrdered B y: Isaac Araujo on 12-10-2024 Basophils/100 WBC (Bld) 1.0 % 0-1 [facility] Carbon dioxide, total [Moles /volume] in Central venous bloodOrdered By: Isaac Araujo on 12-10-2024 CO2 [Moles/Vol] 18.3 mmol/L Low 21.0-32.0 [facility] Chest PA and Lateralon 12-10 Chest PA and Lateral [facility] Imaging Services [address] [place], [place] [id number] Chest PA and Lateral MR#: [id number] Acct: [id number] Name: MAUREEN ANSARI ALYSHA Rep #: [id number] : 1955 F 69 From: Sam casper MD PCP: Care Physician,No Primary Status: PRE ER Study: Chest PA and Lateral Date of Exam: 12/10/24 Exam# [id number] Ordering Dr: Isaac Araujo DO PROCEDURE: CHEST PA AND LATERAL 12/11/2024 REASON FOR EXAM: SOB TECHNIQUE: Frontal and lateral views of the chest. COMPARISON: None FINDINGS: Mild cardiomegaly. Aortic calcifications are noted. Bilateral perihilar and lower lung zones infiltrates versus volume overload changes. Minimal bilateral pleural effusion. Tiny left upper lung zone nodule likely a granuloma measuring 5 mm. No acute rib abnormalities. RAD/Chest PA and Lateral IMPRESSION: Cardiomegaly and CHF changes. Follow-up is advised Reading Location: [place] [address] CC: Dr. Isaac Araujo DO; No Primary Care Physician Dental Specialist: Signed Normal [facility] Chloride assayOrdered By: Remington Araujo on 12-10-2024 Chloride [Moles/Vol] 106 mmol/L 98-108 [facility] Emergency Department Summary on 12-10-2024 Emergency Department Summary [facility] Medical Records Department [address] [place] [address] Emergency Department Summary 12/10/24 MR#: [id number] Acct: [id number] Name: MAUREEN ANSARI ALYSHA Rep #: [id number] : 1955 69 From: Isaac Araujo DO PCP: Dr. Marianela Edwards DO Status:ADM IN Location: ICU ICU09-[address] Isaac Araujo DO on 12/11/24 at 0322 Right before the nursing staff went to take the patient to the intensive care unit the patient appears to have went into A-fib RVR I went into assess the patient and she was tachycardic to the 140s when I asked the staff to repeat an EKG by the time they arrived to bedside she converted back to normal sinus rhythm. We will attempt to obtain the arrhythmia on EKG prior to going upstairs if she continues to flip in and out of what appears to be A-fib with RVR we will try 5 mg of Lopressor. 12/11/24 0322 Cosigner Signature (if applicable): cc: Dr. Marianela Edwards DO * Signed ADDENDUM by Dr. Isaac Araujo DO on 12/11/24 at 0309 At this point in time there is no identifiable source infection therefore do not feel that antibiotics are indicated. Critical care time 47 minutes 12/11/24 0309 Cosigner Signature (if applicable): cc: Dr. Marianela Edwards DO * Signed HPI History of Present Illness Chief Complaint: Shortness of Breath Narrative Narrative: Patient is a 69-year-old female with past medical history of peripheral vascular disease, hypertension, chronic kidney disease, carotid artery disease who presented to the emergency department chief complaint of cough, chest pain and shortness of breath. According to the patient for the last few days she has had worsening cough and shortness of breath states that her symptoms started about a week ago. Patient denies any recent sick contacts. Patient states that she does smoke and does not have inhalers at home. Patient denies any history of recent travel, surgeries, DVT or PE [facility] Medical History (Updated 12/11/24 @ 03:[address] Isaac Araujo DO) Carpal tunnel syndrome on right Closed displaced bicondylar fracture of left tibia with routine healing CKD (chronic kidney disease) Cannabis use disorder HLD (hyperlipidemia) Tobacco use Carotid arterial disease Hypertension Home Medications ???Medication ???Instructions ???Recorded ???Last Taken ???Type amlodipine 10 mg tablet 10 mg PO DAILY htn 03/07/24 History cilostazol 50 mg tablet 50 mg PO BID 10/18/24 12/10/24 His tory levothyroxine 112 mcg tablet 112 mcg PO DAILY 12/10/24 12/10/24 History Allergy/AdvReac Type Severity Reaction Status Date / Time No Known Allergies Allergy Verified 12/10/24 23:26 Family History Mother , 89 Hypertension Pulmonary fibrosis Heart disease Glaucoma Father , 80 Hypertension Heart disease Diabetes Surgical History History of CEA (carotid endarterectomy) History of hip surgery Social History household members: family current occupational status: retired pets and animals: No Smoking Status: Current every day smoker tobacco type: cigarettes alcohol intake: never substance use type: marijuana caffeine: Yes Type: coffee Number of servings: 1 do you feel safe at home: Yes ROS ROS ED ROS Narrative Constitutional: Denies fevers, chills, headaches Eyes: Denies change in vision vision blurry vision Cardiovascular: Complains of chest discomfort states that mainly when she coughs denies palpitations Respiratory: Complains of cough denies sputum production Abdomen: Denies abdominal pain nausea vomiting diarrhea : Denies urinary symptoms Neurological: Denies numbness, wheeze, tingling Musculoskeletal: Denies back pain Skin: Denies rashes or lesions EXAM Physical Exam Narrative Exam Narrative: General: Patient lying in bed rest comfortably do not appear to be in acute distress Head: Atraumatic, normocephalic Eyes: PERRL bilaterally, EOMI bilaterally, no conjunctival injection noted Neck: Soft, supple, trachea midline Cardiovascular: Regular in rhythm no murmurs gallops rubs noted Respiratory: Clear to auscultation bilaterally no rales rhonchi or wheezes noted Abdomen: Soft, nondistended, no tenderness to palpation Extremities: +4/5 strength noted in the bilateral upper and lower extremities, radial pulses +2/4 in the bilateral extremities Neurological: Patient following commands knew that she was at [facility] the year is 2024 Skin: Warm, dry, intact no rashes or lesions noted Const Vital Signs: 12/10/24 23:24 12/10/24 23:26 12/10/24 23:34 Temperature 98.2 F 98.2 F Temperature (more content not included)... Normal [facility] Eosinophil percentageOrdered By: Isaac Araujo on 12-10-2024 Eosinophils/100 WBC (Bld) 3.1 % 0-5 [facility] Erythrocyte distribution wid th ratioOrdered By: Isaac Araujo on 12-10-2024 Erythrocyte distribution width (RBC) [Ratio] 13.2 % 11.6-14.6 [facility] Erythrocyte distribution wid th standard deviationOrdered By: Isaac Araujo on 12-10-2024 Erythrocyte distribution width (RBC) [Ratio] 43.1 fl 35.1-43.9 [facility] Glomerular filtration rate ( GFR) estimation/1.73 sq m using serum, plasma, or whole bOrdered By: Isaac Araujo on 12-10-2024 GFR/1.73 sq M.predicted among non-blacks MDRD (S/P/Bld) [Vol rate/Area] 56 mL/min/{1.73_m2} Low >60 [facility] Comment on above: mL/min/1.73m2 CKD-EP I Creatinine Equation (2020) Hematocrit Auto (Bld) [Volum e fraction]Ordered By: Isaac Araujo on 12-10-2024 Hematocrit (Bld) [Volume fraction] 40.4 % 37-47 [facility] Hemoglobin measurementOrdere d By: Isaac Araujo on 12-10-2024 Hemoglobin (Bld) [Mass/Vol] 13.7 g/dL 12.0-15.0 [facility] Immature granulocytes/100 WB C Auto (Bld)Ordered By: Isaac Araujo on 12-10-2024 Immature granulocytes/100 WBC (Bld) 1.700 % High 0.0-0.9 [facility] Comment on above: IG% - Immature Granu locytes (promyelocytes, myelocytes and metamyelocytes) > 1% indicates that a LEFT SHIFT is Present. MCV (mean corpuscular volume ) determinationOrdered By: Isaac Araujo on 12-10-2024 MCV (RBC) [Entitic vol] 90.8 fL 81-99 [facility] Mean corpuscular hemoglobin (MCH) determinationOrdered By: Isaac Araujo on 12-10-2024 MCH (RBC) [Entitic mass] 30.8 pg 27.0-32.0 [facility] Mean corpuscular hemoglobin concentration (MCHC) determinationOrdered By: Isaac Araujo on 12-10-2024 MCHC (RBC) [Mass/Vol] 33.9 g/dL 32-36 [facility] Mean platelet volume determi nationOrdered By: Isaac Araujo on 12-10-2024 Platelet mean volume (Bld) [Entitic vol] 10.1 fL 6.2-12.0 [facility] Monocyte percentageOrdered B y: Isaac Araujo on 12-10-2024 Monocytes/100 WBC (Bld) 11.4 % High 0-10 [facility] Natriuretic peptide.B prohor fernando N-Terminal [Mass/volume] in Serum or PlasmaOrdered By: Isaac Araujo on 12-10-2024 Natriuretic peptide.B prohormone N-Terminal [Mass/Vol] 7545 pg/mL High <900 [facility] Comment on above: Heart Failure Unlike ly: < 300 pg/mLHeart Failure Likely< 50 Years: > 450 pg/mL50-75 Years: > 900 pg/mL>75 Years: > 1800 pg/mL Neutrophil percentageOrdered By: Isaac Araujo on 12-10-2024 Neutrophils/100 WBC (Bld) 66.3 % 47-70 [facility] Nucleated red blood cell per centageOrdered By: Isaac Araujo on 12-10-2024 Nucleated RBC/100 WBC (Bld) [Ratio] 0 % 0-5 [facility] Platelet countOrdered By: Remington Araujo on 12-10-2024 Platelets (Bld) [#/Vol] 377 10*3/uL 150-450 [facility] Potassium measurement (mass/ volume)Ordered By: Isaac Araujo on 12-10-2024 Potassium (Unsp spec) [Mass/Vol] 3.9 mmol/L 3.3-5.1 [facility] RBC Auto (Bld) [#/Vol]Ordere d By: Isaac Araujo on 12-10-2024 RBC (Bld) [#/Vol] 4.45 10*6/uL 4.2-5.4 [facility] Serum creatinine measurement (mass/volume)Ordered By: Isaac Araujo on 12-10-2024 Creatinine [Mass/Vol] 1.08 mg/dL 0.70-1.20 [facility] Serum glucose measurement (m ass/volume)Ordered By: Isaac Araujo on 12-10-2024 Glucose [Mass/Vol] 126 mg/dL High 70-99 [facility] Serum or plasma calcium katerin urement (mass/volume)Ordered By: Isaac Araujo on 12-10-2024 Calcium [Mass/Vol] 8.9 mg/dL 7.6-11.0 [facility] Serum or plasma urea nitroge n measurement (mass/volume)Ordered By: Isaac Araujo on 12-10-2024 Urea nitrogen [Mass/Vol] 13 mg/dL 4-19 [facility] Sodium levelOrdered By: Letty Araujo on 12-10-2024 Sodium [Moles/Vol] 137 mmol/L 133-145 [facility] Troponin T.cardiac [Mass/vol ume] in Serum or Plasma by High sensitivity methodOrdered By: Isaac Araujo on 12-10-2024 Troponin T.cardiac High sensitivity method [Mass/Vol] 1980 ng/L High <14 [facility] Comment on above: Critical Result(s) C alled at: 0032 by: WALDO WOODARD TO TESHA RUSS. Results read back by same. White blood cell (WBC) count Ordered By: Isaac Araujo on 12-10-2024 WBC (Bld) [#/Vol] 11.3 10*3/uL High 4.4-11.0 [facility] TSH SerPl-aCncon 12-03-2024 TSH Qn 0.116 m[IU]/L Low 0.270-4.200 [facility] Comment on above: Order Comment: Speci men Type: BLOOD SPECIMENOrdering Facility: [facility] Address: [address] [place] [address] Performed By: #### 3 016-3 ####[facility] LABCLIA [id number] [place] [address] [place] Spine Cervical (Routine)on 0 11-19-2024 Spine Cervical (Routine) [facility] Imaging Services [address] [place] [address] Spine Cervical (Routine) MR#: [id number] Acct: [id number] Name: MAUREEN ANSARI ALYSHA Rep #: [id number] : 1955 F 69 From: Ravin Weinstein MD PCP: Care Physician,No Primary Status: REG CLI Study: Spine Cervical (Routine) Date of Exam: Exam# [id number] Ordering Dr: Brayden Underwood MD PROCEDURE: SPINE [...] Brayden Underwood MD; No Primary Care Physician Dental Specialist: Signed Normal [facility] 11-16-2024 [facility] Telephone (KelanSmappo) MAUREEN BARRON ([id number]) 1955 F CHT Date Time Provider Department 11/16/24 MARIANELA EDWARDS During your visit today, we recorded the following information about you: Desire Moss MA 11/16/2024 7:43 AM Signed ----- Message from Shari Erickson MA sent at 10/05/2024 7:26 AM EDT ----- Remind pt. Time to recheck TSH. MIGUEL Dawson Kimberly C, 11/16/2024 9:35 AM Signed Order DO Grace Alvarez Kimberly C, 11/16/2024 9:35 AM Signed Addended [...] for Visit: Lab Orders [1688] Primary Visit Diagnosis:Hypothyroi dism, acquired [E03.9] Order(s):THYROID STIMULATING HORMONE [SQTSH] Order #: [id number] FUTURE Prescriptions as of 11/16/2024 - amLODIPine [...] Status:Closed by DESIRE MOSS on 11/16/24 Normal [facility] Lipid 1996 panelon Cholesterol [Mass/Vol] 142 mg/dL Normal <200 [facility] Comment on above: Order Comment: Speci men Type: BLOOD SPECIMENOrdering Facility: [facility] Address: [address] [place] [address] Result Comment: <200 mg/dL, Desirable 200-239 mg/dL, Borderline high>239 mg/dL, High Performed By: #### 2 4331-1 ####[facility] LABCLIA [id number] [place] [address] [place] [facility] [id number] [place] [address] [place] Cholesterol in HDL [Mass/Vol] 53 mg/dL Normal >39 [facility] Comment on above: Order Comment: Cobyi cassius Type: BLOOD SPECIMENOrdering Facility: [facility] Address: [address] [place] [address] Result Comment: 40-5 9 mg/dL, Acceptable>59 mg/dL, High: Negative risk factor for coronary heart disease<40 mg/dL, Low: Positive risk factor for coronary heart disease Performed By: #### 2 4331-1 ####[facility] LABCLIA [id number] [address] [id number] [address] Cholesterol in LDL [Mass/Vol] 78 mg/dL Normal <100 [facility] Comment on above: Order Comment: Speci men Type: BLOOD SPECIMENOrdering Facility: [facility] Address: [address] [place] [address] Result Comment: <100 mg/dL, Optimal 100-129 mg/dL, Near optimal/above optimal 130-159 mg/dL, Borderline high 160-189 mg/dL, High>189 mg/dL, Very highSecondary prevention optimal LDL Cholesterol levels are recommended to be <70 mg/dLLDL cholesterol is calculated using the Gill-NIH equation. Performed By: #### 2 4331-1 ####[facility] LABIA [id number] [address] [id number] [place] [address] Cholesterol in LDL/Cholesterol in HDL [Mass ratio] 1.47 {ratio} Normal <2.54 [facility] Comment on above: Order Comment: Speci men Type: BLOOD SPECIMENOrdering Facility: [facility] Address: [address] [place] [address] Result Comment: Refe rence:1. National Cholesterol Education Program ATP III Guideline At-A-Glance Quick Desk Reference: National Heart, Lung, and Blood [place]. National Institutes of Health. 2001: NIH Publication No. 01-3305.2. An International Atherosclerosis Society position paper: global recommendations for the management of dyslipidemia: executive summary, Atherosclerosis. 2014: 232(2):410-413. Performed By: #### 2 4331-1 ####[facility] LABIA [id number] [address] [id number] [address] Cholesterol in VLDL [Mass/Vol] 8 mg/dL Normal <30 [facility] Comment on above: Order Comment: Speci men Type: BLOOD SPECIMENOrdering Facility: [facility] Address: [address] [place] [address] Performed By: #### 2 4331-1 ####[facility] LABCLIA [id number] [id number] [place] [address] [place] Cholesterol non HDL [Mass/Vol] 89 mg/dL Normal <130 [facility] Comment on above: Order Comment: Speci men Type: BLOOD SPECIMENOrdering Facility: [facility] Address: [address] [place] [address] Result Comment: <130 mg/dL, Optimal 130-159 mg/dL, Near optimal/above optimal 160-189 mg/dL, Borderline high 190-219 mg/dL, High>219 mg/dL, Very highSecondary prevention optimal non HDL Cholesterol levels are recommended to be <100 mg/dL Performed By: #### 2 4331-1 ####[facility] LABCLIA [id number] [address] [id number] [address] [facility] Cholesterol.total/Choles terol in HDL [Mass ratio] 2.68 {ratio} Normal <5.10 [facility] Comment on above: Order Comment: Speci men Type: BLOOD SPECIMENOrdering Facility: [facility] Address: [address] [place] [address] Performed By: #### 2 4331-1 ####[facility] LABCLIA [id number] [address] [place] [facility] [id number] [place] [address] [place] FASTING TIME 12 hrs Normal [facility] [facility] Comment on above: Order Comment: Speci men Type: BLOOD SPECIMENOrdering Facility: [facility] Address: [address] [place] [address] Performed By: #### 2 4331-1 ####[facility] LABCLIA [id number] [address] [id number] [place] [address] [place] Triglyceride [Mass/Vol] 53 mg/dL Normal <150 C [facility] Comment on above: Order Comment: Speci men Type: BLOOD SPECIMENOrdering Facility: [facility] Address: [address] [place] [address] Result Comment: <150 mg/dL, Normal 150-199 mg/dL, Borderline high 200-499 mg/dL, High>499 mg/dL, Very high Performed By: #### 2 4331-1 ####[facility] LABCLIA [id number] [address] [id number] [address] [place] Buzz 11-07-2024 DEBBY Telephone (SOFÍA) MAUREEN BARRON ([id number]) 1955 F T Date Time Provider Department 11/07/24 SHEETS, MARIANELA C AGFAMPLE During your visit today, we recorded the following information about you: Gloria Srinivasan MA 11/07/2024 4:21 PM Signed Cecy Amaral CHINCHILLA MACHINE OPERATOR who was out doing a home assessment on patient left message stating patient's BP today was elevated, left arm 180/88 and right arm 176/84. Patient's sister Leena also left message stating patient is willing to start on a BP medication now as her BP has been elevated for awhile. Requesting script be sent to [facility]. Please advise. MIGUEL Valladares Kimberly C, DO 11/08/2024 12:50 PM Addendum Spoke to pt - she would like to restart norvasc 10 mg daily and will f/u in 2 weeks for [place] BP Recheck DO Christopher Levy Brenda, LPN 11/08/2024 2:39 PM Signed Sent to [place] [facility]ist. Sharee White LPN Allergies As [...] Encounter Status:Closed by MARIANELA EDWARDS on 11/08/24 Normal [facility] CNOVon 11-06-2024 CNOV Normal [facility] CNPNon 10-29-2024 CNPN Telephone (AGFAMPLE) MAUREEN BARRON ([id number]) 1955 F T Date Time Provider Department 10/29/24 MARIANELA EDWARDS AGSAMEER During your visit today, we recorded the following information about you: Desire Moss MA 10/29/2024 7:40 AM Signed ----- Message from Shari Erickson MA sent at 07/31/2024 8:22 AM EST ----- FLP/CMP in 3 months DO Grace Levy Kimberly C, DO 10/29/2024 11:47 AM Signed Order attached DO Grace Levy Kimberly C, DO 10/29/2024 11:47 AM Signed Addended by: MARIANELA EDWARDS on: 10/29/2024 11:47 AM Modules accepted: Shari White MA 10/29/2024 12:03 PM Signed Patient notified. Shari López MA Allergies As of Date: 10/29/2024 (No Known Allergies) Date Reviewed: 09/25/2024 Reviewed by: Selene Haile OCCA - Fully Assessed Reason for Visit: Lab Orders [6928] Primary Visit Diagnosis:Hyperlipid emia, mixed [E78.2] Order(s):LIPID PANEL, FASTING [SQLIPB] Order #: [id number] FUTURE Prescriptions as of 10/29/2024 - levothyroxine [...] Encounter Status:Closed by DESIRE MOSS on 10/29/24 [facility] CTA ABD/PEL/LOWER EXT W IVCO Non 10-19-2024 CTA ABD/PEL/LOWER EXT W IVCON * * *Final Report* * * DATE OF EXAM: Oct 19 2024 2:18PM [facility] 0122 - CTA ABD/PEL/LOWER EXT W [...] multifocal calcifica (more content not included)... Normal [facility] CTA Abdominal, Pelvis and Lo wer extremity vessels W contrast Anayeli 10-19-2024 IMPRESSION: Multifocal moderate to high grade atherosclerotic disease as detailed above. Diminutive posterior tibial arteries likely variant for patient. Both legs mainly perfused by the anterior tibial artery. The peroneal artery is intermittently patent with multifocal calcifications. Dental Specialist: GARY Transcribe Date/Time: Oct 19 2024 4:04P Dictated by : GERRY SMITH MD This examination was interpreted and the report reviewed and electronically signed by: GERRY SMITH MD on Oct 19 2024 4:16PM [facility] RAD[facility] * * *Final Report* * * DATE OF EXAM: Oct 19 2024 2:18PM [facility] 0122 - CTA ABD/PEL/LOWER EXT W [...] nail fixation screw in the proximal femur [facility] [place] [facility] Provider, [facility] [place] - 10/19/2024 * * *Final Report* * * DATE OF EXAM: Oct 19 2024 2:18PM [facility] 0122 - CTA ABD/PEL/LOWER EXT W [...] detailed above. Diminutive posterior tibial arteries likely luis (more content not included)... [facility] Radiology Study observation (narrative) [facility] CTA Abdominal, Pelvis and Lo wer extremity vessels W contrast IVOrdered By: Ccf Provider on 10-19-2024 [facility] NURSING PROGon 10-19-2024 NURSING PROG HNO ID: [id number] Author: MARBELLA MARIE, TESHA Service: Radiology Author Type: Registered Nurse Type: [...] DATE: October 19, 2024 TIME: 1:56 PM Normal [facility] Neurology Visit Reporton Neurology Visit Report [facility] [address], [address] [place] [address] OFFICE VISIT Date of Service: 10/18/24 MR#: [id number] Acct: [id number] Name: MAUREEN BARRON Rep #: [id number] : 1955 Provider: Dr. Brayden garcia MD Age/Sex: 69/F Location: [facility].BN Status: Signed HPI HPI Chief Complaint: Establish Care Details: The patient is a 69-year-old right handed female who presents to [facility]. She was referred 08/03/[address] Jaziel Lin with [facility] for right carpal tunnel syndrome. This patient presents with her sister for evaluation. Patient is able to provide information on her own behalf. Sister also provided information. Outside records were reviewed. Patient indicates that she has had a rough life. She was homeless in [place] for a number of years. Patient had [...] Within the past year she moved to [facility] and has reestablished health care. Patient does [...] noted during a hospitalization in 2019 at [facility] in [place]. Patient had extensive workup for a variety of medical issues while at [facility] in [place]. She had presented with a concern for stroke based on a right facial droop. 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 Patient had been evaluated at [facility] for tingling [...] No marci (more content not included)... Normal [facility] CNOVon 09-25-2024 CNOV Normal [facility] CREATININE BLDOrdered By: Jan Connor on 09-25-2024 Creatinine [Mass/Vol] 1.19 mg/dL High 0.58 - 0.96 mg/dL [facility] GFR/1.73 sq M.predicted among non-blacks MDRD (S/P/Bld) [Vol rate/Area] 50 mL/min/{1.73_m2} Low - PINF [facility] Comment on above: Estimated Glomerular Filtration Rate [...] Interpretation and review of laboratory results Abnormal [facility] CREATININE BLDon 09-25-2024 Creatinine [Mass/Vol] 1.19 mg/dL High 0.58-0.96 [facility] Comment on above: Order Comment: Speci men Type: BLOOD SPECIMENOrdering Facility: [facility] Address: [address] [place] [address] Performed By: #### C RET1 ####[facility] [id number] [place] [address] [place] Creatinine and Glomerular filtration rate.predicted panel (S/P/Bld) 50 mL/min/1.73m??? Low >=60 [facility] Comment on above: Order Comment: Marika hammonds Type: BLOOD SPECIMENOrdering Facility: [facility] Address: [address] [place] [address] Result Comment: Maru mated Glomerular Filtration Rate [...] accurately reflect actual GFR. Performed By: #### C RET1 ####[facility] [id number] [place] [address] [place] TSH SerPl-aCncon 09-25-2024 TSH Qn 0.063 m[IU]/L Low 0.270-4.200 [facility] Comment on above: Order Comment: Marika hammonds Type: BLOOD SPECIMENOrdering Facility: [facility] Address: [address] [place] [address] Performed By: #### 3 016-3 ####[facility] LABCLIA [id number] [address] [place] Buzz 09-11-2024 CNPN Telephone (SOFÍA) MAUREEN ANSARI ([id number]) 1955 F T Date Time Provider Department 09/11/24 MARIANELA EDWARDS [...] Fully Assessed Reason for Visit: Lab Orders [5158] Primary Visit Diagnosis:Hypothyroi dism, acquired [E03.9] Order(s):THYROID STIMULATING HORMONE [SQTSH] Order #: [id number] FUTURE Prescriptions as of 09/18/2024 - levothyroxine [...] Encounter Status:Closed by SHARI LÓPEZ on 09/18/24 Normal [facility] BD DXA - AXIAL SKELETONon BD DXA - AXIAL SKELETON Normal C [facility] BRAD SCREENING W TOMOon 08-30 BRAD SCREENING W RONALD Normal [facility] PVR LEG RAMAN VAS LABon 2024 PVR LEG RAMAN VAS LAB Normal [facility] US VENOUS INCOMPETENCY RAMAN V LABon 08-29-2024 US VENOUS INCOMPETENCY RAMAN VAS LAB Normal [facility] CNOVon 07-31-2024 CNOV Normal [facility] CNPNon 07-30-2024 CNPN Telephone (RALEIGHFAMPLE) MAUREEN ANSARI Garcia ([id number]) 1955 F CHT Date Time Provider Department [...] Fully Assessed Reason for Visit: Lab Orders [4048] Prescriptions as of 07/31/2024 - levothyroxine (SYNTHROID) [...] Status:Closed by DESIRE MOSS on 07/30/24 Normal [facility] CNPNon 07-28-2024 CNPN Telephone (AGFAMPLE) MAUREEN ANSARI ([id number]) 1955 F CHT Date Time Provider Department 07/28/24 MARIANELA EDWARDS During your visit today, we recorded the following information about you: Marianela Edwards, 07/28/2024 11:39 AM Signed Called and spoke with patient about her blood work. Her TSH is elevated, FLP is elevated, and BUN is elevated. She does not want to take meds at this time, other than synthroid. Accidentally sent in Rx for synthroid 112 mcg, which she has not yet started. She has been taking synthroid 100 mcg. Advised pt to not fruit or nut picker the 112 mcg, will send in [...] Persaud LPN - Fully Assessed Primary Visit Diagnosis:Hyperlipid emia, mixed [E78.2] Other Visit Diagnosis:Hypothyroi dism, acquired [E03.9] Order(s):levothyroxi ne (SYNTHROID) 125 mcg tabletTake 1 tablet by [...] Encounter Status:Closed by MARIANELA EDWARDS on 07/28/24 [facility] CBC panel Auto (Bld)on 07-26 Erythrocyte distribution width (RBC) [Ratio] 13.1 % Normal 11.5-15.0 [facility] Comment on above: Order Comment: Speci men Type: BLOOD SPECIMENOrdering Facility: [facility] Address: [address] [place] [address] Performed By: #### 5 8410-2 ####[facility] [id number] [place] [address] [place] Hematocrit (Bld) [Volume fraction] 56.7 % High 36.0-46.0 [facility] Comment on above: Order Comment: Speci men Type: BLOOD SPECIMENOrdering Facility: [facility] Address: [address] [place] [address] Performed By: #### 5 8410-2 ####[facility] [id number] [place] [address] [place] Hemoglobin (Bld) [Mass/Vol] 18.8 g/dL High 11.5-15.5 [facility] Comment on above: Order Comment: Speci men Type: BLOOD SPECIMENOrdering Facility: [facility] Address: [address] [place] [address] Performed By: #### 5 8410-2 ####[facility] [id number] [place] [address] [place] MCH (RBC) [Entitic mass] 30.7 pg Normal 26.0-34.0 [facility] Comment on above: Order Comment: Speci men Type: BLOOD SPECIMENOrdering Facility: [facility] Address: [address] [place] [address] Performed By: #### 5 8410-2 ####[facility] [id number] [place] [address] [place] MCHC (RBC) [Mass/Vol] 33.2 g/dL Normal 30.5-36.0 [facility] Comment on above: Order Comment: Speci men Type: BLOOD SPECIMENOrdering Facility: [facility] Address: [address] [place] [address] Performed By: #### 5 8410-2 ####[facility] MARIEL [id number] [place] [address] [place] MCV (RBC) [Entitic vol] 92.6 fL Normal 80.0-100.0 C [facility] Comment on above: Order Comment: Speci men Type: BLOOD SPECIMENOrdering Facility: [facility] Address: [address] [place] [address] Performed By: #### 5 8410-2 ####[facility] CENTERLUIS ALBERTOLUISAGarcia [id number] [place] [address] [place] Nucleated RBC (Bld) [#/Vol] 10*3/uL Normal <0.01 [facility] Comment on above: Order Comment: Speci men Type: BLOOD SPECIMENOrdering Facility: [facility] Address: [address] [place] [address] Performed By: #### 5 8410-2 ####[facility] CENTERLUIS ALBERTOLUISAA [id number] [place] [address] [place] Platelet mean volume (Bld) [Entitic vol] 9.1 fL Normal 9.0-12.7 [facility] Comment on above: Order Comment: Speci men Type: BLOOD SPECIMENOrdering Facility: [facility] Address: [address] [place] [address] Performed By: #### 5 8410-2 ####[facility]ENTERNCLIA [id number] [place] [address] [place] Platelets (Bld) [#/Vol] 391 10*3/uL Normal 150-400 [facility] Comment on above: Order Comment: Speci men Type: BLOOD SPECIMENOrdering Facility: [facility] Address: [address] [place] [address] Performed By: #### 5 8410-2 ####[facility] CENTERWNCLIA [id number] [place] [address] [place] RBC (Bld) [#/Vol] 6.12 10*6/uL High 3.90-5.20 [facility] Comment on above: Order Comment: Speci men Type: BLOOD SPECIMENOrdering Facility: [facility] Address: [address] [place] [address] Performed By: #### 5 8410-2 ####[facility]ENTERNCLIA [id number] [place] [address] [place] WBC (Bld) [#/Vol] 10.52 10*3/uL Normal 3.70-11.00 [facility] Comment on above: Order Comment: Speci men Type: BLOOD SPECIMENOrdering Facility: [facility] Address: [address] [place] [address] Performed By: #### 5 8410-2 ####[facility]ENTERNCLIA [id number] [place] [address] [place] Comprehensive metabolic 2000 panelon 07-26-2024 Albumin [Mass/Vol] 4.4 g/dL Normal 3.9-4.9 [facility] Comment on above: Order Comment: Speci men Type: BLOOD SPECIMENOrdering Facility: [facility] Address: [address] [place] [address] Performed By: #### 2 4323-8 ####[facility]ENTERNCLIA [id number] [place] [address] [place] ALP [Catalytic activity/Vol] 96 U/L Normal 34-123 [facility] Comment on above: Order Comment: Speci men Type: BLOOD SPECIMENOrdering Facility: [facility] Address: [address] [place] [address] Performed By: #### 2 4323-8 ####[facility] MIAMITOWNCLIA [id number] [place] [address] [place] ALT [Catalytic activity/Vol] 15 U/L Normal 7-38 [facility] Comment on above: Order Comment: Speci men Type: BLOOD SPECIMENOrdering Facility: [facility] Address: [address] [place] [address] Performed By: #### 2 4323-8 ####[facility]ENTERWNCLIA [id number] [place] [address] [place] Anion gap [Moles/Vol] 9 mmol/L Normal 8-15 [facility] Comment on above: Order Comment: Speci men Type: BLOOD SPECIMENOrdering Facility: [facility] Address: [address] [place] [address] Performed By: #### 2 4323-8 ####[facility]ENTERNCLIA [id number] [place] [address] [place] AST [Catalytic activity/Vol] Normal [facility] Comment on above: Order Comment: Speci men Type: BLOOD SPECIMENOrdering Facility: [facility] Address: [address] [place] [address] Result Comment: Unab le to assay. Specimen significantly hemolyzed. Performed By: #### 2 4323-8 ####[facility]ENTERNCLIA [id number] [place] [address] [place] Bilirubin [Mass/Vol] 0.3 mg/dL Normal 0.2-1.3 [facility] Comment on above: Order Comment: Speci men Type: BLOOD SPECIMENOrdering Facility: [facility] Address: [address] [place] [address] Performed By: #### 2 4323-8 ####[facility]ENTERWNCLIA [id number] [place] [address] [place] Calcium [Mass/Vol] 10.4 mg/dL High 8.5-10.2 [facility] Comment on above: Order Comment: Speci men Type: BLOOD SPECIMENOrdering Facility: [facility] Address: [address] [place] [address] Performed By: #### 2 4323-8 ####[facility]ENTERNCLIA [id number] [place] [address] [place] Chloride [Moles/Vol] 99 mmol/L Normal 98-107 [facility] Comment on above: Order Comment: Speci men Type: BLOOD SPECIMENOrdering Facility: [facility] Address: [address] [place] [address] Performed By: #### 2 4323-8 ####[facility]ENTERNCLIA [id number] [place] [address] [place] CO2 [Moles/Vol] 30 mmol/L Normal 22-30 [facility] Comment on above: Order Comment: Speci men Type: BLOOD SPECIMENOrdering Facility: [facility] Address: [address] [place] [address] Performed By: #### 2 4323-8 ####[facility] [id number] [place] [address] [place] Creatinine [Mass/Vol] 1.48 mg/dL High 0.58-0.96 [facility] Comment on above: Order Comment: Speci men Type: BLOOD SPECIMENOrdering Facility: [facility] Address: [address] [place] [address] Performed By: #### 2 4323-8 ####[facility]ENTERNCLIA [id number] [place] [address] [place] Creatinine and Glomerular filtration rate.predicted panel (S/P/Bld) 39 mL/min/1.73m??? Low >=60 [facility] Comment on above: Order Comment: Speci men Type: BLOOD SPECIMENOrdering Facility: [facility] Address: [address] [place] [id number] Result Comment: Maru mated Glomerular Filtration Rate [...] actual GFR. Performed By: #### 2 4323-8 ####[facility] [id number] [place] [address] [place] Glucose [Mass/Vol] 118 mg/dL High 74-99 [facility] Comment on above: Order Comment: Speci men Type: BLOOD SPECIMENOrdering Facility: [facility] Address: [address] [place] [address] Result Comment: The [place] Diabetes Association (ADA) provides guidance for cutoff values for fasting glucose and random glucose. The ADA defines fasting as no caloric intake for at least 8 hours. Fasting plasma glucose results between 100 to 125 mg/dL indicate increased risk for diabetes (prediabetes).Fasting plasma glucose results greater than or equal to 126 mg/dL meet the criteria for diagnosis of diabetes. In the absence of unequivocal hyperglycemia, results should be confirmed by repeat testing. In a patient with classic symptoms of hyperglycemia or hyperglycemic crisis, random plasma glucose results greater than or equal to 200 mg/dL meet the criteria for diagnosis of diabetes.Reference: Standards of Medical Care in Diabetes 2016, [place] Diabetes Association. Diabetes Care. 2016.39(Suppl 1). Performed By: #### 2 4323-8 ####[facility] [id number] [place] [address] [place] Potassium [Moles/Vol] 4.3 mmol/L Normal 3.7-5.1 [facility] Comment on above: Order Comment: Speci men Type: BLOOD SPECIMENOrdering Facility: [facility] Address: [address] [place] [id number] Performed By: #### 2 4323-8 ####[facility] MILLWNCLIA [id number] [place] [address] [place] Protein [Mass/Vol] 8.0 g/dL Normal 6.3-8.0 [facility] Comment on above: Order Comment: Speci men Type: BLOOD SPECIMENOrdering Facility: [facility] Address: [address] [place] [address] Performed By: #### 2 4323-8 ####[facility]ENTERNCLIA [id number] [place] [address] [place] Sodium [Moles/Vol] 138 mmol/L Normal 136-144 [facility] Comment on above: Order Comment: Speci men Type: BLOOD SPECIMENOrdering Facility: [facility] Address: [address] [place] [address] Performed By: #### 2 4323-8 ####[facility] [id number] [place] [address] [place] Urea nitrogen [Mass/Vol] 26 mg/dL High 7-21 [facility] Comment on above: Order Comment: Speci men Type: BLOOD SPECIMENOrdering Facility: [facility] Address: [address] [place] [address] Performed By: #### 2 4323-8 ####[facility]ENTERNCLIA [id number] [place] [address] [place] Lipid 1996 panelon 5 Cholesterol [Mass/Vol] 261 mg/dL High <200 [facility] Comment on above: Order Comment: Speci men Type: BLOOD SPECIMENOrdering Facility: [facility] Address: [address] [place] [address] Result Comment: <200 mg/dL, Desirable 200-239 mg/dL, Borderline high>239 mg/dL, High Performed By: #### 3 016-3 ####[facility] LABCLIA [id number] [place] [address] [place]#### 38361-6 ####[facility] LABCLIA [id number] [address] [id number] [place] [address] [place] Cholesterol in HDL [Mass/Vol] 52 mg/dL Normal >39 [facility] Comment on above: Order Comment: Speci men Type: BLOOD SPECIMENOrdering Facility: [facility] Address: [address] [place] [address] Result Comment: 40-5 9 mg/dL, Acceptable>59 mg/dL, High: Negative risk factor for coronary heart disease<40 mg/dL, Low: Positive risk factor for coronary heart disease Performed By: #### 3 016-3 ####[facility] LABCLIA [id number] [place] [address] [place]#### 47572-0 ####[facility] LABCLIA [id number] [address] [id number] [place] [address] [place] Cholesterol in LDL [Mass/Vol] 189 mg/dL High <100 [facility] Comment on above: Order Comment: Speci men Type: BLOOD SPECIMENOrdering Facility: [facility] Address: [address] [place] [address] Result Comment: <100 mg/dL, Optimal 100-129 mg/dL, Near optimal/above optimal 130-159 mg/dL, Borderline high 160-189 mg/dL, High>189 mg/dL, Very highSecondary prevention optimal LDL Cholesterol levels are recommended to be < 70 mg/dL Performed By: #### 3 016-3 ####[facility] LABCLIA [id number] [address] [place]#### 25857-4 ####[facility] LABCLIA [id number] [address] [id number] [place] [address] [place] Cholesterol in LDL/Cholesterol in HDL [Mass ratio] 3.63 {ratio} High <2.54 [facility] Comment on above: Order Comment: Speci men Type: BLOOD SPECIMENOrdering Facility: [facility] Address: [address] [place] [address] Result Comment: Refe cooper:1. National Cholesterol Education Program ATP III Guideline At-A-Glance Quick Desk Reference: National Heart, Lung, and Blood [place]. National Institutes of Health. 2001: NIH Publication No. 01-3305.2. An International Atherosclerosis Society position paper: global recommendations for the management of dyslipidemia: executive summary, Atherosclerosis. 2014: 232(2):410-413. Performed By: #### 3 016-3 ####[facility] LABCLIA [id number] [place] [address] [place]#### 08077-2 ####[facility] LABCLIA [id number] [address] [id number] [place] [address] [place] Cholesterol in VLDL [Mass/Vol] 20 mg/dL Normal <30 [facility] [facility] Comment on above: Order Comment: Speci men Type: BLOOD SPECIMENOrdering Facility: [facility] Address: [address] [place] [address] Performed By: #### 3 016-3 ####[facility] [id number] [place] [address] [place]#### 50552-1 ####[facility] [id number] STATES OF [facility] [id number] [place] [address] [place] Cholesterol non HDL [Mass/Vol] 209 mg/dL High <130 [facility] Comment on above: Order Comment: Speci men Type: BLOOD SPECIMENOrdering Facility: [facility] Address: [address] [place] [address] Result Comment: <130 mg/dL, Optimal 130-159 mg/dL, Near optimal/above optimal 160-189 mg/dL, Borderline high 190-219 mg/dL, High>219 mg/dL, Very highSecondary prevention optimal non HDL Cholesterol levels are recommended to be <100 mg/dL Performed By: #### 3 016-3 ####[facility]CL[facility] [id number] [place] [address] [place]#### 74832-8 ####[facility] [id number] [address] STATES [facility] [id number] [place] [address] [place] Cholesterol.total/Choles terol in HDL [Mass ratio] 5.02 {ratio} Normal <5.10 [facility] Comment on above: Order Comment: Speci men Type: BLOOD SPECIMENOrdering Facility: [facility] Address: [address] [place] [address] Performed By: #### 3 016-3 ####[facility]CL[facility] [id number] [place] [address] [place]#### 12959-7 ####[facility] [id number] [address] STATES OF [facility] [id number] [place] [address] [place] FASTING TIME 12 hrs Normal [facility] Comment on above: Order Comment: Speci men Type: BLOOD SPECIMENOrdering Facility: [facility] Address: [address] [place] [address] Performed By: #### 3 016-3 ####[facility]CL[facility] [id number] [place] [address] [place]#### 68397-2 ####[facility] [id number] [address] STATES OF [facility] [id number] [place] [address] [place] Triglyceride [Mass/Vol] 99 mg/dL Normal <150 [facility] Comment on above: Order Comment: Speci men Type: BLOOD SPECIMENOrdering Facility: [facility] Address: [address] [place] [address] Result Comment: <150 mg/dL, Normal 150-199 mg/dL, Borderline high 200-499 mg/dL, High>499 mg/dL, Very high Performed By: #### 3 016-3 ####[facility]CLIA [id number] [place] [address] [place]#### 88529-0 ####[facility]CL[facility] [id number] [address] STATES [facility] [id number] [place] [address] [place] TSH SerPl-aCncon 07-26-2024 TSH Qn 20.000 m[IU]/L High 0.270-4.200 [facility] Comment on above: Order Comment: Speci men Type: BLOOD SPECIMENOrdering Facility: [facility] Address: [address] [place] [address] Performed By: #### 3 016-3 ####[facility]CL[facility] [id number] [address] [address] [place]#### 16616-2 ####[facility]CLIA [id number] [address] [address] [place] [facility] [id number] [address] OF [place] CNDSon 07-10-2024 CNDS HNO ID: [id number] Author: DARBY PETERSON MD Service: Hospital Medicine [...] Team: Attending Provider: Darby Peterson MD Attending: MR ESME DOE REASON FOR HOSPITALIZATION: Headache DIAGNOSIS: Principal Problem: [...] July 10, 2024 TIME: 12:41 PM Normal [facility] CBC panel Auto (Bld)on 07-09 Erythrocyte distribution width (RBC) [Ratio] 13.2 % Normal 11.5-15.0 [facility] Comment on above: Order Comment: Speci men Type: BLOOD SPECIMEN [facility] Address: [address] [place], [place] [address] [address] Performed By: #### 5 8410-2 #### [facility] CLIA [id number] [address] [place] [address] [place] Hematocrit (Bld) [Volume fraction] 53.5 % High 36.0-46.0 [facility] Comment on above: Order Comment: Speci men Type: BLOOD SPECIMEN [facility] Address: [address] [place] [address] Performed By: #### 5 8410-2 #### [facility] CLIA [id number] [address] [place] [address] [place] Hemoglobin (Bld) [Mass/Vol] 18.1 g/dL High 11.5-15.5 [facility] Comment on above: Order Comment: Speci men Type: BLOOD SPECIMEN [facility] Address: [address] [place] [address] Performed By: #### 5 8410-2 #### [facility] CLIA [id number] [address] [place] [address] [place] MCH (RBC) [Entitic mass] 31.4 pg Normal 26.0-34.0 [facility] Comment on above: Order Comment: Speci men Type: BLOOD SPECIMEN [facility] Address: [address] [place] [address] Performed By: #### 5 8410-2 #### [facility] CLIA [id number] [address] [place] [address] [place] MCHC (RBC) [Mass/Vol] 33.8 g/dL Normal 30.5-36.0 [facility] Comment on above: Order Comment: Speci men Type: BLOOD SPECIMEN [facility] Address: [address] [place] [address] Performed By: #### 5 8410-2 #### [facility] CLIA [id number] [address] [place] [address] [place] MCV (RBC) [Entitic vol] 92.7 fL Normal 80.0-100.0 [facility] Comment on above: Order Comment: Speci men Type: BLOOD SPECIMEN [facility] Address: [address] [id number] Performed By: #### 5 8410-2 #### [facility] CLIA [id number] [address] [place] [address] [place] Nucleated RBC (Bld) [#/Vol] 10*3/uL Normal <0.01 [facility] Comment on above: Order Comment: Speci men Type: BLOOD SPECIMEN [facility] Address: [address] [place] [address] Performed By: #### 5 8410-2 #### [facility] CLIA [id number] [address] [place] [address] [place] Platelet mean volume (Bld) [Entitic vol] 9.1 fL Normal 9.0-12.7 [facility] Comment on above: Order Comment: Speci men Type: BLOOD SPECIMEN [facility] Address: [address] [place] [address] Performed By: #### 5 8410-2 #### [facility] CLIA [id number] [address] [place] [address] [place] Platelets (Bld) [#/Vol] 307 10*3/uL Normal 150-400 [facility] Comment on above: Order Comment: Speci men Type: BLOOD SPECIMEN [facility] Address: [address] [place] [address] Performed By: #### 5 8410-2 #### [facility] CLIA [id number] [address] [place] [address] [place] RBC (Bld) [#/Vol] 5.77 10*6/uL High 3.90-5.20 [facility] Comment on above: Order Comment: Speci men Type: BLOOD SPECIMEN [facility] Address: [address] [place] [address] Performed By: #### 5 8410-2 #### [facility] CLIA [id number] [address] [place] [address] [place] WBC (Bld) [#/Vol] 11.43 10*3/uL High 3.70-11.00 [facility] Comment on above: Order Comment: Speci men Type: BLOOD SPECIMEN [facility] Address: [address] [place] [address] Performed By: #### 5 8410-2 #### [facility] CLIA [id number] [address] [place] [address] Calcium.ionized [Moles/Vol]o n 07-09-2024 Calcium.ionized (Bld) [Mass/Vol] 1.17 mmol/L Normal 1.08-1.30 [facility] Comment on above: Order Comment: Speci men Type: BLOOD SPECIMEN [facility] Address: [address] [place] [address] Performed By: #### 1 995-0 #### [facility] CLIA [id number] [address] [place] [address] Calcium.ionized adjusted to pH 7.4 (Bld) [Moles/Vol] 1.11 mmol/L Normal 1.08-1.30 [facility] Comment on above: Order Comment: Speci men Type: BLOOD SPECIMEN [facility] Address: [address] [place] [address] Performed By: #### 1 995-0 #### [facility] CLIA [id number] [address] [place] [address] OF [facility] Comprehensive metabolic 2000 panelon 07-09-2024 Albumin [Mass/Vol] 3.3 g/dL Normal 3.2-5.0 [facility] Comment on above: Order Comment: Speci men Type: BLOOD SPECIMEN [facility] Address: [address] [place] [address] Performed By: #### 3 3762-6, 48379-3, 3024-7, 3016-3, 2777-1, 68575-8 #### [facility] CLIA [id number] [address] [place] [address] [place] ALP [Catalytic activity/Vol] 88 U/L Normal 45-117 [facility] Comment on above: Order Comment: Speci men Type: BLOOD SPECIMEN [facility] Address: [address] [place] [address] Performed By: #### 3 3762-6, 77413-9, 3024-7, 3016-3, 2777-1, 46518-3 #### [facility] CLIA [id number] [address] [place] [address] [place] ALT [Catalytic activity/Vol] 10 U/L Low 13-61 [facility] Comment on above: Order Comment: Speci men Type: BLOOD SPECIMEN [facility] Address: [address] [place] [address] Result Comment: Resu lts may be falsely depressed after the administration of Sulfasalazine and/or Sulfapyridine. Performed By: #### 3 3762-6, 50692-0, 4-7, 3016-3, 2777-1, 46352-6 #### [facility] CLIA [id number] [address] [place] [address] [place] Anion gap [Moles/Vol] 4 mmol/L Low 5-16 [facility] Comment on above: Order Comment: Cobyi cassius Type: BLOOD SPECIMEN [facility] Address: [address] [place] [address] Performed By: #### 3 3762-6, 75158-8, 3024-7, 3016-3, 2777-1, 88882-6 #### [facility] CLIA [id number] [address] [place] [address] [place] AST [Catalytic activity/Vol] 15 U/L Normal 8-34 [facility] Comment on above: Order Comment: Cobyi men Type: BLOOD SPECIMEN [facility] Address: [address] [place] [address] Result Comment: Resu lts may be falsely depressed after the administration of Sulfasalazine and/or Sulfapyridine. Performed By: #### 3 3762-6, 32076-0, 3024-7, 3016-3, 2777-1, 07911-6 #### [facility] CLIA [id number] [address] [place], [place] [address] [place] Bilirubin [Mass/Vol] 0.6 mg/dL Normal 0.2-1.0 [facility] Comment on above: Order Comment: Speci men Type: BLOOD SPECIMEN [facility] Address: [address] [place] [address] Performed By: #### 3 3762-6, 35721-4, 3024-7, 3016-3, 2777-1, 59886-5 #### [facility] CLIA [id number] [address] [place], [place] [address] [place] Calcium [Mass/Vol] 10.0 mg/dL Normal 8.5-10.5 [facility] Comment on above: Order Comment: Speci men Type: BLOOD SPECIMEN [facility] Address: [address] [place] [address] Performed By: #### 3 3762-6, 05487-8, 3024-7, 3016-3, 2777-1, 94682-9 #### [facility] CLIA [id number] [address] [place] [address] [place] Chloride [Moles/Vol] 102 mmol/L Normal 98-107 [facility] Comment on above: Order Comment: Speci men Type: BLOOD SPECIMEN [facility] Address: [address] [place], [place] [address] Performed By: #### 3 3762-6, 17326-3, 3024-7, 3016-3, 2777-1, 35859-4 #### [facility] CLIA [id number] [address] [place], [place] [address] [place] CO2 [Moles/Vol] 30 mmol/L Normal 21-32 [facility] Comment on above: Order Comment: Speci men Type: BLOOD SPECIMEN [facility] Address: [address] [place] [address] Performed By: #### 3 3762-6, 62895-5, 3024-7, 3016-3, 2777-1, 10747-9 #### [facility] CLIA [id number] [address] [place], [place] [address] [place] Creatinine [Mass/Vol] 1.20 mg/dL High 0.51-0.95 [facility] Comment on above: Order Comment: Speci cassius Type: BLOOD SPECIMEN [facility] Address: [address] [place] [address] Result Comment: Misa ents receiving either N-Acetylcysteine (NAC) or Metamizole prior to venipuncture, may have falsely depressed results. Performed By: #### 3 3762-6, 26631-8, 3024-7, 3016-3, 2777-1, 60966-6 #### [facility] CLIA [id number] [address] [place] [address] [facility] Creatinine and Glomerular filtration rate.predicted panel (S/P/Bld) 50 mL/min/1.73m??? Low >=60 [facility] Comment on above: Order Comment: Marika hammonds Type: BLOOD SPECIMEN [facility] Address: [address] [place] [address] Result Comment: Maru mated Glomerular Filtration Rate [...] actual GFR. Performed By: #### 3 3762-6, 09327-1, 3024-7, 3016-3, 2777-1, 32628-7 #### [facility] CLIA [id number] [address] [place], [place] [address] [place] Glucose [Mass/Vol] 121 mg/dL High 70-100 [facility] Comment on above: Order Comment: Marika hammonds Type: BLOOD SPECIMEN [facility] Address: [address] [place], [place] [address] Result Comment: The [place] Diabetes Association (ADA) provides guidance for cutoff [...] Standards of Medical Care in Diabetes 2016, [place] [employer]. Diabetes Care. 2016.39(Suppl 1). Results may be falsely elevated after the administration of Sulfapyridine. Results may be falsely depressed after the administration of Sulfasalazine. Performed By: #### 3 3762-6, 77206-2, 3024-7, 3016-3, 2777-1, 44971-7 #### [facility] CLIA [id number] [address] [place], [place] [address] [place] Potassium [Moles/Vol] 3.9 mmol/L Normal 3.5-5.1 [facility] Comment on above: Order Comment: Marika hammonds Type: BLOOD SPECIMEN [facility] Address: [address] [place], [place] [address] Performed By: #### 3 3762-6, 10408-3, 3024-7, 3016-3, 2777-1, 61746-9 #### [facility] CLIA [id number] [address] [place], [place] [address] [place] Protein [Mass/Vol] 7.1 g/dL Normal 6.0-8.5 [facility] Comment on above: Order Comment: Marika hammonds Type: BLOOD SPECIMEN [facility] Address: [address] [place] [address] Performed By: #### 3 3762-6, 98767-4, 4-7, 3016-3, 2777-1, 37398-8 #### [facility] CLIA [id number] [address] [place] [address] [place] Sodium [Moles/Vol] 136 mmol/L Normal 136-145 [facility] Comment on above: Order Comment: Speci men Type: BLOOD SPECIMEN [facility] Address: [address] [place], [place] [address] Performed By: #### 3 3762-6, 39696-7, 3024-7, 3016-3, 2777-1, 28712-6 #### [facility] CLIA [id number] [address] [place], [place] [address] [place] Urea nitrogen [Mass/Vol] 13 mg/dL Normal 01-26 [facility] Comment on above: Order Comment: Speci men Type: BLOOD SPECIMEN [facility] Address: [address] [place], [place] [address] Performed By: #### 3 3762-6, 15300-0, 3024-7, 3016-3, 2777-1, 61083-0 #### [facility] CLIA [id number] [address] [place], [place] [address] [place] ECHOon 07-09-2024 Echocardiography Echocardiography Report: Transthoracic Echo [facility] Date of service: 07/09/2024 10:17:39 AM Ordering physician: FIDENCIO ADORNO Indication: Initial evaluation of Heart Failure Technologist: Conrad Serrano [facility] Interpreting physician: Kain Davis MD PATIENT: Name: [...] deceleration time is 263 msec. TRICUSPID VALVE Te-Moak tricuspid valve. There is no tricuspid stenosis. [...] * * Final * * * [employer] : [id number] [facility] HbA1c (Bld)on 07-09-2024 Average glucose Estimated from glycated hemoglobin (Bld) [Mass/Vol] 128 mg/dL [facility] Comment on above: Order Comment: Speci men Type: BLOOD SPECIMEN [facility] Address: [address] [place] [address] Result Comment: eAG: (Estimated average glucose) is a calculated value from HgbA1c and is sales representative leather goods of the average blood glucose level in the last 2-3 month period. Performed By: #### 5 8410-2 #### [facility] CLIA [id number] [address] [place] [address] [place] HbA1c (Bld) [Mass fraction] 6.1 % High 4.3-5.6 [facility] Comment on above: Order Comment: Marika hammonds Type: BLOOD SPECIMEN [facility] Address: [address] [place], [place] [address] Result Comment: [place] Diabetes Association guidelines indicate that patients with HgbA1c in the range 5.7-6.4% are at increased risk for development of diabetes, and intervention by lifestyle modification may be beneficial. HgbA1c greater or equal to 6.5% is considered diagnostic of diabetes. Performed By: #### 5 8410-2 #### [facility] CLIA [id number] [address] [place] [address] [place] Lactate (Bld) [Moles/Vol]on 07-09-2024 Lactate [Moles/Vol] 2.1 mmol/L High 0.4-2.0 [facility] Comment on above: Order Comment: Marika hammonds Type: BLOOD SPECIMENOrdering Facility: [facility] Address: [address] [place] [address] Performed By: #### 9 5941-1 #### [facility] CLIA [id number] [address] [place], [place] [address] [place] Magnesium SerPl-mCncon 07-09 Magnesium [Mass/Vol] 1.8 mg/dL Normal 1.6-2.6 [facility] Comment on above: Order Comment: Marika hammonds Type: BLOOD SPECIMEN [facility] Address: [address] [place] [address] Performed By: #### 3 3762-6, 50146-7, 3024-7, 3016-3, 2777-1, 18761-9 #### [facility] CLIA [id number] [address] [place] [address] [place] NT-proBNP SerPl-mCncon 07-09 Natriuretic peptide.B prohormone N-Terminal [Mass/Vol] 3229 pg/mL High <125 [facility] Comment on above: Order Comment: Marika hammonds Type: BLOOD SPECIMEN [facility] Address: [address] [place] [address] Result Comment: NT-p roBNP results of less than 300 pg/mL likely rules out acute congestive heart failure with 99% predictive value. NOTE: These cutoff points are suggested for ACUTE CHF DIAGNOSIS only Less than 50 years\X09\ Greater than 450 pg/mL 50 - 75 years\X09\\X09\ Greater than 900 pg/mL Greater than 75 years\X09\ Greater than 1800 pg/mL Performed By: #### 3 3762-6, 69082-5, 3024-7, 3016-3, 2777-1, 51364-1 #### [facility] CLIA [id number] [address] [place] [address] OF [facility] PT panel Coag (PPP)on 2024 INR Coag (PPP) [Relative time] 1.0 {INR} Normal 0.9-1.3 [facility] Comment on above: Order Comment: Speci men Type: BLOOD SPECIMEN [facility] Address: [address] [place] [address] Result Comment: Tisha min K Antagonist (VKA) Therapeutic Range: INR 2 to 3 (Target INR of 2.5) Note: For patients treated with VKA drugs, such as warfarin, the [place] [employer] 2012 Guideline recommends [...] to 3.5 (target INR of 3). Barbara GH, et al. Chest 2012, 141:7S-47S Conrad RA et al. [facility] 2017, 70: 252-289 Performed By: #### 3 4528-0, 55198-6 #### [facility] CLIA [id number] [address] [place], [place] [address] [place] PT Coag (PPP) [Time] 10.9 s Normal 9.7-13.0 [facility] Comment on above: Order Comment: Marika hammonds Type: BLOOD SPECIMEN [facility] Address: [address] [place] [address] Performed By: #### 3 4528-0, 78670-9 #### [facility] CLIA [id number] [address] [place] [address] [place] Phosphate SerPl-mCncon 07-09 Phosphate [Mass/Vol] 3.6 mg/dL Normal 2.5-4.9 [facility] Comment on above: Order Comment: Marika hammonds Type: BLOOD SPECIMENOrdering Facility: [facility] Address: [address] [place] [address] Result Comment: Elev ated m-protein (paraprotein) levels in the serum may be exhibited in patients with monoclonal gammopathies, causing falsely elevated inorganic phosphorus results. Performed By: #### 9 5941-1 #### [facility] CLIA [id number] [address] [place] [address] OF [place] Procalcitonin SerPl-mCncon 0 07-09-2024 Procalcitonin [Mass/Vol] 0.07 ng/mL Normal 0.00-0.50 [facility] Comment on above: Order Comment: Marika hammonds Type: BLOOD SPECIMENOrdering Facility: [facility] Address: [address] [place] [address] Result Comment: PCT Concentration Interpretation PCT <=0.1 [...] shock. Performed By: #### 9 5941-1 #### [facility] CLIA [id number] [address] [place] [address] [place] STAPHYLOCOCCUS AUREUS AND MR SA SCREEN, PCR, NASALon 07-09-2024 S. aureus and MRSA panel CELIA+probe (Nose) Not detected Normal Not Detected [facility] Comment on above: Order Comment: Speci men Type: SWABOrdering Facility: [facility] Address: [address] [place] [address] Performed By: #### [id number] #### [facility] CLIA [id number] [address] [place] [address] [place] T4 Free SerPl-mCncon 025 Free T4 [Mass/Vol] 1.0 ng/dL Normal 0.8-1.5 [facility] Comment on above: Order Comment: Speci men Type: BLOOD SPECIMEN Ordering Facility: [facility] Address: [address] [place] [address] Performed By: #### [id number], 14243-3, 3024-7, 3016-3, 2777-1, 21246-4 #### [facility] CLIA [id number] [address] [place] [address] [place] TOXICOLOGY SCREEN, ROUTINE U RINEon 07-09-2024 Amphetamines Confirm (U) [Mass/Vol] Positive Abnormal Negative [facility] Comment on above: Order Comment: Speci men Type: URINE SPECIMENOrdering Facility: [facility] Address: [address] [place] [address] Result Comment: Cuto ff threshold at 1000 ng/mL. Performed By: #### 9 5941-1 #### [facility] CLIA [id number] [address] [place] [address] [place] BARBITURATES, URINE Negative Normal Negative [facility] Comment on above: Order Comment: Speci men Type: URINE SPECIMENOrdering Facility: [facility] Address: [address] [place] [address] Result Comment: Cuto ff threshold at 200 ng/mL. Performed By: #### 9 5941-1 #### [facility] CLIA [id number] [address] [place] [address] [place] BENZODIAZEPINES, UR Negative Normal Negative [facility] Comment on above: Order Comment: Speci men Type: URINE SPECIMENOrdering Facility: [facility] Address: [address] [place] [address] Result Comment: Cuto ff threshold at 200 ng/mL. Performed By: #### 9 5941-1 #### [facility] CLIA [id number] [address] [place] [address] [place] Cannabinoids Screen Ql (U) Positive Abnormal Negative [facility] Comment on above: Order Comment: Speci men Type: URINE SPECIMENOrdering Facility: [facility] Address: [address] [place] [address] Result Comment: Cuto ff threshold at 50 ng/mL. Performed By: #### 9 5941-1 #### [facility] CLIA [id number] [address] [place] [address] [place] Cocaine Ql (U) Negative Normal Negative [facility] Comment on above: Order Comment: Speci men Type: URINE SPECIMENOrdering Facility: [facility] Address: [address] [place] [address] Result Comment: Cuto ff threshold at 300 ng/mL. Performed By: #### 9 5941-1 #### [facility] CLIA [id number] [address] [place] [address] [place] Opiates Screen Ql (U) Positive Abnormal Negative [facility] Comment on above: Order Comment: Speci men Type: URINE SPECIMENOrdering Facility: [facility] Address: [address] [place] [address] Result Comment: Cuto ff threshold at 300 ng/mL. Performed By: #### 9 5941-1 #### [facility] CLIA [id number] [address] [place] [address] [place] Phencyclidine Ql (U) Negative Normal Negative [facility] Comment on above: Order Comment: Speci men Type: URINE SPECIMENOrdering Facility: [facility] Address: [address] [place] [address] Result Comment: Cuto ff threshold at 25 ng/mL. Performed By: #### 9 5941-1 #### [facility] CLIA [id number] [address] [place] [address] TSH SerPl-aCncon 07-09-2024 TSH Qn 17.613 m[IU]/L High 0.358-3.740 [facility] Comment on above: Order Comment: Speci men Type: BLOOD SPECIMENOrdering Facility: [facility] Address: [address] [place] [address] Result Comment: 3rd generation ultra sensitive TSH. Performed By: #### 9 5941-1 #### [facility] CLIA [id number] [address] [place] [address] Urinalysis complete panel (U )on 07-09-2024 Bacteria LM.HPF (Urine sed) [#/Area] None Seen Normal None Seen [facility] Comment on above: Order Comment: Speci men Type: URINE SPECIMENOrdering Facility: [facility] Address: [address] [place] [address] Performed By: #### 9 5941-1 #### [facility] CLIA [id number] [address] [place] [address] Bilirubin Ql (U) Negative Normal Negative [facility] Comment on above: Order Comment: Speci men Type: URINE SPECIMENOrdering Facility: [facility] Address: [address] [place] [address] Performed By: #### 9 5941-1 #### [facility] CLIA [id number] [address] [place] [address] Clarity (Unsp spec) Clear Normal Clear [facility] Comment on above: Order Comment: Speci men Type: URINE SPECIMENOrdering Facility: [facility] Address: [address] [place] [address] Performed By: #### 9 5941-1 #### [facility] CLIA [id number] [address] [place] [address] Color (U) Yellow Normal Yellow [facility] Comment on above: Order Comment: Speci men Type: URINE SPECIMENOrdering Facility: [facility] Address: [address] [place] [address] Performed By: #### 9 5941-1 #### [facility] CLIA [id number] [address] [place] [address] [place] Epithelial cells LM.HPF (Urine sed) [#/Area] Few Normal [facility] Comment on above: Order Comment: Speci men Type: URINE SPECIMENOrdering Facility: [facility] Address: [address] [place] [address] Performed By: #### 9 5941-1 #### [facility] CLIA [id number] [address] [place] [address] [place] Glucose Test strip (U) [Mass/Vol] 1+ Abnormal Negative [facility] Comment on above: Order Comment: Speci men Type: URINE SPECIMENOrdering Facility: [facility] Address: [address] [place] [address] Performed By: #### 9 5941-1 #### [facility] CLIA [id number] [address] [place] [address] [place] Hemoglobin Ql (U) 1+ Abnormal Negative [facility] Comment on above: Order Comment: Speci men Type: URINE SPECIMENOrdering Facility: [facility] Address: [address] [place] [address] Performed By: #### 9 5941-1 #### [facility] CLIA [id number] [address] [place] [address] [place] Ketones Ql (U) Negative Normal Negative [facility] Comment on above: Order Comment: Speci men Type: URINE SPECIMENOrdering Facility: [facility] Address: [address] [place] [address] Performed By: #### 9 5941-1 #### [facility] CLIA [id number] [address] [place] [address] [place] Leukocyte esterase Test strip Ql (U) Negative Normal Negative [facility] Comment on above: Order Comment: Speci men Type: URINE SPECIMENOrdering Facility: [facility] Address: [address] [place] [address] Performed By: #### 9 5941-1 #### [facility] CLIA [id number] [address] [place] [address] [place] Nitrite Ql (U) Negative Normal Negative [facility] Comment on above: Order Comment: Speci men Type: URINE SPECIMENOrdering Facility: [facility] Address: [address] [place] [address] Performed By: #### 9 5941-1 #### [facility] CLIA [id number] [address] [place] [address] [place] pH (U) 6.0 [pH] Normal 5.0-8.0 [facility] Comment on above: Order Comment: Speci men Type: URINE SPECIMENOrdering Facility: [facility] Address: [address] [place] [address] Performed By: #### 9 5941-1 #### [facility] CLIA [id number] [address] [place] [address] [place] Protein (U) [Mass/Vol] 2+ Abnormal Negative [facility] Comment on above: Order Comment: Speci men Type: URINE SPECIMENOrdering Facility: [facility] Address: [address] [place] [address] Performed By: #### 9 5941-1 #### [facility] CLIA [id number] [address] [place] [address] [place] RBC LM.HPF (Urine sed) [#/Area] 3-5 /HPF Abnormal 0-3 /HPF [facility] Comment on above: Order Comment: Speci men Type: URINE SPECIMENOrdering Facility: [facility] Address: [address] [place] [address] Performed By: #### 9 5941-1 #### [facility] CLIA [id number] [address] [place] [address] [place] Specific gravity (U) [Rel density] >1.030 High 1.005-1.030 [facility] Comment on above: Order Comment: Speci men Type: URINE SPECIMENOrdering Facility: [facility] Address: [address] [place] [address] Performed By: #### 9 5941-1 #### [facility] CLIA [id number] [address] [place] [address] Urobilinogen Ql (U) Negative Normal Negative [facility] Comment on above: Order Comment: Speci men Type: URINE SPECIMENOrdering Facility: [facility] Address: [address] [place] [address] Performed By: #### 9 5941-1 #### [facility] CLIA [id number] [address] [place] [address] [place] WBC LM.HPF (Urine sed) [#/Area] 0-5 /HPF Normal 0-5 /HPF [facility] Comment on above: Order Comment: Speci men Type: URINE SPECIMENOrdering Facility: [facility] Address: [address] [place] [address] Performed By: #### 9 5941-1 #### [facility] CLIA [id number] [address] [place] [address] [place] XR CHEST 1V FRONTALon 2024 [...] osseous findings. IMPRESSION: No acute radiographic abnormality. Dental Specialist: GARY Transcribe Date/Time: Jul 09 2024 7:35A Dictated by : AMY PAIGE MD This examination was interpreted and the report reviewed and electronically signed by: AMY PAIGE MD on Jul 09 2024 7:35AM EST [id number] CN Normal [facility] aPTT PPPon 07-09-2024 aPTT Coag (PPP) [Time] 29.8 s Normal 23.0-32.4 [facility] Comment on above: Order Comment: Speci men Type: BLOOD SPECIMEN [facility] Address: [address] [place] [address] Performed By: #### 3 4528-0, 73741-0 #### [facility] CLIA [id number] [facility] [address] ALLIED HEALTHon 07-08-2024 ALLIED HEALTH HNO ID: [id number] Author: KIESHA HUTTON RT(R) Service: Radiology Author Type: Technologist [...] PATIENT PRESENTS WITH AN IMPLANTABLE OR ATTACHED MOP MAKER: No ALLERGIES: Reviewed and unchanged CONTRAST ALLERGY: [...] CTA Brain , and CTA Neck SIGNATURE: Kiesha Hutton, RT(R) PATIENT NAME: Maureen Barron DATE: July 08, 2024 TIME: 6:10 PM Normal [facility] Basic metabolic 2000 panelon 07-08-2024 Anion gap [Moles/Vol] 12 mmol/L Normal 8-15 [facility] Comment on above: Order Comment: Cobyi cassius Type: BLOOD SPECIMENOrdering Facility: [facility] Address: [address] [place] [address] Performed By: #### 2 4321-2 ####[facility] LABCLIA [id number] [place] [address] [place] Calcium [Mass/Vol] 10.4 mg/dL High 8.5-10.2 [facility] Comment on above: Order Comment: Marika hammonds Type: BLOOD SPECIMENOrdering Facility: [facility] Address: [address] [place] [address] Performed By: #### 2 4321-2 ####[facility] LABCLIA [id number] [place] [address] [place] Chloride [Moles/Vol] 96 mmol/L Low 98-107 [facility] Comment on above: Order Comment: Speci men Type: BLOOD SPECIMENOrdering Facility: [facility] Address: [address] [place] [address] Performed By: #### 2 4321-2 ####[facility] [place] LABCLIA [id number] [place] [address] [place] CO2 [Moles/Vol] 27 mmol/L Normal 22-30 [facility] Comment on above: Order Comment: Speci men Type: BLOOD SPECIMENOrdering Facility: [facility] Address: [address] [place] [address] Performed By: #### 2 4321-2 ####[facility] LABCLIA [id number] [place] [address] [place] Creatinine [Mass/Vol] 1.26 mg/dL High 0.58-0.96 [facility] Comment on above: Order Comment: Marika hammonds Type: BLOOD SPECIMENOrdering Facility: [facility] Address: [address] [place] [address] Performed By: #### 2 4321-2 ####[facility] LABCLIA [id number] [place] [id number] [facility] Creatinine and Glomerular filtration rate.predicted panel (S/P/Bld) 47 mL/min/1.73m??? Low >=60 [facility] Comment on above: Order Comment: Marika hammonds Type: BLOOD SPECIMENOrdering Facility: [facility] Address: [address] [place] [address] Result Comment: Maru mated Glomerular Filtration Rate [...] actual GFR. Performed By: #### 2 4321-2 ####[facility] [id number] [place] [address] [place] Glucose [Mass/Vol] 162 mg/dL High 74-99 [facility] Comment on above: Order Comment: Marika hammonds Type: BLOOD SPECIMENOrdering Facility: [facility] Address: [address] [place] [address] Result Comment: The [place] [employer] (ADA) provides guidance for cutoff [...] Standards of Medical Care in Diabetes 2016, [place] [employer]. Diabetes Care. 2016.39(Suppl 1). Performed By: #### 2 4321-2 ####[facility] LABCLIA [id number] [place] [address] [place] Potassium [Moles/Vol] 4.6 mmol/L Normal 3.7-5.1 [facility] Comment on above: Order Comment: Marika hammonds Type: BLOOD SPECIMENOrdering Facility: [facility] Address: [address] [place] [address] Performed By: #### 2 4321-2 ####[facility] LABCLIA [id number] [place] [address] [place] [facility] Sodium [Moles/Vol] 135 mmol/L Low 136-144 [facility] Comment on above: Order Comment: Marika hammonds Type: BLOOD SPECIMENOrdering Facility: [facility] Address: [address] [place] [address] Performed By: #### 2 4321-2 ####[facility] LABCLIA [id number] [place] [address] [place] Urea nitrogen [Mass/Vol] 16 mg/dL Normal 7-21 [facility] Comment on above: Order Comment: Marika hammonds Type: BLOOD SPECIMENOrdering Facility: [facility] Address: [address] [place] [address] Performed By: #### 2 4321-2 ####[facility] LABCLIA [id number] [place] [address] [place] CBC panel Auto (Bld)on 07-08 Erythrocyte distribution width (RBC) [Ratio] 13.1 % Normal 11.5-15.0 [facility] Comment on above: Order Comment: Speci men Type: BLOOD SPECIMENOrdering Facility: [facility] Address: [address] [place] [address] Performed By: #### 5 8410-2 ####[facility] [place] LABCLIA [id number] [place] [address] [facility] Hematocrit (Bld) [Volume fraction] 59.2 % High 36.0-46.0 [facility] Comment on above: Order Comment: Speci men Type: BLOOD SPECIMENOrdering Facility: [facility] Address: [address] [place] [address] Performed By: #### 5 8410-2 ####[facility] LABCLIA [id number] [place] [address] [facility] Hemoglobin (Bld) [Mass/Vol] 19.3 g/dL High 11.5-15.5 [facility] Comment on above: Order Comment: Speci men Type: BLOOD SPECIMENOrdering Facility: [facility] Address: [address] [place] [address] Performed By: #### 5 8410-2 ####[facility] LABCLIA [id number] [address] [place] MCH (RBC) [Entitic mass] 30.8 pg Normal 26.0-34.0 [facility] Comment on above: Order Comment: Speci men Type: BLOOD SPECIMENOrdering Facility: [facility] Address: [address] [place] [address] Performed By: #### 5 8410-2 ####[facility] [place] LABCLIA [id number] [place] [address] [place] MCHC (RBC) [Mass/Vol] 32.6 g/dL Normal 30.5-36.0 [facility] Comment on above: Order Comment: Speci men Type: BLOOD SPECIMENOrdering Facility: [facility] Address: [address] [place] [address] Performed By: #### 5 8410-2 ####[facility] [place] LABCLIA [id number] [place] [address] [place] MCV (RBC) [Entitic vol] 94.4 fL Normal 80.0-100.0 [facility] Comment on above: Order Comment: Speci men Type: BLOOD SPECIMENOrdering Facility: [facility] Address: [address] [place] [address] Performed By: #### 5 8410-2 ####[facility] [place] LABCLIA [id number] [place] [address] [place] Platelet mean volume (Bld) [Entitic vol] 9.4 fL Normal 9.0-12.7 [facility] Comment on above: Order Comment: Speci men Type: BLOOD SPECIMENOrdering Facility: [facility] Address: [address] [place] [address] Performed By: #### 5 8410-2 ####[facility] LABCLIA [id number] [place] [address] [place] Platelets (Bld) [#/Vol] 291 10*3/uL Normal 150-400 [facility] Comment on above: Order Comment: Speci men Type: BLOOD SPECIMENOrdering Facility: [facility] Address: [address] [place] [address] Performed By: #### 5 8410-2 ####[facility] LABCLIA [id number] [place] [address] [place] RBC (Bld) [#/Vol] 6.27 10*6/uL High 3.90-5.20 [facility] Comment on above: Order Comment: Speci men Type: BLOOD SPECIMENOrdering Facility: [facility] Address: [address] [place] [address] Performed By: #### 5 8410-2 ####[facility] [place] LABCLIA [id number] [place] [address] [place] WBC (Bld) [#/Vol] 13.94 10*3/uL High 3.70-11.00 [facility] Comment on above: Order Comment: Speci men Type: BLOOD SPECIMENOrdering Facility: [facility] Address: [address] [place] [address] Performed By: #### 5 8410-2 ####[facility] [id number] [place] [address] [place] [address] BRAIN WO IVCONon 07-08-19 CT BRAIN WO IVCON * * *Final Report* * * DATE OF EXAM: Jul 08 2024 6:11PM [facility] 0504 - CT BRAIN WO IVCON / [...] (DLP) for this visit = 1608.43 (accession [id number]), 1608.43 (accession [id number]), 706.22 (accession [id number]) mGy*cm. CT Dose Reduction Employed: No dose [...] appear t (more content not included)... Normal [facility] CTA HEAD W IVCONon CTA HEAD W IVCON * * *Final Report* * * DATE OF EXAM: Jul 08 2024 6:11PM [facility] 0022 - CTA HEAD W IVCON / [...] (DLP) for this visit = 1608.43 (accession [id number]), 1608.43 (accession [id number]), 706.22 (accession [id number]) mGy*cm. CT Dose Reduction Employed: No dose [...] appear th (more content not included)... Normal [facility] CTA NECK W IVCONon CTA NECK W IVCON * * *Final Report* * * DATE OF EXAM: Jul 08 2024 6:11PM [facility] 0024 - CTA NECK W IVCON / [...] (DLP) for this visit = 1608.43 (accession [id number]), 1608.43 (accession [id number]), 706.22 (accession [id number]) mGy*cm. CT Dose Reduction Employed: No dose [...] appear th (more content not included)... Normal [facility] ECG COMPLETEon 07-08-2024 ECG COMPLETE Ventricular Rate : 78 BPM Atrial Rate : 78 BPM P-R Interval : 306 ms QRS Duration : 104 ms Q-T Interval : 410 ms QTC Calculation(Bazett) : 467 ms Calculated P [place] : -48 degrees Calculated R [place] : -19 degrees Calculated T [place] : 17 degrees UNUSUAL P AXIS, POSSIBLE ECTOPIC ATRIAL RHYTHM MINIMAL VOLTAGE CRITERIA FOR LVH, MAY BE NORMAL VARIANT ( Jagjit product ) BORDERLINE J POINT ELEVATIONS IN ANETROSEPTAL LEADS, WITH T WAVE INVERSIONS ABNORMAL ECG NO PREVIOUS ECGS AVAILABLE CONSIDER SERIAL EKGS, AND CORRELATE WITH TROPONINS, CLINICAL HISTORY Confirmed by MD WBEER VINAYAK ([id number]) on 07/10/2024 9:15:17 AM NAME : MAUREEN HERZOG PID : [id number] : 1955 Gender : Female Race : Unknown ORD : [id number] Procedure Date : Jul 08 2024 16:55:42 Edit Date : Jul 10 2024 09:15:21 Diagnosis: UNUSUAL P AXIS, POSSIBLE ECTOPIC ATRIAL RHYTHM MINIMAL VOLTAGE CRITERIA FOR LVH, MAY BE NORMAL VARIANT ( Jagjit product ) BORDERLINE J POINT ELEVATIONS IN ANETROSEPTAL LEADS, WITH T WAVE INVERSIONS ABNORMAL ECG NO PREVIOUS ECGS AVAILABLE CONSIDER SERIAL EKGS, AND CORRELATE WITH TROPONINS, CLINICAL HISTORY Confirmed by MD WEBER VINAYAK ([id number]) on 07/10/2024 9:15:17 AM Test Reason : Chest Pain Location : 191 : [facility] ED Overread By : MD WEBER VINAYAK Edited By : MD WEBER VINAYAK Referred By : , Acquired by : SUKHI COLE [facility] ED NOTEon 07-08-2024 ED NOTE HNO ID: [id number] Author: LUCERO RAMSEY RN Service: Emergency Medicine Author Type: Registered Nurse Type: ED Notes Filed: 07/08/2024 22:31 Note Text: Patient requesting meds for pain to neck. Physician updated. [facility] ED NOTE HNO ID: [id number] Author: LUCERO RAMSEY RN Service: Emergency Medicine Author Type: Registered Nurse Type: ED Notes Filed: 07/08/2024 21:40 Note Text: Bed assignment [facility] icu-[address] Dr [place] [phone] [facility] 60-90mins [facility] ED NOTE HNO ID: [id number] Author: LUCERO RAMSEY RN Service: Emergency Medicine Author Type: Registered Nurse Type: ED Notes Filed: 07/08/2024 21:18 Note Text: Assumed care of patient. Patient awake and alert in bed. Continues to report pain to bilateral neck, unchanged from initial presentation. Updated with current POC. Monitor alarms blocker and cutter contact lens light in reach. [facility] ED NOTE HNO ID: [id number] Author: MERLE PENA, TESHA Service: Emergency Medicine Author Type: Registered Nurse Type: ED Notes Filed: 07/08/2024 21:03 Note Text: O2 sats dipping to 88-90% on r/a when sleeping. O2 2lpm via NC for support [facility] ED NOTE HNO ID: [id number] Author: LES KNOX, TESHA Service: ? Author Type: Registered Nurse Type: ED Notes Filed: 07/08/2024 19:58 Note Text: ICU doctor on line for to speak with Doctor Katie. [facility] ED NOTE HNO ID: [id number] Author: KRISS COLLINS RN Service: Nursing Author Type: Registered Nurse Type: ED Notes Filed: 07/08/2024 16:53 Note Text: EKG at bedside [facility] ED NOTE HNO ID: [id number] Author: KRISS COLLINS RN Service: Nursing Author Type: Registered Nurse Type: ED Notes Filed: 07/08/2024 16:15 Note Text: Has had neck pain radiating into her occiput x 2 days. She is unable to rotate her neck or extend or flex. She denies history of recent illness. She has had aneurysms in the past (2019) [facility] ED PROV NOTEon 07-08-2024 ED PROV NOTE HNO ID: [id number] Author: ALYSIA ELAM MD Service: Emergency Medicine [...] a history of aneurysm repairs done in [place] in 2019 it sounds like these are [...] for neck pain. Negative for back pain. Allergic/Immunologic : Negative for environmental allergies, food allergies and immunocompromised state. Neurological: Positive for headaches. Negative for syncope, weakness, light-headedness and numbness. Psychiatric/Behavior al: Negative for confusion. The patient is nervous/anxious. She is recently moved to [place] moved in with her sister states that she has been under a lot of stress with the break-up of her marriage that occurred in [place]. Physical Exam Vitals [07/08/24 1557] BP Pulse [...] maintain blood (more content not included)... Normal [facility] HIGH SENSITIVITY TROPONIN T (INITIAL)on 07-08-2024 Troponin T.cardiac High sensitivity method [Mass/Vol] 11 ng/L Normal <12 [facility] Comment on above: Order Comment: Speci men Type: BLOOD SPECIMENOrdering Facility: [facility] Address: [address] [place] [address] Performed By: #### L [id number] ####[facility] MAGYG LABCLIA [id number] [place] [address] [place] [facility] [place] HIGH SENSITIVITY TROPONIN T (SECOND)on 07-08-2024 Troponin T.cardiac High sensitivity method [Mass/Vol] 11 ng/L Normal <12 [facility] Comment on above: Order Comment: Speci men Type: BLOOD SPECIMENOrdering Facility: [facility] Address: [facility] [place] [address] Performed By: #### L [id number] ####[facility] LABCLIA [id number] [place] [address] [facility] HISTORY PHYSICALon HISTORY PHYSICAL HNO ID: [id number] Author: FIDENCIO ADORNO APRN.CNP Service: Critical Care Author Type: Nurse Practitioner Type: H&P Filed: 07/09/2024 00:46 Note Text: [facility] PULMONARY [facility]ITICAL [facility]ARE SERVICE DATE: July 08, 2024 SERVICE TIME: 12:30 AM HPI: This is a 68-year-old female with a past medical history significant for HTN, carotid endarterectomy, chronic internal carotid occlusion, previous cerebral aneurysm with repair who presents to [place] ED today with complaints of 2 days [...] risk of cerebral ischemia. Transport initiated to [facility] ICU. On arrival to ICU patient [...] with sister. She is just moved from [place]. Prior to that she was homeless after [...] once daily.Disp: Rfl: INPATIENT MEDICATIONS: No current facility-administere d medications for this encounter. Facility-Administere d Medications Ordered in Other Encounters Medication Dose [...] chest pain, sync (more content not included)... Normal [facility] CNOVon 06-25-2024 CNOV Office Visit (SOFÍA) MAUREEN BARRON ([id number]) 1955 F Date Time Provider Department 06/25/24 1:00 PM MARIANELA EDWARDS During your visit today, we recorded the following information about you: Temperature Pulse Respiration Blood pressure 97.7 degrees 58/minute 16/minute 118/72 Weight Height 54 kg 1.524 m Gloria Srinivasan MA 06/25/2024 1:25 PM Signed BONE MINERAL DENSITY PATIENT INSTRUCTIONS = Bone mineral density testing measures the amount [...] can resume your usual activities immediately. Marianela Edwards, 07/08/2024 8:52 AM Signed SUBJECTIVE: 68 year old female here with her sister to establish. I have fully reviewed the past medical, surgical, social and family history and updated the Histories section of [facility]. She has a history of carotid [...] mg by mouth once daily. No current facility-administere d medications for this visit. There is no [...] disturbance, mood disorder and recent psychosocial stressors HEMATOLOGY/LYMPHOLOG Y: Negative for prolonged bleeding, bruising easily or [...] normal, sep (more content not included)... Normal [facility] NCS and/or EMG Patienton NCS and/or EMG Patient [facility] Pulmonary Services/Neurology [address] [place] [address] MR#: [id number] Acct: [id number] Name: MAUREEN BARRON ALYSHA Rep #: [id number] : 1955 68 From: Hardeep Patrick MD Referring Dr: Jaziel Lin DO Status: REG C LI Location: [facility] Date: 06/13/24 Sex: F C [...] Multi Select Codes Neurology Neurology Interp Codes: 30034-10 Musc test done w/n test comp (interp) and 54834-98 Nrv cndj test 7- 8 studies (interp) 06/13/24 1311 Date Hardeep Patrick MD CC: Dr. Hardeep Patrick MD; Dr. Jaziel Lin, DO; No Primary Care Physician Date Dictated: 06/13/24 130 Date Transcribed: 06/13/241308 Dental Specialist: AA Signed Normal [facility] Basic Metabolic Profile (BMP )on 03-12-2024 BUN/CRE 15.0 RATIO Normal 10-20 [facility] Comment on above: Performed By: #### L 500.2500, L100.0100 ####[facility] [address] [place], [address] CA,Total 8.9 mg/dL Normal 8.5-10.1 [facility] Comment on above: Performed By: #### L 500.2500, L100.0100 ####[facility] [address] [place], [address] Chloride [Moles/Vol] 104 mmol/L Normal 98-107 [facility] Comment on above: Performed By: #### L 500.2500, L100.0100 ####[facility] [address] [place], [address] CO2 [Moles/Vol] 27.0 mmol/L Normal 21.0-32.0 [facility] Comment on above: Performed By: #### L 500.2500, L100.0100 ####[facility] [address] [place], [address] Creatinine [Mass/Vol] 0.94 mg/dL Normal 0.55-1.02 [facility] Comment on above: Result Comment: The validity of the calculated GFR GFRAA in patients over 70 years has not been determined. Clinical correlation is essential. Performed By: #### L 500.2500, L100.0100 ####[facility] [address] [place], [address] ECRCL 47.55 ml/min Normal [facility] Comment on above: Performed By: #### L 500.2500, L100.0100 ####[facility] [address] [place], [address] EST GFR - AA 77 mL/min Normal >60 [facility] Comment on above: Result Comment: Afri can Bangladeshi GFR Calc Performed By: #### L 500.2500, L100.0100 ####[facility] [address] [place], [address] GAP 5 Normal 5-15 [facility] Comment on above: Performed By: #### L 500.2500, L100.0100 ####[facility] [address] [place], [address] GFR/1.73 sq M.predicted among non-blacks MDRD (S/P/Bld) [Vol rate/Area] 63 mL/min/{1.73_m2} Normal >60 [facility] Comment on above: Result Comment: Non- GFR Calc Performed By: #### L 500.2500, L100.0100 ####[facility] [address] [place], [address] Glucose [Mass/Vol] 115 mg/dL High 74-106 [facility] Comment on above: Result Comment: Fast ing Glucose result from 100 to 125 mg/dL suggests IMPAIRED HOMEOSTASIS per A.D.A. criteria. Performed By: #### L 500.2500, L100.0100 ####[facility] [address] [place], [address] Potassium [Moles/Vol] 3.6 mmol/L Normal 3.5-5.1 [facility] Comment on above: Performed By: #### L 500.2500, L100.0100 ####[facility] [address] [place], [address] Sodium [Moles/Vol] 136 mmol/L Normal 136-145 [facility] Comment on above: Performed By: #### L 500.2500, L100.0100 ####[facility] [address] [place], [address] Urea nitrogen [Mass/Vol] 14 mg/dL Normal 7-18 [facility] Comment on above: Performed By: #### L 500.2500, L100.0100 ####[facility] [address] [place], [address] CBC W/Diff, Automatedon 09-0 9-2023 Absolute Lymph 1.09 X10 3/uL Normal 0.83-4.51 [facility] Comment on above: Performed By: #### L 500.2500, L100.0100 ####[facility] [address] [place], [address] Absolute Neut 5.3 X10 3/uL Normal 2.0-7.7 [facility] Comment on above: Performed By: #### L 500.2500, L100.0100 ####[facility] [address] [place], [address] Basophils/100 WBC (Bld) 0.4 % Normal 0-1 [facility] Comment on above: Performed By: #### L 500.2500, L100.0100 ####[facility] [address] [place], [address] Eosinophils/100 WBC (Bld) 3.7 % Normal 0-5 [facility] Comment on above: Performed By: #### L 500.2500, L100.0100 ####[facility] [address] [place], [address] Erythrocyte distribution width (RBC) [Ratio] 13.2 % Normal 11.6-14.6 [facility] Comment on above: Performed By: #### L 500.2500, L100.0100 ####[facility] [address] [place], [address] Hematocrit (Bld) [Volume fraction] 45.2 % Normal 37-47 [facility] Comment on above: Performed By: #### L 500.2500, L100.0100 ####[facility] [address] [place], [address] Hemoglobin (Bld) [Mass/Vol] 15.2 g/dL High 12.0-15.0 [facility] Comment on above: Performed By: #### L 500.2500, L100.0100 ####[facility] [address] [place], [address] IG% 0.500 Normal 0.0-0.9 [facility] Comment on above: Result Comment: IG% - Immature Granulocytes (promyelocytes, myelocytes and metamyelocytes) > 1% indicates that a LEFT SHIFT is Present. Performed By: #### L 500.2500, L100.0100 ####[facility] [address] [place], [address] Lymphocytes/100 WBC (Bld) 14.1 % Low 19-41 [facility] Comment on above: Performed By: #### L 500.2500, L100.0100 ####[facility] [address] [place], [address] MCH (RBC) [Entitic mass] 32.0 pg Normal 27.0-32.0 [facility] Comment on above: Performed By: #### L 500.2500, L100.0100 ####[facility] [address] [place], [address] MCHC (RBC) [Mass/Vol] 33.6 g/dL Normal 32-36 [facility] Comment on above: Performed By: #### L 500.2500, L100.0100 ####[facility] [address] [place], [address] MCV (RBC) [Entitic vol] 95.2 fL Normal 81-99 [facility] Comment on above: Performed By: #### L 500.2500, L100.0100 ####[facility] [address] [place], [address] Monocytes/100 WBC (Bld) 12.7 % High 0-10 [facility] Comment on above: Performed By: #### L 500.2500, L100.0100 ####[facility] [address] [place], [address] Neutrophils/100 WBC (Bld) 68.6 % Normal 47-70 [facility] Comment on above: Performed By: #### L 500.2500, L100.0100 ####[facility] [address] [place], [address] Nucleated RBC (Bld) [#/Vol] 0 10*3/uL Normal 0-5 [facility] Comment on above: Performed By: #### L 500.2500, L100.0100 ####[facility] [address] [place], [address] Platelet mean volume (Bld) [Entitic vol] 9.2 fL Normal 6.2-12.0 [facility] Comment on above: Performed By: #### L 500.2500, L100.0100 ####[facility] [address] [place], [address] Platelets (Bld) [#/Vol] 272 10*3/uL Normal 150-450 [facility] Comment on above: Performed By: #### L 500.2500, L100.0100 ####[facility] [address] [place], [address] RBC (Bld) [#/Vol] 4.75 10*6/uL Normal 4.2-5.4 [facility] Comment on above: Performed By: #### L 500.2500, L100.0100 ####[facility] [address] [place], [address] RDW SD 46.5 fl High 35.1-43.9 [facility] Comment on above: Performed By: #### L 500.2500, L100.0100 ####[facility] [address] [place], [address] WBC (Bld) [#/Vol] 7.7 10*3/uL Normal 4.4-11.0 [facility] Comment on above: Performed By: #### L 500.2500, L100.0100 ####[facility] [address] [place], [address] Basic Metabolic Profile (BMP )on 03-10-2024 BUN/CRE 17.0 RATIO Normal 10-20 [facility] Comment on above: Performed By: #### L 500.2500, L100.0100 ####[facility] [address] [place], [address] CA,Total 8.9 mg/dL Normal 8.5-10.1 [facility] Comment on above: Performed By: #### L 500.2500, L100.0100 ####[facility] [address] [place], [address] Chloride [Moles/Vol] 104 mmol/L Normal 98-107 [facility] Comment on above: Performed By: #### L 500.2500, L100.0100 ####[facility] [address] [place], [address] CO2 [Moles/Vol] 23.0 mmol/L Normal 21.0-32.0 [facility] Comment on above: Performed By: #### L 500.2500, L100.0100 ####[facility] [address] [place], [address] Creatinine [Mass/Vol] 1.06 mg/dL High 0.55-1.02 [facility] Comment on above: Result Comment: The validity of the calculated GFR GFRAA in patients over 70 years has not been determined. Clinical correlation is essential. Performed By: #### L 500.2500, L100.0100 ####[facility] [address] [place], [address] ECRCL 41.12 ml/min Normal [facility] Comment on above: Performed By: #### L 500.2500, L100.0100 ####[facility] [address] [place], [address] EST GFR - AA 66 mL/min Normal >60 [facility] Comment on above: Result Comment: Afri can Bangladeshi GFR Calc Performed By: #### L 500.2500, L100.0100 ####[facility] [address] [place], [address] GAP 6 Normal 5-15 [facility] Comment on above: Performed By: #### L 500.2500, L100.0100 ####[facility] [address] [place], [address] GFR/1.73 sq M.predicted among non-blacks MDRD (S/P/Bld) [Vol rate/Area] 55 mL/min/{1.73_m2} Low >60 [facility] Comment on above: Result Comment: Non- GFR Calc Performed By: #### L 500.2500, L100.0100 ####[facility] [address] [place], [address] Glucose [Mass/Vol] 132 mg/dL High 74-106 [facility] Comment on above: Result Comment: Fast ing Glucose result greater than or equal to 126 mg/dL suggests DIABETES MELLITUS per A.D.A. criteria. Performed By: #### L 500.2500, L100.0100 ####[facility] [address] [place], [address] Potassium [Moles/Vol] 3.9 mmol/L Normal 3.5-5.1 [facility] Comment on above: Performed By: #### L 500.2500, L100.0100 ####[facility] [address] [place], [address] Sodium [Moles/Vol] 133 mmol/L Low 136-145 [facility] Comment on above: Performed By: #### L 500.2500, L100.0100 ####[facility] [address] [place], [address] Urea nitrogen [Mass/Vol] 18 mg/dL Normal 7-18 [facility] Comment on above: Performed By: #### L 500.2500, L100.0100 ####[facility] [address] [place], [address] CBC W/Diff, Automatedon 09-0 Absolute Lymph 0.96 X10 3/uL Normal 0.83-4.51 [facility] Comment on above: Performed By: #### L 500.2500, L100.0100 ####[facility] [address] [place], [address] Absolute Neut 9.8 X10 3/uL High 2.0-7.7 [facility] Comment on above: Performed By: #### L 500.2500, L100.0100 ####[facility] [address] [place], [address] Basophils/100 WBC (Bld) 0.4 % Normal 0-1 [facility] Comment on above: Performed By: #### L 500.2500, L100.0100 ####[facility] [address] [place], [address] Eosinophils/100 WBC (Bld) 1.4 % Normal 0-5 [facility] Comment on above: Performed By: #### L 500.2500, L100.0100 ####[facility] [address] [place], [address] Erythrocyte distribution width (RBC) [Ratio] 13.2 % Normal 11.6-14.6 [facility] Comment on above: Performed By: #### L 500.2500, L100.0100 ####[facility] [address] [place], [address] Hematocrit (Bld) [Volume fraction] 49.3 % High 37-47 [facility] Comment on above: Performed By: #### L 500.2500, L100.0100 ####[facility] [address] [place], [address] Hemoglobin (Bld) [Mass/Vol] 16.2 g/dL High 12.0-15.0 [facility] Comment on above: Performed By: #### L 500.2500, L100.0100 ####[facility] [address] [place], [address] IG% 0.400 Normal 0.0-0.9 [facility] Comment on above: Result Comment: IG% - Immature Granulocytes (promyelocytes, myelocytes and metamyelocytes) > 1% indicates that a LEFT SHIFT is Present. Performed By: #### L 500.2500, L100.0100 ####[facility] [address] [place], [address] Lymphocytes/100 WBC (Bld) 7.9 % Low 19-41 [facility] Comment on above: Performed By: #### L 500.2500, L100.0100 ####[facility] [address] [place], [address] MCH (RBC) [Entitic mass] 31.1 pg Normal 27.0-32.0 [facility] Comment on above: Performed By: #### L 500.2500, L100.0100 ####[facility] [address] [place], [address] MCHC (RBC) [Mass/Vol] 32.9 g/dL Normal 32-36 [facility] Comment on above: Performed By: #### L 500.2500, L100.0100 ####[facility] [address] [place], [address] MCV (RBC) [Entitic vol] 94.6 fL Normal 81-99 [facility] Comment on above: Performed By: #### L 500.2500, L100.0100 ####[facility] [address] [place], [address] Monocytes/100 WBC (Bld) 8.9 % Normal 0-10 [facility] Comment on above: Performed By: #### L 500.2500, L100.0100 ####[facility] [address] [place], [address] Neutrophils/100 WBC (Bld) 81.0 % High 47-70 [facility] Comment on above: Performed By: #### L 500.2500, L100.0100 ####[facility] [address] [place], [address] Nucleated RBC (Bld) [#/Vol] 0 10*3/uL Normal 0-5 [facility] Comment on above: Performed By: #### L 500.2500, L100.0100 ####[facility] [address] [place], [address] Platelet mean volume (Bld) [Entitic vol] 9.5 fL Normal 6.2-12.0 [facility] Comment on above: Performed By: #### L 500.2500, L100.0100 ####[facility] [address] [place], [address] Platelets (Bld) [#/Vol] 203 10*3/uL Normal 150-450 [facility] Comment on above: Performed By: #### L 500.2500, L100.0100 ####[facility] [address] [place], [address] RBC (Bld) [#/Vol] 5.21 10*6/uL Normal 4.2-5.4 [facility] Comment on above: Performed By: #### L 500.2500, L100.0100 ####[facility] [address] [place], [address] RDW SD 46.5 fl High 35.1-43.9 [facility] Comment on above: Performed By: #### L 500.2500, L100.0100 ####[facility] [address] [place], [address] WBC (Bld) [#/Vol] 12.1 10*3/uL High 4.4-11.0 [facility] Comment on above: Performed By: #### L 500.2500, L100.0100 ####[facility] [address] [place], [address] Basic Metabolic Profile (BMP )on 03-09-2024 BUN/CRE 10.4 RATIO Normal 10-20 [facility] Comment on above: Performed By: #### L 100.0100, L500.2500 #### [facility] [address] [place], [address] CA,Total 9.2 mg/dL Normal 8.5-10.1 [facility] Comment on above: Performed By: #### L 100.0100, L500.2500 #### [facility] [address] [place], [address] Chloride [Moles/Vol] 101 mmol/L Normal 98-107 [facility] Comment on above: Performed By: #### L 100.0100, L500.2500 #### [facility] [address] [place], [address] CO2 [Moles/Vol] 24.0 mmol/L Normal 21.0-32.0 [facility] Comment on above: Performed By: #### L 100.0100, L500.2500 #### [facility] [address] [place], [address] Creatinine [Mass/Vol] 1.06 mg/dL High 0.55-1.02 [facility] Comment on above: Result Comment: The validity of the calculated GFR GFRAA in patients over 70 years has not been determined. Clinical correlation is essential. Performed By: #### L 100.0100, L500.2500 #### [facility] [address] [place], [address] ECRCL 41.22 ml/min Normal [facility] Comment on above: Performed By: #### L 100.0100, L500.2500 #### [facility] [address] [place], [address] EST GFR - AA 66 mL/min Normal >60 [facility] Comment on above: Result Comment: Afri can Bangladeshi GFR Calc Performed By: #### L 100.0100, L500.2500 #### [facility] [address] [place], [address] GAP 8 Normal 5-15 [facility] Comment on above: Performed By: #### L 100.0100, L500.2500 #### [facility] [address] [place], [address] GFR/1.73 sq M.predicted among non-blacks MDRD (S/P/Bld) [Vol rate/Area] 55 mL/min/{1.73_m2} Low >60 [facility] Comment on above: Result Comment: Non- GFR Calc Performed By: #### L 100.0100, L500.2500 #### [facility] [address] [place], [address] Glucose [Mass/Vol] 126 mg/dL High 74-106 [facility] Comment on above: Result Comment: Fast ing Glucose result greater than or equal to 126 mg/dL suggests DIABETES MELLITUS per A.D.A. criteria. Performed By: #### L 100.0100, L500.2500 #### [facility] [address] [place], [address] Potassium [Moles/Vol] 3.7 mmol/L Normal 3.5-5.1 [facility] Comment on above: Performed By: #### L 100.0100, L500.2500 #### [facility] [address] [place], [address] Sodium [Moles/Vol] 133 mmol/L Low 136-145 [facility] Comment on above: Performed By: #### L 100.0100, L500.2500 #### [facility] [address] [place], [address] Urea nitrogen [Mass/Vol] 11 mg/dL Normal 7-18 [facility] Comment on above: Performed By: #### L 100.0100, L500.2500 #### [facility] [address] [place], [address] CBC W/Diff, Automatedon 09-0 6-4 Absolute Lymph 1.75 X10 3/uL Normal 0.83-4.51 [facility] Comment on above: Performed By: #### L 100.0100, L500.2500 #### [facility] [address] [place], [address] Absolute Neut 10.8 X10 3/uL High 2.0-7.7 [facility] Comment on above: Performed By: #### L 100.0100, L500.2500 #### [facility] [address] [place], [address] Basophils/100 WBC (Bld) 0.6 % Normal 0-1 [facility] Comment on above: Performed By: #### L 100.0100, L500.2500 #### [facility] [address] [place], [address] Eosinophils/100 WBC (Bld) 0.6 % Normal 0-5 [facility] Comment on above: Performed By: #### L 100.0100, L500.2500 #### [facility] [address] [place], [address] Erythrocyte distribution width (RBC) [Ratio] 13.2 % Normal 11.6-14.6 [facility] Comment on above: Performed By: #### L 100.0100, L500.2500 #### [facility] [address] [place], [address] Hematocrit (Bld) [Volume fraction] 52.6 % High 37-47 [facility] Comment on above: Performed By: #### L 100.0100, L500.2500 #### [facility] [address] [place], [address] Hemoglobin (Bld) [Mass/Vol] 17.4 g/dL High 12.0-15.0 [facility] Comment on above: Performed By: #### L 100.0100, L500.2500 #### [facility] [address] [place], [address] IG% 0.400 Normal 0.0-0.9 [facility] Comment on above: Result Comment: IG% - Immature Granulocytes (promyelocytes, myelocytes and metamyelocytes) > 1% indicates that a LEFT SHIFT is Present. Performed By: #### L 100.0100, L500.2500 #### [facility] [address] [place], [address] Lymphocytes/100 WBC (Bld) 12.3 % Low 19-41 [facility] Comment on above: Performed By: #### L 100.0100, L500.2500 #### [facility] [address] [place], [address] MCH (RBC) [Entitic mass] 31.3 pg Normal 27.0-32.0 [facility] Comment on above: Performed By: #### L 100.0100, L500.2500 #### [facility] [address] [place], [address] MCHC (RBC) [Mass/Vol] 33.1 g/dL Normal 32-36 [facility] Comment on above: Performed By: #### L 100.0100, L500.2500 #### [facility] [address] [place], [address] MCV (RBC) [Entitic vol] 94.6 fL Normal 81-99 [facility] Comment on above: Performed By: #### L 100.0100, L500.2500 #### [facility] [address] [place], [address] Monocytes/100 WBC (Bld) 9.9 % Normal 0-10 [facility] Comment on above: Performed By: #### L 100.0100, L500.2500 #### [facility] [address] [place], [address] Neutrophils/100 WBC (Bld) 76.2 % High 47-70 [facility] Comment on above: Performed By: #### L 100.0100, L500.2500 #### [facility] [address] [place], [address] Nucleated RBC (Bld) [#/Vol] 0 10*3/uL Normal 0-5 [facility] Comment on above: Performed By: #### L 100.0100, L500.2500 #### [facility] [address] [place], [address] Platelet mean volume (Bld) [Entitic vol] 9.8 fL Normal 6.2-12.0 [facility] Comment on above: Performed By: #### L 100.0100, L500.2500 #### [facility] [address] [place], [address] Platelets (Bld) [#/Vol] 246 10*3/uL Normal 150-450 [facility] Comment on above: Performed By: #### L 100.0100, L500.2500 #### [facility] [address] [place], [address] RBC (Bld) [#/Vol] 5.56 10*6/uL High 4.2-5.4 [facility] Comment on above: Performed By: #### L 100.0100, L500.2500 #### [facility] [address] [place], [address] RDW SD 46.2 fl High 35.1-43.9 [facility] Comment on above: Performed By: #### L 100.0100, L500.2500 #### [facility] [address] [place], [address] WBC (Bld) [#/Vol] 14.2 10*3/uL High 4.4-11.0 [facility] Comment on above: Performed By: #### L 100.0100, L500.2500 #### [facility] [address] [place], [address] CORTISOL SERUMon 03-09-2024 CORTISOL 14.80 ug/dL Normal 3.44-22.45 [facility] Comment on above: Result Comment: Adul t (AM) 5.27 - 22.45 ug/dL Adult (PM) 3.44 - 16.76 ug/dL Performed By: #### L 509.6000 ####[facility] [id number] [place], [address] Phosphoruson 03-09-2024 Phosphate [Mass/Vol] 2.4 mg/dL Low 2.5-4.9 [facility] Comment on above: Performed By: #### L 100.0100, L500.2500 #### [facility] [address] [place], [address] CBC W/Diff, Automatedon 09-0 -2023 Absolute Lymph 1.69 X10 3/uL Normal 0.83-4.51 [facility] Comment on above: Performed By: #### L 300.4310 #### [facility] [address] [place], [address] Absolute Neut 8.1 X10 3/uL High 2.0-7.7 [facility] Comment on above: Performed By: #### L 300.4310 #### [facility] [address] [place], [address] Basophils/100 WBC (Bld) 0.6 % Normal 0-1 [facility] Comment on above: Performed By: #### L 300.4310 #### [facility] [address] [place], [address] Eosinophils/100 WBC (Bld) 1.1 % Normal 0-5 [facility] Comment on above: Performed By: #### L 300.4310 #### [facility] [address] [place], [address] Erythrocyte distribution width (RBC) [Ratio] 13.3 % Normal 11.6-14.6 [facility] Comment on above: Performed By: #### L 300.4310 #### [facility] [address] [place], [address] Hematocrit (Bld) [Volume fraction] 49.2 % High 37-47 [facility] Comment on above: Performed By: #### L 300.4310 #### [facility] [address] [place], [address] Hemoglobin (Bld) [Mass/Vol] 16.5 g/dL High 12.0-15.0 [facility] Comment on above: Performed By: #### L 300.4310 #### [facility] [address] [place], [address] IG% 0.500 Normal 0.0-0.9 [facility] Comment on above: Result Comment: IG% - Immature Granulocytes (promyelocytes, myelocytes and metamyelocytes) > 1% indicates that a LEFT SHIFT is Present. Performed By: #### L 300.4310 #### [facility] [address] [place], [address] Lymphocytes/100 WBC (Bld) 15.3 % Low 19-41 [facility] Comment on above: Performed By: #### L 300.4310 #### [facility] [address] [place], [address] MCH (RBC) [Entitic mass] 31.7 pg Normal 27.0-32.0 [facility] Comment on above: Performed By: #### L 300.4310 #### [facility] [address] [place], [address] MCHC (RBC) [Mass/Vol] 33.5 g/dL Normal 32-36 [facility] Comment on above: Performed By: #### L 300.4310 #### [facility] [address] [place], [address] MCV (RBC) [Entitic vol] 94.4 fL Normal 81-99 [facility] Comment on above: Performed By: #### L 300.4310 #### [facility] [address] [place], [address] Monocytes/100 WBC (Bld) 9.3 % Normal 0-10 [facility] Comment on above: Performed By: #### L 300.4310 #### [facility] [address] [place], [address] Neutrophils/100 WBC (Bld) 73.2 % High 47-70 [facility] Comment on above: Performed By: #### L 300.4310 #### [facility] [address] [place], [address] Nucleated RBC (Bld) [#/Vol] 0 10*3/uL Normal 0-5 [facility] Comment on above: Performed By: #### L 300.4310 #### [facility] [address] [place], [address] Platelet mean volume (Bld) [Entitic vol] 9.4 fL Normal 6.2-12.0 [facility] Comment on above: Performed By: #### L 300.4310 #### [facility] [address] [place], [address] Platelets (Bld) [#/Vol] 292 10*3/uL Normal 150-450 [facility] Comment on above: Performed By: #### L 300.4310 #### [facility] [address] [place], [address] RBC (Bld) [#/Vol] 5.21 10*6/uL Normal 4.2-5.4 [facility] Comment on above: Performed By: #### L 300.4310 #### [facility] [address] [place], [address] RDW SD 46.5 fl High 35.1-43.9 [facility] Comment on above: Performed By: #### L 300.4310 #### [facility] [address] [place], [address] WBC (Bld) [#/Vol] 11.0 10*3/uL Normal 4.4-11.0 [facility] Comment on above: Performed By: #### L 300.4310 #### [facility] [address] [place], [address] Comprehensive Metabolic Prof ilon 03-08-2024 Albumin [Mass/Vol] 3.3 g/dL Normal 3.2-5.0 [facility] Comment on above: Performed By: #### L 300.4310 #### [facility] [address] [place], [address] Albumin/Globulin [Mass ratio] 0.8 {ratio} Low 0.9-2.4 [facility] Comment on above: Performed By: #### L 300.4310 #### [facility] [address] [place], [address] ALK P 73 U/L Normal 45-117 [facility] Comment on above: Performed By: #### L 300.4310 #### [facility] [address] [place], [address] ALT [Catalytic activity/Vol] 22 U/L Normal 13-56 [facility] Comment on above: Performed By: #### L 300.4310 #### [facility] [address] [place], [address] AST [Catalytic activity/Vol] 26 U/L Normal 15-37 [facility] Comment on above: Performed By: #### L 300.4310 #### [facility] [address] [place], [address] Bilirubin [Mass/Vol] 0.60 mg/dL Normal 0.20-1.00 [facility] Comment on above: Result Comment: For patients on eltrombopag therapy, use of Dimension [place] TBIL is not recommended. Performed By: #### L 300.4310 #### [facility] [address] [place], [address] BUN/CRE 13.2 RATIO Normal 10-20 [facility] Comment on above: Performed By: #### L 300.4310 #### [facility] [address] [place], [address] CA,Total 8.5 mg/dL Normal 8.5-10.1 [facility] Comment on above: Performed By: #### L 300.4310 #### [facility] [address] [place], [address] Chloride [Moles/Vol] 106 mmol/L Normal 98-107 [facility] Comment on above: Performed By: #### L 300.4310 #### [facility] [address] [place], [address] CO2 [Moles/Vol] 24.0 mmol/L Normal 21.0-32.0 [facility] Comment on above: Performed By: #### L 300.4310 #### [facility] [address] [place], [address] Creatinine [Mass/Vol] 1.44 mg/dL High 0.55-1.02 [facility] Comment on above: Result Comment: The validity of the calculated GFR GFRAA in patients over 70 years has not been determined. Clinical correlation is essential. Performed By: #### L 300.4310 #### [facility] [address] [place], [address] ECRCL 30.56 ml/min Normal [facility] Comment on above: Performed By: #### L 300.4310 #### [facility] [address] [place], [address] EST GFR - AA 47 mL/min Low >60 [facility] Comment on above: Result Comment: Afri can Bangl[place] GFR Calc Performed By: #### L 300.4310 #### [facility] [address] [place], [address] GAP 7 Normal 5-15 [facility] Comment on above: Performed By: #### L 300.4310 #### [facility] [address] [place], [address] GFR/1.73 sq M.predicted among non-blacks MDRD (S/P/Bld) [Vol rate/Area] 39 mL/min/{1.73_m2} Low >60 [facility] Comment on above: Result Comment: Non- GFR Calc Performed By: #### L 300.4310 #### [facility] [address] [place], [address] Globulin (S) [Mass/Vol] 3.9 g/dL Normal 2.2-4.2 [facility] Comment on above: Performed By: #### L 300.4310 #### [facility] [address] [place], [address] Glucose [Mass/Vol] 134 mg/dL High 74-106 [facility] Comment on above: Result Comment: Fast ing Glucose result greater than or equal to 126 mg/dL suggests DIABETES MELLITUS per A.D.A. criteria. Performed By: #### L 300.4310 #### [facility] [address] [place], [address] Potassium [Moles/Vol] 3.7 mmol/L Normal 3.5-5.1 [facility] Comment on above: Performed By: #### L 300.4310 #### [facility] [address] [place], [address] Sodium [Moles/Vol] 137 mmol/L Normal 136-145 [facility] Comment on above: Performed By: #### L 300.4310 #### [facility] [address] [place], [address] T PROT 7.2 g/dL Normal 6.4-8.2 [facility] Comment on above: Performed By: #### L 300.4310 #### [facility] [address] [place], [place], [address] Urea nitrogen [Mass/Vol] 19 mg/dL High 7-18 [facility] Comment on above: Performed By: #### L 300.4310 #### [facility] [address] [place], [place], [address] Consultation - Orthopedicson 03-08-2024 Consultation - Orthopedics [facility] Medical Records Department [address] [place] [address] Consultation - Orthopedics 03/08/24 1159 MR#: [id number] Acct: [id number] Name: MAUREEN ANSARI ALYSHA Rep #: [id number] : 1955 68 From: Jaziel Lin DO PCP: Care Physician,No Primary Status:ADM IN [place] [facility] [id number] HPI Consult Data Date of Consult: 03/08/24 [...] left hip fracture 4 years ago in [place]. She denies any numbness or tingling. Patient's [...] for physical and Occupational Therapy possible placement. [facility] Medical History CKD (chronic kidney disease) Cannabis [...] History (Updated 03/08/24 @ 00:[address] Teer Brown MD) household members: family Smoking Status: [...] Air Room Air 03/07/24 21:00 03/07/24 21:07 09/04/24 22:00 Temperature 97.8 F Temperature Source Pulse [...] 09:35 Temperature (more content not included)... Normal [facility] Magnesiumon 03-08-2024 Magnesium [Mass/Vol] 2.1 mg/dL Normal 1.6-2.6 [facility] Comment on above: Order Comment: Comme nts: may add to ED labs Performed By: #### L 100.0100, L500.2500 #### [facility] [address] [place], [place], [address] Phosphoruson 03-08-2024 Phosphate [Mass/Vol] 2.8 mg/dL Normal 2.5-4.9 [facility] Comment on above: Performed By: #### L 501.2300 ####[facility] [id number] [place], [place], [address] T4 Free Directon 03-08-2024 T4 FREE DIRECT 1.05 ng/dL Normal 0.76-1.46 [facility] Comment on above: Performed By: #### L 100.0100, L500.2500 #### [facility] [address] [place], [address] Thyroid Stim Hormone (TSH)on 03-08-2024 TSH 41.400 uIU/mL High 0.358-3.740 [facility] Comment on above: Performed By: #### L 300.4310 #### [facility] [address] [place], [address] 12 Lead EKGon 03-07-2024 12 Lead EKG [facility] Cardiovascular Services [address] [place] [address] 12 Lead EKG 03/07/24 2152 MR#: [id number] Acct: [id number] Name: MAUREEN ANSARI Rep #: [id number] : 1955 68 From: Sedrick Alcaraz MD Attending Dr: Dr. Isaias Rincon MD Status: ADM IN Ordering Dr: Isela Isaac DO Date: 03/07/24 [place] [facility] [place]: F C Admitted: 03/07/24 Test Reason [...] Abnormal ECG Confirmed by SEDRICK ALCARAZ MD ([id number]), film editor supervisor MARIBEL DE SANTIAGO ([id number]) on 03/08/2024 1:51:51 PM Referred By: Confirmed By:SEDRICK ALCARAZ MD 03/08/24 4651 Date Sedrick Alcaraz MD CC: Dr. Isaias Rincon MD; Dr. Isela Isaac DO; No Primary Care Physician Signed Normal [facility] Basic Metabolic Profile (BMP )on 03-07-2024 BUN/CRE 13.0 RATIO Normal 10-20 [facility] Comment on above: Performed By: #### L 100.0100, L500.2500 #### [facility] [address] [place], [address] CA,Total 9.2 mg/dL Normal 8.5-10.1 [facility] Comment on above: Performed By: #### L 100.0100, L500.2500 #### [facility] [address] [place], [address] Chloride [Moles/Vol] 104 mmol/L Normal 98-107 [facility] Comment on above: Performed By: #### L 100.0100, L500.2500 #### [facility] [address] [place], [address] CO2 [Moles/Vol] 27.0 mmol/L Normal 21.0-32.0 [facility] Comment on above: Performed By: #### L 100.0100, L500.2500 #### [facility] [address] [place], [address] Creatinine [Mass/Vol] 1.61 mg/dL High 0.55-1.02 [facility] Comment on above: Result Comment: The validity of the calculated GFR GFRAA in patients over 70 years has not been determined. Clinical correlation is essential. Performed By: #### L 100.0100, L500.2500 #### [facility] [address] [place], [address] ECRCL 24.36 ml/min Normal [facility] Comment on above: Performed By: #### L 100.0100, L500.2500 #### [facility] [address] [place], [address] EST GFR - AA 41 mL/min Low >60 [facility] Comment on above: Result Comment: Afri can [place] GFR Calc Performed By: #### L 100.0100, L500.2500 #### [facility] [address] [place], [address] GAP 7 Normal 5-15 [facility] Comment on above: Performed By: #### L 100.0100, L500.2500 #### [facility] [address] [place], [address] GFR/1.73 sq M.predicted among non-blacks MDRD (S/P/Bld) [Vol rate/Area] 34 mL/min/{1.73_m2} Low >60 [facility] Comment on above: Result Comment: Non- GFR Calc Performed By: #### L 100.0100, L500.2500 #### [facility] [address] [place], [address] Glucose [Mass/Vol] 110 mg/dL High 74-106 [facility] Comment on above: Result Comment: Fast ing Glucose result from 100 to 125 mg/dL suggests IMPAIRED HOMEOSTASIS per A.D.A. criteria. Performed By: #### L 100.0100, L500.2500 #### [facility] [address] [place], [address] Potassium [Moles/Vol] 3.0 mmol/L Low 3.5-5.1 [facility] Comment on above: Performed By: #### L 100.0100, L500.2500 #### [facility] [address] [place], [address] Sodium [Moles/Vol] 138 mmol/L Normal 136-145 [facility] Comment on above: Performed By: #### L 100.0100, L500.2500 #### [facility] [address] [place], [address] Urea nitrogen [Mass/Vol] 21 mg/dL High 7-18 [facility] Comment on above: Performed By: #### L 100.0100, L500.2500 #### [facility] [address] [place], [address] CBC W/Diff, Automatedon 09-0 4-2023 Absolute Lymph 1.44 X10 3/uL Normal 0.83-4.51 [facility] Comment on above: Performed By: #### L 100.0100, L500.2500 #### [facility] [address] [place], [address] Absolute Neut 6.8 X10 3/uL Normal 2.0-7.7 [facility] Comment on above: Performed By: #### L 100.0100, L500.2500 #### [facility] [address] [place], [address] Basophils/100 WBC (Bld) 1.1 % High 0-1 [facility] Comment on above: Performed By: #### L 100.0100, L500.2500 #### [facility] [address] [place], [address] Eosinophils/100 WBC (Bld) 1.3 % Normal 0-5 [facility] Comment on above: Performed By: #### L 100.0100, L500.2500 #### [facility] [address] [place], [address] Erythrocyte distribution width (RBC) [Ratio] 13.3 % Normal 11.6-14.6 [facility] Comment on above: Performed By: #### L 100.0100, L500.2500 #### [facility] [address] [place], [address] Hematocrit (Bld) [Volume fraction] 51.2 % High 37-47 [facility] Comment on above: Performed By: #### L 100.0100, L500.2500 #### [facility] [address] [place], [address] Hemoglobin (Bld) [Mass/Vol] 17.1 g/dL High 12.0-15.0 [facility] Comment on above: Performed By: #### L 100.0100, L500.2500 #### [facility] [address] [place], [address] IG% 0.300 Normal 0.0-0.9 [facility] Comment on above: Result Comment: IG% - Immature Granulocytes (promyelocytes, myelocytes and metamyelocytes) > 1% indicates that a LEFT SHIFT is Present. Performed By: #### L 100.0100, L500.2500 #### [facility] [address] [place], [address] Lymphocytes/100 WBC (Bld) 15.7 % Low 19-41 [facility] Comment on above: Performed By: #### L 100.0100, L500.2500 #### [facility] [address] [place], [address] MCH (RBC) [Entitic mass] 31.3 pg Normal 27.0-32.0 [facility] Comment on above: Performed By: #### L 100.0100, L500.2500 #### [facility] [address] [place], [address] MCHC (RBC) [Mass/Vol] 33.4 g/dL Normal 32-36 [facility] Comment on above: Performed By: #### L 100.0100, L500.2500 #### [facility] [address] [place], [address] MCV (RBC) [Entitic vol] 93.8 fL Normal 81-99 [facility] Comment on above: Performed By: #### L 100.0100, L500.2500 #### [facility] [address] [place], [address] Monocytes/100 WBC (Bld) 8.1 % Normal 0-10 [facility] Comment on above: Performed By: #### L 100.0100, L500.2500 #### [facility] [address] [place], [address] Neutrophils/100 WBC (Bld) 73.5 % High 47-70 [facility] Comment on above: Performed By: #### L 100.0100, L500.2500 #### [facility] [address] [place], [address] Nucleated RBC (Bld) [#/Vol] 0 10*3/uL Normal 0-5 [facility] Comment on above: Performed By: #### L 100.0100, L500.2500 #### [facility] [address] [place], [address] Platelet mean volume (Bld) [Entitic vol] 8.9 fL Normal 6.2-12.0 [facility] Comment on above: Performed By: #### L 100.0100, L500.2500 #### [facility] [address] [place], [address] Platelets (Bld) [#/Vol] 311 10*3/uL Normal 150-450 [facility] Comment on above: Performed By: #### L 100.0100, L500.2500 #### [facility] [address] [place], [address] RBC (Bld) [#/Vol] 5.46 10*6/uL High 4.2-5.4 [facility] Comment on above: Performed By: #### L 100.0100, L500.2500 #### [facility] [address] [place], [address] RDW SD 45.8 fl High 35.1-43.9 [facility] Comment on above: Performed By: #### L 100.0100, L500.2500 #### [facility] [address] [place], [address] WBC (Bld) [#/Vol] 9.2 10*3/uL Normal 4.4-11.0 [facility] Comment on above: Performed By: #### L 100.0100, L500.2500 #### [facility] [address] [place], [address] Emergency Department Summary on 03-07-2024 Emergency Department Summary [facility] Medical Records Department [address] [place] [address] Emergency Department Summary 03/07/24 MR#: [id number] Acct: [id number] Name: MAUREEN ANSARI ALYSHA Rep #: [id number] : 1955 68 From: Isela Isaac DO PCP: Care Physician,No Primary Status:ADM IN Location: [address] History of Present Illness Chief Complaint: [...] her left hip after a fracture in [place] 4 years ago. She does not have a primary care physician. [facility] Medical History (Updated 03/07/24 @ 21:28 [...] Endocrine Endocrinology: Denies polydipsia, polyphagia or polyuria Hematologic/Lymphati c Hematologic/Lymphati c: Denies easy bleeding, easy bruising or lymphadenopathy [...] no t (more content not included)... Normal [facility] H AND P Exam - Hospitaliston 03-07-2024 H&P Exam - Hospitalist [facility] Medical Records Department [address] [facility] [place] [address] H P Exam - Hospitalist 03/07/242121 MR#: [id number] Acct: [id number] Name: MAUREEN ANSARI ALYSHA Rep #: [id number] : 1955 68 From: Tere Brown MD PCP: Care Physician,No Primary Status:ADM IN [place] [facility] [id number] HPI - General General Date of Admission: 03/07/24 Date of Service: 03/07/24 Chief Complaint: Fall, left leg pain. HPI Narrative The patient is a 68 y/o F w/ PMHx: Tobacco use, HTN, HLD, Hypothyroidism, Carotid disease status post right CEA who presents to the [facility] ED on 03/07/24 with history [...] a fracture remotely 4 years ago in [place]. She denies having any primary care physician [...] GFR 34 with no clear comparisons unfortunately. [facility] Medical History CKD (chronic kidney disease) Cannabis [...] Normal Respiratory (more content not included)... Normal [facility] Knee 1 or 2 Viewson 03-07-20 Knee 1 or 2 Views [facility] Imaging Services [address] [place] [address] Knee 1 or 2 Views MR#: [id number] Acct: [id number] Name: MAUREEN BARRON Rep #: [id number] : 1955 F 68 From: Oral grimaldo DO PCP: Care Physician,No Primary Status: PRE ER Study: Knee 1 or 2 Views Date of Exam: 03/07/24 Exam# [id number] Ordering Dr: Isela Isaac DO [id number] EXAM: XR LEFT KNEE, 1 OR 2 [...] Isela Isaac DO; No Primary Care Physician Dental Specialist: Signed Normal [facility] Tibia Fibula 2 Viewson 03-07 Tibia Fibula 2 Views [facility] Imaging Services [address] [place] [address] Tibia Fibula 2 Views MR#: [id number] Acct: [id number] Name: MAUREEN BARRON Rep #: [id number] : 1955 F 68 From: Oral grimaldo DO PCP: Care Physician,No Primary Status: PRE ER Study: Tibia Fibula 2 Views Date of Exam: 03/07/24 Exam# [id number] Ordering Dr: Isela Isaac DO [id number] EXAM: XR LEFT TIBIA AND FIBULA, 2 [...] at 20:32 EDT , CC: Dr. Isela Isaac DO; No Primary Care Physician Dental Specialist: Signed Normal [facility] Vital Signs Date Time Vital Sign Value Performing Clinician Facility 01-07-2025 23:15-0400 Diastolic blood pressure 71 mm[Hg] No Primary Care Physician [facility] 01-07-2025 23:15-0400 Heart rate 54 /min No Primary Care Physician [facility] 01-07-2025 23:15-0400 Respiratory rate 23 /min No Primary Care Physician [facility] 01-07-2025 23:15-0400 SaO2% (BldA) [Mass fraction] 96 % No Primary Care Physician [facility] 01-07-2025 23:15-0400 Systolic blood pressure 96 mm[Hg] No Primary Care Physician [facility] 01-07-2025 22:42-0400 Body temperature 98.6 [degF] No Primary Care Physician [facility] 01-07-2025 17:00-0400 Inhaled oxygen flow rate 3 L/min No Primary Care Physician [facility] 01-07-2025 14:47-0400 Body height 152.4 cm No Primary Care Physician [facility] 01-07-2025 14:47-0400 Body mass index (BMI) [Ratio] 23.8 kg/m2 No Primary Care Physician [facility] 01-07-2025 14:47-0400 Body weight 55.3 kg No Primary Care Physician [facility] 12-13-2024 14:18-0400 Body temperature 98.3 [degF] No Primary Care Physician [facility] 12-13-2024 14:18-0400 Diastolic blood pressure 46 mm[Hg] No Primary Care Physician [facility] 12-13-2024 14:18-0400 Heart rate 77 /min No Primary Care Physician [facility] 12-13-2024 14:18-0400 Inhaled oxygen flow rate 3 L/min No Primary Care Physician [facility] 12-13-2024 14:18-0400 Respiratory rate 19 /min No Primary Care Physician [facility] 12-13-2024 14:18-0400 SaO2% (BldA) [Mass fraction] 94 % No Primary Care Physician [facility] 12-13-2024 14:18-0400 Systolic blood pressure 90 mm[Hg] No Primary Care Physician [facility] 12-13-2024 04:52-0400 Body mass index (BMI) [Ratio] 22.9 kg/m2 No Primary Care Physician [facility] 12-13-2024 04:52-0400 Body weight 53.1 kg No Primary Care Physician [facility] 12-12-2024 04:00-0400 Inhaled oxygen concentration 40 % No Primary Care Physician [facility] 12-11-2024 14:12-0400 Body height 152.4 cm No Primary Care Physician [facility] 12-11-2024 02:59-0400 Diastolic blood pressure 70 mm[Hg] No Primary Care Physician [facility] 12-11-2024 02:59-0400 Heart rate 80 /min No Primary Care Physician [facility] 12-11-2024 02:59-0400 Inhaled oxygen concentration 60 % No Primary Care Physician [facility] 12-11-2024 02:59-0400 Respiratory rate 21 /min No Primary Care Physician [facility] 12-11-2024 02:59-0400 SaO2% (BldA) [Mass fraction] 97 % No Primary Care Physician [facility] 12-11-2024 02:59-0400 Systolic blood pressure 125 mm[Hg] No Primary Care Physician [facility] 12-11-2024 02:27-0400 Body temperature 98.2 [degF] No Primary Care Physician [facility] 12-11-2024 01:32-0400 Inhaled oxygen flow rate 6 L/min No Primary Care Physician [facility] 12-10-2024 23:36-0400 Body mass index (BMI) [Ratio] 24.3 kg/m2 No Primary Care Physician [facility] 12-10-2024 23:36-0400 Body weight 56.6 kg No Primary Care Physician [facility] 12-10-2024 23:24-0400 Body height 152.4 cm No Primary Care Physician [facility] 11-06-2024 10:24-0400 Diastolic blood pressure 108 mm[Hg] Argenis Nagy DO Work Phone: [facility] Comment on above: manual BPdr notified 11-06-2024 10:24-0400 Heart rate 93 /min Argenis Arriolale DO Work Phone: [facility] 11-06-2024 10:24-0400 SaO2% (BldA) [Mass fraction] 96 % Argenis Nagy Victorious Work Phone: [facility] 11-06-2024 10:24-0400 Systolic blood pressure 190 mm[Hg] Argenis Nagy DO Work Phone: [facility] Comment on above: manual BPdr notified 10-18-2024 09:57-0400 Body mass index (BMI) [Ratio] 22.8 kg/m2 No Primary Care Physician [facility] 10-18-2024 09:57-0400 Body temperature 98.4 [degF] No Primary Care Physician [facility] 10-18-2024 09:57-0400 Body weight 53.07 kg No Primary Care Physician [facility] 10-18-2024 09:57-0400 Diastolic blood pressure 78 mm[Hg] No Primary Care Physician [facility] 10-18-2024 09:57-0400 Heart rate 91 /min No Primary Care Physician [facility] 10-18-2024 09:57-0400 Respiratory rate 16 /min No Primary Care Physician [facility] 10-18-2024 09:57-0400 SaO2% (BldA) [Mass fraction] 95 % No Primary Care Physician [facility] 10-18-2024 09:57-0400 Systolic blood pressure 116 mm[Hg] No Primary Care Physician [facility] 09-25-2024 09:28-0400 Diastolic blood pressure 78 mm[Hg] Argenis Arriolale DO Work Phone: [facility] 09-25-2024 09:28-0400 Heart rate 83 /min Argenis Nagy DO Work Phone: [facility] 09-25-2024 09:28-0400 SaO2% (BldA) [Mass fraction] 96 % Argenis Nagy DO Work Phone: [facility] 09-25-2024 09:28-0400 Systolic blood pressure 157 mm[Hg] Argenis Nagy DO Work Phone: [facility] 07-31-2024 08:58-0500 Diastolic blood pressure 84 mm[Hg] Argenis Nagy DO Work Phone: [facility] 07-31-2024 08:58-0500 Systolic blood pressure 156 mm[Hg] Argenis Nagy DO Work Phone: [facility] 07-31-2024 08:50-0500 Heart rate 80 /min Argenis Nagy DO Work Phone: [facility] 07-31-2024 08:50-0500 SaO2% (BldA) [Mass fraction] 95 % Argenis Arriolale DO Work Phone: [facility] 06-25-2024 13:23-0500 Body height 152.4 cm Marianela Sheets DO Work Phone: [facility] 06-25-2024 13:23-0500 Body mass index (BMI) [Ratio] 23.24 kg/m2 Marianela Sheets DO Work Phone: [facility] 06-25-2024 13:23-0500 Body temperature 97.7 [degF] Marianela Sheets DO Work Phone: [facility] 06-25-2024 13:23-0500 Body weight 53.98 kg Marianela Sheets DO Work Phone: [facility] 06-25-2024 13:23-0500 Diastolic blood pressure 72 mm[Hg] Marianela Sheets DO Work Phone: [facility] 06-25-2024 13:23-0500 Heart rate 58 /min Marianela Sheets DO Work Phone: [facility] 06-25-2024 13:23-0500 Respiratory rate 16 /min Marianela Sheets DO Work Phone: [facility] 06-25-2024 13:23-0500 SaO2% (BldA) [Mass fraction] 98 % Marianela Sheets DO Work Phone: [facility] 06-25-2024 13:23-0500 Systolic blood pressure 118 mm[Hg] Marianela Sheets DO Work Phone: [facility] Encounters Encounter Date Encounter Type Care Provider Facility Start: 01-07-2025 Evaluation and management of inpatient Dr. Hamilton Mehta DO -[facility] Work Phone: Start: 01-07-2025 End: 01-07-2025 Refill Stevan Madera MD Work Phone: [facility] Comment on above: Refill Request Refill Request (Ator vastatin.) BP Med Start: 01-06-2025 End: 01-06-2025 Telephone encounter Maribel Meyer APRN.INSURANCE MARKETING SPECIALIST Work Phone: Cardiothoracic Start: 01-03-2025 End: 01-03-2025 Evaluation and management of inpatient [facility] Work Phone: Cardiology Start: 12-19-2024 End: 12-20-2024 ambulatory Marianela C Sheets DO Work Phone: [facility] Comment on above: Unable to have a vid eo visit Start: 12-19-2024 End: 12-19-2024 Evaluation and management of inpatient Pulm Fct Lab J-2 Pulmonary Medicine Comment on above: Shortness of breath (Primary Dx) Start: 12-18-2024 End: 12-18-2024 Evaluation and management of inpatient Sera Milton DMD Work Phone: Dentistry Comment on above: Pre-operative cleara nce (Primary Dx); Nonrheumatic mitral valve regurgitation Start: 12-18-2024 End: 12-18-2024 Preoperative state Sera Milton DMD Work Phone: [facility] Work Phone: Start: 12-15-2024 End: 01-04-2025 Evaluation and management of inpatient MARIANELA C SHEETS Facility:[facility] Start: 12-13-2024 End: 12-15-2024 Evaluation and management of inpatient JEAN PAUL HOLT Facility:[facility] Start: 12-13-2024 Non-patient / Non-visit Dr. Nuha Holt MD [facility] Start: 12-13-2024 Non-patient / Non-visit Dr. Sukhi duran [facility] Phys[facility] Work Phone: Start: 12-12-2024 Non-patient / Non-visit Dr. Nuha Holt MD [facility] Start: 12-12-2024 Non-patient / Non-visit Dr. Sukhi Almaraz [facility] In[facility] Physicians Work Phone: Start: 12-11-20[facility] Start: 12-11-2024 Non-patient / Non-visit Dr. Nuha Holt MD [facility] Start: 12-11-2024 End: 12-13-2024 Evaluation and management of inpatient Dr. Francis Bojorquez MD -Intensive Care Unit Work Phone: Start: 12-11-2024 ambulatory Francis Bojorquez Facility:[facility] Start: 12-11-2024 Non-patient / Non-visit Dr. Francis santiago MD -[facility] Work Phone: Start: 12-03-2024 End: 12-03-2024 ambulatory MARIANELA C SHEETS Facility:[facility] Start: 11-23-2024 End: 11-27-2024 Refill Argenis Nagy DO Work Phone: Vascular Surgery Comment on above: Refill Request Start: 11-19-2024 End: 11-19-[address] Brayden Undrewood MD -[facility] Work Phone: Start: 11-19-2024 End: 11-19-2024 ambulatory Brayden Underwood Facility:[facility] Start: 11-16-2024 End: 11-16-2024 Telephone encounter Marianela C Sheets DO Work Phone: [facility] Comment on above: Lab Orders Start: 11-08-2024 End: 11-08-2024 ambulatory Marianela C Sheets DO Work Phone: [facility] Comment on above: High blood pressure Start: 11-07-2024 End: 11-08-2024 Telephone encounter Marianela C Sheets DO Work Phone: [facility] Comment on above: Patient Update Start: 11-06-2024 End: 11-06-2024 Patient encounter procedure Argenis Nagy DO Work Phone: Vascular Surgery Comment on above: Encounter for screen ing for cardiovascular disorders (Primary Dx); Claudication; Primary hypertension Start: 11-06-2024 End: 11-06-2024 ambulatory ARGENIS NAGY Facility:[facility] Start: 10-30-2024 End: 11-07-2024 Follow-up encounter Marianela C Sheets DO Work Phone: [facility] Start: 10-19-2024 ambulatory UNKNOWN PROVIDER Facili ty:[facility] Start: 10-19-2024 End: 10-19-2024 Subsequent hospital visit by physician [facility] Radiology Comment on above: Peripheral vascular disease [I73.9] Start: 10-18-2024 End: 10-18-[address] Brayden Underwood MD -[facility] Work Phone: Start: 10-18-2024 End: 10-18-2024 ambulatory Jaziel Lin Facility:[facility] Start: 10-03-2024 End: 12-03-2024 Follow-up encounter Marianela C Sheets DO Work Phone: [facility] Comment on above: Results Start: 09-25-2024 End: 09-25-2024 ambulatory MARIANELA C SHEETS Facility:[facility] Start: 09-25-2024 End: 09-25-2024 Patient encounter procedure Argenis Nagy DO Work Phone: Vascular Surgery Comment on above: Peripheral vascular disease (HCC) (Primary Dx); Screening for nephropathy Start: 09-23-2024 End: 09-24-2024 Refill Marianela Perez Sheets DO Work Phone: [facility] Comment on above: Refill Request Start: 09-11-2024 End: 09-18-2024 Telephone encounter Marianela C Sheets DO Work Phone: [facility] Comment on above: Lab Orders Start: 08-31-2024 End: 10-31-2024 Follow-up encounter Marianela Perez Sheets DO Work Phone: [facility] Start: 08-30-2024 End: 08-30-2024 ambulatory MARIANELA C SHEETS Facility:[facility] Start: 08-30-2024 End: 08-30-2024 Subsequent hospital visit by physician [facility] Work Phone: Radiology Comment on above: Asymptomatic menopau se [Z78.0] Encounter for screen ing mammogram for breast cancer [Z12.31] Start: 08-29-2024 End: 08-29-2024 ambulatory ARGENIS NAGY Facility:[facility] Start: 08-29-2024 End: 08-29-2024 ambulatory ARGENIS NAGY Facility:[facility] Start: 07-31-2024 End: 07-31-2024 ambulatory ARGENIS NAGY Facility:[facility] Start: 07-31-2024 End: 07-31-2024 Patient encounter procedure Argenis Nagy DO Work Phone: Vascular Surgery Comment on above: Symptomatic varicose veins of both lower extremities (Primary Dx); Claudication in peripheral vascular disease (HCC); Primary hypertension Start: 07-30-2024 End: 07-30-2024 Telephone encounter Marianela C Sheets DO Work Phone: [facility] Comment on above: Lab Orders Start: 07-26-2024 End: 07-26-2024 ambulatory MARIANELA C SHEETS Facility:[facility] Start: 07-25-2024 End: 07-25-2024 ambulatory Ana Guerra RN Work Phone: [facility] Start: 07-25-2024 End: 07-25-2024 Home visit Ana Guerra RN Work Phone: Pharmacy Sales Representative Comment on above: Transition Of Care ( TCM f/u - Appointment) Bi-weekly phone contact (Recurring) for Transitional Care Management Start: 07-24-2024 End: 07-25-2024 Refill Marianela C Sheets DO Work Phone: [facility] Comment on above: Refill Request Start: 07-11-2024 End: 07-12-2024 ambulatory Ana Guerra RN Work Phone: [facility] Start: 07-11-2024 End: 07-12-2024 Home visit Ana Guerra RN Work Phone: Pharmacy Sales Representative Comment on above: Transition Of Care ( Left CC Bety AMA 07/10/24) Initial phone contact for Transitional Care Management Start: 07-09-2024 End: 07-09-2024 Evaluation and management of inpatient FIDENCIO ADORNO Facility:[id number] Start: 07-09-2024 End: 07-10-2024 Evaluation and management of inpatient PIETEREUNICE NAVARROH Facility:[id number] Start: 07-08-2024 End: 07-08-2024 Emergency department patient visit ALYSIA ELAM Facility:[facility] Start: 06-25-2024 End: 06-25-2024 ambulatory MARIANELA C SHEETS Facility:[facility] Start: 06-25-2024 End: 06-25-2024 Patient encounter procedure Marianela C Sheets DO Work Phone: [facility] Comment on above: Hypothyroidism, acqu ired (Primary Dx); Claudication (HCC); Asymptomatic menopause; Encounter for screening mammogram for breast cancer; Screening for lipid disorders; Encounter for immunization; Screening for endocrine, metabolic and immunity disorder; Screening for blood disease; Well adult exam Start: 06-25-2024 End: 06-25-2024 Patient encounter status Marianela C Grace DO Work Phone: [facility] Start: 06-13-2024 ambulatory Jaziel Lin Facili ty:[facility] Start: 06-13-2024 End: 06-13-2024 ambulatory Jaziel Lin Facility:[facility] Start: 03-07-2024 ambulatory No Primary Car e Physician Facility:[facility] Start: 03-07-2024 End: 03-17-2024 Evaluation and management of inpatient No Primary Care Physician Facility:[facility] Procedures Date Procedure Procedure Detail Performing Clinician Start: 01-07-2025 CT angiography of ch est with contrast No Primary Care Physician Start: 01-07-2025 Plain chest X-ray No Pr imary Care Physician Start: 01-07-2025 Estimated creatinine clearance No Primary Care Physician Start: 01-03-2025 Prgrmg dev eval implantable subq lead dfb system Ankit Pina MD Work Phone: Start: 01-03-2025 Antibody screen DEONTEBERL Y GRACE Comment on above: Order Comment: Speci men Type: BLOOD SPECIMENOrdering Facility: [facility] Address: [address] [place] [address] Performed By: #### T SCR ####CC MAIN BLOOD BANKCLIA [id number] [address] Start: 12-24-2024 Antibody screen KIMBERL Y SHEETS Comment on above: Order Comment: Speci men Type: BLOOD SPECIMENOrdering Facility: [facility] Address: [address] [place] [address] Performed By: #### T SCR ####CC MAIN BLOOD BANKCLIA [id number] [address] Start: 12-20-2024 Antibody screen KIMBERL Y SHEETS Comment on above: Order Comment: Speci men Type: BLOOD SPECIMENOrdering Facility: [facility] Address: [address] [place] [address] Performed By: #### T SCR ####CC MAIN BLOOD BANKCLIA [id number] [facility] [id number] [id number] [facility] Start: 12-13-2024 Antibody screen JEAN PAUL HOLT Comment on above: Order Comment: Speci men Type: BLOOD SPECIMENOrdering Facility: [facility] Address: [address] [place] [address] Performed By: #### T SCR ####[facility] BLOOD BANKCLIA [id number] [place], [place] [id number] [place] [address] Start: 12-13-2024 Estimated creatinine clearance No Primary Care Physician Start: 12-13-2024 Lipid 1996 panel - S juan or Plasma Sera Milton DMD Work Phone: Start: 12-11-2024 CT angiography of ch est with contrast No Primary Care Physician Start: 12-10-2024 X-ray of chest, PA a nd lateral views No Primary Care Physician Start: 12-10-2024 Estimated creatinine clearance No Primary Care Physician Start: 11-19-2024 MRI of cervical spine N o Primary Care Physician Start: 11-08-2024 Lipid 1996 panel - S juan or Plasma Marianela Sheets DO Work Phone: Start: 10-19-2024 Cta abdl aorta&bi il iofem w/contrast&postp Argenis Nagy DO Work Phone: Start: 07-26-2024 Lipid 1996 panel - S juan or Plasma Marianela Sheets DO Work Phone: Start: 07-08-2024 History of carotid endarterectomy History of left-sided carotid endarterectomy Ana Guerra RN Work Phone: History of placement of stent for coronary artery disease Hx of heart artery stent No Primary Care Physician Plan of Treatment Date Care Activity Detail Author Start: 09-27-2031 RSV Vaccine (1 - 1-d ose 75+ series) RSV Vaccine (1 - 1-dose 75+ series) [facility] Start: 12-13-2029 Lipid panel Lipid Screening [facility] Start: 11-08-2029 Lipid panel Lipid Screening [facility] Start: 07-26-2029 Lipid panel Lipid Screening [facility] Start: 01-05-2028 Diabetes Screening Diabetes Screenin g [facility] Start: 12-22-2027 Diabetes Screening Diabetes Screenin g [facility] Start: 12-20-2027 Diabetes Screening Diabetes Screenin g [facility] Start: 12-19-2027 Diabetes Screening Diabetes Screenin g [facility] Start: 07-26-2027 Diabetes Screening Diabetes Screenin g [facility] Start: 07-09-2027 Diabetes Screening Diabetes Screenpr g [facility] Start: 08-30-2025 Screening for malign ant neoplasm of breast Mammogram Screening [facility] Start: 06-25-2025 Annual PCP Team Compound Worker donya Disease Visit Annual PCP Team Chronic Disease Visit [facility] Start: 06-25-2025 BP Controlled (<130/80) BP Controlle d (<130/80) [facility] Start: 06-25-2025 Covid-19 Vaccine ( season) Covid-19 Vaccine ( season) [facility] Comment on above: Postponed from 03/04 (Declined at this time) Start: 06-25-2025 Shingrix Vaccine (1 of 2) Foreman grix Vaccine (1 of 2) [facility] Comment on above: Postponed from 09/26 (Declined at this time) Start: 06-25-2025 Urine microalbumin profile DTaP,Tdap,Td Vaccine (1 - Tdap) [facility] Comment on above: Postponed from 09/26 (Declined at this time) Postponed from 04/04 (Declined at this time) Start: 04-02-2025 End: 04-02-2025 Patient encounter procedure 04/02/2025 8:45 AM EDT Office Visit Cardiology [address] [place] [address] Kameron Huizar PA-C [address] [place] [address] ICM Cardiology Comment on above: ICM Start: 04-01-2025 End: 04-01-2025 Patient encounter procedure 04/01/2025 9:40 AM EDT Office Visit Cardiology [address] [place] [address] Miguel Aguayo MD [address] [facility], [address] [place] [address] Hypertension Cardiology Comment on above: Hypertension Start: 03-22-2025 End: 03-22-2025 Patient encounter procedure Vascular Surgery Comment on above: 3 Month Hospital Fol low Up for PAD Start: 03-04-2025 Influenza vaccination Influenza Vacc ine (#1) [facility] Start: 02-14-2025 End: 02-14-2025 Patient encounter procedure 02/14/2025 1:30 PM EDT Appointment Cardiology [address] [place] [id number] OUTPATIENT 4-6W DEVICE CHECK (ICD) Cardiology Comment on above: OUTPATIENT 4-6W DEVICE CHECK (ICD) Start: 01-07-2025 Admission procedure [facility] Start: 01-07-2025 [facility] Start: 01-07-2025 [facility] Start: 12-31-2024 End: 12-31-2024 Nursing evaluation of patient and report Cardiology Comment on above: Dx: Encounter for sc reening for cardiovascular disorders [Z13.6] Start: 12-31-2024 End: 12-31-2024 Patient encounter procedure Nuclear Medicine Comment on above: Dx: Encounter for sc reening for cardiovascular disorders [Z13.6] Start: 12-21-2024 End: 12-21-2024 Patient encounter procedure 12/21/2024 3:00 PM EDT Office Visit Cardiology [address] [place] [address] J31-11 Cardiology Comment on above: J31-11 Start: 12-20-2024 End: 12-20-2024 ambulatory 12/20/2024 4:20 PM EDT [address] [address] Marianela Edwards, DO [address] [place] [address] thyroid med check [facility] Comment on above: thyroid med check Start: 12-19-2024 End: 12-19-2024 Patient encounter procedure Pulmonary Medicine Comment on above: A&O, reg wheelchair, RA, heprin drip, no precautions, transport in//AND A&O, reg wheelchair, RA, heprin drip, no precautions//AND Start: 12-13-2024 Patient discharge [facility] Start: 12-13-2024 Patient discharge [facility] Start: 12-12-2024 Notification of physician [facility] Start: 12-12-2024 Patient education [facility] Start: 12-12-2024 Provision of activit y privileges [facility] Start: 12-12-2024 Pulse taking [facility] Start: 12-12-2024 Taking patient vital signs [facility] Start: 12-12-2024 Wound care [facility] Start: 12-12-2024 [facility] Start: 12-11-2024 Catheterization of vein [facility] Start: 12-11-2024 [facility] [facility] Start: 12-11-2024 Preoperative care [facility] Start: 12-11-2024 End: 12-11-2024 [facility] Start: 12-11-2024 Oxygen therapy [facility] Start: 12-11-2024 Following clinical pathway protocol [facility] Start: 12-11-2024 Ambulation without limitation [facility] Start: 12-11-2024 Assessment of risk o f venous thromboembolism [facility] Start: 12-11-2024 Bedrest [facility] Start: 12-11-2024 Continuous pulse oximetry [facility] Start: 12-11-2024 Insertion of cathete r into peripheral vein [facility] Start: 12-11-2024 Measuring intake and output [facility] Start: 12-11-2024 Patient referral to dietitian [facility] Start: 12-11-2024 Providing care accor ding to standard [facility] Start: 12-11-2024 Referral to prototype fabricator [facility] Start: 12-11-2024 Vital signs measurements [facility] Start: 12-11-2024 [facility] Start: 12-11-2024 Hospital admission, emergency, from emergency room, medical nature [facility] Start: 12-11-2024 Verification routine [facility] Start: 12-11-2024 Admission procedure [facility] Start: 12-11-2024 Continuous pulse oximetry [facility] Start: 12-11-2024 [facility] Start: 12-11-2024 Dual pressure sponta neous ventilation support [facility] Start: 12-10-2024 [facility] Start: 11-16-2024 End: 02-15-2025 Thyrotropin [Units/volume] in Serum or Plasma THYROID STIMULATING HORMONE Lab Routine Hypothyroidism, acquired Expected: 11/16/2024, Expires: 02/15/2025 [facility] Work Phone: Comment on above: Expected: 11/16/2024 , Expires: 02/15/2025 Start: 11-06-2024 End: 11-06-2024 Patient encounter procedure 11/06/2024 9:30 AM EDT Office Visit Vascular Surgery [address] [place] [address] Argenis Nayg, DO [address] [place] [address] follow up after testing V[facility] Surgery Comment on above: follow up after test ing Start: 10-19-2024 End: 10-19-2024 Patient encounter procedure 10/19/2024 1:30 PM EDT Appointment Radiology [address] [place] [address] Peripheral vascular disease (HCC) [I73.9] Radiology Comment on above: Peripheral vascular disease (HCC) [I73.9] Start: 09-25-2024 End: 09-25-2024 Patient encounter procedure 09/25/2024 9:00 AM EDT Office Visit Vascular Surgery [address] [place] [address] Argenis Nagy, DO [address] [place], [place] [id number] follow up after testing Vascular Surgery Comment on above: follow up after test ing Start: 09-18-2024 End: 12-18-2024 Thyrotropin [Units/volume] in Serum or Plasma THYROID STIMULATING HORMONE Lab Routine Hypothyroidism, acquired Expected: 09/18/2024, Expires: 12/18/2024 [facility] Work Phone: Comment on above: Expected: 09/18/2024 , Expires: 12/18/2024 Start: 08-30-2024 End: 08-30-2024 Patient encounter procedure Mammogram Comment on above: Encounter for screen ing mammogram for breast cancer [Z12.31] Asymptomatic menopau se [Z78.0] Start: 08-29-2024 End: 08-29-2024 Patient encounter procedure 08/29/2024 2:30 PM EST Office Visit Vasculary Surgery [address] [place] [address] Claudication in peripheral vascular disease (HCC) [I73.9] [facility]cul[facility] Surgery Comment on above: Claudication in chelsea pheral vascular disease (HCC) [I73.9] Start: 08-29-2024 End: 08-29-2024 Patient encounter procedure 08/29/2024 12:30 PM EST Office Visit [facility] [address] [place] [address] Symptomatic varicose veins of both lower extremities [I83.893] [facility] Comment on above: Symptomatic varicose veins of both lower extremities [I83.893] Start: 07-31-2024 End: 07-31-2024 Patient encounter procedure 07/31/2024 8:30 AM EST Office Visit Vascular Surgery [address] [place], [place] [id number] Argenis Nagy, DO [address] [place] [address] Karen, blockage in arteries in neck. Vascular Surgery Comment on above: Anurizms, blockage i n arteries in neck. Start: 07-26-2024 End: 07-26-2024 Patient encounter procedure 07/26/2024 2:20 PM EST Office Visit [facility] [address] [place] [address] Marianela Edwards DO [address] [place] [address] [facility] 07/10/24 - Stiff neck, Headache, HTN [facility] Comment on above: [facility] 07/10/24 - Stiff neck, Headache, HTN Start: 07-09-2024 End: 07-09-2024 Patient encounter procedure 07/09/2024 1:05 PM EST Appointment Radiology [address] [place] [id number] Asymptomatic menopause [Z78.0] Radiology Comment on above: Asymptomatic menopau se [Z78.0] Start: 07-04-2024 Advance Directive Discussion Advance Directive Discussion [facility] Start: 07-04-2024 Medicare Advantage A nnual Wellness Visit Medicare Advantage Annual Wellness Visit [facility] Start: 06-25-2024 End: 09-24-2024 CBC panel - Blood by Automated count COMPLETE BLOOD COUNT Lab Routine Screening for blood disease Expected: 06/25/2024, Expires: 09/24/2024 [facility] Comment on above: Expected: 06/25/2024 , Expires: 09/24/2024 Start: 06-25-2024 End: 09-24-2024 Comprehensive metabolic 2000 panel - Serum or Plasma COMPREHENSIVE METABOLIC PANEL Lab Routine Screening for endocrine, metabolic and immunity disorder Expected: 06/25/2024, Expires: 09/24/2024 [facility] Comment on above: Expected: 06/25/2024 , Expires: 09/24/2024 Start: 06-25-2024 End: 09-24-2024 Lipid 1996 panel - Serum or Plasma LIPID PANEL BASIC Lab Routine Screening for lipid disorders Expected: 06/25/2024, Expires: 09/24/2024 [facility] Comment on above: Expected: 06/25/2024 , Expires: 09/24/2024 Start: 06-25-2024 End: 09-24-2024 Thyrotropin [Units/volume] in Serum or Plasma THYROID STIMULATING HORMONE Lab Routine Hypothyroidism, acquired Expected: 06/25/2024, Expires: 09/24/2024 [facility] Comment on above: Expected: 06/25/2024 , Expires: 09/24/2024 Start: 2021 Screening for osteoporosis Bone Density Screening [facility] Start: 2016 RSV Vaccine (1 - Ris k 60-74 years 1-dose series) RSV Vaccine (1 - Risk 60-74 years 1-dose series) [facility] Start: 2001 Diabetes Screening Diabetes Screenin g [facility] Start: 2001 Lipid panel Lipid Screening [facility] Start: 2001 Screening for malign ant neoplasm of colon [facility] Start: 1996 Screening for malign ant neoplasm of breast Mammogram Screening [facility] Start: 1974 Anxiety Screening Anxiety Screening [facility] Start: 1974 BP Controlled (<130/80) BP Controlle d (<130/80) [facility] Start: 1974 Depression Screening Depression Scre ening [facility] CARDIAC IMPLANTABLE DEVICE CHECK CARDIAC IMPLANTABLE DEVICE CHECK PACEART Routine 01/03/2025 3:01 PM EDT [facility] Work Phone: End: 10-25-2025 CTA Abdominal, Pelvis and Lower extremity vessels W contrast IV CTA ABD/PEL LOWER EXTREM W IVCON Radiology Routine Peripheral vascular disease (HCC) 1 Occurrences starting 09/25/2024 until 10/25/2025 [facility] Work Phone: Comment on above: 1 Occurrences starti ng 09/25/2024 until 10/25/2025 End: 07-25-2025 DBT Breast - bilateral screening BRAD SCREENING W [facility]ONAL[facility] Radiology Routine Encounter for screening mammogram for breast cancer 1 Occurrences starting 06/25/2024 until 07/25/2025 [facility] Work Phone: Comment on above: 1 Occurrences starti ng 06/25/2024 until 07/25/2025 DBT Breast - bilater al screening BRAD SCREENING W [facility]ONAL[facility] Radiology Routine Encounter for screening mammogram for breast cancer 08/30/2024 1:33 PM EST [facility] Work Phone: End: 07-25-2025 DXA Skeletal system.axial Views for bone density DXA-AXIAL SKELETON Radiology Routine Asymptomatic menopause 1 Occurrences starting 06/25/2024 until 07/25/2025 [facility] Comment on above: 1 Occurrences starti ng 06/25/2024 until 07/25/2025 DXA Skeletal system. axial Views for bone density DXA-AXIAL SKELETON Radiology Routine Asymptomatic menopause 08/30/2024 1:57 PM [facility] Work Phone: Im adm prq id subq/i m njxs 1 vaccine IMADM PRQ ID SUBQ/IM NJXS 1 VACC Immunization/Injection Routine Encounter for immunization Ordered: 06/25/2024 [facility] Comment on above: Ordered: 06/25/2024 End: 12-06-2025 NM Heart Perfusion W stress and W radionuclide IV NM CARDIAC PERF STRESS/PHARM Radiology Routine Encounter for screening for cardiovascular disorders 1 Occurrences starting 11/06/2024 until 12/06/2025 [facility] Work Phone: Comment on above: 1 Occurrences starti ng 11/06/2024 until 12/06/2025 Patient referral [facility] Work Phone: Troponin T.cardiac [Mass/volume] in Serum or Plasma by High sensitivity method [facility] End: 07-31-2025 US Vein - bilateral US VENOUS INCOMPETENCY [facility] V[facility] Lab Routine Symptomatic varicose veins of both lower extremities 1 Occurrences starting 07/31/2024 until 07/31/2025 [facility] Work Phone: Comment on above: 1 Occurrences starti ng 07/31/2024 until 07/31/2025 End: 07-31-2025 US.doppler Extremity arteries - bilateral for physiologic artery study at rest and with exercise PVR LEG W/EXC [facility] Vascular Lab Routine Claudication in peripheral vascular disease (HCC) 1 Occurrences starting 07/31/2024 until 07/31/2025 [facility] Comment on above: 1 Occurrences starti ng 07/31/2024 until 07/31/2025 Immunizations Immunization Date Immunization Notes Care Provider Melvi martinez 06-25-2024 influenza, high dose seasonal, preservative-free Marianela Sheets DO Work Phone: [facility] 06-25-2024 pneumococcal conjuga te (PCV20) vaccine, 20 valent (PREVNAR 20) Marianela Sheets DO Work Phone: [facility] 06-25-2024 pneumococcal Conjuga te, unspecified formulation Marianela Sheets DO Work Phone: [facility] 06-25-2024 influenza virus vacc ine, unspecified formulation Maribel Meyer APRN.INSURANCE MARKETING SPECIALIST Work Phone: [facility] Payers Date Payer Category Payer Medicare (Managed Care) 1.2. [id number] 2024 Medicaid [id number] 2024 Unknown [facility] MEDICARE ADVANTAGE HMO [id number] 2024-Present [phone] [address] [place] [address] [facility] [id number] 2024 Medicare [id number] 2024 Medicare [id number] 2024 Self-pay 2024 Medicaid [id number] 2024 Medicaid [id number] 2021 Medicare MEDICARE MEDICAR E A AND B [id number] 2021-2024 [address] [address] [place] [address] Medicare [id number] 2021 Medicare [id number] Unknown [id number] 2.16.840.1.473576.3.579.2.4 62 Unknown [id number] 2.16.840.1.403838.3.579.2.4 62 Unknown [id number] 2.16.840.1.728688.3.579.2.4 62 Unknown [id number] 2.16.840.1.605319.3.579.2.4 62 Unknown [id number] 2.16.840.1.412414.3.579.2.4 62 Unknown [id number] 2.16.840.1.697140.3.579.2.4 62 Unknown [id number] 2.16.840.1.784820.3.579.2.4 62 Unknown [id number] 2.16.840.1.357709.3.579.2.4 62 Unknown [id number] 2.16.840.1.685536.3.579.2.4 62 Unknown [id number] 2.16.840.1.428725.3.579.2.4 62 Unknown [id number] 2.16.840.1.918143.3.579.2.4 62 Unknown [id number] 2.16.840.1.325092.3.579.2.4 62 Unknown [id number] 2.16.840.1.544302.3.579.2.4 62 Unknown [id number] 2.16.840.1.673159.3.579.2.4 62 Unknown [id number] 2.16.840.1.350739.3.579.2.4 62 Unknown [id number] 2.16.840.1.153295.3.579.2.4 62 Unknown [id number] 2.16.840.1.814132.3.579.2.4 62 Unknown [id number] 2.16.840.1.387217.3.579.2.4 62 Unknown [id number] 2.16.840.1.784220.3.579.2.4 62 Unknown [id number] 2.16.840.1.334895.3.579.2.4 62 Unknown [id number] 2.16.840.1.633959.3.579.2.4 62 Unknown [id number] 2.16.840.1.927552.3.579.2.4 62 Unknown [id number] 2.16.840.1.057355.3.579.2.4 62 Unknown [id number] 2.16.840.1.612515.3.579.2.4 62 Social History Date Type Detail Facility Start: 06-25-2024 End: 12-17-2024 Tobacco smoking status NHIS Smokes tobacco daily [facility] History of tobacco use Cigarette Smoker C [facility] Start: 06-25-2024 End: 12-17-2024 Tobacco use and exposure Smokeless tobacco non-user [facility] Start: 06-25-2024 Alcoholic beverage intake Current drinker of alcohol (finding) [facility] Start: 06-25-2024 End: 07-09-2024 History of Social function [facility] Start: 06-25-2024 End: 07-09-2024 Tobacco use panel [facility] National Score (1-10 0), lower number is lower risk 99 [facility] Start: 06-25-2024 Alcohol [facility] Start: 1955 Sex assigned at Female C [facility] Start: 04-30-2024 Gender identity Identifies as female gender (finding) [facility] Start: 04-30-2024 Sexual orientation Heterosexual (heidi ybarra) [facility] Start: 07-11-2024 End: 01-03-2025 Alcoholic beverage intake Ex-drinker (finding) [facility] Has the [employer], [employer], or water [employer] threatened to shut off services in your home in past 12Mo No [facility] (I/We) worried wheth er (my/our) food would run out before (I/we) got money to buy more. Sometimes true [facility] In the past 12 month s, was there a time when you were not able to pay the mortgage or rent on time? Yes [facility] (I/We) worried wheth er (my/our) food would run out before (I/we) got money to buy more. Never true [facility] Start: 12-17-2024 Tobacco Comment [employer] [facility] Start: 01-07-2025 Tobacco smoking stat us FLIS Ex-smoker (finding) [facility] Medical Equipment Procedure Code Equipment Code Equipment Origin al Text Equipment Identifier Dates brain aneurysm coil FDA Start : 02-23-2022 brain aneurysm coil FDA Start : 02-23-2022 [id number] [place] [id number] Start: 01-03-2025 Other [id number] [employer] [id number] Start: 01-03-2025 brain aneurysm coil FDA Start : 02-23-2022 Goals Date Patient Goal Desired Activity /State Personal health goal Functional Status Date Assessment Result Facility 12-15-2024 Are you deaf, or do you have serious difficulty hearing No 12/15/2024 6:27 PM Ana Buchanan, TESHA No [facility] 12-15-2024 Are you blind, or do you have serious difficulty seeing, even when wearing glasses No 12/15/2024 6:27 PM Ana Buchanan, TESHA No [facility] 12-15-2024 Do you have serious difficulty walking or climbing stairs No 12/15/2024 6:27 PM Ana Buchanan, TESHA No [facility] 12-15-2024 Do you have difficul ty dressing or bathing No 12/15/2024 6:27 PM Ana Buchanan, TESHA No [facility] 12-15-2024 Because of a physica l, mental, or emotional condition, do you have difficulty doing errands alone such as visiting a physician's office or shopping No 12/15/2024 6:27 PM Ana Buchanan, TESHA No [facility] 12-13-2024 Functional status Ambulates;Bath room Privilege;Back to bed [facility] Work Phone: Mental Status Date Assessment Result Facility 01-07-2025 Cognitive function Voice/Name [facility] Work Phone: 12-15-2024 Because of a physica l, mental, or emotional condition, do you have serious difficulty concentrating, remembering, or making decisions No 12/15/2024 6:27 PM EDT Ana Villa, RN No [facility] 12-13-2024 Cognitive function Voice/Name [facility] Work Phone: Clinical Notes 03-17-2024 to 01-07-2025 Telephone Encounter - Maribel Meyer APRN.INSURANCE MARKETING SPECIALIST - 01/06/2025 5:13 PM EDTTelephone Encounter - Maribel Meyer APRN.CNP - 01/06/2025 5:13 PM EDTCSera cervantes DMD - 12/18/2024 11:31 AM EDT Note Date & Type Note Facility 01-07-2025 Radiology Diagnostic study note [facility] Imaging Services [address] [place], [place] [address] CTA Chest W/WO Contrast MR#: [id number] Acct: [id number] Name: MAUREEN ANSARI ALYSHA Rep #: [id number] : 1955 F 69 From: Catalina Reina MD PCP: Dr. Marianela Edwards, DO Status: RE G ER Study:CTA Chest W/WO Contrast Date of Exam: 01/07/25 Exam# [id number] Ordering Dr: Michael Durham MD PROCEDURE: CTA CHEST W/WO CONTRAST 01/07/2025 REASON FOR EXAM: HYPOXIA TECHNIQUE: CTA CHEST W/WO CONTRAST Multiplanar Sagittal and Coronal images were obtained. CONTRAST: 100 mL of Isovue 370 One or more dose reduction techniques were used (e.g., Automated exposure control, adjustment of the mA and/or kV according to patient size, use of iterative reconstruction technique). RADIATION DOSE SUMMARY: DLP: 372 mGycm COMPARISON: 12/11/2024 FINDINGS: PULMONARY ARTERIES: No evidence of pulmonary embolism. LUNGS AND PLEURA: Mild pulmonary edema. Moderate pulmonary emphysema. Mild bibasilar pleural effusions. Loculated right pleural fissural effusion. No definite focal consolidations. No mass or nodule. No pneumothorax. MEDIASTINUM: Prominent mediastinal lymph nodes. Ifdm-vx-pttoxefs cardiomegaly. Trace pericardial effusion. Extensive coronary atherosclerosis/stents. The aorta shows no acute findings. The pulmonary trunk, and branches of the vessels in the mediastinum are within normal limits. SUPRACLAVICULAR AND AXILLARY: No abnormalities seen in these regions. No mass or significant lymphadenopathy. UPPER ABDOMEN: The visualized upper abdomen is unremarkable. BONES AND SOFT TISSUES: The ribs are unremarkable. The visualized spine shows no significant acute findings. No focal bony mass lesions noted. The subcutaneous soft tissues are unremarkable. Left chest pacer. CT/CTA Chest W/WO Contrast IMPRESSION: No acute pulmonary emboli. No focal consolidations. Mild pulmonary edema. Moderate pulmonary emphysema. Mild bibasilar pleural effusions. Tvzy-pw-quatvnfd cardiomegaly and trace pericardial effusion. Reading Location: [facility] CC: Dr. Edouard Durham MD; Dr. Marianela Edwards DO ~ Dental Specialist: Signed [facility] 01-07-2025 Note [facility] 01-07-2025 Radiology Diagnostic study note [facility] Imaging Services [address] [place] [address] Chest 1 View (Portable) MR#: [id number] Acct: [id number] Name: MAUREEN ANSARI ALYSHA Rep #: [id number] : 1955 F 69 From: Graeme Zamorano MD PCP: Dr. Marianela Edwards DO Status: VT E ER Study:Chest 1 View (Portable) Date of Exam: 01/07/25 Exam# [id number] Ordering Dr: Michael Durham MD PROCEDURE: CHEST 1 VIEW (PORTABLE) 01/07/2025 REASON FOR EXAM: CHEST PAIN TECHNIQUE: Frontal view of the chest. COMPARISON: Prior study dated December 11, 2024. FINDINGS: Hardware: EKG electrodes are seen. A left-sided ICD is present. Heart: Mild cardiomegaly. Lungs: Vascular congestion mild CHF. There is blunting of the left costophrenicangle. Bones: Other: RAD/Chest 1 View (Portable) IMPRESSION: Cardiomegaly and mild CHF. Blunting of the left costophrenic angle. Reading Location: [place] [address] CC: Dr. Edouard Durham MD; Dr. Marianela Edwards, DO ~ Dental Specialist: Signed [facility] 01-07-2025 Note [facility] 01-06-2025 Telephone encount er Note [facility] After Hours On-Call January 06, 2025 Physician: Dr. Lin Paged by alkylation operator. Attempted to call the pt back, no answer, LM TANIKA Arcos [facility] On-Call [facility] Work Phone: 01-06-2025 Miscellaneous Notes Formattin g of this note might be different from the original. [facility] After Hours On-Call January 06, 2025 Physician: Dr. Lin Paged by alkylation operator. Attempted to call the pt back, no answer, LM TANIKA Arcos [facility] On-Call documented in this encounter [facility] 01-03-2025 Note [facility] 01-03-2025 Note [facility] 01-02-2025 Note [facility] 01-02-2025 Note [facility] 01-02-2025 Note [facility] 01-01-2025 Note [facility] 01-01-2025 Note [facility] 12-31-2024 Note [facility] 12-30-2024 Note [facility] 12-30-2024 Note [facility] 12-29-2024 Note [facility] 12-29-2024 Note [facility] 12-29-2024 Note [facility] 12-28-2024 Note [facility] 12-28-2024 Note [facility] 12-27-2024 Note [facility] 12-26-2024 Note [facility] 12-25-2024 Note [facility] 12-24-2024 Note [facility] 12-24-2024 Note [facility] 12-23-2024 Note [facility] 12-22-2024 Note [facility] 12-22-2024 Note [facility] 12-21-2024 Note [facility] 12-20-2024 Note [facility] 12-20-2024 Note [facility] 12-19-2024 Note [facility] 12-19-2024 Note [facility] 12-19-2024 Note [facility] 12-19-2024 Note [facility] 12-18-2024 Note HNO ID: [id number] Author: SERA MILTON DMD Service: ? Author Type: Dentist Type: Progress Notes Filed: 12/18/2024 11:32 Note Text: See inpatient note for this encounter on 12/18/2024. Sera Milton DMD [facility] 12-18-2024 History of Presen t illness Narrative See inpatient note for this encounter on 12/18/2024. Sera Milton DMD documented in this encounter [facility] 12-18-2024 Note [facility] 12-18-2024 Note [facility] 12-17-2024 Note [facility] 12-16-2024 Note [facility] 12-16-2024 Note HNO ID: [id number] Author: ANITA SPARKS RN Service: Nursing Author Type: Registered Nurse Type: Nursing Progress Note Filed: 12/16/2024 01:35 Note Text: 2122 STAT EKG was completed, MD Garcia Gonsalez was notified. [facility] 12-15-2024 Note HNO ID: [id number] Author: ANITA SPARKS RN Service: Nursing Author Type: Registered Nurse Type: Nursing Progress Note Filed: 12/15/2024 21:39 Note Text: [facility] 12-15-2024 Note HNO ID: [id number] Author: ANA VILLA, TESHA Service: Nursing Author Type: Registered Nurse Type: Nursing Progress Note Filed: 12/15/2024 14:35 Note Text: Report called to [facility] RN Arelis for Pt to go to J71- Bed 9. Will call back with an ETA. [facility] 12-15-2024 Note HNO ID: [id number] Author: GRIFFIN VAUGHAN MD Service: Hospital Medicine Author Type: Resident Type: Progress Notes Filed: 12/18/2024 07:17 Note Text: Attestation signed by Griffin Vaughan MD at 12/18/2024 7:17 AM [facility] MEDICINE SERVICE ATTENDING ATTESTATION: I saw and evaluated the patient on rounds on 12/15/24. Discussed case with the medicine team and agree with resident's findings and plan as documented in the resident's note. Griffin Vaughan MD . [facility] PROGRESS NOTE PATIENT NAME: Maureen Barron REASON FOR ADMISSION/CONSULT: NSTEMI (non-ST elevated myocardial infarction) ([facility]) DATE: December 15, 2024 LOS: 2 Subjective HPI Maureen Barron is a 69 year old female with PMHx HTN, ICA occlusion (s/p endarterectomy), cerebral aneurysm (s/p repair 2019), PAD, HLD, polysubstance use disorder who presented to [facility] on 12/13/2024 with c/o SOB after being evaluated at [facility]. She was transferred to [facility] from [place], where she presented with shortness of breath and chest pain, initially on BiPAP. Patient was found to have NSTEMI (HS Trop >1900 per documents sent from [place]). She was started on a Hep gtt. LHC done which showed MV CAD (outside cath available for review in chart). Patient also found to be in heart failure, ECHO obtained showed LVEF ~45% and severe MR (4+). Pt in CV-ICU for severe, symptomatic MR likely 2/2 ischemia with AE HFrEF with CTS consult for surgical intervention. She was treated for NSTEMI and AE CHF with clinical improvement and so deemed stable to be moved from ICU on 12/14/2024. Pt admitted to [facility] for further evaluation / management. ROS quite limited as pt perseverates on her neighbors cooking meth below her. She is intermittently redirectable. Patient moved in with her sister from [place] ~ 1 year ago. She states for the past 8 months she has not been very active. Her mother and she has had a broken leg, multiple reasons why she has not been up and moving. Her father also had heart disease requiring open heart surgery. She states chest pain /SOB much improved since admission. Denies fever, sweats, chills, cough. She is interested in seeing addiction med OP. Patient notes meth and cocaine use ~ weekly. She also endorses tobacco use with home-made products since 16 years of age. She denies alcohol use. She has a history of Hepatitis C got treated for this. Prior IVDU but > 1 year ago, no opioid use. Code status is Full Code. ROS as in HPI, otherwise 12-point review of systems negative. INTERVAL EVENTS Overnight events: NAEO Nursing: concerns of withdrawal On bedside assessment, patient is anxious and tremulous.Patient states she used methamphetamine prior to admission. Agreeable to symptomatic management to help keep her in the hospital. Otherwise, on RA HDS with no other symptoms. Denies CP, N/V, AP. Objective OBJECTIVE BP: 142/83 Temp: 36.6 ?C (97.9 ?F) Temp src: Oral Pulse: 77 Resp: 18 O2 Therapy: Room Air SpO2: 96 % CR 1.40 > 1.56 CBC wnl Intake/Output Summary (Last 24 hours) at 12/15/2024 0740 Last data filed at 12/14/2024 2213 Gross per 24 hour Intake 1304.1 ml Output 400 ml Net 904.1 ml Admission weight: 52.2 kg (115 lb 1.3 oz) Last recorded weight: 52.7 kg (116 lb 2.9 oz) Physical Exam Constitutional: Appearance: She is diaphoretic. She is not toxic-appearing. HENT: Head: Normocephalic. Cardiovascular: Rate and Rhythm: Regular rhythm. Pulmonary: Effort: No respiratory distress. Breath sounds: No wheezing. Abdominal: General: There is no distension. Tenderness: There is no abdominal tenderness. Musculoskeletal: Right lower leg: No edema. Left lower leg: No edema. Neurological: General: No focal deficit present. Mental Status: She is alert. LABORATORY: BLOOD GAS: CBC: Recent Labs 12/15/2433012/14/2444312/13/24173112/13/24 1613 WBC 9.18 9.39 10.29 10.19 HB 14.4 14.2 13.8 14.6 HCT 44.0 43.1 41.8 44.8 PLT 453* 440* 435* 442* MCV 94.6 93.3 92.5 92.9 RDWCV 12.7 12.9 12.7 12.6 COAG: Recent Labs 12/15/24 03312/14/24205112/14/24 1507 12/14/24 0831 12/14/24 0033 12/13/24173112/13/24 1613 APTT 55.4* 45.1* 50.1* 44.4* 41.9* 29.3 28.8 INR -- -- -- -- -- 1.0 1.0 CMP: Recent Labs 12/15/2433012/14/2444312/13/24173112/13/24 1613 GLUC 116* 120* 112* 120* NA 138 138 137 133* K 4.4 4.3 4.1 4.1 CHLOR 107 105 101 101 CO2 21* 24 24 24 ANION 10 9 12 8 BUN 27* 18 21 20 CREAT 1.56* 1.40* 1.48* 1.48* ALB 3.0* 3.0* 3.1* 3.1* TBILI <0.2* <0.2* <0.2* <0.2* CBILI -- -- <0.1 -- ALKPHOS 77 74 80 81 AST 21 27 31 30 ALT 22 27 28 27 TPROT 6.2* 6.4 6.4 6.5 MG -- -- -- 2.0 URINALYSIS: Recent Labs 12/13/24 1844 SPGR 1.021 UGLUC 4+* U (more content not included)... [facility] 12-14-2024 Note HNO ID: [id number] Author: GANGA RACHEL DO Service: Cardiovascular Medicine Author Type: Resident Type: Plan of Care Filed: 12/14/2024 15:53 Note Text: Transfer request to [facility] initiated. Patient accepted by Dr. Milan without conference. [facility] 12-14-2024 Note HNO ID: [id number] Author: BELINDA AVALOS PA-C Service: Cardiovascular Surgery Author Type: Physician Underground Mine Superintendent Type: Plan of Care Filed: 12/14/2024 15:33 Note Text: 12/14/[address] Bradshaw. STS score 20% for CABG/ MVR. Elevated due to tobacco use, acute on chronic heart failure, PAD, and CVD (including carotid stenosis). Decision made to transfer to [facility]. This was discussed with CVICU team, who will initiate transfer. Belinda Yanez PA-C Pager #[phone] [facility] 12-14-2024 Note HNO ID: [id number] Author: ?, ?, ? Service: ? Author Type: Sealer Sander Type: Plan of Care Filed: 12/14/2024 14:21 Note Text: PHARMACY MEDICATION REVIEW Patient Name: Maureen Barron : 1955 The following medications were updated within the EVENT SET UP SPECIALIST medication list: Medications ADDED to EVENT SET UP SPECIALIST medication list Medications CHANGED on EVENT SET UP SPECIALIST medication list Medications REMOVED from EVENT SET UP SPECIALIST medication list aspirin, enteric coated (ASPIRIN, ENTERIC COATED) 81 mg EC tablet Adjust Sig - Block E-Cancel Garlic 1,500 mg cap Adjust Sig - Block E-Cancel Additional comments: I was able to talk with pt. about her home medications. She states she takes the 2 medications recorded below on the EVENT SET UP SPECIALIST list. She also states she has not started her monthly injections of Boniva yet. I have removed 2 medications from the EVENT SET UP SPECIALIST list (see above). Not taken per pt. I have not added or changed any other home medications. Pt. states she uses [facility]. Medication history completed by historian. No nursing follow up needed. The below information represents the best possible medication history: Yes Medication history completed by: Sealer Sander: Taiwo Bhandari ([employer]) Source of history: Patient: Reliability of source: Appears reliable, clearly identified: Medication name, Medication dose, Medication route, and Medication frequency and Pharmacy records: [facility] Medication nonadherence identified: No barriers noted Reconciliation completed: No, pharmacist not yet reviewed Patient interested in Bedside Delivery Services or using [facility] OP Pharmacy at discharge? No Preferred outpatient pharmacy: [id number] [place] [address] [address] [facility]. [phone] [facility] [phone] Allergies: No Known Allergies Prior to Admission Medications Prescriptions Last Dose Informant Patient Reported? Taking? Ibandronate (BONIVA) 150 mg tablet No No Sig: Take 1 tablet by mouth once every month. In AM with cup of water on empty stomach. Nothing else by mouth and stay upright for 60 min. amLODIPine (NORVASC) 10 mg tablet No Yes Sig: TAKE 1 TABLET BY MOUTH EVERY DAY levothyroxine (SYNTHROID) 112 mcg tablet No Yes Sig: Take 1 tablet by mouth once daily. Facility-Administered Medications: None Taiwo Bhandari ([employer]) phone [phone] 12/14/2024 [facility] 12-14-2024 Note HNO ID: [id number] Author: IAN RODRIGUEZ LSW Service: Care Management Author Type: Lamination Machine Operator Type: Care Mgt Progress Note Filed: 12/14/2024 13:20 Note Text: CARE MANAGEMENT PROGRESS NOTE SERVICE DATE: 12/14/2024 SERVICE TIME: 1:19 PM LOS: 1 day ALCOHOL USE/ABUSE CAGE ASSESSMENT Two or More Affirmative Responses Suggest a Client is a Problem Drinker. - Have you felt the need to cut down on your drinking? No - Do you feel annoyed by people complaining about your drinking? No - Do you ever feel guilty about your drinking? No - Do you ever drink an eye-dedicated regional driver in the morning to relieve shakes? No SW met with patient to discuss substance abuse, patient positive for benzo's. Patient admits to using drugs and alcohols. Patient uses alcohol and marijuana. Patient denies any issues and declined any resources. SIGNATURE: ALTON Mtz PATIENT NAME: Maureen Barron DATE: December 14, 2024 TIME: 1:19 PM [facility] 12-14-2024 Note HNO ID: [id number] Author: LOGAN ALVARADO MD Service: Cardiovascular Medicine Author Type: Physician Type: Progress Notes Filed: 12/14/2024 14:19 Note Text: CARDIOVASCULAR INTENSIVE CARE UNIT PROGRESS NOTE Patient Name: Maureen Barron Date of Service:12/14/2024 Reason For Admission: NSTEMI, 4+ MR, HFrEF LOS:1 Subjective HPI Ms. Maureen Barron is a 69 year old female with PMH: HTN [previously treated homeopathically] ICA occlusion [status post endarterectomy] Cerebral aneurysm [status post repair in 2019] PAD HLD Hypothyroidism Polysubstance abuse ?Hepatitis C s/p treatment Who was admitted to [facility] ~ 12/11 for acute hypoxic respiratory failure secondary to new onset HFrEF exacerbation, also in the setting of NSTEMI with multivessel disease and severe 4+ MR. Patient was transferred to [facility] on 12/13 for further evaluation. INTERVAL EVENTS No adverse events overnight. This is day 1 of admission. This morning at bedside, patient had no complaints, but continues to express concern that her current condition is due to fumes (from the crystal meth producers underneath her house) or poisoning. At ~ 1300 patient became irritated that she was still NPO and began yelling at nursing staff. Patient also claimed to be withdrawing from methamphetamines, though last use was ~ 7 days ago. Patient also admitted to additional IV drug use in the past, but none in the last year. Today's pertinent results include: 12/13/2024 Benzodiazepines Urine Preliminary positive ! Cannabinoids, Urine Preliminary positive ! Recent Labs 12/14/24 0444 12/13/24 1732 WBC 9.39 10.29 HB 14.2 13.8 MCV 93.3 92.5 PLT 440* 435* BUN 18 21 CREAT 1.40* 1.48* GLUC 120* 112* NA 138 137 K 4.3 4.1 CHLOR 105 101 CO2 24 24 ANION 9 12 CA 8.9 9.0 Recent Labs 12/14/24 0444 12/14/24 0033 12/13/24 1732 12/13/24 1613 ALB 3.0* -- 3.1* 3.1* TPROT 6.4 -- 6.4 6.5 MG -- -- -- 2.0 ALKPHOS 74 -- 80 81 ALT 27 -- 28 27 AST 27 -- 31 30 TBILI <0.2* -- <0.2* <0.2* APTT -- 41.9* 29.3 28.8 INR -- -- 1.0 1.0 Procalcitonin (ng/mL) Date Value 07/09/2024 0.07 I/O: Intake/Output Summary (Last 24 hours) at 12/14/2024627 Last data filed at 12/14/2024 0452 Gross per 24 hour Intake 637 ml Output 850 ml Net -213 ml Objective OBJECTIVE BP 112/67 Pulse 72 Temp 36.8 ?C (98.2 ?F) (Oral) Resp 23 Ht 152.4 cm (5') Wt 52.2 kg (115 lb 1.3 oz) SpO2 97% BMI 22.48 kg/m? Body mass index is 22.48 kg/m?. I/O: Intake/Output Summary (Last 24 hours) at 12/14/2024627 Last data filed at 12/14/2024 0452 Gross per 24 hour Intake 637 ml Output 850 ml Net -213 ml Physical Exam Vitals reviewed. Constitutional: General: She is not in acute distress. Appearance: She is normal weight. She is not toxic-appearing. HENT: Head: Normocephalic and atraumatic. Nose: No congestion or rhinorrhea. Mouth/Throat: Mouth: Mucous membranes are moist. Pharynx: Oropharynx is clear. Eyes: General: No scleral icterus. Extraocular Movements: Extraocular movements intact. Pupils: Pupils are equal, round, and reactive to light. Cardiovascular: Rate and Rhythm: Normal rate and regular rhythm. Pulses: Normal pulses. Heart sounds: Murmur heard. Pulmonary: Effort: Pulmonary effort is normal. No respiratory distress. Breath sounds: Normal breath sounds. No wheezing. Abdominal: General: Bowel sounds are normal. There is no distension. Palpations: Abdomen is soft. There is no mass. Tenderness: There is no abdominal tenderness. Musculoskeletal: Cervical back: No rigidity or tenderness. Right lower leg: No edema. Left lower leg: No edema. Skin: General: Skin is warm and dry. Capillary Refill: Capillary refill takes less than 2 seconds. Coloration: Skin is not jaundiced. Neurological: General: No focal deficit present. Mental Status: She is alert. Mental status is at baseline. Psychiatric: Mood and Affect: Mood normal. Behavior: Behavior normal. Judgment: Judgment normal. Comments: See HANDP. Continues to endorse paranoid delusions LABORATORY: CBC: Recent Labs 12/14/24 0444 12/13/24 1732 12/13/24 1613 WBC 9.39 10.29 10.19 HB 14.2 13.8 14.6 HCT 43.1 41.8 44.8 PLT 440* 435* 442* MCV 93.3 92.5 92.9 RDWCV 12.9 12.7 12.6 COAG: Recent Labs 12/14/24 0033 12/13/24 1732 12/13/24 1613 APTT 41.9* 29.3 28.8 INR -- 1.0 1.0 CMP: Recent Labs 12/14/24 0444 12/13/24 1732 12/13/24 1613 GLUC 120* 112* 120* NA 138 137 133* K 4.3 4.1 4.1 CHLOR 105 101 101 CO2 24 24 24 ANION 9 12 8 BUN 18 21 20 CREAT 1.40* 1.48* 1.48* ALB 3.0* 3.1* 3.1* TBILI <0.2* <0.2* <0.2* CBILI -- <0.1 -- ALKPHOS 74 80 81 AST 27 31 30 ALT 27 28 27 TPROT 6.4 6.4 6.5 URINALYSIS: Recent Labs 12/13/24 1844 SPGR 1.021 UGLUC 4+* UBILI Negative UKET Negative UHB Negative UPROT Negative UWBC 0-5 /HPF LV Ejection Fra (more content not included)... [facility] 12-13-2024 Discharge summary Note Date/Time December 13, 2024 2:27pm [facility] Medical Records Department [address] [place] [address] Discharge Summary 12/13/24 1418 MR#: [id number] Acct: [id number] Name: MAUREEN ANSARI Rep #:[id number] : 1955 69 From: Sukhi Forbes DO PCP: Dr. Marianela Edwards DO Status:AD M IN Location: ICU ICU09-1 Providers Date of Admission: 12/11/24 Primary Care Physician: Dr. Marianela Edwards DO Consultations 12/11/24 03:40 Consult: Cardiology Routine Consulting Provider: Jean Paul Holt Reason for Consult: Congestive heart failure elevated troponin EMERGENT Consult: Yes MD Notified: Yes Date Notified: 12/11/24 Time Notified: 03:02 Method of Notification: ED Physician Initiated Reason For Visit: ACUTE RESPIRATORY DISTRESS, CONGESTIVE HEART Diagnosis Discharge Diagnosis (1) Acute hypoxic respiratory failure: Status: Acute Code(s): J96.01 - Acute respiratory failure with hypoxia Plan: Was down to 86% on 2l. Eventually being placed on BiPAP, but since weaned down to 5liters 2/2 CHF exacerbation (2) CHF exacerbation: Status: Chronic Code(s): I50.9 - Heart failure, unspecified Qualifiers: Heart failure type: systolic Qualified Code(s): I50.23 - Acute on chronic systolic (congestive) heart failure Plan: Acute HFrEF Echo: EF 45%, severe inferior, basal to mid posterior and basal to mid lateral hypokinesisis. Stage II DD. Severe MR. Continue furosemide (3) NSTEMI, initial episode of care: Status: Acute Code(s): I21.4 - Non-ST elevation (NSTEMI) myocardial infarction Plan: On ASA and therapeutic enoxaparin. Cards following Left heart cath on 12/13 showed 80% proximal RCA, 95% distal RCA lesion w thrombus. 4+MR FOREIGN Holt he is recommending transfer to tertiary facility for valve replacement and coronary revascularization. (4) Protein calorie malnutrition: Status: Acute Code(s): E46 - Unspecified protein-calorie malnutrition Plan: Nutrition consult (5) Low TSH level: Status: Acute Code(s): R79.89 - Other specified abnormal findings of blood chemistry Plan: FT4 elevated. Will decrease levothyroxine from 112 to 75. Start on 6/12 Outpt follow up. (6) Psychosis: Status: Acute Code(s): F29 - Unspecified psychosis not due to a substance or known physiological condition Plan: Self-reported. But from her description was that she was not being intentionallypoisoned, but fumes from a meth lab in tunnels under her house are in her ventilation. I am unclear about the accuracy of her claims. I did discuss with social work to further field her concerns. Patient with marked paranoia about literal space lasers. I am concerned pt has schizophrenia. I would strongly recommend psychiatric consult at [facility]. She does not require pink slip at this time, but her paranoia is profound and could potentially impact her long-term medical care. Plan Chronic conditions: * PAD: s/p CEA. on cilostazol. * tobacco abuse: complicates care and recovery * anxiety: add PRN lorazepam. VTE prophylaxis: anticoagulated. Disposition: awaiting on bed availability at [facility]. Medications at Discharge Home Medications amlodipine 10 mg tablet 10 mg PO DAILY htn 03/07/24 cilostazol 50 mg tablet 50 mg PO BID 10/18/24 levothyroxine 112 mcg tablet 112 mcg PO DAILY 12/10/24 Hospital Course Operations None Procedures 2-D Echocardiogram and Cardiac catheterization Summary of Care Provided Minutes Spent on Discharge: 35 Hospital Course: This is a 69-year-old female presents with shortness of breath. Patient was found to be in acute CHF exacerbation. She Lasix which did help. Additionally she also had non-STEMI with troponins that peaked at 2120. Patient started anticoagulation. Patient had echocardiogram that showed an EF 45% with stage IIdiastolic dysfunction with moderately enlarged left atrium and severe mitral valve regurgitation. Left heart catheterization showed 80% stenosis of the proximal RCA and no 5% of the distal RCA and 95% stenosis of mid D1 and subtotalocclusion of the proximal left circumflex. And 4+ mitral vegetation. Cardiology recommended transfer. Patient was accepted over at [facility] and will be discharged there today. Patient's course was rather uncomplicated other than patient with severe paranoia. Patient thinking that there is a meth lab popping fumes into her homeas well as space lasers burning her sisters and her thighs amongst many other concerns. It may be beneficial to have psychiatry see her to see if she needs to be on any kind of treatments. Is unclear if patient does have schizophrenia but that is certainly a concern given her profound paranoia. Some this paranoiamay prohibit her from having adequate follow-up and medical treatment on long-term. Weight / BMI Weight Weight: 53.1 kg Body Mass Index (BMI) 22.9 ABG / Lab / Microbiology Data 12/13/24 03:35 12/13/24 03:35 Laboratory: Laboratory Results - last 24 hr 12/12/24 16:47: PT 14.1, INR 1.1, APTT 28.6 12/13/24 00:42: APTT 49.0 H 12/13/24 03:35: WBC 9.3, RBC 4.32, Hgb 13.1, Hct 39.6, MCV 91.7, MCH 30.3, MCHC 33.1, RDW Std Deviation 42.6, RDW Coeff of Luis 12.6, Plt Count 393, MPV 9.8, Immature Gran % (Auto) 0.500, Neut % (Auto) 73.1 H, Lymph % (Auto) 15.0 L, [place] % (Auto) 7.6, Eos % (Auto) 2.9, Baso % (Auto) 0.9, Absolute Neuts (auto) 6.8, Absolute Lymphs (auto) 1.39, Nucleated RBC % 0, Sodium 135, Potassium 3.0 L, Chloride 100, Carbon Dioxide 21.8, Anion Gap 13, BUN 18, Creatinine 1.30 H, Estim Creat Clear Calc 29.75 L, Est GFR (MDRD) Non-Af 45 L, BUN/Creatinine Ratio 14.0, Glucose 279 H, Calcium 8.0 12/13/24 08:00: APTT 116.2 H* D/C Instructions Discharge Diet: Low fat / Low cholesterol DC O2, CPAP, BIPAP Needs Home O2 Discharge instructions: Yes Type of respiratory needs?: Oxygen Oxygen frequency: Continuous Continuous oxygen liters per minute: 2 DC home with Oxygen: Yes Home O2 MD Review: I have reviewed the oxygen testing, and the patient qualifies for home oxygen equipment and portability. The patient is mobile in the home and the community. Meaningful Use Info Meaningful Use Meaningful Use Diagnoses (Choose all that apply): AMI AMI/Post PCI/Angioplasty Aspirin given w/in 24hrs of arrival?: Yes ASA at discharge?: Yes Antiplatelet Therapy at Discharge:: No Statins at discharge?: Yes Evaristo/ARB at discharge?: Yes Beta Shawn at discharge?: No Reason Beta Shawn not ordered:: Hypotension Done w/ Acute IL measure.: Yes Documented LVEF (%): 45 Ischemic Stroke Statin Dosing Therapy Reference: STATIN [...] Simvastatin 80mg Discharge Plan Admission Admit Date/Time: 12/11/24 02:59 Primary Reason for Your Visit: IL.CHF. Attending Provider: Sukhi Forbes Primary Care Provider: Marianela Edwards Consulting Providers: Jean Paul Holt; Francis Bojorquez Discharge Orders/Prescriptions Prescriptions: No Action cilostazol 50 mg tablet 50 mg PO BID amlodipine 10 mg tablet 10 mg PO DAILY levothyroxine 112 mcg tablet 112 mcg PO DAILY Referrals / Follow Up: Marianela Edwards DO [Primary Care Provider] - Care Physician,No Primary [Non-Staff] - Disposition Disposition (needs filled in before D/C Order can be placed): Acute Care Hospital Charges/Coding Visit Charges Inpatient E&M: 06571 Disch Hosp >30min 12/13/24 1427 <Electronically signed by Sukhi Forbes DO> Cosigner Signature (if applicable): CC: Dr. Sukhi Frobes DO; Dr. Marianela Edwards DO~ Signed [facility] Work Phone: 1(103) 334-293406-12-2025 Progress note Author Sukhi Forbes [facility] Note Date/Time December 13, 2024 1:31 pm [facility] Medical Records Department [address] [place] [address] Progress Note - Hospitalist 12/13/24 0705 MR#: [id number] Acct: [id number] Name: MAUREEN ANSARI Rep #:[id number] : 1955 69 From: Sukhi Forbes DO PCP: Dr. Marianela Edwards, DO Status:AD M IN Location: ICU ICU09-1 Reason for Visit Reason for Visit: Diagnoses Unspecified protein-calorie malnutrition (12/11/24) Nicotine dependence, cigarettes, uncomplicated (12/11/24) Non-ST elevation (NSTEMI) myocardial infarction (12/11/24) Other supraventricular tachycardia (12/11/24) Acute on chronic systolic (congestive) heart failure (12/11/24) Heart failure, unspecified (12/11/24) Occlusion and stenosis of bilateral carotid arteries (12/11/24) Peripheral vascular disease, unspecified (12/11/24) Acute respiratory failure with hypoxia (12/11/24) Acute respiratory distress (12/11/24) Other specified abnormal findings of blood chemistry (12/11/24) Subjective Subjective Still worried about the meth lab in the tunnels. Talks about how they are constant watched and that there are lasers from satellites that burn her sister's legs. Objective Data Objective Data Vital Signs: Vital Signs Temp Pulse Resp BP Pulse Ox O2 Del Method O2 Flow Rate 36.6 C 71 18 111/74 93 Nasal Cannula 6 12/13/24 06:00 12/13/24 06:00 12/13/24 06:00 12/13/24 06:00 12/13/24 06:00 12/13/24 06:00 12/13/24 06:00 FiO2 40 12/12/24 04:00 Oxygen Flow Rate (L/min) 6 Oxygen Delivery Method Nasal Cannula Weight: 53.1 kg Body Mass Index (BMI) 22.9 Intake & Output: Intake and Output for Last 24 Hours 12/11/24 12/12/24 12/13/24 23:59 23:59 23:59 Intake Total 1240 / 1240 1100 / 1500 810.98 / 810.98 Output Total 1200 / 1200 400 / 1200 1250 / 1250 Balance 40 / 40 700 / 300 -439.02 / -439.02 Lab / Micro Data 12/13/24 03:35 12/13/24 03:35 Labs: Laboratory Results - last 24 hr 12/12/24 16:47: PT 14.1, INR 1.1, APTT 28.6 12/13/24 00:42: APTT 49.0 H 12/13/24 03:35: WBC 9.3, RBC 4.32, Hgb 13.1, Hct 39.6, MCV 91.7, MCH 30.3, MCHC 33.1, RDW Std Deviation 42.6, RDW Coeff of Luis 12.6, Plt Count 393, MPV 9.8, Immature Gran % (Auto) 0.500, Neut % (Auto) 73.1 H, Lymph % (Auto) 15.0 L, [place] % (Auto) 7.6, Eos % (Auto) 2.9, Baso % (Auto) 0.9, Absolute Neuts (auto) 6.8, Absolute Lymphs (auto) 1.39, Nucleated RBC % 0, Sodium 135, Potassium 3.0 L, Chloride 100, Carbon Dioxide 21.8, Anion Gap 13, BUN 18, Creatinine 1.30 H, Estim Creat Clear Calc 29.75 L, Est GFR (MDRD) Non-Af 45 L, BUN/Creatinine Ratio 14.0, Glucose 279 H, Calcium 8.0 Rhythm Strip Rhythm Strip: Sinus Rhythm Rate: 80 Physical Exam Const alert Constitutional Narrative: anxious. Resp normal respiratory effort and no retractions GI normal to inspection, nondistended, normoactive bowel sounds, soft to palpation,non-tender and non-distended Neuro Sensorium / Orientation: awake and alert Assessment & Plan Assessment/Plan (1) Acute hypoxic respiratory failure: PLAN: Was down to 86% on 2l. Eventually being placed on BiPAP, but since weaned down to 5liters 2/2 CHF exacerbation (2) CHF exacerbation: QUALIFIERS: Heart failure type: systolic Qualified Code(s): I50.23 - Acute on chronic systolic (congestive) heart failure PLAN: Acute HFrEF Echo: EF 45%, severe inferior, basal to mid posterior and basal to mid lateral hypokinesisis. Stage II DD. Severe MR. Continue furosemide (3) NSTEMI, initial episode of care: PLAN: On ASA and therapeutic enoxaparin. Cards following Left heart cath on 12/13 showed 80% proximal RCA, 95% distal RCA lesion w thrombus. 4+MR FOREIGN Holt he is recommending transfer to tertiary facility for valve replacement and coronary revascularization. (4) Protein calorie malnutrition: PLAN: Nutrition consult (5) Low TSH level: PLAN: FT4 elevated. Will decrease levothyroxine from 112 to 75. Start on 12/13 Outpt follow up. (6) Psychosis: PLAN: Self-reported. But from her description was that she was not being intentionally poisoned, but fumes from a meth lab in tunnels under her house arein her ventilation. I am unclear about the accuracy of her claims. I did discusswith social work to further field her concerns. Patient with marked paranoia about literal space lasers. I am concerned pt has schizophrenia. I would strongly recommend psychiatric consult at [facility]. She does not require pink slip at this time, but her paranoia is profound and could potentially impact her long-term medical care. PLAN: Plan Chronic conditions: * PAD: s/p CEA. on cilostazol. * tobacco abuse: complicates care and recovery * anxiety: add PRN lorazepam. VTE prophylaxis: anticoagulated. Disposition: awaiting on bed availability at [facility]. Charges/Coding Visit Charges Inpatient E&M: 03263 Subs Hosp L2 12/13/24 1331 <Electronically signed by Sukhi Forbes DO> Cosigner Signature (if applicable): CC: ~ Signed [facility] Work Phone: 1(868) 937-824506-12-2025 Discharge summary [facility] Medical Records Department [address] [place] [address] Discharge Summary 12/13/24 1418 MR#: [id number] Acct: [id number] Name: MAUREEN ANSARI ALYSHA Rep #:[id number] : 1955 69 From: Sukhi Forbes DO PCP: Dr. Marainela Edwards DO Status:AD M IN Location: ICU ICU09-1 Providers Date of Admission: 12/11/24 Primary Care Physician: Dr. Marianela Edwards DO Consultations 12/11/24 03:40 Consult: Cardiology Routine Consulting Provider: Jean Paul Holt Reason for Consult: Congestive heart failure elevated troponin EMERGENT Consult: Yes Notified: Yes Date Notified: 12/11/24 Time Notified: 03:02 Method of Notification: ED Physician Initiated Reason For Visit: ACUTE RESPIRATORY DISTRESS, CONGESTIVE HEART Diagnosis Discharge Diagnosis (1) Acute hypoxic respiratory failure: Status: Acute Code(s): J96.01 - Acute respiratory failure with hypoxia Plan: Was down to 86% on 2l. Eventually being placed on BiPAP, but since weaned down to 5liters 2/2 CHF exacerbation (2) CHF exacerbation: Status: Chronic Code(s): I50.9 - Heart failure, unspecified Qualifiers: Heart failure type: systolic Qualified Code(s): I50.23 - Acute on chronic systolic (congestive) heart failure Plan: Acute HFrEF Echo: EF 45%, severe inferior, basal to mid posterior and basal to mid lateral hypokinesisis. StageII DD. Severe MR. Continue furosemide (3) NSTEMI, initial episode of care: Status: Acute Code(s): I21.4 - Non-ST elevation (NSTEMI) myocardial infarction Plan: On ASA and therapeutic enoxaparin. Cards following Left heart cath on 12/13 showed 80% proximal RCA, 95% distal RCA lesion w thrombus. 4+MR FOREIGN Holt he is recommending transfer to tertiary facility for valve replacement and coronary revascularization. (4) Protein calorie malnutrition: Status: Acute Code(s): E46 - Unspecified protein-calorie malnutrition Plan: Nutrition consult (5) Low TSH level: Status: Acute Code(s): R79.89 - Other specified abnormal findings of blood chemistry Plan: FT4 elevated. Will decrease levothyroxine from 112 to 75. Start on 12/13 Outpt follow up. (6) Psychosis: Status: Acute Code(s): F29 - Unspecified psychosis not due to a substance or known physiological condition Plan: Self-reported. But from her description was that she was not being intentionallypoisoned, but fumesfrom a meth lab in tunnels under her house are in her ventilation. I am unclear about the accuracy of her claims. I did discuss with social work to further field her concerns. Patient with marked paranoia about literal space lasers. I am concerned pt has schizophrenia. I would strongly recommend psychiatric consult at [facility]. She does not require pink slip at this time, but her paranoia is profoundand could potentially impact her long- term medical care. Plan Chronic conditions: * PAD: s/p CEA. on cilostazol. * tobacco abuse: complicates care and recovery * anxiety: add PRN lorazepam. VTE prophylaxis: anticoagulated. Disposition: awaiting on bed availability at [facility]. Medications at Discharge Home Medications amlodipine 10 mg tablet 10 mg PO DAILY htn 03/07/24 cilostazol 50 mg tablet 50 mg PO BID 10/18/24 levothyroxine 112 mcg tablet 112 mcg PO DAILY 12/10/24 Hospital Course Operations None Procedures 2-D Echocardiogram and Cardiac catheterization Summary of Care Provided Minutes Spent on Discharge: 35 Hospital Course: This is a 69-year-old female presents with shortness of breath. Patient was found to be in acute CHF exacerbation. She Lasix which did help. Additionally she also had non-STEMI with troponins that peaked at 2120. Patient started anticoagulation. Patient had echocardiogram that showed an EF 45% withstage IIdiastolic dysfunction with moderately enlarged left atrium and severe mitral valve regurgitation. Left heart catheterization showed 80% stenosis of the proximal RCA and no 5% of the distal RCA and 95% stenosis of mid D1 and subtotalocclusion of the proximal left circumflex. And 4+ mitral vegetation. Cardiology recommended [facility]. [facility] Patient's course was rather uncomplicated other than patient with severe paranoia. Patient thinkingthat there is a meth lab popping fumes into her homeas well as space lasers burning her sisters andher thighs amongst many other concerns. It may be beneficial to have psychiatry see her to see if she needs to be on any kind of treatments. Is unclear if patient does have schizophrenia but that is certainly a concern given her profound paranoia. Some this paranoiamay prohibit her from having adequate follow-up and medical treatment on long-term. Weight / BMI Weight Weight: 53.1 kg Body Mass Index (BMI) 22.9 ABG / Lab / Microbiology Data 12/13/24 03:35 12/13/24 03:35 Laboratory: Laboratory Results - last 24 hr 12/12/24 16:47: PT 14.1, INR 1.1, APTT 28.6 12/13/24 00:42: APTT 49.0 H 12/13/24 03:35: WBC 9.3, RBC 4.32, Hgb 13.1, Hct 39.6, MCV 91.7, MCH 30.3, MCHC 33.1, RDW Std Deviation 42.6, RDW Coeff of Luis 12.6, Plt Count 393, MPV 9.8, Immature Gran % (Auto) 0.500, Neut % (Auto) 73.1 H, Lymph % (Auto) 15.0 L, [place] % (Auto) 7.6, Eos % (Auto) 2.9, Baso % (Auto) 0.9, Absolute Neuts (auto) 6.8, Absolute Lymphs (auto) 1.39, Nucleated RBC % 0, Sodium 135, Potassium 3.0 L, Chloride 100, Carbon Dioxide 21.8, Anion Gap 13, BUN 18, Creatinine 1.30 H, Estim Creat Clear Calc 29.75 L,Est GFR (MDRD) Non-Af 45 L, BUN/Creatinine Ratio 14.0, Glucose 279 H, Calcium 8.0 12/13/24 08:00: APTT 116.2 H* D/C Instructions Discharge Diet: Low fat / Low cholesterol DC O2, CPAP, BIPAP Needs Home O2 Discharge instructions: Yes Type of respiratory needs?: Oxygen Oxygen frequency: ContinuousContinuous oxygen liters per minute: 2 DC home with Oxygen: Yes Home O2 MD Review: I have reviewed the oxygen testing, and the patient qualifies for home oxygen equipment and portability. The patient is mobile in the home and the community. Meaningful Use Info Meaningful Use Meaningful Use Diagnoses (Choose all that apply): AMI AMI/Post PCI/Angioplasty Aspirin given w/in 24hrs of arrival?: Yes ASA at discharge?: Yes Antiplatelet Therapy at Discharge:: No Statins at discharge?: Yes Evaristo/ARB at discharge?: Yes Beta Shawn at discharge?: No Reason Beta Shawn not ordered:: Hypotension Done w/ Acute [place] measure.: Yes Documented LVEF (%): 45 Ischemic Stroke Statin Dosing Therapy Reference: STATIN [...] Simvastatin 80mg Discharge Plan Admission Admit Date/Time: 12/11/24 02:59 Primary Reason for Your Visit: [place].CHF. Attending Provider: Sukhi Forbes Primary Care Provider: Marianela dEwards Consulting Providers: Jean Paul Holt; Francis Bojorquez Discharge Orders/Prescriptions Prescriptions: No Action cilostazol 50 mg tablet 50 mg PO BID amlodipine 10 mg tablet 10 mg PO DAILY levothyroxine 112 mcg tablet 112 mcg PO DAILY Referrals / Follow Up: Marianela Edwards DO [Primary Care Provider] - Care Physician,No Primary [Non-Staff] - Disposition Disposition (needs filled in before D/C Order can be placed): Acute Care Hospital Charges/Coding Visit Charges Inpatient E&M: 88287 Disch Hosp >30min 12/13/24 1427 Cosigner Signature (if applicable): CC: Dr. Sukhi Forbes DO; Dr. Marianela Edwards DO~ Signed [facility]06-12-2025 [facility] Medical Records Department [address] [place] [address] Discharge Summary 12/13/24 1418 MR#: [id number] Acct: [id number] Name: MAUREEN ANSARI ALYSHA Rep #: [id number] : 1955 69 From: Sukhi Forbes DO PCP: Dr. Marianela Edwards DO Status:ADM IN Location: ICU ICU09-1 Providers Date of Admission: 12/11/24 Primary Care Physician: Dr. Marianela Edwards DO Consultations 12/11/24 03:40 Consult: Cardiology Routine Consulting Provider: Jean Paul Holt Reason for Consult: Congestive heart failure elevated troponin EMERGENT Consult: Yes MD Notified: Yes Date Notified: 12/11/24 Time Notified: 03:02 Method of Notification: ED Physician Initiated Reason For Visit: ACUTE RESPIRATORY DISTRESS, CONGESTIVE HEART Diagnosis Discharge Diagnosis (1) Acute hypoxic respiratory failure: Status: Acute Code(s): J96.01 - Acute respiratory failure with hypoxia Plan: Was down to 86% on 2l. Eventually being placed on BiPAP, but since weaned down to 5liters 2/2 CHF exacerbation (2) CHF exacerbation: Status: Chronic Code(s): I50.9 - Heart failure, unspecified Qualifiers: Heart failure type: systolic Qualified Code(s): I50.23 - Acute on chronic systolic (congestive) heart failure Plan: Acute HFrEF Echo: EF 45%, severe inferior, basal to mid posterior and basal to mid lateral hypokinesisis. Stage II DD. Severe MR. Continue furosemide (3) NSTEMI, initial episode of care: Status: Acute Code(s): I21.4 - Non-ST elevation (NSTEMI) myocardial infarction Plan: On ASA and therapeutic enoxaparin. Cards following Left heart cath on 12/13 showed 80% proximal RCA, 95% distal RCA lesion w thrombus. 4+MR DW Dr. Holt he is recommending transfer to tertiary facility for valve replacement and coronary revascularization. (4) Protein calorie malnutrition: Status: Acute Code(s): E46 - Unspecified protein-calorie malnutrition Plan: Nutrition consult (5) Low TSH level: Status: Acute Code(s): R79.89 - Other specified abnormal findings of blood chemistry Plan: FT4 elevated. Will decrease levothyroxine from 112 to 75. Start on 12/13 Outpt follow up. (6) Psychosis: Status: Acute Code(s): F29 - Unspecified psychosis not due to a substance or known physiological condition Plan: Self-reported. But from her description was that she was not being intentionally poisoned, but fumes from a meth lab in tunnels under her house are in her ventilation. I am unclear about the accuracy of her claims. I did discuss with social work to further field her concerns. Patient with marked paranoia about literal space lasers. I am concerned pt has schizophrenia. I would strongly recommend psychiatric consult at [facility]. She does not require pink slip at this time, but her paranoia is profound and could potentially impact her long-term medical care. Plan Chronic conditions: * PAD: s/p CEA. on cilostazol. * tobacco abuse: complicates care and recovery * anxiety: add PRN lorazepam. VTE prophylaxis: anticoagulated. Disposition: awaiting on bed availability at [facility]. Medications at Discharge Home Medications amlodipine 10 mg tablet 10 mg PO DAILY htn 03/07/24 cilostazol 50 mg tablet 50 mg PO BID 10/18/24 levothyroxine 112 mcg tablet 112 mcg PO DAILY 12/10/24 Hospital Course Operations None Procedures 2-D Echocardiogram and Cardiac catheterization Summary of Care Provided Minutes Spent on Discharge: 35 Hospital Course: This is a 69-year-old female presents with shortness of breath. Patient was found to be in acute CHF exacerbation. She Lasix which did help. Additionally she also had non-STEMI with troponins that peaked at 2120. Patient started anticoagulation. Patient had echocardiogram that showed an EF 45% with stage II diastolic dysfunction with moderately enlarged left atrium and severe mitral valve regurgitation. Left heart catheterization showed 80% stenosis of the proximal RCA and no 5% of the distal RCA and 95% stenosis of mid D1 and subtotal occlusion of the proximal left circumflex. And 4+ mitral vegetation. Cardiology recommended transfer. Patient was accepted over at [facility] and will be discharged there today. Patient's course was rather uncomplicated other than patient with severe paranoia. Patient thinking that there is a meth lab popping fumes into her home as well as space lasers burning her sisters and her thighs amongst many other concerns. It may be beneficial to have psychiatry see her to see if she needs to be on any kind of treatments. Is unclear if patient does have schizophrenia but that is certainly a concern given her profound paranoia. Some this paranoia may prohibit her from having adequate follow-up and medical treatment on long-term. Weight / BMI Weight Weight: 53.1 kg Body Mass Index (BMI) (more content not included)...[facility] 12-13-2024 Progress note [facility] Medical Records Department [address] [place] [address] Progress Note - Hospitalist 12/13/24 0705 MR#: [id number] Acct: [id number] Name: MAUREEN ANSARI ALYSHA Rep #:[id number] : 1955 69 From: Sukhi Forbes DO PCP: Dr. Marianela Edwards, DO Status:AD M IN Location: ICU ICU09- Reason for Visit Reason for Visit: Diagnoses Unspecified protein-calorie malnutrition (12/11/24) Nicotine dependence, cigarettes, uncomplicated (12/11/24) Non-ST elevation (NSTEMI) myocardial infarction (12/11/24) Other supraventricular tachycardia (12/11/24) Acute on chronic systolic (congestive) heart failure (12/11/24) Heart failure, unspecified (12/11/24) Occlusion and stenosis of bilateral carotid arteries (12/11/24) Peripheral vascular disease, unspecified (12/11/24) Acute respiratory failure with hypoxia (12/11/24) Acute respiratory distress (12/11/24) Other specified abnormal findings of blood chemistry (12/11/24) Subjective Subjective Still worried about the meth lab in the tunnels. Talks about how they are constant watched and thatthere are lasers from satellites that burn her sister's legs. Objective Data Objective Data Vital Signs: Vital Signs Temp Pulse Resp BP Pulse Ox O2 Del Method O2 Flow Rate 36.6 C 71 18 111/74 93 Nasal Cannula 6 12/13/24 06:00 12/13/24 06:00 12/13/24 06:00 12/13/24 06:00 12/13/24 06:00 12/13/24 06:00 12/13/24 06:00 FiO2 40 12/12/24 04:00 Oxygen Flow Rate (L/min) 6 Oxygen Delivery Method Nasal Cannula Weight: 53.1 kg Body Mass Index (BMI) 22.9 Intake & Output: Intake and Output for Last 24 Hours 12/11/24 12/12/24 12/13/24 23:59 23:59 23:59 Intake Total 1240 / 1240 1100 / 1500 810.98 / 810.98 Output Total 1200 / 1200 400 / 1200 1250 / 1250 Balance 40 / 40 700 / 300 -439.02 / -439.02 Lab / Micro Data 12/13/24 03:35 12/13/24 03:35 Labs: Laboratory Results - last 24 hr 12/12/24 16:47: PT 14.1, INR 1.1, APTT 28.6 12/13/24 00:42: APTT 49.0 H 12/13/24 03:35: WBC 9.3, RBC 4.32, Hgb 13.1, Hct 39.6, MCV 91.7, MCH 30.3, MCHC 33.1, RDW Std Deviation 42.6, RDW Coeff of Luis 12.6, Plt Count 393, MPV 9.8, Immature Gran % (Auto) 0.500, Neut % (Auto) 73.1 H, Lymph % (Auto) 15.0 L, [place] % (Auto) 7.6, Eos % (Auto) 2.9, Baso % (Auto) 0.9, Absolute Neuts (auto) 6.8, Absolute Lymphs (auto) 1.39, Nucleated RBC % 0, Sodium 135, Potassium 3.0 L, Chloride 100, Carbon Dioxide 21.8, Anion Gap 13, BUN 18, Creatinine 1.30 H, Estim Creat Clear Calc 29.75 L,Est GFR (MDRD) Non-Af 45 L, BUN/Creatinine Ratio 14.0, Glucose 279 H, Calcium 8.0 Rhythm Strip Rhythm Strip: Sinus Rhythm Rate: 80 Physical Exam Const alert Constitutional Narrative: anxious. Resp normal respiratory effort and no retractions GI normal to inspection, nondistended, normoactive bowel sounds, soft to palpation,non-tender and non-distended Neuro Sensorium / Orientation: awake and alert Assessment & Plan Assessment/Plan (1) Acute hypoxic respiratory failure: PLAN: Was down to 86% on 2l. Eventually being placed on BiPAP, but since weaned down to 5liters 2/2 CHF exacerbation (2) CHF exacerbation: QUALIFIERS: Heart failure type: systolic Qualified Code(s): I50.23 - Acute on chronic systolic (congestive) heart failure PLAN: Acute HFrEF Echo: EF 45%, severe inferior, basal to mid posterior and basal to mid lateral hypokinesisis. StageII DD. Severe MR. Continue furosemide (3) NSTEMI, initial episode of care: PLAN: On ASA and therapeutic enoxaparin. Cards following Left heart cath on 12/13 showed 80% proximal RCA, 95% distal RCA lesion w thrombus. 4+MR DW Dr. Holt he is recommending transfer to tertiary facility for valve replacement and coronary revascularization. (4) Protein calorie malnutrition: PLAN: Nutrition consult (5) Low TSH level: PLAN: FT4 elevated. Will decrease levothyroxine from 112 to 75. Start on 12/13 Outpt follow up. (6) Psychosis: PLAN: Self-reported. But from her description was that she was not being intentionally poisoned, but fumes from a meth lab in tunnels under her house arein her ventilation. I am unclear about the accuracy of her claims. I did discusswith social work to further field her concerns. Patient with marked paranoia about literal space lasers. I am concerned pt has schizophrenia. I would strongly recommend psychiatric consult at [facility]. She does not require pink slip at this time, but her paranoia is profound and could potentially impact her long-term medical care. PLAN: Plan Chronic conditions: * PAD: s/p CEA. on cilostazol. * tobacco abuse: complicates care and recovery * anxiety: add PRN lorazepam. VTE prophylaxis: anticoagulated. Disposition: awaiting on bed availability at [facility]. Charges/Coding Visit Charges Inpatient E&M: 71960 Subs Hosp L2 12/13/24 1331 Cosigner Signature (if applicable): CC: ~ Signed [facility]06-12-2025 Progress note Author Jean Paul Holt [facility] Note Date/Time December 13, 2024 8:53 am [facility] Medical Records Department [address] [place] [address] Progress Note - Cardiology 12/13/24 0844 MR#: [id number] Acct: [id number] Name: MAUREEN ANSARI ALYSHA Rep #:[id number] : 1955 69 From: Jean Paul Holt MD PCP: Dr. Marianela Edwards, DO Status:AD M IN Location: ICU ICU09-1 Subjective Subjective Patient resting comfortably in the bed. She has yet to be transferred to [facility] for further evaluation of her mitral regurgitation and coronary disease. I did speak in detail with a prototype fabricator there they acceptedher to be at transferred to the CVICU. Objective Data Vital Signs: Vital Signs Temp Pulse Resp BP Pulse Ox O2 Del Method O2 Flow Rate 97.8 F 76 18 77/55 L 96 Nasal Cannula 4 12/13/24 07:00 12/13/24 07:00 12/13/24 07:00 12/13/24 07:00 12/13/24 07:39 12/13/24 07:39 12/13/24 07:39 FiO2 40 12/12/24 04:00 Oxygen Flow Rate (L/min) 4 Oxygen Delivery Method Nasal Cannula Weight: 117 lb 1.047 oz Body Mass Index (BMI) 22.9 Intake & Output: Intake and Output for Last 24 Hours 12/11/24 12/12/24 12/13/24 23:59 23:59 23:59 Intake Total 1240 / 1240 1100 / 1500 810.98 / 810.98 Output Total 1200 / 1200 400 / 1200 1250 / 1250 Balance 40 / 40 700 / 300 -439.02 / -439.02 Lab / Micro Data 12/13/24 03:35 12/13/24 03:35 Labs: Laboratory Results - last 24 hr 12/12/24 16:47: PT 14.1, INR 1.1, APTT 28.6 12/13/24 00:42: APTT 49.0 H 12/13/24 03:35: WBC 9.3, RBC 4.32, Hgb 13.1, Hct 39.6, MCV 91.7, MCH 30.3, MCHC 33.1, RDW Std Deviation 42.6, RDW Coeff of Luis 12.6, Plt Count 393, MPV 9.8, Immature Gran % (Auto) 0.500, Neut % (Auto) 73.1 H, Lymph % (Auto) 15.0 L, [place] % (Auto) 7.6, Eos % (Auto) 2.9, Baso % (Auto) 0.9, Absolute Neuts (auto) 6.8, Absolute Lymphs (auto) 1.39, Nucleated RBC % 0, Sodium 135, Potassium 3.0 L, Chloride 100, Carbon Dioxide 21.8, Anion Gap 13, BUN 18, Creatinine 1.30 H, Estim Creat Clear Calc 29.75 L, Est GFR (MDRD) Non-Af 45 L, BUN/Creatinine Ratio 14.0, Glucose 279 H, Calcium 8.0 12/13/24 08:00: APTT 116.2 H* Rhythm Strip Rhythm Strip: Sinus Rhythm Rate: 78 Cardiology Labs/Tests 12/12/24 16:47: PT 14.1, INR 1.1, APTT 28.6 12/13/24 00:42: APTT 49.0 H 12/13/24 03:35: WBC 9.3, RBC 4.32, Hgb 13.1, Hct 39.6, MCV 91.7, MCH 30.3, MCHC 33.1, Plt Count 393, MPV 9.8, Immature Gran % (Auto) 0.500, Neut % (Auto) 73.1 H, Lymph % (Auto) 15.0 L, [place] % (Auto) 7.6, Eos % (Auto) 2.9, Baso % (Auto) 0.9,Absolute Neuts (auto) 6.8, Nucleated RBC % 0, Sodium 135, Potassium 3.0 L, Chloride 100, Carbon Dioxide 21.8, Anion Gap 13, BUN 18, Creatinine 1.30 H, Est GFR (MDRD) Non-Af 45 L, BUN/Creatinine Ratio 14.0, Glucose 279 H, Calcium 8.0 12/13/24 08:00: APTT 116.2 H* Rhythm: EKG: ECHO: Stress Test: Cardiac Cath: PCI: CT Surgery: Holter monitor: EPS: PPM: CXR: Chest CT Scan: Physical Exam Const alert and oriented x3 HEENT normocephalic Eyes EOMs intact bilaterally Neck no JVD Resp normal respiratory effort and clear to auscultation bilaterally Cardio Rate: regular rate Rhythm: regular rhythm Heart Sounds: S1 normal, S2 normal and murmur systolic II/ blowing holo left sternal border; Negative for click or gallop Extremity no pedal edema Neuro Neuro Narrative: Alert and oriented X3 Psych mental status grossly normal Assessment & Plan Assessment/Plan (1) PAT (paroxysmal atrial tachycardia): PLAN: Since patient's acute respiratory distress resolved she has remained in sinus rhythm telemetry today shows normal sinus rhythm at 78 bpm. The patient does have a history of severe mitral regurgitation and is at risk of developing atrial fibrillation. She has had no atrial fibrillation documented on telemetrysince admission. (2) NSTEMI, initial episode of care: PLAN: Patient has a subtotal ruptured plaque lesion in the distal right coronaryprior to a moderate to large size PDA and AV continuation. She has a chronically occluded proximal circumflex and mild to moderate disease throughoutthe left anterior descending. Patient's LV ejection fraction is estimated in the 35 to 40% range. (3) Acute hypoxic respiratory failure: PLAN: Patient's respiratory situation has markedly improved with diuresis. She is now down to 4 L nasal cannula. Patient has not had PFTs and she does have anextensive tobacco exposure. (4) Carotid arterial disease: QUALIFIERS: Carotid artery disease type: stenosis Laterality: bilateral Qualified Code(s): I65.23 - Occlusion and stenosis of bilateral carotid arteries PLAN: Patient has a history of 100% occluded left internal carotid artery and isstatus post right internal carotid endarterectomy. She has also had basilar artery aneurysm treated percutaneously in [place]. She has had subsequent MRIs since then. The patient is followed by the vascular [facility] at [facility]. (5) Congestive heart failure: QUALIFIERS: Heart failure type: unspecified Heart failure chronicity: unspecified Qualified Code(s): I50.9 - Heart failure, unspecified PLAN: Patient's heart failure is improved significantly. O2 requirements are decreasing. The patient has no lower extremity edema her lungs sound clear to auscultation on today's exam. The patient has a combination of ischemic cardiomyopathy and valvular heart disease. Her catheterization revealed 4+ mitral regurgitation and severe disease in the right coronary artery and chronically occluded circumflex. The patient has been accepted for transfer to [facility] for further evaluation and treatment. I discussed the details of her case with the prototype fabricator on-call last night they agreed to accept her to their CVICU unit. PLAN: Plan 1. Continue IV heparin. 2. Continue with current diuretic therapy. 3. Continue other medical therapy as indicated by the hospitalist team. 4. Await transfer to [facility] when a bed is available. Charges/Coding Visit Charges Inpatient E&M: 75291 Subs Hosp L3 12/13/24 0853 <Electronically signed by Jean Paul Holt MD> Cosigner Signature (if applicable): CC: ~ Signed [facility] Work Phone: 1(120) 773-698106-12-2025 Progress note [facility] Medical Records Department [address] [place] [address] Progress Note - Cardiology 12/13/24 0844 MR#: [id number] Acct: [id number] Name: MAUREEN ANSARI Rep #:[id number] : 1955 69 From: Jean Paul Holt MD PCP: Dr. Marianela Edwards, DO Status:AD M IN Location: ICU ICU09-1 Subjective Subjective Patient resting comfortably in the bed. She has yet to be transferred to [facility] for further evaluation of her mitral regurgitation and coronary disease. I did speak in detail with a prototype fabricator there they acceptedher to be at transferred to the CVICU. Objective Data Vital Signs: Vital Signs Temp Pulse Resp BP Pulse Ox O2 Del Method O2 Flow Rate 97.8 F 76 18 77/55 L 96 Nasal Cannula 4 12/13/24 07:00 12/13/24 07:00 12/13/24 07:00 12/13/24 07:00 12/13/24 07:39 12/13/24 07:39 12/13/24 07:39 FiO2 40 12/12/24 04:00 Oxygen Flow Rate (L/min) 4 Oxygen Delivery Method Nasal Cannula Weight: 117 lb 1.047 oz Body Mass Index (BMI) 22.9 Intake & Output: Intake and Output for Last 24 Hours 12/11/24 12/12/24 12/13/24 23:59 23:59 23:59 Intake Total 1240 / 1240 1100 / 1500 810.98 / 810.98 Output Total 1200 / 1200 400 / 1200 1250 / 1250 Balance 40 / 40 700 / 300 -439.02 / -439.02 Lab / Micro Data 12/13/24 03:35 12/13/24 03:35 Labs: Laboratory Results - last 24 hr 12/12/24 16:47: PT 14.1, INR 1.1, APTT 28.6 12/13/24 00:42: APTT 49.0 H 12/13/24 03:35: WBC 9.3, RBC 4.32, Hgb 13.1, Hct 39.6, MCV 91.7, MCH 30.3, MCHC 33.1, RDW Std Deviation 42.6, RDW Coeff of Luis 12.6, Plt Count 393, MPV 9.8, Immature Gran % (Auto) 0.500, Neut % (Auto) 73.1 H, Lymph % (Auto) 15.0 L, [place] % (Auto) 7.6, Eos % (Auto) 2.9, Baso % (Auto) 0.9, Absolute Neuts (auto) 6.8, Absolute Lymphs (auto) 1.39, Nucleated RBC % 0, Sodium 135, Potassium 3.0 L, Chloride 100, Carbon Dioxide 21.8, Anion Gap 13, BUN 18, Creatinine 1.30 H, Estim Creat Clear Calc 29.75 L,Est GFR (MDRD) Non-Af 45 L, BUN/Creatinine Ratio 14.0, Glucose 279 H, Calcium 8.0 12/13/24 08:00: APTT 116.2 H* Rhythm Strip Rhythm Strip: Sinus Rhythm Rate: 78 Cardiology Labs/Tests 12/12/24 16:47: PT 14.1, INR 1.1, APTT 28.6 12/13/24 00:42: APTT 49.0 H 12/13/24 03:35: WBC 9.3, RBC 4.32, Hgb 13.1, Hct 39.6, MCV 91.7, MCH 30.3, MCHC 33.1, Plt Count 393, MPV 9.8, Immature Gran % (Auto) 0.500, Neut % (Auto) 73.1 H, Lymph % (Auto) 15.0 L, [place] % (Auto) 7.6, Eos % (Auto) 2.9, Baso % (Auto) 0.9,Absolute Neuts (auto) 6.8, Nucleated RBC % 0, Sodium 135, Potassium 3.0 L, Chloride 100, Carbon Dioxide 21.8, Anion Gap 13, BUN 18, Creatinine 1.30 H, Est GFR (MDRD) Non-Af 45 L, BUN/Creatinine Ratio 14.0, Glucose 279 H, Calcium 8.0 12/13/24 08:00: APTT 116.2 H* Rhythm: EKG: ECHO: Stress Test: Cardiac Cath: PCI: CT Surgery: Holter monitor: EPS: PPM: CXR: Chest CT Scan: Physical Exam Const alert and oriented x3 HEENT normocephalic Eyes EOMs intact bilaterally Neck no JVD Resp normal respiratory effort and clear to auscultation bilaterally Cardio Rate: regular rate Rhythm: regular rhythm Heart Sounds: S1 normal, S2 normal and murmur systolic II/ blowing holo left sternal border; Negative for click or gallop Extremity no pedal edema Neuro Neuro Narrative: Alert and oriented X3 Psych mental status grossly normal Assessment & Plan Assessment/Plan (1) PAT (paroxysmal atrial tachycardia): PLAN: Since patient's acute respiratory distress resolved she has remained in sinus rhythm telemetry today shows normal sinus rhythm at 78 bpm. The patient does have a history of severe mitral regurgitation and is at risk of developing atrial fibrillation. She has had no atrial fibrillation documented on telemetrysince admission. (2) NSTEMI, initial episode of care: PLAN: Patient has a subtotal ruptured plaque lesion in the distal right coronaryprior to a moderateto large size PDA and AV continuation. She has a chronically occluded proximal circumflex and mild to moderate disease throughoutthe left anterior descending. Patient's LV ejection fraction is estimated in the 35 to 40% range. (3) Acute hypoxic respiratory failure: PLAN: Patient's respiratory situation has markedly improved with diuresis. She is now down to 4 L nasal cannula. Patient has not had PFTs and she does have anextensive tobacco exposure. (4) Carotid arterial disease: QUALIFIERS: Carotid artery disease type: stenosis Laterality: bilateral Qualified Code(s): I65.23 -Occlusion and stenosis of bilateral carotid arteries PLAN: Patient has a history of 100% occluded left internal carotid artery and isstatus post right internal carotid endarterectomy. She has also had basilar artery aneurysm treated percutaneously in [place]. She has had subsequent MRIs since then. The patient is followed by the vascular team at the [facility]. (5) Congestive heart failure: QUALIFIERS: Heart failure type: unspecified Heart failure chronicity: unspecified Qualified Code(s): I50.9 - Heart failure, unspecified PLAN: Patient's heart failure is improved significantly. O2 requirements are decreasing. The patient has no lower extremity edema her lungs sound clear to auscultation on today's exam. The patient has a combination of ischemic cardiomyopathy and valvular heart disease. Her catheterization revealed 4+ mitral regurgitation and severe disease in the right coronary artery and chronically occluded circumflex. The patient has been accepted for transfer to [facility] for further evaluation and treatment. I discussed the details of her case with the prototype fabricator on-call last night they agreed to accept her to their CVICU unit. PLAN: Plan 1. Continue IV heparin. 2. Continue with current diuretic therapy. 3. Continue other medical therapy as indicated by the hospitalist team. 4. Await transfer to [facility] when a bed is available. Charges/Coding Visit Charges Inpatient E&M: 18832 Subs Hosp L3 12/13/24 0853 Cosigner Signature (if applicable): CC: ~ Signed [facility]06-11-2025 Progress note Author Jean Paul Holt [facility] Note Date/Time December 12, 2024 4:08 pm [facility] Medical Records Department [address] [place] [address] Progress Note - Cardiology 12/12/24923 MR#: [id number] Acct: [id number] Name: MAUREEN ANSARI ALYSHA Rep #:[id number] : 1955 69 From: Jean Paul Holt MD PCP: Dr. Marianela Edwards, DO Status:AD M IN Location: ICU ICU09-1 Subjective Subjective Patient was up in room being attended to by the nurse. She denies any anginal type symptoms at this time. The patient is scheduled for left heart catheterization later this morning. Objective Data Vital Signs: Vital Signs Temp Pulse Resp BP Pulse Ox O2 Del Method O2 Flow Rate 97.5 F L 73 21 H 101/67 94 Nasal Cannula 6 12/12/24 01:00 12/12/24 08:11 12/12/24 07:00 12/12/24 08:11 12/12/24 08:30 12/12/24 08:30 12/12/24 08:30 FiO2 40 12/12/24 04:00 Oxygen Flow Rate (L/min) 6 Oxygen Delivery Method Nasal Cannula Weight: 115 lb 1.301 oz Body Mass Index (BMI) 22.6 Intake & Output: Intake and Output for Last 24 Hours 12/10/24 12/11/24 12/12/24 23:59 23:59 23:59 Intake Total 1240 / 1240 Output Total 1200 / 1200 250 / 250 Balance 40 / 40 -250 / -250 Lab / Micro Data 12/11/24 03:49 12/12/24 05:05 Labs: Laboratory Results - last 24 hr 12/11/24 08:47: Triglycerides 87, Cholesterol 175, LDL Cholesterol, Calc 131, VLDL Cholesterol 17, HDL Cholesterol 26 L, Cholesterol/HDL Ratio 6.65, Free T4 1.90 H 12/12/24 05:05: Sodium 138, Potassium 4.0, Chloride 102, Carbon Dioxide 22.6, Anion Gap 13, BUN 21 H, Creatinine 1.33 H, Estim Creat Clear Calc 29.08 L, Est GFR (MDRD) Non-Af 44 L, BUN/Creatinine Ratio 15.9, Glucose 130 H, Calcium 8.9 Rhythm Strip Rhythm Strip: Sinus Rhythm Rate: 80 Cardiology Labs/Tests 12/11/24 08:47: Triglycerides 87, Cholesterol 175, VLDL Cholesterol 17, HDL Cholesterol 26 L, Cholesterol/HDL Ratio 6.65 12/12/24 05:05: Sodium 138, Potassium 4.0, Chloride 102, Carbon Dioxide 22.6, Anion Gap 13, BUN 21 H, Creatinine 1.33 H, Est GFR (MDRD) Non-Af 44 L, BUN/Creatinine Ratio 15.9, Glucose 130 H, Calcium 8.9 Rhythm: EKG: ECHO: Stress Test: Cardiac Cath: PCI: CT Surgery: Holter monitor: EPS: PPM: CXR: Chest CT Scan: Radiography Diagnostic Testing: Radiology Impression Echocardiogram 12/11/24 05:55 Interpretation Summary Mild concentric left ventricular hypertrophy. Severe inferior, basal to mid posterior and basal to mid lateral hypokinesis. Estimated LVEF 45%. Stage II diastolic dysfunction. The left atrium is moderately enlarged. Severe mitral valve regurgitation. Ordering Physician: Francis Bojorquez Referring Physician: Marianela Edwards Performed By: Bibiana Anton, LE, RVT Physical Exam Const alert and oriented x3 HEENT normocephalic Eyes EOMs intact bilaterally Chest inspection of chest normal Resp normal respiratory effort and clear to auscultation bilaterally Cardio Rate: regular rate Rhythm: regular rhythm Heart Sounds: S1 normal and S2 normal; Negative for click, gallop or murmur Extremity no pedal edema Psych mental status grossly normal Assessment & Plan Assessment/Plan (1) PAT (paroxysmal atrial tachycardia): PLAN: The patient's paroxysmal atrial tachycardia is resolved. She remains in sinus rhythm over the last 24 hours. She is tolerating the verapamil 120 mg 3 times daily at this time. She had been on 360 mg daily in her home environment. (2) Elevated troponin: PLAN: Patient's troponins were elevated and her echocardiogram shows segmental wall motion abnormalities. She will undergo left heart catheterization later this morning. Further recommendations pending the outcome of that catheterization. Left heart catheter reveals heavily calcified proximal LAD with no significant stenotic disease. There is 40 to 50% stenosis in the proximal one third. The left main trunk is free of any significant disease. The circumflex is a nondominant vessel and totally obstructed in the proximal one third compromising flow into an OM1 branch which appears to be small to moderate in size and fills via left to left collaterals. The right coronary artery is a dominant vessel it is subtotally obstructing the distal one third with what appears to be a ruptured plaque. There is competitive flow and collateral flow from the left system. The PDA appears to be a moderate size vessel in the AV continuation appears relatively small. The mitral valve shows 4+ mitral regurgitation with pulmonary veins filling fromthe LV gram. There is inferior severe hypokinesis and what appears to be lateral hypokinesis on the LOMAS ventriculogram. The ejection fraction is estimated at 30- 35%. The patient will be referred for surgical heart team approach as the best optionof treatment. The patient has what appears to be pulmonary insufficiency I do not have PFTs that she has recently moved here from [place] she is not aware that she has had any previous pulmonary function testing she does have an 97-64-esst-year smoking history. The patient also has a history of carotid endarterectomy on the right side and a totally occluded left carotid artery. This has been followed by the [facility] vascular team. I am reaching out to Dr. Freedman at [facility]. (3) CHF exacerbation: QUALIFIERS: Heart failure type: systolic Qualified Code(s): I50.23 - Acute on chronic systolic (congestive) heart failure PLAN: Patient has segmental wall motion normality with an ejection fraction estimated at 45% there is moderate left atrial enlargement. Further recommendations concerning medical therapy and/or any indicated interventions will be forthcoming once results of the left heart catheterizationare available. PLAN: Plan 1. Left heart cath this morning. 2. Further recommendations to follow?see above under #2. Charges/Coding Visit Charges Inpatient E&M: 78177 Subs Hosp L3 12/12/24 1608 <Electronically signed by Jean Paul Holt MD> Cosigner Signature (if applicable): CC: ~ Signed [facility] Work Phone: 1(425) 605-189106-11-2025 Progress note [facility] Medical Records Department [address] [place] [address] Progress Note - Cardiology 12/12/24923 MR#: [id number] Acct: [id number] Name: MAUREEN ANSARI ALYSHA Rep #:[id number] : 1955 69 From: Jean Paul Holt MD PCP: Dr. Marianela Edwards, DO Status:AD M IN Location: ICU ICU09-1 Subjective Subjective Patient was up in room being attended to by the nurse. She denies any anginal type symptoms at thistime. The patient is scheduled for left heart catheterization later this morning. Objective Data Vital Signs: Vital Signs Temp Pulse Resp BP Pulse Ox O2 Del Method O2 Flow Rate 97.5 F L 73 21 H 101/67 94 Nasal Cannula 6 12/12/24 01:00 12/12/24 08:11 12/12/24 07:00 12/12/24 08:11 12/12/24 08:30 12/12/24 08:30 12/12/24 08:30 FiO2 40 12/12/24 04:00 Oxygen Flow Rate (L/min) 6 Oxygen Delivery Method Nasal Cannula Weight: 115 lb 1.301 oz Body Mass Index (BMI) 22.6 Intake & Output: Intake and Output for Last 24 Hours 12/10/24 12/11/24 12/12/24 23:59 23:59 23:59 Intake Total 1240 / 1240 Output Total 1200 / 1200 250 / 250 Balance 40 / 40 -250 / -250 Lab / Micro Data 12/11/24 03:49 12/12/24 05:05 Labs: Laboratory Results - last 24 hr 12/11/24 08:47: Triglycerides 87, Cholesterol 175, LDL Cholesterol, Calc 131, VLDL Cholesterol 17, HDL Cholesterol 26 L, Cholesterol/HDL Ratio 6.65, Free T4 1.90 H 12/12/24 05:05: Sodium 138, Potassium 4.0, Chloride 102, Carbon Dioxide 22.6, Anion Gap 13, BUN 21 H, Creatinine 1.33 H, Estim Creat Clear Calc 29.08 L, Est GFR (MDRD) Non-Af 44 L, BUN/Creatinine Ratio 15.9, Glucose 130 H, Calcium 8.9 Rhythm Strip Rhythm Strip: Sinus Rhythm Rate: 80 Cardiology Labs/Tests 12/11/24 08:47: Triglycerides 87, Cholesterol 175, VLDL Cholesterol 17, HDL Cholesterol 26 L, Cholesterol/HDL Ratio 6.65 12/12/24 05:05: Sodium 138, Potassium 4.0, Chloride 102, Carbon Dioxide 22.6, Anion Gap 13, BUN 21 H, Creatinine 1.33 H, Est GFR (MDRD) Non-Af 44 L, BUN/Creatinine Ratio 15.9, Glucose 130 H, Calcium 8.9 Rhythm: EKG: ECHO: Stress Test: Cardiac Cath: PCI: CT Surgery: Holter monitor: EPS: PPM: CXR: Chest CT Scan: Radiography Diagnostic Testing: Radiology Impression Echocardiogram 12/11/24 05:55 Interpretation Summary Mild concentric left ventricular hypertrophy. Severe inferior, basal to mid posterior and basal to mid lateral hypokinesis. Estimated LVEF 45%. Stage II diastolic dysfunction. The left atrium is moderately enlarged. Severe mitral valve regurgitation. Ordering Physician: Francis Bojorquez Referring Physician: Marianela Edwards Performed By: Bibiana Anton RDCS, RVT Physical Exam Const alert and oriented x3 HEENT normocephalic Eyes EOMs intact bilaterally Chest inspection of chest normal Resp normal respiratory effort and clear to auscultation bilaterally Cardio Rate: regular rate Rhythm: regular rhythm Heart Sounds: S1 normal and S2 normal; Negative for click, gallop or murmur Extremity no pedal edema Psych mental status grossly normal Assessment & Plan Assessment/Plan (1) PAT (paroxysmal atrial tachycardia): PLAN: The patient's paroxysmal atrial tachycardia is resolved. She remains in sinus rhythm over thelast 24 hours. She is tolerating the verapamil 120 mg 3 times daily at this time. She had been on 360 mg daily in her home environment. (2) Elevated troponin: PLAN: Patient's troponins were elevated and her echocardiogram shows segmental wall motion abnormalities. She will undergo left heart catheterization later this morning. Further recommendations pending the outcome of that catheterization. Left heart catheter reveals heavily calcified proximal LAD with no significant stenotic disease. There is 40 to 50% stenosis in the proximal one third. The left main trunk is free of any significant disease. The circumflex is a nondominant vessel and totally obstructed in the proximal one third compromising flow into an OM1 branch which appears to be small to moderate in size and fills via left to left collaterals. The right coronary artery is a dominant vessel it is subtotally obstructing the distal one third with what appears to be a ruptured plaque. There is competitive flow and collateral flow from the leftsystem. The PDA appears to be a moderate size vessel in the AV continuation appears relatively small. The mitral valve shows 4+ mitral regurgitation with pulmonary veins filling fromthe LV gram. There is inferior severe hypokinesis and what appears to be lateral hypokinesis on the LOMAS ventriculogram.The ejection fraction is estimated at 30-35%. The patient will be referred for surgical heart team approach as the best optionof treatment. The patient has what appears to be pulmonary insufficiency I do not have PFTs that she has recently movedhere from [place] she is not aware that she has had any previous pulmonary function testing she does have an 91-33-bozd-year smoking history. The patient also has a history of carotid endarterectomy on the right side and a totally occluded left carotid artery. This has been followed by the [facility] vascular team. I am reaching out to Dr. Freedman at [facility]. (3) CHF exacerbation: QUALIFIERS: Heart failure type: systolic Qualified Code(s): I50.23 - Acute on chronic systolic (congestive) heart failure PLAN: Patient has segmental wall motion normality with an ejection fraction estimated at 45% there is moderate left atrial enlargement. Further recommendations concerning medical therapy and/or any indicated interventions will be forthcoming once results of the left heart catheterizationare available. PLAN: Plan 1. Left heart cath this morning. 2. Further recommendations to follow?see above under #2. Charges/Coding Visit Charges Inpatient E&M: 07410 Subs Hosp L3 12/12/24 1608 Cosigner Signature (if applicable): CC: ~ Signed [facility]06-11-2025 Progress note Author Sukhi Forbes [facility] Note Date/Time December 12, 2024 2:04 pm [facility] Medical Records Department [address] [place] [address] Progress Note - Hospitalist 12/12/24 6520 MR#: [id number] Acct: [id number] Name: MAUREEN ANSARI ALYSHA Rep #:[id number] : 1955 69 From: Sukhi Forbes DO PCP: Dr. Marianela Edwards, DO Status:AD M IN Location: ICU ICU09-1 Reason for Visit Reason for Visit: Diagnoses Unspecified protein-calorie malnutrition (12/11/24) Nicotine dependence, cigarettes, uncomplicated (12/11/24) Non-ST elevation (NSTEMI) myocardial infarction (12/11/24) Other supraventricular tachycardia (12/11/24) Heart failure, unspecified (12/11/24) Occlusion and stenosis of bilateral carotid arteries (12/11/24) Peripheral vascular disease, unspecified (12/11/24) Acute respiratory failure with hypoxia (12/11/24) Acute respiratory distress (12/11/24) Other specified abnormal findings of blood chemistry (12/11/24) Subjective Subjective Concerned that she is being poisoned. I asked specifically she feels that someone is poisoning her but she clarified that she is concerned that below her house is a meth lab and tunnels and those fumes are going directly into their ventilation. She states that her sisters try to submit a police report but wound up being pink slipped to a psychiatric unit. Objective Data Objective Data Vital Signs: Vital Signs Temp Pulse Resp BP Pulse Ox O2 Del Method O2 Flow Rate 36.4 C L 83 21 H 117/63 92 Nasal Cannula 6 12/12/24 01:00 12/12/24 07:00 12/12/24 07:00 12/12/24 07:00 12/12/24 07:00 12/12/24 07:00 12/12/24 07:00 FiO2 40 12/12/24 04:00 Oxygen Flow Rate (L/min) 6 Oxygen Delivery Method Nasal Cannula Weight: 52.2 kg Body Mass Index (BMI) 22.6 Intake & Output: Intake and Output for Last 24 Hours 12/10/24 12/11/24 12/12/24 23:59 23:59 23:59 Intake Total 1240 / 1240 Output Total 1200 / 1200 250 / 250 Balance 40 / 40 -250 / -250 Lab / Micro Data 12/11/24 03:49 12/12/24 05:05 Labs: Laboratory Results - last 24 hr 12/11/24 08:47: Triglycerides 87, Cholesterol 175, LDL Cholesterol, Calc 131, VLDL Cholesterol 17, HDL Cholesterol 26 L, Cholesterol/HDL Ratio 6.65, Free T4 1.90 H 12/12/24 05:05: Sodium 138, Potassium 4.0, Chloride 102, Carbon Dioxide 22.6, Anion Gap 13, BUN 21 H, Creatinine 1.33 H, Estim Creat Clear Calc 29.08 L, Est GFR (MDRD) Non-Af 44 L, BUN/Creatinine Ratio 15.9, Glucose 130 H, Calcium 8.9 Radiography Diagnostic Testing: Radiology Impression Echocardiogram 12/11/24 05:55 Interpretation Summary Mild concentric left ventricular hypertrophy. Severe inferior, basal to mid posterior and basal to mid lateral hypokinesis. Estimated LVEF 45%. Stage II diastolic dysfunction. The left atrium is moderately enlarged. Severe mitral valve regurgitation. Ordering Physician: Francis Bojorquez Referring Physician: Marianela Edwards Performed By: Bibiana Anton, LE, RVT Rhythm Strip Rhythm Strip: Sinus Rhythm Rate: 86 Physical Exam Const alert and no apparent distress HEENT head/scalp atraumatic and moist oral mucous membranes Resp normal respiratory effort, no retractions, no use of accessory muscles and clearto auscultation bilaterally Cardio regular rate, regular rhythm, S1 normal heart sound and S2 normal heart sound GI normal to inspection, nondistended, normoactive bowel sounds and soft to palpation Neuro Sensorium / Orientation: awake and alert Assessment & Plan Assessment/Plan (1) Acute hypoxic respiratory failure: PLAN: Was down to 86% on 2l. Eventually being placed on BiPAP, but since weaned down to 5liters 2/2 CHF exacerbation (2) CHF exacerbation: PLAN: Acute HFrEF Echo: EF 45%, severe inferior, basal to mid posterior and basal to mid lateral hypokinesisis. Stage II DD. Severe MR. Continue furosemide (3) NSTEMI, initial episode of care: PLAN: On ASA and therapeutic enoxaparin. Cards following DW Dr. Holt he is recommending transfer to tertiary facility for valve replacement and coronary revascularization. (4) Protein calorie malnutrition: PLAN: Nutrition consult (5) Low TSH level: PLAN: FT4 elevated. Will decrease levothyroxine from 112 to 75. Start on 12/13 Outpt follow up. (6) Poisoning: PLAN: Self-reported. But from her description was that she was not being intentionally poisoned, but fumes from a meth lab in tunnels under her house arein her ventilation. I am unclear about the accuracy of her claims. I did discusswith social work to further field her concerns. PLAN: Plan Chronic conditions: * PAD: s/p CEA. on cilostazol. * tobacco abuse: complicates care and recovery * anxiety: add PRN lorazepam. VTE prophylaxis: anticoagulated. Greater than 50 minutes of which great than 50% of the time was listening to thepatient talk about her poisoning and meth lab concerns. Charges/Coding Visit Charges Inpatient E&M: 76417 Subs Hosp L3 12/12/24 1408 <Electronically signed by Sukhi Forbes DO> Cosigner Signature (if applicable): CC: ~ Signed [facility] Work Phone: 1([phone]) 851-372506-11-2025 Progress note [facility] Medical Records Department [address] [place] [address] Progress Note - Hospitalist 12/12/24 0750 MR#: [id number] Acct: [id number] Name: MAUREEN ANSARI ALYSHA Rep #:[id number] : 1955 69 From: Sukhi Forbes DO PCP: Dr. Marianela Edwards, Status:AD M IN Location: ICU ICU09-1 Reason for Visit Reason for Visit: Diagnoses Unspecified protein-calorie malnutrition (12/11/24) Nicotine dependence, cigarettes, uncomplicated (12/11/24) Non-ST elevation (NSTEMI) myocardial infarction (12/11/24) Other supraventricular tachycardia (12/11/24) Heart failure, unspecified (12/11/24) Occlusion and stenosis of bilateral carotid arteries (12/11/24) Peripheral vascular disease, unspecified (12/11/24) Acute respiratory failure with hypoxia (12/11/24) Acute respiratory distress (12/11/24) Other specified abnormal findings of blood chemistry (12/11/24) Subjective Subjective Concerned that she is being poisoned. I asked specifically she feels that someone is poisoning her but she clarified that she is concerned that below her house is a meth lab and tunnels and those fumes are going directly into their ventilation. She states that her sisters try to submit a police report but wound up being pink slipped to a psychiatric unit. Objective Data Objective Data Vital Signs: Vital Signs Temp Pulse Resp BP Pulse Ox O2 Del Method O2 Flow Rate 36.4 C L 83 21 H 117/63 92 Nasal Cannula 6 12/12/24 01:00 12/12/24 07:00 12/12/24 07:00 12/12/24 07:00 12/12/24 07:00 12/12/24 07:00 12/12/24 07:00 FiO2 40 12/12/24 04:00 Oxygen Flow Rate (L/min) 6 Oxygen Delivery Method Nasal Cannula Weight: 52.2 kg Body Mass Index (BMI) 22.6 Intake & Output: Intake and Output for Last 24 Hours 12/10/24 12/11/24 12/12/24 23:59 23:59 23:59 Intake Total 1240 / 1240 Output Total 1200 / 1200 250 / 250 Balance 40 / 40 -250 / -250 Lab / Micro Data 12/11/24 03:49 12/12/24 05:05 Labs: Laboratory Results - last 24 hr 12/11/24 08:47: Triglycerides 87, Cholesterol 175, LDL Cholesterol, Calc 131, VLDL Cholesterol 17, HDL Cholesterol 26 L, Cholesterol/HDL Ratio 6.65, Free T4 1.90 H 12/12/24 05:05: Sodium 138, Potassium 4.0, Chloride 102, Carbon Dioxide 22.6, Anion Gap 13, BUN 21 H, Creatinine 1.33 H, Estim Creat Clear Calc 29.08 L, Est GFR (MDRD) Non-Af 44 L, BUN/Creatinine Ratio 15.9, Glucose 130 H, Calcium 8.9 Radiography Diagnostic Testing: Radiology Impression Echocardiogram 12/11/24 05:55 Interpretation Summary Mild concentric left ventricular hypertrophy. Severe inferior, basal to mid posterior and basal to mid lateral hypokinesis. Estimated LVEF 45%. Stage II diastolic dysfunction. The left atrium is moderately enlarged. Severe mitral valve regurgitation. Ordering Physician: Francis Bojorquez Referring Physician: Marianela Edwards Performed By: Bibiana Anton, LE, RVT Rhythm Strip Rhythm Strip: Sinus Rhythm Rate: 86 Physical Exam Const alert and no apparent distress HEENT head/scalp atraumatic and moist oral mucous membranes Resp normal respiratory effort, no retractions, no use of accessory muscles and clearto auscultation bilaterally Cardio regular rate, regular rhythm, S1 normal heart sound and S2 normal heart sound GI normal to inspection, nondistended, normoactive bowel sounds and soft to palpation Neuro Sensorium / Orientation: awake and alert Assessment & Plan Assessment/Plan (1) Acute hypoxic respiratory failure: PLAN: Was down to 86% on 2l. Eventually being placed on BiPAP, but since weaned down to 5liters 2/2 CHF exacerbation (2) CHF exacerbation: PLAN: Acute HFrEF Echo: EF 45%, severe inferior, basal to mid posterior and basal to mid lateral hypokinesisis. StageII DD. Severe MR. Continue furosemide (3) NSTEMI, initial episode of care: PLAN: On ASA and therapeutic enoxaparin. Cards following DW Dr. Holt he is recommending transfer to tertiary facility for valve replacement and coronary revascularization. (4) Protein calorie malnutrition: PLAN: Nutrition consult (5) Low TSH level: PLAN: FT4 elevated. Will decrease levothyroxine from 112 to 75. Start on 12/13 Outpt follow up. (6) Poisoning: PLAN: Self-reported. But from her description was that she was not being intentionally poisoned, but fumes from a meth lab in tunnels under her house arein her ventilation. I am unclear about the accuracy of her claims. I did discusswith social work to further field her concerns. PLAN: Plan Chronic conditions: * PAD: s/p CEA. on cilostazol. * tobacco abuse: complicates care and recovery * anxiety: add PRN lorazepam. VTE prophylaxis: anticoagulated. Greater than 50 minutes of which great than 50% of the time was listening to thepatient talk about her poisoning and meth lab concerns. Charges/Coding Visit Charges Inpatient E&M: 45843 [facility] L3 12/12/24 1404 Cosigner Signature (if applicable): CC: ~ Signed [facility]06-10-2025 Progress note Author Jean Paul Holt [facility] Note Date/Time December 11, 2024 4:35 pm [facility] Medical Records Department [address] [place] [address] Progress Note - Cardiology 12/11/24 1630 MR#: [id number] Acct: [id number] Name: MAUREEN ANSARI ALYSHA Rep #:[id number] : 1955 69 From: Jean Paul Holt MD PCP: Dr. Marianela Edwards, DO Status:AD M IN Location: ICU ICU09-1 Subjective Subjective Patient's echocardiogram today was consistent with segmental wall motion abnormalities. The patient spontaneously converted into normal sinus rhythm this afternoon. Her ECG shows an old inferior wall infarct pattern with normal sinus rhythm and no acute ST-T wave changes. The patient's troponin peaked at 2100. And given her known peripheral vascular disease I would recommend that she undergo left heart catheterization. The procedure risk/benefit and alternatives were explained to the patient in detail she voiced understanding and agrees to proceed. The patient does have only 1+ right radial pulse 2+ left radial pulse 1-2+ rightfemoral with a right femoral bruit was noted. Objective Data Vital Signs: Vital Signs Temp Pulse Resp BP Pulse Ox O2 Del Method O2 Flow Rate 97.6 F L 86 22 H 107/64 93 Nasal Cannula 5 12/11/24 04:15 12/11/24 15:00 12/11/24 15:00 12/11/24 15:00 12/11/24 15:00 12/11/24 15:50 12/11/24 15:50 FiO2 60 12/11/24 02:59 Oxygen Flow Rate (L/min) 5 Oxygen Delivery Method Nasal Cannula Weight: 116 lb 2.938 oz Body Mass Index (BMI) 22.8 Intake & Output: Intake and Output for Last 24 Hours 12/09/24 12/10/24 12/11/24 23:59 23:59 23:59 Intake Total 1040 / 1040 Output Total 650 / 650 Balance 390 / 390 Lab / Micro Data Attestation: I reviewed the patient's lab results. 12/11/24 03:49 12/11/24 03:49 Labs: Laboratory Results - last 24 hr 12/10/24 23:45: WBC 11.3 H, RBC 4.45, Hgb 13.7, Hct 40.4, MCV 90.8, MCH 30.8, MCHC 33.9, RDW Std Deviation 43.1, RDW Coeff of Luis 13.2, Plt Count 377, MPV 10.1, Immature Gran % (Auto) 1.700 H, Neut % (Auto) 66.3, Lymph % (Auto) 16.5 L,[place] % (Auto) 11.4 H, Eos % (Auto) 3.1, Baso % (Auto) 1.0, Absolute Neuts (auto)7.5, Absolute Lymphs (auto) 1.87, Nucleated RBC % 0, Sodium 137, Potassium 3.9, Chloride 106, Carbon Dioxide 18.3 L, Anion Gap 12, BUN 13, Creatinine 1.08, Estim Creat Clear Calc 39.30 L, Est GFR (MDRD) Non-Af 56 L, BUN/Creatinine Ratio 11.8, Glucose 126 H, Calcium 8.9, Troponin T High Sens 1980 H*, NT pro BNP II 7545 H 12/11/24 01:49: Troponin T Hi Sens 2 Hr 1735 H* 12/11/24 03:49: WBC 11.6 H, RBC 4.55, Hgb 14.0, Hct 41.5, MCV 91.2, MCH 30.8, MCHC 33.7, RDW Std Deviation 43.5, RDW Coeff of Luis 13.0, Plt Count 379, MPV 9.8, Immature Gran % (Auto) 0.400, Neut % (Auto) 69.7, Lymph % (Auto) 16.7 L, [place] % (Auto) 9.6, Eos % (Auto) 2.9, Baso % (Auto) 0.7, Absolute Neuts (auto) 8.1 H, Absolute Lymphs (auto) 1.93, Nucleated RBC % 0, Sodium 137, Potassium 4.0, Chloride 104, Carbon Dioxide 21.2, Anion Gap 12, BUN 12, Creatinine 1.08, Estim Creat Clear Calc 35.81 L, Est GFR (MDRD) Non-Af 56 L, BUN/Creatinine Ratio 10.7, Glucose 137 H, Calcium 9.0, Magnesium 1.9, Troponin T Hi Sens 4Hr 2120 H*,TSH 0.046 L 12/11/24 08:47: Triglycerides 87, Cholesterol 175, LDL Cholesterol, Calc 131, VLDL Cholesterol 17, HDL Cholesterol 26 L, Cholesterol/HDL Ratio 6.65, Free T4 1.90 H Rhythm Strip Rhythm Strip: Sinus Rhythm Rate: 86 Cardiology Labs/Tests 12/10/24 23:45: WBC 11.3 H, RBC 4.45, Hgb 13.7, Hct 40.4, MCV 90.8, MCH 30.8, MCHC 33.9, Plt Count 377, MPV 10.1, Immature Gran % (Auto) 1.700 H, Neut % (Auto) 66.3, Lymph % (Auto) 16.5 L, [place] % (Auto) 11.4 H, Eos % (Auto) 3.1, Baso% (Auto) 1.0, Absolute Neuts (auto) 7.5, Nucleated RBC % 0, Sodium 137, Potassium 3.9, Chloride 106, Carbon Dioxide 18.3 L, Anion Gap 12, BUN 13, Creatinine 1.08, Est GFR (MDRD) Non-Af 56 L, BUN/Creatinine Ratio 11.8, Glucose 126 H, Calcium 8.9 12/11/24 03:49: WBC 11.6 H, RBC 4.55, Hgb 14.0, Hct 41.5, MCV 91.2, MCH 30.8, MCHC 33.7, Plt Count 379, MPV 9.8, Immature Gran % (Auto) 0.400, Neut % (Auto) 69.7, Lymph % (Auto) 16.7 L, [place] % (Auto) 9.6, Eos % (Auto) 2.9, Baso % (Auto) 0.7, Absolute Neuts (auto) 8.1 H, Nucleated RBC % 0, Sodium 137, Potassium 4.0, Chloride 104, Carbon Dioxide 21.2, Anion Gap 12, BUN 12, Creatinine 1.08, Est GFR (MDRD) Non- Af 56 L, BUN/Creatinine Ratio 10.7, Glucose 137 H, Calcium 9.0, Magnesium 1.9 12/11/24 08:47: Triglycerides 87, Cholesterol 175, VLDL Cholesterol 17, HDL Cholesterol 26 L, Cholesterol/HDL Ratio 6.65 Rhythm: EKG: ECHO: Stress Test: Cardiac Cath: PCI: CT Surgery: Holter monitor: EPS: PPM: CXR: Chest CT Scan: Radiography Diagnostic Testing: Radiology Impression Chest X-Ray 12/10/24 23:52 IMPRESSION: Cardiomegaly and CHF changes. Follow-up is advised Reading [facility] Chest CTA 12/11/24 00:48 IMPRESSION: No CT evidence of pulmonary embolus or aortic dissection. Moderate bilateral pleural effusions. Passive atelectatic airspace disease/consolidations of the lower lobes. Moderate interstitial pulmonary edema. Mild alveolar pulmonary edema. Mildly prominent mediastinal lymph nodes are noted with the largest measuring 1.4 cm. Small sliding hiatal hernia. Dilated supra hepatic IVC suggestive of dysfunction of the right cardiac cavities. Bilateral benign chronic hypertrophy of the adrenal glands. Reading Location[facility] Echocardiogram 12/11/24 05:55 Interpretation Summary Mild concentric left ventricular hypertrophy. Severe inferior, basal to mid posterior and basal to mid lateral hypokinesis. Estimated LVEF 45%. Stage II diastolic dysfunction. The left atrium is moderately enlarged. Severe mitral valve regurgitation. Ordering Physician: Francis Bojorquez Referring Physician: Marianela Edwards Performed By: Bibiana Anton, LE, RVT Physical Exam Const alert and oriented x3 HEENT normocephalic Eyes EOMs intact bilaterally Cardio Peripheral Pulses: radial pulses present right 1+ and left 2+ and femoral pulsespresent right (Bruit noted.) 2+ Assessment & Plan Assessment/Plan (1) NSTEMI, initial episode of care: PLAN: Patient's enzyme elevation, her past medical history with significant peripheral vascular disease, and her ECG showing inferior wall and part with segmental wall motion abnormality on the echocardiogram warrants further invasive evaluation of the patient's coronary anatomy. A left heart catheterization is recommended. I discussed this in detail with the patient including risk benefit and alternatives. The patient voiced understanding and agrees to proceed with a left heart catheterization tomorrow morning. PLAN: Plan Left heart cath in a.m. with Dr. Galarza 12/11/241634 <Electronically signed by Jean Paul Holt MD> Cosigner Signature (if applicable): CC: ~ Signed [facility] Work Phone: [phone] Progress note [facility] Medical Records Department [address] [place] [address] Progress Note - Cardiology 12/11/24 1630 MR#: [id number] Acct: [id number] Name: MAUREEN ANSARI ALYSHA Rep #:[id number] : 1955 69 From: Jean Paul Holt MD PCP: Dr. Marianela Edwards, DO Status:AD M IN Location: ICU ICU09-1 Subjective Subjective Patient's echocardiogram today was consistent with segmental wall motion abnormalities. The patientspontaneously converted into normal sinus rhythm this afternoon. Her ECG shows an old inferior wallinfarct pattern with normal sinus rhythm and no acute ST-T wave changes. The patient's troponin peaked at 2100. And given her known peripheral vascular disease I would recommend that she undergo left heart catheterization. The procedure risk/benefit and alternatives were explained to the patient in detail she voiced understanding and agrees to proceed. The patient does have only 1+ right radial pulse 2+ left radial pulse 1-2+ rightfemoral with a right femoral bruit was noted. Objective Data Vital Signs: Vital Signs Temp Pulse Resp BP Pulse Ox O2 Del Method O2 Flow Rate 97.6 F L 86 22 H 107/64 93 Nasal Cannula 5 12/11/24 04:15 12/11/24 15:00 12/11/24 15:00 12/11/24 15:00 12/11/24 15:00 12/11/24 15:50 12/11/24 15:50 FiO2 60 12/11/24 02:59 Oxygen Flow Rate (L/min) 5 Oxygen Delivery Method Nasal Cannula Weight: 116 lb 2.938 oz Body Mass Index (BMI) 22.8 Intake & Output: Intake and Output for Last 24 Hours 12/09/24 12/10/24 12/11/24 23:59 23:59 23:59 Intake Total 1040 / 1040 Output Total 650 / 650 Balance 390 / 390 Lab / Micro Data Attestation: I reviewed the patient's lab results. 12/11/24 03:49 12/11/24 03:49 Labs: Laboratory Results - last 24 hr 12/10/24 23:45: WBC 11.3 H, RBC 4.45, Hgb 13.7, Hct 40.4, MCV 90.8, MCH 30.8, MCHC 33.9, RDW Std Deviation 43.1, RDW Coeff of Luis 13.2, Plt Count 377, MPV 10.1, Immature Gran % (Auto) 1.700 H, Neut %(Auto) 66.3, Lymph % (Auto) 16.5 L,[place] % (Auto) 11.4 H, Eos % (Auto) 3.1, Baso % (Auto) 1.0, Absolute Neuts (auto)7.5, Absolute Lymphs (auto) 1.87, Nucleated RBC % 0, Sodium 137, Potassium 3.9, Chloride 106, Carbon Dioxide 18.3 L, Anion Gap 12, BUN 13, Creatinine 1.08, Estim Creat Clear Calc 39.30L, Est GFR (MDRD) Non-Af 56 L, BUN/Creatinine Ratio 11.8, Glucose 126 H, Calcium 8.9, Troponin T High Sens 1980 H*, NT pro BNP II 7545 H 12/11/24 01:49: Troponin T Hi Sens 2 Hr 1735 H* 12/11/24 03:49: WBC 11.6 H, RBC 4.55, Hgb 14.0, Hct 41.5, MCV 91.2, MCH 30.8, MCHC 33.7, RDW Std Deviation 43.5, RDW Coeff of Luis 13.0, Plt Count 379, MPV 9.8, Immature Gran % (Auto) 0.400, Neut % (Auto) 69.7, Lymph % (Auto) 16.7 L, [place] % (Auto) 9.6, Eos % (Auto) 2.9, Baso % (Auto) 0.7, Absolute Neuts (auto) 8.1 H, Absolute Lymphs (auto) 1.93, Nucleated RBC % 0, Sodium 137, Potassium 4.0, Chloride 104, Carbon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 Flow Rate (L/min) 6 Fraction of Inspired Oxygen (FIO2) 60 12/11/24 01:32 12/11/24 01:32 12/11/24 02:19 Temperature 98.2 F Temperature Source Temporal Pulse Rate 99 84 Respiratory Rate 33 H 24 H Respiratory Effort Respiratory Pattern Tachypnea Blood Pressure 127/75 H Blood Pressure Mean 92 Pulse Ox 98 97 96 Oxygen Delivery Method Bi-pap Bi-pap Oxygen Flow Rate (L/min) Fraction of Inspired Oxygen (FIO2) 60 60 60 12/11/24 02:27 12/11/24 02:59 Temperature 98.2 F Temperature Source Pulse Rate 86 80 Respiratory Rate 25 H 21 H Respiratory Effort Respiratory Pattern Blood Pressure 127/75 H 125/70 H Blood Pressure Mean 92 88 Pulse Ox 87 97 Oxygen Delivery Method Bi-pap Oxygen Flow Rate (L/min) Fraction of Inspired Oxygen (FIO2) 60 MDM MDM MDM Narrative Medical decision making narrative: Patient is a 69-year-old female who presented to the emergency department with achief complaint of cough, shortness of breath, chest pain. On the differential diagnose includes but not limited to ACS, pneumonia, pneumothorax, COPD exacerbation, upper respiratory infection secondary to viral etiology. Once workup is obtained reviewed she will be reevaluated. Patient's CBC showed a mild leukocytosis of 11,000, hemoglobin of 13.7, plateletcount at 377. Patient sodium is 137, potassium normal 3.9, creatinine was normal at 1.08. Patient's troponin was 1980, delta troponin of 1735, proBNP elevated to 7545. Patient chest x-ray reviewed by myself and by radiology whichshowed cardiomegaly and CHF changes follow-up is advised. Patient's EKG showed sinus rhythm with a rate of 92 bpm which also showed nonspecific ST changes noted in the lateral leads this was compared to previous EKG from 03/07/2024 whichactually looks improved when compared to this EKG. I added on a CTA of her chest with regards to her elevated troponin and proBNP. Patient did have increased shortness of breath and tachypnea here in the emergency department and became further hypoxic on her nasal cannula therefore we placed her on BiPAP. Patient significantly improved on BiPAP. Patient CTA of the chest reviewed which showed no evidence of pulmonary embolism there is a moderate bilateral pleural effusions noted. Moderate interstitial pulmonary edema. Mild alveolar pulmonary edema. Mildly prominent mediastinal lymph nodes are noted with the largest measuring 1.4 cm. Small sliding hiatal hernia. Dilated suprahepatic IVC suggestive of dysfunction of the right cardiac cavities. Benign chronic hypertrophy of the adrenal glands bilaterally. Bedside echocardiogram performed no large pericardial effusion noted. Called and discussed case with on-call prototype fabricator Dr. Holt who states that he would recommend giving Lovenox 1 mg/kg which was ordered for NSTEMI. Patientwas given 40 mg IV Lasix as well. Discussed case with admitting physician Dr. Bojorquez who accept patient for admission. Patient was notified is agreeable this plan as well as family at bedside all question concerns answered. Lab Data Labs: Laboratory Results - last 24 hr 12/10/24 12/11/24 23:45 01:49 WBC 11.3 H RBC 4.45 Hgb 13.7 Hct 40.4 MCV 90.8 MCH 30.8 MCHC 33.9 RDW Std Deviation 43.1 RDW Coeff of Luis 13.2 Plt Count 377 MPV 10.1 Immature Gran % (Auto) 1.700 H Neut % (Auto) 66.3 Lymph % (Auto) 16.5 L [place] % (Auto) 11.4 H Eos % (Auto) 3.1 Baso % (Auto) 1.0 Absolute Neuts (auto) 7.5 Absolute Lymphs (auto) 1.87 Nucleated RBC % 0 Sodium 137 Potassium 3.9 Chloride 106 Carbon Dioxide 18.3 L Anion Gap 12 BUN 13 Creatinine 1.08 Estim Creat Clear Calc 39.30 L Est GFR (MDRD) Non-Af 56 L BUN/Creatinine Ratio 11.8 Glucose 126 H Calcium 8.9 Troponin T High Sens 1980 H* Troponin T Hi Sens 2 Hr 1735 H* NT pro BNP II 7545 H Radiography Diagnostic Testing: Clinical Impression(s) from Imaging Studies Chest X-Ray 12/10/24 23:52 IMPRESSION: Cardiomegaly and CHF changes. Follow-up is advised Reading [facility] Chest CTA 12/11/24 00:48 IMPRESSION: No CT evidence of pulmonary embolus or aortic dissection. Moderate bilateral pleural effusions. Passive atelectatic airspace disease/consolidations of the lower lobes. Moderate interstitial pulmonary edema. Mild alveolar pulmonary edema. Mildly prominent mediastinal lymph nodes are noted with the largest measuring 1.4 cm. Small sliding hiatal hernia. Dilated supra hepatic IVC suggestive of dysfunction of the right cardiac cavities. Bilateral benign chronic hypertrophy of the adrenal glands. Reading Location: [place] [address] Discharge Plan Triage Chief Complaint: Shortness of Breath ED Provider: Isaac Araujo Dx/Rx/DC Orders Clinical Impression: Acute hypoxic respiratory failure, Pleural effusion due to CHF (congestive heart failure), Myocardial infarction type 2 Prescriptions: No Action cilostazol 50 mg tablet 50 mg PO BID amlodipine 10 mg tablet 10 mg PO DAILY levothyroxine 112 mcg tablet 112 mcg PO DAILY Primary Care Provider: Marianela Edwards Referrals: Care Physician,No Primary [Non-Staff] - Print Language: [place] Disposition Disposition: Acute Care Hospital [facility] What to do if you have Problems For any increased pain, shortness of breath, bleeding, nausea or vomiting, chestpain, or any unexpected problems, contact your Primary Care Provider. Call [facility] ([phone]) or report to the closest Emergency Room. Call 911 if necessary. 12/11/24 0306 <Electronically signed by Isaac Araujo DO> Cosigner Signature (if applicable): CC: Dr. Marianela Edwards DO ~ Signed [facility] Work Phone: [phone]) 890-229506-10-2025 History and physical note Author Francis Bojorquez [facility] Note Date/Time December 11, 2024 2:59 am [facility] Medical Records Department [address] [place] [address] History & Physical Exam 12/11/24 0233 MR#: [id number] Acct: [id number] Name: MAUREEN ANSARI ALYSHA Rep #:[id number] : 1955 69 From: Francis Bojorquez MD PCP: Dr. Marianela Edwards DO Status:RE G ER Location: ED HPI - General General Date of Admission: 12/11/24 Date of Service: 12/11/24 Chief Complaint: Shortness of breath HPI Narrative MAUREEN BARRON, is a 69 F who presents to the emergency room with chief complaint of shortness of breath. Patient has become progressively short of breath over the past several days. Patient has significant past medical historyof peripheral vascular disease and severe carotid disease with 100% occlusion ofthe left and surgical intervention done to her right carotid artery. She is a smoker. She had been living in [place] and moved here to be near her sister and previously had a leg fracture and was struggling to regain ambulation with rehab for prolonged period of time and reportedly had lower extremity peripheralvascular disease as well. In the emergency room patient was tachypneic showing signs of impending respiratory failure. Laboratory studies reveal white blood cell count 11.3, hemoglobin 13.7, hematocrit 40.4, platelets 377, sodium 137, potassium 3.9, chloride 106, bicarb 18.3, BUN 13, creatinine 1.08, glucose 126, troponin 1980, [place] 7545. CT angiogram of the chest was negative for pulmonaryembolism but did show moderate bilateral pleural effusions. Chest x-ray revealed cardiomegaly. In the emergency room her respiratory rate was as high as 40 and BiPAP therapy was supplemental oxygen was initiated and patient responded along with furosemide IV in the emergency room. A bedside ultrasound was performed in the emergency room which was negative for pericardial effusion. Despite her known peripheral vascular disease and carotid artery disease patient seems surprised to have cardiac issues at this time. Due to impending respiratory failure need for BiPAP therapy along with markedly elevated troponinand natruretic peptide patient will be admitted to the intensive care unit for further management of congestive heart failure. [facility] Medical History (Updated 12/11/24 @ 02:[address] Francis Bojorquez MD) Carpal tunnel syndrome on right Closed displaced bicondylar fracture of left tibia with routine healing CKD (chronic kidney disease) Cannabis use disorder HLD (hyperlipidemia) Tobacco use Carotid arterial disease Hypertension Home Medications ?Medication ?Instructions ?Recorded ?Last Taken ?Type amlodipine 10 mg tablet 10 mg PO DAILY htn 03/07/24 12/10/24 History cilostazol 50 mg tablet 50 mg PO BID 10/18/24 History levothyroxine 112 mcg tablet 112 mcg PO DAILY 12/10/24 12/10/24 History Allergy/AdvReac Type Severity Reaction Status Date / Time No Known Allergies Allergy Verified 12/10/24 23:26 Family History Mother , 89 Hypertension Pulmonary fibrosis Heart disease Glaucoma Father , 80 Hypertension Heart disease Diabetes Surgical History History of CEA (carotid endarterectomy) History of hip surgery Social History household members: family current occupational status: retired pets and animals: No Smoking Status: Current every day smoker tobacco type: cigarettes alcohol intake: never substance use type: marijuana caffeine: Yes Type: coffee Number of servings: 1 do you feel safe at home: Yes ROS Constitutional Constitutional: Reports chills and weakness; Denies fever(s) Eyes Eyes: Denies blurry vision ENT HEENT: Denies abnormal hearing Cardiovascular Cardiovascular: Denies chest pain Respiratory/Chest Respiratory/Chest: Reports shortness of breath at rest Gastrointestinal Gastrointestinal: Denies abdominal pain Genitourinary Genitourinary: Denies dysuria Musculoskeletal Musculoskeletal: Denies back pain Integumentary Integumentary: Denies dry skin or wounds Neurologic Neurologic: Denies abnormal speech Psychiatric Psychiatric: Denies anxiety Vital Signs Vital Signs Vital Signs: 12/10/24 23:24 12/10/24 23:26 12/10/24 23:34 Temperature 98.2 F 98.2 F Temperature Source Oral Oral Pulse Rate 97 88 Respiratory Rate 16 16 Respiratory Effort Short of Breath Respiratory Pattern Blood Pressure 117/65 117/65 Blood Pressure Mean 82 82 Pulse Ox 92 95 Oxygen Delivery Method Room Air Room Air Room Air Oxygen Flow Rate (L/min) Fraction of Inspired Oxygen (FIO2) 12/10/24 23:55 12/11/24 00:26 12/11/24 00:30 Temperature 98.2 F Temperature Source Oral Pulse Rate 91 Respiratory Rate 14 Respiratory Effort Respiratory Pattern Blood Pressure 122/70 H Blood Pressure Mean 87 Pulse Ox 92 92 Oxygen Delivery Method Room Air Room Air Nasal Cannula Oxygen Flow Rate (L/min) 2 Fraction of Inspired Oxygen (FIO2) 12/11/24 01:00 12/11/24 01:00 12/11/24 01:05 Temperature 98.2 F Temperature Source Oral Pulse Rate 100 Respiratory Rate 26 H Respiratory Effort Respiratory Pattern Blood Pressure 126/62 H Blood Pressure Mean 83 Pulse Ox 84 90 86 Oxygen Delivery Method Room Air Nasal Cannula Nasal Cannula Oxygen Flow Rate (L/min) 3 2 Fraction of Inspired Oxygen (FIO2) 12/11/24 01:32 12/11/24 01:32 12/11/24 01:32 Temperature Temperature Source Pulse Rate Respiratory Rate 26 H Respiratory Effort Respiratory Pattern Blood Pressure Blood Pressure Mean Pulse Ox 95 85 96 Oxygen Delivery Method Bi-pap Nasal Cannula Bi-pap Oxygen Flow Rate (L/min) 6 Fraction of Inspired Oxygen (FIO2) 60 12/11/24 01:32 12/11/24 01:32 12/11/24 02:19 Temperature 98.2 F Temperature Source Temporal Pulse Rate 99 84 Respiratory Rate 33 H 24 H Respiratory Effort Respiratory Pattern Tachypnea Blood Pressure 127/75 H Blood Pressure Mean 92 Pulse Ox 98 97 96 Oxygen Delivery Method Bi-pap Bi-pap Oxygen Flow Rate (L/min) Fraction of Inspired Oxygen (FIO2) 60 60 60 12/11/24 02:27 Temperature 98.2 F Temperature Source Pulse Rate 86 Respiratory Rate 25 H Respiratory Effort Respiratory Pattern Blood Pressure 127/75 H Blood Pressure Mean 92 Pulse Ox 87 Oxygen Delivery Method Oxygen Flow Rate (L/min) Fraction of Inspired Oxygen (FIO2) Weight Weight: 124 lb 12.506 oz Body Mass Index (BMI) 24.3 Physical Exam Const oriented x3 General Appearance: cooperative HEENT normocephalic and head/scalp atraumatic Eyes PERRL Neck no lymphadenopathy Lymph Lymphatic: no lymphadenopathy noted Resp Effort and Inspection: tachypneic and respiratory distress Auscultation: diminished lung sounds bilateral; Negative for rales, rhonchi or wheezes Cardio regular rate, regular rhythm, S1 normal heart sound and S2 normal heart sound GI normal to inspection, nondistended, normoactive bowel sounds Extremity no calf tenderness Skin General Skin Exam: no breakdown Neuro no focal motor deficits and no sensory deficits noted Speech: speech normal Psych thought process normal, cooperative and affect normal Results Lab / Micro Data 12/10/24 23:45 12/10/24 23:45 Labs: Laboratory Results - last 24 hr 12/10/24 23:45: WBC 11.3 H, RBC 4.45, Hgb 13.7, Hct 40.4, MCV 90.8, MCH 30.8, MCHC 33.9, RDW Std Deviation 43.1, RDW Coeff of Luis 13.2, Plt Count 377, MPV 10.1, Immature Gran % (Auto) 1.700 H, Neut % (Auto) 66.3, Lymph % (Auto) 16.5 L,[place] % (Auto) 11.4 H, Eos % (Auto) 3.1, Baso % (Auto) 1.0, Absolute Neuts (auto)7.5, Absolute Lymphs (auto) 1.87, Nucleated RBC % 0, Sodium 137, Potassium 3.9, Chloride 106, Carbon Dioxide 18.3 L, Anion Gap 12, BUN 13, Creatinine 1.08, Estim Creat Clear Calc 39.30 L, Est GFR (MDRD) Non-Af 56 L, BUN/Creatinine Ratio 11.8, Glucose 126 H, Calcium 8.9, Troponin T High Sens 1980 H*, NT pro BNP II 7545 H Imaging Radiology Impression Chest X-Ray 12/10/24 23:52 IMPRESSION: Cardiomegaly and CHF changes. Follow-up is advised Reading Location: [place] [address] Chest CTA 12/11/24 00:48 IMPRESSION: No CT evidence of pulmonary embolus or aortic dissection. Moderate bilateral pleural effusions. Passive atelectatic airspace disease/consolidations of the lower lobes. Moderate interstitial pulmonary edema. Mild alveolar pulmonary edema. Mildly prominent mediastinal lymph nodes are noted with the largest measuring 1.4 cm. Small sliding hiatal hernia. Dilated supra hepatic IVC suggestive of dysfunction of the right cardiac cavities. Bilateral benign chronic hypertrophy of the adrenal glands. Reading Location: [place] [address] Assessment & Plan Assessment/Plan (1) Congestive heart failure: (2) Elevated troponin: (3) Respiratory distress, acute: (4) Peripheral vascular disease: (5) Smoking 1/2 pack a day or less: PLAN: Plan 1 acute respiratory distress?admit patient to intensive care unit, continue BiPAP therapy initiated in the emergency room will add furosemide 40 mg twice daily, repeat CBC BMp in a.m. 2. Congestive heart failure?consult cardiology, obtain echocardiogram, due to elevated troponins will continue to cycle cardiac markers. 3. Known peripheral vascular disease with hyperlipidemia?continue statin medication we will add Lovenox 1 mg/kg IV every 12 hours as this would be indicated in the setting of elevated troponin 4. DVT prophylaxis?low molecular weight heparin as above 5. Smoking?cessation encouraged Charges/Coding Visit Charges Inpatient E&M: 60220 Init Hosp L3 12/11/24258 <Electronically signed by Francis Bojorquez MD> Cosigner Signature (if applicable): CC: Dr. Marianela Edwards DO; Dr. Francis Bojorquez MD~ Signed [facility] Work Phone: [phone]) 821-971106-10-2025 Discharge summary [facility] Medical Records Department [address] [place] [address] Emergency Department Summary 12/10/24 MR#: [id number] Acct: [id number] Name: MAUREEN ANSARI Rep #:[id number] : 1955 69 From: Isaac Araujo DO PCP: Dr. Marianela Edwards DO Status:AD M IN Location: ICU ICU09-[address] Isaac Araujo DO on 12/11/24 at 0322 Right before the nursing staff went to take the patient to the intensive care unit the patient appears to have went into A-fib RVR I went into assess the patient and she was tachycardic to the 140s when I asked the staff to repeat an EKG by the time they arrived to bedside she converted back to normal sinus rhythm. We will attempt to obtain the arrhythmia on EKG prior to going upstairsif she continues to flip in and out of what appears to be A-fib with RVR we willtry 5 mg of Lopressor. 12/11/24 0322 Cosigner Signature (if applicable): cc: Dr. Marianela Edwards DO ~* Signed ADDENDUM by Dr. Isaac Araujo DO on 12/11/24 at 0309 At this point in time there is no identifiable source infection therefore do notfeel that antibiotics are indicated. Critical care time 47 minutes 12/11/24 0309 Cosigner Signature (if applicable): cc: Dr. Marianela Edwards DO ~* Signed HPI History of Present Illness Chief Complaint: Shortness of Breath Narrative Narrative: Patient is a 69-year-old female with past medical history of peripheral vasculardisease, hypertension, chronic kidney disease, carotid artery disease who presented to the emergency department chief complaint of cough, chest pain and shortness of breath. According to the patient for the last few days she has hadworsening cough and shortness of breath states that her symptoms started about aweek ago. Patient denies any recent sick contacts. Patient states that she does smoke and does not have inhalers at home. Patient denies any history of recent travel, surgeries, DVT or PE [facility] Medical History (Updated 12/11/24 @ 03:[address] Isaac Araujo DO) Carpal tunnel syndrome on right Closed displaced bicondylar fracture of left tibia with routine healing CKD (chronic kidney disease) Cannabis use disorder HLD (hyperlipidemia) Tobacco use Carotid arterial disease Hypertension Home Medications ?Medication ?Instructions ?Recorded ?Last Taken ?Type amlodipine 10 mg tablet 10 mg PO DAILY htn 03/07/24 12/10/24 History cilostazol 50 mg tablet 50 mg PO BID 10/18/24 History levothyroxine 112 mcg tablet 112 mcg PO DAILY 12/10/24 12/10/24 History Allergy/AdvReac Type Severity Reaction Status Date / Time No Known Allergies Allergy Verified 12/10/24 23:26 Family History Mother , 89 Hypertension Pulmonary fibrosis Heart disease Glaucoma Father , 80 Hypertension Heart disease Diabetes Surgical History History of CEA (carotid endarterectomy) History of hip surgery Social History household members: family current occupational status: retired pets and animals: No Smoking Status: Current every day smoker tobacco type: cigarettes alcohol intake: never substance use type: marijuana caffeine: Yes Type: coffee Number of servings: 1 do you feel safe at home: Yes ROS ROS ED ROS Narrative Constitutional: Denies fevers, chills, headaches Eyes: Denies change in vision vision blurry vision Cardiovascular: Complains of chest discomfort states that mainly when she coughsdenies palpitations Respiratory: Complains of cough denies sputum production Abdomen: Denies abdominal pain nausea vomiting diarrhea : Denies urinary symptoms Neurological: Denies numbness, wheeze, tingling Musculoskeletal: Denies back pain Skin: Denies rashes or lesions EXAM Physical Exam Narrative Exam Narrative: General: Patient lying in bed rest comfortably do not appear to be in acute distress Head: Atraumatic, normocephalic Eyes: PERRL bilaterally, EOMI bilaterally, no conjunctival injection noted Neck: Soft, supple, trachea midline Cardiovascular: Regular in rhythm no murmurs gallops rubs noted Respiratory: Clear to auscultation bilaterally no rales rhonchi or wheezes noted Abdomen: Soft, nondistended, no tenderness to palpation Extremities: +4/5 strength noted in the bilateral upper and lower extremities, radial pulses +2/4 in the bilateral extremities Neurological: Patient following commands knew that she was at [facility] the year is 2024 Skin: Warm, dry, intact no rashes or lesions noted Const Vital Signs: 12/10/24 23:24 12/10/24 23:26 12/10/24 23:34 Temperature 98.2 F 98.2 F Temperature Source Oral Oral Pulse Rate 97 88 Respiratory Rate 16 16 Respiratory Effort Short of Breath Respiratory Pattern Blood Pressure 117/65 117/65 Blood Pressure Mean 82 82 Pulse Ox 92 95 Oxygen Delivery Method Room Air Room Air Room Air Oxygen Flow Rate (L/min) Fraction of Inspired Oxygen (FIO2) 12/10/24 23:55 12/11/24 00:26 12/11/24 00:30 Temperature 98.2 F Temperature Source Oral Pulse Rate 91 Respiratory Rate 14 Respiratory Effort Respiratory Pattern Blood Pressure 122/70 H Blood Pressure Mean 87 Pulse Ox 92 92 Oxygen Delivery Method Room Air Room Air Nasal Cannula Oxygen Flow Rate (L/min) 2 Fraction of Inspired Oxygen (FIO2) 12/11/24 01:00 12/11/24 01:00 12/11/24 01:05 Temperature 98.2 F Temperature Source Oral Pulse Rate 100 Respiratory Rate 26 H Respiratory Effort Respiratory Pattern Blood Pressure 126/62 H Blood Pressure Mean 83 Pulse Ox 84 90 86 Oxygen Delivery Method Room Air Nasal Cannula Nasal Cannula Oxygen Flow Rate (L/min) 3 2 Fraction of Inspired Oxygen (FIO2) 12/11/24 01:32 12/11/24 01:32 12/11/24 01:32 Temperature Temperature Source Pulse Rate Respiratory Rate 26 H Respiratory Effort Respiratory Pattern Blood Pressure Blood Pressure Mean Pulse Ox 95 85 96 Oxygen Delivery Method Bi-pap Nasal Cannula Bi-pap Oxygen Flow Rate (L/min) 6 Fraction of Inspired Oxygen (FIO2) 60 12/11/24 01:32 12/11/24 01:32 12/11/24 02:19 Temperature 98.2 F Temperature Source Temporal Pulse Rate 99 84 Respiratory Rate 33 H 24 H Respiratory Effort Respiratory Pattern Tachypnea Blood Pressure 127/75 H Blood Pressure Mean 92 Pulse Ox 98 97 96 Oxygen Delivery Method Bi-pap Bi-pap Oxygen Flow Rate (L/min) Fraction of Inspired Oxygen (FIO2) 60 60 60 12/11/24 02:27 12/11/24 02:59 Temperature 98.2 F Temperature Source Pulse Rate 86 80 Respiratory Rate 25 H 21 H Respiratory Effort Respiratory Pattern Blood Pressure 127/75 H 125/70 H Blood Pressure Mean 92 88 Pulse Ox 87 97 Oxygen Delivery Method Bi-pap Oxygen Flow Rate (L/min) Fraction of Inspired Oxygen (FIO2) 60 MDM MDM MDM Narrative Medical decision making narrative: Patient is a 69-year-old female who presented to the emergency department with achief complaint of cough, shortness of breath, chest pain. On the differential diagnose includes but not limited to ACS, pneumonia, pneumothorax, COPD exacerbation, upper respiratory infection secondary to viral etiology. Once workup is obtained reviewed she will be reevaluated. Patient's CBC showed a mild leukocytosis of 11,000, hemoglobin of 13.7, plateletcount at 377. Patient sodium is 137, potassium normal 3.9, creatinine was normal at 1.08. Patient's troponin was 1980, delta troponin of 1735, proBNP elevated to 7545. Patient chest x-ray reviewed by myself and by radiology whichshowed cardiomegaly and CHF changes follow-up is advised. Patient's EKG showed sinus rhythm with a rate of 92 bpm which also showed nonspecific ST changes noted in the lateral leads this wascompared to previous EKG from 03/07/2024 whichactually looks improved when compared to this EKG. I added on a CTA of her chest with regards to her elevated troponin and proBNP. Patient did have increased shortness of breath and tachypnea here in the emergency department and became further hypoxic on her nasal cannula therefore we placed her on BiPAP. Patient significantly improved on BiPAP. Patient CTA of the chest reviewed which showed no evidenceof pulmonary embolism there is a moderate bilateral pleural effusions noted. Moderate interstitial pulmonary edema. Mild alveolar pulmonary edema. Mildly prominent mediastinal lymph nodes are noted with the largest measuring 1.4 cm. Small sliding hiatal hernia. Dilated suprahepatic IVC suggestive of dysfunction of the right cardiac cavities. Benign chronic hypertrophy of the adrenal glands bilaterally. Bedside echocardiogram performed no large pericardial effusion noted. Called and discussed case with on-call prototype fabricator Dr. Holt who states that he would recommend giving Lovenox 1 mg/kg which was ordered for NSTEMI. Patientwas given 40 mg IV Lasix as well. Discussed case with admitting physician Dr. Bojorquez who accept patient for admission. Patient was notified is agreeable this plan as well as family at bedside all question concerns answered. Lab Data Labs: Laboratory Results - last 24 hr 12/10/24 12/11/24 23:45 01:49 WBC 11.3 H RBC 4.45 Hgb 13.7 Hct 40.4 MCV 90.8 MCH 30.8 MCHC 33.9 RDW Std Deviation 43.1 RDW Coeff of Luis 13.2 Plt Count 377 MPV 10.1 Immature Gran % (Auto) 1.700 H Neut % (Auto) 66.3 Lymph % (Auto) 16.5 L [place] % (Auto) 11.4 H Eos % (Auto) 3.1 Baso % (Auto) 1.0 Absolute Neuts (auto) 7.5 Absolute Lymphs (auto) 1.87 Nucleated RBC % 0 Sodium 137 Potassium 3.9 Chloride 106 Carbon Dioxide 18.3 L Anion Gap 12 BUN 13 Creatinine 1.08 Estim Creat Clear Calc 39.30 L Est GFR (MDRD) Non-Af 56 L BUN/Creatinine Ratio 11.8 Glucose 126 H Calcium 8.9 Troponin T High Sens 1980 H* Troponin T Hi Sens 2 Hr 1735 H* NT pro BNP II 7545 H Radiography Diagnostic Testing: Clinical Impression(s) from Imaging Studies Chest X-Ray 12/10/24 23:52 IMPRESSION: Cardiomegaly and CHF changes. Follow-up is advised Reading Location: [place] [address] Chest CTA 12/11/24 00:48 IMPRESSION: No CT evidence of pulmonary embolus or aortic dissection. Moderate bilateral pleural effusions. Passive atelectatic airspace disease/consolidations of the lower lobes. Moderate interstitial pulmonary edema. Mild alveolar pulmonary edema. Mildly prominent mediastinal lymph nodes are noted with the largest measuring 1.4 cm. Small sliding hiatal hernia. Dilated supra hepatic IVC suggestive of dysfunction of the right cardiac cavities. Bilateral benign chronic hypertrophy of the adrenal glands. Reading Location: [place] [address] Discharge Plan Triage Chief Complaint: Shortness of Breath ED Provider: Isaac Araujo Dx/Rx/DC Orders Clinical Impression: Acute hypoxic respiratory failure, Pleural effusion due to CHF (congestive heart failure), Myocardial infarction type 2 Prescriptions: No Action cilostazol 50 mg tablet 50 mg PO BID amlodipine 10 mg tablet 10 mg PO DAILY levothyroxine 112 mcg tablet 112 mcg PO DAILY Primary Care Provider: Marianela Edwards Referrals: Care Physician,No Primary [Non-Staff] - Print Language: [place] Disposition Disposition: Acute Care Hospital [facility] What to do if you have Problems For any increased pain, shortness of breath, bleeding, nausea or vomiting, chestpain, or any unexpected problems, contact your Primary Care Provider. Call [facility] ([phone]) or report tothe closest Emergency Room. Call 911 if necessary. 12/11/24 0306 Cosigner Signature (if applicable): CC: Dr. Marianela Edwards DO ~ Signed [facility]06-10-2025 Discharge summary [facility] Medical Records Department [address] [place] [id number] Emergency Department Summary 12/10/24 MR#: [id number] Acct: [id number] Name: MAUREEN ANSARI ALYSHA Rep #:[id number] : 1955 69 From: Isaac Araujo DO PCP: Dr. Marianela Edwards DO Status:AD M IN Location: ICU ICU09-[address] Isaac Araujo DO on 12/11/24 at 0309 At this point in time there is no identifiable source infection therefore do notfeel that antibiotics are indicated. Critical care time 47 minutes 12/11/24 0309 Cosigner Signature (if applicable): cc: Dr. Marianela Sheets, DO ~* Signed HPI History of Present Illness Chief Complaint: Shortness of Breath Narrative Narrative: Patient is a 69-year-old female with past medical history of peripheral vasculardisease, hypertension, chronic kidney disease, carotid artery disease who presented to the emergency department chief complaint of cough, chest pain and shortness of breath. According to the patient for the last few days she has hadworsening cough and shortness of breath states that her symptoms started about aweek ago. Patient denies any recent sick contacts. Patient states that she does smoke and does not have inhalers at home. Patient denies any history of recent travel, surgeries, DVT or PE [facility] Medical History (Updated 12/11/24 @ 03:[address] Isaac Araujo DO) Carpal tunnel syndrome on right Closed displaced bicondylar fracture of left tibia with routine healing CKD (chronic kidney disease) Cannabis use disorder HLD (hyperlipidemia) Tobacco use Carotid arterial disease Hypertension Home Medications ?Medication ?Instructions ?Recorded ?Last Taken ?Type amlodipine 10 mg tablet 10 mg PO DAILY htn 03/07/24 12/10/24 History cilostazol 50 mg tablet 50 mg PO BID 10/18/24 History levothyroxine 112 mcg tablet 112 mcg PO DAILY 12/10/24 12/10/24 History Allergy/AdvReac Type Severity Reaction Status Date / Time No Known Allergies Allergy Verified 12/10/24 23:26 Family History Mother , 89 Hypertension Pulmonary fibrosis Heart disease Glaucoma Father , 80 Hypertension Heart disease Diabetes Surgical History History of CEA (carotid endarterectomy) History of hip surgery Social History household members: family current occupational status: retired pets and animals: No Smoking Status: Current every day smoker tobacco type: cigarettes alcohol intake: never substance use type: marijuana caffeine: Yes Type: coffee Number of servings: 1 do you feel safe at home: Yes ROS ROS ED ROS Narrative Constitutional: Denies fevers, chills, headaches Eyes: Denies change in vision vision blurry vision Cardiovascular: Complains of chest discomfort states that mainly when she coughsdenies palpitations Respiratory: Complains of cough denies sputum production Abdomen: Denies abdominal pain nausea vomiting diarrhea : Denies urinary symptoms Neurological: Denies numbness, wheeze, tingling Musculoskeletal: Denies back pain Skin: Denies rashes or lesions EXAM Physical Exam Narrative Exam Narrative: General: Patient lying in bed rest comfortably do not appear to be in acute distress Head: Atraumatic, normocephalic Eyes: PERRL bilaterally, EOMI bilaterally, no conjunctival injection noted Neck: Soft, supple, trachea midline Cardiovascular: Regular in rhythm no murmurs gallops rubs noted Respiratory: Clear to auscultation bilaterally no rales rhonchi or wheezes noted Abdomen: Soft, nondistended, no tenderness to palpation Extremities: +4/5 strength noted in the bilateral upper and lower extremities, radial pulses +2/4 in the bilateral extremities Neurological: Patient following commands knew that she was at [facility] the year is 2024 Skin: Warm, dry, intact no rashes or lesions noted Const Vital Signs: 12/10/24 23:24 12/10/24 23:26 12/10/24 23:34 Temperature 98.2 F 98.2 F Temperature Source Oral Oral Pulse Rate 97 88 Respiratory Rate 16 16 Respiratory Effort Short of Breath Respiratory Pattern Blood Pressure 117/65 117/65 Blood Pressure Mean 82 82 Pulse Ox 92 95 Oxygen Delivery Method Room Air Room Air Room Air Oxygen Flow Rate (L/min) Fraction of Inspired Oxygen (FIO2) 12/10/24 23:55 12/11/24 00:26 12/11/24 00:30 Temperature 98.2 F Temperature Source Oral Pulse Rate 91 Respiratory Rate 14 Respiratory Effort Respiratory Pattern Blood Pressure 122/70 H Blood Pressure Mean 87 Pulse Ox 92 92 Oxygen Delivery Method Room Air Room Air Nasal Cannula Oxygen Flow Rate (L/min) 2 Fraction of Inspired Oxygen (FIO2) 12/11/24 01:00 12/11/24 01:00 12/11/24 01:05 Temperature 98.2 F Temperature Source Oral Pulse Rate 100 Respiratory Rate 26 H Respiratory Effort Respiratory Pattern Blood Pressure 126/62 H Blood Pressure Mean 83 Pulse Ox 84 90 86 Oxygen Delivery Method Room Air Nasal Cannula Nasal Cannula Oxygen Flow Rate (L/min) 3 2 Fraction of Inspired Oxygen (FIO2) 12/11/24 01:32 12/11/24 01:32 12/11/24 01:32 Temperature Temperature Source Pulse Rate Respiratory Rate 26 H Respiratory Effort Respiratory Pattern Blood Pressure Blood Pressure Mean Pulse Ox 95 85 96 Oxygen Delivery Method Bi-pap Nasal Cannula Bi-pap Oxygen Flow Rate (L/min) 6 Fraction of Inspired Oxygen (FIO2) 60 12/11/24 01:32 12/11/24 01:32 12/11/24 02:19 Temperature 98.2 F Temperature Source Temporal Pulse Rate 99 84 Respiratory Rate 33 H 24 H Respiratory Effort Respiratory Pattern Tachypnea Blood Pressure 127/75 H Blood Pressure Mean 92 Pulse Ox 98 97 96 Oxygen Delivery Method Bi-pap Bi-pap Oxygen Flow Rate (L/min) Fraction of Inspired Oxygen (FIO2) 60 60 60 12/11/24 02:27 12/11/24 02:59 Temperature 98.2 F Temperature Source Pulse Rate 86 80 Respiratory Rate 25 H 21 H Respiratory Effort Respiratory Pattern Blood Pressure 127/75 H 125/70 H Blood Pressure Mean 92 88 Pulse Ox 87 97 Oxygen Delivery Method Bi-pap Oxygen Flow Rate (L/min) Fraction of Inspired Oxygen (FIO2) 60 MDM MDM MDM Narrative Medical decision making narrative: Patient is a 69-year-old female who presented to the emergency department with achief complaint of cough, shortness of breath, chest pain. On the differential diagnose includes but not limited to ACS, pneumonia, pneumothorax, COPD exacerbation, upper respiratory infection secondary to viral etiology. Once workup is obtained reviewed she will be reevaluated. Patient's CBC showed a mild leukocytosis of 11,000, hemoglobin of 13.7, plateletcount at 377. Patient sodium is 137, potassium normal 3.9, creatinine was normal at 1.08. Patient's troponin was 1980, delta troponin of 1735, proBNP elevated to 7545. Patient chest x-ray reviewed by myself and by radiology whichshowed cardiomegaly and CHF changes follow-up is advised. Patient's EKG showed sinus rhythm with a rate of 92 bpm which also showed nonspecific ST changes noted in the lateral leads this wascompared to previous EKG from 03/07/2024 whichactually looks improved when compared to this EKG. I added on a CTA of her chest with regards to her elevated troponin and proBNP. Patient did have increased shortness of breath and tachypnea here in the emergency department and became further hypoxic on her nasal cannula therefore we placed her on BiPAP. Patient significantly improved on BiPAP. Patient CTA of the chest reviewed which showed no evidenceof pulmonary embolism there is a moderate bilateral pleural effusions noted. Moderate interstitial pulmonary edema. Mild alveolar pulmonary edema. Mildly prominent mediastinal lymph nodes are noted with the largest measuring 1.4 cm. Small sliding hiatal hernia. Dilated suprahepatic IVC suggestive of dysfunction of the right cardiac cavities. Benign chronic hypertrophy of the adrenal glands bilaterally. Bedside echocardiogram performed no large pericardial effusion noted. Called and discussed case with on-call prototype fabricator Dr. Holt who states that he would recommend giving Lovenox 1 mg/kg which was ordered for NSTEMI. Patientwas given 40 mg IV Lasix as well. Discussed case with admitting physician Dr. Bojorquez who accept patient for admission. Patient was notified is agreeable this plan as well as family at bedside all question concerns answered. Lab Data Labs: Laboratory Results - last 24 hr 12/10/24 12/11/24 23:45 01:49 WBC 11.3 H RBC 4.45 Hgb 13.7 Hct 40.4 MCV 90.8 MCH 30.8 MCHC 33.9 RDW Std Deviation 43.1 RDW Coeff of Luis 13.2 Plt Count 377 MPV 10.1 Immature Gran % (Auto) 1.700 H Neut % (Auto) 66.3 Lymph % (Auto) 16.5 L [place] % (Auto) 11.4 H Eos % (Auto) 3.1 Baso % (Auto) 1.0 Absolute Neuts (auto) 7.5 Absolute Lymphs (auto) 1.87 Nucleated RBC % 0 Sodium 137 Potassium 3.9 Chloride 106 Carbon Dioxide 18.3 L Anion Gap 12 BUN 13 Creatinine 1.08 Estim Creat Clear Calc 39.30 L Est GFR (MDRD) Non-Af 56 L BUN/Creatinine Ratio 11.8 Glucose 126 H Calcium 8.9 Troponin T High Sens 1980 H* Troponin T Hi Sens 2 Hr 1735 H* NT pro BNP II 7545 H Radiography Diagnostic Testing: Clinical Impression(s) from Imaging Studies Chest X-Ray 12/10/24 23:52 IMPRESSION: Cardiomegaly and CHF changes. Follow-up is advised Reading [facility] Chest CTA 12/11/24 00:48 IMPRESSION: No CT evidence of pulmonary embolus or aortic dissection. Moderate bilateral pleural effusions. Passive atelectatic airspace disease/consolidations of the lower lobes. Moderate interstitial pulmonary edema. Mild alveolar pulmonary edema. Mildly prominent mediastinal lymph nodes are noted with the largest measuring 1.4 cm. Small sliding hiatal hernia. Dilated supra hepatic IVC suggestive of dysfunction of the right cardiac cavities. Bilateral benign chronic hypertrophy of the adrenal glands. Reading Location: [place] [address] Discharge Plan Triage Chief Complaint: Shortness of Breath ED Provider: Isaac Araujo Dx/Rx/DC Orders Clinical Impression: Acute hypoxic respiratory failure, Pleural effusion due to CHF (congestive heart failure), Myocardial infarction type 2 Prescriptions: No Action cilostazol 50 mg tablet 50 mg PO BID amlodipine 10 mg tablet 10 mg PO DAILY levothyroxine 112 mcg tablet 112 mcg PO DAILY Primary Care Provider: Marianela Edwards Referrals: Care Physician,No Primary [Non-Staff] - Print Language: [place] Disposition Disposition: Acute Care Hospital [facility] What to do if you have Problems For any increased pain, shortness of breath, bleeding, nausea or vomiting, chestpain, or any unexpected problems, contact your Primary Care Provider. Call [facility] ([phone]) or report tothe closest Emergency Room. Call 911 if necessary. 12/11/24 0306 Cosigner Signature (if applicable): CC: Dr. Marianela Edwards, DO ~ Signed [facility]06-10-2025 History and physical note [facility] Medical Records Department [address] [place] [address] History & Physical Exam 12/11/24 0233 MR#: [id number] Acct: [id number] Name: MAUREEN ANSARI ALYSHA Rep #:[id number] : 1955 69 From: Francis Bojorquez MD PCP: Dr. Marianela Edwards DO Status:RE G ER Location: ED HPI - General General Date of Admission: 12/11/24 Date of Service: 12/11/24 Chief Complaint: Shortness of breath HPI Narrative MAUREEN BARRON, is a 69 F who presents to the emergency room with chief complaint of shortness of breath. Patient has become progressively short of breath over the past several days. Patient has significant past medical historyof peripheral vascular disease and severe carotid disease with 100% occlusion ofthe left and surgical intervention done to her right carotid artery. She is a smoker. She had been living in [place] and moved here to be near her sister and previously had a leg fracture and was struggling to regain ambulation with rehab for prolonged period of time and reportedly had lower extremity peripheralvascular disease as well. In the emergency room patient was tachypneic showing signs of impending respiratory failure. Laboratory studies reveal white blood cell count 11.3, hemoglobin 13.7, hematocrit 40.4, platelets 377, sodium 137, potassium 3.9, chloride 106, btevhe17.3, BUN 13, creatinine 1.08, glucose 126, troponin 1980, [place] 7545. CT angiogram of the chest was negative for pulmonaryembolism but did show moderate bilateral pleural effusions. Chest x-ray revealed cardiomegaly. In the emergency room her respiratory rate was as high as 40 and BiPAP therapy was supplemental oxygen was initiated and patient responded along with furosemide IV in the emergency room. A bedside ultrasound was performed in the emergency room which was negative for pericardial effusion. Despite her known peripheral vascular disease and carotid artery disease patient seems surprised to have cardiac issues at this time. Due to impending respiratory failure need for BiPAP therapy along with markedly elevated troponinand natruretic peptide patient will be admitted to the intensive care unit for further management of congestive heart failure. [facility] Medical History (Updated 12/11/24 @ 02:[address] Francis Bojorquez MD) Carpal tunnel syndrome on right Closed displaced bicondylar fracture of left tibia with routine healing CKD (chronic kidney disease) Cannabis use disorder HLD (hyperlipidemia) Tobacco use Carotid arterial disease Hypertension Home Medications ?Medication ?Instructions ?Recorded ?Last Taken ?Type amlodipine 10 mg tablet 10 mg PO DAILY htn 03/07/24 12/10/24 History cilostazol 50 mg tablet 50 mg PO BID 10/18/24 History levothyroxine 112 mcg tablet 112 mcg PO DAILY 12/10/24 12/10/24 History Allergy/AdvReac Type Severity Reaction Status Date / Time No Known Allergies Allergy Verified 12/10/24 23:26 Family History Mother , 89 Hypertension Pulmonary fibrosis Heart disease Glaucoma Father , 80 Hypertension Heart disease Diabetes Surgical History History of CEA (carotid endarterectomy) History of hip surgery Social History household members: family current occupational status: retired pets and animals: No Smoking Status: Current every day smoker tobacco type: cigarettes alcohol intake: never substance use type: marijuana caffeine: Yes Type: coffee Number of servings: 1 do you feel safe at home: Yes ROS Constitutional Constitutional: Reports chills and weakness; Denies fever(s) Eyes Eyes: Denies blurry vision ENT HEENT: Denies abnormal hearing Cardiovascular Cardiovascular: Denies chest pain Respiratory/Chest Respiratory/Chest: Reports shortness of breath at rest Gastrointestinal Gastrointestinal: Denies abdominal pain Genitourinary Genitourinary: Denies dysuria Musculoskeletal Musculoskeletal: Denies back pain Integumentary Integumentary: Denies dry skin or wounds Neurologic Neurologic: Denies abnormal speech Psychiatric Psychiatric: Denies anxiety Vital Signs Vital Signs Vital Signs: 12/10/24 23:24 12/10/24 23:26 12/10/24 23:34 Temperature 98.2 F 98.2 F Temperature Source Oral Oral Pulse Rate 97 88 Respiratory Rate 16 16 Respiratory Effort Short of Breath Respiratory Pattern Blood Pressure 117/65 117/65 Blood Pressure Mean 82 82 Pulse Ox 92 95 Oxygen Delivery Method Room Air Room Air Room Air Oxygen Flow Rate (L/min) Fraction of Inspired Oxygen (FIO2) 12/10/24 23:55 12/11/24 00:26 12/11/24 00:30 Temperature 98.2 F Temperature Source Oral Pulse Rate 91 Respiratory Rate 14 Respiratory Effort Respiratory Pattern Blood Pressure 122/70 H Blood Pressure Mean 87 Pulse Ox 92 92 Oxygen Delivery Method Room Air Room Air Nasal Cannula Oxygen Flow Rate (L/min) 2 Fraction of Inspired Oxygen (FIO2) 12/11/24 01:00 12/11/24 01:00 12/11/24 01:05 Temperature 98.2 F Temperature Source Oral Pulse Rate 100 Respiratory Rate 26 H Respiratory Effort Respiratory Pattern Blood Pressure 126/62 H Blood Pressure Mean 83 Pulse Ox 84 90 86 Oxygen Delivery Method Room Air Nasal Cannula Nasal Cannula Oxygen Flow Rate (L/min) 3 2 Fraction of Inspired Oxygen (FIO2) 12/11/24 01:32 12/11/24 01:32 12/11/24 01:32 Temperature Temperature Source Pulse Rate Respiratory Rate 26 H Respiratory Effort Respiratory Pattern Blood Pressure Blood Pressure Mean Pulse Ox 95 85 96 Oxygen Delivery Method Bi-pap Nasal Cannula Bi-pap Oxygen Flow Rate (L/min) 6 Fraction of Inspired Oxygen (FIO2) 60 12/11/24 01:32 12/11/24 01:32 12/11/24 02:19 Temperature 98.2 F Temperature Source Temporal Pulse Rate 99 84 Respiratory Rate 33 H 24 H Respiratory Effort Respiratory Pattern Tachypnea Blood Pressure 127/75 H Blood Pressure Mean 92 Pulse Ox 98 97 96 Oxygen Delivery Method Bi-pap Bi-pap Oxygen Flow Rate (L/min) Fraction of Inspired Oxygen (FIO2) 60 60 60 12/11/24 02:27 Temperature 98.2 F Temperature Source Pulse Rate 86 Respiratory Rate 25 H Respiratory Effort Respiratory Pattern Blood Pressure 127/75 H Blood Pressure Mean 92 Pulse Ox 87 Oxygen Delivery Method Oxygen Flow Rate (L/min) Fraction of Inspired Oxygen (FIO2) Weight Weight: 124 lb 12.506 oz Body Mass Index (BMI) 24.3 Physical Exam Const oriented x3 General Appearance: cooperative HEENT normocephalic and head/scalp atraumatic Eyes PERRL Neck no lymphadenopathy Lymph Lymphatic: no lymphadenopathy noted Resp Effort and Inspection: tachypneic and respiratory distress Auscultation: diminished lung sounds bilateral; Negative for rales, rhonchi or wheezes Cardio regular rate, regular rhythm, S1 normal heart sound and S2 normal heart sound GI normal to inspection, nondistended, normoactive bowel sounds Extremity no calf tenderness Skin General Skin Exam: no breakdown Neuro no focal motor deficits and no sensory deficits noted Speech: speech normal Psych thought process normal, cooperative and affect normal Results Lab / Micro Data 12/10/24 23:45 12/10/24 23:45 Labs: Laboratory Results - last 24 hr 12/10/24 23:45: WBC 11.3 H, RBC 4.45, Hgb 13.7, Hct 40.4, MCV 90.8, MCH 30.8, MCHC 33.9, RDW Std Deviation 43.1, RDW Coeff of Luis 13.2, Plt Count 377, MPV 10.1, Immature Gran % (Auto) 1.700 H, Neut %(Auto) 66.3, Lymph % (Auto) 16.5 L,[place] % (Auto) 11.4 H, Eos % (Auto) 3.1, Baso % (Auto) 1.0, Absolute Neuts (auto)7.5, Absolute Lymphs (auto) 1.87, Nucleated RBC % 0, Sodium 137, Potassium 3.9, Chloride 106, Carbon Dioxide 18.3 L, Anion Gap 12, BUN 13, Creatinine 1.08, Estim Creat Clear Calc 39.30L, Est GFR (MDRD) Non-Af 56 L, BUN/Creatinine Ratio 11.8, Glucose 126 H, Calcium 8.9, Troponin T High Sens 1980 H*, NT pro BNP II 7545 H Imaging Radiology Impression Chest X-Ray 12/10/24 23:52 IMPRESSION: Cardiomegaly and CHF changes. Follow-up is advised Reading Location: [place] [address] Chest CTA 12/11/24 00:48 IMPRESSION: No CT evidence of pulmonary embolus or aortic dissection. Moderate bilateral pleural effusions. Passive atelectatic airspace disease/consolidations of the lower lobes. Moderate interstitial pulmonary edema. Mild alveolar pulmonary edema. Mildly prominent mediastinal lymph nodes are noted with the largest measuring 1.4 cm. Small sliding hiatal hernia. Dilated supra hepatic IVC suggestive of dysfunction of the right cardiac cavities. Bilateral benign chronic hypertrophy of the adrenal glands. Reading Location: [place] [address] Assessment & Plan Assessment/Plan (1) Congestive heart failure: (2) Elevated troponin: (3) Respiratory distress, acute: (4) Peripheral vascular disease: (5) Smoking 1/2 pack a day or less: PLAN: Plan 1 acute respiratory distress?admit patient to intensive care unit, continue BiPAP therapy initiatedin the emergency room will add furosemide 40 mg twice daily, repeat CBC BMp in a.m. 2. Congestive heart failure?consult cardiology, obtain echocardiogram, due to elevated troponins will continue to cycle cardiac markers. 3. Known peripheral vascular disease with hyperlipidemia?continue statin medication we will add Lovenox 1 mg/kg IV every 12 hours as this would be indicated in the setting of elevated troponin 4. DVT prophylaxis?low molecular weight heparin as above 5. Smoking?cessation encouraged Charges/Coding Visit Charges Inpatient E&M: 68707 Init Hosp L3 12/11/24 0259 Cosigner Signature (if applicable): CC: Dr. Marianela Edwards, DO; Dr. Francis Bojorquez MD~ Signed [facility]06-10-2025 [facility] Medical Records Department [address] [place] [address] History Physical Exam 12/11/24 0233 MR#: [id number] Acct: [id number] Name: MAUREEN ANSARI ALYSHA Rep #: [id number] : 1955 69 From: Francis Bojorquez MD PCP: Dr. Marianela Edwards DO Status:REG ER Location: ED HPI - General General Date of Admission: 12/11/24 Date of Service: 12/11/24 Chief Complaint: Shortness of breath HPI Narrative MAUREEN BARRON, is a 69 F who presents to the emergency room with chief complaint of shortness of breath. Patient has become progressively short of breath over the past several days. Patient has significant past medical history of peripheral vascular disease and severe carotid disease with 100% occlusion of the left and surgical intervention done to her right carotid artery. She is a smoker. She had been living in [place] and moved here to be near her sister and previously had a leg fracture and was struggling to regain ambulation with rehab for prolonged period of time and reportedly had lower extremity peripheral vascular disease as well. In the emergency room patient was tachypneic showing signs of impending respiratory failure. Laboratory studies reveal white blood cell count 11.3, hemoglobin 13.7, hematocrit 40.4, platelets 377, sodium 137, potassium 3.9, chloride 106, bicarb 18.3, BUN 13, creatinine 1.08, glucose 126, troponin 1980, [place] [address]45. CT angiogram of the chest was negative for pulmonary embolism but did show moderate bilateral pleural effusions. Chest x-ray revealed cardiomegaly. In the emergency room her respiratory rate was as high as 40 and BiPAP therapy was supplemental oxygen was initiated and patient responded along with furosemide IV in the emergency room. A bedside ultrasound was performed in the emergency room which was negative for pericardial effusion. Despite her known peripheral vascular disease and carotid artery disease patient seems surprised to have cardiac issues at this time. Due to impending respiratory failure need for BiPAP therapy along with markedly elevated troponin and natruretic peptide patient will be admitted to the intensive care unit for further management of congestive heart failure. [facility] Medical History (Updated 12/11/24 @ 02:[address] Francis Bojorquez MD) Carpal tunnel syndrome on right Closed displaced bicondylar fracture of left tibia with routine healing CKD (chronic kidney disease) Cannabis use disorder HLD (hyperlipidemia) Tobacco use Carotid arterial disease Hypertension Home Medications ???Medication ???Instructions ???Recorded ???Last Taken ???Type amlodipine 10 mg tablet 10 mg PO DAILY htn 03/07/24 History cilostazol 50 mg tablet 50 mg PO BID 10/18/24 12/10/24 His tory levothyroxine 112 mcg tablet 112 mcg PO DAILY 12/10/24 12/10/24 History Allergy/AdvReac Type Severity Reaction Status Date / Time No Known Allergies Allergy Verified 12/10/24 23:26 Family History Mother , 89 Hypertension Pulmonary fibrosis Heart disease Glaucoma Father , 80 Hypertension Heart disease Diabetes Surgical History History of CEA (carotid endarterectomy) History of hip surgery Social History household members: family current occupational status: retired pets and animals: No Smoking Status: Current every day smoker tobacco type: cigarettes alcohol intake: never substance use type: marijuana caffeine: Yes Type: coffee Number of servings: 1 do you feel safe at home: Yes ROS Constitutional Constitutional: Reports chills and weakness; Denies fever(s) Eyes Eyes: Denies blurry vision ENT HEENT: Denies abnormal hearing Cardiovascular Cardiovascular: Denies chest pain Respiratory/Chest Respiratory/Chest: Reports shortness of breath at rest Gastrointestinal Gastrointestinal: Denies abdominal pain Genitourinary Genitourinary: Denies dysuria Musculoskeletal Musculoskeletal: Denies back pain Integumentary Integumentary: Denies dry skin or wounds Neurologic Neurologic: Denies abnormal speech Psychiatric Psychiatric: Denies anxiety Vital Signs Vital Signs Vital Signs: 12/10/24 23:24 12/10/24 23:26 12/10/24 23:34 Temperature 98.2 F 98.2 F Temperature Source Oral Oral Pulse Rate 97 88 Respiratory Rate 16 16 Respiratory Effort Short of Breath Respiratory Pattern Blood Pressure 117/65 117/65 Blood Pressure Mean 82 82 Pulse Ox 92 95 Oxygen Delivery Method Room Air Room Air Room Air Oxygen Flow Rate (L/min) Fraction of Inspired Oxygen (FIO2) 12/10/24 23:55 12/11/24 00:26 12/11/24 00:30 Temperature 98.2 F Temperat (more content not included)...[facility]06-10-2025 Radiology Diagnostic study note [facility] Imaging Services [address] [place], [place] [id number] CTA Chest W/WO Contrast MR#: [id number] Acct: [id number] Name: MAUREEN ANSARI Rep #: [id number] : 1955 F 69 From: Jolly Mueller MD PCP: Care Physician,No Primary Status: REG ER Study:CTA Chest W/WO Contrast Date of Exam: 12/11/24 Exam# [id number] Ordering Dr: Nik Araujo DO PROCEDURE: CTA CHEST W/WO CONTRAST 12/11/2024 REASON FOR EXAM: SOB, ELEVATED TROP TECHNIQUE: CTA imaging of the chest with intravenous contrast. Multiplanar and multisequence images were obtained. CONTRAST: Isovue-300 70 VOLUME: 100 mL Gauge IV One or more dose reduction techniques were used (e.g., Automated exposure control, adjustment of the mA and/or kV according to patient size, use of iterative reconstruction technique). RADIATION DOSE SUMMARY: CTDlvol: 4.62 mGy DLP: 169 mGycm COMPARISON: Radiograph on 12/11/2024. FINDINGS: Moderate bilateral pleural effusions. Passive atelectatic airspace disease/consolidations of the lower lobes. Moderate interstitial pulmonary edema. Mild alveolar pulmonary edema. Mildly prominent mediastinal lymph nodes are noted with the largest measuring 1.4 cm. Small sliding hiatal hernia. Dilated supra hepatic IVC suggestive of dysfunction of the right cardiac cavities. Bilateral hypertrophy of the adrenal glands. Normal enhancement of the main pulmonary artery and right and left pulmonary arteries. Normal enhancement of the bilateral peripheral pulmonary arteries. There is no demonstrated pulmonary embolism. Normal thoracic aorta and visualized great vessels. There is no demonstrated aortic dissection. Normal pericardium. Normal visualized trachea and bronchi. Normal chest wall structures. Mild diffuse spondylosis. CT/CTA Chest W/WO Contrast IMPRESSION: No CT evidence of pulmonary embolus or aortic dissection. Moderate bilateral pleural effusions. Passive atelectatic airspace disease/consolidations of the lower lobes. Moderate interstitial pulmonary edema. Mild alveolar pulmonary edema. Mildly prominent mediastinal lymph nodes are noted with the largest measuring 1.4 cm. Small sliding hiatal hernia. Dilated supra hepatic IVC suggestive of dysfunction of the right cardiac cavities. Bilateral benign chronic hypertrophy of the adrenal glands. Reading Location: [facility] CC: Dr. Isaac Araujo DO; No Primary Care Physician ~ Dental Specialist: Signed [facility]06-10-2025 Radiology Diagnostic study note [facility] Imaging Services [address] [place] [id number] Chest PA and Lateral MR#: [id number] Acct: [id number] Name: MAUREEN ANSARI ALYSHA Rep #: [id number] : 1955 F 69 From: Jolly Mueller MD PCP: Care Physician,No Primary Status: PRE ER Study:Chest PA and Lateral Date of Exam: 12/10/24 Exam# [id number] Ordering Dr: Nik Araujo DO PROCEDURE: CHEST PA AND LATERAL 12/11/2024 REASON FOR EXAM: SOB TECHNIQUE: Frontal and lateral views of the chest. COMPARISON: None FINDINGS: Mild cardiomegaly. Aortic calcifications are noted. Bilateral perihilar and lower lung zones infiltrates versus volume overload changes. Minimal bilateral pleural effusion. Tiny left upper lung zone nodule likely a granuloma measuring 5 mm. No acute rib abnormalities. RAD/Chest PA and Lateral IMPRESSION: Cardiomegaly and CHF changes. Follow-up is advised Reading Location[facility] CC: Dr. Isaac Araujo DO; No Primary Care Physician ~ Dental Specialist: Signed [facility]06-09-2025 Discharge summary Author Isaac Araujo [facility] Note Date/Time December 11, 2024 3:09 am [facility] Medical Records Department [address] [place] [address] Emergency Department Summary 12/10/24 MR#: [id number] Acct: [id number] Name: MAUREEN ANSARI Rep #:[id number] : 1955 69 From: Isaac Araujo DO PCP: Dr. Marianela Edwards DO Status:AD M IN Location: ICU ICU09-[address] Isaac Araujo DO on 12/11/24 at 0309 At this point in time there is no identifiable source infection therefore do notfeel that antibiotics are indicated. Critical care time 47 minutes 12/11/24 0309<Electronically signed by Isaac Araujo DO> Cosigner Signature (if applicable): cc: Dr. Marianela Edwards DO ~* Signed HPI History of Present Illness Chief Complaint: Shortness of Breath Narrative Narrative: Patient is a 69-year-old female with past medical history of peripheral vasculardisease, hypertension, chronic kidney disease, carotid artery disease who presented to the emergency department chief complaint of cough, chest pain and shortness of breath. According to the patient for the last few days she has hadworsening cough and shortness of breath states that her symptoms started about aweek ago. Patient denies any recent sick contacts. Patient states that she does smoke and does not have inhalers at home. Patient denies any history of recent travel, surgeries, DVT or PE [facility] Medical History (Updated 12/11/24 @ 03:[address] Isaac Araujo DO) Carpal tunnel syndrome on right Closed displaced bicondylar fracture of left tibia with routine healing CKD (chronic kidney disease) Cannabis use disorder HLD (hyperlipidemia) Tobacco use Carotid arterial disease Hypertension Home Medications ?Medication ?Instructions ?Recorded ?Last Taken ?Type amlodipine 10 mg tablet 10 mg PO DAILY htn 03/07/24 12/10/24 History cilostazol 50 mg tablet 50 mg PO BID 10/18/24 History levothyroxine 112 mcg tablet 112 mcg PO DAILY 12/10/24 12/10/24 History Allergy/AdvReac Type Severity Reaction Status Date / Time No Known Allergies Allergy Verified 12/10/24 23:26 Family History Mother , 89 Hypertension Pulmonary fibrosis Heart disease Glaucoma Father , 80 Hypertension Heart disease Diabetes Surgical History History of CEA (carotid endarterectomy) History of hip surgery Social History household members: family current occupational status: retired pets and animals: No Smoking Status: Current every day smoker tobacco type: cigarettes alcohol intake: never substance use type: marijuana caffeine: Yes Type: coffee Number of servings: 1 do you feel safe at home: Yes ROS ROS ED ROS Narrative Constitutional: Denies fevers, chills, headaches Eyes: Denies change in vision vision blurry vision Cardiovascular: Complains of chest discomfort states that mainly when she coughsdenies palpitations Respiratory: Complains of cough denies sputum production Abdomen: Denies abdominal pain nausea vomiting diarrhea : Denies urinary symptoms Neurological: Denies numbness, wheeze, tingling Musculoskeletal: Denies back pain Skin: Denies rashes or lesions EXAM Physical Exam Narrative Exam Narrative: General: Patient lying in bed rest comfortably do not appear to be in acute distress Head: Atraumatic, normocephalic Eyes: PERRL bilaterally, EOMI bilaterally, no conjunctival injection noted Neck: Soft, supple, trachea midline Cardiovascular: Regular in rhythm no murmurs gallops rubs noted Respiratory: Clear to auscultation bilaterally no rales rhonchi or wheezes noted Abdomen: Soft, nondistended, no tenderness to palpation Extremities: +4/5 strength noted in the bilateral upper and lower extremities, radial pulses +2/4 in the bilateral extremities Neurological: Patient following commands knew that she was at [facility] the year is 2024 Skin: Warm, dry, intact no rashes or lesions noted Const Vital Signs: 12/10/24 23:24 12/10/24 23:26 12/10/24 23:34 Temperature 98.2 F 98.2 F Temperature Source Oral Oral Pulse Rate 97 88 Respiratory Rate 16 16 Respiratory Effort Short of Breath Respiratory Pattern Blood Pressure 117/65 117/65 Blood Pressure Mean 82 82 Pulse Ox 92 95 Oxygen Delivery Method Room Air Room Air Room Air Oxygen Flow Rate (L/min) Fraction of Inspired Oxygen (FIO2) 12/10/24 23:55 12/11/24 00:26 12/11/24 00:30 Temperature 98.2 F Temperature Source Oral Pulse Rate 91 Respiratory Rate 14 Respiratory Effort Respiratory Pattern Blood Pressure 122/70 H Blood Pressure Mean 87 Pulse Ox 92 92 Oxygen Delivery Method Room Air Room Air Nasal Cannula Oxygen Flow Rate (L/min) 2 Fraction of Inspired Oxygen (FIO2) 12/11/24 01:00 12/11/24 01:00 12/11/24 01:05 Temperature 98.2 F Temperature Source Oral Pulse Rate 100 Respiratory Rate 26 H Respiratory Effort Respiratory Pattern Blood Pressure 126/62 H Blood Pressure Mean 83 Pulse Ox 84 90 86 Oxygen Delivery Method Room Air Nasal Cannula Nasal Cannula Oxygen Flow Rate (L/min) 3 2 Fraction of Inspired Oxygen (FIO2) 12/11/24 01:32 12/11/24 01:32 12/11/24 01:32 Temperature Temperature Source Pulse Rate Respiratory Rate 26 H Respiratory Effort Respiratory Pattern Blood Pressure Blood Pressure Mean Pulse Ox 95 85 96 Oxygen Delivery Method Bi-pap Nasal Cannula Bi-pap Oxygen Flow Rate (L/min) 6 Fraction of Inspired Oxygen (FIO2) 60 12/11/24 01:32 12/11/24 01:32 12/11/24 02:19 Temperature 98.2 F Temperature Source Temporal Pulse Rate 99 84 Respiratory Rate 33 H 24 H Respiratory Effort Respiratory Pattern Tachypnea Blood Pressure 127/75 H Blood Pressure Mean 92 Pulse Ox 98 97 96 Oxygen Delivery Method Bi-pap Bi-pap Oxygen Flow Rate (L/min) Fraction of Inspired Oxygen (FIO2) 60 60 60 12/11/24 02:27 12/11/24 02:59 Temperature 98.2 F Temperature Source Pulse Rate 86 80 Respiratory Rate 25 H 21 H Respiratory Effort Respiratory Pattern Blood Pressure 127/75 H 125/70 H Blood Pressure Mean 92 88 Pulse Ox 87 97 Oxygen Delivery Method Bi-pap Oxygen Flow Rate (L/min) Fraction of Inspired Oxygen (FIO2) 60 MDM MDM MDM Narrative Medical decision making narrative: Patient is a 69-year-old female who presented to the emergency department with achief complaint of cough, shortness of breath, chest pain. On the differential diagnose includes but not limited to ACS, pneumonia, pneumothorax, COPD exacerbation, upper respiratory infection secondary to viral etiology. Once workup is obtained reviewed she will be reevaluated. Patient's CBC showed a mild leukocytosis of 11,000, hemoglobin of 13.7, plateletcount at 377. Patient sodium is 137, potassium normal 3.9, creatinine was normal at 1.08. Patient's troponin was 1980, delta troponin of 1735, proBNP elevated to 7545. Patient chest x-ray reviewed by myself and by radiology whichshowed cardiomegaly and CHF changes follow-up is advised. Patient's EKG showed sinus rhythm with a rate of 92 bpm which also showed nonspecific ST changes noted in the lateral leads this was compared to previous EKG from 03/07/2024 whichactually looks improved when compared to this EKG. I added on a CTA of her chest with regards to her elevated troponin and proBNP. Patient did have increased shortness of breath and tachypnea here in the emergency department and became further hypoxic on her nasal cannula therefore we placed her on BiPAP. Patient significantly improved on BiPAP. Patient CTA of the chest reviewed which showed no evidence of pulmonary embolism there is a moderate bilateral pleural effusions noted. Moderate interstitial pulmonary edema. Mild alveolar pulmonary edema. Mildly prominent mediastinal lymph nodes are noted with the largest measuring 1.4 cm. Small sliding hiatal hernia. Dilated suprahepatic IVC suggestive of dysfunction of the right cardiac cavities. Benign chronic hypertrophy of the adrenal glands bilaterally. Bedside echocardiogram performed no large pericardial effusion noted. Called and discussed case with on-call prototype fabricator Dr. Holt who states that he would recommend giving Lovenox 1 mg/kg which was ordered for NSTEMI. Patientwas given 40 mg IV Lasix as well. Discussed case with admitting physician Dr. Bojorquez who accept patient for admission. Patient was notified is agreeable this plan as well as family at bedside all question concerns answered. Lab Data Labs: Laboratory Results - last 24 hr 12/10/24 12/11/24 23:45 01:49 WBC 11.3 H RBC 4.45 Hgb 13.7 Hct 40.4 MCV 90.8 MCH 30.8 MCHC 33.9 RDW Std Deviation 43.1 RDW Coeff of Luis 13.2 Plt Count 377 MPV 10.1 Immature Gran % (Auto) 1.700 H Neut % (Auto) 66.3 Lymph % (Auto) 16.5 L [place] % (Auto) 11.4 H Eos % (Auto) 3.1 Baso % (Auto) 1.0 Absolute Neuts (auto) 7.5 Absolute Lymphs (auto) 1.87 Nucleated RBC % 0 Sodium 137 Potassium 3.9 Chloride 106 Carbon Dioxide 18.3 L Anion Gap 12 BUN 13 Creatinine 1.08 Estim Creat Clear Calc 39.30 L Est GFR (MDRD) Non-Af 56 L BUN/Creatinine Ratio 11.8 Glucose 126 H Calcium 8.9 Troponin T High Sens 1980 H* Troponin T Hi Sens 2 Hr 1735 H* NT pro BNP II 7545 H Radiography Diagnostic Testing: Clinical Impression(s) from Imaging Studies Chest X-Ray 12/10/24 23:52 IMPRESSION: Cardiomegaly and CHF changes. Follow-up is advised Reading Location: [place] [address] Chest CTA 12/11/24 00:48 IMPRESSION: No CT evidence of pulmonary embolus or aortic dissection. Moderate bilateral pleural effusions. Passive atelectatic airspace disease/consolidations of the lower lobes. Moderate interstitial pulmonary edema. Mild alveolar pulmonary edema. Mildly prominent mediastinal lymph nodes are noted with the largest measuring 1.4 cm. Small sliding hiatal hernia. Dilated supra hepatic IVC suggestive of dysfunction of the right cardiac cavities. Bilateral benign chronic hypertrophy of the adrenal glands. Reading Location: [place] [address] Discharge Plan Triage Chief Complaint: Shortness of Breath ED Provider: Isaac Araujo Dx/Rx/DC Orders Clinical Impression: Acute hypoxic respiratory failure, Pleural effusion due to CHF (congestive heart failure), Myocardial infarction type 2 Prescriptions: No Action cilostazol 50 mg tablet 50 mg PO BID amlodipine 10 mg tablet 10 mg PO DAILY levothyroxine 112 mcg tablet 112 mcg PO DAILY Primary Care Provider: Marianela Edwards Referrals: Care Physician,No Primary [Non-Staff] - Print Language: [place] Disposition Disposition: Acute Care Hospital [facility] What to do if you have Problems For any increased pain, shortness of breath, bleeding, nausea or vomiting, chestpain, or any unexpected problems, contact your Primary Care Provider. Call [facility] ([phone]) or report to the closest Emergency Room. Call 911 if necessary. 12/11/24 0306 <Electronically signed by Isaac Araujo DO> Cosigner Signature (if applicable): CC: Dr. Marianela Edwards DO ~ Signed [facility] Work Phone: 1(529) 354-635605-27-2025 Telephone encounter Note* Telephone Encounter - Kimberlee Lofton RN - 11/27/2024 1:14 PM EDT Patient phones requesting refills as follows: Requested Prescriptions Pending Prescriptions Disp Refills cilostazol (PLETAL) 50 mg tablet [Pharmacy Med Name: CILOSTAZOL 50 MG TABLET] 180 tablet 0 Sig: TAKE 1 TABLET BY MOUTH TWICE A DAY Please review and advise. Kimberlee Lofton RN [facility]05-27-2025 Miscellaneous Notes* Telephone Encounter - Kimberlee Lofton RN - 11/27/2024 1:14 PM EDT Patient phones requesting refills as follows: Requested Prescriptions Pending Prescriptions Disp Refills cilostazol (PLETAL) 50 mg tablet [Pharmacy Med Name: CILOSTAZOL 50 MG TABLET] 180 tablet 0 Sig: TAKE 1 TABLET BY MOUTH TWICE A DAY Please review and advise. Kimberlee Lofton RN documented in this encounterCrystal [facility]05-16-2025 Note* Addendum Note - Marianela Edwards DO - 11/16/2024 9:35 AM EDTAddended by: MARIANELA EDWARDS on: 11/16/2024 09:35 AM Modules accepted: Orders [facility]05-16-2025 Telephone encounter Note* Telephone Encounter - Marianela Edwards DO - 11/16/2024 9:35 AM EDT Order attached Marianela Edwards DO [facility]05-16-2025 Miscellaneous Notes* Addendum Note - Marianela Edwards DO - 11/16/2024 9:35 AM EDTAddended by: MARIANELA EDWARSD on: 11/16/2024 09:35 AM Modules accepted: Orders * Telephone Encounter - Marianela Edwards DO - 11/16/2024 9:35 AM EDT Order attached Marianela Edwards DO * Telephone Encounter - Desire Moss MA - 11/16/2024 7:43 AM EDT ----- Message from Shari Erickson MA sent at 10/05/2024 7:26 AM EDT ----- Remind pt. Time to recheck TSH. Shari López MA documented in this encounterCrystal [facility]05-16-2025 Telephone encounter Note * Telephone Encounter - Desire Moss MA - 11/16/2024 7:43 AM EDT ----- Message from Shari Erickson MA sent at 10/05/2024 7:26 AM EDT ----- Remind pt. Time to recheck TSH. Shari López MA [facility]05-08-2025 Telephone encounter Note* Telephone Encounter - Sharee White LPN - 11/08/2024 2:38 PM EDT Sent to [place] [facility]ist. Sharee White LPN [facility]05-08-2025 Miscellaneous Notes* Telephone Encounter - Sharee White LPN - 11/08/2024 2:38 PM EDT Sent to [place] [facility]. Sharee White LPN * Telephone Encounter - Marianela Edwards DO - 11/07/2024 7:42 PM EDT Spoke to pt - she would like to restart norvasc 10 mg daily and will f/u in 2 weeks for [place] BP Recheck Marianela Edwards DO * Telephone Encounter - Gloria Srinivasan MA - 11/07/2024 4:19 PM EDT Cecy Amaral NP who was out doing a home assessment on patient left message stating patient's BP today was elevated, left arm 180/88 and right arm 176/84. Patient's sister Leena also left message stating patient is willing to start on a BP medication now as her BP has been elevated for awhile.Requesting script be sent to [facility]. Please advise. Gloria Srinivasan MA documented in this encounterCrystal [facility]05-08-2025 Telephone encounter Note * Telephone Encounter - Marianela Edwards DO - 11/08/2024 12:47 PM EDT I called and spoke to pt. Her BP has been going up. She would like to restart norvasc 10 mg daily. I advised her to make an appt in 2 weeks for NV BP recheck after starting norvasc 10 mg Marianela Edwards DO [facility]05-08-2025 Miscellaneous Notes* Telephone Encounter - Marianela Edwards DO - 11/08/2024 12:47 PM EDT I called and spoke to pt. Her BP has been going up. She would like to restart norvasc 10 mg daily. I advised her to make an appt in 2 weeks for NV BP recheck after starting norvasc 10 mg Marianela Edwards DO documented in this encounterCrystal [facility]05-07-2025 Telephone encounter Note * Telephone Encounter - Marianela Edwards DO - 11/07/2024 7:42 PM EDT Spoke to pt - she would like to restart norvasc 10 mg daily and will f/u in 2 weeks for NV BP Recheck Marianela Edwards DO [facility]05-07-2025 Telephone encounter Note* Telephone Encounter - Gloria Srinivasan MA - 11/07/2024 4:19 PM EDT Cecy Amaral NP who was out doing a home assessment on patient left message stating patient's BP today was elevated, left arm 180/88 and right arm 176/84. Patient's sister Leena also left message stating patient is willing to start on a BP medication now as her BP has been elevated for awhile.Requesting script be sent to [facility]. Please advise. Gloria Srinivasan MA [facility]05-06-2025 [facility] History of Present illness Narrative* Argenis Nagy, - 11/06/2024 10:50 AM EDT Images from the original note were not included. [facility] [place] DEPARTMENT OF VASCULAR SURGERY OUTPATIENT VISIT DATE [...] activities Will have her follow up in [place] with Dr. Padgett SIGNATURE: Argenis Nagy DO PATIENT NAME: Maureen Barron DATE: November 06, 2024 TIME: 10:51 AM documented in this encounterCrystal Clinic [facility]04-18-2025 History of Present illness Narrative* Philip Luz, TECHNOLOGIST - 10/19/2024 1:30 PM EDT Radiology Service Progress Note DATE OF SERVICE: [...] Assigned female at . status: : No status:NO. PATIENT RELEVANT IMPLANT DATA REVIEWED: Yes PATIENT PRESENTS WITH AN IMPLANTABLE OR ATTACHED MOP MAKER: No ALLERGIES: Reviewed and unchanged CONTRAST ALLERGY: [...] creatinine assay has traceable calibration to isotope dilution- mass spectrometry. Refer to KDIGO guidelines for clinical interpretation. In patients with unstable renal function, e.g. those with acute kidney injury, the eGFRmay not accurately reflect actual GFR. P.O.C.T. RESULTS: POC done: Yes, See Lab Tab October 19, 2024 TREATMENT: N/A PERIPHERAL IV DATA: Inpatient - refer to LDA documentation RADIOLOGY DEPARTMENT: CT; Exam(s) Completed: CTA Aorta/leg runoff SIGNATURE: TECHNOLOGIST Hugh PATIENT NAME: Maureen Barron DATE: October 19, 2024 TIME: 2:14 PM documented in this encounterCrystal Clinic [facility] Center04-18-2025 NoteHNO ID: [id number] Author: PHILIP LUZ TECHNOLOGIST Service: Radiology Author [...] PATIENT PRESENTS WITH AN IMPLANTABLE OR ATTACHED MOP MAKER: No ALLERGIES: Reviewed and unchanged CONTRAST ALLERGY: [...] Barron DATE: October 19, 2024 TIME: 2:14 PMCommunity [id number] Nurse Note* Marbella Marie RN - 10/19/2024 1:30 PM EDT Radiology Service Progress Note DATE OF SERVICE: [...] Assigned female at . status: : No status:NO. ALLERGIES: Reviewed and unchanged CONTRAST ALLERGY: No [...] creatinine assay has traceable calibration to isotope dilution- mass spectrometry. Refer to KDIGO guidelines for clinical interpretation. In patients with unstable renal function, e.g. those with acute kidney injury, the eGFRmay not accurately reflect actual GFR. P.O.C.T. RESULTS: N/A October 19, 2024 TREATMENT: N/A IV SITE: Ambulatory: A peripheral IV was started in the Right with a Angio cath: 20 gauge. IV SITE APPEARANCE: Clean,Dry and Intact SIGNATURE: Marbella Marie RN PATIENT NAME: Maureen Barron DATE: October 19, 2024 TIME: 1:56 PM [facility]04-18-2025 Nurse Note* Marbella Marie RN - 10/19/2024 1:30 PM EDT Radiology Service Progress Note DATE OF SERVICE: [...] Assigned female at . status: : No status:NO. ALLERGIES: Reviewed and unchanged CONTRAST ALLERGY: No [...] creatinine assay has traceable calibration to isotope dilution- mass spectrometry. Refer to KDIGO guidelines for clinical interpretation. In patients with unstable renal function, e.g. those with acute kidney injury, the eGFRmay not accurately reflect actual GFR. P.O.C.T. RESULTS: N/A October 19, 2024 TREATMENT: N/A IV SITE: Ambulatory: A peripheral IV was started in the Right with a Angio cath: 20 gauge. IV SITE APPEARANCE: Clean,Dry and Intact SIGNATURE: Marbella Marie RN PATIENT NAME: Maureen Barron DATE: October 19, 2024 TIME: 1:56 PM documented in this encounterCrystal Clinic [facility]04-17-2025 Chief complaint+Reason for visit Narrative* Chief Complaint Admit Date consultation October 18, 2024 9:5 5am NECK RADICULAR PAIN November 19, 2024 12:27 pm sob December 11, 2024 2:33 am ACUTE RESPIRATORY DISTRESS, CONGESTIVE H EART December 11, 2024 2:59am Reason for Visit Admit Date Carpal tunnel syndrome on right October 182024 9:55am Neck and shoulder pain October 18, 2024 9:55am Tremor October 18, 2024 9:5 5am Congestive heart failure December 11, 2024 2:59am Elevated troponin December 11, 2024 2:59 am Peripheral vascular disease December 11, 025 2:59am Respiratory distress, acute December 11 025 2:59am Smoking 1/2 pack a day or less December 2:59am [facility] Work Phone: 1(880) 733-103804-17-2025 Chief complaint+Reason for visit Narrative * Chief Complaint Admit Date consultation October 18, 2024 9:5 5am NECK RADICULAR PAIN November 19, 2024 12:27 pm sob December 11, 2024 2:33 am ACUTE RESPIRATORY DISTRESS, CONGESTIVE H EART December 11, 2024 2:59am ACUTE RESPIRATORY DISTRESS, CONGESTIVE H EART December 11, 2024 9:57am ACUTE RESPIRATORY DISTRESS, CONGESTIVE H EART December 12, 2024 7:50am ACUTE RESPIRATORY DISTRESS, CONGESTIVE H EART December 12, 2024 9:24am ACUTE RESPIRATORY DISTRESS, CONGESTIVE H EART December 13, 2024 7:05am ACUTE RESPIRATORY DISTRESS, CONGESTIVE H EART December 13, 2024 8:44am Reason for Visit Admit Date Carpal tunnel syndrome on right October 182024 9:55am Neck and shoulder pain October 18, 2024 9:55am Tremor October 18, 2024 9:5 5am Acute hypoxic respiratory failure December 022024 2:59am Carotid arterial disease December 11, 2024 2:59am Congestive heart failure December 11, 2024 2:59am Elevated troponin December 11, 2024 2:59 am Low TSH level December 11, 2024 2:59 am NSTEMI, initial episode of care December 2:59am PAT (paroxysmal atrial tachycardia) December 11, 2024 2:59am Peripheral vascular disease December 11 2:59am Poisoning December 11, 2024 2:59 am Protein calorie malnutrition December 11, 2024 2:59am Psychosis December 11, 2024 2:59 am Respiratory distress, acute December 11 025 2:59am Smoking 1/2 pack a day or less December 2:59am CHF exacerbation December 11, 2024 2:59 am [facility] Work Phone: 1(621) 547-670204-17-2025 Chief complaint+Reason for visit Narrative * Chief Complaint Admit Date consultation October 18, 2024 9:5 5am NECK RADICULAR PAIN November 19, 2024 12:27 pm sob December 11, 2024 2:33 am ACUTE RESPIRATORY DISTRESS, CONGESTIVE H EART December 11, 2024 2:59am ACUTE RESPIRATORY DISTRESS, CONGESTIVE H EART December 11, 2024 9:57am ACUTE RESPIRATORY DISTRESS, CONGESTIVE H EART December 12, 2024 7:50am ACUTE RESPIRATORY DISTRESS, CONGESTIVE H EART December 12, 2024 9:24am ACUTE RESPIRATORY DISTRESS, CONGESTIVE H EART December 13, 2024 7:05am ACUTE RESPIRATORY DISTRESS, CONGESTIVE H EART December 13, 2024 8:44am HYPOXIA, COPD, CHF, CARDIOMYOPATHY, CAD, PACEMAKER January 07, 2025 10:44pm Reason for Visit Admit Date Carpal tunnel syndrome on right October 182024 9:55am Neck and shoulder pain October 18, 2024 9:55am Tremor October 18, 2024 9:5 5am Low TSH level December 11, 2024 2:59 am NSTEMI, initial episode of care December 2:59am Protein calorie malnutrition December 11, 2024 2:59am Psychosis December 11, 2024 2:59 am CHF exacerbation December 11, 2024 2:59 am Acute hypoxic respiratory failure December 022024 2:59am Elevated troponin December 11, 2024 2:59 am PAT (paroxysmal atrial tachycardia) December 11, 2024 2:59am Poisoning December 11, 2024 2:59 am Respiratory distress, acute December 11, 025 2:59am Carotid arterial disease December 11, 2024 2:59am Congestive heart failure December 11, 2024 2:59am Peripheral vascular disease December 11 025 2:59am Smoking 1/2 pack a day or less December 2:59am [facility] Work Phone: 1(183) 835-248604-17-2025 Evaluation note* Diagnosis Onset Date Resolution Status Admit Date Carpal tunnel syndrome on right disability manager donya October 18, 2024 9:55am Neck and shoulder pain chronic Ap ril 2024 9:55am Tremor chronic October 18 9:55am Congestive heart failure acute December 11, 2024 2:59am Elevated troponin acute December 112024 2:59am Peripheral vascular disease acute December 11, 2024 2:59am Respiratory distress, acute acute December 11, 2024 2:59am Smoking 1/2 pack a day or less acute December 11, 2024 2:59am [facility] Work Phone: 1(700) 767-449304-17-2025 Evaluation note* Diagnosis Onset Date Resolution Status Admit Date Carpal tunnel syndrome on right disability manager donya October 18, 2024 9:55am Neck and shoulder pain chronic Ap ril 2024 9:55am Tremor chronic October 18 9:55am Acute hypoxic respiratory failure acute December 11, 2024 2:59am Carotid arterial disease acute December 11, 2024 2:59am Congestive heart failure acute December 11, 2024 2:59am Elevated troponin acute December 112024 2:59am Low TSH level acute December 11, 2024 2:59am NSTEMI, initial episode of care acut e December 11, 2024 2:59am PAT (paroxysmal atrial tachycardia) acute December 11, 2024 2:59am Peripheral vascular disease acute December 11, 2024 2:59am Poisoning acute December 11 2:59am Protein calorie malnutrition acute December 11, 2024 2:59am Psychosis acute December 11 2:59am Respiratory distress, acute acute December 11, 2024 2:59am Smoking 1/2 pack a day or less acute December 11, 2024 2:59am CHF exacerbation chronic December 2:59am [facility] Work Phone: 1(502) 200-690704-17-2025 Evaluation note* Diagnosis Onset Date Resolution Status Admit Date Carpal tunnel syndrome on right disability manager donya October 18, 2024 9:55am Neck and shoulder pain chronic Ap 2024 9:55am Tremor chronic October 18 9:55am Low TSH level acute December 11, 2024 2:59am NSTEMI, initial episode of care acut e December 11, 2024 2:59am Protein calorie malnutrition acute December 11, 2024 2:59am Psychosis acute December 11 2:59am CHF exacerbation chronic December 2:59am Acute hypoxic respiratory failure resolved December 11, 2024 2:59am Elevated troponin resolved December 112024 2:59am PAT (paroxysmal atrial tachycardia) resolved December 11, 2024 2:59am Poisoning resolved December 11 2:59am Respiratory distress, acute resolved December 11, 2024 2:59am Carotid arterial disease inactive December 11, 2024 2:59am Congestive heart failure inactive December 11, 2024 2:59am Peripheral vascular disease inactive December 11, 2024 2:59am Smoking 1/2 pack a day or less inact guillermo December 11, 2024 2:59am [facility] Work Phone: 1(586) 439-234504-04-2025 Telephone encounter Note* Telephone Encounter - Shari López MA - 10/05/2024 7:25 AM EDT Steve on pt. Vm with all information. Shari López MA [facility]04-04-2025 Miscellaneous Notes* Telephone Encounter - Shari López MA - 10/05/2024 7:25 AM EDT Lm on pt. Vm with all information. Shari López MA * Telephone Encounter - Marianela Edwards DO - 10/03/2024 8:29 PM EDT Please call pt- her thyroid levels are now a little high. I will adjust her medication and we should recheck TSH in 6 weeks Marianela Edwards DO documented in this encounterCrystal Clinic [facility]04-02-2025 Telephone encounter Note * Telephone Encounter - Marianela Edwards DO - 10/03/2024 8:29 PM EDT Please call pt- her thyroid levels are now a little high. I will adjust her medication and we should recheck TSH in 6 weeks Marianela Edwards DO [facility]03-25-2025 [facility]Ke[facility] History of Present illness Narrative* Argenis Nagy, - 09/25/2024 9:48 AM EDT Images from the original note were not included. [facility] , [facility] [place] DEPARTMENT OF VASCULAR SURGERY OUTPATIENT VISIT DATE [...] BP Cuff Size: Regular Adult) Pulse 83 [id number]% Gen- no distress Ext- nonpalpable distal pulse, no ulceration or tissue loss, bilateral prominent superficial veins,spider veins Diagnostic tests reviewed for today's visit: [...] thigh. Small branches/spider veins proximal to mid calf/foreman. Negative for valvular incompetency in the small [...] 2024 TIME: 9:48 AM documented in this encounterCrystal Clinic [facility] Center03-24-2025 Telephone encounter Note * Telephone Encounter - Gloria Srinivasan MA - 09/24/2024 9:05 AM EDT pharmacy electronically requesting refills as follows: Last seen 06/25/24 . Last refill 07/28/24 . Requested Prescriptions Pending Prescriptions Disp Refills levothyroxine (SYNTHROID) 125 mcg tablet [Pharmacy Med Name: LEVOTHYROXINE 125 MCG TABLET] 30 tablet 1 Sig: TAKE 1 TABLET BY MOUTH EVERY DAY Please review and advise. Gloria Srinivasan MA [facility]03-24-2025 Miscellaneous Notes* Telephone Encounter - Gloria Srinivasan MA - 09/24/2024 9:05 AM EDT pharmacy electronically requesting refills as follows: Last seen 06/25/24 . Last refill 07/28/24 . Requested Prescriptions Pending Prescriptions Disp Refills levothyroxine (SYNTHROID) 125 mcg tablet [Pharmacy Med Name: LEVOTHYROXINE 125 MCG TABLET] 30 tablet 1 Sig: TAKE 1 TABLET BY MOUTH EVERY DAY Please review and advise. Gloria Srinivasan MA documented in this encounterCrystal [facility]03-18-2025 Telephone encounter Note * Telephone Encounter - Shari López MA - 09/18/2024 11:07 AM EDT Patient notified. Shari López MA [facility]03-18-2025 Miscellaneous Notes* Telephone Encounter - Shari López MA - 09/18/2024 11:07 AM EDT Patient notified. Shari López MA * Telephone Encounter - Marianela Edwards DO - 09/18/2024 10:46 AM EDT Order attached Marianela Edwards DO * Telephone Encounter - Gloria Srinivasan MA - 09/11/2024 7:49 AM EDT ----- Message from Shari Erickson MA sent at 07/31/2024 8:22 AM EST ----- Please put in reminder for pt to have TSH in 6 weeks, [facility] in this encounter[facility] Telephone encounter Note * Telephone Encounter - Marianela Edwards DO - 09/18/2024 10:46 AM EDT Order attached Marianela Edwards DO [facility]03-11-2025 Telephone encounter Note* Telephone Encounter - Gloria Srinivasan MA - 09/11/2024 7:49 AM EDT ----- Message from Shari Erickson MA sent at 07/31/2024 8:22 AM EST ----- Please put in reminder for pt to have TSH in 6 weeks, [facility]02-27[facility] History of Present illness Narrative* Tito Thomas RT(R) - 08/30/2024 1:40 PM EST Radiology Service Progress Note PATIENT NAME: Maureen Barron DATE OF SERVICE: August 30, 2024 TIME: 1:20 PM PATIENT IDENTITY VERIFICATION COMPLETED USING TWO (2) IDENTIFIERS: Name and Date of confirmedby patient verbally. FALL SCREENING: Has the patient had 2 falls in the last year or 1 fall with injury or currently using an Ambulatory Assistive Device (Walker, Cane, Wheelchair, Crutches, etc.)? No PATIENT GENDER DATA: Assigned female at . status: : No status:NO. PATIENT RELEVANT IMPLANT DATA REVIEWED: Not Applicable PATIENT PRESENTS WITH AN IMPLANTABLE OR ATTACHED MOP MAKER: No RADIOLOGY DEPARTMENT: Bone Density PERIPHERAL IV DATA: Not applicable SIGNED BY: RT Carmen(R) August 30, 2024 1:20 PM documented in this encounterCrystal [facility]02-27-2025 [facility] History of Present illness Narrative* Yuko Mojica, Mammo Tech - 08/30/2024 12:50 PM EST Radiology Service Progress Note PATIENT NAME: Maureen Barron DATE OF SERVICE: August 30, 2024 TIME: 12:51 PM PATIENT IDENTITY VERIFICATION COMPLETED USING TWO (2) IDENTIFIERS: Name and Date of confirmedby patient verbally. FALL SCREENING: Has the patient had 2 falls in the last year or 1 fall with injury or currently using an Ambulatory Assistive Device (Walker, Cane, Wheelchair, Crutches, etc.)? No PATIENT GENDER DATA: Assigned female at . status: : No status:NO. PATIENT RELEVANT IMPLANT DATA REVIEWED: Not Applicable PATIENT PRESENTS WITH AN IMPLANTABLE OR ATTACHED MOP MAKER: No RADIOLOGY DEPARTMENT: Mammography PERIPHERAL IV DATA: Not applicable SIGNED BY: [place] Henryo Scout August 30, 2024 12:51 PM documented in this encounterC[facility]02-27-2025 [facility]25 [facility]01-28-[facility] History of Present illness Narrative* Argenis Nagy DO - 07/31/2024 8:37 AM EST Images from the original note were not included. [facility] [place] DEPARTMENT OF VASCULAR SURGERY OUTPATIENT VISIT DATE July 31, 2024 OUTPATIENT VISIT TYPE CONSULTATION SERVICE DATE: 07/31/2024 SERVICE TIME: 8:38 AM PRIMARY CARE PHYSICIAN: Marianela Edwards DO REFERRING PROVIDER: Marianela Edwards [address] [place] [id number] Consult requested for an opinion regarding the [...] a history of intracranial aneurysm treatment in [place]. She has had vein treatment in [place] where veins were dissolved. She admits to [...] SURGERY HX anders placed SHX VASCULAR SURGERY 2018 SOCIAL HISTORY: Social History Tobacco Use Smoking [...] 2024 TIME: 8:38 AM documented in this encounterC[facility]01-27-2025 Telephone encounter Note * Telephone Encounter - Desire Moss MA - 07/30/2024 7:13 AM EST ----- Message from Marianela Edwards DO sent at 07/28/2024 11:39 AM EST ----- Please put in reminder for pt to have TSH in 6 weeks, FLP/CMP in 3 months Marianela Edwards DO [facility]01-27-2025 Miscellaneous Notes* Telephone Encounter - Desire Moss MA - 07/30/2024 7:13 AM EST ----- Message from Marianela Edwards DO sent at 07/28/2024 11:39 AM EST ----- Please put in reminder for pt to have TSH in 6 weeks, FLP/CMP in 3 months Marianela Edwards DO documented in this encounterCrystal Clinic [facility]01-22-2025 NoteHNO ID: [id number] Author: ANA GUERRA RN Service: ? Author [...] questions performed? Addressed 07/11/24 N/A Concerns: N/A Condenser Tube Tender plan for next outreach: Will follow-up in about 2wks. Signature: Ana Guerra RN July 25[facility] History of Present illness Narrative* Ana Guerra RN - 07/25/2024 4:01 PM EST AG TRANSITIONAL CARE MANAGEMENT (TCM) FOLLOW-UP NOTE Patient identified by name and date of : NO Diagnosis: N/A Summary: TCM RN received a notification that pt's TCM appointment for 07/26/24 was canceled. TCM RN called ptto reschedule appointment - left msg. Health leads screening tool questions performed? Addressed 07/11/24 N/A Concerns: N/A Condenser Tube Tender plan for next outreach: Will follow-up in about 2wks. Signature: Ana Guerra RN July 25, 2024 documented in this encounterC[facility]01-22-2025 Telephone encounter Note * Telephone Encounter - Shari López MA - 07/25/2024 7:57 AM EST Left message on patients voicemail with all information. Reminder placed. Shari López MA [facility]01-22-2025 Miscellaneous Notes* Telephone Encounter - Shari López MA - 07/25/2024 7:57 AM EST Left message on patients voicemail with all information. Reminder placed. Shari López MA * Telephone Encounter - Marianela Edwards DO - 07/24/2024 10:09 PM EST Please call pt- her thyroid levels are low. I have increased synthroid to 112 mcg daily and we willrecheck TSH in 2 months Marianela Edwards DO * Telephone Encounter - Gloria Srinivasan MA - 07/24/2024 8:44 AM EST patient phones requesting refills as follows: Last seen 06/25/24 . Last refill previous pcp . Requested Prescriptions Pending Prescriptions Disp Refills levothyroxine (SYNTHROID) 100 mcg tablet 90 tablet 1 Sig: Take 1 tablet by mouth daily before breakfast. Please review and advise. Gloria Srinivasan MA documented in this encounterCrystal Clinic [facility]01-22-2025 NotePatient Outreach (AGACM) MAUREEN ANSARI ([id number]) 1955 F CHT Date Time Provider Department 07/25/24 ANA GUERRA [...] questions performed? Addressed 07/11/24 N/A Concerns: N/A Condenser Tube Tender plan for next outreach: Will follow-up in [...] 07/10/2024 Encounter Status:Closed by ANA GUERRA on 07/25/24[facility]01-21-2025 Telephone encounter Note* Telephone Encounter - Grace, Marianela Perez DO - 07/24/2024 10:09 PM EST Please call pt- her thyroid levels are low. I have increased synthroid to 112 mcg daily and we willrecheck TSH in 2 months Marianela Edwards DO [facility]01-21-2025 Telephone encounter Note* Telephone Encounter - Gloria Srinivasan MA - 07/24/2024 8:44 AM EST patient phones requesting refills as follows: Last seen 06/25/24 . Last refill previous pcp . Requested Prescriptions Pending Prescriptions Disp Refills levothyroxine (SYNTHROID) 100 mcg tablet 90 tablet 1 Sig: Take 1 tablet by mouth daily before breakfast. Please review and advise. Gloria Srinivasan MA [facility]01-08-2025 NoteHNO ID: [id number] Author: ANA GUERRA RN Service: ? Author Type: Registered Nurse Type: Progress Notes Filed: 07/12/2024 16:06 Note Text: TRANSITIONAL CARE MANAGEMENT (TCM) COMMUNITY MONITORING PROGRAM - [place] Provider Action/FYI: Still has neck stiffness and pain No headaches Pt hasn't checked her BP yet today TCM appointment with PCP - 07/26/24 (1st available) SUMMARY: Pt discharged from [facility] on 07/10/24. RISK 15 Admitted for: ART HTN Left-sided neck pain Patient seen Inpatient JOAQUIM Visit? N/A. Patient seen ICARE Program? N/A. Contact made with patient: Yes Hi my name is Ana Guerra RN and I am calling from the [facility] on behalf of your PCP, Marianela [...] hospital? Same Pt admits that she Left AMA. States she isn't normally like that, but [...] today. Admits that prior to moving to [place], she had poor eating habits; and had [...] lack companionship? No Pt moved here from [place], shortly before January 2024. She is living w/ her sister in [place]. States that they are the only 2 left in their family, besides some cousins. Her sister is helping her get her Social Security from [place] to [place] figured out. Do you ever need help [...] like to speak with a social work molybdenum steamer operator to help give you support for any of these needs? No It can be normal to feel anxious or down during a time like this. Would you like to talk to a mental health professional about how you have been feeling? No Pt admits that she has been really' depressed. Prior to moving to [place], pt was homeless, after going through a stressful divorce. States that she lost her 3 bedroom home. Declined to speak w/ a SW at this time. ACT (more content not included)...[facility]01-08-2025 History of Present illness Narrative* Ana Guerra RN - 07/11/2024 10:22 AM EST TRANSITIONAL CARE MANAGEMENT (TCM) COMMUNITY MONITORING PROGRAM - [place] Provider Action/FYI: Still has neck stiffness and pain No headaches Pt hasn't checked her BP yet today TCM appointment with PCP - 07/26/24 (1st available) SUMMARY: Pt discharged from [facility] on 07/10/24. RISK 15 Admitted for: ART HTN Left-sided neck pain Patient seen Inpatient JOAQUIM Visit? N/A. Patient seen ICARE Program? N/A. Contact made with patient: Yes Hi my name is Ana Guerra RN and I am calling from the [facility] on behalf of your PCP, Marianela Edwards, [...] but she was upset w/ the care andthe food. Pt still has a stiff neck, [...] everything looks good. Pain makes her BP violette- rocket. She feels that this is why her BP was 240/113 in the ED. By the time she left the hospital, states that her SBP was 140s. Pt took herself offof her BP meds last November. States that her PCP is aware. She hasn't checked her BP today. Admits thatprior to moving to [place], she had poor eating habits; and had put her health on the back burner. Sheis smoking cigarettes and pot. In January, shortly [...] lack companionship? No Pt moved here from [place], shortly before January 2024. She is living w/ her sister in [place]. States that they are the only 2 left in their family, besides some cousins. Her sister is helping her get her Social Security from [place] to [place] figured out. Do you ever need help [...] like to speak with a social work molybdenum steamer operator to help give you support for any of these needs? No It can be normal to feel anxious or down during a time like this. Would you like to talk to a mental health professional about how you have been feeling? No Pt admits that she has been really' depressed. Prior to moving to [place], pt was homeless, after goingthrough a stressful divorce. States that she lost her 3 bedroom home. Declined to speak w/ a [facility] this time. ACTION TAKEN: No action taken [...] date: 07/26/24 at 2:20p with Dr. Edwards (PCP).This was PCP's 1st available hospital f/u appointment. Pt missed her Bone Density test because she was admitted. States that she will reschedule it. Ana Guerra RN documented in this encounterCrystal Clinic [facility]01-08-2025 NotePatient Outreach (AGACM) MAUREEN ANSARI ([id number]) 1955 F CHT Date Time Provider Department 07/11/24 ANA GUERRA [facility] During your visit today, we recorded the following information about you: Ana Guerra, RN 07/12/2024 4:06 PM Signed TRANSITIONAL CARE MANAGEMENT (TCM) COMMUNITY MONITORING PROGRAM - [place] Provider Action/FYI: Still has neck stiffness and pain No headaches Pt hasn't checked her BP yet today TCM appointment with PCP - 07/26/24 (1st available) SUMMARY: Pt discharged from [facility] on 07/10/24. RISK 15 Admitted for: ART HTN Left-sided neck pain Patient seen Inpatient JOAQUIM Visit? N/A. Patient seen ICARE Program? N/A. Contact made with patient: Yes Hi my name is Ana Guerra RN and I am calling [facility] the [facility] on behalf of your PCP, Marianela [...] hospital? Same Pt admits that she Left AMA. States she isn't normally like that, but [...] today. Admits that prior to moving to [place], she had poor eating habits; and had [...] lack companionship? No Pt moved here from [place], shortly before January 2024. She is living w/ her sister in [place]. States that they are the only 2 left in their family, besides some cousins. Her sister is helping her get her Social Security from [place] to [place] figured out. Do you ever need help [...] like to speak with a social work molybdenum steamer operator to help give you support for any of these needs? No It can be normal to feel anxious or down during a time like this. Would you like to talk to a mental health professional about how you have been feeling? No Pt admits that she has been adrian (more content not included)...[facility]01-07-2025 NoteHNO ID: [id number] Author: PERI GRESHAM RN Service: Care Management Author Type: Registered Nurse Type: Care Mgt Progress Note Filed: 07/10/2024 10:58 Note Text: CARE MANAGEMENT PROGRESS NOTE SERVICE DATE: 07/10/2024 SERVICE TIME: 1039 LOS: 1 day IMM Follow Up Copy Given: Yes Copy given to:: Patient Method: In Person SIGNATURE: Peri Gresham RN PATIENT NAME: Maureen Barron DATE: July 10, 2024 TIME: 10:58 [facility]01-06-2025 NoteHNO ID: [id number] Author: TERE PATEL LSW Service: Care Management Author Type: Lamination Machine Operator Type: Care Mgt Initial Assessment Filed: 07/09/2024 [...] Home Advance Directives Current Advance Directive: None District Captain Attempted to Assist with AD Completion: Yes Action: Education Provided;Patient Unwilling Current Living Arrangements and Support Lives with: Family members Type of Residence: Mobile Home Does the patient have to climb stairs at home?: No Support: Family members How do you manage to accomplish the following: Independent: Ambulation;Bathe/Shower;Dress;Meals/Meal Prep;Going to the bathroom;Medication Management Dependent: Transportation to appointments/community Current Services/Equipment Current Post-Acute Service(s): None Discharge Planning Patient Goal(s): Be able to go home, General wellness [place] Explained: [place] Given: No Reason Not Given: [...] were you homeless or living in a alf (including now)?: Yes Utilities In the past 12 months has the electric, gas, oil, or water company threatened to shut off services in your [...] dual plan (has Medicaid), was homeless in [place] for a short time prior to moving to [place] after getting a divorce and losing her home, informed SW she is still trying to establish herself with providers in area. SW discussed drug use with patient as patient tested positive for amphetamines on admission. Patient reports she is not an active user but there are people at the [employer] complex where her sister lives cooking meth underneath the trailer and it is getting everywhere. It's coming [...] stable, sister able to provide transport at [place]. Anticipate no needs. SIGNATURE: ALTON Casiano PATIENT NAME: Maureen Barron DATE: July 09, 2024 TIME: 2:41 [facility]01-06-2025 NoteHNO ID: [id number] Author: JESI MATSON MD Service: Critical Care [...] 94.4 RDWCV 13.2 13.1 COAG: Recent Labs 07/09/24 032 APTT 29.8 INR 1.0 BMP: Recent Labs 07/09/24 0324 07/08/24 1642 GLUC 121* 162* NA 136 135* K 3.9 4.6 CHLOR 102 96* CO2 30 27 ANION 4* 12 BUN 13 16 CREAT 1.20* 1.26* CHEM: Recent Labs 07/09/24 0324 07/08/24 1642 ALB 3.3 -- TPROT 7.1 -- CA 10.0 10.4* MG 1.8 -- HEPATIC: Recent Labs 07/09/24 0324 ALKPHOS 88 ALT 10* AST 15 [...] occlusions managed previously by vascular surgeon in [place]. Patient reports that she has appointment with vascular surgeon to establish care in [place]. No LOC, syncope, neurologic deficits. 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 No concern at this time for evolution of aneurysm or bleed. - GI/DVT Prophylaxis: Not indicated/SCDs - F/E/N: LR 75/replace as needed/heart healthy diet - Code Status: Full code; discussed with patient 07/09/2024 with Fidencio Nelson APRN.CNP. ICU Checklist Last Documented/Reviewed time: 07/09/2024 10:26 AM ICU Code Status History assess/Full code by default: No, active code status present (more content not included)...[facility]01-06-2025 RknsRURH-NIT-4 (AGENT OF COVID-19) RNA: Not detected INFLUENZA A RNA: Not detected INFLUENZA B RNA: Not detected RESPIRATORY SYNCYTIAL VIRUS (RSV) RNA: Not detectedSamaritan Pacific Communities HospitalComment on above:Performed By: #### [id number] #### [facility] CLIA [id number] [address] [place] [address] [place] [id number] NoteHNO ID: [id number] Author: MARIANELA EDWARDS, DO Service: ? Author Type: Physician Type: Progress Notes Filed: 07/08/2024 08:52 Note Text: SUBJECTIVE: 68 year old female here with her sister to establish. I have fully reviewed the past medical, surgical, social and family history and updated the Histories section of [employer]. She has a history of carotid endarterectomy, [...] 65+ YR, HIGH DOSE, (more content not included)...[facility]12-23-2024 History of Present illness Narrative* Marianela Edwards, - 06/25/2024 1:35 PM EST SUBJECTIVE: 68 year old female here with her sister to establish. I have fully reviewed the past medical, surgical, social and family history and updated the Histories section of [facility]. She has a history of carotid [...] immunity disorder - ICD9: V77.99, ICD10: Z13.29, Z13.228,Z13.0 - COMPREHENSIVE METABOLIC PANEL 8. Screening for blood disease - ICD9: V78.9, ICD10: Z13.0 - COMPLETE BLOOD COUNT Marianela Edwards DO documented in this encounterCrystal Clinic Orthopedic Center12-23-2024 Instructions* Patient Instructions* Gloria Srinivasan MA - 06/25/2024 1:25 PM EST BONE MINERAL DENSITY PATIENT INSTRUCTIONS Bone mineral density testing measures the amount of calcium in certain parts of your bones. This information determines how strong your bones are. The test is used to detect osteoporosis, a disease in which the bone's mineral content and density are low, increasing a person's risk of fractures. Thelumbar spine (lower back) and the hip are [...] your usual activities immediately. documented in this encounterCrystal Clinic Orthopedic Center09-14-2024 [facility] Medical Records Department [address] [place] [id number] Discharge Summary 03/17/24 1049 MR#: [id number] Acct: [id number] Name: MAUREEN ANSARI ALYSHA Rep #: [id number] : 1955 68 From: Sukhi Forbes DO PCP: Care Physician,No Primary Status:AD[place] [facility] [id number] Providers Date of Admission: 03/07/24 Primary Care [...] Plans were to get her into a [facility] facility though he had issues regards to the patient having [employer] insurance. Patient is now residing here permanently living with her sister. Plan is for her to go to [facility] facility but patient is feeling much better [...] Attending Provider: Sukhi Forbes (more content not included)...[facility] note * Diagnosis Hypothyroidism, acquired- Primary Unspecified hypothyroidism Claudication [...] health care facility [facility]* Diagnosis Hypothyroidism, acquired Unspecified hypothyroidism documented [facility]* Diagnosis Symptomatic varicose veins of both lower extremities- Primary Varicose veins of lower extremities with other complications Claudication in peripheral vascular disease (HCC) Peripheral vascular disease, unspecified Primary hypertension Unspecified essential hypertension documented [facility]* Diagnosis Asymptomatic menopause documented in this encounter [facility] note* Diagnosis Encounter for screening mammogram for breast cancer documented in this encounter [facility]* Diagnosis Hypothyroidism, acquired- Primary Unspecified hypothyroidism documented [facility] this [facility]* Diagnosis Peripheral vascular disease (HCC)- Primary Peripheral vascular disease, unspecified Screening for nephropathy documented [facility] this [facility]* Diagnosis Peripheral vascular disease Peripheral vascular disease, unspecified documented in this encounter [facility]* Diagnosis Age-related osteoporosis without current pathological fracture- Primary Senile osteoporosis documented in this encounter [facility]* Diagnosis Hypertension, essential- Primary Unspecified essential hypertension [facility] Diagnosis Hypothyroidism, acquired- Primary Unspecified hypothyroidism [facility] this encounter [facility]* Diagnosis Encounter for screening for cardiovascular disorders- Primary Screening for other and unspecified cardiovascular conditions Claudication Peripheral vascular disease, unspecified Primary hypertension Unspecified essential hypertension documented [facility] this encounter [facility]* Diagnosis Pre-operative clearance- Primary Preoperative examination, unspecified Nonrheumatic mitral valve regurgitation documented in this encounter [facility]* Diagnosis Shortness of breath- Primary documented in this encounter [facility] CenterHistory and physical note Author Francis Bojorquez [facility] Note Date/Time December 11, 2024 2:59 am [facility] Medical Records Department [address] [place] [address] History & Physical Exam 12/11/24 0233 MR#: [id number] Acct: [id number] Name: MAUREEN ANSARI Rep #:[id number] : 1955 69 From: Francis Bojorquez MD PCP: Dr. Marianela Edwards, DO Status:RE G ER Location: ED HPI - General General Date of Admission: 12/11/24 Date of Service: 12/11/24 Chief Complaint: Shortness of breath HPI Narrative MAUREEN BARRON, is a 69 F who presents to the emergency room with chief complaint of shortness of breath. Patient has become progressively short of breath over the past several days. Patient has significant past medical historyof peripheral vascular disease and severe carotid disease with 100% occlusion ofthe left and surgical intervention done to her right carotid artery. She is a smoker. She had been living in [place] and moved here to be near her sister and previously had a leg fracture and was struggling to regain ambulation with rehab for prolonged period of time and reportedly had lower extremity peripheralvascular disease as well. In the emergency room patient was tachypneic showing signs of impending respiratory failure. Laboratory studies reveal white blood cell count 11.3, hemoglobin 13.7, hematocrit 40.4, platelets 377, sodium 137, potassium 3.9, chloride 106, bicarb 18.3, BUN 13, creatinine 1.08, glucose 126, troponin 1980, BN TP 7545. CT angiogram of the chest was negative for pulmonaryembolism but did show moderate bilateral pleural effusions. Chest x-ray revealed cardiomegaly. In the emergency room her respiratory rate was as high as 40 and BiPAP therapy was supplemental oxygen was initiated and patient responded along with furosemide IV in the emergency room. A bedside ultrasound was performed in the emergency room which was negative for pericardial effusion. Despite her known peripheral vascular disease and carotid artery disease patient seems surprised to have cardiac issues at this time. Due to impending respiratory failure need for BiPAP therapy along with markedly elevated troponinand natruretic peptide patient will be admitted to the intensive care unit for further management of congestive heart failure. [facility] Medical History (Updated 12/11/24 @ 02:[address] Francis Bojorquez MD) Carpal tunnel syndrome on right Closed displaced bicondylar fracture of left tibia with routine healing CKD (chronic kidney disease) Cannabis use disorder HLD (hyperlipidemia) Tobacco use Carotid arterial disease Hypertension Home Medications ?Medication ?Instructions ?Recorded ?Last Taken ?Type amlodipine 10 mg tablet 10 mg PO DAILY htn 03/07/24 12/10/24 History cilostazol 50 mg tablet 50 mg PO BID 10/18/24 History levothyroxine 112 mcg tablet 112 mcg PO DAILY 12/10/24 12/10/24 History Allergy/AdvReac Type Severity Reaction Status Date / Time No Known Allergies Allergy Verified 12/10/24 23:26 Family History Mother , 89 Hypertension Pulmonary fibrosis Heart disease Glaucoma Father , 80 Hypertension Heart disease Diabetes Surgical History History of CEA (carotid endarterectomy) History of hip surgery Social History household members: family current occupational status: retired pets and animals: No Smoking Status: Current every day smoker tobacco type: cigarettes alcohol intake: never substance use type: marijuana caffeine: Yes Type: coffee Number of servings: 1 do you feel safe at home: Yes ROS Constitutional Constitutional: Reports chills and weakness; Denies fever(s) Eyes Eyes: Denies blurry vision ENT HEENT: Denies abnormal hearing Cardiovascular Cardiovascular: Denies chest pain Respiratory/Chest Respiratory/Chest: Reports shortness of breath at rest Gastrointestinal Gastrointestinal: Denies abdominal pain Genitourinary Genitourinary: Denies dysuria Musculoskeletal Musculoskeletal: Denies back pain Integumentary Integumentary: Denies dry skin or wounds Neurologic Neurologic: Denies abnormal speech Psychiatric Psychiatric: Denies anxiety Vital Signs Vital Signs Vital Signs: 12/10/24 23:24 12/10/24 23:26 12/10/24 23:34 Temperature 98.2 F 98.2 F Temperature Source Oral Oral Pulse Rate 97 88 Respiratory Rate 16 16 Respiratory Effort Short of Breath Respiratory Pattern Blood Pressure 117/65 117/65 Blood Pressure Mean 82 82 Pulse Ox 92 95 Oxygen Delivery Method Room Air Room Air Room Air Oxygen Flow Rate (L/min) Fraction of Inspired Oxygen (FIO2) 12/10/24 23:55 12/11/24 00:26 12/11/24 00:30 Temperature 98.2 F Temperature Source Oral Pulse Rate 91 Respiratory Rate 14 Respiratory Effort Respiratory Pattern Blood Pressure 122/70 H Blood Pressure Mean 87 Pulse Ox 92 92 Oxygen Delivery Method Room Air Room Air Nasal Cannula Oxygen Flow Rate (L/min) 2 Fraction of Inspired Oxygen (FIO2) 12/11/24 01:00 12/11/24 01:00 12/11/24 01:05 Temperature 98.2 F Temperature Source Oral Pulse Rate 100 Respiratory Rate 26 H Respiratory Effort Respiratory Pattern Blood Pressure 126/62 H Blood Pressure Mean 83 Pulse Ox 84 90 86 Oxygen Delivery Method Room Air Nasal Cannula Nasal Cannula Oxygen Flow Rate (L/min) 3 2 Fraction of Inspired Oxygen (FIO2) 12/11/24 01:32 12/11/24 01:32 12/11/24 01:32 Temperature Temperature Source Pulse Rate Respiratory Rate 26 H Respiratory Effort Respiratory Pattern Blood Pressure Blood Pressure Mean Pulse Ox 95 85 96 Oxygen Delivery Method Bi-pap Nasal Cannula Bi-pap Oxygen Flow Rate (L/min) 6 Fraction of Inspired Oxygen (FIO2) 60 12/11/24 01:32 12/11/24 01:32 12/11/24 02:19 Temperature 98.2 F Temperature Source Temporal Pulse Rate 99 84 Respiratory Rate 33 H 24 H Respiratory Effort Respiratory Pattern Tachypnea Blood Pressure 127/75 H Blood Pressure Mean 92 Pulse Ox 98 97 96 Oxygen Delivery Method Bi-pap Bi-pap Oxygen Flow Rate (L/min) Fraction of Inspired Oxygen (FIO2) 60 60 60 12/11/24 02:27 Temperature 98.2 F Temperature Source Pulse Rate 86 Respiratory Rate 25 H Respiratory Effort Respiratory Pattern Blood Pressure 127/75 H Blood Pressure Mean 92 Pulse Ox 87 Oxygen Delivery Method Oxygen Flow Rate (L/min) Fraction of Inspired Oxygen (FIO2) Weight Weight: 124 lb 12.506 oz Body Mass Index (BMI) 24.3 Physical Exam Const oriented x3 General Appearance: cooperative HEENT normocephalic and head/scalp atraumatic Eyes PERRL Neck no lymphadenopathy Lymph Lymphatic: no lymphadenopathy noted Resp Effort and Inspection: tachypneic and respiratory distress Auscultation: diminished lung sounds bilateral; Negative for rales, rhonchi or wheezes Cardio regular rate, regular rhythm, S1 normal heart sound and S2 normal heart sound GI normal to inspection, nondistended, normoactive bowel sounds Extremity no calf tenderness Skin General Skin Exam: no breakdown Neuro no focal motor deficits and no sensory deficits noted Speech: speech normal Psych thought process normal, cooperative and affect normal Results Lab / Micro Data 12/10/24 23:45 12/10/24 23:45 Labs: Laboratory Results - last 24 hr 12/10/24 23:45: WBC 11.3 H, RBC 4.45, Hgb 13.7, Hct 40.4, MCV 90.8, MCH 30.8, MCHC 33.9, RDW Std Deviation 43.1, RDW Coeff of Luis 13.2, Plt Count 377, MPV 10.1, Immature Gran % (Auto) 1.700 H, Neut % (Auto) 66.3, Lymph % (Auto) 16.5 L,[place] % (Auto) 11.4 H, Eos % (Auto) 3.1, Baso % (Auto) 1.0, Absolute Neuts (auto)7.5, Absolute Lymphs (auto) 1.87, Nucleated RBC % 0, Sodium 137, Potassium 3.9, Chloride 106, Carbon Dioxide 18.3 L, Anion Gap 12, BUN 13, Creatinine 1.08, Estim Creat Clear Calc 39.30 L, Est GFR (MDRD) Non-Af 56 L, BUN/Creatinine Ratio 11.8, Glucose 126 H, Calcium 8.9, Troponin T High Sens 1980 H*, NT pro BNP II 7545 H Imaging Radiology Impression Chest X-Ray 12/10/24 23:52 IMPRESSION: Cardiomegaly and CHF changes. Follow-up is advised Reading [id number] Chest CTA 12/11/24 00:48 IMPRESSION: No CT evidence of pulmonary embolus or aortic dissection. Moderate bilateral pleural effusions. Passive atelectatic airspace disease/consolidations of the lower lobes. Moderate interstitial pulmonary edema. Mild alveolar pulmonary edema. Mildly prominent mediastinal lymph nodes are noted with the largest measuring 1.4 cm. Small sliding hiatal hernia. Dilated supra hepatic IVC suggestive of dysfunction of the right cardiac cavities. Bilateral benign chronic hypertrophy of the adrenal glands. Reading Location: [place] [address] Assessment & Plan Assessment/Plan (1) Congestive heart failure: (2) Elevated troponin: (3) Respiratory distress, acute: (4) Peripheral vascular disease: (5) Smoking 1/2 pack a day or less: PLAN: Plan 1 acute respiratory distress?admit patient to intensive care unit, continue BiPAP therapy initiated in the emergency room will add furosemide 40 mg twice daily, repeat CBC BMp in a.m. 2. Congestive heart failure?consult cardiology, obtain echocardiogram, due to elevated troponins will continue to cycle cardiac markers. 3. Known peripheral vascular disease with hyperlipidemia?continue statin medication we will add Lovenox 1 mg/kg IV every 12 hours as this would be indicated in the setting of elevated troponin 4. DVT prophylaxis?low molecular weight heparin as above 5. Smoking?cessation encouraged Charges/Coding Visit Charges Inpatient E&M: 11444 Init Hosp L3 12/11/24 0259 <Electronically signed by Francis Bojorquez MD> Cosigner Signature (if applicable): CC: Dr. Marianela Edwards DO; Dr. Francis Bojorquez MD~ Signed [facility] Work Phone: Reason for referral (narrative)No reason for referral information availableWCommunity [facility] Work Phone: Reason for visit Narrative* Diagnostic Procedure Only (Routine) - Closed Specialty Diagnoses / Procedures Referred By Contac t Referred To Contact XR IMAGING Diagnoses Asymptomatic menopause Procedures DXA-AXIAL SKELETON DXA BONE DENSITY STUDY 1/> SITES AXIAL Marianela Lema DO [address] [place] [id number] Phone: tel: fax: [place] [address] Referral ID Status Reason Start Date Expiration Date V isits Requested Visits Authorized [id number] Closed Auto-Generate d Referral 07/06/2024 07/03/2025 1 1 [facility] for visit Narrative* Diagnostic Procedure Only (Routine) - Closed Specialty Diagnoses / Procedures Referred By Mayda t Referred To Contact BR IMAGING Diagnoses Encounter for screening mammogram for breast cancer Procedures BRAD SCREENING W RONALD SCREENING DIGITAL BREAST TOMOSYNTHESIS BI SCREENING MAMMOGRAPHY BI 2-VIEW BREAST INC CAD Marianela Edwards, DO [address] [place] [address] Phone: tel: fax: BR IMAGING [address] [place] [address] Referral ID Status Reason Start Date Expiration Date V isits Requested Visits Authorized [id number] Closed Auto-Generate d Referral 06/25/2024 07/25/2025 1 1 [facility] for visit Narrative* MRI/CT (Routine) - New Request Specialty Diagnoses / Procedures Referred By Mayda t Referred To Contact CT IMAGING Diagnoses Peripheral vascular disease Procedures CTA ABD/PEL LOWER EXTREM W IVCON CTA ABDL AORTA&BI ILIOFEM W/CONTRAST&POSTP Argenis Nagy, DO [address] [place] [address] Phone: tel: fax: [facility] [place] [address] Referral ID Status Reason Start Date Expiration Date Visits Requested Visits Authorized [id number] New Request Auto-Genera isabel Referral Patient Cleared - Admin/Chair man/Directo r advise to proceed or did not respond 09/25/2024 10/25/2025 1 0 [facility] for visit Narrative* Consult, Test, Treat (Routine) - Closed Specialty Diagnoses / Procedures Referred By Mayda t Referred To Contact Vascular Surgery Diagnoses Claudication Procedures CONSULT TO VASCULAR SURGERY OFFICE/OUTPATIENT [facility] 60 MINUTES Marianela Edwards, DO [address] [place] [address] Phone: tel: fax: Argenis Nagy, DO [address] [facility] [address] [place] [address] Phone: tel: Referral ID Status Reason Start Date Expiration Date V isits Requested Visits Authorized [id number] Closed PCP Requested Referral 06/25/2024 06/25/2025 1 1 [facility] for visit Narrative* Auth/Cert (Routine) Specialty Diagnoses / Procedures Referred By Contac t Referred To Contact HOSP INPATIENT Diagnoses NSTEMI (non-ST elevated myocardial infarction) (HCC) NSTEMI Procedures N/A [id number] [place] [address] Phone: tel: Referral ID Status Reason Start Date Expiration Date Visits Re quested Visits Authorized [id number] 1 1 [facility] Summary Purpose Family History Relationship Condition Age at Onset Recorded Date/T lilian mother Hypertension Unknown Fibrosis of lung Unknown Cardiac disease Unknown Glaucoma Unknown father Hypertension Unknown Diabetes mellitus Unknown Advance Directives Date Activated Date Inactivated Comments 07/09/2024 12:08 AM 07/10/2024 2:43 PM Question Answer Comments Full Code Order Discussed With: Patient Date Activated Date Inactivated Comments 07/09/2024 12:08 AM 07/10/2024 2:43 PM Question Answer Comments Full Code Order Discussed With: Patient Advance Directive Response Recorded Date/ Time Do you have a Healthcare Power of Manager Produce? No December 10, 2024 11:34pm Advance Directive Response Recorded Date/ Time Do you have a Healthcare Power of Manager Produce? No December 11, 2024 3:40am Documents on File Type Date Recorded Patient Program/Music Director Expl anation Advance Directive(s) 12/17/2024 7:50 PM Date Activated Date Inactivated Comments 12/15/2024 9:59 PM Date Activated Date Inactivated Comments 12/14/2024 2:46 PM 12/15/2024 7:40 PM Question Answer Comments Full Code Order Discussed With: Patient Date Activated Date Inactivated Comments 07/09/2024 12:08 AM 07/10/2024 2:43 PM Question Answer Comments Full Code Order Discussed With: Patient Documents on File Type Date Recorded Patient Program/Music Director Expl anation Advance Directive(s) 12/17/2024 7:50 PM Date Activated Date Inactivated Comments 12/15/2024 9:59 PM Date Activated Date Inactivated Comments 12/14/2024 2:46 PM 12/15/2024 7:40 PM Question Answer Comments Full Code Order Discussed With: Patient Date Activated Date Inactivated Comments 07/09/2024 12:08 AM 07/10/2024 2:43 PM Question Answer Comments Full Code Order Discussed With: Patient Date Activated Date Inactivated Comments 12/15/2024 9:59 PM 01/04/2025 4:16 PM Advance Directive Response Recorded Date/ Time Do you have a Healthcare Power of Manager Produce? No December 11, 2024 3:40am Do you have a Healthcare Power of Manager Produce? Yes January 07, 2025 2:43pm Date Activated Date Inactivated Comments 12/15/2024 9:59 PM 01/04/2025 4:16 PM Reason for Referral Specialty Diagnoses / Procedures Referred By Mayda green Referred To Contact Vascular Surgery Diagnoses Claudication (HCC) Procedures CONSULT TO VASCULAR SURGERY OFFICE/OUTPATIENT [facility] 60 MINUTES Marianela Edwards, DO [address] [place] [address] Argenis Nagy, DO [address] [address] Referral ID Status Reason Start Date Expiration Date Visits Requested Visits Authorized [id number] Pending Review PCP Requested Referral 06/25/2025 1 1 Specialty Diagnoses / Procedures Referred By Mayda green Referred To Contact XR IMAGING Diagnoses Asymptomatic menopause Procedures DXA-AXIAL SKELETON DXA BONE DENSITY STUDY 1/> SITES AXIAL SK Marianela Edwards, DO [address] [place] [address] [place] [address] Referral ID Status Reason Start Date Expiration Date Visits Requested Visits Authorized [id number] Authorized Auto-Generat ed Referral 07/06/2024 07/03/2025 1 1 Specialty Diagnoses / Procedures Referred By Mayda green Referred To Contact BR IMAGING Diagnoses Encounter for screening mammogram for breast cancer Procedures BRAD SCREENING W RONALD SCREENING DIGITAL BREAST TOMOSYNTHESIS BI SCREENING MAMMOGRAPHY BI 2-VIEW BREAST INC CAD Marianela Edwards, DO [address] [place] [address] Br Imaging [facility] [place] [address] Referral ID Status Reason Start Date Expiration Date Visits Requested Visits Authorized [id number] Pending Review Auto-Generat ed Referral 07/25/2025 1 1 Specialty Diagnoses / Procedures Referred By Mayda t Referred To Contact Cardiology Diagnoses Primary hypertension Procedures CONSULT TO CARDIOLOGY OFFICE/OUTPATIENT NEW HIGH MDM 60 MINUTES Argenis Nagy, DO [address] [place] [address] Referral ID Status Reason Start Date Expiration Date Visits Requested Visits Authorized [id number] Authorized PCP Requested Referral 07/31/2024 07/31/2025 1 1 Specialty Diagnoses / Procedures Referred By Mayda t Referred To Contact [facility] [place] Diagnoses Claudication in peripheral vascular disease (HCC) Procedures PVR LEG W/EXC [facility] N-INVAS PHYSIOLOGIC STD LXTR ART COMPL BI Argenis Nagy, DO [address] [place] [address] [address] Referral ID Status Reason Start Date Expiration Date Visits Requested Visits Authorized [id number] Authorized Auto-Generat ed Referral 07/31/2024 07/31/2025 1 1 Specialty Diagnoses / Procedures Referred By Mayda green Referred To Contact [facility] Diagnoses Symptomatic varicose veins of both lower extremities Procedures US VENOUS INCOMPETENCY [facility] DUP-SCAN XTR VEINS COMPLETE BILATERAL STUDY Argenis Nagy, DO [address] [place] [address] [address] Referral ID Status Reason Start Date Expiration Date Visits Requested Visits Authorized [id number] Authorized Auto-Generat ed Referral 07/31/2024 07/31/2025 1 1 Additional Source Comments INFORMATION SOURCE (unrecogn ized section and content) DATE CREATED AUTHOR 06/27/2024 [facility] DATE CREATED AUTHOR AUTHOR'S ORGANIZ ATION 07/15/2024 [facility] nt DATE CREATED AUTHOR AUTHOR'S ORGANIZ ATION 10/21/2024 [facility] DATE CREATED AUTHOR AUTHOR'S ORGANIZ ATION 12/20/2024 [facility] DATE CREATED AUTHOR AUTHOR'S ORGANIZ ATION 12/30/2024 [facility] DATE CREATED AUTHOR AUTHOR'S ORGANIZ ATION 01/09/2025 [facility] Source Comments (unrecognize d section and content) In the event this informatio n is protected by the Federal Confidentiality of Alcohol and Drug Abuse Patient Records regulations: The Federal rules restrict any use of the information to criminally investigate or prosecute any alcohol or drug abuse patient.[facility] the event this information is protected by the Federal Confidentiality of Alcohol and Drug Abuse Patient Records regulations: The Federal rules restrict any use of the information to criminally investigate or prosecute any alcohol or drug abuse patient.[facility] Center[facility] the event this information is protected by the Federal Confidentiality of Alcohol and Drug Abuse Patient Records regulations: The Federal rules restrict any use of the information to criminally investigate or prosecute any alcohol or drug abuse patient.[facility] Center[facility] the event this information is protected by the Federal Confidentiality of Alcohol and Drug Abuse Patient Records regulations: The Federal rules restrict any use of the information to criminally investigate or prosecute any alcohol or drug abuse patient.[facility] Center[facility] the event this information is protected by the Federal Confidentiality of Alcohol and Drug Abuse Patient Records regulations: The Federal rules restrict any use of the information to criminally investigate or prosecute any alcohol or drug abuse patient.[facility] Center[facility] the event this information is protected by the Federal Confidentiality of Alcohol and Drug Abuse Patient Records regulations: The Federal rules restrict any use of the information to criminally investigate or prosecute any alcohol or drug abuse patient.[facility] Center[facility] the event this information is protected by the Federal Confidentiality of Alcohol and Drug Abuse Patient Records regulations: The Federal rules restrict any use of the information to criminally investigate or prosecute any alcohol or drug abuse patient.[facility] CenterIn the event this information is protected by the Federal Confidentiality of Alcohol and Drug Abuse Patient Records regulations: The Federal rules restrict any use of the information to criminally investigate or prosecute any alcohol or drug abuse patient.[facility] CenterIn the event this information is protected by the Federal Confidentiality of Alcohol and Drug Abuse Patient Records regulations: The Federal rules restrict any use of the information to criminally investigate or prosecute any alcohol or drug abuse patient.[facility] Center[facility] the event this information is protected by the Federal Confidentiality of Alcohol and Drug Abuse Patient Records regulations: The Federal rules restrict any use of the information to criminally investigate or prosecute any alcohol or drug abuse patient.[facility] Center[facility] the event this information is protected by the Federal Confidentiality of Alcohol and Drug Abuse Patient Records regulations: The Federal rules restrict any use of the information to criminally investigate or prosecute any alcohol or drug abuse patient.[facility] Center[facility] the event this information is protected by the Federal Confidentiality of Alcohol and Drug Abuse Patient Records regulations: The Federal rules restrict any use of the information to criminally investigate or prosecute any alcohol or drug abuse patient.[facility] CenterIn the event this information is protected by the Federal Confidentiality of Alcohol and Drug Abuse Patient Records regulations: The Federal rules restrict any use of the information to criminally investigate or prosecute any alcohol or drug abuse patient.[facility] CenterIn the event this information is protected by the Federal Confidentiality of Alcohol and Drug Abuse Patient Records regulations: The Federal rules restrict any use of the information to criminally investigate or prosecute any alcohol or drug abuse patient.[facility] Center[facility] the event this information is protected by the Federal Confidentiality of Alcohol and Drug Abuse Patient Records regulations: The Federal rules restrict any use of the information to criminally investigate or prosecute any alcohol or drug abuse patient.[facility] CenterIn the event this information is protected by the Federal Confidentiality of Alcohol and Drug Abuse Patient Records regulations: The Federal rules restrict any use of the information to criminally investigate or prosecute any alcohol or drug abuse patient.[facility] Center[facility] the event this information is protected by the Federal Confidentiality of Alcohol and Drug Abuse Patient Records regulations: The Federal rules restrict any use of the information to criminally investigate or prosecute any alcohol or drug abuse patient.[facility] CenterIn the event this information is protected by the Federal Confidentiality of Alcohol and Drug Abuse Patient Records regulations: The Federal rules restrict any use of the information to criminally investigate or prosecute any alcohol or drug abuse patient.[facility] Center[facility] the event this information is protected by the Federal Confidentiality of Alcohol and Drug Abuse Patient Records regulations: The Federal rules restrict any use of the information to criminally investigate or prosecute any alcohol or drug abuse patient.[facility] CenterIn the event this information is protected by the Federal Confidentiality of Alcohol and Drug Abuse Patient Records regulations: The Federal rules restrict any use of the information to criminally investigate or prosecute any alcohol or drug abuse patient.[facility] CenterIn the event this information is protected by the Federal Confidentiality of Alcohol and Drug Abuse Patient Records regulations: The Federal rules restrict any use of the information to criminally investigate or prosecute any alcohol or drug abuse patient.[facility] CenterIn the event this information is protected by the Federal Confidentiality of Alcohol and Drug Abuse Patient Records regulations: The Federal rules restrict any use of the information to criminally investigate or prosecute any alcohol or drug abuse patient.[facility] CenterIn the event this information is protected by the Federal Confidentiality of Alcohol and Drug Abuse Patient Records regulations: The Federal rules restrict any use of the information to criminally investigate or prosecute any alcohol or drug abuse patient.[facility] CenterIn the event this information is protected by the Federal Confidentiality of Alcohol and Drug Abuse Patient Records regulations: The Federal rules restrict any use of the information to criminally investigate or prosecute any alcohol or drug abuse patient.[facility] CenterIn the event this information is protected by the Federal Confidentiality of Alcohol and Drug Abuse Patient Records regulations: The Federal rules restrict any use of the information to criminally investigate or prosecute any alcohol or drug abuse patient.[facility] CenterIn the event this information is protected by the Federal Confidentiality of Alcohol and Drug Abuse Patient Records regulations: The Federal rules restrict any use of the information to criminally investigate or prosecute any alcohol or drug abuse patient.[facility] CenterIn the event this information is protected by the Federal Confidentiality of Alcohol and Drug Abuse Patient Records regulations: The Federal rules restrict any use of the information to criminally investigate or prosecute any alcohol or drug abuse patient.[facility] CenterIn the event this information is protected by the Federal Confidentiality of Alcohol and Drug Abuse Patient Records regulations: The Federal rules restrict any use of the information to criminally investigate or prosecute any alcohol or drug abuse patient.[facility] CenterIn the event this information is protected by the Federal Confidentiality of Alcohol and Drug Abuse Patient Records regulations: The Federal rules restrict any use of the information to criminally investigate or prosecute any alcohol or drug abuse patient.[facility] Reason for Visit (unrecogniz ed section and content) Reason Comments New Patient Establish care previ ous pcp was in [place], but did not really have a primary out there. Would like to discuss medications, needs thyroid medication refill. Would like a referral to cardiology for the back of her legs due to the veins, has had blockages in the past. Would like to go to [facility]. Hands shake and she is numb all the time. Had a nerve conduction test in [place]. Feels like she is losing oxygen in her legs, are tired all the time Reason Onset Date Comments Transition Of Care 07/11/2024 Left [facility] 07/10/24 Reason Onset Date Comments Refill Request 07/24/2024 Reason Onset Date Comments Transition Of Care 07/25/2024 TCM f/u - Karla ointment Reason Comments Lab Orders Reason Comments New Patient Reason Comments Refill Request Reason Comments Established Patient Reason Comments Patient Update Reason Onset Date Comments Results 10/03/2024 Reason Comments Spirometry Specialty Diagnoses / Procedures Referred By Mayda t Referred To Contact HOSP INPATIENT Diagnoses NSTEMI (non-ST elevated myocardial infarction) (HCC) NSTEMI Procedures N/A [id number] [place] [address] Phone: tel: Referral ID Status Reason Start Date Expiration Date Visits Re quested Visits Authorized [id number] 1 Reason Onset Date Comments Refill Request 01/07/2025 Reason Onset Date Comments Refill Request 01/07/2025 Atorvastatin. Care Teams (unrecognized sec tion and content) Rn Imcu Relationship Specialty Start Date End Date Marianela Edwards DO [address] [place] [place], [place] [id number] PCP - General Family Medicine 06/25/24 Rn Imcu Relationship Specialty Start Date End Date Marianela Edwards DO [address] [place], [place] [id number] PCP - General Family Medicine 07/08/24 Marianela Edwards DO [address] [place], [place] [id number] Family Medicine 07/08/24 Ana Guerra, RN Primary Care Poultry Debeaker 07/11/24 Rn Imcu Relationship Specialty Start Date End Date Marianela Edwards DO [address] [facility] [place] [id number] PCP - General Family Medicine 07/08/24 Marianela Edwards DO [address] [place] [address] Family Medicine 07/08/24 Ana Guerra, TESHA Primary Care Poultry Debeaker 07/11/24 Rn Imcu Relationship Specialty Start Date End Date Marianela Edwards DO [address] [place] [address] PCP - General Family Medicine 07/08/24 Marianela Edwards DO [address] [place] [address] Family Medicine 07/08/24 Ana Guerra, TESHA Primary Care Poultry Debeaker 07/11/24 Rn Imcu Relationship Specialty Start Date End Date Marianela Edwards DO [address] [place] [address] PCP - General Family Medicine 07/08/24 Marianela Edwards DO [address] [place] [address] Family Medicine 07/08/24 Ana Guerra RN Primary Care Poultry Debeaker 07/11/24 Rn Imcu Relationship Specialty Start Date End Date Marianela Edwards DO [address] [place] [address] PCP - General Family Medicine 07/08/24 Marianela Edwards DO [address] [place] [address] Family Medicine 07/08/24 Rn Imcu Relationship Specialty Start Date End Date Marianela Edwards DO [address] [place] [address] PCP - General Family Medicine 07/08/24 Marianela Edwards DO [address] [place] [facility] [place] [address] Family Medicine 07/08/24 Rn Imcu Relationship Specialty Start Date End Date Marian[facility] Edwards DO [address] [facility] [place] [address] PCP - General Family Medicine 07/08/24 Marianela Edwards DO [address] [facility] [place] [address] Family Medicine 07/08/24 Rn Imcu Relationship Specialty Start Date End Date Marianela Edwards DO [address] [facility] [place] [address] PCP - General Family Medicine 07/08/24 Marianela Edwards DO [address] [facility] [place] [address] Family Medicine 07/08/24 Rn Imcu Relationship Specialty Start Date End Date Marianela Edwards DO [address] [facility] [address] PCP - General Family Medicine 07/08/24 Marianela Edwards DO [address] [place] [address] Family Medicine 07/08/24 Rn Imcu Relationship Specialty Start Date End Date Marianela Edwards DO [address] [place] [address] PCP - General Family Medicine 07/08/24 Marianela Edwards DO [address] [facility] [place] [address] Family Medicine 07/08/24 Rn Imcu Relationship Specialty Start Date End Date Marianela Edwards DO [address] [place] [address] PCP - General Family Medicine 07/08/24 Marianela Edwards DO [address] [facility] [place] [address] Family Medicine 07/08/24 Rn Imcu Relationship Specialty Start Date End Date Marianela Edwards DO [address] [place] [address] PCP - General Family Medicine 07/08/24 Marianela Edwards DO [address] [place] [address] Family Medicine 07/08/24 Rn Imcu Relationship Specialty Start Date End Date Marianela Edwards DO [address] [place] [address] PCP - General Family Medicine 07/08/24 Marianela Edwards DO [address] [facility] [place] [address] Family Medicine 07/08/24 Rn Imcu Relationship Specialty Start Date End Date Marianela Edwards DO [address] [facility] [place] [address] PCP - General Family Medicine 07/08/24 Marianela Edwards DO [address] [place] [address] Family Medicine 07/08/24 Team Status: Active Member Role Status Dates Dr. Marianela Edwards DO Primary Care Provider Active Team Status: Inactive Member Role Status Dates No Primary Care Physician Primary Care Provider Active Start: October 18, 2024 End: October 18, 2024 Dr. Brayden Underwood MD Attending Provider Active Start: October 18, 2024 End: October 18, 2024 Dr. Jaziel Lin DO Referring Provider Active Start: October 18, 2024 End: October 18, 2024 Team Status: Inactive Member Role Status Dates No Primary Care Physician Primary Care Provider Active Start: November 19, 2024 End: November 19, 2024 Dr. Brayden Underwood MD Attending Provider Active Start: November 19, 2024 End: November 19, 2024 Dr. Brayden Underwood MD Referring Provider Active Start: November 19, 2024 End: November 19, 2024 Team Status: Active Member Role Status Dates Dr. Isaac Araujo DO Emergency Provider Active Start: December 11, 2024 Dr. Marianela Edwards DO Primary Care Provider Active Start: December 11, 2024 Dr. Francis Bojorquez MD Attending Provider Active Start: December 11, 2024 Team Status: Active Member Role Status Dates Dr. Isaac Araujo DO Emergency Provider Active Start: December 11, 2024 Dr. Marianela Edwards DO Primary Care Provider Active Start: December 11, 2024 Dr. Francis Bojorquez MD Admit Provider Active Star t: December 11, 2024 Dr. Francis Bojorquez MD Attending Provider Active Start: December 11, 2024 Team Status: Inactive Member Role Status Dates Dr. Isaac Araujo DO Emergency Provider Active Start: December 11, 2024 End: December 13, 2024 Dr. Marianela Edwards DO Primary Care Provider Active Start: December 11, 2024 End: December 13, 2024 Dr. Francis Bojorquez MD Admit Provider Active Star t: December 11, 2024 End: December 13, 2024 Dr. Francis Bojorquez MD Other Provider Active Star t: December 11, 2024 End: December 13, 2024 Dr. Jean Paul Holt MD Other Provider Active St art: December 11, 2024 End: December 13, 2024 Dr. Sukhi Forbes DO Attending Provider Active Start: December 11, 2024 End: December 13, 2024 Team Status: Active Member Role Status Dates Dr. Marianela Edwards DO Primary Care Provider Active Start: December 11, 2024 Dr. Virginie Galarza MD Attending Provider Active Start: December 11, 2024 Team Status: Active Member Role Status Dates Dr. Isaac Araujo DO Emergency Provider Active Start: December 11, 2024 Dr. Marianela Edwards DO Primary Care Provider Active Start: December 11, 2024 Dr. Francis Bojorquez MD Admit Provider Active Star t: December 11, 2024 Dr. Francis Bojorquez MD Other Provider Active Star t: December 11, 2024 Dr. Jean Paul Holt MD Attending Provider Active Start: December 11, 2024 Dr. Jean Paul Holt MD Other Provider Active St art: December 11, 2024 Dr. Sukhi Forbes DO Other Provider Active Star t: December 11, 2024 Team Status: Active Member Role Status Dates Dr. Isaac Araujo DO Emergency Provider Active Start: December 12, 2024 Dr. Marianela Edwards DO Primary Care Provider Active Start: December 12, 2024 Dr. Francis Bojorquez MD Admit Provider Active Star t: December 12, 2024 Dr. Francis Bojorquez MD Other Provider Active Star t: December 12, 2024 Dr. Jean Paul Holt MD Other Provider Active St art: December 12, 2024 Dr. Sukhi Forbes DO Attending Provider Active Start: December 12, 2024 Dr. Sukhi Forbes DO Other Provider Active Star t: December 12, 2024 Team Status: Active Member Role Status Dates Dr. Isaac Araujo DO Emergency Provider Active Start: December 12, 2024 Dr. Marianela Edwards DO Primary Care Provider Active Start: December 12, 2024 Dr. Francis Bojorquez MD Admit Provider Active Star t: December 12, 2024 Dr. Francis Bojorquez MD Other Provider Active Star t: December 12, 2024 Dr. Jean Paul Holt MD Attending Provider Active Start: December 12, 2024 Dr. Jean Paul Holt MD Other Provider Active St art: December 12, 2024 Dr. Sukhi Forbes DO Other Provider Active Star t: December 12, 2024 Team Status: Active Member Role Status Dates Dr. Isaac Araujo DO Emergency Provider Active Start: December 13, 2024 Dr. Marianela Edwards DO Primary Care Provider Active Start: December 13, 2024 Dr. Francis Bojorquez MD Admit Provider Active Star t: December 13, 2024 Dr. Francis Bojorquez MD Other Provider Active Star t: December 13, 2024 Dr. Jean Paul Holt MD Other Provider Active St art: December 13, 2024 Dr. Sukhi Forbes DO Attending Provider Active Start: December 13, 2024 Dr. Sukhi Forbes DO Other Provider Active Star t: December 13, 2024 Team Status: Active Member Role Status Dates Dr. Isaac Arajuo DO Emergency Provider Active Start: December 13, 2024 Dr. Marianela Edwards DO Primary Care Provider Active Start: December 13, 2024 Dr. Francis Bojorquez MD Admit Provider Active Star t: December 13, 2024 Dr. Francis Bojorquez MD Other Provider Active Star t: December 13, 2024 Dr. Jean Paul Holt MD Attending Provider Active Start: December 13, 2024 Dr. Jean Paul Holt MD Other Provider Active St art: December 13, 2024 Dr. Sukhi Forbes DO Other Provider Active Star t: December 13, 2024 Rn Imcu Relationship Specialty Start Date End Date Marianela Edwards DO [address] [facility], [place] [id number] PCP - General Family Medicine 07/08/24 Marianela Edwards DO [address] [facility] [address] [facility] [place] [address] Family Medicine 07/08/24 Rn Imcu Relationship Specialty Start Date End Date Marianela Edwards DO [address] [facility] [place] [address] PCP - General Family Medicine 07/08/24 Marianela Edwards DO [address] [place] [address] Family Medicine 07/08/24 Rn Imcu Relationship Specialty Start Date End Date Marianela Edwards DO [address] [place] [address] PCP - General Family Medicine 07/08/24 Marianela Edwards DO [address] [place] [address] Family Medicine 07/08/24 Rn Imcu Relationship Specialty Start Date End Date Marianela Edwards DO [address] [place] [address] PCP - General Family Medicine 07/08/24 Marianela Edwards DO [address] [place] [address] Family Medicine 07/08/24 Rn Imcu Relationship Specialty Start Date End Date Marianela Edwards DO [address] [place] [address] PCP - General Family Medicine 07/08/24 Marianela Edwards DO [address] [place] [address] Family Medicine 07/08/24 Rn Imcu Relationship Specialty Start Date End Date Marianela Edwards DO [address] [place] [address] PCP - General Family Medicine 07/08/24 Marianela Edwards DO [address] [place] [address] Family Medicine 07/08/24 Sheba Barker, RN [address] [place] [address] Primary Care Poultry Debeaker 01/07/25 Melba Lanie [facility] Transitional Care Pharmacist Pharmacy 01/07/25 02/07/25 Team Status: Active Member Role/Relationship Status Dates Dr. Marianela Edwards DO Primary Care Provider Active Team Status: Inactive Member Role/Relationship Status Dates No Primary Care Physician Primary Care Provider Active Start: October 18, 2024 End: October 18, 2024 Dr. Brayden Underwood MD Attending Provider Active Start: October 18, 2024 End: October 18, 2024 Dr. Jaziel Lin DO Referring Provider Active Start: October 18, 2024 End: October 18, 2024 Team Status: Inactive Member Role/Relationship Status Dates No Primary Care Physician Primary Care Provider Active Start: November 19, 2024 End: November 19, 2024 Dr. Brayden Underwood MD Attending Provider Active Start: November 19, 2024 End: November 19, 2024 Dr. Brayden Underwood MD Referring Provider Active Start: November 19, 2024 End: November 19, 2024 Team Status: Active Member Role/Relationship Status Dates Dr. Isaac Araujo DO Emergency Provider Active Start: December 11, 2024 Dr. Marianela Edwards DO Primary Care Provider Active Start: December 11, 2024 Dr. Francis Bojorquez MD Attending Provider Active Start: December 11, 2024 Team Status: Inactive Member Role/Relationship Status Dates Dr. Isaac Araujo DO Emergency Provider Active Start: December 11, 2024 End: December 13, 2024 Dr. Marianela Edwards DO Primary Care Provider Active Start: December 11, 2024 End: December 13, 2024 Dr. Francis Bojorquez MD Admit Provider Active Star t: December 11, 2024 End: December 13, 2024 Dr. Francis Bojorquez MD Other Provider Active Star t: December 11, 2024 End: December 13, 2024 Dr. Jean Paul Holt MD Other Provider Active St art: December 11, 2024 End: December 13, 2024 Dr. Sukhi Forbes DO Attending Provider Active Start: December 11, 2024 End: December 13, 2024 Team Status: Active Member Role/Relationship Status Dates Dr. Marianela Edwards DO Primary Care Provider Active Start: December 11, 2024 Dr. Virginie Galarza MD Attending Provider Active Start: December 11, 2024 Team Status: Active Member Role/Relationship Status Dates Dr. Isaac Araujo DO Emergency Provider Active Start: December 11, 2024 Dr. Marianela Edwards DO Primary Care Provider Active Start: December 11, 2024 Dr. Francis Bojorquez MD Admit Provider Active Star t: December 11, 2024 Dr. Francis Bojorquez MD Other Provider Active Star t: December 11, 2024 Dr. Jean Paul Holt MD Attending Provider Active Start: December 11, 2024 Dr. Jean Paul Holt MD Other Provider Active St art: December 11, 2024 Dr. Sukhi Forbes DO Other Provider Active Star t: December 11, 2024 Team Status: Active Member Role/Relationship Status Dates Dr. Isaac Araujo DO Emergency Provider Active Start: December 12, 2024 Dr. Marianela Edwards DO Primary Care Provider Active Start: December 12, 2024 Dr. Francis Bojorquez MD Admit Provider Active Star t: December 12, 2024 Dr. Francis Bojorquez MD Other Provider Active Star t: December 12, 2024 Dr. Jean Paul Holt MD Other Provider Active St art: December 12, 2024 Dr. Sukhi Forbes DO Attending Provider Active Start: December 12, 2024 Dr. Sukhi Forbes DO Other Provider Active Star t: December 12, 2024 Team Status: Active Member Role/Relationship Status Dates Dr. Isaac Araujo DO Emergency Provider Active Start: December 12, 2024 Dr. Marianela Edwards DO Primary Care Provider Active Start: December 12, 2024 Dr. Francis Bojorquez MD Admit Provider Active Star t: December 12, 2024 Dr. Francis Bojorquez MD Other Provider Active Star t: December 12, 2024 Dr. Jean Paul Holt MD Attending Provider Active Start: December 12, 2024 Dr. Jean Paul Holt MD Other Provider Active St art: December 12, 2024 Dr. Sukhi Forbes DO Other Provider Active Star t: December 12, 2024 Team Status: Active Member Role/Relationship Status Dates Dr. Isaac Araujo DO Emergency Provider Active Start: December 13, 2024 Dr. Marianela Edwards DO Primary Care Provider Active Start: December 13, 2024 Dr. Francis Bojorquez MD Admit Provider Active Star t: December 13, 2024 Dr. Francis Bojorquez MD Other Provider Active Star t: December 13, 2024 Dr. Jean Paul Holt MD Other Provider Active St art: December 13, 2024 Dr. Sukhi Forbes DO Attending Provider Active Start: December 13, 2024 Dr. Sukhi Forbes DO Other Provider Active Star t: December 13, 2024 Team Status: Active Member Role/Relationship Status Dates Dr. Isaac Araujo DO Emergency Provider Active Start: December 13, 2024 Dr. Marianela Edwards DO Primary Care Provider Active Start: December 13, 2024 Dr. Francis Bojorquez MD Admit Provider Active Star t: December 13, 2024 Dr. Francis Bojorquez MD Other Provider Active Star t: December 13, 2024 Dr. Jean Paul Holt MD Attending Provider Active Start: December 13, 2024 Dr. Jean Paul Holt MD Other Provider Active St art: December 13, 2024 Dr. Sukhi Forbes DO Other Provider Active Star t: December 13, 2024 Team Status: Active Member Role/Relationship Status Dates Dr. Marianela Edwards DO Primary Care Provider Active Start: January 07, 2025 Dr. Edouard Durham MD Emergency Provider Active S tart: January 07, 2025 Dr. Hamilton Mehta DO Admit Provider Active Start: January 07, 2025 Dr. Hamilton Mehta DO Attending Provider Active Start: January 07, 2025 Rn Imcu Relationship Specialty Start Date End Date Marianela Edwards DO [address] [place] [address] PCP - General Family Medicine 07/08/24 Marianela Edwards DO [address] [place] [address] Family Medicine 07/08/24 Sheba Barker, RN [address] [place] [address] Primary Care Poultry Debeaker 7/7/25 [facility] 01/07/25 02/07/25 Rn Imcu Relationship Specialty Start Date End Date Marianela Edwards DO [address] [place] [address] PCP - General Family Medicine 07/08/24 Marianela Edwards DO [address] [place] [address] Family Medicine 07/08/24 Sheba Barker, RN [address] [place], [place] [id number] Primary Care Poultry Debeaker 01/07/[facility] 01/07/25 02/07/25 Rn Imcu Relationship Specialty Start Date End Date Marianela Edwards DO [address] [place] [address] PCP - General Family Medicine 07/08/24 Marianela Edwards DO [address] [place] [id number] Family Medicine 07/08/24 Goals (unrecognized section and content) Goals may be documented in a n alternate section FOR RECORDS PERTAINING TO PATIENTS WHO ARE [...] BE BASED ON THE PRIMARY CLINICAL RECORDS. [employer] [facility] provides no warranty or guarantee of the accuracy or completeness of information in this document.
--- OUTSIDE RECORDS SUMMARY | 2025-01-10 02:50 | XMS RPT_ITS | CCD ---
Author Organization [facility] Care Team Providers Care Linter Operator Name Role Phone MARIANELA EDWARDS Attending Unavailable SHEETS, MARIANELA Perez Primary Care Unavailable SELF Referring Unavailable Sheets DOMarianela Primary Care Provider Sheets DO, Marianela Perez Primary Care Provider Sheets DO, Marianela Perez Unavailable Chapito PARKINSON, Ana Unavailable [phone] PIETER LEA Admitting Unavailable ALYSIA ELAM Referring [...] Provider Dr. Isaac Araujo DO Emergency Provider [phone] Grace CLAY, Dr. Bear Primary Care Provider [phone] Francis Bojorquez MD Attending Provider Maryellen BRICENO, Dr. Blanco Admit Provider Dr. Francis Bojorquez MD Other Provider Dr. Jean Paul Holt MD Other Provider [phone] Sukhi Forbes DO Attending Provider Geovanni BRICENO, Dr. Rachel Attending Provider Dr. Jean Paul Holt MD Attending Provider Dr. Sukhi Forbes DO Other Provider [phone] JEAN PAUL HOLT Referring Unavail able [...] Brown Admitting Unavailable Spittle, Jaziel Consulting Unavailable Seregy, Isaias Attending Unavailable Tere Brown Consulting Unavailable [...] Unava ilable Mj PARKINSON, Sheba Casper Unavailable [phone] [facility], Lanie Unavailable Unavail able SHEETS, MARIANELA C [...] Provider Dr. Hamilton Mehta DO Admit Provider [phone] Dr. Hamilton Mehta DO Attending Provider Medications [...] Auto (Unsp spec) [#/Vol] 2.25 10*3/uL 0.83-4.51 [facility] Absolute neutrophil countOrd ered By: Edouard Durham on 01-07-2025 Neutrophils (Bld) [#/Vol] 5.2 10*3/uL 2.0-7.7 [facility] Anion gap in Serum or Plasma Ordered By: Edouard Durham on 01-07-2025 Anion gap [Moles/Vol] 15 mmol/L - [facility] Automated lymphocyte count a s percentage of total leukocytesOrdered By: Edouard Durham on 01-07-2025 Lymphocytes/100 WBC Auto (Unsp spec) 25.7 % - [facility] BUN/creatinine ratioOrdered By: Edouard Durham on 01-07-2025 Urea nitrogen/Creatinine [Mass ratio] 10.4 mg/mg 10- [facility] Basophil percentageOrdered B y: Edouard Durham on 01-07-2025 Basophils/100 WBC (Bld) 0.9 % 0-1 [facility] CNPTOUTREACHon 01-07-2025 CNPTOUTREACH Normal [facility] Carbon dioxide, total [Moles /volume] in Central venous bloodOrdered By: Edouard Durham on 01-07-2025 CO2 [Moles/Vol] 20.2 mmol/L Low 21.0-32.0 [facility] Chloride assayOrdered By: Shabbir Durham on 01-07-2025 Chloride [Moles/Vol] 104 mmol/L 98-108 [facility] Eosinophil percentageOrdered By: Edouard Durham on 01-07-2025 Eosinophils/100 WBC (Bld) 5.9 % High 0-5 [facility] Erythrocyte distribution wid th ratioOrdered By: Edouard Durham on 01-07-2025 Erythrocyte distribution width (RBC) [Ratio] 14.9 % High 11.6-14.6 [facility] Erythrocyte distribution wid th standard deviationOrdered By: Edouard Durham on 01-07-2025 Erythrocyte distribution width (RBC) [Ratio] 52.1 fl High 35.1-43.9 [facility] Glomerular filtration rate ( GFR) estimation/1.73 sq m using serum, plasma, or whole bOrdered By: Edouard Durham on 01-07-2025 GFR/1.73 sq M.predicted among non-blacks MDRD (S/P/Bld) [Vol rate/Area] 20 mL/min/{1.73_m2} Low >60 [facility] Comment on above: mL/min/1.73m2 CKD-EP I Creatinine Equation (2020) Hematocrit Auto (Bld) [Volum e fraction]Ordered By: Edouard Durham on 01-07-2025 Hematocrit (Bld) [Volume fraction] 37.9 % 37-47 [facility] Hemoglobin measurementOrdere d By: Edouard Durham on 01-07-2025 Hemoglobin (Bld) [Mass/Vol] 12.5 g/dL 12.0-15.0 [facility] Immature granulocytes/100 WB C Auto (Bld)Ordered By: Edouard Durham on 01-07-2025 Immature granulocytes/100 WBC (Bld) 0.500 % 0.0-0.9 [facility] Comment on above: IG% - Immature Granu locytes (promyelocytes, myelocytes and metamyelocytes) > 1% indicates that a LEFT SHIFT is Present. MCV (mean corpuscular volume ) determinationOrdered By: Edouard Durham on 01-07-2025 MCV (RBC) [Entitic vol] 95.0 fL 81-99 [facility] Mean corpuscular hemoglobin (MCH) determinationOrdered By: Edouard Durham on 01-07-2025 MCH (RBC) [Entitic mass] 31.3 pg 27.0-32.0 [facility] Mean corpuscular hemoglobin concentration (MCHC) determinationOrdered By: Edouard Durham on 01-07-2025 MCHC (RBC) [Mass/Vol] 33.0 g/dL 32-36 [facility] Mean platelet volume determi nationOrdered By: Edouard Durham on 01-07-2025 Platelet mean volume (Bld) [Entitic vol] 11.0 fL 6.2-12.0 [facility] Monocyte percentageOrdered B y: Edouard Durham on 01-07-2025 Monocytes/100 WBC (Bld) 7.7 % 0-10 [facility] Natriuretic peptide.B prohor fernando N-Terminal [Mass/volume] in Serum or PlasmaOrdered By: Edouard Durham on 01-07-2025 Natriuretic peptide.B prohormone N-Terminal [Mass/Vol] 33911 pg/mL High <900 [facility] Comment on above: Heart Failure Unlike ly: < 300 pg/mLHeart Failure Likely< 50 Years: > 450 pg/mL50-75 Years: > 900 pg/mL>75 Years: > 1800 pg/mL Neutrophil percentageOrdered By: Edouard Durham on 01-07-2025 Neutrophils/100 WBC (Bld) 59.3 % 47-70 [facility] Nucleated red blood cell per centageOrdered By: Edouard Durham on 01-07-2025 Nucleated RBC/100 WBC (Bld) [Ratio] 0 % 0-5 [facility] Platelet countOrdered By: Shabbir Durham on 01-07-2025 Platelets (Bld) [#/Vol] 254 10*3/uL 150-450 [facility] Potassium measurement (mass/ volume)Ordered By: Edouard Durham on 01-07-2025 Potassium (Unsp spec) [Mass/Vol] 4.5 mmol/L 3.3-5.1 [facility] RBC Auto (Bld) [#/Vol]Ordere d By: Edouard Durham on 01-07-2025 RBC (Bld) [#/Vol] 3.99 10*6/uL Low 4.2-5.4 [facility] Serum creatinine measurement (mass/volume)Ordered By: Edouard Durham on 01-07-2025 Creatinine [Mass/Vol] 2.51 mg/dL High 0.70-1.20 [facility] Serum glucose measurement (m ass/volume)Ordered By: Edouard Durham on 01-07-2025 Glucose [Mass/Vol] 119 mg/dL High 70-99 [facility] Serum or plasma calcium katerin urement (mass/volume)Ordered By: Edouard Durham on 01-07-2025 Calcium [Mass/Vol] 8.6 mg/dL 7.6-11.0 [facility] Serum or plasma urea nitroge n measurement (mass/volume)Ordered By: Edouard Durham on 01-07-2025 Urea nitrogen [Mass/Vol] 26 mg/dL High 4-19 [facility] Sodium levelOrdered By: Edouard Durham on 01-07-2025 Sodium [Moles/Vol] 139 mmol/L 133-145 [facility] Troponin T.cardiac [Mass/vol ume] in Serum or Plasma by High sensitivity methodOrdered By: Edouard Durham on 01-07-2025 Troponin T.cardiac High sensitivity method [Mass/Vol] 313 ng/L High <14 [facility] Comment on above: Critical Result(s) Chris SILVA at: 2041 by: SHANTHI Results read back by same. Troponin T.cardiac High sensitivity method [Mass/Vol] 274 ng/L High <14 [facility] Comment on above: Critical Result(s) Chris CHOWDHURY at: 1735 by: SHANTHI Results read back by same. Troponin T.cardiac High sensitivity method [Mass/Vol] 350 ng/L High <14 [facility] Comment on above: Delta: 1979 on 12/10-2345Critical Result(s) Called FEMI at: 1609 by: SHANTHI Results read back by same. White blood cell (WBC) count Ordered By: Edouard Durham on 01-07-2025 WBC (Bld) [#/Vol] 8.7 10*3/uL 4.4-11.0 [facility] CNPNon 01-06-2025 CNPN Normal [facility] CBC panel Auto (Bld)on 01-04 Erythrocyte distribution width (RBC) [Ratio] 14.5 % Normal 11.5-15.0 [facility] Comment on above: Order Comment: Speci men Type: BLOOD SPECIMENOrdering Facility: [facility] Address: [address] [place] [address] Performed By: #### 5 8410-2 ####[facility] LABIA [id number] [place] [address] [place] Hematocrit (Bld) [Volume fraction] 42.7 % Normal 36.0-46.0 [facility] Comment on above: Order Comment: Speci men Type: BLOOD SPECIMENOrdering Facility: [facility] Address: [address] [place] [address] Performed By: #### 5 8410-2 ####[facility] LABIA [id number] [place] [address] [place] Hemoglobin (Bld) [Mass/Vol] 14.0 g/dL Normal 11.5-15.5 [facility] Comment on above: Order Comment: Speci men Type: BLOOD SPECIMENOrdering Facility: [facility] Address: [address] [place] [address] Performed By: #### 5 8410-2 ####[facility] LABIA [id number] [place] [address] [place] MCH (RBC) [Entitic mass] 31.0 pg Normal 26.0-34.0 [facility] Comment on above: Order Comment: Speci men Type: BLOOD SPECIMENOrdering Facility: [facility] Address: [address] [place] [address] Performed By: #### 5 8410-2 ####[facility] LABCLIA [id number] [place] [address] [place] MCHC (RBC) [Mass/Vol] 32.8 g/dL Normal 30.5-36.0 [facility] Comment on above: Order Comment: Speci men Type: BLOOD SPECIMENOrdering Facility: [facility] Address: [address] [place] [address] Performed By: #### 5 8410-2 ####[facility] LABIA [id number] [place] [address] [place] MCV (RBC) [Entitic vol] 94.5 fL Normal 80.0-100.0 [facility] Comment on above: Order Comment: Speci men Type: BLOOD SPECIMENOrdering Facility: [facility] Address: [address] [place] [address] Performed By: #### 5 8410-2 ####[facility] LABIA [id number] [place] [address] [place] Nucleated RBC (Bld) [#/Vol] 10*3/uL Normal <0.01 [facility] Comment on above: Order Comment: Speci men Type: BLOOD SPECIMENOrdering Facility: [facility] Address: [address] [place] [address] Performed By: #### 5 8410-2 ####[facility] LABIA [id number] [place] [address] [place] Platelet mean volume (Bld) [Entitic vol] 10.6 fL Normal 9.0-12.7 [facility] Comment on above: Order Comment: Speci men Type: BLOOD SPECIMENOrdering Facility: [facility] Address: [address] [place] [address] Performed By: #### 5 8410-2 ####[facility] LABIA [id number] [place] [address] [place] Platelets (Bld) [#/Vol] 279 10*3/uL Normal 150-400 [facility] Comment on above: Order Comment: Speci men Type: BLOOD SPECIMENOrdering Facility: [facility] Address: [address] [place] [address] Performed By: #### 5 8410-2 ####[facility] LABCLIA [id number] [place] [address] [place] RBC (Bld) [#/Vol] 4.52 10*6/uL Normal 3.90-5.20 [facility] Comment on above: Order Comment: Speci men Type: BLOOD SPECIMENOrdering Facility: [facility] Address: [address] [place] [address] Performed By: #### 5 8410-2 ####[facility] LABCLIA [id number] [place] [address] [place] WBC (Bld) [#/Vol] 9.88 10*3/uL Normal 3.70-11.00 [facility] Comment on above: Order Comment: Speci men Type: BLOOD SPECIMENOrdering Facility: [facility] Address: [address] [place] [address] Performed By: #### 5 8410-2 ####[facility] LABCLIA [id number] [place] [address] [place] CNDSon 01-04-2025 CNDS Normal [facility] CONSULT PROGon 01-04-2025 CONSULT PROG Normal [facility] Comprehensive metabolic 2000 panelon 01-04-2025 Albumin [Mass/Vol] 3.6 g/dL Low 3.9-4.9 [facility] Comment on above: Order Comment: Speci men Type: BLOOD SPECIMENOrdering Facility: [facility] Address: [address] [place] [address] Performed By: #### 1 9123-9, 43851-8 ####[facility] LABCLIA [id number] [address] [place] [address] [place] ALP [Catalytic activity/Vol] 91 U/L Normal 34-123 [facility] Comment on above: Order Comment: Speci men Type: BLOOD SPECIMENOrdering Facility: [facility] Address: [address] [place] [address] Performed By: #### 1 9123-9, 23426-9 ####[facility] LABCLIA [id number] [address] [place] [address] [place] ALT [Catalytic activity/Vol] 17 U/L Normal 7-38 [facility] Comment on above: Order Comment: Speci men Type: BLOOD SPECIMENOrdering Facility: [facility] Address: [address] [place] [address] Performed By: #### 1 9123-9, ####[facility] LABCLIA [id number] [address], [facility] [place] Anion gap [Moles/Vol] 12 mmol/L Normal 8-15 [facility] Comment on above: Order Comment: Speci men Type: BLOOD SPECIMENOrdering Facility: [facility] Address: [address] [place] [address] Performed By: #### 1 9123-9, 13750-8 ####[facility] LABCLIA [id number] [address], [facility]95 [place] AST [Catalytic activity/Vol] 20 U/L Normal 13-35 [facility] Comment on above: Order Comment: Speci men Type: BLOOD SPECIMENOrdering Facility: [facility] Address: [address] [place] [address] Performed By: #### 1 9123-9, 33020-3 ####[facility] LABCLIA [id number] [address] [place] [address] [place] Bilirubin [Mass/Vol] 0.2 mg/dL Normal 0.2-1.3 [facility] Comment on above: Order Comment: Speci men Type: BLOOD SPECIMENOrdering Facility: [facility] Address: [address] [place] [address] Performed By: #### 1 23-9, ####[facility] LABCLIA [id number] [address] [address] [place] Calcium [Mass/Vol] 9.6 mg/dL Normal 8.5-10.2 [facility] Comment on above: Order Comment: Speci men Type: BLOOD SPECIMENOrdering Facility: [facility] Address: [address] [place], [place] [address] Performed By: #### 1 9122-9, ####[facility] LABCLIA [id number] [address] [address] [place] Chloride [Moles/Vol] 104 mmol/L Normal 98-107 [facility] Comment on above: Order Comment: Speci men Type: BLOOD SPECIMENOrdering Facility: [facility] Address: [address] [place], [place] [address] Performed By: #### 1 239, ####[facility] LABCLIA [id number] [address] [address] [place] CO2 [Moles/Vol] 23 mmol/L Normal 22-30 [facility] Comment on above: Order Comment: Speci men Type: BLOOD SPECIMENOrdering Facility: [facility] Address: [address] [place] [address] Performed By: #### 1 23-9, 92731-0 ####[facility] LABCLIA [id number] [address] [address] [place] Creatinine [Mass/Vol] 2.22 mg/dL High 0.58-0.96 [facility] Comment on above: Order Comment: Speci men Type: BLOOD SPECIMENOrdering Facility: [facility] Address: [address] [place] [address] Performed By: #### 1 23-9, 12517-9 ####[facility] LABCLIA [id number] [place] [address] [place] Creatinine and Glomerular filtration rate.predicted panel (S/P/Bld) 24 mL/min/1.73m??? Low >=60 [facility] Comment on above: Order Comment: Marika hammonds Type: BLOOD SPECIMENOrdering Facility: [facility] Address: [address] [place] [address] Result Comment: Maru mated Glomerular Filtration Rate [...] actual GFR. Performed By: #### 1 9123-9, 99536-2 ####[facility] LABIA [id number] [place] [address] [place] Glucose [Mass/Vol] 117 mg/dL High 74-99 [facility] Comment on above: Order Comment: Marika hammonds Type: BLOOD SPECIMENOrdering Facility: [facility] Address: [address] [place] [address] Result Comment: The [place] [employer] (ADA) provides guidance for cutoff [...] Standards of Medical Care in Diabetes 2016, [place] [employer]. Diabetes Care. 2016.39(Suppl 1). Performed By: #### 1 9123-9, 58670-7 ####[facility] LABIA [id number] [address] [address] [place] Potassium [Moles/Vol] 5.1 mmol/L Normal 3.7-5.1 [facility] Comment on above: Order Comment: Speci men Type: BLOOD SPECIMENOrdering Facility: [facility] Address: [address] [place], [place] [address] Performed By: #### 1 9123-9, 24896-3 ####[facility] LABIA [id number] [address] [address] [place] Protein [Mass/Vol] 6.6 g/dL Normal 6.3-8.0 [facility] Comment on above: Order Comment: Speci men Type: BLOOD SPECIMENOrdering Facility: [facility] Address: [address] [place], [place] [address] Performed By: #### 1 9123-9, 29449-7 ####[facility] [id number] [address] [address] [place] Sodium [Moles/Vol] 139 mmol/L Normal 136-144 [facility] Comment on above: Order Comment: Speci men Type: BLOOD SPECIMENOrdering Facility: [facility] Address: [address] [place], [place] [address] Performed By: #### 1 9123-9, 40465-7 ####[facility] [id number] [address] [address] [place] Urea nitrogen [Mass/Vol] 33 mg/dL High 7-21 [facility] Comment on above: Order Comment: Speci men Type: BLOOD SPECIMENOrdering Facility: [facility] Address: [address] [place], [place] [address] Performed By: #### 1 9123-9, 75432-2 ####[facility] [id number] [address] [address] [place] Magnesium SerPl-mCncon 01-04 Magnesium [Mass/Vol] 2.6 mg/dL High 1.7-2.3 [facility] Comment on above: Order Comment: Speci men Type: BLOOD SPECIMENOrdering Facility: [facility] Address: [address] [place] [address] Performed By: #### 1 9123-9, 40587-2 ####[facility] LABIA [id number] [place] [id number] [place] ANES POSTPROC EVALon 025 [address]ES POSTPROC EVAL Normal [facility] ANES PRE-OPon 01-03-2025 ANES PRE-OP Normal [facility] CASE MANAGEMon 01-03-2025 CASE MANAGEM Normal [facility] CBC panel Auto (Bld)on 01-03 Erythrocyte distribution width (RBC) [Ratio] 14.7 % Normal 11.5-15.0 [facility] Comment on above: Order Comment: Speci men Type: BLOOD SPECIMENOrdering Facility: [facility] Address: [address] [place] [address] Performed By: #### 5 8410-2 ####[facility] LABIA [id number] [place] [id number] [place] Hematocrit (Bld) [Volume fraction] 46.8 % High 36.0-46.0 [facility] Comment on above: Order Comment: Speci men Type: BLOOD SPECIMENOrdering Facility: [facility] Address: [address] [place] [address] Performed By: #### 5 8410-2 ####[facility] LABIA [id number] [place] [id number] [place] Hemoglobin (Bld) [Mass/Vol] 14.5 g/dL Normal 11.5-15.5 [facility] Comment on above: Order Comment: Speci men Type: BLOOD SPECIMENOrdering Facility: [facility] Address: [address] [place] [address] Performed By: #### 5 8410-2 ####[facility] LABIA [id number] [place] [address] [place] MCH (RBC) [Entitic mass] 30.7 pg Normal 26.0-34.0 [facility] Comment on above: Order Comment: Speci men Type: BLOOD SPECIMENOrdering Facility: [facility] Address: [address] [place] [address] Performed By: #### 5 8410-2 ####[facility] LABIA [id number] [place] [address] [place] MCHC (RBC) [Mass/Vol] 31.0 g/dL Normal 30.5-36.0 [facility] Comment on above: Order Comment: Speci men Type: BLOOD SPECIMENOrdering Facility: [facility] Address: [address] [place] [address] Performed By: #### 5 8410-2 ####[facility] [id number] [address] [place] MCV (RBC) [Entitic vol] 99.2 fL Normal 80.0-100.0 [facility] Comment on above: Order Comment: Speci men Type: BLOOD SPECIMENOrdering Facility: [facility] Address: [address] [place] [address] Performed By: #### 5 8410-2 ####[facility] [id number] [address] [place] Nucleated RBC (Bld) [#/Vol] 10*3/uL Normal <0.01 [facility] Comment on above: Order Comment: Speci men Type: BLOOD SPECIMENOrdering Facility: [facility] Address: [address] [place] [address] Performed By: #### 5 8410-2 ####[facility] [id number] [address] [id number] [address] [place] Platelet mean volume (Bld) [Entitic vol] 10.4 fL Normal 9.0-12.7 [facility] Comment on above: Order Comment: Speci men Type: BLOOD SPECIMENOrdering Facility: [facility] Address: [address] [place] [address] Performed By: #### 5 8410-2 ####[facility] LABCLIA [id number] [place] [address] [place] Platelets (Bld) [#/Vol] 287 10*3/uL Normal 150-400 [facility] Comment on above: Order Comment: Speci men Type: BLOOD SPECIMENOrdering Facility: [facility] Address: [address] [place] [address] Performed By: #### 5 8410-2 ####[facility] LABCLIA [id number] [place] [address] [place] RBC (Bld) [#/Vol] 4.72 10*6/uL Normal 3.90-5.20 [facility] Comment on above: Order Comment: Speci men Type: BLOOD SPECIMENOrdering Facility: [facility] Address: [address] [place], [place] [address] Performed By: #### 5 8410-2 ####[facility] LABCLIA [id number] [address] [address] [place] WBC (Bld) [#/Vol] 7.65 10*3/uL Normal 3.70-11.00 [facility] Comment on above: Order Comment: Speci men Type: BLOOD SPECIMENOrdering Facility: [facility] Address: [address] [place] [address] Performed By: #### 5 8410-2 ####[facility] LABCLIA [id number] [address] [address] [place] Comprehensive metabolic 2000 panelon 01-03-2025 Albumin [Mass/Vol] 3.8 g/dL Low 3.9-4.9 [facility] Comment on above: Order Comment: Speci men Type: BLOOD SPECIMENOrdering Facility: [facility] Address: [address] [place] [address] Performed By: #### 2 4323-8, ####[facility] LABCLIA [id number] [address] [place] [address] [place] ALP [Catalytic activity/Vol] 79 U/L Normal 34-123 [facility] Comment on above: Order Comment: Speci men Type: BLOOD SPECIMENOrdering Facility: [facility] Address: [address] [place], [place] [address] Performed By: #### 2 3-8, ####[facility] LABCLIA [id number] [address] [place] [address] [place] ALT [Catalytic activity/Vol] 19 U/L Normal 7-38 [facility] Comment on above: Order Comment: Speci men Type: BLOOD SPECIMENOrdering Facility: [facility] Address: [address] [place], [place] [address] Performed By: #### 2 4323-8, ####[facility] LABCLIA [id number] [address] [address] [place] Anion gap [Moles/Vol] 13 mmol/L Normal 8-15 [facility] Comment on above: Order Comment: Speci men Type: BLOOD SPECIMENOrdering Facility: [facility] Address: [address] [place] [id number] Performed By: #### 2 4323-8, ####[facility] LABCLIA [id number] [address] [address] [place] AST [Catalytic activity/Vol] 20 U/L Normal 13-35 [facility] Comment on above: Order Comment: Speci men Type: BLOOD SPECIMENOrdering Facility: [facility] Address: [address] [place], [place] [address] Performed By: #### 2 432-8, ####[facility] LABCLIA [id number] [facility] [address] [place] [address] [place] Bilirubin [Mass/Vol] 0.3 mg/dL Normal 0.2-1.3 [facility] Comment on above: Order Comment: Speci men Type: BLOOD SPECIMENOrdering Facility: [facility] Address: [address] [place] [address] Performed By: #### 2 4328, ####[facility] LABCLIA [id number] [address] [place] [address] [place] Calcium [Mass/Vol] 9.9 mg/dL Normal 8.5-10.2 [facility] Comment on above: Order Comment: Speci men Type: BLOOD SPECIMENOrdering Facility: [facility] Address: [address] [place] [address] Performed By: #### 2 4328, ####[facility] LABCLIA [id number] [address] [place] [address] [place] Chloride [Moles/Vol] 99 mmol/L Normal 98-107 [facility] Comment on above: Order Comment: Speci men Type: BLOOD SPECIMENOrdering Facility: [facility] Address: [address] [place] [address] Performed By: #### 2 8, ####[facility] LABCLIA [id number] [facility] [place] [facility] [address] [place] [address] [place] CO2 [Moles/Vol] 25 mmol/L Normal 22-30 [facility] Comment on above: Order Comment: Speci men Type: BLOOD SPECIMENOrdering Facility: [facility] Address: [address] [place], [place] [address] Performed By: #### 2 4323-8, ####[facility] LABCLIA [id number] [address] [place] [address] [place] Creatinine [Mass/Vol] 2.32 mg/dL High 0.58-0.96 [facility] Comment on above: Order Comment: Marika hammonds Type: BLOOD SPECIMENOrdering Facility: [facility] Address: [address] [place] [phone] Performed By: #### 2 4323-8, ####[facility] LABCLIA [id number] [place] [address] [place] Creatinine and Glomerular filtration rate.predicted panel (S/P/Bld) 22 mL/min/1.73m??? Low >=60 [facility] Comment on above: Order Comment: Marika hammonds Type: BLOOD SPECIMENOrdering Facility: [facility] Address: [address] [place] [address] Result Comment: Maru mated Glomerular Filtration Rate [...] actual GFR. Performed By: #### 2 4323-8, ####[facility] LABCLIA [id number] [place] [id number] [place] Glucose [Mass/Vol] 98 mg/dL Normal 74-99 [facility] Comment on above: Order Comment: Marika hammonds Type: BLOOD SPECIMENOrdering Facility: [facility] Address: [address] [place] [address] Result Comment: The [place] [employer] (ADA) provides guidance for cutoff [...] Standards of Medical Care in Diabetes 2016, [place] [employer]. Diabetes Care. 2016.39(Suppl 1). Performed By: #### 2 4323-02, ####[facility] LABCLIA [id number] [address] [address] [place] Potassium [Moles/Vol] 4.7 mmol/L Normal 3.7-5.1 [facility] Comment on above: Order Comment: Speci men Type: BLOOD SPECIMENOrdering Facility: [facility] Address: [address] [place] [address] Performed By: #### 2 4323-02, ####[facility] LABCLIA [id number] [address] [address] [place] Protein [Mass/Vol] 7.1 g/dL Normal 6.3-8.0 [facility] Comment on above: Order Comment: Speci men Type: BLOOD SPECIMENOrdering Facility: [facility] Address: [address] [place] [address] Performed By: #### 2 4323-02, ####[facility] LABIA [id number] [address] [address] [place] Sodium [Moles/Vol] 137 mmol/L Normal 136-144 [facility] Comment on above: Order Comment: Speci men Type: BLOOD SPECIMENOrdering Facility: [facility] Address: [address] [place] [address] Performed By: #### 2 4323-02, ####[facility] LABCLIA [id number] [address] [address] [place] Urea nitrogen [Mass/Vol] 28 mg/dL High 7-21 [facility] Comment on above: Order Comment: Speci men Type: BLOOD SPECIMENOrdering Facility: [facility] Address: [address] [place] [address] Performed By: #### 2 4323-8, 11617-3 ####[facility] LABCLIA [id number] [place] [address] [place] Magnesium SerPl-mCncon 01-03 Magnesium [Mass/Vol] 2.4 mg/dL High 1.7-2.3 [facility] Comment on above: Order Comment: Speci men Type: BLOOD SPECIMENOrdering Facility: [facility] Address: [address] [place] [address] Performed By: #### 2 4323-8, 87874-3 ####[facility] LABCLIA [id number] [place] [address] [place] NUTRITIONon 01-03-2025 NUTRITION Normal [facility] PT EDon 01-03-2025 PT ED Normal [facility] TYPE + SCREENon 01-03-2025 ABO O Normal [facility] Comment on above: Order Comment: Speci men Type: BLOOD SPECIMENOrdering Facility: [facility] Address: [address] [place] [address] Performed By: #### T SCR ####[facility] BLOOD BANKCLIA [id number] [place] [address] [place] Rh Nom (Bld) Positive Normal [facility] Comment on above: Order Comment: Speci men Type: BLOOD SPECIMENOrdering Facility: [facility] Address: [address] [place] [address] Performed By: #### T SCR ####[facility] BLOOD BANKCLIA [id number] [place] [address] [place] TYPE AND SCREEN EXPIRATION 01/06/2025 23:59 Normal [facility] Comment on above: Order Comment: Speci men Type: BLOOD SPECIMENOrdering Facility: [facility] Address: [address] [place] [address] Performed By: #### T SCR ####[facility] BLOOD BANKIA [id number] [address] [address] [place] XR CHEST 2V FRONTAL/LATon XR CHEST 2V FRONTAL/LAT Normal [facility] CARD CATH INTERVENTon 2024 CARD CATH INTERVENT Normal [facility] CBC panel Auto (Bld)on 01-02 Erythrocyte distribution width (RBC) [Ratio] 14.5 % Normal 11.5-15.0 [facility] Comment on above: Order Comment: Speci men Type: BLOOD SPECIMENOrdering Facility: [facility] Address: [address] [place] [address] Performed By: #### 5 8410-2 ####[facility] [id number] [place] [address] [place] Hematocrit (Bld) [Volume fraction] 41.9 % Normal 36.0-46.0 [facility] Comment on above: Order Comment: Speci men Type: BLOOD SPECIMENOrdering Facility: [facility] Address: [address] [place] [address] Performed By: #### 5 8410-2 ####[facility] [id number] [place] [address] [place] Hemoglobin (Bld) [Mass/Vol] 14.1 g/dL Normal 11.5-15.5 [facility] Comment on above: Order Comment: Speci men Type: BLOOD SPECIMENOrdering Facility: [facility] Address: [address] [place] [address] Performed By: #### 5 8410-2 ####[facility] [id number] [place] [id number] [place] MCH (RBC) [Entitic mass] 31.3 pg Normal 26.0-34.0 [facility] Comment on above: Order Comment: Speci men Type: BLOOD SPECIMENOrdering Facility: [facility] Address: [address] [place] [address] Performed By: #### 5 8410-2 ####[facility] LABCLIA [id number] [address] [place] MCHC (RBC) [Mass/Vol] 33.7 g/dL Normal 30.5-36.0 [facility] Comment on above: Order Comment: Speci men Type: BLOOD SPECIMENOrdering Facility: [facility] Address: [address] [place] [address] Performed By: #### 5 8410-2 ####[facility] LABIA [id number] [place] [address] [place] MCV (RBC) [Entitic vol] 92.9 fL Normal 80.0-100.0 [facility] Comment on above: Order Comment: Speci men Type: BLOOD SPECIMENOrdering Facility: [facility] Address: [address] [place] [address] Performed By: #### 5 8410-2 ####[facility] LABIA [id number] [place] [address] [place] Nucleated RBC (Bld) [#/Vol] 10*3/uL Normal <0.01 [facility] Comment on above: Order Comment: Speci men Type: BLOOD SPECIMENOrdering Facility: [facility] Address: [address] [place] [address] Performed By: #### 5 8410-2 ####[facility] LABIA [id number] [place] [address] [place] Platelet mean volume (Bld) [Entitic vol] 11.6 fL Normal 9.0-12.7 [facility] Comment on above: Order Comment: Speci men Type: BLOOD SPECIMENOrdering Facility: [facility] Address: [address] [place] [address] Performed By: #### 5 8410-2 ####[facility] LABIA [id number] [place] [id number] [place] Platelets (Bld) [#/Vol] 308 10*3/uL Normal 150-400 [facility] Comment on above: Order Comment: Speci men Type: BLOOD SPECIMENOrdering Facility: [facility] Address: [address] [place] [address] Performed By: #### 5 8410-2 ####[facility] LABCLIA [id number] [place] [address] [place] RBC (Bld) [#/Vol] 4.51 10*6/uL Normal 3.90-5.20 [facility] Comment on above: Order Comment: Speci men Type: BLOOD SPECIMENOrdering Facility: [facility] Address: [address] [place] [address] Performed By: #### 5 8410-2 ####[facility] LABCLIA [id number] [place] [address] [place] WBC (Bld) [#/Vol] 8.50 10*3/uL Normal 3.70-11.00 [facility] Comment on above: Order Comment: Speci men Type: BLOOD SPECIMENOrdering Facility: [facility] Address: [address] [place] [address] Performed By: #### 5 8410-2 ####[facility] LABCLIA [id number] [place] [address] [place] CONSULT PROGon 01-02-2025 CONSULT PROG Normal [facility] CONSULT PROG Normal [facility] Comprehensive metabolic 2000 panelon 01-02-2025 Albumin [Mass/Vol] 3.7 g/dL Low 3.9-4.9 [facility] Comment on above: Order Comment: Speci men Type: BLOOD SPECIMENOrdering Facility: [facility] Address: [address] [place] [address] Performed By: #### 1 9123-9, 3016-3, 51595-9 ####[facility] LABCLIA [id number] [place] [id number] [place] ALP [Catalytic activity/Vol] 80 U/L Normal 34-123 [facility] Comment on above: Order Comment: Speci men Type: BLOOD SPECIMENOrdering Facility: [facility] Address: [address] [place] [address] Performed By: #### 1 9123-9, 6-3, 39348-0 ####[facility] LABCLIA [id number] [place] [id number] [place] ALT [Catalytic activity/Vol] 17 U/L Normal 7-38 [facility] Comment on above: Order Comment: Speci men Type: BLOOD SPECIMENOrdering Facility: [facility] Address: [address] [place] [address] Performed By: #### 1 9123-9, 3015-3, 19895-8 ####[facility] LABIA [id number] [place] [address] [place] Anion gap [Moles/Vol] 15 mmol/L Normal 8-15 [facility] Comment on above: Order Comment: Speci men Type: BLOOD SPECIMENOrdering Facility: [facility] Address: [address] [place] [address] Performed By: #### 1 9123-9, 3015-3, 46371-4 ####[facility] LABIA [id number] [place] [address] [place] AST [Catalytic activity/Vol] 17 U/L Normal 13-35 [facility] Comment on above: Order Comment: Speci men Type: BLOOD SPECIMENOrdering Facility: [facility] Address: [address] [place] [address] Performed By: #### 1 9123-9, 6-3, 67074-0 ####[facility] LABCLIA [id number] [address] [address] [place] Bilirubin [Mass/Vol] 0.3 mg/dL Normal 0.2-1.3 [facility] Comment on above: Order Comment: Speci men Type: BLOOD SPECIMENOrdering Facility: [facility] Address: [address] [place], [place] [address] Performed By: #### 1 9123-9, 3, 86505-6 ####[facility] LABCLIA [id number] [facility] [place] [facility] [address] [address] [place] Calcium [Mass/Vol] 9.4 mg/dL Normal 8.5-10.2 [facility] Comment on above: Order Comment: Speci men Type: BLOOD SPECIMENOrdering Facility: [facility] Address: [address] [place], [place] [address] Performed By: #### 1 9123-9, 3, ####[facility] LABCLIA [id number] [facility] [place] [facility] [address] [address] [place] Chloride [Moles/Vol] 104 mmol/L Normal 98-107 [facility] Comment on above: Order Comment: Speci men Type: BLOOD SPECIMENOrdering Facility: [facility] Address: [address] [place], [place] [address] Performed By: #### 1 9123-9, 3, ####[facility] LABCLIA [id number] [facility] [place] [facility] [address] [address] [place] CO2 [Moles/Vol] 19 mmol/L Low 22-30 [facility] Comment on above: Order Comment: Speci men Type: BLOOD SPECIMENOrdering Facility: [facility] Address: [address] [place] [address] Performed By: #### 1 9123-9, 3, 92724-6 ####[facility] LABCLIA [id number] [facility] [place] [facility] [address] [address] [place] Creatinine [Mass/Vol] 2.26 mg/dL High 0.58-0.96 [facility] Comment on above: Order Comment: Marika hammonds Type: BLOOD SPECIMENOrdering Facility: [facility] Address: [address] [place] [address] Performed By: #### 1 9123-9, 3016-3, 07970-4 ####[facility] LABCLIA [id number] [place] [id number] [place] Creatinine and Glomerular filtration rate.predicted panel (S/P/Bld) 23 mL/min/1.73m??? Low >=60 [facility] Comment on above: Order Comment: Marika hammonds Type: BLOOD SPECIMENOrdering Facility: [facility] Address: [address] [place] [address] Result Comment: Maru mated Glomerular Filtration Rate [...] GFR. Performed By: #### 1 9123-9, 6-3, 11782-5 ####[facility] LABIA [id number] [place] [id number] [place] Glucose [Mass/Vol] 115 mg/dL High 74-99 [facility] Comment on above: Order Comment: Marika hammonds Type: BLOOD SPECIMENOrdering Facility: [facility] Address: [address] [place] [address] Result Comment: The [place] [employer] (ADA) provides guidance for cutoff [...] Standards of Medical Care in Diabetes 2016, [place] [employer]. Diabetes Care. 2016.39(Suppl 1). Performed By: #### 1 9123-9, 3015-3, 45167-6 ####[facility] LABCLIA [id number] [address] [address] [place] Potassium [Moles/Vol] 4.1 mmol/L Normal 3.7-5.1 [facility] Comment on above: Order Comment: Speci men Type: BLOOD SPECIMENOrdering Facility: [facility] Address: [address] [place], [place] [address] Performed By: #### 1 9123-9, 3, ####[facility] LABCLIA [id number] [address] [address] [place] Protein [Mass/Vol] 6.8 g/dL Normal 6.3-8.0 [facility] Comment on above: Order Comment: Speci men Type: BLOOD SPECIMENOrdering Facility: [facility] Address: [address] [place], [place] [address] Performed By: #### 1 9123-9, 3, ####[facility] LABCLIA [id number] [address] [address] [place] Sodium [Moles/Vol] 138 mmol/L Normal 136-144 [facility] Comment on above: Order Comment: Speci men Type: BLOOD SPECIMENOrdering Facility: [facility] Address: [address] [place], [place] [address] Performed By: #### 1 9123-9, 3, 53626-1 ####[facility] LABCLIA [id number] [address] [address] [place] Urea nitrogen [Mass/Vol] 30 mg/dL High 7-21 [facility] Comment on above: Order Comment: Speci men Type: BLOOD SPECIMENOrdering Facility: [facility] Address: [address] [place] [address] Performed By: #### 1 9123-9, 3016-3, 76854-0 ####[facility] LABCLIA [id number] [place] [id number] [place] Magnesium SerPl-mCncon 01-02 Magnesium [Mass/Vol] 2.2 mg/dL Normal 1.7-2.3 [facility] Comment on above: Order Comment: Speci men Type: BLOOD SPECIMENOrdering Facility: [facility] Address: [address] [place] [address] Performed By: #### 1 9123-9, 3015-3, 34505-3 ####[facility] LABCLIA [id number] [address] [place] PT EDon 01-02-2025 PT ED Normal [facility] TSH SerPl-aCncon 01-02-2025 TSH Qn 1.990 m[IU]/L Normal 0.270-4.200 [facility] Comment on above: Order Comment: Speci men Type: BLOOD SPECIMENOrdering Facility: [facility] Address: [address] [place] [address] Performed By: #### 1 9123-9, 3015-3, 07024-5 ####[facility] LABCLIA [id number] [place] [address] [place] CBC panel Auto (Bld)on 01-01 Erythrocyte distribution width (RBC) [Ratio] 14.6 % Normal 11.5-15.0 [facility] Comment on above: Order Comment: Speci men Type: BLOOD SPECIMENOrdering Facility: [facility] Address: [address] [place] [address] [place] [address] Performed By: #### 5 8410-2 ####[facility] LABCLIA [id number] [place] [address] [place] Hematocrit (Bld) [Volume fraction] 41.4 % Normal 36.0-46.0 [facility] Comment on above: Order Comment: Speci men Type: BLOOD SPECIMENOrdering Facility: [facility] Address: [address] [place] [address] Performed By: #### 5 8410-2 ####[facility] LABIA [id number] [place] [address] [place] Hemoglobin (Bld) [Mass/Vol] 13.3 g/dL Normal 11.5-15.5 [facility] Comment on above: Order Comment: Speci men Type: BLOOD SPECIMENOrdering Facility: [facility] Address: [address] [place] [address] Performed By: #### 5 8410-2 ####[facility] [id number] [place] [address] [place] MCH (RBC) [Entitic mass] 30.5 pg Normal 26.0-34.0 [facility] Comment on above: Order Comment: Speci men Type: BLOOD SPECIMENOrdering Facility: [facility] Address: [address] [place] [address] Performed By: #### 5 8410-2 ####[facility] [id number] [place] [address] [place] MCHC (RBC) [Mass/Vol] 32.1 g/dL Normal 30.5-36.0 [facility] Comment on above: Order Comment: Speci men Type: BLOOD SPECIMENOrdering Facility: [facility] Address: [address] [place] [address] Performed By: #### 5 8410-2 ####[facility] LABIA [id number] [place] [address] [place] MCV (RBC) [Entitic vol] 95.0 fL Normal 80.0-100.0 [facility] Comment on above: Order Comment: Speci men Type: BLOOD SPECIMENOrdering Facility: [facility] Address: [address] [place] [address] Performed By: #### 5 8410-2 ####[facility] LABCLIA [id number] [place] [address] [place] Nucleated RBC (Bld) [#/Vol] 10*3/uL Normal <0.01 [facility] Comment on above: Order Comment: Speci men Type: BLOOD SPECIMENOrdering Facility: [facility] Address: [address] [place] [address] Performed By: #### 5 8410-2 ####[facility] LABIA [id number] [place] [address] [place] Platelet mean volume (Bld) [Entitic vol] 11.0 fL Normal 9.0-12.7 [facility] Comment on above: Order Comment: Speci men Type: BLOOD SPECIMENOrdering Facility: [facility] Address: [address] [place] [address] Performed By: #### 5 8410-2 ####[facility] LABIA [id number] [place] [address] [place] Platelets (Bld) [#/Vol] 298 10*3/uL Normal 150-400 [facility] Comment on above: Order Comment: Speci men Type: BLOOD SPECIMENOrdering Facility: [facility] Address: [address] [place] [address] Performed By: #### 5 8410-2 ####[facility] LABCLIA [id number] [place] [id number] [place] RBC (Bld) [#/Vol] 4.36 10*6/uL Normal 3.90-5.20 [facility] Comment on above: Order Comment: Speci men Type: BLOOD SPECIMENOrdering Facility: [facility] Address: [address] [place] [address] Performed By: #### 5 8410-2 ####[facility] LABCLIA [id number] [address] [place] [address] [place] WBC (Bld) [#/Vol] 9.60 10*3/uL Normal 3.70-11.00 [facility] Comment on above: Order Comment: Speci men Type: BLOOD SPECIMENOrdering Facility: [facility] Address: [address] [place], [place] [address] Performed By: #### 5 8410-2 ####[facility] LABIA [id number] [address] [place] [address] [place] CONSULT PROGon 01-01-2025 CONSULT PROG Normal [facility] CONSULT PROG Normal [facility] CONSULT PROG Normal [facility] Comprehensive metabolic 2000 panelon 01-01-2025 Albumin [Mass/Vol] 3.5 g/dL Low 3.9-4.9 [facility] Comment on above: Order Comment: Speci men Type: BLOOD SPECIMENOrdering Facility: [facility] Address: [address] [place] [address] Performed By: #### 2 4323-8, 44813-2, 3016-3 ####[facility] LABIA [id number] [place] [id number] [place] ALP [Catalytic activity/Vol] 83 U/L Normal 34-123 [facility] Comment on above: Order Comment: Speci men Type: BLOOD SPECIMENOrdering Facility: [facility] Address: [address] [place], [place] [address] Performed By: #### 2 4323-8, 16383-4, 3016-3 ####[facility] LABIA [id number] [address] [address] [place] ALT [Catalytic activity/Vol] 18 U/L Normal 7-38 [facility] Comment on above: Order Comment: Speci men Type: BLOOD SPECIMENOrdering Facility: [facility] Address: [address] [place], [place] [address] Performed By: #### 2 4323-8, 27202-9, 6-3 ####[facility] LABCLIA [id number] [address] [address] [place] Anion gap [Moles/Vol] 14 mmol/L Normal 8-15 [facility] Comment on above: Order Comment: Speci men Type: BLOOD SPECIMENOrdering Facility: [facility] Address: [address] [place], [place] [address] Performed By: #### 2 4323-8, , 6-3 ####[facility] LABCLIA [id number] [address] [address] [place] AST [Catalytic activity/Vol] 22 U/L Normal 13-35 [facility] Comment on above: Order Comment: Speci men Type: BLOOD SPECIMENOrdering Facility: [facility] Address: [address] [place] [address] Result Comment: Resu lts may be falsely increased due to interference from hemolysis. Suggest reorder as clinically indicated. Performed By: #### 2 4323-8, , 6-3 ####[facility] LABIA [id number] [address] [address] [place] Bilirubin [Mass/Vol] 0.2 mg/dL Normal 0.2-1.3 [facility] Comment on above: Order Comment: Speci men Type: BLOOD SPECIMENOrdering Facility: [facility] Address: [address] [place] [address] Performed By: #### 2 4323-8, 55971-3, 6-3 ####[facility] LABIA [id number] [address] [address] [place] Calcium [Mass/Vol] 9.3 mg/dL Normal 8.5-10.2 [facility] Comment on above: Order Comment: Speci men Type: BLOOD SPECIMENOrdering Facility: [facility] Address: [address] [place], [place] [address] Performed By: #### 2 4323-8, 76258-2, 6-3 ####[facility] LABCLIA [id number] [address] [address] [place] Chloride [Moles/Vol] 105 mmol/L Normal 98-107 [facility] Comment on above: Order Comment: Speci men Type: BLOOD SPECIMENOrdering Facility: [facility] Address: [address] [place] [address] Performed By: #### 2 4323-8, 18735-7, 6-3 ####[facility] LABIA [id number] [place] [id number] [place] CO2 [Moles/Vol] 19 mmol/L Low 22-30 [facility] Comment on above: Order Comment: Speci men Type: BLOOD SPECIMENOrdering Facility: [facility] Address: [address] [place] [address] Performed By: #### 2 4323-8, 97806-3, 6-3 ####[facility] LABIA [id number] [place] [id number] [place] Creatinine [Mass/Vol] 2.06 mg/dL High 0.58-0.96 [facility] Comment on above: Order Comment: Speci men Type: BLOOD SPECIMENOrdering Facility: [facility] Address: [address] [place] [address] Performed By: #### 2 4323-8, 39884-9, 6-3 ####[facility] LABIA [id number] [address] [address] [place] Creatinine and Glomerular filtration rate.predicted panel (S/P/Bld) 26 mL/min/1.73m??? Low >=60 [facility] Comment on above: Order Comment: Speci men Type: BLOOD SPECIMENOrdering Facility: [facility] Address: [address] [place] [address] Result Comment: Maru mated Glomerular Filtration Rate [...] Performed By: #### 2 4323-8, , 3015-3 ####[facility] LABCLIA [id number] [address] [address] [place] Glucose [Mass/Vol] 112 mg/dL High 74-99 [facility] Comment on above: Order Comment: Marika hammonds Type: BLOOD SPECIMENOrdering Facility: [facility] Address: [address] [place] [address] Result Comment: The [place] [employer] (ADA) provides guidance for cutoff [...] Standards of Medical Care in Diabetes 2016, [place] [employer]. Diabetes Care. 2016.39(Suppl 1). Performed By: #### 2 4323-8, , 3015-09 ####[facility] LABIA [id number] [address] [address] [place] Potassium [Moles/Vol] 4.6 mmol/L Normal 3.7-5.1 [facility] Comment on above: Order Comment: Marika hammonds Type: BLOOD SPECIMENOrdering Facility: [facility] Address: [address] [place] [address] Performed By: #### 2 4323-8, , 3015-3 ####[facility] LABCLIA [id number] [address] [address] [place] Protein [Mass/Vol] 6.5 g/dL Normal 6.3-8.0 [facility] Comment on above: Order Comment: Speci men Type: BLOOD SPECIMENOrdering Facility: [facility] Address: [address] [place] [address] Performed By: #### 2 4323-8, 87382-2, 6-3 ####[facility] LABCLIA [id number] [address] [address] [place] Sodium [Moles/Vol] 138 mmol/L Normal 136-144 [facility] Comment on above: Order Comment: Speci men Type: BLOOD SPECIMENOrdering Facility: [facility] Address: [address] [place] [address] Performed By: #### 2 4323-8, , 6-3 ####[facility] LABIA [id number] [place] [id number] [place] Urea nitrogen [Mass/Vol] 27 mg/dL High 7-21 [facility] Comment on above: Order Comment: Speci men Type: BLOOD SPECIMENOrdering Facility: [facility] Address: [address] [place] [address] Performed By: #### 2 4323-8, 93687-9, 6-3 ####[facility] LABCLIA [id number] [address] [address] [place] Magnesium SerPl-mCncon 01-01 Magnesium [Mass/Vol] 2.2 mg/dL Normal 1.7-2.3 [facility] Comment on above: Order Comment: Speci men Type: BLOOD SPECIMENOrdering Facility: [facility] Address: [address] [place], [place] [address] Performed By: #### 2 4323-8, 17930-8, 6-3 ####[facility] LABCLIA [id number] [address] [address] [place] SOCIAL WORKon 01-01-2025 SOCIAL WORK Normal [facility] TSH SerPl-aCncon 01-01-2025 TSH Qn 1.280 m[IU]/L Normal 0.270-4.200 [facility] Comment on above: Order Comment: Speci men Type: BLOOD SPECIMENOrdering Facility: [facility] Address: [address] [place] [address] Performed By: #### 2 4323-8, 18673-5, 3016-3 ####[facility] LABIA [id number] [place] [id number] [place] XR CHEST 1V FRONTAL PORTon 0 01-01-2025 XR CHEST 1V FRONTAL PORT Normal [facility] CASE MANAGEMon 12-31-2024 CASE MANAGEM Normal [facility] CBC panel Auto (Bld)on 12-31 Erythrocyte distribution width (RBC) [Ratio] 14.3 % Normal 11.5-15.0 [facility] Comment on above: Order Comment: Speci men Type: BLOOD SPECIMENOrdering Facility: [facility] Address: [address] [place] [address] Performed By: #### 5 8410-2 ####[facility] LABIA [id number] [place] [id number] [place] Hematocrit (Bld) [Volume fraction] 38.9 % Normal 36.0-46.0 [facility] Comment on above: Order Comment: Speci men Type: BLOOD SPECIMENOrdering Facility: [facility] Address: [address] [place] [address] Performed By: #### 5 8410-2 ####[facility] LABIA [id number] [place] [id number] [place] Hemoglobin (Bld) [Mass/Vol] 12.7 g/dL Normal 11.5-15.5 [facility] Comment on above: Order Comment: Speci men Type: BLOOD SPECIMENOrdering Facility: [facility] Address: [address] [place] [address] Performed By: #### 5 8410-2 ####[facility] LABCLIA [id number] [place] [address] [place] MCH (RBC) [Entitic mass] 30.4 pg Normal 26.0-34.0 [facility] Comment on above: Order Comment: Speci men Type: BLOOD SPECIMENOrdering Facility: [facility] Address: [address] [place] [address] Performed By: #### 5 8410-2 ####[facility] LABIA [id number] [place] [address] [place] MCHC (RBC) [Mass/Vol] 32.6 g/dL Normal 30.5-36.0 [facility] Comment on above: Order Comment: Speci men Type: BLOOD SPECIMENOrdering Facility: [facility] Address: [address] [place] [address] Performed By: #### 5 8410-2 ####[facility] LABIA [id number] [place] [address] [place] MCV (RBC) [Entitic vol] 93.1 fL Normal 80.0-100.0 [facility] Comment on above: Order Comment: Speci men Type: BLOOD SPECIMENOrdering Facility: [facility] Address: [address] [place] [address] Performed By: #### 5 8410-2 ####[facility] LABCLIA [id number] [place] [id number] [place] Nucleated RBC (Bld) [#/Vol] 10*3/uL Normal <0.01 [facility] Comment on above: Order Comment: Speci men Type: BLOOD SPECIMENOrdering Facility: [facility] Address: [address] [place] [address] Performed By: #### 5 8410-2 ####[facility] LABCLIA [id number] [address] [address] [place] Platelet mean volume (Bld) [Entitic vol] 11.1 fL Normal 9.0-12.7 [facility] Comment on above: Order Comment: Speci men Type: BLOOD SPECIMENOrdering Facility: [facility] Address: [address] [place] [address] Performed By: #### 5 8410-2 ####[facility] LABIA [id number] [place] [id number] [place] Platelets (Bld) [#/Vol] 292 10*3/uL Normal 150-400 [facility] Comment on above: Order Comment: Speci men Type: BLOOD SPECIMENOrdering Facility: [facility] Address: [address] [place] [address] Performed By: #### 5 8410-2 ####[facility] LABIA [id number] [place] [address] [place] RBC (Bld) [#/Vol] 4.18 10*6/uL Normal 3.90-5.20 [facility] Comment on above: Order Comment: Speci men Type: BLOOD SPECIMENOrdering Facility: [facility] Address: [address] [place] [address] Performed By: #### 5 8410-2 ####[facility] LABIA [id number] [place] [id number] [place] WBC (Bld) [#/Vol] 8.78 10*3/uL Normal 3.70-11.00 [facility] Comment on above: Order Comment: Speci men Type: BLOOD SPECIMENOrdering Facility: [facility] Address: [address] [place] [address] Performed By: #### 5 8410-2 ####[facility] LABIA [id number] [place] [id number] [place] CONSULT PROGon 12-31-2024 CONSULT PROG Normal [facility] Comprehensive metabolic 2000 panelon 12-31-2024 Albumin [Mass/Vol] 3.4 g/dL Low 3.9-4.9 [facility] Comment on above: Order Comment: Speci men Type: BLOOD SPECIMENOrdering Facility: [facility] Address: [address] [place] [address] Performed By: #### 2 4323-8, ####[facility] LABCLIA [id number] [address] [address] [place] ALP [Catalytic activity/Vol] 72 U/L Normal 34-123 [facility] Comment on above: Order Comment: Speci men Type: BLOOD SPECIMENOrdering Facility: [facility] Address: [address] [place] [address] Performed By: #### 2 432-8, ####[facility] LABCLIA [id number] [place] [id number] [place] ALT [Catalytic activity/Vol] 19 U/L Normal 7-38 [facility] Comment on above: Order Comment: Speci men Type: BLOOD SPECIMENOrdering Facility: [facility] Address: [address] [place] [address] Performed By: #### 2 4323-8, ####[facility] LABCLIA [id number] [place] [id number] [place] Anion gap [Moles/Vol] 12 mmol/L Normal 8-15 [facility] Comment on above: Order Comment: Speci men Type: BLOOD SPECIMENOrdering Facility: [facility] Address: [address] [place], [place] [address] Performed By: #### 2 4323-8, ####[facility] LABCLIA [id number] [address] [place] [address] [place] AST [Catalytic activity/Vol] 16 U/L Normal 13-35 [facility] Comment on above: Order Comment: Speci men Type: BLOOD SPECIMENOrdering Facility: [facility] Address: [address] [place] [id number] Performed By: #### 2 4323-8, ####[facility] LABCLIA [id number] [address] [address] [place] Bilirubin [Mass/Vol] 0.2 mg/dL Normal 0.2-1.3 [facility] Comment on above: Order Comment: Speci men Type: BLOOD SPECIMENOrdering Facility: [facility] Address: [address] [place], [place] [address] Performed By: #### 2 432-8, ####[facility] LABCLIA [id number] [place] [id number] [place] Calcium [Mass/Vol] 9.3 mg/dL Normal 8.5-10.2 [facility] Comment on above: Order Comment: Speci men Type: BLOOD SPECIMENOrdering Facility: [facility] Address: [address] [place], [place] [address] Performed By: #### 2 4323-8, ####[facility] LABCLIA [id number] [place] [id number] [place] Chloride [Moles/Vol] 105 mmol/L Normal 98-107 [facility] Comment on above: Order Comment: Speci men Type: BLOOD SPECIMENOrdering Facility: [facility] Address: [address] [place] [address] Performed By: #### 2 4323-8, ####[facility] LABCLIA [id number] [place] [id number] [place] CO2 [Moles/Vol] 20 mmol/L Low 22-30 [facility] Comment on above: Order Comment: Speci men Type: BLOOD SPECIMENOrdering Facility: [facility] Address: [address] [place], [place] [address] Performed By: #### 2 4323-8, ####[facility] LABIA [id number] [address] [address] [place] Creatinine [Mass/Vol] 1.68 mg/dL High 0.58-0.96 [facility] Comment on above: Order Comment: Marika hammonds Type: BLOOD SPECIMENOrdering Facility: [facility] Address: [address] [place] [address] Performed By: #### 2 [address], ####[facility] [id number] [place] [address] [place] Creatinine and Glomerular filtration rate.predicted panel (S/P/Bld) 33 mL/min/1.73m??? Low >=60 [facility] Comment on above: Order Comment: Marika hammonds Type: BLOOD SPECIMENOrdering Facility: [facility] Address: [address] [place] [address] Result Comment: Maru mated Glomerular Filtration Rate [...] actual GFR. Performed By: #### 2 4323-8, ####[facility] LABIA [id number] [address] [address] [place] Glucose [Mass/Vol] 107 mg/dL High 74-99 [facility] Comment on above: Order Comment: Marika hammonds Type: BLOOD SPECIMENOrdering Facility: [facility] Address: [address] [place] [address] Result Comment: The [place] [employer] (ADA) provides guidance for cutoff [...] Standards of Medical Care in Diabetes 2016, [place] [employer]. Diabetes Care. 2016.39(Suppl 1). Performed By: #### 2 4323-02, ####[facility] LABCLIA [id number] [address] [address] [place] Potassium [Moles/Vol] 4.3 mmol/L Normal 3.7-5.1 [facility] Comment on above: Order Comment: Speci men Type: BLOOD SPECIMENOrdering Facility: [facility] Address: [address] [place] [address] Performed By: #### 2 4323-02, ####[facility] LABIA [id number] [address] [address] [place] Protein [Mass/Vol] 6.2 g/dL Low 6.3-8.0 [facility] Comment on above: Order Comment: Speci men Type: BLOOD SPECIMENOrdering Facility: [facility] Address: [address] [place] [address] Performed By: #### 2 4323-02, ####[facility] LABCLIA [id number] [address] [address] [place] Sodium [Moles/Vol] 137 mmol/L Normal 136-144 [facility] Comment on above: Order Comment: Speci men Type: BLOOD SPECIMENOrdering Facility: [facility] Address: [address] [place] [address] Performed By: #### 2 43[address]-08, ####[facility] LABCLIA [id number] [address] [address] [place] Urea nitrogen [Mass/Vol] 28 mg/dL High 7-21 [facility] Comment on above: Order Comment: Speci men Type: BLOOD SPECIMENOrdering Facility: [facility] Address: [address] [place] [address] Performed By: #### 2 4323-8, 42445-2 ####[facility] LABCLIA [id number] [place] [address] [place] Magnesium SerPl-mCncon 12-31 Magnesium [Mass/Vol] 2.2 mg/dL Normal 1.7-2.3 [facility] Comment on above: Order Comment: Speci men Type: BLOOD SPECIMENOrdering Facility: [facility] Address: [address] [place] [address] Performed By: #### 2 4323-8, 90073-0 ####[facility] LABCLIA [id number] [address] [place] CBC panel Auto (Bld)on 12-30 Erythrocyte distribution width (RBC) [Ratio] 14.4 % Normal 11.5-15.0 [facility] Comment on above: Order Comment: Speci men Type: BLOOD SPECIMENOrdering Facility: [facility] Address: [address] [place] [address] Performed By: #### 5 8410-2 ####[facility] LABCLIA [id number] [place] [address] [place] Hematocrit (Bld) [Volume fraction] 40.8 % Normal 36.0-46.0 [facility] [facility] Comment on above: Order Comment: Speci men Type: BLOOD SPECIMENOrdering Facility: [facility] Address: [address] [place] [address] Performed By: #### 5 8410-2 ####[facility] LABCLIA [id number] [place] [address] [place] Hemoglobin (Bld) [Mass/Vol] 12.9 g/dL Normal 11.5-15.5 [facility] Comment on above: Order Comment: Speci men Type: BLOOD SPECIMENOrdering Facility: [facility] Address: [address] [place] [address] Performed By: #### 5 8410-2 ####[facility] LABIA [id number] [place] [address] [place] MCH (RBC) [Entitic mass] 30.4 pg Normal 26.0-34.0 [facility] Comment on above: Order Comment: Speci men Type: BLOOD SPECIMENOrdering Facility: [facility] Address: [address] [place] [address] Performed By: #### 5 8410-2 ####[facility] LABIA [id number] [place] [address] [place] MCHC (RBC) [Mass/Vol] 31.6 g/dL Normal 30.5-36.0 [facility] Comment on above: Order Comment: Speci men Type: BLOOD SPECIMENOrdering Facility: [facility] Address: [address] [place] [address] Performed By: #### 5 8410-2 ####[facility] LABIA [id number] [place] [address] [place] MCV (RBC) [Entitic vol] 96.0 fL Normal 80.0-100.0 [facility] Comment on above: Order Comment: Speci men Type: BLOOD SPECIMENOrdering Facility: [facility] Address: [address] [place] [address] Performed By: #### 5 8410-2 ####[facility] LABIA [id number] [place] [address] [place] Nucleated RBC (Bld) [#/Vol] 10*3/uL Normal <0.01 [facility] Comment on above: Order Comment: Speci men Type: BLOOD SPECIMENOrdering Facility: [facility] Address: [address] [place] [address] Performed By: #### 5 8410-2 ####[facility] LABCLIA [id number] [place] [address] [place] Platelet mean volume (Bld) [Entitic vol] 11.3 fL Normal 9.0-12.7 [facility] Comment on above: Order Comment: Speci men Type: BLOOD SPECIMENOrdering Facility: [facility] Address: [address] [place] [address] Performed By: #### 5 8410-2 ####[facility] LABCLIA [id number] [place] [address] [place] Platelets (Bld) [#/Vol] 299 10*3/uL Normal 150-400 [facility] Comment on above: Order Comment: Speci men Type: BLOOD SPECIMENOrdering Facility: [facility] Address: [address] [place] [address] Performed By: #### 5 8410-2 ####[facility] LABCLIA [id number] [place] [address] [place] RBC (Bld) [#/Vol] 4.25 10*6/uL Normal 3.90-5.20 [facility] Comment on above: Order Comment: Speci men Type: BLOOD SPECIMENOrdering Facility: [facility] Address: [address] [place] [address] Performed By: #### 5 8410-2 ####[facility] LABCLIA [id number] [place] [id number] [place] WBC (Bld) [#/Vol] 8.87 10*3/uL Normal 3.70-11.00 [facility] Comment on above: Order Comment: Speci men Type: BLOOD SPECIMENOrdering Facility: [facility] Address: [address] [place] [address] Performed By: #### 5 8410-2 ####[facility] LABCLIA [id number] [address] [address] [place] Comprehensive metabolic 2000 panelon 12-30-2024 Albumin [Mass/Vol] 3.4 g/dL Low 3.9-4.9 [facility] Comment on above: Order Comment: Speci men Type: BLOOD SPECIMENOrdering Facility: [facility] Address: [address] [place] [address] Performed By: #### 1 9123-9, 04859-5 ####[facility] LABCLIA [id number] [place] [id number] [place] ALP [Catalytic activity/Vol] 75 U/L Normal 34-123 [facility] Comment on above: Order Comment: Speci men Type: BLOOD SPECIMENOrdering Facility: [facility] Address: [address] [place] [address] Performed By: #### 1 9123-9, 95324-3 ####[facility] LABIA [id number] [place] [id number] [place] ALT [Catalytic activity/Vol] 17 U/L Normal 7-38 [facility] Comment on above: Order Comment: Speci men Type: BLOOD SPECIMENOrdering Facility: [facility] Address: [address] [place] [address] Performed By: #### 1 9123-9, 82385-8 ####[facility] LABIA [id number] [place] [id number] [place] Anion gap [Moles/Vol] 13 mmol/L Normal 8-15 [facility] Comment on above: Order Comment: Speci men Type: BLOOD SPECIMENOrdering Facility: [facility] Address: [address] [place] [address] Performed By: #### 1 9123-9, 14778-3 ####[facility] LABIA [id number] [place] [id number] [place] AST [Catalytic activity/Vol] 16 U/L Normal 13-35 [facility] Comment on above: Order Comment: Speci men Type: BLOOD SPECIMENOrdering Facility: [facility] Address: [address] [place] [address] Performed By: #### 1 23-9, ####[facility] LABCLIA [id number] [place] [address] [place] Bilirubin [Mass/Vol] 0.3 mg/dL Normal 0.2-1.3 [facility] Comment on above: Order Comment: Speci men Type: BLOOD SPECIMENOrdering Facility: [facility] Address: [address] [place] [address] Performed By: #### 1 9123-9, ####[facility] LABCLIA [id number] [place] [address] [place] Calcium [Mass/Vol] 9.4 mg/dL Normal 8.5-10.2 [facility] Comment on above: Order Comment: Speci men Type: BLOOD SPECIMENOrdering Facility: [facility] Address: [address] [place] [address] Performed By: #### 1 9123-9, ####[facility] LABIA [id number] [place] [address] [place] Chloride [Moles/Vol] 106 mmol/L Normal 98-107 [facility] Comment on above: Order Comment: Speci men Type: BLOOD SPECIMENOrdering Facility: [facility] Address: [address] [place] [address] Performed By: #### 1 23-9, 36706-8 ####[facility] LABCLIA [id number] [place] [id number] [place] CO2 [Moles/Vol] 20 mmol/L Low 22-30 [facility] Comment on above: Order Comment: Speci men Type: BLOOD SPECIMENOrdering Facility: [facility] Address: [address] [place] [address] Performed By: #### 1 9123-9, 93904-2 ####[facility] [id number] [place] [id number] [place] Creatinine [Mass/Vol] 1.64 mg/dL High 0.58-0.96 [facility] Comment on above: Order Comment: Speci men Type: BLOOD SPECIMENOrdering Facility: [facility] Address: [address] [place] [address] Performed By: #### 1 9123-9, ####[facility] [id number] [place] [address] [place] Creatinine and Glomerular filtration rate.predicted panel (S/P/Bld) 34 mL/min/1.73m??? Low >=60 [facility] Comment on above: Order Comment: Marika men Type: BLOOD SPECIMENOrdering Facility: [facility] Address: [address] [place] [address] Result Comment: Maru mated Glomerular Filtration Rate [...] actual GFR. Performed By: #### 1 9123-9, ####[facility] [id number] [place] [id number] [place] Glucose [Mass/Vol] 114 mg/dL High 74-99 [facility] Comment on above: Order Comment: Speci men Type: BLOOD SPECIMENOrdering Facility: [facility] Address: [address] [place] [address] Result Comment: The [place] [employer] (ADA) provides guidance for cutoff [...] Standards of Medical Care in Diabetes 2016, [place] [employer]. Diabetes Care. 2016.39(Suppl 1). Performed By: #### 1 9, ####[facility] LABCLIA [id number] [place] [address] [place] Potassium [Moles/Vol] 4.5 mmol/L Normal 3.7-5.1 [facility] Comment on above: Order Comment: Speci men Type: BLOOD SPECIMENOrdering Facility: [facility] Address: [address] [place] [address] Performed By: #### 1 9123-03, ####[facility] LABCLIA [id number] [place] [address] [place] Protein [Mass/Vol] 6.3 g/dL Normal 6.3-8.0 [facility] Comment on above: Order Comment: Speci men Type: BLOOD SPECIMENOrdering Facility: [facility] Address: [address] [place] [address] Performed By: #### 1 9123-03, ####[facility] LABCLIA [id number] [address] [address] [place] Sodium [Moles/Vol] 139 mmol/L Normal 136-144 [facility] Comment on above: Order Comment: Speci men Type: BLOOD SPECIMENOrdering Facility: [facility] Address: [address] [place] [address] Performed By: #### 1 23, ####[facility] LABCLIA [id number] [address] [address] [place] Urea nitrogen [Mass/Vol] 32 mg/dL High 7- [facility] Comment on above: Order Comment: Speci men Type: BLOOD SPECIMENOrdering Facility: [facility] Address: [address] [place] [address] Performed By: #### 1 9123-9, 95718-7 ####[facility] LABCLIA [id number] [place] [id number] [place] Magnesium SerPl-mCncon 12-30 Magnesium [Mass/Vol] 2.2 mg/dL Normal 1.7-2.3 [facility] Comment on above: Order Comment: Speci men Type: BLOOD SPECIMENOrdering Facility: [facility] Address: [address] [place] [address] Performed By: #### 1 9123-9, 07055-1 ####[facility] LABCLIA [id number] [place] [address] [place] NURSING PROGon 12-30-2024 NURSING PROG Normal [facility] THERAPY NTon 12-30-2024 THERAPY NT Normal [facility] CBC panel Auto (Bld)on 12-29 Erythrocyte distribution width (RBC) [Ratio] 13.9 % Normal 11.5-15.0 [facility] Comment on above: Order Comment: Speci men Type: BLOOD SPECIMENOrdering Facility: [facility] Address: [address] [place] [address] Performed By: #### 5 8410-2 ####[facility] LABCLIA [id number] [place] [id number] [place] Hematocrit (Bld) [Volume fraction] 40.9 % Normal 36.0-46.0 [facility] Comment on above: Order Comment: Speci men Type: BLOOD SPECIMENOrdering Facility: [facility] Address: [address] [place] [address] Performed By: #### 5 8410-2 ####[facility] LABIA [id number] [place] [address] [place] Hemoglobin (Bld) [Mass/Vol] 13.4 g/dL Normal 11.5-15.5 [facility] Comment on above: Order Comment: Speci men Type: BLOOD SPECIMENOrdering Facility: [facility] Address: [address] [place] [address] Performed By: #### 5 8410-2 ####[facility] LABIA [id number] [place] [address] [place] MCH (RBC) [Entitic mass] 30.6 pg Normal 26.0-34.0 [facility] Comment on above: Order Comment: Speci men Type: BLOOD SPECIMENOrdering Facility: [facility] Address: [address] [place] [address] Performed By: #### 5 8410-2 ####[facility] [id number] [place] [address] [place] MCHC (RBC) [Mass/Vol] 32.8 g/dL Normal 30.5-36.0 [facility] Comment on above: Order Comment: Speci men Type: BLOOD SPECIMENOrdering Facility: [facility] Address: [address] [place] [address] Performed By: #### 5 8410-2 ####[facility] LABIA [id number] [place] [address] [place] MCV (RBC) [Entitic vol] 93.4 fL Normal 80.0-100.0 [facility] Comment on above: Order Comment: Speci men Type: BLOOD SPECIMENOrdering Facility: [facility] Address: [address] [place] [address] Performed By: #### 5 8410-2 ####[facility] LABIA [id number] [place] [address] [place] Nucleated RBC (Bld) [#/Vol] 10*3/uL Normal <0.01 [facility] Comment on above: Order Comment: Speci men Type: BLOOD SPECIMENOrdering Facility: [facility] Address: [address] [place] [address] Performed By: #### 5 8410-2 ####[facility] LABCLIA [id number] [facility] [place] [address] [place] Platelet mean volume (Bld) [Entitic vol] 10.5 fL Normal 9.0-12.7 [facility] Comment on above: Order Comment: Speci men Type: BLOOD SPECIMENOrdering Facility: [facility] Address: [address] [place] [address] Performed By: #### 5 8410-2 ####[facility] LABCLIA [id number] [place] [address] [place] Platelets (Bld) [#/Vol] 333 10*3/uL Normal 150-400 [facility] Comment on above: Order Comment: Speci men Type: BLOOD SPECIMENOrdering Facility: [facility] Address: [address] [place] [address] Performed By: #### 5 8410-2 ####[facility] LABCLIA [id number] [place] [address] [place] RBC (Bld) [#/Vol] 4.38 10*6/uL Normal 3.90-5.20 [facility] Comment on above: Order Comment: Speci men Type: BLOOD SPECIMENOrdering Facility: [facility] Address: [address] [place] [address] Performed By: #### 5 8410-2 ####[facility] LABCLIA [id number] [place] [address] [place] WBC (Bld) [#/Vol] 9.50 10*3/uL Normal 3.70-11.00 [facility] Comment on above: Order Comment: Speci men Type: BLOOD SPECIMENOrdering Facility: [facility] Address: [address] [place], [place] [address] Performed By: #### 5 8410-2 ####[facility] LABCLIA [id number] [address] [place] [address] [place] Comprehensive metabolic 2000 panelon 12-29-2024 Albumin [Mass/Vol] 3.3 g/dL Low 3.9-4.9 [facility] Comment on above: Order Comment: Speci men Type: BLOOD SPECIMENOrdering Facility: [facility] Address: [address] [place], [place] [address] Performed By: #### 2 4323-8, ####[facility] LABCLIA [id number] [address] [place] [address] [place] ALP [Catalytic activity/Vol] 61 U/L Normal 34-123 [facility] Comment on above: Order Comment: Speci men Type: BLOOD SPECIMENOrdering Facility: [facility] Address: [address] [place], [place] [address] Performed By: #### 2 4323-8, ####[facility] LABCLIA [id number] [address], [facility] [place] ALT [Catalytic activity/Vol] 18 U/L Normal 7-38 [facility] Comment on above: Order Comment: Speci men Type: BLOOD SPECIMENOrdering Facility: [facility] Address: [address] [place], [place] [address] Performed By: #### 2 4323-8, ####[facility] LABCLIA [id number] [address] [place] [address] [place] Anion gap [Moles/Vol] 11 mmol/L Normal 8-15 [facility] Comment on above: Order Comment: Speci men Type: BLOOD SPECIMENOrdering Facility: [facility] Address: [address] [place], [place] [address] Performed By: #### 2 4323-8, ####[facility] LABCLIA [id number] [address] [address] [place] AST [Catalytic activity/Vol] 15 U/L Normal 13-35 [facility] Comment on above: Order Comment: Speci men Type: BLOOD SPECIMENOrdering Facility: [facility] Address: [address] [place] [address] Performed By: #### 2 432-8, ####[facility] LABCLIA [id number] [address] [address] [place] Bilirubin [Mass/Vol] 0.3 mg/dL Normal 0.2-1.3 [facility] Comment on above: Order Comment: Speci men Type: BLOOD SPECIMENOrdering Facility: [facility] Address: [address] [place] [address] Performed By: #### 2 43209-08, ####[facility] LABCLIA [id number] [place] [id number] [place] Calcium [Mass/Vol] 9.4 mg/dL Normal 8.5-10.2 [facility] Comment on above: Order Comment: Speci men Type: BLOOD SPECIMENOrdering Facility: [facility] Address: [address] [place] [address] Performed By: #### 2 4328, ####[facility] LABCLIA [id number] [address] [address] [place] Chloride [Moles/Vol] 107 mmol/L Normal 98-107 [facility] Comment on above: Order Comment: Speci men Type: BLOOD SPECIMENOrdering Facility: [facility] Address: [address] [place], [place] [address] Performed By: #### 2 4323-8, ####[facility] LABCLIA [id number] [address] [address] [place] CO2 [Moles/Vol] 21 mmol/L Low 22-30 [facility] Comment on above: Order Comment: Speci men Type: BLOOD SPECIMENOrdering Facility: [facility] Address: [address] [place] [address] Performed By: #### 2 4323-8, ####[facility] LABCLIA [id number] [place] [id number] [place] Creatinine [Mass/Vol] 1.74 mg/dL High 0.58-0.96 [facility] Comment on above: Order Comment: Speci men Type: BLOOD SPECIMENOrdering Facility: [facility] Address: [address] [place] [address] Performed By: #### 2 43238, ####[facility] LABCLIA [id number] [place] [address] [place] Creatinine and Glomerular filtration rate.predicted panel (S/P/Bld) 32 mL/min/1.73m??? Low >=60 [facility] Comment on above: Order Comment: Speci men Type: BLOOD SPECIMENOrdering Facility: [facility] Address: [address] [place] [address] Result Comment: Maru mated Glomerular Filtration Rate [...] actual GFR. Performed By: #### 2 4323-8, ####[facility] LABCLIA [id number] [place] [id number] [place] Glucose [Mass/Vol] 98 mg/dL Normal 74-99 [facility] Comment on above: Order Comment: Speci men Type: BLOOD SPECIMENOrdering Facility: [facility] Address: [address] [place] [id number] Result Comment: The [place] [employer] (ADA) provides guidance for cutoff [...] Standards of Medical Care in Diabetes 2016, [place] [employer]. Diabetes Care. 2016.39(Suppl 1). Performed By: #### 2 4323-8, ####[facility] LABIA [id number] [place] [address] [place] Potassium [Moles/Vol] 4.7 mmol/L Normal 3.7-5.1 [facility] Comment on above: Order Comment: Speci men Type: BLOOD SPECIMENOrdering Facility: [facility] Address: [address] [place] [phone] Performed By: #### 2 4323-, ####[facility] LABIA [id number] [place] [address] [place] Protein [Mass/Vol] 6.3 g/dL Normal 6.3-8.0 [facility] Comment on above: Order Comment: Speci men Type: BLOOD SPECIMENOrdering Facility: [facility] Address: [address] [place] [id number] Performed By: #### 2 3, ####[facility] LABIA [id number] [place] [id number] [place] Sodium [Moles/Vol] 139 mmol/L Normal 136-144 [facility] Comment on above: Order Comment: Speci men Type: BLOOD SPECIMENOrdering Facility: [facility] Address: [address] [place] [address] Performed By: #### 2 4323-8, 38205-8 ####[facility] LABCLIA [id number] [place] [id number] [place] Urea nitrogen [Mass/Vol] 37 mg/dL High 7-21 [facility] Comment on above: Order Comment: Speci men Type: BLOOD SPECIMENOrdering Facility: [facility] Address: [address] [place] [address] Performed By: #### 2 4323-8, 60120-5 ####[facility] LABIA [id number] [place] [id number] [place] Magnesium SerPl-mCncon 12-29 Magnesium [Mass/Vol] 2.2 mg/dL Normal 1.7-2.3 [facility] Comment on above: Order Comment: Speci men Type: BLOOD SPECIMENOrdering Facility: [facility] Address: [address] [place] [address] Performed By: #### 2 4323-8, 33804-4 ####[facility]IA [id number] [place] [address] [place] CASE MANAGEMon 12-28-2024 CASE MANAGEM Normal [facility] CBC panel Auto (Bld)on 12-28 Erythrocyte distribution width (RBC) [Ratio] 13.9 % Normal 11.5-15.0 [facility] Comment on above: Order Comment: Speci men Type: BLOOD SPECIMENOrdering Facility: [facility] Address: [address] [place] [address] Performed By: #### 5 8410-2 ####[facility] [id number] [place] [id number] [place] Hematocrit (Bld) [Volume fraction] 41.0 % Normal 36.0-46.0 [facility] Comment on above: Order Comment: Speci men Type: BLOOD SPECIMENOrdering Facility: [facility] Address: [address] [place] [address] Performed By: #### 5 8410-2 ####[facility] LABCLIA [id number] [place] [address] [place] Hemoglobin (Bld) [Mass/Vol] 13.2 g/dL Normal 11.5-15.5 [facility] Comment on above: Order Comment: Speci men Type: BLOOD SPECIMENOrdering Facility: [facility] Address: [address] [place] [address] Performed By: #### 5 8410-2 ####[facility] LABCLIA [id number] [place] [address] [place] MCH (RBC) [Entitic mass] 30.5 pg Normal 26.0-34.0 [facility] Comment on above: Order Comment: Speci men Type: BLOOD SPECIMENOrdering Facility: [facility] Address: [address] [place] [address] Performed By: #### 5 8410-2 ####[facility] LABCLIA [id number] [place] [address] [place] MCHC (RBC) [Mass/Vol] 32.2 g/dL Normal 30.5-36.0 [facility] Comment on above: Order Comment: Speci men Type: BLOOD SPECIMENOrdering Facility: [facility] Address: [address] [place] [address] Performed By: #### 5 8410-2 ####[facility] LABCLIA [id number] [place] [address] [place] MCV (RBC) [Entitic vol] 94.7 fL Normal 80.0-100.0 [facility] Comment on above: Order Comment: Speci men Type: BLOOD SPECIMENOrdering Facility: [facility] Address: [address] [place] [address] Performed By: #### 5 8410-2 ####[facility] LABCLIA [id number] [address] [address] [place] Nucleated RBC (Bld) [#/Vol] 10*3/uL Normal <0.01 [facility] Comment on above: Order Comment: Speci men Type: BLOOD SPECIMENOrdering Facility: [facility] Address: [address] [place] [address] Performed By: #### 5 8410-2 ####[facility] LABIA [id number] [place] [address] [place] Platelet mean volume (Bld) [Entitic vol] 11.6 fL Normal 9.0-12.7 [facility] Comment on above: Order Comment: Speci men Type: BLOOD SPECIMENOrdering Facility: [facility] Address: [address] [place] [address] Performed By: #### 5 8410-2 ####[facility] LABIA [id number] [place] [address] [place] Platelets (Bld) [#/Vol] 309 10*3/uL Normal 150-400 [facility] Comment on above: Order Comment: Speci men Type: BLOOD SPECIMENOrdering Facility: [facility] Address: [address] [place] [address] Performed By: #### 5 8410-2 ####[facility] LABIA [id number] [place] [address] [place] RBC (Bld) [#/Vol] 4.33 10*6/uL Normal 3.90-5.20 [facility] Comment on above: Order Comment: Speci men Type: BLOOD SPECIMENOrdering Facility: [facility] Address: [address] [place] [address] Performed By: #### 5 8410-2 ####[facility] LABIA [id number] [place] [id number] [place] WBC (Bld) [#/Vol] 8.53 10*3/uL Normal 3.70-11.00 [facility] Comment on above: Order Comment: Speci men Type: BLOOD SPECIMENOrdering Facility: [facility] Address: [address] [place] [address] Performed By: #### 5 8410-2 ####[facility] LABCLIA [id number] [place] [address] [place] CONSULT PROGon 12-28-2024 CONSULT PROG Normal [facility] CONSULT PROG Normal [facility] Comprehensive metabolic 2000 panelon 12-28-2024 Albumin [Mass/Vol] 3.3 g/dL Low 3.9-4.9 [facility] Comment on above: Order Comment: Speci men Type: BLOOD SPECIMENOrdering Facility: [facility] Address: [address] [place] [address] Performed By: #### 1 9123-9, 88483-2 ####[facility] LABCLIA [id number] [address], [facility]95 [place] ALP [Catalytic activity/Vol] 62 U/L Normal 34-123 [facility] Comment on above: Order Comment: Speci men Type: BLOOD SPECIMENOrdering Facility: [facility] Address: [address] [place] [address] Performed By: #### 1 9123-9, 81912-5 ####[facility] LABCLIA [id number] [address], [facility]95 [place] ALT [Catalytic activity/Vol] 16 U/L Normal 7-38 [facility] Comment on above: Order Comment: Speci men Type: BLOOD SPECIMENOrdering Facility: [facility] Address: [address] [place] [address] Performed By: #### 1 9123-9, 86898-8 ####[facility] LABCLIA [id number] [address], [facility]95 [place] Anion gap [Moles/Vol] 13 mmol/L Normal 8-15 [facility] Comment on above: Order Comment: Speci men Type: BLOOD SPECIMENOrdering Facility: [facility] Address: [address] [place], [place] [address] Performed By: #### 1 9123-9, ####[facility] LABCLIA [id number] [facility] [place] [facility] [address] [address] [place] AST [Catalytic activity/Vol] 14 U/L Normal 13-35 [facility] Comment on above: Order Comment: Speci men Type: BLOOD SPECIMENOrdering Facility: [facility] Address: [address] [place] [address] Performed By: #### 1 9123-9, ####[facility] LABCLIA [id number] [place] [id number] [place] Bilirubin [Mass/Vol] 0.4 mg/dL Normal 0.2-1.3 [facility] Comment on above: Order Comment: Speci men Type: BLOOD SPECIMENOrdering Facility: [facility] Address: [address] [place], [place] [address] Performed By: #### 1 9123-9, ####[facility] LABCLIA [id number] [facility] [place] [facility] [place] [id number] [place] Calcium [Mass/Vol] 9.5 mg/dL Normal 8.5-10.2 [facility] Comment on above: Order Comment: Speci men Type: BLOOD SPECIMENOrdering Facility: [facility] Address: [address] [place], [place] [address] Performed By: #### 1 9123-9, ####[facility] LABCLIA [id number] [place] [id number] [place] Chloride [Moles/Vol] 104 mmol/L Normal 98-107 [facility] Comment on above: Order Comment: Speci men Type: BLOOD SPECIMENOrdering Facility: [facility] Address: [address] [place], [place] [address] Performed By: #### 1 9123-9, 75826-7 ####[facility] LABIA [id number] [place] [id number] [place] CO2 [Moles/Vol] 20 mmol/L Low 22-30 [facility] Comment on above: Order Comment: Speci men Type: BLOOD SPECIMENOrdering Facility: [facility] Address: [address] [place] [address] Performed By: #### 1 9123-9, 83429-1 ####[facility] LABIA [id number] [place] [id number] [place] Creatinine [Mass/Vol] 1.77 mg/dL High 0.58-0.96 [facility] Comment on above: Order Comment: Speci men Type: BLOOD SPECIMENOrdering Facility: [facility] Address: [address] [place] [address] Performed By: #### 1 9123-9, 27104-0 ####[facility] LABIA [id number] [place] [address] [place] Creatinine and Glomerular filtration rate.predicted panel (S/P/Bld) 31 mL/min/1.73m??? Low >=60 [facility] Comment on above: Order Comment: Speci men Type: BLOOD SPECIMENOrdering Facility: [facility] Address: [address] [place] [address] Result Comment: Maru mated Glomerular Filtration Rate [...] actual GFR. Performed By: #### 1 9123-9, 79815-8 ####[facility] LABIA [id number] [place] [address] [place] Glucose [Mass/Vol] 90 mg/dL Normal 74-99 [facility] Comment on above: Order Comment: Speci men Type: BLOOD SPECIMENOrdering Facility: [facility] Address: [address] [place] [address] Result Comment: The [place] [employer] (ADA) provides guidance for cutoff [...] Standards of Medical Care in Diabetes 2016, [place] [employer]. Diabetes Care. 2016.39(Suppl 1). Performed By: #### 1 9123-9, 75461-6 ####[facility] LABIA [id number] [place] [address] [place] Potassium [Moles/Vol] 4.2 mmol/L Normal 3.7-5.1 [facility] Comment on above: Order Comment: Speci men Type: BLOOD SPECIMENOrdering Facility: [facility] Address: [address] [place] [address] Performed By: #### 1 9123-9, ####[facility] LABIA [id number] [place] [id number] [place] Protein [Mass/Vol] 6.4 g/dL Normal 6.3-8.0 [facility] Comment on above: Order Comment: Speci men Type: BLOOD SPECIMENOrdering Facility: [facility] Address: [address] [place] [address] Performed By: #### 1 9123-9, ####[facility] LABCLIA [id number] [place] [id number] [place] Sodium [Moles/Vol] 137 mmol/L Normal 136-144 [facility] Comment on above: Order Comment: Speci men Type: BLOOD SPECIMENOrdering Facility: [facility] Address: [address] [place] [address] Performed By: #### 1 9123-9, 57582-4 ####[facility] LABCLIA [id number] [place] [id number] [place] Urea nitrogen [Mass/Vol] 37 mg/dL High 7-21 [facility] Comment on above: Order Comment: Speci men Type: BLOOD SPECIMENOrdering Facility: [facility] Address: [address] [place] [address] Performed By: #### 1 9123-9, 61909-6 ####[facility] LABIA [id number] [place] [id number] [place] Magnesium SerPl-mCncon 12-28 Magnesium [Mass/Vol] 2.2 mg/dL Normal 1.7-2.3 [facility] Comment on above: Order Comment: Speci men Type: BLOOD SPECIMENOrdering Facility: [facility] Address: [address] [place] [address] Performed By: #### 1 9123-9, 53531-8 ####[facility] LABIA [id number] [place] [id number] [place] NUTRITIONon 12-28-2024 NUTRITION Normal [facility] XR CHEST 1V FRONTALon 2024 XR CHEST 1V FRONTAL Normal [facility] CBC panel Auto (Bld)on 12-27 Erythrocyte distribution width (RBC) [Ratio] 13.9 % Normal 11.5-15.0 [facility] Comment on above: Order Comment: Speci men Type: BLOOD SPECIMENOrdering Facility: [facility] Address: [address] [place] [address] Performed By: #### 5 8410-2 ####[facility] LABCLIA [id number] [place] [address] [place] Hematocrit (Bld) [Volume fraction] 42.4 % Normal 36.0-46.0 [facility] Comment on above: Order Comment: Speci men Type: BLOOD SPECIMENOrdering Facility: [facility] Address: [address] [place] [address] Performed By: #### 5 8410-2 ####[facility] LABIA [id number] [place] [address] [place] Hemoglobin (Bld) [Mass/Vol] 13.2 g/dL Normal 11.5-15.5 [facility] Comment on above: Order Comment: Speci men Type: BLOOD SPECIMENOrdering Facility: [facility] Address: [address] [place] [address] Performed By: #### 5 8410-2 ####[facility] LABIA [id number] [place] [address] [place] MCH (RBC) [Entitic mass] 29.9 pg Normal 26.0-34.0 [facility] Comment on above: Order Comment: Speci men Type: BLOOD SPECIMENOrdering Facility: [facility] Address: [address] [place] [address] Performed By: #### 5 8410-2 ####[facility] LABIA [id number] [place] [address] [place] MCHC (RBC) [Mass/Vol] 31.1 g/dL Normal 30.5-36.0 [facility] Comment on above: Order Comment: Speci men Type: BLOOD SPECIMENOrdering Facility: [facility] Address: [address] [place] [address] Performed By: #### 5 8410-2 ####[facility] LABIA [id number] [place] [address] [place] MCV (RBC) [Entitic vol] 96.1 fL Normal 80.0-100.0 [facility] Comment on above: Order Comment: Speci men Type: BLOOD SPECIMENOrdering Facility: [facility] Address: [address] [place] [address] Performed By: #### 5 8410-2 ####[facility] LABCLIA [id number] [place] [address] [place] Nucleated RBC (Bld) [#/Vol] 10*3/uL Normal <0.01 [facility] Comment on above: Order Comment: Speci men Type: BLOOD SPECIMENOrdering Facility: [facility] Address: [address] [place] [address] Performed By: #### 5 8410-2 ####[facility] LABIA [id number] [place] [address] [place] Platelet mean volume (Bld) [Entitic vol] 12.0 fL Normal 9.0-12.7 [facility] Comment on above: Order Comment: Speci men Type: BLOOD SPECIMENOrdering Facility: [facility] Address: [address] [place] [address] Performed By: #### 5 8410-2 ####[facility] LABIA [id number] [place] [address] [place] Platelets (Bld) [#/Vol] 319 10*3/uL Normal 150-400 [facility] Comment on above: Order Comment: Speci men Type: BLOOD SPECIMENOrdering Facility: [facility] Address: [address] [place] [address] Performed By: #### 5 8410-2 ####[facility] LABIA [id number] [place] [address] [place] RBC (Bld) [#/Vol] 4.41 10*6/uL Normal 3.90-5.20 [facility] Comment on above: Order Comment: Speci men Type: BLOOD SPECIMENOrdering Facility: [facility] Address: [address] [place] [address] Performed By: #### 5 8410-2 ####[facility] LABCLIA [id number] [place] [address] [place] WBC (Bld) [#/Vol] 9.66 10*3/uL Normal 3.70-11.00 [facility] Comment on above: Order Comment: Speci men Type: BLOOD SPECIMENOrdering Facility: [facility] Address: [address] [place] [address] Performed By: #### 5 8410-2 ####[facility] LABCLIA [id number] [place] [address] [place] CONSULTon 12-27-2024 CONSULT Normal [facility] CONSULT Normal [facility] metabolic 2000 panelon 12-27-2024 Albumin [Mass/Vol] 3.3 g/dL Low 3.9-4.9 [facility] Comment on above: Order Comment: Speci men Type: BLOOD SPECIMENOrdering Facility: [facility] Address: [address] [place] [address] Performed By: #### 2 4323-8, ####[facility] LABCLIA [id number] [place] [address] [place] ALP [Catalytic activity/Vol] 67 U/L Normal 34-123 [facility] Comment on above: Order Comment: Speci men Type: BLOOD SPECIMENOrdering Facility: [facility] Address: [address] [place] [address] Performed By: #### 2 4323-8, ####[facility] LABCLIA [id number] [place] [address] [place] ALT [Catalytic activity/Vol] 15 U/L Normal 7-38 [facility] Comment on above: Order Comment: Speci men Type: BLOOD SPECIMENOrdering Facility: [facility] Address: [address] [place] [id number] Performed By: #### 2 432-8, ####[facility] LABCLIA [id number] [address] [address] [place] Anion gap [Moles/Vol] 13 mmol/L Normal 8-15 [facility] Comment on above: Order Comment: Speci men Type: BLOOD SPECIMENOrdering Facility: [facility] Address: [address] [place], [place] [address] Performed By: #### 2 4323-02, ####[facility] LABCLIA [id number] [address] [address] [place] AST [Catalytic activity/Vol] 14 U/L Normal 13-35 [facility] Comment on above: Order Comment: Speci men Type: BLOOD SPECIMENOrdering Facility: [facility] Address: [address] [place], [place] [address] Performed By: #### 2 4323-02, ####[facility] LABCLIA [id number] [address] [address] [place] Bilirubin [Mass/Vol] 0.3 mg/dL Normal 0.2-1.3 [facility] Comment on above: Order Comment: Speci men Type: BLOOD SPECIMENOrdering Facility: [facility] Address: [address] [place], [place] [address] Performed By: #### 2 4323-02, ####[facility] LABCLIA [id number] [address] [address] [place] Calcium [Mass/Vol] 9.3 mg/dL Normal 8.5-10.2 [facility] Comment on above: Order Comment: Speci men Type: BLOOD SPECIMENOrdering Facility: [facility] Address: [address] [place], [place] [address] Performed By: #### 2 4323-02, ####[facility] LABCLIA [id number] [place] [id number] [place] Chloride [Moles/Vol] 108 mmol/L High 98-107 [facility] Comment on above: Order Comment: Speci men Type: BLOOD SPECIMENOrdering Facility: [facility] Address: [address] [place] [address] Performed By: #### 2 4323-8, 92039-0 ####[facility] LABIA [id number] [place] [id number] [place] CO2 [Moles/Vol] 17 mmol/L Low 22-30 [facility] Comment on above: Order Comment: Speci men Type: BLOOD SPECIMENOrdering Facility: [facility] Address: [address] [place] [address] Performed By: #### 2 4323-8, 14054-4 ####[facility] LABIA [id number] [place] [address] [place] Creatinine [Mass/Vol] 1.81 mg/dL High 0.58-0.96 [facility] Comment on above: Order Comment: Speci men Type: BLOOD SPECIMENOrdering Facility: [facility] Address: [address] [place] [address] Performed By: #### 2 4323-8, 12333-1 ####[facility] LABROCK[facility] [id number] [place] [address] [place] Creatinine and Glomerular filtration rate.predicted panel (S/P/Bld) 30 mL/min/1.73m??? Low >=60 [facility] Comment on above: Order Comment: Speci men Type: BLOOD SPECIMENOrdering Facility: [facility] Address: [address] [place] [address] Result Comment: Maru mated Glomerular Filtration Rate [...] actual GFR. Performed By: #### 2 4328, ####[facility] LABCLIA [id number] [facility] HOSPITALStartupiPROVIDENCE MISSION HOSPITAL LAG[facility]NA BEACHK [id number] [place] [address] [place] Glucose [Mass/Vol] 116 mg/dL High 74-99 [facility] Comment on above: Order Comment: Marika hammonds Type: BLOOD SPECIMENOrdering Facility: [facility] Address: [address] [place] [phone] Result Comment: The [place] [employer] (ADA) provides guidance for cutoff [...] Standards of Medical Care in Diabetes 2016, [place] [employer]. Diabetes Care. 2016.39(Suppl 1). Performed By: #### 2 4323-02, ####[facility] LABCLIA [id number] [facility]OSPITALStartupiPROVIDENCE MISSION HOSPITAL LAGUNA BEACHK [address] [address] [place] Potassium [Moles/Vol] 4.4 mmol/L Normal 3.7-5.1 [facility] Comment on above: Order Comment: Marika hammonds Type: BLOOD SPECIMENOrdering Facility: [facility] Address: [address] [place] [address] Performed By: #### 2 43209-08, ####[facility] LABCLIA [id number] [facility] MUNIC[facility] HOSPITALD PATUX[id number], [place] [address] [place] Protein [Mass/Vol] 6.3 g/dL Normal 6.3-8.0 [facility] Comment on above: Order Comment: Speci men Type: BLOOD SPECIMENOrdering Facility: [facility] Address: [address] [place] [address] Performed By: #### 2 4323-8, ####[facility] LABCLIA [id number] [address] [address] [place] Sodium [Moles/Vol] 138 mmol/L Normal 136-144 [facility] Comment on above: Order Comment: Speci men Type: BLOOD SPECIMENOrdering Facility: [facility] Address: [address] [place], [place] [address] Performed By: #### 2 4323-8, ####[facility] [id number] [place] [id number] [place] Urea nitrogen [Mass/Vol] 35 mg/dL High 7-21 [facility] Comment on above: Order Comment: Speci men Type: BLOOD SPECIMENOrdering Facility: [facility] Address: [address] [place], [place] [id number] Performed By: #### 2 4323-8, ####[facility] [id number] [place] [id number] [place] Magnesium SerPl-mCncon 12-27 Magnesium [Mass/Vol] 2.2 mg/dL Normal 1.7-2.3 [facility] Comment on above: Order Comment: Speci men Type: BLOOD SPECIMENOrdering Facility: [facility] Address: [address] [address] [place], [place] [address] Performed By: #### 2 4323-8, 71488-5 ####[facility] LABIA [id number] [address] [address] [place] NUTRITIONon 12-27-2024 NUTRITION Normal [facility] XR CHEST 1V FRONTAL PORTon 0 12-27-2024 XR CHEST 1V FRONTAL PORT Normal [facility] CBC panel Auto (Bld)on 12-26 Erythrocyte distribution width (RBC) [Ratio] 13.7 % Normal 11.5-15.0 [facility] Comment on above: Order Comment: Speci men Type: BLOOD SPECIMENOrdering Facility: [facility] Address: [address] [place] [address] Performed By: #### 5 8410-2 ####[facility] LABIA [id number] [place] [address] [place] Hematocrit (Bld) [Volume fraction] 41.6 % Normal 36.0-46.0 [facility] Comment on above: Order Comment: Speci men Type: BLOOD SPECIMENOrdering Facility: [facility] Address: [address] [place] [address] Performed By: #### 5 8410-2 ####[facility]IA [id number] [place] [address] [place] Hemoglobin (Bld) [Mass/Vol] 13.7 g/dL Normal 11.5-15.5 [facility] Comment on above: Order Comment: Speci men Type: BLOOD SPECIMENOrdering Facility: [facility] Address: [address] [place] [address] Performed By: #### 5 8410-2 ####[facility] LABIA [id number] [place] [address] [place] MCH (RBC) [Entitic mass] 30.6 pg Normal 26.0-34.0 [facility] Comment on above: Order Comment: Speci men Type: BLOOD SPECIMENOrdering Facility: [facility] Address: [address] [place] [address] Performed By: #### 5 8410-2 ####[facility] LABIA [id number] [place] [address] [place] MCHC (RBC) [Mass/Vol] 32.9 g/dL Normal 30.5-36.0 [facility] Comment on above: Order Comment: Speci men Type: BLOOD SPECIMENOrdering Facility: [facility] Address: [address] [place] [address] Performed By: #### 5 8410-2 ####[facility] LABCLIA [id number] [place] [address] [place] MCV (RBC) [Entitic vol] 93.1 fL Normal 80.0-100.0 [facility] Comment on above: Order Comment: Speci men Type: BLOOD SPECIMENOrdering Facility: [facility] Address: [address] [place] [address] Performed By: #### 5 8410-2 ####[facility] LABCLIA [id number] [place] [address] [place] Nucleated RBC (Bld) [#/Vol] 10*3/uL Normal <0.01 [facility] Comment on above: Order Comment: Speci men Type: BLOOD SPECIMENOrdering Facility: [facility] Address: [address] [place] [address] Performed By: #### 5 8410-2 ####[facility] LABIA [id number] [place] [address] [place] Platelet mean volume (Bld) [Entitic vol] 11.4 fL Normal 9.0-12.7 [facility] Comment on above: Order Comment: Speci men Type: BLOOD SPECIMENOrdering Facility: [facility] Address: [address] [place] [address] Performed By: #### 5 8410-2 ####[facility] LABCLIA [id number] [place] [address] [place] Platelets (Bld) [#/Vol] 349 10*3/uL Normal 150-400 [facility] Comment on above: Order Comment: Speci men Type: BLOOD SPECIMENOrdering Facility: [facility] Address: [address] [place] [address] Performed By: #### 5 8410-2 ####[facility] LABCLIA [id number] [address] [place] [address] [place] RBC (Bld) [#/Vol] 4.47 10*6/uL Normal 3.90-5.20 [facility] Comment on above: Order Comment: Speci men Type: BLOOD SPECIMENOrdering Facility: [facility] Address: [address] [place] [address] Performed By: #### 5 8410-2 ####[facility]IA [id number] [address] [address] [place] WBC (Bld) [#/Vol] 10.15 10*3/uL Normal 3.70-11.00 [facility] Comment on above: Order Comment: Speci men Type: BLOOD SPECIMENOrdering Facility: [facility] Address: [address] [place] [address] Performed By: #### 5 8410-2 ####[facility]IA [id number] [address] [address] [place] [facility] Comprehensive metabolic 2000 panelon 12-26-2024 Albumin [Mass/Vol] 3.5 g/dL Low 3.9-4.9 [facility] Comment on above: Order Comment: Speci men Type: BLOOD SPECIMENOrdering Facility: [facility] Address: [address] [place], [place] [address] Performed By: #### 2 4323-8, 49499-6 ####[facility]IA [id number] [address] [place] [address] [place] ALP [Catalytic activity/Vol] 80 U/L Normal 34-123 [facility] Comment on above: Order Comment: Speci men Type: BLOOD SPECIMENOrdering Facility: [facility] Address: [address] [place], [place] [address] Performed By: #### 2 4323-8, 41488-3 ####[facility] LABIA [id number] [address] [place] [address] [place] ALT [Catalytic activity/Vol] 22 U/L Normal 7-38 [facility] Comment on above: Order Comment: Speci men Type: BLOOD SPECIMENOrdering Facility: [facility] Address: [address] [place], [place] [address] Performed By: #### 2 4323-8, ####[facility] LABCLIA [id number] [facility] [place] [facility] [address] [place] [address] [place] Anion gap [Moles/Vol] 14 mmol/L Normal 8-15 [facility] Comment on above: Order Comment: Speci men Type: BLOOD SPECIMENOrdering Facility: [facility] Address: [address] [place] [address] Performed By: #### 2 432-8, ####[facility] LABCLIA [id number] [place] [id number] [place] AST [Catalytic activity/Vol] 17 U/L Normal 13-35 [facility] Comment on above: Order Comment: Speci men Type: BLOOD SPECIMENOrdering Facility: [facility] Address: [address] [place] [address] Performed By: #### 2 4328, ####[facility] LABCLIA [id number] [address] [place] [address] [place] Bilirubin [Mass/Vol] 0.2 mg/dL Normal 0.2-1.3 [facility] Comment on above: Order Comment: Speci men Type: BLOOD SPECIMENOrdering Facility: [facility] Address: [address] [place] [address] Performed By: #### 2 4323-8, ####[facility] LABCLIA [id number] [facility] [place] [address] [place] [address] [place] Calcium [Mass/Vol] 9.4 mg/dL Normal 8.5-10.2 [facility] Comment on above: Order Comment: Speci men Type: BLOOD SPECIMENOrdering Facility: [facility] Address: [address] [place], [place] [address] Performed By: #### 2 4323-8, ####[facility] LABCLIA [id number] [address] [address] [place] Chloride [Moles/Vol] 107 mmol/L Normal 98-107 [facility] Comment on above: Order Comment: Speci men Type: BLOOD SPECIMENOrdering Facility: [facility] Address: [address] [place] [address] Performed By: #### 2 4323-8, ####[facility] LABCLIA [id number] [place] [address] [place] CO2 [Moles/Vol] 18 mmol/L Low 22-30 [facility] Comment on above: Order Comment: Speci men Type: BLOOD SPECIMENOrdering Facility: [facility] Address: [address] [place] [address] Performed By: #### 2 4323-8, ####[facility] LABCLIA [id number] [place] [address] [place] Creatinine [Mass/Vol] 1.96 mg/dL High 0.58-0.96 [facility] Comment on above: Order Comment: Speci men Type: BLOOD SPECIMENOrdering Facility: [facility] Address: [address] [place], [place] [address] Performed By: #### 2 4323-8, ####[facility] LABCLIA [id number] [place] [id number] [place] Creatinine and Glomerular filtration rate.predicted panel (S/P/Bld) 27 mL/min/1.73m??? Low >=60 [facility] Comment on above: Order Comment: Speci men Type: BLOOD SPECIMENOrdering Facility: [facility] Address: [address] [place], [place] [address] Result Comment: Maru mated Glomerular Filtration Rate [...] actual GFR. Performed By: #### 2 4323-8, ####[facility] LABCLIA [id number] [place] [address] [place] Glucose [Mass/Vol] 114 mg/dL High 74-99 [facility] Comment on above: Order Comment: Marika hammonds Type: BLOOD SPECIMENOrdering Facility: [facility] Address: [address] [place] [address] Result Comment: The [place] [employer] (ADA) provides guidance for cutoff [...] Standards of Medical Care in Diabetes 2016, [place] [employer]. Diabetes Care. 2016.39(Suppl 1). Performed By: #### 2 4323-8, ####[facility] LABIA [id number] [address] [address] [place] Potassium [Moles/Vol] 4.6 mmol/L Normal 3.7-5.1 [facility] Comment on above: Order Comment: Marika hammonds Type: BLOOD SPECIMENOrdering Facility: [facility] Address: [address] [place] [address] Performed By: #### 2 4323-8, ####[facility] LABCLIA [id number] [address] [place] [address] [place] Protein [Mass/Vol] 6.6 g/dL Normal 6.3-8.0 [facility] Comment on above: Order Comment: Speci men Type: BLOOD SPECIMENOrdering Facility: [facility] Address: [address] [place] [address] Performed By: #### 2 4323-8, 60197-4 ####[facility] LABCLIA [id number] [address] [place] [address] [place] Sodium [Moles/Vol] 139 mmol/L Normal 136-144 [facility] Comment on above: Order Comment: Speci men Type: BLOOD SPECIMENOrdering Facility: [facility] Address: [address] [place] [address] Performed By: #### 2 4323-8, 74482-5 ####[facility] LABCLIA [id number] [address], [facility] [place] Urea nitrogen [Mass/Vol] 36 mg/dL High 7-21 [facility] Comment on above: Order Comment: Speci men Type: BLOOD SPECIMENOrdering Facility: [facility] Address: [address] [place] [address] Performed By: #### 2 4323-8, 37822-6 ####[facility] LABCLIA [id number] [address] [place] [address] [place] Magnesium SerPl-mCncon 12-26 Magnesium [Mass/Vol] 2.3 mg/dL Normal 1.7-2.3 [facility] Comment on above: Order Comment: Speci men Type: BLOOD SPECIMENOrdering Facility: [facility] Address: [address] [place] [address] Performed By: #### 2 4323-8, 46667-7 ####[facility] LABCLIA [id number] [address] [place] [address] [place] THERAPY NTon 12-26-2024 THERAPY NT Normal [facility] THERAPY NT Normal [facility] XR CHEST 1V FRONTALon 2024 XR CHEST 1V FRONTAL Normal [facility] CBC panel Auto (Bld)on 12-25 Erythrocyte distribution width (RBC) [Ratio] 13.4 % Normal 11.5-15.0 [facility] Comment on above: Order Comment: Speci men Type: BLOOD SPECIMENOrdering Facility: [facility] Address: [address] [place] [address] Performed By: #### 5 8410-2 ####[facility] LABIA [id number] [place] [address] [place] Hematocrit (Bld) [Volume fraction] 44.3 % Normal 36.0-46.0 [facility] Comment on above: Order Comment: Speci men Type: BLOOD SPECIMENOrdering Facility: [facility] Address: [address] [place] [address] Performed By: #### 5 8410-2 ####[facility] LABIA [id number] [place] [address] [place] Hemoglobin (Bld) [Mass/Vol] 14.3 g/dL Normal 11.5-15.5 [facility] Comment on above: Order Comment: Speci men Type: BLOOD SPECIMENOrdering Facility: [facility] Address: [address] [place] [address] Performed By: #### 5 8410-2 ####[facility] LABCLIA [id number] [place] [address] [place] MCH (RBC) [Entitic mass] 30.1 pg Normal 26.0-34.0 [facility] Comment on above: Order Comment: Speci men Type: BLOOD SPECIMENOrdering Facility: [facility] Address: [address] [place] [address] Performed By: #### 5 8410-2 ####[facility] LABCLIA [id number] [place] [address] [place] MCHC (RBC) [Mass/Vol] 32.3 g/dL Normal 30.5-36.0 [facility] Comment on above: Order Comment: Speci men Type: BLOOD SPECIMENOrdering Facility: [facility] Address: [address] [place] [address] Performed By: #### 5 8410-2 ####[facility] LABIA [id number] [place] [address] [place] MCV (RBC) [Entitic vol] 93.3 fL Normal 80.0-100.0 [facility] Comment on above: Order Comment: Speci men Type: BLOOD SPECIMENOrdering Facility: [facility] Address: [address] [place] [address] Performed By: #### 5 8410-2 ####[facility] LABCLIA [id number] [place] [address] [place] Nucleated RBC (Bld) [#/Vol] 10*3/uL Normal <0.01 [facility] Comment on above: Order Comment: Speci men Type: BLOOD SPECIMENOrdering Facility: [facility] Address: [address] [place] [address] Performed By: #### 5 8410-2 ####[facility] LABIA [id number] [place] [address] [place] Platelet mean volume (Bld) [Entitic vol] 10.8 fL Normal 9.0-12.7 [facility] Comment on above: Order Comment: Speci men Type: BLOOD SPECIMENOrdering Facility: [facility] Address: [address] [place] [address] Performed By: #### 5 8410-2 ####[facility] LABCLIA [id number] [place] [address] [place] Platelets (Bld) [#/Vol] 378 10*3/uL Normal 150-400 [facility] Comment on above: Order Comment: Speci men Type: BLOOD SPECIMENOrdering Facility: [facility] Address: [address] [place] [address] Performed By: #### 5 8410-2 ####[facility] LABCLIA [id number] [address] [address] [place] RBC (Bld) [#/Vol] 4.75 10*6/uL Normal 3.90-5.20 [facility] Comment on above: Order Comment: Speci men Type: BLOOD SPECIMENOrdering Facility: [facility] Address: [address] [place] [address] Performed By: #### 5 8410-2 ####[facility] LABCLIA [id number] [place] [address] [place] WBC (Bld) [#/Vol] 9.06 10*3/uL Normal 3.70-11.00 [facility] Comment on above: Order Comment: Speci men Type: BLOOD SPECIMENOrdering Facility: [facility] Address: [address] [place] [address] Performed By: #### 5 8410-2 ####[facility] LABCLIA [id number] [place] [id number] [place] CONSULTon 12-25-2024 CONSULT Normal [facility] Comprehensive metabolic 2000 panelon 12-25-2024 Albumin [Mass/Vol] 3.5 g/dL Low 3.9-4.9 [facility] Comment on above: Order Comment: Speci men Type: BLOOD SPECIMENOrdering Facility: [facility] Address: [address] [place] [address] Performed By: #### 2 4323-8, 37503-8 ####[facility] LABCLIA [id number] [place] [id number] [place] ALP [Catalytic activity/Vol] 67 U/L Normal 34-123 [facility] Comment on above: Order Comment: Speci men Type: BLOOD SPECIMENOrdering Facility: [facility] Address: [address] [place] [address] Performed By: #### 2 4322-8, ####[facility] LABCLIA [id number] [address] [address] [place] ALT [Catalytic activity/Vol] 22 U/L Normal 7-38 [facility] Comment on above: Order Comment: Speci men Type: BLOOD SPECIMENOrdering Facility: [facility] Address: [address] [place], [place] [address] Performed By: #### 2 4322-8, ####[facility] LABCLIA [id number] [place] [id number] [place] Anion gap [Moles/Vol] 13 mmol/L Normal 8-15 [facility] Comment on above: Order Comment: Speci men Type: BLOOD SPECIMENOrdering Facility: [facility] Address: [address] [place], [place] [address] Performed By: #### 2 8, ####[facility] LABCLIA [id number] [place] [id number] [place] AST [Catalytic activity/Vol] 17 U/L Normal 13-35 [facility] Comment on above: Order Comment: Speci men Type: BLOOD SPECIMENOrdering Facility: [facility] Address: [address] [place], [place] [address] Performed By: #### 2 4322-8, ####[facility] LABCLIA [id number] [address] [address] [place] Bilirubin [Mass/Vol] 0.3 mg/dL Normal 0.2-1.3 [facility] Comment on above: Order Comment: Speci men Type: BLOOD SPECIMENOrdering Facility: [facility] Address: [address] [place], [place] [address] Performed By: #### 2 4322-8, ####[facility] LABCLIA [id number] [facility] [id number] [address] [place] Calcium [Mass/Vol] 9.5 mg/dL Normal 8.5-10.2 [facility] Comment on above: Order Comment: Speci men Type: BLOOD SPECIMENOrdering Facility: [facility] Address: [address] [place] [address] Performed By: #### 2 4323-02, ####[facility] LABCLIA [id number] [facility] [address] [place] [address] [place] Chloride [Moles/Vol] 103 mmol/L Normal 98-107 [facility] Comment on above: Order Comment: Speci men Type: BLOOD SPECIMENOrdering Facility: [facility] Address: [address] [place] [address] Performed By: #### 2 4323-02, ####[facility] LABCLIA [id number] [facility] [address] [place] [address] [place] CO2 [Moles/Vol] 22 mmol/L Normal 22-30 [facility] Comment on above: Order Comment: Speci men Type: BLOOD SPECIMENOrdering Facility: [facility] Address: [address] [place], [place] [address] Performed By: #### 2 4323-02, ####[facility] LABCLIA [id number] [facility] [address] [place] [address] [place] Creatinine [Mass/Vol] 1.71 mg/dL High 0.58-0.96 [facility] Comment on above: Order Comment: Speci men Type: BLOOD SPECIMENOrdering Facility: [facility] Address: [address] [place], [place] [address] Performed By: #### 2 [address]-08, ####[facility] LABCLIA [id number] [facility] [address] [place] [address] [place] Creatinine and Glomerular filtration rate.predicted panel (S/P/Bld) 32 mL/min/1.73m??? Low >=60 [facility] Comment on above: Order Comment: Marika hammonds Type: BLOOD SPECIMENOrdering Facility: [facility] Address: [address] [place] [address] Result Comment: Maru mated Glomerular Filtration Rate [...] actual GFR. Performed By: #### 2 4323-8, ####[facility] LABCLIA [id number] [place] [id number] [place] Glucose [Mass/Vol] 97 mg/dL Normal 74-99 [facility] Comment on above: Order Comment: Marika hammonds Type: BLOOD SPECIMENOrdering Facility: [facility] Address: [address] [place] [address] Result Comment: The [place] [employer] (ADA) provides guidance for cutoff [...] Standards of Medical Care in Diabetes 2016, [place] [employer]. Diabetes Care. 2016.39(Suppl 1). Performed By: #### 2 4323-8, ####[facility] LABCLIA [id number] [address] [address] [place] Potassium [Moles/Vol] 4.1 mmol/L Normal 3.7-5.1 [facility] Comment on above: Order Comment: Speci men Type: BLOOD SPECIMENOrdering Facility: [facility] Address: [address] [place] [address] Performed By: #### 2 4323-8, ####[facility] LABCLIA [id number] [address] [address] [place] Protein [Mass/Vol] 6.7 g/dL Normal 6.3-8.0 [facility] Comment on above: Order Comment: Speci men Type: BLOOD SPECIMENOrdering Facility: [facility] Address: [address] [place] [address] Performed By: #### 2 432-8, ####[facility] LABCLIA [id number] [place] [id number] [place] Sodium [Moles/Vol] 138 mmol/L Normal 136-144 [facility] Comment on above: Order Comment: Speci men Type: BLOOD SPECIMENOrdering Facility: [facility] Address: [address] [place] [address] Performed By: #### 2 4322-8, ####[facility] LABCLIA [id number] [place] [address] [place] Urea nitrogen [Mass/Vol] 33 mg/dL High 7-21 [facility] Comment on above: Order Comment: Speci men Type: BLOOD SPECIMENOrdering Facility: [facility] Address: [address] [place] [address] Performed By: #### 2 4323-8, ####[facility] LABCLIA [id number] [place] [id number] [place] Magnesium SerPl-mCncon 12-25 Magnesium [Mass/Vol] 2.3 mg/dL Normal 1.7-2.3 [facility] Comment on above: Order Comment: Speci men Type: BLOOD SPECIMENOrdering Facility: [facility] Address: [address] [place] [address] Performed By: #### 2 4323-8, 41727-6 ####[facility] LABCLIA [id number] [place] [address] [place] XR CHEST 1V FRONTALon 2024 XR CHEST 1V FRONTAL Normal [facility] CASE MANAGEMon 12-24-2024 CASE MANAGEM Normal [facility] CBC panel Auto (Bld)on 12-24 Erythrocyte distribution width (RBC) [Ratio] 13.2 % Normal 11.5-15.0 [facility] Comment on above: Order Comment: Speci men Type: BLOOD SPECIMENOrdering Facility: [facility] Address: [address] [place] [address] Performed By: #### 5 8410-2 ####[facility] LABCLIA [id number] [place] [address] [place] Hematocrit (Bld) [Volume fraction] 42.1 % Normal 36.0-46.0 [facility] Comment on above: Order Comment: Speci men Type: BLOOD SPECIMENOrdering Facility: [facility] Address: [address] [place] [address] Performed By: #### 5 8410-2 ####[facility] LABCLIA [id number] [place] [address] [place] Hemoglobin (Bld) [Mass/Vol] 14.2 g/dL Normal 11.5-15.5 [facility] Comment on above: Order Comment: Speci men Type: BLOOD SPECIMENOrdering Facility: [facility] Address: [address] [place] [address] Performed By: #### 5 8410-2 ####[facility] LABCLIA [id number] [place] [id number] [place] MCH (RBC) [Entitic mass] 30.7 pg Normal 26.0-34.0 [facility] Comment on above: Order Comment: Speci men Type: BLOOD SPECIMENOrdering Facility: [facility] Address: [address] [place] [address] Performed By: #### 5 8410-2 ####[facility] LABIA [id number] [place] [address] [place] MCHC (RBC) [Mass/Vol] 33.7 g/dL Normal 30.5-36.0 [facility] Comment on above: Order Comment: Speci men Type: BLOOD SPECIMENOrdering Facility: [facility] Address: [address] [place] [address] Performed By: #### 5 8410-2 ####[facility] LABIA [id number] [place] [address] [place] MCV (RBC) [Entitic vol] 90.9 fL Normal 80.0-100.0 [facility] Comment on above: Order Comment: Speci men Type: BLOOD SPECIMENOrdering Facility: [facility] Address: [address] [place] [address] Performed By: #### 5 8410-2 ####[facility] LABIA [id number] [place] [address] [place] Nucleated RBC (Bld) [#/Vol] 10*3/uL Normal <0.01 [facility] Comment on above: Order Comment: Speci men Type: BLOOD SPECIMENOrdering Facility: [facility] Address: [address] [place] [address] Performed By: #### 5 8410-2 ####[facility] LABIA [id number] [place] [address] [place] Platelet mean volume (Bld) [Entitic vol] 10.9 fL Normal 9.0-12.7 [facility] Comment on above: Order Comment: Speci men Type: BLOOD SPECIMENOrdering Facility: [facility] Address: [address] [place] [address] Performed By: #### 5 8410-2 ####[facility] LABIA [id number] [address] [place] [address] [place] Platelets (Bld) [#/Vol] 347 10*3/uL Normal 150-400 [facility] Comment on above: Order Comment: Speci men Type: BLOOD SPECIMENOrdering Facility: [facility] Address: [address] [place] [address] Performed By: #### 5 8410-2 ####[facility] LABIA [id number] [address] [address] [place] RBC (Bld) [#/Vol] 4.63 10*6/uL Normal 3.90-5.20 [facility] Comment on above: Order Comment: Speci men Type: BLOOD SPECIMENOrdering Facility: [facility] Address: [address] [place] [address] Performed By: #### 5 8410-2 ####[facility] [id number] [address] [address] [place] WBC (Bld) [#/Vol] 10.86 10*3/uL Normal 3.70-11.00 [facility] Comment on above: Order Comment: Speci men Type: BLOOD SPECIMENOrdering Facility: [facility] Address: [address] [place] [address] Performed By: #### 5 8410-2 ####[facility] [id number] [address] [address] [place] CONSULT PROGon 12-24-2024 CONSULT PROG Normal [facility] Comprehensive metabolic 2000 panelon 12-24-2024 Albumin [Mass/Vol] 3.4 g/dL Low 3.9-4.9 [facility] Comment on above: Order Comment: Speci men Type: BLOOD SPECIMENOrdering Facility: [facility] Address: [address] [place] [address] Performed By: #### 2 4323-8, 42640-4, 67265-1, 2777-1 ####[facility] LABCLIA [id number] [place] [address] [place] ALP [Catalytic activity/Vol] 69 U/L Normal 34-123 [facility] Comment on above: Order Comment: Speci men Type: BLOOD SPECIMENOrdering Facility: [facility] Address: [address] [place] [address] Performed By: #### 2 4323-8, 73517-3, 29221-1, 2777-1 ####[facility] LABCLIA [id number] [place] [address] [place] ALT [Catalytic activity/Vol] 25 U/L Normal 7-38 [facility] Comment on above: Order Comment: Speci men Type: BLOOD SPECIMENOrdering Facility: [facility] Address: [address] [place] [address] Performed By: #### 2 4323-8, 97823-7, 31723-9, 2777-1 ####[facility] LABCLIA [id number] [place] [address] [place] Anion gap [Moles/Vol] 13 mmol/L Normal 8-15 [facility] Comment on above: Order Comment: Speci men Type: BLOOD SPECIMENOrdering Facility: [facility] Address: [address] [place] [address] Performed By: #### 2 4323-8, 61668-6, 92254-0, 2777-1 ####[facility] LABCLIA [id number] [place] [id number] [place] AST [Catalytic activity/Vol] 18 U/L Normal 13-35 [facility] Comment on above: Order Comment: Speci men Type: BLOOD SPECIMENOrdering Facility: [facility] Address: [address] [place] [address] Performed By: #### 2 4323-8, 55740-9, 70536-1, 2777-1 ####[facility] LABCLIA [id number] [address] [address] [place] Bilirubin [Mass/Vol] 0.4 mg/dL Normal 0.2-1.3 [facility] Comment on above: Order Comment: Speci men Type: BLOOD SPECIMENOrdering Facility: [facility] Address: [address] [place] [address] Performed By: #### 2 4323-8, 77223-4, 11352-0, 2777-1 ####[facility] LABCLIA [id number] [place] [id number] [place] Calcium [Mass/Vol] 9.7 mg/dL Normal 8.5-10.2 [facility] Comment on above: Order Comment: Speci men Type: BLOOD SPECIMENOrdering Facility: [facility] Address: [address] [place] [address] Performed By: #### 2 4323-8, 21337-0, 13630-9, 2777-1 ####[facility] LABCLIA [id number] [place] [id number] [place] Chloride [Moles/Vol] 102 mmol/L Normal 98-107 [facility] Comment on above: Order Comment: Speci men Type: BLOOD SPECIMENOrdering Facility: [facility] Address: [address] [place], [place] [address] Performed By: #### 2 4323-8, 70239-1, 36324-6, 2777-1 ####[facility] LABCLIA [id number] [place] [id number] [place] CO2 [Moles/Vol] 23 mmol/L Normal 22-30 [facility] Comment on above: Order Comment: Speci men Type: BLOOD SPECIMENOrdering Facility: [facility] Address: [address] [place] [address] Performed By: #### 2 4323-8, , 24873-0, 2777-1 ####[facility] LABIA [id number] [place] [id number] [place] Creatinine [Mass/Vol] 1.66 mg/dL High 0.58-0.96 [facility] Comment on above: Order Comment: Speci men Type: BLOOD SPECIMENOrdering Facility: [facility] Address: [address] [place] [address] Performed By: #### 2 4323-8, , 91773-9, 2777- ####[facility] [id number] [place] [address] [place] Creatinine and Glomerular filtration rate.predicted panel (S/P/Bld) 33 mL/min/1.73m??? Low >=60 [facility] Comment on above: Order Comment: Marika hammonds Type: BLOOD SPECIMENOrdering Facility: [facility] Address: [address] [place] [address] Result Comment: Maru mated Glomerular Filtration Rate [...] GFR. Performed By: #### 2 4323-8, , 54466-5, 2777- ####[facility] [id number] [address] [address] [place] Glucose [Mass/Vol] 111 mg/dL High 74-99 [facility] Comment on above: Order Comment: Marika hammonds Type: BLOOD SPECIMENOrdering Facility: [facility] Address: [address] [place] [address] Result Comment: The [place] [employer] (ADA) provides guidance for cutoff [...] Standards of Medical Care in Diabetes 2016, [place] [employer]. Diabetes Care. 2016.39(Suppl 1). Performed By: #### 2 4323-8, 98384-7, 99806-5, 2777-1 ####[facility] LABIA [id number] [place] [id number] [place] Potassium [Moles/Vol] 4.1 mmol/L Normal 3.7-5.1 [facility] Comment on above: Order Comment: Speci men Type: BLOOD SPECIMENOrdering Facility: [facility] Address: [address] [place] [address] Performed By: #### 2 4323-8, 96375-3, 46098-7, 2777-1 ####[facility] [id number] [place] [id number] [place] Protein [Mass/Vol] 6.3 g/dL Normal 6.3-8.0 [facility] Comment on above: Order Comment: Cobyi cassius Type: BLOOD SPECIMENOrdering Facility: [facility] Address: [address] [place] [address] Performed By: #### 2 4323-8, 58843-9, 40599-7, 2777-1 ####[facility] LABIA [id number] [place] [id number] [place] Sodium [Moles/Vol] 138 mmol/L Normal 136-144 [facility] Comment on above: Order Comment: Speci men Type: BLOOD SPECIMENOrdering Facility: [facility] Address: [address] [place] [address] Performed By: #### 2 4323-8, 79689-7, 57849-2, 2777-1 ####[facility] LABCLIA [id number] [place] [address] [place] Urea nitrogen [Mass/Vol] 41 mg/dL High 7-21 [facility] Comment on above: Order Comment: Speci men Type: BLOOD SPECIMENOrdering Facility: [facility] Address: [address] [place] [address] Performed By: #### 2 4323-8, 32383-4, 06162-8, 2777-1 ####[facility] LABCLIA [id number] [place] [address] [place] HISTORY PHYSICALon HISTORY PHYSICAL Normal [facility] Magnesium [facility] Magnesium [Mass/Vol] 2.3 mg/dL Normal 1.7-2.3 [facility] Comment on above: Order Comment: Speci men Type: BLOOD SPECIMENOrdering Facility: [facility] Address: [address] [place] [address] Performed By: #### 2 4323-8, 04448-0, 84554-5, 2777-1 ####[facility] LABCLIA [id number] [place] [address] [place] NM PET/CT CARD PERF REST/STR ESSon 12-24-2024 NM PET/CT CARD PERF REST/STRESS Normal [facility] NT-proBNP [facility]-24 Natriuretic peptide.B prohormone N-Terminal [Mass/Vol] 4009 pg/mL High <125 [facility] Comment on above: Order Comment: Speci men Type: BLOOD SPECIMENOrdering Facility: [facility] Address: [address] [place] [address] Performed By: #### 2 4323-8, 60285-5, 51330-5, 2777-1 ####[facility] LABCLIA [id number] [place] [address] [place] NURSING PROGon 12-24-2024 NURSING PROG Normal [facility] NURSING PROG Normal [facility] Phosphate SerPl-mCncon 12-24 Phosphate [Mass/Vol] 5.0 mg/dL High 2.7-4.8 [facility] Comment on above: Order Comment: Speci men Type: BLOOD SPECIMENOrdering Facility: [facility] Address: [address] [place] [address] Performed By: #### 2 4323-8, 77912-9, 22831-2, 2777-1 ####[facility] LABCLIA [id number] [place] [address] [place] [facility] TYPE + SCREENon 12-24-2024 ABO O Normal [facility] Comment on above: Order Comment: Speci men Type: BLOOD SPECIMENOrdering Facility: [facility] Address: [address] [place] [address] Performed By: #### T SCR ####CC MAIN BLOOD BANKCLIA [id number] [place] [address] [place] Rh Nom (Bld) Positive Normal [facility] Comment on above: Order Comment: Speci men Type: BLOOD SPECIMENOrdering Facility: [facility] Address: [address] [place] [address] Performed By: #### T SCR ####CC MAIN BLOOD BANKCLIA [id number] [place] [address] [place] TYPE AND SCREEN EXPIRATION 12/27/2024 23:59 Normal [facility] Comment on above: Order Comment: Speci men Type: BLOOD SPECIMENOrdering Facility: [facility] Address: [address] [place] [address] Performed By: #### T SCR ####CC MAIN BLOOD BANKCLIA [id number] [place] [address] [place] Urinalysis complete panel (U )on 12-24-2024 Bacteria LM.HPF (Urine sed) [#/Area] Negative Normal Negative [facility] Comment on above: Order Comment: Speci men Type: URINE SPECIMENOrdering Facility: [facility] Address: [address] [place] [address] Performed By: #### 2 4356-8 ####[facility] LABCLIA [id number] [place] [address] [place] Bilirubin Ql (U) Negative Normal Negative [facility] Comment on above: Order Comment: Speci men Type: URINE SPECIMENOrdering Facility: [facility] Address: [address] [place] [address] Performed By: #### 2 4356-8 ####[facility] LABCLIA [id number] [place] [address] [place] Clarity (Unsp spec) Clear Normal Clear [facility] Comment on above: Order Comment: Speci men Type: URINE SPECIMENOrdering Facility: [facility] Address: [address] [place] [address] Performed By: #### 2 4356-8 ####[facility] LABCLIA [id number] [place] [address] [place] Color (U) Yellow Normal Yellow [facility] Comment on above: Order Comment: Speci men Type: URINE SPECIMENOrdering Facility: [facility] Address: [address] [place] [address] Performed By: #### 2 4356-8 ####[facility] LABCLIA [id number] [place] [id number] [place] Epithelial cells LM.HPF (Urine sed) [#/Area] None Seen Normal [facility] Comment on above: Order Comment: Speci men Type: URINE SPECIMENOrdering Facility: [facility] Address: [address] [place] [address] Performed By: #### 2 4356-8 ####[facility] LABCLIA [id number] [address] [place] [address] [place] Glucose Test strip (U) [Mass/Vol] 1+ Abnormal Negative [facility] Comment on above: Order Comment: Speci men Type: URINE SPECIMENOrdering Facility: [facility] Address: [address] [place] [address] Performed By: #### 2 4356-8 ####[facility] LABCLIA [id number] [place] [address] [place] Hemoglobin Ql (U) Negative Normal Negative [facility] Comment on above: Order Comment: Speci men Type: URINE SPECIMENOrdering Facility: [facility] Address: [address] [place] [address] Performed By: #### 2 4356-8 ####[facility] LABCLIA [id number] [place] [address] [place] Hyaline casts (Urine sed) [#/Area] 4-10 /LPF Abnormal 0 /LPF [facility] Comment on above: Order Comment: Speci men Type: URINE SPECIMENOrdering Facility: [facility] Address: [address] [place] [address] Performed By: #### 2 4356-8 ####[facility] LABCLIA [id number] [place] [address] [place] Ketones Ql (U) Negative Normal Negative [facility] Comment on above: Order Comment: Speci men Type: URINE SPECIMENOrdering Facility: [facility] Address: [address] [place] [address] Performed By: #### 2 4356-8 ####[facility] LABCLIA [id number] [place] [address] [place] Leukocyte esterase Test strip Ql (U) Trace Abnormal Negative [facility] Comment on above: Order Comment: Speci men Type: URINE SPECIMENOrdering Facility: [facility] Address: [address] [place] [address] Performed By: #### 2 4356-8 ####[facility] LABCLIA [id number] [place] [address] [place] Nitrite Ql (U) Negative Normal Negative [facility] Comment on above: Order Comment: Speci men Type: URINE SPECIMENOrdering Facility: [facility] Address: [address] [place] [address] Performed By: #### 2 4356-8 ####[facility] LABCLIA [id number] [address], [place] [address] [place] pH (U) 5.5 [pH] Normal <8.5 [facility] Comment on above: Order Comment: Speci men Type: URINE SPECIMENOrdering Facility: [facility] Address: [address] [place] [address] Performed By: #### 2 4356-8 ####[facility] LABCLIA [id number] [place] [address] [place] Protein (U) [Mass/Vol] Negative Normal Negative [facility] Comment on above: Order Comment: Speci men Type: URINE SPECIMENOrdering Facility: [facility] Address: [address] [place] [address] Performed By: #### 2 4356-8 ####[facility] LABIA [id number] [place] [address] [place] RBC LM.HPF (Urine sed) [#/Area] 0-2 /HPF Normal 0-2 /HPF [facility] Comment on above: Order Comment: Speci men Type: URINE SPECIMENOrdering Facility: [facility] Address: [address] [place] [address] Performed By: #### 2 4356-8 ####[facility] LABCLIA [id number] [place] [id number] [place] Specific gravity (U) [Rel density] 1.017 Normal 1.005-1.030 [facility] Comment on above: Order Comment: Speci men Type: URINE SPECIMENOrdering Facility: [facility] Address: [address] [place] [address] Performed By: #### 2 4356-8 ####[facility] LABIA [id number] [address] [address] [place] Urobilinogen Ql (U) 0.2 EU/dL Normal 0.2-1.0 EU/dL [facility] Comment on above: Order Comment: Speci men Type: URINE SPECIMENOrdering Facility: [facility] Address: [address] [place] [address] Performed By: #### 2 4356-8 ####[facility] LABIA [id number] [place] [address] [place] WBC LM.HPF (Urine sed) [#/Area] 0-5 /HPF Normal 0-5 /HPF [facility] Comment on above: Order Comment: Speci men Type: URINE SPECIMENOrdering Facility: [facility] Address: [address] [place] [address] Performed By: #### 2 4356-8 ####[facility] LABIA [id number] [place] [address] [place] XR CHEST 1V FRONTAL PORTon 0 12-24-2024 XR CHEST 1V FRONTAL PORT Normal [facility] CBC panel Auto (Bld)on 12-23 Erythrocyte distribution width (RBC) [Ratio] 13.2 % Normal 11.5-15.0 [facility] Comment on above: Order Comment: Speci men Type: BLOOD SPECIMENOrdering Facility: [facility] Address: [address] [place] [address] Performed By: #### 5 8410-2 ####[facility] LABIA [id number] [place] [address] [place] Hematocrit (Bld) [Volume fraction] 39.2 % Normal 36.0-46.0 [facility] Comment on above: Order Comment: Speci men Type: BLOOD SPECIMENOrdering Facility: [facility] [facility] Address: [address] [place] [address] Performed By: #### 5 8410-2 ####[facility] LABIA [id number] [place] [id number] [place] Hemoglobin (Bld) [Mass/Vol] 13.2 g/dL Normal 11.5-15.5 [facility] Comment on above: Order Comment: Speci men Type: BLOOD SPECIMENOrdering Facility: [facility] Address: [address] [place] [address] Performed By: #### 5 8410-2 ####[facility] LABIA [id number] [place] [address] [place] MCH (RBC) [Entitic mass] 30.8 pg Normal 26.0-34.0 [facility] Comment on above: Order Comment: Speci men Type: BLOOD SPECIMENOrdering Facility: [facility] Address: [address] [place] [address] Performed By: #### 5 8410-2 ####[facility] [id number] [place] [address] [place] MCHC (RBC) [Mass/Vol] 33.7 g/dL Normal 30.5-36.0 [facility] Comment on above: Order Comment: Speci men Type: BLOOD SPECIMENOrdering Facility: [facility] Address: [address] [place] [address] Performed By: #### 5 8410-2 ####[facility] [id number] [place] [address] [place] MCV (RBC) [Entitic vol] 91.4 fL Normal 80.0-100.0 [facility] Comment on above: Order Comment: Speci men Type: BLOOD SPECIMENOrdering Facility: [facility] Address: [address] [place] [address] Performed By: #### 5 8410-2 ####[facility] LABCLIA [id number] [address] [place] [address] [place] Nucleated RBC (Bld) [#/Vol] 10*3/uL Normal <0.01 [facility] Comment on above: Order Comment: Speci men Type: BLOOD SPECIMENOrdering Facility: [facility] Address: [address] [place] [address] Performed By: #### 5 8410-2 ####[facility] LABCLIA [id number] [address] [place] [address] [place] Platelet mean volume (Bld) [Entitic vol] 11.2 fL Normal 9.0-12.7 [facility] Comment on above: Order Comment: Speci men Type: BLOOD SPECIMENOrdering Facility: [facility] Address: [address] [place] [address] Performed By: #### 5 8410-2 ####[facility] LABCLIA [id number] [address] [place] [address] [place] Platelets (Bld) [#/Vol] 332 10*3/uL Normal 150-400 [facility] Comment on above: Order Comment: Speci men Type: BLOOD SPECIMENOrdering Facility: [facility] Address: [address] [place] [address] Performed By: #### 5 8410-2 ####[facility] LABCLIA [id number] [facility] [place] [facility] [address] [place] [address] [place] RBC (Bld) [#/Vol] 4.29 10*6/uL Normal 3.90-5.20 [facility] Comment on above: Order Comment: Speci men Type: BLOOD SPECIMENOrdering Facility: [facility] Address: [address] [place] [address] Performed By: #### 5 8410-2 ####[facility] LABCLIA [id number] [address] [place] [address] [place] WBC (Bld) [#/Vol] 10.37 10*3/uL Normal 3.70-11.00 [facility] Comment on above: Order Comment: Speci men Type: BLOOD SPECIMENOrdering Facility: [facility] Address: [address] [place] [address] Performed By: #### 5 8410-2 ####[facility] LABCLIA [id number] [address], [facility] [place] CONSULT PROGon 12-23-2024 CONSULT PROG Normal [facility] Comprehensive metabolic 2000 panelon 12-23-2024 Albumin [Mass/Vol] 3.2 g/dL Low 3.9-4.9 [facility] Comment on above: Order Comment: Speci men Type: BLOOD SPECIMENOrdering Facility: [facility] Address: [address] [place] [address] Performed By: #### 2 4323-8, ####[facility] LABCLIA [id number] [address] [place] [address] [place] ALP [Catalytic activity/Vol] 80 U/L Normal 34-123 [facility] Comment on above: Order Comment: Speci men Type: BLOOD SPECIMENOrdering Facility: [facility] Address: [address] [place] [address] Performed By: #### 2 4323-8, ####[facility] LABCLIA [id number] [address] [place] [address] [place] ALT [Catalytic activity/Vol] 34 U/L Normal 7-38 [facility] Comment on above: Order Comment: Speci men Type: BLOOD SPECIMENOrdering Facility: [facility] Address: [address] [place] [address] Performed By: #### 2 4323-8, ####[facility] LABCLIA [id number] [address] [place] [address] [place] Anion gap [Moles/Vol] 13 mmol/L Normal 8-15 [facility] Comment on above: Order Comment: Speci men Type: BLOOD SPECIMENOrdering Facility: [facility] Address: [address] [place] [address] Performed By: #### 2 4323-8, ####[facility] LABCLIA [id number] [facility] [place] [address] [place] AST [Catalytic activity/Vol] 26 U/L Normal 13-35 [facility] Comment on above: Order Comment: Speci men Type: BLOOD SPECIMENOrdering Facility: [facility] Address: [address] [place] [address] Result Comment: Resu lts may be falsely increased due to interference from hemolysis. Suggest reorder as clinically indicated. Performed By: #### 2 4328, ####[facility] LABCLIA [id number] [place] [address] [place] Bilirubin [Mass/Vol] 0.2 mg/dL Normal 0.2-1.3 [facility] Comment on above: Order Comment: Speci men Type: BLOOD SPECIMENOrdering Facility: [facility] Address: [address] [place] [address] Performed By: #### 2 4323-8, ####[facility] LABCLIA [id number] [facility] [place] [address] [place] Calcium [Mass/Vol] 9.5 mg/dL Normal 8.5-10.2 [facility] Comment on above: Order Comment: Speci men Type: BLOOD SPECIMENOrdering Facility: [facility] Address: [address] [place] [address] Performed By: #### 2 4323-8, ####[facility] LABCLIA [id number] [facility] [place] [id number] [place] Chloride [Moles/Vol] 104 mmol/L Normal 98-107 [facility] Comment on above: Order Comment: Speci men Type: BLOOD SPECIMENOrdering Facility: [facility] Address: [address] [place] [address] Performed By: #### 2 4323-8, ####[facility] LABCLIA [id number] [place] [id number] [place] CO2 [Moles/Vol] 21 mmol/L Low 22-30 [facility] Comment on above: Order Comment: Speci men Type: BLOOD SPECIMENOrdering Facility: [facility] Address: [address] [place] [address] Performed By: #### 2 4323-8, ####[facility] LABIA [id number] [place] [address] [place] Creatinine [Mass/Vol] 1.81 mg/dL High 0.58-0.96 [facility] Comment on above: Order Comment: Speci men Type: BLOOD SPECIMENOrdering Facility: [facility] Address: [address] [place] [address] Performed By: #### 2 4323-8, ####[facility] LABIA [id number] [place] [address] [place] Creatinine and Glomerular filtration rate.predicted panel (S/P/Bld) 30 mL/min/1.73m??? Low >=60 [facility] Comment on above: Order Comment: Speci men Type: BLOOD SPECIMENOrdering Facility: [facility] Address: [address] [place] [address] Result Comment: Maru mated Glomerular Filtration Rate [...] actual GFR. Performed By: #### 2 4328, ####[facility] LABCLIA [id number] [address] [address] [place] Glucose [Mass/Vol] 111 mg/dL High 74-99 [facility] Comment on above: Order Comment: Speci men Type: BLOOD SPECIMENOrdering Facility: [facility] Address: [address] [place] [address] Result Comment: The [place] [employer] (ADA) provides guidance for cutoff [...] Standards of Medical Care in Diabetes 2016, [place] [employer]. Diabetes Care. 2016.39(Suppl 1). Performed By: #### 2 432-8, ####[facility] LABIA [id number] [place] [address] [place] Potassium [Moles/Vol] 4.8 mmol/L Normal 3.7-5.1 [facility] Comment on above: Order Comment: Speci men Type: BLOOD SPECIMENOrdering Facility: [facility] Address: [address] [place] [address] Performed By: #### 2 4323-8, ####[facility] LABIA [id number] [address] [address] [place] Protein [Mass/Vol] 6.1 g/dL Low 6.3-8.0 [facility] Comment on above: Order Comment: Speci men Type: BLOOD SPECIMENOrdering Facility: [facility] Address: [address] [place] [address] Performed By: #### 2 4323-8, ####[facility] LABCLIA [id number] [place] [id number] [place] Sodium [Moles/Vol] 138 mmol/L Normal 136-144 [facility] Comment on above: Order Comment: Speci men Type: BLOOD SPECIMENOrdering Facility: [facility] Address: [address] [place] [address] Performed By: #### 2 4323-8, ####[facility] LABCLIA [id number] [place] [id number] [place] Urea nitrogen [Mass/Vol] 42 mg/dL High 01-21 [facility] Comment on above: Order Comment: Speci men Type: BLOOD SPECIMENOrdering Facility: [facility] Address: [address] [place] [address] Performed By: #### 2 4323-8, ####[facility] LABIA [id number] [place] [id number] [place] Magnesium SerPl-mCncon 12-23 Magnesium [Mass/Vol] 2.3 mg/dL Normal 1.7-2.3 [facility] Comment on above: Order Comment: Speci men Type: BLOOD SPECIMENOrdering Facility: [facility] Address: [address] [place], [place] [address] Performed By: #### 2 4323-8, ####[facility] LABCLIA [id number] [address] [address] [place] PT EDon 12-23-2024 PT ED Normal [facility] XR CHEST 1V FRONTAL PORTon 0 12-23-2024 XR CHEST 1V FRONTAL PORT Normal [facility] CBC panel Auto (Bld)on 12-22 Erythrocyte distribution width (RBC) [Ratio] 13.3 % Normal 11.5-15.0 [facility] Comment on above: Order Comment: Speci men Type: BLOOD SPECIMENOrdering Facility: [facility] Address: [address] [place] [address] Performed By: #### 5 8410-2 ####[facility] LABIA [id number] [place] [address] [place] Hematocrit (Bld) [Volume fraction] 41.6 % Normal 36.0-46.0 [facility] Comment on above: Order Comment: Speci men Type: BLOOD SPECIMENOrdering Facility: [facility] Address: [address] [place] [address] Performed By: #### 5 8410-2 ####[facility] LABIA [id number] [place] [address] [place] Hemoglobin (Bld) [Mass/Vol] 13.7 g/dL Normal 11.5-15.5 [facility] Comment on above: Order Comment: Speci men Type: BLOOD SPECIMENOrdering Facility: [facility] Address: [address] [place] [address] Performed By: #### 5 8410-2 ####[facility] [id number] [place] [address] [place] MCH (RBC) [Entitic mass] 30.2 pg Normal 26.0-34.0 [facility] Comment on above: Order Comment: Speci men Type: BLOOD SPECIMENOrdering Facility: [facility] Address: [address] [place] [address] Performed By: #### 5 8410-2 ####[facility] LABIA [id number] [place] [address] [place] MCHC (RBC) [Mass/Vol] 32.9 g/dL Normal 30.5-36.0 [facility] Comment on above: Order Comment: Speci men Type: BLOOD SPECIMENOrdering Facility: [facility] Address: [address] [place] [address] Performed By: #### 5 8410-2 ####[facility] LABCLIA [id number] [address] [address] [place] MCV (RBC) [Entitic vol] 91.6 fL Normal 80.0-100.0 [facility] Comment on above: Order Comment: Speci men Type: BLOOD SPECIMENOrdering Facility: [facility] Address: [address] [place] [address] Performed By: #### 5 8410-2 ####[facility] LABIA [id number] [place] [address] [place] Nucleated RBC (Bld) [#/Vol] 10*3/uL Normal <0.01 [facility] Comment on above: Order Comment: Speci men Type: BLOOD SPECIMENOrdering Facility: [facility] Address: [address] [place] [address] Performed By: #### 5 8410-2 ####[facility] LABIA [id number] [place] [address] [place] Platelet mean volume (Bld) [Entitic vol] 10.9 fL Normal 9.0-12.7 [facility] Comment on above: Order Comment: Speci men Type: BLOOD SPECIMENOrdering Facility: [facility] Address: [address] [place] [address] Performed By: #### 5 8410-2 ####[facility] LABIA [id number] [place] [address] [place] Platelets (Bld) [#/Vol] 348 10*3/uL Normal 150-400 [facility] Comment on above: Order Comment: Speci men Type: BLOOD SPECIMENOrdering Facility: [facility] Address: [address] [place] [address] Performed By: #### 5 8410-2 ####[facility] LABIA [id number] [place] [address] [place] RBC (Bld) [#/Vol] 4.54 10*6/uL Normal 3.90-5.20 [facility] Comment on above: Order Comment: Speci men Type: BLOOD SPECIMENOrdering Facility: [facility] Address: [address] [place] [address] Performed By: #### 5 8410-2 ####[facility] LABCLIA [id number] [place] [address] [place] WBC (Bld) [#/Vol] 10.40 10*3/uL Normal 3.70-11.00 [facility] Comment on above: Order Comment: Speci men Type: BLOOD SPECIMENOrdering Facility: [facility] Address: [address] [place] [address] Performed By: #### 5 8410-2 ####[facility] LABCLIA [id number] [place] [address] [place] Comprehensive metabolic 2000 panelon 12-22-2024 Albumin [Mass/Vol] 3.3 g/dL Low 3.9-4.9 [facility] Comment on above: Order Comment: Speci men Type: BLOOD SPECIMENOrdering Facility: [facility] Address: [address] [place] [address] Performed By: #### 2 777-1, , ####[facility] LABCLIA [id number] [place] [id number] [place] ALP [Catalytic activity/Vol] 81 U/L Normal 34-123 [facility] Comment on above: Order Comment: Speci men Type: BLOOD SPECIMENOrdering Facility: [facility] Address: [address] [place] [address] Performed By: #### 2 777-1, , ####[facility] LABCLIA [id number] [address] [place] [address] [place] ALT [Catalytic activity/Vol] 38 U/L Normal 7-38 [facility] Comment on above: Order Comment: Speci men Type: BLOOD SPECIMENOrdering Facility: [facility] Address: [address] [place], [place] [address] Performed By: #### 2 777-1, , ####[facility] LABCLIA [id number] [facility] [place] [facility] [address] [place] [address] [place] Anion gap [Moles/Vol] 13 mmol/L Normal 8-15 [facility] Comment on above: Order Comment: Speci men Type: BLOOD SPECIMENOrdering Facility: [facility] Address: [address] [place], [place] [address] Performed By: #### 2 777-1, , ####[facility] LABCLIA [id number] [address] [address] [place] AST [Catalytic activity/Vol] 30 U/L Normal 13-35 [facility] Comment on above: Order Comment: Speci men Type: BLOOD SPECIMENOrdering Facility: [facility] Address: [address] [place] [address] Performed By: #### 2 777-1, , ####[facility] LABCLIA [id number] [address] [address] [place] Bilirubin [Mass/Vol] 0.2 mg/dL Normal 0.2-1.3 [facility] Comment on above: Order Comment: Speci men Type: BLOOD SPECIMENOrdering Facility: [facility] Address: [address] [place] [address] Performed By: #### 2 777-1, , ####[facility] LABCLIA [id number] [facility] [place] [facility] [address] [place] [address] [place] Calcium [Mass/Vol] 9.4 mg/dL Normal 8.5-10.2 [facility] Comment on above: Order Comment: Speci men Type: BLOOD SPECIMENOrdering Facility: [facility] Address: [address] [place], [place] [address] Performed By: #### 2 777-1, , ####[facility] LABCLIA [id number] [address] [address] [place] Chloride [Moles/Vol] 101 mmol/L Normal 98-107 [facility] Comment on above: Order Comment: Speci men Type: BLOOD SPECIMENOrdering Facility: [facility] Address: [address] [place], [place] [address] Performed By: #### 2 777-1, , ####[facility] LABCLIA [id number] [place] [id number] [place] CO2 [Moles/Vol] 22 mmol/L Normal 22-30 [facility] Comment on above: Order Comment: Speci men Type: BLOOD SPECIMENOrdering Facility: [facility] Address: [address] [place], [place] [address] Performed By: #### 2 777-1, , ####[facility] LABIA [id number] [place] [address] [place] Creatinine [Mass/Vol] 1.68 mg/dL High 0.58-0.96 [facility] Comment on above: Order Comment: Speci men Type: BLOOD SPECIMENOrdering Facility: [facility] Address: [address] [place], [place] [address] Performed By: #### 2 777-1, , ####[facility] LABIA [id number] [address] [address] [place] Creatinine and Glomerular filtration rate.predicted panel (S/P/Bld) 33 mL/min/1.73m??? Low >=60 [facility] Comment on above: Order Comment: Speci men Type: BLOOD SPECIMENOrdering Facility: [facility] Address: [address] [place] [address] Result Comment: Maru mated Glomerular Filtration Rate [...] GFR. Performed By: #### 2 777-1, , ####[facility] LABCLIA [id number] [address] [address] [place] Glucose [Mass/Vol] 115 mg/dL High 74-99 [facility] Comment on above: Order Comment: Speci men Type: BLOOD SPECIMENOrdering Facility: [facility] Address: [address] [place] [address] Result Comment: The [place] [employer] (ADA) provides guidance for cutoff [...] Standards of Medical Care in Diabetes 2016, [place] [employer]. Diabetes Care. 2016.39(Suppl 1). Performed By: #### 2 777-1, , ####[facility] LABCLIA [id number] [address] [address] [place] Potassium [Moles/Vol] 4.1 mmol/L Normal 3.7-5.1 [facility] Comment on above: Order Comment: Speci men Type: BLOOD SPECIMENOrdering Facility: [facility] Address: [address] [place] [id number] Performed By: #### 2 777-1, , ####[facility] LABCLIA [id number] [address] [address] [place] Protein [Mass/Vol] 6.3 g/dL Normal 6.3-8.0 [facility] Comment on above: Order Comment: Speci men Type: BLOOD SPECIMENOrdering Facility: [facility] Address: [address] [place] [address] Performed By: #### 2 777-1, , ####[facility] LABIA [id number] [address] [address] [place] Sodium [Moles/Vol] 136 mmol/L Normal 136-144 [facility] Comment on above: Order Comment: Speci men Type: BLOOD SPECIMENOrdering Facility: [facility] Address: [address] [place] [address] Performed By: #### 2 777-1, , ####[facility] LABIA [id number] [address] [address] [place] Urea nitrogen [Mass/Vol] 38 mg/dL High - [facility] Comment on above: Order Comment: Speci men Type: BLOOD SPECIMENOrdering Facility: [facility] Address: [address] [place] [address] Performed By: #### 2 777-1, , ####[facility] LABIA [id number] [address] [place] [address] [place] Magnesium SerPl-mCncon 12-22 Magnesium [Mass/Vol] 2.2 mg/dL Normal 1.7-2.3 [facility] Comment on above: Order Comment: Speci men Type: BLOOD SPECIMENOrdering Facility: [facility] Address: [address] [place] [id number] Performed By: #### 2 777-1, , 65564-9 ####[facility] LABCLIA [id number] [address] [place] [address] [place] NUTRITIONon 12-22-2024 NUTRITION Normal [facility] Phosphate SerPl-mCncon 12-22 Phosphate [Mass/Vol] 4.3 mg/dL Normal 2.7-4.8 [facility] Comment on above: Order Comment: Speci men Type: BLOOD SPECIMENOrdering Facility: [facility] Address: [address] [place] [address] Performed By: #### 2 777-1, , ####[facility] LABCLIA [id number] [address] [place] [address] [place] US KIDNEY/BLADDERon 12-23-19 US KIDNEY/BLADDER Normal [facility] XR CHEST 1V FRONTAL PORTon 0 12-22-2024 XR CHEST 1V FRONTAL PORT Normal [facility] CASE MANAGEMon 12-21-2024 CASE MANAGEM Normal [facility] CBC panel Auto (Bld)on 12-21 Erythrocyte distribution width (RBC) [Ratio] 13.2 % Normal 11.5-15.0 [facility] Comment on above: Order Comment: Speci men Type: BLOOD SPECIMENOrdering Facility: [facility] Address: [address] [place] [address] Performed By: #### 5 8410-2 ####[facility] LABIA [id number] [address] [place] [address] [place] Hematocrit (Bld) [Volume fraction] 40.8 % Normal 36.0-46.0 [facility] Comment on above: Order Comment: Speci men Type: BLOOD SPECIMENOrdering Facility: [facility] Address: [address] [place] [address] Performed By: #### 5 8410-2 ####[facility] LABCLIA [id number] [place] [address] [place] Hemoglobin (Bld) [Mass/Vol] 13.6 g/dL Normal 11.5-15.5 [facility] Comment on above: Order Comment: Speci men Type: BLOOD SPECIMENOrdering Facility: [facility] Address: [address] [place] [address] Performed By: #### 5 8410-2 ####[facility] LABIA [id number] [place] [address] [place] MCH (RBC) [Entitic mass] 30.6 pg Normal 26.0-34.0 [facility] Comment on above: Order Comment: Speci men Type: BLOOD SPECIMENOrdering Facility: [facility] Address: [address] [place] [address] Performed By: #### 5 8410-2 ####[facility] LABIA [id number] [address] [place] MCHC (RBC) [Mass/Vol] 33.3 g/dL Normal 30.5-36.0 [facility] Comment on above: Order Comment: Speci men Type: BLOOD SPECIMENOrdering Facility: [facility] Address: [address] [place] [address] Performed By: #### 5 8410-2 ####[facility] LABIA [id number] [place] [address] [place] MCV (RBC) [Entitic vol] 91.9 fL Normal 80.0-100.0 [facility] Comment on above: Order Comment: Speci men Type: BLOOD SPECIMENOrdering Facility: [facility] Address: [address] [place] [address] Performed By: #### 5 8410-2 ####[facility] LABIA [id number] [place] [address] [place] Nucleated RBC (Bld) [#/Vol] 10*3/uL Normal <0.01 [facility] Comment on above: Order Comment: Speci men Type: BLOOD SPECIMENOrdering Facility: [facility] Address: [address] [place] [address] Performed By: #### 5 8410-2 ####[facility] LABCLIA [id number] [address] [address] [place] Platelet mean volume (Bld) [Entitic vol] 11.0 fL Normal 9.0-12.7 [facility] Comment on above: Order Comment: Speci men Type: BLOOD SPECIMENOrdering Facility: [facility] Address: [address] [place] [address] Performed By: #### 5 8410-2 ####[facility] LABIA [id number] [place] [address] [place] Platelets (Bld) [#/Vol] 392 10*3/uL Normal 150-400 [facility] Comment on above: Order Comment: Speci men Type: BLOOD SPECIMENOrdering Facility: [facility] Address: [address] [place] [address] Performed By: #### 5 8410-2 ####[facility] LABIA [id number] [place] [address] [place] RBC (Bld) [#/Vol] 4.44 10*6/uL Normal 3.90-5.20 [facility] Comment on above: Order Comment: Speci men Type: BLOOD SPECIMENOrdering Facility: [facility] Address: [address] [place] [address] Performed By: #### 5 8410-2 ####[facility] LABIA [id number] [place] [id number] [place] WBC (Bld) [#/Vol] 10.57 10*3/uL Normal 3.70-11.00 [facility] Comment on above: Order Comment: Speci men Type: BLOOD SPECIMENOrdering Facility: [facility] Address: [address] [place] [address] Performed By: #### 5 8410-2 ####[facility] LABCLIA [id number] [place] [address] [place] CONSULT PROGon 12-21-2024 CONSULT PROG Normal [facility] CONSULT PROG Normal [facility] Comprehensive metabolic 2000 panelon 12-21-2024 Albumin [Mass/Vol] 3.3 g/dL Low 3.9-4.9 [facility] Comment on above: Order Comment: Speci men Type: BLOOD SPECIMENOrdering Facility: [facility] Address: [address] [place] [address] Performed By: #### 2 4323-8, , 2776-07 ####[facility] LABCLIA [id number] [place] [address] [place] ALP [Catalytic activity/Vol] 80 U/L Normal 34-123 [facility] Comment on above: Order Comment: Speci men Type: BLOOD SPECIMENOrdering Facility: [facility] Address: [address] [place] [address] Performed By: #### 2 4323-8, , 2776-07 ####[facility] LABCLIA [id number] [place] [address] [place] ALT [Catalytic activity/Vol] 38 U/L Normal 7-38 [facility] Comment on above: Order Comment: Speci men Type: BLOOD SPECIMENOrdering Facility: [facility] Address: [address] [place] [address] Result Comment: Resu lts may be falsely increased due to interference from hemolysis. Suggest reorder as clinically indicated. Performed By: #### 2 4323-8, , 2776-07 ####[facility] LABCLIA [id number] [place] [id number] [place] Anion gap [Moles/Vol] 15 mmol/L Normal 8-15 [facility] Comment on above: Order Comment: Speci men Type: BLOOD SPECIMENOrdering Facility: [facility] Address: [address] [place], [place] [address] Performed By: #### 2 4323-8, , 2776-07 ####[facility] LABCLIA [id number] [facility] AVENUEDESK [address] [address] [place] AST [Catalytic activity/Vol] 34 U/L Normal 13-35 [facility] Comment on above: Order Comment: Speci men Type: BLOOD SPECIMENOrdering Facility: [facility] Address: [address] [place] [address] Result Comment: Resu lts may be falsely increased due to interference from hemolysis. Suggest reorder as clinically indicated. Performed By: #### 2 4323-8, , 2776-07 ####[facility] LABCLIA [id number] [facility] [place] [facility] [place] [id number] [place] Bilirubin [Mass/Vol] mg/dL Low 0.2-1.3 [facility] Comment on above: Order Comment: Speci men Type: BLOOD SPECIMENOrdering Facility: [facility] Address: [address] [place] [address] Performed By: #### 2 4323-8, , 2776-07 ####[facility] LABCLIA [id number] [facility] AV[facility]UEPROVID[facility] [place] [id number] [place] Calcium [Mass/Vol] 9.4 mg/dL Normal 8.5-10.2 [facility] Comment on above: Order Comment: Speci men Type: BLOOD SPECIMENOrdering Facility: [facility] Address: [address] [place], [place] [address] Performed By: #### 2 4323-8, , 2776-07 ####[facility] LABCLIA [id number] [facility] AVENUEDESK [address] [address] [place] Chloride [Moles/Vol] 99 mmol/L Normal 98-107 [facility] Comment on above: Order Comment: Speci men Type: BLOOD SPECIMENOrdering Facility: [facility] Address: [address] [place] [address] Performed By: #### 2 4323-8, , 2776-07 ####[facility] LABCLIA [id number] [place] [id number] [place] CO2 [Moles/Vol] 21 mmol/L Low 22-30 [facility] Comment on above: Order Comment: Speci men Type: BLOOD SPECIMENOrdering Facility: [facility] Address: [address] [place] [address] Performed By: #### 2 4323-8, , 2776-07 ####[facility] LABCLIA [id number] [place] [address] [place] Creatinine [Mass/Vol] 1.58 mg/dL High 0.58-0.96 [facility] Comment on above: Order Comment: Speci men Type: BLOOD SPECIMENOrdering Facility: [facility] Address: [address] [place] [address] Performed By: #### 2 4323-8, , 2776-07 ####[facility] LABCLIA [id number] [place] [address] [place] Creatinine and Glomerular filtration rate.predicted panel (S/P/Bld) 36 mL/min/1.73m??? Low >=60 [facility] Comment on above: Order Comment: Speci men Type: BLOOD SPECIMENOrdering Facility: [facility] Address: [address] [place] [address] Result Comment: Maru mated Glomerular Filtration Rate [...] Performed By: #### 2 4323-8, , 2776-07 ####[facility] LABCLIA [id number] [address] [address] [place] Glucose [Mass/Vol] 203 mg/dL High 74-99 [facility] Comment on above: Order Comment: Speci men Type: BLOOD SPECIMENOrdering Facility: [facility] Address: [address] [place] [address] Result Comment: The [place] [employer] (ADA) provides guidance for cutoff [...] Standards of Medical Care in Diabetes 2016, [place] [employer]. Diabetes Care. 2016.39(Suppl 1). Performed By: #### 2 4323-8, , 2776-07 ####[facility] LABCLIA [id number] [address] [address] [place] Potassium [Moles/Vol] 4.6 mmol/L Normal 3.7-5.1 [facility] Comment on above: Order Comment: Speci men Type: BLOOD SPECIMENOrdering Facility: [facility] Address: [address] [place] [address] Performed By: #### 2 4323-8, , 2776-07 ####[facility] LABIA [id number] [address] [address] [place] Protein [Mass/Vol] 6.3 g/dL Normal 6.3-8.0 [facility] Comment on above: Order Comment: Speci men Type: BLOOD SPECIMENOrdering Facility: [facility] Address: [address] [place], [place] [address] Performed By: #### 2 4323-8, 64072-4, 2776-07 ####[facility] LABCLIA [id number] [place] [id number] [place] Sodium [Moles/Vol] 135 mmol/L Low 136-144 [facility] Comment on above: Order Comment: Speci men Type: BLOOD SPECIMENOrdering Facility: [facility] Address: [address] [place], [place] [address] Performed By: #### 2 4323-8, 78290-9, 2776-07 ####[facility] LABCLIA [id number] [place] [address] [place] Urea nitrogen [Mass/Vol] 36 mg/dL High 7-21 [facility] Comment on above: Order Comment: Speci men Type: BLOOD SPECIMENOrdering Facility: [facility] Address: [address] [place] [address] Performed By: #### 2 4323-8, , 2776-07 ####[facility] LABCLIA [id number] [place] [id number] [place] ECHO TRANSESOPHAGEALon 12-21 ECHO TRANSESOPHAGEAL Normal [facility] Magnesium SerPl-mCncon 12-21 Magnesium [Mass/Vol] 2.2 mg/dL Normal 1.7-2.3 [facility] Comment on above: Order Comment: Speci men Type: BLOOD SPECIMENOrdering Facility: [facility] Address: [address] [place] [address] Performed By: #### 2 4323-8, 23717-3, 2776-07 ####[facility] LABCLIA [id number] [place] [id number] [place] Phosphate SerPl-mCncon 12-21 Phosphate [Mass/Vol] 4.6 mg/dL Normal 2.7-4.8 [facility] Comment on above: Order Comment: Speci men Type: BLOOD SPECIMENOrdering Facility: [facility] Address: [address] [place] [address] Performed By: #### 2 4323-8, 42408-8, 2777-1 ####[facility] LABCLIA [id number] [address], [place] [address] [place] XR CHEST 1V FRONTALon 2024 XR CHEST 1V FRONTAL Normal [facility] CBC W Auto Differential pane l (Bld)on 12-20-2024 Basophils (Bld) [#/Vol] 0.08 10*3/uL Normal <0.11 [facility] Comment on above: Order Comment: Speci men Type: BLOOD SPECIMENOrdering Facility: [facility] Address: [address] [place] [address] Performed By: #### 5 7021-8 ####[facility] LABCLIA [id number] [place] [address] [place] Basophils/100 WBC (Bld) 0.8 % Normal [facility] Comment on above: Order Comment: Speci men Type: BLOOD SPECIMENOrdering Facility: [facility] Address: [address] [place] [address] Performed By: #### 5 7021-8 ####[facility] LABCLIA [id number] [address], [facility]95 [place] Differential cell count method Nom (Bld) Auto Normal [facility] Comment on above: Order Comment: Speci men Type: BLOOD SPECIMENOrdering Facility: [facility] Address: [address] [place] [address] Performed By: #### 5 7021-8 ####[facility] LABCLIA [id number] [address] [place] [address] [place] Eosinophils (Bld) [#/Vol] 0.19 10*3/uL Normal <0.46 [facility] Comment on above: Order Comment: Speci men Type: BLOOD SPECIMENOrdering Facility: [facility] Address: [address] [place], [place] [address] Performed By: #### 5 7021-8 ####[facility] LABCLIA [id number] [address] [address] [place] Eosinophils/100 WBC (Bld) 1.9 % Normal [facility] Comment on above: Order Comment: Speci men Type: BLOOD SPECIMENOrdering Facility: [facility] Address: [address] [place] [address] Performed By: #### 5 7021-8 ####[facility] LABCLIA [id number] [address], [place] [address] [place] Erythrocyte distribution width (RBC) [Ratio] 13.2 % Normal 11.5-15.0 [facility] Comment on above: Order Comment: Speci men Type: BLOOD SPECIMENOrdering Facility: [facility] Address: [address] [place] [address] Performed By: #### 5 7021-8 ####[facility] LABCLIA [id number] [place] [id number] [place] Hematocrit (Bld) [Volume fraction] 41.6 % Normal 36.0-46.0 [facility] Comment on above: Order Comment: Speci men Type: BLOOD SPECIMENOrdering Facility: [facility] Address: [address] [place], [place] [address] Performed By: #### 5 7021-8 ####[facility] LABCLIA [id number] [address] [address] [place] Hemoglobin (Bld) [Mass/Vol] 13.8 g/dL Normal 11.5-15.5 [facility] Comment on above: Order Comment: Speci men Type: BLOOD SPECIMENOrdering Facility: [facility] Address: [address] [place], [place] [address] Performed By: #### 5 7021-8 ####[facility] LABCLIA [id number] [place] [address] [place] Immature granulocytes (Bld) [#/Vol] 0.06 10*3/uL Normal <0.10 [facility] Comment on above: Order Comment: Speci men Type: BLOOD SPECIMENOrdering Facility: [facility] Address: [address] [place] [address] Performed By: #### 5 7021-8 ####[facility] LABCLIA [id number] [place] [address] [place] Immature granulocytes/100 WBC (Bld) 0.6 % Normal [facility] Comment on above: Order Comment: Speci men Type: BLOOD SPECIMENOrdering Facility: [facility] Address: [address] [place] [address] Performed By: #### 5 7021-8 ####[facility] LABCLIA [id number] [place] [address] [place] Lymphocytes (Bld) [#/Vol] 2.94 10*3/uL Normal 1.00-4.00 [facility] Comment on above: Order Comment: Speci men Type: BLOOD SPECIMENOrdering Facility: [facility] Address: [address] [place] [address] Performed By: #### 5 7021-8 ####[facility] LABCLIA [id number] [place] [address] [place] Lymphocytes/100 WBC (Bld) 28.7 % Normal [facility] Comment on above: Order Comment: Speci men Type: BLOOD SPECIMENOrdering Facility: [facility] Address: [address] [place] [address] Performed By: #### 5 7021-8 ####[facility] LABCLIA [id number] [place] [address] [place] MCH (RBC) [Entitic mass] 30.7 pg Normal 26.0-34.0 [facility] Comment on above: Order Comment: Speci men Type: BLOOD SPECIMENOrdering Facility: [facility] Address: [address] [place] [address] Performed By: #### 5 7021-8 ####[facility] LABCLIA [id number] [place] [id number] [place] MCHC (RBC) [Mass/Vol] 33.2 g/dL Normal 30.5-36.0 [facility] Comment on above: Order Comment: Speci men Type: BLOOD SPECIMENOrdering Facility: [facility] Address: [address] [place] [address] Performed By: #### 5 7021-8 ####[facility] LABIA [id number] [place] [address] [place] MCV (RBC) [Entitic vol] 92.4 fL Normal 80.0-100.0 [facility] Comment on above: Order Comment: Speci men Type: BLOOD SPECIMENOrdering Facility: [facility] Address: [address] [place] [address] Performed By: #### 5 7021-8 ####[facility] LABIA [id number] [place] [address] [place] Monocytes (Bld) [#/Vol] 0.86 10*3/uL Normal <0.87 [facility] Comment on above: Order Comment: Speci men Type: BLOOD SPECIMENOrdering Facility: [facility] Address: [address] [place] [address] Performed By: #### 5 7021-8 ####[facility] LABIA [id number] [place] [address] [place] Monocytes/100 WBC (Bld) 8.4 % Normal [facility] Comment on above: Order Comment: Speci men Type: BLOOD SPECIMENOrdering Facility: [facility] Address: [address] [place] [address] Performed By: #### 5 7021-8 ####[facility] LABCLIA [id number] [address] [place] [address] [place] Neutrophils (Bld) [#/Vol] 6.13 10*3/uL Normal 1.45-7.50 [facility] Comment on above: Order Comment: Speci men Type: BLOOD SPECIMENOrdering Facility: [facility] Address: [address] [place] [address] Performed By: #### 5 7021-8 ####[facility] LABCLIA [id number] [address], [place] [address] [place] Neutrophils/100 WBC (Bld) 59.6 % Normal [facility] Comment on above: Order Comment: Speci men Type: BLOOD SPECIMENOrdering Facility: [facility] Address: [address] [place] [address] Performed By: #### 5 7021-8 ####[facility] LABCLIA [id number] [place] [address] [place] Nucleated RBC (Bld) [#/Vol] 10*3/uL Normal <0.01 [facility] Comment on above: Order Comment: Speci men Type: BLOOD SPECIMENOrdering Facility: [facility] Address: [address] [place] [address] Performed By: #### 5 7021-8 ####[facility] LABCLIA [id number] [place] [id number] [place] Nucleated RBC/100 WBC (Bld) [Ratio] 0.0 /100 WBC Normal [facility] Comment on above: Order Comment: Speci men Type: BLOOD SPECIMENOrdering Facility: [facility] Address: [address] [place] [address] Performed By: #### 5 7021-8 ####[facility] LABCLIA [id number] [address], [facility]95 [place] Platelet mean volume (Bld) [Entitic vol] 10.9 fL Normal 9.0-12.7 [facility] Comment on above: Order Comment: Speci men Type: BLOOD SPECIMENOrdering Facility: [facility] Address: [address] [place] [address] Performed By: #### 5 7021-8 ####[facility] LABCLIA [id number] [place] [address] [place] Platelets (Bld) [#/Vol] 416 10*3/uL High 150-400 [facility] Comment on above: Order Comment: Speci men Type: BLOOD SPECIMENOrdering Facility: [facility] Address: [address] [place] [address] Performed By: #### 5 7021-8 ####[facility] LABCLIA [id number] [place] [address] [place] RBC (Bld) [#/Vol] 4.50 10*6/uL Normal 3.90-5.20 [facility] Comment on above: Order Comment: Speci men Type: BLOOD SPECIMENOrdering Facility: [facility] Address: [address] [place] [address] Performed By: #### 5 7021-8 ####[facility] LABCLIA [id number] [place] [address] [place] WBC (Bld) [#/Vol] 10.26 10*3/uL Normal 3.70-11.00 [facility] Comment on above: Order Comment: Speci men Type: BLOOD SPECIMENOrdering Facility: [facility] Address: [address] [place] [address] Performed By: #### 5 7021-8 ####[facility] LABCLIA [id number] [place] [id number] [place] CONSULTon 12-20-2024 CONSULT Normal [facility] CONSULT Normal [facility] CONSULT PROGon 12-20-2024 CONSULT PROG Normal [facility] Comprehensive metabolic 2000 panelon 12-20-2024 Albumin [Mass/Vol] 3.2 g/dL Low 3.9-4.9 [facility] Comment on above: Order Comment: Speci men Type: BLOOD SPECIMENOrdering Facility: [facility] Address: [address] [place] [address] Performed By: #### 1 9123-9, 2777-1, 18248-6 ####[facility] LABCLIA [id number] [place] [address] [place] ALP [Catalytic activity/Vol] 84 U/L Normal 34-123 [facility] Comment on above: Order Comment: Speci men Type: BLOOD SPECIMENOrdering Facility: [facility] Address: [address] [place] [address] Performed By: #### 1 9123-9, 27771, 64929-2 ####[facility] LABCLIA [id number] [place] [address] [place] ALT [Catalytic activity/Vol] 42 U/L High 7-38 [facility] Comment on above: Order Comment: Speci men Type: BLOOD SPECIMENOrdering Facility: [facility] Address: [address] [place] [address] Performed By: #### 1 9123-9, 2771, 89965-0 ####[facility] LABCLIA [id number] [place] [id number] [place] Anion gap [Moles/Vol] 12 mmol/L Normal 8-15 [facility] Comment on above: Order Comment: Speci men Type: BLOOD SPECIMENOrdering Facility: [facility] Address: [address] [place] [address] Performed By: #### 1 9123-9, 2771, 90651-9 ####[facility] LABCLIA [id number] [address] [address] [place] AST [Catalytic activity/Vol] 33 U/L Normal 13-35 [facility] Comment on above: Order Comment: Speci men Type: BLOOD SPECIMENOrdering Facility: [facility] Address: [address] [place] [address] Performed By: #### 1 9123-9, 2776-07, ####[facility] LABCLIA [id number] [address] [address] [place] Bilirubin [Mass/Vol] mg/dL Low 0.2-1.3 [facility] Comment on above: Order Comment: Speci men Type: BLOOD SPECIMENOrdering Facility: [facility] Address: [address] [place] [address] Performed By: #### 1 9123-9, 27701-01, ####[facility] LABCLIA [id number] [address] [address] [place] Calcium [Mass/Vol] 9.5 mg/dL Normal 8.5-10.2 [facility] Comment on above: Order Comment: Speci men Type: BLOOD SPECIMENOrdering Facility: [facility] Address: [address] [place] [address] Performed By: #### 1 9123-9, 2776-07, ####[facility] LABCLIA [id number] [address] [address] [place] Chloride [Moles/Vol] 106 mmol/L Normal 98-107 [facility] Comment on above: Order Comment: Speci men Type: BLOOD SPECIMENOrdering Facility: [facility] Address: [address] [place] [address] Performed By: #### 1 9123-9, 2776-07, ####[facility] LABCLIA [id number] [facility] [place] [facility] [address] [address] [place] CO2 [Moles/Vol] 21 mmol/L Low 22-30 [facility] Comment on above: Order Comment: Speci men Type: BLOOD SPECIMENOrdering Facility: [facility] Address: [address] [place] [id number] Performed By: #### 1 9123-9, 2776-07, ####[facility] LABIA [id number] [address] [address] [place] Creatinine [Mass/Vol] 1.50 mg/dL High 0.58-0.96 [facility] Comment on above: Order Comment: Speci men Type: BLOOD SPECIMENOrdering Facility: [facility] Address: [address] [place] [address] Performed By: #### 1 9123-9, 2776-07, ####[facility] LABIA [id number] [address] [address] [place] Creatinine and Glomerular filtration rate.predicted panel (S/P/Bld) 38 mL/min/1.73m??? Low >=60 [facility] Comment on above: Order Comment: Speci men Type: BLOOD SPECIMENOrdering Facility: [facility] Address: [address] [place] [address] Result Comment: Maru mated Glomerular Filtration Rate [...] GFR. Performed By: #### 1 9123-9, 2776-07, ####[facility] LABIA [id number] [address] [address] [place] Glucose [Mass/Vol] 111 mg/dL High 74-99 [facility] Comment on above: Order Comment: Speci men Type: BLOOD SPECIMENOrdering Facility: [facility] Address: [address] [place], [place] [phone] Result Comment: The [place] [employer] (ADA) provides guidance for cutoff [...] Standards of Medical Care in Diabetes 2016, [place] [employer]. Diabetes Care. 2016.39(Suppl 1). Performed By: #### 1 9123-9, 2777-, 56084-9 ####[facility] LABIA [id number] [place] [address] [place] Potassium [Moles/Vol] 4.6 mmol/L Normal 3.7-5.1 [facility] Comment on above: Order Comment: Speci men Type: BLOOD SPECIMENOrdering Facility: [facility] Address: [address] [place] [address] Performed By: #### 1 9123-9, 27701-01, 15817-6 ####[facility] LABIA [id number] [place] [address] [place] Protein [Mass/Vol] 6.0 g/dL Low 6.3-8.0 [facility] Comment on above: Order Comment: Speci men Type: BLOOD SPECIMENOrdering Facility: [facility] Address: [address] [place] [address] Performed By: #### 1 9123-9, 2777, 14639-7 ####[facility] LABIA [id number] [place] [address] [place] Sodium [Moles/Vol] 139 mmol/L Normal 136-144 [facility] Comment on above: Order Comment: Speci men Type: BLOOD SPECIMENOrdering Facility: [facility] Address: [address] [place] [address] Performed By: #### 1 9123-9, 2777-1, 34716-7 ####[facility] LABCLIA [id number] [address] [address] [place] Urea nitrogen [Mass/Vol] 32 mg/dL High 7-21 [facility] Comment on above: Order Comment: Speci men Type: BLOOD SPECIMENOrdering Facility: [facility] Address: [address] [place] [address] Performed By: #### 1 9123-9, 2777-1, 34899-4 ####[facility] LABCLIA [id number] [place] [address] [place] Gas and Carbon monoxide pane l (BldV)on 12-20-2024 BASE DEFICIT, VENOUS -1 mmol/L Normal -2-0 [facility] Comment on above: Order Comment: Speci men Type: VENOUS BLOOD SPECIMENOrdering Facility: [facility] Address: [address] [place] [address] Performed By: #### 2 4344-4 ####[facility] LABCLIA [id number] [place] [address] [place] Body temperature 98.6 [degF] Normal [facility] Comment on above: Order Comment: Speci men Type: VENOUS BLOOD SPECIMENOrdering Facility: [facility] Address: [address] [place] [address] Performed By: #### 2 4344-4 ####[facility] LABCLIA [id number] [address] [address] [place] Calcium.ionized (Bld) [Mass/Vol] 1.26 mmol/L Normal 1.08-1.30 [facility] Comment on above: Order Comment: Speci men Type: VENOUS BLOOD SPECIMENOrdering Facility: [facility] Address: [address] [place] [address] Performed By: #### 2 4344-4 ####[facility] LABCLIA [id number] [place] [address] [place] Calcium.ionized adjusted to pH 7.4 (BldA) [Moles/Vol] 1.24 mmol/L Normal 1.08-1.30 [facility] Comment on above: Order Comment: Speci men Type: VENOUS BLOOD SPECIMENOrdering Facility: [facility] Address: [address] [place] [address] Performed By: #### 2 4344-4 ####[facility] LABIA [id number] [place] [address] [place] Carboxyhemoglobin (BldV) [Mass fraction] 0.9 % Normal 0.0-2.0 [facility] Comment on above: Order Comment: Speci men Type: VENOUS BLOOD SPECIMENOrdering Facility: [facility] Address: [address] [place] [address] Result Comment: Carb oxyhemoglobin Reference Range for Smokers: 2.0-8.0% Performed By: #### 2 4344-4 ####[facility] [id number] [place] [address] [place] CO2 (BldV) [Partial pressure] 43 mm[Hg] Normal 42-55 [facility] Comment on above: Order Comment: Speci men Type: VENOUS BLOOD SPECIMENOrdering Facility: [facility] Address: [address] [place] [address] Performed By: #### 2 4344-4 ####[facility] LABIA [id number] [place] [address] [place] Glucose [Mass/Vol] 120 mg/dL High 60-105 [facility] Comment on above: Order Comment: Speci men Type: VENOUS BLOOD SPECIMENOrdering Facility: [facility] Address: [address] [place] [address] Performed By: #### 2 4344-4 ####[facility] LABIA [id number] [place] [address] [place] HCO3 (Bld) [Moles/Vol] 24 mmol/L Normal 24-[address] [facility] Comment on above: Order Comment: Speci men Type: VENOUS BLOOD SPECIMENOrdering Facility: [facility] Address: [address] [place] [address] Performed By: #### 2 4344-4 ####[facility] LABIA [id number] [place] [address] [place] Hematocrit (Bld) [Volume fraction] 42.1 % Normal 36.0-46.0 [facility] Comment on above: Order Comment: Speci men Type: VENOUS BLOOD SPECIMENOrdering Facility: [facility] Address: [address] [place] [address] Performed By: #### 2 4344-4 ####[facility] LABIA [id number] [place] [address] [place] Hemoglobin (Bld) [Mass/Vol] 13.7 g/dL Normal 11.5-15.5 [facility] Comment on above: Order Comment: Speci men Type: VENOUS BLOOD SPECIMENOrdering Facility: [facility] Address: [address] [place] [address] Performed By: #### 2 4344-4 ####[facility] LABIA [id number] [place] [address] [place] Lactate [Moles/Vol] 0.8 mmol/L Normal 0.5-2.2 [facility] Comment on above: Order Comment: Speci men Type: VENOUS BLOOD SPECIMENOrdering Facility: [facility] Address: [address] [place] [address] Performed By: #### 2 4344-4 ####[facility] LABCLIA [id number] [place] [id number] [place] Methemoglobin (Bld) [Mass fraction] 0.4 % Normal 0.0-1.5 [facility] Comment on above: Order Comment: Speci men Type: VENOUS BLOOD SPECIMENOrdering Facility: [facility] Address: [address] [place], [place] [phone] Performed By: #### 2 4344-4 ####[facility] LABCLIA [id number] [address] [address] [place] O2 THERAPY NC Humid = Nasal Cannula-Humidified (7-15 LPM) Normal [facility] Comment on above: Order Comment: Speci men Type: VENOUS BLOOD SPECIMENOrdering Facility: [facility] Address: [address] [place], [place] [address] Performed By: #### 2 4344-4 ####[facility] LABCLIA [id number] [address] [address] [place] Oxygen (BldV) [Partial pressure] 50 mm[Hg] High 35-45 [facility] Comment on above: Order Comment: Speci men Type: VENOUS BLOOD SPECIMENOrdering Facility: [facility] Address: [address] [place], [place] [address] Performed By: #### 2 4344-4 ####[facility] LABCLIA [id number] [address] [address] [place] Oxygen saturation in Venous blood 82 % Normal 60-85 [facility] Comment on above: Order Comment: Speci men Type: VENOUS BLOOD SPECIMENOrdering Facility: [facility] Address: [address] [place], [place] [address] Performed By: #### 2 4344-4 ####[facility] LABCLIA [id number] [address] [address] [place] Oxyhemoglobin (BldV) [Mass fraction] 80 % Normal 60-85 [facility] Comment on above: Order Comment: Speci men Type: VENOUS BLOOD SPECIMENOrdering Facility: [facility] Address: [address] [place] [address] Performed By: #### 2 4344-4 ####[facility] LABCLIA [id number] [place] [id number] [place] pH (BldV) 7.37 [pH] Normal 7.32-7.42 [facility] Comment on above: Order Comment: Speci men Type: VENOUS BLOOD SPECIMENOrdering Facility: [facility] Address: [address] [place] [address] Performed By: #### 2 4344-4 ####[facility] LABCLIA [id number] [place] [address] [place] Potassium [Moles/Vol] 4.4 mmol/L Normal 3.5-5.0 [facility] Comment on above: Order Comment: Speci men Type: VENOUS BLOOD SPECIMENOrdering Facility: [facility] Address: [address] [place] [address] Performed By: #### 2 4344-4 ####[facility] LABCLIA [id number] [place] [address] [place] Sodium [Moles/Vol] 135 mmol/L Low 136-144 [facility] Comment on above: Order Comment: Speci men Type: VENOUS BLOOD SPECIMENOrdering Facility: [facility] Address: [address] [place] [address] Performed By: #### 2 4344-4 ####[facility] LABCLIA [id number] [place] [address] [place] Magnesium SerPl-mCncon 12-20 Magnesium [Mass/Vol] 2.2 mg/dL Normal 1.7-2.3 [facility] Comment on above: Order Comment: Speci men Type: BLOOD SPECIMENOrdering Facility: [facility] Address: [address] [place] [address] Performed By: #### 1 9123-9, 2777-1, 12249-9 ####[facility] LABCLIA [id number] [place] [id number] [place] PTT, ANTICOAGULANT THERAPYon 12-20-2024 aPTT Coag (PPP) [Time] 68.0 s High 23.0-32.[address] [facility] Comment on above: Order Comment: Speci men Type: BLOOD SPECIMENOrdering Facility: [facility] Address: [address] [place] [address] Performed By: #### P TTAC ####[facility] LABCLIA [id number] [place] [address] [place] aPTT Coag (PPP) [Time] 79.1 s High 23.0-32.[address] [facility] Comment on above: Order Comment: Speci men Type: BLOOD SPECIMENOrdering Facility: [facility] Address: [address] [place] [address] Performed By: #### P TTAC ####[facility] LABCLIA [id number] [place] [address] [place] aPTT Coag (PPP) [Time] 67.7 s High 23.0-32.[address] [facility] Comment on above: Order Comment: Speci men Type: BLOOD SPECIMENOrdering Facility: [facility] Address: [address] [place] [address] Performed By: #### P TTAC ####[facility] LABCLIA [id number] [place] [id number] [place] Phosphate SerPl-mCncon 12-20 Phosphate [Mass/Vol] 4.4 mg/dL Normal 2.7-4.8 [facility] Comment on above: Order Comment: Speci men Type: BLOOD SPECIMENOrdering Facility: [facility] Address: [address] [place] [address] Performed By: #### 1 9123-9, 2777-1, 44491-0 ####[facility] LABCLIA [id number] [place] [id number] [place] TYPE + SCREENon 12-20-2024 ABO O Normal [facility] Comment on above: Order Comment: Speci men Type: BLOOD SPECIMENOrdering Facility: [facility] Address: [address] [place] [address] Performed By: #### T SCR ####[facility] BLO[facility] BANKCLIA [id number] [address] [address] [place] Rh Nom (Bld) Positive Normal [facility] Comment on above: Order Comment: Speci men Type: BLOOD SPECIMENOrdering Facility: [facility] Address: [address] [place] [address] Performed By: #### T SCR ####[facility] BLOOD BANKCLIA [id number] [place] [address] [place] TYPE AND SCREEN EXPIRATION 12/23/2024 23:59 Normal [facility] Comment on above: Order Comment: Speci men Type: BLOOD SPECIMENOrdering Facility: [facility] Address: [address] [place] [address] Performed By: #### T SCR ####[facility] BLOOD BANKCLIA [id number] [place] [address] [place] XR CHEST 1V FRONTALon 2024 XR CHEST 1V FRONTAL Normal [facility] CASE MANAGEMon 12-19-2024 CASE MANAGEM Normal [facility] CBC panel Auto (Bld)on 12-19 Erythrocyte distribution width (RBC) [Ratio] 13.1 % Normal 11.5-15.0 [facility] Comment on above: Order Comment: Speci men Type: BLOOD SPECIMENOrdering Facility: [facility] Address: [address] [place] [address] Performed By: #### 5 8410-2 ####[facility] LABCLIA [id number] [address] [place] Hematocrit (Bld) [Volume fraction] 42.4 % Normal 36.0-46.0 [facility] Comment on above: Order Comment: Speci men Type: BLOOD SPECIMENOrdering Facility: [facility] Address: [address] [place] [address] Performed By: #### 5 8410-2 ####[facility] LABCLIA [id number] [place] [address] [place] Hemoglobin (Bld) [Mass/Vol] 13.9 g/dL Normal 11.5-15.5 [facility] Comment on above: Order Comment: Speci men Type: BLOOD SPECIMENOrdering Facility: [facility] Address: [address] [place] [address] Performed By: #### 5 8410-2 ####[facility] LABIA [id number] [place] [address] [place] MCH (RBC) [Entitic mass] 30.5 pg Normal 26.0-34.0 [facility] Comment on above: Order Comment: Speci men Type: BLOOD SPECIMENOrdering Facility: [facility] Address: [address] [place] [address] Performed By: #### 5 8410-2 ####[facility] LABIA [id number] [place] [address] [place] MCHC (RBC) [Mass/Vol] 32.8 g/dL Normal 30.5-36.0 [facility] Comment on above: Order Comment: Speci men Type: BLOOD SPECIMENOrdering Facility: [facility] Address: [address] [place] [address] Performed By: #### 5 8410-2 ####[facility] LABIA [id number] [place] [address] [place] MCV (RBC) [Entitic vol] 93.0 fL Normal 80.0-100.0 [facility] Comment on above: Order Comment: Speci men Type: BLOOD SPECIMENOrdering Facility: [facility] Address: [address] [place] [address] Performed By: #### 5 8410-2 ####[facility] LABCLIA [id number] [place] [address] [place] Nucleated RBC (Bld) [#/Vol] 0.02 10*3/uL High <0.01 [facility] Comment on above: Order Comment: Speci men Type: BLOOD SPECIMENOrdering Facility: [facility] Address: [address] [place] [address] Performed By: #### 5 8410-2 ####[facility] LABCLIA [id number] [place] [address] [place] Platelet mean volume (Bld) [Entitic vol] 10.3 fL Normal 9.0-12.7 [facility] Comment on above: Order Comment: Speci men Type: BLOOD SPECIMENOrdering Facility: [facility] Address: [address] [place] [address] Performed By: #### 5 8410-2 ####[facility] LABCLIA [id number] [place] [address] [place] Platelets (Bld) [#/Vol] 425 10*3/uL High 150-400 [facility] Comment on above: Order Comment: Speci men Type: BLOOD SPECIMENOrdering Facility: [facility] Address: [address] [place] [address] Performed By: #### 5 8410-2 ####[facility] LABCLIA [id number] [place] [address] [place] RBC (Bld) [#/Vol] 4.56 10*6/uL Normal 3.90-5.20 [facility] Comment on above: Order Comment: Speci men Type: BLOOD SPECIMENOrdering Facility: [facility] Address: [address] [place] [address] Performed By: #### 5 8410-2 ####[facility] LABCLIA [id number] [place] [address] [place] WBC (Bld) [#/Vol] 10.85 10*3/uL Normal 3.70-11.00 [facility] Comment on above: Order Comment: Speci men Type: BLOOD SPECIMENOrdering Facility: [facility] Address: [address] [place] [address] Performed By: #### 5 8410-2 ####[facility] LABIA [id number] [place] [address] [place] Erythrocyte distribution width (RBC) [Ratio] 13.1 % Normal 11.5-15.0 [facility] - [place] Comment on above: Order Comment: Speci men Type: BLOOD SPECIMENOrdering Facility: [facility] Address: [address] [place] [address] Performed By: #### 5 8410-2 ####[facility] LABIA [id number] [place] [address] [place] Hematocrit (Bld) [Volume fraction] 42.6 % Normal 36.0-46.0 [facility] [place] Comment on above: Order Comment: Speci men Type: BLOOD SPECIMENOrdering Facility: [facility] Address: [address] [place] [address] Performed By: #### 5 8410-2 ####[facility] LABIA [id number] [place] [address] [place] Hemoglobin (Bld) [Mass/Vol] 13.6 g/dL Normal 11.5-15.5 [facility] [place] Comment on above: Order Comment: Speci men Type: BLOOD SPECIMENOrdering Facility: [facility] Address: [address] [place] [address] Performed By: #### 5 8410-2 ####[facility] LABIA [id number] [place] [address] [place] MCH (RBC) [Entitic mass] 30.3 pg Normal 26.0-34.0 [facility] Comment on above: Order Comment: Speci men Type: BLOOD SPECIMENOrdering Facility: [facility] Address: [address] [place] [address] Performed By: #### 5 8410-2 ####[facility] LABCLIA [id number] [place] [address] [place] MCHC (RBC) [Mass/Vol] 31.9 g/dL Normal 30.5-36.0 [facility] Comment on above: Order Comment: Speci men Type: BLOOD SPECIMENOrdering Facility: [facility] Address: [address] [place] [address] Performed By: #### 5 8410-2 ####[facility] LABCLIA [id number] [place] [address] [place] MCV (RBC) [Entitic vol] 94.9 fL Normal 80.0-100.0 [facility] Comment on above: Order Comment: Speci men Type: BLOOD SPECIMENOrdering Facility: [facility] Address: [address] [place] [address] Performed By: #### 5 8410-2 ####[facility] LABIA [id number] [place] [address] [place] Nucleated RBC (Bld) [#/Vol] 10*3/uL Normal <0.01 [facility] Comment on above: Order Comment: Speci men Type: BLOOD SPECIMENOrdering Facility: [facility] Address: [address] [place] [address] Performed By: #### 5 8410-2 ####[facility] LABCLIA [id number] [place] [address] [place] Platelet mean volume (Bld) [Entitic vol] 11.4 fL Normal 9.0-12.7 [facility] Comment on above: Order Comment: Speci men Type: BLOOD SPECIMENOrdering Facility: [facility] Address: [address] [place] [address] Performed By: #### 5 8410-2 ####[facility] LABCLIA [id number] [address] [address] [place] Platelets (Bld) [#/Vol] 430 10*3/uL High 150-400 [facility] Comment on above: Order Comment: Speci men Type: BLOOD SPECIMENOrdering Facility: [facility] Address: [address] [place] [address] Performed By: #### 5 8410-2 ####[facility] [id number] [place] [address] [place] RBC (Bld) [#/Vol] 4.49 10*6/uL Normal 3.90-5.20 [facility] Comment on above: Order Comment: Speci men Type: BLOOD SPECIMENOrdering Facility: [facility] Address: [address] [place] [address] Performed By: #### 5 8410-2 ####[facility] [id number] [place] [address] [place] WBC (Bld) [#/Vol] 9.18 10*3/uL Normal 3.70-11.00 [facility] Comment on above: Order Comment: Speci men Type: BLOOD SPECIMENOrdering Facility: [facility] Address: [address] [place] [address] Performed By: #### 5 8410-2 ####[facility] [id number] [place] [id number] [place] CNOVon 12-19-2024 CNOV Normal [facility] CNOV Normal [facility] CONSULT PROGon 12-19-2024 CONSULT PROG Normal [facility] Comprehensive metabolic 2000 panelon 12-19-2024 Albumin [Mass/Vol] 3.3 g/dL Low 3.9-4.9 [facility] Comment on above: Order Comment: Speci men Type: BLOOD SPECIMENOrdering Facility: [facility] Address: [address] [place] [address] Performed By: #### 2 4323-8 ####[facility] LABCLIA [id number] [facility] [id number] [address] [place] ALP [Catalytic activity/Vol] 91 U/L Normal 34-123 [facility] Comment on above: Order Comment: Speci men Type: BLOOD SPECIMENOrdering Facility: [facility] Address: [address] [place] [address] Performed By: #### 2 4323-8 ####[facility] LABCLIA [id number] [facility] [address] [place] [address] [place] ALT [Catalytic activity/Vol] 45 U/L High 7-38 [facility] Comment on above: Order Comment: Speci men Type: BLOOD SPECIMENOrdering Facility: [facility] Address: [address] [place] [address] Performed By: #### 2 4323-8 ####[facility] LABCLIA [id number] [facility] [address], [facility]95 [place] Anion gap [Moles/Vol] 12 mmol/L Normal 8-15 [facility] Comment on above: Order Comment: Speci men Type: BLOOD SPECIMENOrdering Facility: [facility] Address: [address] [place] [address] Performed By: #### 2 4323-8 ####[facility] LABCLIA [id number] [facility] [place] [id number] [place] AST [Catalytic activity/Vol] 42 U/L High 13-35 [facility] Comment on above: Order Comment: Speci men Type: BLOOD SPECIMENOrdering Facility: [facility] Address: [address] [place], [place] [address] Performed By: #### 2 4323-8 ####[facility] LABCLIA [id number] [facility] [address] [address] [place] Bilirubin [Mass/Vol] 0.2 mg/dL Normal 0.2-1.3 [facility] Comment on above: Order Comment: Speci men Type: BLOOD SPECIMENOrdering Facility: [facility] Address: [address] [place] [address] Performed By: #### 2 4323-8 ####[facility] LABCLIA [id number] [address] [address] [place] Calcium [Mass/Vol] 8.9 mg/dL Normal 8.5-10.2 [facility] Comment on above: Order Comment: Speci men Type: BLOOD SPECIMENOrdering Facility: [facility] Address: [address] [place], [place] [address] Performed By: #### 2 4323-8 ####[facility] LABCLIA [id number] [address] [place] [address] [place] Chloride [Moles/Vol] 106 mmol/L Normal 98-107 [facility] Comment on above: Order Comment: Speci men Type: BLOOD SPECIMENOrdering Facility: [facility] Address: [address] [place], [place] [address] Performed By: #### 2 4323-8 ####[facility] LABCLIA [id number] [address] [address] [place] CO2 [Moles/Vol] 19 mmol/L Low 22-30 [facility] Comment on above: Order Comment: Speci men Type: BLOOD SPECIMENOrdering Facility: [facility] Address: [address] [place], [place] [address] Performed By: #### 2 4323-8 ####[facility] LABCLIA [id number] [address] [place] [address] [place] Creatinine [Mass/Vol] 1.42 mg/dL High 0.58-0.96 [facility] Comment on above: Order Comment: Speci men Type: BLOOD SPECIMENOrdering Facility: [facility] Address: [address] [place] [address] Performed By: #### 2 4323-8 ####[facility] LABCLIA [id number] [place] [address] [place] Creatinine and Glomerular filtration rate.predicted panel (S/P/Bld) 40 mL/min/1.73m??? Low >=60 [facility] Comment on above: Order Comment: Marika hammonds Type: BLOOD SPECIMENOrdering Facility: [facility] Address: [address] [place] [address] Result Comment: Maru mated Glomerular Filtration Rate [...] actual GFR. Performed By: #### 2 4323-8 ####[facility] LABIA [id number] [place] [address] [place] Glucose [Mass/Vol] 116 mg/dL High 74-99 [facility] Comment on above: Order Comment: Marika hammonds Type: BLOOD SPECIMENOrdering Facility: [facility] Address: [address] [place] [address] Result Comment: The [place] [employer] (ADA) provides guidance for cutoff [...] Standards of Medical Care in Diabetes 2016, [place] [employer]. Diabetes Care. 2016.39(Suppl 1). Performed By: #### 2 4323-8 ####[facility] LABIA [id number] [place] [id number] [place] Potassium [Moles/Vol] 5.2 mmol/L High 3.7-5.1 [facility] Comment on above: Order Comment: Speci men Type: BLOOD SPECIMENOrdering Facility: [facility] Address: [address] [place] [address] Performed By: #### 2 4323-8 ####[facility] LABCLIA [id number] [facility] AVEN[id number], [place] [address] [place] Protein [Mass/Vol] 6.0 g/dL Low 6.3-8.0 [facility] Comment on above: Order Comment: Speci men Type: BLOOD SPECIMENOrdering Facility: [facility] Address: [address] [place], [place] [address] Performed By: #### 2 4323-8 ####[facility] LABCLIA [id number] [facility] [address] [place] [address] [place] Sodium [Moles/Vol] 137 mmol/L Normal 136-144 [facility] Comment on above: Order Comment: Speci men Type: BLOOD SPECIMENOrdering Facility: [facility] Address: [address] [place], [place] [address] Performed By: #### 2 4323-8 ####[facility] LABCLIA [id number] [facility] [address] [place] [address] [place] Urea nitrogen [Mass/Vol] 35 mg/dL High 7-21 [facility] Comment on above: Order Comment: Speci men Type: BLOOD SPECIMENOrdering Facility: [facility] Address: [address] [place] [address] Performed By: #### 2 4323-8 ####[facility] LABCLIA [id number] [facility] [id number] [place] [address] [place] Albumin [Mass/Vol] 3.4 g/dL Low 3.9-4.9 [facility] Comment on above: Order Comment: Speci men Type: BLOOD SPECIMENOrdering Facility: [facility] Address: [address] [place] [address] Performed By: #### 1 9123-9, 2776-07, 91137-1 ####[facility] LABCLIA [id number] [place] [id number] [place] ALP [Catalytic activity/Vol] 101 U/L Normal 34-123 [facility] Comment on above: Order Comment: Speci men Type: BLOOD SPECIMENOrdering Facility: [facility] Address: [address] [place] [address] Performed By: #### 1 9123-9, 2776-07, 09342-1 ####[facility] LABCLIA [id number] [place] [address] [place] ALT [Catalytic activity/Vol] 42 U/L High 7-38 [facility] Comment on above: Order Comment: Speci men Type: BLOOD SPECIMENOrdering Facility: [facility] Address: [address] [place] [address] Performed By: #### 1 9123-9, 2776-07, 71066-8 ####[facility] LABCLIA [id number] [place] [address] [place] Anion gap [Moles/Vol] 13 mmol/L Normal 8-15 [facility] Comment on above: Order Comment: Speci men Type: BLOOD SPECIMENOrdering Facility: [facility] Address: [address] [place] [address] Performed By: #### 1 9123-9, 2776-07, 67829-0 ####[facility] LABCLIA [id number] [address] [address] [place] AST [Catalytic activity/Vol] 37 U/L High 13-35 [facility] Comment on above: Order Comment: Speci men Type: BLOOD SPECIMENOrdering Facility: [facility] Address: [address] [place] [address] Performed By: #### 1 9123-9, 27701-01, 51941-9 ####[facility] LABCLIA [id number] [address] [address] [place] Bilirubin [Mass/Vol] 0.2 mg/dL Normal 0.2-1.3 [facility] Comment on above: Order Comment: Speci men Type: BLOOD SPECIMENOrdering Facility: [facility] Address: [address] [place] [address] Performed By: #### 1 9123-9, 2776-07, ####[facility] LABCLIA [id number] [address] [address] [place] Calcium [Mass/Vol] 9.7 mg/dL Normal 8.5-10.2 [facility] Comment on above: Order Comment: Speci men Type: BLOOD SPECIMENOrdering Facility: [facility] Address: [address] [place] [address] Performed By: #### 1 9123-9, 2776-07, ####[facility] LABCLIA [id number] [place] [id number] [place] Chloride [Moles/Vol] 105 mmol/L Normal 98-107 [facility] Comment on above: Order Comment: Speci men Type: BLOOD SPECIMENOrdering Facility: [facility] Address: [address] [place], [place] [address] Performed By: #### 1 9123-9, 2776-07, ####[facility] LABCLIA [id number] [address] [address] [place] CO2 [Moles/Vol] 20 mmol/L Low 22-30 [facility] Comment on above: Order Comment: Speci men Type: BLOOD SPECIMENOrdering Facility: [facility] Address: [address] [place], [place] [address] Performed By: #### 1 9123-9, 27701-01, 09510-7 ####[facility] LABCLIA [id number] [place] [id number] [place] Creatinine [Mass/Vol] 1.49 mg/dL High 0.58-0.96 [facility] Comment on above: Order Comment: Marika hammonds Type: BLOOD SPECIMENOrdering Facility: [facility] Address: [address] [place] [address] Performed By: #### 1 9123-9, 2777-, 48661-3 ####[facility] [id number] [address] [place] Creatinine and Glomerular filtration rate.predicted panel (S/P/Bld) 38 mL/min/1.73m??? Low >=60 [facility] Comment on above: Order Comment: Marika hammonds Type: BLOOD SPECIMENOrdering Facility: [facility] Address: [address] [place] [address] Result Comment: Maru mated Glomerular Filtration Rate [...] GFR. Performed By: #### 1 9123-9, 2777-, ####[facility] LABIA [id number] [place] [id number] [place] Glucose [Mass/Vol] 93 mg/dL Normal 74-99 [facility] Comment on above: Order Comment: Marika hammonds Type: BLOOD SPECIMENOrdering Facility: [facility] Address: [address] [place] [address] Result Comment: The [place] Diabetes [employer] (ADA) provides guidance for cutoff [...] Standards of Medical Care in Diabetes 2016, [place] [employer]. Diabetes Care. 2016.39(Suppl 1). Performed By: #### 1 9123-9, 2776-07, ####[facility] LABCLIA [id number] [address] [address] [place] Potassium [Moles/Vol] 4.6 mmol/L Normal 3.7-5.1 [facility] Comment on above: Order Comment: Speci men Type: BLOOD SPECIMENOrdering Facility: [facility] Address: [address] [place] [address] Performed By: #### 1 9123-9, 2776-07, ####[facility] LABCLIA [id number] [place] [id number] [place] Protein [Mass/Vol] 6.4 g/dL Normal 6.3-8.0 [facility] Comment on above: Order Comment: Marika hammonds Type: BLOOD SPECIMENOrdering Facility: [facility] Address: [address] [place] [address] Performed By: #### 1 9123-9, 2776-07, ####[facility] LABCLIA [id number] [place] [id number] [place] Sodium [Moles/Vol] 138 mmol/L Normal 136-144 [facility] Comment on above: Order Comment: Speci men Type: BLOOD SPECIMENOrdering Facility: [facility] Address: [address] [place], [place] [address] Performed By: #### 1 9123-9, 2776-07, ####[facility] LABCLIA [id number] [facility] [address] [place] [address] [place] Urea nitrogen [Mass/Vol] 37 mg/dL High 7-21 [facility] Comment on above: Order Comment: Speci men Type: BLOOD SPECIMENOrdering Facility: [facility] Address: [address] [place] [address] Performed By: #### 1 9123-9, 2777-1, 07348-4 ####[facility] LABCLIA [id number] [place] [address] [place] ECHO LIMITEDon 12-19-2024 ECHO LIMITED Normal [facility] Gas and Carbon monoxide pane l (BldV)on 12-19-2024 BASE DEFICIT, VENOUS -2 mmol/L Normal -2-0 [facility] Comment on above: Order Comment: Speci men Type: VENOUS BLOOD SPECIMENOrdering Facility: [facility] Address: [address] [place] [address] Performed By: #### 2 4344-4 ####[facility] LABCLIA [id number] [place] [address] [place] Body temperature 97.88 [degF] Normal [facility] Comment on above: Order Comment: Speci men Type: VENOUS BLOOD SPECIMENOrdering Facility: [facility] Address: [address] [place] [address] Performed By: #### 2 4344-4 ####[facility] LABCLIA [id number] [place] [address] [place] Calcium.ionized (Bld) [Mass/Vol] 1.20 mmol/L Normal 1.08-1.30 [facility] Comment on above: Order Comment: Speci men Type: VENOUS BLOOD SPECIMENOrdering Facility: [facility] Address: [address] [place] [address] Performed By: #### 2 4344-4 ####[facility] LABCLIA [id number] [place] [address] [place] Calcium.ionized adjusted to pH 7.4 (BldA) [Moles/Vol] 1.13 mmol/L Normal 1.08-1.30 [facility] Comment on above: Order Comment: Speci men Type: VENOUS BLOOD SPECIMENOrdering Facility: [facility] Address: [address] [place] [address] Performed By: #### 2 4344-4 ####[facility] LABCLIA [id number] [address] [address] [place] Carboxyhemoglobin (BldV) [Mass fraction] 0.8 % Normal 0.0-2.0 [facility] Comment on above: Order Comment: Speci men Type: VENOUS BLOOD SPECIMENOrdering Facility: [facility] Address: [address] [place] [address] Result Comment: Carb oxyhemoglobin Reference Range for Smokers: 2.0-8.0% Performed By: #### 2 4344-4 ####[facility] LABCLIA [id number] [place] [id number] [place] CO2 (BldV) [Partial pressure] 52 mm[Hg] Normal 42-55 [facility] Comment on above: Order Comment: Speci men Type: VENOUS BLOOD SPECIMENOrdering Facility: [facility] Address: [address] [place] [address] Performed By: #### 2 4344-4 ####[facility] LABCLIA [id number] [address] [address] [place] CO2 adjusted to patient's actual temperature (BldV) [Partial pressure] 51 mmHg Normal 42-55 [facility] Comment on above: Order Comment: Speci men Type: VENOUS BLOOD SPECIMENOrdering Facility: [facility] Address: [address] [place] [address] Performed By: #### 2 4344-4 ####[facility] LABCLIA [id number] [address] [address] [place] Glucose [Mass/Vol] 120 mg/dL High 60-105 [facility] Comment on above: Order Comment: Speci men Type: VENOUS BLOOD SPECIMENOrdering Facility: [facility] Address: [address] [place] [address] Performed By: #### 2 4344-4 ####[facility] LABCLIA [id number] [place] [address] [place] HCO3 (Bld) [Moles/Vol] 24 mmol/L Normal 24-[address] [facility] Comment on above: Order Comment: Speci men Type: VENOUS BLOOD SPECIMENOrdering Facility: [facility] Address: [address] [place] [address] Performed By: #### 2 4344-4 ####[facility] LABCLIA [id number] [place] [address] [place] Hematocrit (Bld) [Volume fraction] 42.7 % Normal 36.0-46.0 [facility] Comment on above: Order Comment: Speci men Type: VENOUS BLOOD SPECIMENOrdering Facility: [facility] Address: [address] [place] [address] Performed By: #### 2 4344-4 ####[facility] LABCLIA [id number] [place] [address] [place] Hemoglobin (Bld) [Mass/Vol] 13.9 g/dL Normal 11.5-15.5 [facility] Comment on above: Order Comment: Speci men Type: VENOUS BLOOD SPECIMENOrdering Facility: [facility] Address: [address] [place], [place] [id number] Performed By: #### 2 4344-4 ####[facility] LABCLIA [id number] [place] [id number] [place] Lactate [Moles/Vol] 0.9 mmol/L Normal 0.5-2.2 [facility] Comment on above: Order Comment: Speci men Type: VENOUS BLOOD SPECIMENOrdering Facility: [facility] Address: [address] [place], [place] [address] Performed By: #### 2 4344-4 ####[facility] LABCLIA [id number] [place] [id number] [place] LITERS 15 Liters/min Normal [facility] Comment on above: Order Comment: Speci men Type: VENOUS BLOOD SPECIMENOrdering Facility: [facility] Address: [address] [place] [address] Performed By: #### 2 4344-4 ####[facility] LABCLIA [id number] [place] [address] [place] Methemoglobin (Bld) [Mass fraction] 0.6 % Normal 0.0-1.5 [facility] Comment on above: Order Comment: Speci men Type: VENOUS BLOOD SPECIMENOrdering Facility: [facility] Address: [address] [place] [address] Performed By: #### 2 4344-4 ####[facility] LABCLIA [id number] [place] [address] [place] O2 THERAPY NC Humid = Nasal Cannula-Humidified (7-15 LPM) Normal [facility] Comment on above: Order Comment: Speci men Type: VENOUS BLOOD SPECIMENOrdering Facility: [facility] Address: [address] [place] [address] Performed By: #### 2 4344-4 ####[facility] LABCLIA [id number] [place] [id number] [place] Oxygen (BldV) [Partial pressure] 36 mm[Hg] Normal 35-45 [facility] Comment on above: Order Comment: Speci men Type: VENOUS BLOOD SPECIMENOrdering Facility: [facility] Address: [address] [place], [place] [address] Performed By: #### 2 4344-4 ####[facility] LABCLIA [id number] [place] [id number] [place] Oxygen adjusted to patient's actual temperature (BldV) [Partial pressure] 35 mmHg Normal 35-45 [facility] Comment on above: Order Comment: Speci men Type: VENOUS BLOOD SPECIMENOrdering Facility: [facility] Address: [address] [place] [address] Performed By: #### 2 4344-4 ####[facility] LABCLIA [id number] [address] [address] [place] Oxygen saturation in Venous blood 57 % Low 60-85 [facility] Comment on above: Order Comment: Speci men Type: VENOUS BLOOD SPECIMENOrdering Facility: [facility] Address: [address] [place], [place] [address] Performed By: #### 2 4344-4 ####[facility] LABCLIA [id number] [address] [address] [place] Oxyhemoglobin (BldV) [Mass fraction] 56 % Low 60-85 [facility] Comment on above: Order Comment: Speci men Type: VENOUS BLOOD SPECIMENOrdering Facility: [facility] Address: [address] [place], [place] [address] Performed By: #### 2 4344-4 ####[facility] LABCLIA [id number] [address] [address] [place] pH (BldV) 7.30 [pH] Low 7.32-7.42 [facility] Comment on above: Order Comment: Speci men Type: VENOUS BLOOD SPECIMENOrdering Facility: [facility] Address: [address] [place], [place] [address] Performed By: #### 2 4344-4 ####[facility] LABCLIA [id number] [address] [address] [place] pH adjusted to patient's actual temperature (BldV) 7.30 Low 7.32-7.42 [facility] Comment on above: Order Comment: Speci men Type: VENOUS BLOOD SPECIMENOrdering Facility: [facility] Address: [address] [place] [address] Performed By: #### 2 4344-4 ####[facility] LABCLIA [id number] [place] [id number] [place] Potassium [Moles/Vol] 4.9 mmol/L Normal 3.5-5.0 [facility] Comment on above: Order Comment: Speci men Type: VENOUS BLOOD SPECIMENOrdering Facility: [facility] Address: [address] [place] [address] Performed By: #### 2 4344-4 ####[facility] LABCLIA [id number] [place] [address] [place] Sodium [Moles/Vol] 134 mmol/L Low 136-144 [facility] Comment on above: Order Comment: Speci men Type: VENOUS BLOOD SPECIMENOrdering Facility: [facility] Address: [address] [place] [address] Performed By: #### 2 4344-4 ####[facility] LABIA [id number] [place] [address] [place] BASE DEFICIT, VENOUS -5 mmol/L Low -2-0 [facility] Comment on above: Order Comment: Speci men Type: VENOUS BLOOD SPECIMENOrdering Facility: [facility] Address: [address] [place] [address] Performed By: #### 2 4344-4 ####[facility] LABIA [id number] [place] [address] [place] Body temperature 96.26 [degF] Normal [facility] Comment on above: Order Comment: Speci men Type: VENOUS BLOOD SPECIMENOrdering Facility: [facility] Address: [address] [place], [place] [address] Performed By: #### 2 4344-4 ####[facility] LABIA [id number] [place] [id number] [place] Calcium.ionized (Bld) [Mass/Vol] 1.23 mmol/L Normal 1.08-1.30 [facility] Comment on above: Order Comment: Speci men Type: VENOUS BLOOD SPECIMENOrdering Facility: [facility] Address: [address] [place] [address] Performed By: #### 2 4344-4 ####[facility] LABIA [id number] [place] [address] [place] Calcium.ionized adjusted to pH 7.4 (BldA) [Moles/Vol] 1.18 mmol/L Normal 1.08-1.30 [facility] Comment on above: Order Comment: Speci men Type: VENOUS BLOOD SPECIMENOrdering Facility: [facility] Address: [address] [place] [address] Performed By: #### 2 4344-4 ####[facility] LABIA [id number] [place] [address] [place] Carboxyhemoglobin (BldV) [Mass fraction] 1.5 % Normal 0.0-2.0 [facility] Comment on above: Order Comment: Speci men Type: VENOUS BLOOD SPECIMENOrdering Facility: [facility] Address: [address] [place] [address] Result Comment: Carb oxyhemoglobin Reference Range for Smokers: 2.0-8.0% Performed By: #### 2 4344-4 ####[facility] LABIA [id number] [place] [address] [place] CO2 (BldV) [Partial pressure] 41 mm[Hg] Low 42-55 [facility] Comment on above: Order Comment: Speci men Type: VENOUS BLOOD SPECIMENOrdering Facility: [facility] Address: [address] [place], [place] [address] Performed By: #### 2 4344-4 ####[facility] LABCLIA [id number] [place] [id number] [place] CO2 adjusted to patient's actual temperature (BldV) [Partial pressure] 39 mmHg Low 42-55 [facility] Comment on above: Order Comment: Speci men Type: VENOUS BLOOD SPECIMENOrdering Facility: [facility] Address: [address] [place] [address] Performed By: #### 2 4344-4 ####[facility] LABCLIA [id number] [place] [id number] [place] Glucose [Mass/Vol] 174 mg/dL High 60-105 [facility] Comment on above: Order Comment: Speci men Type: VENOUS BLOOD SPECIMENOrdering Facility: [facility] Address: [address] [place] [address] Performed By: #### 2 4344-4 ####[facility] LABCLIA [id number] [place] [address] [place] HCO3 (Bld) [Moles/Vol] 21 mmol/L Low 24-[address] [facility] Comment on above: Order Comment: Speci men Type: VENOUS BLOOD SPECIMENOrdering Facility: [facility] Address: [address] [place] [address] Performed By: #### 2 4344-4 ####[facility] LABCLIA [id number] [place] [address] [place] Hematocrit (Bld) [Volume fraction] 45.3 % Normal 36.0-46.0 [facility] Comment on above: Order Comment: Speci men Type: VENOUS BLOOD SPECIMENOrdering Facility: [facility] Address: [address] [place] [address] Performed By: #### 2 4344-4 ####[facility] LABCLIA [id number] [address] [address] [place] Hemoglobin (Bld) [Mass/Vol] 14.8 g/dL Normal 11.5-15.5 [facility] Comment on above: Order Comment: Speci men Type: VENOUS BLOOD SPECIMENOrdering Facility: [facility] Address: [address] [place], [place] [address] Performed By: #### 2 4344-4 ####[facility] LABCLIA [id number] [address] [address] [place] Lactate [Moles/Vol] 2.2 mmol/L Normal 0.5-2.2 [facility] Comment on above: Order Comment: Speci men Type: VENOUS BLOOD SPECIMENOrdering Facility: [facility] Address: [address] [place] [address] Performed By: #### 2 4344-4 ####[facility] LABCLIA [id number] [place] [id number] [place] LITERS 6 Liters/min Normal [facility] Comment on above: Order Comment: Speci men Type: VENOUS BLOOD SPECIMENOrdering Facility: [facility] Address: [address] [place] [address] Performed By: #### 2 4344-4 ####[facility] LABCLIA [id number] [place] [address] [place] Methemoglobin (Bld) [Mass fraction] 0.5 % Normal 0.0-1.5 [facility] Comment on above: Order Comment: Speci men Type: VENOUS BLOOD SPECIMENOrdering Facility: [facility] Address: [address] [place] [address] Performed By: #### 2 4344-4 ####[facility] LABCLIA [id number] [place] [id number] [place] O2 THERAPY NC = Nasal Cannula Normal [facility] Comment on above: Order Comment: Speci men Type: VENOUS BLOOD SPECIMENOrdering Facility: [facility] Address: [address] [place], [place] [address] Performed By: #### 2 4344-4 ####[facility] LABCLIA [id number] [place] [id number] [place] Oxygen (BldV) [Partial pressure] 48 mm[Hg] High 35-45 [facility] Comment on above: Order Comment: Speci men Type: VENOUS BLOOD SPECIMENOrdering Facility: [facility] Address: [address] [place] [address] Performed By: #### 2 4344-4 ####[facility] LABCLIA [id number] [address] [address] [place] Oxygen adjusted to patient's actual temperature (BldV) [Partial pressure] 44 mmHg Normal 35-45 [facility] Comment on above: Order Comment: Speci men Type: VENOUS BLOOD SPECIMENOrdering Facility: [facility] Address: [address] [place], [place] [address] Performed By: #### 2 4344-4 ####[facility] LABCLIA [id number] [address] [address] [place] Oxygen saturation in Venous blood 78 % Normal 60-85 [facility] Comment on above: Order Comment: Speci men Type: VENOUS BLOOD SPECIMENOrdering Facility: [facility] Address: [address] [place], [place] [address] Performed By: #### 2 4344-4 ####[facility] LABCLIA [id number] [address] [place] [address] [place] Oxyhemoglobin (BldV) [Mass fraction] 76 % Normal 60-85 [facility] Comment on above: Order Comment: Speci men Type: VENOUS BLOOD SPECIMENOrdering Facility: [facility] Address: [address] [place] [address] Performed By: #### 2 4344-4 ####[facility] LABCLIA [id number] [address] [place] [address] [place] pH (BldV) 7.32 [pH] Normal 7.32-7.42 [facility] Comment on above: Order Comment: Speci men Type: VENOUS BLOOD SPECIMENOrdering Facility: [facility] Address: [address] [place] [address] Performed By: #### 2 4344-4 ####[facility] LABCLIA [id number] [address] [address] [place] pH adjusted to patient's actual temperature (BldV) 7.34 Normal 7.32-7.42 [facility] Comment on above: Order Comment: Speci men Type: VENOUS BLOOD SPECIMENOrdering Facility: [facility] Address: [address] [place] [address] Performed By: #### 2 4344-4 ####[facility] LABCLIA [id number] [place] [address] [place] Potassium [Moles/Vol] 5.1 mmol/L High 3.5-5.0 [facility] Comment on above: Order Comment: Speci men Type: VENOUS BLOOD SPECIMENOrdering Facility: [facility] Address: [address] [place] [address] Performed By: #### 2 4344-4 ####[facility] LABIA [id number] [place] [address] [place] Sodium [Moles/Vol] 133 mmol/L Low 136-144 [facility] Comment on above: Order Comment: Speci men Type: VENOUS BLOOD SPECIMENOrdering Facility: [facility] Address: [address] [place] [address] Performed By: #### 2 4344-4 ####[facility] LABIA [id number] [place] [id number] [place] HISTORY PHYSICALon HISTORY PHYSICAL Normal [facility] LUNG DIFFUSION CAPACITY (TOMY O)on 12-19-2024 LUNG DIFFUSION CAPACITY (DLCO) Normal [facility] Lidocain SerPl-mCncon 2024 Lidocaine [Mass/Vol] 1.0 ug/mL Low 1.5-5.0 [facility] Comment on above: Order Comment: Speci men Type: BLOOD SPECIMENOrdering Facility: [facility] Address: [address] [place] [address] Result Comment: Refe rence ranges and high/low indicator flags are provided as general guidelines only. The treating physician must determine appropriate target levels/dosing based on the specific clinical situation.This test was developed, and its performance characteristics determined by the [facility] Department of Pathology and Laboratory Medicine. It has not been cleared or approved by the FDA. The [facility] Department of Pathology and Laboratory Medicine is regulated under CLIA as qualified to perform high-complexity testing. This test is used for clinical purposes. It should not be regarded as investigational or for research. Performed By: #### 3 714-3 ####[facility] [id number] [place] [address] [place] Magnesium SerPl-mCncon 12-19 Magnesium [Mass/Vol] 2.3 mg/dL Normal 1.7-2.3 [facility] Comment on above: Order Comment: Speci men Type: BLOOD SPECIMENOrdering Facility: [facility] Address: [address] [place] [address] Performed By: #### 1 9123-9, 2777-1, 02779-5 ####[facility] [id number] [place] [address] [place] NURSING PROGon 12-19-2024 NURSING PROG Normal [facility] PTT, ANTICOAGULANT THERAPYon 12-19-2024 aPTT Coag (PPP) [Time] 63.0 s High 23.0-32.[address] [facility] Comment on above: Order Comment: Speci men Type: BLOOD SPECIMENOrdering Facility: [facility] Address: [address] [place] [address] Performed By: #### P TTAC ####[facility] [id number] [place] [id number] [place] Phosphate SerPl-mCncon 12-19 Phosphate [Mass/Vol] 4.2 mg/dL Normal 2.7-4.8 [facility] Comment on above: Order Comment: Speci men Type: BLOOD SPECIMENOrdering Facility: [facility] Address: [address] [place] [address] Performed By: #### 1 9123-9, 2777-1, 31488-9 ####[facility] LABCLIA [id number] [place] [address] [place] SPIROMETRY - BASELINE AND PO ST DILATORon 12-19-2024 SPIROMETRY - BASELINE AND POST DILATOR Normal [facility] STAPHYLOCOCCUS AUREUS AND MR SA SCREEN, PCR, NASALon 12-19-2024 S. aureus and MRSA panel CELIA+probe (Nose) Not detected Normal Not Detected [facility] Comment on above: Order Comment: Speci men Type: SWABOrdering Facility: [facility] Address: [address] [place] [address] Performed By: #### S APCR ####[facility] LABCLIA [id number] [place] [address] [place] THERAPY NTon 12-19-2024 THERAPY NT Normal [facility] XR CHEST 1V FRONTAL PORTon 0 12-19-2024 XR CHEST 1V FRONTAL PORT Normal [facility] XR CHEST 1V FRONTAL PORT Normal [facility] ALLIED HEALTHon 12-18-2024 ALLIED HEALTH Normal [facility] CBC panel Auto (Bld)on 12-18 Erythrocyte distribution width (RBC) [Ratio] 13.0 % Normal 11.5-15.0 [facility] Comment on above: Order Comment: Speci men Type: BLOOD SPECIMENOrdering Facility: [facility] Address: [address] [place] [address] Performed By: #### 5 8410-2 ####[facility] LABCLIA [id number] [place] [id number] [place] Hematocrit (Bld) [Volume fraction] 44.0 % Normal 36.0-46.0 [facility] Comment on above: Order Comment: Speci men Type: BLOOD SPECIMENOrdering Facility: [facility] Address: [address] [place] [address] Performed By: #### 5 8410-2 ####[facility] LABCLIA [id number] [place] [address] [place] Hemoglobin (Bld) [Mass/Vol] 14.1 g/dL Normal 11.5-15.5 [facility] Comment on above: Order Comment: Speci men Type: BLOOD SPECIMENOrdering Facility: [facility] Address: [address] [place] [address] Performed By: #### 5 8410-2 ####[facility] LABIA [id number] [place] [address] [place] MCH (RBC) [Entitic mass] 30.6 pg Normal 26.0-34.0 [facility] Comment on above: Order Comment: Speci men Type: BLOOD SPECIMENOrdering Facility: [facility] Address: [address] [place] [address] Performed By: #### 5 8410-2 ####[facility] LABIA [id number] [address] [place] MCHC (RBC) [Mass/Vol] 32.0 g/dL Normal 30.5-36.0 [facility] Comment on above: Order Comment: Speci men Type: BLOOD SPECIMENOrdering Facility: [facility] Address: [address] [place] [address] Performed By: #### 5 8410-2 ####[facility] LABIA [id number] [place] [address] [place] MCV (RBC) [Entitic vol] 95.4 fL Normal 80.0-100.0 [facility] Comment on above: Order Comment: Speci men Type: BLOOD SPECIMENOrdering Facility: [facility] Address: [address] [place] [address] Performed By: #### 5 8410-2 ####[facility] LABCLIA [id number] [place] [address] [place] Nucleated RBC (Bld) [#/Vol] 10*3/uL Normal <0.01 [facility] Comment on above: Order Comment: Speci men Type: BLOOD SPECIMENOrdering Facility: [facility] Address: [address] [place] [address] Performed By: #### 5 8410-2 ####[facility] LABIA [id number] [place] [address] [place] Platelet mean volume (Bld) [Entitic vol] 11.0 fL Normal 9.0-12.7 [facility] Comment on above: Order Comment: Speci men Type: BLOOD SPECIMENOrdering Facility: [facility] Address: [address] [place] [address] Performed By: #### 5 8410-2 ####[facility] LABIA [id number] [place] [address] [place] Platelets (Bld) [#/Vol] 458 10*3/uL High 150-400 [facility] Comment on above: Order Comment: Speci men Type: BLOOD SPECIMENOrdering Facility: [facility] Address: [address] [place] [address] Performed By: #### 5 8410-2 ####[facility] LABIA [id number] [place] [address] [place] RBC (Bld) [#/Vol] 4.61 10*6/uL Normal 3.90-5.20 [facility] Comment on above: Order Comment: Speci men Type: BLOOD SPECIMENOrdering Facility: [facility] Address: [address] [place] [address] Performed By: #### 5 8410-2 ####[facility] LABIA [id number] [place] [address] [place] WBC (Bld) [#/Vol] 8.76 10*3/uL Normal 3.70-11.00 [facility] Comment on above: Order Comment: Speci men Type: BLOOD SPECIMENOrdering Facility: [facility] Address: [address] [place] [address] Performed By: #### 5 8410-2 ####[facility] LABCLIA [id number] [address] [address] [place] CNOVon 12-18-2024 CNOV Normal [facility] CONSULTon 12-18-2024 CONSULT Normal [facility] CONSULT PROGon 12-18-2024 CONSULT PROG Normal [facility] CONSULT PROG Normal [facility] Comprehensive metabolic 2000 panelon 12-18-2024 Albumin [Mass/Vol] 3.5 g/dL Low 3.9-4.9 [facility] Comment on above: Order Comment: Speci men Type: BLOOD SPECIMENOrdering Facility: [facility] Address: [address] [place] [address] Performed By: #### 2 4323-8, ####[facility] LABCLIA [id number] [place] [id number] [place] ALP [Catalytic activity/Vol] 94 U/L Normal 34-123 [facility] [place] Comment on above: Order Comment: Speci men Type: BLOOD SPECIMENOrdering Facility: [facility] Address: [address] [place] [address] Performed By: #### 2 4323-8, ####[facility] LABCLIA [id number] [place] [id number] [place] ALT [Catalytic activity/Vol] 48 U/L High 7-38 [facility] [place] Comment on above: Order Comment: Speci men Type: BLOOD SPECIMENOrdering Facility: [facility] Address: [address] [place] [address] Performed By: #### 2 4323-8, ####[facility] LABCLIA [id number] [address] [address] [place] Anion gap [Moles/Vol] 14 mmol/L Normal 8-15 [facility] Comment on above: Order Comment: Speci men Type: BLOOD SPECIMENOrdering Facility: [facility] Address: [address] [place], [place] [address] Performed By: #### 2 432-8, ####[facility] LABCLIA [id number] [address] [address] [place] AST [Catalytic activity/Vol] 43 U/L High 13-35 [facility] [place] Comment on above: Order Comment: Speci men Type: BLOOD SPECIMENOrdering Facility: [facility] Address: [address] [place], [place] [address] Performed By: #### 2 432-8, ####[facility] LABCLIA [id number] [place] [id number] [place] Bilirubin [Mass/Vol] mg/dL Low 0.2-1.3 [facility] Comment on above: Order Comment: Speci men Type: BLOOD SPECIMENOrdering Facility: [facility] Address: [address] [place], [place] [address] Performed By: #### 2 432-8, ####[facility] LABIA [id number] [place] [id number] [place] Calcium [Mass/Vol] 9.7 mg/dL Normal 8.5-10.2 [facility] Comment on above: Order Comment: Speci men Type: BLOOD SPECIMENOrdering Facility: [facility] Address: [address] [place], [place] [address] Performed By: #### 2 4323-8, ####[facility] LABIA [id number] [place] [id number] [place] Chloride [Moles/Vol] 103 mmol/L Normal 98-107 [facility] Comment on above: Order Comment: Speci men Type: BLOOD SPECIMENOrdering Facility: [facility] Address: [address] [place], [place] [address] Performed By: #### 2 4323-8, ####[facility] LABIA [id number] [place] [id number] [place] CO2 [Moles/Vol] 21 mmol/L Low 22-30 [facility] [place] Comment on above: Order Comment: Speci men Type: BLOOD SPECIMENOrdering Facility: [facility] Address: [address] [place] [address] Performed By: #### 2 4328, ####[facility] LABIA [id number] [place] [id number] [place] Creatinine [Mass/Vol] 1.28 mg/dL High 0.58-0.96 [facility] Comment on above: Order Comment: Speci men Type: BLOOD SPECIMENOrdering Facility: [facility] Address: [address] [place] [address] Performed By: #### 2 4328, ####[facility] [id number] [place] [address] [place] Creatinine and Glomerular filtration rate.predicted panel (S/P/Bld) 46 mL/min/1.73m??? Low >=60 [facility] [place] Comment on above: Order Comment: Speci men Type: BLOOD SPECIMENOrdering Facility: [facility] Address: [address] [place] [address] Result Comment: Maru mated Glomerular Filtration Rate [...] actual GFR. Performed By: #### 2 4323-8, ####[facility] LABIA [id number] [address] [address] [place] Glucose [Mass/Vol] 128 mg/dL High 74-99 [facility] Comment on above: Order Comment: Speci men Type: BLOOD SPECIMENOrdering Facility: [facility] Address: [address] [place] [address] Result Comment: The [place] Diabetes [employer] (ADA) provides guidance for cutoff [...] Standards of Medical Care in Diabetes 2016, [place] [employer]. Diabetes Care. 2016.39(Suppl 1). Performed By: #### 2 4323-8, ####[facility] LABCLIA [id number] [place] [address] [place] Potassium [Moles/Vol] 4.2 mmol/L Normal 3.7-5.1 [facility] Comment on above: Order Comment: Marika hammonds Type: BLOOD SPECIMENOrdering Facility: [facility] Address: [address] [place] [address] Performed By: #### 2 4323-8, ####[facility] LABCLIA [id number] [place] [id number] [place] Protein [Mass/Vol] 6.6 g/dL Normal 6.3-8.0 [facility] Comment on above: Order Comment: Cobyi men Type: BLOOD SPECIMENOrdering Facility: [facility] Address: [address] [place] [phone] Performed By: #### 2 4323-8, ####[facility] LABCLIA [id number] [place] [id number] [place] Sodium [Moles/Vol] 138 mmol/L Normal 136-144 [facility] Comment on above: Order Comment: Speci men Type: BLOOD SPECIMENOrdering Facility: [facility] Address: [address] [place] [address] Performed By: #### 2 4323-8, ####[facility] LABCLIA [id number] [place] [id number] [place] Urea nitrogen [Mass/Vol] 29 mg/dL High 7-21 [facility] [place] Comment on above: Order Comment: Speci men Type: BLOOD SPECIMENOrdering Facility: [facility] Address: [address] [place] [address] Performed By: #### 2 4323-8, ####[facility] LABIA [id number] [place] [id number] [place] Magnesium SerPl-mCncon 12-18 Magnesium [Mass/Vol] 2.3 mg/dL Normal 1.7-2.3 [facility] Comment on above: Order Comment: Speci men Type: BLOOD SPECIMENOrdering Facility: [facility] Address: [address] [place] [address] Performed By: #### 2 432-8, ####[facility] LABIA [id number] [place] [id number] [place] PTT, ANTICOAGULANT THERAPYon 12-18-2024 aPTT Coag (PPP) [Time] 64.9 s High 23.0-32.[address] [facility] Comment on above: Order Comment: Speci men Type: BLOOD SPECIMENOrdering Facility: [facility] Address: [address] [place] [address] Performed By: #### P TTAC ####[facility] LABCLIA [id number] [address] [address] [place] US LEG VEIN MAP [facility] LABo n 12-18-2024 US LEG VEIN MAP [facility] LAB Normal [facility] [place] US MAMMARY ARTERY RAMAN [facility]AS LA Bon 12-18-2024 US MAMMARY ARTERY [facility] LAB Normal [facility] [place] US RADIAL ARTERY MAP [facility]AS LABon 12-18-2024 US RADIAL ARTERY MAP [facility] LAB Normal [facility] [place] CASE MANAGEMon 12-17-2024 CASE MANAGEM Normal [facility] [place] CASE MGT INIT ASSESon 2024 CASE MGT INIT ASSES Normal [facility] CBC panel Auto (Bld)on 12-17 Erythrocyte distribution width (RBC) [Ratio] 13.0 % Normal 11.5-15.0 [facility] Comment on above: Order Comment: Speci men Type: BLOOD SPECIMENOrdering Facility: [facility] Address: [address] [place] [address] Performed By: #### 5 8410-2 ####[facility] LABIA [id number] [place] [address] [place] Hematocrit (Bld) [Volume fraction] 44.8 % Normal 36.0-46.0 [facility] Comment on above: Order Comment: Speci men Type: BLOOD SPECIMENOrdering Facility: [facility] Address: [address] [place] [address] Performed By: #### 5 8410-2 ####[facility] LABIA [id number] [place] [address] [place] Hemoglobin (Bld) [Mass/Vol] 14.4 g/dL Normal 11.5-15.5 [facility] Comment on above: Order Comment: Speci men Type: BLOOD SPECIMENOrdering Facility: [facility] Address: [address] [place] [address] Performed By: #### 5 8410-2 ####[facility] LABIA [id number] [place] [address] [place] MCH (RBC) [Entitic mass] 29.6 pg Normal 26.0-34.0 [facility] [place] Comment on above: Order Comment: Speci men Type: BLOOD SPECIMENOrdering Facility: [facility] Address: [address] [place] [address] Performed By: #### 5 8410-2 ####[facility] LABIA [id number] [place] [address] [place] MCHC (RBC) [Mass/Vol] 32.1 g/dL Normal 30.5-36.0 [facility] Comment on above: Order Comment: Speci men Type: BLOOD SPECIMENOrdering Facility: [facility] Address: [address] [place] [address] Performed By: #### 5 8410-2 ####[facility] LABIA [id number] [place] [address] [place] MCV (RBC) [Entitic vol] 92.2 fL Normal 80.0-100.0 [facility] Comment on above: Order Comment: Speci men Type: BLOOD SPECIMENOrdering Facility: [facility] Address: [address] [place] [address] Performed By: #### 5 8410-2 ####[facility] LABIA [id number] [place] [address] [place] Nucleated RBC (Bld) [#/Vol] 10*3/uL Normal <0.01 [facility] [place] Comment on above: Order Comment: Speci men Type: BLOOD SPECIMENOrdering Facility: [facility] Address: [address] [place] [address] Performed By: #### 5 8410-2 ####[facility] LABCLIA [id number] [place] [address] [place] Platelet mean volume (Bld) [Entitic vol] 10.2 fL Normal 9.0-12.7 [facility] [place] Comment on above: Order Comment: Speci men Type: BLOOD SPECIMENOrdering Facility: [facility] Address: [address] [place] [address] Performed By: #### 5 8410-2 ####[facility] LABCLIA [id number] [place] [id number] [place] Platelets (Bld) [#/Vol] 443 10*3/uL High 150-400 [facility] Comment on above: Order Comment: Speci men Type: BLOOD SPECIMENOrdering Facility: [facility] Address: [address] [place] [address] Performed By: #### 5 8410-2 ####[facility] [id number] [place] [address] [place] RBC (Bld) [#/Vol] 4.86 10*6/uL Normal 3.90-5.20 [facility] Comment on above: Order Comment: Speci men Type: BLOOD SPECIMENOrdering Facility: [facility] Address: [address] [place] [address] Performed By: #### 5 8410-2 ####[facility] [id number] [place] [address] [place] WBC (Bld) [#/Vol] 9.65 10*3/uL Normal 3.70-11.00 [facility] Comment on above: Order Comment: Speci men Type: BLOOD SPECIMENOrdering Facility: [facility] Address: [address] [place] [address] Performed By: #### 5 8410-2 ####[facility] [id number] [place] [id number] [place] CONSULTon 12-17-2024 CONSULT Normal [facility] CONSULT Normal [facility] CONSULT Normal [facility] Comprehensive metabolic 2000 panelon 12-17-2024 Albumin [Mass/Vol] 3.3 g/dL Low 3.9-4.9 [facility] Comment on above: Order Comment: Speci men Type: BLOOD SPECIMENOrdering Facility: [facility] Address: [address] [place] [address] Performed By: #### H STNT, 3051-0, 87326-2, 32900-9, 33588-2, 3024-7 ####[facility] LABCLIA [id number] [address] [address] [place] ALP [Catalytic activity/Vol] 85 U/L Normal 34-123 [facility] Comment on above: Order Comment: Speci men Type: BLOOD SPECIMENOrdering Facility: [facility] Address: [address] [place] [address] Performed By: #### H STNT, 3051-0, 01154-6, 35776-3, 92385-6, 3024-7 ####[facility] LABIA [id number] [place] [id number] [place] ALT [Catalytic activity/Vol] 45 U/L High 7-38 [facility] Comment on above: Order Comment: Speci men Type: BLOOD SPECIMENOrdering Facility: [facility] Address: [address] [place] [address] Performed By: #### H STNT, 3051-0, 43373-2, 34416-6, 16863-7, 3024-7 ####[facility] LABIA [id number] [place] [id number] [place] Anion gap [Moles/Vol] 14 mmol/L Normal 8-15 [facility] Comment on above: Order Comment: Speci men Type: BLOOD SPECIMENOrdering Facility: [facility] Address: [address] [place] [address] Performed By: #### H STNT, 3051-0, 21166-6, 62066-1, 95350-6, 3024-7 ####[facility] LABIA [id number] [place] [id number] [place] AST [Catalytic activity/Vol] 51 U/L High 13-35 [facility] Comment on above: Order Comment: Speci men Type: BLOOD SPECIMENOrdering Facility: [facility] Address: [address], [place] [address] Performed By: #### H STNT, 3051-0, 31160-9, 33906-5, 42238-6, 3023-7 ####[facility] LABCLIA [id number] [address] [address] [place] Bilirubin [Mass/Vol] mg/dL Low 0.2-1.3 [facility] Comment on above: Order Comment: Speci men Type: BLOOD SPECIMENOrdering Facility: [facility] Address: [address] [place] [address] Performed By: #### H STNT, 3051-0, 13121-1, 36264-7, 51072-8, 3023-7 ####[facility] LABCLIA [id number] [address] [address] [place] Calcium [Mass/Vol] 9.5 mg/dL Normal 8.5-10.2 [facility] Comment on above: Order Comment: Speci men Type: BLOOD SPECIMENOrdering Facility: [facility] Address: [address] [place], [place] [address] Performed By: #### H STNT, 3051-0, 48239-4, 12227-5, 49004-7, 3023-7 ####[facility] LABCLIA [id number] [address] [address] [place] Chloride [Moles/Vol] 105 mmol/L Normal 98-107 [facility] Comment on above: Order Comment: Speci men Type: BLOOD SPECIMENOrdering Facility: [facility] Address: [address] [place], [place] [address] Performed By: #### H STNT, 3051-0, 57648-5, 40915-8, 20728-4, 3023-7 ####[facility] LABCLIA [id number] [address] [address] [place] CO2 [Moles/Vol] 17 mmol/L Low 22-30 [facility] Comment on above: Order Comment: Speci men Type: BLOOD SPECIMENOrdering Facility: [facility] Address: [address] [place] [address] Performed By: #### H STNT, 3051-0, 17547-1, 90889-8, 03887-8, 3024-7 ####[facility] LABCLIA [id number] [facility] [place] [facility] [address] [address] [place] Creatinine [Mass/Vol] 1.29 mg/dL High 0.58-0.96 [facility] Comment on above: Order Comment: Cobyi men Type: BLOOD SPECIMENOrdering Facility: [facility] Address: [address] [place] [address] Performed By: #### H STNT, 3051-0, 16195-7, 16552-8, 89548-3, 4-7 ####[facility] LABCLIA [id number] [facility] [address] [address] [place] Creatinine and Glomerular filtration rate.predicted panel (S/P/Bld) 45 mL/min/1.73m??? Low >=60 [facility] Comment on above: Order Comment: Marika hammonds Type: BLOOD SPECIMENOrdering Facility: [facility] Address: [address] [place] [address] Result Comment: Maru mated Glomerular Filtration Rate [...] GFR. Performed By: #### H STNT, 3051-0, 92101-4, 77765-9, 10495-8, 3024-7 ####[facility] LABCLIA [id number] [facility] [id number] [place] [address] [place] Glucose [Mass/Vol] 113 mg/dL High 74-99 [facility] Comment on above: Order Comment: Speci men Type: BLOOD SPECIMENOrdering Facility: [facility] Address: [address] [place] [address] Result Comment: The [place] [employer] (ADA) provides guidance for cutoff [...] Standards of Medical Care in Diabetes 2016, [place] [employer]. Diabetes Care. 2016.39(Suppl 1). Performed By: #### H STNT, 3051-0, 19037-4, 89176-1, 11312-8, 3024-7 ####[facility] LABCLIA [id number] [place] [id number] [place] Potassium [Moles/Vol] 4.4 mmol/L Normal 3.7-5.1 [facility] Comment on above: Order Comment: Cobyi men Type: BLOOD SPECIMENOrdering Facility: [facility] Address: [address] [place] [address] Performed By: #### H STNT, 3051-0, 69852-0, 63192-0, 22034-5, 3024-7 ####[facility] LABIA [id number] [place] [id number] [place] Protein [Mass/Vol] 6.7 g/dL Normal 6.3-8.0 [facility] Comment on above: Order Comment: Cobyi men Type: BLOOD SPECIMENOrdering Facility: [facility] Address: [address] [place] [id number] Performed By: #### H STNT, 3051-0, 30991-2, 11199-0, 04173-6, 3024-7 ####[facility] LABCLIA [id number] [address] [address] [place] Sodium [Moles/Vol] 136 mmol/L Normal 136-144 [facility] Comment on above: Order Comment: Speci men Type: BLOOD SPECIMENOrdering Facility: [facility] Address: [address] [place] [address] Performed By: #### H STNT, 3051-0, 92453-8, 21369-8, 04992-9, 3024-7 ####[facility] LABCLIA [id number] [address] [address] [place] Urea nitrogen [Mass/Vol] 34 mg/dL High 7-21 [facility] Comment on above: Order Comment: Speci men Type: BLOOD SPECIMENOrdering Facility: [facility] Address: [address] [place] [address] Performed By: #### H STNT, 3051-0, 96978-8, 08788-9, 47132-9, 3024-7 ####[facility] LABIA [id number] [place] [id number] [place] HIGH SENSITIVITY TROPONIN To n 12-17-2024 Troponin T.cardiac High sensitivity method [Mass/Vol] 525 ng/L High <12 [facility] Comment on above: Order Comment: Speci men Type: BLOOD SPECIMENOrdering Facility: [facility] Address: [address] [place] [address] Performed By: #### H STNT, 3051-0, 97249-5, 13458-3, 07453-3, 3024-7 ####[facility] LABIA [id number] [address] [address] [place] Iron and Iron binding capaci ty panelon 12-17-2024 Iron [Mass/Vol] 221 ug/dL High 41-186 [facility] Comment on above: Order Comment: Speci men Type: BLOOD SPECIMENOrdering Facility: [facility] Address: [address] [place] [address] Performed By: #### H STNT, 3051-0, 80606-0, 00089-8, 36449-1, 3024-7 ####[facility] LABCLIA [id number] [address] [address] [place] Iron binding capacity [Mass/Vol] <238 Normal 232-386 [facility] Comment on above: Order Comment: Speci men Type: BLOOD SPECIMENOrdering Facility: [facility] Address: [address] [place] [address] Performed By: #### H STNT, 3051-0, 17029-7, 03893-1, 70271-7, 3024-7 ####[facility] LABCLIA [id number] [place] [id number] [place] Iron/TIBC [Molar ratio] >92.9 High 15.0-57.0 [facility] Comment on above: Order Comment: Speci men Type: BLOOD SPECIMENOrdering Facility: [facility] Address: [address] [place] [address] Performed By: #### H STNT, 3051-0, 97608-8, 18041-1, 50632-5, 3023-7 ####[facility] LABCLIA [id number] [address] [address] [place] Magnesium SerPl-mCncon 12-17 Magnesium [Mass/Vol] 2.3 mg/dL Normal 1.7-2.3 [facility] Comment on above: Order Comment: Speci men Type: BLOOD SPECIMENOrdering Facility: [facility] Address: [address] [place] [address] Performed By: #### H STNT, 3051-0, 02076-4, 83746-7, 36998-0, 3024-7 ####[facility] LABCLIA [id number] [address] [address] [place] PTT, ANTICOAGULANT THERAPYon 12-17-2024 aPTT Coag (PPP) [Time] 51.9 s High 23.0-32.4 Cl [facility] Comment on above: Order Comment: Speci men Type: BLOOD SPECIMENOrdering Facility: [facility] Address: [address] [place] [address] Performed By: #### P TTAC ####[facility] LABIA [id number] [place] [address] [place] STAPHYLOCOCCUS AUREUS AND MR SA SCREEN, PCR, NASALon 12-17-2024 S. aureus and MRSA panel CELIA+probe (Nose) Not detected Normal Not Detected [facility] Comment on above: Order Comment: Speci men Type: SWABOrdering Facility: [facility] Address: [address] [place] [address] Performed By: #### S APCR ####[facility] [id number] [place] [address] [place] T3Free SerPl-mCncon 12-18-19 25 Free T3 [Mass/Vol] 2.4 pg/mL Normal 2.3-4.1 [facility] Comment on above: Order Comment: Speci men Type: BLOOD SPECIMENOrdering Facility: [facility] Address: [address] [place] [address] Performed By: #### H STNT, 3051-0, 06025-6, 61578-7, 42685-3, 3024-7 ####[facility] [id number] [place] [address] [place] T4 Free SerPl-mCncon 025 Free T4 [Mass/Vol] 1.7 ng/dL Normal 0.9-1.7 [facility] Comment on above: Order Comment: Speci men Type: BLOOD SPECIMENOrdering Facility: [facility] Address: [address] [place] [address] Performed By: #### H STNT, 3051-0, 64517-7, 68719-9, 50932-3, 3024-7 ####[facility] LABIA [id number] [place] [id number] [place] CBC panel Auto (Bld)on 12-16 Erythrocyte distribution width (RBC) [Ratio] 12.9 % Normal 11.5-15.0 [facility] Comment on above: Order Comment: Speci men Type: BLOOD SPECIMENOrdering Facility: [facility] Address: [address] [place] [address] Performed By: #### 5 8410-2, 03781-0, 63804-7 ####[facility] LABIA [id number] [place] [address] [place] Hematocrit (Bld) [Volume fraction] 46.7 % High 36.0-46.0 [facility] Comment on above: Order Comment: Speci men Type: BLOOD SPECIMENOrdering Facility: [facility] Address: [address] [place] [address] Performed By: #### 5 8410-2, 84729-5, 31375-1 ####[facility]ENTER[facility] [id number] [place] [id number] [place] Hemoglobin (Bld) [Mass/Vol] 15.2 g/dL Normal 11.5-15.5 [facility] Comment on above: Order Comment: Speci men Type: BLOOD SPECIMENOrdering Facility: [facility] Address: [address] [place] [address] Performed By: #### 5 8410-2, 28072-0, 58344-0 ####[facility] LABIA [id number] [place] [id number] [place] MCH (RBC) [Entitic mass] 29.8 pg Normal 26.0-34.0 [facility] Comment on above: Order Comment: Speci men Type: BLOOD SPECIMENOrdering Facility: [facility] Address: [address] [place] [address] Performed By: #### 5 8410-2, 28391-8, 44511-3 ####[facility] LABIA [id number] [place] [id number] [place] MCHC (RBC) [Mass/Vol] 32.5 g/dL Normal 30.5-36.0 [facility] Comment on above: Order Comment: Speci men Type: BLOOD SPECIMENOrdering Facility: [facility] Address: [address] [place] [address] Performed By: #### 5 8410-2, 54125-1, 94241-6 ####[facility] LABIA [id number] [place] [id number] [place] MCV (RBC) [Entitic vol] 91.6 fL Normal 80.0-100.0 [facility] Comment on above: Order Comment: Speci men Type: BLOOD SPECIMENOrdering Facility: [facility] Address: [address] [place] [address] Performed By: #### 5 8410-2, 14551-7, 72975-5 ####[facility]ENTER[facility] [id number] [place] [id number] [place] Nucleated RBC (Bld) [#/Vol] 10*3/uL Normal <0.01 [facility] Comment on above: Order Comment: Speci men Type: BLOOD SPECIMENOrdering Facility: [facility] Address: [address] [place] [address] Performed By: #### 5 8410-2, 53394-8, 65953-0 ####[facility] [id number] [place] [id number] [place] Platelet mean volume (Bld) [Entitic vol] 11.1 fL Normal 9.0-12.7 [facility] Comment on above: Order Comment: Speci men Type: BLOOD SPECIMENOrdering Facility: [facility] Address: [address] [place] [address] Performed By: #### 5 8410-2, 59960-6, 50004-8 ####[facility] LABCLIA [id number] [place] [id number] [place] Platelets (Bld) [#/Vol] 466 10*3/uL High 150-400 [facility] Comment on above: Order Comment: Speci men Type: BLOOD SPECIMENOrdering Facility: [facility] Address: [address] [place] [address] Performed By: #### 5 8410-2, 67714-0, 58900-3 ####[facility] LABCLIA [id number] [place] [address] [place] RBC (Bld) [#/Vol] 5.10 10*6/uL Normal 3.90-5.20 [facility] Comment on above: Order Comment: Speci men Type: BLOOD SPECIMENOrdering Facility: [facility] Address: [address] [place] [address] Performed By: #### 5 8410-2, 22483-4, 27639-7 ####[facility] LABIA [id number] [place] [address] [place] WBC (Bld) [#/Vol] 9.00 10*3/uL Normal 3.70-11.00 [facility] Comment on above: Order Comment: Speci men Type: BLOOD SPECIMENOrdering Facility: [facility] Address: [address] [place] [address] Result Comment: No c lot detected.Results checked and verified. Performed By: #### 5 8410-2, 61056-9, 66322-6 ####[facility] LABCLIA [id number] [place] [id number] [place] Comprehensive metabolic 2000 panelon 12-16-2024 Albumin [Mass/Vol] 3.1 g/dL Low 3.9-4.9 [facility] Comment on above: Order Comment: Speci men Type: BLOOD SPECIMENOrdering Facility: [facility] Address: [address] [place] [address] Performed By: #### 2 4322-8, ####[facility] LABCLIA [id number] [address] [address] [place] ALP [Catalytic activity/Vol] 77 U/L Normal 34-123 [facility] Comment on above: Order Comment: Speci men Type: BLOOD SPECIMENOrdering Facility: [facility] Address: [address] [place], [place] [address] Performed By: #### 2 8, ####[facility] LABCLIA [id number] [place] [id number] [place] ALT [Catalytic activity/Vol] 29 U/L Normal 7-38 [facility] Comment on above: Order Comment: Speci men Type: BLOOD SPECIMENOrdering Facility: [facility] Address: [address] [place], [place] [address] Performed By: #### 2 8, ####[facility] LABCLIA [id number] [place] [id number] [place] Anion gap [Moles/Vol] 14 mmol/L Normal 8-15 [facility] Comment on above: Order Comment: Speci men Type: BLOOD SPECIMENOrdering Facility: [facility] Address: [address] [place], [place] [address] Performed By: #### 2 8, ####[facility] LABCLIA [id number] [address] [address] [place] AST [Catalytic activity/Vol] 33 U/L Normal 13-35 [facility] Comment on above: Order Comment: Speci men Type: BLOOD SPECIMENOrdering Facility: [facility] Address: [address] [place] [address] Performed By: #### 2 8, ####[facility] LABCLIA [id number] [address] [place] [address] [place] Bilirubin [Mass/Vol] mg/dL Low 0.2-1.3 [facility] Comment on above: Order Comment: Speci men Type: BLOOD SPECIMENOrdering Facility: [facility] Address: [address] [place], [place] [address] Performed By: #### 2 4323-8, ####[facility] LABCLIA [id number] [address] [address] [place] Calcium [Mass/Vol] 9.8 mg/dL Normal 8.5-10.2 [facility] Comment on above: Order Comment: Speci men Type: BLOOD SPECIMENOrdering Facility: [facility] Address: [address] [place], [place] [address] Performed By: #### 2 432-8, ####[facility] LABCLIA [id number] [place] [id number] [place] Chloride [Moles/Vol] 105 mmol/L Normal 98-107 [facility] Comment on above: Order Comment: Speci men Type: BLOOD SPECIMENOrdering Facility: [facility] Address: [address] [place], [place] [address] Performed By: #### 2 4323-8, ####[facility] LABCLIA [id number] [place] [id number] [place] CO2 [Moles/Vol] 18 mmol/L Low 22-30 [facility] Comment on above: Order Comment: Speci men Type: BLOOD SPECIMENOrdering Facility: [facility] Address: [address] [place], [place] [address] Performed By: #### 2 4323-8, ####[facility] LABCLIA [id number] [address] [address] [place] Creatinine [Mass/Vol] 1.19 mg/dL High 0.58-0.96 [facility] Comment on above: Order Comment: Marika hammonds Type: BLOOD SPECIMENOrdering Facility: [facility] Address: [address] [place] [address] Performed By: #### 2 4323-8, ####[facility] LABCLIA [id number] [place] [address] [place] Creatinine and Glomerular filtration rate.predicted panel (S/P/Bld) 50 mL/min/1.73m??? Low >=60 [facility] Comment on above: Order Comment: Marika hammonds Type: BLOOD SPECIMENOrdering Facility: [facility] Address: [address] [place] [address] Result Comment: Maru mated Glomerular Filtration Rate [...] actual GFR. Performed By: #### 2 4323-8, ####[facility] LABCLIA [id number] [place] [address] [place] Glucose [Mass/Vol] 105 mg/dL High 74-99 [facility] Comment on above: Order Comment: Marika hammonds Type: BLOOD SPECIMENOrdering Facility: [facility] Address: [address] [place] [address] Result Comment: The [place] [employer] (ADA) provides guidance for cutoff [...] Standards of Medical Care in Diabetes 2016, [place] [employer]. Diabetes Care. 2016.39(Suppl 1). Performed By: #### 2 4323-8, ####[facility] LABCLIA [id number] [address] [place] [address] [place] Potassium [Moles/Vol] 5.0 mmol/L Normal 3.7-5.1 [facility] Comment on above: Order Comment: Speci men Type: BLOOD SPECIMENOrdering Facility: [facility] Address: [address] [place] [id number] Performed By: #### 2 4322-8, ####[facility] LABCLIA [id number] [address] [address] [place] Protein [Mass/Vol] 6.9 g/dL Normal 6.3-8.0 [facility] Comment on above: Order Comment: Speci men Type: BLOOD SPECIMENOrdering Facility: [facility] Address: [address] [place] [phone] Performed By: #### 2 432-8, ####[facility] LABIA [id number] [address] [address] [place] Sodium [Moles/Vol] 137 mmol/L Normal 136-144 [facility] Comment on above: Order Comment: Speci men Type: BLOOD SPECIMENOrdering Facility: [facility] Address: [address] [place] [address] Performed By: #### 2 432-8, ####[facility] LABCLIA [id number] [address] [address] [place] Urea nitrogen [Mass/Vol] 29 mg/dL High 7-21 [facility] Comment on above: Order Comment: Speci men Type: BLOOD SPECIMENOrdering Facility: [facility] Address: [address] [place] [address] Performed By: #### 2 4323-8, 19692-8 ####[facility] LABIA [id number] [place] [address] [place] HCV Ab Ser Qlon 12-16-2024 HCV Ab Ql (S) Positive Abnormal Negative [facility] Comment on above: Order Comment: Speci men Type: BLOOD SPECIMENOrdering Facility: [facility] Address: [address] [place] [address] Performed By: #### 5 8410-2, 10957-1, 79186-0 ####[facility] LABIA [id number] [place] [address] [place] HCV RNA CELIA+probe Qnon 12-16 HCV RNA CELIA+probe Ql Not detected Normal Not detected [facility] Comment on above: Order Comment: Speci men Type: BLOOD SPECIMENOrdering Facility: [facility] Address: [address] [place] [address] Performed By: #### 5 8410-2, 77355-9, 48732-7 ####[facility] LABIA [id number] [place] [address] [place] Magnesium SerPl-mCncon 12-16 Magnesium [Mass/Vol] 2.4 mg/dL High 1.7-2.3 [facility] Comment on above: Order Comment: Speci men Type: BLOOD SPECIMENOrdering Facility: [facility] Address: [address] [place] [address] Performed By: #### 2 4323-8, 95298-4 ####[facility] LABIA [id number] [place] [address] [place] PTT, ANTICOAGULANT THERAPYon 12-16-2024 aPTT Coag (PPP) [Time] 55.1 s High 23.0-32.[address] [facility] Comment on above: Order Comment: Speci men Type: BLOOD SPECIMENOrdering Facility: [facility] Address: [address] [place] [address] Performed By: #### P TTAC ####[facility] LABCLIA [id number] [address] [place] aPTT Coag (PPP) [Time] 58.7 s High 23.0-32.[address] [facility] Comment on above: Order Comment: Speci men Type: BLOOD SPECIMENOrdering Facility: [facility] Address: [address] [place] [address] Performed By: #### P TTAC ####[facility] LABCLIA [id number] [place] [address] [place] aPTT Coag (PPP) [Time] 74.5 s High 23.0-32.[address] [facility] Comment on above: Order Comment: Speci men Type: BLOOD SPECIMENOrdering Facility: [facility] Address: [address] [place] [address] Performed By: #### P TTAC ####[facility] LABCLIA [id number] [place] [address] [place] aPTT Coag (PPP) [Time] 49.8 s High 23.0-32.[address] [facility] Comment on above: Order Comment: Speci men Type: BLOOD SPECIMENOrdering Facility: [facility] Address: [address] [place] [address] Performed By: #### P TTAC ####[facility] LABCLIA [id number] [place] [id number] [place] CBC panel Auto (Bld)on 12-15 Erythrocyte distribution width (RBC) [Ratio] 12.7 % Normal 11.5-15.0 [facility] Comment on above: Order Comment: Speci men Type: BLOOD SPECIMENOrdering Facility: [facility] Address: [address] [place] [address] Performed By: #### 5 8410-2 ####[facility] LABORATORYCLIA [id number] [address] [facility] Hematocrit (Bld) [Volume fraction] 44.0 % Normal 36.0-46.0 [facility] Comment on above: Order Comment: Speci men Type: BLOOD SPECIMENOrdering Facility: [facility] Address: [address] [place] [address] Performed By: #### 5 8410-2 ####[facility] LABORATORYCLIA [id number] [address] [place] Hemoglobin (Bld) [Mass/Vol] 14.4 g/dL Normal 11.5-15.5 [facility] Comment on above: Order Comment: Speci men Type: BLOOD SPECIMENOrdering Facility: [facility] Address: [address] [place] [address] Performed By: #### 5 8410-2 ####[facility] LABORATORYCLIA [id number] [address] [place] MCH (RBC) [Entitic mass] 31.0 pg Normal 26.0-34.0 [facility] Comment on above: Order Comment: Speci men Type: BLOOD SPECIMENOrdering Facility: [facility] Address: [address] [place] [address] Performed By: #### 5 8410-2 ####[facility] LABORATORYCLIA [id number] [address] [place] MCHC (RBC) [Mass/Vol] 32.7 g/dL Normal 30.5-36.0 [facility] Comment on above: Order Comment: Speci men Type: BLOOD SPECIMENOrdering Facility: [facility] Address: [address] [place] [address] Performed By: #### 5 8410-2 ####[facility] LABORATORYCLIA [id number] [address] [place] MCV (RBC) [Entitic vol] 94.6 fL Normal 80.0-100.0 [facility] Comment on above: Order Comment: Speci men Type: BLOOD SPECIMENOrdering Facility: [facility] Address: [address] [place] [address] Performed By: #### 5 8410-2 ####[facility] LABORATORYCLIA [id number] [address] [place] Nucleated RBC (Bld) [#/Vol] 10*3/uL Normal <0.01 [facility] Comment on above: Order Comment: Speci men Type: BLOOD SPECIMENOrdering Facility: [facility] Address: [address] [place] [address] Performed By: #### 5 8410-2 ####[facility] LABORATORYCLIA [id number] [address] [place] Platelet mean volume (Bld) [Entitic vol] 10.0 fL Normal 9.0-12.7 [facility] Comment on above: Order Comment: Speci men Type: BLOOD SPECIMENOrdering Facility: [facility] Address: [address] [place] [address] Performed By: #### 5 8410-2 ####[facility] LABORATORYCLIA [id number] [address] [place] Platelets (Bld) [#/Vol] 453 10*3/uL High 150-400 [facility] Comment on above: Order Comment: Speci men Type: BLOOD SPECIMENOrdering Facility: [facility] Address: [address] [place] [address] Performed By: #### 5 8410-2 ####[facility] LABORATORYCLIA [id number] [place] [address] [place] RBC (Bld) [#/Vol] 4.65 10*6/uL Normal 3.90-5.20 [facility] Comment on above: Order Comment: Speci men Type: BLOOD SPECIMENOrdering Facility: [facility] Address: [address] [place] [address] Performed By: #### 5 8410-2 ####[facility] LABORATORYCLIA [id number] [place] [address] [place] WBC (Bld) [#/Vol] 9.18 10*3/uL Normal 3.70-11.00 [facility] Comment on above: Order Comment: Marika hammonds Type: BLOOD SPECIMENOrdering Facility: [facility] Address: [address] [place] [id number] Performed By: #### 5 8410-2 ####[facility] LABORATORYCLIA [id number] [address] OF [facility] CNDSon 12-15-2024 CNDS HNO ID: [id number] Author: GRIFFIN VAUGHAN MD Service: Hospital Medicine [...] disorder who presented with c/o SOB to [place], treated for NSTEMI and AE HFrEF in setting of new, now severe MR, transferred to [facility] CV-ICU for CTS evaluation. She was diuresed and medically managed for NSTEMI in CV-ICU, weaned off BiPAP and deemed stable for RNF on 12/14. [place] [facility] [place] [facility] for high risk surgery vs MitraClip +/- [...] of accepting physician, receiving hospital, and unit: [facility] ALLERGIES No Known Allergies Discharge Medications: Medication [...] Observations (36 (more content not included)... Normal [facility] Comprehensive metabolic 2000 panelon 12-15-2024 Albumin [Mass/Vol] 3.0 g/dL Low 3.9-4.9 [facility] Comment on above: Order Comment: Marika hammonds Type: BLOOD SPECIMENOrdering Facility: [facility] Address: [address] [place] [address] Performed By: #### 2 276-4, 00560-0 ####[facility] LABORATORYCLIA [id number] [place] [address] [place] ALP [Catalytic activity/Vol] 77 U/L Normal 34-123 [facility] Comment on above: Order Comment: Marika hammonds Type: BLOOD SPECIMENOrdering Facility: [facility] Address: [address] [place] [address] Performed By: #### 2 276-4, 02502-8 ####[facility]ORATORYCLIA [id number] [place] [address] [place] ALT With P-5'-P [Catalytic activity/Vol] 22 U/L Normal 7-38 [facility] Comment on above: Order Comment: Speci men Type: BLOOD SPECIMENOrdering Facility: [facility] Address: [address] [place] [address] Performed By: #### 2 276-4, 17860-5 ####[facility]ORATORYCLIA [id number] [address] STATES OF [facility] Anion gap [Moles/Vol] 10 mmol/L Normal 8-15 [facility] Comment on above: Order Comment: Speci men Type: BLOOD SPECIMENOrdering Facility: [facility] Address: [address] [place] [address] Performed By: #### 2 276-4, 32555-3 ####[facility] LABORATORYCLIA [id number] [address] STATES OF [facility] AST With P-5'-P [Catalytic activity/Vol] 21 U/L Normal 13-35 [facility] Comment on above: Order Comment: Speci men Type: BLOOD SPECIMENOrdering Facility: [facility] Address: [address] [place] [address] Performed By: #### 2 276-4, 16339-6 ####[facility] LABORATORYCLIA [id number] [address] [place] Bilirubin [Mass/Vol] mg/dL Low 0.2-1.3 [facility] Comment on above: Order Comment: Speci men Type: BLOOD SPECIMENOrdering Facility: [facility] Address: [address] [place] [address] Performed By: #### 2 276-4, 45170-7 ####[facility] LABORATORYCLIA [id number] [address] [place] Calcium [Mass/Vol] 8.8 mg/dL Normal 8.5-10.2 [facility] Comment on above: Order Comment: Speci men Type: BLOOD SPECIMENOrdering Facility: [facility] Address: [address] [place] [address] Performed By: #### 2 276-4, 49552-4 ####[facility]ORATORYCLIA [id number] [place] [address] [place] Chloride [Moles/Vol] 107 mmol/L Normal 98-107 [facility] Comment on above: Order Comment: Speci men Type: BLOOD SPECIMENOrdering Facility: [facility] Address: [address] [place] [address] Performed By: #### 2 276-4, 98837-9 ####[facility] LABORATORYCLIA [id number] [address] [place] CO2 [Moles/Vol] 21 mmol/L Low 22-30 [facility] Comment on above: Order Comment: Speci men Type: BLOOD SPECIMENOrdering Facility: [facility] Address: [address] [place] [address] Performed By: #### 2 276-4, 26478-3 ####[facility]ORATORYCLIA [id number] [address] [place] Creatinine [Mass/Vol] 1.56 mg/dL High 0.58-0.96 [facility] Comment on above: Order Comment: Speci men Type: BLOOD SPECIMENOrdering Facility: [facility] Address: [address] [place] [address] Performed By: #### 2 276-4, 94683-6 ####[facility]ORATORYCLIA [id number] [address] Creatinine and Glomerular filtration rate.predicted panel (S/P/Bld) 36 mL/min/1.73m??? Low >=60 [facility] Comment on above: Order Comment: Speci men Type: BLOOD SPECIMENOrdering Facility: [facility] Address: [address] [place] [address] Result Comment: Maru mated Glomerular Filtration Rate [...] actual GFR. Performed By: #### 2 276-4, 95674-3 ####[facility]ATORYCLIA [id number] [place] [address] [place] Glucose [Mass/Vol] 116 mg/dL High 74-99 [facility] Comment on above: Order Comment: Marika hammonds Type: BLOOD SPECIMENOrdering Facility: [facility] Address: [address] [place] [address] Result Comment: The [place] Diabetes Association (ADA) provides guidance for cutoff [...] Standards of Medical Care in Diabetes 2016, [place] [employer]. Diabetes Care. 2016.39(Suppl 1). Performed By: #### 2 276-4, 76745-8 ####[facility]ATORYCLIA [id number] [place] [address] [place] Potassium [Moles/Vol] 4.4 mmol/L Normal 3.7-5.1 [facility] Comment on above: Order Comment: Marika hammonds Type: BLOOD SPECIMENOrdering Facility: [facility] Address: [address] [id number] Performed By: #### 2 276-4, 71811-9 ####[facility]ORYCLIA [id number] [place] [address] [place] Protein [Mass/Vol] 6.2 g/dL Low 6.3-8.0 [facility] Comment on above: Order Comment: Marika hammonds Type: BLOOD SPECIMENOrdering Facility: [facility] Address: [address] [place] [address] Performed By: #### 2 276-4, 51801-5 ####[facility]ORYCLIA [id number] [place] [address] [place] [facility] Sodium [Moles/Vol] 138 mmol/L Normal 136-144 [facility] Comment on above: Order Comment: Speci men Type: BLOOD SPECIMENOrdering Facility: [facility] Address: [address] [place] [address] Performed By: #### 2 276-4, 87157-0 ####[facility]ORYCLIA [id number] [place] [address] [place] Urea nitrogen [Mass/Vol] 27 mg/dL High 7-21 [facility] Comment on above: Order Comment: Speci men Type: BLOOD SPECIMENOrdering Facility: [facility] Address: [address] [place] [address] Performed By: #### 2 276-4, 91519-8 ####[facility]ORYCLIA [id number] [place] [address] [place] Ferritin SerPl-mCncon 2024 Ferritin [Mass/Vol] 342.0 ng/mL High 14.7-205.1 [facility] Comment on above: Order Comment: Speci men Type: BLOOD SPECIMENOrdering Facility: [facility] Address: [address] [place] [address] Performed By: #### 2 276-4, 82869-1 ####[facility]ORYCLIA [id number] [place] [address] [place] HIGH SENSITIVITY TROPONIN To n 12-15-2024 Troponin T.cardiac High sensitivity method [Mass/Vol] 624 ng/L High <12 [facility] Comment on above: Order Comment: Speci men Type: BLOOD SPECIMENOrdering Facility: [facility] Address: [address] [place] [address] Performed By: #### 1 0835-7, HSTNT ####[facility] LABCLIA [id number] [place] [id number] [place] HISTORY PHYSICALon HISTORY PHYSICAL [facility] SerPl-mCncon 12-15-2024 Lipoprotein a [Mass/Vol] 44 mg/dL High <30 [facility] Comment on above: Order Comment: Speci men Type: BLOOD SPECIMENOrdering Facility: [facility] Address: [address] [place] [address] Performed By: #### 1 0835-7, HSTNT ####[facility] LABCLIA [id number] [address] PT panel Coag (PPP)on 2024 INR Coag (PPP) [Relative time] 1.1 {INR} Normal 0.9-1.3 [facility] Comment on above: Order Comment: Speci men Type: BLOOD SPECIMENOrdering Facility: [facility] Address: [address] [place] [address] Result Comment: Tisha min K Antagonist (VKA) Therapeutic Range: INR 2 to 3 (Target INR of 2.5)Note: For patients treated with VKA drugs, such as warfarin, the [place] [employer] 2012 Guideline recommends [...] al. Chest 2012, 141:7S-47SNishtyra RA, et al. [facility] 2017, 70: 252-289 Performed By: #### 3 4528-0, 04214-9 ####[facility] LABCLIA [id number] [place] [id number] [place] PT Coag (PPP) [Time] 11.4 s Normal 9.7-13.0 [facility] Comment on above: Order Comment: Speci men Type: BLOOD SPECIMENOrdering Facility: [facility] Address: [address] [place] [address] Performed By: #### 3 4528-0, 63957-3 ####[facility] LABCLIA [id number] [place] [address] [place] XR CHEST 1V FRONTAL PORTon 0 12-15-2024 XR CHEST 1V FRONTAL PORT Normal [facility] aPTT PPPon 12-15-2024 aPTT Coag (PPP) [Time] 39.2 s High 23.0-32.[address] [facility] Comment on above: Order Comment: Speci men Type: BLOOD SPECIMENOrdering Facility: [facility] Address: [address] [place] [address] Performed By: #### 3 4528-0, 46305-6 ####[facility] LABCLIA [id number] [address] [place] aPTT Coag (PPP) [Time] 57.7 s High 23.0-32.4 [facility] Comment on above: Order Comment: Speci men Type: BLOOD SPECIMENOrdering Facility: [facility] Address: [address] [place] [address] Performed By: #### 1 4979-9 ####[facility]ORYCLIA [id number] [place] [address] [place] aPTT Coag (PPP) [Time] 55.4 s High 23.0-32.4 [facility] Comment on above: Order Comment: Speci men Type: BLOOD SPECIMENOrdering Facility: [facility] Address: [address] [place] [address] Performed By: #### 1 4979-9 ####[facility]ATORYCLIA [id number] [place] [address] [place] ALLIED HEALTHon 12-14-2024 ALLIED HEALTH HNO ID: [id number] Author: CLAUDETTE QUIROS RN Service: Cardiac Rehab [...] 14, 2024 TIME: 9:00 AM PAGER/CONTACT #: [phone] Normal [facility] Basic Metabolic Profile (BMP )on 12-14-2024 BUN Normal 4-19 [facility] Comment on above: Result Comment: Canc elled via OM: Order cancelled - Patient discharged Performed By: #### L 100.0100, L500.2500 #### [facility] [address] [facility] [address] BUN/CRE Normal 10-20 [facility] Comment on above: Result Comment: Canc elled via OM: Order cancelled - Patient discharged Performed By: #### L 100.0100, L500.2500 #### [facility] [address] [facility] [address] Calcium Normal 7.6-11.0 [facility] Comment on above: Result Comment: Canc elled via OM: Order cancelled - Patient discharged Performed By: #### L 100.0100, L500.2500 #### [facility] [address] [place], [address] CL Normal 98-108 [facility] Comment on above: Result Comment: Canc elled via OM: Order cancelled - Patient discharged Performed By: #### L 100.0100, L500.2500 #### [facility] [address] [place], [address] CO2 Normal 21.0-32.0 [facility] Comment on above: Result Comment: Canc elled via OM: Order cancelled - Patient discharged Performed By: #### L 100.0100, L500.2500 #### [facility] [address] [place], [address] CREAT,SERUM Normal 0.70-1.20 [facility] Comment on above: Result Comment: Canc elled via OM: Order cancelled - Patient discharged Performed By: #### L 100.0100, L500.2500 #### [facility] [address] [place], [address] eGFR Normal >60 [facility] Comment on above: Result Comment: Canc elled via OM: Order cancelled - Patient discharged Performed By: #### L 100.0100, L500.2500 #### [facility] [address] [place], [address] GAP Normal 5-15 [facility] Comment on above: Result Comment: Canc elled via OM: Order cancelled - Patient discharged Performed By: #### L 100.0100, L500.2500 #### [facility] [address] [place], [address] GLU Normal 70-99 [facility] Comment on above: Result Comment: Canc elled via OM: Order cancelled - Patient discharged Performed By: #### L 100.0100, L500.2500 #### [facility] [address] [place], [address] Potassium Normal 3.3-5.1 [facility] Comment on above: Result Comment: Canc elled via OM: Order cancelled - Patient discharged Performed By: #### L 100.0100, L500.2500 #### [facility] [address] [place], [address] Basic Metabolic Profile (BMP) Normal 133-145 [facility] Comment on above: Result Comment: Canc elled via OM: Order cancelled - Patient discharged Performed By: #### L 100.0100, L500.2500 #### [facility] [address] [place], [address] CBC W/Diff, Automatedon 06- Absolute Neut Normal 2.0-7.7 [facility] Comment on above: Result Comment: Canc elled via OM: Order cancelled - Patient discharged Performed By: #### L 100.0100, L500.2500 #### [facility] [address] [place], [address] HCT Normal 37-47 [facility] Comment on above: Result Comment: Canc elled via OM: Order cancelled - Patient discharged Performed By: #### L 100.0100, L500.2500 #### [facility] [address] [place], [address] HGB Normal 12.0-15.0 [facility] Comment on above: Result Comment: Canc elled via OM: Order cancelled - Patient discharged Performed By: #### L 100.0100, L500.2500 #### [facility] [address] [place], [address] MCH Normal 27.0-32.0 [facility] Comment on above: Result Comment: Canc elled via OM: Order cancelled - Patient discharged Performed By: #### L 100.0100, L500.2500 #### [facility] [address] [place], [address] MCHC Normal 32-36 [facility] Comment on above: Result Comment: Canc elled via OM: Order cancelled - Patient discharged Performed By: #### L 100.0100, L500.2500 #### [facility] [address] [place], [address] MCV Normal 81-99 [facility] Comment on above: Result Comment: Canc elled via OM: Order cancelled - Patient discharged Performed By: #### L 100.0100, L500.2500 #### [facility] [address] [place], [address] NEUT% Normal 47-70 [facility] Comment on above: Result Comment: Canc elled via OM: Order cancelled - Patient discharged Performed By: #### L 100.0100, L500.2500 #### [facility] [address] [place], [address] PLT Normal 150-450 [facility] Comment on above: Result Comment: Canc elled via OM: Order cancelled - Patient discharged Performed By: #### L 100.0100, L500.2500 #### [facility] [address] [place], [address] RBC Normal 4.2-5.4 [facility] Comment on above: Result Comment: Canc elled via OM: Order cancelled - Patient discharged Performed By: #### L 100.0100, L500.2500 #### [facility] [address] [place], [address] RDW CV Normal 11.6-14.6 [facility] Comment on above: Result Comment: Canc elled via OM: Order cancelled - Patient discharged Performed By: #### L 100.0100, L500.2500 #### [facility] [address] [place], [address] RDW SD Normal 35.1-43.9 [facility] Comment on above: Result Comment: Canc elled via OM: Order cancelled - Patient discharged Performed By: #### L 100.0100, L500.2500 #### [facility] [address] [place], [address] WBC Normal 4.4-11.0 [facility] Comment on above: Result Comment: Canc elled via OM: Order cancelled - Patient discharged Performed By: #### L 100.0100, L500.2500 #### [facility] [address] [place], [address] CBC panel Auto (Bld)on 12-14 Erythrocyte distribution width (RBC) [Ratio] 12.9 % Normal 11.5-15.0 [facility] Comment on above: Order Comment: Speci men Type: BLOOD SPECIMENOrdering Facility: [facility] Address: [address] [place] [address] Performed By: #### 5 8410-2 ####[facility]ORYCLIA [id number] [address] STATES OF [facility] Hematocrit (Bld) [Volume fraction] 43.1 % Normal 36.0-46.0 [facility] Comment on above: Order Comment: Speci men Type: BLOOD SPECIMENOrdering Facility: [facility] Address: [address] [place] [address] Performed By: #### 5 8410-2 ####[facility]ORYCLIA [id number] [address] [place] Hemoglobin (Bld) [Mass/Vol] 14.2 g/dL Normal 11.5-15.5 [facility] Comment on above: Order Comment: Speci men Type: BLOOD SPECIMENOrdering Facility: [facility] Address: [address] [place] [address] Performed By: #### 5 8410-2 ####[facility]ORYCLIA [id number] [address] [place] MCH (RBC) [Entitic mass] 30.7 pg Normal 26.0-34.0 [facility] Comment on above: Order Comment: Speci men Type: BLOOD SPECIMENOrdering Facility: [facility] Address: [address] [place] [address] Performed By: #### 5 8410-2 ####[facility]ATORYCLIA [id number] [place] [address] [place] MCHC (RBC) [Mass/Vol] 32.9 g/dL Normal 30.5-36.0 [facility] Comment on above: Order Comment: Speci men Type: BLOOD SPECIMENOrdering Facility: [facility] Address: [address] [place] [address] Performed By: #### 5 8410-2 ####[facility]ORYCLIA [id number] [address] [place] MCV (RBC) [Entitic vol] 93.3 fL Normal 80.0-100.0 [facility] Comment on above: Order Comment: Speci men Type: BLOOD SPECIMENOrdering Facility: [facility] Address: [address] [place] [address] Performed By: #### 5 8410-2 ####[facility]ORYCLIA [id number] [address] Nucleated RBC (Bld) [#/Vol] 10*3/uL Normal <0.01 [facility] Comment on above: Order Comment: Speci men Type: BLOOD SPECIMENOrdering Facility: [facility] Address: [address] [place] [address] Performed By: #### 5 8410-2 ####[facility]ORYCLIA [id number] [address] [place] Platelet mean volume (Bld) [Entitic vol] 9.9 fL Normal 9.0-12.7 [facility] Comment on above: Order Comment: Speci men Type: BLOOD SPECIMENOrdering Facility: [facility] Address: [address] [place] [address] Performed By: #### 5 8410-2 ####[facility]ORYCLIA [id number] [address] [place] Platelets (Bld) [#/Vol] 440 10*3/uL High 150-400 [facility] Comment on above: Order Comment: Speci men Type: BLOOD SPECIMENOrdering Facility: [facility] Address: [address] [place] [address] Performed By: #### 5 8410-2 ####[facility]ATORYCLIA [id number] [place] [address] [place] RBC (Bld) [#/Vol] 4.62 10*6/uL Normal 3.90-5.20 [facility] Comment on above: Order Comment: Speci men Type: BLOOD SPECIMENOrdering Facility: [facility] Address: [address] [place] [address] Performed By: #### 5 8410-2 ####[facility]ATORYCLIA [id number] [address] OF [facility] WBC (Bld) [#/Vol] 9.39 10*3/uL Normal 3.70-11.00 [facility] Comment on above: Order Comment: Speci men Type: BLOOD SPECIMENOrdering Facility: [facility] Address: [address] [place] [address] Performed By: #### 5 8410-2 ####[facility]ATORYCLIA [id number] [address] CONSULTon 12-14-2024 CONSULT HNO ID: [id number] Author: KARISSA DEL VALLE MD Service: Family [...] CAROTID ENDARTERECTOMY Left 2018 HIP SURGERY HX adners placed SHX VASCULAR SURGERY 2019 FAMILY HISTORY [...] NASAL BI (more content not included)... Normal [facility] Comprehensive metabolic 2000 panelon 12-14-2024 Albumin [Mass/Vol] 3.0 g/dL Low 3.9-4.9 [facility] Comment on above: Order Comment: Marika hammonds Type: BLOOD SPECIMENOrdering Facility: [facility] Address: [address] [place] [address] Performed By: #### 2 4323-8, [facility], 3024-7 ####[facility]ATORYCLIA [id number] [place] [address] [place] ALP [Catalytic activity/Vol] 74 U/L Normal 34-123 [facility] Comment on above: Order Comment: Marika hammonds Type: BLOOD SPECIMENOrdering Facility: [facility] Address: [address] [place] [address] Performed By: #### 2 4323-8, [facility], 3024-01 ####[facility]ATORYCLIA [id number] [place] [address] [place] ALT With P-5'-P [Catalytic activity/Vol] 27 U/L Normal 7-38 [facility] Comment on above: Order Comment: Speci men Type: BLOOD SPECIMENOrdering Facility: [facility] Address: [address] [place] [address] Performed By: #### 2 4323-8, TSH, 3024-01 ####[facility]ATORYCLIA [id number] [place] [address] [place] Anion gap [Moles/Vol] 9 mmol/L Normal 8-15 [facility] Comment on above: Order Comment: Speci men Type: BLOOD SPECIMENOrdering Facility: [facility] Address: [address] [place] [address] Performed By: #### 2 432-8, [facility], 3024-01 ####[facility]ATORYCLIA [id number] [place] [address] [place] [facility] AST With P-5'-P [Catalytic activity/Vol] 27 U/L Normal 13-35 [facility] Comment on above: Order Comment: Speci men Type: BLOOD SPECIMENOrdering Facility: [facility] Address: [address] [place] [address] Performed By: #### 2 4323-8, [facility], 3024-01 ####[facility]ATORYCLIA [id number] [address] [place] Bilirubin [Mass/Vol] mg/dL Low 0.2-1.3 [facility] Comment on above: Order Comment: Speci men Type: BLOOD SPECIMENOrdering Facility: [facility] Address: [address] [place] [address] Performed By: #### 2 4323-8, TSHRF, 3024-01 ####[facility]ATORYCLIA [id number] [address] [place] Calcium [Mass/Vol] 8.9 mg/dL Normal 8.5-10.2 [facility] Comment on above: Order Comment: Speci men Type: BLOOD SPECIMENOrdering Facility: [facility] Address: [address] [place] [address] Performed By: #### 2 4323-8, TSH, 3024-01 ####[facility]ATORYCLIA [id number] [place] [address] [place] Chloride [Moles/Vol] 105 mmol/L Normal 98-107 [facility] Comment on above: Order Comment: Speci men Type: BLOOD SPECIMENOrdering Facility: [facility] Address: [address] [place] [address] Performed By: #### 2 4323-8, [facility], 3024-01 ####[facility]ATORYCLIA [id number] [place] [address] [place] CO2 [Moles/Vol] 24 mmol/L Normal 22-30 [facility] Comment on above: Order Comment: Speci men Type: BLOOD SPECIMENOrdering Facility: [facility] Address: [address] [place] [address] Performed By: #### 2 4323-8, [facility], 3024-01 ####[facility]ORYCLIA [id number] [address] [place] Creatinine [Mass/Vol] 1.40 mg/dL High 0.58-0.96 [facility] Comment on above: Order Comment: Speci men Type: BLOOD SPECIMENOrdering Facility: [facility] Address: [address] [place] [address] Performed By: #### 2 4323-8, [facility], 7 ####[facility]ATORYCLIA [id number] [address] Creatinine and Glomerular filtration rate.predicted panel (S/P/Bld) 41 mL/min/1.73m??? Low >=60 [facility] Comment on above: Order Comment: Speci men Type: BLOOD SPECIMENOrdering Facility: [facility] Address: [address] [place] [address] Result Comment: Maru mated Glomerular Filtration Rate [...] actual GFR. Performed By: #### 2 4323-8, [facility], 3024-01 ####[facility]ATORYCLIA [id number] [place] [address] [place] Glucose [Mass/Vol] 120 mg/dL High 74-99 [facility] Comment on above: Order Comment: Marika hammonds Type: BLOOD SPECIMENOrdering Facility: [facility] Address: [address] [place] [address] Result Comment: The [place] [employer] (ADA) provides guidance for cutoff [...] Standards of Medical Care in Diabetes 2016, [place] [employer]. Diabetes Care. 2016.39(Suppl 1). Performed By: #### 2 4323-8, [facility], 3024-01 ####[facility]ATORYCLIA [id number] [place] [address] [place] Potassium [Moles/Vol] 4.3 mmol/L Normal 3.7-5.1 [facility] Comment on above: Order Comment: Marika hammonds Type: BLOOD SPECIMENOrdering Facility: [facility] Address: [address] [place] [address] Performed By: #### 2 4323-8, [facility], 3024-01 ####[facility]ATORYCLIA [id number] [place] [address] [place] Protein [Mass/Vol] 6.4 g/dL Normal 6.3-8.0 [facility] Comment on above: Order Comment: Speci men Type: BLOOD SPECIMENOrdering Facility: [facility] Address: [address] [place] [address] Performed By: #### 2 4323-8, TSH, 3024-7 ####[facility]ORATORYCLIA [id number] [place] [id number] [place] Sodium [Moles/Vol] 138 mmol/L Normal 136-144 [facility] Comment on above: Order Comment: Speci men Type: BLOOD SPECIMENOrdering Facility: [facility] Address: [address] [place] [address] Performed By: #### 2 4323-8, [facility], 3024-7 ####[facility]ORYCLIA [id number] [address] [place] Urea nitrogen [Mass/Vol] 18 mg/dL Normal 7-21 [facility] Comment on above: Order Comment: Speci men Type: BLOOD SPECIMENOrdering Facility: [facility] Address: [address] [place] [address] Performed By: #### 2 4323-8, [facility], 3024-7 ####[facility]ATORYCLIA [id number] [place] [address] [place] ECHOon 12-14-2024 Echocardiography Echocardiography Report: Transthoracic Echo [facility] Date of service: 12/14/2024 8:53:31 AM [facility] Ordering physician: VICTOR M BRAND Indication: Evaluation of ventricular function following ACS Technologist: Natalia Del Valle [facility] Interpreting physician: Darrell Weber MD PATIENT: Name: [...] on 12/14 (more content not included)... Normal [facility] HISTORY PHYSICALon HISTORY PHYSICAL HNO ID: [id number] Author: GRIFFIN VAUGHAN MD Service: Hospital Medicine Author Type: Resident Type: H&P Filed: 12/18/2024 07:17 Note Text: Attestation signed by Griffin Vaughan MD at 12/18/2024 7:17 AM [facility] HOSPITAL MEDICINE SERVICE ATTENDING ATTESTATION: I saw and evaluated the patient on rounds on 12/15/24. Discussed case with the medicine team and agree with resident's findings and plan as documented in the resident's note. Griffin Vaughan MD [facility] [place] [place] History AND Physical Patient Name: Maureen Barron Admitted for: NSTEMI (non-ST elevated myocardial infarction) ([facility]) [I21.4] LOS: 1 days Subjective HPI Maureen Barron is a 69 year old female with PMHx HTN, ICA occlusion (s/p endarterectomy), cerebral aneurysm (s/p repair 2019), PAD, HLD, polysubstance use disorder who presented to [facility] on 12/13/2024 with c/o SOB after being evaluated at [facility]. She was transferred to [facility] from [place], where she presented with shortness of breath and chest pain, initially on BiPAP. Patient was found to have NSTEMI (HS Trop >1900 per documents sent from [place]). She was started on a Hep gtt. [...] from ICU on 12/14/2024. [place] [facility] [place] [place] / management. ROS quite limited as pt perseverates on her neighbors cooking meth below her. She is intermittently redirectable. Patient moved in with her sister from [place] ~ 1 year ago. She states for [...] Last data (more content not included)... Normal [facility] NURSING PROGon 12-14-2024 NURSING PROG HNO ID: [id number] Author: KAUSHAL CRUM RN Service: ? Author Type: Registered Nurse Type: Nursing Progress Note Filed: 12/14/2024 22:17 Note Text: Transfer Note: PATIENT NAME: Maureen Barron Patient Location: [place] [address] [address] Room: [place] [address] Patient transferred into room [facility] in stable condition. Actions taken: Report given/called to nurse. Normal [facility] T4 Free SerPl-mCncon 025 Free T4 [Mass/Vol] 1.4 ng/dL Normal 0.9-1.7 [facility] Comment on above: Order Comment: Speci men Type: BLOOD SPECIMENOrdering Facility: [facility] Address: [address] [place] [address] Performed By: #### 2 4323-8, [facility], 3024-7 ####[facility] LABORATORYCLIA [id number] [place] [address] [place] TSH W/REFLEX FT4on 5 TSH Qn 0.056 m[IU]/L Low 0.270-4.200 [facility] Comment on above: Order Comment: Speci men Type: BLOOD SPECIMENOrdering Facility: [facility] Address: [address] [place] [address] Performed By: #### 2 4323-8, [facility], 3024-7 ####[facility] LABORATORYCLIA [id number] [place] [address] [place] US CAROTID BILon 12-14-2024 US CAROTID RAMAN * * *Final Report* * * DATE OF EXAM: Dec 14 2024 10:41AM A2U 1077 - CAROTID RAMAN / PROCEDURE REASON: pre-op * * * * Physician Interpretation * * * * Non-Invasive Vascular Laboratory [facility] Carotid Duplex Bilateral/Complete Date of service/time: 12/14/2024 9:50:44 AM [facility] Name: MAUREEN BARRON Date of : 1955 [...] * * Final * * * RP Laboratory Tester: WAQAS Transcribe Date/Time: Dec 14 2024 9:50A Dictated by : ROLLY JACKSON MD This examination was interpreted and the report reviewed and electronically signed by: ROLLY JACKSON MD on Dec 14 2024 1:33PM EST [id number] CN Normal [facility] US KIDNEY/BLADDERon 12-15-19 25 US KIDNEY/BLADDER * * *Final Report* * * DATE OF EXAM: Dec 14 2024 3:43PM [facility] 1055 US KIDNEY/BLADDER / PROCEDURE REASON: Kidney [...] parenchymal echogenicity, compatible with medical renal disease. Laboratory Tester: GARY Transcribe Date/Time: Dec 15 2024 9:45A Dictated by : JENNY EGAN MD This examination was interpreted and the report reviewed and electronically signed by: JENNY EGAN MD on Dec 15 2024 9:46AM EST [id number] CN Normal [facility] aPTT PPPon 12-14-2024 aPTT Coag (PPP) [Time] 45.1 s High 23.0-32.4 [facility] Comment on above: Order Comment: Speci men Type: BLOOD SPECIMENOrdering Facility: [facility] Address: [address] [place] [address] Performed By: #### 1 4979-9 ####[facility] LABORATORYCLIA [id number] [address] [facility] aPTT Coag (PPP) [Time] 50.1 s High 23.0-32.4 [facility] Comment on above: Order Comment: Speci men Type: BLOOD SPECIMENOrdering Facility: [facility] Address: [address] [place] [address] Performed By: #### 1 4979-9 ####[facility]ORATORYCLIA [id number] [address] [place] [facility] aPTT Coag (PPP) [Time] 44.4 s High 23.0-32.4 [facility] Comment on above: Order Comment: Speci men Type: BLOOD SPECIMENOrdering Facility: [facility] Address: [address] [place] [address] Performed By: #### 1 4979-9 ####[facility]ORATORYCLIA [id number] [place] [address] [place] aPTT Coag (PPP) [Time] 41.9 s High 23.0-32.4 [facility] Comment on above: Order Comment: Speci men Type: BLOOD SPECIMENOrdering Facility: [facility] Address: [address] [place] [id number] Performed By: #### 1 4979-9 ####[facility]ORATORYCLIA [id number] [place] [id number] [facility] Absolute lymphocyte countOrd ered By: Sukhi Forbes on 12-13-2024 Lymphocytes Auto (Unsp spec) [#/Vol] 1.39 10*3/uL 0.83-4.51 [facility] Absolute neutrophil countOrd ered By: Sukhi Forbes on 12-13-2024 Neutrophils (Bld) [#/Vol] 6.8 10*3/uL 2.0-7.7 [facility] Activated partial thrombopla stin time (aPTT) in platelet poor plasma by coagulation aOrdered By: Sukhi Forbes on 12-13-2024 aPTT Coag (PPP) [Time] 116.2 s High 24.1-36.2 [facility] Comment on above: [facility] SANTILLAN Kale DELGADILLO RN (ICU)12/13/24 0835 Romaine BeyRESULTS READ BACK BY SAME. Anion gap in Serum or Plasma Ordered By: Sukhi Forbes on 12-13-2024 Anion gap [Moles/Vol] 13 mmol/L 5-15 [facility] Automated lymphocyte count a s percentage of total leukocytesOrdered By: Sukhi Forbes on 12-13-2024 Lymphocytes/100 WBC Auto (Unsp spec) 15.0 % Low 19-41 [facility] BUN/creatinine ratioOrdered By: Sukhi Forbes on 12-13-2024 Urea nitrogen/Creatinine [Mass ratio] 14.0 mg/mg 10-20 [facility] Basic Metabolic Profile (BMP )on 12-13-2024 BUN/CRE 14.0 RATIO Normal - [facility] Comment on above: Performed By: #### L 100.0100, L500.2500 #### [facility] [address] [place], [address] Calcium [Mass/Vol] 8.0 mg/dL Normal 7.6-11.0 [facility] Comment on above: Performed By: #### L 100.0100, L500.2500 #### [facility] [address] [place], [address] Chloride [Moles/Vol] 100 mmol/L Normal 98-108 [facility] Comment on above: Performed By: #### L 100.0100, L500.2500 #### [facility] [address] [place], [address] CO2 [Moles/Vol] 21.8 mmol/L Normal 21.0-32.0 [facility] Comment on above: Performed By: #### L 100.0100, L500.2500 #### [facility] [address] [place], [address] Creatinine [Mass/Vol] 1.30 mg/dL High 0.70-1.20 [facility] Comment on above: Performed By: #### L 100.0100, L500.2500 #### [facility] [address] [place], [address] ECRCL 29.75 ml/min Low 50-250 [facility] Comment on above: Performed By: #### L 100.0100, L500.2500 #### [facility] [address] [place], [address] GAP 13 Normal 5-15 [facility] Comment on above: Performed By: #### L 100.0100, L500.2500 #### [facility] [address] [place], [address] GFR/1.73 sq M.predicted among non-blacks MDRD (S/P/Bld) [Vol rate/Area] 45 mL/min/{1.73_m2} Low >60 [facility] Comment on above: Result Comment: mL/m in/1.73m2 CKD-EPI Creatinine Equation (2020) Performed By: #### L 100.0100, L500.2500 #### [facility] [address] [place], [address] Glucose [Mass/Vol] 279 mg/dL High 70-99 [facility] Comment on above: Performed By: #### L 100.0100, L500.2500 #### [facility] [address] [place], [address] Potassium [Moles/Vol] 3.0 mmol/L Low 3.3-5.1 [facility] Comment on above: Result Comment: Hemo lysis present, Results??could be affected. ?? Performed By: #### L 100.0100, L500.2500 #### [facility] [address] [place], [address] Sodium [Moles/Vol] 135 mmol/L Normal 133-145 [facility] Comment on above: Performed By: #### L 100.0100, L500.2500 #### [facility] [address] [place], [address] Urea nitrogen [Mass/Vol] 18 mg/dL Normal 4-19 [facility] Comment on above: Performed By: #### L 100.0100, L500.2500 #### [facility] [address] [place], [address] Basic metabolic 2000 panelon 12-13-2024 Anion gap [Moles/Vol] 12 mmol/L Normal 8-15 [facility] Comment on above: Order Comment: Speci men Type: BLOOD SPECIMENOrdering Facility: [facility] Address: [address] [place] [address] Performed By: #### 2 4320-2, 75141-3 ####[facility]ORATORYCLIA [id number] [place] [address] [place] Calcium [Mass/Vol] 9.0 mg/dL Normal 8.5-10.2 [facility] Comment on above: Order Comment: Speci men Type: BLOOD SPECIMENOrdering Facility: [facility] Address: [address] [place] [address] Performed By: #### 2 2, 31685-3 ####[facility]ORATORYCLIA [id number] [place] [address] [place] Chloride [Moles/Vol] 101 mmol/L Normal 98-107 [facility] Comment on above: Order Comment: Speci men Type: BLOOD SPECIMENOrdering Facility: [facility] Address: [address] [place] [address] Performed By: #### 2 4320-08, 93280-2 ####[facility]ATORYCLIA [id number] [place] [address] [place] CO2 [Moles/Vol] 24 mmol/L Normal 22-30 [facility] Comment on above: Order Comment: Speci men Type: BLOOD SPECIMENOrdering Facility: [facility] Address: [address] [place] [address] Performed By: #### 2 4320-08, 65310-9 ####[facility] [facility]ORATORYCLIA [id number] [place] [address] [place] Creatinine [Mass/Vol] 1.48 mg/dL High 0.58-0.96 [facility] Comment on above: Order Comment: Speci men Type: BLOOD SPECIMENOrdering Facility: [facility] Address: [address] [place] [address] Performed By: #### 2 2, 04900-1 ####[facility] LABORATORYCLIA [id number] [place] [address] [place] Creatinine and Glomerular filtration rate.predicted panel (S/P/Bld) 38 mL/min/1.73m??? Low >=60 [facility] Comment on above: Order Comment: Marika hammonds Type: BLOOD SPECIMENOrdering Facility: [facility] Address: [address] [place] [address] Result Comment: Maru mated Glomerular Filtration Rate [...] actual GFR. Performed By: #### 2 4321-2, 77729-8 ####[facility]ORATORYCLIA [id number] [place] [address] [place] Glucose [Mass/Vol] 112 mg/dL High 74-99 [facility] Comment on above: Order Comment: Marika hammonds Type: BLOOD SPECIMENOrdering Facility: [facility] Address: [address] [place] [address] Result Comment: The [place] [employer] (ADA) provides guidance for cutoff [...] Standards of Medical Care in Diabetes 2016, [place] [employer]. Diabetes Care. 2016.39(Suppl 1). Performed By: #### 2 4321-2, 48298-6 ####[facility]ORATORYCLIA [id number] [place] [address] [place] Potassium [Moles/Vol] 4.1 mmol/L Normal 3.7-5.1 [facility] Comment on above: Order Comment: Speci men Type: BLOOD SPECIMENOrdering Facility: [facility] Address: [address] [place] [address] Performed By: #### 2 4321-2, 47198-4 ####[facility] LABORATORYCLIA [id number] [place] [address] [place] Sodium [Moles/Vol] 137 mmol/L Normal 136-144 [facility] Comment on above: Order Comment: Speci men Type: BLOOD SPECIMENOrdering Facility: [facility] Address: [address] [place] [address] Performed By: #### 2 4321-2, 41554-9 ####[facility] LABORATORYCLIA [id number] [place] [id number] [place] Urea nitrogen [Mass/Vol] 21 mg/dL Normal 7-21 [facility] Comment on above: Order Comment: Speci men Type: BLOOD SPECIMENOrdering Facility: [facility] Address: [address] [place] [address] Performed By: #### 2 4321-2, 74067-8 ####[facility] LABORATORYCLIA [id number] [address] [place] Basophil percentageOrdered B y: Sukhi Forbes on 12-13-2024 Basophils/100 WBC (Bld) 0.9 % 0-1 [facility] CBC W/Diff, Automatedon 12-02 Absolute Lymph 1.39 X10 3/uL Normal 0.83-4.51 [facility] Comment on above: Performed By: #### L 100.0100, L500.2500 #### [facility] [address] [place], [address] Absolute Neut 6.8 X10 3/uL Normal 2.0-7.7 [facility] Comment on above: Performed By: #### L 100.0100, L500.2500 #### [facility] [address] [place], [address] Basophils/100 WBC (Bld) 0.9 % Normal 0-1 [facility] Comment on above: Performed By: #### L 100.0100, L500.2500 #### [facility] [address] [place], [address] Eosinophils/100 WBC (Bld) 2.9 % Normal 0-5 [facility] Comment on above: Performed By: #### L 100.0100, L500.2500 #### [facility] [address] [place], [address] Erythrocyte distribution width (RBC) [Ratio] 12.6 % Normal 11.6-14.6 [facility] Comment on above: Performed By: #### L 100.0100, L500.2500 #### [facility] [address] [place], [address] Hematocrit (Bld) [Volume fraction] 39.6 % Normal 37-47 [facility] Comment on above: Performed By: #### L 100.0100, L500.2500 #### [facility] [address] [place], [address] Hemoglobin (Bld) [Mass/Vol] 13.1 g/dL Normal 12.0-15.0 [facility] Comment on above: Performed By: #### L 100.0100, L500.2500 #### [facility] [address] [place], [address] IG% 0.500 Normal 0.0-0.9 [facility] Comment on above: Result Comment: IG% - Immature Granulocytes (promyelocytes, myelocytes and metamyelocytes) > 1% indicates that a LEFT SHIFT is Present. Performed By: #### L 100.0100, L500.2500 #### [facility] [address] [place], [address] Lymphocytes/100 WBC (Bld) 15.0 % Low 19-41 [facility] Comment on above: Performed By: #### L 100.0100, L500.2500 #### [facility] [address] [place], [address] MCH (RBC) [Entitic mass] 30.3 pg Normal 27.0-32.0 [facility] Comment on above: Performed By: #### L 100.0100, L500.2500 #### [facility] [address] [place], [address] MCHC (RBC) [Mass/Vol] 33.1 g/dL Normal 32-36 [facility] Comment on above: Performed By: #### L 100.0100, L500.2500 #### [facility] [address] [place], [address] MCV (RBC) [Entitic vol] 91.7 fL Normal 81-99 [facility] Comment on above: Performed By: #### L 100.0100, L500.2500 #### [facility] [address] [place], [address] Monocytes/100 WBC (Bld) 7.6 % Normal 0-10 [facility] Comment on above: Performed By: #### L 100.0100, L500.2500 #### [facility] [address] [place], [address] Neutrophils/100 WBC (Bld) 73.1 % High 47-70 [facility] Comment on above: Performed By: #### L 100.0100, L500.2500 #### [facility] [address] [place], [address] Nucleated RBC (Bld) [#/Vol] 0 10*3/uL Normal 0-5 [facility] Comment on above: Performed By: #### L 100.0100, L500.2500 #### [facility] [address] [place], [address] Platelet mean volume (Bld) [Entitic vol] 9.8 fL Normal 6.2-12.0 [facility] Comment on above: Performed By: #### L 100.0100, L500.2500 #### [facility] [address] [place], [address] Platelets (Bld) [#/Vol] 393 10*3/uL Normal 150-450 [facility] Comment on above: Performed By: #### L 100.0100, L500.2500 #### [facility] [address] [place], [address] RBC (Bld) [#/Vol] 4.32 10*6/uL Normal 4.2-5.4 [facility] Comment on above: Performed By: #### L 100.0100, L500.2500 #### [facility] [address] [place], [address] RDW SD 42.6 fl Normal 35.1-43.9 [facility] Comment on above: Performed By: #### L 100.0100, L500.2500 #### [facility] [address] [place], [address] WBC (Bld) [#/Vol] 9.3 10*3/uL Normal 4.4-11.0 [facility] Comment on above: Performed By: #### L 100.0100, L500.2500 #### [facility] [address] [place], [address] CBC panel Auto (Bld)on 12-13 Erythrocyte distribution width (RBC) [Ratio] 12.7 % Normal 11.5-15.0 [facility] Comment on above: Order Comment: Speci men Type: BLOOD SPECIMENOrdering Facility: [facility] Address: [address] [place] [address] Performed By: #### 5 8410-2 ####[facility]ORATORYCLIA [id number] [place] [address] [place] Hematocrit (Bld) [Volume fraction] 41.8 % Normal 36.0-46.0 [facility] Comment on above: Order Comment: Speci men Type: BLOOD SPECIMENOrdering Facility: [facility] Address: [address] [place] [address] Performed By: #### 5 8410-2 ####[facility]ORATORYCLIA [id number] [address] STATES [facility] Hemoglobin (Bld) [Mass/Vol] 13.8 g/dL Normal 11.5-15.5 [facility] Comment on above: Order Comment: Speci men Type: BLOOD SPECIMENOrdering Facility: [facility] Address: [address] [place] [address] Performed By: #### 5 8410-2 ####[facility]ORATORYCLIA [id number] [address] [place] MCH (RBC) [Entitic mass] 30.5 pg Normal 26.0-34.0 [facility] Comment on above: Order Comment: Speci men Type: BLOOD SPECIMENOrdering Facility: [facility] Address: [address] [place] [address] Performed By: #### 5 8410-2 ####[facility]ORATORYCLIA [id number] [address] [place] MCHC (RBC) [Mass/Vol] 33.0 g/dL Normal 30.5-36.0 [facility] Comment on above: Order Comment: Speci men Type: BLOOD SPECIMENOrdering Facility: [facility] Address: [address] [place] [address] Performed By: #### 5 8410-2 ####[facility]ORATORYCLIA [id number] [address] [place] MCV (RBC) [Entitic vol] 92.5 fL Normal 80.0-100.0 [facility] Comment on above: Order Comment: Speci men Type: BLOOD SPECIMENOrdering Facility: [facility] Address: [address] [place] [address] Performed By: #### 5 8410-2 ####[facility]ORATORYCLIA [id number] [address] [place] Nucleated RBC (Bld) [#/Vol] 10*3/uL Normal <0.01 [facility] Comment on above: Order Comment: Speci men Type: BLOOD SPECIMENOrdering Facility: [facility] Address: [address] [place] [address] Performed By: #### 5 8410-2 ####[facility]ATORYCLIA [id number] [address] [place] Platelet mean volume (Bld) [Entitic vol] 9.8 fL Normal 9.0-12.7 [facility] Comment on above: Order Comment: Speci men Type: BLOOD SPECIMENOrdering Facility: [facility] Address: [address] [place] [address] Performed By: #### 5 8410-2 ####[facility]ATORYCLIA [id number] [address] [place] Platelets (Bld) [#/Vol] 435 10*3/uL High 150-400 [facility] Comment on above: Order Comment: Speci men Type: BLOOD SPECIMENOrdering Facility: [facility] Address: [address] [place] [address] Performed By: #### 5 8410-2 ####[facility]ORYCLIA [id number] [address] [place] RBC (Bld) [#/Vol] 4.52 10*6/uL Normal 3.90-5.20 [facility] Comment on above: Order Comment: Speci men Type: BLOOD SPECIMENOrdering Facility: [facility] Address: [address] [place] [address] Performed By: #### 5 8410-2 ####[facility]ATORYCLIA [id number] [address] [place] WBC (Bld) [#/Vol] 10.29 10*3/uL Normal 3.70-11.00 [facility] Comment on above: Order Comment: Speci men Type: BLOOD SPECIMENOrdering Facility: [facility] Address: [address] [place] [address] Performed By: #### 5 8410-2 ####[facility]ORATORYCLIA [id number] [address] STATES [facility] Erythrocyte distribution width (RBC) [Ratio] 12.6 % Normal 11.5-15.0 [facility] Comment on above: Order Comment: Speci men Type: BLOOD SPECIMENOrdering Facility: [facility] Address: [address] [place] [address] Performed By: #### 5 8410-2 ####[facility]ORATORYCLIA [id number] [address] Hematocrit (Bld) [Volume fraction] 44.8 % Normal 36.0-46.0 [facility] Comment on above: Order Comment: Speci men Type: BLOOD SPECIMENOrdering Facility: [facility] Address: [address] [place] [address] Performed By: #### 5 8410-2 ####[facility]ORATORYCLIA [id number] [address] Hemoglobin (Bld) [Mass/Vol] 14.6 g/dL Normal 11.5-15.5 [facility] Comment on above: Order Comment: Speci men Type: BLOOD SPECIMENOrdering Facility: [facility] Address: [address] [place] [address] Performed By: #### 5 8410-2 ####[facility]ATORYCLIA [id number] [address] [place] MCH (RBC) [Entitic mass] 30.3 pg Normal 26.0-34.0 [facility] Comment on above: Order Comment: Speci men Type: BLOOD SPECIMENOrdering Facility: [facility] Address: [address] [place] [address] Performed By: #### 5 8410-2 ####[facility]ORATORYCLIA [id number] [address] OF [facility] MCHC (RBC) [Mass/Vol] 32.6 g/dL Normal 30.5-36.0 [facility] Comment on above: Order Comment: Speci men Type: BLOOD SPECIMENOrdering Facility: [facility] Address: [address] [place] [address] Performed By: #### 5 8410-2 ####[facility]ORATORYCLIA [id number] [address] [place] MCV (RBC) [Entitic vol] 92.9 fL Normal 80.0-100.0 [facility] Comment on above: Order Comment: Speci men Type: BLOOD SPECIMENOrdering Facility: [facility] Address: [address] [place] [address] Performed By: #### 5 8410-2 ####[facility]ORATORYCLIA [id number] [address] OF [facility] Nucleated RBC (Bld) [#/Vol] 10*3/uL Normal <0.01 [facility] Comment on above: Order Comment: Speci men Type: BLOOD SPECIMENOrdering Facility: [facility] Address: [address] [place] [address] Performed By: #### 5 8410-2 ####[facility]IA LABORATORYCLIA [id number] [address] [place] Platelet mean volume (Bld) [Entitic vol] 10.3 fL Normal 9.0-12.7 [facility] Comment on above: Order Comment: Speci men Type: BLOOD SPECIMENOrdering Facility: [facility] Address: [address] [place] [address] Performed By: #### 5 8410-2 ####[facility] LABORATORYCLIA [id number] [address] [place] Platelets (Bld) [#/Vol] 442 10*3/uL High 150-400 [facility] Comment on above: Order Comment: Speci men Type: BLOOD SPECIMENOrdering Facility: [facility] Address: [address] [place] [address] Performed By: #### 5 8410-2 ####[facility] LABORATORYCLIA [id number] [address] OF [facility] RBC (Bld) [#/Vol] 4.82 10*6/uL Normal 3.90-5.20 [facility] Comment on above: Order Comment: Speci men Type: BLOOD SPECIMENOrdering Facility: [facility] Address: [address] [place] [address] Performed By: #### 5 8410-2 ####[facility] LABORATORYCLIA [id number] [address] OF [place] WBC (Bld) [#/Vol] 10.19 10*3/uL Normal 3.70-11.00 [facility] Comment on above: Order Comment: Speci men Type: BLOOD SPECIMENOrdering Facility: [facility] Address: [address] [place] [address] Performed By: #### 5 8410-2 ####[facility] LABORATORYCLIA [id number] [address] CONFIRM BLOOD TYPEon 025 ABO O Normal [facility] Comment on above: Order Comment: Speci men Type: BLOOD SPECIMENOrdering Facility: [facility] Address: [address] [place] [address] Performed By: #### C ONABO ####[facility] BLOOD BANKCLIA [id number] [address] Rh Nom (Bld) Positive Normal [facility] Comment on above: Order Comment: Speci men Type: BLOOD SPECIMENOrdering Facility: [facility] Address: [address] [place] [address] Performed By: #### C ONABO ####[facility] BLOOD BANKCLIA [id number] [address] CONSULTon 12-13-2024 CONSULT HNO ID: [id number] Author: BELINDA AVALOS PA-C Service: Cardiovascular Surgery Author Type: Physician Full Stack Python Developer Type: Consults Filed: 12/13/2024 17:39 Note Text: Attestation signed by Karen Bradshaw MD at 12/14/2024 4:40 PM [facility] STAFF PHYSICIAN NOTE OF PERSONAL INVOLVEMENT [...] 43.1%, WBC Count: 9.39 10?/?L, Platelet Count: 104281 cells/?L Substance Abuse: Current smoker, Illicit Drug Use Risk Factors / Comorbidities: Hypertension Pulmonary RF: Mild CLD Vascular RF: Cerebrovascular Disease: Other CVD, Peripheral Artery Disease, Prior Carotid Surgery, RT Carotid Sten. >= 80% Cardiac Status: Acute and chronic heart failure, Ejection Fraction = 45% Coronary Artery Disease: 2 vessels diseased, Non-ST Elevation CT, CT: 8 to 21 Days Valve Disease: Severe MR PLAN: Recommend transfer to [facility] for evaluation for high risk surgery vs MitraClip +/- PCI vs medical therapy in this medically complex patient. I have reviewed the documentation obtained and documented by the Physician Full Stack Python Developer and I have personally performed the substantive [...] HLD, and hypothyroidism. She was transferred to [facility] from [place], where she presented with shortness of breath. She notes this was accompanied by chest pain, which felt like an elephant sitting on [my] chest. Initially on BiPAP, which she has been weaned off of. She is now saturating well on 2L O2 via [place]. Patient was found to have NSTEMI (HS Trop >1900 per documents sent from [place]). She was started on a Hep gtt. [...] Patient moved in with her sister from [place] ~ 1 year ago. She states for [...] prior chest surgery/ radiation, no history of CT or PCI, denies known kidney or lung [...] Mother Hyperlipidemia (more content not included)... Normal [facility] Carbon dioxide, total [Moles /volume] in Central venous bloodOrdered By: Sukhi Forbes on 12-13-2024 CO2 [Moles/Vol] 21.8 mmol/L 21.0-32.0 [facility] Chloride assayOrdered By: Art Forbes on 12-13-2024 Chloride [Moles/Vol] 100 mmol/L 98-108 [facility] Comprehensive metabolic 2000 panelon 12-13-2024 Albumin [Mass/Vol] 3.1 g/dL Low 3.9-4.9 [facility] Comment on above: Order Comment: Marika hammonds Type: BLOOD SPECIMENOrdering Facility: [facility] Address: [address] [place] [address] Performed By: #### 3 3762-6, 91404-4, , ####[facility] LABORATORYCLIA [id number] [place] [address] [place] ALP [Catalytic activity/Vol] 81 U/L Normal 34-123 [facility] Comment on above: Order Comment: Marika hammonds Type: BLOOD SPECIMENOrdering Facility: [facility] Address: [address] [place] [address] Performed By: #### 3 3762-6, 77371-4, , ####[facility] LABORATORYCLIA [id number] [place] [address] [place] ALT With P-5'-P [Catalytic activity/Vol] 27 U/L Normal 7-38 [facility] Comment on above: Order Comment: Speci men Type: BLOOD SPECIMENOrdering Facility: [facility] Address: [address] [place] [address] Performed By: #### 3 3762-6, 49277-2, , 67748-4 ####[facility] LABORATORYCLIA [id number] [place] [address] [place] Anion gap [Moles/Vol] 8 mmol/L Normal 8-15 [facility] Comment on above: Order Comment: Speci men Type: BLOOD SPECIMENOrdering Facility: [facility] Address: [address] [place] [address] Performed By: #### 3 3762-6, 07127-2, , ####[facility] LABORATORYCLIA [id number] [place] [address] [place] AST With P-5'-P [Catalytic activity/Vol] 30 U/L Normal 13-35 [facility] Comment on above: Order Comment: Speci men Type: BLOOD SPECIMENOrdering Facility: [facility] Address: [address] [place] [address] Performed By: #### 3 3762-6, 57941-0, , ####[facility] LABORATORYCLIA [id number] [place] [id number] [place] Bilirubin [Mass/Vol] mg/dL Low 0.2-1.3 [facility] Comment on above: Order Comment: Speci men Type: BLOOD SPECIMENOrdering Facility: [facility] Address: [address] [place] [address] Performed By: #### 3 3762-6, 58683-6, , 07195-0 ####[facility] LABORATORYCLIA [id number] [place] [address] [place] Calcium [Mass/Vol] 9.0 mg/dL Normal 8.5-10.2 [facility] Comment on above: Order Comment: Speci men Type: BLOOD SPECIMENOrdering Facility: [facility] Address: [address] [place] [address] Performed By: #### 3 3762-6, 36499-4, 87189-6, 19777-6 ####[facility] LABORATORYCLIA [id number] [place] [address] [place] Chloride [Moles/Vol] 101 mmol/L Normal 98-107 [facility] Comment on above: Order Comment: Speci men Type: BLOOD SPECIMENOrdering Facility: [facility] Address: [address] [place] [address] Performed By: #### 3 3762-6, 18793-9, 77644-9, 94953-3 ####[facility] LABORATORYCLIA [id number] [place] [address] [place] [facility] CO2 [Moles/Vol] 24 mmol/L Normal 22-30 [facility] Comment on above: Order Comment: Speci men Type: BLOOD SPECIMENOrdering Facility: [facility] Address: [address] [place] [address] Performed By: #### 3 3762-6, 87073-0, 47379-8, 12327-6 ####[facility] LABORATORYCLIA [id number] [place] [address] [place] Creatinine [Mass/Vol] 1.48 mg/dL High 0.58-0.96 [facility] Comment on above: Order Comment: Speci men Type: BLOOD SPECIMENOrdering Facility: [facility] Address: [address] [place] [address] Performed By: #### 3 3762-6, 91801-2, 24705-1, 56456-8 ####[facility] LABORATORYCLIA [id number] [address] [place] Creatinine and Glomerular filtration rate.predicted panel (S/P/Bld) 38 mL/min/1.73m??? Low >=60 [facility] Comment on above: Order Comment: Marika hammonds Type: BLOOD SPECIMENOrdering Facility: [facility] Address: [address] [place] [address] Result Comment: Maru mated Glomerular Filtration Rate [...] actual GFR. Performed By: #### 3 3762-6, 66268-0, , 49766-5 ####[facility] [id number] [place] [address] [place] Glucose [Mass/Vol] 120 mg/dL High 74-99 [facility] Comment on above: Order Comment: Marika hmamonds Type: BLOOD SPECIMENOrdering Facility: [facility] Address: [address] [place] [address] Result Comment: The [place] Diabetes Association (ADA) provides guidance for cutoff [...] Standards of Medical Care in Diabetes 2016, [place] Diabetes Association. Diabetes Care. 2016.39(Suppl 1). Performed By: #### 3 3762-6, 65212-2, 23894-4, 20217-8 ####[facility] LABORATORYCLIA [id number] [place] [address] [place] Potassium [Moles/Vol] 4.1 mmol/L Normal 3.7-5.1 [facility] Comment on above: Order Comment: Speci men Type: BLOOD SPECIMENOrdering Facility: [facility] Address: [address] [place] [address] Performed By: #### 3 3762-6, 46853-3, , 85058-8 ####[facility] LABORATORYCLIA [id number] [place] [address] [place] Protein [Mass/Vol] 6.5 g/dL Normal 6.3-8.0 [facility] Comment on above: Order Comment: Speci men Type: BLOOD SPECIMENOrdering Facility: [facility] Address: [address] [place] [address] Performed By: #### 3 3762-6, 53155-8, , 10022-3 ####[facility] LABORATORYCLIA [id number] [place] [address] [place] Sodium [Moles/Vol] 133 mmol/L Low 136-144 [facility] Comment on above: Order Comment: Speci men Type: BLOOD SPECIMENOrdering Facility: [facility] Address: [address] [place] [address] Performed By: #### 3 3762-6, 05655-4, , ####[facility] LABORATORYCLIA [id number] [place] [address] [place] Urea nitrogen [Mass/Vol] 20 mg/dL Normal 7-21 [facility] Comment on above: Order Comment: Speci men Type: BLOOD SPECIMENOrdering Facility: [facility] Address: [address] [place] [address] Performed By: #### 3 3762-6, 26774-2, , 55658-8 ####[facility] LABORATORYCLIA [id number] [place] [address] [place] Creatinine Unsp time (U) [Ma ss/Vol]on 12-13-2024 Creatinine (U) [Mass/Vol] 99.1 mg/dL Normal 42.2-237.9 [facility] Comment on above: Order Comment: Speci men Type: URINE SPECIMENOrdering Facility: [facility] Address: [facility] [place] [address] Performed By: #### U TOX2, 25207-1, 38816-3, UUNR ####[facility] LABORATORYCLIA [id number] [place] [id number] [place] ECG COMPLETEon 12-13-2024 ECG COMPLETE Ventricular Rate : 72 BPM Atrial Rate : 72 BPM P-R Interval : 100 ms QRS Duration : 102 ms Q-T Interval : 452 ms QTC Calculation(Bazett) : 494 ms Calculated P [place] : 99 degrees Calculated R [place] : 16 degrees Calculated T [place] : 15 degrees SINUS RHYTHM WITH SHORT WY OTHERWISE NORMAL ECG WHEN COMPARED WITH ECG OF 08-Jul-2024 16:55, NON-SPECIFIC CHANGE IN ST SEGMENT IN INFERIOR LEADS NON-SPECIFIC CHANGE IN ST SEGMENT IN ANTERIOR LEADS Confirmed by MD ALVARADO YASSAR ([id number]) on 12/14/2024 10:24:09 AM NAME : MAUREEN BARRON PID : [id number] : 1955 Gender : Female Race : ORD : [id number] Procedure Date : Dec 13 2024 16:39:34 Edit Date : Dec 14 2024 10:24:10 Diagnosis: SINUS RHYTHM WITH SHORT WY OTHERWISE NORMAL ECG WHEN COMPARED WITH ECG OF 08-Jul-2024 16:55, NON-SPECIFIC CHANGE IN ST SEGMENT IN INFERIOR LEADS NON-SPECIFIC CHANGE IN ST SEGMENT IN ANTERIOR LEADS Confirmed by MD ALVARADO YASSAR ([id number]) on 12/14/2024 10:24:09 AM Test Reason : Chest Pain Location : 6 : CVICU 3229 Overread By : MD ALVARADO YASSAR Edited By : MD ALVARADO YASSAR Referred By : JEAN PAUL HOLT Acquired by : RONEL CHAMBERS [facility] Eosinophil percentageOrdered By: Sukhi Forbes on 12-13-2024 Eosinophils/100 WBC (Bld) 2.9 % 0-5 [facility] Erythrocyte distribution wid th ratioOrdered By: Sukhi Forbes on 12-13-2024 Erythrocyte distribution width (RBC) [Ratio] 12.6 % 11.6-14.6 [facility] Erythrocyte distribution wid th standard deviationOrdered By: Sukhi Forbes on 12-13-2024 Erythrocyte distribution width (RBC) [Ratio] 42.6 fl 35.1-43.9 [facility] Glomerular filtration rate ( GFR) estimation/1.73 sq m using serum, plasma, or whole bOrdered By: Sukhi Forbes on 12-13-2024 GFR/1.73 sq M.predicted among non-blacks MDRD (S/P/Bld) [Vol rate/Area] 45 mL/min/{1.73_m2} Low >60 [facility] Comment on above: mL/min/1.73m2 CKD-EP I Creatinine Equation (2020) HIGH SENSITIVITY TROPONIN To n 12-13-2024 Troponin T.cardiac High sensitivity method [Mass/Vol] 1424 ng/L High <12 [facility] Comment on above: Order Comment: Speci men Type: BLOOD SPECIMENOrdering Facility: [facility] Address: [address] [place] [address] Performed By: #### H STNT ####[facility] LABORATORYCLIA [id number] [place] [address] [place] HISTORY PHYSICALon HISTORY PHYSICAL HNO ID: [id number] Author: LOGAN ALVARADO MD Service: Cardiovascular Medicine [...] HLD Hypothyroidism Polysubstance abuse Who presented to [facility] ~ 12/11 for evaluation of dyspnea, relatively acute onset over the preceeding week. 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 TTE showed LVEF 45% and 4+ MR, significantly different from previous TTE (07/09/2024, LVEF 60% without WMA and mild MR (peak gradient 5 mmHg; mean 1 mmHg), 1+ TR). Patient then underwent LHC with findings of 99% RCA, 100% CFx disease, and EF 30-35%. Dr. Bradshaw ([facility], Cardiothoracic Surgery) was then contacted, who recommended admission to the [facility] CVICU with CVI as the primary service [...] exam expressing paranoid delusions, similar to her [place] admission. Patient reports that: She lives in [...] phone. Finally, patient mentioned that her in [place] kicked her out of the home and [...] Sig cilostazol (more content not included)... Normal [facility] HbA1c (Bld)on 12-13-2024 Average glucose Estimated from glycated hemoglobin (Bld) [Mass/Vol] 131 mg/dL Normal [facility] Comment on above: Order Comment: Speci men Type: BLOOD SPECIMENOrdering Facility: [facility] Address: [address] [place] [address] Result Comment: eAG: (Estimated average glucose) is a calculated value from HgbA1c and is sales representative adding machines of the average blood glucose level in the last 2-3 month period. Performed By: #### 5 5454-3 ####[facility] LABCLIA [id number] [place] [address] [place] HbA1c (Bld) [Mass fraction] 6.2 % High 4.3-5.6 [facility] Comment on above: Order Comment: Marika hammonds Type: BLOOD SPECIMENOrdering Facility: [facility] Address: [address] [place] [address] Result Comment: Amer ican Diabetes Association guidelines indicate that patients with HgbA1c in the range 5.7-6.4% are at increased risk for development of diabetes, and intervention by lifestyle modification may be beneficial. HgbA1c greater or equal to 6.5% is considered diagnostic of diabetes. Performed By: #### 5 5454-3 ####[facility] LABCLIA [id number] [place] [id number] [place] Hematocrit Auto (Bld) [Volum e fraction]Ordered By: Sukhi Forbes on 12-13-2024 Hematocrit (Bld) [Volume fraction] 39.6 % 37-47 [facility] Hemoglobin measurementOrdere d By: Sukhi Forbes on 12-13-2024 Hemoglobin (Bld) [Mass/Vol] 13.1 g/dL 12.0-15.0 [facility] Hepatic function 2000 panelo n 12-13-2024 Albumin [Mass/Vol] 3.1 g/dL Low 3.9-4.9 [facility] Comment on above: Order Comment: Marika hammonds Type: BLOOD SPECIMENOrdering Facility: [facility] Address: [address] [place] [address] Performed By: #### 2 4321-2, 66697-0 ####[facility] LABORATORYCLIA [id number] [address] STATES OF [facility] ALP [Catalytic activity/Vol] 80 U/L Normal 34-123 [facility] Comment on above: Order Comment: Marika hammonds Type: BLOOD SPECIMENOrdering Facility: [facility] Address: [address] [place] [address] Performed By: #### 2 4321-2, 55813-0 ####[facility] LABORATORYCLIA [id number] [place] [address] [place] ALT With P-5'-P [Catalytic activity/Vol] 28 U/L Normal 7-38 [facility] Comment on above: Order Comment: Speci men Type: BLOOD SPECIMENOrdering Facility: [facility] Address: [address] [place] [address] Performed By: #### 2 4320-2, 84921-2 ####[facility] LABORATORYCLIA [id number] [address] STATES OF [facility] AST With P-5'-P [Catalytic activity/Vol] 31 U/L Normal 13-35 [facility] Comment on above: Order Comment: Speci men Type: BLOOD SPECIMENOrdering Facility: [facility] Address: [address] [place] [address] Performed By: #### 2 4320-08, 42140-9 ####[facility] GENERAL LABORATORYCLIA [id number] [address] [place] Bilirubin [Mass/Vol] mg/dL Low 0.2-1.3 [facility] Comment on above: Order Comment: Speci men Type: BLOOD SPECIMENOrdering Facility: [facility] Address: [address] [place] [address] Performed By: #### 2 4320-08, 05256-0 ####[facility] LABORATORYCLIA [id number] [address] Bilirubin.conjugated [Mass/Vol] mg/dL Normal <0.3 [facility] Comment on above: Order Comment: Speci men Type: BLOOD SPECIMENOrdering Facility: [facility] Address: [address] [place] [address] Performed By: #### 2 4320-08, 33900-8 ####[facility] LABORATORYCLIA [id number] [address] [place] Protein [Mass/Vol] 6.4 g/dL Normal 6.3-8.0 [facility] Comment on above: Order Comment: Speci men Type: BLOOD SPECIMENOrdering Facility: [facility] Address: [address] [place] [address] Performed By: #### 2 4320-08, 90982-4 ####[facility] LABORATORYCLIA [id number] [place] [address] [place] Immature granulocytes/100 WB C Auto (Bld)Ordered By: Sukhi Forbes on 12-13-2024 Immature granulocytes/100 WBC (Bld) 0.500 % 0.0-0.9 [facility] Comment on above: IG% - Immature Granu locytes (promyelocytes, myelocytes and metamyelocytes) > 1% indicates that a LEFT SHIFT is Present. Lipid 1996 panelon Cholesterol [Mass/Vol] 176 mg/dL Normal <200 [facility] Comment on above: Order Comment: Spectu hammonds Type: BLOOD SPECIMENOrdering Facility: [facility] Address: [address] [place] [address] Result Comment: <200 mg/dL, Desirable 200-239 mg/dL, Borderline high >239 mg/dL, High Performed By: #### 3 3762-6, 04079-3, 64025-8, 12772-7 ####[facility] LABORATORYCLIA [id number] [address] [place] Cholesterol in HDL [Mass/Vol] 31 mg/dL Low >39 [facility] Comment on above: Order Comment: Marika hammonds Type: BLOOD SPECIMENOrdering Facility: [facility] Address: [address] [place] [address] Result Comment: 40-5 9 mg/dL, Acceptable >59 mg/dL, High: Negative risk factor for coronary heart disease <40 mg/dL, Low: Positive risk factor for coronary heart disease Performed By: #### 3 3762-6, 84840-4, , 65509-2 ####[facility] LABORATORYCLIA [id number] [address] [place] Cholesterol in LDL [Mass/Vol] 122 mg/dL High <100 [facility] Comment on above: Order Comment: Marika hammonds Type: BLOOD SPECIMENOrdering Facility: [facility] Address: [address] [place] [address] Result Comment: <100 mg/dL, Optimal 100-129 mg/dL, Near optimal/above optimal 130-159 mg/dL, Borderline high 160-189 mg/dL, High >189 mg/dL, Very high Secondary prevention optimal LDL Cholesterol levels are recommended to be <70 mg/dL LDL cholesterol is calculated using the Gill-NIH equation. Performed By: #### 3 3762-6, 19424-5, 80451-1, 77664-5 ####[facility] LABORATORYCLIA [id number] [place], [place] [id number] [place] [address] [place] Cholesterol in LDL/Cholesterol in HDL [Mass ratio] 3.94 {ratio} High <2.54 [facility] Comment on above: Order Comment: Speci men Type: BLOOD SPECIMENOrdering Facility: [facility] Address: [address] [place] [address] Result Comment: Refe rence: 1. National Cholesterol Education Program ATP III Guideline At-A-Glance Quick Desk Reference: National Heart, Lung, and Blood [place]. National Institutes of Health. 2001: NIH Publication No. 01-3305. 2. An International Atherosclerosis Society position paper: global recommendations for the management of dyslipidemia: executive summary, Atherosclerosis. 2014: 232(2):410-413. Performed By: #### 3 3762-6, 06415-1, , ####[facility] LABORATORYCLIA [id number] [address] STATES OF [facility] Cholesterol in VLDL [Mass/Vol] 22 mg/dL Normal <30 [facility] Comment on above: Order Comment: Speci men Type: BLOOD SPECIMENOrdering Facility: [facility] Address: [address] [place] [address] Performed By: #### 3 3762-6, 12237-2, 16539-0, ####[facility] LABORATORYCLIA [id number] [address] [place] Cholesterol non HDL [Mass/Vol] 145 mg/dL High <130 [facility] Comment on above: Order Comment: Speci men Type: BLOOD SPECIMENOrdering Facility: [facility] Address: [address] [place] [address] Result Comment: <130 mg/dL, Optimal 130-159 mg/dL, Near optimal/above optimal 160-189 mg/dL, Borderline high 190-219 mg/dL, High >219 mg/dL, Very high Secondary prevention optimal non HDL Cholesterol levels are recommended to be <100 mg/dL Performed By: #### 3 3762-6, 59883-1, , 85517-4 ####[facility] LABORATORYCLIA [id number] [address] Cholesterol.total/Choles terol in HDL [Mass ratio] 5.68 {ratio} High <5.10 [facility] Comment on above: Order Comment: Speci men Type: BLOOD SPECIMENOrdering Facility: [facility] Address: [address] [place] [address] Performed By: #### 3 3762-6, 49095-6, , ####[facility] LABORATORYCLIA [id number] [address] FASTING TIME 12 hrs Normal [facility] Comment on above: Order Comment: Speci men Type: BLOOD SPECIMENOrdering Facility: [facility] [facility] Address: [address] [place] [address] Performed By: #### 3 3762-6, 72026-3, , ####[facility] LABORATORYCLIA [id number] [address] Triglyceride [Mass/Vol] 129 mg/dL Normal <[address] [facility] Comment on above: Order Comment: Speci men Type: BLOOD SPECIMENOrdering Facility: [facility] Address: [address] [place] [address] Result Comment: <150 mg/dL, Normal 150-199 mg/dL, Borderline high 200-499 mg/dL, High >499 mg/dL, Very high Performed By: #### 3 3762-6, 26107-8, , ####[facility] LABORATORYCLIA [id number] [address] MCV (mean corpuscular volume ) determinationOrdered By: Sukhi Forbes on 12-13-2024 MCV (RBC) [Entitic vol] 91.7 fL 81-99 [facility] Magnesium SerPl-mCncon 12-13 Magnesium [Mass/Vol] 2.0 mg/dL Normal 1.7-2.3 [facility] Comment on above: Order Comment: Speci men Type: BLOOD SPECIMENOrdering Facility: [facility] Address: [address] [place] [address] Performed By: #### 3 3762-6, 48830-0, , 31174-7 ####[facility] LABORATORYCLIA [id number] [place] [address] [place] Mean corpuscular hemoglobin (MCH) determinationOrdered By: Sukhi Forbes on 12-13-2024 MCH (RBC) [Entitic mass] 30.3 pg 27.0-32.0 [facility] Mean corpuscular hemoglobin concentration (MCHC) determinationOrdered By: Sukhi Forbes on 12-13-2024 MCHC (RBC) [Mass/Vol] 33.1 g/dL 32-36 [facility] Mean platelet volume determi nationOrdered By: Sukhi Forbes on 12-13-2024 Platelet mean volume (Bld) [Entitic vol] 9.8 fL 6.2-12.0 [facility] Monocyte percentageOrdered B y: Sukhi Forbes on 12-13-2024 Monocytes/100 WBC (Bld) 7.6 % 0-10 [facility] NT-proBNP SerPl-ncon 12-13 Natriuretic peptide.B prohormone N-Terminal [Mass/Vol] 4018 pg/mL High <125 [facility] Comment on above: Order Comment: Speci men Type: BLOOD SPECIMENOrdering Facility: [facility] Address: [address] [place] [address] Performed By: #### 3 3762-6, 42815-6, , 71463-5 ####[facility] LABORATORYCLIA [id number] [address] [place] Neutrophil percentageOrdered By: Sukhi Forbes on 12-13-2024 Neutrophils/100 WBC (Bld) 73.1 % High 47-70 [facility] Nucleated red blood cell per centageOrdered By: Sukhi Forbes on 12-13-2024 Nucleated RBC/100 WBC (Bld) [Ratio] 0 % 0-5 [facility] PT panel Coag (PPP)on 2024 INR Coag (PPP) [Relative time] 1.0 {INR} Normal 0.9-1.3 [facility] Comment on above: Order Comment: Marika hammonds Type: BLOOD SPECIMENOrdering Facility: [facility] Address: [address] [place] [address] Result Comment: Tisha min K Antagonist (VKA) Therapeutic Range: INR 2 to 3 (Target INR of 2.5) Note: For patients treated with VKA drugs, such as warfarin, the [place] [employer] 2012 Guideline recommends [...] Chest 2012, 141:7S-47S Conrad RA, et al. [facility] 2017, 70: 252-289 Performed By: #### 3 4528-0, 75993-6 ####[facility] LABORATORYCLIA [id number] [address] [place] PT Coag (PPP) [Time] 11.1 s Normal 9.7-13.0 [facility] Comment on above: Order Comment: Marika hammonds Type: BLOOD SPECIMENOrdering Facility: [facility] Address: [address] [place] [address] Performed By: #### 3 4528-0, 23540-2 ####[facility] LABORATORYCLIA [id number] [place] [address] [place] INR Coag (PPP) [Relative time] 1.0 {INR} Normal 0.9-1.3 [facility] Comment on above: Order Comment: Marika hammonds Type: BLOOD SPECIMENOrdering Facility: [facility] Address: [address] [place] [address] Result Comment: Tisha min K Antagonist (VKA) Therapeutic Range: INR 2 to 3 (Target INR of 2.5) Note: For patients treated with VKA drugs, such as warfarin, the [place] [employer] 2012 Guideline recommends [...] Chest 2012, 141:7S-47S Conrad RA, et al. [facility] 2017, 70: 252-289 Performed By: #### 1 4979-9, 75022-0 ####[facility] LABORATORYCLIA [id number] [place] [address] [place] PT Coag (PPP) [Time] 11.0 s Normal 9.7-13.0 [facility] Comment on above: Order Comment: Marika hammonds Type: BLOOD SPECIMENOrdering Facility: [facility] Address: [address] [place] [address] Performed By: #### 1 4979-9, 30073-8 ####[facility] LABORATORYCLIA [id number] [place] [id number] [place] Partial Thromboplast Timeon 12-13-2024 aPTT Coag (Bld) [Time] 116.2 s Invalid Interpretation Code 24.1-36.2 [facility] Comment on above: Result Comment: CRIT ICAL VALUE CALLED TO LEONA PARKINSON (ICU) 12/13/24 0835 Romaine Isbell. RESULTS READ BACK BY SAME. Performed By: #### L 100.0100, L500.2500 #### [facility] [address] [place], [address] aPTT Coag (Bld) [Time] 49.0 s High 24.1-36.2 [facility] Comment on above: Performed By: #### L 300.4310 #### [facility] [address] [place], [address] Platelet countOrdered By: Art Forbes on 12-13-2024 Platelets (Bld) [#/Vol] 393 10*3/uL 150-450 [facility] Potassium measurement (mass/ volume)Ordered By: Sukhi Forbes on 12-13-2024 Potassium (Unsp spec) [Mass/Vol] 3.0 mmol/L Low 3.3-5.1 [facility] Comment on above: Hemolysis present, R esults could be affected. RBC Auto (Bld) [#/Vol]Ordere d By: Sukhi Forbes on 12-13-2024 RBC (Bld) [#/Vol] 4.32 10*6/uL 4.2-5.4 [facility] STAPHYLOCOCCUS AUREUS AND MR SA SCREEN, PCR, NASALon 12-13-2024 S. aureus and MRSA panel CELIA+probe (Nose) Not detected Normal Not Detected [facility] Comment on above: Order Comment: Speci men Type: SWAB [facility] Address: [address] [place] [address] Performed By: #### S APCR #### [facility] CLIA [id number] [address] [place] [address] [place] Serum creatinine measurement (mass/volume)Ordered By: Sukhi Forbes on 12-13-2024 Creatinine [Mass/Vol] 1.30 mg/dL High 0.70-1.20 [facility] Serum glucose measurement (m ass/volume)Ordered By: Sukhi Forbes on 12-13-2024 Glucose [Mass/Vol] 279 mg/dL High 70-99 [facility] Serum or plasma calcium katerin urement (mass/volume)Ordered By: Sukhi Forbes on 12-13-2024 Calcium [Mass/Vol] 8.0 mg/dL 7.6-11.0 [facility] Serum or plasma urea nitroge n measurement (mass/volume)Ordered By: Sukhi Forbes on 12-13-2024 Urea nitrogen [Mass/Vol] 18 mg/dL 4-19 [facility] Sodium ?Tm Ur-sCncon 025 Sodium Unsp time (U) [Moles/Vol] 38 mmol/L Normal 14-216 [facility] Comment on above: Order Comment: Speci men Type: URINE SPECIMENOrdering Facility: [facility] Address: [address] [place] [address] Performed By: #### U TOX2, 56483-1, 21660-5, UUNR ####[facility] LABORATORYCLIA [id number] [place] [address] [place] Sodium levelOrdered By: Sukhi Forbes on 12-13-2024 Sodium [Moles/Vol] 135 mmol/L 133-145 [facility] TOXICOLOGY SCREEN, ROUTINE U RINEon 12-13-2024 Amphetamines Confirm (U) [Mass/Vol] Negative Normal Negative [facility] Comment on above: Order Comment: Speci men Type: URINE SPECIMENOrdering Facility: [facility] Address: [address] [place] [address] Result Comment: Cuto ff threshold at 1000 ng/mL. Performed By: #### U TOX2, 40645-7, 54152-2, UUNR ####[facility] LABORATORYCLIA [id number] [place] [address] [place] BARBITURATES, URINE Negative Normal Negative [facility] Comment on above: Order Comment: Speci men Type: URINE SPECIMENOrdering Facility: [facility] Address: [address] [place] [address] Result Comment: Cuto ff threshold at 200 ng/mL. Performed By: #### U TOX2, 64942-1, 84564-1, UUNR ####[facility] LABORATORYCLIA [id number] [place] [id number] [place] BENZODIAZEPINES, UR Positive Abnormal Negative [facility] Comment on above: Order Comment: Speci men Type: URINE SPECIMENOrdering Facility: [facility] Address: [address] [place] [address] Result Comment: Cuto ff threshold at 200 ng/mL. Performed By: #### U TOX2, 80822-9, 39995-2, UUNR ####[facility]ORATORYCLIA [id number] [place] [address] [place] Cannabinoids Screen Ql (U) Positive Abnormal Negative [facility] Comment on above: Order Comment: Speci men Type: URINE SPECIMENOrdering Facility: [facility] Address: [address] [place] [address] Result Comment: Cuto ff threshold at 50 ng/mL. Performed By: #### U TOX2, 44740-7, 14713-7, UUNR ####[facility]ORATORYCLIA [id number] [place] [address] [place] Cocaine Ql (U) Negative Normal Negative [facility] Comment on above: Order Comment: Speci men Type: URINE SPECIMENOrdering Facility: [facility] Address: [address] [place] [address] Result Comment: Cuto ff threshold at 300 ng/mL. Performed By: #### U TOX2, 22735-4, 63286-9, UUNR ####[facility]ORATORYCLIA [id number] [place] [id number] [place] Ethanol (U) [Mass/Vol] <11 Normal <11 [facility] Comment on above: Order Comment: Speci men Type: URINE SPECIMENOrdering Facility: [facility] Address: [address] [place] [address] Performed By: #### U TOX2, 68031-3, 32672-5, UUNR ####[facility]ORATORYCLIA [id number] [address] Opiates Screen Ql (U) Negative Normal Negative [facility] Comment on above: Order Comment: Speci men Type: URINE SPECIMENOrdering Facility: [facility] Address: [address] [place] [address] Result Comment: Cuto ff threshold at 300 ng/mL. Performed By: #### U TOX2, 13167-4, 38801-5, UUNR ####[facility]ORATORYCLIA [id number] [address] oxyCODONE cutoff Screen (U) [Mass/Vol] Negative Normal Negative [facility] Comment on above: Order Comment: Speci men Type: URINE SPECIMENOrdering Facility: [facility] Address: [address] [place] [address] Result Comment: Cuto ff threshold at 100 ng/mL. Performed By: #### U TOX2, 12222-6, 11734-2, UUNR ####[facility]ORATORYCLIA [id number] [address] Phencyclidine Ql (U) Negative Normal Negative [facility] Comment on above: Order Comment: Speci men Type: URINE SPECIMENOrdering Facility: [facility] Address: [address] [place] [address] Result Comment: Cuto ff threshold at 25 ng/mL. Performed By: #### U TOX2, 15644-4, 27789-7, UUNR ####[facility]ORATORYCLIA [id number] [address] [place] TYPE + SCREENon 12-13-2024 ABO O Normal [facility] Comment on above: Order Comment: Speci men Type: BLOOD SPECIMENOrdering Facility: [facility] Address: [address] [place] [address] Performed By: #### T SCR ####[facility] BLOOD BANKCLIA [id number] [address] [place] Rh Nom (Bld) Positive Normal [facility] Comment on above: Order Comment: Speci men Type: BLOOD SPECIMENOrdering Facility: [facility] Address: [address] [place] [address] Performed By: #### T SCR ####[facility] BLO[facility] BANKCLIA [id number] [place] [id number] [facility] TYPE AND SCREEN EXPIRATION 12/16/2024 23:59 Normal [facility] Comment on above: Order Comment: Speci men Type: BLOOD SPECIMENOrdering Facility: [facility] Address: [address] [place] [address] Performed By: #### T SCR ####[facility] BLOOD BANKCLIA [id number] [address] UREA NITROGEN, RANDOM URINEo n 12-13-2024 UREA NITROGEN,UR,RAN 510 mg/dL Normal 140-1500 [facility] Comment on above: Order Comment: Speci men Type: URINE SPECIMENOrdering Facility: [facility] Address: [address] [place] [address] Performed By: #### U TOX2, 67066-7, 42570-0, UUNR ####[facility] LABORATORYCLIA [id number] [address] Urinalysis complete panel (U )on 12-13-2024 Bilirubin Ql (U) Negative Normal Negative [facility] Comment on above: Order Comment: Speci men Type: URINE SPECIMENOrdering Facility: [facility] Address: [address] [place] [address] Performed By: #### 2 4356-8 ####[facility]ORATORYCLIA [id number] [address] Clarity (Unsp spec) Clear Normal Clear [facility] Comment on above: Order Comment: Speci men Type: URINE SPECIMENOrdering Facility: [facility] Address: [address] [place] [address] Performed By: #### 2 4356-8 ####[facility] LABORATORYCLIA [id number] [address] Color (U) Light Yellow Normal yellow [facility] Comment on above: Order Comment: Speci men Type: URINE SPECIMENOrdering Facility: [facility] Address: [address] [place] [address] Performed By: #### 2 4356-8 ####[facility] LABORATORYCLIA [id number] [address] [place] Glucose Test strip (U) [Mass/Vol] 4+ Abnormal Trace, Negative [facility] Comment on above: Order Comment: Speci men Type: URINE SPECIMENOrdering Facility: [facility] Address: [address] [place] [address] Performed By: #### 2 4356-8 ####[facility] LABORATORYCLIA [id number] [address] Hemoglobin Ql (U) Negative Normal Negative, Trace [facility] Comment on above: Order Comment: Speci men Type: URINE SPECIMENOrdering Facility: [facility] Address: [address] [place] [address] Performed By: #### 2 4356-8 ####[facility] LABORATORYCLIA [id number] [address] STATES [facility] Ketones Ql (U) Negative Normal Negative, Trace [facility] Comment on above: Order Comment: Speci men Type: URINE SPECIMENOrdering Facility: [facility] Address: [address] [place] [address] Performed By: #### 2 4356-8 ####[facility] LABORATORYCLIA [id number] [address] [place] Leukocyte esterase Test strip Ql (U) Negative Normal Negative, 25 Farrah/uL [facility] Comment on above: Order Comment: Speci men Type: URINE SPECIMENOrdering Facility: [facility] Address: [address] [place] [address] Performed By: #### 2 4356-8 ####[facility] LABORATORYCLIA [id number] [place] [address] [place] Nitrite Ql (U) Negative Normal Negative [facility] Comment on above: Order Comment: Speci men Type: URINE SPECIMENOrdering Facility: [facility] Address: [address] [place] [address] Performed By: #### 2 4356-8 ####[facility] LABORATORYCLIA [id number] [address] [place] pH (U) 7.0 [pH] Normal 5.0-8.0 [facility] Comment on above: Order Comment: Speci men Type: URINE SPECIMENOrdering Facility: [facility] Address: [address] [place] [address] Performed By: #### 2 4356-8 ####[facility] LABORATORYCLIA [id number] [place] [address] [place] Protein (U) [Mass/Vol] Negative Normal Trace , Negative [facility] Comment on above: Order Comment: Speci men Type: URINE SPECIMENOrdering Facility: [facility] Address: [address] [place] [address] Performed By: #### 2 4356-8 ####[facility]ORATORYCLIA [id number] [place] [address] [place] [facility] RBC LM.HPF (Urine sed) [#/Area] 0-3 /HPF Normal 0-3 /HPF [facility] Comment on above: Order Comment: Speci men Type: URINE SPECIMENOrdering Facility: [facility] Address: [address] [place] [address] Performed By: #### 2 4356-8 ####[facility] LABORATORYCLIA [id number] [address] [place] Specific gravity (U) [Rel density] 1.021 Normal 1.005-1.030 [facility] Comment on above: Order Comment: Speci men Type: URINE SPECIMENOrdering Facility: [facility] Address: [address] [place] [address] Performed By: #### 2 4356-8 ####[facility] LABORATORYCLIA [id number] [address] [place] Urobilinogen Ql (U) Normal Normal Normal [facility] Comment on above: Order Comment: Speci men Type: URINE SPECIMENOrdering Facility: [facility] Address: [address] [place] [address] Performed By: #### 2 4356-8 ####[facility] LABORATORYCLIA [id number] [place] [address] [place] WBC LM.HPF (Urine sed) [#/Area] 0-5 /HPF Normal 0-5 /HPF [facility] Comment on above: Order Comment: Speci men Type: URINE SPECIMENOrdering Facility: [facility] Address: [address] [place] [address] Performed By: #### 2 4356-8 ####[facility] LABORATORYCLIA [id number] [address] STATES [facility] White blood cell (WBC) count Ordered By: Sukhi Forbes on 12-13-2024 WBC (Bld) [#/Vol] 9.3 10*3/uL 4.4-11.0 [facility] aPTT PPPon 12-13-2024 aPTT Coag (PPP) [Time] 29.3 s Normal 23.0-32.4 [facility] Comment on above: Order Comment: Speci men Type: BLOOD SPECIMENOrdering Facility: [facility] Address: [address] [place] [address] Performed By: #### 3 4528-0, 72888-8 ####[facility] LABORATORYCLIA [id number] [place] [address] [place] aPTT Coag (PPP) [Time] 28.8 s Normal 23.0-32.4 [facility] Comment on above: Order Comment: Speci men Type: BLOOD SPECIMENOrdering Facility: [facility] Address: [address] [place] [address] Performed By: #### 1 4979-9, 87735-4 ####[facility] LABORATORYCLIA [id number] [address] [place] Basic Metabolic Profile (BMP )on 12-12-2024 BUN/CRE 15.9 RATIO Normal 10-20 [facility] Comment on above: Performed By: #### L 100.0100, L500.2500 #### [facility] [address] [place], [address] Calcium [Mass/Vol] 8.9 mg/dL Normal 7.6-11.0 [facility] Comment on above: Performed By: #### L 100.0100, L500.2500 #### [facility] [address] [place], [address] Chloride [Moles/Vol] 102 mmol/L Normal 98-108 [facility] Comment on above: Performed By: #### L 100.0100, L500.2500 #### [facility] [address] [place], [address] CO2 [Moles/Vol] 22.6 mmol/L Normal 21.0-32.0 [facility] Comment on above: Performed By: #### L 100.0100, L500.2500 #### [facility] [address] [place], [address] Creatinine [Mass/Vol] 1.33 mg/dL High 0.70-1.20 [facility] Comment on above: Performed By: #### L 100.0100, L500.2500 #### [facility] [address] [place], [address] ECRCL 29.08 ml/min Low 50-250 [facility] Comment on above: Performed By: #### L 100.0100, L500.2500 #### [facility] [address] [place], [address] GAP 13 Normal 5-15 [facility] Comment on above: Performed By: #### L 100.0100, L500.2500 #### [facility] [address] [place], [address] GFR/1.73 sq M.predicted among non-blacks MDRD (S/P/Bld) [Vol rate/Area] 44 mL/min/{1.73_m2} Low >60 [facility] Comment on above: Result Comment: mL/m in/1.73m2 CKD-EPI Creatinine Equation (2020) Performed By: #### L 100.0100, L500.2500 #### [facility] [address] [place], [address] Glucose [Mass/Vol] 130 mg/dL High 70-99 [facility] Comment on above: Performed By: #### L 100.0100, L500.2500 #### [facility] [address] [place], [address] Potassium [Moles/Vol] 4.0 mmol/L Normal 3.3-5.1 [facility] Comment on above: Result Comment: Hemo lysis present, Results??could be affected. ?? Performed By: #### L 100.0100, L500.2500 #### [facility] [address] [place], [address] Sodium [Moles/Vol] 138 mmol/L Normal 133-145 [facility] Comment on above: Performed By: #### L 100.0100, L500.2500 #### [facility] [address] [place], [address] Urea nitrogen [Mass/Vol] 21 mg/dL High 4-19 [facility] Comment on above: Performed By: #### L 100.0100, L500.2500 #### [facility] [address] [place], [address] Electrocardiogram reportOrde red By: Jean Paul Holt on 12-12-2024 EKG study [facility] [address] [place] [address] 12 Lead EKG 12/11/24 1614 MR#: [id number] Acct: [id number] Name: MAUREEN ANSARI Rep #:[id number] : 1955 69 From: Jean Paul gee [...] Abnormal ECG Confirmed by Jean Paul Holt ([id number]), editor continuity and script PARISA ENAMORADO ([id number]) on 12/12/2024 10:42:14 AM Referred By: Confirmed By: Jean Paul Holt 12/12/24 1042 Date _ Jean Paul Holt MD CC: Dr. Sukhi Forbes DO; Dr. Marianela Edwards DO; Dr. Jean Paul Holt MD ~ Signed [facility] Work Phone: International normalized rat io (INR) calculationOrdered By: Virginie Galarza on 12-12-2024 INR Coag (Bld) [Relative time] 1.1 {INR} [facility] Partial Thromboplast Timeon 12-12-2024 aPTT Coag (Bld) [Time] 28.6 s Normal 24.1-36.2 [facility] Comment on above: Performed By: #### L 100.0100, L500.2500 #### [facility] [address] [place], [place], [address] Prothrombin Time w/INRon INR Coag (PPP) [Relative time] 1.1 {INR} Normal [facility] Comment on above: Performed By: #### L 100.0100, L500.2500 #### [facility] [address] [place], [address] PT Coag (PPP) [Time] 14.1 s Normal 11.7-14.9 [facility] Comment on above: Performed By: #### L 100.0100, L500.2500 #### [facility] [address] [place], [id number] Prothrombin timeOrdered By: Virginie Galarza on 12-12-2024 PT Coag (PPP) [Time] 14.1 s 11.7-14.9 [facility] 12 Lead EKGon 12-11-2024 12 Lead EKG [facility] [address] [place] [address] 12 Lead EKG 12/11/24 1614 MR#: [id number] Acct: [id number] Name: MAUREEN ANSARI Rep #: [id number] : 1955 69 From: Jean Paul Holt [...] Abnormal ECG Confirmed by Jean Paul Holt ([id number]), editor continuity and script PARISA ENAMORADO ([id number]) on 12/12/2024 10:42:14 AM Referred By: Confirmed By: Jean Paul Holt 12/12/24 1042 Date Jean Paul Holt MD CC: Dr. Sukhi Forbes DO; Dr. Marianela Edwards DO; Dr. Jean Paul Holt MD Signed Normal [facility] 12 Lead EKG [facility] [address] [place] [address] 12 Lead EKG 12/11/24 0550 MR#: [id number] Acct: [id number] Name: MAUREEN ANSARI Rep #: [id number] : 1955 69 From: Jean Paul Holt [...] IS UNCONFIRMED Confirmed by Jean Paul Holt ([id number]), editor continuity and script PARISA ENAMORADO ([id number]) on 12/11/2024 11:10:42 AM Referred By: Confirmed By: Jean Paul Holt 12/11/24 1110 Date Jean Paul Holt MD CC: Dr. Sukhi Forbes DO; Dr. Marianela Edwards DO; Dr. Isaac Araujo DO Signed Normal [facility] Basic Metabolic Profile (BMP )on 12-11-2024 BUN/CRE 10.7 RATIO Normal 04-22 [facility] Comment on above: Performed By: #### L 501.9520, L100.0100, L501.5200, L500.2500 #### [facility] [address] [place], [place], [id number] Calcium [Mass/Vol] 9.0 mg/dL Normal 7.6-11.0 [facility] Comment on above: Performed By: #### L 501.9520, L100.0100, L501.5200, L500.2500 #### [facility] [address] [place], [address] Chloride [Moles/Vol] 104 mmol/L Normal 98-108 [facility] Comment on above: Performed By: #### L 501.9520, L100.0100, L501.5200, L500.2500 #### [facility] [address] [place], [address] CO2 [Moles/Vol] 21.2 mmol/L Normal 21.0-32.0 [facility] Comment on above: Performed By: #### L 501.9520, L100.0100, L501.5200, L500.2500 #### [facility] [address] [place], [address] Creatinine [Mass/Vol] 1.08 mg/dL Normal 0.70-1.20 [facility] Comment on above: Performed By: #### L 501.9520, L100.0100, L501.5200, L500.2500 #### [facility] [address] [place], [address] ECRCL 35.81 ml/min Low 50-250 [facility] Comment on above: Performed By: #### L 501.9520, L100.0100, L501.5200, L500.2500 #### [facility] [address] [place], [address] GAP 12 Normal 5-15 [facility] Comment on above: Performed By: #### L 501.9520, L100.0100, L501.5200, L500.2500 #### [facility] [address] [place], [address] GFR/1.73 sq M.predicted among non-blacks MDRD (S/P/Bld) [Vol rate/Area] 56 mL/min/{1.73_m2} Low >60 [facility] Comment on above: Result Comment: mL/m in/1.73m2 CKD-EPI Creatinine Equation (2020) Performed By: #### L 501.9520, L100.0100, L501.5200, L500.2500 #### [facility] [address] [place], [address] Glucose [Mass/Vol] 137 mg/dL High 70-99 [facility] Comment on above: Performed By: #### L 501.9520, L100.0100, L501.5200, L500.2500 #### [facility] [address] [place], [address] Potassium [Moles/Vol] 4.0 mmol/L Normal 3.3-5.1 [facility] Comment on above: Performed By: #### L 501.9520, L100.0100, L501.5200, L500.2500 #### [facility] [address] [place], [address] Sodium [Moles/Vol] 137 mmol/L Normal 133-145 [facility] Comment on above: Performed By: #### L 501.9520, L100.0100, L501.5200, L500.2500 #### [facility] [address] [place], [address] Urea nitrogen [Mass/Vol] 12 mg/dL Normal 4-19 [facility] Comment on above: Performed By: #### L 501.9520, L100.0100, L501.5200, L500.2500 #### [facility] [address] [place], [address] BUN/CRE 11.8 RATIO Normal 10-20 [facility] Comment on above: Performed By: #### L 503.7505, L100.0100, L500.2500, L501.4021 ####[facility] [address] [place], [address] Calcium [Mass/Vol] 8.9 mg/dL Normal 7.6-11.0 [facility] Comment on above: Performed By: #### L 503.7505, L100.0100, L500.2500, L501.4021 ####[facility] [address] [place], [address] Chloride [Moles/Vol] 106 mmol/L Normal 98-108 [facility] Comment on above: Performed By: #### L 503.7505, L100.0100, L500.2500, L501.4021 ####[facility] [address] [place], [address] CO2 [Moles/Vol] 18.3 mmol/L Low 21.0-32.0 [facility] Comment on above: Performed By: #### L 503.7505, L100.0100, L500.2500, L501.4021 ####[facility] [address] [place], [address] Creatinine [Mass/Vol] 1.08 mg/dL Normal 0.70-1.20 [facility] Comment on above: Performed By: #### L 503.7505, L100.0100, L500.2500, L501.4021 ####[facility] [address] [place], [address] ECRCL 39.30 ml/min Low 50-250 [facility] Comment on above: Performed By: #### L 503.7505, L100.0100, L500.2500, L501.4021 ####[facility] [address] [place], [address] GAP 12 Normal 5-15 [facility] Comment on above: Performed By: #### L 503.7505, L100.0100, L500.2500, L501.4021 ####[facility] [address] [place], [address] GFR/1.73 sq M.predicted among non-blacks MDRD (S/P/Bld) [Vol rate/Area] 56 mL/min/{1.73_m2} Low >60 [facility] Comment on above: Result Comment: mL/m in/1.73m2 CKD-EPI Creatinine Equation (2020) Performed By: #### L 503.7505, L100.0100, L500.2500, L501.4021 ####[facility] [address] [place], [address] Glucose [Mass/Vol] 126 mg/dL High 70-99 [facility] Comment on above: Performed By: #### L 503.7505, L100.0100, L500.2500, L501.4021 ####[facility] [address] [place], [address] Potassium [Moles/Vol] 3.9 mmol/L Normal 3.3-5.1 [facility] Comment on above: Performed By: #### L 503.7505, L100.0100, L500.2500, L501.4021 ####[facility] [address] [place], [address] Sodium [Moles/Vol] 137 mmol/L Normal 133-145 [facility] Comment on above: Performed By: #### L 503.7505, L100.0100, L500.2500, L501.4021 ####[facility] [address] [place], [address] Urea nitrogen [Mass/Vol] 13 mg/dL Normal 4-19 [facility] Comment on above: Performed By: #### L 503.7505, L100.0100, L500.2500, L501.4021 ####[facility] [address] [place], [address] CBC W/Diff, Automatedon 06- 0-2024 Absolute Lymph 1.93 X10 3/uL Normal 0.83-4.51 [facility] Comment on above: Performed By: #### L 501.9520, L100.0100, L501.5200, L500.2500 #### [facility] [address] [place], [address] Absolute Neut 8.1 X10 3/uL High 2.0-7.7 [facility] Comment on above: Performed By: #### L 501.9520, L100.0100, L501.5200, L500.2500 #### [facility] [address] [place], [address] Basophils/100 WBC (Bld) 0.7 % Normal 0-1 [facility] Comment on above: Performed By: #### L 501.9520, L100.0100, L501.5200, L500.2500 #### [facility] [address] [place], [address] Eosinophils/100 WBC (Bld) 2.9 % Normal 0-5 [facility] Comment on above: Performed By: #### L 501.9520, L100.0100, L501.5200, L500.2500 #### [facility] [address] [place], [address] Erythrocyte distribution width (RBC) [Ratio] 13.0 % Normal 11.6-14.6 [facility] Comment on above: Performed By: #### L 501.9520, L100.0100, L501.5200, L500.2500 #### [facility] [address] [place], [address] Hematocrit (Bld) [Volume fraction] 41.5 % Normal 37-47 [facility] Comment on above: Performed By: #### L 501.9520, L100.0100, L501.5200, L500.2500 #### [facility] [address] [place], [address] Hemoglobin (Bld) [Mass/Vol] 14.0 g/dL Normal 12.0-15.0 [facility] Comment on above: Performed By: #### L 501.9520, L100.0100, L501.5200, L500.2500 #### [facility] [address] [place], [address] IG% 0.400 Normal 0.0-0.9 [facility] Comment on above: Result Comment: IG% - Immature Granulocytes (promyelocytes, myelocytes and metamyelocytes) > 1% indicates that a LEFT SHIFT is Present. Performed By: #### L 501.9520, L100.0100, L501.5200, L500.2500 #### [facility] [address] [place], [address] Lymphocytes/100 WBC (Bld) 16.7 % Low 19-41 [facility] Comment on above: Performed By: #### L 501.9520, L100.0100, L501.5200, L500.2500 #### [facility] [address] [place], [address] MCH (RBC) [Entitic mass] 30.8 pg Normal 27.0-32.0 [facility] Comment on above: Performed By: #### L 501.9520, L100.0100, L501.5200, L500.2500 #### [facility] [address] [place], [address] MCHC (RBC) [Mass/Vol] 33.7 g/dL Normal 32-36 [facility] Comment on above: Performed By: #### L 501.9520, L100.0100, L501.5200, L500.2500 #### [facility] [address] [place], [address] MCV (RBC) [Entitic vol] 91.2 fL Normal 81-99 [facility] Comment on above: Performed By: #### L 501.9520, L100.0100, L501.5200, L500.2500 #### [facility] [address] [place], [address] Monocytes/100 WBC (Bld) 9.6 % Normal 0-10 [facility] Comment on above: Performed By: #### L 501.9520, L100.0100, L501.5200, L500.2500 #### [facility] [address] [place], [address] Neutrophils/100 WBC (Bld) 69.7 % Normal 47-70 [facility] Comment on above: Performed By: #### L 501.9520, L100.0100, L501.5200, L500.2500 #### [facility] [address] [place], [address] Nucleated RBC (Bld) [#/Vol] 0 10*3/uL Normal 0-5 [facility] Comment on above: Performed By: #### L 501.9520, L100.0100, L501.5200, L500.2500 #### [facility] [address] [place], [address] Platelet mean volume (Bld) [Entitic vol] 9.8 fL Normal 6.2-12.0 [facility] Comment on above: Performed By: #### L 501.9520, L100.0100, L501.5200, L500.2500 #### [facility] [address] [place], [address] Platelets (Bld) [#/Vol] 379 10*3/uL Normal 150-450 [facility] Comment on above: Performed By: #### L 501.9520, L100.0100, L501.5200, L500.2500 #### [facility] [address] [place], [address] RBC (Bld) [#/Vol] 4.55 10*6/uL Normal 4.2-5.4 [facility] Comment on above: Performed By: #### L 501.9520, L100.0100, L501.5200, L500.2500 #### [facility] [address] [place], [address] RDW SD 43.5 fl Normal 35.1-43.9 [facility] Comment on above: Performed By: #### L 501.9520, L100.0100, L501.5200, L500.2500 #### [facility] [address] [place], [address] WBC (Bld) [#/Vol] 11.6 10*3/uL High 4.4-11.0 [facility] Comment on above: Performed By: #### L 501.9520, L100.0100, L501.5200, L500.2500 #### [facility] [address] [place], [address] Absolute Lymph 1.87 X10 3/uL Normal 0.83-4.51 [facility] Comment on above: Performed By: #### L 503.7505, L100.0100, L500.2500, L501.4021 ####[facility] [address] [place], [address] Absolute Neut 7.5 X10 3/uL Normal 2.0-7.7 [facility] Comment on above: Performed By: #### L 503.7505, L100.0100, L500.2500, L501.4021 ####[facility] [address] [place], [address] Basophils/100 WBC (Bld) 1.0 % Normal 0-1 [facility] Comment on above: Performed By: #### L 503.7505, L100.0100, L500.2500, L501.4021 ####[facility] [address] [place], [address] Eosinophils/100 WBC (Bld) 3.1 % Normal 0-5 [facility] Comment on above: Performed By: #### L 503.7505, L100.0100, L500.2500, L501.4021 ####[facility] [address] [place], [address] Erythrocyte distribution width (RBC) [Ratio] 13.2 % Normal 11.6-14.6 [facility] Comment on above: Performed By: #### L 503.7505, L100.0100, L500.2500, L501.4021 ####[facility] [address] [place], [address] Hematocrit (Bld) [Volume fraction] 40.4 % Normal 37-47 [facility] Comment on above: Performed By: #### L 503.7505, L100.0100, L500.2500, L501.4021 ####[facility] [address] [place], [address] Hemoglobin (Bld) [Mass/Vol] 13.7 g/dL Normal 12.0-15.0 [facility] Comment on above: Performed By: #### L 503.7505, L100.0100, L500.2500, L501.4021 ####[facility] [address] [place], [address] IG% 1.700 High 0.0-0.9 [facility] Comment on above: Result Comment: IG% - Immature Granulocytes (promyelocytes, myelocytes and metamyelocytes) > 1% indicates that a LEFT SHIFT is Present. Performed By: #### L 503.7505, L100.0100, L500.2500, L501.4021 ####[facility] [address] [place], [address] Lymphocytes/100 WBC (Bld) 16.5 % Low 19-41 [facility] Comment on above: Performed By: #### L 503.7505, L100.0100, L500.2500, L501.4021 ####[facility] [address] [place], [address] MCH (RBC) [Entitic mass] 30.8 pg Normal 27.0-32.0 [facility] Comment on above: Performed By: #### L 503.7505, L100.0100, L500.2500, L501.4021 ####[facility] [address] [place], [address] MCHC (RBC) [Mass/Vol] 33.9 g/dL Normal 32-36 [facility] Comment on above: Performed By: #### L 503.7505, L100.0100, L500.2500, L501.4021 ####[facility] [address] [place], [address] MCV (RBC) [Entitic vol] 90.8 fL Normal 81-99 [facility] Comment on above: Performed By: #### L 503.7505, L100.0100, L500.2500, L501.4021 ####[facility] [address] [place], [address] Monocytes/100 WBC (Bld) 11.4 % High 0-10 [facility] Comment on above: Performed By: #### L 503.7505, L100.0100, L500.2500, L501.4021 ####[facility] [address] [place], [address] Neutrophils/100 WBC (Bld) 66.3 % Normal 47-70 [facility] Comment on above: Performed By: #### L 503.7505, L100.0100, L500.2500, L501.4021 ####[facility] [address] [place], [address] Nucleated RBC (Bld) [#/Vol] 0 10*3/uL Normal 0-5 [facility] Comment on above: Performed By: #### L 503.7505, L100.0100, L500.2500, L501.4021 ####[facility] [address] [place], [address] Platelet mean volume (Bld) [Entitic vol] 10.1 fL Normal 6.2-12.0 [facility] Comment on above: Performed By: #### L 503.7505, L100.0100, L500.2500, L501.4021 ####[facility] [address] [place], [address] Platelets (Bld) [#/Vol] 377 10*3/uL Normal 150-450 [facility] Comment on above: Performed By: #### L 503.7505, L100.0100, L500.2500, L501.4021 ####[facility] [address] [place], [address] RBC (Bld) [#/Vol] 4.45 10*6/uL Normal 4.2-5.4 [facility] Comment on above: Performed By: #### L 503.7505, L100.0100, L500.2500, L501.4021 ####[facility] [address] [place], [address] RDW SD 43.1 fl Normal 35.1-43.9 [facility] Comment on above: Performed By: #### L 503.7505, L100.0100, L500.2500, L501.4021 ####[facility] [address] [place], [address] WBC (Bld) [#/Vol] 11.3 10*3/uL High 4.4-11.0 [facility] Comment on above: Performed By: #### L 503.7505, L100.0100, L500.2500, L501.4021 ####[facility] [address] [place], [address] CTA Chest W/WO Contraston CTA Chest W/WO Contrast [facility] [address] [place] [address] CTA Chest W/WO Contrast MR#: [id number] Acct: [id number] Name: MAUREEN ANSARI Rep #: [id number] : 1955 F 69 From: Sam casper MD PCP: Care Physician,No Primary Status: REG ER Study: CTA Chest W/WO Contrast Date of Exam: 12/11/24 Exam# [id number] Ordering Dr: Isaac Araujo DO PROCEDURE: CTA [...] hypertrophy of the adrenal glands. Reading Location: [place] [address] CC: Dr. Isaac Araujo, DO; No Primary Care Physician Laboratory Tester: Signed [facility] Calculated very low density lipoprotein (VLDL) cholesterol measurementOrdered By: Sukhi Forbes on 12-11-2024 Calculated very low density lipoprotein (VLDL) cholesterol measurement 17 mg/dL 5-40 [facility] Consultation - Cardiologyon 12-11-2024 Consultation - Cardiology [facility] Medical Records Department [address] [place] [address] Consultation - Cardiology 12/11/24 0957 MR#: [id number] Acct: [id number] Name: MAUREEN ANSARI ALYSHA Rep #: [id number] : 1955 69 From: Jean Paul Holt [...] She underwent right internal carotid endarterectomy in [place]. She denies any history of CVA or TIA. 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 The patient did undergo MRI recently by the [facility] since moving to [place]. (3) Elevated troponin: PLAN: Patient's troponins have [...] She did undergo an MRI recently in [place] and was cleared by her previous surgeon in [place] to have this done. The patient came [...] lived in (more content not included)... Normal [facility] Echo Completeon 12-11-2024 Echo Complete [facility] [address] [place] [address] Echo Complete 12/11/24 0945 MR#: [id number] Acct: [id number] Name: MAUREEN ANSARI Rep #: [id number] : 1955 69 From: Virginie Galarza MD [...] Date Dictated: 12/11/24944 Date Transcribed: 12/11/24 1116 Laboratory Tester: Signed Normal [facility] Echocardiogram study reportO rdered By: Virginie Galarza on 12-11-2024 Study report [facility] [address] [place] [address] Echo Complete 12/11/24944 MR#: [id number] Acct: [id number] Name: MAUREEN ANSARI Rep #:[id number] : 1955 69 From: Virginie Galarza MD [...] Dictated: 12/11/24 0945 Date Transcribed: 12/11/24 1116 Laboratory Tester: Signed [facility] Work Phone: Electrocardiogram reportOrde red By: Jean Paul Holt on 12-11-2024 EKG study [facility] Services [address] [place] [address] 12 Lead EKG 12/11/24 0021 MR#: [id number] Acct: [id number] Name: MAUREEN ANSARI ALYSHA Rep #:[id number] : 1955 69 From: Jean Paul gee [...] Abnormal ECG Confirmed by Jean Paul Holt ([id number]), editor continuity and script PARISA ENAMORADO ([id number]) on 12/11/2024 11:17:54 AM Referred By: TB Confirmed By: Jean Paul Holt 12/11/241116 Date _ Jean Paul Holt MD CC: Dr. Sukhi Forbes DO; Dr. Marianela Edwards DO; Dr. Isaac Araujo DO ~ Signed [facility] Work Phone: EKG study [facility] Cardi[facility] Services [address] [place] [address] 12 Lead EKG 12/11/24 0550 MR#: [id number] Acct: [id number] Name: MAUREEN ANSARI ALYSHA Rep #:[id number] : 1955 69 From: Jean Paul gee [...] IS UNCONFIRMED Confirmed by Jean Paul Holt ([id number]), editor continuity and script PARISA ENAMORADO ([id number]) on 12/11/2024 11:10:42 AM Referred By: Confirmed By: Jean Paul Holt 12/11/24 111 Date _ Jean Paul Holt MD CC: Dr. Sukhi Forbes, DO; Dr. Marianela Edwards, DO; Dr. Isaac Araujo, DO ~ Signed [facility] Work Phone: [phone] 12-11-2024 Trop T High Sen 1735 ng/L Invalid Interpretation Code <=14 [facility] Comment on above: Result Comment: Crit ical Result(s) Called at: 0251 by:??WALDO WOODARD TO TESHA HAAS. Results read back by same. Performed By: #### L 499.0042 ####[facility] [address] [place], [address] L499.0043on 12-11-2024 Trop T High Sen 2120 ng/L Invalid Interpretation Code <=14 [facility] Comment on above: Result Comment: Crit ical Result(s) Called at: 12/11/2024-05:04 by: Nelson Henriquez.??Results read back by same. Performed By: #### L 100.0100, L500.2500 #### [facility] [address] [place], [address] L501.4021on 12-11-2024 Trop T High Sen 1980 ng/L Invalid Interpretation Code <=14 [facility] Comment on above: Result Comment: Crit ical Result(s) Called at: 0032 by:??WALDO WOODARD TO TESHA RUSS. Results read back by same. Performed By: #### L 503.7505, L100.0100, L500.2500, L501.4021 ####[facility] [address] [facility] [place], [address] L503.7505on 12-11-2024 Natriuretic peptide B (Bld) [Mass/Vol] 7545 pg/mL High <=900 [facility] Comment on above: Result Comment: Hear t Failure Unlikely: < 300 pg/mL Heart Failure Likely < 50 Years: > 450 pg/mL 50-75 Years: > 900 pg/mL >75 Years: > 1800 pg/mL Performed By: #### L 503.7505, L100.0100, L500.2500, L501.4021 ####[facility] [address] [place], [address] LDL calc ser/plasOrdered By: Sukhi Forbes on 12-11-2024 Cholesterol in LDL [Mass/Vol] 131 mg/dL [facility] Comment on above: Eaerlprtzr=887-465 m g/dL & Higher Icki=207 mg/dL or greater Lipid Profileon 12-11-2024 CHOL:HDL 6.65 Normal [facility] Comment on above: Performed By: #### L 100.0100, L500.2500 #### [facility] [address] [place], [address] Cholesterol [Mass/Vol] 175 mg/dL Normal <=200 [facility] Comment on above: Result Comment: Chol esterol level, Desirable <200 mg/dL Borderline high cholesterol 200-239 mg/dL High cholesterol >=240 mg/dL Recommendations of the NCEP Adult Treatment Panel for the following risk-cutoff thresholds for the [place] population. Performed By: #### L 100.0100, L500.2500 #### [facility] [address] [place], [address] Cholesterol in HDL [Mass/Vol] 26 mg/dL Low [facility] Comment on above: Result Comment: Jennifer onal Cholesterol Education Program (NCEP) guidelines: <40 mg/dL: Low HDL-cholesterol (major risk factor for CHD) >= 60 mg/dL: High HDL-cholesterol (negative risk factor for CHD) HDL-cholesterol is affected by a number of factors, e.g. smoking, exercise, hormones, sex and age. Performed By: #### L 100.0100, L500.2500 #### [facility] [address] [place], [address] Cholesterol in LDL [Mass/Vol] 131 mg/dL Normal [facility] Comment on above: Result Comment: Bord lnkycp=457-209 mg/dL Higher Ixgj=918 mg/dL or greater Performed By: #### L 100.0100, L500.2500 #### [facility] [address] [place], [address] Cholesterol in VLDL [Mass/Vol] 17 mg/dL Normal 5-40 [facility] Comment on above: Performed By: #### L 100.0100, L500.2500 #### [facility] [address] [place], [address] Triglyceride [Mass/Vol] 87 mg/dL Normal [facility] Comment on above: Result Comment: The drugs N-Acetylcysteine and Metamizole may falsely depress this assay. Normal range: <150 mg/dL Borderline High: 150-199 mg/dL High: 200-499 mg/dL Very High: >500 mg/dL Performed By: #### L 100.0100, L500.2500 #### [facility] [address] [place], [address] Magnesiumon 12-11-2024 Magnesium [Mass/Vol] 1.9 mg/dL Normal 1.5-2.2 [facility] Comment on above: Performed By: #### L 501.9520, L100.0100, L501.5200, L500.2500 #### [facility] [address] [place], [address] Magnesium measurement (mass/ volume)Ordered By: Francis Bojorquez on 12-11-2024 Magnesium (Unsp spec) [Mass/Vol] 1.9 mg/dL 1.5-2.2 [facility] Screening total cholesterol/ high density lipoprotein (HDL) cholesterol ratioOrdered By: Sukhi Forbes on 12-11-2024 Cholesterol.total/Choles terol in HDL [Mass ratio] 6.65 {ratio} [facility] Serum or plasma cholesterol in HDL measurement (mass/volume)Ordered By: Sukhi Forbes on 12-11-2024 Cholesterol in HDL [Mass/Vol] 26 mg/dL Low >40 [facility] Comment on above: National Cholesterol Education Program (NCEP) guidelines:<40 mg/dL: Low HDL-cholesterol (major risk factor for CHD)>= 60 mg/dL: High HDL-cholesterol (negative risk factor for CHD)HDL-cholesterol is affected by a number of factors, e.g. smoking, exercise, hormones, sex and age. Serum or plasma cholesterol measurement (mass/volume)Ordered By: Sukhi Forbes on 12-11-2024 Cholesterol [Mass/Vol] 175 mg/dL <201 [facility] Comment on above: Cholesterol level, D esirable <200 mg/dLBorderline high cholesterol 200-239 mg/dLHigh cholesterol >=240 mg/dLRecommendations of the NCEP Adult Treatment Panel for the following risk-cutoff thresholds for the [place] population. T4 Free Directon 12-11-2024 T4 FREE DIRECT 1.90 ng/dL High 0.76-1.46 [facility] Comment on above: Performed By: #### L 100.0100, L500.2500 #### [facility] [address] [place], [address] T4 freeOrdered By: Sukhi pacheco on 12-11-2024 Free T4 [Mass/Vol] 1.90 ng/dL High 0.76-1.46 [facility] TSH DL <= 0.005 mIU/L QnOrde red By: Francis Bojorquez on 12-11-2024 TSH Qn 0.046 uIU/mL Low 0.300-4.200 [facility] Thyroid Stim Hormone (TSH)on 12-11-2024 TSH 0.046 uIU/mL Low 0.300-4.200 [facility] Comment on above: Performed By: #### L 501.9520, L100.0100, L501.5200, L500.2500 #### [facility] [address] [place], [place], [address] Triglycerides measurementOrd ered By: Sukhi Forbes on [...] sensitivity method [Mass/Vol] 2120 ng/L High <14 [facility] Comment on above: Critical Result(s) C alled at: 12/11/2024-05:04 by: Nelson Henriquez. Results read back by same. Troponin T.cardiac High sensitivity method [Mass/Vol] 1735 ng/L High <14 [facility] [facility] Comment on above: Critical Result(s) C alled at: 0251 by: WALDO WOODARD TO TESHA HAAS. Results read back by same. 12 Lead EKGon 12-10-2024 12 Lead EKG [facility] Cardiovascular Services [address] [place] [address] 12 Lead EKG 12/11/24 0021 MR#: [id number] Acct: [id number] Name: MAUREEN ANSARI ALYSHA Rep #: [id number] : 1955 69 From: Jean Paul Holt [...] Abnormal ECG Confirmed by Jean Paul Holt ([id number]), editor continuity and script PARISA ENAMORADO ([id number]) on 12/11/2024 11:17:54 AM Referred By: TB Confirmed By: Jean Paul Holt 12/11/24 1117 Date Jean Paul Holt MD CC: Dr. Sukhi Forbes, DO; Dr. Marianela Edwards, DO; Dr. Isaac Araujo, DO Signed [facility] Absolute lymphocyte countOrd ered By: Isaac Araujo on 12-10-2024 Lymphocytes Auto (Unsp spec) [#/Vol] 1.87 10*3/uL 0.83-4.51 [facility] Absolute neutrophil countOrd ered By: Isaac Araujo on 12-10-2024 Neutrophils (Bld) [#/Vol] 7.5 10*3/uL 2.0-7.7 [facility] Anion gap in Serum or Plasma Ordered By: Isaac Araujo on 12-10-2024 Anion gap [Moles/Vol] 12 mmol/L 5-15 [facility] Automated lymphocyte count a s percentage of total leukocytesOrdered By: Isaac Araujo on 12-10-2024 Lymphocytes/100 WBC Auto (Unsp spec) 16.5 % Low 19-41 [facility] BUN/creatinine ratioOrdered By: Isaac Araujo on 12-10-2024 Urea nitrogen/Creatinine [Mass ratio] 11.8 mg/mg 10-20 [facility] Basophil percentageOrdered B y: Isaac Araujo on 12-10-2024 Basophils/100 WBC (Bld) 1.0 % 0-1 [facility] Carbon dioxide, total [Moles /volume] in Central venous bloodOrdered By: Isaac Araujo on 12-10-2024 CO2 [Moles/Vol] 18.3 mmol/L Low 21.0-32.0 [facility] Chest PA and Lateralon 12-10 Chest PA and Lateral [facility] Imaging Services [address] [place], [place] [id number] Chest PA and Lateral MR#: [id number] Acct: [id number] Name: MAUREEN ANSARI ALYSHA Rep #: [id number] : 1955 F 69 From: Sam casper MD PCP: Care Physician,No Primary Status: PRE ER Study: Chest PA and Lateral Date of Exam: 12/10/24 Exam# [id number] Ordering Dr: Isaac Araujo DO PROCEDURE: CHEST [...] CHF changes. Follow-up is advised Reading Location: [place] [address] CC: Dr. Isaac Araujo DO; No Primary Care Physician Laboratory Tester: Signed [facility] Chloride assayOrdered By: Remington Araujo on 12-10-2024 Chloride [Moles/Vol] 106 mmol/L 98-108 [facility] Emergency Department Summary on 12-10-[address] [facility] Medical Records Department [address] [place] [address] Emergency Department Summary 12/10/24 MR#: [id number] Acct: [id number] Name: MAUREEN ANSARI ALYSHA Rep #: [id number] : 1955 69 From: Isaac Araujo DO [...] of recent travel, surgeries, DVT or PE [facility] Medical History (Updated 12/11/24 @ 03:06 by [...] following commands knew that she was at [facility] the year is 2024 Skin: Warm, dry, intact no rashes or lesions noted Const Vital Signs: 12/10/24 23:24 12/10/24 23:26 12/10/24 23:34 Temperature 98.2 F 98.2 F Temperature (more content not included)... [facility] Eosinophil percentageOrdered By: Isaac Araujo on 12-10-2024 Eosinophils/100 WBC (Bld) 3.1 % 0-5 [facility] Erythrocyte distribution wid th ratioOrdered By: Isaac Araujo on 12-10-2024 Erythrocyte distribution width (RBC) [Ratio] 13.2 % 11.6-14.6 [facility] Erythrocyte distribution wid th standard deviationOrdered By: Isaac Araujo on 12-10-2024 Erythrocyte distribution width (RBC) [Ratio] 43.1 fl 35.1-43.9 [facility] Glomerular filtration rate ( GFR) estimation/1.73 sq m using serum, plasma, or whole bOrdered By: Isaac Araujo on 12-10-2024 GFR/1.73 sq M.predicted among non-blacks MDRD (S/P/Bld) [Vol rate/Area] 56 mL/min/{1.73_m2} Low >60 [facility] Comment on above: mL/min/1.73m2 CKD-EP I Creatinine Equation (2020) Hematocrit Auto (Bld) [Volum e fraction]Ordered By: Isaac Araujo on 12-10-2024 Hematocrit (Bld) [Volume fraction] 40.4 % 37-47 [facility] Hemoglobin measurementOrdere d By: Isaac Araujo on 12-10-2024 Hemoglobin (Bld) [Mass/Vol] 13.7 g/dL 12.0-15.0 [facility] Immature granulocytes/100 WB C Auto (Bld)Ordered By: Isaac Araujo on 12-10-2024 Immature granulocytes/100 WBC (Bld) 1.700 % High 0.0-0.9 [facility] Comment on above: IG% - Immature Granu locytes (promyelocytes, myelocytes and metamyelocytes) > 1% indicates that a LEFT SHIFT is Present. MCV (mean corpuscular volume ) determinationOrdered By: Isaac Araujo on 12-10-2024 MCV (RBC) [Entitic vol] 90.8 fL 81-99 [facility] Mean corpuscular hemoglobin (MCH) determinationOrdered By: Isaac Araujo on 12-10-2024 MCH (RBC) [Entitic mass] 30.8 pg 27.0-32.0 [facility] Mean corpuscular hemoglobin concentration (MCHC) determinationOrdered By: Isaac Araujo on 12-10-2024 MCHC (RBC) [Mass/Vol] 33.9 g/dL 32-36 [facility] Mean platelet volume determi nationOrdered By: Isaac Araujo on 12-10-2024 Platelet mean volume (Bld) [Entitic vol] 10.1 fL 6.2-12.0 [facility] Monocyte percentageOrdered B y: Isaac Araujo on 12-10-2024 Monocytes/100 WBC (Bld) 11.4 % High 0-10 [facility] Natriuretic peptide.B prohor fernando N-Terminal [Mass/volume] in Serum or PlasmaOrdered By: Isaac Araujo on 12-10-2024 Natriuretic peptide.B prohormone N-Terminal [Mass/Vol] 7545 pg/mL High <900 [facility] Comment on above: Heart Failure Unlike ly: < 300 pg/mLHeart Failure Likely< 50 Years: > 450 pg/mL50-75 Years: > 900 pg/mL>75 Years: > 1800 pg/mL Neutrophil percentageOrdered By: Isaac Araujo on 12-10-2024 Neutrophils/100 WBC (Bld) 66.3 % 47-70 [facility] Nucleated red blood cell per centageOrdered By: Isaac Araujo on 12-10-2024 Nucleated RBC/100 WBC (Bld) [Ratio] 0 % 0-5 [facility] Platelet countOrdered By: Remington Araujo on 12-10-2024 Platelets (Bld) [#/Vol] 377 10*3/uL 150-450 [facility] Potassium measurement (mass/ volume)Ordered By: Isaac Araujo on 12-10-2024 Potassium (Unsp spec) [Mass/Vol] 3.9 mmol/L 3.3-5.1 [facility] RBC Auto (Bld) [#/Vol]Ordere d By: Isaac Araujo on 12-10-2024 RBC (Bld) [#/Vol] 4.45 10*6/uL 4.2-5.4 [facility] Serum creatinine measurement (mass/volume)Ordered By: Isaac Araujo on 12-10-2024 Creatinine [Mass/Vol] 1.08 mg/dL 0.70-1.20 [facility] Serum glucose measurement (m ass/volume)Ordered By: Isaac Araujo on 12-10-2024 Glucose [Mass/Vol] 126 mg/dL High 70-99 [facility] Serum or plasma calcium katerin urement (mass/volume)Ordered By: Isaac Araujo on 12-10-2024 Calcium [Mass/Vol] 8.9 mg/dL 7.6-11.0 [facility] Serum or plasma urea nitroge n measurement (mass/volume)Ordered By: Isaac Araujo on 12-10-2024 Urea nitrogen [Mass/Vol] 13 mg/dL 4-19 [facility] Sodium levelOrdered By: Letty Araujo on 12-10-2024 Sodium [Moles/Vol] 137 mmol/L 133-145 [facility] Troponin T.cardiac [Mass/vol ume] in Serum or Plasma by High sensitivity methodOrdered By: Isaac Araujo on 12-10-2024 Troponin T.cardiac High sensitivity method [Mass/Vol] 1980 ng/L High <14 [facility] Comment on above: Critical Result(s) C alled at: 0032 by: WALDO WOODARD TO TESHA RUSS. Results read back by same. White blood cell (WBC) count Ordered By: Isaac Araujo on 12-10-2024 WBC (Bld) [#/Vol] 11.3 10*3/uL High 4.4-11.0 [facility] TSH SerPl-aCncon 12-03-2024 TSH Qn 0.116 m[IU]/L Low 0.270-4.200 [facility] Comment on above: Order Comment: Speci men Type: BLOOD SPECIMENOrdering Facility: [facility] Address: [address] [place] [address] Performed By: #### 3 016-3 ####[facility] LABCLIA [id number] [place] [address] [place] Spine Cervical (Routine)on 0 11-19-2024 Spine Cervical (Routine) [facility] Imaging Services [address] [place] [address] Spine Cervical (Routine) MR#: [id number] Acct: [id number] Name: MAUREEN ANSARI ALYSHA Rep #: [id number] : 1955 F 69 From: Ravin Weinstein MD PCP: Care Physician,No Primary Status: REG CLI Study: Spine Cervical (Routine) Date of Exam: Exam# [id number] Ordering Dr: Brayden Underwood MD PROCEDURE: SPINE [...] Brayden Underwood MD; No Primary Care Physician Laboratory Tester: Signed Normal [facility] 11-16-2024 [facility] Telephone (uVoreNovomer) MAUREEN BARRON ([id number]) 1955 F CHT Date Time Provider Department [...] [E03.9] Order(s):THYROID STIMULATING HORMONE [SQTSH] Order #: [id number] FUTURE Prescriptions as of 11/16/2024 - amLODIPine [...] Status:Closed by DESIRE MOSS on 11/16/24 Normal [facility] Lipid 1996 panelon Cholesterol [Mass/Vol] 142 mg/dL Normal <[address] [facility] Comment on above: Order Comment: Speci men Type: BLOOD SPECIMENOrdering Facility: [facility] Address: [address] [place] [address] Result Comment: <200 mg/dL, Desirable 200-239 mg/dL, Borderline high>239 mg/dL, High Performed By: #### 2 4331-1 ####[facility] LABCLIA [id number] [place] [address] [place] [facility] [id number] [place] [address] [place] Cholesterol in HDL [Mass/Vol] 53 mg/dL Normal >39 [facility] Comment on above: Order Comment: Cobyi cassius Type: BLOOD SPECIMENOrdering Facility: [facility] Address: [address] [place] [address] Result Comment: 40-5 9 mg/dL, Acceptable>59 mg/dL, High: Negative risk factor for coronary heart disease<40 mg/dL, Low: Positive risk factor for coronary heart disease Performed By: #### 2 4331-1 ####[facility] LABCLIA [id number] [address] [id number] [address] Cholesterol in LDL [Mass/Vol] 78 mg/dL Normal <100 [facility] Comment on above: Order Comment: Speci men Type: BLOOD SPECIMENOrdering Facility: [facility] Address: [address] [place] [address] Result Comment: <100 mg/dL, Optimal 100-129 mg/dL, Near optimal/above optimal 130-159 mg/dL, Borderline high 160-189 mg/dL, High>189 mg/dL, Very highSecondary prevention optimal LDL Cholesterol levels are recommended to be <70 mg/dLLDL cholesterol is calculated using the Gill-NIH equation. Performed By: #### 2 4331-1 ####[facility] LABIA [id number] [address] [id number] [place] [address] Cholesterol in LDL/Cholesterol in HDL [Mass ratio] 1.47 {ratio} Normal <2.54 [facility] Comment on above: Order Comment: Speci men Type: BLOOD SPECIMENOrdering Facility: [facility] Address: [address] [place] [address] Result Comment: Refe rence:1. National Cholesterol Education Program ATP III Guideline At-A-Glance Quick Desk Reference: National Heart, Lung, and Blood [place]. National Institutes of Health. 2001: NIH Publication No. 01-3305.2. An International Atherosclerosis Society position paper: global recommendations for the management of dyslipidemia: executive summary, Atherosclerosis. 2014: 232(2):410-413. Performed By: #### 2 4331-1 ####[facility] LABIA [id number] [address] [id number] [address] Cholesterol in VLDL [Mass/Vol] 8 mg/dL Normal <30 [facility] Comment on above: Order Comment: Speci men Type: BLOOD SPECIMENOrdering Facility: [facility] Address: [address] [place] [address] Performed By: #### 2 4331-1 ####[facility] LABCLIA [id number] [address] [id number] [place] [address] [place] Cholesterol non HDL [Mass/Vol] 89 mg/dL Normal <130 [facility] Comment on above: Order Comment: Speci men Type: BLOOD SPECIMENOrdering Facility: [facility] Address: [address] [place] [address] Result Comment: <130 mg/dL, Optimal 130-159 mg/dL, Near optimal/above optimal 160-189 mg/dL, Borderline high 190-219 mg/dL, High>219 mg/dL, Very highSecondary prevention optimal non HDL Cholesterol levels are recommended to be <100 mg/dL Performed By: #### 2 4331-1 ####[facility] LABCLIA [id number] [address] [id number] [address] STATES [facility] Cholesterol.total/Choles terol in HDL [Mass ratio] 2.68 {ratio} Normal <5.10 [facility] Comment on above: Order Comment: Speci men Type: BLOOD SPECIMENOrdering Facility: [facility] Address: [address] [place] [address] Performed By: #### 2 4331-1 ####[facility] LABCLIA [id number] [address] STATES [facility] [place] [id number] [place] [address] [place] FASTING TIME 12 hrs Normal [facility] Comment on above: Order Comment: Speci men Type: BLOOD SPECIMENOrdering Facility: [facility] Address: [address] [place] [address] Performed By: #### 2 4331-1 ####[facility] LABCLIA [id number] [address] [id number] [place] [address] [place] Triglyceride [Mass/Vol] 53 mg/dL Normal <150 [facility] Comment on above: Order Comment: Speci men Type: BLOOD SPECIMENOrdering Facility: [facility] Address: [address] [place] [address] Result Comment: <150 mg/dL, Normal 150-199 mg/dL, Borderline high 200-499 mg/dL, High>499 mg/dL, Very high Performed By: #### 2 4331-1 ####[facility] LABCLIA [id number] [address] [id number] [address] [place] Buzz 11-07-2024 DEBBY Telephone (SOFÍA) MAUREEN BARRON ([id number]) 1955 F T Date Time Provider Department 11/07/24 SHEETS, MARIANELA C AGFAMPLE During your visit today, we recorded the following information about you: Gloria Srinivasan MA 11/07/2024 4:21 PM Signed Cecy Amaral [employer]OC[employer] who was out doing a home assessment on patient left message stating patient's BP today was elevated, left arm 180/88 and right arm 176/84. Patient's sister Leena also left message stating patient is willing to start on a BP medication now as her BP has been elevated for awhile. Requesting script be sent to [facility]. Please advise. MIGUEL Valladares Kimberly C, DO 11/08/2024 12:50 PM Addendum Spoke to pt - she would like to restart norvasc 10 mg daily and will f/u in 2 weeks for [place] BP Recheck DO Christopher Levy Brenda, LPN 11/08/2024 2:39 PM Signed Sent to [facility]. Sharee White LPN Allergies As [...] Status:Closed by MARIANELA EDWARDS on 11/08/24 Normal [facility] CNOVon 11-06-2024 CNOV Normal [facility] CNPNon 10-29-2024 CNPN Telephone (AGFAMPLE) MAUREEN BARRON ([id number]) 1955 F T Date Time Provider Department [...] Fully Assessed Reason for Visit: Lab Orders [5938] Primary Visit Diagnosis:Hyperlipid emia, mixed [E78.2] Order(s):LIPID PANEL, FASTING [SQLIPB] Order #: [id number] FUTURE Prescriptions as of 10/29/2024 - levothyroxine [...] Encounter Status:Closed by DESIRE MOSS on 10/29/24 [facility] CTA ABD/PEL/LOWER EXT W IVCO Non 10-19-2024 CTA ABD/PEL/LOWER EXT W IVCON * * *Final Report* * * DATE OF EXAM: Oct 19 2024 2:18PM [facility] [place] ABD/PEL/LOWER EXT W IVCON [...] multifocal calcifica (more content not included)... Normal [facility] CTA Abdominal, Pelvis and Lo wer extremity vessels W contrast Anayeli 10-19-2024 IMPRESSION: Multifocal moderate to high grade atherosclerotic disease as detailed above. Diminutive posterior tibial arteries likely variant for patient. Both legs mainly perfused by the anterior tibial artery. The peroneal artery is intermittently patent with multifocal calcifications. Laboratory Tester: GARY Transcribe Date/Time: Oct 19 2024 4:04P Dictated by : GERRY SMITH MD This examination was interpreted and the report reviewed and electronically signed by: GERRY SMITH MD on Oct 19 2024 4:16PM [facility] * * *Final Report* * * DATE OF EXAM: Oct 19 2024 2:18PM [facility] [place] ABD/PEL/LOWER EXT W IVCON [...] nail fixation screw in the proximal femur [facility] Provider, [facility] [place] - 10/19/2024 * * *Final Report* * * DATE OF EXAM: Oct 19 2024 2:18PM [facility] [place] ABD/PEL/LOWER EXT W IVCON [...] arteries likely luis (more content not included)... [facility] Radiology Study observation (narrative) [facility] CTA Abdominal, Pelvis and Lo wer extremity vessels W contrast IVOrdered By: Ccf Provider on 10-19-2024 [facility] NURSING PROGon 10-19-2024 NURSING PROG HNO ID: [id number] Author: MARBELLA MARIE, TESHA Service: Radiology Author [...] October 19, 2024 TIME: 1:56 PM Normal [facility] Neurology Visit Reporton Neurology Visit Report [facility] [address], [address] [place] [address] OFFICE VISIT Date of Service: 10/18/24 MR#: [id number] Acct: [id number] Name: MAUREEN BARRON Rep #: [id number] : 1955 Provider: Dr. Brayden garcia MD Age/Sex: 69/F Location: [facility] [place] Status: Signed HPI HPI Chief Complaint: Establish Care Details: The patient is a 69-year-old right handed female [facility]. She was referred 08/03/[address] Jaziel Lin with [facility] for right carpal tunnel syndrome. This patient presents with her sister for evaluation. Patient is able to provide information on her own behalf. Sister also provided information. Outside records were reviewed. Patient indicates that she has had a rough life. She was homeless in [place] for a number of years. Patient had [...] Within the past year she moved to [facility] and has reestablished health care. Patient [...] noted during a hospitalization in 2019 at [facility] in [place]. Patient had extensive workup for a variety of medical issues while at [facility] in [place]. She had presented with a concern for stroke based on a right facial droop. 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 Patient had been evaluated at [facility] for tingling [...] No marci (more content not included)... Normal [facility] CNOVon 09-25-2024 CNOV Normal [facility] CREATININE BLDOrdered By: Jan Connor on 09-25-2024 Creatinine [Mass/Vol] 1.19 mg/dL High 0.58 - 0.96 mg/dL [facility] GFR/1.73 sq M.predicted among non-blacks MDRD (S/P/Bld) [Vol rate/Area] 50 mL/min/{1.73_m2} Low - PINF [facility] Comment on above: Estimated Glomerular Filtration [...] Interpretation and review of laboratory results Abnormal [facility] CREATININE BLDon 09-25-2024 Creatinine [Mass/Vol] 1.19 mg/dL High 0.58-0.96 [facility] Comment on above: Order Comment: Speci men Type: BLOOD SPECIMENOrdering Facility: [facility] Address: [address] [place] [address] Performed By: #### C RET1 ####[facility] [id number] [place] [address] [place] Creatinine and Glomerular filtration rate.predicted panel (S/P/Bld) 50 mL/min/1.73m??? Low >=60 [facility] Comment on above: Order Comment: Marika hammonds Type: BLOOD SPECIMENOrdering Facility: [facility] Address: [address] [place] [address] Result Comment: Maru mated Glomerular Filtration Rate [...] actual GFR. Performed By: #### C RET1 ####[facility] [id number] [place] [address] [place] TSH SerPl-aCncon 09-25-2024 TSH Qn 0.063 m[IU]/L Low 0.270-4.200 [facility] Comment on above: Order Comment: Marika hammonds Type: BLOOD SPECIMENOrdering Facility: [facility] Address: [address] [place] [address] Performed By: #### 3 016-3 ####[facility] LABCLIA [id number] [address] [place] Buzz 09-11-2024 CNPN Telephone (SOFÍA) MAUREEN ANSARI ([id number]) 1955 F T Date Time Provider Department [...] Fully Assessed Reason for Visit: Lab Orders [1228] Primary Visit Diagnosis:Hypothyroi dism, acquired [E03.9] Order(s):THYROID STIMULATING HORMONE [SQTSH] Order #: [id number] FUTURE Prescriptions as of 09/18/2024 - levothyroxine [...] Status:Closed by SHARI LÓPEZ on 09/18/24 Normal [facility] BD DXA - AXIAL SKELETONon BD DXA - AXIAL SKELETON Normal [facility] BRAD SCREENING W TOMOon 08-30 BRAD SCREENING W RONALD Normal [facility] PVR LEG RAMAN VAS LABon 2024 PVR LEG RAMAN VAS LAB Normal [facility] US VENOUS INCOMPETENCY RAMAN V LABon 08-29-2024 US VENOUS INCOMPETENCY RAMAN VAS LAB Normal [facility] CNOVon 07-31-2024 CNOV Normal [facility] CNPNon 07-30-2024 CNPN Telephone (RALEIGHFAMPLE) MAUREEN ANSARI Garcia ([id number]) 1955 F CHT Date Time Provider Department [...] Fully Assessed Reason for Visit: Lab Orders [5708] Prescriptions as of 07/31/2024 - levothyroxine (SYNTHROID) [...] Status:Closed by DESIRE MOSS on 07/30/24 Normal [facility] CNPNon 07-28-2024 CNPN Telephone (AGFAMPLE) MAUREEN ANSARI ([id number]) 1955 F CHT Date Time Provider Department [...] synthroid 100 mcg. Advised pt to not citrus picker the 112 mcg, will send in [...] Encounter Status:Closed by MARIANELA EDWARDS on 07/28/24 [facility] CBC panel Auto (Bld)on 07-26 Erythrocyte distribution width (RBC) [Ratio] 13.1 % Normal 11.5-15.0 [facility] Comment on above: Order Comment: Speci men Type: BLOOD SPECIMENOrdering Facility: [facility] Address: [address] [place] [address] Performed By: #### 5 8410-2 ####[facility] [id number] [place] [address] [place] Hematocrit (Bld) [Volume fraction] 56.7 % High 36.0-46.0 [facility] Comment on above: Order Comment: Speci men Type: BLOOD SPECIMENOrdering Facility: [facility] Address: [address] [place] [address] Performed By: #### 5 8410-2 ####[facility] [id number] [place] [address] [place] Hemoglobin (Bld) [Mass/Vol] 18.8 g/dL High 11.5-15.5 [facility] Comment on above: Order Comment: Speci men Type: BLOOD SPECIMENOrdering Facility: [facility] Address: [address] [place] [address] Performed By: #### 5 8410-2 ####[facility] [id number] [place] [address] [place] MCH (RBC) [Entitic mass] 30.7 pg Normal 26.0-34.0 [facility] Comment on above: Order Comment: Speci men Type: BLOOD SPECIMENOrdering Facility: [facility] Address: [address] [place] [address] Performed By: #### 5 8410-2 ####[facility] [id number] [place] [address] [place] MCHC (RBC) [Mass/Vol] 33.2 g/dL Normal 30.5-36.0 [facility] Comment on above: Order Comment: Speci men Type: BLOOD SPECIMENOrdering Facility: [facility] Address: [address] [place] [address] Performed By: #### 5 8410-2 ####[facility] MARIEL [id number] [place] [address] [place] MCV (RBC) [Entitic vol] 92.6 fL Normal 80.0-100.0 [facility] Comment on above: Order Comment: Speci men Type: BLOOD SPECIMENOrdering Facility: [facility] Address: [address] [place] [address] Performed By: #### 5 8410-2 ####[facility]ENTERLUIS ALBERTOLUISAGarcia [id number] [place] [address] [place] Nucleated RBC (Bld) [#/Vol] 10*3/uL Normal <0.01 [facility] Comment on above: Order Comment: Speci men Type: BLOOD SPECIMENOrdering Facility: [facility] Address: [address] [place] [address] Performed By: #### 5 8410-2 ####[facility]ENTERLUIS ALBERTOLUISAA [id number] [place] [address] [place] Platelet mean volume (Bld) [Entitic vol] 9.1 fL Normal 9.0-12.7 [facility] Comment on above: Order Comment: Speci men Type: BLOOD SPECIMENOrdering Facility: [facility] Address: [address] [place] [address] Performed By: #### 5 8410-2 ####[facility]ENTERNCLIA [id number] [place] [address] [place] Platelets (Bld) [#/Vol] 391 10*3/uL Normal 150-400 [facility] Comment on above: Order Comment: Speci men Type: BLOOD SPECIMENOrdering Facility: [facility] Address: [address] [place] [address] Performed By: #### 5 8410-2 ####[facility]ITAL[facility]CL[facility] [id number] [place] [address] [place] RBC (Bld) [#/Vol] 6.12 10*6/uL High 3.90-5.20 [facility] Comment on above: Order Comment: Speci men Type: BLOOD SPECIMENOrdering Facility: [facility] Address: [address] [place] [address] Performed By: #### 5 8410-2 ####[facility]ENTERNCLIA [id number] [place] [address] [place] WBC (Bld) [#/Vol] 10.52 10*3/uL Normal 3.70-11.00 [facility] Comment on above: Order Comment: Speci men Type: BLOOD SPECIMENOrdering Facility: [facility] Address: [address] [place] [address] Performed By: #### 5 8410-2 ####[facility]ENTERNCLIA [id number] [place] [address] [place] Comprehensive metabolic 2000 panelon 07-26-2024 Albumin [Mass/Vol] 4.4 g/dL Normal 3.9-4.9 [facility] Comment on above: Order Comment: Speci men Type: BLOOD SPECIMENOrdering Facility: [facility] Address: [address] [place] [address] Performed By: #### 2 4323-8 ####[facility]ENTERNCLIA [id number] [place] [address] [place] ALP [Catalytic activity/Vol] 96 U/L Normal 34-123 [facility] Comment on above: Order Comment: Speci men Type: BLOOD SPECIMENOrdering Facility: [facility] Address: [address] [place] [address] Performed By: #### 2 4323-8 ####[facility] H[facility]PITALTOWNCLIA [id number] [place] [address] [place] ALT [Catalytic activity/Vol] 15 U/L Normal 7-38 [facility] Comment on above: Order Comment: Speci men Type: BLOOD SPECIMENOrdering Facility: [facility] Address: [address] [place] [address] Performed By: #### 2 4323-8 ####[facility]ITALWNCLIA [id number] [place] [address] [place] Anion gap [Moles/Vol] 9 mmol/L Normal 8-15 [facility] Comment on above: Order Comment: Speci men Type: BLOOD SPECIMENOrdering Facility: [facility] Address: [address] [place] [address] Performed By: #### 2 4323-8 ####[facility]ENTERNCLIA [id number] [place] [address] [place] AST [Catalytic activity/Vol] Normal [facility] Comment on above: Order Comment: Speci men Type: BLOOD SPECIMENOrdering Facility: [facility] Address: [address] [place] [address] Result Comment: Unab le to assay. Specimen significantly hemolyzed. Performed By: #### 2 4323-8 ####[facility]ENTERNCLIA [id number] [place] [address] [place] Bilirubin [Mass/Vol] 0.3 mg/dL Normal 0.2-1.3 [facility] Comment on above: Order Comment: Speci men Type: BLOOD SPECIMENOrdering Facility: [facility] Address: [address] [place] [address] Performed By: #### 2 4323-8 ####[facility]ITALWNCLIA [id number] [place] [address] [place] Calcium [Mass/Vol] 10.4 mg/dL High 8.5-10.2 [facility] Comment on above: Order Comment: Speci men Type: BLOOD SPECIMENOrdering Facility: [facility] Address: [address] [place] [address] Performed By: #### 2 4323-8 ####[facility]ENTERNCLIA [id number] [place] [address] [place] Chloride [Moles/Vol] 99 mmol/L Normal 98-107 [facility] Comment on above: Order Comment: Speci men Type: BLOOD SPECIMENOrdering Facility: [facility] Address: [address] [place] [address] Performed By: #### 2 4323-8 ####[facility]ENTERNCLIA [id number] [place] [address] [place] CO2 [Moles/Vol] 30 mmol/L Normal 22-30 [facility] Comment on above: Order Comment: Speci men Type: BLOOD SPECIMENOrdering Facility: [facility] Address: [address] [place] [address] Performed By: #### 2 4323-8 ####[facility]ALTHCARELIA [id number] [place] [address] [place] Creatinine [Mass/Vol] 1.48 mg/dL High 0.58-0.96 [facility] Comment on above: Order Comment: Speci men Type: BLOOD SPECIMENOrdering Facility: [facility] Address: [address] [place] [address] Performed By: #### 2 4323-8 ####[facility]ENTERNCLIA [id number] [place] [address] [place] Creatinine and Glomerular filtration rate.predicted panel (S/P/Bld) 39 mL/min/1.73m??? Low >=60 [facility] Comment on above: Order Comment: Speci men Type: BLOOD SPECIMENOrdering Facility: [facility] Address: [address] [id number] Result Comment: Maru mated Glomerular Filtration Rate [...] actual GFR. Performed By: #### 2 4323-8 ####[facility] [id number] [place] [address] [place] Glucose [Mass/Vol] 118 mg/dL High 74-99 [facility] Comment on above: Order Comment: Speci men Type: BLOOD SPECIMENOrdering Facility: [facility] Address: [address] [place] [address] Result Comment: The [place] Diabetes Association (ADA) provides guidance for cutoff [...] Standards of Medical Care in Diabetes 2016, [place] [employer] Association. Diabetes Care. 2016.39(Suppl 1). Performed By: #### 2 4323-8 ####[facility] [id number] [place] [address] [place] Potassium [Moles/Vol] 4.3 mmol/L Normal 3.7-5.1 [facility] Comment on above: Order Comment: Speci men Type: BLOOD SPECIMENOrdering Facility: [facility] Address: [address] [place] [id number] Performed By: #### 2 4323-8 ####[facility] MILLWNCLIA [id number] [place] [address] [place] Protein [Mass/Vol] 8.0 g/dL Normal 6.3-8.0 [facility] Comment on above: Order Comment: Speci men Type: BLOOD SPECIMENOrdering Facility: [facility] Address: [address] [place] [address] Performed By: #### 2 4323-8 ####[facility]ENTERNCLIA [id number] [place] [address] [place] Sodium [Moles/Vol] 138 mmol/L Normal 136-144 [facility] Comment on above: Order Comment: Speci men Type: BLOOD SPECIMENOrdering Facility: [facility] Address: [address] [place] [address] Performed By: #### 2 4323-8 ####[facility]ALTHCAREL[facility] [id number] [place] [address] [place] Urea nitrogen [Mass/Vol] 26 mg/dL High 7-21 [facility] Comment on above: Order Comment: Speci men Type: BLOOD SPECIMENOrdering Facility: [facility] Address: [address] [place] [address] Performed By: #### 2 4323-8 ####[facility]ENTERNCLIA [id number] [place] [address] [place] Lipid 1996 panelon 5 Cholesterol [Mass/Vol] 261 mg/dL High <[address] [facility] Comment on above: Order Comment: Speci men Type: BLOOD SPECIMENOrdering Facility: [facility] Address: [address] [place] [address] Result Comment: <200 mg/dL, Desirable 200-239 mg/dL, Borderline high>239 mg/dL, High Performed By: #### 3 016-3 ####[facility] LABCLIA [id number] [place] [address] [place]#### 53309-4 ####[facility] LABCLIA [id number] [address] [id number] [place] [address] [place] Cholesterol in HDL [Mass/Vol] 52 mg/dL Normal >39 [facility] Comment on above: Order Comment: Speci men Type: BLOOD SPECIMENOrdering Facility: [facility] Address: [address] [place] [address] Result Comment: 40-5 9 mg/dL, Acceptable>59 mg/dL, High: Negative risk factor for coronary heart disease<40 mg/dL, Low: Positive risk factor for coronary heart disease Performed By: #### 3 016-3 ####[facility] LABCLIA [id number] [place] [address] [place]#### 04301-6 ####[facility] LABCLIA [id number] [address] [id number] [place] [address] [place] Cholesterol in LDL [Mass/Vol] 189 mg/dL High <100 [facility] Comment on above: Order Comment: Speci men Type: BLOOD SPECIMENOrdering Facility: [facility] Address: [address] [place] [address] Result Comment: <100 mg/dL, Optimal 100-129 mg/dL, Near optimal/above optimal 130-159 mg/dL, Borderline high 160-189 mg/dL, High>189 mg/dL, Very highSecondary prevention optimal LDL Cholesterol levels are recommended to be < 70 mg/dL Performed By: #### 3 016-3 ####[facility] LABCLIA [id number] [address] [place]#### 67494-8 ####[facility] LABCLIA [id number] [address] [id number] [place] [address] [place] Cholesterol in LDL/Cholesterol in HDL [Mass ratio] 3.63 {ratio} High <2.54 [facility] Comment on above: Order Comment: Speci men Type: BLOOD SPECIMENOrdering Facility: [facility] Address: [address] [place] [address] Result Comment: Refe cooper:1. National Cholesterol Education Program ATP III Guideline At-A-Glance Quick Desk Reference: National Heart, Lung, and Blood [place]. National Institutes of Health. 2001: NIH Publication No. 01-3305.2. An International Atherosclerosis Society position paper: global recommendations for the management of dyslipidemia: executive summary, Atherosclerosis. 2014: 232(2):410-413. Performed By: #### 3 016-3 ####[facility] LABCLIA [id number] [place] [address] [place]#### 76482-0 ####[facility] LABCLIA [id number] [address] [id number] [place] [address] [place] Cholesterol in VLDL [Mass/Vol] 20 mg/dL Normal <30 [facility] Comment on above: Order Comment: Speci men Type: BLOOD SPECIMENOrdering Facility: [facility] Address: [address] [place] [address] Performed By: #### 3 016-3 ####[facility] LABCLIA [id number] [place] [address] [place]#### 36792-4 ####[facility] LABCLIA [id number] [address] STATES OF [facility] [id number] [place] [address] [place] Cholesterol non HDL [Mass/Vol] 209 mg/dL High <130 [facility] Comment on above: Order Comment: Speci men Type: BLOOD SPECIMENOrdering Facility: [facility] Address: [address] [place] [address] Result Comment: <130 mg/dL, Optimal 130-159 mg/dL, Near optimal/above optimal 160-189 mg/dL, Borderline high 190-219 mg/dL, High>219 mg/dL, Very highSecondary prevention optimal non HDL Cholesterol levels are recommended to be <100 mg/dL Performed By: #### 3 016-3 ####[facility] LABCLIA [id number] [place] [address] [place]#### 96412-4 ####[facility] LABCLIA [id number] [address] STATES [facility] [id number] [place] [address] [place] Cholesterol.total/Choles terol in HDL [Mass ratio] 5.02 {ratio} Normal <5.10 [facility] Comment on above: Order Comment: Speci men Type: BLOOD SPECIMENOrdering Facility: [facility] Address: [address] [place] [address] Performed By: #### 3 016-3 ####[facility] LABCLIA [id number] [place] [address] [place]#### 99330-1 ####[facility] LABCLIA [id number] [address] STATES OF [facility] [id number] [place] [address] [place] FASTING TIME 12 hrs Normal [facility] Comment on above: Order Comment: Speci men Type: BLOOD SPECIMENOrdering Facility: [facility] Address: [address] [place] [address] Performed By: #### 3 016-3 ####[facility] LABCLIA [id number] [place] [address] [place]#### 63414-8 ####[facility] LABCLIA [id number] [address] STATES OF [facility] [id number] [place] [address] [place] Triglyceride [Mass/Vol] 99 mg/dL Normal <150 [facility] Comment on above: Order Comment: Speci men Type: BLOOD SPECIMENOrdering Facility: [facility] Address: [address] [place] [address] Result Comment: <150 mg/dL, Normal 150-199 mg/dL, Borderline high 200-499 mg/dL, High>499 mg/dL, Very high Performed By: #### 3 016-3 ####[facility] LABCLIA [id number] [place] [address] [place]#### 26455-9 ####[facility] LABCLIA [id number] [address] STATES [facility] [id number] [place] [address] [place] TSH SerPl-aCncon 07-26-2024 TSH Qn 20.000 m[IU]/L High 0.270-4.200 [facility] Comment on above: Order Comment: Speci men Type: BLOOD SPECIMENOrdering Facility: [facility] Address: [address] [place] [address] Performed By: #### 3 016-3 ####[facility] LABCLIA [id number] [address] [address] [place]#### 76522-8 ####[facility] LABCLIA [id number] [address] [address] [place] [facility] [id number] [address] OF [place] CNDSon 07-10-2024 CNDS HNO ID: [id number] Author: DARBY PETERSON MD Service: Hospital Medicine [...] July 10, 2024 TIME: 12:41 PM Normal [facility] CBC panel Auto (Bld)on 07-09 Erythrocyte distribution width (RBC) [Ratio] 13.2 % Normal 11.5-15.0 [facility] Comment on above: Order Comment: Speci men Type: BLOOD SPECIMEN [facility]: [facility] Address: [address] [place], [place] [address] [address] Performed By: #### 5 8410-2 #### [facility] CLIA [id number] [address] [place] [address] [place] Hematocrit (Bld) [Volume fraction] 53.5 % High 36.0-46.0 [facility] Comment on above: Order Comment: Speci men Type: BLOOD SPECIMEN [facility]ing [facility]: [facility] Address: [address] [place] [address] Performed By: #### 5 8410-2 #### [facility] CLIA [id number] [address] [place] [address] [place] Hemoglobin (Bld) [Mass/Vol] 18.1 g/dL High 11.5-15.5 [facility] Comment on above: Order Comment: Speci men Type: BLOOD SPECIMEN [facility]ing [facility]: [facility] Address: [address] [place] [address] Performed By: #### 5 8410-2 #### [facility] CLIA [id number] [address] [place] [address] [place] MCH (RBC) [Entitic mass] 31.4 pg Normal 26.0-34.0 [facility] Comment on above: Order Comment: Speci men Type: BLOOD SPECIMEN [facility]ing [facility]: [facility] Address: [address] [place] [address] Performed By: #### 5 8410-2 #### [facility] CLIA [id number] [address] [place] [address] [place] MCHC (RBC) [Mass/Vol] 33.8 g/dL Normal 30.5-36.0 [facility] Comment on above: Order Comment: Speci men Type: BLOOD SPECIMEN [facility] Address: [address] [place] [address] Performed By: #### 5 8410-2 #### [facility] CLIA [id number] [address] [place] [address] [place] MCV (RBC) [Entitic vol] 92.7 fL Normal 80.0-100.0 [facility] Comment on above: Order Comment: Speci men Type: BLOOD SPECIMEN Order[facility]: [facility] Address: [address] [phone] Performed By: #### 5 8410-2 #### [facility] CLIA [id number] [address] [place] [address] [place] Nucleated RBC (Bld) [#/Vol] 10*3/uL Normal <0.01 [facility] Comment on above: Order Comment: Speci men Type: BLOOD SPECIMEN [facility]ing [facility]: [facility] Address: [address] [place] [address] Performed By: #### 5 8410-2 #### [facility] CLIA [id number] [address] [place] [address] [place] Platelet mean volume (Bld) [Entitic vol] 9.1 fL Normal 9.0-12.7 [facility] Comment on above: Order Comment: Speci men Type: BLOOD SPECIMEN [facility]ing [facility]: [facility] Address: [address] [place] [address] Performed By: #### 5 8410-2 #### [facility] CLIA [id number] [address] [place] [address] [place] Platelets (Bld) [#/Vol] 307 10*3/uL Normal 150-400 [facility] Comment on above: Order Comment: Speci men Type: BLOOD SPECIMEN [facility]ing [facility]: [facility] Address: [address] [place] [address] Performed By: #### 5 8410-2 #### [facility] CLIA [id number] [address] [place] [address] [place] RBC (Bld) [#/Vol] 5.77 10*6/uL High 3.90-5.20 [facility] Comment on above: Order Comment: Speci men Type: BLOOD SPECIMEN [facility]ing [facility]: [facility] Address: [address] [place] [address] Performed By: #### 5 8410-2 #### [facility] CLIA [id number] [address] [place] [address] [place] WBC (Bld) [#/Vol] 11.43 10*3/uL High 3.70-11.00 [facility] Comment on above: Order Comment: Speci men Type: BLOOD SPECIMEN [facility]ing [facility]: [facility] Address: [address] [place] [address] Performed By: #### 5 8410-2 #### [facility] CLIA [id number] [address] [place] [address] Calcium.ionized [Moles/Vol]o n 07-09-2024 Calcium.ionized (Bld) [Mass/Vol] 1.17 mmol/L Normal 1.08-1.30 [facility] Comment on above: Order Comment: Speci men Type: BLOOD SPECIMEN [facility]ing [facility]: [facility] Address: [address] [place] [address] Performed By: #### 1 995-0 #### [facility] CLIA [id number] [address] [place] [address] Calcium.ionized adjusted to pH 7.4 (Bld) [Moles/Vol] 1.11 mmol/L Normal 1.08-1.30 [facility] Comment on above: Order Comment: Speci men Type: BLOOD SPECIMEN [facility]ing Facility: [facility] Address: [address] [place] [address] Performed By: #### 1 995-0 #### [facility] CLIA [id number] [address] [place] [address] [facility] Comprehensive metabolic 2000 panelon 07-09-2024 Albumin [Mass/Vol] 3.3 g/dL Normal 3.2-5.0 [facility] Comment on above: Order Comment: Speci men Type: BLOOD SPECIMEN [facility]ing Facility: [facility] Address: [address] [place] [address] Performed By: #### 3 3762-6, 27391-8, 3024-7, 3016-3, 2777-1, 14136-0 #### [facility] CLIA [id number] [address] [place] [address] [place] ALP [Catalytic activity/Vol] 88 U/L Normal 45-117 [facility] Comment on above: Order Comment: Speci men Type: BLOOD SPECIMEN [facility]ing Facility: [facility] Address: [address] [place] [address] Performed By: #### 3 3762-6, 45189-1, 3024-7, 3016-3, 2777-1, 68119-0 #### [facility] CLIA [id number] [address] [place] [address] [place] ALT [Catalytic activity/Vol] 10 U/L Low 13-61 [facility] Comment on above: Order Comment: Speci men Type: BLOOD SPECIMEN [facility]ing [facility]: [facility] Address: [address] [place] [address] Result Comment: Resu lts may be falsely depressed after the administration of Sulfasalazine and/or Sulfapyridine. Performed By: #### 3 3762-6, 78604-5, 4-7, 3016-3, 2777-1, 74007-1 #### [facility] CLIA [id number] [address] [place] [address] [place] Anion gap [Moles/Vol] 4 mmol/L Low 5-16 [facility] Comment on above: Order Comment: Cobyi cassius Type: BLOOD SPECIMEN Ordering Facility: [facility] Address: [address] [place] [address] Performed By: #### 3 3762-6, 42480-1, 3024-7, 3016-3, 2777-1, 21889-9 #### [facility] CLIA [id number] [address] [place] [address] [place] AST [Catalytic activity/Vol] 15 U/L Normal 8-34 [facility] Comment on above: Order Comment: Cobyi men Type: BLOOD SPECIMEN [facility] [facility] Address: [address] [place] [address] Result Comment: Resu lts may be falsely depressed after the administration of Sulfasalazine and/or Sulfapyridine. Performed By: #### 3 3762-6, 35630-8, 3024-7, 3016-3, 2777-1, 10486-6 #### [facility] CLIA [id number] [address] [place], [place] [address] [place] Bilirubin [Mass/Vol] 0.6 mg/dL Normal 0.2-1.0 [facility] Comment on above: Order Comment: Speci men Type: BLOOD SPECIMEN Ordering Facility: [facility] Address: [address] [place] [address] Performed By: #### 3 3762-6, 69256-5, 3024-7, 3016-3, 2777-1, 66953-4 #### [facility] CLIA [id number] [address] [place], [place] [address] [place] Calcium [Mass/Vol] 10.0 mg/dL Normal 8.5-10.5 [facility] Comment on above: Order Comment: Speci men Type: BLOOD SPECIMEN Ordering Facility: [facility] Address: [address] [place] [address] Performed By: #### 3 3762-6, 98765-1, 3024-7, 3016-3, 2777-1, 62529-3 #### [facility] CLIA [id number] [address] [place] [address] [place] Chloride [Moles/Vol] 102 mmol/L Normal 98-107 [facility] Comment on above: Order Comment: Speci men Type: BLOOD SPECIMEN Ordering Facility: [facility] Address: [address] [place], [place] [address] Performed By: #### 3 3762-6, 60438-7, 3024-7, 3016-3, 2777-1, 94548-6 #### [facility] CLIA [id number] [address] [place], [place] [address] [place] CO2 [Moles/Vol] 30 mmol/L Normal 21-32 [facility] Comment on above: Order Comment: Speci men Type: BLOOD SPECIMEN Ordering Facility: [facility] Address: [address] [place] [address] Performed By: #### 3 3762-6, 15822-8, 3024-7, 3016-3, 2777-1, 20783-3 #### [facility] CLIA [id number] [address] [place], [place] [address] [place] Creatinine [Mass/Vol] 1.20 mg/dL High 0.51-0.95 [facility] Comment on above: Order Comment: Speci cassius Type: BLOOD SPECIMEN Ordering Facility: [facility] Address: [address] [place] [address] Result Comment: Misa ents receiving either N-Acetylcysteine (NAC) or Metamizole prior to venipuncture, may have falsely depressed results. Performed By: #### 3 3762-6, 71604-9, 3024-7, 3016-3, 2777-1, 91055-5 #### [facility] CLIA [id number] [address] [place] [address] STATES [facility] Creatinine and Glomerular filtration rate.predicted panel (S/P/Bld) 50 mL/min/1.73m??? Low >=60 [facility] Comment on above: Order Comment: Marika hammonds Type: BLOOD SPECIMEN Ordering Facility: [facility] Address: [address] [place] [address] Result Comment: Maru mated Glomerular Filtration Rate [...] actual GFR. Performed By: #### 3 3762-6, 87760-6, 3024-7, 3016-3, 2777-1, 73002-8 #### [facility] CLIA [id number] [address] [place], [place] [address] [place] Glucose [Mass/Vol] 121 mg/dL High 70-100 [facility] Comment on above: Order Comment: Marika hammonds Type: BLOOD SPECIMEN Ordering Facility: [facility] Address: [address] [place], [place] [address] Result Comment: The [place] Diabetes Association (ADA) provides guidance for cutoff [...] Standards of Medical Care in Diabetes 2016, [place] [employer] Association. Diabetes Care. 2016.39(Suppl 1). Results may be falsely elevated after the administration of Sulfapyridine. Results may be falsely depressed after the administration of Sulfasalazine. Performed By: #### 3 3762-6, 71862-3, 3024-7, 3016-3, 2777-1, 96258-0 #### [facility] CLIA [id number] [address] [place], [place] [address] [place] Potassium [Moles/Vol] 3.9 mmol/L Normal 3.5-5.1 [facility] Comment on above: Order Comment: Marika hammonds Type: BLOOD SPECIMEN Ordering Facility: [facility] Address: [address] [place], [place] [address] Performed By: #### 3 3762-6, 04330-8, 3024-7, 3016-3, 2777-1, 80398-1 #### [facility] CLIA [id number] [address] [place], [place] [address] [place] Protein [Mass/Vol] 7.1 g/dL Normal 6.0-8.5 [facility] Comment on above: Order Comment: Marika hammonds Type: BLOOD SPECIMEN Ordering Facility: [facility] Address: [address] [place] [address] Performed By: #### 3 3762-6, 20108-7, 4-7, 3016-3, 2777-1, 26795-0 #### [facility] CLIA [id number] [address] [place] [address] [place] Sodium [Moles/Vol] 136 mmol/L Normal 136-145 [facility] Comment on above: Order Comment: Speci men Type: BLOOD SPECIMEN Ordering Facility: [facility] Address: [address] [place], [place] [address] Performed By: #### 3 3762-6, 87209-9, 3024-7, 3016-3, 2777-1, 90152-4 #### [facility] CLIA [id number] [address] [place], [place] [address] [place] Urea nitrogen [Mass/Vol] 13 mg/dL Normal 01-26 [facility] Comment on above: Order Comment: Speci men Type: BLOOD SPECIMEN Ordering Facility: [facility] Address: [address] [place], [place] [address] Performed By: #### 3 3762-6, 28729-0, 3024-7, 3016-3, 2777-1, 92640-8 #### [facility] CLIA [id number] [address] [place], [place] [address] [place] ECHOon 07-09-2024 Echocardiography Echocardiography Report: Transthoracic Echo [facility] Date of service: 07/09/2024 10:17:39 AM Ordering physician: FIDENCIO ADORNO Indication: Initial evaluation of Heart Failure Technologist: Conrad Serrano [facility] Interpreting physician: Kain Davis MD PATIENT: Name: [...] deceleration time is 263 msec. TRICUSPID VALVE [place] tricuspid valve. There is no tricuspid stenosis. [...] * * Final * * * [employer] : [id number]. [id number] [facility] HbA1c (Bld)on 07-09-2024 Average glucose Estimated from glycated hemoglobin (Bld) [Mass/Vol] 128 mg/dL [facility] Comment on above: Order Comment: Speci men Type: BLOOD SPECIMEN Ordering Facility: [facility] Address: [address] [place] [address] Result Comment: eAG: (Estimated average glucose) is a calculated value from HgbA1c and is sales representative adding machines of the average blood glucose level in the last 2-3 month period. Performed By: #### 5 8410-2 #### [facility] CLIA [id number] [address] [place] [address] [place] HbA1c (Bld) [Mass fraction] 6.1 % High 4.3-5.6 [facility] Comment on above: Order Comment: Marika hammonds Type: BLOOD SPECIMEN Ordering Facility: [facility] Address: [address] [place], [place] [address] Result Comment: [place] Diabetes Association guidelines indicate that patients with HgbA1c in the range 5.7-6.4% are at increased risk for development of diabetes, and intervention by lifestyle modification may be beneficial. HgbA1c greater or equal to 6.5% is considered diagnostic of diabetes. Performed By: #### 5 8410-2 #### [facility] CLIA [id number] [address] [place] [address] [place] Lactate (Bld) [Moles/Vol]on 07-09-2024 Lactate [Moles/Vol] 2.1 mmol/L High 0.4-2.0 [facility] Comment on above: Order Comment: Marika hammonds Type: BLOOD SPECIMENOrdering Facility: [facility] Address: [address] [place] [address] Performed By: #### 9 5941-1 #### [facility] CLIA [id number] [address] [place], [place] [address] [place] Magnesium SerPl-mCncon 07-09 Magnesium [Mass/Vol] 1.8 mg/dL Normal 1.6-2.6 [facility] Comment on above: Order Comment: Marika hammonds Type: BLOOD SPECIMEN Ordering Facility: [facility] Address: [address] [place] [address] Performed By: #### 3 3762-6, 89585-1, 3024-7, 3016-3, 2777-1, 10486-4 #### [facility] CLIA [id number] [address] [place] [address] [place] NT-proBNP SerPl-mCncon 07-09 Natriuretic peptide.B prohormone N-Terminal [Mass/Vol] 3229 pg/mL High <125 [facility] Comment on above: Order Comment: Marika hammonds Type: BLOOD SPECIMEN Ordering Facility: [facility] Address: [address] [place] [address] Result Comment: NT-p roBNP results of less than 300 pg/mL likely rules out acute congestive heart failure with 99% predictive value. NOTE: These cutoff points are suggested for ACUTE CHF DIAGNOSIS only Less than 50 years\X09\ Greater than 450 pg/mL 50 - 75 years\X09\\X09\ Greater than 900 pg/mL Greater than 75 years\X09\ Greater than 1800 pg/mL Performed By: #### 3 3762-6, 08226-7, 3024-7, 3016-3, 2777-1, 31319-6 #### [facility] CLIA [id number] [address] [place] [address] [facility] PT panel Coag (PPP)on 2024 INR Coag (PPP) [Relative time] 1.0 {INR} Normal 0.9-1.3 [facility] Comment on above: Order Comment: Speci men Type: BLOOD SPECIMEN Ordering Facility: [facility] Address: [address] [place] [address] Result Comment: Tisha min K Antagonist (VKA) Therapeutic Range: INR 2 to 3 (Target INR of 2.5) Note: For patients treated with VKA drugs, such as warfarin, the [place] [employer] 2012 Guideline recommends [...] Chest 2012, 141:7S-47S Conrad RA et al. [facility] 2017, 70: 252-289 Performed By: #### 3 4528-0, 85750-7 #### [facility] CLIA [id number] [address] [place], [place] [address] [place] PT Coag (PPP) [Time] 10.9 s Normal 9.7-13.0 [facility] Comment on above: Order Comment: Marika hammonds Type: BLOOD SPECIMEN Ordering Facility: [facility] Address: [address] [place] [address] Performed By: #### 3 4528-0, 55234-2 #### [facility] CLIA [id number] [address] [place] [address] [place] Phosphate SerPl-mCncon 07-09 Phosphate [Mass/Vol] 3.6 mg/dL Normal 2.5-4.9 [facility] Comment on above: Order Comment: Marika hammonds Type: BLOOD SPECIMENOrdering Facility: [facility] Address: [address] [place] [address] Result Comment: Elev ated m-protein (paraprotein) levels in the serum may be exhibited in patients with monoclonal gammopathies, causing falsely elevated inorganic phosphorus results. Performed By: #### 9 5941-1 #### [facility] CLIA [id number] [address] [place] [address] [place] Procalcitonin SerPl-mCncon 0 07-09-2024 Procalcitonin [Mass/Vol] 0.07 ng/mL Normal 0.00-0.50 [facility] Comment on above: Order Comment: Marika hammonds Type: BLOOD SPECIMENOrdering Facility: [facility] Address: [address] [place] [address] Result Comment: PCT Concentration Interpretation PCT <=0.1 [...] [facility] CLIA [id number] [address] [place] [address] [place] STAPHYLOCOCCUS AUREUS AND MR SA SCREEN, PCR, NASALon 07-09-2024 S. aureus and MRSA panel CELIA+probe (Nose) Not detected Normal Not Detected [facility] Comment on above: Order Comment: Speci men Type: SWABOrdering Facility: [facility] Address: [address] [place] [address] Performed By: #### 9 5941-1 #### [facility] CLIA [id number] [address] [place] [address] [place] T4 Free SerPl-mCncon 025 Free T4 [Mass/Vol] 1.0 ng/dL Normal 0.8-1.5 [facility] Comment on above: Order Comment: Speci men Type: BLOOD SPECIMEN Ordering Facility: [facility] Address: [address] [place] [address] Performed By: #### 3 3762-6, 56661-3, 3024-7, 3016-3, 2777-1, 04125-9 #### [facility] CLIA [id number] [address] [place] [address] [place] TOXICOLOGY SCREEN, ROUTINE U RINEon 07-09-2024 Amphetamines Confirm (U) [Mass/Vol] Positive Abnormal Negative [facility] Comment on above: Order Comment: Speci men Type: URINE SPECIMENOrdering Facility: [facility] Address: [address] [place] [address] Result Comment: Cuto ff threshold at 1000 ng/mL. Performed By: #### 9 5941-1 #### [facility] CLIA [id number] [address] [place] [address] [place] BARBITURATES, URINE Negative Normal Negative [facility] Comment on above: Order Comment: Speci men Type: URINE SPECIMENOrdering Facility: [facility] Address: [address] [place] [address] Result Comment: Cuto ff threshold at 200 ng/mL. Performed By: #### 9 5941-1 #### [facility] CLIA [id number] [address] [place] [address] [place] BENZODIAZEPINES, UR Negative Normal Negative [facility] Comment on above: Order Comment: Speci men Type: URINE SPECIMENOrdering Facility: [facility] Address: [address] [place] [address] Result Comment: Cuto ff threshold at 200 ng/mL. Performed By: #### 9 5941-1 #### [facility] CLIA [id number] [address] [place] [address] [place] Cannabinoids Screen Ql (U) Positive Abnormal Negative [facility] Comment on above: Order Comment: Speci men Type: URINE SPECIMENOrdering Facility: [facility] Address: [address] [place] [address] Result Comment: Cuto ff threshold at 50 ng/mL. Performed By: #### 9 5941-1 #### [facility] CLIA [id number] [address] [place] [address] [place] Cocaine Ql (U) Negative Normal Negative [facility] Comment on above: Order Comment: Speci men Type: URINE SPECIMENOrdering Facility: [facility] Address: [address] [place] [address] Result Comment: Cuto ff threshold at 300 ng/mL. Performed By: #### 9 5941-1 #### [facility] CLIA [id number] [address] [place] [address] [place] Opiates Screen Ql (U) Positive Abnormal Negative [facility] Comment on above: Order Comment: Speci men Type: URINE SPECIMENOrdering Facility: [facility] Address: [address] [place] [address] Result Comment: Cuto ff threshold at 300 ng/mL. Performed By: #### 9 5941-1 #### [facility] CLIA [id number] [address] [place] [address] [place] Phencyclidine Ql (U) Negative Normal Negative [facility] Comment on above: Order Comment: Speci men Type: URINE SPECIMENOrdering Facility: [facility] Address: [address] [place] [address] Result Comment: Cuto ff threshold at 25 ng/mL. Performed By: #### 9 5941-1 #### [facility] CLIA [id number] [address] [place] [address] TSH SerPl-aCncon 07-09-2024 TSH Qn 17.613 m[IU]/L High 0.358-3.740 [facility] Comment on above: Order Comment: Speci men Type: BLOOD SPECIMENOrdering Facility: [facility] Address: [address] [place] [address] Result Comment: 3rd generation ultra sensitive TSH. Performed By: #### 9 5941-1 #### [facility] CLIA [id number] [address] [place] [address] Urinalysis complete panel (U )on 07-09-2024 Bacteria LM.HPF (Urine sed) [#/Area] None Seen Normal None Seen [facility] Comment on above: Order Comment: Speci men Type: URINE SPECIMENOrdering Facility: [facility] Address: [address] [place] [address] Performed By: #### 9 5941-1 #### [facility] CLIA [id number] [address] [place] [address] Bilirubin Ql (U) Negative Normal Negative [facility] Comment on above: Order Comment: Speci men Type: URINE SPECIMENOrdering Facility: [facility] Address: [address] [place] [address] Performed By: #### 9 5941-1 #### [facility] CLIA [id number] [address] [place] [address] Clarity (Unsp spec) Clear Normal Clear [facility] Comment on above: Order Comment: Speci men Type: URINE SPECIMENOrdering Facility: [facility] Address: [address] [place] [address] Performed By: #### 9 5941-1 #### [facility] CLIA [id number] [address] [place] [address] Color (U) Yellow Normal Yellow [facility] Comment on above: Order Comment: Speci men Type: URINE SPECIMENOrdering Facility: [facility] Address: [address] [place] [address] Performed By: #### 9 5941-1 #### [facility] CLIA [id number] [address] [place] [address] [place] Epithelial cells LM.HPF (Urine sed) [#/Area] Few Normal [facility] Comment on above: Order Comment: Speci men Type: URINE SPECIMENOrdering Facility: [facility] Address: [address] [place] [address] Performed By: #### 9 5941-1 #### [facility] CLIA [id number] [address] [place] [address] OF [place] Glucose Test strip (U) [Mass/Vol] 1+ Abnormal Negative [facility] Comment on above: Order Comment: Speci men Type: URINE SPECIMENOrdering Facility: [facility] Address: [address] [place] [address] Performed By: #### 9 5941-1 #### [facility] CLIA [id number] [address] [place] [address] [place] Hemoglobin Ql (U) 1+ Abnormal Negative [facility] Comment on above: Order Comment: Speci men Type: URINE SPECIMENOrdering Facility: [facility] Address: [address] [place] [address] Performed By: #### 9 5941-1 #### [facility] CLIA [id number] [address] [place] [address] [place] Ketones Ql (U) Negative Normal Negative [facility] Comment on above: Order Comment: Speci men Type: URINE SPECIMENOrdering Facility: [facility] Address: [address] [place] [address] Performed By: #### 9 5941-1 #### [facility] CLIA [id number] [address] [place] [address] [place] Leukocyte esterase Test strip Ql (U) Negative Normal Negative [facility] Comment on above: Order Comment: Speci men Type: URINE SPECIMENOrdering Facility: [facility] Address: [address] [place] [address] Performed By: #### 9 5941-1 #### [facility] CLIA [id number] [address] [place] [address] [place] Nitrite Ql (U) Negative Normal Negative [facility] Comment on above: Order Comment: Speci men Type: URINE SPECIMENOrdering Facility: [facility] Address: [address] [place] [address] Performed By: #### 9 5941-1 #### [facility] CLIA [id number] [address] [place] [address] [place] pH (U) 6.0 [pH] Normal 5.0-8.0 [facility] Comment on above: Order Comment: Speci men Type: URINE SPECIMENOrdering Facility: [facility] Address: [address] [place] [address] Performed By: #### 9 5941-1 #### [facility] CLIA [id number] [address] [place] [address] [place] Protein (U) [Mass/Vol] 2+ Abnormal Negative [facility] Comment on above: Order Comment: Speci men Type: URINE SPECIMENOrdering Facility: [facility] Address: [address] [place] [address] Performed By: #### 9 5941-1 #### [facility] CLIA [id number] [address] [place] [address] [place] RBC LM.HPF (Urine sed) [#/Area] 3-5 /HPF Abnormal 0-3 /HPF [facility] Comment on above: Order Comment: Speci men Type: URINE SPECIMENOrdering Facility: [facility] Address: [address] [place] [address] Performed By: #### 9 5941-1 #### [facility] CLIA [id number] [address] [place] [address] [place] Specific gravity (U) [Rel density] >1.030 High 1.005-1.030 [facility] Comment on above: Order Comment: Speci men Type: URINE SPECIMENOrdering Facility: [facility] Address: [address] [place] [address] Performed By: #### 9 5941-1 #### [facility] CLIA [id number] [address] [place] [address] Urobilinogen Ql (U) Negative Normal Negative [facility] Comment on above: Order Comment: Speci men Type: URINE SPECIMENOrdering Facility: [facility] Address: [address] [place] [address] Performed By: #### 9 5941-1 #### [facility] CLIA [id number] [address] [place] [address] [place] WBC LM.HPF (Urine sed) [#/Area] 0-5 /HPF Normal 0-5 /HPF [facility] Comment on above: Order Comment: Speci men Type: URINE SPECIMENOrdering Facility: [facility] Address: [address] [place] [address] Performed By: #### 9 5941-1 #### [facility] CLIA [id number] [address] [place] [place] [address] [place] XR CHEST 1V FRONTALon [...] osseous findings. IMPRESSION: No acute radiographic abnormality. Laboratory Tester: GARY Transcribe Date/Time: Jul 09 2024 7:35A Dictated by : AMY PAIGE MD This examination was interpreted and the report reviewed and electronically signed by: AMY PAIGE MD on Jul 09 2024 7:35AM EST [id number] CN Normal [facility] aPTT PPPon 07-09-2024 aPTT Coag (PPP) [Time] 29.8 s Normal 23.0-32.4 [facility] Comment on above: Order Comment: Speci men Type: BLOOD SPECIMEN Ordering Facility: [facility] Address: [address] [place] [address] Performed By: #### 3 [id number], [id number] #### [facility] CLIA [id number] [facility] ALLIED HEALTHon 07-08-2024 ALLIED HEALTH HNO ID: [id number] Author: KIESHA HUTTON RT(R) Service: Radiology Author [...] PATIENT PRESENTS WITH AN IMPLANTABLE OR ATTACHED MARINE ELECTRICIAN: No ALLERGIES: Reviewed and unchanged CONTRAST ALLERGY: [...] July 08, 2024 TIME: 6:10 PM Normal [facility] Basic metabolic 2000 panelon 07-08-2024 Anion gap [Moles/Vol] 12 mmol/L Normal 8-15 [facility] Comment on above: Order Comment: Cobyi cassius Type: BLOOD SPECIMENOrdering Facility: [facility] Address: [address] [place] [address] Performed By: #### 2 4321-2 ####[facility] LABCLIA [id number] [place] [address] [place] Calcium [Mass/Vol] 10.4 mg/dL High 8.5-10.2 [facility] Comment on above: Order Comment: Marika hammonds Type: BLOOD SPECIMENOrdering Facility: [facility] Address: [address] [place] [address] Performed By: #### 2 4321-2 ####[facility]ALK[facility] LABCLIA [id number] [place] [address] [place] Chloride [Moles/Vol] 96 mmol/L Low 98-107 [facility] Comment on above: Order Comment: Speci men Type: BLOOD SPECIMENOrdering Facility: [facility] Address: [address] [place] [address] Performed By: #### 2 4321-2 ####[facility] [place] LABCLIA [id number] [place] [address] [place] CO2 [Moles/Vol] 27 mmol/L Normal 22-30 [facility] Comment on above: Order Comment: Speci men Type: BLOOD SPECIMENOrdering Facility: [facility] Address: [address] [place] [address] Performed By: #### 2 4321-2 ####[facility] netTALK LABCLIA [id number] [place] [address] [place] Creatinine [Mass/Vol] 1.26 mg/dL High 0.58-0.96 [facility] Comment on above: Order Comment: Marika hammonds Type: BLOOD SPECIMENOrdering Facility: [facility] Address: [address] [place] [address] Performed By: #### 2 4321-2 ####[facility] LABCLIA [id number] [place] [id number] [facility] Creatinine and Glomerular filtration rate.predicted panel (S/P/Bld) 47 mL/min/1.73m??? Low >=60 [facility] Comment on above: Order Comment: Marika hammonds Type: BLOOD SPECIMENOrdering Facility: [facility] Address: [address] [place] [address] Result Comment: Maru mated Glomerular Filtration Rate [...] actual GFR. Performed By: #### 2 4321-2 ####[facility] [id number] [place] [address] [place] Glucose [Mass/Vol] 162 mg/dL High 74-99 [facility] Comment on above: Order Comment: Marika hammonds Type: BLOOD SPECIMENOrdering Facility: [facility] Address: [address] [place] [address] Result Comment: The [place] Diabetes Association (ADA) provides guidance for cutoff [...] Standards of Medical Care in Diabetes 2016, [place] [employer] Association. Diabetes Care. 2016.39(Suppl 1). Performed By: #### 2 4321-2 ####[facility] LABCLIA [id number] [place] [address] [place] Potassium [Moles/Vol] 4.6 mmol/L Normal 3.7-5.1 [facility] Comment on above: Order Comment: Marika hammonds Type: BLOOD SPECIMENOrdering Facility: [facility] Address: [address] [place] [address] Performed By: #### 2 4321-2 ####[facility]ALK[facility] LABCLIA [id number] [place] [address] [place] [facility] Sodium [Moles/Vol] 135 mmol/L Low 136-144 [facility] Comment on above: Order Comment: Marika hammonds Type: BLOOD SPECIMENOrdering Facility: [facility] Address: [address] [place] [address] Performed By: #### 2 4321-2 ####[facility] LABCLIA [id number] [place] [address] [place] Urea nitrogen [Mass/Vol] 16 mg/dL Normal 7-21 [facility] Comment on above: Order Comment: Marika hammonds Type: BLOOD SPECIMENOrdering Facility: [facility] Address: [address] [place] [address] Performed By: #### 2 4321-2 ####[facility] LABCLIA [id number] [place] [address] [place] CBC panel Auto (Bld)on 07-08 Erythrocyte distribution width (RBC) [Ratio] 13.1 % Normal 11.5-15.0 [facility] Comment on above: Order Comment: Speci men Type: BLOOD SPECIMENOrdering Facility: [facility] Address: [address] [place] [address] Performed By: #### 5 8410-2 ####[facility] [place] LABCLIA [id number] [place] [address] [facility] Hematocrit (Bld) [Volume fraction] 59.2 % High 36.0-46.0 [facility] Comment on above: Order Comment: Speci men Type: BLOOD SPECIMENOrdering Facility: [facility] Address: [address] [place] [address] Performed By: #### 5 8410-2 ####[facility] [id number] [place] [address] [facility] Hemoglobin (Bld) [Mass/Vol] 19.3 g/dL High 11.5-15.5 [facility] Comment on above: Order Comment: Speci men Type: BLOOD SPECIMENOrdering Facility: [facility] Address: [address] [place] [address] Performed By: #### 5 8410-2 ####[facility] [id number] [place] MCH (RBC) [Entitic mass] 30.8 pg Normal 26.0-34.0 [facility] Comment on above: Order Comment: Speci men Type: BLOOD SPECIMENOrdering Facility: [facility] Address: [address] [place] [address] Performed By: #### 5 8410-2 ####[facility] [place] LABCLIA [id number] [place] [address] [place] MCHC (RBC) [Mass/Vol] 32.6 g/dL Normal 30.5-36.0 [facility] Comment on above: Order Comment: Speci men Type: BLOOD SPECIMENOrdering Facility: [facility] Address: [address] [place] [address] Performed By: #### 5 8410-2 ####[facility] [place] LABCLIA [id number] [place] [address] [place] MCV (RBC) [Entitic vol] 94.4 fL Normal 80.0-100.[address] [facility] Comment on above: Order Comment: Speci men Type: BLOOD SPECIMENOrdering Facility: [facility] Address: [address] [place] [address] Performed By: #### 5 8410-2 ####[facility] [place] LABCLIA [id number] [place] [address] [place] Platelet mean volume (Bld) [Entitic vol] 9.4 fL Normal 9.0-12.7 [facility] Comment on above: Order Comment: Speci men Type: BLOOD SPECIMENOrdering Facility: [facility] Address: [address] [place] [address] Performed By: #### 5 8410-2 ####[facility] [place] LABCLIA [id number] [place] [address] [place] Platelets (Bld) [#/Vol] 291 10*3/uL Normal 150-400 [facility] Comment on above: Order Comment: Speci men Type: BLOOD SPECIMENOrdering Facility: [facility] Address: [address] [place] [address] Performed By: #### 5 8410-2 ####[facility] [place] LABCLIA [id number] [place] [address] [place] RBC (Bld) [#/Vol] 6.27 10*6/uL High 3.90-5.20 [facility] Comment on above: Order Comment: Speci men Type: BLOOD SPECIMENOrdering Facility: [facility] Address: [address] [place] [address] Performed By: #### 5 8410-2 ####[facility] [place] LABCLIA [id number] [place] [address] [place] WBC (Bld) [#/Vol] 13.94 10*3/uL High 3.70-11.00 [facility] Comment on above: Order Comment: Speci men Type: BLOOD SPECIMENOrdering Facility: [facility] Address: [address] [place] [address] Performed By: #### 5 8410-2 ####[facility] [id number] [place] [address] [place] [address] BRAIN WO IVCONon 07-08-19 CT BRAIN WO IVCON * * *Final Report* * * DATE OF EXAM: Jul 08 2024 6:11PM [facility] 0504 - CT BRAIN WO IVCON / [...] (DLP) for this visit = 1608.43 (accession [id number]), 1608.43 (accession [id number]), 706.22 (accession [id number]) mGy*cm. CT Dose Reduction Employed: No dose [...] appear t (more content not included)... Normal [facility] CTA HEAD W IVCONon CTA HEAD W IVCON * * *Final Report* * * DATE OF EXAM: Jul 08 2024 6:11PM [facility] 0022 - CTA HEAD W IVCON / [...] (DLP) for this visit = 1608.43 (accession [id number]), 1608.43 (accession [id number]), 706.22 (accession [id number]) mGy*cm. CT Dose Reduction Employed: No dose [...] appear th (more content not included)... Normal [facility] CTA NECK W IVCONon CTA NECK W IVCON * * *Final Report* * * DATE OF EXAM: Jul 08 2024 6:11PM [facility] 0024 - CTA NECK W IVCON / [...] (DLP) for this visit = 1608.43 (accession [id number]), 1608.43 (accession [id number]), 706.22 (accession [id number]) mGy*cm. CT Dose Reduction Employed: No dose [...] appear th (more content not included)... Normal [facility] ECG COMPLETEon 07-08-2024 ECG COMPLETE Ventricular Rate : 78 BPM Atrial Rate : 78 BPM P-R Interval : 306 ms QRS Duration : 104 ms Q-T Interval : 410 ms QTC Calculation(Bazett) : 467 ms Calculated P [place] : -48 degrees Calculated R [place] : -19 degrees Calculated T [place] : 17 degrees UNUSUAL P AXIS, POSSIBLE ECTOPIC ATRIAL RHYTHM MINIMAL VOLTAGE CRITERIA FOR LVH, MAY BE NORMAL VARIANT ( Jagjit product ) BORDERLINE J POINT ELEVATIONS IN ANETROSEPTAL LEADS, WITH T WAVE INVERSIONS ABNORMAL ECG NO PREVIOUS ECGS AVAILABLE CONSIDER SERIAL EKGS, AND CORRELATE WITH TROPONINS, CLINICAL HISTORY Confirmed by MD WEBER VINAYAK ([id number]) on 07/10/2024 9:15:17 AM NAME : MAUREEN HERZOG PID : [id number] : 1955 Gender : Female Race : Unknown ORD : [id number] Procedure Date : Jul 08 2024 16:55:42 [...] CLINICAL HISTORY Confirmed by MD WEBER VINAYAK ([id number]) on 07/10/2024 9:15:17 AM Test Reason : Chest Pain Location : 191 : [facility] ED Overread By : MD WEBER VINAYAK Edited By : MD WEBER VINAYAK Referred By : , Acquired by : SUKHI COLE [facility] ED NOTEon 07-08-2024 ED NOTE HNO ID: [id number] Author: LUCERO RAMSEY RN Service: Emergency Medicine Author Type: Registered Nurse Type: ED Notes Filed: 07/08/2024 22:31 Note Text: Patient requesting meds for pain to neck. Physician updated. [facility] ED NOTE HNO ID: [id number] Author: LUCERO RAMSEY RN Service: Emergency Medicine Author Type: Registered Nurse Type: ED Notes Filed: 07/08/2024 21:40 Note Text: Bed assignment [facility] icu-2 Dr conway [phone] [facility] 60-90mins [facility] ED NOTE HNO ID: [id number] Author: LUCERO RAMSEY RN Service: Emergency Medicine Author Type: Registered Nurse Type: ED Notes Filed: 07/08/2024 21:18 Note Text: Assumed care of patient. Patient awake and alert in bed. Continues to report pain to bilateral neck, unchanged from initial presentation. Updated with current POC. Monitor alarms microsoft application developer light in reach. [facility] ED NOTE HNO ID: [id number] Author: MERLE PENA, TESHA Service: Emergency Medicine Author Type: Registered Nurse Type: ED Notes Filed: 07/08/2024 21:03 Note Text: O2 sats dipping to 88-90% on r/a when sleeping. O2 2lpm via NC for support [facility] ED NOTE HNO ID: [id number] Author: LES KNOX, TESHA Service: ? Author Type: Registered Nurse Type: ED Notes Filed: 07/08/2024 19:58 Note Text: ICU doctor on line for to speak with Doctor Katie. [facility] ED NOTE HNO ID: [id number] Author: KRISS COLLINS RN Service: Nursing Author Type: Registered Nurse Type: ED Notes Filed: 07/08/2024 16:53 Note Text: EKG at bedside [facility] ED NOTE HNO ID: [id number] Author: KRISS COLLINS RN Service: Nursing Author Type: Registered Nurse Type: ED Notes Filed: 07/08/2024 16:15 Note Text: Has had neck pain radiating into her occiput x 2 days. She is unable to rotate her neck or extend or flex. She denies history of recent illness. She has had aneurysms in the past (2019) [facility] ED PROV NOTEon 07-08-2024 ED PROV NOTE HNO ID: [id number] Author: ALYSIA ELAM MD Service: Emergency Medicine [...] a history of aneurysm repairs done in [place] in 2019 it sounds like these are [...] is nervous/anxious. She is recently moved to [place] moved in with her sister states that she has been under a lot of stress with the break-up of her marriage that occurred in [place]. Physical Exam Vitals [07/08/24 1557] BP Pulse [...] maintain blood (more content not included)... Normal [facility] HIGH SENSITIVITY TROPONIN T (INITIAL)on 07-08-2024 Troponin T.cardiac High sensitivity method [Mass/Vol] 11 ng/L Normal <12 [facility] Comment on above: Order Comment: Speci men Type: BLOOD SPECIMENOrdering Facility: [facility] Address: [address] [place] [address] Performed By: #### L [id number] ####[facility] LABCLIA [id number] [place] [address] [place] HIGH SENSITIVITY TROPONIN T (SECOND)on 07-08-2024 Troponin T.cardiac High sensitivity method [Mass/Vol] 11 ng/L Normal <12 [facility] Comment on above: Order Comment: Speci men Type: BLOOD SPECIMENOrdering Facility: [facility] Address: [facility] [address] Performed By: #### L [id number] ####[facility] LABCLIA [id number] [place] [address] [facility] HISTORY PHYSICALon HISTORY PHYSICAL HNO ID: [id number] Author: FIDENCIO ADORNO APRN.CNP Service: Critical Care Author Type: Nurse Practitioner Type: H&P Filed: 07/09/2024 00:46 Note Text: [facility] PULMONARY AND CRITICAL CARE SERVICE DATE: July 08, 2024 SERVICE TIME: 12:30 AM HPI: This is a 68-year-old female with a past medical history significant for HTN, carotid endarterectomy, chronic internal carotid occlusion, previous cerebral aneurysm with repair who presents to [facility] ED today with complaints of 2 days [...] risk of cerebral ischemia. Transport initiated to [facility] ICU. On arrival to ICU patient is [...] with sister. She is just moved from [place]. Prior to that she was homeless after [...] pain, sync (more content not included)... Normal [facility] CNOVon 06-25-2024 CNOV Office Visit (SOFÍA) MAUREEN BARRON ([id number]) 1955 F Date Time Provider Department 06/25/24 [...] history and updated the Histories section of [facility]. She has a history of [...] normal, sep (more content not included)... Normal [facility] NCS and/or EMG Patienton NCS and/or EMG Patient [facility] Pulmonary Services/Neurology [address] [place] [address] MR#: [id number] Acct: [id number] Name: MAUREEN BARRON ALYSHA Rep #: [id number] : 1955 68 From: Hardeep Patrick MD Referring Dr: Jaziel Lin DO Status: REG C LI Location: [facility] Date: 06/13/24 Sex: F C [...] Multi Select Codes Neurology Neurology Interp Codes: 96287-65 Musc test done w/n test comp (interp) and 51208-85 Nrv cndj test 7- 8 studies (interp) 06/13/24 1311 Date Hardeep Patrick MD CC: Dr. Hardeep Patrick MD; Dr. Jaziel Lin, DO; No Primary Care Physician Date Dictated: 06/13/24 130 Date Transcribed: 06/13/241308 Laboratory Tester: AA Signed Normal [facility] Basic Metabolic Profile (BMP )on 03-12-2024 BUN/CRE 15.0 RATIO Normal 10-20 [facility] Comment on above: Performed By: #### L 500.2500, L100.0100 ####[facility] [address] [place], [address] CA,Total 8.9 mg/dL Normal 8.5-10.1 [facility] Comment on above: Performed By: #### L 500.2500, L100.0100 ####[facility] [address] [place], [address] Chloride [Moles/Vol] 104 mmol/L Normal 98-107 [facility] Comment on above: Performed By: #### L 500.2500, L100.0100 ####[facility] [address] [place], [address] CO2 [Moles/Vol] 27.0 mmol/L Normal 21.0-32.0 [facility] Comment on above: Performed By: #### L 500.2500, L100.0100 ####[facility] [address] [place], [address] Creatinine [Mass/Vol] 0.94 mg/dL Normal 0.55-1.02 [facility] Comment on above: Result Comment: The validity of the calculated GFR GFRAA in patients over 70 years has not been determined. Clinical correlation is essential. Performed By: #### L 500.2500, L100.0100 ####[facility] [address] [place], [address] ECRCL 47.55 ml/min Normal [facility] Comment on above: Performed By: #### L 500.2500, L100.0100 ####[facility] [address] [place], [address] EST GFR - AA 77 mL/min Normal >60 [facility] Comment on above: Result Comment: Afri can [place] GFR Calc Performed By: #### L 500.2500, L100.0100 ####[facility] [address] [place], [address] GAP 5 Normal 5-15 [facility] Comment on above: Performed By: #### L 500.2500, L100.0100 ####[facility] [address] [place], [address] GFR/1.73 sq M.predicted among non-blacks MDRD (S/P/Bld) [Vol rate/Area] 63 mL/min/{1.73_m2} Normal >60 [facility] Comment on above: Result Comment: Non- GFR Calc Performed By: #### L 500.2500, L100.0100 ####[facility] [address] [place], [address] Glucose [Mass/Vol] 115 mg/dL High 74-106 [facility] Comment on above: Result Comment: Fast ing Glucose result from 100 to 125 mg/dL suggests IMPAIRED HOMEOSTASIS per A.D.A. criteria. Performed By: #### L 500.2500, L100.0100 ####[facility] [address] [place], [address] Potassium [Moles/Vol] 3.6 mmol/L Normal 3.5-5.1 [facility] Comment on above: Performed By: #### L 500.2500, L100.0100 ####[facility] [address] [place], [address] Sodium [Moles/Vol] 136 mmol/L Normal 136-145 [facility] Comment on above: Performed By: #### L 500.2500, L100.0100 ####[facility] [address] [place], [address] Urea nitrogen [Mass/Vol] 14 mg/dL Normal 7-18 [facility] Comment on above: Performed By: #### L 500.2500, L100.0100 ####[facility] [address] [place], [address] CBC W/Diff, Automatedon 09-0 9-2023 Absolute Lymph 1.09 X10 3/uL Normal 0.83-4.51 [facility] Comment on above: Performed By: #### L 500.2500, L100.0100 ####[facility] [address] [place], [address] Absolute Neut 5.3 X10 3/uL Normal 2.0-7.7 [facility] Comment on above: Performed By: #### L 500.2500, L100.0100 ####[facility] [address] [place], [address] Basophils/100 WBC (Bld) 0.4 % Normal 0-1 [facility] Comment on above: Performed By: #### L 500.2500, L100.0100 ####[facility] [address] [place], [address] Eosinophils/100 WBC (Bld) 3.7 % Normal 0-5 [facility] Comment on above: Performed By: #### L 500.2500, L100.0100 ####[facility] [address] [place], [address] Erythrocyte distribution width (RBC) [Ratio] 13.2 % Normal 11.6-14.6 [facility] Comment on above: Performed By: #### L 500.2500, L100.0100 ####[facility] [address] [place], [address] Hematocrit (Bld) [Volume fraction] 45.2 % Normal 37-47 [facility] Comment on above: Performed By: #### L 500.2500, L100.0100 ####[facility] [address] [place], [address] Hemoglobin (Bld) [Mass/Vol] 15.2 g/dL High 12.0-15.0 [facility] Comment on above: Performed By: #### L 500.2500, L100.0100 ####[facility] [address] [place], [address] IG% 0.500 Normal 0.0-0.9 [facility] Comment on above: Result Comment: IG% - Immature Granulocytes (promyelocytes, myelocytes and metamyelocytes) > 1% indicates that a LEFT SHIFT is Present. Performed By: #### L 500.2500, L100.0100 ####[facility] [address] [place], [address] Lymphocytes/100 WBC (Bld) 14.1 % Low 19-41 [facility] Comment on above: Performed By: #### L 500.2500, L100.0100 ####[facility] [address] [place], [address] MCH (RBC) [Entitic mass] 32.0 pg Normal 27.0-32.0 [facility] Comment on above: Performed By: #### L 500.2500, L100.0100 ####[facility] [address] [place], [address] MCHC (RBC) [Mass/Vol] 33.6 g/dL Normal 32-36 [facility] Comment on above: Performed By: #### L 500.2500, L100.0100 ####[facility] [address] [place], [address] MCV (RBC) [Entitic vol] 95.2 fL Normal 81-99 [facility] Comment on above: Performed By: #### L 500.2500, L100.0100 ####[facility] [address] [place], [address] Monocytes/100 WBC (Bld) 12.7 % High 0-10 [facility] Comment on above: Performed By: #### L 500.2500, L100.0100 ####[facility] [address] [place], [address] Neutrophils/100 WBC (Bld) 68.6 % Normal 47-70 [facility] Comment on above: Performed By: #### L 500.2500, L100.0100 ####[facility] [address] [place], [address] Nucleated RBC (Bld) [#/Vol] 0 10*3/uL Normal 0-5 [facility] Comment on above: Performed By: #### L 500.2500, L100.0100 ####[facility] [address] [place], [address] Platelet mean volume (Bld) [Entitic vol] 9.2 fL Normal 6.2-12.0 [facility] Comment on above: Performed By: #### L 500.2500, L100.0100 ####[facility] [address] [place], [address] Platelets (Bld) [#/Vol] 272 10*3/uL Normal 150-450 [facility] Comment on above: Performed By: #### L 500.2500, L100.0100 ####[facility] [address] [place], [address] RBC (Bld) [#/Vol] 4.75 10*6/uL Normal 4.2-5.4 [facility] Comment on above: Performed By: #### L 500.2500, L100.0100 ####[facility] [address] [place], [address] RDW SD 46.5 fl High 35.1-43.9 [facility] Comment on above: Performed By: #### L 500.2500, L100.0100 ####[facility] [address] [place], [address] WBC (Bld) [#/Vol] 7.7 10*3/uL Normal 4.4-11.0 [facility] Comment on above: Performed By: #### L 500.2500, L100.0100 ####[facility] [address] [place], [address] Basic Metabolic Profile (BMP )on 03-10-2024 BUN/CRE 17.0 RATIO Normal 10-20 [facility] Comment on above: Performed By: #### L 500.2500, L100.0100 ####[facility] [address] [place], [address] CA,Total 8.9 mg/dL Normal 8.5-10.1 [facility] Comment on above: Performed By: #### L 500.2500, L100.0100 ####[facility] [address] [place], [address] Chloride [Moles/Vol] 104 mmol/L Normal 98-107 [facility] Comment on above: Performed By: #### L 500.2500, L100.0100 ####[facility] [address] [place], [address] CO2 [Moles/Vol] 23.0 mmol/L Normal 21.0-32.0 [facility] Comment on above: Performed By: #### L 500.2500, L100.0100 ####[facility] [address] [place], [address] Creatinine [Mass/Vol] 1.06 mg/dL High 0.55-1.02 [facility] Comment on above: Result Comment: The validity of the calculated GFR GFRAA in patients over 70 years has not been determined. Clinical correlation is essential. Performed By: #### L 500.2500, L100.0100 ####[facility] [address] [place], [address] ECRCL 41.12 ml/min Normal [facility] Comment on above: Performed By: #### L 500.2500, L100.0100 ####[facility] [address] [place], [address] EST GFR - AA 66 mL/min Normal >60 [facility] Comment on above: Result Comment: Afri can [place] GFR Calc Performed By: #### L 500.2500, L100.0100 ####[facility] [address] [place], [address] GAP 6 Normal 5-15 [facility] Comment on above: Performed By: #### L 500.2500, L100.0100 ####[facility] [address] [place], [address] GFR/1.73 sq M.predicted among non-blacks MDRD (S/P/Bld) [Vol rate/Area] 55 mL/min/{1.73_m2} Low >60 [facility] Comment on above: Result Comment: Non- GFR Calc Performed By: #### L 500.2500, L100.0100 ####[facility] [address] [place], [address] Glucose [Mass/Vol] 132 mg/dL High 74-106 [facility] Comment on above: Result Comment: Fast ing Glucose result greater than or equal to 126 mg/dL suggests DIABETES MELLITUS per A.D.A. criteria. Performed By: #### L 500.2500, L100.0100 ####[facility] [address] [place], [address] Potassium [Moles/Vol] 3.9 mmol/L Normal 3.5-5.1 [facility] Comment on above: Performed By: #### L 500.2500, L100.0100 ####[facility] [address] [place], [address] Sodium [Moles/Vol] 133 mmol/L Low 136-145 [facility] Comment on above: Performed By: #### L 500.2500, L100.0100 ####[facility] [address] [place], [address] Urea nitrogen [Mass/Vol] 18 mg/dL Normal 7-18 [facility] Comment on above: Performed By: #### L 500.2500, L100.0100 ####[facility] [address] [place], [address] CBC W/Diff, Automatedon 09-0 Absolute Lymph 0.96 X10 3/uL Normal 0.83-4.51 [facility] Comment on above: Performed By: #### L 500.2500, L100.0100 ####[facility] [address] [place], [address] Absolute Neut 9.8 X10 3/uL High 2.0-7.7 [facility] Comment on above: Performed By: #### L 500.2500, L100.0100 ####[facility] [address] [place], [address] Basophils/100 WBC (Bld) 0.4 % Normal 0-1 [facility] Comment on above: Performed By: #### L 500.2500, L100.0100 ####[facility] [address] [place], [address] Eosinophils/100 WBC (Bld) 1.4 % Normal 0-5 [facility] Comment on above: Performed By: #### L 500.2500, L100.0100 ####[facility] [address] [place], [address] Erythrocyte distribution width (RBC) [Ratio] 13.2 % Normal 11.6-14.6 [facility] Comment on above: Performed By: #### L 500.2500, L100.0100 ####[facility] [address] [place], [address] Hematocrit (Bld) [Volume fraction] 49.3 % High 37-47 [facility] Comment on above: Performed By: #### L 500.2500, L100.0100 ####[facility] [address] [place], [address] Hemoglobin (Bld) [Mass/Vol] 16.2 g/dL High 12.0-15.0 [facility] Comment on above: Performed By: #### L 500.2500, L100.0100 ####[facility] [address] [place], [address] IG% 0.400 Normal 0.0-0.9 [facility] Comment on above: Result Comment: IG% - Immature Granulocytes (promyelocytes, myelocytes and metamyelocytes) > 1% indicates that a LEFT SHIFT is Present. Performed By: #### L 500.2500, L100.0100 ####[facility] [address], [address] Lymphocytes/100 WBC (Bld) 7.9 % Low 19-41 [facility] Comment on above: Performed By: #### L 500.2500, L100.0100 ####[facility] [address] [place], [address] MCH (RBC) [Entitic mass] 31.1 pg Normal 27.0-32.0 [facility] Comment on above: Performed By: #### L 500.2500, L100.0100 ####[facility] [address] [place], [address] MCHC (RBC) [Mass/Vol] 32.9 g/dL Normal 32-36 [facility] Comment on above: Performed By: #### L 500.2500, L100.0100 ####[facility] [address] [place], [address] MCV (RBC) [Entitic vol] 94.6 fL Normal 81-99 [facility] Comment on above: Performed By: #### L 500.2500, L100.0100 ####[facility] [address] [place], [address] Monocytes/100 WBC (Bld) 8.9 % Normal 0-10 [facility] Comment on above: Performed By: #### L 500.2500, L100.0100 ####[facility] [address] [place], [address] Neutrophils/100 WBC (Bld) 81.0 % High 47-70 [facility] Comment on above: Performed By: #### L 500.2500, L100.0100 ####[facility] [address] [place], [address] Nucleated RBC (Bld) [#/Vol] 0 10*3/uL Normal 0-5 [facility] Comment on above: Performed By: #### L 500.2500, L100.0100 ####[facility] [address] [place], [address] Platelet mean volume (Bld) [Entitic vol] 9.5 fL Normal 6.2-12.0 [facility] Comment on above: Performed By: #### L 500.2500, L100.0100 ####[facility] [address] [place], [address] Platelets (Bld) [#/Vol] 203 10*3/uL Normal 150-450 [facility] Comment on above: Performed By: #### L 500.2500, L100.0100 ####[facility] [address] [place], [address] RBC (Bld) [#/Vol] 5.21 10*6/uL Normal 4.2-5.4 [facility] Comment on above: Performed By: #### L 500.2500, L100.0100 ####[facility] [address] [place], [address] RDW SD 46.5 fl High 35.1-43.9 [facility] Comment on above: Performed By: #### L 500.2500, L100.0100 ####[facility] [address] [place], [address] WBC (Bld) [#/Vol] 12.1 10*3/uL High 4.4-11.0 [facility] Comment on above: Performed By: #### L 500.2500, L100.0100 ####[facility] [address] [place], [address] Basic Metabolic Profile (BMP )on 03-09-2024 BUN/CRE 10.4 RATIO Normal 10-20 [facility] Comment on above: Performed By: #### L 100.0100, L500.2500 #### [facility] [address] [place], [address] CA,Total 9.2 mg/dL Normal 8.5-10.1 [facility] Comment on above: Performed By: #### L 100.0100, L500.2500 #### [facility] [address] [place], [address] Chloride [Moles/Vol] 101 mmol/L Normal 98-107 [facility] Comment on above: Performed By: #### L 100.0100, L500.2500 #### [facility] [address] [place], [address] CO2 [Moles/Vol] 24.0 mmol/L Normal 21.0-32.0 [facility] Comment on above: Performed By: #### L 100.0100, L500.2500 #### [facility] [address] [place], [address] Creatinine [Mass/Vol] 1.06 mg/dL High 0.55-1.02 [facility] Comment on above: Result Comment: The validity of the calculated GFR GFRAA in patients over 70 years has not been determined. Clinical correlation is essential. Performed By: #### L 100.0100, L500.2500 #### [facility] [address] [place], [address] ECRCL 41.22 ml/min Normal [facility] Comment on above: Performed By: #### L 100.0100, L500.2500 #### [facility] [address] [place], [address] EST GFR - AA 66 mL/min Normal >60 [facility] Comment on above: Result Comment: Afri can [place] GFR Calc Performed By: #### L 100.0100, L500.2500 #### [facility] [address] [place], [address] GAP 8 Normal 5-15 [facility] Comment on above: Performed By: #### L 100.0100, L500.2500 #### [facility] [address] [place], [address] GFR/1.73 sq M.predicted among non-blacks MDRD (S/P/Bld) [Vol rate/Area] 55 mL/min/{1.73_m2} Low >60 [facility] Comment on above: Result Comment: Non- GFR Calc Performed By: #### L 100.0100, L500.2500 #### [facility] [address] [place], [address] Glucose [Mass/Vol] 126 mg/dL High 74-106 [facility] Comment on above: Result Comment: Fast ing Glucose result greater than or equal to 126 mg/dL suggests DIABETES MELLITUS per A.D.A. criteria. Performed By: #### L 100.0100, L500.2500 #### [facility] [address] [place], [address] Potassium [Moles/Vol] 3.7 mmol/L Normal 3.5-5.1 [facility] Comment on above: Performed By: #### L 100.0100, L500.2500 #### [facility] [address] [place], [address] Sodium [Moles/Vol] 133 mmol/L Low 136-145 [facility] Comment on above: Performed By: #### L 100.0100, L500.2500 #### [facility] [address] [place], [address] Urea nitrogen [Mass/Vol] 11 mg/dL Normal 7-18 [facility] Comment on above: Performed By: #### L 100.0100, L500.2500 #### [facility] [address] [place], [address] CBC W/Diff, Automatedon 09-0 6-4 Absolute Lymph 1.75 X10 3/uL Normal 0.83-4.51 [facility] Comment on above: Performed By: #### L 100.0100, L500.2500 #### [facility] [address] [place], [address] Absolute Neut 10.8 X10 3/uL High 2.0-7.7 [facility] Comment on above: Performed By: #### L 100.0100, L500.2500 #### [facility] [address] [place], [address] Basophils/100 WBC (Bld) 0.6 % Normal 0-1 [facility] Comment on above: Performed By: #### L 100.0100, L500.2500 #### [facility] [address] [place], [address] Eosinophils/100 WBC (Bld) 0.6 % Normal 0-5 [facility] Comment on above: Performed By: #### L 100.0100, L500.2500 #### [facility] [address] [place], [address] Erythrocyte distribution width (RBC) [Ratio] 13.2 % Normal 11.6-14.6 [facility] Comment on above: Performed By: #### L 100.0100, L500.2500 #### [facility] [address] [place], [address] Hematocrit (Bld) [Volume fraction] 52.6 % High 37-47 [facility] Comment on above: Performed By: #### L 100.0100, L500.2500 #### [facility] [address] [place], [address] Hemoglobin (Bld) [Mass/Vol] 17.4 g/dL High 12.0-15.0 [facility] Comment on above: Performed By: #### L 100.0100, L500.2500 #### [facility] [address] [place], [address] IG% 0.400 Normal 0.0-0.9 [facility] Comment on above: Result Comment: IG% - Immature Granulocytes (promyelocytes, myelocytes and metamyelocytes) > 1% indicates that a LEFT SHIFT is Present. Performed By: #### L 100.0100, L500.2500 #### [facility] [address] [place], [address] Lymphocytes/100 WBC (Bld) 12.3 % Low 19-41 [facility] Comment on above: Performed By: #### L 100.0100, L500.2500 #### [facility] [address] [place], [address] MCH (RBC) [Entitic mass] 31.3 pg Normal 27.0-32.0 [facility] Comment on above: Performed By: #### L 100.0100, L500.2500 #### [facility] [address] [place], [address] MCHC (RBC) [Mass/Vol] 33.1 g/dL Normal 32-36 [facility] Comment on above: Performed By: #### L 100.0100, L500.2500 #### [facility] [address] [place], [address] MCV (RBC) [Entitic vol] 94.6 fL Normal 81-99 [facility] Comment on above: Performed By: #### L 100.0100, L500.2500 #### [facility] [address] [place], [address] Monocytes/100 WBC (Bld) 9.9 % Normal 0-10 [facility] Comment on above: Performed By: #### L 100.0100, L500.2500 #### [facility] [address] [place], [address] Neutrophils/100 WBC (Bld) 76.2 % High 47-70 [facility] Comment on above: Performed By: #### L 100.0100, L500.2500 #### [facility] [address] [place], [address] Nucleated RBC (Bld) [#/Vol] 0 10*3/uL Normal 0-5 [facility] Comment on above: Performed By: #### L 100.0100, L500.2500 #### [facility] [address] [place], [address] Platelet mean volume (Bld) [Entitic vol] 9.8 fL Normal 6.2-12.0 [facility] Comment on above: Performed By: #### L 100.0100, L500.2500 #### [facility] [address] [place], [address] Platelets (Bld) [#/Vol] 246 10*3/uL Normal 150-450 [facility] Comment on above: Performed By: #### L 100.0100, L500.2500 #### [facility] [address] [place], [address] RBC (Bld) [#/Vol] 5.56 10*6/uL High 4.2-5.4 [facility] Comment on above: Performed By: #### L 100.0100, L500.2500 #### [facility] [address] [place], [address] RDW SD 46.2 fl High 35.1-43.9 [facility] Comment on above: Performed By: #### L 100.0100, L500.2500 #### [facility] [address] [place], [address] WBC (Bld) [#/Vol] 14.2 10*3/uL High 4.4-11.0 [facility] Comment on above: Performed By: #### L 100.0100, L500.2500 #### [facility] [address] [place], [address] CORTISOL SERUMon 03-09-2024 CORTISOL 14.80 ug/dL Normal 3.44-22.45 [facility] Comment on above: Result Comment: Adul t (AM) 5.27 - 22.45 ug/dL Adult (PM) 3.44 - 16.76 ug/dL Performed By: #### L 509.6000 ####[facility] [address] [place], [address] Phosphoruson 03-09-2024 Phosphate [Mass/Vol] 2.4 mg/dL Low 2.5-4.9 [facility] Comment on above: Performed By: #### L 100.0100, L500.2500 #### [facility] [address] [place], [address] CBC W/Diff, Automatedon 09-0 -2023 Absolute Lymph 1.69 X10 3/uL Normal 0.83-4.51 [facility] Comment on above: Performed By: #### L 300.4310 #### [facility] [address] [place], [address] Absolute Neut 8.1 X10 3/uL High 2.0-7.7 [facility] Comment on above: Performed By: #### L 300.4310 #### [facility] [address] [place], [address] Basophils/100 WBC (Bld) 0.6 % Normal 0-1 [facility] Comment on above: Performed By: #### L 300.4310 #### [facility] [address] [place], [address] Eosinophils/100 WBC (Bld) 1.1 % Normal 0-5 [facility] Comment on above: Performed By: #### L 300.4310 #### [facility] [address] [place], [address] Erythrocyte distribution width (RBC) [Ratio] 13.3 % Normal 11.6-14.6 [facility] Comment on above: Performed By: #### L 300.4310 #### [facility] [address] [place], [address] Hematocrit (Bld) [Volume fraction] 49.2 % High 37-47 [facility] Comment on above: Performed By: #### L 300.4310 #### [facility] [address] [place], [address] Hemoglobin (Bld) [Mass/Vol] 16.5 g/dL High 12.0-15.0 [facility] Comment on above: Performed By: #### L 300.4310 #### [facility] [address] [place], [address] IG% 0.500 Normal 0.0-0.9 [facility] Comment on above: Result Comment: IG% - Immature Granulocytes (promyelocytes, myelocytes and metamyelocytes) > 1% indicates that a LEFT SHIFT is Present. Performed By: #### L 300.4310 #### [facility] [address] [place], [address] Lymphocytes/100 WBC (Bld) 15.3 % Low 19-41 [facility] Comment on above: Performed By: #### L 300.4310 #### [facility] [address] [place], [address] MCH (RBC) [Entitic mass] 31.7 pg Normal 27.0-32.0 [facility] Comment on above: Performed By: #### L 300.4310 #### [facility] [address] [place], [address] MCHC (RBC) [Mass/Vol] 33.5 g/dL Normal 32-36 [facility] Comment on above: Performed By: #### L 300.4310 #### [facility] [address] [place], [address] MCV (RBC) [Entitic vol] 94.4 fL Normal 81-99 [facility] Comment on above: Performed By: #### L 300.4310 #### [facility] [address] [place], [address] Monocytes/100 WBC (Bld) 9.3 % Normal 0-10 [facility] Comment on above: Performed By: #### L 300.4310 #### [facility] [address] [place], [address] Neutrophils/100 WBC (Bld) 73.2 % High 47-70 [facility] Comment on above: Performed By: #### L 300.4310 #### [facility] [address] [place], [address] Nucleated RBC (Bld) [#/Vol] 0 10*3/uL Normal 0-5 [facility] Comment on above: Performed By: #### L 300.4310 #### [facility] [address] [place], [address] Platelet mean volume (Bld) [Entitic vol] 9.4 fL Normal 6.2-12.0 [facility] Comment on above: Performed By: #### L 300.4310 #### [facility] [address] [place], [address] Platelets (Bld) [#/Vol] 292 10*3/uL Normal 150-450 [facility] Comment on above: Performed By: #### L 300.4310 #### [facility] [address] [place], [address] RBC (Bld) [#/Vol] 5.21 10*6/uL Normal 4.2-5.4 [facility] Comment on above: Performed By: #### L 300.4310 #### [facility] [address] [place], [address] RDW SD 46.5 fl High 35.1-43.9 [facility] Comment on above: Performed By: #### L 300.4310 #### [facility] [address] [place], [address] WBC (Bld) [#/Vol] 11.0 10*3/uL Normal 4.4-11.0 [facility] Comment on above: Performed By: #### L 300.4310 #### [facility] [address] [place], [address] Comprehensive Metabolic Prof ilon 03-08-2024 Albumin [Mass/Vol] 3.3 g/dL Normal 3.2-5.0 [facility] Comment on above: Performed By: #### L 300.4310 #### [facility] [address] [place], [address] Albumin/Globulin [Mass ratio] 0.8 {ratio} Low 0.9-2.4 [facility] Comment on above: Performed By: #### L 300.4310 #### [facility] [address] [place], [address] ALK P 73 U/L Normal 45-117 [facility] Comment on above: Performed By: #### L 300.4310 #### [facility] [address] [place], [address] ALT [Catalytic activity/Vol] 22 U/L Normal 13-56 [facility] Comment on above: Performed By: #### L 300.4310 #### [facility] [address] [place], [address] AST [Catalytic activity/Vol] 26 U/L Normal 15-37 [facility] Comment on above: Performed By: #### L 300.4310 #### [facility] [address] [place], [address] Bilirubin [Mass/Vol] 0.60 mg/dL Normal 0.20-1.00 [facility] Comment on above: Result Comment: For patients on eltrombopag therapy, use of Dimension [place] TBIL is not recommended. Performed By: #### L 300.4310 #### [facility] [address] [place], [address] BUN/CRE 13.2 RATIO Normal 10-20 [facility] Comment on above: Performed By: #### L 300.4310 #### [facility] [address] [place], [address] CA,Total 8.5 mg/dL Normal 8.5-10.1 [facility] Comment on above: Performed By: #### L 300.4310 #### [facility] [address] [place], [address] Chloride [Moles/Vol] 106 mmol/L Normal 98-107 [facility] Comment on above: Performed By: #### L 300.4310 #### [facility] [address] [place], [address] CO2 [Moles/Vol] 24.0 mmol/L Normal 21.0-32.0 [facility] Comment on above: Performed By: #### L 300.4310 #### [facility] [address] [place], [address] Creatinine [Mass/Vol] 1.44 mg/dL High 0.55-1.02 [facility] Comment on above: Result Comment: The validity of the calculated GFR GFRAA in patients over 70 years has not been determined. Clinical correlation is essential. Performed By: #### L 300.4310 #### [facility] [address] [place], [address] ECRCL 30.56 ml/min Normal [facility] Comment on above: Performed By: #### L 300.4310 #### [facility] [address] [place], [address] EST GFR - AA 47 mL/min Low >60 [facility] Comment on above: Result Comment: Afri can [place] GFR Calc Performed By: #### L 300.4310 #### [facility] [address] [place], [address] GAP 7 Normal 5-15 [facility] Comment on above: Performed By: #### L 300.4310 #### [facility] [address] [place], [address] GFR/1.73 sq M.predicted among non-blacks MDRD (S/P/Bld) [Vol rate/Area] 39 mL/min/{1.73_m2} Low >60 [facility] Comment on above: Result Comment: Non- GFR Calc Performed By: #### L 300.4310 #### [facility] [address] [place], [address] Globulin (S) [Mass/Vol] 3.9 g/dL Normal 2.2-4.2 [facility] Comment on above: Performed By: #### L 300.4310 #### [facility] [address] [place], [address] Glucose [Mass/Vol] 134 mg/dL High 74-106 [facility] Comment on above: Result Comment: Fast ing Glucose result greater than or equal to 126 mg/dL suggests DIABETES MELLITUS per A.D.A. criteria. Performed By: #### L 300.4310 #### [facility] [address] [place], [address] Potassium [Moles/Vol] 3.7 mmol/L Normal 3.5-5.1 [facility] Comment on above: Performed By: #### L 300.4310 #### [facility] [address] [place], [address] Sodium [Moles/Vol] 137 mmol/L Normal 136-145 [facility] Comment on above: Performed By: #### L 300.4310 #### [facility] [address] [place], [address] T PROT 7.2 g/dL Normal 6.4-8.2 [facility] Comment on above: Performed By: #### L 300.4310 #### [facility] [address] [place], [place], [address] Urea nitrogen [Mass/Vol] 19 mg/dL High 7-18 [facility] Comment on above: Performed By: #### L 300.4310 #### [facility] [address] [place], [place], [address] Consultation - Orthopedicson 03-08-2024 Consultation - Orthopedics [facility] Medical Records Department [address] [place] [address] Consultation - Orthopedics 03/08/24 1159 MR#: [id number] Acct: [id number] Name: MAUREEN ANSARI ALYSHA Rep #: [id number] : [id number] From: Jaziel Lin DO PCP: Care Physician,No Primary Status:[place] [facility] [id number] H[place] Consult Data Date of Consult: 03/08/24 [...] left hip fracture 4 years ago in [place]. She denies any numbness or tingling. Patient's [...] for physical and Occupational Therapy possible placement. [facility] Medical History CKD (chronic kidney disease) [...] 09:35 Temperature (more content not included)... Normal [facility] Magnesiumon 03-08-2024 Magnesium [Mass/Vol] 2.1 mg/dL Normal 1.6-2.6 [facility] Comment on above: Order Comment: Comme nts: may add to ED labs Performed By: #### L 100.0100, L500.2500 #### [facility] [address] [place], [place], [address] Phosphoruson 03-08-2024 Phosphate [Mass/Vol] 2.8 mg/dL Normal 2.5-4.9 [facility] Comment on above: Performed By: #### L 501.2300 ####[facility] [address] [place], [place], [address] T4 Free Directon 03-08-2024 T4 FREE DIRECT 1.05 ng/dL Normal 0.76-1.46 [facility] Comment on above: Performed By: #### L 100.0100, L500.2500 #### [facility] [address] [place], [address] Thyroid Stim Hormone (TSH)on 03-08-2024 TSH 41.400 uIU/mL High 0.358-3.740 [facility] Comment on above: Performed By: #### L 300.4310 #### [facility] [address] [place], [address] 12 Lead EKGon 03-07-2024 12 Lead EKG [facility] Cardiovascular Services [address] [place] [address] 12 Lead EKG 03/07/24 2152 MR#: [id number] Acct: [id number] Name: MAUREEN ANSARI Rep #: [id number] : [id number] From: Sedrick Alcaraz MD Attending Dr: Dr. Isaias Rincon MD Status: ADM IN Ordering Dr: Isela Isaac DO Date: 03/07/24 [place] [facility] [place]: F C Admitted: 03/07/24 Test Reason [...] Abnormal ECG Confirmed by SEDRICK ALCARAZ MD ([id number]), editor continuity and script MARIBEL DE SANTIAGO ([id number]) on 03/08/2024 1:51:51 PM Referred By: Confirmed By:SEDRICK ALCARAZ MD 03/08/24 9541 Date Sedrick Alcaraz MD CC: Dr. Isaias Rincon MD; Dr. Isela Isaac DO; No Primary Care Physician Signed Normal [facility] Basic Metabolic Profile (BMP )on 03-07-2024 BUN/CRE 13.0 RATIO Normal 10-20 [facility] Comment on above: Performed By: #### L 100.0100, L500.2500 #### [facility] [address] [place], [address] CA,Total 9.2 mg/dL Normal 8.5-10.1 [facility] Comment on above: Performed By: #### L 100.0100, L500.2500 #### [facility] [address] [place], [address] Chloride [Moles/Vol] 104 mmol/L Normal 98-107 [facility] Comment on above: Performed By: #### L 100.0100, L500.2500 #### [facility] [address] [place], [address] CO2 [Moles/Vol] 27.0 mmol/L Normal 21.0-32.0 [facility] [facility] Comment on above: Performed By: #### L 100.0100, L500.2500 #### [facility] [address] [place], [address] Creatinine [Mass/Vol] 1.61 mg/dL High 0.55-1.02 [facility] Comment on above: Result Comment: The validity of the calculated GFR GFRAA in patients over 70 years has not been determined. Clinical correlation is essential. Performed By: #### L 100.0100, L500.2500 #### [facility] [address] [place], [address] ECRCL 24.36 ml/min Normal [facility] Comment on above: Performed By: #### L 100.0100, L500.2500 #### [facility] [address] [place], [address] EST GFR - AA 41 mL/min Low >60 [facility] Comment on above: Result Comment: Afri can [place] GFR Calc Performed By: #### L 100.0100, L500.2500 #### [facility] [address] [place], [address] GAP 7 Normal 5-15 [facility] Comment on above: Performed By: #### L 100.0100, L500.2500 #### [facility] [address] [place], [address] GFR/1.73 sq M.predicted among non-blacks MDRD (S/P/Bld) [Vol rate/Area] 34 mL/min/{1.73_m2} Low >60 [facility] Comment on above: Result Comment: Non- GFR Calc Performed By: #### L 100.0100, L500.2500 #### [facility] [address] [place], [address] Glucose [Mass/Vol] 110 mg/dL High 74-106 [facility] Comment on above: Result Comment: Fast ing Glucose result from 100 to 125 mg/dL suggests IMPAIRED HOMEOSTASIS per A.D.A. criteria. Performed By: #### L 100.0100, L500.2500 #### [facility] [address] [place], [address] Potassium [Moles/Vol] 3.0 mmol/L Low 3.5-5.1 [facility] Comment on above: Performed By: #### L 100.0100, L500.2500 #### [facility] [address] [place], [address] Sodium [Moles/Vol] 138 mmol/L Normal 136-145 [facility] Comment on above: Performed By: #### L 100.0100, L500.2500 #### [facility] [address] [place], [address] Urea nitrogen [Mass/Vol] 21 mg/dL High 7-18 [facility] Comment on above: Performed By: #### L 100.0100, L500.2500 #### [facility] [address] [place], [address] CBC W/Diff, Automatedon 09-0 4-2023 Absolute Lymph 1.44 X10 3/uL Normal 0.83-4.51 [facility] Comment on above: Performed By: #### L 100.0100, L500.2500 #### [facility] [address] [place], [address] Absolute Neut 6.8 X10 3/uL Normal 2.0-7.7 [facility] Comment on above: Performed By: #### L 100.0100, L500.2500 #### [facility] [address] [place], [address] Basophils/100 WBC (Bld) 1.1 % High 0-1 [facility] Comment on above: Performed By: #### L 100.0100, L500.2500 #### [facility] [address] [place], [address] Eosinophils/100 WBC (Bld) 1.3 % Normal 0-5 [facility] Comment on above: Performed By: #### L 100.0100, L500.2500 #### [facility] [address] [place], [address] Erythrocyte distribution width (RBC) [Ratio] 13.3 % Normal 11.6-14.6 [facility] Comment on above: Performed By: #### L 100.0100, L500.2500 #### [facility] [address] [place], [address] Hematocrit (Bld) [Volume fraction] 51.2 % High 37-47 [facility] Comment on above: Performed By: #### L 100.0100, L500.2500 #### [facility] [address] [place], [address] Hemoglobin (Bld) [Mass/Vol] 17.1 g/dL High 12.0-15.0 [facility] Comment on above: Performed By: #### L 100.0100, L500.2500 #### [facility] [address] [place], [address] IG% 0.300 Normal 0.0-0.9 [facility] Comment on above: Result Comment: IG% - Immature Granulocytes (promyelocytes, myelocytes and metamyelocytes) > 1% indicates that a LEFT SHIFT is Present. Performed By: #### L 100.0100, L500.2500 #### [facility] [address] [place], [address] Lymphocytes/100 WBC (Bld) 15.7 % Low 19-41 [facility] Comment on above: Performed By: #### L 100.0100, L500.2500 #### [facility] [address] [place], [address] MCH (RBC) [Entitic mass] 31.3 pg Normal 27.0-32.0 [facility] Comment on above: Performed By: #### L 100.0100, L500.2500 #### [facility] [address] [place], [address] MCHC (RBC) [Mass/Vol] 33.4 g/dL Normal 32-36 [facility] Comment on above: Performed By: #### L 100.0100, L500.2500 #### [facility] [address] [place], [address] MCV (RBC) [Entitic vol] 93.8 fL Normal 81-99 [facility] Comment on above: Performed By: #### L 100.0100, L500.2500 #### [facility] [address] [place], [address] Monocytes/100 WBC (Bld) 8.1 % Normal 0-10 [facility] Comment on above: Performed By: #### L 100.0100, L500.2500 #### [facility] [address] [place], [address] Neutrophils/100 WBC (Bld) 73.5 % High 47-70 [facility] Comment on above: Performed By: #### L 100.0100, L500.2500 #### [facility] [address] [place], [address] Nucleated RBC (Bld) [#/Vol] 0 10*3/uL Normal 0-5 [facility] Comment on above: Performed By: #### L 100.0100, L500.2500 #### [facility] [address] [place], [address] Platelet mean volume (Bld) [Entitic vol] 8.9 fL Normal 6.2-12.0 [facility] Comment on above: Performed By: #### L 100.0100, L500.2500 #### [facility] [address] [place], [address] Platelets (Bld) [#/Vol] 311 10*3/uL Normal 150-450 [facility] Comment on above: Performed By: #### L 100.0100, L500.2500 #### [facility] [address] [place], [address] RBC (Bld) [#/Vol] 5.46 10*6/uL High 4.2-5.4 [facility] Comment on above: Performed By: #### L 100.0100, L500.2500 #### [facility] [address] [place], [address] RDW SD 45.8 fl High 35.1-43.9 [facility] Comment on above: Performed By: #### L 100.0100, L500.2500 #### [facility] [address] [place], [address] WBC (Bld) [#/Vol] 9.2 10*3/uL Normal 4.4-11.0 [facility] Comment on above: Performed By: #### L 100.0100, L500.2500 #### [facility] [address] [place], [address] Emergency Department Summary on 03-07-[address] [facility] Medical Records Department [address] [place] [address] Emergency Department Summary 03/07/24 MR#: [id number] Acct: [id number] Name: MAUREEN ANSARI ALYSHA Rep #: [id number] : 1955 68 From: Isela Isaac DO PCP: Care Physician,No Primary Status:ADM IN Location: [address] History of Present Illness Chief Complaint: [...] her left hip after a fracture in [place] 4 years ago. She does not have a primary care physician. [facility] Medical History (Updated 03/07/24 @ 21:28 by [...] no t (more content not included)... Normal [facility] H AND P Exam - [facility] 03-07-2024 H&P Exam - Hospitalist [facility] Medical Records Department [address] [facility] [place] [address] H P Exam - Hospitalist 03/07/242121 MR#: [id number] Acct: [id number] Name: MAUREEN ANSARI ALYSHA Rep #: [id number] : 1955 68 From: Tere Brown MD PCP: Care Physician,No Primary Status:ADM IN [place] [facility] [id number] HPI - General General Date of Admission: 03/07/24 Date of Service: 03/07/24 Chief Complaint: Fall, left leg pain. HPI Narrative The patient is a 68 y/o F w/ PMHx: Tobacco use, HTN, HLD, Hypothyroidism, Carotid disease status post right CEA who presents to the [facility] ED on 03/07/24 with history of unfortunately [...] a fracture remotely 4 years ago in [place]. She denies having any primary care physician [...] GFR 34 with no clear comparisons unfortunately. [facility] Medical History CKD (chronic kidney disease) [...] Normal Respiratory (more content not included)... Normal [facility] Knee 1 or 2 Viewson 03-07-20 Knee 1 or 2 Views [facility] Imaging Services [address] [place] [address] Knee 1 or 2 Views MR#: [id number] Acct: [id number] Name: MAUREEN BARRON Rep #: [id number] : 1955 F 68 From: Oral grimaldo DO PCP: Care Physician,No Primary Status: PRE ER Study: Knee 1 or 2 Views Date of Exam: 03/07/24 Exam# [id number] Ordering Dr: Isela Isaac DO [id number] EXAM: XR LEFT KNEE, 1 OR 2 [...] Isela Isaac DO; No Primary Care Physician Laboratory Tester: Signed Normal [facility] Tibia Fibula 2 Viewson 03-07 Tibia Fibula 2 Views [facility] Imaging Services [address] [place] [address] Tibia Fibula 2 Views MR#: [id number] Acct: [id number] Name: MAUREEN BARRON Rep #: [id number] : 1955 F 68 From: Oral grimaldo DO PCP: Care Physician,No Primary Status: PRE ER Study: Tibia Fibula 2 Views Date of Exam: 03/07/24 Exam# [id number] Ordering Dr: Isela Isaac DO [id number] EXAM: XR LEFT TIBIA AND FIBULA, 2 [...] Isela Isaac DO; No Primary Care Physician Laboratory Tester: Signed Normal [facility] Vital Signs Date Time Vital Sign Value Performing Clinician Facility 01-07-2025 23:15-0400 Diastolic blood pressure 71 mm[Hg] No Primary Care Physician [facility] 01-07-2025 23:15-0400 Heart rate 54 /min No Primary Care Physician [facility] 01-07-2025 23:15-0400 Respiratory rate 23 /min No Primary Care Physician [facility] 01-07-2025 23:15-0400 SaO2% (BldA) [Mass fraction] 96 % No Primary Care Physician [facility] 01-07-2025 23:15-0400 Systolic blood pressure 96 mm[Hg] No Primary Care Physician [facility] 01-07-2025 22:42-0400 Body temperature 98.6 [degF] No Primary Care Physician [facility] 01-07-2025 17:00-0400 Inhaled oxygen flow rate 3 L/min No Primary Care Physician [facility] 01-07-2025 14:47-0400 Body height 152.4 cm No Primary Care Physician [facility] 01-07-2025 14:47-0400 Body mass index (BMI) [Ratio] 23.8 kg/m2 No Primary Care Physician [facility] 01-07-2025 14:47-0400 Body weight 55.3 kg No Primary Care Physician [facility] 12-13-2024 14:18-0400 Body temperature 98.3 [degF] No Primary Care Physician [facility] 12-13-2024 14:18-0400 Diastolic blood pressure 46 mm[Hg] No Primary Care Physician [facility] 12-13-2024 14:18-0400 Heart rate 77 /min No Primary Care Physician [facility] 12-13-2024 14:18-0400 Inhaled oxygen flow rate 3 L/min No Primary Care Physician [facility] 12-13-2024 14:18-0400 Respiratory rate 19 /min No Primary Care Physician [facility] 12-13-2024 14:18-0400 SaO2% (BldA) [Mass fraction] 94 % No Primary Care Physician [facility] 12-13-2024 14:18-0400 Systolic blood pressure 90 mm[Hg] No Primary Care Physician [facility] 12-13-2024 04:52-0400 Body mass index (BMI) [Ratio] 22.9 kg/m2 No Primary Care Physician [facility] 12-13-2024 04:52-0400 Body weight 53.1 kg No Primary Care Physician [facility] 12-12-2024 04:00-0400 Inhaled oxygen concentration 40 % No Primary Care Physician [facility] 12-11-2024 14:12-0400 Body height 152.4 cm No Primary Care Physician [facility] 12-11-2024 02:59-0400 Diastolic blood pressure 70 mm[Hg] No Primary Care Physician [facility] 12-11-2024 02:59-0400 Heart rate 80 /min No Primary Care Physician [facility] 12-11-2024 02:59-0400 Inhaled oxygen concentration 60 % No Primary Care Physician [facility] 12-11-2024 02:59-0400 Respiratory rate 21 /min No Primary Care Physician [facility] 12-11-2024 02:59-0400 SaO2% (BldA) [Mass fraction] 97 % No Primary Care Physician [facility] 12-11-2024 02:59-0400 Systolic blood pressure 125 mm[Hg] No Primary Care Physician [facility] 12-11-2024 02:27-0400 Body temperature 98.2 [degF] No Primary Care Physician [facility] 12-11-2024 01:32-0400 Inhaled oxygen flow rate 6 L/min No Primary Care Physician [facility] 12-10-2024 23:36-0400 Body mass index (BMI) [Ratio] 24.3 kg/m2 No Primary Care Physician [facility] 12-10-2024 23:36-0400 Body weight 56.6 kg No Primary Care Physician [facility] 12-10-2024 23:24-0400 Body height 152.4 cm No Primary Care Physician [facility] 11-06-2024 10:24-0400 Diastolic blood pressure 108 mm[Hg] Argenis Nagy DO Work Phone: [facility] Comment on above: manual BPdr notified 11-06-2024 10:24-0400 Heart rate 93 /min Argenis Arriolale DO Work Phone: [facility] 11-06-2024 10:24-0400 SaO2% (BldA) [Mass fraction] 96 % Argenis Nagy [employer] Work Phone: [facility] 11-06-2024 10:24-0400 Systolic blood pressure 190 mm[Hg] Argenis Nagy DO Work Phone: [facility] Comment on above: manual BPdr notified 10-18-2024 09:57-0400 Body mass index (BMI) [Ratio] 22.8 kg/m2 No Primary Care Physician [facility] 10-18-2024 09:57-0400 Body temperature 98.4 [degF] No Primary Care Physician [facility] 10-18-2024 09:57-0400 Body weight 53.07 kg No Primary Care Physician [facility] 10-18-2024 09:57-0400 Diastolic blood pressure 78 mm[Hg] No Primary Care Physician [facility] 10-18-2024 09:57-0400 Heart rate 91 /min No Primary Care Physician [facility] 10-18-2024 09:57-0400 Respiratory rate 16 /min No Primary Care Physician [facility] 10-18-2024 09:57-0400 SaO2% (BldA) [Mass fraction] 95 % No Primary Care Physician [facility] 10-18-2024 09:57-0400 Systolic blood pressure 116 mm[Hg] No Primary Care Physician [facility] 09-25-2024 09:28-0400 Diastolic blood pressure 78 mm[Hg] Argenis Arriolale DO Work Phone: [facility] 09-25-2024 09:28-0400 Heart rate 83 /min Argenis Nagy DO Work Phone: [facility] 09-25-2024 09:28-0400 SaO2% (BldA) [Mass fraction] 96 % Argenis Nagy DO Work Phone: [facility] 09-25-2024 09:28-0400 Systolic blood pressure 157 mm[Hg] Argenis Nagy DO Work Phone: [facility] 07-31-2024 08:58-0500 Diastolic blood pressure 84 mm[Hg] Argenis Nagy DO Work Phone: [facility] 07-31-2024 08:58-0500 Systolic blood pressure 156 mm[Hg] Argenis Nagy DO Work Phone: [facility] 07-31-2024 08:50-0500 Heart rate 80 /min Argenis Nagy DO Work Phone: [facility] 07-31-2024 08:50-0500 SaO2% (BldA) [Mass fraction] 95 % Argenis Arriolale DO Work Phone: [facility] 06-25-2024 13:23-0500 Body height 152.4 cm Marianela Sheets DO Work Phone: [facility] 06-25-2024 13:23-0500 Body mass index (BMI) [Ratio] 23.24 kg/m2 Marianela Sheets DO Work Phone: [facility] 06-25-2024 13:23-0500 Body temperature 97.7 [degF] Marianela Sheets DO Work Phone: [facility] 06-25-2024 13:23-0500 Body weight 53.98 kg Marianela Sheets DO Work Phone: [facility] 06-25-2024 13:23-0500 Diastolic blood pressure 72 mm[Hg] Marianela Sheets DO Work Phone: [facility] 06-25-2024 13:23-0500 Heart rate 58 /min Marianela Sheets DO Work Phone: [facility] 06-25-2024 13:23-0500 Respiratory rate 16 /min Marianela Sheets DO Work Phone: [facility] 06-25-2024 13:23-0500 SaO2% (BldA) [Mass fraction] 98 % Marianela Sheets DO Work Phone: [facility] 06-25-2024 13:23-0500 Systolic blood pressure 118 mm[Hg] Marianela Sheets DO Work Phone: [facility] Encounters Encounter Date Encounter Type Care Provider Facility Start: 01-07-2025 Evaluation and management of inpatient Dr. Hamilton Mehta DO -[facility] Work Phone: Start: 01-07-2025 End: 01-07-2025 Refill Stevan Madera MD Work Phone: [facility] Comment on above: Refill Request Refill Request (Ator vastatin.) BP Med Start: 01-06-2025 End: 01-06-2025 Telephone encounter Maribel Meyer APRN.CHERRY DIPPER Work Phone: Cardiothoracic Start: 01-03-2025 End: 01-03-2025 Evaluation and management of inpatient [facility] Work Phone: Cardiology Start: 12-19-2024 End: 12-20-2024 ambulatory Marianela C Sheets DO Work Phone: [facility] Comment on above: Unable to have a [...] Preoperative state Sera Milton DMD Work Phone: [facility] Work Phone: Start: 12-15-2024 End: 01-04-2025 Evaluation and management of inpatient MARIANELA C SHEETS Facility:[facility] Start: 12-13-2024 End: 12-15-2024 Evaluation and management of inpatient JEAN PAUL HOLT Facility:[facility] Start: 12-13-2024 Non-patient / Non-visit Dr. Nuha Holt MD [facility] Start: 12-13-2024 Non-patient / Non-visit Dr. Sukhi duran [facility] Work Phone: Start: 12-12-2024 Non-patient / Non-visit Dr. Nuha Holt MD [facility] Start: 12-12-2024 Non-patient / Non-visit Dr. Sukhi Almaraz [facility] Work Phone: Start: 12-11-2024 [facility] Start: 12-11-2024 Non-patient / Non-visit Dr. Nuha Holt MD [facility] Start: 12-11-2024 End: 12-13-2024 Evaluation and management of inpatient Dr. Francis Bojorquez MD -Intensive Care Unit Work Phone: Start: 12-11-2024 ambulatory Francis Bojorquez Facility:[facility] Start: 12-11-2024 Non-patient / Non-visit Dr. Francis santiago MD -[place] [facility] Work Phone: Start: 12-03-2024 End: 12-03-2024 ambulatory MARIANELA C SHEETS Facility:[facility] Start: 11-23-2024 End: 11-27-2024 Refill Argenis Nagy DO Work Phone: Vascular Surgery Comment on above: Refill Request Start: 11-19-2024 End: 11-19-[address] Brayden Underwood MD -[facility] Work Phone: Start: 11-19-2024 End: 11-19-2024 ambulatory Brayden Underwood Facility:[facility] Start: 11-16-2024 End: 11-16-2024 Telephone encounter Marianela C Sheets DO Work Phone: [facility] Comment on above: Lab Orders Start: 11-08-2024 End: 11-08-2024 ambulatory Marianela C Sheets DO Work Phone: [facility] Comment on above: High blood pressure Start: 11-07-2024 End: 11-08-2024 Telephone encounter Marianela C Sheets DO Work Phone: [facility] Comment on above: Patient Update Start: 11-06-2024 End: 11-06-2024 Patient encounter procedure Argenis Nagy DO Work Phone: Vascular Surgery Comment on above: Encounter for screen ing for cardiovascular disorders (Primary Dx); Claudication; Primary hypertension Start: 11-06-2024 End: 11-06-2024 ambulatory ARGENIS NAGY Facility:[facility] Start: 10-30-2024 End: 11-07-2024 Follow-up encounter Marianela C Sheets DO Work Phone: [facility] Start: 10-19-2024 ambulatory UNKNOWN PROVIDER Facili ty:[facility] Start: 10-19-2024 End: 10-19-2024 Subsequent hospital visit by physician [facility] Comment on above: Peripheral vascular disease [I73.9] Start: 10-18-2024 End: 10-18-[address] Brayden Underwood MD -[facility] Work Phone: Start: 10-18-2024 End: 10-18-2024 ambulatory Jaziel Lin Facility:[facility] Start: 10-03-2024 End: 12-03-2024 Follow-up encounter Marianela C Sheets DO Work Phone: [facility] Comment on above: Results Start: 09-25-2024 End: 09-25-2024 ambulatory MARIANELA C SHEETS Facility:[facility] Start: 09-25-2024 End: 09-25-2024 Patient encounter procedure Argenis Nagy DO Work Phone: Vascular Surgery Comment on above: Peripheral vascular disease (HCC) (Primary Dx); Screening for nephropathy Start: 09-23-2024 End: 09-24-2024 Refill Marianela Perez Sheets DO Work Phone: [facility] Comment on above: Refill Request Start: 09-11-2024 End: 09-18-2024 Telephone encounter Marianela C Sheets DO Work Phone: [facility] Comment on above: Lab Orders Start: 08-31-2024 End: 10-31-2024 Follow-up encounter Marianela Perez Sheets DO Work Phone: [facility] Start: 08-30-2024 End: 08-30-2024 ambulatory MARIANELA C SHEETS Facility:[facility] Start: 08-30-2024 End: 08-30-2024 Subsequent hospital visit by physician [facility] Work Phone: Radiology Comment on above: Asymptomatic menopau se [Z78.0] Encounter for screen ing mammogram for breast cancer [Z12.31] Start: 08-29-2024 End: 08-29-2024 ambulatory ARGENIS NAGY Facility:[facility] Start: 08-29-2024 End: 08-29-2024 ambulatory ARGENIS NAGY Facility:[facility] Start: 07-31-2024 End: 07-31-2024 ambulatory ARGENIS NAGY Facility:[facility] Start: 07-31-2024 End: 07-31-2024 Patient encounter procedure Argenis Nagy DO Work Phone: Vascular Surgery Comment on above: Symptomatic varicose veins of both lower extremities (Primary Dx); Claudication in peripheral vascular disease (HCC); Primary hypertension Start: 07-30-2024 End: 07-30-2024 Telephone encounter Marianela C Sheets DO Work Phone: [facility] Comment on above: Lab Orders Start: 07-26-2024 End: 07-26-2024 ambulatory MARIANELA C SHEETS Facility:[facility] Start: 07-25-2024 End: 07-25-2024 ambulatory Ana Guerra RN Work Phone: [facility] Start: 07-25-2024 End: 07-25-2024 Home visit Ana Guerra RN Work Phone: [facility] Comment on above: Transition Of Care ( TCM f/u - Appointment) Bi-weekly phone contact (Recurring) for Transitional Care Management Start: 07-24-2024 End: 07-25-2024 Refill Marianela C Sheets DO Work Phone: [facility] Comment on above: Refill Request Start: 07-11-2024 End: 07-12-2024 ambulatory Ana Guerra RN Work Phone: [facility] Start: 07-11-2024 End: 07-12-2024 Home visit Ana Guerra RN Work Phone: [facility] [facility] Comment on above: Transition Of Care ( Left CC Bety AMA 07/10/24) Initial phone contact for Transitional Care Management Start: 07-09-2024 End: 07-09-2024 Evaluation and management of inpatient FIDENCIO ADORNO Facility:[id number] Start: 07-09-2024 End: 07-10-2024 Evaluation and management of inpatient PIETEREUNICE NAVARROH Facility:[id number] Start: 07-08-2024 End: 07-08-2024 Emergency department patient visit ALYSIA ELAM Facility:[facility] Start: 06-25-2024 End: 06-25-2024 ambulatory MARIANELA C SHEETS Facility:[facility] Start: 06-25-2024 End: 06-25-2024 Patient encounter procedure Marianela C Sheets DO Work Phone: [facility] Comment on above: Hypothyroidism, acqu ired (Primary Dx); Claudication (HCC); Asymptomatic menopause; Encounter for screening mammogram for breast cancer; Screening for lipid disorders; Encounter for immunization; Screening for endocrine, metabolic and immunity disorder; Screening for blood disease; Well adult exam Start: 06-25-2024 End: 06-25-2024 Patient encounter status Marianela C Grace DO Work Phone: [facility] Start: 06-13-2024 ambulatory Jaziel Lin Facili ty:[facility] Start: 06-13-2024 End: 06-13-2024 ambulatory Jaziel Lin Facility:[facility] Start: 03-07-2024 ambulatory No Primary Car e Physician Facility[facility] Start: 03-07-2024 End: 03-17-2024 Evaluation and management of inpatient No Primary Care Physician Facility:[facility] Procedures Date Procedure Procedure Detail Performing [...] Comment: Speci men Type: BLOOD SPECIMENOrdering Facility: [facility] Address: [address] [place] [address] Performed By: #### T SCR ####CC MAIN BLOOD BANKCLIA [id number] [address] Start: 12-24-2024 Antibody screen KIMBERL Y SHEETS Comment on above: Order Comment: Speci men Type: BLOOD SPECIMENOrdering Facility: [facility] Address: [address] [place] [address] Performed By: #### T SCR ####CC MAIN BLOOD BANKCLIA [id number] [address] Start: 12-20-2024 Antibody screen KIMBERL Y SHEETS Comment on above: Order Comment: Speci men Type: BLOOD SPECIMENOrdering Facility: [facility] Address: [address] [place] [address] Performed By: #### T SCR ####CC MAIN BLOOD BANKCLIA [id number] [facility] [id number] [id number] [facility] Start: 12-13-2024 Antibody screen JEAN PAUL HOLT Comment on above: Order Comment: Speci men Type: BLOOD SPECIMENOrdering Facility: [facility] Address: [address] [place] [address] Performed By: #### T SCR ####[facility] BLOOD BANKCLIA [id number] [place], [place] [id number] [place] [address] Start: 12-13-2024 Estimated creatinine clearance No Primary [...] RSV Vaccine (1 - 1-dose 75+ series) [facility] Start: 12-13-2029 Lipid panel Lipid Screening [facility] Start: 11-08-2029 Lipid panel Lipid Screening [facility] Start: 07-26-2029 Lipid panel Lipid Screening [facility] Start: 01-05-2028 Diabetes Screening Diabetes Screenin g [facility] Start: 12-22-2027 Diabetes Screening Diabetes Screenin g [facility] Start: 12-20-2027 Diabetes Screening Diabetes Screenin g [facility] Start: 12-19-2027 Diabetes Screening Diabetes Screenin g [facility] Start: 07-26-2027 Diabetes Screening Diabetes Screenin g [facility] Start: 07-09-2027 Diabetes Screening Diabetes Screenil g [facility] Start: 08-30-2025 Screening for malign ant neoplasm of breast Mammogram Screening [facility] Start: 06-25-2025 Annual PCP Team Field Services Analyst donya Disease Visit Annual PCP Team Chronic Disease Visit [facility] Start: 06-25-2025 BP Controlled (<130/80) BP Controlle d (<130/80) [facility] Start: 06-25-2025 Covid-19 Vaccine ( season) Covid-19 Vaccine ( season) [facility] Comment on above: Postponed from 03/04 (Declined at this time) Start: 06-25-2025 Shingrix Vaccine (1 of 2) Foreman grix Vaccine (1 of 2) [facility] Comment on above: Postponed from 09/26 (Declined at this time) Start: 06-25-2025 Urine microalbumin profile DTaP,Tdap,Td Vaccine (1 - Tdap) [facility] Comment on above: Postponed from 09/26 (Declined at this time) Postponed from 04/04 (Declined at this time) Start: 04-02-2025 End: 04-02-2025 Patient encounter procedure 04/02/2025 8:45 AM EDT Office Visit Cardiology [address] [place] [address] Kameron Huizar PA-C [address] [place] [address] ICM Cardiology Comment on above: ICM Start: 04-01-2025 End: 04-01-2025 Patient encounter procedure 04/01/2025 9:40 AM EDT Office Visit Cardiology [address] [place] [address] Miguel Aguayo MD [address] [facility], [address] [place] [address] Hypertension Cardiology Comment on above: Hypertension Start: 03-22-2025 End: 03-22-2025 Patient encounter procedure Vascular Surgery Comment on above: 3 Month Hospital Fol [facility] Up for PAD Start: 03-04-2025 Influenza vaccination Influenza Vacc ine (#1) [facility] Start: 02-14-2025 End: 02-14-2025 Patient encounter procedure 02/14/2025 1:30 PM EDT Appointment Cardiology [address] [place] [id number] OUTPATIENT 4-6W DEVICE CHECK (ICD) Cardiology Comment on above: OUTPATIENT 4-6W DEVICE CHECK (ICD) Start: 01-07-[address] [facility] Start: 01-07-2025 [facility] Start: 01-07-2025 [facility] Start: 12-31-2024 End: 12-31-2024 Nursing evaluation of patient and report Cardiology Comment on above: Dx: Encounter for sc reening for cardiovascular disorders [Z13.6] Start: 12-31-2024 End: 12-31-2024 Patient encounter procedure Nuclear Medicine Comment on above: Dx: Encounter for sc reening for cardiovascular disorders [Z13.6] Start: 12-21-2024 End: 12-21-2024 Patient encounter procedure 12/21/2024 3:00 PM EDT Office Visit Cardiology [address] [place] [address] J31-11 Cardiology Comment on above: J31-11 Start: 12-20-2024 End: 12-20-2024 ambulatory 12/20/2024 4:20 PM EDT [address] [address] Marianela Edwards, DO [address] [place] [address] thyroid med check [facility] Comment on above: thyroid med check Start: 12-19-2024 End: 12-19-2024 Patient encounter procedure Pulmonary Medicine Comment on above: A&O, reg wheelchair, RA, heprin drip, no precautions, transport in//AND A&O, reg wheelchair, RA, heprin drip, no precautions//AND Start: 12-13-2024 Patient discharge [facility] Start: 12-13-2024 Patient discharge [facility] Start: 12-12-2024 Notification of physician [facility] Start: 12-12-2024 Patient education [facility] Start: 12-12-2024 Provision of activit y privileges [facility] Start: 12-12-2024 Pulse taking [facility] Start: 12-12-2024 Taking patient vital signs [facility] Start: 12-12-2024 Wound care [facility] Start: 12-12-2024 [facility] Start: 12-11-2024 Catheterization of vein [facility] Start: 12-11-2024 Notification of physician [facility] Start: 12-11-2024 Preoperative care [facility] Start: 12-11-2024 End: 12-11-2024 [facility] Start: 12-11-2024 Oxygen therapy [facility] Start: 12-11-2024 Following clinical pathway protocol [facility] Start: 12-11-2024 Ambulation without limitation [facility] Start: 12-11-2024 Assessment of risk o f venous thromboembolism [facility] Start: 12-11-2024 Bedrest [facility] Start: 12-11-2024 Continuous pulse oximetry [facility] Start: 12-11-2024 Insertion of cathete r into peripheral vein [facility] Start: 12-11-2024 Measuring intake and output [facility] Start: 12-11-2024 Patient referral to dietitian [facility] Start: 12-11-2024 Providing care accor ding to standard [facility] Start: 12-11-2024 Referral to sales teacher [facility] Start: 12-11-2024 Vital signs measurements [facility] Start: 12-11-2024 [facility] Start: 12-11-2024 Hospital admission, emergency, from emergency room, medical nature [facility] Start: 12-11-2024 Verification routine [facility] Start: 12-11-[address] [facility] Start: 12-11-2024 Continuous pulse oximetry [facility] Start: 12-11-2024 [facility] Start: 12-11-2024 Dual pressure sponta neous ventilation support [facility] Start: 12-10-2024 [facility] Start: 11-16-2024 End: 02-15-2025 Thyrotropin [Units/volume] in Serum or Plasma THYROID STIMULATING HORMONE Lab Routine Hypothyroidism, acquired Expected: 11/16/2024, Expires: 02/15/2025 [facility] Work Phone: Comment on above: Expected: 11/16/2024 , Expires: 02/15/2025 Start: 11-06-2024 End: 11-06-2024 Patient encounter procedure 11/06/2024 9:30 AM EDT Office Visit Vascular Surgery [address] [place] [address] Argenis Nagy, DO [address] [place] [address] follow up after testing Vascular Surgery Comment on above: follow up after test ing Start: 10-19-2024 End: 10-19-2024 Patient encounter procedure 10/19/2024 1:30 PM EDT Appointment Radiology [address] [place] [address] Peripheral vascular disease (HCC) [I73.9] Radiology Comment on above: Peripheral vascular disease (HCC) [I73.9] Start: 09-25-2024 End: 09-25-2024 Patient encounter procedure 09/25/2024 9:00 AM EDT Office Visit Vascular Surgery [address] [place] [address] Argenis Nagy, DO [address] [place], [place] [id number] follow up after testing Vascular Surgery Comment on above: follow up after test ing Start: 09-18-2024 End: 12-18-2024 Thyrotropin [Units/volume] in Serum or Plasma THYROID STIMULATING HORMONE Lab Routine Hypothyroidism, acquired Expected: 09/18/2024, Expires: 12/18/2024 [facility] Work Phone: Comment on above: Expected: 09/18/2024 , Expires: 12/18/2024 Start: 08-30-2024 End: 08-30-2024 Patient encounter procedure Mammogram Comment on above: Encounter for screen ing mammogram for breast cancer [Z12.31] Asymptomatic menopau se [Z78.0] Start: 08-29-2024 End: 08-29-2024 Patient encounter procedure 08/29/2024 2:30 PM EST Office Visit Vasculary Surgery [address] [place] [address] Claudication in peripheral vascular disease (HCC) [I73.9] Vasculary Surgery Comment on above: Claudication in chelsea pheral vascular disease (HCC) [I73.9] Start: 08-29-2024 End: 08-29-2024 Patient encounter procedure 08/29/2024 12:30 PM EST Office Visit Vasculary Surgery [address] [place] [address] Symptomatic varicose veins of both lower extremities [I83.893] Vasculary Surgery Comment on above: Symptomatic varicose veins of both lower extremities [I83.893] Start: 07-31-2024 End: 07-31-2024 Patient encounter procedure 07/31/2024 8:30 AM EST Office Visit Vascular Surgery [address] [place], [place] [address] Argenis Nagy, DO [address] [place] [address] Karen, blockage in arteries in neck. Vascular Surgery Comment on above: Anurizms, blockage i n arteries in neck. Start: 07-26-2024 End: 07-26-2024 Patient encounter procedure 07/26/2024 2:20 PM EST Office Visit [facility] [address] [place] [address] Marianela Edwards DO [address] [place] [address] [facility] 07/10/24 - Stiff neck, Headache, HTN [facility] Comment on above: TCM [facility] 07/10/24 - Stiff neck, Headache, HTN Start: 07-09-2024 End: 07-09-2024 Patient encounter procedure 07/09/2024 1:05 PM EST Appointment Radiology [address] [place] [id number] Asymptomatic menopause [Z78.0] Radiology Comment on above: Asymptomatic menopau se [Z78.0] Start: 07-04-2024 Advance Directive Discussion Advance Directive Discussion [facility] Start: 07-04-2024 Medicare Advantage A nnual Wellness Visit Medicare Advantage Annual Wellness Visit [facility] Start: 06-25-2024 End: 09-24-2024 CBC panel - Blood by Automated count COMPLETE BLOOD COUNT Lab Routine Screening for blood disease Expected: 06/25/2024, Expires: 09/24/2024 [facility] Comment on above: Expected: 06/25/2024 , Expires: 09/24/2024 Start: 06-25-2024 End: 09-24-2024 Comprehensive metabolic 2000 panel - Serum or Plasma COMPREHENSIVE METABOLIC PANEL Lab Routine Screening for endocrine, metabolic and immunity disorder Expected: 06/25/2024, Expires: 09/24/2024 [facility] Comment on above: Expected: 06/25/2024 , Expires: 09/24/2024 Start: 06-25-2024 End: 09-24-2024 Lipid 1996 panel - Serum or Plasma LIPID PANEL BASIC Lab Routine Screening for lipid disorders Expected: 06/25/2024, Expires: 09/24/2024 [facility] Comment on above: Expected: 06/25/2024 , Expires: 09/24/2024 Start: 06-25-2024 End: 09-24-2024 Thyrotropin [Units/volume] in Serum or Plasma THYROID STIMULATING HORMONE Lab Routine Hypothyroidism, acquired Expected: 06/25/2024, Expires: 09/24/2024 [facility] Comment on above: Expected: 06/25/2024 , Expires: 09/24/2024 Start: 2021 Screening for osteoporosis Bone Density Screening [facility] Start: 2016 RSV Vaccine (1 - Ris k 60-74 years 1-dose series) RSV Vaccine (1 - Risk 60-74 years 1-dose series) [facility] Start: 2001 Diabetes Screening Diabetes Screenin g [facility] Start: 2001 Lipid panel Lipid Screening [facility] Start: 2001 Screening for malign ant neoplasm of colon [facility] Start: 1996 Screening for malign ant neoplasm of breast Mammogram Screening [facility] Start: 1974 Anxiety Screening Anxiety Screening [facility] Start: 1974 BP Controlled (<130/80) BP Controlle d (<130/80) [facility] Start: 1974 Depression Screening Depression Scre ening [facility] CARDIAC IMPLANTABLE DEVICE CHECK CARDIAC IMPLANTABLE DEVICE CHECK PACEART Routine 01/03/2025 3:01 PM EDT [facility] Work Phone: End: 10-25-2025 CTA Abdominal, Pelvis and Lower extremity vessels W contrast IV CTA ABD/PEL LOWER EXTREM W IVCON Radiology Routine Peripheral vascular disease (HCC) 1 Occurrences starting 09/25/2024 until 10/25/2025 [facility] Work Phone: Comment on above: 1 Occurrences starti ng 09/25/2024 until 10/25/2025 End: 07-25-2025 DBT Breast - bilateral screening BRAD SCREENING W [facility] Radiology Routine Encounter for screening mammogram for breast cancer 1 Occurrences starting 06/25/2024 until 07/25/2025 [facility] Work Phone: Comment on above: 1 Occurrences starti ng 06/25/2024 until 07/25/2025 DBT Breast - bilater al screening BRAD SCREENING W [facility] Radiology Routine Encounter for screening mammogram for breast cancer 08/30/2024 1:33 PM EST [facility] Work Phone: End: 07-25-2025 DXA Skeletal system.axial Views for bone density DXA-AXIAL SKELETON Radiology Routine Asymptomatic menopause 1 Occurrences starting 06/25/2024 until 07/25/2025 [facility] Comment on above: 1 Occurrences starti ng 06/25/2024 until 07/25/2025 DXA Skeletal system. axial Views for bone density DXA-AXIAL SKELETON Radiology Routine Asymptomatic menopause 08/30/2024 1:57 PM [facility] Work Phone: Im adm prq id subq/i m njxs 1 vaccine IMADM PRQ ID SUBQ/IM NJXS 1 VACC Immunization/Injection Routine Encounter for immunization Ordered: 06/25/2024 [facility] Comment on above: Ordered: 06/25/2024 End: 12-06-2025 NM Heart Perfusion W stress and W radionuclide IV NM CARDIAC PERF STRESS/PHARM Radiology Routine Encounter for screening for cardiovascular disorders 1 Occurrences starting 11/06/2024 until 12/06/2025 [facility] Work Phone: Comment on above: 1 Occurrences starti ng 11/06/2024 until 12/06/2025 Patient referral [facility] Work Phone: Troponin T.cardiac [Mass/volume] in Serum or Plasma by High sensitivity method [facility] End: 07-31-2025 US Vein - bilateral US VENOUS INCOMPETENCY [facility] Lab Routine Symptomatic varicose veins of both lower extremities 1 Occurrences starting 07/31/2024 until 07/31/2025 [facility] Work Phone: Comment on above: 1 Occurrences starti ng 07/31/2024 until 07/31/2025 End: 07-31-2025 US.doppler Extremity arteries - bilateral for physiologic artery study at rest and with exercise PVR LEG W/EXC [facility] Vascular Lab Routine Claudication in peripheral vascular disease (HCC) 1 Occurrences starting 07/31/2024 until 07/31/2025 [facility] Comment on above: 1 Occurrences starti ng 07/31/2024 until 07/31/2025 Immunizations Immunization Date Immunization Notes Care Provider Melvi martinez 06-25-2024 influenza, high dose seasonal, preservative-free Marianela Sheets DO Work Phone: [facility] 06-25-2024 pneumococcal conjuga te (PCV20) vaccine, 20 valent (PREVNAR 20) Marianela Sheets DO Work Phone: [facility] 06-25-2024 pneumococcal Conjuga te, unspecified formulation Marianela Sheets DO Work Phone: [facility] 06-25-2024 influenza virus vacc ine, unspecified formulation Maribel Meyer APRN.CHERRY DIPPER Work Phone: [facility] Payers Date Payer Category Payer Medicare (Managed Care) 1.2. [id number] 2024 Medicaid [id number] 2024 Unknown [facility] MEDICARE ADVANTAGE HMO [id number] 2024-Present [phone] [address] [place] [address] [facility] [id number] 2024 Medicare [id number] 2024 Medicare [id number] 2024 Self-pay 2024 Medicaid [id number] 2024 Medicaid [id number] 2021 Medicare MEDICARE MEDICAR E A AND B [id number] 2021-2024 [address] [address] [place] [address] Medicare [id number] 2021 Medicare [id number] Unknown [id number] 2.16.840.1.677039.3.579.2.4 62 Unknown [id number] 2.16.840.1.301617.3.579.2.4 62 Unknown [id number] 2.16.840.1.967470.3.579.2.4 62 Unknown [id number] 2.16.840.1.817648.3.579.2.4 62 Unknown [id number] 2.16.840.1.767047.3.579.2.4 62 Unknown [id number] 2.16.840.1.672394.3.579.2.4 62 Unknown [id number] 2.16.840.1.769952.3.579.2.4 62 Unknown [id number] 2.16.840.1.074000.3.579.2.4 62 Unknown [id number] 2.16.840.1.736258.3.579.2.4 62 Unknown [id number] 2.16.840.1.697404.3.579.2.4 62 Unknown [id number] 2.16.840.1.680239.3.579.2.4 62 Unknown [id number] 2.16.840.1.641742.3.579.2.4 62 Unknown [id number] 2.16.840.1.890801.3.579.2.4 62 Unknown [id number] 2.16.840.1.375025.3.579.2.4 62 Unknown [id number] 2.16.840.1.559728.3.579.2.4 62 Unknown [id number] 2.16.840.1.134400.3.579.2.4 62 Unknown [id number] 2.16.840.1.668522.3.579.2.4 62 Unknown [id number] 2.16.840.1.319418.3.579.2.4 62 Unknown [id number] 2.16.840.1.938079.3.579.2.4 62 Unknown [id number] 2.16.840.1.879859.3.579.2.4 62 Unknown [id number] 2.16.840.1.590997.3.579.2.4 62 Unknown [id number] 2.16.840.1.842645.3.579.2.4 62 Unknown [id number] 2.16.840.1.066216.3.579.2.4 62 Unknown [id number] 2.16.840.1.811064.3.579.2.4 62 Social History Date Type Detail Facility Start: 06-25-2024 End: 12-17-2024 Tobacco smoking status NHIS Smokes tobacco daily [facility] History of tobacco use Cigarette Smoker [facility] Start: 06-25-2024 End: 12-17-2024 Tobacco use and exposure Smokeless tobacco non-user [facility] Start: 06-25-2024 Alcoholic beverage intake Current drinker of alcohol (finding) [facility] Start: 06-25-2024 End: 07-09-2024 History of Social function [facility] Start: 06-25-2024 End: 07-09-2024 Tobacco use panel [facility] National Score (1-10 0), lower number is lower risk 99 [facility] Start: 06-25-2024 [facility] Start: 1955 Sex assigned at Female [facility] Start: 04-30-2024 Gender identity Identifies as female gender (finding) [facility] Start: 04-30-2024 Sexual orientation Heterosexual (heidi ybarra) [facility] Start: 07-11-2024 End: 01-03-2025 Alcoholic beverage intake Ex-drinker (finding) [facility] Has the [employer], [employer], or water [employer] threatened to shut off services in your home in past 12Mo No [facility] (I/We) worried wheth er (my/our) food would run out before (I/we) got money to buy more. Sometimes true [facility] In the past 12 month s, was there a time when you were not able to pay the mortgage or rent on time? Yes [facility] (I/We) worried wheth er (my/our) food would run out before (I/we) got money to buy more. Never true [facility] Start: 12-17-2024 Tobacco Comment [employer] [facility] Start: 01-07-2025 Tobacco smoking stat us MEIS Ex-smoker (finding) [facility] Medical Equipment Procedure Code Equipment Code Equipment Origin al Text Equipment Identifier Dates brain aneurysm coil FDA Start : 02-23-2022 brain aneurysm coil FDA Start : 02-23-2022 [id number] V r [id number] Start: 01-03-2025 Other [id number] [employer] [id number] Start: 01-03-2025 brain aneurysm coil FDA Start : 02-23-2022 Goals Date Patient Goal Desired Activity /State Personal health goal Functional Status Date Assessment Result Facility 12-15-2024 Are you deaf, or do you have serious difficulty hearing No 12/15/2024 6:27 PM Ana Buchanan, TESHA No [facility] 12-15-2024 Are you blind, or do you have serious difficulty seeing, even when wearing glasses No 12/15/2024 6:27 PM Ana Buchanan, TESHA No [facility] 12-15-2024 Do you have serious difficulty walking or climbing stairs No 12/15/2024 6:27 PM Ana Buchanan, TESHA No [facility] 12-15-2024 Do you have difficul ty dressing or bathing No 12/15/2024 6:27 PM Ana Buchanan, TESHA No [facility] 12-15-2024 Because of a physica l, mental, or emotional condition, do you have difficulty doing errands alone such as visiting a physician's office or shopping No 12/15/2024 6:27 PM Ana Buchanan, TESHA No [facility] 12-13-2024 Functional status Ambulates;Bath room Privilege;Back to bed [facility] Work Phone: Mental Status Date Assessment Result Facility 01-07-2025 Cognitive function Voice/Name [facility] Work Phone: 12-15-2024 Because of a physica l, mental, or emotional condition, do you have serious difficulty concentrating, remembering, or making decisions No 12/15/2024 6:27 PM EDT Ana Villa, RN No [facility] 12-13-2024 Cognitive function Voice/Name [facility] Work Phone: Clinical Notes 03-17-2024 to 01-07-2025 Telephone Encounter - Maribel Meyer APRN.CHERRY DIPPER - 01/06/2025 5:13 PM EDTTelephone Encounter - Maribel Meyer APRN.CNP - 01/06/2025 5:13 PM EDTCSera cervantes DMD - 12/18/2024 11:31 AM EDT Note Date & Type Note Facility 01-07-2025 Radiology Diagnostic study note [facility] Imaging Services [address] [place], [place] [address] CTA Chest W/WO Contrast MR#: [id number] Acct: [id number] Name: MAUREEN ANSARI ALYSHA Rep #: [id number] : 1955 F 69 From: Catalina Reina MD PCP: Dr. Marianela Edwards, DO Status: RE G ER Study:CTA Chest W/WO Contrast Date of Exam: 01/07/25 Exam# [id number] Ordering Dr: Michael Durham MD PROCEDURE: CTA [...] No pneumothorax. MEDIASTINUM: Prominent mediastinal lymph nodes. Htfz-lb-dltslkbg cardiomegaly. Trace pericardial effusion. Extensive coronary atherosclerosis/stents. [...] Moderate pulmonary emphysema. Mild bibasilar pleural effusions. Sawh-qf-gjzfycdb cardiomegaly and trace pericardial effusion. Reading Location: [facility] CC: Dr. Edouard Durham MD; Dr. Marianela Edwards DO ~ Laboratory Tester: Signed [facility] 01-07-2025 Note [facility] 01-07-2025 Radiology Diagnostic study note [facility] Imaging Services [address] [place] [address] Chest 1 View (Portable) MR#: [id number] Acct: [id number] Name: MAUREEN ANSARI ALYSHA Rep #: [id number] : [id number] F [id number] From: Graeme Zamorano MD PCP: Dr. Marianela Edwards DO Status: WY E ER Study:Chest 1 View (Portable) Date of Exam: 01/07/25 Exam# [id number] Ordering Dr: Michael Durham MD PROCEDURE: CHEST [...] of the left costophrenic angle. Reading Location: [place] [address] CC: Dr. Edouard Durham MD; Dr. Marianela Edwards, DO ~ Laboratory Tester: Signed [facility] 01-07-2025 Note [facility] 01-06-2025 Telephone encount er Note [facility] After Hours On-Call January 06, 2025 Physician: Dr. Lin Paged by acoustical tile drill press operator. Attempted to call the pt back, no answer, LM TANIKA Arcos [facility] On-Call [facility] Work Phone: 01-06-2025 Miscellaneous Notes Formattin g of this note might be different from the original. [facility] After Hours On-Call January 06, 2025 Physician: Dr. Lin Paged by acoustical tile drill press operator. Attempted to call the pt back, no answer, LM TANIKA Arcos [facility] On-Call documented in this encounter [facility] 01-03-2025 Note [facility] 01-03-2025 Note [facility] 01-02-2025 Note [facility] 01-02-2025 Note [facility] 01-02-2025 Note [facility] 01-01-2025 Note [facility] 01-01-2025 Note [facility] 12-31-2024 Note [facility] 12-30-2024 Note [facility] 12-30-2024 Note [facility] 12-29-2024 Note [facility] 12-29-2024 Note [facility] 12-29-2024 Note [facility] 12-28-2024 Note [facility] 12-28-2024 Note [facility] 12-27-2024 Note [facility] 12-26-2024 Note [facility] 12-25-2024 Note [facility] 12-24-2024 Note [facility] 12-24-2024 Note [facility] 12-23-2024 Note [facility] 12-22-2024 Note [facility] 12-22-2024 Note [facility] 12-21-2024 Note [facility] [facility] 12-20-2024 Note [facility] 12-20-2024 Note [facility] 12-19-2024 Note [facility] 12-19-2024 Note [facility] 12-19-2024 Note [facility] 12-19-2024 Note [facility] 12-18-2024 Note HNO ID: [id number] Author: SERA MILTON DMD Service: ? Author Type: Dentist Type: Progress Notes Filed: 12/18/2024 11:32 Note Text: See inpatient note for this encounter on 12/18/2024. Sera Milton DMD [facility] 12-18-2024 History of Presen t illness Narrative See inpatient note for this encounter on 12/18/2024. Sera Milton DMD documented in this encounter [facility] 12-18-2024 Note [facility] 12-18-2024 Note [facility] 12-17-2024 Note [facility] 12-16-2024 Note [facility] 12-16-2024 Note HNO ID: [id number] Author: ANITA SPARKS RN Service: Nursing Author Type: Registered Nurse Type: Nursing Progress Note Filed: 12/16/2024 01:35 Note Text: 2122 STAT EKG was completed, MD Garcia Gonsalez was notified. [facility] 12-15-2024 Note HNO ID: [id number] Author: ANITA SPARKS RN Service: Nursing Author Type: Registered Nurse Type: Nursing Progress Note Filed: 12/15/2024 21:39 Note Text: [facility] 12-15-2024 Note HNO ID: [id number] Author: ANA VILLA, TESHA Service: Nursing Author Type: Registered Nurse Type: Nursing Progress Note Filed: 12/15/2024 14:35 Note Text: Report called to [facility] RN Arelis for Pt to go to J71- Bed 9. Will call back with an ETA. [facility] 12-15-2024 Note HNO ID: [id number] Author: GRIFFIN VAUGHAN MD Service: Hospital Medicine Author Type: Resident Type: Progress Notes Filed: 12/18/2024 07:17 Note Text: Attestation signed by Griffin Vaughan MD at 12/18/2024 7:17 AM [facility] HOSPITAL MEDICINE SERVICE ATTENDING ATTESTATION: I saw and evaluated the patient on rounds on 12/15/24. Discussed case with the medicine team and agree with resident's findings and plan as documented in the resident's note. Griffin Vaughan MD . [facility] [place] PATIENT NAME: Maureen Barron REASON FOR ADMISSION/CONSULT: NSTEMI (non-ST elevated myocardial infarction) ([facility]) DATE: December 15, 2024 LOS: 2 Subjective HPI Maureen Barron is a 69 year old female with PMHx HTN, ICA occlusion (s/p endarterectomy), cerebral aneurysm (s/p repair 2019), PAD, HLD, polysubstance use disorder who presented to [facility] on 12/13/2024 with c/o SOB after being evaluated at [facility]. She was transferred to [facility] from [place], where she presented with shortness of breath and chest pain, initially on BiPAP. Patient was found to have NSTEMI (HS Trop >1900 per documents sent from [place]). She was started on a Hep gtt. [...] from ICU on 12/14/2024. [place] [facility] [place] / management. ROS quite limited as pt perseverates on her neighbors cooking meth below her. She is intermittently redirectable. Patient moved in with her sister from [place] ~ 1 year ago. She states for [...] UGLUC 4+* U (more content not included)... [facility] 12-14-2024 Note HNO ID: [id number] Author: GANGA RACHEL DO Service: Cardiovascular Medicine Author Type: Resident Type: Plan of Care Filed: 12/14/2024 15:53 Note Text: Transfer request to [facility] initiated. Patient accepted by Dr. Milan without conference. [facility] 12-14-2024 Note HNO ID: [id number] Author: BELINDA AVALOS PA-C Service: Cardiovascular Surgery Author Type: Physician Full Stack Python Developer Type: Plan of Care Filed: 12/14/2024 15:33 Note Text: 12/14/[address] Bradshaw. STS score 20% for CABG/ MVR. Elevated due to tobacco use, acute on chronic heart failure, PAD, and CVD (including carotid stenosis). Decision made to transfer to [facility]. This was discussed with CVICU team, who will initiate transfer. Belinda Yanez PA-C Pager #[phone] [facility] 12-14-2024 Note HNO ID: [id number] Author: ?, ?, ? Service: ? Author Type: Block Hand Type: Plan of Care Filed: 12/14/2024 14:21 Note Text: PHARMACY MEDICATION REVIEW Patient Name: Maureen Barron : 1955 The following medications were updated within the AUDIO ENGINEER medication list: Medications ADDED to AUDIO ENGINEER medication list Medications CHANGED on AUDIO ENGINEER medication list Medications REMOVED from AUDIO ENGINEER medication list aspirin, enteric coated (ASPIRIN, ENTERIC COATED) 81 mg EC tablet Adjust Sig - Block E-Cancel Garlic 1,500 mg cap Adjust Sig - Block E-Cancel Additional comments: I was able to talk with pt. about her home medications. She states she takes the 2 medications recorded below on the AUDIO ENGINEER list. She also states she has not started her monthly injections of Boniva yet. I have removed 2 medications from the AUDIO ENGINEER list (see above). Not taken per pt. I have not added or changed any other home medications. Pt. states she uses [facility]. Medication history completed by historian. No nursing follow up needed. The below information represents the best possible medication history: Yes Medication history completed by: Block Hand: Taiwo Bhandari (Auto Dealer) Source of history: Patient: Reliability of source: Appears reliable, clearly identified: Medication name, Medication dose, Medication route, and Medication frequency and Pharmacy records: [facility] Medication nonadherence identified: No barriers noted Reconciliation completed: No, pharmacist not yet reviewed Patient interested in Bedside Delivery Services or using [facility] OP Pharmacy at discharge? No Preferred outpatient pharmacy: [id number] [place] [address] [address] [phone] [facility] [id number] Allergies: No Known Allergies Prior to Admission [...] once daily. Facility-Administered Medications: None Taiwo Bhandari (Auto Dealer) phone [phone] 12/14/2024 [facility] 12-14-2024 Note HNO ID: [id number] Author: IAN RODRIGUEZ LSW Service: Care Management Author Type: Shirt Cleaner Type: Care Mgt Progress Note Filed: 12/14/2024 [...] No - Do you ever drink an eye-color checker in the morning to relieve shakes? No SW met with patient to discuss substance abuse, patient positive for benzo's. Patient admits to using drugs and alcohols. Patient uses alcohol and marijuana. Patient denies any issues and declined any resources. SIGNATURE: ALTON Mtz PATIENT NAME: Maureen Barron DATE: December 14, 2024 TIME: 1:19 PM [facility] 12-14-2024 Note HNO ID: [id number] Author: LOGAN ALVARADO MD Service: Cardiovascular Medicine [...] C s/p treatment Who was admitted to [facility] ~ 12/11 for acute hypoxic respiratory failure secondary to new onset HFrEF exacerbation, also in the setting of NSTEMI with multivessel disease and severe 4+ MR. Patient was transferred to [facility] on 12/13 for further evaluation. INTERVAL EVENTS [...] LV Ejection Fra (more content not included)... [facility] 12-13-2024 Discharge summary Note Date/Time December 13, 2024 2:27pm [facility] Medical Records Department [address] [place] [address] Discharge Summary 12/13/24 1418 MR#: [id number] Acct: [id number] Name: MAUREEN ANSARI Rep #:[id number] : 1955 69 From: Sukhi Forbes DO [...] I would strongly recommend psychiatric consult at [facility]. She does not require pink slip at this time, but her paranoia is profound and could potentially impact her long-term medical care. Plan Chronic conditions: * PAD: s/p CEA. on cilostazol. * tobacco abuse: complicates care and recovery * anxiety: add PRN lorazepam. VTE prophylaxis: anticoagulated. Disposition: awaiting on bed availability at [facility]. Medications at Discharge Home Medications amlodipine 10 [...] recommended transfer. Patient was accepted over at [facility] and will be discharged there today. Patient's [...] 73.1 H, Lymph % (Auto) 15.0 L, [place] % (Auto) 7.6, Eos % (Auto) 2.9, [...] Shawn not ordered:: Hypotension Done w/ Acute CT measure.: Yes Documented LVEF (%): 45 Ischemic [...] 12/11/24 02:59 Primary Reason for Your Visit: CT.CHF. Attending Provider: Sukhi Forbes Primary Care Provider: [...] Care Hospital Charges/Coding Visit Charges Inpatient E&M: 93391 Disch Hosp >30min 12/13/24 1427 <Electronically signed by Sukhi Forbes DO> Cosigner Signature (if applicable): CC: Dr. Sukhi Forbes DO; Dr. Marianela Edwards DO~ Signed [facility] Work Phone: 1(331) 906-829206-12-2025 Progress note Author Sukhi Forbes [facility] Note Date/Time December 13, 2024 1:31 pm [facility] Medical Records Department [address] [place] [address] Progress Note - Hospitalist 12/13/24 0705 MR#: [id number] Acct: [id number] Name: MAUREEN ANSARI Rep #:6 : 1955 [...] 73.1 H, Lymph % (Auto) 15.0 L, [place] % (Auto) 7.6, Eos % (Auto) 2.9, [...] I would strongly recommend psychiatric consult at [facility]. She does not require pink slip at this time, but her paranoia is profound and could potentially impact her long-term medical care. PLAN: Plan Chronic conditions: * PAD: s/p CEA. on cilostazol. * tobacco abuse: complicates care and recovery * anxiety: add PRN lorazepam. VTE prophylaxis: anticoagulated. Disposition: awaiting on bed availability at [facility]. Charges/Coding Visit Charges Inpatient E&M: 17242 Subs Hosp L2 12/13/24 1331 <Electronically signed by Sukhi Forbes DO> Cosigner Signature (if applicable): CC: ~ Signed [facility] Work Phone: 1(760) 642-858906-12-2025 Discharge summary [facility] Medical Records Department [address] [place] [address] Discharge Summary 12/13/24 1418 MR#: [id number] Acct: [id number] Name: MAUREEN ANSARI ALYSHA Rep #:[id number] : 1955 69 From: Sukhi Forbes DO [...] I would strongly recommend psychiatric consult at [facility]. She does not require pink slip at this time, but her paranoia is profoundand could potentially impact her long- term medical care. Plan Chronic conditions: * PAD: s/p CEA. on cilostazol. * tobacco abuse: complicates care and recovery * anxiety: add PRN lorazepam. VTE prophylaxis: anticoagulated. Disposition: awaiting on bed availability at [facility]. Medications at Discharge Home Medications amlodipine 10 [...] recommended transfer. [facility]. Patient's course [...] 73.1 H, Lymph % (Auto) 15.0 L, [place] % (Auto) 7.6, Eos % (Auto) 2.9, [...] Shawn not ordered:: Hypotension Done w/ Acute CT measure.: Yes Documented LVEF (%): 45 Ischemic [...] 12/11/24 02:59 Primary Reason for Your Visit: CT.CHF. Attending Provider: Sukhi Forbes Primary Care Provider: [...] Care Hospital Charges/Coding Visit Charges Inpatient E&M: 99477 Disch Hosp >30min 12/13/24 1427 Cosigner Signature (if applicable): CC: Dr. Sukhi Forbes DO; Dr. Marianela Edwards DO~ Signed [facility]06-12-2025 [facility] Medical Records Department [address] [place] [address] Discharge Summary 12/13/24 1418 MR#: [id number] Acct: [id number] Name: MAUREEN ANSARI ALYSHA Rep #: [id number] : 1955 69 From: Sukhi Forbes DO [...] I would strongly recommend psychiatric consult at [facility]. She does not require pink slip at this time, but her paranoia is profound and could potentially impact her long-term medical care. Plan Chronic conditions: * PAD: s/p CEA. on cilostazol. * tobacco abuse: complicates care and recovery * anxiety: add PRN lorazepam. VTE prophylaxis: anticoagulated. Disposition: awaiting on bed availability at [facility]. Medications at Discharge Home Medications amlodipine 10 [...] recommended transfer. Patient was accepted over at [facility] and will be discharged there today. Patient's [...] Body Mass Index (BMI) (more content not included)...[facility] 12-13-[address] [facility] Medical Records Department [address] [place] [address] Progress Note - Hospitalist 12/13/24 0705 MR#: [id number] Acct: [id number] Name: MAUREEN ANSARI ALYSHA Rep #:[id number] : 1955 69 From: Sukhi Forbes DO [...] 73.1 H, Lymph % (Auto) 15.0 L, [place] % (Auto) 7.6, Eos % (Auto) 2.9, [...] I would strongly recommend psychiatric consult at [facility]. She does not require pink slip at this time, but her paranoia is profound and could potentially impact her long-term medical care. PLAN: Plan Chronic conditions: * PAD: s/p CEA. on cilostazol. * tobacco abuse: complicates care and recovery * anxiety: add PRN lorazepam. VTE prophylaxis: anticoagulated. Disposition: awaiting on bed availability at [facility]. Charges/Coding Visit Charges Inpatient E&M: 64496 Subs Hosp L2 12/13/24 1331 Cosigner Signature (if applicable): CC: ~ Signed [facility]06-12-2025 Progress note Author Jean Paul Holt [facility] Note Date/Time December 13, 2024 8:53 am [facility] Medical Records Department [address] [place] [address] Progress Note - Cardiology 12/13/24 0844 MR#: [id number] Acct: [id number] Name: MAUREEN ANSARI ALYSHA Rep #:[id number] : 1955 69 From: Jean Paul Holt MD PCP: Dr. Marianela Edwards, DO Status:AD M IN Location: ICU ICU09-1 Subjective Subjective Patient resting comfortably in the bed. She has yet to be transferred to [facility] for further evaluation of her mitral regurgitation and coronary disease. I did speak in detail with a sales teacher there they acceptedher to be at transferred [...] 73.1 H, Lymph % (Auto) 15.0 L, [place] % (Auto) 7.6, Eos % (Auto) 2.9, [...] 73.1 H, Lymph % (Auto) 15.0 L, [place] % (Auto) 7.6, Eos % (Auto) 2.9, [...] had basilar artery aneurysm treated percutaneously in [place]. She has had subsequent MRIs since then. The patient is followed by the vascular team at the [facility]. (5) Congestive heart failure: QUALIFIERS: Heart [...] patient has been accepted for transfer to [facility] for further evaluation and treatment. I discussed the details of her case with the sales teacher on-call last night they agreed to accept her to their CVICU unit. PLAN: Plan 1. Continue IV heparin. 2. Continue with current diuretic therapy. 3. Continue other medical therapy as indicated by the hospitalist team. 4. Await transfer to [facility] when a bed is available. Charges/Coding Visit Charges Inpatient E&M: 76536 Subs Hosp L3 12/13/24 0853 <Electronically signed by Jean Paul Holt MD> Cosigner Signature (if applicable): CC: ~ Signed [facility] Work Phone: 1(144) 228-236106-12-[address] [facility] Medical Records Department [address] [place] [address] Progress Note - Cardiology 12/13/24 0844 MR#: [id number] Acct: [id number] Name: MAUREEN ANSARI Rep #:[id number] : 1955 69 From: Jean Paul Holt MD PCP: Dr. Marianela Edwards, DO Status:AD M IN Location: ICU ICU09-1 Subjective Subjective Patient resting comfortably in the bed. She has yet to be transferred to [facility] for further evaluation of her mitral regurgitation and coronary disease. I did speak in detail with a sales teacher there they acceptedher to be at transferred [...] 73.1 H, Lymph % (Auto) 15.0 L, [place] % (Auto) 7.6, Eos % (Auto) 2.9, [...] 73.1 H, Lymph % (Auto) 15.0 L, [place] % (Auto) 7.6, Eos % (Auto) 2.9, [...] had basilar artery aneurysm treated percutaneously in [place]. She has had subsequent MRIs since then. The patient is followed by the vascular team at the [facility]. (5) Congestive heart failure: QUALIFIERS: Heart [...] patient has been accepted for transfer to [facility] for further evaluation and treatment. I discussed the details of her case with the sales teacher on-call last night they agreed to accept her to their CVICU unit. PLAN: Plan 1. Continue IV heparin. 2. Continue with current diuretic therapy. 3. Continue other medical therapy as indicated by the hospitalist team. 4. Await transfer to [facility] when a bed is available. Charges/Coding Visit Charges Inpatient E&M: 13268 Subs Hosp L3 12/13/24 0853 Cosigner Signature (if applicable): CC: ~ Signed [facility]06-11-2025 Progress note Author Jean Paul Holt [facility] Note Date/Time December 12, 2024 4:[address] [facility] Medical Records Department [address] [place] [address] Progress Note - Cardiology 12/12/24923 MR#: [id number] Acct: [id number] Name: MAUREEN ANSARI ALYSHA Rep #:[id number] : 1955 69 From: Jean Paul Holt [...] appears to be lateral hypokinesis on the LMOAS ventriculogram. The ejection fraction is estimated at 30- 35%. The patient will be referred for surgical heart team approach as the best optionof treatment. The patient has what appears to be pulmonary insufficiency I do not have PFTs that she has recently moved here from [place] she is not aware that she has had any previous pulmonary function testing she does have an 65-08-uijr-year smoking history. The patient also has a history of carotid endarterectomy on the right side and a totally occluded left carotid artery. This has been followed by the [facility] vascular team. I am reaching out to Dr. Freedman at [facility]. (3) CHF exacerbation: QUALIFIERS: Heart failure type: [...] under #2. Charges/Coding Visit Charges Inpatient E&M: 27282 Subs Hosp L3 12/12/24 1608 <Electronically signed by Jean Paul Holt MD> Cosigner Signature (if applicable): CC: ~ Signed [facility] Work Phone: 1(332) 250-945406-11-[address] [facility] Medical Records Department [address] [place] [address] Progress Note - Cardiology 12/12/24923 MR#: [id number] Acct: [id number] Name: MAUREEN ANSARI ALYSHA Rep #:[id number] : 1955 69 From: Jean Paul Holt [...] PFTs that she has recently movedhere from [place] she is not aware that she has had any previous pulmonary function testing she does have an 46-70-mktu-year smoking history. The patient also has a history of carotid endarterectomy on the right side and a totally occluded left carotid artery. This has been followed by the [facility] vascular team. I am reaching out to Dr. Freedman at [facility]. (3) CHF exacerbation: QUALIFIERS: Heart failure type: [...] under #2. Charges/Coding Visit Charges Inpatient E&M: 32703 Subs Hosp L3 12/12/24 1608 Cosigner Signature (if applicable): CC: ~ Signed [facility]06-11-2025 Progress note Author Sukhi Forbes [facility] Note Date/Time December 12, 2024 2:04 pm [facility] Medical Records Department [address] [place] [address] Progress Note - Hospitalist 12/12/24 5730 MR#: [id number] Acct: [id number] Name: MAUREEN ANSARI ALYSHA Rep #:[id number] : 1955 69 From: Sukhi Forbes DO [...] lab concerns. Charges/Coding Visit Charges Inpatient E&M: 66486 Subs Hosp L3 12/12/24 1408 <Electronically signed by Sukhi Forbes DO> Cosigner Signature (if applicable): CC: ~ Signed [facility] Work Phone: 1(399) 411-793306-11-[address] [facility] Medical Records Department [address] [place] [address] Progress Note - Hospitalist 12/12/24 0750 MR#: [id number] Acct: [id number] Name: MAUREEN ANSARI ALYSHA Rep #:[id number] : 1955 69 From: Sukhi Forbes DO [...] lab concerns. Charges/Coding Visit Charges Inpatient E&M: 75547 [facility] Hosp L3 12/12/24 1404 Cosigner Signature (if applicable): CC: ~ Signed [facility]06-10-2025 Progress note Author Jean Paul Holt [facility] Note Date/Time December 11, 2024 4:[address] [facility] Medical Records Department [address] [place] [address] Progress Note - Cardiology 12/11/24 1630 MR#: [id number] Acct: [id number] Name: MAUREEN ANSARI ALYSHA Rep #:[id number] : 1955 69 From: Jean Paul Holt [...] % (Auto) 66.3, Lymph % (Auto) 16.5 L,[place]ern[place] % (Auto) 11.4 H, Eos % (Auto) [...] (Auto) 69.7, Lymph % (Auto) 16.7 L, [place] % (Auto) 9.6, Eos % (Auto) 2.9, [...] (Auto) 66.3, Lymph % (Auto) 16.5 L, [place] % (Auto) 11.4 H, Eos % (Auto) [...] (Auto) 69.7, Lymph % (Auto) 16.7 L, [place] % (Auto) 9.6, Eos % (Auto) 2.9, [...] CHF changes. Follow-up is advised Reading Location[facility] Chest CTA 12/11/24 00:48 IMPRESSION: No CT [...] hypertrophy of the adrenal glands. Reading Location[facility] Echocardiogram 12/11/24 05:55 Interpretation Summary Mild concentric [...] Cosigner Signature (if applicable): CC: ~ Signed [facility] Work Phone: 1(777) 994-353106-10-2025 Progress note [facility] Medical Records Department [address] [place] [address] Progress Note - Cardiology 12/11/24 1630 MR#: [id number] Acct: [id number] Name: MAUREEN ANSARI ALYSHA Rep #:[id number] : 1955 69 From: Jean Paul Holt [...] Neut %(Auto) 66.3, Lymph % (Auto) 16.5 L,[place] % (Auto) 11.4 H, Eos % (Auto) [...] (Auto) 69.7, Lymph % (Auto) 16.7 L, [place] % (Auto) 9.6, Eos % (Auto) 2.9, [...] (Auto) 66.3, Lymph % (Auto) 16.5 L, [place] % (Auto) 11.4 H, Eos % (Auto) 3.1, Baso% (Auto) 1.0, Absolute Neuts (auto) 7.5, Nucleated RBC % 0, Jodnib407, Potassium 3.9, Chloride 106, Carbon Dioxide 18.3 [...] (Auto) 69.7, Lymph % (Auto) 16.7 L, [place] % (Auto)9.6, Eos % (Auto) 2.9, Baso [...] CHF changes. Follow-up is advised Reading Location[facility] Chest CTA 12/11/24 00:48 IMPRESSION: No CT [...] hypertrophy of the adrenal glands. Reading Location[facility] Echocardiogram 12/11/24 05:55 Interpretation Summary Mild concentric [...] Cosigner Signature (if applicable): CC: ~ Signed [facility]06-10-2025 Progress note Author Sukhi Forbes [facility] Note Date/Time December 11, 2024 2:08 pm [facility] Medical Records Department [address] [place] [address] Progress Note - Hospitalist 12/11/24 1353 MR#: [id number] Acct: [id number] Name: MINO HAYSMAUREEN Rep #:[id number] : 1955 69 From: Sukhi Forbes DO [...] % (Auto) 66.3, Lymph % (Auto) 16.5 L,[place] % (Auto) 11.4 H, Eos % (Auto) [...] (Auto) 69.7, Lymph % (Auto) 16.7 L, [place] % (Auto) 9.6, Eos % (Auto) 2.9, [...] her permission. Charges/Coding Visit Charges Inpatient E&M: 75047 Subs Hosp L2 12/11/24 1403 <Electronically signed by Sukhi Forbes DO> Cosigner Signature (if applicable): CC: ~ Signed [facility] Work Phone: 1(679) 570-941906-10-2025 Consult note Author Jean Paul Holt [facility] Note Date/Time December 11, 2024 1:30 pm [facility] Medical Records Department [address] [place] [address] Consultation - Cardiology 12/11/24 0957 MR#: [id number] Acct: [id number] Name: MAUREEN ANSARI Rep #:[id number] : 1955 69 From: Jean Paul Holt [...] obstructed. She underwent rightinternal carotid endarterectomy in [place]. She denies any history of CVA orTIA. 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 The patient did undergo MRI recently by the [facility] since moving to [place]. (3) Elevated troponin: PLAN: Patient's troponins have [...] She did undergo an MRI recently in [place] and was cleared by her previous surgeon in [place] to have this done. The patient came [...] the past. The patient has lived in [place] until just recently moving to [place]. She has been evaluated and treated by the [facility]. The patient recently has gone through a divorce and that was the reason for moving to [place] and she was essentially homeless in [place]. She is asking her made overtures that she thought she may have been poisoned at some point in time recently. [facility] Medical History Carpal tunnel syndrome on right [...] 13% Risk Charges/Coding Visit Charges Inpatient E&M: 78126 Init Hosp L3 Objective Data Vital Signs: [...] % (Auto) 66.3, Lymph % (Auto) 16.5 L,[place] % (Auto) 11.4 H, Eos % (Auto) [...] (Auto) 69.7, Lymph % (Auto) 16.7 L, [place] % (Auto) 9.6, Eos % (Auto) 2.9, [...] (Auto) 66.3, Lymph % (Auto) 16.5 L, [place] % (Auto) 11.4 H, Eos % (Auto) [...] (Auto) 69.7, Lymph % (Auto) 16.7 L, [place] % (Auto) 9.6, Eos % (Auto) 2.9, [...] CHF changes. Follow-up is advised Reading Location: [place] [address] Chest CTA 12/11/24 00:48 IMPRESSION: No CT [...] hypertrophy of the adrenal glands. Reading Location: [place] [address] 12/11/24 1013 <Electronically signed by Jean Paul [...] cc: Dr. Marianela Edwards DO ~* Signed [facility] Work Phone: 1(672) 446-524406-10-[address] [facility] Medical Records Department [address] [place] [address] Progress Note - Hospitalist 12/11/24 1353 MR#: [id number] Acct: [id number] Name: MAUREEN ANSARI Rep #:[id number] : 1955 69 From: Sukhi Forbes DO [...] Neut %(Auto) 66.3, Lymph % (Auto) 16.5 L,[place] % (Auto) 11.4 H, Eos % (Auto) [...] (Auto) 69.7, Lymph % (Auto) 16.7 L, [place] % (Auto) 9.6, Eos % (Auto) 2.9, [...] her permission. Charges/Coding Visit Charges Inpatient E&M: 73415 Subs Hosp L2 12/11/24 6158 Cosigner Signature (if applicable): CC: ~ Signed [facility]06-10-2025 Consult note [facility] Medical Records Department [address] [place] [address] Consultation - Cardiology 12/11/24 0957 MR#: [id number] Acct: [id number] Name: MAUREEN ANSARI ALYSHA Rep #:[id number] : 1955 69 From: Jean Paul Holt [...] obstructed. She underwent rightinternal carotid endarterectomy in [place]. She denies any history of CVA orTIA. 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 The patient did undergo MRI recently by the [facility] since moving to [place]. (3) Elevated troponin: PLAN: Patient's troponins have [...] She did undergo an MRI recently in [place] and was cleared by her previous surgeon [...] the past. The patient has lived in [place] until just recently moving to [place]. She has been evaluated and treated by the [facility]. The patient recently has gone through a divorce and that was the reason for moving to [place] and she was essentially homeless in [place]. She is asking her made overtures that she thought she may have been poisoned at some point in time recently. [facility] Medical History Carpal tunnel syndrome on right [...] Marker: Yes SANIYA Risk Stratification Score: 3 SANYIA % Risk: 13% Risk Charges/Coding Visit Charges Inpatient E&M: 91416 Init Hosp L3 Objective Data Vital Signs: [...] Neut %(Auto) 66.3, Lymph % (Auto) 16.5 L,[place] % (Auto) 11.4 H, Eos % (Auto) [...] (Auto) 69.7, Lymph % (Auto) 16.7 L, [place] % (Auto) 9.6, Eos % (Auto) 2.9, [...] (Auto) 66.3, Lymph % (Auto) 16.5 L, [place] % (Auto) 11.4 H, Eos % (Auto) 3.1, Baso% (Auto) 1.0, Absolute Neuts (auto) 7.5, Nucleated RBC % 0, [id number], Potassium 3.9, Chloride 106, Carbon Dioxide 18.3 [...] (Auto) 69.7, Lymph % (Auto) 16.7 L, [place] % (Auto)9.6, Eos % (Auto) 2.9, Baso [...] CHF changes. Follow-up is advised Reading Location: [place] [address] Chest CTA 12/11/24 00:48 IMPRESSION: No CT [...] hypertrophy of the adrenal glands. Reading Location: [place] [address] 12/11/24 1013 Cosigner Signature (if applicable): CC: [...] cc: Dr. Marianela Edwards DO ~* Signed [facility]06-10-2025 Discharge summary Author Isaac Araujo [facility] Note Date/Time December 11, 2024 3:22 am [facility] Medical Records Department [address] [place] [address] Emergency Department Summary 12/10/24 MR#: [id number] Acct: [id number] Name: MAUREEN ANSARI Rep #:[id number] : 1955 69 From: Isaac Araujo DO [...] of recent travel, surgeries, DVT or PE [facility] Medical History (Updated 12/11/24 @ 03:06 by [...] following commands knew that she was at [facility] the year is 2024 Skin: Warm, [...] noted. Called and discussed case with on-call sales teacher Dr. Holt who states that he would [...] (Auto) 66.3 Lymph % (Auto) 16.5 L [place] % (Auto) 11.4 H Eos % (Auto) [...] CHF changes. Follow-up is advised [place] [facility] [place] [facility] Chest CTA 12/11/24 00:48 IMPRESSION: No CT [...] hypertrophy of the adrenal glands. Reading Location: [place] [address] Discharge Plan Triage Chief Complaint: Shortness of [...] Care Physician,No Primary [Non-Staff] - Print Language: [place] Islander Disposition Disposition: Acute Care Hospital [facility] What to do if you have Problems For any increased pain, shortness of breath, bleeding, nausea or vomiting, chestpain, or any unexpected problems, contact your Primary Care Provider. Call [facility] ([phone]) or report to the closest Emergency Room. Call 911 if necessary. 12/11/24 0306 <Electronically signed by Isaac Araujo DO> Cosigner Signature (if applicable): CC: Dr. Marianela Edwards DO ~ Signed [facility] Work Phone: 1(750) 302-463806-10-2025 History and physical note Author Francis Bojorquez [facility] Note Date/Time December 11, 2024 2:[address] [facility] Medical Records Department [address] [place] [address] History & Physical Exam 12/11/24 0233 MR#: [id number] Acct: [id number] Name: MAUREEN ANSARI ALYSHA Rep #:[id number] : 1955 69 From: Francis Bojorquez MD [...] a smoker. She had been living in [place] and moved here to be near her [...] for further management of congestive heart failure. [facility] Medical History (Updated 12/11/24 @ 02:55 by [...] % (Auto) 66.3, Lymph % (Auto) 16.5 L,[place] % (Auto) 11.4 H, Eos % (Auto) [...] CHF changes. Follow-up is advised Reading Location: [place] [address] Chest CTA 12/11/24 00:48 IMPRESSION: No CT [...] hypertrophy of the adrenal glands. Reading Location: [place] [address] Assessment & Plan Assessment/Plan (1) Congestive heart [...] Smoking?cessation encouraged Charges/Coding Visit Charges Inpatient E&M: 70394 Init Hosp L3 12/11/24258 <Electronically signed by Francis Bojorquez MD> Cosigner Signature (if applicable): CC: Dr. Marianela Edwards DO; Dr. Francis Bojorquez MD~ Signed [facility] Work Phone: 1(222) 648-607506-10-2025 Discharge summary [facility] Medical Records Department [address] [place] [address] Emergency Department Summary 12/10/24 MR#: [id number] Acct: [id number] Name: MAUREEN ANSARI Rep #:[id number] : 1955 69 From: Isaac Araujo DO [...] of recent travel, surgeries, DVT or PE [facility] Medical History (Updated 12/11/24 @ 03:06 by [...] following commands knew that she was at [facility] the year is 2024 Skin: Warm, [...] noted. Called and discussed case with on-call sales teacher Dr. Holt who states that he would [...] (Auto) 66.3 Lymph % (Auto) 16.5 L [place] % (Auto) 11.4 H Eos % (Auto) [...] CHF changes. Follow-up is advised Reading Location: [place] [address] Chest CTA 12/11/24 00:48 IMPRESSION: No CT [...] hypertrophy of the adrenal glands. Reading Location: [place] [address] Discharge Plan Triage Chief Complaint: Shortness of [...] Care Physician,No Primary [Non-Staff] - Print Language: [place] Disposition Disposition: Acute Care [facility] What to do if you have Problems For any increased pain, shortness of breath, bleeding, nausea or vomiting, chestpain, or any unexpected problems, contact your Primary Care Provider. Call [facility] ([phone]) or report tothe closest Emergency Room. Call 911 if necessary. 12/11/24 0306 Cosigner Signature (if applicable): CC: Dr. Marianela Edwards DO ~ Signed [facility]06-10-2025 Discharge summary [facility] Medical Records Department [address] [place] [address] Emergency Department Summary 12/10/24 MR#: [id number] Acct: [id number] Name: MAUREEN ANSARI ALYSHA Rep #:[id number] : 1955 69 From: Isaac Araujo DO [...] of recent travel, surgeries, DVT or PE [facility] Medical History (Updated 12/11/24 @ 03:06 by [...] following commands knew that she was at [facility] the year is 2024 Skin: Warm, [...] noted. Called and discussed case with on-call sales teacher Dr. Holt who states that he would [...] (Auto) 66.3 Lymph % (Auto) 16.5 L [place] % (Auto) 11.4 H Eos % (Auto) [...] CHF changes. Follow-up is advised [place] [facility] Chest CTA 12/11/24 00:48 IMPRESSION: No CT [...] hypertrophy of the adrenal glands. Reading Location: [place] [address] Discharge Plan Triage Chief Complaint: Shortness of [...] Care Physician,No Primary [Non-Staff] - Print Language: [place] Disposition Disposition: Acute Care [facility] What to do if you have Problems For any increased pain, shortness of breath, bleeding, nausea or vomiting, chestpain, or any unexpected problems, contact your Primary Care Provider. Call [facility] ([phone]) or report tothe closest Emergency Room. Call 911 if necessary. 12/11/24 0306 Cosigner Signature (if applicable): CC: Dr. Marianela Edwards, DO ~ Signed [facility]06-10-2025 History and physical note [facility] Medical Records Department [address] [place] [address] History & Physical Exam 12/11/24 0233 MR#: [id number] Acct: [id number] Name: MAUREEN ANSARI ALYSHA Rep #:[id number] : 1955 69 From: Francis Bojorquez MD [...] a smoker. She had been living in [place] and moved here to be near her [...] 377, sodium 137, potassium 3.9, chloride 106, lgwsax33.3, BUN 13, creatinine 1.08, glucose 126, troponin [...] for further management of congestive heart failure. [facility] Medical History (Updated 12/11/24 @ 02:55 by [...] Neut %(Auto) 66.3, Lymph % (Auto) 16.5 L,[place] % (Auto) 11.4 H, Eos % (Auto) [...] CHF changes. Follow-up is advised Reading Location: [place] [address] Chest CTA 12/11/24 00:48 IMPRESSION: No CT [...] hypertrophy of the adrenal glands. Reading Location: [place] [address] Assessment & Plan Assessment/Plan (1) Congestive heart [...] Smoking?cessation encouraged Charges/Coding Visit Charges Inpatient E&M: 95209 Init Hosp L3 12/11/24 0259 Cosigner Signature (if applicable): CC: Dr. Marianela Edwards, DO; Dr. Francis Bojorquez MD~ Signed [facility]06-10-2025 [facility] Medical Records Department [address] [place] [address] History Physical Exam 12/11/24 0233 MR#: [id number] Acct: [id number] Name: MAUREEN ANSARI ALYSHA Rep #: [id number] : 1955 69 From: Francis Bojorquez MD [...] a smoker. She had been living in [place] and moved here to be near her [...] for further management of congestive heart failure. [facility] Medical History (Updated 12/11/24 @ 02:55 by [...] Temperature 98.2 F Temperat (more content not included)...[facility]06-10-2025 Radiology Diagnostic study note [facility] Imaging Services [address] [place], [place] [address] CTA Chest W/WO Contrast MR#: [id number] Acct: [id number] Name: MAUREEN ANSARI Rep #: [id number] : 1955 F 69 From: Jolly Mueller MD PCP: Care Physician,No Primary Status: REG ER Study:CTA Chest W/WO Contrast Date of Exam: 12/11/24 Exam# [id number] Ordering Dr: Nik Araujo DO PROCEDURE: CTA [...] hypertrophy of the adrenal glands. Reading Location: [facility] [facility] CC: Dr. Isaac Araujo DO; No Primary Care Physician ~ Laboratory Tester: Signed [facility]06-10-2025 Radiology Diagnostic study note [facility] Imaging Services [address] [place] [id number] Chest PA and Lateral MR#: [id number] Acct: [id number] Name: MAUREEN ANSARI ALYSHA Rep #: [id number] : 1955 F 69 From: Jolly Mueller MD PCP: Care Physician,No Primary Status: PRE ER Study:Chest PA and Lateral Date of Exam: 12/10/24 Exam# [id number] Ordering Dr: Nik Araujo DO PROCEDURE: CHEST [...] CHF changes. Follow-up is advised [facility] CC: Dr. Isaac Araujo DO; No Primary Care Physician ~ Laboratory Tester: Signed [facility]06-09-2025 Discharge summary Author Isaac Araujo [facility] Note Date/Time December 11, 2024 3:[address] [facility] Medical Records Department [address] [place] [address] Emergency Department Summary 12/10/24 MR#: [id number] Acct: [id number] Name: MAUREEN ANSARI Rep #:[id number] : 1955 69 From: Isaac Araujo DO [...] of recent travel, surgeries, DVT or PE [facility] Medical History (Updated 12/11/24 @ 03:06 by [...] following commands knew that she was at [facility] the year is 2024 Skin: Warm, [...] noted. Called and discussed case with on-call sales teacher Dr. Holt who states that he would [...] (Auto) 66.3 Lymph % (Auto) 16.5 L [place] % (Auto) 11.4 H Eos % (Auto) [...] CHF changes. Follow-up is advised Reading Location: [place] [address] Chest CTA 12/11/24 00:48 IMPRESSION: No CT [...] hypertrophy of the adrenal glands. Reading Location: [place] [address] Discharge Plan Triage Chief Complaint: Shortness of [...] Care Physician,No Primary [Non-Staff] - Print Language: [place] Disposition Disposition: Acute Care [facility] What to do if you have Problems For any increased pain, shortness of breath, bleeding, nausea or vomiting, chestpain, or any unexpected problems, contact your Primary Care Provider. Call [employer] [facility] ([phone]) or report to the closest Emergency Room. Call 911 if necessary. 12/11/24 0306 <Electronically signed by Isaac Araujo DO> Cosigner Signature (if applicable): CC: Dr. Marianela Edwards DO ~ Signed [facility] Work Phone: 1(389) 438-355605-27-2025 Telephone encounter Note* Telephone Encounter - Kimberlee Lofton RN - 11/27/2024 1:14 PM EDT Patient phones requesting refills as follows: Requested Prescriptions Pending Prescriptions Disp Refills cilostazol (PLETAL) 50 mg tablet [Pharmacy Med Name: CILOSTAZOL 50 MG TABLET] 180 tablet 0 Sig: TAKE 1 TABLET BY MOUTH TWICE A DAY Please review and advise. Kimberlee Lofton RN [facility]05-27-2025 Miscellaneous Notes* Telephone Encounter - Kimberlee Lofton RN - 11/27/2024 1:14 PM EDT Patient phones requesting refills as follows: Requested Prescriptions Pending Prescriptions Disp Refills cilostazol (PLETAL) 50 mg tablet [Pharmacy Med Name: CILOSTAZOL 50 MG TABLET] 180 tablet 0 Sig: TAKE 1 TABLET BY MOUTH TWICE A DAY Please review and advise. Kimberlee Lofton RN documented in this encounterMiddletown Hospital05-16-2025 Note* Addendum Note - Marianela Edwards DO - 11/16/2024 9:35 AM EDTAddended by: MARIANELA EDWARDS on: 11/16/2024 09:35 AM Modules accepted: Orders [facility]05-16-2025 Telephone encounter Note* Telephone Encounter - Marianela Edwards DO - 11/16/2024 9:35 AM EDT Order attached Marianela Edwards DO [facility]05-16-2025 Miscellaneous Notes* Addendum Note - Marianela Edwards [...] TSH. Shari López MA documented in this encounterMiddletown Hospital05-16-2025 Telephone encounter Note * Telephone Encounter - Desire Moss MA - 11/16/2024 7:43 AM EDT ----- Message from Shari Erickson MA sent at 10/05/2024 7:26 AM EDT ----- Remind pt. Time to recheck TSH. Shari López MA [facility]05-08-2025 Telephone encounter Note* Telephone Encounter - Sharee White LPN - 11/08/2024 2:38 PM EDT Sent to [facility]. Sharee White LPN [facility]05-08-2025 Miscellaneous Notes* Telephone Encounter - Sharee White LPN - 11/08/2024 2:38 PM EDT Sent to [facility]. Sharee White LPN * Telephone Encounter - Marianeal Edwards DO - 11/07/2024 7:42 PM EDT [...] elevated for awhile.Requesting script be sent to [facility]. Please advise. Gloria Srinivasan MA documented in this encounterMiddletown Hospital05-08-2025 Telephone encounter Note * Telephone Encounter - Marianela Edwards DO - 11/08/2024 12:47 PM EDT I called and spoke to pt. Her BP has been going up. She would like to restart norvasc 10 mg daily. I advised her to make an appt in 2 weeks for NV BP recheck after starting norvasc 10 mg Marianela Edwards DO [facility]05-08-2025 Miscellaneous Notes* Telephone Encounter - Marianela Edwards DO - 11/08/2024 12:47 PM EDT I called and spoke to pt. Her BP has been going up. She would like to restart norvasc 10 mg daily. I advised her to make an appt in 2 weeks for NV BP recheck after starting norvasc 10 mg Marianela Edwards DO documented in this encounterMiddletown Hospital05-07-2025 Telephone encounter Note * Telephone Encounter - Marianela Edwards DO - 11/07/2024 7:42 PM EDT Spoke to pt - she would like to restart norvasc 10 mg daily and will f/u in 2 weeks for NV BP Recheck Marianela Edwards DO [facility]05-07-2025 Telephone encounter Note* Telephone Encounter - Gloria [...] elevated for awhile.Requesting script be sent to [facility]. Please advise. Gloria Srinivasan MA [facility]05-06-2025 [facility] History of Present illness Narrative* Argenis Nagy, - 11/06/2024 10:50 AM EDT Images from the original note were not included. [facility] [place] DEPARTMENT OF VASCULAR SURGERY OUTPATIENT VISIT DATE [...] activities Will have her follow up in [place] with Dr. Padgett SIGNATURE: Argenis Nagy DO PATIENT NAME: Maureen Barron DATE: November 06, 2024 TIME: 10:51 AM documented in this encounterMiddletown Hospital04-18-2025 History of Present illness Narrative* Philip Luz, [...] PATIENT PRESENTS WITH AN IMPLANTABLE OR ATTACHED MARINE ELECTRICIAN: No ALLERGIES: Reviewed and unchanged CONTRAST ALLERGY: [...] 2024 TIME: 2:14 PM documented in this encounterMiddletown Hospital04-18-2025 NoteHNO ID: [id number] Author: PHILIP LUZ TECHNOLOGIST Service: Radiology Author [...] PATIENT PRESENTS WITH AN IMPLANTABLE OR ATTACHED MARINE ELECTRICIAN: No ALLERGIES: Reviewed and unchanged CONTRAST ALLERGY: [...] Barron DATE: October 19, 2024 TIME: 2:14 [id number] Nurse Note* Marbella Marie RN - 10/19/2024 [...] DATE: October 19, 2024 TIME: 1:56 PM [facility]04-18-2025 Nurse Note* Marbella Marie RN - 10/19/2024 [...] 2024 TIME: 1:56 PM documented in this encounterMiddletown Hospital04-17-2025 Chief complaint+Reason for visit Narrative* Chief Complaint [...] pack a day or less December 2:59am [facility] Work Phone: 1(401) 913-600504-17-2025 Chief complaint+Reason for visit Narrative * Chief [...] CHF exacerbation December 11, 2024 2:59 am [facility] Work Phone: 1(550) 940-237504-17-2025 Chief complaint+Reason for visit Narrative * Chief [...] pack a day or less December 2:59am [facility] Work Phone: 1(142) 372-981504-17-2025 Evaluation note* Diagnosis Onset Date Resolution Status Admit Date Carpal tunnel syndrome on right barman donya October 18, 2024 9:55am Neck and shoulder pain chronic Ap ril 2024 9:55am Tremor chronic October 18 9:55am Congestive heart failure acute December 11, 2024 2:59am Elevated troponin acute December 112024 2:59am Peripheral vascular disease acute December 11, 2024 2:59am Respiratory distress, acute acute December 11, 2024 2:59am Smoking 1/2 pack a day or less acute December 11, 2024 2:59am [facility] Work Phone: 1(786) 402-330704-17-2025 Evaluation note* Diagnosis Onset Date Resolution Status Admit Date Carpal tunnel syndrome on right barman donya October 18, 2024 9:55am Neck and [...] 2024 2:59am CHF exacerbation chronic December 2:59am [facility] Work Phone: 1(424) 408-378504-17-2025 Evaluation note* Diagnosis Onset Date Resolution Status Admit Date Carpal tunnel syndrome on right barman donya October 18, 2024 9:55am Neck and [...] less inact guillermo December 11, 2024 2:59am [facility] Work Phone: 1(103) 714-994804-04-2025 Telephone encounter Note* Telephone Encounter - Shari López MA - 10/05/2024 7:25 AM EDT Steve on pt. Vm with all information. Shari López MA [facility]04-04-2025 Miscellaneous Notes* Telephone Encounter - Shari López [...] weeks Marianela Edwards DO documented in this encounterMiddletown Hospital04-02-2025 Telephone encounter Note * Telephone Encounter - Marianela Edwards DO - 10/03/2024 8:29 PM EDT Please call pt- her thyroid levels are now a little high. I will adjust her medication and we should recheck TSH in 6 weeks Marianela Edwards DO [facility]03-25-2025 NoteSelect [facility]03-25-2025 History of Present illness Narrative* Argenis Nagy, - 09/25/2024 9:48 AM EDT Images from the original note were not included. [facility] [place] DEPARTMENT OF VASCULAR SURGERY OUTPATIENT VISIT DATE [...] BP Cuff Size: Regular Adult) Pulse 83 [id number]% Gen- no distress Ext- nonpalpable distal pulse, [...] 2024 TIME: 9:48 AM documented in this encounterMiddletown Hospital03-24-2025 Telephone encounter Note * Telephone Encounter - [...] Please review and advise. Gloria Srinivasan MA [facility]03-24-2025 Miscellaneous Notes* Telephone Encounter - Gloria Srinivasan [...] advise. Gloria Srinivasan MA documented in this encounterMiddletown Hospital03-18-2025 Telephone encounter Note * Telephone Encounter - Shari López MA - 09/18/2024 11:07 AM EDT Patient notified. Shari López MA [facility]03-18-2025 Miscellaneous Notes* Telephone Encounter - Shari López MA - 09/18/2024 11:07 AM EDT Patient notified. Shari López MA * Telephone Encounter - Marianela Edwards DO - 09/18/2024 10:46 AM EDT Order attached Mraianela Edwards DO * Telephone Encounter - Gloria Srinivasan MA - 09/11/2024 7:49 AM EDT ----- Message from Shari Erickson MA sent at 07/31/2024 8:22 AM EST ----- Please put in reminder for pt to have TSH in 6 weeks, documented in this encounterMiddletown Hospital03-18-2025 Telephone encounter Note * Telephone Encounter - Marianela Edwards DO - 09/18/2024 10:46 AM EDT Order attached Marianela Edwards DO [facility]03-11-2025 Telephone encounter Note* Telephone Encounter - Gloria Srinivasan MA - 09/11/2024 7:49 AM EDT ----- Message from Shari Erickson MA sent at 07/31/2024 8:22 AM EST ----- Please put in reminder for pt to have TSH in 6 weeks, [facility]02-27-2025 History of Present illness Narrative* Tito Thomas [...] PATIENT PRESENTS WITH AN IMPLANTABLE OR ATTACHED MARINE ELECTRICIAN: No RADIOLOGY DEPARTMENT: Bone Density PERIPHERAL IV DATA: Not applicable SIGNED BY: RT Carmen(R) August 30, 2024 1:20 PM documented in this encounterMiddletown Hospital02-27-2025 NoteSelect [facility]02-27-2025 History of Present illness Narrative* Yuko Mojica, [...] PATIENT PRESENTS WITH AN IMPLANTABLE OR ATTACHED MARINE ELECTRICIAN: No RADIOLOGY DEPARTMENT: Mammography PERIPHERAL IV DATA: Not applicable SIGNED BY: [place] Henryo Scout August 30, 2024 12:51 PM documented in this encounterMiddletown Hospital02-27-2025 NoteSelect [facility]01-28-2025 NoteSelect [facility]01-28-2025 History of Present illness Narrative* Argenis Nagy DO - 07/31/2024 8:37 AM EST Images from the original note were not included. [facility] [place] DEPARTMENT OF VASCULAR SURGERY OUTPATIENT VISIT DATE July 31, 2024 OUTPATIENT VISIT TYPE CONSULTATION SERVICE DATE: 07/31/2024 SERVICE TIME: 8:38 AM PRIMARY CARE PHYSICIAN: Marianela Edwards DO REFERRING PROVIDER: Marianela Edwards [address] [place] [address] Consult requested for an opinion regarding the [...] a history of intracranial aneurysm treatment in [place]. She has had vein treatment in [place] where veins were dissolved. She admits to [...] 2024 TIME: 8:38 AM documented [facility] Telephone encounter Note * Telephone Encounter - Desire Moss MA - 07/30/2024 7:13 AM EST ----- Message from Marianela Edwards DO sent at 07/28/2024 11:39 AM EST ----- Please put in reminder for pt to have TSH in 6 weeks, FLP/CMP in 3 months Marianela Edwards DO [facility]01-27-2025 Miscellaneous Notes* Telephone Encounter - Desire Moss MA - 07/30/2024 7:13 AM EST ----- Message from Marianela Edwards DO sent at 07/28/2024 11:39 AM EST ----- Please put in reminder for pt to have TSH in 6 weeks, FLP/CMP in 3 months Marianela Edwards DO documented in this encounterMiddletown [facility]01-22-2025 NoteHNO ID: [id number] Author: ANA GUERRA RN Service: ? Author [...] questions performed? Addressed 07/11/24 N/A Concerns: N/A Family Advocate plan for next outreach: Will follow-up in about 2wks. Signature: [facility] RN [facility] 25[facility] History of Present illness Narrative* Ana Guerra [...] questions performed? Addressed 07/11/24 N/A Concerns: N/A Family Advocate plan for next outreach: Will follow-up in about 2wks. Signature: Ana Guerra RN July 25, 2024 documented in this encounterMiddletown [facility]01-22-2025 Telephone encounter Note * Telephone Encounter - Shari López MA - 07/25/2024 7:57 AM EST Left message on patients voicemail with all information. Reminder placed. Shari López MA [facility]01-22-2025 Miscellaneous Notes* Telephone Encounter - Shari López [...] advise. Gloria Srinivasan MA documented in this encounterMiddletown Hospital01-22-2025 NotePatient Outreach (AGACM) MAUREEN ANSARI ([id number]) 1955 F CHT Date Time Provider Department [...] questions performed? Addressed 07/11/24 N/A Concerns: N/A Family Advocate plan for next outreach: Will follow-up in [...] 07/10/2024 Encounter Status:Closed by ANA GUERRA on 07/25/24[facility]01-21-[facility] Telephone encounter Note* Telephone Encounter - Grace, Marianela Perez DO - 07/24/2024 10:09 PM EST Please call pt- her thyroid levels are low. I have increased synthroid to 112 mcg daily and we willrecheck TSH in 2 months Marianela Edwards DO [facility]01-21-2025 Telephone encounter Note* Telephone Encounter - Gloria Srinivasan MA - 07/24/2024 8:44 AM EST patient phones requesting refills as follows: Last seen 06/25/24 . Last refill previous pcp . Requested Prescriptions Pending Prescriptions Disp Refills levothyroxine (SYNTHROID) 100 mcg tablet 90 tablet 1 Sig: Take 1 tablet by mouth daily before breakfast. Please review and advise. Gloria Srinivasan MA [facility]01-08-2025 NoteHNO ID: [id number] Author: ANA GUERRA RN Service: ? Author Type: Registered Nurse Type: Progress Notes Filed: 07/12/2024 16:06 Note Text: TRANSITIONAL CARE MANAGEMENT (TCM) COMMUNITY MONITORING PROGRAM - [place] Provider Action/FYI: Still has neck stiffness and pain No headaches Pt hasn't checked her BP yet today TCM appointment with PCP - 07/26/24 (1st available) SUMMARY: Pt discharged from [facility] on 07/10/24. RISK 15 Admitted for: ART HTN Left-sided neck pain Patient seen Inpatient JOAQUIM Visit? N/A. Patient seen ICARE Program? N/A. Contact made with patient: Yes Hi my name is Ana Guerra RN and I am calling from the [facility] on behalf of your PCP, Marianela [...] today. Admits that prior to moving to [place], she had poor eating habits; and had [...] lack companionship? No Pt moved here from [place], shortly before January 2024. She is living w/ her sister in [place]. States that they are the only 2 left in their family, besides some cousins. Her sister is helping her get her Social Security from [place] to [place] figured out. Do you ever need help [...] like to speak with a social work truck driver teamster to help give you support for any of these needs? No It can be normal to feel anxious or down during a time like this. Would you like to talk to a mental health professional about how you have been feeling? No Pt admits that she has been really' depressed. Prior to moving to [place], pt was homeless, after going through a stressful divorce. States that she lost her 3 bedroom home. Declined to speak w/ a SW at this time. ACT (more content not included)...[facility]01-08-2025 History of Present illness Narrative* Ana Guerra RN - 07/11/2024 10:22 AM EST TRANSITIONAL CARE MANAGEMENT (TCM) COMMUNITY MONITORING PROGRAM - [place] Provider Action/FYI: Still has neck stiffness and pain No headaches Pt hasn't checked her BP yet today TCM appointment with PCP - 07/26/24 (1st available) SUMMARY: Pt discharged from [facility] on 07/10/24. RISK 15 Admitted for: ART HTN Left-sided neck pain Patient seen Inpatient JOAQUIM Visit? N/A. Patient seen ICARE Program? N/A. Contact made with patient: Yes Hi my name is Ana Guerra RN and I am calling from the [facility] on behalf of your PCP, Marianela [...] BP today. Admits thatprior to moving to [place], she had poor eating habits; and had [...] lack companionship? No Pt moved here from [place], shortly before January 2024. She is living w/ her sister in [place]. States that they are the only 2 left in their family, besides some cousins. Her sister is helping her get her Social Security from [place] to [place] figured out. Do you ever need help [...] like to speak with a social work truck driver teamster to help give you support for any of these needs? No It can be normal to feel anxious or down during a time like this. Would you like to talk to a mental health professional about how you have been feeling? No Pt admits that she has been really' depressed. Prior to moving to [place], pt was homeless, after goingthrough a stressful divorce. States that she lost her 3 bedroom home. Declined to speak w/ a [facility] this time. ACTION TAKEN: No action [...] it. Ana Guerra RN documented in this encounterMiddletown Hospital01-08-2025 NotePatient Outreach (AGACM) MAUREEN ANSARI ([id number]) 1955 F CHT Date Time Provider Department 07/11/24 ANA GUERRA [facility] During your visit today, we recorded the following information about you: Ana Guerra, RN 07/12/2024 4:06 PM Signed TRANSITIONAL CARE MANAGEMENT (TCM) COMMUNITY MONITORING PROGRAM - [place] Provider Action/FYI: Still has neck stiffness and pain No headaches Pt hasn't checked her BP yet today TCM appointment with PCP - 07/26/24 (1st available) SUMMARY: Pt discharged from [facility] on 07/10/24. RISK 15 Admitted for: ART HTN Left-sided neck pain Patient seen Inpatient JOAQUIM Visit? N/A. Patient seen ICARE Program? N/A. Contact made with patient: Yes Hi my name is Ana Guerra RN and I am calling from the [facility] on behalf of your PCP, Marianela [...] today. Admits that prior to moving to [place], she had poor eating habits; and had [...] lack companionship? No Pt moved here from [place], shortly before January 2024. She is living w/ her sister in [place]. States that they are the only 2 left in their family, besides some cousins. Her sister is helping her get her Social Security from [place] to [place] figured out. Do you ever need help [...] like to speak with a social work truck driver teamster to help give you support for any of these needs? No It can be normal to feel anxious or down during a time like this. Would you like to talk to a mental health professional about how you have been feeling? No Pt admits that she has been adrian (more content not included)...[facility]01-07-2025 NoteHNO ID: [id number] Author: PERI GRESHAM RN Service: Care Management Author Type: Registered Nurse Type: Care Mgt Progress Note Filed: 07/10/2024 10:58 Note Text: CARE MANAGEMENT PROGRESS NOTE SERVICE DATE: 07/10/2024 SERVICE TIME: 1039 LOS: 1 day IMM Follow Up Copy Given: Yes Copy given to:: Patient Method: In Person SIGNATURE: Peri Gresham RN PATIENT NAME: Maureen Barron DATE: July 10, 2024 TIME: 10:58 [facility]01-06-2025 NoteHNO ID: [id number] Author: TERE PATEL LSW Service: Care Management Author Type: Shirt Cleaner Type: Care Mgt Initial Assessment Filed: 07/09/2024 [...] Home Advance Directives Current Advance Directive: None 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 SW discussed drug use with patient as patient tested positive for amphetamines on admission. Patient reports she is not an active user but there are people at the [employer] complex where her sister lives cooking meth [...] stable, sister able to provide transport at mt. Anticipate no needs. SIGNATURE: ALTON Casiano PATIENT NAME: Maureen Barron DATE: July 09, 2024 TIME: 2:41 [facility]01-06-2025 NoteHNO ID: [id number] Author: JESI MATSON MD Service: Critical Care [...] occlusions managed previously by vascular surgeon in [place]. Patient reports that she has appointment with vascular surgeon to establish care in [place]. No LOC, syncope, neurologic deficits. - CTA [...] active code status present (more content not included)...[facility]01-06-2025 UiyaAEFN-HYA-0 (AGENT OF COVID-19) RNA: Not detected INFLUENZA A RNA: Not detected INFLUENZA B RNA: Not detected RESPIRATORY SYNCYTIAL VIRUS (RSV) RNA: Not detectedLegacy Silverton Medical CenterComment on above:Performed By: #### [id number] #### [facility] CLIA [id number] [address] [place] [address] [place] [id number] NoteHNO ID: [id number] Author: AMRIANELA EDWARDS, DO Service: ? Author Type: Physician Type: Progress Notes Filed: 07/08/2024 08:52 Note Text: SUBJECTIVE: 68 year old female here with her sister to establish. I have fully reviewed the past medical, surgical, social and family history and updated the Histories section of [employer]. She has a history of carotid endarterectomy, [...] 65+ YR, HIGH DOSE, (more content not included)...[facility]12-23-2024 History of Present illness Narrative* Marianela Edwards, - 06/25/2024 1:35 PM EST SUBJECTIVE: 68 year old female here with her sister to establish. I have fully reviewed the past medical, surgical, social and family history and updated the Histories section of [facility]. She has a history of [...] COUNT Marianela Edwards DO documented in this encounterMiddletown Hospital12-23-2024 Instructions* Patient Instructions* Gloria Srinivasan MA - [...] your usual activities immediately. documented in this encounterMiddletown Hospital09-14-2024 [facility] Medical Records Department [address] [place] [address] Discharge Summary 03/17/24 1049 MR#: [id number] Acct: [id number] Name: MAUREEN ANSARI ALYSHA Rep #: [id number] : 1955 68 From: Sukhi Forbes DO PCP: Care Physician,No Primary Status:ADM [place] [facility] [place] Providers Date of Admission: 03/07/24 Primary Care [...] Plans were to get her into a fpc facility though he had issues regards to the patient having [employer] insurance. Patient is now residing here permanently living with her sister. Plan is for her to go to fpc facility but patient is feeling much better [...] Attending Provider: Sukhi Forbes (more content not included)...[facility] note * Diagnosis Hypothyroidism, acquired- Primary Unspecified [...] health care facility [facility]* Diagnosis Hypothyroidism, acquired Unspecified hypothyroidism [facility]* Diagnosis Symptomatic varicose veins of both lower extremities- Primary Varicose veins of lower extremities with other complications Claudication in peripheral vascular disease (HCC) Peripheral vascular disease, unspecified Primary hypertension Unspecified essential hypertension [facility]* Diagnosis Asymptomatic menopause documented in this encounter [facility] note* Diagnosis Encounter for screening mammogram for breast cancer [facility]* Diagnosis Hypothyroidism, acquired- Primary Unspecified hypothyroidism [facility]* Diagnosis Peripheral vascular disease (HCC)- Primary Peripheral vascular disease, unspecified Screening for nephropathy [facility]* Diagnosis Peripheral vascular disease Peripheral vascular disease, unspecified [facility]* Diagnosis Age-related osteoporosis without current pathological fracture- Primary Senile osteoporosis [facility]* Diagnosis Hypertension, essential- Primary Unspecified essential hypertension [facility] Diagnosis Hypothyroidism, acquired- Primary Unspecified hypothyroidism [facility]* Diagnosis Encounter for screening for cardiovascular disorders- Primary Screening for other and unspecified cardiovascular conditions Claudication Peripheral vascular disease, unspecified Primary hypertension Unspecified essential hypertension [facility]* Diagnosis Pre-operative clearance- Primary Preoperative examination, unspecified Nonrheumatic mitral valve regurgitation [facility]* Diagnosis Shortness of breath- Primary documented in this encounter [facility] Author Francis Bojorquez [facility] Note Date/Time December 11, 2024 2:59 am [facility] Medical Records Department [address] [place] [address] History & Physical Exam 12/11/24 0233 MR#: [id number] Acct: [id number] Name: MAUREEN ANSARI Rep #:[id number] : 1955 69 From: Francis Bojorquez MD [...] a smoker. She had been living in [place] and moved here to be near her [...] for further management of congestive heart failure. [facility] Medical History (Updated 12/11/24 @ 02:55 by [...] % (Auto) 66.3, Lymph % (Auto) 16.5 L,[place] % (Auto) 11.4 H, Eos % (Auto) [...] CHF changes. Follow-up is advised Reading [facility] Chest [facility]A 12/11/24 00:48 IMPRESSION: No CT [...] hypertrophy of the adrenal glands. Reading Location: [place] [address] Assessment & Plan Assessment/Plan (1) Congestive heart [...] Smoking?cessation encouraged Charges/Coding Visit Charges Inpatient E&M: 49395 Init Hosp L3 12/11/24 0259 <Electronically signed by Francis Bojorquez MD> Cosigner Signature (if applicable): CC: Dr. Marianela Edwards DO; Dr. Francis Bojorquez MD~ Signed [facility] Work Phone: Reason for referral (narrative)No reason for referral information availableWOhioHealth Doctors Hospital Work Phone: Reason for visit Narrative* Diagnostic Procedure Only (Routine) - Closed Specialty Diagnoses / Procedures Referred By Contac t Referred To Contact XR IMAGING Diagnoses Asymptomatic menopause Procedures DXA-AXIAL SKELETON DXA BONE DENSITY STUDY 1/> SITES AXIAL Marianela Lema DO [address] [place] [address] Phone: tel: fax: [place] [address] Referral ID Status Reason Start Date Expiration Date V isits Requested Visits Authorized [id number] Closed Auto-Generate d Referral 07/06/2024 07/03/2025 1 1 [facility] for visit Narrative* Diagnostic Procedure Only (Routine) - Closed Specialty Diagnoses / Procedures Referred By Mayda t Referred To Contact BR IMAGING Diagnoses Encounter for screening mammogram for breast cancer Procedures BRAD SCREENING W RONALD SCREENING DIGITAL BREAST TOMOSYNTHESIS BI SCREENING MAMMOGRAPHY BI 2-VIEW BREAST INC CAD Marianela Edwards, DO [address] [place] [address] Phone: tel: fax: BR IMAG[facility] [address] [place] [address] Referral ID Status Reason Start Date Expiration Date V isits Requested Visits Authorized [id number] Closed Auto-Generate d Referral 06/25/2024 07/25/2025 1 1 [facility] for visit Narrative* MRI/CT (Routine) - New Request Specialty Diagnoses / Procedures Referred By Mayda t Referred To Contact CT IMAGING Diagnoses Peripheral vascular disease Procedures CTA ABD/PEL LOWER EXTREM W IVCON CTA ABDL AORTA&BI ILIOFEM W/CONTRAST&POSTP Argenis Nagy, DO [address] [place] [address] Phone: tel: fax: [facility] IM[facility] [place] [address] Referral ID Status Reason Start Date Expiration Date Visits Requested Visits Authorized [id number] New Request Auto-Genera isabel Referral Patient Cleared - Admin/Chair man/Directo r advise to proceed or did not respond 09/25/2024 10/25/2025 1 0 [facility] for visit Narrative* Consult, Test, Treat (Routine) - Closed Specialty Diagnoses / Procedures Referred By Mayda t Referred To Contact Vascular Surgery Diagnoses Claudication Procedures CONSULT TO VASCULAR SURGERY OFFICE/OUTPATIENT [facility] 60 MINUTES Marianela Edwards, DO [address] [place] [address] Phone: tel: fax: Argenis Nagy, DO [address] [facility] [address] [place] [address] Phone: tel: Referral ID Status Reason Start Date Expiration Date V isits Requested Visits Authorized [id number] Closed PCP Requested Referral 06/25/2024 06/25/2025 1 1 [facility] for visit Narrative* Auth/Cert (Routine) Specialty Diagnoses / Procedures Referred By Contac t Referred To Contact HOSP INPATIENT Diagnoses NSTEMI (non-ST elevated myocardial infarction) (HCC) NSTEMI Procedures N/A [id number] [place] [address] Phone: tel: Referral ID Status Reason Start Date Expiration Date Visits Re quested Visits Authorized [id number] 1 1 [facility] Summary Purpose Family History Relationship Condition Age [...] Do you have a Healthcare Power of Enterprise Services Manager? No December 10, 2024 11:34pm Advance Directive Response Recorded Date/ Time Do you have a Healthcare Power of Enterprise Services Manager? No December 11, 2024 3:40am Documents on File Type Date Recorded Patient Keyliner Expl anation Advance Directive(s) 12/17/2024 7:50 PM Date Activated Date Inactivated Comments 12/15/2024 9:59 PM Date Activated Date Inactivated Comments 12/14/2024 2:46 PM 12/15/2024 7:40 PM Question Answer Comments Full Code Order Discussed With: Patient Date Activated Date Inactivated Comments 07/09/2024 12:08 AM 07/10/2024 2:43 PM Question Answer Comments Full Code Order Discussed With: Patient Documents on File Type Date Recorded Patient Keyliner Expl anation Advance Directive(s) 12/17/2024 7:50 PM [...] Do you have a Healthcare Power of Enterprise Services Manager? No December 11, 2024 3:40am Do you have a Healthcare Power of Enterprise Services Manager? Yes January 07, 2025 2:43pm Date Activated Date Inactivated Comments 12/15/2024 9:59 PM 01/04/2025 4:16 PM Reason for Referral Specialty Diagnoses / Procedures Referred By Mayda green Referred To Contact Vascular Surgery Diagnoses Claudication (HCC) Procedures CONSULT TO VASCULAR SURGERY OFFICE/OUTPATIENT [facility] 60 MINUTES Marianela Edwards, DO [address] [place] [address] Argenis Nagy, DO [address] [address] Referral ID Status Reason Start Date Expiration Date Visits Requested Visits Authorized [id number] Pending Review PCP Requested Referral 06/25/2025 1 1 Specialty Diagnoses / Procedures Referred By Mayda green Referred To Contact XR IMAGING Diagnoses Asymptomatic menopause Procedures DXA-AXIAL SKELETON DXA BONE DENSITY STUDY 1/> SITES AXIAL SK Marianela Edwards, DO [address] [place] [address] [place] [address] Referral ID Status Reason Start Date Expiration Date Visits Requested Visits Authorized [id number] Authorized Auto-Generat ed Referral 07/06/2024 07/03/2025 1 1 Specialty Diagnoses / Procedures Referred By Mayda green Referred To Contact BR IMAGING Diagnoses Encounter for screening mammogram for breast cancer Procedures BRAD SCREENING W RONALD SCREENING DIGITAL BREAST TOMOSYNTHESIS BI SCREENING MAMMOGRAPHY BI 2-VIEW BREAST INC CAD Marianela Edwards, DO [address] [place] [address] Br Imaging [facility] [place] [address] Referral ID Status Reason Start Date Expiration Date Visits Requested Visits Authorized [id number] Pending Review Auto-Generat ed Referral 07/25/2025 1 1 Specialty Diagnoses / Procedures Referred By Mayda t Referred To Contact Cardiology Diagnoses Primary hypertension Procedures CONSULT TO CARDIOLOGY OFFICE/OUTPATIENT NEW HIGH MDM 60 MINUTES Argenis Nagy, DO [address] [place] [address] Referral ID Status Reason Start Date Expiration Date Visits Requested Visits Authorized [id number] Authorized PCP Requested Referral 07/31/2024 07/31/2025 1 1 Specialty Diagnoses / Procedures Referred By Mayda t Referred To Contact [facility] [place] Diagnoses Claudication in peripheral vascular disease (HCC) Procedures PVR LEG W/EXC [facility] N-INVAS PHYSIOLOGIC STD LXTR ART COMPL BI Argenis Nagy, DO [address] [place] [address] [address] Referral ID Status Reason Start Date Expiration Date Visits Requested Visits Authorized [id number] Authorized Auto-Generat ed Referral 07/31/2024 07/31/2025 1 1 Specialty Diagnoses / Procedures Referred By Mayda green Referred To Contact [facility] Diagnoses Symptomatic varicose veins of both lower extremities Procedures US VENOUS INCOMPETENCY [facility] DUP-SCAN XTR VEINS COMPLETE BILATERAL STUDY Argenis Nagy, DO [address] [place] [address] [address] Referral ID Status Reason Start Date Expiration Date Visits Requested Visits Authorized [id number] Authorized Auto-Generat ed Referral 07/31/2024 07/31/2025 1 1 Additional Source Comments INFORMATION SOURCE (unrecogn ized section and content) DATE CREATED AUTHOR 06/27/2024 [facility] DATE CREATED AUTHOR AUTHOR'S ORGANIZ ATION 07/15/2024 [facility] nt DATE CREATED AUTHOR AUTHOR'S ORGANIZ ATION 10/21/2024 [facility] DATE CREATED AUTHOR AUTHOR'S ORGANIZ ATION 12/20/2024 [facility] DATE CREATED AUTHOR AUTHOR'S ORGANIZ ATION 12/30/2024 [facility] DATE CREATED AUTHOR AUTHOR'S ORGANIZ ATION 01/09/2025 [facility] Source Comments (unrecognize d section and content) In the event this informatio n is protected by the Federal Confidentiality of Alcohol and Drug Abuse Patient Records regulations: The Federal rules restrict any use of the information to criminally investigate or prosecute any alcohol or drug abuse patient.[facility] Hospital[facility] the event this information is protected by the Federal Confidentiality of Alcohol and Drug Abuse Patient Records regulations: The Federal rules restrict any use of the information to criminally investigate or prosecute any alcohol or drug abuse patient.[facility] HospitalIn the event this information is protected by the Federal Confidentiality of Alcohol and Drug Abuse Patient Records regulations: The Federal rules restrict any use of the information to criminally investigate or prosecute any alcohol or drug abuse patient.[facility] HospitalIn the event this information is protected by the Federal Confidentiality of Alcohol and Drug Abuse Patient Records regulations: The Federal rules restrict any use of the information to criminally investigate or prosecute any alcohol or drug abuse patient.[facility] HospitalIn the event this information is protected by the Federal Confidentiality of Alcohol and Drug Abuse Patient Records regulations: The Federal rules restrict any use of the information to criminally investigate or prosecute any alcohol or drug abuse patient.[facility] HospitalIn the event this information is protected by the Federal Confidentiality of Alcohol and Drug Abuse Patient Records regulations: The Federal rules restrict any use of the information to criminally investigate or prosecute any alcohol or drug abuse patient.[facility] HospitalIn the event this information is protected by the Federal Confidentiality of Alcohol and Drug Abuse Patient Records regulations: The Federal rules restrict any use of the information to criminally investigate or prosecute any alcohol or drug abuse patient.[facility] HospitalIn the event this information is protected by the Federal Confidentiality of Alcohol and Drug Abuse Patient Records regulations: The Federal rules restrict any use of the information to criminally investigate or prosecute any alcohol or drug abuse patient.[facility] HospitalIn the event this information is protected by the Federal Confidentiality of Alcohol and Drug Abuse Patient Records regulations: The Federal rules restrict any use of the information to criminally investigate or prosecute any alcohol or drug abuse patient.[facility] HospitalIn the event this information is protected by the Federal Confidentiality of Alcohol and Drug Abuse Patient Records regulations: The Federal rules restrict any use of the information to criminally investigate or prosecute any alcohol or drug abuse patient.[facility] HospitalIn the event this information is protected by the Federal Confidentiality of Alcohol and Drug Abuse Patient Records regulations: The Federal rules restrict any use of the information to criminally investigate or prosecute any alcohol or drug abuse patient.[facility] HospitalIn the event this information is protected by the Federal Confidentiality of Alcohol and Drug Abuse Patient Records regulations: The Federal rules restrict any use of the information to criminally investigate or prosecute any alcohol or drug abuse patient.[facility] HospitalIn the event this information is protected by the Federal Confidentiality of Alcohol and Drug Abuse Patient Records regulations: The Federal rules restrict any use of the information to criminally investigate or prosecute any alcohol or drug abuse patient.[facility] HospitalIn the event this information is protected by the Federal Confidentiality of Alcohol and Drug Abuse Patient Records regulations: The Federal rules restrict any use of the information to criminally investigate or prosecute any alcohol or drug abuse patient.[facility] HospitalIn the event this information is protected by the Federal Confidentiality of Alcohol and Drug Abuse Patient Records regulations: The Federal rules restrict any use of the information to criminally investigate or prosecute any alcohol or drug abuse patient.[facility] HospitalIn the event this information is protected by the Federal Confidentiality of Alcohol and Drug Abuse Patient Records regulations: The Federal rules restrict any use of the information to criminally investigate or prosecute any alcohol or drug abuse patient.[facility] HospitalIn the event this information is protected by the Federal Confidentiality of Alcohol and Drug Abuse Patient Records regulations: The Federal rules restrict any use of the information to criminally investigate or prosecute any alcohol or drug abuse patient.[facility] HospitalIn the event this information is protected by the Federal Confidentiality of Alcohol and Drug Abuse Patient Records regulations: The Federal rules restrict any use of the information to criminally investigate or prosecute any alcohol or drug abuse patient.[facility] HospitalIn the event this information is protected by the Federal Confidentiality of Alcohol and Drug Abuse Patient Records regulations: The Federal rules restrict any use of the information to criminally investigate or prosecute any alcohol or drug abuse patient.[facility] HospitalIn the event this information is protected by the Federal Confidentiality of Alcohol and Drug Abuse Patient Records regulations: The Federal rules restrict any use of the information to criminally investigate or prosecute any alcohol or drug abuse patient.[facility] HospitalIn the event this information is protected by the Federal Confidentiality of Alcohol and Drug Abuse Patient Records regulations: The Federal rules restrict any use of the information to criminally investigate or prosecute any alcohol or drug abuse patient.[facility] HospitalIn the event this information is protected by the Federal Confidentiality of Alcohol and Drug Abuse Patient Records regulations: The Federal rules restrict any use of the information to criminally investigate or prosecute any alcohol or drug abuse patient.[facility] HospitalIn the event this information is protected by the Federal Confidentiality of Alcohol and Drug Abuse Patient Records regulations: The Federal rules restrict any use of the information to criminally investigate or prosecute any alcohol or drug abuse patient.[facility] HospitalIn the event this information is protected by the Federal Confidentiality of Alcohol and Drug Abuse Patient Records regulations: The Federal rules restrict any use of the information to criminally investigate or prosecute any alcohol or drug abuse patient.[facility] HospitalIn the event this information is protected by the Federal Confidentiality of Alcohol and Drug Abuse Patient Records regulations: The Federal rules restrict any use of the information to criminally investigate or prosecute any alcohol or drug abuse patient.[facility] HospitalIn the event this information is protected by the Federal Confidentiality of Alcohol and Drug Abuse Patient Records regulations: The Federal rules restrict any use of the information to criminally investigate or prosecute any alcohol or drug abuse patient.[facility] HospitalIn the event this information is protected by the Federal Confidentiality of Alcohol and Drug Abuse Patient Records regulations: The Federal rules restrict any use of the information to criminally investigate or prosecute any alcohol or drug abuse patient.[facility] HospitalIn the event this information is protected by the Federal Confidentiality of Alcohol and Drug Abuse Patient Records regulations: The Federal rules restrict any use of the information to criminally investigate or prosecute any alcohol or drug abuse patient.[facility] HospitalIn the event this information is protected by the Federal Confidentiality of Alcohol and Drug Abuse Patient Records regulations: The Federal rules restrict any use of the information to criminally investigate or prosecute any alcohol or drug abuse patient.[facility] Reason for Visit (unrecogniz ed section and content) Reason Comments New Patient Establish care previ ous pcp was in [place], but did not really have a primary out there. Would like to discuss medications, needs thyroid medication refill. Would like a referral to cardiology for the back of her legs due to the veins, has had blockages in the past. Would like to go to [facility]. Hands shake and she is numb all the time. Had a nerve conduction test in [place]. Feels like she is losing oxygen in her legs, are tired all the time Reason Onset Date Comments Transition Of Care 07/11/2024 Left [facility] 07/10/24 Reason Onset Date Comments Refill Request [...] elevated myocardial infarction) (HCC) NSTEMI Procedures N/A [id number] [address] [place] [address] Phone: tel: Referral ID Status Reason Start Date Expiration Date Visits Re quested Visits Authorized [id number] 1 Reason Onset Date Comments Refill Request 01/07/2025 Reason Onset Date Comments Refill Request 01/07/2025 Atorvastatin. Care Teams (unrecognized sec tion and content) Linter Operator Relationship Specialty Start Date End Date Marianela Edwards DO [address] [place], [place] [id number] PCP - General Family Medicine 06/25/24 Linter Operator Relationship Specialty Start Date End Date Marianela Edwards DO [address] [place], [place] [id number] PCP - General Family Medicine 07/08/24 Marianela Edwards DO [address] [place], [place] [id number] Family Medicine 07/08/24 Ana Guerra, RN Primary Care Chief Digital Officer 07/11/24 Linter Operator Relationship Specialty Start Date End Date Marianela Edwards DO [address] [facility] [place] [id number] PCP - General Family Medicine 07/08/24 Marianela Edwards DO [address] [place] [address] Family Medicine 07/08/24 Ana Guerra, TESHA Primary Care Chief Digital Officer 07/11/24 Linter Operator Relationship Specialty Start Date End Date Marianela Edwards DO [address] [place] [address] PCP - General Family Medicine 07/08/24 Marianela Edwards DO [address] [place] [address] Family Medicine 07/08/24 Ana Guerra, TESHA Primary Care Chief Digital Officer 07/11/24 Linter Operator Relationship Specialty Start Date End Date Marianela Edwards DO [address] [place] [address] PCP - General Family Medicine 07/08/24 Marianela Edwards DO [address] [place] [address] Family Medicine 07/08/24 Ana Guerra RN Primary Care Chief Digital Officer 07/11/24 Linter Operator Relationship Specialty Start Date End Date Marianela Edwards DO [address] [place] [address] PCP - General Family Medicine 07/08/24 Marianela Edwards DO [address] [place] [address] Family Medicine 07/08/24 Linter Operator Relationship Specialty Start Date End Date Marianela Edwards DO [address] [place] [address] PCP - General Family Medicine 07/08/24 Marianela Edwards DO [address] [place] [address] Family Medicine 07/08/24 Linter Operator Relationship Specialty Start Date End Date Marianela Edwards DO [address] [facility] [place] [address] PCP - General Family Medicine 07/08/24 Marianela Edwards DO [address] [facility] [place] [address] Family Medicine 07/08/24 Linter Operator Relationship Specialty Start Date End Date Marianela Edwards DO [address] [facility] [place] [address] PCP - General Family Medicine 07/08/24 Marianela Edwards DO [address] [place] [place] [address] Family Medicine 07/08/24 Linter Operator Relationship Specialty Start Date End Date Marianela Edwards DO [address] [place] [place] [address] PCP - General Family Medicine 07/08/24 Marianela Edwards DO [address] [facility] [place] [address] Family Medicine 07/08/24 Linter Operator Relationship Specialty Start Date End Date Marianela Edwards DO [address] [facility] [place] [address] PCP - General Family Medicine 07/08/24 Marianela Edwards DO [address] [facility] [place] [address] Family Medicine 07/08/24 Linter Operator Relationship Specialty Start Date End Date Marianela Edawrds DO [address] [place] [address] PCP - General Family Medicine 07/08/24 Marianela Edwards DO [address] [facility] [place] [address] Family Medicine 07/08/24 Linter Operator Relationship Specialty Start Date End Date Marianela Edwards DO [address] [place] [address] PCP - General Family Medicine 07/08/24 Marianela Edwadrs DO [address] [place] [address] Family Medicine 07/08/24 Linter Operator Relationship Specialty Start Date End Date Marianela Edwards DO [address] [place] [address] PCP - General Family Medicine 07/08/24 Marianela Edwards DO [address] [place] [place] [address] Family Medicine 07/08/24 Linter Operator Relationship Specialty Start Date End Date Marianela Edwards DO [address] [place] [place] [address] PCP - General Family Medicine 07/08/24 Marianela Edwards DO [address] [place] [address] Family Medicine 07/08/24 Team Status: Active Member [...] Status: Inactive Member Role Status Dates Dr. sIaac Araujo DO Emergency Provider Active Start: December [...] Active Start: December 13, 2024 Dr. Francis Bojoruqez MD Admit Provider Active Star t: December [...] Provider Active Star t: December 13, 2024 Linter Operator Relationship Specialty Start Date End Date Marianela Edwards DO [address] [facility], [place] [phone] PCP - General Family Medicine 07/08/24 Marianela Edwards DO [address] [place] [address] Family Medicine 07/08/24 Linter Operator Relationship Specialty Start Date End Date Marianela Edwards DO [address] [facility] [place] [address] PCP - General Family Medicine 07/08/24 Marianela Edwards DO [address] [place] [address] Family Medicine 07/08/24 Linter Operator Relationship Specialty Start Date End Date Marianela Edwards DO [address] [place] [address] PCP - General Family Medicine 07/08/24 Marianela Edwards DO [address] [place] [address] Family Medicine 07/08/24 Linter Operator Relationship Specialty Start Date End Date Marianela Edwards DO [address] [place] [address] PCP - General Family Medicine 07/08/24 Marianela Edwards DO [address] [place] [address] Family Medicine 07/08/24 Linter Operator Relationship Specialty Start Date End Date Marianela Edwards DO [address] [place] [address] PCP - General Family Medicine 07/08/24 Marianela Edwards DO [address] [place] [address] Family Medicine 07/08/24 Linter Operator Relationship Specialty Start Date End Date Marianela Edwards DO [address] [place] [address] PCP - General Family Medicine 07/08/24 Marianela Edwards DO [address] [place] [address] Family Medicine 07/08/24 Sheba Barker, RN [address] [place] [address] Primary Care Chief Digital Officer 01/07/25 [facility] Transitional Care Pharmacist Pharmacy 01/07/25 02/07/25 Team [...] Attending Provider Active Start: January 07, 2025 Linter Operator Relationship Specialty Start Date End Date Marianela Edwards DO [address] [place] [address] PCP - General Family Medicine 07/08/24 Marianela Edwards DO [address] [place] [address] Family Medicine 07/08/24 Sheba Barker, RN [address] [place] [address] Primary Care Chief Digital Officer 7/7/25 [facility] 01/07/25 02/07/25 Linter Operator Relationship Specialty Start Date End Date Marianela Edwards DO [address] [place] [address] PCP - General Family Medicine 07/08/24 Marianela Edwards DO [address] [place] [address] Family Medicine 07/08/24 Sheba Barker, RN [address] [place], [place] [id number] Primary Care Chief Digital Officer 01/07/25 [facility] 01/07/25 02/07/25 Linter Operator Relationship Specialty Start Date End Date Marianela Edwards DO [address] [place] [address] PCP - General Family Medicine 07/08/24 Marianela Edwards DO [address] [place] [address] Family Medicine 07/08/24 Goals (unrecognized section and [...] BE BASED ON THE PRIMARY CLINICAL RECORDS. [employer] [facility]. provides no warranty or guarantee of the accuracy or completeness of information in this document.
[2025-01-10] MEDS: Heparin Injection (Vial) 5,000 UNIT/ML VIAL 5000 UNIT SC ×3 (05:35→21:15)
--- NOTE | 2025-01-10 08:35 | PN.HOSP_ITS ---
Reason for Visit Reason for Visit: Diagnoses Unspecified systolic (congestive) heart failure (01/07/25) Acute on chronic systolic (congestive) heart failure (01/07/25) Dorsalgia, unspecified (01/07/25) Acute kidney failure, unspecified (01/07/25) Hypoxemia (01/07/25) Other specified abnormal findings of blood chemistry (01/07/25) Subjective Subjective Patient met with social work who gave options about potential living arrangements after discharge. Overall is feeling well. Would feel much more comfortable being discharged on the . Objective Data Objective Data Vital Signs: Vital Signs Temp Pulse Resp BP Pulse Ox O2 Del Method O2 Flow Rate 36.2 C L 68 18 133/57 H 96 Nasal Cannula 2 01/10/25 04:18 01/10/25 05:32 01/10/25 04:18 01/10/25 05:32 01/10/25 07:59 01/10/25 07:59 01/10/25 07:59 Oxygen Flow Rate (L/min) 2 Oxygen Delivery Method Nasal Cannula Weight: 53.5 kg Body Mass Index (BMI) 23.0 Intake & Output: Intake and Output for Last 24 Hours 01/08/25 01/09/25 01/10/25 23:59 23:59 23:59 Intake Total 700 / 700 940 / 940 Output Total 875 / 875 2350 / 2350 300 / 300 Balance -175 / -175 -1410 / -1410 -300 / -300 Lab / Micro Data 01/08/25 05:24 01/10/25 09:46 Labs: Laboratory Results - last 24 hr 01/09/25 09:16: Sodium 137, Potassium 3.9, Chloride 102, Carbon Dioxide 22.6, Anion Gap 12, BUN 31 H, Creatinine 2.19 H, Estim Creat Clear Calc 17.66 L, Est GFR (MDRD) Non-Af 24 L, BUN/Creatinine Ratio 14.2, Glucose 140 H, Calcium 8.7 Rhythm Strip Rhythm Strip: Sinus bradycardia Rate: 55 Ectopy: None Physical Exam Const alert and no apparent distress HEENT head/scalp atraumatic, moist oral mucous membranes, oropharynx normal, dentition normal and gingiva normal Resp normal respiratory effort, no retractions, no use of accessory muscles and clear to auscultation bilaterally Cardio regular rate, regular rhythm, S1 normal heart sound and S2 normal heart sound GI normal to inspection, nondistended, normoactive bowel sounds, soft to palpation, non-tender and non-distended Neuro oriented x3 and CN's II-XII intact bilaterally Assessment & Plan Assessment/Plan (1) HFrEF (heart failure with reduced ejection fraction): PLAN: EF 45% from echo on 12/11. Complicated by severe MR. CTA chest with mild pulmonary vascular congestion and pleural effusion Continue IV furosemide Continue metoprolol succinate 12.5/d, hydralazine 10/TID, empagliflozin 10/d No ACEi/ARB given REJI. (2) REJI (acute kidney injury): PLAN: Up from 1.51 from last month, discharged with Cr of 2.22. Admitted with creatinine 2.51, down to 2.19. Vernalis to be cardiorenal syndrome. (3) Elevated troponin: PLAN: Likely type 2, demand ischemia from CHF exacerbation; but also skewed given REJI. (4) Back pain: PLAN: reviewed EMG/NCT test with the patient. She had right carpal tunnel. MRI cspine showed spondylolisthesis. No cord impingement. Therefore, I do not feel it is neurologic. On exam it is more consistent with muscloskeletal, either costochondritis v muscle strain. Plan: scheduled acetaminophen, cyclobenzaprine, lidoderm patch. PLAN: Plan CAD: recent PCI to RCA x3 on 01/02. Continue clopidogrel, HIS, ASA. VT arrest: s/p AICD. continue amiodarone hypothyoidism: levothyroxine Paranoia: seen by psych at [facility]. follow up with psych as oupt. COPD: noted on CT. Recommend outpt follow up with pulmonary for formal testing. PAD: significant bilateral disease with claudication. Seen by Vascular surgery at [facility] and recommended med mgmt with outpt follow up with Dr. Byrne. VTE prophylaxis: SQ heparin. Disposition: To be determined. Over the patient will be ready for discharge on the . Reassurance was provided to her by myself as well as the patient's nurse. She understands that she will likely be discharged tomorrow. The medically patient overall is doing well she does require much reassurance and I feel another day in the hospital will hopefully help reassure her and hopefully prevent readmission. Greater than 50 minutes of which greater than 50% time was bedside discussing the patient along with the her nurse and providing reassurance, discussing the home oxygen assessment and evaluation. Charges/Coding Visit Charges Inpatient E&M: 74562 Subs Hosp L3
[2025-01-10] MEDS: Ensure Plus High Protein 120 ML LIQUID PO ×3 (09:07→17:26)
[2025-01-10] MEDS: Aspirin E.C. 81 MG Tablet PO (09:07)
[2025-01-10] MEDS: Lidocaine 5% Patch 1 PATCH TOPICAL (09:11)
[2025-01-10 10:55] LABS: Anion Gap 11 (5-15); BUN 28 mg/dL (4-19); BUN/Creat Ratio 13.0 RATIO (10-20); Calcium,Total 8.8 mg/dL (7.6-11.0); Carbon Dioxide 25.9 mmol/L (21.0-32.0); Chloride 102 mmol/L (98-108); Estimated Creatinine Clearance 17.91 ml/min (50-250); Glucose 128 mg/dL (70-99); Potassium 3.8 mmol/L (3.3-5.1)
--- NOTE | 2025-01-10 12:57 | CASEMGMT ---
Social Work VM left with Behavioral health. SW will await return call. ALTON Rutledge
[2025-01-10] MEDS: Polyethylene Glycol 3350 17 GM PACKET PO ×2 (15:03→21:15)
--- NOTE | 2025-01-10 15:11 | CASEMGMT ---
Social Work SW set up appointment for pt with Susi Alonso CNP with [facility]. Pt notified and is agreeable. DELL also set up transportation to appointment with the [facility] Van. Appt information entered in discharge paperwork. 03/13/25 2pm. DELL also provided pt with written information on [facility] Transportation. ALTON Rutledge
[2025-01-10] MEDS: 0.9% Saline Lock 10 ML Syringe IV (17:26)
[2025-01-10] MEDS: MELATONIN 3 MG TABLET PO (23:44)
[2025-01-11] VITALS (10 sets, daily range): BP systolic 97–126; BP diastolic 55–70; PULSE 57–69; RESP 16–78; TEMP 36.4–36.6; O2SAT 86–95
[2025-01-11] MEDS: Heparin Injection (Vial) 5,000 UNIT/ML VIAL 5000 UNIT SC ×2 (06:29→13:34)
[2025-01-11 07:19] LABS: Anion Gap 10 (5-15); BUN 29 mg/dL (4-19); BUN/Creat Ratio 14.7 RATIO (10-20); Calcium,Total 8.9 mg/dL (7.6-11.0); Carbon Dioxide 25.7 mmol/L (21.0-32.0); Chloride 102 mmol/L (98-108); Estimated Creatinine Clearance 19.43 ml/min (50-250); Glucose 120 mg/dL (70-99); Potassium 4.5 mmol/L (3.3-5.1)
[2025-01-11] MEDS: Metoprolol(XL)Succ 25 MG Tablet 12.5 MG PO (09:58)
[2025-01-11] MEDS: Aspirin E.C. 81 MG Tablet PO (09:59)
[2025-01-11] MEDS: Ensure Plus High Protein 120 ML LIQUID PO ×2 (09:59→13:34)
[2025-01-11] MEDS: Lidocaine 5% Patch 1 PATCH TOPICAL (09:59)
--- NOTE | 2025-01-11 11:57 | PCM.DC.SUM ---
Providers Date of Admission: 01/07/25 Primary Care Physician: Dr. Marianela Goodson, DO Reason For Visit: MILD CHF EXACERBATION W/ HYPOXIA Diagnosis Discharge Diagnosis (1) HFrEF (heart failure with reduced ejection fraction): Status: Acute Code(s): I50.20 - Unspecified systolic (congestive) heart failure Plan: EF 45% from echo on 12/11. Complicated by severe MR. CTA chest with mild pulmonary vascular congestion and pleural effusion Continue IV furosemide Continue metoprolol succinate 12.5/d, hydralazine 10/TID, empagliflozin 10/d No ACEi/ARB given REJI. (2) REJI (acute kidney injury): Status: Acute Code(s): N17.9 - Acute kidney failure, unspecified Plan: Up from 1.51 from last month, discharged with Cr of 2.22. Admitted with creatinine 2.51, down to 2.19. [place] to be cardiorenal syndrome. (3) Elevated troponin: Status: Resolved Code(s): R79.89 - Other specified abnormal findings of blood chemistry Plan: Likely type 2, demand ischemia from CHF exacerbation; but also skewed given REJI. (4) Back pain: Status: Acute Code(s): M54.9 - Dorsalgia, unspecified Plan: reviewed EMG/NCT test with the patient. She had right carpal tunnel. MRI cspine showed spondylolisthesis. No cord impingement. Therefore, I do not feel it is neurologic. On exam it is more consistent with muscloskeletal, either costochondritis v muscle strain. Plan: scheduled acetaminophen, cyclobenzaprine, lidoderm patch. Plan CAD: recent PCI to RCA x3 on 01/02. Continue clopidogrel, HIS, ASA. VT arrest: s/p AICD. continue amiodarone hypothyoidism: levothyroxine Paranoia: seen by psych at [facility]. follow up with psych as oupt. COPD: noted on CT. Recommend outpt follow up with pulmonary for formal testing. Patient endorsing desire to follow-up with clinic clinic providers and she may follow-up with Dr. Borja with [facility] for pulmonary. PAD: significant bilateral disease with claudication. Seen by Vascular surgery at [facility] and recommended med mgmt with outpt follow up with Dr. Byrne. VTE prophylaxis: SQ heparin. Disposition: To be determined. Over the patient will be ready for discharge on the . Reassurance was provided to her by myself as well as the patient's nurse. She understands that she will likely be discharged tomorrow. The medically patient overall is doing well she does require much reassurance and I feel another day in the hospital will hopefully help reassure her and hopefully prevent readmission. Greater than 50 minutes of which greater than 50% time was bedside discussing the patient along with the her nurse and providing reassurance, discussing the home oxygen assessment and evaluation. Medications at Discharge Home Medications amiodarone 200 mg tablet 200 mg PO DAILY heart rate 01/07/25 aspirin 81 mg tablet,delayed release (Adult Aspirin Regimen) 81 mg PO DAILY heart health 01/07/25 atorvastatin 80 mg tablet 80 mg PO DAILY cholesterol 01/07/25 clopidogrel 75 mg tablet 75 mg PO DAILY anti platelet 01/07/25 empagliflozin 10 mg tablet (Jardiance) 10 mg PO DAILY diabetes 01/07/25 hydralazine 10 mg tablet 20 mg PO Q8H blood pressure 01/07/25 hydroxyzine HCl 10 mg tablet 10 mg PO Q6H PRN itching 01/07/25 ibandronate 150 mg tablet 150 mg PO QMONTH bone health 01/07/25 levothyroxine 100 mcg tablet (Synthroid) 100 mcg PO DAILY thyroid 01/07/25 metoprolol succinate 25 mg tablet,extended release 24 hr 12.5 mg PO DAILY blood pressure 01/07/25 torsemide 20 mg tablet 20 mg PO DAILY diuretic 01/07/25 acetaminophen 500 mg tablet 1,000 mg (2 x 500 mg) PO Q8 #0 tabs 01/11/25 cyclobenzaprine 10 mg tablet 10 mg PO TID #21 tabs 01/11/25 furosemide 40 mg tablet (Lasix) 40 mg PO DAILY #30 tabs 01/11/25 lorazepam 1 mg tablet 1 mg PO TID PRN anxiety #10 tabs 01/11/25 nicotine 21 mg/24 hr daily transdermal patch 1 patch transdermal DAILY #14 ea 01/11/25 oxycodone 5 mg tablet 5 mg PO Q6H PRN pain (scale score 7-10) 3 days #12 tabs 01/11/25 Hospital Course Operations None Procedures None Summary of Care Provided Minutes Spent on Discharge: 35 Hospital Course: Sodium this is a 61-year-old female presents with heart failure with pulmonary vas congestion as well as pleural effusions. Patient was admitted to our hospital recently where she had a non-STEMI had a high-grade lesion and was transferred to an outside hospital for evaluation for CABG. CABG was not deemed viable as she has severe PAD and would not be able to harvest any arteries so they performed a high risk PCI. Patient also noted to have severe mitral regurgitation. Patient was not proceed with the valve replacement during that hospitalization. While she was here patient was diuresed and overall did well. Patient had a lot of concerns in regards to her disposition. If she can go somewhere else other than returning home so social work did assist in regards to providing information to her. Patient did require a lot of assistance and by sat with patient's nurse on the and provided reassurance to her. Agreed to monitor overnight and then check her oxygen evaluation for home-going purposes on the and she would be discharged thereafter. Patient was provided resources in regards to counseling and psychiatric services. Patient also does claim short of breath. Unclear how much is related with her heart versus underlying, previous undiagnosed lung disease or even anxiety. The patient overall seems to be less anxious during this admission than previous admission. Patient appears accepting of the current plan. Patient having significant pain in her right upper chest which I feel is more costochondritis and its actually more posterior seem to be rib or muscle. Patient will have written out scheduled acetaminophen to help with that as well as a short course of as needed oxycodone. Patient also was doing well but had more anxiety when her sister arrived today. Will give her short course of as needed lorazepam as patient is having difficulty time coping with all these numerous medical issues and follow-ups and so forth. Weight / BMI Weight Weight: 53.5 kg Body Mass Index (BMI) 23.0 ABG / Lab / Microbiology Data 01/08/25 05:24 01/11/25 06:18 Laboratory: Laboratory Results - last 24 hr 01/11/25 06:18: Sodium 137, Potassium 4.5, Chloride 102, Carbon Dioxide 25.7, Anion Gap 10, BUN 29 H, Creatinine 1.99 H, Estim Creat Clear Calc 19.43 L, Est GFR (MDRD) Non-Af 27 L, BUN/Creatinine Ratio 14.7, Glucose 120 H, Calcium 8.9 D/C Instructions Discharge Diet: - (Fluid restrict 1.5 liters (50 ounces, 6.5 cups) of fluid per day. ) DC O2, CPAP, BIPAP Needs Home O2 Discharge instructions: Yes Type of respiratory needs?: Oxygen Oxygen frequency: At rest and With Ambulation Oxygen liters per minute during Ambulation: 3 DC home with Oxygen: Yes Home O2 MD Review: I have reviewed the oxygen testing, and the patient qualifies for home oxygen equipment and portability. The patient is mobile in the home and the community. Meaningful Use Info Meaningful Use Meaningful Use Diagnoses (Choose all that apply): CHF CHF COLLEEN/ARB ordered at discharge?: No Reason COLLEEN/ARB not ordered?: Worsening renal disease Documented LVEF (%): 45 Discharge Plan Admission Admit Date/Time: 01/07/25 23:04 Primary Reason for Your Visit: CHF exacerbation Attending Provider: Cristopher Forbes Primary Care Provider: Marianela Goodson Consulting Providers: Hamilton Mehta Instructions Additional Instructions / Restrictions: Follow-up with your routine follow-up appointments with cardiology as previously scheduled. Discharge Orders/Prescriptions Prescriptions: New cyclobenzaprine 10 mg Tablet 10 mg PO TID Qty: 21 0RF acetaminophen 500 mg Tablet 1,000 mg PO Q8 Qty: 0 0RF furosemide [Lasix] 40 mg tablet 40 mg PO DAILY Qty: 30 0RF nicotine 21 mg/24 hr patch 24 hour 1 patch transdermal DAILY Qty: 14 0RF oxycodone 5 mg tablet 5 mg PO Q6H PRN (Reason: pain (scale score 7-10)) 3 Days Qty: 12 0RF lorazepam 1 mg tablet 1 mg PO TID PRN (Reason: anxiety) Qty: 10 0RF Continued hydralazine 10 mg tablet 20 mg PO Q8H atorvastatin 80 mg tablet 80 mg PO DAILY amiodarone 200 mg tablet 200 mg PO DAILY clopidogrel 75 mg tablet 75 mg PO DAILY hydroxyzine HCl 10 mg tablet 10 mg PO Q6H PRN Jardiance 10 mg tablet 10 mg PO DAILY torsemide 20 mg tablet 20 mg PO DAILY metoprolol succinate 25 mg tablet extended release 24 hr 12.5 mg PO DAILY ibandronate 150 mg tablet 150 mg PO QMONTH levothyroxine [Synthroid] 100 mcg tablet 100 mcg PO DAILY aspirin [Adult Aspirin Regimen] 81 mg tablet,delayed release (DR/EC) 81 mg PO DAILY Referrals / Follow Up: Mel Borja MD [Non-Staff] - Within 1 Month (pulmonary referral) Marianela Goodson DO [Primary Care Provider] - Within 2 Weeks Susi Alonso NP-C [Med Staff - Insulation Cupola Operator] - 03/13/25 2:00 pm (The [facility] van will pick you up at 1:30 to take you to appointment and bring you home) Disposition Disposition (needs filled in before D/C Order can be placed): Home, Self Care Charges/Coding Visit Charges Inpatient E&M: 44153 Disch Hosp >30min
--- NOTE | 2025-01-11 15:40 | CASEMGMT ---
TESHA SUBRAMANIAN NOTE: Pt qualifies for O2 @ 2 L/M @ rest and 3 L/M w/exertion. Script received from Dr Forbes and sent to [facility] via [employer]. Jayme @ [facility] aware. Julien CARDOSO RN CM
--- NOTE | 2025-01-11 16:11 | CASEMGMT ---
Social Work SW met with pt and with pt's sister Leena to discuss discharge. Pt sister with concerns regarding pt return home. SW provided active listening to sisters concerns. During conversation, pt told her sister multiple times that she feels ready to return home. SW offered home health services to pt and sister. Sister confirms that this would be helpful and make her feel better about taking pt home. SW also explained procedure for home oxygen and that case management would arrange for this prior to pt leaving the hospital. SW discussed with pt and sister follow up appointments with specialists for continued treatment for ongoing medical issues and pt and sister confirmed that appointments have already been made and sister is aware of when the appointments are. Sister inquiring about medical records. SW provided pt with [facility] [employer] rack card and explanation of how to sign up. SW also explained how to obtain hard copy of medical records. After discussion. Pt and sister agreeable to discharge home today. Options for home health care provided and pt and sister preference is [facility]. SW also provided options on [employer] and pt preference is [facility]. Referral to [facility] for SN/PT/SW and pt has been accepted with start of care on Tuesday. RNCM notified and set up home oxygen. Phone call placed to pt sister and notified that discharge is in and sister can now come and pick pt up. Pt to be at the main entrance at 5:30 to meet sister. Sister and pt agreeable. Nursing updated and able to accomodate. ALTON Rutledge
--- NOTE | 2025-01-14 13:04 | CCN.REFER ---
PATIENT DOES NOT QUALIFY FOR CCN DUE TO BEHAVIORAL ISSUES AND LIABILITY WITH STUDENT HEALTH COACHES IN THE HOME.
== END 2025-01-11 17:26 | disposition home or self-care (01) | DRG 280 ==
LOC: ED 22:16 → PCU 01-08 01:11
PROVIDERS: Admitting Provider Hospitalist; Emergency Provider Emergency Medicine; PCP Family Medicine
DX: I13.0 Hypertensive heart and chronic kidney disease with heart failure and stage 1 through stage 4 chronic kidney disease, or unspecified chronic kidney disease (principal); I21.A1 Myocardial infarction type 2; I50.23 Acute on chronic systolic (congestive) heart failure; N17.9 Acute kidney failure, unspecified; F22 Delusional disorders; I73.9 Peripheral vascular disease, unspecified; N18.32 Chronic kidney disease, stage 3b; J43.9 Emphysema, unspecified; I34.0 Nonrheumatic mitral (valve) insufficiency; E03.9 Hypothyroidism, unspecified; F39 Unspecified mood [affective] disorder; E78.5 Hyperlipidemia, unspecified; I25.10 Atherosclerotic heart disease of native coronary artery without angina pectoris; M54.9 Dorsalgia, unspecified; I25.2 Old myocardial infarction; M25.511 Pain in right shoulder; Z86.711 Personal history of pulmonary embolism; Z79.899 Other long term (current) drug therapy; Z95.810 Presence of automatic (implantable) cardiac defibrillator; Z79.84 Long term (current) use of oral hypoglycemic drugs; R09.02 Hypoxemia; Z79.02 Long term (current) use of antithrombotics/antiplatelets; Z87.891 Personal history of nicotine dependence; Z79.82 Long term (current) use of aspirin; Z95.0 Presence of cardiac pacemaker; Z79.890 Hormone replacement therapy; R79.89 Other specified abnormal findings of blood chemistry
CPT/HCPCS: 36415; 71045; 71275; 80048; 83880; 84484; 85025; 85027; 93005; 94668; 97802; 99285; Q9967; A4216; J1938; J2405

== ENCOUNTER → 2025-03-28 | Outpatient (CLI) | payer MEDICARE, SELFPAY ==
[2025-03-28 10:57] LABS: Mucous, Urine 0 SEEN /hpf (<or=2+); Red Blood Cells-Urine 0 SEEN /hpf (0-5)
[2025-03-28 11:27] LABS: Color, Urine Straw (Yellow); Glucose, Dipstick 250 mg/dl (Normal); Ketone-Dipstick Negative (Negative); Leukocyte Esterase-Dipstick Negative /ul (Negative); Nitrite-Dipstick Negative (Negative); Occult Blood-Urine Negative /ul (Negative); Protein-Dipstick Negative (Negative); Specific Gravity, Urine 1.010 (1.002-1.030); Urine Bilirubin Dipstick Negative (Negative)
[2025-03-28 11:39] LABS: Squamous Epithelial Cells - UA 0-5 SEEN /hpf (5-10)
[2025-03-28 12:04] LABS: Albumin, Serum 4.4 g/dL (3.4-4.8); Anion Gap 14 (5-15); BUN 21 mg/dL (4-19); BUN/Creat Ratio 12.2 RATIO (10-20); Calcium,Total 9.5 mg/dL (7.6-11.0); Carbon Dioxide 25.0 mmol/L (21.0-32.0); Chloride 99 mmol/L (98-108); Glucose 103 mg/dL (70-99); Potassium 3.8 mmol/L (3.3-5.1)
== END | disposition home or self-care (01) ==
LOC: POLAB3 10:55
PROVIDERS: PCP Family Medicine; Visit Provider Internal Medicine Nephrology
DX: N18.4 Chronic kidney disease, stage 4 (severe) (principal)
CPT/HCPCS: 36415; 80069; 81001

== ENCOUNTER → 2025-04-09 | Outpatient (CLI) | payer MEDICARE, SELFPAY ==
--- NOTE | 2025-04-09 10:07 | PCM.CR.HP2 ---
CR - History & Physical General Arrival date:: 04/09/25 Arrival time:: 10:07 Date of Referral:: 04/01/25 Date of CR Evaluation:: 04/09/25 Referring Physician: Dr. Aguayo Primary Diagnosis: PCI History of Present Cardiac Event Onset Date PTCA or coronary stenting:: Yes (01/02/25 onset) Vessel: RCA Medications Ambulatory Orders ?Medication ?Instructions ?Recorded amiodarone 200 mg tablet 200 mg PO DAILY heart rate 01/07/25 aspirin 81 mg tablet,delayed 81 mg PO DAILY heart health 01/07/25 release (Adult Aspirin Regimen) atorvastatin 80 mg tablet 80 mg PO DAILY cholesterol 01/07/25 clopidogrel 75 mg tablet 75 mg PO DAILY anti platelet 01/07/25 empagliflozin 10 mg tablet 10 mg PO DAILY diabetes 01/07/25 (Jardiance) hydralazine 10 mg tablet 20 mg PO Q8H blood pressure 01/07/25 ibandronate 150 mg tablet 150 mg PO QMONTH bone health 01/07/25 levothyroxine 100 mcg tablet 100 mcg PO DAILY thyroid 01/07/25 (Synthroid) metoprolol succinate 25 mg 12.5 mg PO DAILY blood pressure 01/07/25 tablet,extended release 24 hr torsemide 20 mg tablet 20 mg PO DAILY diuretic 01/07/25 acetaminophen 500 mg tablet 1,000 mg (2 x 500 mg) PO Q8 #0 tabs 01/11/25 lorazepam 1 mg tablet 1 mg PO TID PRN anxiety #10 tabs 01/11/25 sertraline 25 mg tablet 25 mg PO QDAY #30 tabs 03/13/25 Allergies Allergies No Known Allergies Allergy (Verified 03/13/25 14:01) Sleep Disorder Evaluation Hx of Sleep Apnea: No Do you snore loudly (louder than talking or can be heard through closed doors)?: No Do you often feel tired/ fatigued/ sleepy during daytime?: No Has anyone observed you stop breathing during sleep?: No History of Hypertension (for STOP score): No STOP Results: Negative Advanced Directives Advanced Directives Do you have a Healthcare Power of Copra Sampler?: Yes Living Will: Yes Advance Directives on File: No DNR Order?:: No Past Medical History Covid-19 Screening Physicial Symptoms Other Clinical Concerns Exposure Risk Pertinent Comorbidities 65 years or older:: Yes Has a serious heart condition:: Yes Past Medical Illness Medical History Cardiac defibrillator in place HFrEF (heart failure with reduced ejection fraction) Cardiomyopathy History of CAD (coronary artery disease) COPD (chronic obstructive pulmonary disease) Chronic kidney disease Psychosis Protein calorie malnutrition Low TSH level NSTEMI, initial episode of care Smoking 1/2 pack a day or less Peripheral vascular disease Congestive heart failure Carpal tunnel syndrome on right Closed displaced bicondylar fracture of left tibia with routine healing CKD (chronic kidney disease) Cannabis use disorder HLD (hyperlipidemia) Tobacco use Carotid arterial disease Hypertension Past Surgical History Surgical History Hx of heart artery stent History of CEA (carotid endarterectomy) History of hip surgery Family History Summary Family History Mother , 89 Hypertension Pulmonary fibrosis Heart disease Glaucoma Father , 80 Hypertension Heart disease Diabetes Social History Smoking History Smoking Status: Former smoker Years Smokin Packs Smoked per Day: 1 (Stopped 3 months ago) Alcohol Use Alcohol Usage: Yes (rare) Substance Abuse Hx Substance Use: Yes (Pt has a hx of substance abuse. Pt is no longer using drugs.) Occupation Occupation (List type of work in comments):: Retired Social Environment Status Marital Status: Current Living Arrangements Living Environment:: Family (lives with sister) Safety Do you feel safe in your surroundings?: Yes Assistance Do you need any assistance at home?: none Review of Systems Review of Systems Hints Review of Present Symptoms: Reports Shortness of Breath with Exertion, PVD, Appetite - Normal, Appetite - Special Diet and Sleep - Normal; Denies Shortness of Breath at Rest, Operative Discomfort, Angina, Wound Healing, Dizziness/Lightheadedness, Fatigue, Heart Arrhythmia/Irregularities or Sexual Changes Pain Is Patient Pain Free?: Yes Risk Factor Assessment Chief Complaint Chief Complaint: PCI Vital Signs Pulse Ox: 96 Blood Pressure: 120/74 Pulse Pulse Rate: 76 Hypertension Blood Pressure Sitting - Right Arm: 120/74 Obesity Height: 5 ft Weight:: 116 lb Weight in Pounds: 116.0 lbs Body Mass Index (BMI): 22.6 Nutritional Referral for Obesity: No Physical Inactivity Physical Inactivity: Reg Exercise 30 min/day Risk Stratification Risk Guidelines: Moderate Risk: Risk Factor for Diabetes, Risk Factor for Obesity, Risk Factor for Hypertension and Risk Factor for Sedentary Lifestyle and Highest Risk: Risk Factor for Smoking, Risk Factor for Dyslipidemia and Risk Factor for Depression For Smoking Smoking Risk Guidelines For Dyslipidemia Dyslipidemia Risk Guidelines For Diabetes Mellitus Diabetes Risk Guidelines For Obesity/Overweight Obesity/Overweight Risk Guidelines For Hypertension Hypertension Risk Guidelines For Sedentary Lifestyle Sedentary Lifestyle Risk Guidelines For Depression Depression Risk Guidelines Family History Family History Mother , 89 Hypertension Pulmonary fibrosis Heart disease Glaucoma Father , 80 Hypertension Heart disease Diabetes Motivation Motivation to Participate On a scale of 1 to 10, how prepared are you to commit to attending program?: 9 What do you see as barriers to successfully being able to complete the program?: nothing What do you see as the benefits of succesfully completing the program? In other words, what do you hope to get out of participating in the program?: stronger, improved energy Are there issues you are dealing with that will interfere with completing the program?: no Do you have a spouse or signficant other, family or friends who will help support you to complete the program?: sister
[2025-04-09 10:22] VITALS: BP 120/74; PULSE 76; O2SAT 96
--- NOTE | 2025-04-09 10:22 | CR.ITP_ITS ---
Diagnosis General Information Admitting Diagnosis: PCI Personal Learning Style:: Audio/Visual Barriers to Learning: No Barriers Stage of change r/t lifestyle modifications:: Contemplation Gave educational material for:: Treating Heart Disease, How The Heart Works, What it means to have Heart Disease, How Coronary Artery Disease is Diagnosed, Heart Procedures, What Heart Medications Do, Risk Factors & Modifications, Living an Active Life, Nutrition, Emotions & Heart Disease, Stress Management & Relaxation and Sleep Disorders & Heart Disease Education/Goals Cardiac Rehabilitation Goals Personal Goals: Initial Assessment: Improve management of stress and emotions, Improve knowledge of cardiac disease, Improve muscle strength and endurance, Improve diet and eating habits (eat healthier) and Control risk factors (learn risk factor modification) Scale for measuring improvement of personal goals Diagnosis & Disease Process Outcomes/Goals: Pt IDs own risk factors & lifestyle modifications by Session 10, Verbalizes symptoms of angina & response by session 3., Pt independently manages and Other Additional Outcomes/Goals: Plan/Interventions: Assist Pt to ID & engage in lifestyle modification to reduce CVD risk, Instruct on individual risk factors, Review symptoms of angina & emergency actions, Review secondary diagnosis & identify educational needs. and Other see comment 30 day Reassessments:: Not Met 30 day Reassessments:: Not Met 30 day Reassessments:: Not Met 30 day Reassessments:: Not Met Final Reassessments:: Not Met Safety Referral to Physical Therapy: No Referral to [facility] Case Management: No Fall Risk Assessed:: Yes Assistive Devices:: None Exercise - Initial Assessment Visit Date of Eval: 04/09/25 (initial eval) Mets: Pre-: >5 METS for 30 minutes by discharge Physician Prescribed Exercise Modalities: Treadmill, Rower, Jessi [place] AD-7, SciFit Stepper, SciFit Pro- II Ergometer and SciFit Lateral [place] Frequency: 3x/week for 12 weeks [36 sessions] Intensity: 60-80% of age predicted maximum heart rate reserve Duration: 30 - 45 minutes Current METSs:: 3 Target Heart Rate:: 91-114 Resting Blood Pressure: 120/74 EKG Type: NSR Outcomes & Goals Goals:: Verbalizes understanding of THR, RPE & goal METS by session 6, Documents in home exercise log/reports 30 min aerobic 5 day/wk by DC, Demonstrates accurate pulse taking by DC and Other additional outcome/goals: see below Intervention & Plan Exercise Program Goals: Instruct on personal THR & RPE, Instruct on MET level & personal MET goal, Show patient to take own pulse /validate performance until accurate, Instruct on home exercise and Other additional plan/int Physical Activity Home Exercise Physical Activity - Home Exercise: Safe Exercise, Warm-up, Self-monitoring, Cool-Down, Home Exercise > 30 min Daily and Sitting Time <3 hours/daily Outcomes & Goals Outcomes/Goals: Demonstrates correct Warm-up/exercise Cool-Down (S3) if = 2.5 METs, Verbalizes symptoms of exercise intolerance by Session 3 (S3), Demonstrate safe equipment use (S3) & follows exercise prescrition (6) and Other: See below Intervention & Plan Plan/Intervention: Instruct warm-up & cool-down if exercising at > 2 METs, Instruct on symptoms of exercise intolerance & actions to take, Instruct & monitor on saf, Assess intial functional capacity & safety risk and Other See below Nutrition - Initial Assessment Program Goals Nutrition Program Goals Patient has diagnosis of Hyperlipidemia (ICD E78)?: Yes Visit Date of Eval: 04/09/25 (intial eval ) Cholesterol/Lipids (Other Core Measures) Determine presence & major risk factors that modify LDL goal: Cigarette smoking, Hypertension or hypertensive medication, Low HDL cholesterol <40 mg/dL*, Family history of premature CHD in Male < 55 years: female <65 yearsFa and Age men > 45 years; women >/= 55 years Outcomes/Goals: Pt IDs own risk factors & lifestyle modifications by Session 10, Verbalizes symptoms of angina & response by session 3., Pt independently manages and Other Additional Outcomes/Goals: Intervention/Plan: Advocate for lipid panel cholesterol medication if applicable, Instruct on personal lipid levels & lipid goals/NCEP guidelines, Instruct on cholesterol and Other additional plan/int Referral to dietitian:: No (Nutrition survey score 0.) Diabetes (Other Core Measures) Diabetes Type: Not Applicable Weight Mgt (Other Care) Height: 5 ft Weight:: 116 lb BMI: 22.6 Diagnosis Overweight/Obesity BMI> 30% ICD-10 E66: No Diagnosis High BMI/Morbid Obesity BMI> 35% ICD-10 Z68: No Outcomes/Goals: Pt sets, maintains & shows weight loss goal & trend during rehab and Other additional outcomes/goals Intervention/Plan: Instruct on ideal BMI & set weight loss goal w/patient, Assist pt to ID & incorporate diet changes for weight loss by S9, Refer to Structured Weight Loss program as appropriate, Encourage goal of using 250- 300dcal per session for weight loss and Other additional plan/interventions Healthy Eating Habits Will attend diet classes:: Yes Outcomes/Goals:: Consume diet rich in vegs,fruits,whole grain/high fiber,fish,lean meat, Limit sat/trans fats,cholesterol & added salts & sugars and Other additional outcome/goals: Intervention/Plan:: Assess current eating habits and Other Additional plan/interventions Education Gave educational materials for:: Signs & symptoms of hypoglycemia, Signs & symptoms of hyperglycemia and Healthy eating Core - Initial Assessment Visit Date of Eval: 04/09/25 Medication Compliance Preventative Medication(s):: Aspirin, Clopidogrel/P2Y12 inhibit, Statin/lipid and Beta sabra H/O mental health issues: depression, anxiety, or addiction?: Yes Doesn?t believe in the benefits of treatment?: No Believes medications are unnecessary or harmful?: No Has a concern about medication side effects?: No Expresses concern over the cost of medications?: No Outcomes/Goals: Verbalizes medications,desired effect & common side effects @ DC, Pt self-reports following medication regimen, Keeps card in wallet w/medications listed by DC and Other additional outcome/goals: Interventions/plans: Instruct on medication effects & side effects, Review medication list w/patient every two weeks, Instruct importance of taking meds as ordered & assist problem solving and Other additional Tobacco Use Tobacco Use: Cigarettes How many cigarettes do you smoke per day?: 20 Years Smokin (Pt stopped 3 months ago) Outcomes/Goals: Smoking cessation achieved or maintained by discharge, Identify aids/strategies for achieving smoking cessation by session 6 and Other additional outcome/goals Interventions/plan: Instruct on effects of smoking & provide smoking cessation resource, Assist pt to set quit date & provide encouragement, Assist pt to develop strategies to achieve/maintain quit date, Assist pt w/nicotine replacement & medication for cessation success and Other additional plan/interventions Hypertension Hypertension Diagnosis:: Not Applicable Resting Blood Pressure:: 120/74 [place] [employer] Hypertension Guidelines Outcomes/Goals: Able to verbalize/achieve optimal blood pressure <130/80, Incorporates diet changes & exercise for blood pressure control by DC and Other additional outcomes/goals Interventions/plan: Instruct on optimal blood pressure, hypertension & medications, Instruct on effects of sodium, alcohol, stress, exercise &hypertension and Other additional plan/interventions Tobacco Cessation Referral Smoking Cessation Referral:: No Individual Education/Counseling:: No Education Schedule Given:: Yes Psychosocial - Initial Assess VIsit Date of Eval: 04/09/25 (initial eval ) History of previous Mental disease:: Yes History of Emotional Disorders: Anxious (Pt is on medication for anxiety. Pt declines counseling at this time.) Psychosocial Test Tool Used:: PHQ-9 Questionnaire phq-9 Severity See PHQ-9 Score: 5 Referral to Behavioral Health PS - Interventions: Yes: Attend Stress Management Classes Outcomes/Goals: See list Psychosocial Outcomes/Goals:: ID's personal stressors & 2 strategies to manage stress by discharge and Other Additional outcome/goals: Intervention/Plan: See List Interventions/Plan:: Assess stressors,coping strategies & signs of derpression on admission, Instruct/assist pt to develop coping & personal stress Mgt strategies, Refer to Behavioral Health if appropriate, Refer to Physician if appropriate, Instruct patient to recognize signs & symptoms of depression, Instruct patient to recog and Other additional plan/intervention Patient Health Questionnaire PHQ-9 Screening Initial Assessment: 1. Little interest or pleasure in doing things: Several days 2. Feeling down, depressed, or hopeless: Several days 3. Trouble falling or staying asleep, or sleeping too much: Not at all 4. Feeling tired or having little energy: Nearly every day 5. Poor appetite or overeating: Not at all 6. Feeling bad about yourself -- or that you are a failure or have let yourself or your family down: Not at all 7. Trouble concentrating on things, such as reading the newspaper or watching television: Not at all 8. Moving or speaking so slowly that other people could have noticed. Or the opposite - being so fidgety or restless that you have been moving around a lot more than usual: Not at all 9. Thoughts that you would be better off , or of hurting yourself in some way: Not at all How difficult have these problems made it for you to do your work, take care of things at home, or get along with other people?: Very difficult Total Score: 5 Nutrition Survey Nutrition Survey Initial: Have you lost >10 lbs over the past 2 months without trying?: No Are you following a special diet at home for diabetes, low fat, or low salt?: No Are you interested in meeting with a dietitian for help understanding your diet?: No Do you eat less than 3 meals a day?: No Do you eat fatty meats (oppe, sausage, ribs, etc), fried foods, desserts, large amounts of salad dressings, margarine, butter, or cheese most days?: No Do you have food allergies? [Enter types in comment field]: No Do you eat in restaurants more than 3 times a week?: No Do you season food with salt, seasoning salt, or garlic salt?: No Do you used canned, boxed, frozen meals, or soups, seasoning packets?: No Total Score:: 0 Exercise - 30-day Assessment Physician Prescribed Exercise Modalities: Treadmill, Rower, [employer] [place] AD-7, SciFit Stepper, SciFit Pro- II Ergometer and SciFit Lateral Filling Station Equipment Mechanic Exercise - 60-day Assessment Physician Prescribed Exercise Modalities: Treadmill, Rower, [employer] AD-7, SciFit Stepper, SciFit Pro- II Ergometer and SciFit Lateral Filling Station Equipment Mechanic Exercise - 90-day Assessment Physician Prescribed Exercise Modalities: Treadmill, Rower, [place] AD-7, SciFit Stepper, SciFit Pro- II Ergometer and SciFit Lateral [place] Exercise - Final/Discharge Physician Prescribed Exercise Modalities: Treadmill, Rower, [employer] AD-7, SciFit Stepper, SciFit Pro- II Ergometer and SciFit Lateral Filling Station Equipment Mechanic Frequency: 3x/week for 12 weeks [36 sessions] Intensity: 60-80% of age predicted maximum heart rate reserve Current METSs:: 3 Target Heart Rate:: 91-114 Nutrition - 30-Day Assessment Weight Mgt (Other Care) Height: 5 ft Weight:: 116 lb BMI: 22.6 Nutrition - 60-Day Assessment Weight Mgt (Other Care) Height: 5 ft Weight:: 116 lb BMI: 22.6 Core - 30-Day Assessment Tobacco Use Years Smokin (Pt stopped 3 months ago) Core - Final Assessment Hypertension Resting Blood Pressure:: 120/74 [place] [employer] Hypertension Guidelines Core - 60-Day Assessment Hypertension Resting Blood Pressure:: 120/74 [place] [employer] Hypertension Guidelines Psychosocial - 30-Day Assess Referral to Behavioral Health PS - Interventions: Yes: Attend Stress Management Classes Psychosocial - 60-Day Assess Referral to Behavioral Health PS - Interventions: Yes: Attend Stress Management Classes Psychosocial - 90-Day Assess Referral to Behavioral Health PS - Interventions: Yes: Attend Stress Management Classes Psychosocial - Final Assessmen Psychosocial Test phq-9 Severity See PHQ-9 Score: 5 Referral to Behavioral Health PS - Interventions: Yes: Attend Stress Management Classes Nutrition - 90-Day Assessment Weight Mgt (Other Care) Height: 5 ft Weight:: 116 lb BMI: 22.6 Nutrition - Final Assessment Program Goals Patient has diagnosis of Hyperlipidemia (ICD E78)?: Yes Weight Mgt (Other Care) Height: 5 ft Weight:: 116 lb BMI: 22.6
[2025-04-09 10:55] VITALS: BP 120/74; BMI 22.6
[2025-04-09 11:06] VITALS: BP 120/74; BMI 22.6
== END | disposition home or self-care (01) ==
PROVIDERS: PCP Family Medicine; Referring Provider Internal Medicine Cardiovascular Disease; Visit Provider Internal Medicine Cardiovascular Disease
DX: Z98.61 Coronary angioplasty status (principal)

== ENCOUNTER 2025-05-03 15:15 | Outpatient (RCR) | payer MEDICARE, SELFPAY ==
[2025-04-09 10:55] VITALS: BMI 22.6
== END 2025-05-03 23:59 ==
LOC: CR 15:15
PROVIDERS: PCP Family Medicine; Referring Provider Internal Medicine Cardiovascular Disease; Visit Provider Internal Medicine Cardiovascular Disease
DX: Z98.61 Coronary angioplasty status (principal)
CPT/HCPCS: 93798

== ENCOUNTER 2025-05-20 15:15 | Outpatient (RCR) | payer MEDICARE, SELFPAY ==
[2025-04-09 10:55] VITALS: BMI 22.6
--- NOTE | 2025-05-07 07:55 | CR.ITP_ITS ---
Exercise - Initial Assessment Visit Session #:: 8 Physician Prescribed Exercise Modalities: Treadmill, Rower and SciFit Stepper Nutrition - Initial Assessment Weight Mgt (Other Care) Height: 5 ft Weight:: 118 lb BMI: 23.0 Core - Initial Assessment Tobacco Use Years Smokin (Pt stopped 3 months ago) Psychosocial - Initial Assess Referral to Behavioral Health PS - Interventions: Yes: Attend Stress Management Classes Exercise - 30-day Assessment Visit Date of Eval: 05/07/25 Session #:: 8 Physician Prescribed Exercise Modalities: Treadmill, Rower and SciFit Stepper Frequency: 3x/week for 12 weeks [36 sessions] Intensity: 60-80% of age predicted maximum heart rate reserve Duration: 30 - 45 minutes Current METSs:: 3 Target Heart Rate:: 91-114 Current RPE:: 10-11 Maximum Excercise HR:: 73 Resting Blood Pressure: 98/60 Maximum Exercise Blood Pressure: 110/56 EKG Type: SB to NSR rare PVC Outcomes & Goals Goals:: Verbalizes understanding of THR, RPE & goal METS by session 6, Documents in home exercise log/reports 30 min aerobic 5 day/wk by DC, Demonstrates accurate pulse taking by DC and Other additional outcome/goals: see below Intervention & Plan Exercise Program Goals: Instruct on personal THR & RPE, Instruct on MET level & personal MET goal, Show patient to take own pulse /validate performance until accurate, Instruct on home exercise and Other additional plan/int Physical Activity Home Exercise Physical Activity - Home Exercise: Safe Exercise, Warm-up, Self-monitoring, Cool-Down, Home Exercise > 30 min Daily and Sitting Time <3 hours/daily Outcomes & Goals Outcomes/Goals: Demonstrates correct Warm-up/exercise Cool-Down (S3) if = 2.5 METs, Verbalizes symptoms of exercise intolerance by Session 3 (S3), Demonstrate safe equipment use (S3) & follows exercise prescrition (6) and Other: See below Intervention & Plan Plan/Intervention: Instruct warm-up & cool-down if exercising at > 2 METs, Instruct on symptoms of exercise intolerance & actions to take, Instruct & monitor on saf, Assess intial functional capacity & safety risk and Other See below 30-day Reassessments 30 day Reassessments:: Progressing Reassessment Notes & Comments:: Pt oriented to equipment. RPE explained to pt. Pt demonstrates understanding in his daily sessions. Exercise - 60-day Assessment Physician Prescribed Exercise Modalities: Treadmill, Rower and SciFit Stepper Exercise - 90-day Assessment Physician Prescribed Exercise Modalities: Treadmill, Rower and SciFit Stepper Exercise - Final/Discharge Physician Prescribed Exercise Modalities: Treadmill, Rower and SciFit Stepper Nutrition - 30-Day Assessment Program Goals Nutrition Program Goals Patient has diagnosis of Hyperlipidemia (ICD E78)?: Yes Visit Date of Eval: 05/07/25 Session #:: 8 Cholesterol/Lipids (Other Core Measures) Determine presence & major risk factors that modify LDL goal: Cigarette smoking, Hypertension or hypertensive medication, Low HDL cholesterol <40 mg/dL*, Family history of premature CHD in Male < 55 years: female <65 yearsFa and Age men > 45 years; women >/= 55 years Outcomes/Goals: Pt IDs own risk factors & lifestyle modifications by Session 10, Verbalizes symptoms of angina & response by session 3., Pt independently manages and Other Additional Outcomes/Goals: Intervention/Plan: Advocate for lipid panel cholesterol medication if applicable, Instruct on personal lipid levels & lipid goals/NCEP guidelines, Instruct on cholesterol and Other additional plan/int Diabetes (Other Core Measures) Diabetes Type: Not Applicable Weight Mgt (Other Care) Height: 5 ft Weight:: 118 lb BMI: 23.0 Diagnosis Overweight/Obesity BMI> 30% ICD-10 E66: No Diagnosis High BMI/Morbid Obesity BMI> 35% ICD-10 Z68: No Outcomes/Goals: Pt sets, maintains & shows weight loss goal & trend during rehab and Other additional outcomes/goals Intervention/Plan: Instruct on ideal BMI & set weight loss goal w/patient, Assist pt to ID & incorporate diet changes for weight loss by S9, Refer to Structured Weight Loss program as appropriate, Encourage goal of using 250- 300dcal per session for weight loss and Other additional plan/interventions Healthy Eating Habits Will attend diet classes:: Yes Outcomes/Goals:: Consume diet rich in vegs,fruits,whole grain/high fiber,fish,lean meat, Limit sat/trans fats,cholesterol & added salts & sugars and Other additional outcome/goals: Intervention/Plan:: Assess current eating habits and Other Additional plan/interventions 30-day Reassessments:: Progressing Reassessment Notes & Comments:: Pt is at a healthy weight. Pt is scheduled to attend nutrition classes with our library acquisitions technician. Heart healthy low sodium diet encouraged. Education Gave educational materials for:: Signs & symptoms of hypoglycemia, Signs & symptoms of hyperglycemia, Relate diabetes to coronary artery disease and Healthy eating Nutrition - 60-Day Assessment Weight Mgt (Other Care) Height: 5 ft Weight:: 118 lb BMI: 23.0 Core - 30-Day Assessment Visit Date of Eval: 05/07/25 Session #:: 8 Medication Compliance Preventative Medication(s):: Aspirin, Clopidogrel/P2Y12 inhibit, Statin/lipid and Beta sabra H/O mental health issues: depression, anxiety, or addiction?: Yes Doesn’t believe in the benefits of treatment?: No Believes medications are unnecessary or harmful?: No Has a concern about medication side effects?: No Expresses concern over the cost of medications?: No Outcomes/Goals: Verbalizes medications,desired effect & common side effects @ DC, Pt self-reports following medication regimen, Keeps card in wallet w/medications listed by DC and Other additional outcome/goals: Interventions/plans: Instruct on medication effects & side effects, Review medication list w/patient every two weeks, Instruct importance of taking meds as ordered & assist problem solving and Other additional Tobacco Use Tobacco Use: Cigarettes How many cigarettes do you smoke per day?: 20 Years Smokin (Pt stopped 3 months ago) Do you use smokeless tobacco?: No Outcomes/Goals: Smoking cessation achieved or maintained by discharge, Identify aids/strategies for achieving smoking cessation by session 6 and Other additional outcome/goals Interventions/plan: Instruct on effects of smoking & provide smoking cessation resource, Assist pt to set quit date & provide encouragement, Assist pt to develop strategies to achieve/maintain quit date, Assist pt w/nicotine replace ment & medication for cessation success and Other additional plan/interventions 30-day Reassessments:: Met Reassessment Notes & Comments:: Pt is now a nonsmoker Hypertension Hypertension Diagnosis:: Not Applicable Resting Blood Pressure:: 98/52 [place] [employer] Hypertension Guidelines Peak Exercise Blood Pressure:: 110/56 Outcomes/Goals: Able to verbalize/achieve optimal blood pressure <130/80, Incorporates diet changes & exercise for blood pressure control by DC and Other additional outcomes/goals Interventions/plan: Instruct on optimal blood pressure, hypertension & medications, Instruct on effects of sodium, alcohol, stress, exercise &hypertension and Other additional plan/interventions 30 day Reassessments:: Progressing Reassessment Notes & Comments:: Pt's BP's are within AHA normal limits. Will continue to monitor and report to pt's physician if necessary. Psychosocial - 30-Day Assess VIsit Date of Eval: 05/07/25 Session #:: 8 History of previous Mental disease:: Yes History of Emotional Disorders: Anxious (Pt is on medication for anxiety. Pt declines counseling at this time.) Psychosocial Test Tool Used:: [employer] QOL Cardiac and PHQ-9 Questionnaire phq-9 Severity See PHQ-9 Score: 5 Referral to Behavioral Health PS - Interventions: Yes: Attend Stress Management Classes Outcomes/Goals: See list Psychosocial Outcomes/Goals:: ID's personal stressors & 2 strategies to manage stress by discharge and Other Additional outcome/goals: Intervention/Plan: See List Interventions/Plan:: Assess stressors,coping strategies & signs of derpression on admission, Instruct/assist pt to develop coping & personal stress Mgt strategies, Refer to Behavioral Health if appropriate, Refer to Physician if appropriate, Instruct patient to recognize signs & symptoms of depression, Instruct patient to recog and Other additional plan/intervention 30-day Reassessments: 30 day Reassessments:: Progressing Reassessment Notes & Comments:: Pt denies any psychosocial issues at this time. Pt to attend stress management class. Will reassess every 30 days. Psychosocial - 60-Day Assess Referral to Behavioral Health PS - Interventions: Yes: Attend Stress Management Classes Outcomes/Goals: See list Psychosocial Outcomes/Goals:: ID's personal stressors & 2 strategies to manage stress by discharge and Other Additional outcome/goals: Psychosocial - 90-Day Assess Referral to Behavioral Health PS - Interventions: Yes: Attend Stress Management Classes Psychosocial - Final Assessmen Referral to Behavioral Health PS - Interventions: Yes: Attend Stress Management Classes Nutrition - 90-Day Assessment Weight Mgt (Other Care) Height: 5 ft Weight:: 118 lb BMI: 23.0 Nutrition - Final Assessment Weight Mgt (Other Care) Height: 5 ft Weight:: 118 lb BMI: 23.0
[2025-05-07 08:02] VITALS: BP 98/60
[2025-05-07 08:14] VITALS: BP 98/52; BMI 23.0
== END 2025-06-02 23:59 ==
LOC: CR 15:15
PROVIDERS: PCP Family Medicine; Referring Provider Internal Medicine Cardiovascular Disease; Visit Provider Internal Medicine Cardiovascular Disease
DX: Z98.61 Coronary angioplasty status (principal); Z95.5 Presence of coronary angioplasty implant and graft
CPT/HCPCS: 93798